=== PATIENT | female | born 1950 | race Caucasian/White ===

== ENCOUNTER 2022-08-16 17:28 | Inpatient (IN) ==
[2022-08-16] MEDS ORDERED: SODIUM CHLORIDE 0.9% 1000ML 1,000 ML IV STA (18:24)
[2022-08-16] MEDS ORDERED: LORazepam 2 MG/1 ML VIAL IV STA (18:26)
--- NOTE | 2022-08-16 18:28 | Emergency Department Note ---
Impression & Plan Acute UTI ADMIT ED Provider Note HPI: The patient is a 72-year-old female who presents emergency department with a chief complaint of rapid weight loss over the past month, nausea, weakness, dizziness, and tremulousness. Patient states that her symptoms have been ongo ing for the past month. She states that she has seen multiple providers previously for this but symptoms have continued. Patient is very anxious appearing on arrival, she states she has chest pain and shortness of breath but states that she "always" has chest pain or shortness of breath for many years. Patient states she does have a history of a thyroidectomy but has been taking her levothyroxine as prescribed. On arrival here to the ED the patient is hemodynamically stable, she is afebrile on presentation, she exhibits pressured speech, she is very anxious appearing, she is saturating well on room air on my initial assessment. ROS: - Per HPI *Outpatient medications and allergy history reviewed. *Pertinent external medical records reviewed. PE: General: Alert, cachectic appearing HEENT: Normocephalic, trachea midline Eyes: Extraocular eye movement is intact, no scleral erythema, bilateral exophthalmos noted Pulmonary: Clear to auscultation bilaterally, no wheezing Cardio: Regular rate and rhythm GI: Abdomen is soft to palpation : No suprapubic tenderness MSK: No evidence of trauma or malformation of the extremities, no edema Skin: No evidence of rash Neuro: Alert, no focal deficits Psychiatric: Cooperative property assessment monitor: (As interpreted by myself): - An order was placed for continuous cardiac monitoring - Patient was noted to be in sinus rhythm with rate of 90 EKG: (As interpreted by myself): Rate: 63 Rhythm: Sinus rhythm Intervals: MT interval 202 ms, otherwise within normal limits ST changes: No ST elevation Time: 1904 Interventions provided in ED: -IV fluid bolus, IV ceftriaxone, IV Ativan Differential Diagnosis: Hypothyroidism, anxiety attack, urinary tract infection, intra-abdominal mass/metastatic disease, acute bacterial pneumonia, acute CHF exacerbation, acute coronary syndrome, amongst other potential pathologies. Medical Decision Making: Shortly after the patient arrived IV was established lab work obtained, patient was maintained on engine monitor, lab work showed no leukocytosis, hemoglobin is normal at 14.8, platelet count also within normal limits, CMP does not show any critical findings, no acute kidney injury, total creatinine kinase level is elevated at 541, high-sensitivity troponin is slightly elevated at 17.5. TSH is also noted to be elevated at 24.7, free T4 is within normal limits. Urinalysis does show evidence of infection with nitrite positive and leukocyte esterase positive. Patient was placed on IV ceftriaxone and blood cultures were ordered. CT imaging of the head shows no acute process, CT imaging of the abdomen pelvis shows evidence of severe right-sided hydronephrosis however no obvious point of obstruction. No kidney stone is noted. Chest x-ray does not show any evidence of acute disease. Patient requested admission and given her lab abnormalities and urinary tract infection as well as CT imaging findings I thought this was reasonable. She was started on IV antibiotics and case was discussed with the on-call hospitalist for [facility], Dr. Aguirre, and the patient was placed for admission in stable condition. Consultants: HospitalistDr. Aguirre Disposition discussion held by myself with: Patient and at bedside Diagnosis: 1. Urinary tract infection, acute 2. Right-sided hydronephrosis on CT image 3. Rhabdomyolysis 4. Rapid weight loss 5. Elevated TSH 6. Elevated high-sensitivity troponin level, mild Disposition: Admission Donell Lofton DO Emergency Medicine Past Med/Surg History Medical History COPD (chronic obstructive pulmonary disease) Hypothyroid Vitamin D deficiency Social History Smoking Status: Never smoker Tobacco Type: Cigarettes Preferred Language: Croatian Feels Safe at Home: Yes Allergies Allergies Allergy/AdvReac Type Severity Reaction Status Date / Time morphine Allergy Unknown shock, Verified 08/16/22 21:19 dspnea Home Meds Home Medications Medication Instructions Recorded Confirmed levothyroxine 75 mcg tablet 75 mcg PO QAM 07/24/22 08/16/22 famotidine 40 mg tablet 40 mg PO HS 08/16/22 08/16/22 omeprazole 20 mg capsule,delayed 40 mg PO QAM 08/16/22 08/16/22 release Previous Rx's Medication Instructions Recorded dicyclomine 10 mg capsule 10 mg PO TID PRN abdominal pain 07/24/22 #20 caps Results & Data (ED) Vital Signs Vital Signs - 24 hr 08/16/22 17:33 08/16/22 20:06 08/16/22 19:24 Temperature 36.5 C Temperature Source Temporal Artery Scan Pulse Rate 63 64 Pulse Rate [Apical] 72 Pulse Rhythm Regular Respiratory Rate 20 18 Respiratory Effort / Characteristics Non-Labored Spontaneous Respiratory Depth Normal Blood Pressure 121/86 Blood Pressure [Right Arm] 152/85 H Blood Pressure Mean 97 Blood Pressure Mean [Right Arm] 107 Pulse Oximetry 98 Oxygen Delivery Method Room Air Sepsis Recent Fever Within 48 Hours No Sepsis New/Unexplained Change in Mental Status No Sepsis Action Taken by Nursing No Action Required 08/16/22 20:41 08/16/22 20:42 08/16/22 22:26 Temperature Temperature Source Pulse Rate 56 L Pulse Rate [Apical] 54 L 76 Pulse Rhythm Respiratory Rate 16 16 18 Respiratory Effort / Characteristics Respiratory Depth Blood Pressure Blood Pressure [Right Arm] 151/93 H 148/105 H Blood Pressure Mean Blood Pressure Mean [Right Arm] 112 119 Pulse Oximetry 99 99 100 Oxygen Delivery Method Room Air Room Air Room Air Sepsis Recent Fever Within 48 Hours Sepsis New/Unexplained Change in Mental Status Sepsis Action Taken by Nursing 08/16/22 23:23 Temperature Temperature Source Pulse Rate Pulse Rate [Apical] 85 Pulse Rhythm Respiratory Rate 16 Respiratory Effort / Characteristics Respiratory Depth Blood Pressure Blood Pressure [Right Arm] 155/104 H Blood Pressure Mean Blood Pressure Mean [Right Arm] 121 Pulse Oximetry 100 Oxygen Delivery Method Room Air Sepsis Recent Fever Within 48 Hours Sepsis New/Unexplained Change in Mental Status Sepsis Action Taken by Nursing Laboratory Data 08/16/22 19:31 08/16/22 19:31 Lab Results 08/16/22 08/16/22 08/16/22 Range/Units 19:31 19:31 19:31 WBC 5.83 (4.8-10.8) K/ul RBC 4.89 (4.20-5.40) M/uL Hgb 14.8 (12.0-16.0) g/dl Hct 42.8 (37.0-47.0) % MCV 87.5 (80.0-100.0) fL MCH 30.3 (25.0-34.0) pg MCHC 34.6 (32.0-36.0) g/dL RDW Std Deviation 42.5 (36.4-46.3) fL RDW Coeff of Minal 13.2 (11.5-14.5) % Plt Count 170 (130-400) K/uL MPV 9.9 (9.4-12.4) fL Immature Gran % (Auto) 0.2 % Neut % (Auto) 80.9 % Lymph % (Auto) 14.1 % [place] % (Auto) 4.6 % Eos % (Auto) 0.0 % Baso % (Auto) 0.2 % Neut # (Auto) 4.72 (1.40-6.50) K/uL Lymph # (Auto) 0.82 L (1.2-3.4) K/uL [place] # (Auto) 0.27 (0.11-0.59) K/uL Eos # (Auto) 0.00 (0-0.50) K/uL Baso # (Auto) 0.01 (0-0.2) K/uL Immature Gran # (Auto) 0.01 (0.01-0.20) K/uL PT 11.5 (9.0-12.0) Seconds INR 1.1 (0.9-1.1) Sodium (136-145) mmol/L Potassium (3.5-5.1) mmol/L Chloride (98-107) mmol/L Carbon Dioxide (21-32) mmol/L Anion Gap (3-11) BUN (6-23) mg/dl Creatinine (0.6-1.2) mg/dl Est Cr Clr Drug Dosing ml/min Est GFR ( Amer) ml/min Est GFR (Non-Af Amer) ml/min BUN/Creatinine Ratio (10-20) Glucose (70-99(Fasting)) mg/dl Lactate (0.4-2.0) mmol/L Calcium (8.6-10.3) mg/dl Total Bilirubin (0.2-1.0) mg/dl AST (13-39) U/L ALT (7-52) U/L Alkaline Phosphatase (34-104) U/L Total Creatine Kinase (26-192) U/L Troponin I High Sens (0-14) pg/ml Total Protein (6.0-8.3) gm/dl Albumin (3.4-5.0) gm/dl Globulin (2.5-4.0) gm/dl Albumin/Globulin Ratio (0.9-2) Lipase (11-82) U/L TSH 24.787 H (0.300-4.500) uIu/ml Free T4 0.92 (0.61-1.60) ng/dl Urine Color Urine Appearance (Clear) Urine pH (4.5-7.5) Ur Specific Backus (1.000-1.030) Urine Protein (Negative) Urine Glucose (UA) (Negative) Urine Ketones (Negative) Urine Blood (Negative) Urine Nitrite (Negative) Urine Bilirubin (Negative) Urine Urobilinogen (Negative) Ur Leukocyte Esterase (Negative) Urine WBC (Auto) (0-5) /hpf Urine RBC (Auto) (0-4) /hpf U Hyaline Cast (Auto) (0-5) /lpf U Epithel Cells (Auto) (0-5) /lpf Urine Bacteria (Auto) (Negative) Urine Crystals Triple Phos Crystals (None Prsent) SARS-CoV-2 (PCR) (Negative) Influenza Type A (PCR) (Neg) Influenza Type B (PCR) (Neg) RSV (RT-PCR) (Neg) 08/16/22 08/16/22 08/16/22 Range/Units 19:31 19:31 19:39 WBC (4.8-10.8) K/ul RBC (4.20-5.40) M/uL Hgb (12.0-16.0) g/dl Hct (37.0-47.0) % MCV (80.0-100.0) fL MCH (25.0-34.0) pg MCHC (32.0-36.0) g/dL RDW Std Deviation (36.4-46.3) fL RDW Coeff of Minal (11.5-14.5) % Plt Count (130-400) K/uL MPV (9.4-12.4) fL Immature Gran % (Auto) % Neut % (Auto) % Lymph % (Auto) % [place] % (Auto) % Eos % (Auto) % Baso % (Auto) % Neut # (Auto) (1.40-6.50) K/uL Lymph # (Auto) (1.2-3.4) K/uL [place] # (Auto) (0.11-0.59) K/uL Eos # (Auto) (0-0.50) K/uL Baso # (Auto) (0-0.2) K/uL Immature Gran # (Auto) (0.01-0.20) K/uL PT (9.0-12.0) Seconds INR (0.9-1.1) Sodium 139 (136-145) mmol/L Potassium 3.8 (3.5-5.1) mmol/L Chloride 103 (98-107) mmol/L Carbon Dioxide 29 (21-32) mmol/L Anion Gap 7 (3-11) BUN 32 H (6-23) mg/dl Creatinine 0.89 (0.6-1.2) mg/dl Est Cr Clr Drug Dosing 37.3 ml/min Est GFR ( Amer) 75.0 ml/min Est GFR (Non-Af Amer) 64.7 ml/min BUN/Creatinine Ratio 36.0 H (10-20) Glucose 72 (70-99(Fasting)) mg/dl Lactate 0.9 (0.4-2.0) mmol/L Calcium 9.1 (8.6-10.3) mg/dl Total Bilirubin 1.5 H (0.2-1.0) mg/dl AST 37 (13-39) U/L ALT 38 (7-52) U/L Alkaline Phosphatase 39 (34-104) U/L Total Creatine Kinase 541 H (26-192) U/L Troponin I High Sens 17.5 H (0-14) pg/ml Total Protein 6.2 (6.0-8.3) gm/dl Albumin 4.0 (3.4-5.0) gm/dl Globulin 2.2 L (2.5-4.0) gm/dl Albumin/Globulin Ratio 1.8 (0.9-2) Lipase 11 (11-82) U/L TSH (0.300-4.500) uIu/ml Free T4 (0.61-1.60) ng/dl Urine Color Yellow Urine Appearance Cloudy A (Clear) Urine pH 5.0 (4.5-7.5) Ur Specific Backus > 1.045 H (1.000-1.030) Urine Protein Trace H (Negative) Urine Glucose (UA) Negative (Negative) Urine Ketones 1+ H (Negative) Urine Blood 2+ H (Negative) Urine Nitrite Positive A (Negative) Urine Bilirubin Negative (Negative) Urine Urobilinogen Negative (Negative) Ur Leukocyte Esterase 1+ H (Negative) Urine WBC (Auto) 10-30 H (0-5) /hpf Urine RBC (Auto) 0-4 (0-4) /hpf U Hyaline Cast (Auto) 5-10 H (0-5) /lpf U Epithel Cells (Auto) 5-10 H (0-5) /lpf Urine Bacteria (Auto) 2+ H (Negative) Urine Crystals Not Reportable Triple Phos Crystals Present A (None Prsent) SARS-CoV-2 (PCR) (Negative) Influenza Type A (PCR) (Neg) Influenza Type B (PCR) (Neg) RSV (RT-PCR) (Neg) 08/16/22 Range/Units 21:55 WBC (4.8-10.8) K/ul RBC (4.20-5.40) M/uL Hgb (12.0-16.0) g/dl Hct (37.0-47.0) % MCV (80.0-100.0) fL MCH (25.0-34.0) pg MCHC (32.0-36.0) g/dL RDW Std Deviation (36.4-46.3) fL RDW Coeff of Minal (11.5-14.5) % Plt Count (130-400) K/uL MPV (9.4-12.4) fL Immature Gran % (Auto) % Neut % (Auto) % Lymph % (Auto) % [place] % (Auto) % Eos % (Auto) % Baso % (Auto) % Neut # (Auto) (1.40-6.50) K/uL Lymph # (Auto) (1.2-3.4) K/uL [place] # (Auto) (0.11-0.59) K/uL Eos # (Auto) (0-0.50) K/uL Baso # (Auto) (0-0.2) K/uL Immature Gran # (Auto) (0.01-0.20) K/uL PT (9.0-12.0) Seconds INR (0.9-1.1) Sodium (136-145) mmol/L Potassium (3.5-5.1) mmol/L Chloride (98-107) mmol/L Carbon Dioxide (21-32) mmol/L Anion Gap (3-11) BUN (6-23) mg/dl Creatinine (0.6-1.2) mg/dl Est Cr Clr Drug Dosing ml/min Est GFR ( Amer) ml/min Est GFR (Non-Af Amer) ml/min BUN/Creatinine Ratio (10-20) Glucose (70-99(Fasting)) mg/dl Lactate (0.4-2.0) mmol/L Calcium (8.6-10.3) mg/dl Total Bilirubin (0.2-1.0) mg/dl AST (13-39) U/L ALT (7-52) U/L Alkaline Phosphatase (34-104) U/L Total Creatine Kinase (26-192) U/L Troponin I High Sens (0-14) pg/ml Total Protein (6.0-8.3) gm/dl Albumin (3.4-5.0) gm/dl Globulin (2.5-4.0) gm/dl Albumin/Globulin Ratio (0.9-2) Lipase (11-82) U/L TSH (0.300-4.500) uIu/ml Free T4 (0.61-1.60) ng/dl Urine Color Urine Appearance (Clear) Urine pH (4.5-7.5) Ur Specific Backus (1.000-1.030) Urine Protein (Negative) Urine Glucose (UA) (Negative) Urine Ketones (Negative) Urine Blood (Negative) Urine Nitrite (Negative) Urine Bilirubin (Negative) Urine Urobilinogen (Negative) Ur Leukocyte Esterase (Negative) Urine WBC (Auto) (0-5) /hpf Urine RBC (Auto) (0-4) /hpf U Hyaline Cast (Auto) (0-5) /lpf U Epithel Cells (Auto) (0-5) /lpf Urine Bacteria (Auto) (Negative) Urine Crystals Triple Phos Crystals (None Prsent) SARS-CoV-2 (PCR) NEGATIVE (Negative) Influenza Type A (PCR) Negative (Neg) Influenza Type B (PCR) Negative (Neg) RSV (RT-PCR) Negative (Neg) Administered Medications Discontinued Medications Sodium Chloride (Nss 1000ml) 1,000 mls @ 999 mls/hr IV .Q1H1M STA Stop: 08/16/22 19:24 Last Infusion: 08/16/22 21:43 Dose: 0 mls/hr Documented By: Admin: 08/16/22 20:36 Dose: 999 mls/hr Documented By: BRANDON Ceftriaxone Sodium 1,000 mg/ (Dextrose) 50 mls @ 100 mls/hr IV NOW STA Stop: 08/16/22 22:13 Last Infusion: 08/16/22 23:21 Dose: 0 mls/hr Documented By: Admin: 08/16/22 22:23 Dose: 100 mls/hr Documented By: BRANDON Sodium Chloride (Nss 1000ml) 1,000 mls @ 999 mls/hr IV .Q1H1M ONE Stop: 08/16/22 22:45 Last Infusion: 08/16/22 23:21 Dose: 0 mls/hr Documented By: Admin: 08/16/22 21:59 Dose: 999 mls/hr Documented By: BRANDON Ioversol (Optiray 320 100ml) 90 ml IV ONCE ONE Stop: 08/16/22 21:35 Last Admin: 08/16/22 21:36 Dose: 90 ml Documented By: PADMINI Levothyroxine Sodium (Levothyroxine Sodium 75 Mcg Tablet) 75 mcg PO ONCE ONE Stop: 08/16/22 21:47 Last Admin: 08/16/22 21:48 Dose: Not Given Documented By: BRANDON Lorazepam (Lorazepam 2 Mg/1 Ml Vial) 0.5 mg IV NOW STA Stop: 08/16/22 18:27 Last Admin: 08/16/22 19:27 Dose: Not Given Documented By: BRANDON Imaging Data Radiologist's Impression: Abdomen/Pelvis CT 08/16/22 18:24 Exam(s): CT ABDOMEN + PELVIS With Contrast IV Amt: 90 ML OPTIRAY 320 EXAM: CT Abdomen and Pelvis With Intravenous Contrast CLINICAL HISTORY: Reason for exam: nausea, weight loss. TECHNIQUE: Axial computed tomography images of the abdomen and pelvis with intravenous contrast. CTDI is 35.37 mGy and DLP is 546.36 mGy-cm. Automated exposure control was utilized for the study. A dose lowering technique was utilized adhering to the principles of ALARA. CONTRAST: Patient received 90 ML OPTIRAY 320 of IV contrast COMPARISON: No relevant prior studies available. FINDINGS: Lung bases: Unremarkable. No mass. No consolidation. ABDOMEN: Liver: Mild periportal edema. Correlate for overhydration (the IVC is distended) versus hepatitis. Gallbladder and bile ducts: Unremarkable. No calcified stones. No ductal dilation. Pancreas: Unremarkable. No mass. No ductal dilation. Spleen: Unremarkable. No splenomegaly. Adrenals: Unremarkable. No mass. Kidneys and ureters: Severe right-sided hydronephrosis. No definite obstruction of the ureter. Consider CT urogram protocol for further evaluation, if clinically indicated. Stomach and bowel: Wall thickening of small bowel in the pelvis, correlate for enteritis. Diverticulosis, without acute diverticulitis. No small bowel obstruction. No free air. PELVIS: Appendix: No findings to suggest acute appendicitis. Bladder: Unremarkable. No mass. Reproductive: Unremarkable as visualized. ABDOMEN and PELVIS: Intraperitoneal space: See above. Bones/joints: Degenerative changes of the spine. No acute fracture. No dislocation. Soft tissues: See above. Vasculature: Atherosclerotic changes of the aorta. Lymph nodes: Unremarkable. No enlarged lymph nodes. IMPRESSION: 1. Mild periportal edema. Correlate for overhydration (the IVC is distended) versus hepatitis. 2. Severe right-sided hydronephrosis. No definite obstruction of the ureter. Consider CT urogram protocol for further evaluation, if clinically indicated. 3. Wall thickening of small bowel in the pelvis, correlate for enteritis. 4. Diverticulosis, without acute diverticulitis. No small bowel obstruction. No free air. Electronically signed by: Yvon Hastings MD 08/16/22 21:59 PM Chest X-Ray 08/16/22 18:25 XR chest 1V portable CLINICAL HISTORY: fatigue, weight loss TECHNIQUE: Single frontal radiograph of the chest was obtained. Comparison: Comparison is made to chest radiograph 08/04/2017 FINDINGS: No lines and tubes are seen. Calcified aortic knob is seen. The lungs are clear. No evidence of pleural effusion or pneumothorax. IMPRESSION: No acute chest disease. ACT 112: Negative or not required by law. Electronically signed by: Trent Woodruff M.D. 08/16/2022 7:[address] 08/16/22 18:26 Exam(s): CT HEAD Without Contrast EXAM: CT Head Without Intravenous Contrast CLINICAL HISTORY: Reason for exam: weakness, dizzy. TECHNIQUE: Axial computed tomography images of the head/brain without intravenous contrast. CTDI is 35.37 mGy and DLP is 546.36 mGy-cm. Automated exposure control was utilized for the study. A dose lowering technique was utilized adhering to the principles of ALARA. COMPARISON: No relevant prior studies available. FINDINGS: No acute intracranial hemorrhage. No midline shift or mass effect. The territorial obrien-white matter differentiation is maintained throughout. Age-related cerebral volume loss. Periventricular and subcortical white matter hypoattenuation, consistent with chronic microangiopathy. The visualized orbits appear grossly unremarkable. The calvarium is intact. The visualized paranasal sinuses and mastoid air cells are grossly clear. IMPRESSION: No acute intracranial hemorrhage, midline shift, or mass effect. Electronically signed by: Yvon Hastings MD 08/16/22 21:55 PM Discharge Plan Visit Data Chief Complaint: Dizziness Stated Complaint: REF BY DOC, DIZZINESS,OFF BALANCE, BLURRED VISION ED Provider: Donell Lofton Discharge Problem: Acute UTI Forms Stand Alone Forms: Counts Include [facility] Prescriptions Prescriptions: No Action famotidine 40 mg tablet 40 mg PO HS omeprazole 20 mg capsule,delayed release(DR/EC) 40 mg PO QAM levothyroxine 75 mcg tablet 75 mcg PO QAM dicyclomine 10 mg capsule 10 mg PO TID PRN (Reason: abdominal pain) Qty: 20 0RF Referrals Referrals: Hayes Maurer DO [Primary Care Provider] -
--- NOTE | 2022-08-16 19:13 | XRay Report ---
XR chest 1V portable CLINICAL HISTORY: fatigue, weight loss TECHNIQUE: Single frontal radiograph of the chest was obtained. Comparison: Comparison is made to chest radiograph 08/04/2017 FINDINGS: No lines and tubes are seen. Calcified aortic knob is seen. The lungs are clear. No evidence of pleur al effusion or pneumothorax. IMPRESSION: No acute chest disease. ACT 112: Negative or not required by law. Electronically signed by: Trent Woodruff M.D. 08/16/2022 7:12 PM
[2022-08-16 19:51] LABS: Basophils # (auto) 0.01 K/uL (0-0.2); Basophils % (auto) 0.2 %; Hematocrit (blood only) 42.8 % (37.0-47.0); Hemoglobin 14.8 g/dl (12.0-16.0); Immature Granulocytes # (auto) 0.01 K/uL (0.01-0.20); Immature Granulocytes % (auto) 0.2 %; Lymphocytes # (auto) 0.82 K/uL (1.2-3.4); Lymphocytes % (auto) 14.1 %; Mean Corpuscular Hemoglobin 30.3 pg (25.0-34.0); Mean Corpuscular Hgb Conc 34.6 g/dL (32.0-36.0); Mean Corpuscular Volume 87.5 fL (80.0-100.0); Mean Platelet Volume 9.9 fL (9.4-12.4); Monocytes # (auto) 0.27 K/uL (0.11-0.59); Monocytes % (auto) 4.6 %; Neutrophils # (auto) 4.72 K/uL (1.40-6.50); Neutrophils % (auto) 80.9 %; Platelet Count 170 K/uL (130-400); RDW Coefficient of Variation 13.2 % (11.5-14.5); RDW Standard Deviation 42.5 fL (36.4-46.3); Red Blood Count 4.89 M/uL (4.20-5.40); White Blood Count 5.83 K/ul (4.8-10.8)
[2022-08-16 20:07] LABS: Appearance Urine Cloudy (Clear); Bacteria Urine Automated 2+ (Negative); Bilirubin Urine Negative (Negative); Blood Urine 2+ (Negative); Color Urine Yellow; Glucose Urine UA Negative (Negative); Ketones Urine 1+ (Negative); Leukocyte Esterase Urine 1+ (Negative); Nitrite Urine Positive (Negative); Protein Urine Trace (Negative); RBC Urine Automated 0-4 /hpf (0-4); Specific Gravity Urine > 1.045 (1.000-1.030); Urobilinogen Urine Negative (Negative)
[2022-08-16 20:08] LABS: Albumin Globulin Ratio 1.8 (0.9-2); Bilirubin,Total 1.5 mg/dl (0.2-1.0); Calcium 9.1 mg/dl (8.6-10.3); Creatinine Clr Calc Pharmacy 37.3 ml/min; Est GFR (Non-African American) 64.7 ml/min; Globulin 2.2 gm/dl (2.5-4.0); Potassium 3.8 mmol/L (3.5-5.1); Total Protein 6.2 gm/dl (6.0-8.3)
[2022-08-16 20:15] LABS: Troponin I High Sensitivity 17.5 pg/ml (0-14)
[2022-08-16 20:21] LABS: INR 1.1 (0.9-1.1); Prothrombin Time 11.5 Seconds (9.0-12.0)
[2022-08-16 20:23] LABS: Thyroid Stimulating Hormone 24.787 uIu/ml (0.300-4.500)
[2022-08-16 20:31] LABS: Triple Phosphate Crystal Urine Present (None Prsent)
[2022-08-16 20:58] LABS: T4 Free Thyroxine 0.92 ng/dl (0.61-1.60)
[2022-08-16] MEDS ORDERED: OPTIRAY 320 100ml IV ONE (21:34)
[2022-08-16] MEDS ORDERED: cefTRIAXone SODIUM 1,000 MG in DEXTROSE 5% AD-VAN 50 ML IV STA (21:44)
[2022-08-16] MEDS ORDERED: SODIUM CHLORIDE 0.9% 1000ML 1,000 ML IV ONE (21:45)
[2022-08-16] MEDS ORDERED: LEVOTHYROXINE SODIUM 75 MCG TABLET PO ONE (21:46)
--- NOTE | 2022-08-16 21:56 | CT Scan Report ---
Exam(s): CT HEAD Without Contrast EXAM: CT Head Without Intravenous Contrast CLINICAL HISTORY: Reason for exam: weakness, dizzy. TECHNIQUE: Axial computed tomography images of the head/brain without intravenous contrast. CTDI is 35.37 mGy and DLP is 546.36 mGy-cm. Automated exposure control was utilized for the study. A dose lowering technique was utilized adhering to the principles of ALARA. COMPARISON: No relevant prior studies available. FINDINGS: No acute intracranial hemorrhage. No midline shift or mass effect. The territorial obrien-white matter differentiation is maintained throughout. Age-related cerebral volume loss. Periventricular and subcortical white matter hypoattenuation, consistent with chronic microangiopathy. The visualized orbits appear grossly unremarkable. The calvarium is intact. The visualized paranasal sinuses and mastoid air cells are grossly clear. IMPRESSION: No acute intracranial hemorrhage, midline shift, or mass effect. Electronically signed by: Yvon Hastings MD 08/16/22 21:55 PM
--- NOTE | 2022-08-16 22:00 | CT Scan Report ---
Exam(s): CT ABDOMEN + PELVIS With Contrast IV Amt: 90 ML OPTIRAY 320 EXAM: CT Abdomen and Pelvis With Intravenous Contrast CLINICAL HISTORY: Reason for exam: nausea, weight loss. TECHNIQUE: Axial computed tomography images of the abdomen and pelvis with intravenous contrast. CTDI is 35.37 mGy and DLP is 546.36 mGy-cm. Automated exposure control was utilized for the study. A dose lowering technique was utilized adhering to the principles of ALARA. CONTRAST: Patient received 90 ML OPTIRAY 320 of IV contrast COMPARISON: No relevant prior studies available. FINDINGS: Lung bases: Unremarkable. No mass. No consolidation. ABDOMEN: Liver: Mild periportal edema. Correlate for overhydration (the IVC is distended) versus hepatitis. Gallbladder and bile ducts: Unremarkable. No calcified stones. No ductal dilation. Pancreas: Unremarkable. No mass. No ductal dilation. Spleen: Unremarkable. No splenomegaly. Adrenals: Unremarkable. No mass. Kidneys and ureters: Severe right-sided hydronephrosis. No definite obstruction of the ureter. Consider CT urogram protocol for further evaluation, if clinically indicated. Stomach and bowel: Wall thickening of small bowel in the pelvis, correlate for enteritis. Diverticulosis, without acute diverticulitis. No small bowel obstruction. No free air. PELVIS: Appendix: No findings to suggest acute appendicitis. Bladder: Unremarkable. No mass. Reproductive: Unremarkable as visualized. ABDOMEN and PELVIS: Intraperitoneal space: See above. Bones/joints: Degenerative changes of the spine. No acute fracture. No dislocation. Soft tissues: See above. Vasculature: Atherosclerotic changes of the aorta. Lymph nodes: Unremarkable. No enlarged lymph nodes. IMPRESSION: 1. Mild periportal edema. Correlate for overhydration (the IVC is distended) versus hepatitis. 2. Severe right-sided hydronephrosis. No definite obstruction of the ureter. Consider CT urogram protocol for further evaluation, if clinically indicated. 3. Wall thickening of small bowel in the pelvis, correlate for enteritis. 4. Diverticulosis, without acute diverticulitis. No small bowel obstruction. No free air. Electronically signed by: Yvon Hastings MD 08/16/22 21:59 PM
[2022-08-16 22:45] LABS: Influenza A virus by PCR Negative (Neg); Influenza B virus by PCR Negative (Neg); RSV by PCR Negative (Neg); SARS CoV2 RNA(COVID-19) Ceph NEGATIVE (Negative)
[2022-08-17] MEDS ORDERED: ACETAMINOPHEN 325 MG TAB PO PRN (00:56)
[2022-08-17] MEDS ORDERED: NITROGLYCERIN SL 0.4 MG/TAB TAB SL PRN (00:56)
[2022-08-17] MEDS ORDERED: DICYCLOMINE HCL 10 MG CAP PO PRN (00:56)
[2022-08-17] MEDS: SODIUM CHLORIDE 0.9% 1000ML 1,000 ML IV SCH ×2 (01:06→10:57)
--- NOTE | 2022-08-17 01:56 | History and Physical Report ---
DATE OF ADMISSION: 08/16/2022. CHIEF COMPLAINT: Dizziness, falls, numbness in the hands and legs. HISTORY OF PRESENT ILLNESS: A 72-year-old female with past medical history significant for hypothyroidism, COPD, pulmonary hypertension, osteoporosis, history of positive colorectal cancer screening using Cologuard test, history of colon polyps, had colonoscopy in 2017 for positive test and at that time it was okay and planned to repeat colonoscopy in 5 years. Comes because the patient says since last 1 month, she is losing lot of weight and she is having poor appetite and numbness in the hands and legs and decreased sensation from the waist down and also she says on and off constipation and diarrhea and when she has diarrhea, she is sometimes having no control, and normal bladder movements, no bladder incontinence. She is feeling dizzy. Because she could not feel much of the feet, so she is falling frequently, sometimes crawls on the steps. As she was not getting better and does not know what is going on, she came to the hospital. She was seen by PCP on 07/28/2022 for abdominal pain and weight loss. ad EGD recently 07/19/22 done, which showed grade III reflux esophagitis and also signs of gastritis. She was given Carafate 1 gram 4 times daily, omeprazole 40 mg p.o. daily. She had CTA abd/pelvis on 08/16/22to rule out SMA syndrome,, the results are not back yet. Also plan for urology consult because of right kidney pelvocaliectasis. The patient says since last 1 week, she did not smoke, denies any alcohol use. She also had CT chest in June and it was unremarkable. The patient is worried about something going on and she wants to come back to normal. Appetite is poor. Denies any headache. The vision is okay. No runny nose, no sore throat. Occasional cough and when she has cough and she brings phlegm, she feels short of breath. Denies any earaches. No nausea, no abdominal pain. Currently resting comfortably. Somewhat upset because of this weight loss and became very thin and frail. Hemodynamically stable. ALLERGIES: MORPHINE, NEOMYCIN. PAST MEDICAL HISTORY: As mentioned above. PAST SURGICAL HISTORY: Colonoscopy with biopsy, EGD, EGD with biopsy, laparoscopy of pelvis, removal of thyroid gland, spinal fusion surgery. MEDICATIONS: The patient is on dicyclomine 10 mg p.o. t.i.d. p.r.n., famotidine 40 mg p.o. at bedtime, levothyroxine 75 mcg p.o. daily, omeprazole 40 mg p.o. daily. FAMILY HISTORY: Significant for paternal aunt has breast cancer; mother had uterine cancer, hypothyroidism, Crohn's disease; father had hypertension; sister has rheumatoid arthritis. SOCIAL HISTORY: . Smokes half pack a day for the last 37 years, says quit about week ago. Denies any alcohol use. No drug use. REVIEW OF SYSTEMS: As per HPI. Rest of the review of systems is negative. PHYSICAL EXAMINATION: GENERAL: The patient is thin and frail, not in acute distress. VITAL SIGNS: Temperature 36.5, pulse 72, respiratory rate 16, blood pressure 144/99, oxygen 97% on room air. HEENT: Pupils equal, round and reactive to light. Oral mucosa moist. NECK: No JVD. No neck masses. CARDIOVASCULAR: S1 and S2 heard. Regular rate and rhythm. No murmur, no gallop. RESPIRATORY SYSTEM: Normal AP diameter. No accessory muscle use. No wheezing or crackles. ABDOMEN: Soft, bowel sounds present, nontender, no distention. CENTRAL NERVOUS SYSTEM: Alert and oriented. Speech is clear. No facial droop. Obeys simple commands. Power 2/5 in upper extremities and 1/5 in lower extremities. Sensation decreased in lower extremities. EXTREMITIES: No edema, no erythema. LABORATORY DATA: WBC 5.8, hemoglobin 14.8, hematocrit 42.8, platelets 170. PT 11.5, INR 1.5. Sodium 139, potassium 3.8, chloride 103, bicarbonate 29, BUN 32, creatinine 0.8, serum glucose 75. Lactate 0.9, calcium 9.1, total bilirubin 1.5, AST 37, ALT 38, alkaline phosphatase 39, total creatine kinase 541. Troponin I high sensitivity 17.5. Lipase 11, TSH 24.8, free T4 of 0.92. Urinalysis positive for nitrite, +1 leukocyte esterase, +2 bacteria. SARS-CoV-2 rapid test negative. Influenza A and B PCR negative. RSV PCR negative. IMAGING DATA: CT of the head without contrast shows no acute findings. Chest x-ray, no acute disease in the chest. CT abdomen and pelvis with IV contrast shows some mild periportal edema. Correlate for overhydration versus hepatitis. Severe right-sided hydronephrosis. Wall thickening of small bowel in the pelvis, correlate for enteritis. Diverticulosis without acute diverticulitis, small bowel obstruction. EKG: Sinus rhythm with marked sinus arrhythmia at a rate of 53, nonspecific T- wave abnormalities. ASSESSMENT AND PLAN: This is a 72-year-old female who presents with ongoing weight loss since last about a month, numbness in the hands and feet and also some decreased sensation from waist down and falling frequently and weight loss. 1. Dizziness: Decreased sensation in the extremities, numbness in the hands and feet and decreased sensation below the waist. Falls frequently. CT of the head is okay. Will get neuro evaluation . PT/OT. Closely monitor in the hospital. 2. Weight loss, poor appetite: Labs look okay. Thyroid function is okay. CT abdomen and pelvis was done at [facility] system just today for rule out of SMA syndrome. Results are not back, will follow the results. Periportal edema on the CT scan done in the ER. Recently EGD was done, which showed grade III esophagitis. On omeprazole. Will consult GI for further recommendations. 3. Urinary tract infection: Placed on Rocephin. Follow the cultures. 4. Mild elevation of troponin, mostly demand ischemia: Follow the repeat labs. 5. Mild elevation of creatine kinase: Started on fluids. Will follow the repeat labs. 6. Hypothyroidism: History of thyroidectomy. On levothyroxine. TSH is higher at 24, but free T4 is normal. 7. History of chronic obstructive pulmonary disease: Tobacco abuse. Says quit smoking about a week ago. Currently stable. It looks like she is getting yearly CT scan of the chest, last one was done in June, which was unremarkable. 8. Deep venous thrombosis prophylaxis: Heparin subcutaneously. DISPOSITION: Closely monitor in the med tele. PT/OT prior to discharge. Social service to help with discharge planning. Job ID: [id number] [facility]
[2022-08-17] MEDS: LEVOTHYROXINE SODIUM 75 MCG TABLET PO SCH (05:58)
[2022-08-17 07:13] LABS: Basophils # (auto) 0.02 K/uL (0-0.2); Basophils % (auto) 0.3 %; Eosinophils # (auto) 0.05 K/uL (0-0.50); Eosinophils % (auto) 0.9 %; Hematocrit (blood only) 40.7 % (37.0-47.0); Hemoglobin 14.3 g/dl (12.0-16.0); Immature Granulocytes # (auto) 0.01 K/uL (0.01-0.20); Immature Granulocytes % (auto) 0.2 %; Lymphocytes # (auto) 1.09 K/uL (1.2-3.4); Lymphocytes % (auto) 18.9 %; Mean Corpuscular Hemoglobin 30.1 pg (25.0-34.0); Mean Corpuscular Hgb Conc 35.1 g/dL (32.0-36.0); Mean Corpuscular Volume 85.7 fL (80.0-100.0); Mean Platelet Volume 9.7 fL (9.4-12.4); Monocytes # (auto) 0.34 K/uL (0.11-0.59); Monocytes % (auto) 5.9 %; Neutrophils # (auto) 4.27 K/uL (1.40-6.50); Neutrophils % (auto) 73.8 %; Platelet Count 167 K/uL (130-400); RDW Standard Deviation 39.9 fL (36.4-46.3); Red Blood Count 4.75 M/uL (4.20-5.40); White Blood Count 5.78 K/ul (4.8-10.8)
[2022-08-17 07:27] LABS: BUN Creatinine Ratio 32.9 (10-20); Calcium 7.9 mg/dl (8.6-10.3); Creatinine Clr Calc Pharmacy 47.5 ml/min; Est GFR (African American) 100.3 ml/min; Est GFR (Non-African American) 86.6 ml/min; Magnesium 1.9 mg/dl (1.7-2.4); Potassium 3.1 mmol/L (3.5-5.1)
[2022-08-17 07:33] LABS: Troponin I High Sensitivity 22.1 pg/ml (0-14)
[2022-08-17] MEDS: HEPARIN SOD 5,000 UNIT/0.5 ML VIAL SQ SCH ×2 (08:28→21:44)
[2022-08-17] MEDS ORDERED: POTASSIUM CHLORIDE CRTAB 20 MEQ TABCR PO STA (08:53)
[2022-08-17] MEDS ORDERED: PANTOprazole 40 MG TAB PO SCH (09:00)
[2022-08-17] MEDS: POTASSIUM CHLORIDE / WTR 10 MEQ/100 ML PLCT IV SCH ×4 (09:31→13:52)
--- NOTE | 2022-08-17 09:47 | Gastrointestinal Consultation ---
Date of Consultation August 17, 2022 Assessment & Plan (1) Generalized weakness: 72 year old female w/ history of COPD, pulmonary HTN and others below admitted with abd pain, weakness, weight loss. Tbili 1.5 w/ normal transaminases, lipase normal and CBC unremarkable. CT w/ mild periportal edema, severe right-sided hydronephrosis, wall thickening of small bowel in the pelvis/enteritis, diverticulosis, without acute diverticulitis Consider repeat TSH, management per primary team Weakness, numbness/tingling, management per primary team Elevated Tbili, periportal edema - Acute hepatitis panel Weight loss, bloating, change in BM - EGD 2022 reviewed - CT 2022 reviewed - OP CTA pending - Recommend colonoscopy - She will consider this - Last colonoscopy 2017 after a positive cologuard - Was not able to tolerate prep - Offers sutab but unable to swallow pills We appreciate assistance in the management of any serological abnormality and corrections to include: hemoglobin >7, INR <2, platelets >50,000, potassium levels >3.5 but <5.3, and sodium levels within 5 points of the reference range prior to endoscopic evaluation. Thank you for allowing us to participate in the care of this patient. Please call with any acute changes, questions or concerns. Please see addendum below with additional recommendation from my supervising physician. Supervising Physician Co-Signing Physician Notes Attending attestation I have seen, examined this patient, and agree with the findings and above by our mid-level provider FARTUN Villarreal, with the following additions: - Adm with neurological c/o. Reynaulds - TSH is dramatically high - Periportal edema non-specific - Recent EGD May with esophagitis - Would eval for rheum/endocrine causes of poor appetite/anorexia - Colonoscopy as oupt for weight loss History of Present Illness Reason for Consultation: weight loss, abnormal CT Requesting Physician: Steve Attending Physician: Aiyana Wilson MD History of Present Illness 72 year old female w/ history of COPD, pulmonary HTN and others below admitted with abd pain, weakness, weight loss - GI asked to evaluate. Pt notes that for about 1-2 months has had some change in BM, constipation, post-prandial bloating/fullness and decreased appetite. This has been associated with progressive weakness, fatigue. Has also had weight loss. Denies any black/bloody BMs. No report of vomiting or previous episodes of hematemesis or coffee ground emesis. She was seen as an OP by GI - had a CTA pending to rule out SMA. Report is still in process. Tmax 117 Current weight 91 CTAP 08/2022: Mild periportal edema. Correlate for overhydration (the IVC is distended) versus hepatitis. Severe right-sided hydronephrosis. No definite obstruction of the ureter. Consider CT urogram protocol for further evaluation, if clinically indicated.. Wall thickening of small bowel in the pelvis, correlate for enteritis. Diverticulosis, without acute diverticulitis. No small bowel obstruction. No free air. CTAP 07/2022: Malpositioned right kidney with pelvocaliectasis. Hydronephrosis is considered less likely. No acute abnormalities. EGD 2022: Sam Grade III reflux esophagitis. - Erythematous mucosa in the stomach. Biopsied. - Normal examined duodenum. Colonoscopy 2018: Non-thrombosed external hemorrhoids found on digital rectal exam. - The examined portion of the ileum was normal. - Moderate diverticulosis in the entire examined colon. - Internal hemorrhoids. - The examination was otherwise normal. - No specimens collected. Cologuard 2018: positive Colonoscopy 2007: Five 2 to 3 mm polyps in the distal sigmoid colon. Resected and retrieved. - No endoscopic evidence for IBD, biopsied - Moderate left sided diverticulosis EGD 2007: Mild duodenitis. - Bilious gastric fluid. Suspiscious for gastroparesis. 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 Biopsied for H Pylori. - Small hiatus hernia. - Normal esophagus. Family history of GI malignancy: mom with colon cancer in her 80's Allergies Allergy/AdvReac Type Severity Reaction Status Date / Time morphine Allergy Unknown shock, Verified 08/16/22 21:19 dspnea Home Medications Medication Instructions Recorded Confirmed Type dicyclomine 10 mg capsule 10 mg PO TID PRN abdominal pain 07/24/22 08/16/22 Rx #20 caps levothyroxine 75 mcg tablet 75 mcg PO QAM 07/24/22 08/16/22 History famotidine 40 mg tablet 40 mg PO HS 08/16/22 08/16/22 History omeprazole 20 mg capsule,delayed 40 mg PO QAM 08/16/22 08/16/22 History release Patient History Medical History COPD (chronic obstructive pulmonary disease) Hypothyroid Vitamin D deficiency Social History Smoking Status: Former smoker Tobacco Type: Cigarettes Cigarettes Per Day: 1 pack a week; Smoking End Date: 2 weeks go; Second Hand Exposure: Yes; Do You Dip or Chew Tobacco: No; Hx Alcohol Use: No Hx Substance Use: No Preferred Language: Cameroonian Communication Ability: Effective 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 Required: No Beliefs That Will Affect Care: None Current Living Situation: Spouse Feels Safe at Home: Yes Safety Concerns: Feels Safe At This Time Assistive Devices: Cane and Glasses Review of Systems Review of Systems: All systems reviewed & are unremarkable except as noted in HPI & below Physical Exam Constitutional: WD/WN, vitals as above Respiratory: normal respiratory effort, lungs clear to auscultation Cardiovascular: Rate/Rhythm: regular rate and regular rhythm Gastrointestinal (Abdomen): Inspection/Auscultation: abdomen normal to inspection and normal bowel sounds Percussion/Palpation: abdomen soft; abdomen nontender, no guarding and abdomen not rigid Skin: no rashes, warm and dry Results & Data Vital Signs (Past 12 Hours) Vital Signs Temp Pulse Pulse Resp BP Pulse Ox O2 Del Method 08/17/22 07:09 36.6 C 67 17 104/69 98 Room Air 08/17/22 07:00 67 08/17/22 00:56 74 08/17/22 03:28 36.7 C 65 16 118/74 98 Room Air 08/17/22 00:50 Room Air 08/17/22 00:50 36.5 C 71 16 167/108 H 98 Room Air 08/17/22 00:00 96 H 16 144/99 H 97 Room Air 08/17/22 00:03 72 08/16/22 23:23 85 16 155/104 H 100 Room Air 08/16/22 22:26 76 18 148/105 H 100 Room Air Laboratory Results 08/17/22 08/17/22 08/17/22 Range/Units 06:21 06:21 06:21 WBC 5.78 (4.8-10.8) K/ul RBC 4.75 (4.20-5.40) M/uL Hgb 14.3 (12.0-16.0) g/dl Hct 40.7 (37.0-47.0) % MCV 85.7 (80.0-100.0) fL MCH 30.1 (25.0-34.0) pg MCHC 35.1 (32.0-36.0) g/dL RDW Std Deviation 39.9 (36.4-46.3) fL RDW Coeff of Minal 13.0 (11.5-14.5) % Plt Count 167 (130-400) K/uL MPV 9.7 (9.4-12.4) fL Immature Gran % (Auto) 0.2 % Neut % (Auto) 73.8 % Lymph % (Auto) 18.9 % [place] % (Auto) 5.9 % Eos % (Auto) 0.9 % Baso % (Auto) 0.3 % Neut # (Auto) 4.27 (1.40-6.50) K/uL Lymph # (Auto) 1.09 L (1.2-3.4) K/uL [place] # (Auto) 0.34 (0.11-0.59) K/uL Eos # (Auto) 0.05 (0-0.50) K/uL Baso # (Auto) 0.02 (0-0.2) K/uL Immature Gran # (Auto) 0.01 (0.01-0.20) K/uL PT (9.0-12.0) Seconds INR (0.9-1.1) Sodium 139 (136-145) mmol/L Potassium 3.1 L (3.5-5.1) mmol/L Chloride 105 (98-107) mmol/L Carbon Dioxide 26 (21-32) mmol/L Anion Gap 8 (3-11) BUN 23 (6-23) mg/dl Creatinine 0.70 (0.6-1.2) mg/dl Est Cr Clr Drug Dosing 47.5 ml/min Est GFR ( Amer) 100.3 ml/min Est GFR (Non-Af Amer) 86.6 ml/min BUN/Creatinine Ratio 32.9 H (10-20) Glucose 57 L (70-99(Fasting)) mg/dl Lactate (0.4-2.0) mmol/L Calcium 7.9 L (8.6-10.3) mg/dl Magnesium 1.9 (1.7-2.4) mg/dl Total Bilirubin (0.2-1.0) mg/dl AST (13-39) U/L ALT (7-52) U/L Alkaline Phosphatase (34-104) U/L Total Creatine Kinase 353 H (26-192) U/L Troponin I High Sens 22.1 H (0-14) pg/ml Total Protein (6.0-8.3) gm/dl Albumin (3.4-5.0) gm/dl Globulin (2.5-4.0) gm/dl Albumin/Globulin Ratio (0.9-2) Lipase (11-82) U/L Vitamin B12 239 (180-914) pg/ml TSH (0.300-4.500) uIu/ml Free T4 (0.61-1.60) ng/dl Urine Color Urine Appearance (Clear) Urine pH (4.5-7.5) Ur Specific [place] (1.000-1.030) Urine Protein (Negative) Urine Glucose (UA) (Negative) Urine Ketones (Negative) Urine Blood (Negative) Urine Nitrite (Negative) Urine Bilirubin (Negative) Urine Urobilinogen (Negative) Ur Leukocyte Esterase (Negative) Urine WBC (Auto) (0-5) /hpf Urine RBC (Auto) (0-4) /hpf U Hyaline Cast (Auto) (0-5) /lpf U Epithel Cells (Auto) (0-5) /lpf Urine Bacteria (Auto) (Negative) Urine Crystals Triple Phos Crystals (None Prsent) SARS-CoV-2 (PCR) (Negative) Influenza Type A (PCR) (Neg) Influenza Type B (PCR) (Neg) RSV (RT-PCR) (Neg) 08/16/22 08/16/22 08/16/22 Range/Units 21:55 19:39 19:31 WBC (4.8-10.8) K/ul RBC (4.20-5.40) M/uL Hgb (12.0-16.0) g/dl Hct (37.0-47.0) % MCV (80.0-100.0) fL MCH (25.0-34.0) pg MCHC (32.0-36.0) g/dL RDW Std Deviation (36.4-46.3) fL RDW Coeff of Minal (11.5-14.5) % Plt Count (130-400) K/uL MPV (9.4-12.4) fL Immature Gran % (Auto) % Neut % (Auto) % Lymph % (Auto) % [place] % (Auto) % Eos % (Auto) % Baso % (Auto) % Neut # (Auto) (1.40-6.50) K/uL Lymph # (Auto) (1.2-3.4) K/uL [place] # (Auto) (0.11-0.59) K/uL Eos # (Auto) (0-0.50) K/uL Baso # (Auto) (0-0.2) K/uL Immature Gran # (Auto) (0.01-0.20) K/uL PT (9.0-12.0) Seconds INR (0.9-1.1) Sodium (136-145) mmol/L Potassium (3.5-5.1) mmol/L Chloride (98-107) mmol/L Carbon Dioxide (21-32) mmol/L Anion Gap (3-11) BUN (6-23) mg/dl Creatinine (0.6-1.2) mg/dl Est Cr Clr Drug Dosing ml/min Est GFR ( Amer) ml/min Est GFR (Non-Af Amer) ml/min BUN/Creatinine Ratio (10-20) Glucose (70-99(Fasting)) mg/dl Lactate 0.9 (0.4-2.0) mmol/L Calcium (8.6-10.3) mg/dl Magnesium (1.7-2.4) mg/dl Total Bilirubin (0.2-1.0) mg/dl AST (13-39) U/L ALT (7-52) U/L Alkaline Phosphatase (34-104) U/L Total Creatine Kinase (26-192) U/L Troponin I High Sens (0-14) pg/ml Total Protein (6.0-8.3) gm/dl Albumin (3.4-5.0) gm/dl Globulin (2.5-4.0) gm/dl Albumin/Globulin Ratio (0.9-2) Lipase (11-82) U/L Vitamin B12 (180-914) pg/ml TSH (0.300-4.500) uIu/ml Free T4 (0.61-1.60) ng/dl Urine Color Yellow Urine Appearance Cloudy A (Clear) Urine pH 5.0 (4.5-7.5) Ur Specific [place] > 1.045 H (1.000-1.030) Urine Protein Trace H (Negative) Urine Glucose (UA) Negative (Negative) Urine Ketones 1+ H (Negative) Urine Blood 2+ H (Negative) Urine Nitrite Positive A (Negative) Urine Bilirubin Negative (Negative) Urine Urobilinogen Negative (Negative) Ur Leukocyte Esterase 1+ H (Negative) Urine WBC (Auto) 10-30 H (0-5) /hpf Urine RBC (Auto) 0-4 (0-4) /hpf U Hyaline Cast (Auto) 5-10 H (0-5) /lpf U Epithel Cells (Auto) 5-10 H (0-5) /lpf Urine Bacteria (Auto) 2+ H (Negative) Urine Crystals Not Reportable Triple Phos Crystals Present A (None Prsent) SARS-CoV-2 (PCR) NEGATIVE (Negative) Influenza Type A (PCR) Negative (Neg) Influenza Type B (PCR) Negative (Neg) RSV (RT-PCR) Negative (Neg) 08/16/22 08/16/22 08/16/22 Range/Units 19:31 19:31 19:31 WBC 5.83 (4.8-10.8) K/ul RBC 4.89 (4.20-5.40) M/uL Hgb 14.8 (12.0-16.0) g/dl Hct 42.8 (37.0-47.0) % MCV 87.5 (80.0-100.0) fL MCH 30.3 (25.0-34.0) pg MCHC 34.6 (32.0-36.0) g/dL RDW Std Deviation 42.5 (36.4-46.3) fL RDW Coeff of Minal 13.2 (11.5-14.5) % Plt Count 170 (130-400) K/uL MPV 9.9 (9.4-12.4) fL Immature Gran % (Auto) 0.2 % Neut % (Auto) 80.9 % Lymph % (Auto) 14.1 % [place] % (Auto) 4.6 % Eos % (Auto) 0.0 % Baso % (Auto) 0.2 % Neut # (Auto) 4.72 (1.40-6.50) K/uL Lymph # (Auto) 0.82 L (1.2-3.4) K/uL [place] # (Auto) 0.27 (0.11-0.59) K/uL Eos # (Auto) 0.00 (0-0.50) K/uL Baso # (Auto) 0.01 (0-0.2) K/uL Immature Gran # (Auto) 0.01 (0.01-0.20) K/uL PT (9.0-12.0) Seconds INR (0.9-1.1) Sodium 139 (136-145) mmol/L Potassium 3.8 (3.5-5.1) mmol/L Chloride 103 (98-107) mmol/L Carbon Dioxide 29 (21-32) mmol/L Anion Gap 7 (3-11) BUN 32 H (6-23) mg/dl Creatinine 0.89 (0.6-1.2) mg/dl Est Cr Clr Drug Dosing 37.3 ml/min Est GFR ( Amer) 75.0 ml/min Est GFR (Non-Af Amer) 64.7 ml/min BUN/Creatinine Ratio 36.0 H (10-20) Glucose 72 (70-99(Fasting)) mg/dl Lactate (0.4-2.0) mmol/L Calcium 9.1 (8.6-10.3) mg/dl Magnesium (1.7-2.4) mg/dl Total Bilirubin 1.5 H (0.2-1.0) mg/dl AST 37 (13-39) U/L ALT 38 (7-52) U/L Alkaline Phosphatase 39 (34-104) U/L Total Creatine Kinase 541 H (26-192) U/L Troponin I High Sens 17.5 H (0-14) pg/ml Total Protein 6.2 (6.0-8.3) gm/dl Albumin 4.0 (3.4-5.0) gm/dl Globulin 2.2 L (2.5-4.0) gm/dl Albumin/Globulin Ratio 1.8 (0.9-2) Lipase 11 (11-82) U/L Vitamin B12 (180-914) pg/ml TSH 24.787 H (0.300-4.500) uIu/ml Free T4 0.92 (0.61-1.60) ng/dl Urine Color Urine Appearance (Clear) Urine pH (4.5-7.5) Ur Specific [place] (1.000-1.030) Urine Protein (Negative) Urine Glucose (UA) (Negative) Urine Ketones (Negative) Urine Blood (Negative) Urine Nitrite (Negative) Urine Bilirubin (Negative) Urine Urobilinogen (Negative) Ur Leukocyte Esterase (Negative) Urine WBC (Auto) (0-5) /hpf Urine RBC (Auto) (0-4) /hpf U Hyaline Cast (Auto) (0-5) /lpf U Epithel Cells (Auto) (0-5) /lpf Urine Bacteria (Auto) (Negative) Urine Crystals Triple Phos Crystals (None Prsent) SARS-CoV-2 (PCR) (Negative) Influenza Type A (PCR) (Neg) Influenza Type B (PCR) (Neg) RSV (RT-PCR) (Neg) 08/16/22 Range/Units 19:31 WBC (4.8-10.8) K/ul RBC (4.20-5.40) M/uL Hgb (12.0-16.0) g/dl Hct (37.0-47.0) % MCV (80.0-100.0) fL MCH (25.0-34.0) pg MCHC (32.0-36.0) g/dL RDW Std Deviation (36.4-46.3) fL RDW Coeff of Minal (11.5-14.5) % Plt Count (130-400) K/uL MPV (9.4-12.4) fL Immature Gran % (Auto) % Neut % (Auto) % Lymph % (Auto) % [place] % (Auto) % Eos % (Auto) % Baso % (Auto) % Neut # (Auto) (1.40-6.50) K/uL Lymph # (Auto) (1.2-3.4) K/uL [place] # (Auto) (0.11-0.59) K/uL Eos # (Auto) (0-0.50) K/uL Baso # (Auto) (0-0.2) K/uL Immature Gran # (Auto) (0.01-0.20) K/uL PT 11.5 (9.0-12.0) Seconds INR 1.1 (0.9-1.1) Sodium (136-145) mmol/L Potassium (3.5-5.1) mmol/L Chloride (98-107) mmol/L Carbon Dioxide (21-32) mmol/L Anion Gap (3-11) BUN (6-23) mg/dl Creatinine (0.6-1.2) mg/dl Est Cr Clr Drug Dosing ml/min Est GFR ( Amer) ml/min Est GFR (Non-Af Amer) ml/min BUN/Creatinine Ratio (10-20) Glucose (70-99(Fasting)) mg/dl Lactate (0.4-2.0) mmol/L Calcium (8.6-10.3) mg/dl Magnesium (1.7-2.4) mg/dl Total Bilirubin (0.2-1.0) mg/dl AST (13-39) U/L ALT (7-52) U/L Alkaline Phosphatase (34-104) U/L Total Creatine Kinase (26-192) U/L Troponin I High Sens (0-14) pg/ml Total Protein (6.0-8.3) gm/dl Albumin (3.4-5.0) gm/dl Globulin (2.5-4.0) gm/dl Albumin/Globulin Ratio (0.9-2) Lipase (11-82) U/L Vitamin B12 (180-914) pg/ml TSH (0.300-4.500) uIu/ml Free T4 (0.61-1.60) ng/dl Urine Color Urine Appearance (Clear) Urine pH (4.5-7.5) Ur Specific [place] (1.000-1.030) Urine Protein (Negative) Urine Glucose (UA) (Negative) Urine Ketones (Negative) Urine Blood (Negative) Urine Nitrite (Negative) Urine Bilirubin (Negative) Urine Urobilinogen (Negative) Ur Leukocyte Esterase (Negative) Urine WBC (Auto) (0-5) /hpf Urine RBC (Auto) (0-4) /hpf U Hyaline Cast (Auto) (0-5) /lpf U Epithel Cells (Auto) (0-5) /lpf Urine Bacteria (Auto) (Negative) Urine Crystals Triple Phos Crystals (None Prsent) SARS-CoV-2 (PCR) (Negative) Influenza Type A (PCR) (Neg) Influenza Type B (PCR) (Neg) RSV (RT-PCR) (Neg)
--- NOTE | 2022-08-17 10:23 | Neurology Consultation ---
Date of Consultation August 17, 2022 Assessment & Plan (1) Vitamin B 12 deficiency: Weakness and loss of sensation with loss of taste and rash is most consistent with B12 deficiency, B12 levels are low <300 which is enough to cause subacute combined degeneration. The differential otherwise includes a paraneoplastic process, GBS, transverse myelitis or other spinal cord pathology though this is less likely given the systemic involvement. I recommend an MRI of the C and T spine to evaluate for SCD. Check MMA, folate and intrinsic factor abs. Supplement B12, Injections if possible, then oral if intrinsic factor ab is negative. -- MRI C and T spine without contrast -- MMA, folate and intrinsic factor ab -- B12 supplementation -- We will continue to follow Telehealth Consultation Telehealth Information Telehealth Information: I performed this visit using a real-time telehealth connection between my location and the patients location ([facility]). After connecting through interactive tele-video, patient was identified by name and date of and/or wristband check.Patient (or authorized healthcare outside dealer sales representative) was informed that this was a telemedicine visit and it was being conducted confidentially over secure lines. My office door was closed and no one else was present in the room with me.Patient (or authorized healthcare outside dealer sales representative) provided consent to proceed with the visit, expressed an understanding of privacy and security of the telemedicine visit, and gave permission to have a hospital outside dealer sales representative in the room in order to assist with the visit and to conduct portions of the visit, as needed. I informed the patient (or authorized healthcare outside dealer sales representative) that I reviewed their record and presented the opportunity for them to ask any questions regarding the visit today. The patient agreed to participate. History of Present Illness Reason for Consultation: weakness Requesting Physician: Dr. Wilson Attending Physician: Aiyana Wilson MD History of Present Illness Kaci Funk is a 72 yo F presenting with weeks of unexplained weight loss, loss of taste, rash, hand and lower extremity weakness causing gait instability, saddle anesthesia and loss of bowel and bladder sensation leading to stool incontinence. The patient reports these symptoms over the last few weeks and believes they are worsening. She denies any symptoms of UTI but notes that she wouldn't be able to feel it due to her numbness. She is concerned primarily over a vascular issue causing lack of blood flow to her extremities. There is no description of recent GI illness but she does complain of abdominal pain. No ascending symptoms, she believes her hands were first to be affected. She denies any injury, no back pain, no headache. From the neck up she feels normal, no vision changes, dizziness or confusion. She has a history of B12 deficiency in the remote past but is no longer taking supplements. She is on public water at home in a new build, no lead exposure. Allergies Allergy/AdvReac Type Severity Reaction Status Date / Time morphine Allergy Unknown shock, Verified 08/16/22 21:19 dspnea Home Medications Medication Instructions Recorded Confirmed Type dicyclomine 10 mg capsule 10 mg PO TID PRN abdominal pain 07/24/22 08/16/22 Rx #20 caps levothyroxine 75 mcg tablet 75 mcg PO QAM 07/24/22 08/16/22 History famotidine 40 mg tablet 40 mg PO HS 08/16/22 08/16/22 History omeprazole 20 mg capsule,delayed 40 mg PO QAM 08/16/22 08/16/22 History release Patient History Medical History COPD (chronic obstructive pulmonary disease) Hypothyroid Vitamin D deficiency Social History Smoking Status: Former smoker Tobacco Type: Cigarettes Cigarettes Per Day: 1 pack a week; Smoking End Date: 2 weeks go; Second Hand Exposure: Yes; Do You Dip or Chew Tobacco: No; Hx Alcohol Use: No Hx Substance Use: No Preferred Language: Wallisian Communication Ability: Effective Plastic Printer Required: No Beliefs That Will Affect Care: None Current Living Situation: Spouse Feels Safe at Home: Yes Safety Concerns: Feels Safe At This Time Assistive Devices: Cane and Glasses Results & Data Vital Signs (Past 12 Hours) Vital Signs Temp Pulse Pulse Resp BP Pulse Ox O2 Del Method 08/17/22 07:09 36.6 C 67 17 104/69 98 Room Air 08/17/22 07:00 67 08/17/22 00:56 74 08/17/22 03:28 36.7 C 65 16 118/74 98 Room Air 08/17/22 00:50 Room Air 08/17/22 00:50 36.5 C 71 16 167/108 H 98 Room Air 08/17/22 00:00 96 H 16 144/99 H 97 Room Air 08/17/22 00:03 72 08/16/22 23:23 85 16 155/104 H 100 Room Air 08/16/22 22:26 76 18 148/105 H 100 Room Air Laboratory Results Abnormal lab results 08/16/22 08/16/22 08/16/22 Range/Units 19:31 19:31 19:31 Lymph # (Auto) 0.82 L (1.2-3.4) K/uL Potassium (3.5-5.1) mmol/L BUN 32 H (6-23) mg/dl BUN/Creatinine Ratio 36.0 H (10-20) Glucose (70-99(Fasting)) mg/dl Calcium (8.6-10.3) mg/dl Total Bilirubin 1.5 H (0.2-1.0) mg/dl Total Creatine Kinase 541 H (26-192) U/L Troponin I High Sens 17.5 H (0-14) pg/ml Globulin 2.2 L (2.5-4.0) gm/dl TSH 24.787 H (0.300-4.500) uIu/ml Urine Appearance (Clear) Ur Specific [place] (1.000-1.030) Urine Protein (Negative) Urine Ketones (Negative) Urine Blood (Negative) Urine Nitrite (Negative) Ur Leukocyte Esterase (Negative) Urine WBC (Auto) (0-5) /hpf U Hyaline Cast (Auto) (0-5) /lpf U Epithel Cells (Auto) (0-5) /lpf Urine Bacteria (Auto) (Negative) Triple Phos Crystals (None Prsent) 08/16/22 08/17/22 08/17/22 Range/Units 19:39 06:21 06:21 Lymph # (Auto) 1.09 L (1.2-3.4) K/uL Potassium 3.1 L (3.5-5.1) mmol/L BUN (6-23) mg/dl BUN/Creatinine Ratio 32.9 H (10-20) Glucose 57 L (70-99(Fasting)) mg/dl Calcium 7.9 L (8.6-10.3) mg/dl Total Bilirubin (0.2-1.0) mg/dl Total Creatine Kinase 353 H (26-192) U/L Troponin I High Sens 22.1 H (0-14) pg/ml Globulin (2.5-4.0) gm/dl TSH (0.300-4.500) uIu/ml Urine Appearance Cloudy A (Clear) Ur Specific [place] > 1.045 H (1.000-1.030) Urine Protein Trace H (Negative) Urine Ketones 1+ H (Negative) Urine Blood 2+ H (Negative) Urine Nitrite Positive A (Negative) Ur Leukocyte Esterase 1+ H (Negative) Urine WBC (Auto) 10-30 H (0-5) /hpf U Hyaline Cast (Auto) 5-10 H (0-5) /lpf U Epithel Cells (Auto) 5-10 H (0-5) /lpf Urine Bacteria (Auto) 2+ H (Negative) Triple Phos Crystals Present A (None Prsent) Diagnostic Findings Abdomen/Pelvis CT 08/16/22 18:24 Exam(s): CT ABDOMEN + PELVIS With Contrast IV Amt: 90 ML OPTIRAY 320 EXAM: CT Abdomen and Pelvis With Intravenous Contrast CLINICAL HISTORY: Reason for exam: nausea, weight loss. TECHNIQUE: Axial computed tomography images of the abdomen and pelvis with intravenous contrast. CTDI is 35.37 mGy and DLP is 546.36 mGy-cm. Automated exposure control was utilized for the study. A dose lowering technique was utilized adhering to the principles of ALARA. CONTRAST: Patient received 90 ML OPTIRAY 320 of IV contrast COMPARISON: No relevant prior studies available. FINDINGS: Lung bases: Unremarkable. No mass. No consolidation. ABDOMEN: Liver: Mild periportal edema. Correlate for overhydration (the IVC is distended) versus hepatitis. Gallbladder and bile ducts: Unremarkable. No calcified stones. No ductal dilation. Pancreas: Unremarkable. No mass. No ductal dilation. Spleen: Unremarkable. No splenomegaly. Adrenals: Unremarkable. No mass. Kidneys and ureters: Severe right-sided hydronephrosis. No definite obstruction of the ureter. Consider CT urogram protocol for further evaluation, if clinically indicated. Stomach and bowel: Wall thickening of small bowel in the pelvis, correlate for enteritis. Diverticulosis, without acute diverticulitis. No small bowel obstruction. No free air. PELVIS: Appendix: No findings to suggest acute appendicitis. Bladder: Unremarkable. No mass. Reproductive: Unremarkable as visualized. ABDOMEN and PELVIS: Intraperitoneal space: See above. Bones/joints: Degenerative changes of the spine. No acute fracture. No dislocation. Soft tissues: See above. Vasculature: Atherosclerotic changes of the aorta. Lymph nodes: Unremarkable. No enlarged lymph nodes. IMPRESSION: 1. Mild periportal edema. Correlate for overhydration (the IVC is distended) versus hepatitis. 2. Severe right-sided hydronephrosis. No definite obstruction of the ureter. Consider CT urogram protocol for further evaluation, if clinically indicated. 3. Wall thickening of small bowel in the pelvis, correlate for enteritis. 4. Diverticulosis, without acute diverticulitis. No small bowel obstruction. No free air. Electronically signed by: Yvon Hastings MD 08/16/22 21:59 PM Chest X-Ray 08/16/22 18:25 XR chest 1V portable CLINICAL HISTORY: fatigue, weight loss TECHNIQUE: Single frontal radiograph of the chest was obtained. Comparison: Comparison is made to chest radiograph 08/04/2017 FINDINGS: No lines and tubes are seen. Calcified aortic knob is seen. The lungs are clear. No evidence of pleural effusion or pneumothorax. IMPRESSION: No acute chest disease. ACT 112: Negative or not required by law. Electronically signed by: Trent Woodruff M.D. 08/16/2022 7:[address] 08/16/22 18:26 Exam(s): CT HEAD Without Contrast EXAM: CT Head Without Intravenous Contrast CLINICAL HISTORY: Reason for exam: weakness, dizzy. TECHNIQUE: Axial computed tomography images of the head/brain without intravenous contrast. CTDI is 35.37 mGy and DLP is 546.36 mGy-cm. Automated exposure control was utilized for the study. A dose lowering technique was utilized adhering to the principles of ALARA. COMPARISON: No relevant prior studies available. FINDINGS: No acute intracranial hemorrhage. No midline shift or mass effect. The territorial obrien-white matter differentiation is maintained throughout. Age-related cerebral volume loss. Periventricular and subcortical white matter hypoattenuation, consistent with chronic microangiopathy. The visualized orbits appear grossly unremarkable. The calvarium is intact. The visualized paranasal sinuses and mastoid air cells are grossly clear. IMPRESSION: No acute intracranial hemorrhage, midline shift, or mass effect. Electronically signed by: Yvon Hastings MD 08/16/22 21:55 PM
[2022-08-17] MEDS ORDERED: CYANOCOBALAMIN 1000 MCG/ML VIAL IM ONE (11:00)
--- NOTE | 2022-08-17 11:33 | Urology Consultation ---
Date of Consultation August 17, 2022 Assessment & Plan (1) Acute UTI: (2) Hydronephrosis, right: Plan 72yo/F admitted with generalized weakness, weight loss, UTI. Urology consulted for severe right sided hydronephrosis. -She is afebrile, hemodynamically stable. -Labs show no leukocytosis and normal renal function. -Urine culture gram-negative bacilli, on IV ceftriaxone. Blood cultures pending. -Voiding spontaneously. Continue to monitor. Bladder scan after next void and as needed. -CT abdomen pelvis reviewed- Severe right-sided hydro with no obvious ureteral obstruction/stones. Right hydro appears similar to prior CT on 07/13 and is possibly chronic in nature. -No plan for intervention at this time as she is stable, no fevers or right flank pain, and has a normal renal function. -If she were to develop fevers or clinically deteriorate, we can consider possible ureteral stent placement. -Continue supportive care and antibiotics. -Follow culture and tailor as culture data becomes available. -Neurology follow for weakness/loss of sensation- ? possible B12 deficiency. -Urology will follow. History of Present Illness Attending Physician: Aiyana Wilson MD History of Present Illness 72-year-old female with a PMHx including hypothyroidism, COPD, pulmonary hypertension, osteoporosis who presented with reports of unexplained weight loss, lower extremity weakness causing gait instability, numbness and loss of bowel and bladder sensation leading to stool incontinence. On arrival, she was afebrile and hemodynamically stable. Labs show no leukocytosis, stable hemoglobin, normal renal function. Urinalysis with 2+ blood, positive nitrite, 1+ LE, 2+ bacteria. Urine culture is preliminary gram-negative bacilli. Blood cultures are pending. She is on IV ceftriaxone. CT abdomen pelvis on arrival demonstrated severe right-sided hydronephrosis with no definite obstruction of the ureter. Urology consulted for severe right-sided hydronephrosis. Patient examined at bedside this AM. Awake, resting in bed on arrival. No acute distress. Notes for approx 1 month she has had weakness, weight loss, decreased appetite, issues with stool incontinence. Denies fevers, chills, nausea, vomiting. She denies abdominal, flank, suprapubic pain. She does report right hip pain with ambulation. Denies hematuria or dysuria. Reports she does feel when her bladder is full and gets the urge to go. Feels she is emptying her bladder well. Denies frequency or hesitancy. Denies urinary incontinence, reports mostly bowel incontinence issues. Denies prior urological history. Has never seen a urologist. Imaging- CT abdomen pelvis 08/16/2022- 1. Mild periportal edema. Correlate for overhydration (the IVC is distended) versus hepatitis. 2. Severe right-sided hydronephrosis. No definite obstruction of the ureter. Consider CT urogram protocol for further evaluation, if clinically indicated. 3. Wall thickening of small bowel in the pelvis, correlate for enteritis. 4. Diverticulosis, without acute diverticulitis. No small bowel obstruction. No free air. CT abdomen pelvis 07/13/22- 1. Malpositioned right kidney with pelvocaliectasis. Hydronephrosis is considered less likely. 2. No acute abnormalities. Allergies Allergy/AdvReac Type Severity Reaction Status Date / Time morphine Allergy Unknown shock, Verified 08/16/22 21:19 dspnea Home Medications Medication Instructions Recorded Confirmed Type dicyclomine 10 mg capsule 10 mg PO TID PRN abdominal pain 07/24/22 08/16/22 Rx #20 caps levothyroxine 75 mcg tablet 75 mcg PO QAM 07/24/22 08/16/22 History famotidine 40 mg tablet 40 mg PO HS 08/16/22 08/16/22 History omeprazole 20 mg capsule,delayed 40 mg PO QAM 08/16/22 08/16/22 History release Patient History Medical History COPD (chronic obstructive pulmonary disease) Hypothyroid Vitamin D deficiency Social History Smoking Status: Former smoker Tobacco Type: Cigarettes Cigarettes Per Day: 1 pack a week; Smoking End Date: 2 weeks go; Second Hand Exposure: Yes; Do You Dip or Chew Tobacco: No; Hx Alcohol Use: No Hx Substance Use: No Preferred Language: Botswanan Communication Ability: Effective Legal Associate Required: No Beliefs That Will Affect Care: None Current Living Situation: Spouse Feels Safe at Home: Yes Safety Concerns: Feels Safe At This Time Assistive Devices: Cane Review of Systems Review of Systems: All systems reviewed & are unremarkable except as noted in HPI & below Physical Exam Constitutional: + thin; no acute distress Neck: normal visual inspection Respiratory: no respiratory distress and no labored breathing Gastrointestinal (Abdomen): Percussion/Palpation: abdomen soft; abdomen nontender Musculoskeletal: Head/Neck/Chest: normocephalic Skin: No visible rashes or lesions to exposed skin areas Neurologic: awake Psychiatric: Orientation: alert and oriented x 3 Genitourinary: no CVA tenderness Results & Data Vital Signs (Past 12 Hours) Vital Signs Temp Pulse Pulse Resp BP Pulse Ox O2 Del Method 08/17/22 07:09 36.6 C 67 17 104/69 98 Room Air 08/17/22 07:00 67 08/17/22 00:56 74 08/17/22 03:28 36.7 C 65 16 118/74 98 Room Air 08/17/22 00:50 Room Air 08/17/22 00:50 36.5 C 71 16 167/108 H 98 Room Air 08/17/22 00:00 96 H 16 144/99 H 97 Room Air 08/17/22 00:03 72 08/16/22 23:23 85 16 155/104 H 100 Room Air PG Care Time/CCT Total # of Minutes Spent Total Time Spent with Patient: Total time spent is greater than 50% in coordination of care (as documented) at patient's floor/unit and/or counseling patient: Coding Level of Care Code 45538 INT INP/OBS CARE 2/55MIN Diagnoses Acute UTI N39.0 Hydronephrosis, right N13.30
--- NOTE | 2022-08-17 12:29 | Electrocardiogram Report ---
Test Reason : Blood Pressure : / mmHG Vent. Rate : 063 BPM Atrial Rate : 063 BPM P-R Int : 202 ms QRS Dur : 094 ms QT Int : 480 ms P-R-T Axes : 083 090 064 degrees QTc Int : 491 ms Sinus rhythm with PACs Rightward axis Poor R wave progression, consider anterior MO vs. lead placement vs. LVH Abnormal ECG When compared with ECG of 24-JUL-2022 00:14, Premature ventricular complexes are no longer Present Nonspecific T wave abnormality, worse in Inferior leads Confirmed by Phi Cash ([id number]) on 08/17/2022 12:29:29 PM Referred By: REFERRED SELF Confirmed By:Rito Cash
--- NOTE | 2022-08-17 15:22 | Hospitalist Progress Note ---
Date of Service August 17, 2022 Assessment & Plan (1) Acute UTI: Plan 72-year-old female with PMH of hypothyroidism, COPD, pulmonary hypertension, osteoporosis, history of colon polyps, colonoscopy in 2018 for positive Cologuard test with a plan to repeat colonoscopy in 5 years presented to the ED due to ongoing several issues since last 1 month including loss of taste sensation/decreased appetite/significant weight loss [from 115 pounds to 90 pounds per patient], numbness in all 4 extremities with decreased sensation and dizziness. She is being managed for the following: Vitamin B12 deficiency Generalized weakness/dizziness Rule out subacute combined degeneration of spinal cord B12 level low normal, loss of sensation with small tongue/loss of taste and rash consistent with vitamin B12 deficiency. Discussed with neurology, ordered MRI of C and T-spine without contrast and ordered MMA/folate/intrinsic factor antibody levels. Ordered IM vitamin B12, will follow-up on intrinsic factor level. We will continue to follow clinically. We will get orthostatic vitals. Continue with PT/OT. Will discontinue home omeprazole for now. Will use Pepcid instead Severe protein calorie malnutrition: Patient with decreased appetite with reported loss of weight from 115 pounds to 90 pounds in 1 month. Dietitian consult, appreciate recommendation. Monitor and replete electrolytes closely. Elevated CPK level: Does not qualify for diagnosis of rhabdomyolysis, already downtrending. Acute UTI: Continue with Rocephin, follow culture. Severe right hydronephrosis: Noted in CT abdomen pelvis, admitting BUN and creatinine WNL. Urology consulted, await recommendation. We will continue treatment of UTI, no CVA tenderness on exam. Likely demand ischemia: Troponin elevated, likely secondary to acute illness. Hypothyroidism: History of thyroidectomy. TSH elevated, T4 WNL, likely secondary to acute illness. Will need repeat TFT in 6-week after resolution of her acute illness. Continue with home dose for now. Other chronic medical conditions: c/w home meds as able. 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 DVT prophylaxis: Heparin subcu Full code Admission and Anticipated Discharge Date Admission Date: August 16, 2022 Subjective Patient seen and examined at bedside as a follow-up of dizziness, generalized weakness, vitamin B12 deficiency, acute UTI, right-sided hydronephrosis. Patient was lying in bed, on room air, NAD, reports being able to eat little better today morning, has moved bowels today, denies any new acute events overnight, denies any headache or chest pain or sore throat or cough. Reports decreased sensation from waist below and bilateral upper extremities. Reports dizziness. Reports loss of appetite as she cannot taste food. Physical Exam Physical Exam: GENERAL: Alert and oriented x3. NAD, on RA. Lean, thin frail appearing HEENT: No pallor, no icterus. Pupils equal, round and reactive to light. Oral mucosa moist. smooth tongue. NECK: No JVD, no neck masses. HEART: S1 and S2 heard. Regular rate and rhythm. No murmur, no gallop. RESPIRATORY SYSTEM: Normal AP diameter. No accessory muscle use. No wheezing, no crackles. ABDOMEN: Soft, bowel sounds present, nontender, no distention. CENTRAL NERVOUS SYSTEM: No facial droop. Speech is clear. Obeys simple commands. Decreased sensation BLE and BUE. Moves extremities. EXTREMITIES: No edema, no erythema seen. Results & Data Results & Data Vital Signs (Past 12 Hours) Vital Signs Temp Pulse Pulse Resp BP Pulse Ox O2 Del Method 08/17/22 11:17 36.7 C 68 20 116/78 97 Room Air 08/17/22 07:09 36.6 C 67 17 104/69 98 Room Air 08/17/22 07:00 67 08/17/22 03:28 36.7 C 65 16 118/74 98 Room Air
--- NOTE | 2022-08-17 17:49 | Magnetic Resonance Report ---
CLINICAL HISTORY: ?subacute degenration of Sp Cord TECHNIQUE: MRI of the cervical spine is performed utilizing various T1 and T2 sequences in the axial and sagittal planes. IV contrast was not administered for this examination. Comparison: None available at the time of this dictation. FINDINGS: Exam is highly limited by patient motion. C2-C3: Unremarkable. C3-C4: Unremarkable. C4-C5: Broad-based posterior disc bulge is seen. There is severe left and mild right neural foraminal stenosis. There is mild canal stenosis. C5-C6: There is degenerative change with moderate to severe right and moderate left neuroforaminal st enosis. There is mild canal stenosis. C6-C7: Broad-based posterior disc bulge is seen with mild bilateral neuroforaminal stenosis. Mild can al stenosis is seen. C7-T1: Unremarkable. The spinal ligaments are intact, without evidence of disruption or abnormal signal intensity. The spi nal cord is normal in signal intensity and there is no evidence of cord edema. There is no evidence o f an extradural, intradural, extramedullary or intramedullary lesion. Visualized soft tissues are nor mal. Visualized brain parenchyma is normal. IMPRESSION: Multilevel degenerative changes are seen with up to mild canal stenosis, moderate to severe right and severe left neuroforaminal stenosis. ACT 112: Negative or not required by law. Electronically signed by: Trent Woodruff M.D. 08/17/2022 5:48 PM
[2022-08-17] MEDS ORDERED: FAMOTIDINE 20 MG TAB PO SCH (21:00)
[2022-08-17] MEDS: FAMOTIDINE 20 MG TAB PO SCH (21:42)
[2022-08-17] MEDS: cefTRIAXone SODIUM 1,000 MG in DEXTROSE 5% AD-VAN 50 ML IV SCH (21:44)
[2022-08-18 00:24] LABS: Adenovirus F 40/41 PCR Not Detected (NotDetected); Astrovirus PCR Not Detected (NotDetected); Campylobacter PCR Not Detected (NotDetected); Cryptosporidium PCR Not Detected (NotDetected); Cyclospora cayetanensis PCR Not Detected (NotDetected); Entamoeba histolytica PCR Not Detected (NotDetected); Enteroaggregative E.coli(EAEC) Not Detected (NotDetected); Enteropathogenic E.coli (EPEC) Not Detected (NotDetected); Enterotoxigenic E.coli (ETEC) Not Detected (NotDetected); Giardia lamblia PCR Not Detected (NotDetected); Plesiomonas shigelloides PCR Not Detected (NotDetected); Rotavirus A PCR Not Detected (NotDetected); Salmonella PCR Not Detected (NotDetected); Sapovirus PCR Not Detected (NotDetected); Shiga-like Toxin E.coli (STEC) Not Detected (NotDetected); Shigella/Enteroinvasive E.coli Not Detected (NotDetected); Vibrio cholerae PCR Not Detected (NotDetected); Vibrio species PCR Not Detected (NotDetected); Yersinia enterocolitica PCR Not Detected (NotDetected)
[2022-08-18 00:29] LABS: Norovirus GI/GII PCR DETECTED (NotDetected)
[2022-08-18] MEDS ORDERED: LOPERAMIDE HCL 2 MG CAP PO SCH (00:41)
[2022-08-18] MEDS ORDERED: LOPERAMIDE HCL 2 MG CAP PO STA (00:41)
[2022-08-18] MEDS ORDERED: Nursing to Pharmacy Communication SCH (03:15)
[2022-08-18] MEDS: D5W AND NSS 1,000 ML IV SCH ×2 (03:15→13:20)
[2022-08-18] MEDS: LEVOTHYROXINE SODIUM 75 MCG TABLET PO SCH ×2 (06:10→06:49)
--- NOTE | 2022-08-18 07:28 | Urology Progress Note ---
Date of Service August 18, 2022 Assessment & Plan (1) Acute UTI: (2) Hydronephrosis, right: Plan 72yo/F admitted with generalized weakness, weight loss, UTI. Urology consulted for severe right sided hydronephrosis. -She is afebrile, hemodynamically stable. -Labs reviewed- WBC 4.70, hemoglobin 13.9, creatinine 0.67. -Urine culture grew E.coli, on IV ceftriaxone. Blood cultures prelim no growth. -Voiding spontaneously. PVR yesterday was 0ml. Continue to monitor. Bladder s can prn. -CT abdomen pelvis reviewed- Severe right-sided hydro with no obvious ureteral obstruction/stones. Right hydro appears similar to prior CT on 07/13 and is possibly chronic. -No plan for intervention as patient remains stable without fevers or flank pain. -Hydronephrosis can be managed as an outpatient as this is likely chronic in nature. -Continue supportive care and antibiotics. -Follow culture and tailor as culture data becomes available. -Will arrange outpatient follow-up with our service. -Urology will sign-off. Please contact us with any further questions, concerns, or changes in patient status. Admission and Anticipated Discharge Date Admission Date: August 16, 2022 Subjective Patient examined at bedside. Awake, standing in room on arrival. No acute distress. Denies fevers, chills, nausea, vomiting. She denies abdominal, flank, suprapubic pain. Voiding without issue. Reports she does feel when her bladder is full and feels urge to go. Denies hematuria or dysuria. Still with loose stools/incontinence issues. Stool + for Norovirus. Review of Systems Constitutional: as per Subjective / HPI Gastrointestinal: as per Subjective / HPI Genitourinary: as per Subjective / HPI Physical Exam Constitutional: + thin; no acute distress Respiratory: no respiratory distress and no labored breathing Skin: No visible rashes or lesions to exposed skin areas Neurologic: awake Psychiatric: Orientation: alert and oriented x 3 Results & Data Vital Signs (Past 12 Hours) Vital Signs Temp Pulse Pulse Resp BP Pulse Ox O2 Del Method 08/18/22 03:07 36.8 C 70 18 91/53 L 97 Room Air 08/18/22 00:51 58 L 08/17/22 22:00 36.9 C 55 L 20 128/77 97 Room Air PG Care Time/CCT Total # of Minutes Spent Total Time Spent with Patient: Total time spent is greater than 50% in coordination of care (as documented) at patient's floor/unit and/or counseling patient: Coding Level of Care Code 34252 SUB INP/OBS CARE 2/35MIN Diagnoses Acute UTI N39.0 Hydronephrosis, right N13.30
[2022-08-18] MEDS: HEPARIN SOD 5,000 UNIT/0.5 ML VIAL SQ SCH ×2 (07:43→20:18)
[2022-08-18] MEDS: FAMOTIDINE 20 MG TAB PO SCH ×2 (07:43→20:18)
[2022-08-18 08:35] LABS: Hematocrit (blood only) 40.3 % (37.0-47.0); Hemoglobin 13.9 g/dl (12.0-16.0); Mean Corpuscular Hemoglobin 30.4 pg (25.0-34.0); Mean Corpuscular Hgb Conc 34.5 g/dL (32.0-36.0); Mean Corpuscular Volume 88.2 fL (80.0-100.0); Mean Platelet Volume 10.2 fL (9.4-12.4); Platelet Count 147 K/uL (130-400); RDW Coefficient of Variation 13.2 % (11.5-14.5); RDW Standard Deviation 42.5 fL (36.4-46.3); Red Blood Count 4.57 M/uL (4.20-5.40)
[2022-08-18 08:57] LABS: BUN Creatinine Ratio 20.9 (10-20); Calcium 7.7 mg/dl (8.6-10.3); Est GFR (African American) 101.8 ml/min; Est GFR (Non-African American) 87.8 ml/min; Magnesium 1.8 mg/dl (1.7-2.4); Phosphorus 1.9 mg/dl (2.5-4.9); Potassium 2.8 mmol/L (3.5-5.1)
--- NOTE | 2022-08-18 09:35 | Magnetic Resonance Report ---
MR thoracic spine wo con CLINICAL HISTORY: ?subacute degenration of Sp Cord TECHNIQUE: Multiplanar sequences through the thoracic spine were obtained, without intravenous contra st. Comparison: None available at the time of this dictation. FINDINGS: The alignment is anatomical. Disks are normal in height and signal. The spinal canal and neural foramina are patent. The spinal ligaments are intact, without evidence of disruption or abnormal signal intensity. The spi nal cord is normal in signal intensity and there is no evidence of cord contusion. There is no eviden ce of an extradural, intradural, extramedullary or intramedullary lesion. Biapical pulmonary scarring is seen. IMPRESSION: No evidence of cord compression, significant neuroforaminal narrowing or ligamentous injury. ACT 112: Negative or not required by law. Electronically signed by: Trent Woodruff M.D. 08/18/2022 9:34 AM
--- NOTE | 2022-08-18 09:47 | Gastroenterology Progress Note ---
Date of Service August 18, 2022 Assessment & Plan (1) Generalized weakness: Plan: 72 year old female w/history of COPD, pulmonary HTN and others below admitted with abd pain, weakness, weight loss. Tbili 1.5 w/ normal transaminases, lipase normal and CBC unremarkable. CT w/ mild periportal edema, severe right-sided hydronephrosis, wall thickening of small bowel in the pelvis/enteritis, diverticulosis, without acute diverticulitis. Has loose stools currently but no longer having abd pain ,n/v. Stool + for norovirus. Other workup including CT, CTA, EGD/colonoscopy were reviewed. - Repeat TSH and consider Endocrinology consult - F/U acute hepatitis panel - EGD recently in 2022 (esophagitis), recommended OP colonoscopy but pt reluctant due to her inability to tolerate oral prep. Can re-visit this plan once acute issues resolved. - R kidney hydronephrosis w ? neurogenic bladder symptoms, numbness below waistline. Urology, Neurology consulted. - Symptomatic management for Norovirus diarrhea, contacts precaution. - Diet as tolerated Admission and Anticipated Discharge Date Admission Date: August 16, 2022 Subjective Pt denies abd pain, n/v. Tolerating solid meals. Has some loose stools but no rectal bleeding. Stool + for Norovirus Review of Systems Review of Systems: All systems reviewed & are unremarkable except as noted in HPI & below Physical Exam Constitutional: + thin, + cachectic, well groomed, cooperative and comfortable Eyes: PERRL, conjunctivae normal, anicteric sclerae ENMT: external ear and nose normal, oropharynx normal Respiratory: normal respiratory effort, lungs clear to auscultation Cardiovascular: RRR, no murmur, no edema Gastrointestinal (Abdomen): normal bowel sounds, soft, nontender, no hepatosplenomegaly Skin: no rashes, warm and dry no jaundice Psychiatric: A+Ox3, euthymic affect Lymphatic: no lymphedema Results & Data Vital Signs (Past 12 Hours) Vital Signs Temp Pulse Pulse Resp BP Pulse Ox O2 Del Method 08/18/22 08:49 36.6 C 73 17 108/66 99 Room Air 08/18/22 03:07 36.8 C 70 18 91/53 L 97 Room Air 08/18/22 00:51 58 L 08/17/22 22:00 36.9 C 55 L 20 128/77 97 Room Air
[2022-08-18] MEDS ORDERED: POTASSIUM CHLORIDE CRTAB 20 MEQ TABCR PO SCH ×2 (10:45→15:30)
[2022-08-18] MEDS: POTASSIUM CHLORIDE / WTR 10 MEQ/100 ML PLCT IV SCH ×4 (10:54→14:31)
[2022-08-18] MEDS ORDERED: POT PHOSPHATE MONOBASIC W/ SOD TAB PO SCH (13:00)
[2022-08-18] MEDS ORDERED: SODIUM PHOSPHATE 3 MMOL/1 ML INFUSION IV STA (14:43)
[2022-08-18] MEDS ORDERED: SODIUM PHOSPHATE 15 MMOL in DEXTROSE 5% 250 ML IV ONE (15:00)
--- NOTE | 2022-08-18 17:15 | Hospitalist Progress Note ---
Date of Service August 18, 2022 Assessment & Plan (1) Acute UTI: Plan 72-year-old female with PMH of hypothyroidism, COPD, pulmonary hypertension, osteoporosis, history of colon polyps, colonoscopy in 2018 for positive Cologuard test with a plan to repeat colonoscopy in 5 years presented to the ED due to ongoing several issues since last 1 month including loss of taste sensation/decreased appetite/significant weight loss [from 115 pounds to 90 pounds per patient], numbness in all 4 extremities with decreased sensation and dizziness. She is being managed for the following: Vitamin B12 deficiency Generalized weakness/dizziness Rule out subacute combined degeneration of spinal cord -not suggestive of demyelination of the posterior column in MRI C- and T-spine, rather with multiple moderate to severe neuroforaminal stenosis which could also contribute to her sensory changes; orthospine consulted, await recs. B12 level low normal, loss of sensation with small tongue/loss of taste and rash consistent with vitamin B12 deficiency -- 1000 mcg im vit b12 daily for a week, then will transition to oral. Discussed with neurology 08/17, ordered MMA/folate/intrinsic factor antibody levels. Ordered IM vitamin B12, will follow-up on intrinsic factor level and other tests. We will continue to follow clinically. Neg orthostatic vitals. Continue with PT/OT. Will discontinue home omeprazole for now. Will use Pepcid instead Severe protein calorie malnutrition: Patient with decreased appetite with reported loss of weight from 115 pounds to 90 pounds in 1 month. Dietitian consult, appreciate recommendation. Monitor and replete electrolytes closely. Diarrhea/Norovirus gastroenteritis: symptomatic mx. Elevated CPK level: Does not qualify for diagnosis of rhabdomyolysis, already downtrending. Acute UTI: Continue with Rocephin, E coli on cx. Severe right hydronephrosis: Noted in CT abdomen pelvis, admitting BUN and creatinine WNL. Urology consulted, await recommendation. We will continue treatment of UTI, no CVA tenderness on exam. Likely demand ischemia: Troponin elevated, likely secondary to acute illness. Hypothyroidism: History of thyroidectomy. TSH elevated, T4 WNL, likely secondary to acute illness. Will need repeat TFT in 6-week after resolution of her acute illness. Continue with home dose for now. Other chronic medical conditions: c/w home meds as able. COPD: Tobacco abuse, reports quitting smoking about a week ago [employer] DEV[employer]. DVT prophylaxis: Heparin subcu Full code pt/ot, cm to assist, expect in next few days. Admission and Anticipated Discharge Date Admission Date: August 16, 2022 Subjective Patient seen and examined at bedside as a follow-up of dizziness, generalized weakness, vitamin B12 deficiency, acute UTI, right-sided hydronephrosis. Patient was walking towards bed, on room air, NAD, reports improving appetite, improving diarrhea, denies any new acute events overnight, denies any headache or chest pain or sore throat or cough. Reports decreased sensation from ble k nee below and b/l feet numbness, orthospine consulted due to abn mri spine. Reports improving dizziness. Physical Exam Physical Exam: GENERAL: Alert and oriented x3. NAD, on RA. Lean, thin frail appearing HEENT: No pallor, no icterus. Pupils equal, round and reactive to light. Oral mucosa moist. smooth tongue. NECK: No JVD, no neck masses. HEART: S1 and S2 heard. Regular rate and rhythm. No murmur, no gallop. RESPIRATORY SYSTEM: Normal AP diameter. No accessory muscle use. No wheezing, no crackles. ABDOMEN: Soft, bowel sounds present, nontender, no distention. CENTRAL NERVOUS SYSTEM: No facial droop. Speech is clear. Obeys simple commands. Decreased sensation BLE and BUE. Moves extremities. EXTREMITIES: No edema, no erythema seen. Results & Data Results & Data Vital Signs (Past 12 Hours) Vital Signs Temp Pulse Pulse Resp BP Pulse Ox O2 Del Method 08/18/22 14:46 84 08/18/22 06:05 68 08/18/22 07:00 Room Air 08/18/22 08:49 36.6 C 73 17 108/66 99 Room Air
[2022-08-18] MEDS: CYANOCOBALAMIN 1000 MCG/ML VIAL IM SCH (19:17)
[2022-08-18] MEDS: cefTRIAXone SODIUM 1,000 MG in DEXTROSE 5% AD-VAN 50 ML IV SCH (23:46)
[2022-08-19] MEDS: LEVOTHYROXINE SODIUM 75 MCG TABLET PO SCH (05:52)
[2022-08-19 07:08] LABS: Hematocrit (blood only) 37.9 % (37.0-47.0); Hemoglobin 13.1 g/dl (12.0-16.0); Mean Corpuscular Hemoglobin 30.4 pg (25.0-34.0); Mean Corpuscular Hgb Conc 34.6 g/dL (32.0-36.0); Mean Corpuscular Volume 87.9 fL (80.0-100.0); Mean Platelet Volume 10.4 fL (9.4-12.4); Platelet Count 140 K/uL (130-400); RDW Coefficient of Variation 13.3 % (11.5-14.5); Red Blood Count 4.31 M/uL (4.20-5.40); White Blood Count 4.28 K/ul (4.8-10.8)
[2022-08-19 07:30] LABS: Calcium 7.6 mg/dl (8.6-10.3); Est GFR (Non-African American) 90.6 ml/min; Magnesium 1.7 mg/dl (1.7-2.4); Phosphorus 2.3 mg/dl (2.5-4.9); Potassium 3.3 mmol/L (3.5-5.1)
[2022-08-19] MEDS ORDERED: POTASSIUM PHOS 3 MMOL/1 ML INFUSION IV STA (08:25)
[2022-08-19] MEDS: POTASSIUM CHLORIDE / WTR 10 MEQ/100 ML PLCT IV SCH ×4 (08:59→13:03)
[2022-08-19] MEDS: CYANOCOBALAMIN 1000 MCG/ML VIAL IM SCH (09:11)
[2022-08-19] MEDS: FAMOTIDINE 20 MG TAB PO SCH ×2 (09:12→19:58)
[2022-08-19] MEDS: HEPARIN SOD 5,000 UNIT/0.5 ML VIAL SQ SCH ×2 (10:04→20:02)
[2022-08-19] MEDS ORDERED: POTASSIUM PHOSPHATE 21 MMOL in SODIUM CHLORIDE 0.9% 500 ML IV ONE (12:30)
--- NOTE | 2022-08-19 13:24 | Hospitalist Progress Note ---
Date of Service August 19, 2022 Assessment & Plan (1) Acute UTI: Plan 72-year-old female with PMH of hypothyroidism, COPD, pulmonary hypertension, osteoporosis, history of colon polyps, colonoscopy in 2018 for positive Cologuard test with a plan to repeat colonoscopy in 5 years presented to the ED due to ongoing several issues since last 1 month including loss of taste sensation/decreased appetite/significant weight loss [from 115 pounds to 90 pounds per patient], numbness in all 4 extremities with decreased sensation and dizziness. She is being managed for the following: Vitamin B12 deficiency Generalized weakness/dizziness Rule out subacute combined degeneration of spinal cord -not suggestive of demyelination of the posterior column in MRI C- and T-spine, rather with multiple moderate to severe neuroforaminal stenosis which could also contribute to her sensory changes; orthospine consulted, await recs. d/w orthospine, will get MRI lumbar spine wo con. B12 level low normal, loss of sensation with small tongue/loss of taste and rash consistent with vitamin B12 deficiency -- 1000 mcg im vit b12 daily for a week, then weekly for a month; oral transition will depend on intrinsic factor antibody test. Discussed with neurology 08/17, ordered MMA/folate/intrinsic factor antibody levels. Ordered IM vitamin B12, will follow-up on intrinsic factor level and other tests. d/w neuro again with new findings on mri c-and t-spine, no new recs. We will continue to follow clinically. Neg orthostatic vitals. improving gait/appetite per pt. Discontinue home omeprazole. Use Pepcid instead. f/u w/ neuro as OP. Severe protein calorie malnutrition: Patient with decreased appetite with reported loss of weight from 115 pounds to 90 pounds in 1 month. Dietitian consult, appreciate recommendation. Monitor and replete electrolytes closely. Improving appetite. Diarrhea/Norovirus gastroenteritis: symptomatic mx. slowly improving. Elevated CPK level: Does not qualify for diagnosis of rhabdomyolysis, already downtrending. Acute UTI: Continue with Rocephin, E coli on cx. pt doesn't like/want pills. Severe right hydronephrosis: Noted in CT abdomen pelvis, admitting BUN and creatinine WNL. Urology EVALED, appreciate recommendation. We will continue treatment of UTI, no CVA tenderness on exam. f/u uro as OP. Likely demand ischemia: Troponin elevated, likely secondary to acute illness. Hypothyroidism: History of thyroidectomy. TSH elevated, T4 WNL, likely secondary to acute illness. Will need repeat TFT in 6-week after resolution of her acute illness. Continue with home dose for now. Other chronic medical conditions: c/w home meds as able. COPD: Tobacco abuse, reports quitting smoking about a week ago [employer]. DVT prophylaxis: Heparin subcu Full code pt/ot, cm to assist, expect in 1-2 days. Admission and Anticipated Discharge Date Admission Date: August 16, 2022 Subjective Patient seen and examined at bedside as a follow-up of dizziness, generalized weakness, vitamin B12 deficiency, acute UTI, right-sided hydronephrosis. Patient was sitting up in bed, on room air, NAD, reports improving appetite - may be little return of taste sensation, improving diarrhea (2 overnight and 3 in am), denies any new acute events overnight, denies any headache or chest pain or sore throat or cough. Reports same decreased sensation from ble knee below and b/l feet numbness. Reports improving dizziness and improving gait/ambulation. Physical Exam Physical Exam: GENERAL: Alert and oriented x3. NAD, on RA. Lean, thin frail appearing HEENT: No pallor, no icterus. Pupils equal, round and reactive to light. Oral mucosa moist. smooth tongue. NECK: No JVD, no neck masses. HEART: S1 and S2 heard. Regular rate and rhythm. No murmur, no gallop. RESPIRATORY SYSTEM: Normal AP diameter. No accessory muscle use. No wheezing, no crackles. ABDOMEN: Soft, bowel sounds present, nontender, no distention. CENTRAL NERVOUS SYSTEM: No facial droop. Speech is clear. Obeys simple commands. Decreased sensation BLE and BUE. Moves extremities. EXTREMITIES: No edema, no erythema seen. Results & Data Results & Data Vital Signs (Past 12 Hours) Vital Signs Temp Pulse Resp BP Pulse Ox O2 Del Method 08/19/22 08:04 36.6 C 65 20 119/68 98 Room Air 08/19/22 03:00 36.8 C 73 20 112/72 97 Room Air
[2022-08-19 14:37] LABS: HBSAG NON-REACTIVE (NON-REACTIVE); Hepatitis A Antibody IgM NON-REACTIVE (NON-REACTIVE); Hepatitis B Core Antibody IgM NON-REACTIVE (NON-REACTIVE)
--- NOTE | 2022-08-19 16:01 | Magnetic Resonance Report ---
MRI OF THE LUMBAR SPINE WITHOUT CONTRAST CLINICAL HISTORY: Bilateral lower extremity numbness and tingling. COMPARISON STUDY: No previous studies for comparison. TECHNIQUE: Utilizing a 1.5 Dorothy magnet and dedicated coil, multiplanar, multiecho imaging of the [facility] spine was performed without IV contrast. FINDINGS: For purposes of numbering on this exam, the L5-S1 disc space is assigned to axial image 13 of 15 of t lower axial sequences. There are postoperative findings consistent with L3-L4 discectomy, posterio r decompression and bilateral pedicle screw fusion. No intracanalicular mass or fluid collection is p resent. The conus terminates at the lower L1 level. Paravertebral soft tissues are unremarkable. Xiomy re right hydronephrosis is noted. This is better depicted on CT of August 16, 2022. There is no lumbar spine fracture. Discogenic changes are noted at multiple levels. There is no marrow replacement. L1-2: There is disc bulge with superimposed central disc protrusion. There is mild to moderate narrow ing of the central canal and moderate narrowing of the right lateral recess. There is mild bilateral neural foraminal stenosis. L2-3: Moderate disc space narrowing is noted. There is disc bulge, eccentric to the left. There is mo derate narrowing of the left lateral recess. No significant central canal narrowing. Neural foramen a re patent. L3-4: Discectomy is noted. There is posterior decompression without recurrent central canal stenosis. The right neural foramen is patent. The left neural foramen is suboptimally assessed due to artifact from the hardware but there is suspected mild left neural foraminal stenosis. L4-5: There is moderate disc space narrowing. There is mild disc bulge. Central canal is patent. Ther e is mild right and mild to moderate left neural foraminal stenosis. L5-S1: Moderate disc space narrowing is noted with disc bulge. There is no central canal stenosis. Mo derate to severe left and moderate right neural foraminal stenosis is present. IMPRESSION: 1. Status post L3-L4 discectomy, posterior decompression and bilateral pedicle screw fusion. 2. Mild to moderate central canal stenosis at L1-L2. Otherwise, patent central canal. 3. Multilevel neural foraminal stenosis, as above. 4. No lumbar spine fractures. No acute process within the lumbar spine. ACT 112: Negative or not required by law. Electronically signed by: Lev Li M.D. 08/19/2022 3:59 PM
[2022-08-19] MEDS: cefTRIAXone SODIUM 1,000 MG in DEXTROSE 5% AD-VAN 50 ML IV SCH (22:49)
[2022-08-20] MEDS: LEVOTHYROXINE SODIUM 75 MCG TABLET PO SCH (05:44)
[2022-08-20 07:16] LABS: Calcium 8.3 mg/dl (8.6-10.3); Creatinine Clr Calc Pharmacy 55.3 ml/min; Est GFR (Non-African American) 90.6 ml/min; Magnesium 1.7 mg/dl (1.7-2.4); Phosphorus 2.7 mg/dl (2.5-4.9); Potassium 4.1 mmol/L (3.5-5.1)
[2022-08-20] MEDS: MAGNESIUM SULFATE / D5W 1 GM/100 ML BAG IV SCH ×2 (08:33→11:03)
[2022-08-20] MEDS: FAMOTIDINE 20 MG TAB PO SCH ×2 (08:34→20:53)
[2022-08-20] MEDS: HEPARIN SOD 5,000 UNIT/0.5 ML VIAL SQ SCH ×2 (08:34→20:54)
[2022-08-20] MEDS: CYANOCOBALAMIN 1000 MCG/ML VIAL IM SCH (08:38)
[2022-08-20] MEDS ORDERED: SODIUM CHLORIDE 0.9% 1000ML 1,000 ML IV SCH (09:00)
[2022-08-20] MEDS: PSYLLIUM or GUAR GUM FIBER POWDER PACKET PO SCH (09:13)
--- NOTE | 2022-08-20 09:18 | Orthopedic Consultation ---
Date of Consultation August 20, 2022 Assessment & Plan (1) Generalized weakness: MRIs of the cervical thoracic lumbar spine available for review. Of most concern would be her cervical spine which demonstrates advanced cervical spondylosis however there is no gross cord compression. Neuroforaminal disease is of varying degrees. Plan at this time there is no indication for surgical invention. I believe the majority of her sensory deficits are nutrition related. I would recommend we see her in the next several months in the office to review her status particular with her cervical spine. There is no surgical indication at this time. History of Present Illness Reason for Consultation: Numbness in the bilateral lower extremities Attending Physician: Aiyana Wilson MD History of Present Illness This is a 72-year-old female well-known to me that presents with marked decline in status. She presents with hypokalemia malnutrition and significant B12 deficiency. She has been improving since her stay and appropriate treatment. She has some numbness in her hands particular on the left as well as the lower extremities. She denies any gross weakness or radicular complaints. Allergies Allergy/AdvReac Type Severity Reaction Status Date / Time morphine Allergy Unknown shock, Verified 08/16/22 21:19 dspnea Home Medications Medication Instructions Recorded Confirmed Type dicyclomine 10 mg capsule 10 mg PO TID PRN abdominal pain 07/24/22 08/16/22 Rx #20 caps levothyroxine 75 mcg tablet 75 mcg PO QAM 07/24/22 08/16/22 History famotidine 40 mg tablet 40 mg PO HS 08/16/22 08/16/22 History omeprazole 20 mg capsule,delayed 40 mg PO QAM 08/16/22 08/16/22 History release Patient History Medical History COPD (chronic obstructive pulmonary disease) Hypothyroid Vitamin D deficiency Social History Smoking Status: Former smoker Tobacco Type: Cigarettes Cigarettes Per Day: 1 pack a week; Smoking End Date: 2 weeks go; Second Hand Exposure: Yes; Do You Dip or Chew Tobacco: No; Hx Alcohol Use: No Hx Substance Use: No Preferred Language: Kazakh Communication Ability: Effective Awning Craftsperson Required: No Beliefs That Will Affect Care: None Current Living Situation: Spouse Feels Safe at Home: Yes Safety Concerns: Feels Safe At This Time Assistive Devices: Cane Physical Exam Physical Exam: On exam she is alert and oriented cooperative exam. Good strength testing upper lower extremities. Sensory deficits appreciated Results & Data Vital Signs (Past 12 Hours) Vital Signs Temp Pulse Pulse Resp BP BP Pulse Ox 08/20/22 03:09 36.8 C 63 18 128/78 97 08/19/22 21:57 66 08/19/22 23:52 36.5 C 71 18 128/80 99 O2 Del Method 08/20/22 03:09 Room Air 08/19/22 21:57 08/19/22 23:52 Room Air
--- NOTE | 2022-08-20 12:24 | Hospitalist Progress Note ---
Date of Service August 20, 2022 Assessment & Plan (1) Acute UTI: Plan 72-year-old female with PMH of hypothyroidism, COPD, pulmonary hypertension, osteoporosis, history of colon polyps, colonoscopy in 2018 for positive Cologuard test with a plan to repeat colonoscopy in 5 years presented to the ED due to ongoing several issues since last 1 month including loss of taste sensation/decreased appetite/significant weight loss [from 115 pounds to 90 pounds per patient], numbness in all 4 extremities with decreased sensation and dizziness. 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 MRI L spine reviewed, d/w orthospine, f/u w/ orthospine in 6months to 1 year for cervical scan findings. B12 level low normal, loss of sensation with small tongue/loss of taste and rash consistent with vitamin B12 deficiency -- 1000 mcg im vit b12 daily for a week, then weekly for a month; oral transition will depend on intrinsic factor antibody test. Discussed with neurology 08/17, ordered MMA/folate/intrinsic factor antibody levels. Ordered IM vitamin B12, will follow-up on intrinsic factor level and o ther tests. d/w neuro again with new findings on mri c-and t-spine, no new recs. We will continue to follow clinically. Neg orthostatic vitals. improving gait/appetite/sensation per pt. Discontinue home omeprazole. Use Pepcid instead. f/u w/ neuro as OP. Severe protein calorie malnutrition: Patient with decreased appetite with reported loss of weight from 115 pounds to 90 pounds in 1 month. Dietitian consult, appreciate recommendation. Encouraging for increase protein intake daily. Monitor and replete electrolytes closely. Improving appetite. Diarrhea/Norovirus gastroenteritis: symptomatic mx. slowly improving. will add psyllium for help form stool and pedialyte solution by bedside, rn communicated. Elevated CPK level: Does not qualify for diagnosis of rhabdomyolysis, already downtrending. Acute UTI: Continue with Rocephin, E coli on cx. pt doesn't like/want pills. Severe right hydronephrosis: Noted in CT abdomen pelvis, admitting BUN and creatinine WNL. Urology EVALED, appreciate recommendation. We will continue treatment of UTI, no CVA tenderness on exam. f/u uro as OP. Likely demand ischemia: Troponin elevated, likely secondary to acute illness. Hypothyroidism: History of thyroidectomy. TSH elevated, T4 WNL, likely secondary to acute illness. Will need repeat TFT in 6-week after resolution of her acute illness. Continue with home dose for now. Other chronic medical conditions: c/w home meds as able. COPD: Tobacco abuse, reports quitting smoking about a week ago [employer]. DVT prophylaxis: Heparin subcu Full code pt/ot, cm to assist, expect in 1-2 days. Admission and Anticipated Discharge Date Admission Date: August 16, 2022 Subjective Patient seen and examined at bedside as a follow-up of dizziness, generalized weakness, vitamin B12 deficiency, acute UTI, right-sided hydronephrosis. Patient was going to her bed from bathroom, was standing in the room for initial part of my bedside exam until I requested her to sit in the bed couple of times. Patient reports being dizzy in the morning which is getting better by the day. Reports having 3 loose stools overnight and 2 in the morning, reports stool forming up but still loose. Patient is having sinus tachycardia, but denies chest pain or feeling of palpitation. Encourage Pedialyte solution by bedside, encouraged increase protein intake in the diet, will give some bolus of normal saline followed by 80 mL an hour of normal saline for total of 2 L for now. Reports improvement in her gait, numbness/tingling/appetite which have been reassuring. Physical Exam Physical Exam: GENERAL: Alert and oriented x3. NAD, on RA. Lean, thin frail appearing HEENT: No pallor, no icterus. Pupils equal, round and reactive to light. Oral mucosa moist. smooth tongue. NECK: No JVD, no neck masses. HEART: S1 and S2 heard. Regular rate and rhythm. No murmur, no gallop. RESPIRATORY SYSTEM: Normal AP diameter. No accessory muscle use. No wheezing, no crackles. ABDOMEN: Soft, bowel sounds present, nontender, no distention. CENTRAL NERVOUS SYSTEM: No facial droop. Speech is clear. Obeys simple commands. Decreased sensation BLE and BUE. Moves extremities. EXTREMITIES: No edema, no erythema seen. Results & Data Results & Data Vital Signs (Past 12 Hours) Vital Signs Temp Pulse Resp BP BP Pulse Ox O2 Del Method 08/20/22 11:41 36.4 C L 64 20 111/72 100 Room Air 08/20/22 03:09 36.8 C 63 18 128/78 97 Room Air
--- NOTE | 2022-08-20 13:33 | Electrocardiogram Report ---
Test Reason : Blood Pressure : / mmHG Vent. Rate : 136 BPM Atrial Rate : 136 BPM P-R Int : 192 ms QRS Dur : 076 ms QT Int : 310 ms P-R-T Axes : 092 080 261 degrees QTc Int : 466 ms Sinus tachycardia Low voltage QRS Septal infarct , age undetermined Abnormal ECG When compared with ECG of 20-AUG-2022 08:18, (unconfirmed) Significant changes have occurred Confirmed by Brayan Simon ([id number]) on 08/20/2022 1:33:23 PM Referred By: REFERRED SELF Confirmed By:Brayan Simon
--- NOTE | 2022-08-20 13:34 | Electrocardiogram Report ---
Test Reason : Blood Pressure : / mmHG Vent. Rate : 073 BPM Atrial Rate : 073 BPM P-R Int : 168 ms QRS Dur : 078 ms QT Int : 376 ms P-R-T Axes : 089 078 094 degrees QTc Int : 414 ms Normal sinus rhythm Low voltage QRS Nonspecific ST and T wave abnormality Abnormal ECG When compared with ECG of 16-AUG-2022 19:04, QT has shortened Confirmed by Brayan Simon ([id number]) on 08/20/2022 1:33:39 PM Referred By: REFERRED SELF Confirmed By:Brayan Simon
[2022-08-20] MEDS ORDERED: SODIUM CHLORIDE 0.9% 1000ML 1,000 ML IV ONE (20:03)
[2022-08-20] MEDS: cefTRIAXone SODIUM 1,000 MG in DEXTROSE 5% AD-VAN 50 ML IV SCH (22:07)
[2022-08-21] MEDS: LEVOTHYROXINE SODIUM 75 MCG TABLET PO SCH (05:22)
[2022-08-21 07:45] LABS: Hematocrit (blood only) 38.5 % (37.0-47.0); Hemoglobin 13.2 g/dl (12.0-16.0); Mean Corpuscular Hemoglobin 30.5 pg (25.0-34.0); Mean Corpuscular Hgb Conc 34.3 g/dL (32.0-36.0); Mean Corpuscular Volume 88.9 fL (80.0-100.0); Mean Platelet Volume 10.3 fL (9.4-12.4); Platelet Count 130 K/uL (130-400); RDW Coefficient of Variation 13.4 % (11.5-14.5); RDW Standard Deviation 43.4 fL (36.4-46.3); Red Blood Count 4.33 M/uL (4.20-5.40); White Blood Count 3.99 K/ul (4.8-10.8)
[2022-08-21 08:01] LABS: Calcium 8.2 mg/dl (8.6-10.3); Magnesium 2.1 mg/dl (1.7-2.4); Potassium 3.9 mmol/L (3.5-5.1)
[2022-08-21 08:07] LABS: BUN Creatinine Ratio 25.8 (10-20); Creatinine Clr Calc Pharmacy 55.3 ml/min; Est GFR (African American) 104.4 ml/min; Est GFR (Non-African American) 90.1 ml/min; Phosphorus 2.7 mg/dl (2.5-4.9)
[2022-08-21] MEDS: FAMOTIDINE 20 MG TAB PO SCH ×2 (09:13→21:01)
[2022-08-21] MEDS: HEPARIN SOD 5,000 UNIT/0.5 ML VIAL SQ SCH ×2 (09:14→21:01)
[2022-08-21] MEDS: CYANOCOBALAMIN 1000 MCG/ML VIAL IM SCH (09:16)
[2022-08-21] MEDS: PSYLLIUM or GUAR GUM FIBER POWDER PACKET PO SCH (09:17)
--- NOTE | 2022-08-21 11:49 | Hospitalist Progress Note ---
Date of Service August 21, 2022 Assessment & Plan (1) Acute UTI: Plan 72-year-old female with PMH of hypothyroidism, COPD, pulmonary hypertension, osteoporosis, history of colon polyps, colonoscopy in 2018 for positive Cologuard test with a plan to repeat colonoscopy in 5 years presented to the ED due to ongoing several issues since last 1 month including loss of taste sensation/decreased appetite/significant weight loss [from 115 pounds to 90 pounds per patient], numbness in all 4 extremities with decreased sensation and dizziness. 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 MRI L spine reviewed, d/w orthospine, f/u w/ orthospine in 6months to 1 year for cervical scan findings. B12 level low normal, loss of sensation with small tongue/loss of taste and rash consistent with vitamin B12 deficiency -- 1000 mcg im vit b12 daily for a week, then weekly for a month; oral transition will depend on intrinsic factor antibody test. Discussed with neurology 08/17, ordered MMA/folate/intrinsic factor antibody levels. Ordered IM vitamin B12, will follow-up on intrinsic factor level and o ther tests. We will continue to follow clinically. Neg orthostatic vitals. improving gait/appetite/sensation per pt. Discontinue home omeprazole. Use Pepcid instead. f/u w/ neuro as OP. Severe protein calorie malnutrition: Patient with decreased appetite with reported loss of weight from 115 pounds to 90 pounds in 1 month. Dietitian consult, appreciate recommendation. Encouraging for increase protein intake daily. Monitor and replete electrolytes closely. Improving appetite. Diarrhea/Norovirus gastroenteritis: symptomatic mx. slowly improving. will add psyllium for help form stool and pedialyte solution by bedside. Elevated CPK level: Does not qualify for diagnosis of rhabdomyolysis, already downtrending. Acute UTI: Continue with Rocephin, E coli on cx. pt doesn't like/want pills. Severe right hydronephrosis: Noted in CT abdomen pelvis, admitting BUN and creatinine WNL. Urology EVALED, appreciate recommendation. We will continue treatment of UTI, no CVA tenderness on exam. f/u uro as OP. Likely demand ischemia: Troponin elevated, likely secondary to acute illness. Hypothyroidism: History of thyroidectomy. TSH elevated, T4 WNL, likely secondary to acute illness. Will need repeat TFT in 6-week after resolution of her acute illness. Continue with home dose for now. Other chronic medical conditions: c/w home meds as able. COPD: Tobacco abuse, reports quitting smoking about a week ago [employer]. DVT prophylaxis: Heparin subcu Full code Dispo: likely bong, will need set up for OP IM vit b12. pt/ot, cm to assist, expect in 1-2 days. Pt's given phone call, left voicemail to call us back Admission and Anticipated Discharge Date Admission Date: August 16, 2022 Subjective Patient seen and examined at bedside as a follow-up of dizziness, generalized weakness, vitamin B12 deficiency, acute UTI, right-sided hydronephrosis. Patient was sitting up in bed, RN at bedside. Patient reports no dizzy today. Reports stool forming up and reports return of taste sensation today and was able to enjoy eating/ate more today. HR has been better. No CP or palpitation. C/w Pedialyte solution by bedside, encouraged increase protein intake in the diet. Reports improvement in her gait, numbness/tingling/appetite which have been reassuring. Today Numb/tingling limited to b/l forefoot. Physical Exam Physical Exam: GENERAL: Alert and oriented x3. NAD, on RA. Lean, thin frail appearing HEENT: No pallor, no icterus. Pupils equal, round and reactive to light. Oral mucosa moist. smooth tongue. NECK: No JVD, no neck masses. HEART: S1 and S2 heard. Regular rate and rhythm. No murmur, no gallop. RESPIRATORY SYSTEM: Normal AP diameter. No accessory muscle use. No wheezing, no crackles. ABDOMEN: Soft, bowel sounds present, nontender, no distention. CENTRAL NERVOUS SYSTEM: No facial droop. Speech is clear. Obeys simple commands. Decreased sensation BLE and BUE. Moves extremities. EXTREMITIES: No edema, no erythema seen. Results & Data Results & Data Vital Signs (Past 12 Hours) Vital Signs Temp Pulse Pulse Resp BP Pulse Ox O2 Del Method 08/21/22 07:47 36.8 C 54 L 20 116/73 96 Room Air 06/18/23 07:32 63 08/21/22 04:17 36.7 C 63 18 129/77 99 Room Air
[2022-08-21] MEDS: cefTRIAXone SODIUM 1,000 MG in DEXTROSE 5% AD-VAN 50 ML IV SCH (21:01)
[2022-08-22] MEDS: LEVOTHYROXINE SODIUM 75 MCG TABLET PO SCH (06:13)
[2022-08-22 07:33] LABS: BUN Creatinine Ratio 20.9 (10-20); Calcium 8.5 mg/dl (8.6-10.3); Creatinine Clr Calc Pharmacy 49.7 ml/min; Est GFR (African American) 101.8 ml/min; Est GFR (Non-African American) 87.8 ml/min; Potassium 3.9 mmol/L (3.5-5.1)
[2022-08-22] MEDS: PSYLLIUM or GUAR GUM FIBER POWDER PACKET PO SCH (09:48)
[2022-08-22] MEDS: CYANOCOBALAMIN 1000 MCG/ML VIAL IM SCH (09:48)
[2022-08-22] MEDS: FAMOTIDINE 20 MG TAB PO SCH (09:48)
[2022-08-22] MEDS: HEPARIN SOD 5,000 UNIT/0.5 ML VIAL SQ SCH (09:48)
--- NOTE | 2022-08-22 11:59 | Discharge Summary ---
Date of Service August 22, 2022 Admission HPI Per Admitting Provider CHIEF COMPLAINT: Dizziness, falls, numbness in the hands and legs. HISTORY OF PRESENT ILLNESS: A 72-year-old female with past medical history significant for hypothyroidism, COPD, pulmonary hypertension, osteoporosis, history of positive colorectal cancer screening using Cologuard test, history of colon polyps, had colonoscopy in 2018 for positive test and at that time it was okay and planned to repeat colonoscopy in 5 years. Comes because the patient says since last 1 month, she is losing lot of weight and she is having poor appetite and numbness in the hands and legs and decreased sensation from the waist down and also she says on and off constipation and diarrhea and when she has diarrhea, she is sometimes having no control, and normal bladder movements, no bladder incontinence. She is feeling dizzy. Because she could not feel much of the feet, so she is falling frequently, sometimes crawls on the steps. As she was not getting better and does not know what is going on, she came to the hospital. She was seen by PCP on 07/28/2022 for abdominal pain and weight loss. ad EGD recently 07/19/22 done, which showed grade III reflux esophagitis and also signs of gastritis. She was given Carafate 1 gram 4 times daily, omeprazole 40 mg p.o. daily. She had CTA abd/pelvis on 08/16/22to rule out SMA syndrome,, the results are not back yet. Also plan for urology consult because of right kidney pelvocaliectasis. The patient says since last 1 week, she did not smoke, denies any alcohol use. She also had CT chest in June and it was unremarkable. The patient is worried about something going on and she wants to come back to normal. Appetite is poor. Denies any headache. The vision is okay. No runny nose, no sore throat. Occasional cough and when she has cough and she brings phlegm, she feels short of breath. Denies any earaches. No nausea, no abdominal pain. Currently resting comfortably. Somewhat upset because of this weight loss and became very thin and frail. Hemodynamically st able. ALLERGIES: MORPHINE, NEOMYCIN. PAST MEDICAL HISTORY: As mentioned above. PAST SURGICAL HISTORY: Colonoscopy with biopsy, EGD, EGD with biopsy, laparoscopy of pelvis, removal of thyroid gland, spinal fusion surgery. MEDICATIONS: The patient is on dicyclomine 10 mg p.o. t.i.d. p.r.n., famotidine 40 mg p.o. at bedtime, levothyroxine 75 mcg p.o. daily, omeprazole 40 mg p.o. daily. FAMILY HISTORY: Significant for paternal aunt has breast cancer; mother had uterine cancer, hypothyroidism, Crohn's disease; father had hypertension; sister has rheumatoid arthritis. SOCIAL HISTORY: . Smokes half pack a day for the last 37 years, says quit about week ago. Denies any alcohol use. No drug use. REVIEW OF SYSTEMS: As per HPI. Rest of the review of systems is negative. Admission Exam Per Admitting Provider GENERAL: The patient is thin and frail, not in acute distress. VITAL SIGNS: Temperature 36.5, pulse 72, respiratory rate 16, blood pressure 144/99, oxygen 97% on room air. HEENT: Pupils equal, round and reactive to light. Oral mucosa moist. NECK: No JVD. No neck masses. CARDIOVASCULAR: S1 and S2 heard. Regular rate and rhythm. No murmur, no gallop. RESPIRATORY SYSTEM: Normal AP diameter. No accessory muscle use. No wheezing or crackles. ABDOMEN: Soft, bowel sounds present, nontender, no distention. CENTRAL NERVOUS SYSTEM: Alert and oriented. Speech is clear. No facial droop. Obeys simple commands. Power 2/5 in upper extremities and 1/5 in lower extremities. Sensation decreased in lower extremities. EXTREMITIES: No edema, no erythema. Principal Diagnosis Vitamin B12 deficiency Generalized weakness/dizziness Severe protein calorie malnutrition Norovirus gastroenteritis Acute UTI Severe right hydronephrosis Demand ischemia Hypothyroidism, history of Discharge Exam GENERAL: Alert and oriented x3. NAD, on RA. Lean, thin frail appearing HEENT: No pallor, no icterus. Pupils equal, round and reactive to light. Oral mucosa moist. smooth tongue. NECK: No JVD, no neck masses. HEART: S1 and S2 heard. Regular rate and rhythm. No murmur, no gallop. RESPIRATORY SYSTEM: Normal AP diameter. No accessory muscle use. No wheezing, no crackles. ABDOMEN: Soft, bowel sounds present, nontender, no distention. CENTRAL NERVOUS SYSTEM: No facial droop. Speech is clear. Obeys simple commands. Decreased sensation b/l toes. Moves extremities. EXTREMITIES: No edema, no erythema seen. Discharge Data Allergies Allergy/AdvReac Type Severity Reaction Status Date / Time morphine Allergy Unknown shock, Verified 08/16/22 21:19 dspnea Consultations 08/16/22 22:28 ED Decision to Admit Stat 08/17/22 05:00 Consult Gastroenterology Routine 08/17/22 08:00 Consult Neurology Routine 08/17/22 08:59 Consult Urology Routine 08/18/22 11:23 Consult Orthopedic Surgery Routine Ordered Studies 08/16/22 18:24 CT abd pelvis IV con only Stat 08/16/22 18:26 CT head/brain wo con Stat 08/17/22 10:21 MR cervical spine wo con Routine MR thoracic spine wo con Routine 08/19/22 12:45 MRI Lumbar Spine [MR lumbar spine wo con] Routine Hospital Course (1) Acute UTI: Plan 72-year-old female with PMH of hypothyroidism, COPD, pulmonary hypertension, osteoporosis, history of colon polyps, colonoscopy in 2018 for positive Cologuard test with a plan to repeat colonoscopy in 5 years presented to the ED due to ongoing several issues since last 1 month including loss of taste sensation/decreased appetite/significant weight loss [from 115 pounds to 90 pounds per patient], numbness in all 4 extremities with decreased sensation and dizziness. She was managed for the following: Vitamin B12 deficiency Generalized weakness/dizziness Rule out subacute combined degeneration of spinal cord - not suggestive of demyelination of the posterior column in MRI C- and T-spine, rather with multiple moderate to severe neuroforaminal stenosis which could also contribute to her sensory changes; orthospine consulted, await recs. MRI L spine reviewed, d/w orthospine, f/u w/ orthospine in 6months to 1 year for cervical scan findings. B12 level low normal, loss of sensation with small tongue/loss of taste and rash consistent with vitamin B12 deficiency -- 1000 mcg im vit b12 daily for a week, then weekly for a month; oral transition will depend on intrinsic factor antibody test. Discussed with neurology 08/17, ordered MMA/folate/intrinsic factor antibody levels. Ordered IM vitamin B12, will follow-up on intrinsic factor level and other tests. Tests pending. We will continue to follow clinically. Neg orthostatic vitals. improving gait/appetite/sensation per pt. Discontinue home omeprazole. Use Pepcid instead. f/u w/ neuro as OP. Severe protein calorie malnutrition: Patient with decreased appetite with reported loss of weight from 115 pounds to 90 pounds in 1 month. Dietitian consult, appreciate recommendation. Encouraging for increase protein intake daily. Monitor and replete electrolytes closely. Improving appetite - pt happy with her current appetite. Diarrhea/Norovirus gastroenteritis: symptomatic mx. formed stool today. can continue use psyllium and pedialyte solution on dc for 1 more week. Elevated CPK level: Does not qualify for diagnosis of rhabdomyolysis, already downtrending. Acute UTI: s/p antibiotic course. Severe right hydronephrosis: Noted in CT abdomen pelvis, admitting BUN and creatinine WNL. Urology EVALED, appreciate recommendation. f/u uro as OP. Likely demand ischemia: Troponin elevated, likely secondary to acute illness. Hypothyroidism: History of thyroidectomy. TSH elevated, T4 WNL, likely secon olamide to acute illness. Will need repeat TFT in 6-week after resolution of her acute illness. Continue with home dose for now. Other chronic medical conditions: c/w home meds as able. COPD: Tobacco abuse, reports quitting smoking about a week ago [employer]. DVT prophylaxis: Heparin subcu Full code Dispo: likely bong, will need set up for OP IM vit b12. Patient is being discharged home with following instruction at the point of discharge: Follow-up with your primary care physician within a week time and likely you will need labs CBC/CMP/magnesium/phosphorus. For your vitamin B12 deficiency, you received 6 doses of IM vitamin B12 while in the hospital, you will need 1 more dose of IM vitamin B12 tomorrow and then every week "IM vitamin B12" for next 4 doses. Follow-up with neurology as an outpatient in 1 to 2 weeks, decision further supplementation route (IM vs PO) on vitamin B12 will depend on the final results on the test that we have already sent here in the hospital which you will need to follow-up with either your neurology office or your PCP office. You will discontinue using omeprazole. You can use Pepcid instead. Encourage protein intake in diet. You completed course of antibiotic for UTI while in hospital. Follow up w/ orthospine in 6months to 1 year for cervical scan findings. For your severe right hydronephrosis, as discussed at the bedside and as evaluated by urology while you are in the hospital, you will need to follow-up with urology as an outpatient. Do so in 1 to 4 weeks time upon discharge. You will need repeat thyroid function test in 6 weeks upon discharge, coordinate with your PCP office. Please make sure that you are able to get your medications today by calling your pharmacy before you leave the hospital so that your treatment continuity is not broken. Home Health Attestation I certify that this patient is under my care and that I, or a physicians customer assistant working with me, had a face to-face encounter that meets the home health [id number] encounter requirements with this patient. The encounter with the patient was in whole, or in part, for the following medical condition, which is the primary reason for home health care (list medical condition): I certify that, based on my findings, the following services are medically necessary home health services: My clinical findings support the need for the above services because: Further, I certify that my clinical findings support that this patient is homebound (i.e. absences from home require considerable and taxing effort and are for medical reasons or sabianist services or infrequently or of short duration when for other reasons) because: Certification for Home Health Services: Based on the above findings, I certify that this patient is confined to the home and needs intermittent group home care, physical therapy and/or speech therapy or continues to need occupational therapy. The patient is under my care, and I have initiated the establishment of the plan of care. This patient will be followed by a physician who will periodically review the plan of care. Total Time Total Time Spent Total Time Spent (In Minutes): 45 Discharge Plan Discharge Items Patient Disposition: Home - Self-Care Reason For Visit: DIZZINESS Discharge Diagnosis: Vitamin B12 deficiency Generalized weakness/dizziness Severe protein calorie malnutrition Norovirus gastroenteritis Acute UTI Severe right hydronephrosis Demand ischemia Hypothyroidism, history of Activity: Resume your previous activity Non-emergency contact: Primary Care Provider Call non-emergency contact if: you have any medication questions, your symptoms worsen and your temperature is above 101 Follow-up/Referrals: Meghan Toussaint CRNP [Nurse Practitioner] - (The Urology office will call you with a follow up appointment.) Hayes Maurer DO [Primary Care Provider] - (Date & Time 08/25/2022 3:00 PM Provider [facility] ) Diet: Regular Diet Texture: Easy to Chew Addtl Attending Provider Instructions: Follow-up with your primary care physician within a week time and likely you will need labs CBC/CMP/magnesium/phosphorus. For your vitamin B12 deficiency, you received 6 doses of IM vitamin B12 while in the hospital, you will need 1 more dose of IM vitamin B12 tomorrow and then every week "IM vitamin B12" for next 4 doses. Follow-up with neurology as an outpatient in 1 to 2 weeks, decision further supplementation route (IM vs PO) on vitamin B12 will depend on the final results on the test that we have already sent here in the hospital which you will need to follow-up with either your neurology office or your PCP office. You will discontinue using omeprazole. You can use Pepcid instead. Encourage protein intake in diet. You completed course of antibiotic for UTI while in hospital. Follow up w/ orthospine in 6months to 1 year for cervical scan findings. For your severe right hydronephrosis, as discussed at the bedside and as evaluated by urology while you are in the hospital, you will need to follow-up with urology as an outpatient. Do so in 1 to 4 weeks time upon discharge. You will need repeat thyroid function test in 6 weeks upon discharge, coordinate with your PCP office. Please make sure that you are able to get your medications today by calling your pharmacy before you leave the hospital so that your treatment continuity is not broken. Pending Studies at Discharge: Yes Stand-Alone Forms: My [facility] NCLC, Smoking Cessation Medications and DC Order Prescriptions: New cyanocobalamin (vitamin B-12) 1,000 mcg/mL Solution 1,000 mcg IM Q7D 5 Days Qty: 5 0RF Continued famotidine 40 mg tablet 40 mg PO HS levothyroxine 75 mcg tablet 75 mcg PO QAM dicyclomine 10 mg capsule 10 mg PO TID PRN (Reason: abdominal pain) Qty: 20 0RF Discontinued omeprazole 20 mg capsule,delayed release(DR/EC) 40 mg PO QAM Discharge Orders: Discharge Order (Routine); Ordered 08/22/22 Ordered By: Aiyana Wilson Admission Data Admit Date/Time: 08/16/22 23:50 Attending Provider: Wilson,Rishikesh Admit Provider: Mane Aguirre Primary Care Provider: Hayes Maurer Other Providers: Mane Aguirre ; Stewart Saldana ; Gunnar Smith ; Joey Amaya ; Serena Quiñones ; Belinda Vegas ; Natalie Banerjee ; Corey Crews ; Natalie Ferrer ; Dipak Gonzalez ; Keith Bui ; Rajeev Noble ; Larisa Boston ; Vi Sheriff ; Bird Richardson ; Mick Ziegler ; Benjamin Bishop ; Ernesto Choi ; Ernesto Thornton ; Osito Juarez
[2022-08-22 21:18] LABS: Intrinsic Factor Blocking Ab Negative (Negative); Methylmalonic Acid 202 nmol/L (87-318)
== END 2022-08-22 17:59 | disposition home or self-care (01) | DRG 640 ==
LOC: ED 17:28 → SUATTDRO 23:50 → 2N 23:50

== ENCOUNTER 2022-09-25 13:01 | Inpatient (IN) ==
--- NOTE | 2022-09-25 13:16 | Emergency Department Note ---
Impression & Plan Acute dehydration, Generalized weakness, Weight loss, abnormal, Tobacco use disorder ED Provider Note NAME: KARISSA KATZ AGE: 72 SEX: F : 1950 ARRIVES VIA: Walk-In INFORMANT: Patient, ED PROVIDER(S): Justice Wiley MD CHIEF COMPLAINT: Near syncope MEDICAL DECISION MAKING: Patient presents with concern for near syncope lightheadedness and dizziness. Patient has had an extensive work-up due to concern for worsening weight loss and weakness. Patient's blood work shows leukopenia and anemia with a normal platelet count. Kidney function with prerenal azotemia and hypocalcemia. Calcium was ordered for replacement. TSH is elevated but free T4 is normal. Patient's Anaplasma smear is not suspicious for Anaplasma. Lyme is negative. Given the patient's symptoms chronic ambulatory dysfunction and weakness I did speak the on-call hospitalist service India Dunham PA-C the patient was admitted by Dr. Walker . Of note the patient did have concerning lower extremity weakness but this has been an ongoing issue and was detailed at length in the patient's discharge summary from August 2022. The patient at that time but also had bowel incontinence. Patient had related at that time that she was crawling in order to get from room to room within her home. Even though the patient did have the symptoms, the patient did not have MRIs that warranted surgical intervention at that time of her prior admission. Additional imaging deferred to the inpatient team at this time. Prior /Outside records reviewed: I did review a discharge summary from Dr. Wilson from August 2022. Known history of hypothyroidism COPD pulmonary hypertension osteoporosis positive colorectal cancer screening history of colon polyps had been seen due to concern for losing weight poor appetite numbness in hands and legs decreased sensation from the waist down. Patient at this time reportedly was having some issues with diarrhea no control but with no significant bladder incontinence. Patient was admitted for generalized weakness vitamin B12 deficiency and the patient did have an MRI of the CT and L-spine. No suggestion of demyelination or posterior column. 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 I did review consultation with spine orthopedic Dr. Juarez did review the patient's cervical thoracic and lumbar spine MRIs. Patient does have some cervical spondylosis but no cord compression at that time. No indication for surgery at that time. Differential diagnosis: Infection, dehydration, metabolic abnormality, hypo/hyperglycemia, electrolyte disturbance, anemia, hypoxia, cardiac sources, intracerebral event, toxicologic, neurologic, as well as other pathologies. Diagnostics, as interpreted by me: ECG: Sinus bradycardia, rate of 50 with prolonged PA first-degree AV block, right axis deviation. No ST elevations T wave version in V2 Cardiac monitoring: An order was placed for continuous cardiac monitoring. The monitor shows a rate of 58 with sinus rhythm. Patient was placed on pulse oximetry Medical decision rules: None Imaging studies: See below I informally reviewed the patient's chest x-ray which does not show obvious pneumothorax. HPI: Patient presents due to concern for near syncope. The patient was lightheaded and dizzy this morning. The patient has had continued incontinence of the bowel decree sensation of the lower extremities and associated weakness. The patient had been seen for this in the past. Patient states that her weight is continue to drop. The patient does have a known history of thyroid replacement. Patient denies any chest pains or shortness of breath. Patient states that she does wear depends that she does have diarrhea as well as bowel incontinence. The patient states that she may have some decrease sensation to the vaginal to the vaginal area but she is able to sense when she is urinating. Patient denies any fevers or chills. Patient is a chronic smoker does complain of a chronic cough. Patient states that it is dry. Patient relates that she has had decreased p.o. intake energy and weight loss. PAST MEDICAL HISTORY: See Below PAST SURGICAL HISTORY: See Below SOCIAL HISTORY: See Below HOME MEDICATIONS: See Below ALLERGIES: See Below VITALS: See Below PHYSICAL EXAMINATION: GENERAL: Very thin in appearance but nontoxic. EYE EXAM: Normal conjunctiva. PERRL, no anisocoria and EOM's grossly intact w/o pain. OROPHARYNX: Moist mucus membranes, grossly normal dentition. NECK: Supple, no nuchal rigidity, no adenopathy, non-tender. No signs of meningismus. FROM of the neck with good chin to chest and neck extension. No stridor. LUNGS: Coarse breath sounds noted. Normal chest wall mechanics. HEART: Bradycardic and regular, no MRG. ABDOMEN: Abdomen soft, non-tender, no masses, no rebound or guarding. BACK: No CVA TTP. SKIN: No rashes and no bruising. UPPER EXTREMITIES: Upper extremities are grossly normal. LOWER EXTREMITIES: Grossly normal, no edema. Decreased strength bilaterally. NEURO EXAM: A&O x3, cranial nerves II-XII grossly intact, normal speech, 2 out of 5 strength bilateral lower extremities, decree sensation bilateral lower extremities Past Med/Surg History Medical History COPD (chronic obstructive pulmonary disease) Hypothyroid Vitamin D deficiency Surgical History Hx of colonoscopy Hx of lumbosacral spine surgery x3 Hx of thyroidectomy Family History Other Breast cancer Social History Smoking Status: Former smoker Tobacco Type: Cigarettes Cigarettes Per Day: 1 pack a week; Second Hand Exposure: Yes; Do You Dip or Chew Tobacco: No; Hx Alcohol Use: No Hx Substance Use: No Preferred Language: Lebanese Communication Ability: Effective Tube Dispatcher Required: No Beliefs That Will Affect Care: None Current Living Situation: Spouse Feels Safe at Home: Yes Assistive Devices: Cane and Glasses Allergies Allergies Allergy/AdvReac Type Severity Reaction Status Date / Time morphine Allergy Unknown shock, Verified 09/25/22 15:37 dspnea Home Meds Home Medications Medication Instructions Recorded Confirmed levothyroxine 75 mcg tablet 75 mcg PO QAM 07/24/22 09/25/22 famotidine 40 mg tablet 40 mg PO HS 08/16/22 09/25/22 oxybutynin chloride 5 mg 5 mg PO QAM 09/25/22 09/25/22 tablet,extended release 24 hr Previous Rx's Medication Instructions Recorded metoprolol succinate 25 mg 12.5 mg PO DAILY #15 tabs 08/22/22 tablet,extended release 24 hr Results & Data (ED) Vital Signs Vital Signs - 24 hr 09/25/22 13:07 09/25/22 13:42 09/25/22 13:43 Temperature 36.0 C L Temperature Source Temporal Artery Scan Pulse Rate 68 Pulse Rate [Left Apical] 50 L Pulse Rate from SpO2 Sensor Pulse Rhythm [Left Apical] Regular Pulse Strength [Left Apical] Normal Respiratory Rate 20 16 Respiratory Effort / Characteristics Non-Labored Non-Labored Spontaneous Respiratory Depth Normal Normal Blood Pressure 93/59 L Blood Pressure [Left Arm] 86/57 L Blood Pressure Mean 70 Blood Pressure Mean [Left Arm] 66 Pulse Oximetry 96 94 96 Oxygen Delivery Method Room Air Room Air Room Air Sepsis Recent Fever Within 48 Hours No Sepsis New/Unexplained Change in Mental Status Yes Sepsis Action Taken by Nursing No Action Required Oxygen Flow Rate - Titration Pulse Oximetry Post Tiitration 09/25/22 14:30 09/25/22 15:00 09/25/22 16:05 Temperature Temperature Source Pulse Rate 53 L Pulse Rate [Left Apical] 50 L Pulse Rate from SpO2 Sensor Pulse Rhythm [Left Apical] Pulse Strength [Left Apical] Respiratory Rate 16 Respiratory Effort / Characteristics Non-Labored Respiratory Depth Normal Blood Pressure Blood Pressure [Left Arm] 98/71 L Blood Pressure Mean Blood Pressure Mean [Left Arm] 80 Pulse Oximetry 98 85 L Oxygen Delivery Method Room Air Room Air Sepsis Recent Fever Within 48 Hours Sepsis New/Unexplained Change in Mental Status Sepsis Action Taken by Nursing Oxygen Flow Rate - Titration 3 Pulse Oximetry Post Tiitration 89 L 09/25/22 14:29 09/25/22 14:30 09/25/22 14:40 Temperature Temperature Source Pulse Rate 51 L 50 L 79 Pulse Rate [Left Apical] Pulse Rate from SpO2 Sensor 48 L 43 L 51 L Pulse Rhythm [Left Apical] Pulse Strength [Left Apical] Respiratory Rate 16 20 17 Respiratory Effort / Characteristics Respiratory Depth Blood Pressure Blood Pressure [Left Arm] Blood Pressure Mean Blood Pressure Mean [Left Arm] Pulse Oximetry 96 96 96 Oxygen Delivery Method Sepsis Recent Fever Within 48 Hours Sepsis New/Unexplained Change in Mental Status Sepsis Action Taken by Nursing Oxygen Flow Rate - Titration Pulse Oximetry Post Tiitration 09/25/22 14:50 09/25/22 15:00 09/25/22 15:00 Temperature Temperature Source Pulse Rate 55 L 50 L Pulse Rate [Left Apical] Pulse Rate from SpO2 Sensor 48 L Pulse Rhythm [Left Apical] Pulse Strength [Left Apical] Respiratory Rate 16 17 19 Respiratory Effort / Characteristics Respiratory Depth Blood Pressure 98/71 L Blood Pressure [Left Arm] Blood Pressure Mean 80 Blood Pressure Mean [Left Arm] Pulse Oximetry 97 98 Oxygen Delivery Method Sepsis Recent Fever Within 48 Hours Sepsis New/Unexplained Change in Mental Status Sepsis Action Taken by Nursing Oxygen Flow Rate - Titration Pulse Oximetry Post Tiitration 09/25/22 15:10 09/25/22 15:20 09/25/22 15:30 Temperature Temperature Source Pulse Rate 52 L 51 L 50 L Pulse Rate [Left Apical] Pulse Rate from SpO2 Sensor 48 L 49 L Pulse Rhythm [Left Apical] Pulse Strength [Left Apical] Respiratory Rate 19 12 12 Respiratory Effort / Characteristics Respiratory Depth Blood Pressure Blood Pressure [Left Arm] Blood Pressure Mean Blood Pressure Mean [Left Arm] Pulse Oximetry 98 98 Oxygen Delivery Method Sepsis Recent Fever Within 48 Hours Sepsis New/Unexplained Change in Mental Status Sepsis Action Taken by Nursing Oxygen Flow Rate - Titration Pulse Oximetry Post Tiitration 09/25/22 15:40 09/25/22 15:50 09/25/22 16:00 Temperature Temperature Source Pulse Rate 49 L 45 L 61 Pulse Rate [Left Apical] Pulse Rate from SpO2 Sensor 49 L 47 L 55 L Pulse Rhythm [Left Apical] Pulse Strength [Left Apical] Respiratory Rate 13 15 17 Respiratory Effort / Characteristics Respiratory Depth Blood Pressure Blood Pressure [Left Arm] Blood Pressure Mean Blood Pressure Mean [Left Arm] Pulse Oximetry 96 96 89 L Oxygen Delivery Method Sepsis Recent Fever Within 48 Hours Sepsis New/Unexplained Change in Mental Status Sepsis Action Taken by Nursing Oxygen Flow Rate - Titration Pulse Oximetry Post Tiitration 09/25/22 16:10 09/25/22 16:20 Temperature Temperature Source Pulse Rate 48 L 58 L Pulse Rate [Left Apical] Pulse Rate from SpO2 Sensor 48 L 56 L Pulse Rhythm [Left Apical] Pulse Strength [Left Apical] Respiratory Rate 13 16 Respiratory Effort / Characteristics Respiratory Depth Blood Pressure Blood Pressure [Left Arm] Blood Pressure Mean Blood Pressure Mean [Left Arm] Pulse Oximetry 92 97 Oxygen Delivery Method Sepsis Recent Fever Within 48 Hours Sepsis New/Unexplained Change in Mental Status Sepsis Action Taken by Nursing Oxygen Flow Rate - Titration Pulse Oximetry Post Tiitration Home Medications Current Medication List: was personally reviewed by me Laboratory Data Attestation: I reviewed the patient's lab results. 09/25/22 14:22 09/25/22 14:22 Lab Results 09/25/22 09/25/22 09/25/22 Range/Units 14:22 14:22 14:22 WBC 3.50 L (4.8-10.8) K/ul RBC 3.73 L (4.20-5.40) M/uL Hgb 11.6 L (12.0-16.0) g/dl Hct 34.4 L (37.0-47.0) % MCV 92.2 (80.0-100.0) fL MCH 31.1 (25.0-34.0) pg MCHC 33.7 (32.0-36.0) g/dL RDW Std Deviation 51.5 H (36.4-46.3) fL RDW Coeff of Minal 15.2 H (11.5-14.5) % Plt Count 188 (130-400) K/uL MPV 9.5 (9.4-12.4) fL Immature Gran % (Auto) 0.0 % Neut % (Auto) 74.3 % Lymph % (Auto) 19.1 % [place] % (Auto) 6.3 % Eos % (Auto) 0.0 % Baso % (Auto) 0.3 % Neut # (Auto) 2.60 (1.40-6.50) K/uL Lymph # (Auto) 0.67 L (1.2-3.4) K/uL [place] # (Auto) 0.22 (0.11-0.59) K/uL Eos # (Auto) 0.00 (0-0.50) K/uL Baso # (Auto) 0.01 (0-0.2) K/uL Immature Gran # (Auto) 0.00 L (0.01-0.20) K/uL Sodium 137 (136-145) mmol/L Potassium 4.1 (3.5-5.1) mmol/L Chloride 107 (98-107) mmol/L Carbon Dioxide 26 (21-32) mmol/L Anion Gap 4 (3-11) BUN 28 H (6-23) mg/dl Creatinine 0.89 (0.6-1.2) mg/dl Est Cr Clr Drug Dosing Not Reportable Est GFR ( Amer) 75.0 ml/min Est GFR (Non-Af Amer) 64.7 ml/min BUN/Creatinine Ratio 31.5 H (10-20) Glucose 101 H (70-99(Fasting)) mg/dl Calcium 7.9 L (8.6-10.3) mg/dl Magnesium 2.4 (1.7-2.4) mg/dl Total Bilirubin 0.8 (0.2-1.0) mg/dl AST 33 (13-39) U/L ALT 30 (7-52) U/L Alkaline Phosphatase 75 (34-104) U/L Total Protein 5.4 L (6.0-8.3) gm/dl Albumin 3.1 L (3.4-5.0) gm/dl Globulin 2.3 L (2.5-4.0) gm/dl Albumin/Globulin Ratio 1.3 (0.9-2) Procalcitonin (0-0.5) ng/ml TSH (0.300-4.500) uIu/ml Free T4 (0.61-1.60) ng/dl Anaplasma Smear See Comment Lyme Disease IgG Ab Negative (Negative) Lyme Disease IgM Ab Negative (Negative) 09/25/22 09/25/22 Range/Units 14:22 14:22 WBC (4.8-10.8) K/ul RBC (4.20-5.40) M/uL Hgb (12.0-16.0) g/dl Hct (37.0-47.0) % MCV (80.0-100.0) fL MCH (25.0-34.0) pg MCHC (32.0-36.0) g/dL RDW Std Deviation (36.4-46.3) fL RDW Coeff of Minal (11.5-14.5) % Plt Count (130-400) K/uL MPV (9.4-12.4) fL Immature Gran % (Auto) % Neut % (Auto) % Lymph % (Auto) % [place] % (Auto) % Eos % (Auto) % Baso % (Auto) % Neut # (Auto) (1.40-6.50) K/uL Lymph # (Auto) (1.2-3.4) K/uL [place] # (Auto) (0.11-0.59) K/uL Eos # (Auto) (0-0.50) K/uL Baso # (Auto) (0-0.2) K/uL Immature Gran # (Auto) (0.01-0.20) K/uL Sodium (136-145) mmol/L Potassium (3.5-5.1) mmol/L Chloride (98-107) mmol/L Carbon Dioxide (21-32) mmol/L Anion Gap (3-11) BUN (6-23) mg/dl Creatinine (0.6-1.2) mg/dl Est Cr Clr Drug Dosing Est GFR ( Amer) ml/min Est GFR (Non-Af Amer) ml/min BUN/Creatinine Ratio (10-20) Glucose (70-99(Fasting)) mg/dl Calcium (8.6-10.3) mg/dl Magnesium (1.7-2.4) mg/dl Total Bilirubin (0.2-1.0) mg/dl AST (13-39) U/L ALT (7-52) U/L Alkaline Phosphatase (34-104) U/L Total Protein (6.0-8.3) gm/dl Albumin (3.4-5.0) gm/dl Globulin (2.5-4.0) gm/dl Albumin/Globulin Ratio (0.9-2) Procalcitonin 0.05 (0-0.5) ng/ml TSH 28.243 H (0.300-4.500) uIu/ml Free T4 0.86 (0.61-1.60) ng/dl Anaplasma Smear Lyme Disease IgG Ab (Negative) Lyme Disease IgM Ab (Negative) Administered Medications Lactated Ringer's (Lr) 1,000 mls @ 80 mls/hr IV .[id number] Stop: 09/26/22 18:44 Last Admin: 09/25/22 18:05 Dose: 80 mls/hr Documented By: SM Discontinued Medications Albuterol (Albut/Ipratrop 3mg/0.5mg Neb 3 Ml Vial) 3 ml NEB NOW STA; Protocol Stop: 09/25/22 17:17 Last Admin: 09/25/22 18:18 Dose: Not Given Documented By: JMAYANK Sodium Chloride (Nss 1000ml) 1,000 mls @ 999 mls/hr IV .[id number] Stop: 09/25/22 14:45 Last Infusion: 09/25/22 16:19 Dose: 0 mls/hr Documented By: Admin: 09/25/22 13:47 Dose: 999 mls/hr Documented By: ROSALES Calcium Gluconate () 1,000 mg in 60 mls @ 240 mls/hr IV NOW STA Stop: 09/25/22 16:04 Last Infusion: 09/25/22 16:19 Dose: 0 mls/hr Documented By: Admin: 09/25/22 15:57 Dose: 240 mls/hr Documented By: LOUISA Imaging Data Radiologist's Impression: Chest X-Ray 09/25/22 13:32 XR chest 1V portable CLINICAL HISTORY: Cough. COMPARISON STUDY: Chest radiograph August 16, 2022. FINDINGS: Lung volumes are normal. Lungs are clear. There is no pneumothorax or pleural effusion. Cardiac size is normal. Mediastinal contours are normal. There is no evidence for pulmonary edema. IMPRESSION: No acute cardiopulmonary findings. No change in appearance of the chest. ACT 112: Negative or not required by law. Electronically signed by: Lev Li M.D. 09/25/2022 2:17 PM Discharge Plan Visit Data Chief Complaint: Syncope (Near Syncope) Stated Complaint: SYNCOPE, BLURRED VISION, REFERRED BY DOCTOR ED Provider: Justice Wiley Discharge Problem: Acute dehydration, Generalized weakness, Weight loss, abnormal, Tobacco use disorder Patient Disposition: Admitted As Inpatient Discharge Instructions Interventions: ED Discharge Assessment Last Done: 09/25/22 17:22
[2022-09-25] MEDS ORDERED: SODIUM CHLORIDE 0.9% 1000ML 1,000 ML IV SCH (13:45)
--- NOTE | 2022-09-25 14:18 | XRay Report ---
XR chest 1V portable CLINICAL HISTORY: Cough. COMPARISON STUDY: Chest radiograph August 16, 2022. FINDINGS: Lung volumes are normal. Lungs are clear. There is no pneumothorax or pleural effusion. Car diac size is normal. Mediastinal contours are normal. There is no evidence for pulmonary edema. IMPRESSION: No acute cardiopulmonary findings. No change in appearance of the chest. ACT 112: Negative or not required by law. Electronically signed by: Lev Li M.D. 09/25/2022 2:17 PM
[2022-09-25 14:42] LABS: Basophils # (auto) 0.01 K/uL (0-0.2); Basophils % (auto) 0.3 %; Hematocrit (blood only) 34.4 % (37.0-47.0); Hemoglobin 11.6 g/dl (12.0-16.0); Lymphocytes # (auto) 0.67 K/uL (1.2-3.4); Lymphocytes % (auto) 19.1 %; Mean Corpuscular Hemoglobin 31.1 pg (25.0-34.0); Mean Corpuscular Hgb Conc 33.7 g/dL (32.0-36.0); Mean Corpuscular Volume 92.2 fL (80.0-100.0); Mean Platelet Volume 9.5 fL (9.4-12.4); Monocytes # (auto) 0.22 K/uL (0.11-0.59); Monocytes % (auto) 6.3 %; Neutrophils % (auto) 74.3 %; Platelet Count 188 K/uL (130-400); RDW Coefficient of Variation 15.2 % (11.5-14.5); RDW Standard Deviation 51.5 fL (36.4-46.3); Red Blood Count 3.73 M/uL (4.20-5.40)
[2022-09-25 14:56] LABS: Alanine Aminotransferase 30 U/L (7-52); Albumin Globulin Ratio 1.3 (0.9-2); Albumin Level 3.1 gm/dl (3.4-5.0); Alkaline Phosphatase 75 U/L (34-104); Anion Gap 4 (3-11); Aspartate Aminotransferase 33 U/L (13-39); BUN Creatinine Ratio 31.5 (10-20); Bilirubin,Total 0.8 mg/dl (0.2-1.0); Blood Urea Nitrogen 28 mg/dl (6-23); Calcium 7.9 mg/dl (8.6-10.3); Carbon Dioxide 26 mmol/L (21-32); Chloride 107 mmol/L (98-107); Est GFR (Non-African American) 64.7 ml/min; Globulin 2.3 gm/dl (2.5-4.0); Glucose 101 mg/dl (70-99(Fasting)); Magnesium 2.4 mg/dl (1.7-2.4); Potassium 4.1 mmol/L (3.5-5.1); Sodium 137 mmol/L (136-145); Total Protein 5.4 gm/dl (6.0-8.3)
[2022-09-25 15:11] LABS: Thyroid Stimulating Hormone 28.243 uIu/ml (0.300-4.500)
[2022-09-25 15:48] LABS: T4 Free Thyroxine 0.86 ng/dl (0.61-1.60)
[2022-09-25] MEDS ORDERED: CALCIUM GLUCONATE 1,000 MG/60 ML BAG IV STA (15:50)
[2022-09-25 15:52] LABS: Lyme Ab IgG w/WB Rflx Negative (Negative); Lyme Ab IgM w/WB Rflx Negative (Negative)
--- NOTE | 2022-09-25 16:15 | History & Physical Report ---
Date of Service September 25, 2022 Assessment & Plan (1) Generalized weakness: (2) Weight loss, abnormal: (3) Hypoxia: Plan This is a 72-year-old female who has a significant past medical history of COPD, history of thyroidectomy and now acquired hypothyroidism, pulmonary hypertension who presents to ED secondary to feeling lightheaded and dizzy. Pt with severe malnutrition, weight continues to decline as she states she is now down to 84lbs. She states she was 115lbs approx 1 month ago. ED weight reveals 50kg, but seems this might be a bit high as she is severely emaciated. Etiology of weightloss is still unclear. She has had CT chest to r/o lung ca, CT a/p does not reveal mass but has been seeing a R severe hydronephrosis for which she is following urology for. Her last colonoscopy was in 2018 and was recommended to follow-up in 5 years. She states that she has not been compliant with mammograms but has not felt any breast lumps. Generally she feels significantly weak, numbness and tingling to hands and feet despite vitamin B12 supplementation and difficulty ambulating due to lower extremity weakness. Generalized weakness Unintentional weight loss Severe protein calorie malnutrition Dizziness Admit to telemetry Consult dietitian Hold current metoprolol as patient was sinus bradycardia in ED in high 40s and 50s, will continue to monitor on telemetry -metoprolol was initiated last admission due to PAT will obtain echocardiogram, orthostatics and carotid doppler in regards to pts b/l LE weakness during last admission underwent C/T/Lspine MRI all were reviewed by Dr. Juarez and felt not etiology of weakness it was felt possibly 2/2 low normal B12 value which was supplemented but pt still with sx and worsening will obtain MRI Brain w and w/o increase levothyroxine and TSH has been uptrending 5 in march, 24 in August and now 28 despite T4. Increase to 88mcg and will need repeat TSH/T4 as OP in 4 weeks may need to consider discussion with endo consider re consulting neuro for formal eval , last was eval by tele stroke depending on MRI findings obtain UA to r/o UTI obtain stool culture - pt reports chronic loose stool COPD with mild exacerbation Tobacco abuse Hypoxia pt with mild hypoxia, wheezing give neb tx x 1 now and QID prn incentive spirometer Prednisone oral 40mg daily x 5 days; Doxycycline 100 mg bid x 7 days. encourage cessation, pt in process of quiting Hypothyroidism 2/2 removal of thyroid TSH 28, low normal free t4 will increase levothyroxine to 88mcg daily, will need repeat at OP Anemia hgb decreased 11.6/34.4 this admission pt denies dark stool obtain iron panel in am. folate/b12 normal last hospital stay Dehydration 2/2 poor intake continue IVF DVT ppx: Sq Heparin BID FULL CODE PCP: Erasto PT was seen and examined in collaboration with Dr. Walker, please see addendum A total of 75 was spent coordinating, documenting, and providing care for this patient excluding time spent in the performance of separately billed services. This included personally viewing all current laboratories and imaging studies, medication reconciliation, outpatient chart review, and discussion with specialists. History of Present Illness Chief Complaint: dizziness/lightheadedness. Primary Care Provider: Hayes Maurer, This is a 72-year-old female who has a significant past medical history of COPD, history of thyroidectomy and now acquired hypothyroidism, pulmonary hypertension who presents to ED secondary to feeling lightheaded and dizzy. Of significance patient was hospitalized 08/16 to 08/22/2022 secondary to dizziness, falls, numbness in hands and legs. She was found to have a vitamin B12 deficiency. She received appropriate vitamin B12 supplementation and her intrinsic antibody test was negative. She was seen and evaluated by neurology who recommended [facility] MRIs orthopedic spine reviewed images and felt a most concerning would be her cervical spine which demonstrated advanced cervical spondylosis however no gross cord compression was seen. It was felt that her sensory deficits or nutrition related. Patient also reported weight loss of 115 pounds to 90 pounds in 1 month. She was treated with appropriate antibiotics for E. coli UTI. She was also found to have severe right hydronephrosis and was seen and evaluated by urology who recommended follow-up as an outpatient. She presents back to hospital today secondary to dizziness and lightheadedness. In regards to patient's severe right hydronephrosis she did have a Lasix emptying study done by urology as an outpatient which shows severe obstruction. It is recommended by urologist that she could undergo cystoscopy with stent placement if symptoms are persistent. Patient did have lung cancer screening CT in June 2022 which recommended to continue routine screenings and was negative. She also underwent CTA abdomen pelvis in July 2022 which was negative, did reveal malpositioned right kidney with pelvocaliectasis. Patient feels she never should have been discharged when she was discharged during her last hospitalization. She is very unhappy with that. She has continued to get weak since her hospitalization and has a continued to lose weight. She states she is now down to 84 pounds from 115 pounds in the last 1 to 2 months. She states she has a very good appetite despite weight loss and does not understand, "where is his weight going?" She does have history of COPD and does admit to increased wheezing. She does have chronic shortness of breath but does not feel it is unchanged. She complains of dizziness and having a, "off balance feeling," whenever walking. She states that she is so weak she tends to have to crawl places. She does not take any protein shakes that she does not like them. She also admits to being incontinent of stool and is currently wearing a depends. She states that she is continent of urine. She denies any burning when she pees, dysuria, increased urgency or frequency with urination, nausea, vomiting or abdominal pain. She denies any fever, chills, sweats, chest pain or hemoptysis. In ED patient was slightly hypoxic requiring 2 L of oxygen via nasal cannula. Chest x-ray was negative for any acute abnor mality. Her TSH was elevated at 28 but free T4.86. Allergies Allergy/AdvReac Type Severity Reaction Status Date / Time morphine Allergy Unknown shock, Verified 09/25/22 15:37 dspnea Home Medications Medication Instructions Recorded Confirmed Type levothyroxine 75 mcg tablet 75 mcg PO QAM 07/24/22 09/25/22 History famotidine 40 mg tablet 40 mg PO HS 08/16/22 09/25/22 History metoprolol succinate 25 mg 12.5 mg PO DAILY #15 tabs 08/22/22 09/25/22 Rx tablet,extended release 24 hr oxybutynin chloride 5 mg 5 mg PO QAM 09/25/22 09/25/22 History tablet,extended release 24 hr Past Med/Surg History Medical History COPD (chronic obstructive pulmonary disease) Hypothyroid Vitamin D deficiency Surgical History Hx of colonoscopy Hx of lumbosacral spine surgery x3 Hx of thyroidectomy Family History Other Breast cancer Social History Smoking Status: Former smoker Tobacco Type: Cigarettes Cigarettes Per Day: 1 pack a week; Second Hand Exposure: Yes; Do You Dip or Chew Tobacco: No; Hx Alcohol Use: No Hx Substance Use: No Preferred Language: Telugu Communication Ability: Effective Hip Hop Dancer Required: No Beliefs That Will Affect Care: None Current Living Situation: Spouse Feels Safe at Home: Yes Assistive Devices: Cane and Glasses Review of Systems Review of Systems: All systems reviewed & are unremarkable except as noted in HPI & below Physical Exam Physical Exam: Constitutional: Thin, cachectic and emaciated F, sunken in face, vitals as above, NAD, sitting up in bed, pleasant, conversing easily Head: Normocephalic, Atraumatic Eyes: PERRL, conjunctivae normal, anicteric sclerae , exopthalmos ENMT: external ear and nose normal, oropharynx normal dry membranes Neck: trachea midline, no thyromegaly scar noted from previous thyroidectomy, normal visual inspection Respiratory: normal respiratory effort, lungs clear to auscultation, bilateral exp wheezing, no rales, rhonchi. Normal insp/exp effort, no accessory muscle use on 2 L of O2 via NC Cardiovascular: RRR, no murmur, no edema Vessels: no JVD or carotid bruit Chest: normal inspection of chest Abdomen:+protuberant abd despite cachectic appearance, normal bowel sounds, soft, nontender, no hepatosplenomegaly Musculoskeletal: no cyanosis or clubbing, strength 2/5 b/l lower ext, patellar reflex +1, strength in upper ext 4/5 Skin: no rashes, warm and dry normal turgor Neurologic: PERRL, EOMI, accommodation nl, no face palsy, no dysarthria CN's II-XI intact bilaterally and moves all extremities Psychiatric: A+Ox3, euthymic affect Lymphatic: no cervical or axillary lymphadenopathy : deferred Results & Data Results & Data Vital Signs (Past 12 Hours) Vital Signs Temp Pulse Pulse Resp BP BP Pulse Ox 09/25/22 16:05 85 L 09/25/22 15:00 50 L 16 98/71 L 98 09/25/22 14:30 53 L 09/25/22 13:43 50 L 16 86/57 L 96 09/25/22 13:42 94 09/25/22 13:07 36.0 C L 68 20 93/59 L 96 O2 Del Method 09/25/22 16:05 Room Air 09/25/22 15:00 Room Air 09/25/22 14:30 09/25/22 13:43 Room Air 09/25/22 13:42 Room Air 09/25/22 13:07 Room Air Diagnostic Findings Chest X-Ray 09/25/22 13:32 XR chest 1V portable CLINICAL HISTORY: Cough. COMPARISON STUDY: Chest radiograph August 16, 2022. FINDINGS: Lung volumes are normal. Lungs are clear. There is no pneumothorax or pleural effusion. Cardiac size is normal. Mediastinal contours are normal. There is no evidence for pulmonary edema. IMPRESSION: No acute cardiopulmonary findings. No change in appearance of the chest. ACT 112: Negative or not required by law. Electronically signed by: Lev Li M.D. 09/25/2022 2:17 PM Medications Administered Medication List Discontinued Medications Sodium Chloride (Nss 1000ml) 1,000 mls @ 999 mls/hr IV .Q1H1M KVNG Stop: 09/25/22 14:45 Last Admin: 09/25/22 13:47 Dose: 999 mls/hr Documented By: ROSALES Calcium Gluconate () 1,000 mg in 60 mls @ 240 mls/hr IV NOW STA Stop: 09/25/22 16:04 Last Admin: 09/25/22 15:57 Dose: 240 mls/hr Documented By: GGG ECG Rate (beats per minute): 56 Rhythm: sinus bradycardia Findings: + PAC and + PVC COVID-19 Results Results COVID-19 Adm Lab Results: RBC 3.73 M/uL (4.20-5.40) L 09/25/22 WBC 3.50 K/ul (4.8-10.8) L 09/25/22 Hgb 11.6 g/dl (12.0-16.0) L 09/25/22 Hct 34.4 % (37.0-47.0) L 09/25/22 Plt Count 188 K/uL (130-400) 09/25/22 Neutrophils (%) (Auto) 74.3 % 09/25/22 Lymphocytes (%) (Auto) 19.1 % 09/25/22 Monocytes # (Auto) 0.22 K/uL (0.11-0.59) 09/25/22 Eosinophils # (Auto) 0.00 K/uL (0-0.50) 09/25/22 Immature Granulocyte % (Auto) 0.0 % 09/25/22 Neutrophils # (Auto) 2.60 K/uL (1.40-6.50) 09/25/22 Lymphocytes # (Auto) 0.67 K/uL (1.2-3.4) L 09/25/22 Monocytes # (Auto) 0.22 K/uL (0.11-0.59) 09/25/22 Eosinophils # (Auto) 0.00 K/uL (0-0.50) 09/25/22 Basophils # (Auto) 0.01 K/uL (0-0.2) 09/25/22 Immature Granulocyte # (Auto) 0.00 K/uL (0.01-0.20) L 09/25 Na 137 mmol/L (136-145) 09/25/22 K 4.1 mmol/L (3.5-5.1) 09/25/22 Cl 107 mmol/L (98-107) 09/25/22 CO2 26 mmol/L (21-32) 09/25/22 Anion Gap 4 (3-11) 09/25/22 BUN 28 mg/dl (6-23) H 09/25/22 Creatinine 0.89 mg/dl (0.6-1.2) 09/25/22 BUN/Creatinine Ratio 31.5 (10-20) H 09/25/22 Glucose Level 101 mg/dl (70-99(Fasting)) H 09/25/22 Ca 7.9 mg/dl (8.6-10.3) L 09/25/22 Total Bilirubin 0.8 mg/dl (0.2-1.0) 09/25/22 AST/SGOT 33 U/L (13-39) 09/25/22 ALT/SGPT 30 U/L (7-52) 09/25/22 Alkaline Phosphatase 75 U/L (34-104) 09/25/22 Total Protein 5.4 gm/dl (6.0-8.3) L 09/25/22 Albumin 3.1 gm/dl (3.4-5.0) L 09/25/22 Globulin 2.3 gm/dl (2.5-4.0) L 09/25/22 Albumin/Globulin Ratio 1.3 (0.9-2) 09/25/22 Procalcitonin 0.05 ng/ml (0-0.5) 09/25/22 SARS-CoV-2, RNA, NAAT NEGATIVE (NEGATIVE) 09/25/22 Chest X-Ray 09/25/22 Code Status & VTE Plan Code Status FULL CODE Supervising Physician Co-Signing Physician Notes Pt seen and examined by myself, Tamia Walker MD on the day of service. Care was coordinated with India Dunham PA-C. Please refer to her note for additional information. 72yoF with severe malnutrition. Appears cachectic, now with fecal incontinence. States she eats, denies Hx of an eating disorder. Denies having recent scopes done for further evaluation. Previously scanned with CT abd/pelvis, chest xray, CT head, MRI c, thoracic and lumbar spine. MRI brain ordered as well as CT chest. GI consult for cachexia, fecal incontinence- celiac disease panel ordered, possible EGD/colonoscopy? Sincerely appreciate recs. Consider other routine screenings: mammogram, Hx of abnormal pap? Nutrition consult. Otherwise as above.
[2022-09-25] MEDS ORDERED: ALBUT/IPRATROP 3MG/0.5MG NEB 3 ML VIAL NEB STA (17:16)
[2022-09-25] MEDS ORDERED: POLYETHYLENE (MIRALAX) 17 GM PACK PO PRN (17:56)
[2022-09-25] MEDS ORDERED: ACETAMINOPHEN 325 MG TAB PO PRN (17:56)
[2022-09-25] MEDS ORDERED: ONDANSETRON INJ 2 MG/ML 2 ML VIAL IV PRN (17:56)
[2022-09-25] MEDS ORDERED: ALUMINUM/MAGNESIUM SUSP 30 ML UDC PO PRN (17:56)
[2022-09-25] MEDS ORDERED: MAGNESIUM HYDROXIDE SUSP 30 ML UDC PO PRN (17:56)
[2022-09-25] MEDS: LACTATED RINGER'S 1,000 ML IV SCH (18:05)
[2022-09-25] MEDS: FAMOTIDINE 40 MG TABLET PO SCH (20:07)
[2022-09-25] MEDS: HEPARIN SOD 5,000 UNIT/0.5 ML VIAL SQ SCH (20:07)
[2022-09-25] MEDS: predniSONE 20 MG TAB PO SCH (20:17)
[2022-09-25] MEDS: DOXYCYCLINE HYCLATE 100 MG CAP PO SCH (20:17)
[2022-09-25 21:37] LABS: Appearance Urine Turbid (Clear); Bacteria Urine Automated 1+ (Negative); Bilirubin Urine Negative (Negative); Blood Urine 2+ (Negative); Color Urine Dark Yellow; Epithelial Cell Urine Auto >30 /lpf (0-5); Glucose Urine UA Negative (Negative); Ketones Urine Trace (Negative); Leukocyte Esterase Urine 3+ (Negative); Nitrite Urine Positive (Negative); Protein Urine 2+ (Negative); RBC Urine Automated 0-4 /hpf (0-4); Specific Gravity Urine 1.018 (1.000-1.030); Urobilinogen Urine Negative (Negative); WBC Urine Automated >30 /hpf (0-5); pH Urine 5.5 (4.5-7.5)
[2022-09-25 22:01] LABS: Cast Urine Automated 0 /lpf (0-5)
[2022-09-25 22:56] LABS: Adenovirus F 40/41 PCR Not Detected (NotDetected); Astrovirus PCR Not Detected (NotDetected); Campylobacter PCR Not Detected (NotDetected); Cryptosporidium PCR Not Detected (NotDetected); Cyclospora cayetanensis PCR Not Detected (NotDetected); Entamoeba histolytica PCR Not Detected (NotDetected); Enteroaggregative E.coli(EAEC) Not Detected (NotDetected); Enteropathogenic E.coli (EPEC) Not Detected (NotDetected); Enterotoxigenic E.coli (ETEC) Not Detected (NotDetected); Giardia lamblia PCR Not Detected (NotDetected); Plesiomonas shigelloides PCR Not Detected (NotDetected); Rotavirus A PCR Not Detected (NotDetected); Salmonella PCR Not Detected (NotDetected); Sapovirus PCR Not Detected (NotDetected); Shiga-like Toxin E.coli (STEC) Not Detected (NotDetected); Shigella/Enteroinvasive E.coli Not Detected (NotDetected); Vibrio cholerae PCR Not Detected (NotDetected); Vibrio species PCR Not Detected (NotDetected); Yersinia enterocolitica PCR Not Detected (NotDetected)
[2022-09-25 22:59] LABS: Norovirus GI/GII PCR DETECTED (NotDetected)
--- NOTE | 2022-09-25 23:21 | CT Scan Report ---
Exam(s): CT CHEST Without Contrast EXAM: CT Chest Without Intravenous Contrast CLINICAL HISTORY: Reason for exam: cough, cachexia. TECHNIQUE: Axial computed tomography images of the chest without intravenous contrast. CTDI is 6.17 mGy and DLP is 214.73 mGy-cm. Automated exposure control was utilized for the study. A dose lowering technique was utilized adhering to the principles of ALARA. COMPARISON: None. FINDINGS: Limitations: Exam is limited due to minimal amount of fat which makes distinction of structures difficult. Lungs: Unremarkable. No mass. No consolidation. Pleural space: Mild biapical pleural thickening with subpleural scarring. Otherwise clear lung parenchyma. No pneumothorax. No significant effusion. Heart: Unremarkable. No significant pericardial effusion. No significant coronary artery calcifications. Normal cardiac size. Bones/joints: Diffuse osteopenia with multilevel degenerative disease of the spine. No acute fracture or subluxation. Soft tissues: There is diffuse decrease in the amount of fat consistent with known cachexia. Vasculature: Calcified atherosclerotic disease of aorta with no aneurysm. Lymph nodes: Unremarkable. No enlarged lymph nodes. IMPRESSION: 1. Biapical pleural thickening with subpleural scarring, otherwise no acute cardiopulmonary disease. 2. No pleural effusion or pneumothorax. Electronically signed by: Nicolette Anaya MD 09/25/22 23:20 PM
[2022-09-25] MEDS ORDERED: GADOBUTROL 7.5ML VIAL IV ONE (23:28)
--- NOTE | 2022-09-26 00:05 | Magnetic Resonance Report ---
Exam(s): MRI HEAD W/WO Contrast IV Amt: 4mL Gadavist given IV EXAM: MR Head Without and With Intravenous Contrast CLINICAL HISTORY: Reason for exam: b/l weakness, significant weight loss. TECHNIQUE: Magnetic resonance images of the head/brain without and with intravenous contrast in multiple planes. CONTRAST: Patient received 4mL Gadavist given IV of IV contrast COMPARISON: CT brain 08/16/2022. FINDINGS: Brain: Mild generalized brain atrophy. Increased signal within the deep periventricular white matter noted on FLAIR and T2 images most compatible with microangiopathic white matter disease. No hemorrhage. No restricted diffusion abnormality to suggest acute stroke. Ventricles: Unremarkable. No ventriculomegaly. Bones/joints: Unremarkable. Soft tissues: Unremarkable. No abnormal enhancement following contrast administration. Sinuses: Unremarkable as visualized. No acute sinusitis. Mastoid air cells: Unremarkable as visualized. No mastoid effusion. Orbits: Unremarkable as visualized. IMPRESSION: 1. Chronic changes as described. No acute stroke or intracranial hemorrhage. 2. No intracranial enhancing lesion. Electronically signed by: Nicolette Anaya MD 09/26/22 00:04 AM
[2022-09-26 05:10] LABS: Basophils # (auto) 0.01 K/uL (0-0.2); Basophils % (auto) 0.3 %; Eosinophils # (auto) 0.02 K/uL (0-0.50); Eosinophils % (auto) 0.5 %; Hemoglobin 10.9 g/dl (12.0-16.0); Immature Granulocytes # (auto) 0.01 K/uL (0.01-0.20); Immature Granulocytes % (auto) 0.3 %; Lymphocytes # (auto) 0.74 K/uL (1.2-3.4); Lymphocytes % (auto) 18.8 %; Mean Corpuscular Hemoglobin 30.2 pg (25.0-34.0); Mean Corpuscular Volume 91.4 fL (80.0-100.0); Mean Platelet Volume 9.3 fL (9.4-12.4); Monocytes # (auto) 0.26 K/uL (0.11-0.59); Monocytes % (auto) 6.6 %; Neutrophils % (auto) 73.5 %; Platelet Count 163 K/uL (130-400); RDW Coefficient of Variation 15.2 % (11.5-14.5); RDW Standard Deviation 50.8 fL (36.4-46.3); Red Blood Count 3.61 M/uL (4.20-5.40); White Blood Count 3.94 K/ul (4.8-10.8)
[2022-09-26 05:43] LABS: Albumin Globulin Ratio 1.5 (0.9-2); Albumin Level 2.8 gm/dl (3.4-5.0); BUN Creatinine Ratio 25.3 (10-20); Bilirubin,Total 0.7 mg/dl (0.2-1.0); Calcium 7.6 mg/dl (8.6-10.3); Creatinine Clr Calc Pharmacy 32.3 ml/min; Est GFR (Non-African American) 56.9 ml/min; Globulin 1.9 gm/dl (2.5-4.0); Magnesium 2.1 mg/dl (1.7-2.4); Potassium 3.7 mmol/L (3.5-5.1); Total Protein 4.7 gm/dl (6.0-8.3)
[2022-09-26 06:00] LABS: Ferritin 132.2 ng/ml (8-388)
[2022-09-26] MEDS ORDERED: LEVOTHYROXINE SODIUM 88 MCG TABLET PO SCH (06:30)
--- NOTE | 2022-09-26 06:45 | Ultrasound Report ---
US carotid doppler BI CLINICAL HISTORY: 72 years-old Female with pre syncope. COMPARISON: Brain MRI and chest CT studies 09/25/2022 TECHNIQUE: Multiple real time sonographic images of the carotid bifurcations were obtained assessing obrien scale, color Doppler and spectral wave form appearance FINDINGS: RIGHT CAROTID: The peak systolic velocity measured within the right ICA is 46 cm/sec. The end diast olic velocity measured 18 cm/sec. The ICA to CCA ratio measured 1.0 which correlates with a stenosis of 0-50%. Mild to moderate atherosclerotic plaque of the carotid bulb. LEFT CAROTID: The peak systolic velocity measurements in the left ICA is 45 cm/sec. The end diastol ic velocity measured 18 cm/sec. The ICA to CCA ratio measured 1.0 which correlates with a stenosis of 0-50%. Mild to moderate atherosclerotic plaque of the carotid bulb. There is normal antegrade vertebral flow bilaterally. In this patient with history of reported prior thyroidectomy, there are multiple circumscribed solid appearing lesions noted within the neck measuring up to 4.3 x 1.6 x 2.7 cm on the right. On the nonco ntrast chest CT, nodules are seen within the tracheoesophageal recess and paratracheal distributions. IMPRESSION: 1. Atherosclerosis without hemodynamically significant stenosis. 2. In this patient with reported history of prior thyroidectomy, circumscribed lesions within the ne ck and mediastinum are suggestive of adenopathy. Correlation with ultrasound-guided FNA recommended. 3. Normal antegrade vertebral flow bilaterally. ACT 112: Negative or not required by law. The above report was generated using voice recognition software. It may contain grammatical, syntax o r spelling errors. Electronically signed by: Patrick Jacobsen M.D. 09/26/2022 6:42 AM
[2022-09-26 07:42] LABS: Estimated Average Glucose 114 mg/dl; Hemoglobin A1C 5.6 % (4.5-5.6)
--- NOTE | 2022-09-26 08:43 | Electrocardiogram Report ---
Test Reason : Blood Pressure : / mmHG Vent. Rate : 050 BPM Atrial Rate : 050 BPM P-R Int : 208 ms QRS Dur : 092 ms QT Int : 470 ms P-R-T Axes : 090 091 087 degrees QTc Int : 428 ms Suspect arm lead reversal, interpretation assumes no reversal Sinus bradycardia Rightward axis Pulmonary disease pattern Old Anteroseptal infarct (cited on or before 20-AUG-2022) Abnormal ECG When compared with ECG of 25-SEP-2022 13:17, Premature ventricular complexes are no longer Present Premature atrial complexes are no longer Present Confirmed by Rajeev Hoffmann ([id number]) on 09/26/2022 8:43:19 AM Referred By: Hayes Maurer Confirmed By:Rajeev Hoffmann
--- NOTE | 2022-09-26 08:43 | Electrocardiogram Report ---
Test Reason : Blood Pressure : / mmHG Vent. Rate : 056 BPM Atrial Rate : 056 BPM P-R Int : 188 ms QRS Dur : 094 ms QT Int : 438 ms P-R-T Axes : 089 092 080 degrees QTc Int : 422 ms Sinus bradycardia with occasional Premature ventricular complexes and Premature atrial complexes Rightward axis Old Anteroseptal infarct (cited on or before 20-AUG-2022) Abnormal ECG When compared with ECG of 20-AUG-2022 08:19, Premature ventricular complexes are now Present Premature atrial complexes are now Present Vent. rate has decreased BY 80 BPM Confirmed by Rajeev Hoffmann ([id number]) on 09/26/2022 8:43:01 AM Referred By: Hayes Maurer Confirmed By:Rajeev Hoffmann
[2022-09-26] MEDS: DOXYCYCLINE HYCLATE 100 MG CAP PO SCH (09:21)
[2022-09-26] MEDS: predniSONE 20 MG TAB PO SCH (09:22)
[2022-09-26] MEDS: HEPARIN SOD 5,000 UNIT/0.5 ML VIAL SQ SCH ×2 (09:22→22:11)
[2022-09-26] MEDS: OXYBUTYNIN CHLORIDE XL 5 MG TABCR PO SCH (09:22)
[2022-09-26] MEDS: LACTATED RINGER'S 1,000 ML IV SCH (09:44)
[2022-09-26] MEDS ORDERED: SODIUM CHLORIDE 0.9% 1000ML 1,000 ML IV SCH (09:45)
[2022-09-26] MEDS: cefTRIAXone SODIUM 1,000 MG in DEXTROSE 5% AD-VAN 50 ML IV SCH (10:06)
--- NOTE | 2022-09-26 12:20 | Gastrointestinal Consultation ---
Date of Consultation September 26, 2022 Assessment & Plan (1) Weight loss, abnormal: (2) Esophagitis: Plan 1. For treatment of esophagitis would add daily PPI and continue daily famotidine. 2. Repeat EGD as previously scheduled. 3. Ordered outpatient colonoscopy. Our schedulers will contact the patient to add colonoscopy date and time. 4. Has outpatient GI follow-up already arranged with Rufina Alvarez NP. Supervising Physician Co-Signing Physician Notes I saw and evaluted the patient, we were consulted to evaluate her for weight loss, + nausea, no emesis. Her GI hx is notable for a recent EGD with Grade 3 esophagitis, last colonsocopy in 2020 with a poor bowel preparation. PE: Thin Delay in expiratory phase consistent with COPD Impresson: patient with unexplained weight loss, egd in recent past with esophagitis. I would recomend use of protonix 40 mg per dya and f/u EGD in October. Given the weight loss and prior poor colonoscopy prep in 2020 a repeat colonoscopy wiht a 2 day bowel prep can be offered at the same time. Her recent CT did show right hydronephrosis, would consider a urology consult if not done in past. Recomendations Protonix 40 mg daily EGD in 4 to 6 week OP colonoscopy with a2 day bowel preparation please call with quesitons History of Present Illness Reason for Consultation: Weight Loss Requesting Physician: Dr. Dunham Attending Physician: Yvan Rodriguez MD History of Present Illness Ms. Kaci Funk is a 72 yr old female pt of Dr. Hayes Maurer w a hx of 72 year old female w a history of COPD, pulmonary HTN who presented to the ED on 09/25 for weakness and was admitted for hypoxia (COPD). GI is consulted for these issues. She was also seen by our GI group recently for similar issues and EGD in July w Grade 3 esophagitis but it does not appear that she has been taking a PPI at home. F/u EGD is arranged. Her most recent colonoscopy for positive Cologuard w findings of mild/mod sigmoid diverticulosis and int/ext hemorrhoids. Allergies Allergy/AdvReac Type Severity Reaction Status Date / Time morphine Allergy Unknown shock, Verified 09/25/22 15:37 dspnea Home Medications Medication Instructions Recorded Confirmed Type levothyroxine 75 mcg tablet 75 mcg PO QAM 07/24/22 09/25/22 History famotidine 40 mg tablet 40 mg PO HS 08/16/22 09/25/22 History metoprolol succinate 25 mg 12.5 mg PO DAILY #15 tabs 08/22/22 09/25/22 Rx tablet,extended release 24 hr oxybutynin chloride 5 mg 5 mg PO QAM 09/25/22 09/25/22 History tablet,extended release 24 hr Patient History Medical History COPD (chronic obstructive pulmonary disease) Hypothyroid Vitamin D deficiency Surgical History Hx of colonoscopy Hx of lumbosacral spine surgery x3 Hx of thyroidectomy Family History Other Breast cancer Social History Smoking Status: Former smoker Tobacco Type: Cigarettes Cigarettes Per Day: 1 pack a week; Second Hand Exposure: Yes; Do You Dip or Chew Tobacco: No; Hx Alcohol Use: No Hx Substance Use: No Preferred Language: Thai Communication Ability: Effective Field Operations Technician Required: No Beliefs That Will Affect Care: None Current Living Situation: Spouse Feels Safe at Home: Yes Assistive Devices: Cane Review of Systems Review of Systems: ROS: Gen:+ weakness; No fevers; + significant weight loss Eyes: No eye redness, or pain, no recent vision changes Resp: No SOB, no cough Cardio: No palpitations/irregular beats, no chest pain GI: Mild/diffuse abd pain at times - not recently. No nausea/vomiting : Denies pain on urination Skin: No jaundice, itching or new rashes Physical Exam Constitutional: + cachectic, cooperative and comfortable Eyes: PERRL, conjunctivae normal, anicteric sclerae ENMT: external ear and nose normal, oropharynx normal Neck: trachea midline, no thyromegaly Respiratory: normal respiratory effort, lungs clear to auscultation Cardiovascular: RRR, no murmur, no edema Gastrointestinal (Abdomen): normal bowel sounds, soft, nontender, no hepatosplenomegaly Musculoskeletal: no cyanosis or clubbing, extremities motor strength 5/5 Skin: no rashes, warm and dry Neurologic: PERRL, EOMI, accommodation nl, no face palsy, no dysarthria Psychiatric: A+Ox3, euthymic affect Lymphatic: no cervical or axillary lymphadenopathy Results & Data Vital Signs (Past 12 Hours) Vital Signs Temp Pulse Pulse Resp BP Pulse Ox O2 Del Method 09/26/22 11:15 36.2 C L 75 20 93/53 L 96 Room Air 09/26/22 11:10 36.2 C L 62 18 81/56 L 92 Room Air 09/26/22 09:25 36.2 C L 61 18 89/59 L 95 Room Air 09/26/22 07:32 Room Air 09/26/22 06:37 47 L 09/26/22 04:22 36.2 C L 50 L 20 109/64 97 Room Air Laboratory Results WBC 3.9, Hb 10.9, HCT 33, PLT S163, NA 138, K3.7, CL 108, CO2 27, BUN 25, CR 0.9 LFTs normal Diagnostic Findings CTAP with IV contrast in August 2022: 1. Mild periportal edema. Correlate for overhydration (the IVC is distended) versus hepatitis. 2. Severe right-sided hydronephrosis. No definite obstruction of the ureter. Consider CT urogram protocol for further evaluation, if clinically indicated. 3. Wall thickening of small bowel in the pelvis, correlate for enteritis. 4. Diverticulosis, without acute diverticulitis. No small bowel obstruction. No free air.
--- NOTE | 2022-09-26 17:02 | Hospitalist Progress Note ---
Date of Service September 26, 2022 Assessment & Plan (1) Generalized weakness: (2) Weight loss, abnormal: (3) Hypoxia: Plan This is a 72-year-old female who has a significant past medical history of COPD, history of thyroidectomy and now acquired hypothyroidism, pulmonary hypertension who presents to ED secondary to feeling lightheaded and dizzy. Pt with severe malnutrition, weight continues to decline as she states she is now down to 84lbs. She states she was 115lbs approx 1 month ago. ED weight reveals 50kg, but seems this might be a bit high as she is severely emaciated. Etiology of weightloss is still unclear. She has had CT chest to r/o lung ca, CT a/p does not reveal mass but has been seeing a R severe hydronephrosis for which she is following urology for. Her last colonoscopy was in 2018 and was recommended to follow-up in 5 years. She states that she has not been compliant with mammograms but has not felt any breast lumps. Generally she feels significantly weak, numbness and tingling to hands and feet despite vitamin B12 supplementation and difficulty ambulating due to lower extremity weakness. Generalized weakness Unintentional weight loss Severe protein calorie malnutrition Dizziness Secondary to severe malnutrition without any evidence of significant GI loss or any hypercatabolic state except has COPD and unknown status of any hidden cancer Consult dietitian-appreciate input and recommendation Mani last admission underwent C/T/Lspine MRI all were reviewed by Dr. Juarez and felt not etiology of weakness MRI of the brain with and without contrast is unremarkable We will get PT and OT evaluation UA was suggestive of infection and she has been started with intravenous antibiotic Urine is growing gram-negative bacilli and sensitivities pending Stool culture is positive for norovirus Appreciate GI input and recommendation for EGD and colonoscopy as an outpatient Bradycardia on presentation Hold current metoprolol as patient was sinus bradycardia in ED in high 40s and 50s, will continue to monitor on telemetry -metoprolol was initiated last admission due to PAT Echocardiogram showed-normal LV wall thickness, LV systolic function and normal, EF of 55 to 60%, LV wall motion is normal, right ventricle is normal in size and function, right atrium is moderately dilated, there is moderate tricuspid regurgitation, dilated inferior vena cava with reduced collapsibility with sniff indicates an elevated right atrial pressure of 15 mmHg and pulmonary hypertension Orthostasis will be recalled Patient denies any cardiac and no neurological symptoms at present COPD with mild exacerbation Tobacco abuse Hypoxia pt with mild hypoxia, wheezing give neb tx x 1 now and QID prn incentive spirometer Prednisone oral 40mg daily x 5 days; Doxycycline 100 mg bid x 7 days. encourage cessation, pt in process of quiting Hypothyroidism 2/2 removal of thyroid TSH 28, low normal free t4 will increase levothyroxine to 88mcg daily, will need repeat at OP THAs recently increased from 78 to 88 mcg We will continue with that dose while she is in the hospital Anemia hgb decreased 11.6/34.4 this admission pt denies dark stool obtain iron panel in am. folate/b12 normal last hospital stay Dehydration 2/2 poor intake continue IVF DVT ppx: Sq Heparin BID FULL CODE PCP: Erasto Admission and Anticipated Discharge Date Admission Date: September 25, 2022 Subjective 09/26/2022 The patient was seen and examined in medical telemetry unit She has been complaining of weakness and tiredness and weight loss She also has bilateral ankle swelling without any shortness of breath Has been tolerating regular diet Review of Systems Review of Systems: All systems reviewed and are unremarkable except as noted below Physical Exam Physical Exam: Sitting on a chair without any acute distress Constitutional: + ill appearing and + thin Eyes: PERRL, conjunctivae normal, anicteric sclerae ENMT: external ear and nose normal, oropharynx normal Neck: trachea midline, no thyromegaly Respiratory: no respiratory distress Auscultation: + diminished lung sounds; no crackles Cardiovascular: Rate/Rhythm: regular rate and regular rhythm Heart Sounds: normal S1 and normal S2; no murmur Extremities: + edema (1+ edema bilaterally confined to the ankles) Gastrointestinal (Abdomen): Inspection/Auscultation: normal bowel sounds; abdomen not distended Percussion/Palpation: abdomen soft; abdomen nontender Musculoskeletal: No acute arthritis involving any joint Neurologic: Alert, awake and oriented x3. Generally weak but no focal sensory or no motor deficit appreciated Lymphatic: no cervical or axillary lymphadenopathy Results & Data Results & Data Vital Signs (Past 12 Hours) Vital Signs Temp Pulse Pulse Resp BP Pulse Ox O2 Del Method 09/26/22 16:01 36.3 C L 63 18 106/63 95 Room Air 09/26/22 14:08 60 09/26/22 11:15 36.2 C L 75 20 93/53 L 96 Room Air 09/26/22 11:10 36.2 C L 62 18 81/56 L 92 Room Air 09/26/22 09:25 36.2 C L 61 18 89/59 L 95 Room Air 09/26/22 07:32 Room Air 09/26/22 06:37 47 L Laboratory Results Short CBC 09/26/22 Range/Units 04:50 WBC 3.94 L (4.8-10.8) K/ul Hgb 10.9 L (12.0-16.0) g/dl Hct 33.0 L (37.0-47.0) % Plt Count 163 (130-400) K/uL BMP 09/26/22 04:50 Sodium 138 Potassium 3.7 Chloride 108 H Carbon Dioxide 27 BUN 25 H Creatinine 0.99 Glucose 83 Calcium 7.6 L Liver Function 09/26/22 Range/Units 04:50 Total Bilirubin 0.7 (0.2-1.0) mg/dl AST 26 (13-39) U/L ALT 26 (7-52) U/L Alkaline Phosphatase 68 (34-104) U/L Albumin 2.8 L (3.4-5.0) gm/dl Urine 09/25/22 Range/Units 21:10 Urine Color Dark Yellow Urine Appearance Turbid A (Clear) Urine pH 5.5 (4.5-7.5) Ur Specific [place] 1.018 (1.000-1.030) Urine Protein 2+ H (Negative) Urine Glucose (UA) Negative (Negative) Medications Administered Current Inpatient Medications Acetaminophen (Acetaminophen 325 Mg Tab) 650 mg PO Q4H PRN PRN Reason: Pain or Fever Stop: 10/25/22 17:55 Al Hydrox/Mg Hydrox/Simethicone (Aluminum/Magnesium Susp 30 Ml Udc) 15 ml PO Q4H PRN PRN Reason: Dyspepsia Stop: 10/25/22 17:55 Albuterol (Albut/Ipratrop 3mg/0.5mg Neb 3 Ml Vial) 3 ml NEB QIDR PRN; Protocol PRN Reason: sob/wheezing Stop: 10/25/22 17:55 Famotidine (Famotidine 40 Mg Tablet) 40 mg PO HS [facility] Stop: 10/25/22 20:59 Last Admin: 09/25/22 20:07 Dose: 40 mg Heparin Sodium (Porcine) (Heparin Sod 5,000 Unit/0.5 Ml Vial) 5,000 units SQ Q12 [facility] Stop: 10/25/22 20:59 Last Admin: 09/26/22 09:22 Dose: 5,000 units Ceftriaxone Sodium 1,000 mg/ (Dextrose) 50 mls @ 100 mls/hr IV Q24H [facility]; Protocol Stop: 10/01/22 09:44 Last Infusion: 09/26/22 10:36 Dose: Infused Sodium Chloride (Nss 1000ml) 1,000 mls @ 80 mls/hr IV .[id number] [facility] Stop: 09/26/22 18:44 Last Admin: 09/26/22 10:06 Dose: 80 mls/hr Levothyroxine Sodium (Levothyroxine Sodium 112 Mcg Tablet) 112 mcg PO DAILYBB [facility] Stop: 10/27/22 06:29 Magnesium Hydroxide (Magnesium Hydroxide Susp 30 Ml Udc) 30 ml PO Q12H PRN PRN Reason: Constipation Stop: 10/25/22 17:55 Ondansetron HCl (Ondansetron Inj 2 Mg/Ml 2 Ml Vial) 4 mg IV Q6H PRN PRN Reason: Nausea Stop: 10/25/22 17:55 Oxybutynin Chloride (Oxybutynin Chloride Xl 5 Mg Tabcr) 5 mg PO QAM [facility] Stop: 10/26/22 08:59 Last Admin: 09/26/22 09:22 Dose: 5 mg Pantoprazole Sodium (Pantoprazole 40 Mg Tab) 40 mg PO QAM [facility] Stop: 10/27/22 08:59 Polyethylene Glycol (Polyethylene (Miralax) 17 Gm Pack) 17 gm PO DAILY PRN PRN Reason: Constipation Stop: 10/25/22 17:55 Prednisone (Prednisone 20 Mg Tab) 40 mg PO DAILY [facility] Stop: 09/29/22 09:01 Last Admin: 09/26/22 09:22 Dose: Not Given
[2022-09-26] MEDS: FAMOTIDINE 40 MG TABLET PO SCH (22:11)
[2022-09-27] MEDS: ALBUT/IPRATROP 3MG/0.5MG NEB 3 ML VIAL NEB PRN ×2 (04:07→23:14)
[2022-09-27] MEDS: LEVOTHYROXINE SODIUM 88 MCG TABLET PO SCH (05:34)
[2022-09-27] MEDS ORDERED: LEVOTHYROXINE SODIUM 112 MCG TABLET PO SCH (06:30)
[2022-09-27 07:52] LABS: Basophils # (auto) 0.04 K/uL (0-0.2); Basophils % (auto) 0.8 %; Eosinophils # (auto) 0.01 K/uL (0-0.50); Eosinophils % (auto) 0.2 %; Hemoglobin 11.2 g/dl (12.0-16.0); Immature Granulocytes # (auto) 0.02 K/uL (0.01-0.20); Immature Granulocytes % (auto) 0.4 %; Lymphocytes # (auto) 0.53 K/uL (1.2-3.4); Lymphocytes % (auto) 10.1 %; Mean Corpuscular Hemoglobin 30.7 pg (25.0-34.0); Mean Corpuscular Hgb Conc 32.9 g/dL (32.0-36.0); Mean Corpuscular Volume 93.2 fL (80.0-100.0); Mean Platelet Volume 9.7 fL (9.4-12.4); Monocytes # (auto) 0.32 K/uL (0.11-0.59); Monocytes % (auto) 6.1 %; Neutrophils # (auto) 4.34 K/uL (1.40-6.50); Neutrophils % (auto) 82.4 %; Platelet Count 161 K/uL (130-400); RDW Coefficient of Variation 15.4 % (11.5-14.5); RDW Standard Deviation 52.7 fL (36.4-46.3); Red Blood Count 3.65 M/uL (4.20-5.40); White Blood Count 5.26 K/ul (4.8-10.8)
[2022-09-27] MEDS: OXYBUTYNIN CHLORIDE XL 5 MG TABCR PO SCH (08:22)
[2022-09-27] MEDS: predniSONE 20 MG TAB PO SCH (08:22)
[2022-09-27] MEDS: PANTOprazole 40 MG TAB PO SCH (08:22)
[2022-09-27] MEDS: HEPARIN SOD 5,000 UNIT/0.5 ML VIAL SQ SCH ×2 (08:22→21:03)
[2022-09-27 08:23] LABS: BUN Creatinine Ratio 27.1 (10-20); Calcium 7.7 mg/dl (8.6-10.3); Creatinine Clr Calc Pharmacy 37.7 ml/min; Est GFR (African American) 79.3 ml/min; Est GFR (Non-African American) 68.5 ml/min; Phosphorus 2.4 mg/dl (2.5-4.9); Potassium 3.5 mmol/L (3.5-5.1)
[2022-09-27] MEDS: cefTRIAXone SODIUM 1,000 MG in DEXTROSE 5% AD-VAN 50 ML IV SCH (08:23)
[2022-09-27] MEDS ORDERED: POTASSIUM PHOS 3 MMOL/1 ML INFUSION IV STA (09:27)
[2022-09-27] MEDS ORDERED: POTASSIUM PHOSPHATE 21 MMOL in SODIUM CHLORIDE 0.9% 500 ML IV ONE (10:00)
[2022-09-27 12:52] LABS: IgA Serum 190 mg/dL (70-320); Tis Trans IgA <1.0 U/mL
--- NOTE | 2022-09-27 14:35 | Hospitalist Progress Note ---
Date of Service September 27, 2022 Assessment & Plan (1) Generalized weakness: (2) Weight loss, abnormal: (3) Hypoxia: Plan This is a 72-year-old female who has a significant past medical history of COPD, history of thyroidectomy and now acquired hypothyroidism, pulmonary hypertension who presents to ED secondary to feeling lightheaded and dizzy. Pt with severe malnutrition, weight continues to decline as she states she is now down to 84lbs. She states she was 115lbs approx 1 month ago. ED weight reveals 50kg, but seems this might be a bit high as she is severely emaciated. Etiology of weightloss is still unclear. She has had CT chest to r/o lung ca, CT a/p does not reveal mass but has been seeing a R severe hydronephrosis for which she is following urology for. Her last colonoscopy was in 2018 and was recommended to follow-up in 5 years. She states that she has not been compliant with mammograms but has not felt any breast lumps. Generally she feels significantly weak, numbness and tingling to hands and feet despite vitamin B12 supplementation and difficulty ambulating due to lower extremity weakness. Generalized weakness Unintentional weight loss Severe protein calorie malnutrition Dizziness Secondary to severe malnutrition without any evidence of significant GI loss or any hypercatabolic state except has COPD and unknown status of any hidden cancer Consult dietitian-appreciate input and recommendation Mani last admission underwent C/T/Lspine MRI all were reviewed by Dr. Juarez and felt not etiology of weakness MRI of the brain with and without contrast is unremarkable We will get PT and OT evaluation Appreciate GI input and recommendation for EGD and colonoscopy as an outpatient Clinically much better today-has been tolerating diet We will get PT and OT evaluation prior to discharge E. coli UTI-pansensitive UA was suggestive of infection and she has been started with intravenous antibiotic Urine is growing gram-E. coli which is pansensitive Stool culture is positive for norovirus Will oral antibiotic to finish the course for 7-10 days Bradycardia on presentation Hold current metoprolol as patient was sinus bradycardia in ED in high 40s and 50s, will continue to monitor on telemetry -metoprolol was initiated last admission due to PAT Echocardiogram showed-normal LV wall thickness, LV systolic function and normal, EF of 55 to 60%, LV wall motion is normal, right ventricle is normal in size and function, right atrium is moderately dilated, there is moderate tricuspid regurgitation, dilated inferior vena cava with reduced collapsibility with sniff indicates an elevated right atrial pressure of 15 mmHg and pulmonary hypertension Orthostasis will be recalled Patient denies any cardiac and no neurological symptoms at present Bradycardia is resolved COPD with mild exacerbation Tobacco abuse Hypoxia pt with mild hypoxia, wheezing give neb tx x 1 now and QID prn incentive spirometer Prednisone oral 40mg daily x 5 days; Doxycycline 100 mg bid x 7 days. encourage cessation, pt in process of quiting No acute distress and or wheezing Hypothyroidism 2/2 removal of thyroid TSH 28, low normal free t4 will increase levothyroxine to 88mcg daily, will need repeat at OP THAs recently increased from 78 to 88 mcg We will continue with that dose while she is in the hospital Continue increasing dose of thyroxine for about 6 weeks before repeat TSH should be done as an outpatient Anemia hgb decreased 11.6/34.4 this admission pt denies dark stool obtain iron panel in am. folate/b12 normal last hospital stay Dehydration 2/2 poor intake continue IVF DVT ppx: Sq Heparin BID FULL CODE PCP: Erasto Likely discharge tomorrow Admission and Anticipated Discharge Date Admission Date: September 25, 2022 Subjective 09/26/2022 The patient was seen and examined in medical telemetry unit She has been complaining of weakness and tiredness and weight loss She also has bilateral ankle swelling without any shortness of breath Has been tolerating regular diet 09/27/2022 The patient was seen and examined in medical telemetry unit She has been out of bed on a chair and has been feeling much better Complains to have lump in the throat likely secondary to globus hystericus Reassured and she will have outpatient EGD Denies any chest pain, palpitation or shortness of breath and no fever and no chills Review of Systems Review of Systems: All systems reviewed and are unremarkable except as noted below Physical Exam Physical Exam: Sitting on a chair without any acute distress Constitutional: + ill appearing and + thin Eyes: PERRL, conjunctivae normal, anicteric sclerae ENMT: external ear and nose normal, oropharynx normal Neck: trachea midline, no thyromegaly Respiratory: no respiratory distress Auscultation: + diminished lung sounds; no crackles Cardiovascular: Rate/Rhythm: regular rate and regular rhythm Heart Sounds: normal S1 and normal S2; no murmur Extremities: + edema (1+ edema bilaterally confined to the ankles) Gastrointestinal (Abdomen): Inspection/Auscultation: normal bowel sounds; abdomen not distended Percussion/Palpation: abdomen soft; abdomen nontender Musculoskeletal: No acute arthritis involving any of the joint Neurologic: Alert, awake and oriented x3. Generally weak but no focal neurodeficit Lymphatic: no cervical or axillary lymphadenopathy Results & Data Results & Data Vital Signs (Past 12 Hours) Vital Signs Temp Pulse Pulse Resp BP BP Pulse Ox 09/27/22 10:38 36.4 C 84 18 98/64 L 96 09/27/22 08:49 93 09/27/22 08:00 63 09/27/22 08:07 36.6 C 79 18 100/62 90 09/27/22 04:16 36.7 C 76 18 94/53 L 91 09/27/22 04:08 68 22 94 O2 Del Method 09/27/22 10:38 Room Air 09/27/22 08:49 Room Air 09/27/22 08:00 09/27/22 08:07 Room Air 09/27/22 04:16 Room Air 09/27/22 04:08 Room Air Laboratory Results Short CBC 09/27/22 Range/Units 07:19 WBC 5.26 (4.8-10.8) K/ul Hgb 11.2 L (12.0-16.0) g/dl Hct 34.0 L (37.0-47.0) % Plt Count 161 (130-400) K/uL BMP 09/27/22 07:19 Sodium 137 Potassium 3.5 Chloride 108 H Carbon Dioxide 24 BUN 23 Creatinine 0.85 Glucose 125 H Calcium 7.7 L Medications Administered Current Inpatient Medications Acetaminophen (Acetaminophen 325 Mg Tab) 650 mg PO Q4H PRN PRN Reason: Pain or Fever Stop: 10/25/22 17:55 Al Hydrox/Mg Hydrox/Simethicone (Aluminum/Magnesium Susp 30 Ml Udc) 15 ml PO Q4H PRN PRN Reason: Dyspepsia Stop: 10/25/22 17:55 Albuterol (Albut/Ipratrop 3mg/0.5mg Neb 3 Ml Vial) 3 ml NEB QIDR PRN; Protocol PRN Reason: sob/wheezing Stop: 10/25/22 17:55 Last Admin: 09/27/22 04:07 Dose: 3 ml Famotidine (Famotidine 40 Mg Tablet) 40 mg PO HS [facility] Stop: 10/25/22 20:59 Last Admin: 09/26/22 22:11 Dose: 40 mg Heparin Sodium (Porcine) (Heparin Sod 5,000 Unit/0.5 Ml Vial) 5,000 units SQ Q12 [facility] Stop: 10/25/22 20:59 Last Admin: 09/27/22 08:22 Dose: Not Given Ceftriaxone Sodium 1,000 mg/ (Dextrose) 50 mls @ 100 mls/hr IV Q24H [facility]; Protocol Stop: 10/01/22 09:44 Last Infusion: 09/27/22 08:55 Dose: Infused Levothyroxine Sodium (Levothyroxine Sodium 88 Mcg Tablet) 88 mcg PO DAILYBB [facility] Stop: 10/27/22 06:29 Last Admin: 09/27/22 05:34 Dose: 88 mcg Magnesium Hydroxide (Magnesium Hydroxide Susp 30 Ml Udc) 30 ml PO Q12H PRN PRN Reason: Constipation Stop: 10/25/22 17:55 Ondansetron HCl (Ondansetron Inj 2 Mg/Ml 2 Ml Vial) 4 mg IV Q6H PRN PRN Reason: Nausea Stop: 10/25/22 17:55 Oxybutynin Chloride (Oxybutynin Chloride Xl 5 Mg Tabcr) 5 mg PO QAM [facility] Stop: 10/26/22 08:59 Last Admin: 09/27/22 08:22 Dose: 5 mg Pantoprazole Sodium (Pantoprazole 40 Mg Tab) 40 mg PO QAM [facility] Stop: 10/27/22 08:59 Last Admin: 09/27/22 08:22 Dose: 40 mg Polyethylene Glycol (Polyethylene (Miralax) 17 Gm Pack) 17 gm PO DAILY PRN PRN Reason: Constipation Stop: 10/25/22 17:55 Prednisone (Prednisone 20 Mg Tab) 40 mg PO DAILY [facility] Stop: 09/29/22 09:01 Last Admin: 09/27/22 08:22 Dose: 40 mg
[2022-09-27] MEDS: FAMOTIDINE 40 MG TABLET PO SCH (21:03)
[2022-09-28] MEDS: LEVOTHYROXINE SODIUM 88 MCG TABLET PO SCH (05:38)
[2022-09-28 06:46] LABS: BUN Creatinine Ratio 27.8 (10-20); Creatinine Clr Calc Pharmacy 49.1 ml/min; Est GFR (Non-African American) 83.7 ml/min; Phosphorus 2.6 mg/dl (2.5-4.9); Potassium 3.7 mmol/L (3.5-5.1)
[2022-09-28] MEDS: predniSONE 20 MG TAB PO SCH (09:00)
[2022-09-28] MEDS: cefTRIAXone SODIUM 1,000 MG in DEXTROSE 5% AD-VAN 50 ML IV SCH (09:16)
[2022-09-28] MEDS: PANTOprazole 40 MG TAB PO SCH (09:19)
[2022-09-28] MEDS: OXYBUTYNIN CHLORIDE XL 5 MG TABCR PO SCH (09:19)
[2022-09-28] MEDS: HEPARIN SOD 5,000 UNIT/0.5 ML VIAL SQ SCH ×2 (09:19→21:50)
--- NOTE | 2022-09-28 16:57 | Hospitalist Progress Note ---
Date of Service September 28, 2022 Assessment & Plan (1) Generalized weakness: (2) Weight loss, abnormal: (3) Hypoxia: Plan This is a 72-year-old female who has a significant past medical history of COPD, history of thyroidectomy and now acquired hypothyroidism, pulmonary hypertension who presents to ED secondary to feeling lightheaded and dizzy. Generalized weakness Unintentional weight loss Severe protein calorie malnutrition Dizziness Secondary to severe malnutrition without any evidence of significant GI loss or any hypercatabolic state except has COPD and unknown status of any hidden cancer Consult dietitian-appreciate input and recommendation Mani last admission underwent C/T/Lspine MRI all were reviewed by Dr. Juarez and felt not etiology of weakness MRI of the brain with and without contrast is unremarkable Appreciate GI input and recommendation for EGD and colonoscopy as an outpatient Clinically much better today-has been tolerating diet E. coli UTI-pansensitive d/c ceftriaxone, switch to keflex. Plan for 7 day course Bradycardia on presentation Hold current metoprolol as patient was sinus bradycardia in ED in high 40s and 50s, will continue to monitor on telemetry -metoprolol was initiated last admission due to PAT Echocardiogram showed-normal LV wall thickness, LV systolic function and normal, EF of 55 to 60%, LV wall motion is normal, right ventricle is normal in size and function, right atrium is moderately dilated, there is moderate tricuspid regurgitation, dilated inferior vena cava with reduced collapsibility with sniff indicates an elevated right atrial pressure of 15 mmHg and pulmonary hypertension Orthostasis will be recalled Patient denies any cardiac and no neurological symptoms at present Bradycardia is resolved Norovirus Diarrhea -stool PCR + norovirus -patient still with diarrhea -supportive care COPD with mild exacerbation Tobacco abuse Hypoxia pt with mild hypoxia, wheezing give neb tx x 1 now and QID prn incentive spirometer Prednisone oral 40mg daily x 5 days; Doxycycline 100 mg bid x 7 days. encourage cessation, pt in process of quiting No acute distress and or wheezing Hypothyroidism 2/2 removal of thyroid TSH 28, low normal free t4 levothyroxine increased to 88mcg daily, will need repeat TSH in 4-6 weeks carotid u/s shows thyroid adenopathy, needs u/s guided FNA--> can be done as outpatient Anemia hgb decreased 11.6/34.4 this admission pt denies dark stool obtain iron panel in am. folate/b12 normal last hospital stay Dehydration 2/2 poor intake continue IVF DVT ppx: Sq Heparin BID FULL CODE PCP: Erasto Admission and Anticipated Discharge Date Admission Date: September 25, 2022 Subjective Still with watery diarrhea Tolerating diet, denies poor oral intake at home and despite normal intake has lost significant weight Review of Systems Review of Systems: as above Physical Exam Physical Exam: thin, cachetic, frail Respiratory: breathing comfortably on room air, no wheezing/rhonchi Cardiovascular: regular rate and rhythm, no murmurs/rubs Gastrointestinal (Abdomen): soft, non tender Musculoskeletal: peripheral muscle wasting, thin, no edema Neurologic: awake, alert, spontaneously moving extremities Results & Data Results & Data Vital Signs (Past 12 Hours) Vital Signs Temp Pulse Pulse Resp BP Pulse Ox O2 Del Method 09/28/22 15:50 87 09/28/22 15:29 36.7 C 80 20 101/67 96 Room Air 09/28/22 10:41 36.3 C L 89 18 107/67 96 Room Air 09/28/22 08:22 36.5 C 66 16 106/70 95 Room Air 09/28/22 07:27 77
[2022-09-28] MEDS: FAMOTIDINE 40 MG TABLET PO SCH (21:50)
[2022-09-29] MEDS: LEVOTHYROXINE SODIUM 88 MCG TABLET PO SCH (05:40)
[2022-09-29] MEDS: OXYBUTYNIN CHLORIDE XL 5 MG TABCR PO SCH (08:07)
[2022-09-29] MEDS: predniSONE 20 MG TAB PO SCH (08:07)
[2022-09-29] MEDS: cephALEXin 500 MG CAP PO SCH ×5 (08:08→21:35)
[2022-09-29] MEDS: PANTOprazole 40 MG TAB PO SCH (08:08)
[2022-09-29] MEDS: HEPARIN SOD 5,000 UNIT/0.5 ML VIAL SQ SCH ×2 (08:09→21:35)
[2022-09-29 10:10] LABS: Hematocrit (blood only) 33.9 % (37.0-47.0); Hemoglobin 11.4 g/dl (12.0-16.0); Mean Corpuscular Hemoglobin 30.6 pg (25.0-34.0); Mean Corpuscular Hgb Conc 33.6 g/dL (32.0-36.0); Mean Corpuscular Volume 91.1 fL (80.0-100.0); Mean Platelet Volume 10.1 fL (9.4-12.4); Platelet Count 166 K/uL (130-400); RDW Coefficient of Variation 15.3 % (11.5-14.5); RDW Standard Deviation 50.6 fL (36.4-46.3); Red Blood Count 3.72 M/uL (4.20-5.40)
[2022-09-29 10:24] LABS: BUN Creatinine Ratio 29.3 (10-20); Creatinine Clr Calc Pharmacy 47.1 ml/min; Est GFR (African American) 92.3 ml/min; Est GFR (Non-African American) 79.6 ml/min; Magnesium 1.9 mg/dl (1.7-2.4); Potassium 3.7 mmol/L (3.5-5.1)
[2022-09-29] MEDS ORDERED: POTASSIUM CHLORIDE CRTAB 20 MEQ TABCR PO STA (12:09)
[2022-09-29] MEDS ORDERED: MAGNESIUM SULFATE / D5W 1 GM/100 ML BAG IV ONE (12:09)
[2022-09-29] MEDS ORDERED: LOPERAMIDE HCL 2 MG CAP PO ONE (12:30)
--- NOTE | 2022-09-29 12:37 | Hospitalist Progress Note ---
Date of Service September 29, 2022 Assessment & Plan (1) Generalized weakness: (2) Weight loss, abnormal: (3) Hypoxia: Plan This is a 72-year-old female who has a significant past medical history of COPD, history of thyroidectomy and now acquired hypothyroidism, pulmonary hypertension who presents to ED secondary to feeling lightheaded and dizzy. Generalized weakness Unintentional weight loss Severe protein calorie malnutrition Dizziness Secondary to severe malnutrition without any evidence of significant GI loss or any hypercatabolic state except has COPD and unknown status of any hidden cancer Consult dietitian-appreciate input and recommendation During last admission underwent C/T/Lspine MRI all were reviewed by Dr. Juarez and felt not etiology of weakness MRI of the brain with and without contrast is unremarkable Appreciate GI input and recommendation for EGD and colonoscopy as an outpatient Clinically much better today-has been tolerating diet E. coli UTI-pansensitive d/c ceftriaxone, switch to keflex. Plan for 7 day course Bradycardia on presentation Hold current metoprolol as patient was sinus bradycardia in ED in high 40s and 50s, will continue to monitor on telemetry -metoprolol was initiated last admission due to PAT Echocardiogram showed-normal LV wall thickness, LV systolic function and normal, EF of 55 to 60%, LV wall motion is normal, right ventricle is normal in size and function, right atrium is moderately dilated, there is moderate tricuspid regurgitation Now patient with what appears to be A fib on telemetry. Will ask for Cardiology consultation Continue to monitor on telemetry Norovirus Diarrhea -stool PCR + norovirus -patient still with diarrhea x 1 week. Will give 1 dose imodium and monitor response -supportive care COPD with mild exacerbation Tobacco abuse Hypoxia pt with mild hypoxia, wheezing. Received nebulizer then QID prn incentive spirometer Prednisone oral 40mg daily x 5 days; Doxycycline 100 mg bid x 7 days. encourage cessation, pt in process of quiting No acute distress and or wheezing currently Hypothyroidism 2/2 removal of thyroid TSH 28, low normal free t4 levothyroxine increased to 88mcg daily, will need repeat TSH in 4-6 weeks carotid u/s shows thyroid adenopathy, needs u/s guided FNA--> can be done as outpatient Anemia hgb decreased 11.6/34.4 this admission pt denies dark stool obtain iron panel in am. folate/b12 normal last hospital stay Dehydration 2/2 poor intake continue IVF DVT ppx: Sq Heparin BID FULL CODE PCP: Erasto Admission and Anticipated Discharge Date Admission Date: September 25, 2022 Subjective Still having diarrhea. About 3 loose watery episodes since last night. This has been going on for at least 1 week Patient is eating, appetite is good On telemetry noted to be going into/out of A fib with HR up to 130s. Noted that her Toprol was held on previously due to bradycardia Review of Systems Review of Systems: as above Physical Exam Physical Exam: Thin, cachetic, no acute distress, seems forgetful Respiratory: breathing comfortably, no wheezing/rhonchi Cardiovascular: Irregular, no murmurs/rubs Gastrointestinal (Abdomen): soft, non tender Musculoskeletal: bilateral feet swelling Neurologic: awake, alert, seems forgetful, spontaneously moving extremities Results & Data Results & Data Vital Signs (Past 12 Hours) Vital Signs Temp Pulse Pulse Resp BP Pulse Ox O2 Del Method 09/29/22 09:50 Room Air 09/29/22 08:00 74 09/29/22 08:30 36.3 C L 76 18 125/71 96 Room Air 09/29/22 03:00 36.8 C 78 18 121/61 97 Room Air
[2022-09-29] MEDS ORDERED: METOPROLOL TARTRATE 25 MG TAB PO ONE (13:30)
--- NOTE | 2022-09-29 15:32 | Cardiology Consultation ---
Date of Consultation September 29, 2022 Assessment & Plan (1) PSVT (paroxysmal supraventricular tachycardia): -EKG dated 08/20/2022, 8:19 AM consistent with supraventricular tachycardia as are the recent brief episodes of tachycardia noted on telemetry. Patient relatively asymptomatic. Although she had been noted to have bradycardia earlier this hospital stay, this has resolved. An echocardiogram performed 09/26/2022 revealed normal LV wall motion and ejection fraction in the range of 55-60% with no echocardiographic evidence of infarct. Moderate tricuspid regurgitation present with pulmonary artery systolic pressure estimated to be 47 mmHg (mildly elevated). Her pulmonary hypertension is likely consistent with her underlying history of lung disease. Recommend cautiously reintroducing beta-jenn with metoprolol tartrate 12.5 mg twice daily. Patient asked about if she needed a "stent "in her neck. Carotid duplex performed this hospital stay revealed atherosclerosis without obstruction. Given multiple complaints, I do not think it is a good time to add statin therapy with regards to risks of the side effects. History of Present Illness Attending Physician: Juan Diego Courtney MD History of Present Illness Kaci Funk is a 72-year-old female seen in cardiology consultation per the request of Dr. Courtney for the evaluation of episodes of narrow complex tachycardia. Patient with several recent hospital evaluations, readmitted on 09/25/2022 with complaints of generalized dizziness and before that had been evaluated for complaints of falls, dizziness, numbness in her hands. During her previous admission. Main concern of occasional episodes of tachycardia and therefore metoprolol succinate 2.5 mg daily was added to her medication regimen. EKG performed 09/25/2022 revealed sinus bradycardia 56 bpm with occasional PVCs and poor R wave progression noted suggestive of an age-indeterminate anteroseptal infarct. Bradycardia persisted at the time repeat EKG on 09/25/2022 at 1842. Her metoprolol was subsequently discontinued. At the time my assessment the patient was restless pacing in her room. Her baseline heart rate was sinus rhythm in the range of 90 to 100 bpm. Possible episodes of narrow complex tachycardia with rates into the 130s to 140s noted on telemetry. Patient with no associated subjective symptoms. Denies recent lightheadedness or dizziness. Allergies Allergy/AdvReac Type Severity Reaction Status Date / Time morphine Allergy Unknown shock, Verified 09/25/22 15:37 dspnea Home Medications Medication Instructions Recorded Confirmed Type levothyroxine 75 mcg tablet 75 mcg PO QAM 07/24/22 09/25/22 History famotidine 40 mg tablet 40 mg PO HS 08/16/22 09/25/22 History metoprolol succinate 25 mg 12.5 mg PO DAILY #15 tabs 08/22/22 09/25/22 Rx tablet,extended release 24 hr oxybutynin chloride 5 mg 5 mg PO QAM 09/25/22 09/25/22 History tablet,extended release 24 hr Patient History Medical History COPD (chronic obstructive pulmonary disease) Hypothyroid Vitamin D deficiency Surgical History Hx of colonoscopy Hx of lumbosacral spine surgery x3 Hx of thyroidectomy Family History Other Breast cancer Social History Smoking Status: Former smoker Tobacco Type: Cigarettes Cigarettes Per Day: 1 pack a week; Second Hand Exposure: Yes; Do You Dip or Chew Tobacco: No; Hx Alcohol Use: No Hx Substance Use: No Preferred Language: Arabic Communication Ability: Effective Catering Staff Member Required: No Beliefs That Will Affect Care: None Current Living Situation: Spouse Feels Safe at Home: Yes Assistive Devices: Cane Physical Exam Constitutional: + cachectic Respiratory: normal respiratory effort, lungs clear to auscultation Cardiovascular: RRR, no murmur, no edema Gastrointestinal (Abdomen): normal bowel sounds, soft, nontender, no hepatosplenomegaly Neurologic: PERRL, EOMI, accommodation nl, no face palsy, no dysarthria Results & Data Vital Signs (Past 12 Hours) Vital Signs Temp Pulse Pulse Resp BP Pulse Ox O2 Del Method 09/29/22 09:50 Room Air 09/29/22 08:00 74 09/29/22 08:30 36.3 C L 76 18 125/71 96 Room Air Laboratory Results EKG 09/19/2022: Supraventricular tachycardia 136 bpm with mild repolarization ch anges
[2022-09-29] MEDS: FAMOTIDINE 40 MG TABLET PO SCH (21:35)
[2022-09-30] MEDS: LOPERAMIDE HCL 2 MG CAP PO PRN ×3 (05:21→12:43)
[2022-09-30] MEDS: LEVOTHYROXINE SODIUM 88 MCG TABLET PO SCH (05:21)
[2022-09-30] MEDS: OXYBUTYNIN CHLORIDE XL 5 MG TABCR PO SCH (08:53)
[2022-09-30] MEDS: cephALEXin 500 MG CAP PO SCH ×4 (08:54→20:27)
[2022-09-30] MEDS: METOPROLOL TARTRATE 25 MG TAB PO SCH ×2 (08:54→20:28)
[2022-09-30] MEDS: PANTOprazole 40 MG TAB PO SCH (08:55)
[2022-09-30] MEDS: HEPARIN SOD 5,000 UNIT/0.5 ML VIAL SQ SCH ×2 (08:55→20:27)
[2022-09-30 09:36] LABS: BUN Creatinine Ratio 33.8 (10-20); Calcium 8.4 mg/dl (8.6-10.3); Creatinine Clr Calc Pharmacy 43.6 ml/min; Est GFR (African American) 85.4 ml/min; Est GFR (Non-African American) 73.7 ml/min; Phosphorus 2.7 mg/dl (2.5-4.9); Potassium 4.2 mmol/L (3.5-5.1)
--- NOTE | 2022-09-30 11:55 | Communication Note ---
Date of Service: September 30, 2022 Telemetry reviewed. For the most part sinus rhythm the 70s noted, occasional episodes of heart rate up into the 140s noted difficult to determine if these are SVT or sinus tachycardia. Although there are some slow heart rates recorded in her vital signs, no significant bradycardia noted. Recommend continued metoprolol tartrate 12.5 mg twice daily.
--- NOTE | 2022-09-30 13:58 | Hospitalist Progress Note ---
Date of Service September 30, 2022 Assessment & Plan (1) Generalized weakness: (2) Weight loss, abnormal: (3) Hypoxia: Plan This is a 72-year-old female who has a significant past medical history of COPD, history of thyroidectomy and now acquired hypothyroidism, pulmonary hypertension who presents to ED secondary to feeling lightheaded and dizzy. Generalized weakness Unintentional weight loss Severe protein calorie malnutrition Dizziness Secondary to severe malnutrition. Will need occult malignancy workup. Upon further questioning, patient reports having had severe diarrhea on/off for past 1 month Consult dietitian-appreciate input and recommendation During last admission underwent C/T/Lspine MRI all were reviewed by Dr. Juarez and felt not etiology of weakness MRI of the brain with and without contrast is unremarkable Appreciate GI input and recommendation for EGD and colonoscopy as an outpatient E. coli UTI-pansensitive d/c ceftriaxone, switch to keflex. Plan for 7 day course Bradycardia on presentation SVT Echocardiogram showed-normal LV wall thickness, LV systolic function and normal, EF of 55 to 60%, LV wall motion is normal, right ventricle is normal in size and function, right atrium is moderately dilated, there is moderate tricuspid regurgitation She takes metoprolol for a history of PAT. On admission was bradycardic with HR down to 50s so BB was held, then HR noted to be up to 130-140s. Initial concern for A fib, telemetry reviewed by Cardiology and felt to be SVT. Metoprolol was restarted. Norovirus Diarrhea -stool PCR + norovirus -patient still with diarrhea x 1 week (initially she said 1 week no upon further questioning, she reports it has been off/on for 1 month) -Not relieved with imodium. Discussed with GI, will try cholestyramine -repeat C diff since she is also on antibiotics for UTI COPD with mild exacerbation Tobacco abuse Hypoxia Stable currently Ongoing smoking cessation counseling Hypothyroidism 2/2 removal of thyroid TSH 28, low normal free t4 levothyroxine increased to 88mcg daily, will need repeat TSH in 4-6 weeks carotid u/s shows thyroid adenopathy, needs u/s guided FNA--> can be done as outpatient Anemia remains stable. Iron studies, B12, folate normal Dehydration 2/2 poor intake Resume IVF DVT ppx: Sq Heparin BID FULL CODE PCP: Erasto Disposition-- Discharge home pending improvement of diarrhea Admission and Anticipated Discharge Date Admission Date: September 25, 2022 Subjective Complains of worsening diarrhea. At least 10 times yesterday. Increased bloating. Beginning to feel weak Review of Systems Review of Systems: as above Physical Exam Physical Exam: thin, cachetic, non toxic ENMT: Mucous membrane dry, no murmurs/rubs/gallops Respiratory: Breathing comfortably on room air, no wheezing/rhonchi Cardiovascular: regular rate and rhythm, no murmurs/rubs Gastrointestinal (Abdomen): +gaseous distension, soft, non tender Musculoskeletal: thin, peripheral muscle wasting Neurologic: awake, alert, spontaneously moving extremities Psychiatric: anxious Results & Data Results & Data Vital Signs (Past 12 Hours) Vital Signs Temp Pulse Pulse Resp BP BP Pulse Ox 09/30/22 12:09 90 09/30/22 11:51 36.3 C L 106 H 16 100/65 98 09/30/22 07:56 36.7 C 113 H 16 101/62 98 09/30/22 04:00 36.8 C 71 18 134/78 99 O2 Del Method 09/30/22 12:09 09/30/22 11:51 Room Air 09/30/22 07:56 Room Air 09/30/22 04:00 Room Air
[2022-09-30] MEDS: SODIUM CHLORIDE 0.9% 1000ML 1,000 ML IV SCH (15:07)
[2022-09-30] MEDS: CHOLESTYRAMINE LIGHT 4 GM PKT PO SCH ×2 (15:28→23:19)
[2022-09-30 22:55] LABS: Cdiff Antigen Positive; Cdiff Toxin A+B Negative Cdiff Toxin (Negative); Cdiff Toxin B Gene (2yr or >) Positive Cdiff Gene (Neg)
[2022-10-01] MEDS: SODIUM CHLORIDE 0.9% 1000ML 1,000 ML IV SCH (03:32)
[2022-10-01] MEDS: LEVOTHYROXINE SODIUM 88 MCG TABLET PO SCH (06:11)
[2022-10-01 06:22] LABS: BUN Creatinine Ratio 34.8 (10-20); Calcium 7.8 mg/dl (8.6-10.3); Creatinine Clr Calc Pharmacy 52.5 ml/min; Est GFR (African American) 102.3 ml/min; Est GFR (Non-African American) 88.3 ml/min; Magnesium 1.9 mg/dl (1.7-2.4); Potassium 3.8 mmol/L (3.5-5.1)
[2022-10-01] MEDS: CHOLESTYRAMINE LIGHT 4 GM PKT PO SCH (09:33)
[2022-10-01] MEDS: METOPROLOL TARTRATE 25 MG TAB PO SCH ×2 (09:34→15:05)
[2022-10-01] MEDS: PANTOprazole 40 MG TAB PO SCH (09:34)
[2022-10-01] MEDS: cephALEXin 500 MG CAP PO SCH ×2 (09:34→13:46)
[2022-10-01] MEDS: HEPARIN SOD 5,000 UNIT/0.5 ML VIAL SQ SCH (09:34)
[2022-10-01] MEDS: OXYBUTYNIN CHLORIDE XL 5 MG TABCR PO SCH (09:34)
--- NOTE | 2022-10-01 14:30 | Discharge Summary ---
Date of Service October 01, 2022 Admission HPI Per Admitting Provider This is a 72-year-old female who has a significant past medical history of COPD, history of thyroidectomy and now acquired hypothyroidism, pulmonary hypertension who presents to ED secondary to feeling lightheaded and dizzy. Of significance patient was hospitalized 08/16 to 08/22/2022 secondary to dizziness, falls, numbness in hands and legs. She was found to have a vitamin B12 deficiency. She received appropriate vitamin B12 supplementation and her intrinsic antibody test was negative. She was seen and evaluated by neurology who recommended [facility] MRIs orthopedic spine reviewed images and felt a most concerning would be her cervical spine which demonstrated advanced cervical spondylosis however no gross cord compression was seen. It was felt that her sensory deficits or nutrition related. Patient also reported weight loss of 115 pounds to 90 pounds in 1 month. She was treated with appropriate antibiotics for E. coli UTI. She was also found to have severe right hydronephrosis and was seen and evaluated by urology who recommended follow-up as an outpatient. She presents back to hospital today secondary to dizziness and lightheadedness. In regards to patient's severe right hydronephrosis she did have a Lasix emptying study done by urology as an outpatient which shows severe obstruction. It is recommended by urologist that she could undergo cystoscopy with stent placement if symptoms are persistent. Patient did have lung cancer screening CT in June 2022 which recommended to continue routine screenings and was negative. She also underwent CTA abdomen pelvis in July 2022 which was negative, did reveal malpositioned right kidney with pelvocaliectasis. Patient feels she never should have been discharged when she was discharged during her last hospitalization. She is very unhappy with that. She has continued to get weak since her hospitalization and has a continued to lose weight. She states she is now down to 84 pounds from 115 pounds in the last 1 to 2 months. She states she has a very good appetite despite weight loss and does not understand, "where is his weight going?" She does have history of COPD and does admit to increased wheezing. She does have chronic shortness of breath but does not feel it is unchanged. She complains of dizziness and having a, "off balance feeling," whenever walking. She states that she is so weak she tends to have to crawl places. She does not take any protein shakes that she does not like them. She also admits to being incontinent of stool and is currently wearing a depends. She states that she is continent of urine. She denies any burning when she pees, dysuria, increased urgency or frequency with urination, nausea, vomiting or abdominal pain. She denies any fever, chills, sweats, chest pain or hemoptysis. In ED patient was slightly hypoxic requiring 2 L of oxygen via nasal cannula. Chest x-ray was negative for any acute abnormality. Her TSH was elevated at 28 but free T4.86. Principal Diagnosis Norovirus Diarrhea Malnutrition, weight loss Hypothyroidism Pansensitive UTI SVT Discharge Exam Thin, cachetic, sitting in chair, calm and comfortable Respiratory Breathing comfortably on room air, no wheezing/rhonchi Cardiovascular Regular rate and rhythm, HR on telemetry is in 80s Gastrointestinal (Abdomen) soft, non tender, non distended Musculoskeletal trace edema bilateral ankles Neurologic awake, alert, spontaneously moving extremities Psychiatric calm, speech not tangential Discharge Data Allergies Allergy/AdvReac Type Severity Reaction Status Date / Time morphine Allergy Unknown shock, Verified 09/25/22 15:37 dspnea Consultations 09/25/22 16:17 ED Decision to Admit Stat 09/25/22 19:22 Consult Gastroenterology Routine 09/29/22 12:28 Consult Cardiology Routine Ordered Studies 09/25/22 17:12 MR brain wo/w con Routine 09/25/22 17:45 US carotid doppler BI Routine 09/25/22 19:31 CT chest without contrast [CT chest diagnostic wo con] Routine Hospital Course (1) Generalized weakness: (2) Weight loss, abnormal: (3) Hypoxia: Plan This is a 72-year-old female who has a significant past medical history of COPD, history of thyroidectomy and now acquired hypothyroidism, pulmonary hypertension who presents to ED secondary to feeling lightheaded and dizzy. Generalized weakness Unintentional weight loss Severe protein calorie malnutrition Dizziness Secondary to severe malnutrition. Will need occult malignancy workup. Upon further questioning, patient reports having had severe diarrhea on/off for the past 1 month Tolerating a regular diet During last admission underwent C/T/Lspine MRI all were reviewed by Dr. Juarez and felt not etiology of weakness MRI of the brain with and without contrast negative for stroke CT chest negative for lung mass (patient with smoking history) Appreciate GI input and recommendation for EGD and colonoscopy as an outpatient Will need to follow up with PCP for mammogram E. coli UTI-pansensitive Received 4 days of IV ceftriaxone and 3 days of Keflex. Finished 7 day course Bradycardia SVT Echocardiogram showed-normal LV wall thickness, LV systolic function and normal, EF of 55 to 60%, LV wall motion is normal, right ventricle is normal in size and function, right atrium is moderately dilated, there is moderate tricuspid regurgitation She takes metoprolol for a history of PAT. On admission was bradycardic with HR down to 50s so metoprolol was held, then HR noted to be up to 130-140s. Initial concern for A fib, telemetry reviewed by Cardiology and felt to be SVT. Metoprolol was restarted at home dose Follow up with Cardiology after discharge Norovirus Diarrhea stool PCR + norovirus Patient reports on/off diarrhea for the past 1 month but worsened in past 1 week Symptoms not improved with imodium but relieved with cholestyramine. Prescription given for cholestyramine BID ( BID scheduled for 3 days then BID as needed, 14 day supply given) Repeat stool studies + C diff gene but negative for toxin. COPD with mild exacerbation now resolved Tobacco abuse Hypoxia resolved Breathing comfortably on room air Ongoing smoking cessation counseling, patient has abstained from smoking in weaks Was previously on Advair but stopped taking it due to cost. She was advised to speak with her PCP about possibly getting prior authorization Prescription for Duoneb nebulizer sent to her pharmacy in event she needs it at home. Hypothyroidism 2/2 removal of thyroid TSH 28, low normal free t4 levothyroxine increased to 88mcg daily, will need repeat TSH in 6 weeks carotid u/s shows thyroid adenopathy, needs u/s guided FNA--> can be done as outpatient Anemia remains stable. Iron studies, B12, folate normal Total Time Total Time Spent Total Time Spent (In Minutes): 35 Discharge Plan Discharge Items Patient Disposition: Home - Self-Care Reason For Visit: PRE SYNCOPE Discharge Diagnosis: Norovirus Diarrhea Malnutrition, weight loss Hypothyroidism Pansensitive UTI SVT Condition on Discharge: Good Activity: Resume your previous activity Non-emergency contact: Primary Care Provider and Traffic Safety Administrator Call non-emergency contact if: you have any medication questions and your symptoms worsen Follow-up/Referrals: Emery Kwan DO [[employer]] - Hayes Maurer DO [Primary Care Provider] - (Date & Time 10/04/2022 11:00 AM Provider FARTUN Mcfarlane Department Family Practice [facility] ) Chris Norwood Jr, MD [Physician] - Diet: Regular Addtl Attending Provider Instructions: Please follow up with your Primary Care doctor for: 1) Routine, age appropriate cancer screening (mammogram, colonoscopy) 2) Repeat TSH in 6 weeks Please establish care with a [employer] (you have SVT which is rapid heart rate, alternated by low heart rate) 1) you were continued on metoprolol XL 12.5mg daily Please follow up with GI for colonoscopy You also were treated for norovirus diarrhea which has been ongoing for some time now. You can take cholestyramine twice a day for the next 2-3 days then twice a day as needed thereafter You were also treated for a UTI here You are at increased risk for C diff colitis if you have antibiotic exposure. You did receive 6 days of antibiotics here for your UTI. You were checked for C diff here and it was negative for active infection Pending Studies at Discharge: No Stand-Alone Forms: My [facility], Smoking Cessation Medications and DC Order Prescriptions: New cholestyramine-aspartame [Prevalite] 4 gram Powder In Packet 4 g PO BID@1000,2200 14 Days Qty: 30 0RF Rx Instructions: BID x 3 days then BID as needed thereafter levothyroxine [Synthroid] 88 mcg Tablet 88 mcg PO DAILYBB 60 Days Qty: 60 0RF pantoprazole 40 mg Tablet,Delayed Release (Dr/Ec) 40 mg PO QAM 30 Days Qty: 30 0RF ipratropium-albuterol 0.5 mg-3 mg(2.5 mg base)/3 mL Solution For Nebulization 3 ml NEB QIDR PRN (Reason: shortness of breath or wheezing) 30 Days Qty: 90 0RF Continued metoprolol succinate 25 mg tablet extended release 24 hr 12.5 mg PO DAILY Qty: 15 0RF oxybutynin chloride 5 mg tablet extended release 24hr 5 mg PO QAM Discontinued famotidine 40 mg tablet 40 mg PO HS levothyroxine 75 mcg tablet 75 mcg PO QAM Discharge Orders: Discharge Order (Routine); Ordered 10/01/22 Ordered By: Juan Diego Courtney Admission Data Admit Date/Time: 09/25/22 16:23 Attending Provider: Juan Diego Courtney Admit Provider: Tamia Walker Primary Care Provider: Hayes Maurer Other Providers: Tamia Walker ; Chris Norwood Jr ; Yvan Rodriguez ; Emery Kwan
== END 2022-10-01 16:08 | disposition home or self-care (01) | DRG 391 ==
LOC: ED 13:01 → SUATTDRO 16:23 → 2N 16:23

== ENCOUNTER 2022-10-12 12:48 | Inpatient (IN) ==
--- NOTE | 2022-10-12 13:43 | Emergency Department Note ---
Impression & Plan Weight loss, abnormal, Acute UTI, Generalized weakness, Leg edema ED Provider Note Provider: Mario Alberto Daly MD DATE OF SERVICE: 10/12/2022 CHIEF COMPLAINT: Weight loss, ongoing diarrhea, dizziness and falls HISTORY OF PRESENT ILLNESS: Patient is a 72-year-old female past history including norovirus, COPD, prior thyroidectomy, pulmonary hypertension presenting here today after referred by her primary doctor's office for evaluation. Patient hospitalized here several times over the past 2 months that has been ongoing issues with diarrhea and weight loss. States she does not have nausea or vomiting has been eating but has just ongoing nonbloody diarrhea. She has been taking home medications including cholestyramine but she still continues significant diarrhea. Reports continued weight loss and now states she has an increase swelling of her lower legs. No fevers reported. States she has been quite weak and falling and unable to leave her house. Having difficulty getting up the steps to her second level of her house. Denies striking her head however significant pain complaints at this time. Denies abdominal pain. Denies any significant injury from the falls. Reports she has ongoing numbness issues with her fingers and toes as well. Denies a history of diabetes. Patient states they told her that she had norovirus recently but it does not seem to be getting better and she is unsure if this is still ongoing. States she has been taking her medications. Patient states that she is not doing well at home particularly when her is at work she feels unsafe. PAST MEDICAL HISTORY: As noted above MEDICATIONS: Reviewed home medication list SOCIAL HISTORY: Lives at home with , history of smoking PHYSICAL EXAM: GENERAL: alert and oriented in no acute distress on stretcher, somewhat cachectic in nature Head: normocephalic and atraumatic EYES: No injection, discharge or icterus. NECK: Trachea midline. ENT: Mucous membranes pink and moist. LUNGS: Airway patent. No retractions or tachypnea HEART: Regular rate and rhythm. No chest wall tenderness ABDOMEN: Soft and non-tender, without guarding or rebound. SKIN: Acyanotic, warm, dry, without rashes EXTREMITIES: Without swelling, tenderness or deformity except for bilateral 2+ edema to the knees to the feet. No significant redness or open wounds noted here NEUROLOGICAL: No aphasia. No facial droop or slurred speech. Patient with some decrease sensation of the bilateral toes and fingertips. EK bpm sinus bradycardia sinus arrhythmia PVC. No acute ST segment elevation or depression with a QTc of 432. Patient's laboratory studies and imaging reviewed. Differential includes Infection, gastrointestinal issue, dehydration, metabolic abnormality, hypo/hyperglycemia, electrolyte disturbance, anemia, hypoxia, cardiac sources, intracerebral event, neurologic, as well as other pathologies. IMPRESSION/MEDICAL DECISION MAKING: Patient with ongoing weight loss and diarrheal illness as well as dizziness and falls. Reviewed prior records is fairly significant amount as well as testing. Patient has had Of which there several different MRIs and CT scans. Has had some evaluation for neuropathy in the past. Recent admission was positive for norovirus and tested negative for the C. difficile toxin. Does not seem hypoxic or in distress upon exam. Fairly benign abdomen without significant tenderness. Seems somewhat cachectic and frail in nature. Will complete a CT abdomen pelvis as it has been several months since this is occurred to see if there is any other findings in the abdomen. Basic blood work and urine samples were ordered in addition to extensive blood cultures, folate and B12 testing, procalcitonin, and TSH. Patient reports at times she seems almost like she is delirious or hallucinating. Will complete a head CT given the falls and has had extensive stroke workup in the past and low suspicion for this given prior multiple evaluations. Blood work here with stable mild anemia. Slight leukopenia. Normal platelet count. No severe electrolyte abnormalities with normal renal function. Slight low calcium but not significantly abnormal. No signs of elevated CK. No signs of troponin elevation or cardiac injury. TSH elevated but free T4 within normal limits. Procalcitonin not significantly elevated. Folate somewhat low. B12 within normal limits. Urinalysis question for infection. Negative Lyme testing. Negative anaplasmosis smear. Negative COVID. Chest x-ray and CT of the head per radiology are reassuring without findings of pneumonia, pleural effusion, pneumothorax, intracranial hemorrhage or mass or evidence of stroke. Some elevated BNP consistent with bit of her leg swelling but does not appear to be in pulmonary edema at this time. CT abdomen pelvis with findings of some actual constipation as well as some body wall edema persistent right-sided hydronephrosis. Question if he now has more of an overflow diarrhea situation given reports of diarrhea and the CT findings. Reviewed in [facility] multiple phone calls has been having with caser as well as providers in the outpatient setting. Again not doing well at home. Question of UTI again today and will send urine for culture. Given a dose of ceftriaxone on review of prior urine cultures. Discussed with her findings. Some component of her diarrhea may be overflow from constipation issues. Discussed with her no clear 100% etiology to explain some of her weakness. Discussed with her options of staying for care if she feels unsafe at home and has been so weak. After long discussion she was agreeable with this at least for several day trial to see if we can improve things for her and if not may just be significantly deconditioned from her hospitalizations. DIAGNOSIS: weakness, acute UTI, failure to thrive, loose stools DISPOSITION: Hospitalist will evaluate Patient was agreeable with this plan. Past Med/Surg History Medical History COPD (chronic obstructive pulmonary disease) Hypothyroid Vitamin D deficiency Surgical History Hx of colonoscopy Hx of lumbosacral spine surgery x3 Hx of thyroidectomy Family History Other Breast cancer Social History Smoking Status: Current some day smoker Tobacco Type: Cigarettes Cigarettes Per Day: 1 pack a week; Second Hand Exposure: Yes; Do You Dip or Chew Tobacco: No; Hx Alcohol Use: No Hx Substance Use: No Preferred Language: Irish Communication Ability: Effective Ccie Required: No Beliefs That Will Affect Care: None Current Living Situation: Spouse Feels Safe at Home: No Assistive Devices: Cane Allergies Allergies Allergy/AdvReac Type Severity Reaction Status Date / Time morphine Allergy Unknown shock, Verified 09/25/22 15:37 dspnea Home Meds Home Medications Medication Instructions Recorded Confirmed oxybutynin chloride 5 mg 5 mg PO QAM 09/25/22 09/25/22 tablet,extended release 24 hr Previous Rx's Medication Instructions Recorded metoprolol succinate 25 mg 12.5 mg PO DAILY #15 tabs 08/22/22 tablet,extended release 24 hr cholestyramine-aspartame 4 gram 4 g PO BID@1000,2200 14 days #30 ea 10/01/22 oral powder for susp in a packet (Prevalite) ipratropium 0.5 mg-albuterol 3 mg 3 ml NEB QIDR PRN shortness of 10/01/22 (2.5 mg base)/3 mL nebulization breath or wheezing 30 days #90 mL soln levothyroxine 88 mcg tablet 88 mcg PO DAILYBB 60 days #60 tabs 10/01/22 (Synthroid) pantoprazole 40 mg tablet,delayed 40 mg PO QAM 30 days #30 tabs 10/01/22 release Results & Data (ED) Vital Signs Vital Signs - 24 hr 10/12/22 13:00 10/12/22 13:29 10/12/22 13:29 Temperature 36.8 C Temperature Source Skin Pulse Rate 58 L Pulse Rate [Apical] 56 L Respiratory Rate 18 20 Blood Pressure 115/72 Blood Pressure [Right Arm] 115/87 Blood Pressure Mean 86 Blood Pressure Mean [Right Arm] 96 Pulse Oximetry 99 98 Oxygen Delivery Method Room Air Room Air Room Air Sepsis Recent Fever Within 48 Hours No Sepsis New/Unexplained Change in Mental Status No Sepsis Action Taken by Nursing No Action Required 10/12/22 14:32 10/12/22 15:00 Temperature Temperature Source Pulse Rate 52 L Pulse Rate [Apical] 57 L Respiratory Rate 18 Blood Pressure Blood Pressure [Right Arm] 121/71 Blood Pressure Mean Blood Pressure Mean [Right Arm] 87 Pulse Oximetry 99 Oxygen Delivery Method Room Air Sepsis Recent Fever Within 48 Hours Sepsis New/Unexplained Change in Mental Status Sepsis Action Taken by Nursing Laboratory Data 10/12/22 13:55 10/12/22 13:55 Lab Results 10/12/22 10/12/22 10/12/22 Range/Units 13:55 13:55 13:55 WBC 3.62 L (4.8-10.8) K/ul RBC 3.44 L (4.20-5.40) M/uL Hgb 10.8 L (12.0-16.0) g/dl Hct 32.1 L (37.0-47.0) % MCV 93.3 (80.0-100.0) fL MCH 31.4 (25.0-34.0) pg MCHC 33.6 (32.0-36.0) g/dL RDW Std Deviation 53.6 H (36.4-46.3) fL RDW Coeff of Minal 15.7 H (11.5-14.5) % Plt Count 230 (130-400) K/uL MPV 9.6 (9.4-12.4) fL Immature Gran % (Auto) 0.3 % Neut % (Auto) 72.6 % Lymph % (Auto) 20.4 % Moore % (Auto) 5.8 % Eos % (Auto) 0.3 % Baso % (Auto) 0.6 % Neut # (Auto) 2.63 (1.40-6.50) K/uL Lymph # (Auto) 0.74 L (1.2-3.4) K/uL Moore # (Auto) 0.21 (0.11-0.59) K/uL Eos # (Auto) 0.01 (0-0.50) K/uL Baso # (Auto) 0.02 (0-0.2) K/uL Immature Gran # (Auto) 0.01 (0.01-0.20) K/uL PT 10.8 (9.0-12.0) Seconds INR 1.0 (0.9-1.1) Sodium 136 (136-145) mmol/L Potassium 3.4 L (3.5-5.1) mmol/L Chloride 105 (98-107) mmol/L Carbon Dioxide 23 (21-32) mmol/L Anion Gap 8 (3-11) BUN 17 (6-23) mg/dl Creatinine 0.65 (0.6-1.2) mg/dl Est Cr Clr Drug Dosing 56.6 ml/min Est GFR ( Amer) 102.8 ml/min Est GFR (Non-Af Amer) 88.7 ml/min BUN/Creatinine Ratio 26.2 H (10-20) Glucose 90 (70-99(Fasting)) mg/dl Lactate (0.4-2.0) mmol/L Calcium 8.1 L (8.6-10.3) mg/dl Magnesium 2.0 (1.7-2.4) mg/dl Total Bilirubin 1.0 (0.2-1.0) mg/dl AST 16 (13-39) U/L ALT 15 (7-52) U/L Alkaline Phosphatase 69 (34-104) U/L Total Creatine Kinase 126 (26-192) U/L Troponin I High Sens 4.5 (0-14) pg/ml B-Natriuretic Peptide (0-100) pg/ml Total Protein 6.0 (6.0-8.3) gm/dl Albumin 3.3 L (3.4-5.0) gm/dl Globulin 2.7 (2.5-4.0) gm/dl Albumin/Globulin Ratio 1.2 (0.9-2) Lipase 14 (11-82) U/L Vitamin B12 (180-914) pg/ml Folate (>5.38) ng/ml Procalcitonin (0-0.5) ng/ml TSH (0.300-4.500) uIu/ml Free T4 (0.61-1.60) ng/dl Urine Color Urine Appearance (Clear) Urine pH (4.5-7.5) Ur Specific [place] (1.000-1.030) Urine Protein (Negative) Urine Glucose (UA) (Negative) Urine Ketones (Negative) Urine Blood (Negative) Urine Nitrite (Negative) Urine Bilirubin (Negative) Urine Urobilinogen (Negative) Ur Leukocyte Esterase (Negative) Urine WBC (Auto) (0-5) /hpf Urine RBC (Auto) (0-4) /hpf U Hyaline Cast (Auto) (0-5) /lpf U Epithel Cells (Auto) (0-5) /lpf Urine Bacteria (Auto) (Negative) Anaplasma Smear See Comment Babesia Smear See Comment Lyme Disease IgG Ab (Negative) Lyme Disease IgM Ab (Negative) SARS-CoV-2, RNA, NAAT (NEGATIVE) 10/12/22 10/12/22 10/12/22 Range/Units 13:55 13:55 13:55 WBC (4.8-10.8) K/ul RBC (4.20-5.40) M/uL Hgb (12.0-16.0) g/dl Hct (37.0-47.0) % MCV (80.0-100.0) fL MCH (25.0-34.0) pg MCHC (32.0-36.0) g/dL RDW Std Deviation (36.4-46.3) fL RDW Coeff of Minal (11.5-14.5) % Plt Count (130-400) K/uL MPV (9.4-12.4) fL Immature Gran % (Auto) % Neut % (Auto) % Lymph % (Auto) % Moore % (Auto) % Eos % (Auto) % Baso % (Auto) % Neut # (Auto) (1.40-6.50) K/uL Lymph # (Auto) (1.2-3.4) K/uL Moore # (Auto) (0.11-0.59) K/uL Eos # (Auto) (0-0.50) K/uL Baso # (Auto) (0-0.2) K/uL Immature Gran # (Auto) (0.01-0.20) K/uL PT (9.0-12.0) Seconds INR (0.9-1.1) Sodium (136-145) mmol/L Potassium (3.5-5.1) mmol/L Chloride (98-107) mmol/L Carbon Dioxide (21-32) mmol/L Anion Gap (3-11) BUN (6-23) mg/dl Creatinine (0.6-1.2) mg/dl Est Cr Clr Drug Dosing ml/min Est GFR ( Amer) ml/min Est GFR (Non-Af Amer) ml/min BUN/Creatinine Ratio (10-20) Glucose (70-99(Fasting)) mg/dl Lactate 2.0 (0.4-2.0) mmol/L Calcium (8.6-10.3) mg/dl Magnesium (1.7-2.4) mg/dl Total Bilirubin (0.2-1.0) mg/dl AST (13-39) U/L ALT (7-52) U/L Alkaline Phosphatase (34-104) U/L Total Creatine Kinase (26-192) U/L Troponin I High Sens (0-14) pg/ml B-Natriuretic Peptide (0-100) pg/ml Total Protein (6.0-8.3) gm/dl Albumin (3.4-5.0) gm/dl Globulin (2.5-4.0) gm/dl Albumin/Globulin Ratio (0.9-2) Lipase (11-82) U/L Vitamin B12 (180-914) pg/ml Folate (>5.38) ng/ml Procalcitonin 0.05 (0-0.5) ng/ml TSH 38.754 H (0.300-4.500) uIu/ml Free T4 0.68 (0.61-1.60) ng/dl Urine Color Urine Appearance (Clear) Urine pH (4.5-7.5) Ur Specific [place] (1.000-1.030) Urine Protein (Negative) Urine Glucose (UA) (Negative) Urine Ketones (Negative) Urine Blood (Negative) Urine Nitrite (Negative) Urine Bilirubin (Negative) Urine Urobilinogen (Negative) Ur Leukocyte Esterase (Negative) Urine WBC (Auto) (0-5) /hpf Urine RBC (Auto) (0-4) /hpf U Hyaline Cast (Auto) (0-5) /lpf U Epithel Cells (Auto) (0-5) /lpf Urine Bacteria (Auto) (Negative) Anaplasma Smear Babesia Smear Lyme Disease IgG Ab Negative (Negative) Lyme Disease IgM Ab Negative (Negative) SARS-CoV-2, RNA, NAAT (NEGATIVE) 10/12/22 10/12/22 10/12/22 Range/Units 13:55 13:55 14:13 WBC (4.8-10.8) K/ul RBC (4.20-5.40) M/uL Hgb (12.0-16.0) g/dl Hct (37.0-47.0) % MCV (80.0-100.0) fL MCH (25.0-34.0) pg MCHC (32.0-36.0) g/dL RDW Std Deviation (36.4-46.3) fL RDW Coeff of Minal (11.5-14.5) % Plt Count (130-400) K/uL MPV (9.4-12.4) fL Immature Gran % (Auto) % Neut % (Auto) % Lymph % (Auto) % Moore % (Auto) % Eos % (Auto) % Baso % (Auto) % Neut # (Auto) (1.40-6.50) K/uL Lymph # (Auto) (1.2-3.4) K/uL Moore # (Auto) (0.11-0.59) K/uL Eos # (Auto) (0-0.50) K/uL Baso # (Auto) (0-0.2) K/uL Immature Gran # (Auto) (0.01-0.20) K/uL PT (9.0-12.0) Seconds INR (0.9-1.1) Sodium (136-145) mmol/L Potassium (3.5-5.1) mmol/L Chloride (98-107) mmol/L Carbon Dioxide (21-32) mmol/L Anion Gap (3-11) BUN (6-23) mg/dl Creatinine (0.6-1.2) mg/dl Est Cr Clr Drug Dosing ml/min Est GFR ( Amer) ml/min Est GFR (Non-Af Amer) ml/min BUN/Creatinine Ratio (10-20) Glucose (70-99(Fasting)) mg/dl Lactate (0.4-2.0) mmol/L Calcium (8.6-10.3) mg/dl Magnesium (1.7-2.4) mg/dl Total Bilirubin (0.2-1.0) mg/dl AST (13-39) U/L ALT (7-52) U/L Alkaline Phosphatase (34-104) U/L Total Creatine Kinase (26-192) U/L Troponin I High Sens (0-14) pg/ml B-Natriuretic Peptide 397 H (0-100) pg/ml Total Protein (6.0-8.3) gm/dl Albumin (3.4-5.0) gm/dl Globulin (2.5-4.0) gm/dl Albumin/Globulin Ratio (0.9-2) Lipase (11-82) U/L Vitamin B12 522 (180-914) pg/ml Folate 4.91 L (>5.38) ng/ml Procalcitonin (0-0.5) ng/ml TSH (0.300-4.500) uIu/ml Free T4 (0.61-1.60) ng/dl Urine Color Yellow Urine Appearance Clear (Clear) Urine pH 5.0 (4.5-7.5) Ur Specific [place] 1.014 (1.000-1.030) Urine Protein Negative (Negative) Urine Glucose (UA) Negative (Negative) Urine Ketones Negative (Negative) Urine Blood Negative (Negative) Urine Nitrite Positive A (Negative) Urine Bilirubin Negative (Negative) Urine Urobilinogen Negative (Negative) Ur Leukocyte Esterase Trace H (Negative) Urine WBC (Auto) 5-10 H (0-5) /hpf Urine RBC (Auto) 0-4 (0-4) /hpf U Hyaline Cast (Auto) 1-5 (0-5) /lpf U Epithel Cells (Auto) 10-20 H (0-5) /lpf Urine Bacteria (Auto) Negative (Negative) Anaplasma Smear Babesia Smear Lyme Disease IgG Ab (Negative) Lyme Disease IgM Ab (Negative) SARS-CoV-2, RNA, NAAT (NEGATIVE) 10/12/22 Range/Units 14:13 WBC (4.8-10.8) K/ul RBC (4.20-5.40) M/uL Hgb (12.0-16.0) g/dl Hct (37.0-47.0) % MCV (80.0-100.0) fL MCH (25.0-34.0) pg MCHC (32.0-36.0) g/dL RDW Std Deviation (36.4-46.3) fL RDW Coeff of Minal (11.5-14.5) % Plt Count (130-400) K/uL MPV (9.4-12.4) fL Immature Gran % (Auto) % Neut % (Auto) % Lymph % (Auto) % Moore % (Auto) % Eos % (Auto) % Baso % (Auto) % Neut # (Auto) (1.40-6.50) K/uL Lymph # (Auto) (1.2-3.4) K/uL Moore # (Auto) (0.11-0.59) K/uL Eos # (Auto) (0-0.50) K/uL Baso # (Auto) (0-0.2) K/uL Immature Gran # (Auto) (0.01-0.20) K/uL PT (9.0-12.0) Seconds INR (0.9-1.1) Sodium (136-145) mmol/L Potassium (3.5-5.1) mmol/L Chloride (98-107) mmol/L Carbon Dioxide (21-32) mmol/L Anion Gap (3-11) BUN (6-23) mg/dl Creatinine (0.6-1.2) mg/dl Est Cr Clr Drug Dosing ml/min Est GFR ( Amer) ml/min Est GFR (Non-Af Amer) ml/min BUN/Creatinine Ratio (10-20) Glucose (70-99(Fasting)) mg/dl Lactate (0.4-2.0) mmol/L Calcium (8.6-10.3) mg/dl Magnesium (1.7-2.4) mg/dl Total Bilirubin (0.2-1.0) mg/dl AST (13-39) U/L ALT (7-52) U/L Alkaline Phosphatase (34-104) U/L Total Creatine Kinase (26-192) U/L Troponin I High Sens (0-14) pg/ml B-Natriuretic Peptide (0-100) pg/ml Total Protein (6.0-8.3) gm/dl Albumin (3.4-5.0) gm/dl Globulin (2.5-4.0) gm/dl Albumin/Globulin Ratio (0.9-2) Lipase (11-82) U/L Vitamin B12 (180-914) pg/ml Folate (>5.38) ng/ml Procalcitonin (0-0.5) ng/ml TSH (0.300-4.500) uIu/ml Free T4 (0.61-1.60) ng/dl Urine Color Urine Appearance (Clear) Urine pH (4.5-7.5) Ur Specific [place] (1.000-1.030) Urine Protein (Negative) Urine Glucose (UA) (Negative) Urine Ketones (Negative) Urine Blood (Negative) Urine Nitrite (Negative) Urine Bilirubin (Negative) Urine Urobilinogen (Negative) Ur Leukocyte Esterase (Negative) Urine WBC (Auto) (0-5) /hpf Urine RBC (Auto) (0-4) /hpf U Hyaline Cast (Auto) (0-5) /lpf U Epithel Cells (Auto) (0-5) /lpf Urine Bacteria (Auto) (Negative) Anaplasma Smear Babesia Smear Lyme Disease IgG Ab (Negative) Lyme Disease IgM Ab (Negative) SARS-CoV-2, RNA, NAAT NEGATIVE (NEGATIVE) Administered Medications Discontinued Medications Ioversol (Optiray 320 100ml) 89 ml IV ONCE ONE Stop: 10/12/22 15:38 Last Admin: 10/12/22 15:38 Dose: 89 ml Documented By: NATHALIE Imaging Data Radiologist's Impression: Chest X-Ray 10/12/22 13:29 SINGLE VIEW CHEST CLINICAL HISTORY: Generalized weakness. FINDINGS: An AP, portable, upright chest radiograph is compared to study dated 09/25/2022. The heart is enlarged noting atherosclerotic calcification of the thoracic aorta. The pulmonary vasculature is noncongested. Mild emphysema and chronic interstitial thickening is similar to previous. There is bibasilar scarring/atelectasis. A nipple shadow projects over the left lung base. No airspace consolidation or large pleural effusion is identified. No pneumothorax is seen. The skeletal structures are osteopenic. The bony thorax is grossly intact. IMPRESSION: No acute cardiopulmonary abnormality. ACT 112: Negative or not required by law. Electronically signed by: Valentin Willard M.D. 10/12/2022 2:[address] 10/12/22 13:29 CT SCAN OF THE BRAIN WITHOUT IV CONTRAST CLINICAL HISTORY: Generalized weakness. Falls. COMPARISON STUDY: CT of the brain dated 08/16/2022. TECHNIQUE: Unenhanced axial CT scan of the brain is performed from the vertex to the skull base. A dose lowering technique was utilized adhering to the principles of ALARA. FINDINGS: Brain parenchyma: There is age-related involutional change noting mild subcortical and periventricular microangiopathic disease. There is no hemorrhage, mass effect, or evidence of acute territorial ischemia by CT criteria. Cantu-white matter differentiation is preserved. No extra-axial fluid collection is seen. Ventricles, sulci, cisterns: Prominent secondary to involutional change. Intracranial vasculature: There is atherosclerotic calcification of the cavernous carotid arteries. Calvarium: Unremarkable. Sinuses and mastoids: The visualized paranasal sinuses are clear. There is a small left mastoid effusion. The right mastoid air cells are well pneumatized. Orbits: The bony orbits are grossly intact. IMPRESSION: There is no hemorrhage, mass effect, or evidence of acute territorial ischemia by CT criteria. ACT 112: Negative or not required by law. Electronically signed by: Valentin Willard M.D. 10/12/2022 3:52 PM Abdomen/Pelvis CT 10/12/22 13:31 CT SCAN OF THE ABDOMEN AND PELVIS WITH IV CONTRAST CLINICAL HISTORY: Weight loss. Diarrhea. COMPARISON STUDY: Abdominal CT dated 08/16/2022. TECHNIQUE: Following the IV administration of 89 cc of Optiray 320, CT scan of the abdomen and pelvis is performed from the lung bases to the proximal femora. Images are reviewed in the axial, sagittal, and coronal planes. IV contrast was administered without complication. A dose lowering technique was utilized adhering to the principles of ALARA. The examination is degraded by patient cachexia, a paucity of intraperitoneal fat,*artifact from metallic spinal hardware. CT DOSE: 990.65 mGy.cm FINDINGS: Lung bases: The heart is enlarged and without pericardial effusion. There are trace pleural effusions with dependent atelectasis. Liver: The contrast-enhanced liver is normal in size, contour, and attenuation. There is no intrahepatic biliary ductal dilatation. The hepatic veins and portal veins are patent. Periportal edema is noted. Gallbladder: Unremarkable. Spleen: Normal in size and attenuation. Pancreas: Grossly unremarkable but not well assessed. Adrenal glands: Unremarkable. Kidneys: The contrast enhanced kidneys are normal in size. Moderate to severe right hydronephrosis is similar to previous. The right ureter is normal in caliber, with no obstructing stone or lesion identified. There is no left-sided hydronephrosis. The kidneys enhance symmetrically. A 5 mm nonobstructing calculus is noted in the left kidney. Abdominal vasculature: The abdominal aorta is normal in course and caliber noting moderate to advanced atherosclerotic calcification. Bowel: There is rectosigmoid fecal retention and moderate constipation. No bowel obstruction is seen. The appendix is well-visualized and normal. There is at least mild colonic diverticulosis without clear CT evidence of acute diverticulitis. Peritoneum: There is edema throughout the mesentery and a small volume of abdominopelvic ascites. Lymphadenopathy: None. Pelvic viscera: The bladder is distended but otherwise normal in appearance. The uterus and adnexa are normal as visualized. Skeletal structures: The skeletal structures are osteopenic. There is moderate to advanced sacral spondylosis with evidence of L3-L4 spinal fusion. No lytic or blastic lesions are seen. Soft tissues: The patient is cachectic. There is body wall edema. IMPRESSION: 1. Rectosigmoid fecal retention and moderate constipation. 2. Cardiomegaly and trace pleural effusions. 3. There is evidence of fluid overload with anasarca of the body wall, mesenteric edema, and a small volume of abdominopelvic ascites. 4. Moderate to severe right-sided hydronephrosis is similar to previous. No obstructing stone or lesion is clearly seen and this likely represents a UPJ type obstruction. 5. Left-sided nephrolithiasis. 6. Additional findings as above. ACT 112: Negative or not required by law. Electronically signed by: Valentin Willard M.D. 10/12/2022 4:15 PM Discharge Plan Visit Data Chief Complaint: Diarrhea Stated Complaint: FALL,DIARRHEA,DEHYDRATED,LOSING WEIGHT ED Provider: Mario Alberto Daly Discharge Problem: Weight loss, abnormal, Acute UTI, Generalized weakness, Leg edema Patient Disposition: Being Evaluated by Hospitalist Forms Stand Alone Forms: My [facility] Prescriptions Prescriptions: No Action metoprolol succinate 25 mg tablet extended release 24 hr 12.5 mg PO DAILY Qty: 15 0RF oxybutynin chloride 5 mg tablet extended release 24hr 5 mg PO QAM cholestyramine-aspartame [Prevalite] 4 gram Powder In Packet 4 g PO BID@1000,2200 14 Days Qty: 30 0RF Rx Instructions: BID x 3 days then BID as needed thereafter levothyroxine [Synthroid] 88 mcg Tablet 88 mcg PO DAILYBB 60 Days Qty: 60 0RF pantoprazole 40 mg Tablet,Delayed Release (Dr/Ec) 40 mg PO QAM 30 Days Qty: 30 0RF ipratropium-albuterol 0.5 mg-3 mg(2.5 mg base)/3 mL Solution For Nebulization 3 ml NEB QIDR PRN (Reason: shortness of breath or wheezing) 30 Days Qty: 90 0RF Referrals Referrals: Hayes Maurer DO [Primary Care Provider] -
--- NOTE | 2022-10-12 14:14 | XRay Report ---
SINGLE VIEW CHEST CLINICAL HISTORY: Generalized weakness. FINDINGS: An AP, portable, upright chest radiograph is compared to study dated 09/25/2022. The heart i s enlarged noting atherosclerotic calcification of the thoracic aorta. The pulmonary vasculature is n oncongested. Mild emphysema and chronic interstitial thickening is similar to previous. There is biba silar scarring/atelectasis. A nipple shadow projects over the left lung base. No airspace consolidati on or large pleural effusion is identified. No pneumothorax is seen. The skeletal structures are oste openic. The bony thorax is grossly intact. IMPRESSION: No acute cardiopulmonary abnormality. ACT 112: Negative or not required by law. Electronically signed by: Valentin Willard M.D. 10/12/2022 2:13 PM
[2022-10-12 14:33] LABS: Basophils # (auto) 0.02 K/uL (0-0.2); Basophils % (auto) 0.6 %; Eosinophils # (auto) 0.01 K/uL (0-0.50); Eosinophils % (auto) 0.3 %; Hematocrit (blood only) 32.1 % (37.0-47.0); Hemoglobin 10.8 g/dl (12.0-16.0); Immature Granulocytes # (auto) 0.01 K/uL (0.01-0.20); Immature Granulocytes % (auto) 0.3 %; Lymphocytes # (auto) 0.74 K/uL (1.2-3.4); Lymphocytes % (auto) 20.4 %; Mean Corpuscular Hemoglobin 31.4 pg (25.0-34.0); Mean Corpuscular Hgb Conc 33.6 g/dL (32.0-36.0); Mean Corpuscular Volume 93.3 fL (80.0-100.0); Mean Platelet Volume 9.6 fL (9.4-12.4); Monocytes # (auto) 0.21 K/uL (0.11-0.59); Monocytes % (auto) 5.8 %; Neutrophils # (auto) 2.63 K/uL (1.40-6.50); Neutrophils % (auto) 72.6 %; Platelet Count 230 K/uL (130-400); RDW Coefficient of Variation 15.7 % (11.5-14.5); RDW Standard Deviation 53.6 fL (36.4-46.3); Red Blood Count 3.44 M/uL (4.20-5.40); White Blood Count 3.62 K/ul (4.8-10.8)
[2022-10-12 14:46] LABS: Albumin Globulin Ratio 1.2 (0.9-2); Albumin Level 3.3 gm/dl (3.4-5.0); BUN Creatinine Ratio 26.2 (10-20); Calcium 8.1 mg/dl (8.6-10.3); Creatinine Clr Calc Pharmacy 56.6 ml/min; Est GFR (African American) 102.8 ml/min; Est GFR (Non-African American) 88.7 ml/min; Globulin 2.7 gm/dl (2.5-4.0); Potassium 3.4 mmol/L (3.5-5.1)
[2022-10-12 14:52] LABS: Troponin I High Sensitivity 4.5 pg/ml (0-14)
[2022-10-12 14:54] LABS: Appearance Urine Clear (Clear); Bacteria Urine Automated Negative (Negative); Bilirubin Urine Negative (Negative); Blood Urine Negative (Negative); Color Urine Yellow; Glucose Urine UA Negative (Negative); Ketones Urine Negative (Negative); Leukocyte Esterase Urine Trace (Negative); Nitrite Urine Positive (Negative); Protein Urine Negative (Negative); RBC Urine Automated 0-4 /hpf (0-4); Specific Gravity Urine 1.014 (1.000-1.030); Urobilinogen Urine Negative (Negative)
[2022-10-12 14:56] LABS: Prothrombin Time 10.8 Seconds (9.0-12.0)
[2022-10-12 15:00] LABS: Thyroid Stimulating Hormone 38.754 uIu/ml (0.300-4.500)
[2022-10-12 15:03] LABS: Procalcitonin 0.05 ng/ml (0-0.5)
[2022-10-12 15:09] LABS: Lyme Ab IgG w/WB Rflx Negative (Negative); Lyme Ab IgM w/WB Rflx Negative (Negative)
[2022-10-12 15:11] LABS: Folate (Folic Acid),Ser orPlas 4.91 ng/ml (>5.38)
[2022-10-12 15:37] LABS: T4 Free Thyroxine 0.68 ng/dl (0.61-1.60)
[2022-10-12] MEDS ORDERED: OPTIRAY 320 100ml IV ONE (15:37)
--- NOTE | 2022-10-12 15:53 | CT Scan Report ---
CT SCAN OF THE BRAIN WITHOUT IV CONTRAST CLINICAL HISTORY: Generalized weakness. Falls. COMPARISON STUDY: CT of the brain dated 08/16/2022. TECHNIQUE: Unenhanced axial CT scan of the brain is performed from the vertex to the skull base. A do se lowering technique was utilized adhering to the principles of ALARA. FINDINGS: Brain parenchyma: There is age-related involutional change noting mild subcortical and periventricula r microangiopathic disease. There is no hemorrhage, mass effect, or evidence of acute territorial isc hemia by CT criteria. Cantu-white matter differentiation is preserved. No extra-axial fluid collection is seen. Ventricles, sulci, cisterns: Prominent secondary to involutional change. Intracranial vasculature: There is atherosclerotic calcification of the cavernous carotid arteries. Calvarium: Unremarkable. Sinuses and mastoids: The visualized paranasal sinuses are clear. There is a small left mastoid effus ion. The right mastoid air cells are well pneumatized. Orbits: The bony orbits are grossly intact. IMPRESSION: There is no hemorrhage, mass effect, or evidence of acute territorial ischemia by CT leticia marques. ACT 112: Negative or not required by law. Electronically signed by: Valentin Willard M.D. 10/12/2022 3:52 PM
--- NOTE | 2022-10-12 16:17 | CT Scan Report ---
CT SCAN OF THE ABDOMEN AND PELVIS WITH IV CONTRAST CLINICAL HISTORY: Weight loss. Diarrhea. COMPARISON STUDY: Abdominal CT dated 08/16/2022. TECHNIQUE: Following the IV administration of 89 cc of Optiray 320, CT scan of the abdomen and pelvi s is performed from the lung bases to the proximal femora. Images are reviewed in the axial, sagittal , and coronal planes. IV contrast was administered without complication. A dose lowering technique wa s utilized adhering to the principles of ALARA. The examination is degraded by patient cachexia, a pa ucity of intraperitoneal fat,*artifact from metallic spinal hardware. CT DOSE: 990.65 mGy.cm FINDINGS: Lung bases: The heart is enlarged and without pericardial effusion. There are trace pleural effusions with dependent atelectasis. Liver: The contrast-enhanced liver is normal in size, contour, and attenuation. There is no intrahepa tic biliary ductal dilatation. The hepatic veins and portal veins are patent. Periportal edema is not ed. Gallbladder: Unremarkable. Spleen: Normal in size and attenuation. Pancreas: Grossly unremarkable but not well assessed. Adrenal glands: Unremarkable. Kidneys: The contrast enhanced kidneys are normal in size. Moderate to severe right hydronephrosis is similar to previous. The right ureter is normal in caliber, with no obstructing stone or lesion iden tified. There is no left-sided hydronephrosis. The kidneys enhance symmetrically. A 5 mm nonobstructi ng calculus is noted in the left kidney. Abdominal vasculature: The abdominal aorta is normal in course and caliber noting moderate to advance d atherosclerotic calcification. Bowel: There is rectosigmoid fecal retention and moderate constipation. No bowel obstruction is seen. The appendix is well-visualized and normal. There is at least mild colonic diverticulosis without c lear CT evidence of acute diverticulitis. Peritoneum: There is edema throughout the mesentery and a small volume of abdominopelvic ascites. Lymphadenopathy: None. Pelvic viscera: The bladder is distended but otherwise normal in appearance. The uterus and adnexa ar e normal as visualized. Skeletal structures: The skeletal structures are osteopenic. There is moderate to advanced sacral spo ndylosis with evidence of L3-L4 spinal fusion. No lytic or blastic lesions are seen. Soft tissues: The patient is cachectic. There is body wall edema. IMPRESSION: 1. Rectosigmoid fecal retention and moderate constipation. 2. Cardiomegaly and trace pleural effusions. 3. There is evidence of fluid overload with anasarca of the body wall, mesenteric edema, and a small volume of abdominopelvic ascites. 4. Moderate to severe right-sided hydronephrosis is similar to previous. No obstructing stone or lesi on is clearly seen and this likely represents a UPJ type obstruction. 5. Left-sided nephrolithiasis. 6. Additional findings as above. ACT 112: Negative or not required by law. Electronically signed by: Valentin Willard M.D. 10/12/2022 4:15 PM
[2022-10-12] MEDS ORDERED: FUROSEMIDE INJ 20 MG/2 ML VIAL IV ONE (16:50)
[2022-10-12] MEDS ORDERED: cefTRIAXone SODIUM 1,000 MG in DEXTROSE 5% AD-VAN 50 ML IV STA (16:50)
--- NOTE | 2022-10-12 18:06 | Electrocardiogram Report ---
Test Reason : Blood Pressure : / mmHG Vent. Rate : 055 BPM Atrial Rate : 055 BPM P-R Int : 176 ms QRS Dur : 104 ms QT Int : 452 ms P-R-T Axes : 088 087 070 degrees QTc Int : 432 ms Sinus bradycardia with sinus arrhythmia with occasional Premature ventricular complexes Cannot rule out Anterior infarct (cited on or before 20-AUG-2022) Abnormal ECG When compared with ECG of 25-SEP-2022 18:42, Premature ventricular complexes are now Present Confirmed by Phi Cash ([id number]) on 10/12/2022 6:06:45 PM Referred By: REFERRED SELF Confirmed By:Rito Cash
--- NOTE | 2022-10-12 18:51 | Communication Note ---
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 She was known to have a UTI in August of this year and then was treated for norovirus recently during a hospital admission. She states that when she went home she felt well and was taking the cholestyramine powder, however, after two days at home started feeling more run down and worse. Workup in the ER today reveals a TSH 38. Per outpatient record review, she was euthyroid in Mar 2022 and was taking Synthroid 75mcg at that time. Her Synthroid was increased to 88mcg during the most recent admission, and she reports compliance with this since that time and takes it by itself in the morning. She underwent a stool test for her diarrhea which was positive for c-diff. This may be related to recent antibiotics given in the hospital two weeks ago. On exam she is cachectic and in NAD. She is mentating clearly. Lungs are CTAB and there is no increased respiratory effort. CV exam reveals S1/2 heard without murmurs, and she has 2+pitting edema in her lower extremities bilaterally. Abdomen is soft NTND. She reports a sensation deficit in her toes x 1 week, otherwise no sensation changes. She has no gross focal neuromuscular deficits. CBC reveals leukopenia 3.62 down from 7.4 on discharge 09/29. H/H is about the same but down from her baseline 13.2/38.5; today she is 10.8/32. K 3.4, BNP 397, albumin 3.3, folate slightly low at 4.9 and B12 is 522. TSH 38.725 and FT4 is 0.68. UA reflects a possible recent infection with no bacteria present. CT a/p reveals hydronephrosis that is unchanged with no obstructing stone or lesion on the right. No L sided hydronephrosis is seen. Fecal retention is noted. CT head and CXR are unremarkable. 1. Generalized weakness and falls 2. C diff infection 3. Symptomatic hypothyroidism 4. Anemia 5. Severe protein calorie malnutrition 6. Severe right sided hydronephrosis 7. Peripheral neuropathy 72 yo F readmitted for failure to thrive picture. Starting treatment for cdiff which includes Dificid per the GI team who had already ordered this as outpatient. Cont Synthroid at the escalated dose of 88mcg PO daily. Fecal retention, fatigue and even decreased sensation in lower extremities may be attributed to this. Iron panel recently checked during last admission and no evidence of iron deficiency. Anemia may also be contributing to her symptoms somewhat. She is scheduled with Urology as outpatient for cystoscopy to further evaluate the hydronephrosis. Agree with nutrition consultation and PT/OT to evaluate. It appears that multiple consecutive infections may be contributing to her overall malaise and possibly contributing to her thyroid abnormalities. Boris, DO
--- NOTE | 2022-10-12 19:30 | History & Physical Report ---
Date of Service October 12, 2022 Assessment & Plan (1) C. difficile diarrhea: Plan: Admit to [facility] Patient presenting from home with reports of ongoing diarrhea, generalized weakness, frequent falls. Recently admitted to [facility] for multiple issues, 1 of which was norovirus diarrhea. Patient reports ongoing diarrhea since arriving home from the hospital, had outpatient C. difficile testing performed today that was positive. Noted positive C. difficile gene on 09/30 with negative toxin. Outpatient study today shows positive toxin. Will start Dificid CT ABD/pelvis shows fecal retention and moderate constipation, hold Colesytramine powder (2) Generalized weakness: Plan: Ongoing for the past several weeks PT/OT consults, may need placement for rehab (3) Reflux esophagitis: Plan: Continue PPI (4) PSVT (paroxysmal supraventricular tachycardia): Plan: Continue beta-jenn (5) Leg edema: Plan: Patient reports ongoing leg edema for the past several weeks CT ABD/pelvis showing fluid overload with anasarca of the body wall, mesenteric edema, and a small volume of abdominopelvic ascites. Echo 09/26/2022-EF 55 to 60%, right atrium moderately dilated, moderate tricuspid regurgitation, mild pulmonary hypertension Received IV Lasix 20 mg in the ED, given ongoing diarrhea and to prevent dehydration, will hold on additional diuretics at this time (6) Postsurgical hypothyroidism: Plan: TSH has been climbing since July 2022 TFTs today show TSH 38.75, free T4 0.68. Recently had levothyroxine dose increased during previous admission. Continue levothyroxine 88 mcg Also had incidental finding of neck adenopathy on carotid Doppler during previous admission, needs outpatient ultrasound-guided FNA. (7) Folate deficiency: Plan: Folate mildly low 4.91, normal vitamin B12 Will start folate replacement (8) Hydronephrosis, right: Plan: Present since August 2022 Lasix emptying study done by urology as an outpatient which shows severe obstruction. It is recommended by urologist that she could undergo cystoscopy with trial stent placement. Scheduled to follow-up with urology next month. DVT PROPHYLAXIS SQ heparin Patient seen and cooperation with Dr. Escalante. I spent a total of 75 minutes coordinating, documenting, and providing care for this patient excluding time spent in the performance of separately billed ser vices. This included personally reviewing all current laboratories and imaging studies, medication reconciliation, outpatient chart review, and discussion with specialists. History of Present Illness Chief Complaint: Generalized weakness, diarrhea Primary Care Provider: Hayes Maurer DO 72-year-old female with PMH COPD, history of thyroidectomy with postsurgical hypothyroidism, pulmonary hypertension, and other problems listed below who presents to the ED for evaluation of generalized weakness and diarrhea. History obtained from the patient and review of outpatient PCP and recent inpatient records. Per prior H&P: Admitted 08/16 to 08/22/2022 secondary to dizziness, falls, numbness in hands and legs. She was found to have a vitamin B12 deficiency. She received appropriate vitamin B12 supplementation and her intrinsic antibody test was negative. She was seen and evaluated by neurology who recommended [facility] MRIs orthopedic spine reviewed images and felt a most concerning would be her cervical spine which demonstrated advanced cervical spondylosis however no gross cord compression was seen. It was felt that her sensory deficits or nutrition related. Patient also reported weight loss of 115 pounds to 90 pounds in 1 month. She was treated with appropriate antibiotics for E. coli UTI. She was also found to have severe right hydronephrosis and was seen and evaluated by urology who recommended follow-up as an outpatient. In regards to patient's severe right hydronephrosis she did have a Lasix emptying study done by urology as an outpatient which shows severe obstruction. It is recommended by urologist that she could undergo cystoscopy with stent placement if symptoms are persistent. Patient did have lung cancer screening CT in June 2022 which recommended to continue routine screenings and was negative. She also underwent CTA abdomen pelvis in July 2022 which was negative, did reveal malpositioned right kidney with pelvocaliectasis. Admitted 09/25/2022 to 10/01/2022 for generalized weakness, severe protein calorie malnutrition, E. coli UTI, SVT, norovirus diarrhea. Patient underwent brain MRI that was negative for acute stroke. Also had CT chest that was negative for lung mass. Patient was evaluated by GI who recommended outpatient EGD and colonoscopy. For E. coli UTI, patient received 4 days of IV ceftriaxone and 3 days of Keflex. Patient was noted to have intermittent episodes of paroxysmal SVT, due to bradycardia on admission, metoprolol was initially held and then resumed without further recurrences of SVT. For norovirus diarrhea, patient symptoms were relieved with Colesytramine. She also had C. difficile testing that was positive for gene but negative for toxin. Patient was also treated for mild COPD exacerbation. TSH was noted to be elevated at 28 with low normal free T4, levothyroxine was increased to 88 mcg daily. Carotid ultrasound incidentally showed thyroid adenopathy and outpatient ultrasound-guided FNA was recommended. Patient presents today stating that her diarrhea returned within a couple of days of returning home. She reports multiple episodes of watery diarrhea per day. She reports that she feels generally weak and has been falling multiple times per day. Sometimes she crawls around her house. She denies abdominal pain, nausea, vomiting. However states that shortly after eating, she has diarrhea. She denies fevers and chills. No chest pain or shortness of breath. Denies lightheadedness, dizziness, diaphoresis, syncopal events. She was noted to have lower extremity edema which she reports has been ongoing for the past several weeks. She denies urinary symptoms. As an outpatient, patient had C. difficile and stool PCR testing. C. difficile toxin returned positive today. In the ED, patient is hemodynamically stable. CT ABD/pelvis is negative for acute or new findings. Patient was given IV ceftriaxone for possible UTI and IV Lasix. Allergies Allergy/AdvReac Type Severity Reaction Status Date / Time morphine Allergy Unknown shock, Verified 10/12/22 17:47 dspnea neomycin Allergy Unknown Verified 10/12/22 18:56 Home Medications Medication Instructions Recorded Confirmed Type metoprolol succinate 25 mg 12.5 mg PO DAILY #15 tabs 08/22/22 10/12/22 Rx tablet,extended release 24 hr oxybutynin chloride 5 mg 5 mg PO QAM 09/25/22 10/12/22 History tablet,extended release 24 hr cholestyramine-aspartame 4 gram 4 g PO BID@1000,2200 14 days #30 ea 10/01/22 10/12/22 Rx oral powder for susp in a packet (Prevalite) ipratropium 0.5 mg-albuterol 3 mg 3 ml NEB QIDR PRN shortness of 10/01/22 10/12/22 Rx (2.5 mg base)/3 mL nebulization breath or wheezing 30 days #90 mL soln levothyroxine 88 mcg tablet 88 mcg PO DAILYBB 60 days #60 tabs 07/29/23 08/09/23 Rx (Synthroid) pantoprazole 40 mg tablet,delayed 40 mg PO QAM 30 days #30 tabs 10/01/22 3 Rx release famotidine 40 mg tablet 40 mg PO HS PRN Heartburn 10/12/22 10/12/22 History Past Med/Surg History Medical History (Updated 10/12/22 @ 19:32 by FARTUN Butler) COPD (chronic obstructive pulmonary disease) Postsurgical hypothyroidism PSVT (paroxysmal supraventricular tachycardia) Reflux esophagitis Vitamin D deficiency Surgical History Hx of colonoscopy Hx of lumbosacral spine surgery x3 Hx of thyroidectomy Family History Other Breast cancer Social History Smoking Status: Current some day smoker Tobacco Type: Cigarettes Cigarettes Per Day: 1 pack a week; Second Hand Exposure: Yes; Do You Dip or Chew Tobacco: No; Hx Alcohol Use: No Hx Substance Use: No Preferred Language: Azeri Communication Ability: Effective Industrial Maintenance Repairer Required: No Beliefs That Will Affect Care: None Current Living Situation: Spouse Feels Safe at Home: No Assistive Devices: Cane Review of Systems Review of Systems: ROS per HPI, all other systems reviewed and negative Physical Exam Constitutional: WD/WN, vitals as above Eyes: PERRL, conjunctivae normal, anicteric sclerae ENMT: external ear and nose normal, oropharynx normal Respiratory: normal respiratory effort, lungs clear to auscultation Cardiovascular: Rate/Rhythm: regular rate and regular rhythm Vessels: normal peripheral pulses Extremities: + edema (+2-3 pitting edema BLE) Gastrointestinal (Abdomen): normal bowel sounds, soft, nontender, no hepatosplenomegaly Musculoskeletal: no cyanosis or clubbing, extremities motor strength 5/5 Skin: no rashes, warm and dry Neurologic: PERRL, EOMI, accommodation nl, no face palsy, no dysarthria Psychiatric: A+Ox3, euthymic affect Results & Data Results & Data Vital Signs (Past 12 Hours) Vital Signs Temp Pulse Pulse Resp BP BP Pulse Ox 10/12/22 17:00 62 12 131/83 100 10/12/22 15:00 57 L 18 121/71 99 10/12/22 14:32 52 L 10/12/22 13:29 10/12/22 13:29 56 L 20 115/87 98 10/12/22 13:00 36.8 C 58 L 18 115/72 99 O2 Del Method 10/12/22 17:00 Room Air 10/12/22 15:00 Room Air 10/12/22 14:32 10/12/22 13:29 Room Air 10/12/22 13:29 Room Air 10/12/22 13:00 Room Air Laboratory Results Short CBC 10/12/22 Range/Units 13:55 WBC 3.62 L (4.8-10.8) K/ul Hgb 10.8 L (12.0-16.0) g/dl Hct 32.1 L (37.0-47.0) % Plt Count 230 (130-400) K/uL BMP 10/12/22 13:55 Sodium 136 Potassium 3.4 L Chloride 105 Carbon Dioxide 23 BUN 17 Creatinine 0.65 Glucose 90 Calcium 8.1 L Cardiac Enzymes 10/12/22 Range/Units 13:55 Total Creatine Kinase 126 (26-192) U/L Liver Function 10/12/22 Range/Units 13:55 Total Bilirubin 1.0 (0.2-1.0) mg/dl AST 16 (13-39) U/L ALT 15 (7-52) U/L Alkaline Phosphatase 69 (34-104) U/L Albumin 3.3 L (3.4-5.0) gm/dl Urine 10/12/22 Range/Units 14:13 Urine Color Yellow Urine Appearance Clear (Clear) Urine pH 5.0 (4.5-7.5) Ur Specific [place] 1.014 (1.000-1.030) Urine Protein Negative (Negative) Urine Glucose (UA) Negative (Negative) Diagnostic Findings Chest X-Ray 10/12/22 13:29 SINGLE VIEW CHEST CLINICAL HISTORY: Generalized weakness. FINDINGS: An AP, portable, upright chest radiograph is compared to study dated 09/25/2022. The heart is enlarged noting atherosclerotic calcification of the thoracic aorta. The pulmonary vasculature is noncongested. Mild emphysema and chronic interstitial thickening is similar to previous. There is bibasilar scarring/atelectasis. A nipple shadow projects over the left lung base. No airspace consolidation or large pleural effusion is identified. No pneumothorax is seen. The skeletal structures are osteopenic. The bony thorax is grossly intact. IMPRESSION: No acute cardiopulmonary abnormality. ACT 112: Negative or not required by law. Electronically signed by: Valentin Willard M.D. 10/12/2022 2:[address] 10/12/22 13:29 CT SCAN OF THE BRAIN WITHOUT IV CONTRAST CLINICAL HISTORY: Generalized weakness. Falls. COMPARISON STUDY: CT of the brain dated 08/16/2022. TECHNIQUE: Unenhanced axial CT scan of the brain is performed from the vertex to the skull base. A dose lowering technique was utilized adhering to the principles of ALARA. FINDINGS: Brain parenchyma: There is age-related involutional change noting mild subcortical and periventricular microangiopathic disease. There is no hemorrhage, mass effect, or evidence of acute territorial ischemia by CT criteria. Cantu-white matter differentiation is preserved. No extra-axial fluid collection is seen. Ventricles, sulci, cisterns: Prominent secondary to involutional change. Intracranial vasculature: There is atherosclerotic calcification of the cavernous carotid arteries. Calvarium: Unremarkable. Sinuses and mastoids: The visualized paranasal sinuses are clear. There is a small left mastoid effusion. The right mastoid air cells are well pneumatized. Orbits: The bony orbits are grossly intact. IMPRESSION: There is no hemorrhage, mass effect, or evidence of acute territorial ischemia by CT criteria. ACT 112: Negative or not required by law. Electronically signed by: Valentin Willard M.D. 10/12/2022 3:52 PM Abdomen/Pelvis CT 10/12/22 13:31 CT SCAN OF THE ABDOMEN AND PELVIS WITH IV CONTRAST CLINICAL HISTORY: Weight loss. Diarrhea. COMPARISON STUDY: Abdominal CT dated 08/16/2022. TECHNIQUE: Following the IV administration of 89 cc of Optiray 320, CT scan of the abdomen and pelvis is performed from the lung bases to the proximal femora. Images are reviewed in the axial, sagittal, and coronal planes. IV contrast was administered without complication. A dose lowering technique was utilized adhering to the principles of ALARA. The examination is degraded by patient cachexia, a paucity of intraperitoneal fat,*artifact from metallic spinal hardware. CT DOSE: 990.65 mGy.cm FINDINGS: Lung bases: The heart is enlarged and without pericardial effusion. There are trace pleural effusions with dependent atelectasis. Liver: The contrast-enhanced liver is normal in size, contour, and attenuation. There is no intrahepatic biliary ductal dilatation. The hepatic veins and portal veins are patent. Periportal edema is noted. Gallbladder: Unremarkable. Spleen: Normal in size and attenuation. Pancreas: Grossly unremarkable but not well assessed. Adrenal glands: Unremarkable. Kidneys: The contrast enhanced kidneys are normal in size. Moderate to severe right hydronephrosis is similar to previous. The right ureter is normal in caliber, with no obstructing stone or lesion identified. There is no left-sided hydronephrosis. The kidneys enhance symmetrically. A 5 mm nonobstructing calculus is noted in the left kidney. Abdominal vasculature: The abdominal aorta is normal in course and caliber noting moderate to advanced atherosclerotic calcification. Bowel: There is rectosigmoid fecal retention and moderate constipation. No bowel obstruction is seen. The appendix is well-visualized and normal. There is at least mild colonic diverticulosis without clear CT evidence of acute diverticulitis. Peritoneum: There is edema throughout the mesentery and a small volume of abdominopelvic ascites. Lymphadenopathy: None. Pelvic viscera: The bladder is distended but otherwise normal in appearance. The uterus and adnexa are normal as visualized. Skeletal structures: The skeletal structures are osteopenic. There is moderate to advanced sacral spondylosis with evidence of L3-L4 spinal fusion. No lytic or blastic lesions are seen. Soft tissues: The patient is cachectic. There is body wall edema. IMPRESSION: 1. Rectosigmoid fecal retention and moderate constipation. 2. Cardiomegaly and trace pleural effusions. 3. There is evidence of fluid overload with anasarca of the body wall, mesenteric edema, and a small volume of abdominopelvic ascites. 4. Moderate to severe right-sided hydronephrosis is similar to previous. No obstructing stone or lesion is clearly seen and this likely represents a UPJ type obstruction. 5. Left-sided nephrolithiasis. 6. Additional findings as above. ACT 112: Negative or not required by law. Electronically signed by: Valentin Willard M.D. 10/12/2022 4:15 PM Code Status & VTE Plan VTE Prophylaxis Plan VTE Prophylaxis will be ordered: Yes Supervising Physician Co-Signing Physician Notes I have seen and examined the patient and have discussed the case with the provider above. I agree with the assessment and plan as stated with the following exceptions. 72 yo F with acquired hypothyroidism s/p thyroidectomy from goiter as a child presents with general malaise, fatigue, weakness and persistent diarrhea. She was known to have a UTI in August of this year and then was treated for norovirus recently during a hospital admission. She states that when she went home she felt well and was taking the cholestyramine powder, however, after two days at home started feeling more run down and worse. Workup in the ER today reveals a TSH 38. Per outpatient record review, she was euthyroid in Mar 2022 and was taking Synthroid 75mcg at that time. Her Synthroid was increased to 88mcg during the most recent admission, and she reports compliance with this since that time and takes it by itself in the morning. She underwent a stool test for her diarrhea which was positive for c-diff. This may be related to recent antibiotics given in the hospital two weeks ago. On exam she is cachectic and in NAD. She is mentating clearly. Lungs are CTAB and there is no increased respiratory effort. CV exam reveals S1/2 heard without murmurs, and she has 2+pitting edema in her lower extremities bilaterally. Abdomen is soft NTND. She reports a sensation deficit in her toes x 1 week, otherwise no sensation devonte nges. She has no gross focal neuromuscular deficits. CBC reveals leukopenia 3.62 down from 7.4 on discharge 09/29. H/H is about the same but down from her baseline 13.2/38.5; today she is 10.8/32. K 3.4, BNP 397, albumin 3.3, folate slightly low at 4.9 and B12 is 522. TSH 38.725 and FT4 is 0.68. UA reflects a possible recent infection with no bacteria present. CT a/p reveals hydronephrosis that is unchanged with no obstructing stone or lesion on the right. No L sided hydronephrosis is seen. Fecal retention is noted. CT head and CXR are unremarkable. 1. Generalized weakness and falls 2. C diff infection 3. Symptomatic hypothyroidism 4. Anemia 5. 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 6. Severe right sided hydronephrosis 7. Peripheral neuropathy 72 yo F readmitted for failure to thrive picture. Symptom have been ongoing for several months now. Worsening thyroid function despite medication compliance and continued GI symptoms suggests malabsorption. Strongly considering protein- losing gastroenteropathy as a cause of her symptoms here given the elevated TSH, the edema, weight loss etc. Differential includes but not limited to IBD, GI malignancy like lymphoma, parasitic infection, SIBO, whipples disease, collagenous colitis, etc. Celiac screening was negative last admission. She clearly has had viral illnesses with the norovirus and now a c diff infection which is contributing here, but this wasn't present at the beginning when she started noting symptoms in Apr of this year. She also notes that "oral pills don't help as much as the IV does" suggesting she may be noting some sort of lack of efficacy possibly from malabsorption herself. She has a normal albumin which seems too high given her degree of weight loss. Agree with Temo per GI team who had already ordered this as outpatient. Cont Synthroid but will start this intravenously at 50mcg daily given her symptomatic hypothyroidism. Fecal retention, fatigue and even decreased sensation in lower extremities may be attributed to this hypothyroidism. Iron panel recently checked during last admission and no evidence of iron deficiency. Anemia may also be contributing to her symptoms somewhat. With no benjamín bleeding, this is another indication for an upper and lower scope to rule out GI malignancy. She is also scheduled with Urology as outpatient for cystoscopy to further evaluate the severe R hydronephrosis. Agree with nutrition consultation and PT/OT to evaluate. DO Boris
[2022-10-12] MEDS ORDERED: ACETAMINOPHEN 325 MG TAB PO PRN (22:27)
[2022-10-12] MEDS ORDERED: FAMOTIDINE 20 MG in SYRINGE 3 ML IV PRN (22:27)
[2022-10-12] MEDS: FIDAXOMICIN 200 MG TAB PO SCH (23:36)
[2022-10-12] MEDS: HEPARIN SOD 5,000 UNIT/0.5 ML VIAL SQ SCH (23:36)
[2022-10-13] MEDS: HEPARIN SOD 5,000 UNIT/0.5 ML VIAL SQ SCH ×3 (06:07→21:19)
[2022-10-13 06:43] LABS: Hematocrit (blood only) 31.2 % (37.0-47.0); Hemoglobin 10.4 g/dl (12.0-16.0); Mean Corpuscular Hgb Conc 33.3 g/dL (32.0-36.0); Mean Corpuscular Volume 93.1 fL (80.0-100.0); Mean Platelet Volume 9.5 fL (9.4-12.4); Platelet Count 214 K/uL (130-400); RDW Coefficient of Variation 15.4 % (11.5-14.5); RDW Standard Deviation 52.9 fL (36.4-46.3); Red Blood Count 3.35 M/uL (4.20-5.40); White Blood Count 3.46 K/ul (4.8-10.8)
[2022-10-13 06:44] LABS: BUN Creatinine Ratio 22.4 (10-20); Calcium 7.8 mg/dl (8.6-10.3); Creatinine Clr Calc Pharmacy 52.2 ml/min; Est GFR (African American) 101.8 ml/min; Est GFR (Non-African American) 87.8 ml/min; Potassium 3.1 mmol/L (3.5-5.1)
[2022-10-13] MEDS: FIDAXOMICIN 200 MG TAB PO SCH ×2 (08:12→21:19)
[2022-10-13] MEDS: LEVOTHYROXINE SODIUM 50 MCG in SYRINGE 0 ML IV SCH (08:12)
[2022-10-13] MEDS: OXYBUTYNIN CHLORIDE XL 5 MG TABCR PO SCH (08:12)
[2022-10-13] MEDS: PANTOprazole 40 MG TAB PO SCH (08:12)
[2022-10-13] MEDS ORDERED: FOLIC ACID 1 MG TAB PO SCH (09:00)
--- NOTE | 2022-10-13 09:10 | Hospitalist Progress Note ---
Date of Service October 13, 2022 Assessment & Plan (1) Generalized weakness: Plan: Ongoing for the past several weeks PT/OT consults, may need placement for rehab (2) C. difficile diarrhea: Plan: Patient presenting from home with reports of ongoing diarrhea, generalized weakness, frequent falls. Recently admitted to [facility] for multiple issues, 1 of which was norovirus diarrhea. Norovirus returned positive on stool studies today again. She also completed a 7 day course of antibiotics recently. Patient reports ongoing diarrhea since arriving home from the hospital, had outpatient C. difficile testing performed that was positive. Noted positive C. difficile gene on 09/30 with negative toxin. Outpatient study today shows positive toxin. Will start Dificid per GI recommendations. CT ABD/pelvis shows fecal retention and moderate constipation, hold Cholestyramine powder (3) Norovirus: Plan: Recurrent positive stool studies with ongoing symptoms. Consult infectious disease for recs. Cont supportive care. (4) Weight loss: Plan: possibly related to malabsorption vs malignancy? she is eating heartily. Consider protein losing enteropathy. Apprec GI reccommendations. In setting of active infection will prefer to defer endoscopies which are scheduled for Nov. (5) Leg edema: Plan: worsening peripheral edema and anasarca on CT abd/pel. Likely related to malabsorption in conjunction with acute GI illnesses. Hypothyroidism may also bee contributing. Echo 09/26/2022-EF 55 to 60%, right atrium moderately dilated, moderate tricuspid regurgitation, mild pulmonary hypertension Received IV Lasix 20 mg in the ED, given ongoing diarrhea and to prevent dehydration, will hold on additional diuretics at this time SCDs placed now. Cont plan as outlined above. (6) Reflux esophagitis: Plan: chronic, stable. Continue PPI (7) PSVT (paroxysmal supraventricular tachycardia): Plan: chronic, stable. Continue beta-jenn (8) Postsurgical hypothyroidism: Plan: TSH has been climbing since July 2022 TFTs today show TSH 38.75, free T4 0.68. Recently had levothyroxine dose increased during previous admission. Continue levothyroxine 88 mcg Also had incidental finding of neck adenopathy on carotid Doppler during previous admission, needs outpatient ultrasound-guided FNA. Cont with Synthroid IV as there is concern for malabssorption (9) Folate deficiency: Plan: Folate mildly low 4.91, normal vitamin B12 Cont folate and B12 replacement (10) Hydronephrosis, right: Plan: Present since August 2022 Lasix emptying study done by urology as an outpatient which shows severe obstruction. It is recommended by urologist that she could undergo cystoscopy with trial stent placement. Scheduled to follow-up with urology next month. DVT PROPHYLAXIS SQ heparin Full Code Dipso-uncertain at this time. I spent a total [id number] coordinating, documenting, and providing care for this patient excluding time spent in the performance of separately billed services Monica Escalante DO [facility]ist Admission and Anticipated Discharge Date Admission Date: October 12, 2022 Subjective 72 yo F with diarrrhea and malaise, positive cdiff infection she is eating today and afebrile 1 episode of diarrhea at all today denies abdominal pain borderline BP norovirus positive again. Review of Systems Review of Systems: All systems were reviewed and negative except as indicated on HPI above. Physical Exam Physical Exam: CONSTITUTIONAL: thin, vitals as above, generally well-appearing, NAD EYES: normal conjunctivae, no scleral icterus, ENT: external ear and nose normal, MMM NECK: trachea midline RESPIRATORY: clear to auscultation bilaterally, no crackles, rales or wheezes, normal respiratory effort CARDIOVASCULAR: regular rate and rhythm, S1 and 2 heard without murmurs, gallops or rubs, no JVD, 2+ peripheral edema bilaterally CHEST: inspection of chest was normal GASTROINTESTINAL: soft, nontender, ND, no guarding MUSCULOSKELETAL: strength 5/5 throughout, head is normocephalic and atraumatic SKIN: warm and dry NEUROLOGIC: CN 2-12 grossly intact, no sensory deficit, normal cognition, normal speech, no tremor PSYCHIATRIC: alert cooperative and oriented to person, place and time. Euthymic mood, makes good eye contact, language grossly intact, recent and remote memory grossly intact. Results & Data Results & Data Vital Signs (Past 12 Hours) Vital Signs Temp Pulse Pulse Resp BP BP Pulse Ox 10/13/22 07:35 36.4 C L 54 L 16 94/61 L 99 10/13/22 00:18 10/12/22 22:37 36.3 C L 54 L 16 95/63 L 100 10/12/22 22:00 48 L 16 96/62 L 100 10/12/22 21:54 53 L 17 99/65 L 100 10/12/22 21:58 48 L 08/09/23 21:30 54 L 17 83/55 L 100 O2 Del Method 10/13/22 07:35 Room Air 10/13/22 00:18 Room Air 10/12/22 22:37 Room Air 10/12/22 22:00 Room Air 10/12/22 21:54 Room Air 10/12/22 21:58 10/12/22 21:30 Room Air Laboratory Results Short CBC 10/12/22 10/13/22 Range/Units 13:55 06:03 WBC 3.62 L 3.46 L (4.8-10.8) K/ul Hgb 10.8 L 10.4 L (12.0-16.0) g/dl Hct 32.1 L 31.2 L (37.0-47.0) % Plt Count 230 214 (130-400) K/uL BMP 10/12/22 10/13/22 13:55 06:03 Sodium 136 137 Potassium 3.4 L 3.1 L Chloride 105 105 Carbon Dioxide 23 26 BUN 17 15 Creatinine 0.65 0.67 Glucose 90 104 H Calcium 8.1 L 7.8 L Cardiac Enzymes 10/12/22 Range/Units 13:55 Total Creatine Kinase 126 (26-192) U/L Liver Function 10/12/22 Range/Units 13:55 Total Bilirubin 1.0 (0.2-1.0) mg/dl AST 16 (13-39) U/L ALT 15 (7-52) U/L Alkaline Phosphatase 69 (34-104) U/L Albumin 3.3 L (3.4-5.0) gm/dl Urine 10/12/22 Range/Units 14:13 Urine Color Yellow Urine Appearance Clear (Clear) Urine pH 5.0 (4.5-7.5) Ur Specific [place] 1.014 (1.000-1.030) Urine Protein Negative (Negative) Urine Glucose (UA) Negative (Negative) Medications Administered Current Inpatient Medications Acetaminophen (Acetaminophen 325 Mg Tab) 650 mg PO Q4H PRN PRN Reason: pain/fever Stop: 11/11/22 22:26 Cyanocobalamin (Cyanocobalamin 1000 Mcg/Ml Vial) 1,000 mcg IM QAM [facility] Stop: 10/18/22 09:01 Fidaxomicin (Fidaxomicin 200 Mg Tab) 200 mg PO BID [facility] Stop: 10/22/22 22:26 Last Admin: 10/13/22 21:19 Dose: 200 mg Heparin Sodium (Porcine) (Heparin Sod 5,000 Unit/0.5 Ml Vial) 5,000 units SQ Q8 [facility] Stop: 11/11/22 22:26 Last Admin: 10/13/22 21:19 Dose: 5,000 units Levothyroxine Sodium 50 mcg/ (Syringe) 2.5 mls @ 2 mls/min IV DAILY@0900 [facility]; Protocol Stop: 11/12/22 08:59 Last Admin: 10/13/22 08:12 Dose: 2 mls/min Folic Acid 1 mg/ Syringe 10 mls @ 5 mls[facility] [place] Stop: 11/13/22 08:59 Famotidine 20 mg/ Syringe 5 mls @ 2.5 mls/min IV Q12H PRN PRN Reason: heartburn Stop: 11/12/22 15:44 Sodium Chloride (Nss 1000ml) 1,000 mls @ 125 mls/hr IV .Q8H [facility] Stop: 10/14/22 08:14 Last Admin: 10/13/22 17:14 Dose: 125 mls/hr Oxybutynin Chloride (Oxybutynin Chloride Xl 5 Mg Tabcr) 5 mg PO [facility] Stop: 11/12/22 08:59 Last Admin: 10/13/22 08:12 Dose: 5 mg Pantoprazole Sodium (Pantoprazole 40 Mg Tab) 40 mg PO [facility] Stop: 11/12/22 08:59 Last Admin: 10/13/22 08:12 Dose: 40 mg Petrolatum (Butt Paste (Zinc Oxide 16%) 171 Appln/57 Gm Jar) 1 appln EXT UD PRN PRN Reason: AFTER EACH BM Stop: 11/12/22 15:44
[2022-10-13] MEDS ORDERED: POTASSIUM CHLORIDE 40 MEQ in SODIUM CHLORIDE 0.9% 1000ML 1,000 ML IV SCH (09:15)
--- NOTE | 2022-10-13 09:22 | Gastrointestinal Consultation ---
Date of Consultation October 13, 2022 Assessment & Plan (1) Weight loss: 72 year old female with history of COPD, s/p thyroidectomy w/ postsurgical hypothyroidism, pulmonary hypertension, admitted for evaluation of generalized weakness, ongoing neurological symptoms, weight loss and diarrhea. - Weight loss - EGD 2022 reviewed - CT 2022 reviewed - OP CTA reviewed - Recommend colonoscopy - Scheduled 01/17/23 - Last colonoscopy 2018 after a positive Cologuard - Diarrhea - There is plan for an OP colonoscopy for biopsies - C.diff gene positive but toxin negative on [place] lab - OP C.diff positive, however, does not quantify toxin vs gene - Repeat C.diff testing - Stool culture is pending - Imaging shows constipation - Repeat KUB tomorrow for evaluation of stool burden - If C.diff is positive would treat with PO ABX - To better evaluate for a protein-losing gastroenteropathy, alpha 1-an titrypsin clearance test would be required to measure a 24-hour stool specimen and serum sample for simultaneous measurement of alpha 1 - Would continue a low fat, high-protein diet as tolerated We appreciate assistance in the management of any serological abnormality and corrections to include: hemoglobin >7, INR <2, platelets >50,000, potassium levels >3.5 but <5.3, and sodium levels within 5 points of the reference range. Thank you for allowing us to participate in the care of this patient. Please call with any acute changes, questions or concerns. Please see addendum below with additional recommendation from my supervising physician. Supervising Physician Co-Signing Physician Notes Attending attestation I have seen, examined this patient, and agree with the findings and above by our mid-level provider FARTUN Villarreal, with the following additions: Has ? c-diff vs colonization, likely real disease, but given recent abx and current, would continue with c-diff treatment wtih vanco or dificid for 7-10 days longer than systemic abx Now noroviurs positive again Supporitve care and diet Check prealbumin, cortisol stim test, and free t3. TSH is increasing so ? adherence, endo opinion would be helpful Consider CVID, stool studies for protein loosing enteropathy Repeat EGD/Colon on this adm or as outpt if well enough to go home History of Present Illness Reason for Consultation: wt loss 2/2 protein losing enteropathy? +cdiff Requesting Physician: [place] Attending Physician: Monica Escalante, DO History of Present Illness 72 year old female with history of COPD, s/p thyroidectomy w/ postsurgical hypothyroidism, pulmonary hypertension, and other problems listed below who presents to the ED for evaluation of generalized weakness and diarrhea. Pt was seen and evaluated, chart reviewed. She has a recent history of admission secondary to dizziness, falls, numbness in hands and legs and was diagnosed with a B12 deficiency.Was referred to neurology and imaging concerning for advanced cervical spondylosis but no gross cord compression. At that time, it was suggested that any sensory deficits were nutrition related. She notes chronic, unchanged GI symptoms. She reports alternating diarrhea/constipation with loose stools 2-3 times daily or rare intermittent formed stools. She denies any black or bloody stools. She reports a great appetite, eating 3 full meals daily but despite this has ongoing weight loss of about 30 lbs. She denies nausea or vomiting but does have some bloating. B12 522 Folae 4.9 TSH 38 TTG IGA <1 C.diff at [facility] 10/12/22: positive C.diff at [facility] 09/30/22: positive gene but negative toxin CTAP 10/2022: Rectosigmoid fecal retention and moderate constipation.Cardiomegaly and trace pleural effusions. There is evidence of fluid overload with anasarca of the body wall, mesenteric edema, and a small volume of abdominopelvic ascites. Moderate to severe right- sided hydronephrosis is similar to previous. No obstructing stone or lesion is clearly seen and this likely represents a UPJ type obstruction.. Left-sided nephrolithiasis.Additional findings as above. CTA 08/16/22: Severe hydronephrosis of the right kidney, which is located in the pelvis. No vascular abnormality to explain the patient's symptoms. CTAP 08/2022: Mild periportal edema. Correlate for overhydration (the IVC is distended) versus hepatitis. Severe right-sided hydronephrosis. No definite obstruction of the ureter. Consider CT urogram protocol for further evaluation, if clinically indicated.. Wall thickening of small bowel in the pelvis, correlate for enteritis. Diverticulosis, without acute diverticulitis. No small bowel obstruction. No free air. CTAP 07/2022:Malpositioned right kidney with pelvocaliectasis. Hydronephrosis is considered less likely. No acute abnormalities. EGD 2022: Sam Grade III reflux esophagitis. - Erythematous mucosa in the stomach. Biopsied. - Normal examined duodenum. Colonoscopy 2018: Non-thrombosed external hemorrhoids found on digital rectal exam. - The examined portion of the ileum was normal. - Moderate diverticulosis in the entire examined colon. - Internal hemorrhoids. - The examination was otherwise normal. - No specimens collected. Cologuard 2018: positive Colonoscopy 2007: Five 2 to 3 mm polyps in the distal sigmoid colon. Resected and retrieved. - No endoscopic evidence for IBD, biopsied - Moderate left sided diverticulosis EGD 2007: Mild duodenitis. - Bilious gastric fluid. Suspiscious for gastroparesis. 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 Biopsied for H Pylori. - Small hiatus hernia. - Normal esophagus. Family history of GI malignancy: mom with colon cancer in her 80's Allergies Allergy/AdvReac Type Severity Reaction Status Date / Time morphine Allergy Unknown shock, Verified 10/12/22 17:47 dspnea neomycin Allergy Unknown Verified 10/12/22 18:56 Home Medications Medication Instructions Recorded Confirmed Type metoprolol succinate 25 mg 12.5 mg PO DAILY #15 tabs 08/22/22 10/12/22 Rx tablet,extended release 24 hr oxybutynin chloride 5 mg 5 mg PO QAM 09/25/22 10/12/22 History tablet,extended release 24 hr cholestyramine-aspartame 4 gram 4 g PO BID@1000,2200 14 days #30 ea 10/01/22 10/12/22 Rx oral powder for susp in a packet (Prevalite) ipratropium 0.5 mg-albuterol 3 mg 3 ml NEB QIDR PRN shortness of 10/01/22 08/0 11/26 Rx (2.5 mg base)/3 mL nebulization breath or wheezing 30 days #90 mL soln levothyroxine 88 mcg tablet 88 mcg PO DAILYBB 60 days #60 tabs 10/01/22 10/12/22 Rx (Synthroid) pantoprazole 40 mg tablet,delayed 40 mg PO QAM 30 days #30 tabs 10/01/22 10/12/22 Rx release famotidine 40 mg tablet 40 mg PO HS PRN Heartburn 10/12/22 10/12/22 History Patient History Medical History (Updated 10/12/22 @ 19:32 by FARTUN Butler) COPD (chronic obstructive pulmonary disease) Postsurgical hypothyroidism PSVT (paroxysmal supraventricular tachycardia) Reflux esophagitis Vitamin D deficiency Surgical History Hx of colonoscopy Hx of lumbosacral spine surgery x3 Hx of thyroidectomy Family History Other Breast cancer Social History Smoking Status: Former smoker Tobacco Type: Cigarettes Cigarettes Per Day: 1 pack a week; Second Hand Exposure: Yes; Do You Dip or Chew Tobacco: No; Hx Alcohol Use: No Hx Substance Use: No Preferred Language: Tajik Communication Ability: Effective 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 Beliefs That Will Affect Care: None Current Living Situation: Spouse Other Information That Helps Us Care for You: No Feels Safe at Home: Yes Safety Concerns: Feels Safe At This Time Assistive Devices: Cane and Glasses Review of Systems Review of Systems: All systems reviewed & are unremarkable except as noted in HPI & below Physical Exam Constitutional: WD/WN, vitals as above Neck: trachea midline Respiratory: normal respiratory effort, lungs clear to auscultation Cardiovascular: Rate/Rhythm: regular rate and regular rhythm Extremities: + edema (+bilateral lower extremities) Gastrointestinal (Abdomen): normal bowel sounds, soft, nontender, no hepatosplenomegaly Skin: no rashes, warm and dry Neurologic: + numbness/tingling reported in bilateral hands and feet Results & Data Vital Signs (Past 12 Hours) Vital Signs Temp Pulse Pulse Resp BP BP Pulse Ox 10/13/22 07:35 36.4 C L 54 L 16 94/61 L 99 10/13/22 00:18 10/12/22 22:37 36.3 C L 54 L 16 95/63 L 100 10/12/22 22:00 48 L 16 96/62 L 100 10/12/22 21:54 53 L 17 99/65 L 100 10/12/22 21:58 48 L 10/12/22 21:30 54 L 17 83/55 L 100 O2 Del Method 10/13/22 07:35 Room Air 10/13/22 00:18 Room Air 10/12/22 22:37 Room Air 10/12/22 22:00 Room Air 10/12/22 21:54 Room Air 10/12/22 21:58 10/12/22 21:30 Room Air Laboratory Results 10/13/22 10/13/22 10/13/22 Range/Units 09:11 06:03 06:03 WBC 3.46 L (4.8-10.8) K/ul RBC 3.35 L (4.20-5.40) M/uL Hgb 10.4 L (12.0-16.0) g/dl Hct 31.2 L (37.0-47.0) % MCV 93.1 (80.0-100.0) fL MCH 31.0 (25.0-34.0) pg MCHC 33.3 (32.0-36.0) g/dL RDW Std Deviation 52.9 H (36.4-46.3) fL RDW Coeff of Minal 15.4 H (11.5-14.5) % Plt Count 214 (130-400) K/uL MPV 9.5 (9.4-12.4) fL Immature Gran % (Auto) % Neut % (Auto) % Lymph % (Auto) % [place] % (Auto) % Eos % (Auto) % Baso % (Auto) % Neut # (Auto) (1.40-6.50) K/uL Lymph # (Auto) (1.2-3.4) K/uL [place] # (Auto) (0.11-0.59) K/uL Eos # (Auto) (0-0.50) K/uL Baso # (Auto) (0-0.2) K/uL Immature Gran # (Auto) (0.01-0.20) K/uL PT (9.0-12.0) Seconds INR (0.9-1.1) Sodium 137 (136-145) mmol/L Potassium 3.1 L (3.5-5.1) mmol/L Chloride 105 (98-107) mmol/L Carbon Dioxide 26 (21-32) mmol/L Anion Gap 6 (3-11) BUN 15 (6-23) mg/dl Creatinine 0.67 (0.6-1.2) mg/dl Est Cr Clr Drug Dosing 52.2 ml/min Est GFR ( Amer) 101.8 ml/min Est GFR (Non-Af Amer) 87.8 ml/min BUN/Creatinine Ratio 22.4 H (10-20) Glucose 104 H (70-99(Fasting)) mg/dl Lactate (0.4-2.0) mmol/L Calcium 7.8 L (8.6-10.3) mg/dl Magnesium (1.7-2.4) mg/dl Total Bilirubin (0.2-1.0) mg/dl AST (13-39) U/L ALT (7-52) U/L Alkaline Phosphatase (34-104) U/L Total Creatine Kinase (26-192) U/L Troponin I High Sens (0-14) pg/ml B-Natriuretic Peptide (0-100) pg/ml Total Protein (6.0-8.3) gm/dl Albumin (3.4-5.0) gm/dl Globulin (2.5-4.0) gm/dl Albumin/Globulin Ratio (0.9-2) Lipase (11-82) U/L Vitamin B12 (180-914) pg/ml Folate (>5.38) ng/ml Procalcitonin (0-0.5) ng/ml TSH (0.300-4.500) uIu/ml Free T4 (0.61-1.60) ng/dl Urine Color Urine Appearance (Clear) Urine pH (4.5-7.5) Ur Specific [place] (1.000-1.030) Urine Protein (Negative) Urine Glucose (UA) (Negative) Urine Ketones (Negative) Urine Blood (Negative) Urine Nitrite (Negative) Urine Bilirubin (Negative) Urine Urobilinogen (Negative) Ur Leukocyte Esterase (Negative) Urine WBC (Auto) (0-5) /hpf Urine RBC (Auto) (0-4) /hpf U Hyaline Cast (Auto) (0-5) /lpf U Epithel Cells (Auto) (0-5) /lpf Urine Bacteria (Auto) (Negative) Stl C. cayetanensis PCR Pending Stool Rotavirus A PCR Pending Stl Adenov F 40/41 PCR Pending Stool Astrovirus (PCR) Pending Stool Campylobacter PCR Pending Stool Cryptosporidium PCR Pending Stl E.coli Shiga Tox PCR Pending Stl Enterotoxigenic E PCR Pending Stool EAEC (PCR) Pending Stl E. histolytica PCR Pending Stool Giardia Lamblia PCR Pending Stool Salmonella PCR Pending Stool Sapovirus (PCR) Pending Stl P. shigelloides PCR Pending Stl Shigella/EIEC PCR Pending St Y.enterocolitica PCR Pending Stool Vibrio (PCR) Pending Stl Vibrio cholerae PCR Pending Stl Norovirus GI/GII PCR Pending Anaplasma Smear Babesia Smear Babesia microti DNA PCR Lyme Disease IgG Ab (Negative) Lyme Disease IgM Ab (Negative) SARS-CoV-2, RNA, NAAT (NEGATIVE) 10/12/22 10/12/22 10/12/22 Range/Units 14:13 14:13 13:55 WBC (4.8-10.8) K/ul RBC (4.20-5.40) M/uL Hgb (12.0-16.0) g/dl Hct (37.0-47.0) % MCV (80.0-100.0) fL MCH (25.0-34.0) pg MCHC (32.0-36.0) g/dL RDW Std Deviation (36.4-46.3) fL RDW Coeff of Minal (11.5-14.5) % Plt Count (130-400) K/uL MPV (9.4-12.4) fL Immature Gran % (Auto) % Neut % (Auto) % Lymph % (Auto) % [place] % (Auto) % Eos % (Auto) % Baso % (Auto) % Neut # (Auto) (1.40-6.50) K/uL Lymph # (Auto) (1.2-3.4) K/uL [place] # (Auto) (0.11-0.59) K/uL Eos # (Auto) (0-0.50) K/uL Baso # (Auto) (0-0.2) K/uL Immature Gran # (Auto) (0.01-0.20) K/uL PT (9.0-12.0) Seconds INR (0.9-1.1) Sodium (136-145) mmol/L Potassium (3.5-5.1) mmol/L Chloride (98-107) mmol/L Carbon Dioxide (21-32) mmol/L Anion Gap (3-11) BUN (6-23) mg/dl Creatinine (0.6-1.2) mg/dl Est Cr Clr Drug Dosing ml/min Est GFR ( Amer) ml/min Est GFR (Non-Af Amer) ml/min BUN/Creatinine Ratio (10-20) Glucose (70-99(Fasting)) mg/dl Lactate (0.4-2.0) mmol/L Calcium (8.6-10.3) mg/dl Magnesium (1.7-2.4) mg/dl Total Bilirubin (0.2-1.0) mg/dl AST (13-39) U/L ALT (7-52) U/L Alkaline Phosphatase (34-104) U/L Total Creatine Kinase (26-192) U/L Troponin I High Sens (0-14) pg/ml B-Natriuretic Peptide (0-100) pg/ml Total Protein (6.0-8.3) gm/dl Albumin (3.4-5.0) gm/dl Globulin (2.5-4.0) gm/dl Albumin/Globulin Ratio (0.9-2) Lipase (11-82) U/L Vitamin B12 522 (180-914) pg/ml Folate 4.91 L (>5.38) ng/ml Procalcitonin (0-0.5) ng/ml TSH (0.300-4.500) uIu/ml Free T4 (0.61-1.60) ng/dl Urine Color Yellow Urine Appearance Clear (Clear) Urine pH 5.0 (4.5-7.5) Ur Specific [place] 1.014 (1.000-1.030) Urine Protein Negative (Negative) Urine Glucose (UA) Negative (Negative) Urine Ketones Negative (Negative) Urine Blood Negative (Negative) Urine Nitrite Positive A (Negative) Urine Bilirubin Negative (Negative) Urine Urobilinogen Negative (Negative) Ur Leukocyte Esterase Trace H (Negative) Urine WBC (Auto) 5-10 H (0-5) /hpf Urine RBC (Auto) 0-4 (0-4) /hpf U Hyaline Cast (Auto) 1-5 (0-5) /lpf U Epithel Cells (Auto) 10-20 H (0-5) /lpf Urine Bacteria (Auto) Negative (Negative) Stl C. cayetanensis PCR Stool Rotavirus A PCR Stl Adenov F 40/41 PCR Stool Astrovirus (PCR) Stool Campylobacter PCR Stool Cryptosporidium PCR Stl E.coli Shiga Tox PCR Stl Enterotoxigenic E PCR Stool EAEC (PCR) Stl E. histolytica PCR Stool Giardia Lamblia PCR Stool Salmonella PCR Stool Sapovirus (PCR) Stl P. shigelloides PCR Stl Shigella/EIEC PCR St Y.enterocolitica PCR Stool Vibrio (PCR) Stl Vibrio cholerae PCR Stl Norovirus GI/GII PCR Anaplasma Smear Babesia Smear Babesia microti DNA PCR Lyme Disease IgG Ab (Negative) Lyme Disease IgM Ab (Negative) SARS-CoV-2, RNA, NAAT NEGATIVE (NEGATIVE) 10/12/22 10/12/22 10/12/22 Range/Units 13:55 13:55 13:55 WBC (4.8-10.8) K/ul RBC (4.20-5.40) M/uL Hgb (12.0-16.0) g/dl Hct (37.0-47.0) % MCV (80.0-100.0) fL MCH (25.0-34.0) pg MCHC (32.0-36.0) g/dL RDW Std Deviation (36.4-46.3) fL RDW Coeff of Minal (11.5-14.5) % Plt Count (130-400) K/uL MPV (9.4-12.4) fL Immature Gran % (Auto) % Neut % (Auto) % Lymph % (Auto) % [place] % (Auto) % Eos % (Auto) % Baso % (Auto) % Neut # (Auto) (1.40-6.50) K/uL Lymph # (Auto) (1.2-3.4) K/uL [place] # (Auto) (0.11-0.59) K/uL Eos # (Auto) (0-0.50) K/uL Baso # (Auto) (0-0.2) K/uL Immature Gran # (Auto) (0.01-0.20) K/uL PT (9.0-12.0) Seconds INR (0.9-1.1) Sodium (136-145) mmol/L Potassium (3.5-5.1) mmol/L Chloride (98-107) mmol/L Carbon Dioxide (21-32) mmol/L Anion Gap (3-11) BUN (6-23) mg/dl Creatinine (0.6-1.2) mg/dl Est Cr Clr Drug Dosing ml/min Est GFR ( Amer) ml/min Est GFR (Non-Af Amer) ml/min BUN/Creatinine Ratio (10-20) Glucose (70-99(Fasting)) mg/dl Lactate (0.4-2.0) mmol/L Calcium (8.6-10.3) mg/dl Magnesium (1.7-2.4) mg/dl Total Bilirubin (0.2-1.0) mg/dl AST (13-39) U/L ALT (7-52) U/L Alkaline Phosphatase (34-104) U/L Total Creatine Kinase (26-192) U/L Troponin I High Sens (0-14) pg/ml B-Natriuretic Peptide 397 H (0-100) pg/ml Total Protein (6.0-8.3) gm/dl Albumin (3.4-5.0) gm/dl Globulin (2.5-4.0) gm/dl Albumin/Globulin Ratio (0.9-2) Lipase (11-82) U/L Vitamin B12 (180-914) pg/ml Folate (>5.38) ng/ml Procalcitonin 0.05 (0-0.5) ng/ml TSH (0.300-4.500) uIu/ml Free T4 (0.61-1.60) ng/dl Urine Color Urine Appearance (Clear) Urine pH (4.5-7.5) Ur Specific [place] (1.000-1.030) Urine Protein (Negative) Urine Glucose (UA) (Negative) Urine Ketones (Negative) Urine Blood (Negative) Urine Nitrite (Negative) Urine Bilirubin (Negative) Urine Urobilinogen (Negative) Ur Leukocyte Esterase (Negative) Urine WBC (Auto) (0-5) /hpf Urine RBC (Auto) (0-4) /hpf U Hyaline Cast (Auto) (0-5) /lpf U Epithel Cells (Auto) (0-5) /lpf Urine Bacteria (Auto) (Negative) Stl C. cayetanensis PCR Stool Rotavirus A PCR Stl Adenov F 40 PCR Stool Astrovirus (PCR) Stool Campylobacter PCR Stool Cryptosporidium PCR Stl E.coli Shiga Tox PCR Stl Enterotoxigenic E PCR Stool EAEC (PCR) Stl E. histolytica PCR Stool Giardia Lamblia PCR Stool Salmonella PCR Stool Sapovirus (PCR) Stl P. shigelloides PCR Stl Shigella/EIEC PCR St Y.enterocolitica PCR Stool Vibrio (PCR) Stl Vibrio cholerae PCR Stl Norovirus GI/GII PCR Anaplasma Smear Babesia Smear Babesia microti DNA PCR Pending Lyme Disease IgG Ab Negative (Negative) Lyme Disease IgM Ab Negative (Negative) SARS-CoV-2, RNA, NAAT (NEGATIVE) 10/12/22 10/12/22 10/12/22 Range/Units 13:55 13:55 13:55 WBC (4.8-10.8) K/ul RBC (4.20-5.40) M/uL Hgb (12.0-16.0) g/dl Hct (37.0-47.0) % MCV (80.0-100.0) fL MCH (25.0-34.0) pg MCHC (32.0-36.0) g/dL RDW Std Deviation (36.4-46.3) fL RDW Coeff of Minal (11.5-14.5) % Plt Count (130-400) K/uL MPV (9.4-12.4) fL Immature Gran % (Auto) % Neut % (Auto) % Lymph % (Auto) % [place] % (Auto) % Eos % (Auto) % Baso % (Auto) % Neut # (Auto) (1.40-6.50) K/uL Lymph # (Auto) (1.2-3.4) K/uL [place] # (Auto) (0.11-0.59) K/uL Eos # (Auto) (0-0.50) K/uL Baso # (Auto) (0-0.2) K/uL Immature Gran # (Auto) (0.01-0.20) K/uL PT (9.0-12.0) Seconds INR (0.9-1.1) Sodium 136 (136-145) mmol/L Potassium 3.4 L (3.5-5.1) mmol/L Chloride 105 (98-107) mmol/L Carbon Dioxide 23 (21-32) mmol/L Anion Gap 8 (3-11) BUN 17 (6-23) mg/dl Creatinine 0.65 (0.6-1.2) mg/dl Est Cr Clr Drug Dosing 56.6 ml/min Est GFR ( Amer) 102.8 ml/min Est GFR (Non-Af Amer) 88.7 ml/min BUN/Creatinine Ratio 26.2 H (10-20) Glucose 90 (70-99(Fasting)) mg/dl Lactate 2.0 (0.4-2.0) mmol/L Calcium 8.1 L (8.6-10.3) mg/dl Magnesium 2.0 (1.7-2.4) mg/dl Total Bilirubin 1.0 (0.2-1.0) mg/dl AST 16 (13-39) U/L ALT 15 (7-52) U/L Alkaline Phosphatase 69 (34-104) U/L Total Creatine Kinase 126 (26-192) U/L Troponin I High Sens 4.5 (0-14) pg/ml B-Natriuretic Peptide (0-100) pg/ml Total Protein 6.0 (6.0-8.3) gm/dl Albumin 3.3 L (3.4-5.0) gm/dl Globulin 2.7 (2.5-4.0) gm/dl Albumin/Globulin Ratio 1.2 (0.9-2) Lipase 14 (11-82) U/L Vitamin B12 (180-914) pg/ml Folate (>5.38) ng/ml Procalcitonin (0-0.5) ng/ml TSH 38.754 H (0.300-4.500) uIu/ml Free T4 0.68 (0.61-1.60) ng/dl Urine Color Urine Appearance (Clear) Urine pH (4.5-7.5) Ur Specific [place] (1.000-1.030) Urine Protein (Negative) Urine Glucose (UA) (Negative) Urine Ketones (Negative) Urine Blood (Negative) Urine Nitrite (Negative) Urine Bilirubin (Negative) Urine Urobilinogen (Negative) Ur Leukocyte Esterase (Negative) Urine WBC (Auto) (0-5) /hpf Urine RBC (Auto) (0-4) /hpf U Hyaline Cast (Auto) (0-5) /lpf U Epithel Cells (Auto) (0-5) /lpf Urine Bacteria (Auto) (Negative) Stl C. cayetanensis PCR Stool Rotavirus A PCR Stl Adenov F PCR Stool Astrovirus (PCR) Stool Campylobacter PCR Stool Cryptosporidium PCR Stl E.coli Shiga Tox PCR Stl Enterotoxigenic E PCR Stool EAEC (PCR) Stl E. histolytica PCR Stool Giardia Lamblia PCR Stool Salmonella PCR Stool Sapovirus (PCR) Stl P. shigelloides PCR Stl Shigella/EIEC PCR St Y.enterocolitica PCR Stool Vibrio (PCR) Stl Vibrio cholerae PCR Stl Norovirus GI/GII PCR Anaplasma Smear Babesia Smear Babesia microti DNA PCR Lyme Disease IgG Ab (Negative) Lyme Disease IgM Ab (Negative) SARS-CoV-2, RNA, NAAT (NEGATIVE) 10/12/22 10/12/22 Range/Units 13:55 13:55 WBC 3.62 L (4.8-10.8) K/ul RBC 3.44 L (4.20-5.40) M/uL Hgb 10.8 L (12.0-16.0) g/dl Hct 32.1 L (37.0-47.0) % MCV 93.3 (80.0-100.0) fL MCH 31.4 (25.0-34.0) pg MCHC 33.6 (32.0-36.0) g/dL RDW Std Deviation 53.6 H (36.4-46.3) fL RDW Coeff of Minal 15.7 H (11.5-14.5) % Plt Count 230 (130-400) K/uL MPV 9.6 (9.4-12.4) fL Immature Gran % (Auto) 0.3 % Neut % (Auto) 72.6 % Lymph % (Auto) 20.4 % [place] % (Auto) 5.8 % Eos % (Auto) 0.3 % Baso % (Auto) 0.6 % Neut # (Auto) 2.63 (1.40-6.50) K/uL Lymph # (Auto) 0.74 L (1.2-3.4) K/uL [place] # (Auto) 0.21 (0.11-0.59) K/uL Eos # (Auto) 0.01 (0-0.50) K/uL Baso # (Auto) 0.02 (0-0.2) K/uL Immature Gran # (Auto) 0.01 (0.01-0.20) K/uL PT 10.8 (9.0-12.0) Seconds INR 1.0 (0.9-1.1) Sodium (136-145) mmol/L Potassium (3.5-5.1) mmol/L Chloride (98-107) mmol/L Carbon Dioxide (21-32) mmol/L Anion Gap (3-11) BUN (6-23) mg/dl Creatinine (0.6-1.2) mg/dl Est Cr Clr Drug Dosing ml/min Est GFR ( Amer) ml/min Est GFR (Non-Af Amer) ml/min BUN/Creatinine Ratio (10-20) Glucose (70-99(Fasting)) mg/dl Lactate (0.4-2.0) mmol/L Calcium (8.6-10.3) mg/dl Magnesium (1.7-2.4) mg/dl Total Bilirubin (0.2-1.0) mg/dl AST (13-39) U/L ALT (7-52) U/L Alkaline Phosphatase (34-104) U/L Total Creatine Kinase (26-192) U/L Troponin I High Sens (0-14) pg/ml B-Natriuretic Peptide (0-100) pg/ml Total Protein (6.0-8.3) gm/dl Albumin (3.4-5.0) gm/dl Globulin (2.5-4.0) gm/dl Albumin/Globulin Ratio (0.9-2) Lipase (11-82) U/L Vitamin B12 (180-914) pg/ml Folate (>5.38) ng/ml Procalcitonin (0-0.5) ng/ml TSH (0.300-4.500) uIu/ml Free T4 (0.61-1.60) ng/dl Urine Color Urine Appearance (Clear) Urine pH (4.5-7.5) Ur Specific [place] (1.000-1.030) Urine Protein (Negative) Urine Glucose (UA) (Negative) Urine Ketones (Negative) Urine Blood (Negative) Urine Nitrite (Negative) Urine Bilirubin (Negative) Urine Urobilinogen (Negative) Ur Leukocyte Esterase (Negative) Urine WBC (Auto) (0-5) /hpf Urine RBC (Auto) (0-4) /hpf U Hyaline Cast (Auto) (0-5) /lpf U Epithel Cells (Auto) (0-5) /lpf Urine Bacteria (Auto) (Negative) Stl C. cayetanensis PCR Stool Rotavirus A PCR Stl Adenov F 40/41 PCR Stool Astrovirus (PCR) Stool Campylobacter PCR Stool Cryptosporidium PCR Stl E.coli Shiga Tox PCR Stl Enterotoxigenic E PCR Stool EAEC (PCR) Stl E. histolytica PCR Stool Giardia Lamblia PCR Stool Salmonella PCR Stool Sapovirus (PCR) Stl P. shigelloides PCR Stl Shigella/EIEC PCR St Y.enterocolitica PCR Stool Vibrio (PCR) Stl Vibrio cholerae PCR Stl Norovirus GI/GII PCR Anaplasma Smear See Comment Babesia Smear See Comment Babesia microti DNA PCR Lyme Disease IgG Ab (Negative) Lyme Disease IgM Ab (Negative) SARS-CoV-2, RNA, NAAT (NEGATIVE)
[2022-10-13 11:10] LABS: Adenovirus F 40/41 PCR Not Detected (NotDetected); Astrovirus PCR Not Detected (NotDetected); Campylobacter PCR Not Detected (NotDetected); Cryptosporidium PCR Not Detected (NotDetected); Cyclospora cayetanensis PCR Not Detected (NotDetected); Entamoeba histolytica PCR Not Detected (NotDetected); Enteroaggregative E.coli(EAEC) Not Detected (NotDetected); Enteropathogenic E.coli (EPEC) Not Detected (NotDetected); Enterotoxigenic E.coli (ETEC) Not Detected (NotDetected); Giardia lamblia PCR Not Detected (NotDetected); Plesiomonas shigelloides PCR Not Detected (NotDetected); Rotavirus A PCR Not Detected (NotDetected); Salmonella PCR Not Detected (NotDetected); Sapovirus PCR Not Detected (NotDetected); Shiga-like Toxin E.coli (STEC) Not Detected (NotDetected); Shigella/Enteroinvasive E.coli Not Detected (NotDetected); Vibrio cholerae PCR Not Detected (NotDetected); Vibrio species PCR Not Detected (NotDetected); Yersinia enterocolitica PCR Not Detected (NotDetected)
[2022-10-13 11:35] LABS: Norovirus GI/GII PCR DETECTED (NotDetected)
[2022-10-13] MEDS ORDERED: FAMOTIDINE 20 MG TAB PO PRN (13:25)
[2022-10-13] MEDS ORDERED: FAMOTIDINE 20 MG in SYRINGE 3 ML IV PRN (15:38)
[2022-10-13] MEDS ORDERED: BUTT PASTE (ZINC OXIDE 16%) 171 APPLN/57 GM JAR EXT PRN (15:45)
[2022-10-13] MEDS ORDERED: SODIUM CHLORIDE 0.9% 1000ML 500 ML IV ONE (16:01)
[2022-10-13] MEDS: SODIUM CHLORIDE 0.9% 1000ML 1,000 ML IV SCH (17:14)
[2022-10-14] MEDS: SODIUM CHLORIDE 0.9% 1000ML 1,000 ML IV SCH (01:22)
[2022-10-14] MEDS: HEPARIN SOD 5,000 UNIT/0.5 ML VIAL SQ SCH ×3 (05:19→20:44)
[2022-10-14 07:54] LABS: Hematocrit (blood only) 30.1 % (37.0-47.0); Hemoglobin 9.9 g/dl (12.0-16.0); Mean Corpuscular Hemoglobin 31.4 pg (25.0-34.0); Mean Corpuscular Hgb Conc 32.9 g/dL (32.0-36.0); Mean Corpuscular Volume 95.6 fL (80.0-100.0); Mean Platelet Volume 9.4 fL (9.4-12.4); Platelet Count 196 K/uL (130-400); RDW Coefficient of Variation 16.2 % (11.5-14.5); RDW Standard Deviation 56.6 fL (36.4-46.3); Red Blood Count 3.15 M/uL (4.20-5.40); White Blood Count 4.53 K/ul (4.8-10.8)
[2022-10-14 08:10] LABS: Calcium 7.3 mg/dl (8.6-10.3); Creatinine Clr Calc Pharmacy 54.7 ml/min; Est GFR (African American) 101.3 ml/min; Est GFR (Non-African American) 87.4 ml/min; Magnesium 1.8 mg/dl (1.7-2.4); Phosphorus 2.1 mg/dl (2.5-4.9); Potassium 3.8 mmol/L (3.5-5.1)
[2022-10-14] MEDS: FIDAXOMICIN 200 MG TAB PO SCH (08:46)
[2022-10-14] MEDS: FOLIC ACID 1 MG in SYRINGE 9.8 ML IV SCH (08:46)
[2022-10-14] MEDS: OXYBUTYNIN CHLORIDE XL 5 MG TABCR PO SCH (08:47)
[2022-10-14] MEDS: PANTOprazole 40 MG TAB PO SCH (08:47)
--- NOTE | 2022-10-14 08:51 | Gastroenterology Progress Note ---
Date of Service October 14, 2022 Assessment & Plan (1) Weight loss: Plan: 72 year old female with history of COPD, s/p thyroidectomy w/ postsurgical hypothyroidism, pulmonary hypertension, admitted for evaluation of generalized weakness, ongoing neurological symptoms, weight loss and diarrhea. - Weight loss - EGD 2022 reviewed - Needs repeat EGD - CT 2022 reviewed - OP CTA reviewed - Recommend colonoscopy - Scheduled 01/17/23 - Last colonoscopy 2018 after a positive Cologuard - Diarrhea - There is plan for an OP colonoscopy for biopsies - C.diff gene positive but toxin negative on [facility] - OP C.diff positive - Stool culture is positive again for norovirus - Would continue with c-diff treatment wtih vanco or dificid for 7-10 days longer than systemic antibiotics if using for UTI - Check prealbumin, cortisol stim test, and free t3 - Consider CVID, stool studies for protein loosing enteropathy - To better evaluate for a protein-losing gastroenteropathy, alpha 1- antitrypsin clearance test would be required to measure a 24-hour stool specimen and serum sample for simultaneous measurement of alpha 1 - Would continue a low fat, high-protein diet as tolerated - Pending clinical course can consider EGD/Colonoscopy this admission We appreciate assistance in the management of any serological abnormality and corrections to include: hemoglobin >7, INR <2, platelets >50,000, potassium levels >3.5 but <5.3, and sodium levels within 5 points of the reference range. Thank you for allowing us to participate in the care of this patient. Please call with any acute changes, questions or concerns. Please see addendum below with additional recommendation from my supervising physician. Admission and Anticipated Discharge Date Admission Date: October 12, 2022 Supervising Physician Co-Signing Physician Notes I saw and evaluated the patient, she has presented a number of times with s imilar complaints of diarrhea, we had made arrangements for endoscopy and colonoscopy as an outpatient however the patient does have some difficulty with bowel preps in the past. Given her recurrent presentation for similar symptoms I wonder if it may be prudent to proceed with the endoscopic evaluation as an inpatient we did offer the patient examinations on Monday however she is unclear if she would like to proceed with that at this time. Bowel preparation recommendation has been given to her internal medicine provider should the patient be inclined to undergo the procedures early next week. If the patient is to have procedure would recommend a 2-day bowel preparation with a liquid diet over the weekend as she has had a poor colon preparation on several occasions in the past. Subjective Pt was seen and evaluated, chart reviewed. Notes she had 2 loose stool since evaluated yesterday. No abd pain, nausea, vomiting. Tolerating PO intake well. Drinks bottled water and city water No well water No raw meats/fish is sick with nausea/vomiting and weight loss Review of Systems Review of Systems: All systems reviewed & are unremarkable except as noted in HPI & below Physical Exam Constitutional: WD/WN, vitals as above Respiratory: normal respiratory effort, lungs clear to auscultation Cardiovascular: Rate/Rhythm: regular rate and regular rhythm Gastrointestinal (Abdomen): normal bowel sounds, soft, nontender, no hepatosplenomegaly Skin: no rashes, warm and dry Results & Data Vital Signs (Past 12 Hours) Vital Signs Temp Pulse Resp BP Pulse Ox O2 Del Method 10/14/22 07:55 36.8 C 70 16 102/62 99 Room Air 10/13/22 23:38 36.5 C 67 18 114/78 100 Room Air Laboratory Results 10/14/22 10/14/22 10/13/22 Range/Units 07:37 07:37 09:11 WBC 4.53 L (4.8-10.8) K/ul RBC 3.15 L (4.20-5.40) M/uL Hgb 9.9 L (12.0-16.0) g/dl Hct 30.1 L (37.0-47.0) % MCV 95.6 (80.0-100.0) fL MCH 31.4 (25.0-34.0) pg MCHC 32.9 (32.0-36.0) g/dL RDW Std Deviation 56.6 H (36.4-46.3) fL RDW Coeff of Minal 16.2 H (11.5-14.5) % Plt Count 196 (130-400) K/uL MPV 9.4 (9.4-12.4) fL Sodium 136 (136-145) mmol/L Potassium 3.8 D (3.5-5.1) mmol/L Chloride 108 H (98-107) mmol/L Carbon Dioxide 26 (21-32) mmol/L Anion Gap 2 L (3-11) BUN 17 (6-23) mg/dl Creatinine 0.68 (0.6-1.2) mg/dl Est Cr Clr Drug Dosing 54.7 ml/min Est GFR ( Amer) 101.3 ml/min Est GFR (Non-Af Amer) 87.4 ml/min BUN/Creatinine Ratio 25.0 H (10-20) Glucose 76 (70-99(Fasting)) mg/dl Calcium 7.3 L (8.6-10.3) mg/dl Phosphorus 2.1 L (2.5-4.9) mg/dl Magnesium 1.8 (1.7-2.4) mg/dl Random Cortisol mcg/dl Stl C. cayetanensis PCR (NotDetected) Stool Rotavirus A PCR (NotDetected) Stl Adenov F 40/41 PCR (NotDetected) Stool Astrovirus (PCR) (NotDetected) Stool Campylobacter PCR (NotDetected) Stl C. diff Tox B Gene Negative Cdiff Gene (Neg) Stool Cryptosporidium PCR (NotDetected) Stl E.coli Shiga Tox PCR (NotDetected) Stl Enterotoxigenic E PCR (NotDetected) Stool EPEC (PCR) (NotDetected) Stool EAEC (PCR) (NotDetected) Stl E. histolytica PCR (NotDetected) Stool Giardia Lamblia PCR (NotDetected) Stool Salmonella PCR (NotDetected) Stool Sapovirus (PCR) (NotDetected) Stl P. shigelloides PCR (NotDetected) Stl Shigella/EIEC PCR (NotDetected) St Y.enterocolitica PCR (NotDetected) Stool Vibrio (PCR) (NotDetected) Stl Vibrio cholerae PCR (NotDetected) Stl Norovirus GI/GII PCR (NotDetected) 10/13/22 10/13/22 Range/Units 09:11 06:03 WBC (4.8-10.8) K/ul RBC (4.20-5.40) M/uL Hgb (12.0-16.0) g/dl Hct (37.0-47.0) % MCV (80.0-100.0) fL MCH (25.0-34.0) pg MCHC (32.0-36.0) g/dL RDW Std Deviation (36.4-46.3) fL RDW Coeff of Minal (11.5-14.5) % Plt Count (130-400) K/uL MPV (9.4-12.4) fL Sodium (136-145) mmol/L Potassium (3.5-5.1) mmol/L Chloride (98-107) mmol/L Carbon Dioxide (21-32) mmol/L Anion Gap (3-11) BUN (6-23) mg/dl Creatinine (0.6-1.2) mg/dl Est Cr Clr Drug Dosing ml/min Est GFR ( Amer) ml/min Est GFR (Non-Af Amer) ml/min BUN/Creatinine Ratio (10-20) Glucose (70-99(Fasting)) mg/dl Calcium (8.6-10.3) mg/dl Phosphorus (2.5-4.9) mg/dl Magnesium (1.7-2.4) mg/dl Random Cortisol 17.21 mcg/dl Stl C. cayetanensis PCR Not Detected (NotDetected) Stool Rotavirus A PCR Not Detected (NotDetected) Stl Adenov F 40/41 PCR Not Detected (NotDetected) Stool Astrovirus (PCR) Not Detected (NotDetected) Stool Campylobacter PCR Not Detected (NotDetected) Stl C. diff Tox B Gene (Neg) Stool Cryptosporidium PCR Not Detected (NotDetected) Stl E.coli Shiga Tox PCR Not Detected (NotDetected) Stl Enterotoxigenic E PCR Not Detected (NotDetected) Stool EPEC (PCR) Not Detected (NotDetected) Stool EAEC (PCR) Not Detected (NotDetected) Stl E. histolytica PCR Not Detected (NotDetected) Stool Giardia Lamblia PCR Not Detected (NotDetected) Stool Salmonella PCR Not Detected (NotDetected) Stool Sapovirus (PCR) Not Detected (NotDetected) Stl P. shigelloides PCR Not Detected (NotDetected) Stl Shigella/EIEC PCR Not Detected (NotDetected) St Y.enterocolitica PCR Not Detected (NotDetected) Stool Vibrio (PCR) Not Detected (NotDetected) Stl Vibrio cholerae PCR Not Detected (NotDetected) Stl Norovirus GI/GII PCR DETECTED A* (NotDetected)
[2022-10-14] MEDS: LEVOTHYROXINE SODIUM 50 MCG in SYRINGE 0 ML IV SCH (09:32)
[2022-10-14] MEDS: CYANOCOBALAMIN 1000 MCG/ML VIAL IM SCH (09:32)
--- NOTE | 2022-10-14 11:49 | Hospitalist Progress Note ---
Date of Service October 14, 2022 Assessment & Plan (1) Generalized weakness: Plan: Ongoing for the past several weeks Per PT and OT she is fine to return home. She appears improved. (2) C. difficile diarrhea: Plan: Patient presenting from home with reports of ongoing diarrhea, generalized weakness, frequent falls. Recently admitted to [facility] for multiple issues, 1 of which was norovirus diarrhe a. Norovirus returned positive on stool studies again. She also completed a 7 day course of antibiotics recently. Patient reports ongoing diarrhea since arriving home from the hospital, had outpatient C. difficile testing performed that was positive. Noted positive C. difficile gene on 09/30 with negative toxin. Outpatient study today shows positive toxin. Will start Dificid per GI recommendations. CT ABD/pelvis shows fecal retention and moderate constipation, hold Cholestyramine powder As this cdiff is clarified to be the initial instance, will switch dificid to vancomycin QID as this is less expensive and just as efficacious. (3) Norovirus: Plan: Recurrent positive stool studies with ongoing symptoms. Consult infectious disease for recs. Cont supportive care. (4) UTI (urinary tract infection): Plan: No UTI symptoms reported with Urine culture returning this morning pansensitive E coli. Possible relationship to this unknown urologic obstruction? Possible carrier after recent ecoli infection that was cleared? Possible drug resistance? Will restart empiric Rocephin at this time and appreciate ID recommendations. If we commit her to a course of abx, will extend the PO vancomycin by 10 days past the last day of abx. Will ask Urology to see her, also, given the ongoing severe hydronephrosis and need for outpatient cystoscopy. (5) Hydronephrosis, right: Plan: Present since August 2022 Lasix emptying study done by urology as an outpatient which shows severe obstruction. It is recommended by urologist that she could undergo cystoscopy with trial stent placement. Scheduled to follow-up with urology next month. (6) Weight loss: Plan: possibly related to malabsorption vs malignancy? she is eating heartily. Consider protein losing enteropathy. Apprec GI recommendations who recommends upper and lower GI scope on Monday. Patient is fearful of the prep but will try this weekend with a clear liquid diet. (7) Leg edema: Plan: worsening peripheral edema and anasarca on CT abd/pel. Likely related to malabsorption in conjunction with acute GI illnesses. Hypothyroidism may also be contributing. Echo 09/26/2022-EF 55 to 60%, right atrium moderately dilated, moderate tricuspid regurgitation, mild pulmonary hypertension Received IV Lasix 20 mg in the ED, given ongoing diarrhea and to prevent dehydration, will hold on additional diuretics at this time SCDs/TEDs placed. Cont plan as outlined above. (8) Reflux esophagitis: Plan: chronic, stable. Continue PPI (9) PSVT (paroxysmal supraventricular tachycardia): Plan: chronic, stable. Continue beta-jenn (10) Postsurgical hypothyroidism: Plan: TSH has been climbing since July 2022 TFTs today show TSH 38.75, free T4 0.68. Recently had levothyroxine dose increased during previous admission. Continue levothyroxine 88 mcg Also had incidental finding of neck adenopathy on carotid Doppler during previous admission, needs outpatient ultrasound-guided FNA. Cont with Synthroid IV as there is concern for malabssorption (11) Folate deficiency: Plan: Folate mildly low 4.91, normal vitamin B12 Cont folate and B12 replacement DVT PROPHYLAXIS SQ heparin Full Code Dispo-uncertain at this time. I spent a total [id number] coordinating, documenting, and providing care for this patient excluding time spent in the performance of separately billed services Monica Escalante DO [facility] Admission and Anticipated Discharge Date Admission Date: October 12, 2022 Subjective 72 yo F with diarrrhea and malaise, positive cdiff infection she is eating today and afebrile 2 episodes diarrhea yesterday and 1 episode loose stool today her rectum is uncomfortable and she is very concerned about completing the GI prep needed for colonoscopy on Monday. denies abdominal pain borderline BP norovirus positive again. ID consultation today Review of Systems Review of Systems: All systems were reviewed and negative except as indicated on HPI above. Physical Exam Physical Exam: CONSTITUTIONAL: thin, vitals as above, generally well-appearing, NAD EYES: normal conjunctivae, no scleral icterus, ENT: external ear and nose normal, MMM NECK: trachea midline RESPIRATORY: clear to auscultation bilaterally, no crackles, rales or wheezes, normal respiratory effort CARDIOVASCULAR: regular rate and rhythm, S1 and 2 heard without murmurs, gallops or rubs, no JVD, 2+ peripheral edema bilaterally, NELIA hose in pain CHEST: inspection of chest was normal GASTROINTESTINAL: soft, nontender, ND, no guarding MUSCULOSKELETAL: strength 5/5 throughout, head is normocephalic and atraumatic SKIN: warm and dry NEUROLOGIC: CN 2-12 grossly intact, no sensory deficit, normal cognition, normal speech, no tremor PSYCHIATRIC: alert cooperative and oriented to person, place and time. Euthymic mood, makes good eye contact, language grossly intact, recent and remote memory grossly intact. Results & Data Results & Data Vital Signs (Past 12 Hours) Vital Signs Temp Pulse Resp BP Pulse Ox O2 Del Method O2 Flow Rate 10/14/22 08:30 Nasal Cannula 2 10/14/22 07:55 36.8 C 70 16 102/62 99 Room Air Laboratory Results Short CBC 10/14/22 Range/Units 07:37 WBC 4.53 L (4.8-10.8) K/ul Hgb 9.9 L (12.0-16.0) g/dl Hct 30.1 L (37.0-47.0) % Plt Count 196 (130-400) K/uL BMP 10/14/22 07:37 Sodium 136 Potassium 3.8 D Chloride 108 H Carbon Dioxide 26 BUN 17 Creatinine 0.68 Glucose 76 Calcium 7.3 L Medications Administered Current Inpatient Medications Acetaminophen (Acetaminophen 325 Mg Tab) 650 mg PO Q4H PRN PRN Reason: pain/fever Stop: 11/11/22 22:26 Cyanocobalamin (Cyanocobalamin 1000 Mcg/Ml Vial) 1,000 mcg IM QAM [facility] Stop: 10/18/22 09:01 Last Admin: 10/14/22 09:32 Dose: 1,000 mcg Fidaxomicin (Fidaxomicin 200 Mg Tab) 200 mg PO BID [facility] Stop: 10/22/22 22:26 Last Admin: 10/14/22 08:46 Dose: 200 mg Heparin Sodium (Porcine) (Heparin Sod 5,000 Unit/0.5 Ml Vial) 5,000 units SQ Q8 [facility] Stop: 11/11/22 22:26 Last Admin: 10/14/22 05:19 Dose: 5,000 units Levothyroxine Sodium 50 mcg/ (Syringe) 2.5 mls @ 1.25 mls/min IV DAILY@0900 [facility]; Protocol Stop: 11/12/22 08:59 Last Admin: 10/14/22 09:32 Dose: 1.25 mls/min Folic Acid 1 mg/ Syringe 10 mls @ 5 mls/min IV QAM [facility] Stop: 11/13/22 08:59 Last Admin: 10/14/22 08:46 Dose: 5 mls/min Famotidine 20 mg/ Syringe 5 mls @ 2.5 mls/min IV Q12H PRN PRN Reason: heartburn Stop: 11/12/22 15:44 Oxybutynin Chloride (Oxybutynin Chloride Xl 5 Mg Tabcr) [facility]: 11/12/22 08:59 Last Admin: 10/14/22 08:47 Dose: 5 mg Pantoprazole Sodium (Pantoprazole 40 Mg Tab) [facility] 11/12/22 08:59 Last Admin: 10/14/22 08:47 Dose: 40 mg Petrolatum (Butt Paste (Zinc Oxide 16%) 171 Appln/57 Gm Jar) 1 appln EXT UD PRN PRN Reason: AFTER EACH BM Stop: 11/12/22 15:44
[2022-10-14] MEDS ORDERED: BUTT PASTE (ZINC OXIDE 16%) 171 APPLN/57 GM JAR EXT PRN (16:50)
[2022-10-14] MEDS ORDERED: cefTRIAXone SODIUM 1,000 MG in DEXTROSE 5% AD-VAN 50 ML IV SCH (17:00)
[2022-10-14] MEDS: VANCOMYCIN HCL 125 MG/2.5ML SOLN PO SCH ×2 (17:44→23:02)
[2022-10-14] MEDS: RASPBERRY SYRUP 5 ML UDP PO SCH ×2 (17:44→23:02)
[2022-10-14] MEDS: BUTT PASTE (ZINC OXIDE 16%) 171 APPLN/57 GM JAR EXT SCH (20:44)
[2022-10-15] MEDS: RASPBERRY SYRUP 5 ML UDP PO SCH ×4 (05:55→23:43)
[2022-10-15] MEDS: HEPARIN SOD 5,000 UNIT/0.5 ML VIAL SQ SCH ×3 (05:55→21:29)
[2022-10-15] MEDS: VANCOMYCIN HCL 125 MG/2.5ML SOLN PO SCH ×4 (05:55→23:44)
[2022-10-15 06:07] LABS: Hematocrit (blood only) 29.5 % (37.0-47.0); Hemoglobin 9.8 g/dl (12.0-16.0); Mean Corpuscular Hemoglobin 31.3 pg (25.0-34.0); Mean Corpuscular Hgb Conc 33.2 g/dL (32.0-36.0); Mean Corpuscular Volume 94.2 fL (80.0-100.0); Mean Platelet Volume 9.8 fL (9.4-12.4); Platelet Count 186 K/uL (130-400); RDW Coefficient of Variation 16.2 % (11.5-14.5); RDW Standard Deviation 56.2 fL (36.4-46.3); Red Blood Count 3.13 M/uL (4.20-5.40); White Blood Count 4.15 K/ul (4.8-10.8)
[2022-10-15 06:27] LABS: BUN Creatinine Ratio 24.7 (10-20); Calcium 7.6 mg/dl (8.6-10.3); Creatinine Clr Calc Pharmacy 52.1 ml/min; Est GFR (African American) 95.4 ml/min; Est GFR (Non-African American) 82.3 ml/min; Magnesium 1.8 mg/dl (1.7-2.4); Phosphorus 2.1 mg/dl (2.5-4.9); Potassium 3.6 mmol/L (3.5-5.1)
[2022-10-15] MEDS ORDERED: LAVAGE SOLUTION 4000ML PO SCH (09:00)
[2022-10-15] MEDS: OXYBUTYNIN CHLORIDE XL 5 MG TABCR PO SCH (09:01)
[2022-10-15] MEDS: PANTOprazole 40 MG TAB PO SCH (09:01)
[2022-10-15] MEDS: FOLIC ACID 1 MG in SYRINGE 9.8 ML IV SCH (09:02)
[2022-10-15] MEDS: CYANOCOBALAMIN 1000 MCG/ML VIAL IM SCH (09:03)
[2022-10-15] MEDS: BUTT PASTE (ZINC OXIDE 16%) 171 APPLN/57 GM JAR EXT SCH ×3 (09:04→21:27)
[2022-10-15] MEDS: LEVOTHYROXINE SODIUM 50 MCG in SYRINGE 0 ML IV SCH (09:18)
--- NOTE | 2022-10-15 10:16 | Hospitalist Progress Note ---
Date of Service October 15, 2022 Assessment & Plan (1) Generalized weakness: Plan: Ongoing for the past several weeks Per PT and OT she is fine to return home. She appears improved. (2) C. difficile diarrhea: Plan: Patient presenting from home with reports of ongoing diarrhea, generalized weakness, frequent falls. Recently admitted to [facility] for multiple issues, 1 of which was norovirus diarrhe a. Norovirus returned positive on stool studies again. She also completed a 7 day course of antibiotics recently. Patient reports ongoing diarrhea since arriving home from the hospital, had outpatient C. difficile testing performed that was positive. Noted positive C. difficile gene on 09/30 with negative toxin. Outpatient study today shows positive toxin. Started with dificid per GI and then transitioned to vancomycin as this is her first occurrence and vancomycin is more affordable with equivalent efficacy. CT ABD/pelvis shows fecal retention and moderate constipation, hold Cholestyramine powder (3) Norovirus: Plan: Recurrent positive stool studies with ongoing symptoms. Per ID this is not an active infection, but it is more likely that she just hasn't cleared the infection. (4) Hydronephrosis, right: Plan: Present since August 2022 Lasix emptying study done by urology as an outpatient which shows severe obstruction. It is recommended by urologist that she could undergo cystoscopy with trial stent placement. Scheduled to follow-up with urology next month. (5) Bacteriuria: Plan: No active infection per ID. Stopped empiric Rocephin that was started yesterday (she received one dose). (6) Weight loss: Plan: possibly related to malabsorption vs malignancy? she is eating heartily. Consider protein losing enteropathy. GI with plans to scope her on Monday as part of the workup. (7) Leg edema: Plan: worsening peripheral edema and anasarca on CT abd/pel. Likely related to malabsorption in conjunction with acute GI illnesses. Hypothyroidism may also be contributing. Echo 09/26/2022-EF 55 to 60%, right atrium moderately dilated, moderate tricuspid regurgitation, mild pulmonary hypertension Received IV Lasix 20 mg in the ED, given ongoing diarrhea and to prevent dehydration, will hold on additional diuretics at this time SCDs/TEDs placed. Cont plan as outlined above. (8) Reflux esophagitis: Plan: chronic, stable. Continue PPI (9) PSVT (paroxysmal supraventricular tachycardia): Plan: chronic, stable. Continue beta-jenn (10) Postsurgical hypothyroidism: Plan: TSH has been climbing since July 2022 TFTs today show TSH 38.75, free T4 0.68. Recently had levothyroxine dose increased during previous admission. Continue levothyroxine 88 mcg Also had incidental finding of neck adenopathy on carotid Doppler during previous admission, needs outpatient ultrasound-guided FNA. Cont with Synthroid IV as there is concern for malabssorption (11) Folate deficiency: Plan: Folate mildly low 4.91, normal vitamin B12 Cont folate and B12 replacement DVT PROPHYLAXIS SQ heparin Full Code Dispo-uncertain at this time. I spent a total [id number] coordinating, documenting, and providing care for this patient excluding time spent in the performance of separately billed services Monica Escalante DO [facility] Admission and Anticipated Discharge Date Admission Date: October 12, 2022 Subjective 72 yo F with diarrrhea and malaise, positive cdiff infection she is having some difficulty tolerating the prep today afebrile ambulating in the hallways without difficulty Continues to prep for scopes on Monday Review of Systems Review of Systems: All systems were reviewed and negative except as indicated on HPI above. Physical Exam Physical Exam: CONSTITUTIONAL: thin, vitals as above, generally well-appearing, NAD EYES: normal conjunctivae, no scleral icterus, ENT: external ear and nose normal, MMM NECK: trachea midline RESPIRATORY: clear to auscultation bilaterally, no crackles, rales or wheezes, normal respiratory effort CARDIOVASCULAR: regular rate and rhythm, S1 and 2 heard without murmurs, gallops or rubs, no JVD, 2+ peripheral edema bilaterally, NELIA hose in pain CHEST: inspection of chest was normal GASTROINTESTINAL: soft, nontender, ND, no guarding MUSCULOSKELETAL: strength 5/5 throughout, head is normocephalic and atraumatic SKIN: warm and dry NEUROLOGIC: CN 2-12 grossly intact, no sensory deficit, normal cognition, normal speech, no tremor PSYCHIATRIC: alert cooperative and oriented to person, place and time. Euthymic mood, makes good eye contact, language grossly intact, recent and remote memory grossly intact. Results & Data Results & Data Vital Signs (Past 12 Hours) Vital Signs Temp Pulse Resp BP Pulse Ox O2 Del Method 10/15/22 08:02 36.3 C L 63 16 97/63 L 98 Room Air Laboratory Results Short CBC 10/15/22 Range/Units 05:30 WBC 4.15 L (4.8-10.8) K/ul Hgb 9.8 L (12.0-16.0) g/dl Hct 29.5 L (37.0-47.0) % Plt Count 186 (130-400) K/uL BMP 10/15/22 05:30 Sodium 138 Potassium 3.6 Chloride 109 H Carbon Dioxide 26 BUN 18 Creatinine 0.73 Glucose 78 Calcium 7.6 L Medications Administered Current Inpatient Medications Acetaminophen (Acetaminophen 325 Mg Tab) 650 mg PO Q4H PRN PRN Reason: pain/fever Stop: 11/11/22 22:26 Cyanocobalamin (Cyanocobalamin 1000 Mcg/Ml Vial) 1,000 mcg IM [facility] Stop: 10/18/22 09:01 Last Admin: 10/15/22 09:03 Dose: 1,000 mcg Heparin Sodium (Porcine) (Heparin Sod 5,000 Unit/0.5 Ml Vial) 5,000 units SQ Q8 [facility] Stop: 11/11/22 22:26 Last Admin: 10/15/22 05:55 Dose: 5,000 units Levothyroxine Sodium 50 mcg/ (Syringe) 2.5 mls @ 1.25 mls/min IV DAILY@0900 [facility]; Protocol Stop: 11/12/22 08:59 Last Admin: 10/15/22 09:18 Dose: 1.25 mls/min Folic Acid 1 mg/ Syringe 10 mls @ 5 mls/min IV [facility] Stop: 11/13/22 08:59 Last Admin: 10/15/22 09:02 Dose: 5 mls/min Famotidine 20 mg/ Syringe 5 mls @ 2.5 mls/min IV Q12H PRN PRN Reason: heartburn Stop: 11/12/22 15:44 Oxybutynin Chloride (Oxybutynin Chloride Xl 5 Mg Tabcr) 5 mg PO [facility] Stop: 11/12/22 08:59 Last Admin: 10/15/22 09:01 Dose: 5 mg Pantoprazole Sodium (Pantoprazole 40 Mg Tab) 40 mg PO [facility] Stop: 11/12/22 08:59 Last Admin: 10/15/22 09:01 Dose: 40 mg Petrolatum (Butt Paste (Zinc Oxide 16%) 171 Appln/57 Gm Jar) 1 appln EXT TID [facility] Stop: 11/13/22 20:59 Last Admin: 10/15/22 09:04 Dose: 1 appln Petrolatum (Butt Paste (Zinc Oxide 16%) 171 Appln/57 Gm Jar) 1 appln EXT PRN PRN PRN Reason: POST BM/PERIRECTAL DISCOMFORT Stop: 11/13/22 16:49 Polyethylene Glycol/Electrolytes (Lavage Solution 4000ml) 8 dose PO UD [facility] Stop: 10/15/22 21:00 Polyethylene Glycol/Electrolytes (Lavage Solution 4000ml) 16 dose PO UD [facility] Stop: 10/16/22 23:59 Raspberry (Raspberry Syrup 5 Ml Udp) 5 ml PO Q6 [facility] Stop: 10/24/22 17:59 Last Admin: 10/15/22 05:55 Dose: 5 ml Vancomycin HCl (Vancomycin Hcl 125 Mg/2.5ml Soln) 125 mg PO Q6 [facility] Stop: 10/24/22 17:59 Last Admin: 10/15/22 05:55 Dose: 125 mg
[2022-10-15] MEDS ORDERED: ALBUT/IPRATROP 3MG/0.5MG NEB 3 ML VIAL NEB PRN (14:24)
[2022-10-16] MEDS: METOCLOPRAMIDE HCL 5 MG TABLET PO SCH ×4 (01:34→16:09)
[2022-10-16] MEDS: RASPBERRY SYRUP 5 ML UDP PO SCH ×4 (05:43→23:09)
[2022-10-16] MEDS: VANCOMYCIN HCL 125 MG/2.5ML SOLN PO SCH ×4 (05:43→23:09)
[2022-10-16] MEDS: HEPARIN SOD 5,000 UNIT/0.5 ML VIAL SQ SCH ×2 (05:43→20:45)
[2022-10-16] MEDS ORDERED: LAVAGE SOLUTION 4000ML PO SCH (06:00)
[2022-10-16 06:17] LABS: BUN Creatinine Ratio 21.6 (10-20); Calcium 8.2 mg/dl (8.6-10.3); Creatinine Clr Calc Pharmacy 75.7 ml/min; Est GFR (African American) 111.3 ml/min; Est GFR (Non-African American) 96.1 ml/min; Magnesium 1.8 mg/dl (1.7-2.4); Phosphorus 2.8 mg/dl (2.5-4.9); Potassium 3.6 mmol/L (3.5-5.1)
[2022-10-16] MEDS: CYANOCOBALAMIN 1000 MCG/ML VIAL IM SCH (09:47)
[2022-10-16] MEDS: METOPROLOL SUCC 25MG EXT REL TAB PO SCH (09:48)
[2022-10-16] MEDS: PANTOprazole 40 MG TAB PO SCH (09:48)
[2022-10-16] MEDS: BUTT PASTE (ZINC OXIDE 16%) 171 APPLN/57 GM JAR EXT SCH ×3 (09:48→20:46)
[2022-10-16] MEDS: OXYBUTYNIN CHLORIDE XL 5 MG TABCR PO SCH (09:48)
--- NOTE | 2022-10-16 09:53 | Hospitalist Progress Note ---
Date of Service October 16, 2022 Assessment & Plan (1) Generalized weakness: Plan: Ongoing for the past several weeks Per PT and OT she is fine to return home. She appears improved. (2) C. difficile diarrhea: Plan: Patient presenting from home with reports of ongoing diarrhea, generalized weakness, frequent falls. Recently admitted to [facility] for multiple issues, 1 of which was norovirus diarrhe a. Norovirus returned positive on stool studies again. She also completed a 7 day course of antibiotics recently. Patient reports ongoing diarrhea since arriving home from the hospital, had outpatient C. difficile testing performed that was positive. Noted positive C. difficile gene on 09/30 with negative toxin. Outpatient study today shows positive toxin. Started with dificid per GI and then transitioned to vancomycin as this is her first occurrence and vancomycin is more affordable with equivalent efficacy. CT ABD/pelvis shows fecal retention and moderate constipation, hold Cholestyramine powder (3) Norovirus: Plan: Recurrent positive stool studies with ongoing symptoms. Per ID this is not an active infection, but it is more likely that she just hasn't cleared the infection. (4) Hydronephrosis, right: Plan: Present since August 2022 Lasix emptying study done by urology as an outpatient which shows severe obstruction. It is recommended by urologist that she could undergo cystoscopy with trial stent placement. Scheduled to follow-up with urology next month. (5) Bacteriuria: Plan: No active infection per ID. Stopped empiric Rocephin that was started yesterday (she received one dose). (6) Weight loss: Plan: possibly related to malabsorption vs malignancy? she is eating heartily. Consider protein losing enteropathy. GI with plans to scope her on Monday as part of the workup. (7) Leg edema: Plan: worsening peripheral edema and anasarca on CT abd/pel. Likely related to malabsorption in conjunction with acute GI illnesses. Hypothyroidism may also be contributing. Echo 09/26/2022-EF 55 to 60%, right atrium moderately dilated, moderate tricuspid regurgitation, mild pulmonary hypertension Received IV Lasix 20 mg in the ED, given ongoing diarrhea and to prevent dehydration, will hold on additional diuretics at this time SCDs/TEDs placed. Cont plan as outlined above. (8) Reflux esophagitis: Plan: chronic, stable. Continue PPI (9) PSVT (paroxysmal supraventricular tachycardia): Plan: chronic, stable. Continue beta-jenn (10) Postsurgical hypothyroidism: Plan: TSH has been climbing since July 2022 TFTs today show TSH 38.75, free T4 0.68. Recently had levothyroxine dose increased during previous admission. Continue levothyroxine 88 mcg Also had incidental finding of neck adenopathy on carotid Doppler during previous admission, needs outpatient ultrasound-guided FNA. Cont with Synthroid IV as there is concern for malabsorption (11) Folate deficiency: Plan: Folate mildly low 4.91, normal vitamin B12 Cont folate and B12 replacement DVT PROPHYLAXIS SQ heparin Full Code Dispo-uncertain at this time. Monica [facility]alante DO [facility] and Anticipated Discharge Date Admission Date: October 12, 2022 Subjective 72 yo F with diarrrhea and malaise, positive cdiff infection she is having some difficulty tolerating the prep today but doing the best she can reports BMs are almost clear wtih flecks of stool stool incontinence noted denies abdominal pain LE edema still present. afebrile. ambulating around the room Review of Systems Review of Systems: All systems were reviewed and negative except as indicated on HPI above. Physical Exam Physical Exam: CONSTITUTIONAL: thin, vitals as above, generally well-appearing, NAD EYES: normal conjunctivae, no scleral icterus, ENT: external ear and nose normal, MMM NECK: trachea midline RESPIRATORY: clear to auscultation bilaterally, no crackles, rales or wheezes, normal respiratory effort CARDIOVASCULAR: regular rate and rhythm, S1 and 2 heard without murmurs, gallops or rubs, no JVD, 2+ peripheral edema bilaterally, NELIA hose in pain CHEST: inspection of chest was normal GASTROINTESTINAL: soft, nontender, ND, no guarding MUSCULOSKELETAL: strength 5/5 throughout, head is normocephalic and atraumatic, ambulating independently in the room. SKIN: warm and dry NEUROLOGIC: CN 2-12 grossly intact, no sensory deficit, normal cognition, normal speech, no tremor PSYCHIATRIC: alert cooperative and oriented to person, place and time. Euthymic mood, makes good eye contact, language grossly intact, recent and remote memory grossly intact. Results & Data Results & Data Vital Signs (Past 12 Hours) Vital Signs Temp Pulse Pulse Resp BP BP Pulse Ox 10/16/22 07:20 36.4 C L 74 18 124/72 99 10/15/22 22:55 36.7 C 71 18 106/70 97 O2 Del Method 10/16/22 07:20 Room Air 10/15/22 22:55 Room Air Laboratory Results [facility] 10/16/22 05:40 Sodium 139 Potassium 3.6 Chloride 104 Carbon Dioxide 30 BUN 11 Creatinine 0.51 L Glucose 69 L Calcium 8.2 L Medications Administered Current Inpatient Medications Acetaminophen (Acetaminophen 325 Mg Tab) 650 mg PO Q4H PRN PRN Reason: pain/fever Stop: 11/11/22 22:26 Albuterol (Albut/Ipratrop 3mg/0.5mg Neb 3 Ml Vial) 3 ml NEB QIDR PRN; Protocol PRN Reason: shortness of breath or wheezing Stop: 11/14/22 14:23 Cyanocobalamin (Cyanocobalamin 1000 Mcg/Ml Vial) 1,000 mcg IM QAM [facility] Stop: 10/18/22 09:01 Last Admin: 10/15/22 09:03 Dose: 1,000 mcg Heparin Sodium (Porcine) (Heparin Sod 5,000 Unit/0.5 Ml Vial) 5,000 units SQ Q8 [facility] Stop: 11/11/22 22:26 Last Admin: 10/16/22 05:43 Dose: 5,000 units Levothyroxine Sodium 50 mcg/ (Syringe) 2.5 mls @ 1.25 mls/min IV DAILY@0900 [facility]; Protocol Stop: 11/12/22 08:59 Last Admin: 10/15/22 09:18 Dose: 1.25 mls/min Folic Acid 1 mg/ Syringe 10 mls @ 5 mls/min IV [place] Stop: 11/13/22 08:59 Last Admin: 10/15/22 09:02 Dose: 5 mls/min Famotidine 20 mg/ Syringe 5 mls @ 2.5 mls/min IV Q12H PRN PRN Reason: heartburn Stop: 11/12/22 15:44 Potassium Chloride/Dextrose/Sod Cl (D5w And 1/2nss + 20meq Kcl) 20 meq in 1,000 mls @ 75 mls/hr IV .[id number] [facility]; Protocol Stop: 11/15/22 09:59 Metoclopramide HCl (Metoclopramide Hcl 5 Mg Tablet) 5 mg PO AC [facility] Stop: 10/16/22 21:00 Last Admin: 10/16/22 07:58 Dose: 5 mg Metoprolol Succinate (Metoprolol Succ 25mg Ext Rel Tab) 12.5 mg PO DAILY [facility] Stop: 11/15/22 08:59 Oxybutynin Chloride (Oxybutynin Chloride Xl 5 Mg Tabcr) 5 mg PO QAM [facility] Stop: 11/12/22 08:59 Last Admin: 10/15/22 09:01 Dose: 5 mg Pantoprazole Sodium (Pantoprazole 40 Mg Tab) 40 mg PO QAM [facility] Stop: 11/12/22 08:59 Last Admin: 10/15/22 09:01 Dose: 40 mg Petrolatum (Butt Paste (Zinc Oxide 16%) 171 Appln/57 Gm Jar) 1 appln EXT TID [facility] Stop: 11/13/22 20:59 Last Admin: 10/15/22 21:27 Dose: 1 appln Petrolatum (Butt Paste (Zinc Oxide 16%) 171 Appln/57 Gm Jar) 1 appln EXT PRN PRN PRN Reason: POST BM/PERIRECTAL DISCOMFORT Stop: 11/13/22 16:49 Polyethylene Glycol/Electrolytes (Lavage Solution 4000ml) 16 dose PO UD KVNG Stop: 10/16/22 23:59 Raspberry (Raspberry Syrup 5 Ml Udp) 5 ml PO Q6 [facility] Stop: 10/24/22 17:59 Last Admin: 10/16/22 05:43 Dose: 5 ml Vancomycin HCl (Vancomycin Hcl 125 Mg/2.5ml Soln) 125 mg PO Q6 [facility] Stop: 10/24/22 17:59 Last Admin: 10/16/22 05:43 Dose: 125 mg
[2022-10-16] MEDS: LEVOTHYROXINE SODIUM 50 MCG in SYRINGE 0 ML IV SCH (11:13)
[2022-10-16] MEDS: FOLIC ACID 1 MG in SYRINGE 9.8 ML IV SCH (11:17)
[2022-10-16] MEDS: D5W AND 1/2NSS + 20MEQ KCL 20 MEQ/1,000 ML BAG IV SCH ×2 (11:17→23:11)
[2022-10-16 20:18] LABS: Babesia microti DNA Not Detected (Not Detected)
[2022-10-17] MEDS: VANCOMYCIN HCL 125 MG/2.5ML SOLN PO SCH ×3 (05:46→20:14)
[2022-10-17] MEDS: RASPBERRY SYRUP 5 ML UDP PO SCH ×3 (05:46→20:14)
[2022-10-17 06:49] LABS: BUN Creatinine Ratio 15.9 (10-20); Calcium 8.3 mg/dl (8.6-10.3); Creatinine Clr Calc Pharmacy 86.9 ml/min; Est GFR (African American) 116.9 ml/min; Est GFR (Non-African American) 100.8 ml/min; Magnesium 1.8 mg/dl (1.7-2.4); Phosphorus 3.2 mg/dl (2.5-4.9); Potassium 3.9 mmol/L (3.5-5.1)
--- NOTE | 2022-10-17 08:04 | Anesthesiology Consultation ---
Date of Service October 17, 2022 Assessment & Plan (1) Encounter for pre-operative examination: Chart Review Chart Review: Acceptable Risk for Surgery, Patient NOT seen in Pre Admission Testing and charge entry clerk initiated Consults Requested none History Surgery Operation Date: 10/17/22 16:30 Proposed Procedures p Colonscopy EGD Dr Hill - Mary Jo Hill MD Height/Weight Height: 5 ft 4 in Weight: 47.636 kg Allergies Allergy/AdvReac Type Severity Reaction Status Date / Time morphine Allergy Unknown shock, Verified 10/12/22 17:47 dspnea neomycin Allergy Unknown Verified 10/12/22 18:56 Medications Home Medications Medication Instructions Recorded Confirmed Last Taken metoprolol succinate 25 mg 12.5 mg PO DAILY #15 tabs 08/22/22 10/12/22 10/12/22 tablet,extended release 24 hr oxybutynin chloride 5 mg 5 mg PO QAM 09/25/22 10/12/22 10/12/22 tablet,extended release 24 hr cholestyramine-aspartame 4 gram 4 g PO BID@1000,2200 14 days #30 ea 10/01/22 10/12/22 10/11/22 oral powder for susp in a packet (Prevalite) ipratropium 0.5 mg-albuterol 3 mg 3 ml NEB QIDR PRN shortness of 10/01/2210/11/22 (2.5 mg base)/3 mL nebulization breath or wheezing 30 days #90 mL soln levothyroxine 88 mcg tablet 88 mcg PO DAILYBB 60 days #60 tabs 10/01/22 10/12/22 10/12/22 (Synthroid) pantoprazole 40 mg tablet,delayed 40 mg PO QAM 30 days #30 tabs 10/01/22 10/12/22 10/12/22 release famotidine 40 mg tablet 40 mg PO HS PRN Heartburn 10/12/22 10/12/22 10/11/22 Active Medications Generic Name Dose Route Start Last Admin Trade Name Freq PRN Reason Stop Dose Admin Cyanocobalamin 1,000 mcg 10/14/22 09:00 10/16/22 09:47 Cyanocobalamin 1000 Mcg/Ml Vial IM 10/18/22 09:01 1,000 mcg QAM KVNG Administration Heparin Sodium (Porcine) 5,000 units 10/16/22 21:00 10/16/22 20:45 Heparin Sod 5,000 Unit/0.5 Ml Vial SQ 11/15/22 20:59 5,000 units Q12 KVNG Administration Levothyroxine Sodium 50 mcg/ 2.5 mls @ 1.25 mls/min 10/13/22 09:00 10/16/22 11:13 Syringe IV 11/12/22 08:59 1.25 mls/min DAILY@0900 KVNG Administration Protocol Folic Acid 1 mg/ Syringe 10 mls @ 5 mls/min 10/14/22 09:00 10/16/22 11:17 IV 11/13/22 08:59 5 mls/min QAM KVNG Administration Potassium Chloride/Dextrose/Sod Cl 20 meq in 1,000 mls @ 75 mls/hr 10/16/22 10:00 10/16/22 23:11 D5w And 1/2nss + 20meq Kcl IV 11/15/22 09:59 75 mls/hr .[id number] KVNG Administration Protocol Metoprolol Succinate 12.5 mg 10/16/22 09:00 10/16/22 09:48 Metoprolol Succ 25mg Ext Rel Tab PO 11/15/22 08:59 12.5 mg DAILY KVNG Administration Oxybutynin Chloride 5 mg 10/13/22 09:00 10/16/22 09:48 Oxybutynin Chloride Xl 5 Mg Tabcr PO 11/12/22 08:59 5 mg QAM KVNG Administration Pantoprazole Sodium 40 mg 10/13/22 09:00 10/16/22 09:48 Pantoprazole 40 Mg Tab PO 11/12/22 08:59 40 mg QAM KVNG Administration Petrolatum 1 appln 10/14/22 21:00 10/16/22 20:46 Butt Paste (Zinc Oxide 16%) 171 Appln/57 Gm Jar EXT 11/13/22 20:59 1 appln TID KVNG Administration Raspberry 5 ml 10/14/22 18:00 10/17/22 05:46 Raspberry Syrup 5 Ml Udp PO 10/24/22 17:59 5 ml Q6 KVNG Administration Vancomycin HCl 125 mg 10/14/22 18:00 10/17/22 05:46 Vancomycin Hcl 125 Mg/2.5ml Soln PO 10/24/22 17:59 125 mg Q6 KVNG Administration Past Medical History Medical History (Updated 10/17/22 @ 08:06 by Phi Tolbert MD) COPD (chronic obstructive pulmonary disease) Encounter for pre-operative examination Postsurgical hypothyroidism PSVT (paroxysmal supraventricular tachycardia) Reflux esophagitis Vitamin D deficiency Past Family History Family History Other Breast cancer Past Surgical History Surgical History Hx of colonoscopy Hx of lumbosacral spine surgery x3 Hx of thyroidectomy Social History Smoking Status: Former smoker tobacco type: cigarettes Smoking cigarettes per day: 1 pack a week Do You Dip or Chew Tobacco: No Hx Alcohol Use: No Hx Substance Use: No substance use type: does not use Physical Exam Vital Signs Last Vital Signs Temp 36.8 C 10/17/22 07:30 Pulse 49 L 10/17/22 07:30 Resp 16 10/17/22 07:30 BP 136/86 10/17/22 07:30 Pulse Ox 99 10/17/22 07:30 O2 Del Method Room Air 10/17/22 07:30 O2 Flow Rate 2 10/14/22 08:30 Testing Laboratory Results 10/15/22 05:30 10/17/22 05:50 PT 10.8 Seconds (9.0-12.0) 10/12/22 13:55 INR 1.0 (0.9-1.1) 10/12/22 13:55 Urine Color Yellow 10/12/22 14:13 Urine Appearance Clear (Clear) 10/12/22 14:13 Urine pH 5.0 (4.5-7.5) 10/12/22 14:13 Ur Specific [place]offey 1.014 (1.000-1.030) 10/12/22 14:13 Urine Protein Negative (Negative) 10/12/22 14:13 Urine Glucose (UA) Negative (Negative) 10/12/22 14:13 Urine Ketones Negative (Negative) 10/12/22 14:13 Urine Nitrite Positive (Negative) A 10/12/22 14:13 Ur Leukocyte Esterase Trace (Negative) H 10/12/22 14:13 Urine WBC (Auto) 5-10 /hpf (0-5) H 10/12/22 14:13 Urine RBC (Auto) 0-4 /hpf (0-4) 10/12/22 14:13 U Hyaline Cast (Auto) 1-5 /lpf (0-5) 10/12/22 14:13 U Epithel Cells (Auto) 10-20 /lpf (0-5) H 10/12/22 14:13 Urine Bacteria (Auto) Negative (Negative) 10/12/22 14:13 10/12/22 13:55 Aerobic Blood Culture - Preliminary Blood No growth in Aerobic bottle after 48 hours. Anaerobic Blood Culture - Preliminary No growth in Anaerobic bottle after 48 hours. 10/12/22 13:50 Aerobic Blood Culture - Preliminary Blood No growth in Aerobic bottle after 48 hours. Anaerobic Blood Culture - Preliminary No growth in Anaerobic bottle after 48 hours. 10/12/22 14:13 Urine Culture - Final Urine,Clean Catch Escherichia coli Electrocardiogram Date: 10/12/22 Test Reason : Blood Pressure : / mmHG Vent. Rate : 055 BPM Atrial Rate : 055 BPM P-R Int : 176 ms QRS Dur : 104 ms QT Int : 452 ms P-R-T Axes : 088 087 070 degrees QTc Int : 432 ms Sinus bradycardia with sinus arrhythmia with occasional Premature ventricular complexes Cannot rule out Anterior infarct (cited on or before 20-AUG-2022) Abnormal ECG When compared with ECG of 25-SEP-2022 18:42, Premature ventricular complexes are now Present Chest X-Ray Date: 10/12/22 SINGLE VIEW CHEST CLINICAL HISTORY: Generalized weakness. FINDINGS: An AP, portable, upright chest radiograph is compared to study dated 09/25/2022. The heart is enlarged noting atherosclerotic calcification of the thoracic aorta. The pulmonary vasculature is noncongested. Mild emphysema and chronic interstitial thickening is similar to previous. There is bibasilar scarring/atelectasis. A nipple shadow projects over the left lung base. No airspace consolidation or large pleural effusion is identified. No pneumothorax is seen. The skeletal structures are osteopenic. The bony thorax is grossly intact. IMPRESSION: No acute cardiopulmonary abnormality. Echocardiogram Date: 09/26/22 EF: 55-60 LV Function: normal RWMA: + none Other Findings: + atrial enlargement (RA mod dilated) Valvular Disease: + pertinent finding (mod TR) mild pulmonary HTN
[2022-10-17] MEDS ORDERED: PROPOFOL IV EMULSION 10 MG/ML 20 ML VIAL IV ONE ×2 (08:19→09:48)
[2022-10-17] MEDS ORDERED: LIDOCAINE 2% 2 ML VIAL/AMP(20MG/ML) INFIL ONE (08:19)
--- NOTE | 2022-10-17 08:44 | History & Physical Report ---
Date of Service October 17, 2022 Assessment & Plan Admission and Anticipated Discharge Date Admission Date: October 12, 2022 History of Present Illness Primary Care Provider: Hayes Maurer DO diarrhea CV: RRR Resp: CTA Abd: soft A/p: diarrhea - EGD/cscopy Allergies Allergy/AdvReac Type Severity Reaction Status Date / Time morphine Allergy Unknown shock, Verified 10/17/22 08:28 dspnea neomycin Allergy Unknown Verified 10/17/22 08:28 Home Medications Medication Instructions Recorded Confirmed Type metoprolol succinate 25 mg 12.5 mg PO DAILY #15 tabs 08/22/22 10/12/22 Rx tablet,extended release 24 hr oxybutynin chloride 5 mg 5 mg PO QAM 09/25/22 10/12/22 History tablet,extended release 24 hr cholestyramine-aspartame 4 gram 4 g PO BID@1000,2200 14 days #30 ea 10/01/22 10/12/22 Rx oral powder for susp in a packet (Prevalite) ipratropium 0.5 mg-albuterol 3 mg 3 ml NEB QIDR PRN shortness of 10/01/22 10/12/22 Rx (2.5 mg base)/3 mL nebulization breath or wheezing 30 days #90 mL soln levothyroxine 88 mcg tablet 88 mcg PO DAILYBB 60 days #60 tabs 10/01/22 10/12/22 Rx (Synthroid) pantoprazole 40 mg tablet,delayed 40 mg PO QAM 30 days #30 tabs 10/01/22 Rx release famotidine 40 mg tablet 40 mg PO HS PRN Heartburn 10/12/22 10/12/22 History Past Med/Surg History Medical History (Updated 10/17/22 @ 08:06 by Phi Tolbert MD) COPD (chronic obstructive pulmonary disease) Encounter for pre-operative examination Postsurgical hypothyroidism PSVT (paroxysmal supraventricular tachycardia) Reflux esophagitis Vitamin D deficiency Surgical History Hx of colonoscopy Hx of lumbosacral spine surgery x3 Hx of thyroidectomy Family History Other Breast cancer Social History Smoking Status: Former smoker Tobacco Type: Cigarettes Cigarettes Per Day: 1 pack a week; Second Hand Exposure: Yes; Do You Dip or Chew Tobacco: No; Hx Alcohol Use: No Hx Substance Use: No Preferred Language: Ukrainian Communication Ability: Effective Exhibits Curator Required: No Beliefs That Will Affect Care: None Current Living Situation: Spouse Other Information That Helps Us Care for You: No Feels Safe at Home: Yes Safety Concerns: Feels Safe At This Time Assistive Devices: Cane Results & Data Results & Data Vital Signs (Past 12 Hours) Vital Signs Temp Pulse Pulse Resp BP Pulse Ox O2 Del Method 10/17/22 08:29 36.5 C 57 L 20 138/97 97 Room Air 10/17/22 08:21 Room Air 10/17/22 07:30 36.8 C 49 L 16 136/86 99 Room Air 10/16/22 23:18 36.3 C L 69 16 121/80 99 Room Air Code Status & VTE Plan VTE Prophylaxis Plan VTE Prophylaxis will be ordered: Yes
[2022-10-17] MEDS ORDERED: ePHEDrine sulfate 50 MG/ML SYR ONE (09:48)
[2022-10-17] MEDS ORDERED: GLYCOPYRROLATE 0.2 MG/ML VIAL ONE (09:48)
--- NOTE | 2022-10-17 09:57 | GI REPORT ---
Patient Name: Kaci Funk Procedure Date: 10/17/2022 8:43 AM Date of : 1950 Admit Type: Inpatient Age: 72 Gender: Female Attending MD: Mary Jo Hill MD, Procedure: Colonoscopy Providers: Mary Jo Hill MD Referring MD: Monica Escalante Do Indications: Chronic diarrhea Medicines: See the Anesthesia note for documentation of the administered medications Complications: No immediate complications. Estimated Blood Loss: Estimated blood loss: none. Procedure: Pre-Anesthesia Assessment: - ASA Grade Assessment: III - A patient with severe systemic disease. After I obtained informed consent, the scope was passed under direct vision. Throughout the procedure, the patient's blood pressure, pulse, and oxygen saturations were monitored continuously. The Colonoscope was introduced through the anus and advanced to the ileocecal valve. The colonoscopy was performed with moderate difficulty due to inadequate bowel prep. The patient tolerated the procedure well. The quality of the bowel preparation was poor. Findings: The perianal and digital rectal examinations were normal. Diverticula seen in sigmoid colon and hepatic flexure. No evidence of colitis or mass, but exam markedly limited by prep quality. Biopsies done throughout the colon. Recommendation: - Discharge patient to floor. Mary Jo Hill M.D. Mary Jo Hill MD 10/17/2022 9:57:08 AM This report has been signed electronically. Note Initiated On: 10/17/2022 8:43 AM Number of Addenda: 0 I attest to the content of the Intraoperative Record and orders documented therein, exceptions below {[id number]}
--- NOTE | 2022-10-17 10:01 | GI REPORT ---
Patient Name: Kaci Funk Procedure Date: 10/17/2022 8:44 AM Date of : 1950 Admit Type: Inpatient Age: 72 Gender: Female Attending MD: Mary Jo Hill MD, Procedure: Upper GI endoscopy Providers: Mary Jo Hill MD Referring MD: Monica Escalante Do Indications: Diarrhea Medicines: See the Anesthesia note for documentation of the administered medications Complications: No immediate complications. Estimated Blood Loss: Estimated blood loss: none. Procedure: Pre-Anesthesia Assessment: - ASA Grade Assessment: III - A patient with severe systemic disease. After obtaining informed consent, the endoscope was passed under direct vision. Throughout the procedure, the patient's blood pressure, pulse, and oxygen saturations were monitored continuously. The Colonoscope was introduced through the mouth, and advanced to the fourth part of duodenum. The upper GI endoscopy was accomplished without difficulty. The patient tolerated the procedure well. Findings: The examined esophagus was normal. The entire examined stomach was normal. Biopsies were taken with a cold forceps for histology. The examined duodenum was normal. Biopsies were obtained with cold forceps for histology. Impression: - Normal esophagus. - Normal stomach. Biopsied. - Normal examined duodenum. - Biopsies were obtained. Recommendation: - Discharge patient to floor. Edu Lerner MD 10/17/2022 10:01:20 AM This report has been signed electronically. Note Initiated On: 10/17/2022 8:44 AM Number of Addenda: 0 I attest to the content of the Intraoperative Record and orders documented therein, exceptions below {[id number]}
[2022-10-17] MEDS: FOLIC ACID 1 MG in SYRINGE 9.8 ML IV SCH (10:34)
--- NOTE | 2022-10-17 10:36 | Hospitalist Progress Note ---
Date of Service October 17, 2022 Assessment & Plan (1) Generalized weakness: Plan: Ongoing for the past several weeks Per PT and OT she is fine to return home. She appears improved and has been ambulating around the hallways over the weekend. (2) C. difficile diarrhea: Plan: Patient presenting from home with reports of ongoing diarrhea, generalized weakness, frequent falls. Recently admitted to [facility] for multiple issues, 1 of which was norovirus diarrhea. Norovirus returned positive on stool studies again. She also completed a 7 day course of antibiotics recently. Patient reports ongoing diarrhea since arriving home from the hospital, had outpatient C. difficile testing performed that was positive. Noted positive C. difficile gene on 09/30 with negative toxin. Outpatient study today shows positive toxin. Started with dificid per GI and then transitioned to vancomycin as this is her first occurrence and vancomycin is more affordable with equivalent efficacy. CT ABD/pelvis shows fecal retention and moderate constipation, hold Cholestyramine powder (3) Norovirus: Plan: Recurrent positive stool studies with ongoing symptoms. Per ID this is not an active infection, but it is more likely that she just hasn't cleared the infection. (4) Hydronephrosis, right: Plan: Present since August 2022 Lasix emptying study done by urology as an outpatient which shows severe obstruction. It is recommended by urologist that she could undergo cystoscopy with trial stent placement. Scheduled to follow-up with urology next month. (5) Bacteriuria: Plan: No active infection per ID. Stopped empiric Rocephin that was started yesterday (she received one dose). (6) Weight loss: Plan: possibly related to malabsorption vs malignancy? she is tolerating PO. No evidence of malabsorption on scope per GI who feels she is just constipated. Multiple biopsies were taken and pending. Stop cholestyramine. May be contribu ting to absorption of her Synthroid medication and contributing to constipation and leg edema and directly. Start [employer]-priced this for over $200 for patient. Consider starting this in next 1-2 weeks if stopping the cholestyramine powder doesn't improve things. (7) Leg edema: Plan: worsening peripheral edema and anasarca on CT abd/pel. Echo 09/26/2022-EF 55 to 60%, right atrium moderately dilated, moderate tricuspid regurgitation, mild pulmonary hypertension Received IV Lasix 20 mg in the ED, given ongoing diarrhea and to prevent dehydration, will hold on additional diuretics at this time SCDs/TEDs placed. Continue treatment for norovirus and Synthroid to achieve euthyroid state prior to further work-up (8) Reflux esophagitis: Plan: chronic, stable. Continue PPI (9) PSVT (paroxysmal supraventricular tachycardia): Plan: chronic, stable. Continue beta-jenn (10) Postsurgical hypothyroidism: Plan: TSH has been climbing since July 2022 TFTs today show TSH 38.75, free T4 0.68. Recently had levothyroxine dose increased during previous admission. Continue levothyroxine 88 mcg Also had incidental finding of neck adenopathy on carotid Doppler during previous admission, needs outpatient ultrasound-guided FNA. Cont with Synthroid IV as there is concern for malabsorption Will repeat TFTs in am (11) Folate deficiency: Plan: Folate mildly low 4.91, normal vitamin B12 Cont folate and B12 replacement DVT PROPHYLAXIS SQ heparin Full Code Dispo-to home in am. I spent a total [id number] coordinating, documenting, and providing care for this patient excluding time spent in the performance of separately billed services Monica Escalante DO [facility] Admission and Anticipated Discharge Date Admission Date: October 12, 2022 Subjective 72 yo F with diarrrhea and malaise, positive cdiff infection underwent endoscopy prep was poor so visualization somewheat limited no evidence of enteropathy or malabsorption no masses EGD normal multiple biopsies taken and pending discussed Linzess and stopping cholestyramine with patient as well as prices for her medications she asked if she could stay another night to have someone take care of her because her is not feeling well she later said she was confused and also that she wasn't sure she would be able to ambulate well she has been ambulating over the weekend, tolerating PO reliably and has not demonstrated any confusion since admission She did have anesthesia this morning, and possibly had an intermittent side e ffect from this. Per RN, patient was eager to return home. When I called and spoke with her, patient was very deferential to me but preferred to stay Will plan for dc in am. Review of Systems Review of Systems: All systems were reviewed and negative except as indicated on HPI above. Physical Exam Physical Exam: CONSTITUTIONAL: thin, vitals as above, generally well-appearing, NAD EYES: normal conjunctivae, no scleral icterus, ENT: external ear and nose normal, she is eating lunch. NECK: trachea midline RESPIRATORY: patient declined CARDIOVASCULAR: pt declined CHEST: pt declined GASTROINTESTINAL: pt declined. MUSCULOSKELETAL: unable to assess as patient declined exam SKIN: warm and dry NEUROLOGIC: CN 2-12 grossly intact, no sensory deficit, normal cognition, normal speech, no tremor PSYCHIATRIC: alert cooperative and oriented to person, place and time. Asking questions appropriately and appears clear. Language intact. Results & Data Results & Data Vital Signs (Past 12 Hours) Vital Signs Temp Pulse Pulse Resp BP BP Pulse Ox 10/17/22 10:32 62 16 128/84 95 10/17/22 10:15 73 16 107/70 100 10/17/22 10:00 72 14 99/65 L 96 10/17/22 09:48 74 12 101/57 L 99 10/17/22 08:29 36.5 C 57 L 20 138/97 97 10/17/22 08:21 10/17/22 07:30 36.8 C 49 L 16 136/86 99 10/16/22 23:18 36.3 C L 69 16 121/80 99 O2 Del Method 10/17/22 10:32 Room Air 10/17/22 10:15 Room Air 10/17/22 10:00 Room Air 10/17/22 09:48 Room Air 10/17/22 08:29 Room Air 10/17/22 08:21 Room Air 10/17/22 07:30 Room Air 10/16/22 23:18 Room Air Laboratory Results [facility] 10/17/22 05:50 Sodium 139 Potassium 3.9 Chloride 104 Carbon Dioxide 32 BUN 7 Creatinine 0.44 L Glucose 65 L Calcium 8.3 L Medications Administered Current Inpatient Medications Acetaminophen (Acetaminophen 325 Mg Tab) 650 mg PO Q4H PRN PRN Reason: pain/fever Stop: 11/11/22 22:26 Albuterol (Albut/Ipratrop 3mg/0.5mg Neb 3 Ml Vial) 3 ml NEB QIDR PRN; Protocol PRN Reason: shortness of breath or wheezing Stop: 11/14/22 14:23 Cyanocobalamin (Cyanocobalamin 1000 Mcg/Ml Vial) 1,000 mcg IM QAM [facility] Stop: 10/18/22 09:01 Last Admin: 10/16/22 09:47 Dose: 1,000 mcg Heparin Sodium (Porcine) (Heparin Sod 5,000 Unit/0.5 Ml Vial) 5,000 units SQ Q12 [facility] Stop: 11/15/22 20:59 Last Admin: 10/16/22 20:45 Dose: 5,000 units Levothyroxine Sodium 50 mcg/ (Syringe) 2.5 mls @ 1.25 mls/min IV DAILY@0900 [facility]; Protocol Stop: 11/12/22 08:59 Last Admin: 10/16/22 11:13 Dose: 1.25 mls/min Folic Acid 1 mg/ Syringe 10 mls @ 5 mls/min IV QAM [facility] Stop: 11/13/22 08:59 Last Admin: 10/16/22 11:17 Dose: 5 mls/min Famotidine 20 mg/ Syringe 5 mls @ 2.5 mls/min IV Q12H PRN PRN Reason: heartburn Stop: 11/12/22 15:44 Potassium Chloride/Dextrose/Sod Cl (D5w And 1/2nss + 20meq Kcl) 20 meq in 1,000 mls @ 75 mls/hr IV .[id number] [facility]; Protocol Stop: 11/15/22 09:59 Last Infusion: 10/17/22 08:20 Dose: 0 mls/hr Metoprolol Succinate (Metoprolol Succ 25mg Ext Rel Tab) 12.5 mg PO DAILY [facility] Stop: 11/15/22 08:59 Last Admin: 10/16/22 09:48 Dose: 12.5 mg Oxybutynin Chloride (Oxybutynin Chloride Xl 5 Mg Tabcr) 5 mg PO [facility] Stop: 11/12/22 08:59 Last Admin: 10/16/22 09:48 Dose: 5 mg Pantoprazole Sodium (Pantoprazole 40 Mg Tab) [facility] Stop: 11/12/22 08:59 Last Admin: 10/16/22 09:48 Dose: 40 mg Petrolatum (Butt Paste (Zinc Oxide 16%) 171 Appln/57 Gm Jar) 1 appln EXT TID [facility] Stop: 11/13/22 20:59 Last Admin: 10/16/22 20:46 Dose: 1 appln Petrolatum (Butt Paste (Zinc Oxide 16%) 171 Appln/57 Gm Jar) 1 appln EXT PRN PRN PRN Reason: POST BM/PERIRECTAL DISCOMFORT Stop: 11/13/22 16:49 Raspberry (Raspberry Syrup 5 Ml Udp) 5 ml PO Q6 [facility] Stop: 10/24/22 17:59 Last Admin: 10/17/22 05:46 Dose: 5 ml Vancomycin HCl (Vancomycin Hcl 125 Mg/2.5ml Soln) 125 mg PO Q6 [facility] Stop: 10/24/22 17:59 Last Admin: 10/17/22 05:46 Dose: 125 mg
[2022-10-17] MEDS: CYANOCOBALAMIN 1000 MCG/ML VIAL IM SCH (10:37)
[2022-10-17] MEDS: HEPARIN SOD 5,000 UNIT/0.5 ML VIAL SQ SCH ×2 (10:37→21:18)
[2022-10-17] MEDS: BUTT PASTE (ZINC OXIDE 16%) 171 APPLN/57 GM JAR EXT SCH ×3 (10:38→21:19)
[2022-10-17] MEDS ORDERED: LINACLOTIDE 145 MCG CAPSULE PO ONE (11:00)
[2022-10-17] MEDS: LEVOTHYROXINE SODIUM 50 MCG in SYRINGE 0 ML IV SCH (11:05)
[2022-10-17] MEDS: METOPROLOL SUCC 25MG EXT REL TAB PO SCH (12:55)
[2022-10-17] MEDS: OXYBUTYNIN CHLORIDE XL 5 MG TABCR PO SCH (12:56)
[2022-10-17] MEDS: PANTOprazole 40 MG TAB PO SCH (12:56)
--- NOTE | 2022-10-17 14:48 | Anesthesiology Progress Note ---
Date of Service October 17, 2022 Anesthesia Post Procedure Vital Signs Vital Signs: Temp Pulse Pulse Resp BP BP Pulse Ox 10/17/22 11:01 64 18 143/84 H 96 10/17/22 10:32 62 16 128/84 95 10/17/22 10:15 73 16 107/70 100 10/17/22 10:00 72 14 99/65 L 96 10/17/22 09:48 74 12 101/57 L 99 10/17/22 08:29 36.5 C 57 L 20 138/97 97 10/17/22 08:21 10/17/22 07:30 36.8 C 49 L 16 136/86 99 10/16/22 23:18 36.3 C L 69 16 121/80 99 10/16/22 15:38 36.3 C L 70 16 100/56 L 99 O2 Del Method 10/17/22 11:01 Room Air 10/17/22 10:32 Room Air 10/17/22 10:15 Room Air 10/17/22 10:00 Room Air 10/17/22 09:48 Room Air 10/17/22 08:29 Room Air 10/17/22 08:21 Room Air 10/17/22 07:30 Room Air 10/16/22 23:18 Room Air 10/16/22 15:38 Room Air Transfer of Care Handoff Completed per policy Notes Mental Status: alert / awake / arousable and participated in evaluation Patient Amnestic to Procedure: Yes Nausea / Vomiting: adequately controlled Pain: adequately controlled Airway Patency, RR, SpO2: stable & adequate BP & HR: stable & adequate Hydration State: stable & adequate Anesthetic Complications: no major complications apparent
[2022-10-17] MEDS: D5W AND 1/2NSS + 20MEQ KCL 20 MEQ/1,000 ML BAG IV SCH (17:30)
[2022-10-18] MEDS: RASPBERRY SYRUP 5 ML UDP PO SCH ×5 (00:15→23:26)
[2022-10-18] MEDS: VANCOMYCIN HCL 125 MG/2.5ML SOLN PO SCH ×5 (00:15→23:26)
[2022-10-18 06:41] LABS: BUN Creatinine Ratio 16.2 (10-20); Calcium 8.2 mg/dl (8.6-10.3); Creatinine Clr Calc Pharmacy 56.2 ml/min; Est GFR (African American) 101.3 ml/min; Est GFR (Non-African American) 87.4 ml/min
[2022-10-18 06:52] LABS: Thyroid Stimulating Hormone 34.236 uIu/ml (0.300-4.500)
[2022-10-18 07:27] LABS: T4 Free Thyroxine 0.63 ng/dl (0.61-1.60)
[2022-10-18] MEDS: LEVOTHYROXINE SODIUM 50 MCG in SYRINGE 0 ML IV SCH (08:31)
[2022-10-18] MEDS: LINACLOTIDE 145 MCG CAPSULE PO SCH (08:33)
[2022-10-18] MEDS: PANTOprazole 40 MG TAB PO SCH (08:33)
[2022-10-18] MEDS: METOPROLOL SUCC 25MG EXT REL TAB PO SCH (08:33)
[2022-10-18] MEDS: OXYBUTYNIN CHLORIDE XL 5 MG TABCR PO SCH (08:33)
[2022-10-18] MEDS: CYANOCOBALAMIN 1000 MCG/ML VIAL IM SCH (08:34)
[2022-10-18] MEDS: HEPARIN SOD 5,000 UNIT/0.5 ML VIAL SQ SCH ×2 (08:36→21:47)
[2022-10-18] MEDS: BUTT PASTE (ZINC OXIDE 16%) 171 APPLN/57 GM JAR EXT SCH ×3 (08:37→21:47)
[2022-10-18] MEDS: FOLIC ACID 1 MG in SYRINGE 9.8 ML IV SCH (10:10)
--- NOTE | 2022-10-18 11:25 | Gastroenterology Progress Note ---
Date of Service October 18, 2022 Assessment & Plan Admission and Anticipated Discharge Date Admission Date: October 12, 2022 Subjective Pt with unremarkable EGD. Cscopy notable for poor prep after 2 day prep, suggesting underlying pt has constipation. Ct a/p this admission also suggests this. I suspect that pt is constipated with overflow diarrhea. Her hypothyroidism may be related to co-administration of cholestyramine with thyroid supplements -- she reports taking cholestyramine after waiting about an hour after taking thyroid supplements. She may have pelvic floor dysfunction as well. Follow up bx for evidence of micro colitis, although this seems less likely. Will begin Linzess 72 mcg Daily, which may be difficult to titrate. Hold cholestyrmaine and anti-diarrheals. Hopefully, constipation will improve with correction of thyroid Results & Data Vital Signs (Past 12 Hours) Vital Signs Temp Pulse Resp BP Pulse Ox O2 Del Method 10/18/22 10:10 36.3 C L 10/18/22 07:27 56 L 16 91/60 L 97 Room Air 10/18/22 00:41 36.4 C L 112/64
[2022-10-18] MEDS ORDERED: SODIUM CHLORIDE 0.9% 1000ML 1,000 ML IV ONE (12:26)
[2022-10-18 17:21] LABS: BUN Creatinine Ratio 15.4 (10-20); Calcium 8.4 mg/dl (8.6-10.3); Est GFR (African American) 73.1 ml/min; Magnesium 1.7 mg/dl (1.7-2.4); Phosphorus 3.6 mg/dl (2.5-4.9); Potassium 4.6 mmol/L (3.5-5.1)
--- NOTE | 2022-10-18 19:28 | Hospitalist Progress Note ---
Date of Service October 18, 2022 Assessment & Plan (1) Generalized weakness: Plan: Ongoing for the past several weeks Per PT and OT she is fine to return home. She appears improved and has been ambulating around the hallways over the weekend. Slightly worse today because of the diarrhea. (2) C. difficile diarrhea: Plan: Patient presenting from home with reports of ongoing diarrhea, generalized weakness, frequent falls. Recently admitted to [facility] for multiple issues, 1 of which was norovirus diarrhea. Norovirus returned positive on stool studies again. She also completed a 7 day course of antibiotics recently. Patient reports ongoing diarrhea since arriving home from the hospital, had outpatient C. difficile testing performed that was positive. Noted positive C. difficile gene on 09/30 with negative toxin. Outpatient study revealed a positive toxin. Started with dificid per GI and then transitioned to vancomycin as this is her first occurrence and vancomycin is more affordable with equivalent efficacy. CT ABD/pelvis shows fecal retention and moderate constipation, hold Cholestyramine powder (3) Norovirus: Plan: Recurrent positive stool studies with ongoing symptoms. Per ID this is not an active infection, but it is more likely that she just hasn't cleared the remnants of virus. (4) Hydronephrosis, right: Plan: Present since August 2022 Lasix emptying study done by urology as an outpatient which shows severe obstruction. It is recommended by urologist that she could undergo cystoscopy with trial stent placement. Scheduled to follow-up with urology next month. (5) Bacteriuria: Plan: No active infection per ID. No indication for antibiotics. (6) Weight loss: Plan: possibly related to malabsorption vs malignancy? she is tolerating PO. No evidence of malabsorption on scope per GI who feels she is just constipated. Multiple biopsies were taken and pending. Stop cholestyramine. May be contributing to absorption of her Synthroid medication and contributing to constipation and leg edema and directly. Start [employer]-priced this for over $200 for patient. Consider starting this in next 1-2 weeks if stopping the cholestyramine powder doesn't improve things. (7) Leg edema: Plan: worsening peripheral edema and anasarca on CT abd/pel. Echo 09/26/2022-EF 55 to 60%, right atrium moderately dilated, moderate tricuspid regurgitation, mild pulmonary hypertension Received IV Lasix 20 mg in the ED, given ongoing diarrhea and to prevent dehydration, will hold on additional diuretics at this time SCDs/TEDs placed. Continue treatment for norovirus and Synthroid to achieve euthyroid state prior to further work-up (8) Reflux esophagitis: Plan: chronic, stable. Continue PPI (9) PSVT (paroxysmal supraventricular tachycardia): Plan: chronic, stable. Continue beta-jenn (10) Postsurgical hypothyroidism: Plan: TSH has been climbing since July 2022 TFTs today show TSH 38.75, free T4 0.68. Recently had levothyroxine dose increased during previous admission. Continue levothyroxine 88 mcg Also had incidental finding of neck adenopathy on carotid Doppler during previous admission, needs outpatient ultrasound-guided FNA. Cont with Synthroid IV as there is concern for malabsorption TSH slightly improved. Switch back to oral Synthroid replacement after discharge. (11) Folate deficiency: Plan: Folate mildly low 4.91, normal vitamin B12 Cont folate and B12 replacement DVT PROPHYLAXIS SQ heparin Full Code Dispo-to home in am. I spent a total [id number] coordinating, documenting, and providing care for this patient excluding time spent in the performance of separately billed services Monica Escalante DO [facility] Admission and Anticipated Discharge Date Admission Date: October 12, 2022 Subjective 72 yo F with diarrrhea and malaise, positive cdiff infection she continues to have significant diarrhea today that is "pouring out" She is eating but hypotensive, BP improved with bolus reports feeling overwhelmed as a result of the diarrhea and doesn't feel well Review of Systems Review of Systems: All systems were reviewed and negative except as indicated on HPI above. Physical Exam Physical Exam: CONSTITUTIONAL: thin, vitals as above, generally well-appearing, NAD EYES: normal conjunctivae, no scleral icterus, ENT: external ear and nose normal, MMM NECK: trachea midline RESPIRATORY: clear to auscultation bilaterally, no crackles, rales or wheezes, normal respiratory effort CARDIOVASCULAR: regular rate and rhythm, S1 and 2 heard without murmurs, gallops or rubs, no JVD, 2+ peripheral edema bilaterally, NELIA hose in place CHEST: inspection of chest was normal GASTROINTESTINAL: soft, nontender, ND, no guarding MUSCULOSKELETAL: strength 5/5 throughout, head is normocephalic and atraumatic, ambulating independently in the room. SKIN: warm and dry NEUROLOGIC: CN 2-12 grossly intact, no sensory deficit, normal cognition, normal speech, no tremor PSYCHIATRIC: alert cooperative and oriented to person, place and time. Euthymic mood, makes good eye contact, language grossly intact, recent and remote memory grossly intact. Results & Data Results & Data Vital Signs (Past 12 Hours) Vital Signs Temp Pulse Pulse Resp BP BP Pulse Ox 10/18/22 14:39 36.3 C L 64 18 124/77 99 10/18/22 10:10 36.3 C L 10/18/22 07:27 56 L 16 91/60 L 97 O2 Del Method 10/18/22 14:39 Room Air 10/18/22 10:10 10/18/22 07:27 Room Air Laboratory Results BMP 10/18/22 10/18/22 05:50 16:49 Sodium 135 L 135 L Potassium 4.0 4.6 Chloride 101 102 Carbon Dioxide 28 28 BUN 11 14 Creatinine 0.68 0.91 Glucose 68 L 82 Calcium 8.2 L 8.4 L Medications Administered Current Inpatient Medications Acetaminophen (Acetaminophen 325 Mg Tab) 650 mg PO Q4H PRN PRN Reason: pain/fever Stop: 11/11/22 22:26 Albuterol (Albut/Ipratrop 3mg/0.5mg Neb 3 Ml Vial) 3 ml NEB QIDR PRN; Protocol PRN Reason: shortness of breath or wheezing Stop: 11/14/22 14:23 Heparin Sodium (Porcine) (Heparin Sod 5,000 Unit/0.5 Ml Vial) 5,000 units SQ Q12 [facility] Stop: 11/15/22 20:59 Last Admin: 10/18/22 08:36 Dose: 5,000 units Levothyroxine Sodium 50 mcg/ (Syringe) 2.5 mls @ 1.25 mls/min IV DAILY@0900 [facility]; Protocol Stop: 11/12/22 08:59 Last Admin: 10/18/22 08:31 Dose: 1.25 mls/min Folic Acid 1 mg/ Syringe 10 mls @ 5 mls/min IV QAM [facility] Stop: 11/13/22 08:59 Last Admin: 10/18/22 10:10 Dose: 5 mls/min Famotidine 20 mg/ Syringe 5 mls @ 2.5 mls/min IV Q12H PRN PRN Reason: heartburn Stop: 11/12/22 15:44 Magnesium Sulfate/Dextrose (Magnesium Sulfate / D5w) 1 gm in 100 mls @ 50 mls/hr IV Q2H [facility] Stop: 10/19/22 01:29 Linaclotide (Linaclotide 145 Mcg Capsule) 145 mcg PO DAILY [facility] Stop: 11/17/22 08:59 Last Admin: 10/18/22 08:33 Dose: 145 mcg Metoprolol Succinate (Metoprolol Succ 25mg Ext Rel Tab) 12.5 mg PO DAILY [facility] Stop: 11/15/22 08:59 Last Admin: 10/18/22 08:33 Dose: 12.5 mg Oxybutynin Chloride (Oxybutynin Chloride Xl 5 Mg Tabcr) 5 mg PO QAM [facility] Stop: 11/12/22 08:59 Last Admin: 10/18/22 08:33 Dose: 5 mg Pantoprazole Sodium (Pantoprazole 40 Mg Tab) 40 mg PO QAM [facility] Stop: 11/12/22 08:59 Last Admin: 10/18/22 08:33 Dose: 40 mg Petrolatum (Butt Paste (Zinc Oxide 16%) 171 Appln/57 Gm Jar) 1 appln EXT TID [facility] Stop: 11/13/22 20:59 Last Admin: 10/18/22 14:02 Dose: 1 appln Petrolatum (Butt Paste (Zinc Oxide 16%) 171 Appln/57 Gm Jar) 1 appln EXT PRN PRN PRN Reason: POST BM/PERIRECTAL DISCOMFORT Stop: 11/13/22 16:49 Raspberry (Raspberry Syrup 5 Ml Udp) 5 ml PO Q6 [facility] Stop: 10/24/22 17:59 Last Admin: 10/18/22 17:09 Dose: 5 ml Vancomycin HCl (Vancomycin Hcl 125 Mg/2.5ml Soln) 125 mg PO Q6 [facility] Stop: 10/24/22 17:59 Last Admin: 10/18/22 17:09 Dose: 125 mg
[2022-10-18] MEDS: MAGNESIUM SULFATE / D5W 1 GM/100 ML BAG IV SCH ×2 (20:09→22:49)
[2022-10-19] MEDS: MAGNESIUM SULFATE / D5W 1 GM/100 ML BAG IV SCH (00:49)
[2022-10-19] MEDS: VANCOMYCIN HCL 125 MG/2.5ML SOLN PO SCH ×3 (06:15→18:14)
[2022-10-19] MEDS: RASPBERRY SYRUP 5 ML UDP PO SCH ×3 (06:15→18:14)
[2022-10-19 07:07] LABS: Hematocrit (blood only) 29.9 % (37.0-47.0); Hemoglobin 9.9 g/dl (12.0-16.0); Mean Corpuscular Hemoglobin 31.4 pg (25.0-34.0); Mean Corpuscular Hgb Conc 33.1 g/dL (32.0-36.0); Mean Corpuscular Volume 94.9 fL (80.0-100.0); Platelet Count 201 K/uL (130-400); RDW Coefficient of Variation 15.9 % (11.5-14.5); RDW Standard Deviation 54.5 fL (36.4-46.3); Red Blood Count 3.15 M/uL (4.20-5.40); White Blood Count 3.22 K/ul (4.8-10.8)
[2022-10-19 07:26] LABS: BUN Creatinine Ratio 23.2 (10-20); Creatinine Clr Calc Pharmacy 55.4 ml/min; Est GFR (African American) 100.8 ml/min; Potassium 3.9 mmol/L (3.5-5.1)
[2022-10-19] MEDS: HEPARIN SOD 5,000 UNIT/0.5 ML VIAL SQ SCH ×2 (09:24→20:36)
[2022-10-19] MEDS: FOLIC ACID 1 MG in SYRINGE 9.8 ML IV SCH (09:25)
[2022-10-19] MEDS: LEVOTHYROXINE SODIUM 50 MCG in SYRINGE 0 ML IV SCH (09:26)
[2022-10-19] MEDS: LINACLOTIDE 145 MCG CAPSULE PO SCH (09:28)
[2022-10-19] MEDS: OXYBUTYNIN CHLORIDE XL 5 MG TABCR PO SCH (09:28)
[2022-10-19] MEDS: BUTT PASTE (ZINC OXIDE 16%) 171 APPLN/57 GM JAR EXT SCH ×3 (09:29→20:36)
[2022-10-19] MEDS: PANTOprazole 40 MG TAB PO SCH (09:29)
--- NOTE | 2022-10-19 18:24 | Hospitalist Progress Note ---
Date of Service October 19, 2022 Assessment & Plan (1) Generalized weakness: Plan: Ongoing for the past several weeks Per PT and OT she is fine to return home. She appears improved and has been ambulating around the hallways over the weekend. Slightly worse today because of the diarrhea. Has been ambulating without much difficulties (2) C. difficile diarrhea: Plan: Patient presenting from home with reports of ongoing diarrhea, generalized weakness, frequent falls. Recently admitted to [facility] for multiple issues, 1 of which was norovirus diarrhea. Norovirus returned positive on stool studies again. She also completed a 7 day course of antibiotics recently. Patient reports ongoing diarrhea since arriving home from the hospital, had outpatient C. difficile testing performed that was positive. Noted positive C. difficile gene on 09/30 with negative toxin. Outpatient study revealed a positive toxin. Started with dificid per GI and then transitioned to vancomycin as this is her first occurrence and vancomycin is more affordable with equivalent efficacy. CT ABD/pelvis shows fecal retention and moderate constipation, hold Cholestyramine powder Continues to have diarrhea and will add Imodium on top of other medications If the diarrhea is better likely discharge tomorrow (3) Norovirus: Plan: Recurrent positive stool studies with ongoing symptoms. Per ID this is not an active infection, but it is more likely that she just hasn't cleared the remnants of virus. (4) Hydronephrosis, right: Plan: Present since August 2022 Lasix emptying study done by urology as an outpatient which shows severe obstruction. It is recommended by urologist that she could undergo cystoscopy with trial stent placement. Scheduled to follow-up with urology next month. (5) Bacteriuria: Plan: No active infection per ID. No indication for antibiotics. (6) Weight loss: Plan: possibly related to malabsorption vs malignancy? she is tolerating PO. No evidence of malabsorption on scope per GI who feels she is just constipated. Multiple biopsies were taken and pending. Stop cholestyramine. May be contributing to absorption of her Synthroid medication and contributing to constipation and leg edema and directly. Start [employer]-priced this for over $200 for patient. Consider starting this in next 1-2 weeks if stopping the cholestyramine powder doesn't improve things. (7) Leg edema: Plan: worsening peripheral edema and anasarca on CT abd/pel. Echo 09/26/2022-EF 55 to 60%, right atrium moderately dilated, moderate tricuspid regurgitation, mild pulmonary hypertension Received IV Lasix 20 mg in the ED, given ongoing diarrhea and to prevent dehyd ration, will hold on additional diuretics at this time SCDs/TEDs placed. Continue treatment for norovirus and Synthroid to achieve euthyroid state prior to further work-up Edema could be secondary to hypoalbuminemia-albumin level noted to be at 3.3 g per DL on 10/12/2022 Advised to eat more (8) Reflux esophagitis: Plan: chronic, stable. Continue PPI (9) PSVT (paroxysmal supraventricular tachycardia): Plan: chronic, stable. Continue beta-jenn (10) Postsurgical hypothyroidism: Plan: TSH has been climbing since July 2022 TFTs today show TSH 38.75, free T4 0.68. Recently had levothyroxine dose increased during previous admission. Continue levothyroxine 88 mcg Also had incidental finding of neck adenopathy on carotid Doppler during previous admission, needs outpatient ultrasound-guided FNA. Cont with Synthroid IV as there is concern for malabsorption TSH slightly improved. Switch back to oral Synthroid replacement after discharge. We will continue the current dose of thyroxine (11) Folate deficiency: Plan: Folate mildly low 4.91, normal vitamin B12 Cont folate and B12 replacement DVT PROPHYLAXIS SQ heparin Full Code Likely discharge tomorrow Admission and Anticipated Discharge Date Admission Date: October 12, 2022 Subjective 10/19/2022 The patient was seen and examined in the medical floor She has been better since this morning but still continues to have diarrhea Has been ambulating without much difficulties She is not yet ready to be discharged today Review of Systems Review of Systems: All systems reviewed and are unremarkable except as noted below Gastrointestinal: Still having diarrhea Physical Exam Physical Exam: Sitting on a chair without any acute distress Constitutional: + ill appearing and + thin Eyes: PERRL, conjunctivae normal, anicteric sclerae ENMT: external ear and nose normal, oropharynx normal Neck: trachea midline, no thyromegaly Respiratory: no respiratory distress Auscultation: lungs clear to auscultation bilaterally Cardiovascular: Rate/Rhythm: regular rate and regular rhythm; not tachycardic Heart Sounds: normal S1 and normal S2; no murmur Extremities: + edema (Bilateral leg edema) Gastrointestinal (Abdomen): Inspection/Auscultation: normal bowel sounds; abdomen not distended Percussion/Palpation: abdomen soft; abdomen nontender Musculoskeletal: No acute arthritis involving any joint Neurologic: normal touch/pain/proprioception and moves all extremities; no focal motor deficits Generally weak and lethargic Results & Data Results & Data Vital Signs (Past 12 Hours) Vital Signs Temp Pulse Resp BP Pulse Ox O2 Del Method 10/19/22 15:36 36.3 C L 66 16 107/69 100 Room Air 10/19/22 08:01 61 16 110/78 99 Room Air 10/19/22 07:54 Room Air Laboratory Results Short CBC 10/19/22 Range/Units 06:22 WBC 3.22 L (4.8-10.8) K/ul Hgb 9.9 L (12.0-16.0) g/dl Hct 29.9 L (37.0-47.0) % Plt Count 201 (130-400) K/uL BMP 10/19/22 06:22 Sodium 136 Potassium 3.9 Chloride 104 Carbon Dioxide 28 BUN 16 Creatinine 0.69 Glucose 74 Calcium 8.0 L Medications Administered Current Inpatient Medications Acetaminophen (Acetaminophen 325 Mg Tab) 650 mg PO Q4H PRN PRN Reason: pain/fever Stop: 11/11/22 22:26 Albuterol (Albut/Ipratrop 3mg/0.5mg Neb 3 Ml Vial) 3 ml NEB QIDR PRN; Protocol PRN Reason: shortness of breath or wheezing Stop: 11/14/22 14:23 Heparin Sodium (Porcine) (Heparin Sod 5,000 Unit/0.5 Ml Vial) 5,000 units SQ Q12 [facility] Stop: 11/15/22 20:59 Last Admin: 10/19/22 09:24 Dose: 5,000 units Levothyroxine Sodium 50 mcg/ (Syringe) 2.5 mls @ 1.25 mls/min IV DAILY@0900 [facility]; Protocol Stop: 11/12/22 08:59 Last Admin: 10/19/22 09:26 Dose: 1.25 mls/min Folic Acid 1 mg/ Syringe 10 mls @ 5 mls/min IV QAM [facility] Stop: 11/13/22 08:59 Last Admin: 10/19/22 09:25 Dose: 5 mls/min Famotidine 20 mg/ Syringe 5 mls @ 2.5 mls/min IV Q12H PRN PRN Reason: heartburn Stop: 11/12/22 15:44 Linaclotide (Linaclotide 145 Mcg Capsule) 145 mcg PO DAILY [facility] Stop: 11/17/22 08:59 Last Admin: 10/19/22 09:28 Dose: 145 mcg Loperamide HCl (Loperamide Hcl 2 Mg Cap) 2 mg PO UD PRN PRN Reason: Diarrhea Stop: 11/18/22 18:12 Metoprolol Succinate (Metoprolol Succ 25mg Ext Rel Tab) 12.5 mg PO DAILY [facility] Stop: 11/15/22 08:59 Last Admin: 10/18/22 08:33 Dose: 12.5 mg Oxybutynin Chloride (Oxybutynin Chloride Xl 5 Mg Tabcr) 5 mg PO QAM [facility] Stop: 11/12/22 08:59 Last Admin: 10/19/22 09:28 Dose: 5 mg Pantoprazole Sodium (Pantoprazole 40 Mg Tab) 40 mg PO QAM [facility] Stop: 11/12/22 08:59 Last Admin: 10/19/22 09:29 Dose: 40 mg Petrolatum (Butt Paste (Zinc Oxide 16%) 171 Appln/57 Gm Jar) 1 appln EXT TID [facility] Stop: 11/13/22 20:59 Last Admin: 10/19/22 14:55 Dose: 1 appln Petrolatum (Butt Paste (Zinc Oxide 16%) 171 Appln/57 Gm Jar) 1 appln EXT PRN PRN PRN Reason: POST BM/PERIRECTAL DISCOMFORT Stop: 11/13/22 16:49 Raspberry (Raspberry Syrup 5 Ml Udp) 5 ml PO Q6 [facility] Stop: 10/24/22 17:59 Last Admin: 10/19/22 18:14 Dose: 5 ml Vancomycin HCl (Vancomycin Hcl 125 Mg/2.5ml Soln) 125 mg PO Q6 [facility] Stop: 10/24/22 17:59 Last Admin: 10/19/22 18:14 Dose: 125 mg
[2022-10-19 19:17] LABS: Ceruloplasmin 22 mg/dL (18-53); Zinc 49 mcg/dL (60-130)
[2022-10-19] MEDS: LOPERAMIDE HCL 2 MG CAP PO PRN (20:35)
[2022-10-20] MEDS: RASPBERRY SYRUP 5 ML UDP PO SCH ×3 (00:41→12:58)
[2022-10-20] MEDS: VANCOMYCIN HCL 125 MG/2.5ML SOLN PO SCH ×3 (00:41→12:58)
[2022-10-20] MEDS: LOPERAMIDE HCL 2 MG CAP PO PRN ×2 (07:39→14:33)
[2022-10-20 07:41] LABS: BUN Creatinine Ratio 30.4 (10-20); Creatinine Clr Calc Pharmacy 56.2 ml/min; Est GFR (African American) 100.8 ml/min; Phosphorus 3.3 mg/dl (2.5-4.9); Potassium 3.8 mmol/L (3.5-5.1)
[2022-10-20] MEDS: PANTOprazole 40 MG TAB PO SCH (08:46)
[2022-10-20] MEDS: LINACLOTIDE 145 MCG CAPSULE PO SCH (08:46)
[2022-10-20] MEDS: OXYBUTYNIN CHLORIDE XL 5 MG TABCR PO SCH (08:46)
[2022-10-20] MEDS: LEVOTHYROXINE SODIUM 50 MCG in SYRINGE 0 ML IV SCH (08:50)
[2022-10-20] MEDS: FOLIC ACID 1 MG in SYRINGE 9.8 ML IV SCH (09:01)
[2022-10-20] MEDS: HEPARIN SOD 5,000 UNIT/0.5 ML VIAL SQ SCH (09:01)
[2022-10-20] MEDS: BUTT PASTE (ZINC OXIDE 16%) 171 APPLN/57 GM JAR EXT SCH ×2 (09:06→15:01)
--- NOTE | 2022-10-20 13:14 | Hospitalist Progress Note ---
Date of Service October 20, 2022 Assessment & Plan (1) Generalized weakness: Plan: Ongoing for the past several weeks Per PT and OT she is fine to return home. She appears improved and has been ambulating around the hallways over the weekend. Slightly worse today because of the diarrhea. Has been ambulating without much difficulties Has been getting better and ambulating in the hallways without any difficulties (2) C. difficile diarrhea: Plan: Patient presenting from home with reports of ongoing diarrhea, generalized weakness, frequent falls. Recently admitted to [facility] for multiple issues, 1 of which was norovirus diarrhea. Norovirus returned positive on stool studies again. She also completed a 7 day course of antibiotics recently. Patient reports ongoing diarrhea since arriving home from the hospital, had outpatient C. difficile testing performed that was positive. Noted positive C. difficile gene on 09/30 with negative toxin. Outpatient study revealed a positive toxin. Started with dificid per GI and then transitioned to vancomycin as this is her first occurrence and vancomycin is more affordable with equivalent efficacy. CT ABD/pelvis shows fecal retention and moderate constipation, hold Cholestyramine powder Continues to have diarrhea and will add Imodium on top of other medications If the diarrhea is better likely discharge tomorrow Will have Imodium as needed as an outpatient to control chronic diarrhea (3) Norovirus: Plan: Recurrent positive stool studies with ongoing symptoms. Per ID this is not an active infection, but it is more likely that she just hasn't cleared the remnants of virus. (4) Hydronephrosis, right: Plan: Present since August 2022 Lasix emptying study done by urology as an outpatient which shows severe obstruction. It is recommended by urologist that she could undergo cystoscopy with trial stent placement. Scheduled to follow-up with urology next month.-We will need to follow-up appointment with urologist (5) Bacteriuria: Plan: No active infection per ID. No indication for antibiotics. (6) Weight loss: Plan: possibly related to malabsorption vs malignancy? she is tolerating PO. No evidence of malabsorption on scope per GI who feels she is just constipated. Multiple biopsies were taken and pending. Stop cholestyramine. May be contributing to absorption of her Synthroid medication and contributing to constipation and leg edema and directly. [employer]-priced this for over $200 for patient. Consider starting this in next 1-2 weeks if stopping the cholestyramine powder doesn't improve things. She has gained about 10 pounds since admission on 9 of this month (7) Leg edema: Plan: worsening peripheral edema and anasarca on CT abd/pel. Echo 09/26/2022-EF 55 to 60%, right atrium moderately dilated, moderate tricuspid regurgitation, mild pulmonary hypertension Received IV Lasix 20 mg in the ED, given ongoing diarrhea and to prevent dehydration, will hold on additional diuretics at this time SCDs/TEDs placed. Continue treatment for norovirus and Synthroid to achieve euthyroid state prior to further work-up Edema could be secondary to hypoalbuminemia-albumin level noted to be at 3.3 g per DL on 10/12/2022 Advised to elevate the legs while sleeping and increase activity/ambulation (8) Reflux esophagitis: Plan: chronic, stable. Continue PPI (9) PSVT (paroxysmal supraventricular tachycardia): Plan: chronic, stable. Continue beta-jenn (10) Postsurgical hypothyroidism: Plan: TSH has been climbing since July 2022 TFTs today show TSH 38.75, free T4 0.68. Recently had levothyroxine dose increased during previous admission. Continue levothyroxine 88 mcg Also had incidental finding of neck adenopathy on carotid Doppler during previous admission, needs outpatient ultrasound-guided FNA. Cont with Synthroid IV as there is concern for malabsorption TSH slightly improved. Switch back to oral Synthroid replacement after discharge. We will continue the current dose of thyroxine Will increase the thyroxine dose to 112 mcg a day (11) Folate deficiency: Plan: Folate mildly low 4.91, normal vitamin B12 Cont folate and B12 replacement DVT PROPHYLAXIS SQ heparin Full Code Likely discharge today Admission and Anticipated Discharge Date Admission Date: October 12, 2022 Subjective 10/19/2022 The patient was seen and examined in the medical floor She has been better since this morning but still continues to have diarrhea Has been ambulating without much difficulties She is not yet ready to be discharged today 10/20/2022 The patient was seen and examined in the medical floor She has been much better today and has had diarrhea once last night She has been ambulating in the hallway without any difficulties She will be discharged home this afternoon Review of Systems Review of Systems: All systems reviewed and are unremarkable except as noted below Gastrointestinal: Still having diarrhea Physical Exam Physical Exam: Sitting on a chair without any acute distress Constitutional: + ill appearing and + thin Eyes: PERRL, conjunctivae normal, anicteric sclerae ENMT: external ear and nose normal, oropharynx normal Neck: trachea midline, no thyromegaly Respiratory: no respiratory distress Auscultation: lungs clear to auscultation bilaterally Cardiovascular: Rate/Rhythm: regular rate and regular rhythm; not tachycardic Heart Sounds: normal S1 and normal S2; no murmur Extremities: + edema (Bilateral leg edema) Gastrointestinal (Abdomen): Inspection/Auscultation: normal bowel sounds; abdomen not distended Percussion/Palpation: abdomen soft; abdomen nontender Neurologic: normal touch/pain/proprioception and moves all extremities; no focal motor deficits Results & Data Results & Data Vital Signs (Past 12 Hours) Vital Signs Temp Pulse Resp BP Pulse Ox O2 Del Method 10/20/22 10:06 Room Air 10/20/22 07:54 36.3 C L 60 16 101/62 97 Room Air Laboratory Results [facility] 10/20/22 06:04 Sodium 137 Potassium 3.8 Chloride 105 Carbon Dioxide 29 BUN 21 Creatinine 0.69 Glucose 94 Calcium 8.0 L Medications Administered Current Inpatient Medications Acetaminophen (Acetaminophen 325 Mg Tab) 650 mg PO Q4H PRN PRN Reason: pain/fever Stop: 11/11/22 22:26 Last Admin: 10/20/22 07:39 Dose: 650 mg Albuterol (Albut/Ipratrop 3mg/0.5mg Neb 3 Ml Vial) 3 ml NEB QIDR PRN; Protocol PRN Reason: shortness of breath or wheezing Stop: 11/14/22 14:23 Heparin Sodium (Porcine) (Heparin Sod 5,000 Unit/0.5 Ml Vial) 5,000 units SQ Q12 [facility] Stop: 11/15/22 20:59 Last Admin: 10/20/22 09:01 Dose: 5,000 units Levothyroxine Sodium 50 mcg/ (Syringe) 2.5 mls @ 1.25 mls/min IV DAILY@0900 [facility]; Protocol Stop: 11/12/22 08:59 Last Admin: 10/20/22 08:50 Dose: 1.25 mls/min Folic Acid 1 mg/ Syringe 10 mls @ 5 mls/min IV QAM [facility] Stop: 11/13/22 08:59 Last Admin: 10/20/22 09:01 Dose: 5 mls/min Famotidine 20 mg/ Syringe 5 mls @ 2.5 mls/min IV Q12H PRN PRN Reason: heartburn Stop: 11/12/22 15:44 Linaclotide (Linaclotide 145 Mcg Capsule) 145 mcg PO DAILY [facility] Stop: 11/17/22 08:59 Last Admin: 10/20/22 08:46 Dose: 145 mcg Loperamide HCl (Loperamide Hcl 2 Mg Cap) 2 mg PO UD PRN PRN Reason: Diarrhea Stop: 11/18/22 18:12 Last Admin: 10/20/22 07:39 Dose: 2 mg Metoprolol Succinate (Metoprolol Succ 25mg Ext Rel Tab) 12.5 mg PO DAILY [facility] Stop: 11/15/22 08:59 Last Admin: 10/18/22 08:33 Dose: 12.5 mg Oxybutynin Chloride (Oxybutynin Chloride Xl 5 Mg Tabcr) 5 mg PO QAM [facility] Stop: 11/12/22 08:59 Last Admin: 10/20/22 08:46 Dose: 5 mg Pantoprazole Sodium (Pantoprazole 40 Mg Tab) 40 mg PO QAM [facility] Stop: 11/12/22 08:59 Last Admin: 10/20/22 08:46 Dose: 40 mg Petrolatum (Butt Paste (Zinc Oxide 16%) 171 Appln/57 Gm Jar) 1 appln EXT TID [facility] Stop: 11/13/22 20:59 Last Admin: 10/20/22 09:06 Dose: Not Given Petrolatum (Butt Paste (Zinc Oxide 16%) 171 Appln/57 Gm Jar) 1 appln EXT PRN PRN PRN Reason: POST BM/PERIRECTAL DISCOMFORT Stop: 11/13/22 16:49 Raspberry (Raspberry Syrup 5 Ml Udp) 5 ml PO Q6 [facility] Stop: 10/24/22 17:59 Last Admin: 10/20/22 12:58 Dose: 5 ml Vancomycin HCl (Vancomycin Hcl 125 Mg/2.5ml Soln) 125 mg PO Q6 [facility] Stop: 10/24/22 17:59 Last Admin: 10/20/22 12:58 Dose: 125 mg
--- NOTE | 2022-10-21 08:30 | Discharge Summary ---
Date of Service October 21, 2022 Admission HPI Per Admitting Provider Chief Complaint: Generalized weakness, diarrhea Primary Care Provider: Hayes Maurer DO 72-year-old female with PMH COPD, history of thyroidectomy with postsurgical hypothyroidism, pulmonary hypertension, and other problems listed below who presents to the ED for evaluation of generalized weakness and diarrhea. History obtained from the patient and review of outpatient PCP and recent inpatient records. Per prior H&P: Admitted 08/16 to 08/22/2022 secondary to dizziness, falls, numbness in hands and legs. She was found to have a vitamin B12 deficiency. She received appropriate vitamin B12 supplementation and her intrinsic antibody test was negative. She was seen and evaluated by neurology who recommended [facility] MRIs orthopedic spine reviewed images and felt a most concerning would be her cervical spine which demonstrated advanced cervical spondylosis however no gross cord compression was seen. It was felt that her sensory deficits or nutrition related. Patient also reported weight loss of 115 pounds to 90 pounds in 1 month. She was treated with appropriate antibiotics for E. coli UTI. She was also found to have severe right hydronephrosis and was seen and evaluated by urology who recommended follow-up as an outpatient. In regards to patient's severe right hydronephrosis she did have a Lasix emptying study done by urology as an outpatient which shows severe obstruction. It is recommended by urologist that she could undergo cystoscopy with stent placement if symptoms are persistent. Patient did have lung cancer screening CT in June 2022 which recommended to continue routine scr eenings and was negative. She also underwent CTA abdomen pelvis in July 2022 which was negative, did reveal malpositioned right kidney with pelvocaliectasis. Admitted 09/25/2022 to 10/01/2022 for generalized weakness, severe protein calorie malnutrition, E. coli UTI, SVT, norovirus diarrhea. Patient underwent brain MRI that was negative for acute stroke. Also had CT chest that was negative for zahraa ng mass. Patient was evaluated by GI who recommended outpatient EGD and colonoscopy. For E. coli UTI, patient received 4 days of IV ceftriaxone and 3 days of Keflex. Patient was noted to have intermittent episodes of paroxysmal SVT, due to bradycardia on admission, metoprolol was initially held and then resumed without further recurrences of SVT. For norovirus diarrhea, patient symptoms were relieved with Colesytramine. She also had C. difficile testing that was positive for gene but negative for toxin. Patient was also treated for mild COPD exacerbation. TSH was noted to be elevated at 28 with low normal free T4, levothyroxine was increased to 88 mcg daily. Carotid ultrasound incidentally showed thyroid adenopathy and outpatient ultrasound-guided FNA was recommended. Patient presents today stating that her diarrhea returned within a couple of days of returning home. She reports multiple episodes of watery diarrhea per day. She reports that she feels generally weak and has been falling multiple times per day. Sometimes she crawls around her house. She denies abdominal pain, nausea, vomiting. However states that shortly after eating, she has diarrhea. She denies fevers and chills. No chest pain or shortness of breath. Denies lightheadedness, dizziness, diaphoresis, syncopal events. She was noted to have lower extremity edema which she reports has been ongoing for the past several weeks. She denies urinary symptoms. As an outpatient, patient had C. difficile and stool PCR testing. C. difficile toxin returned positive today. In the ED, patient is hemodynamically stable. CT ABD/pelvis is negative for acute or new findings. Patient was given IV ceftriaxone for possible UTI and IV Lasix. Admission Exam Per Admitting Provider Constitutional: WD/WN, vitals as above Eyes: PERRL, conjunctivae normal, anicteric sclerae ENMT: external ear and nose normal, oropharynx normal Respiratory: normal respiratory effort, lungs clear to auscultation Cardiovascular: Rate/Rhythm: regular rate and regular rhythm Vessels: normal peripheral pulses Extremities: + edema (+2-3 pitting edema BLE) Gastrointestinal (Abdomen): normal bowel sounds, soft, nontender, no hepatosplenomegaly Musculoskeletal: no cyanosis or clubbing, extremities motor strength 5/5 Skin: no rashes, warm and dry Neurologic: PERRL, EOMI, accommodation nl, no face palsy, no dysarthria Psychiatric: A+Ox3, euthymic affect Principal Diagnosis Generalized weakness, C. difficile diarrhea, right hydronephrosis, postsurgical hypothyroidism, bilateral leg edema, history of PSVT Discharge Exam Sitting on a chair without any acute distress Constitutional + ill appearing and + thin Eyes PERRL, conjunctivae normal, anicteric sclerae ENMT external ear and nose normal, oropharynx normal Neck trachea midline, no thyromegaly Respiratory no respiratory distress Auscultation: lungs clear to auscultation bilaterally Cardiovascular Rate/Rhythm: regular rate and regular rhythm; not tachycardic Heart Sounds: normal S1 and normal S2; no murmur Extremities: + edema (Bilateral leg edema) Gastrointestinal (Abdomen) Inspection/Auscultation: normal bowel sounds; abdomen not distended Percussion/Palpation: abdomen soft; abdomen nontender Neurologic normal touch/pain/proprioception and moves all extremities; no focal motor deficits Discharge Data Allergies Allergy/AdvReac Type Severity Reaction Status Date / Time morphine Allergy Unknown shock, Verified 10/17/22 08:28 dspnea neomycin Allergy Unknown Verified 10/17/22 08:28 Consultations 10/12/22 17:27 ED Decision to Admit Stat 10/12/22 21:15 Consult Gastroenterology Routine 10/13/22 15:38 Consult Infectious Diseases Routine Procedures Performed Operation Date: 10/17/22 16:30 Actual Procedures p EGD Biopsy Cytology - Mary Jo Hill MD s Colonoscopy Biopsy Cytology - Mary Jo Hill MD Ordered Studies 10/12/22 13:29 CT head/brain wo con Stat 10/12/22 13:31 CT abd pelvis IV con only Stat Hospital Course (1) Generalized weakness: Ongoing for the past several weeks Per PT and OT she is fine to return home. She appears improved and has been ambulating around the hallways over the weekend. Slightly worse today because of the diarrhea. Has been ambulating without much difficulties Has been getting better and ambulating in the hallways without any difficulties (2) C. difficile diarrhea: Patient presenting from home with reports of ongoing diarrhea, generalized weakness, frequent falls. Recently admitted to [facility] for multiple issues, 1 of which was norovirus diarrhea. Norovirus returned positive on stool studies again. She also completed a 7 day course of antibiotics recently. Patient reports ongoing diarrhea since arriving home from the hospital, had outpatient C. difficile testing performed that was positive. Noted positive C. difficile gene on 09/30 with negative toxin. Outpatient study revealed a positive toxin. Started with dificid per GI and then transitioned to vancomycin as this is her first occurrence and vancomycin is more affordable with equivalent efficacy. CT ABD/pelvis shows fecal retention and moderate constipation, hold Cholestyramine powder Continues to have diarrhea and will add Imodium on top of other medications If the diarrhea is better likely discharge tomorrow Will have Imodium as needed as an outpatient to control chronic diarrhea (3) Norovirus: Recurrent positive stool studies with ongoing symptoms. Per ID this is not an active infection, but it is more likely that she just hasn't cleared the remnants of virus. (4) Hydronephrosis, right: Present since August 2022 Lasix emptying study done by urology as an outpatient which shows severe obstruction. It is recommended by urologist that she could undergo cystoscopy with trial stent placement. Scheduled to follow-up with urology next month.-We will need to follow-up appointment with urologist (5) Bacteriuria: No active infection per ID. No indication for antibiotics. (6) Weight loss: possibly related to malabsorption vs malignancy? she is tolerating PO. No vinh dence of malabsorption on scope per GI who feels she is just constipated. Multiple biopsies were taken and pending. Stop cholestyramine. May be contributing to absorption of her Synthroid medication and contributing to constipation and leg edema and directly. [employer]-priced this for over $200 for patient. Consider starting this in next 1-2 weeks if stopping the cholestyramine powder doesn't improve things. She has gained about 10 pounds since admission on 9 of this month (7) Leg edema: worsening peripheral edema and anasarca on CT abd/pel. Echo 09/26/2022-EF 55 to 60%, right atrium moderately dilated, moderate tricuspid regurgitation, mild pulmonary hypertension Received IV Lasix 20 mg in the ED, given ongoing diarrhea and to prevent dehydration, will hold on additional diuretics at this time SCDs/TEDs placed. Continue treatment for norovirus and Synthroid to achieve euthyroid state prior to further work-up Edema could be secondary to hypoalbuminemia-albumin level noted to be at 3.3 g per DL on 10/12/2022 Advised to elevate the legs while sleeping and increase activity/ambulation (8) Reflux esophagitis: chronic, stable. Continue PPI (9) PSVT (paroxysmal supraventricular tachycardia): chronic, stable. Continue beta-jenn (10) Postsurgical hypothyroidism: TSH has been climbing since July 2022 TFTs today show TSH 38.75, free T4 0.68. Recently had levothyroxine dose increased during previous admission. Continue levothyroxine 88 mcg Also had incidental finding of neck adenopathy on carotid Doppler during previous admission, needs outpatient ultrasound-guided FNA. Cont with Synthroid IV as there is concern for malabsorption TSH slightly improved. Switch back to oral Synthroid replacement after discharge. We will continue the current dose of thyroxine Will increase the thyroxine dose to 112 mcg a day (11) Folate deficiency: Folate mildly low 4.91, normal vitamin B12 Cont folate and B12 replacement DVT PROPHYLAXIS SQ heparin Full Code Likely discharge today Total Time Total Time Spent Total Time Spent (In Minutes): 40 minutes Discharge Plan Discharge Items Patient Disposition: Home - Self-Care Reason For Visit: WEAKNESS, C. DIFF Discharge Diagnosis: Generalized weakness, C. difficile diarrhea, right hydronephrosis, postsurgical hypothyroidism, bilateral leg edema, history of PSVT Condition on Discharge: Good Activity: Resume your previous activity Non-emergency contact: Primary Care Provider Call non-emergency contact if: you have any medication questions and your symptoms worsen Follow-up/Referrals: Hayes Maurer DO [Primary Care Provider] - (Date & Time 10/24/2022 2:20 PM Provider Hayes Maurer DO Department [facility] ) Diet: Low Fiber Addtl Attending Provider Instructions: Please take precautions to avoid falls Take your medications as advised Try to take [id number] Imodium every time after each loose bowel movement and you can go up to 6 times a day. Try to avoid constipation by taking this medication. Please give appointment with your primary care provider You should get a referral to see urologist as an outpatient through your primary care physician Pending Studies at Discharge: No Stand-Alone Forms: My [facility] [employer], Smoking Cessation Medications and DC Order Prescriptions: New Linzess 145 mcg capsule 145 mcg PO DAILY Qty: 30 0RF vancomycin 125 mg capsule 125 mg PO Q6H Qty: 12 0RF loperamide 2 mg Capsule 2 mg PO UD PRN (Reason: diarrhea) Qty: 30 0RF Rx Instructions: After loose stool every 3 hours as needed up to 6 times a day levothyroxine [Synthroid] 100 mcg tablet 100 mcg PO DAILY Qty: 30 0RF Continued metoprolol succinate 25 mg tablet extended release 24 hr 12.5 mg PO DAILY Qty: 15 0RF oxybutynin chloride 5 mg tablet extended release 24hr 5 mg PO QAM pantoprazole 40 mg Tablet,Delayed Release (Dr/Ec) 40 mg PO QAM 30 Days Qty: 30 0RF ipratropium-albuterol 0.5 mg-3 mg(2.5 mg base)/3 mL Solution For Nebulization 3 ml NEB QIDR PRN (Reason: shortness of breath or wheezing) 30 Days Qty: 90 0RF famotidine 40 mg tablet 40 mg PO HS PRN (Reason: Heartburn) Discontinued levothyroxine [Synthroid] 88 mcg Tablet 88 mcg PO DAILYBB 60 Days Qty: 60 0RF Discharge Orders: Discharge Order (Routine); Ordered 10/20/22 Ordered By: Yvan Rodriguez Admission Data Admit Date/Time: 10/12/22 18:43 Attending Provider: Yvan Rodriguez Admit Provider: Monica Escalante Primary Care Provider: Hayes Maurer Other Providers: Stewart Saldana ; Monica Escalante ; De Osman ; Rah Jackson ; Carlos Harper I. ; Luis Toscano II ; Kerry Oleary ; Donell Weber ; Codey Levy ; Rosio Iyer Other Interventions: Discharge Summary Assessment (RN) Last Done: 10/20/22 17:42
== END 2022-10-20 18:55 | disposition home or self-care (01) | DRG 371 ==
LOC: ED 12:48 → 3E 18:43 → SUATTDRO 18:43 → 3E 22:14

== ENCOUNTER 2022-10-24 10:13 | Inpatient (IN) ==
[2022-10-24 11:32] LABS: Basophils # (auto) 0.02 K/uL (0-0.2); Basophils % (auto) 0.4 %; Eosinophils # (auto) 0.01 K/uL (0-0.50); Eosinophils % (auto) 0.2 %; Hematocrit (blood only) 34.3 % (37.0-47.0); Hemoglobin 10.9 g/dl (12.0-16.0); Immature Granulocytes # (auto) 0.01 K/uL (0.01-0.20); Immature Granulocytes % (auto) 0.2 %; Lymphocytes # (auto) 0.52 K/uL (1.2-3.4); Lymphocytes % (auto) 10.4 %; Mean Corpuscular Hemoglobin 31.5 pg (25.0-34.0); Mean Corpuscular Hgb Conc 31.8 g/dL (32.0-36.0); Mean Corpuscular Volume 99.1 fL (80.0-100.0); Mean Platelet Volume 9.9 fL (9.4-12.4); Monocytes # (auto) 0.39 K/uL (0.11-0.59); Monocytes % (auto) 7.8 %; Neutrophils # (auto) 4.07 K/uL (1.40-6.50); Platelet Count 196 K/uL (130-400); RDW Standard Deviation 61.8 fL (36.4-46.3); Red Blood Count 3.46 M/uL (4.20-5.40); White Blood Count 5.02 K/ul (4.8-10.8)
[2022-10-24 11:53] LABS: Alanine Aminotransferase 43 U/L (7-52); Albumin Globulin Ratio 1.2 (0.9-2); Albumin Level 3.7 gm/dl (3.4-5.0); Alkaline Phosphatase 100 U/L (34-104); Anion Gap 6 (3-11); Aspartate Aminotransferase 30 U/L (13-39); BUN Creatinine Ratio 26.2 (10-20); Bilirubin,Total 1.2 mg/dl (0.2-1.0); Blood Urea Nitrogen 22 mg/dl (6-23); Calcium 8.9 mg/dl (8.6-10.3); Carbon Dioxide 29 mmol/L (21-32); Chloride 105 mmol/L (98-107); Est GFR (African American) 80.5 ml/min; Est GFR (Non-African American) 69.4 ml/min; Glucose 72 mg/dl (70-99(Fasting)); Potassium 3.4 mmol/L (3.5-5.1); Sodium 140 mmol/L (136-145); Total Protein 6.7 gm/dl (6.0-8.3)
--- NOTE | 2022-10-24 12:11 | XRay Report ---
XR chest 1V not portable CLINICAL HISTORY: b/l leg swelling TECHNIQUE: Single frontal radiograph of the chest was obtained. Comparison: Comparison is made to chest radiograph 10/12/2022 FINDINGS: No lines and tubes are seen. Calcified aortic knob is seen. Posterior fixation hardware is seen in th e lumbar spine. The lungs are clear. No evidence of pleural effusion or pneumothorax. IMPRESSION: No acute chest disease. ACT 112: Negative or not required by law. Electronically signed by: Trent Woodruff M.D. 10/24/2022 12:10 PM
[2022-10-24] MEDS ORDERED: SODIUM CHLORIDE 0.9% 500 ML IV ONE (15:01)
--- NOTE | 2022-10-24 15:13 | Emergency Department Note ---
Impression & Plan Weakness, Falling, Extremity edema, Anemia, Hypokalemia, Bradycardia ED Provider Note NAME: KARISSA KATZ AGE: 72 SEX: F : 1950 ARRIVES VIA: Walk-In INFORMANT: [Patient][family] ED PROVIDER(S): [Valentin Garcia MD] CHIEF COMPLAINT: Swelling, falling, weakness HISTORY OF PRESENT ILLNESS: The patient is a 72-year-old female who was discharged from our hospital 3 days ago. She had been in for a C. difficile colitis and pedal edema with weakness. She was improved and discharged. Since discharge, patient's weakness has increased, her edema in the legs has increased, she continues to have multiple diarrhea episodes despite the vancomycin she was prescribed. The patient denies any head injury, she denies any neck pain. No real injury from her falls. No fever, chills, cough or congestion. She is making urine, no urinary burning. PMHx/PSHx: See Below SOCIAL HISTORY: See Below. PHYSICAL EXAM: GENERAL: Patient is in no acute distress. HEENT: No acute trauma, normocephalic atraumatic, mucous membranes moist, no nasal congestion. NECK: No stridor, no adenopathy, no meningismus, trachea is midline. LUNGS: Clear to auscultation bilaterally, no wheeze, no rhonchi, breath sounds equal. HEART: Bradycardic, regular rhythm, no murmurs ABDOMEN: Soft, nontender, bowel sounds positive, no peritonitis. Some abdominal distention noted. EXTREMITIES: No cyanosis. Significant bilateral pedal edema. The left hand and wrist are also edematous. NEUROLOGIC: Oriented x 3, no acute motor or sensory deficits, no focal weakness. SKIN: No rash, no jaundice, no diaphoresis. DIFFERENTIAL DIAGNOSIS: Fluid overload, venous insufficiency, medication reaction, renal or liver failure, anemia, C. difficile colitis, dehydration, among others. EMERGENCY DEPARTMENT COURSE/PROCEDURES: Prior/Outside records reviewed: Recent discharge summary. ECG per my interpretation: Indication was weakness. The ECG shows a sinus bradycardia with a rate of 54. There is a potential old septal infarct. There is no ST elevation, no PVCs. The QTc is 476 Continuous Cardiac Monitoring: An order was placed for continuous cardiac monitoring. The monitor shows a rate of 48 with sinus bradycardia. MEDICAL DECISION MAKING: There is no leukocytosis. The patient is anemic with a hemoglobin of 10.9. This appears baseline looking back at previous testing. Platelet count was normal. No coagulopathy. Potassium was somewhat low at 3.4. No renal failure. The bilirubin was mildly elevated, the remaining liver enzymes were unremarkable. The patient's TSH was high, the T4 though was normal. The patient does state that she has recently had her thyroid medication increased. Chest x-ray per my review showed some chronic change, no pneumonia or pneumothorax. ECG showed a sinus bradycardia, no ischemia or dysrhythmia. On exam, the patient had left upper extremity, bilateral lower extremity edema. The patient presents with increasing weakness, frequent falls and increasing edema. She was notably bradycardic. She was discharged recently from our [facility] and has done poorly since, she is not safe at home, her family cannot care for her in this condition. I did speak with case management, I did consult the on-call hospitalist. Admission is warranted. Further work-up is needed. The patient may require eventual rehab placement. DISPOSITION: Patient's presentation and findings warrant a hospital stay. Past Med/Surg History Medical History COPD (chronic obstructive pulmonary disease) Postsurgical hypothyroidism PSVT (paroxysmal supraventricular tachycardia) Reflux esophagitis Vitamin D deficiency Surgical History Hx of colonoscopy Hx of lumbosacral spine surgery x3 Hx of thyroidectomy Family History Other Breast cancer Social History Smoking Status: Current every day smoker Tobacco Type: Cigarettes Cigarettes Per Day: 1 pack a week; Second Hand Exposure: Yes; Do You Dip or Chew Tobacco: No; Hx Alcohol Use: No Hx Substance Use: No Preferred Language: Azerbaijani Communication Ability: Effective Back Shoe Cutter Required: No Beliefs That Will Affect Care: None Current Living Situation: Spouse Current Living Situation Comment: home Feels Safe at Home: Yes Safety Concerns: Feels Safe At This Time Assistive Devices: Cane Allergies Allergies Allergy/AdvReac Type Severity Reaction Status Date / Time adhesive tape Allergy Unknown Redness of Verified 10/24/22 16:26 Skin morphine Allergy Unknown shock, Verified 10/17/22 08:28 dspnea neomycin Allergy Unknown Unknown Verified 10/24/22 16:26 Home Meds Home Medications Medication Instructions Recorded Confirmed oxybutynin chloride 5 mg 5 mg PO QAM 09/25/22 10/24/22 tablet,extended release 24 hr famotidine 40 mg tablet 40 mg PO HS PRN Heartburn 10/12/22 10/24/22 Previous Rx's Medication Instructions Recorded metoprolol succinate 25 mg 12.5 mg PO DAILY #15 tabs 08/22/22 tablet,extended release 24 hr ipratropium 0.5 mg-albuterol 3 mg 3 ml NEB QIDR PRN shortness of 10/01/22 (2.5 mg base)/3 mL nebulization breath or wheezing 30 days #90 mL soln pantoprazole 40 mg tablet,delayed 40 mg PO QAM 30 days #30 tabs 10/01/22 release linaclotide 145 mcg capsule 145 mcg PO DAILY #30 caps 10/17/22 (Linzess) vancomycin 125 mg capsule 125 mg PO Q6H #12 caps 10/17/22 levothyroxine 100 mcg tablet 100 mcg PO DAILY #30 tabs 10/20/22 (Synthroid) loperamide 2 mg capsule 2 mg PO UD PRN diarrhea #30 caps 10/20/22 Results & Data (ED) Vital Signs Vital Signs - 24 hr 10/24/22 10:23 10/24/22 15:04 Pulse Rate 53 L Pulse Rate [Right Finger] 58 L Respiratory Rate 20 26 H Respiratory Effort / Characteristics Non-Labored Spontaneous Non-Labored Respiratory Depth Normal Normal Respiratory Pattern Regular Blood Pressure 95/58 L Blood Pressure [Left Arm] 116/74 Blood Pressure Mean 70 Blood Pressure Mean [Left Arm] 88 Pulse Oximetry 95 100 Oxygen Delivery Method Room Air Room Air Sepsis Recent Fever Within 48 Hours No Sepsis New/Unexplained Change in Mental Status N/A Sepsis Action Taken by Nursing No Action Required Home Medications Current Medication List: was personally reviewed by me Laboratory Data Attestation: I reviewed the patient's lab results. 10/24/22 11:13 10/24/22 11:13 Lab Results 10/24/22 10/24/22 10/24/22 Range/Units 11:13 11:13 11:13 WBC 5.02 (4.8-10.8) K/ul RBC 3.46 L (4.20-5.40) M/uL Hgb 10.9 L (12.0-16.0) g/dl Hct 34.3 L (37.0-47.0) % MCV 99.1 (80.0-100.0) fL MCH 31.5 (25.0-34.0) pg MCHC 31.8 L (32.0-36.0) g/dL RDW Std Deviation 61.8 H (36.4-46.3) fL RDW Coeff of Minal 17.0 H (11.5-14.5) % Plt Count 196 (130-400) K/uL MPV 9.9 (9.4-12.4) fL Immature Gran % (Auto) 0.2 % Neut % (Auto) 81.0 % Lymph % (Auto) 10.4 % [place] % (Auto) 7.8 % Eos % (Auto) 0.2 % Baso % (Auto) 0.4 % Neut # (Auto) 4.07 (1.40-6.50) K/uL Lymph # (Auto) 0.52 L (1.2-3.4) K/uL [place] # (Auto) 0.39 (0.11-0.59) K/uL Eos # (Auto) 0.01 (0-0.50) K/uL Baso # (Auto) 0.02 (0-0.2) K/uL Immature Gran # (Auto) 0.01 (0.01-0.20) K/uL PT (9.0-12.0) Seconds INR (0.9-1.1) APTT (21.0-31.0) Seconds PTT Ratio Sodium 140 (136-145) mmol/L Potassium 3.4 L (3.5-5.1) mmol/L Chloride 105 (98-107) mmol/L Carbon Dioxide 29 (21-32) mmol/L Anion Gap 6 (3-11) BUN 22 (6-23) mg/dl Creatinine 0.84 (0.6-1.2) mg/dl Est Cr Clr Drug Dosing Not Reportable Est GFR ( Amer) 80.5 ml/min Est GFR (Non-Af Amer) 69.4 ml/min BUN/Creatinine Ratio 26.2 H (10-20) Glucose 72 (70-99(Fasting)) mg/dl Calcium 8.9 (8.6-10.3) mg/dl Magnesium Cancelled 2.3 Total Bilirubin 1.2 H (0.2-1.0) mg/dl AST 30 (13-39) U/L ALT 43 (7-52) U/L Alkaline Phosphatase 100 (34-104) U/L Total Protein 6.7 (6.0-8.3) gm/dl Albumin 3.7 (3.4-5.0) gm/dl Globulin 3.0 (2.5-4.0) gm/dl Albumin/Globulin Ratio 1.2 (0.9-2) TSH (0.300-4.500) uIu/ml Free T4 (0.61-1.60) ng/dl 10/24/22 10/24/22 Range/Units 11:13 15:02 WBC (4.8-10.8) K/ul RBC (4.20-5.40) M/uL Hgb (12.0-16.0) g/dl Hct (37.0-47.0) % MCV (80.0-100.0) fL MCH (25.0-34.0) pg MCHC (32.0-36.0) g/dL RDW Std Deviation (36.4-46.3) fL RDW Coeff of Minal (11.5-14.5) % Plt Count (130-400) K/uL MPV (9.4-12.4) fL Immature Gran % (Auto) % Neut % (Auto) % Lymph % (Auto) % [place] % (Auto) % Eos % (Auto) % Baso % (Auto) % Neut # (Auto) (1.40-6.50) K/uL Lymph # (Auto) (1.2-3.4) K/uL [place] # (Auto) (0.11-0.59) K/uL Eos # (Auto) (0-0.50) K/uL Baso # (Auto) (0-0.2) K/uL Immature Gran # (Auto) (0.01-0.20) K/uL PT 10.7 (9.0-12.0) Seconds INR 1.0 (0.9-1.1) APTT 29.8 (21.0-31.0) Seconds PTT Ratio 1.1 Sodium (136-145) mmol/L Potassium (3.5-5.1) mmol/L Chloride (98-107) mmol/L Carbon Dioxide (21-32) mmol/L Anion Gap (3-11) BUN (6-23) mg/dl Creatinine (0.6-1.2) mg/dl Est Cr Clr Drug Dosing Est GFR ( Amer) ml/min Est GFR (Non-Af Amer) ml/min BUN/Creatinine Ratio (10-20) Glucose (70-99(Fasting)) mg/dl Calcium (8.6-10.3) mg/dl Magnesium Total Bilirubin (0.2-1.0) mg/dl AST (13-39) U/L ALT (7-52) U/L Alkaline Phosphatase (34-104) U/L Total Protein (6.0-8.3) gm/dl Albumin (3.4-5.0) gm/dl Globulin (2.5-4.0) gm/dl Albumin/Globulin Ratio (0.9-2) TSH 32.058 H (0.300-4.500) uIu/ml Free T4 0.85 (0.61-1.60) ng/dl Administered Medications Discontinued Medications Sodium Chloride (Nss 1000ml) 500 mls @ 999 mls/hr IV .Q31M ONE Stop: 10/24/22 15:31 Last Admin: 10/24/22 18:51 Dose: 999 mls/hr Documented By: JESSEE Raspberry (Raspberry Syrup 5 Ml Udp) 5 ml PO ONE STA Stop: 10/24/22 16:29 Last Admin: 10/24/22 18:50 Dose: 5 ml Documented By: JESSEE Vancomycin HCl (Vancomycin Hcl 125 Mg/2.5ml Soln) 125 mg PO NOW STA Stop: 10/24/22 16:32 Last Admin: 10/24/22 18:51 Dose: 125 mg Documented By: JESSEE Imaging Data Radiologist's Impression: Chest X-Ray 10/24/22 10:52 XR chest 1V not portable CLINICAL HISTORY: b/l leg swelling TECHNIQUE: Single frontal radiograph of the chest was obtained. Comparison: Comparison is made to chest radiograph 10/12/2022 FINDINGS: No lines and tubes are seen. Calcified aortic knob is seen. Posterior fixation hardware is seen in the lumbar spine. The lungs are clear. No evidence of pleural effusion or pneumothorax. IMPRESSION: No acute chest disease. ACT 112: Negative or not required by law. Electronically signed by: Trent Woodruff M.D. 10/24/2022 12:10 PM Discharge Plan Visit Data Chief Complaint: Swelling/Edema to Extremity Stated Complaint: UNABLE TO WALK, LEGS AND FEET SWOLLEN, DIARRHEA ED Provider: Valentin Garcia Discharge Problem: Weakness, Falling, Extremity edema, Anemia, Hypokalemia, Bradycardia Patient Disposition: Admitted As Inpatient Condition: Fair Discharge Instructions Interventions: ED Discharge Assessment Last Done: 10/24/22 20:28
--- NOTE | 2022-10-24 15:33 | History & Physical Report ---
Date of Service October 24, 2022 Assessment & Plan (1) Generalized weakness: (2) Weight loss: (3) C. difficile diarrhea: (4) PSVT (paroxysmal supraventricular tachycardia): (5) Bradycardia: (6) Postsurgical hypothyroidism: (7) Leg edema: (8) Hydronephrosis, right: (9) COPD (chronic obstructive pulmonary disease): Plan This is a 72yo F with a PMH of history of B12 deficiency, C. difficile infection, COPD, hypothyroidism, pulmonary hypertension and other medical problems listed below who presents with generalized weakness and recurrent falls at home. Patient with recurrent admissions this summer (fourth since August, most recently admitted 10/12-10/21) for dizziness, generalized weakness, severe protein calorie malnutrition and weight loss of 25 lbs in 1 month as well as R hydronephrosis, ongoing diarrhea and BLE edema. Generalized weakness Frequent falls Ongoing for the past several weeks Seen by PT/OT last admission, felt ok to return home but feels weaker again with ongoing persisent diarrhea, BLE edema Fall precautions, PT/OT again, likely to benefit from rehab Continue folate supplementation Diarrhea Noted positive C. difficile gene on 09/30 with negative toxin. Outpatient study revealed apositive toxin. Completing PO vanco course tomorrow per GI rec last admission(missed dose today) H/o recent norovirus on stool studies but per ID, this is not an active infection, but it is more likely that she just hasn't cleared the remnants of virus KUB with nonobstructive bowel gas pattern. Mild to moderate colonic fecal retention Holding Linzess for now GI consulted Hydronephrosis, right Present since August 2022 Lasix emptying study done by urology as an outpatient which shows severe obstruction It is recommended by urologist that she could undergo cystoscopy with trial stent placement Scheduled to follow-up with urology next month Afebrile, renal function at baseline Weight loss Adequate appetite - thought to possibly be related to malabsorption vs malignancy on previous admission, EGD biopsy unremarkable Cholestyramine was stopped by GI as it may be inhibiting absorption of her Synthroid medication and contributing to constipation and leg edema and directly Started Linzess but patient considered about significant expense of medication Continue folate supplementation BLE edema Worsening peripheral edema and anasarca on CT abd/pelvis over last few weeks Echo 09/26/2022-EF 55 to 60%, right atrium moderately dilated, moderate tricuspid regurgitation, mild pulmonary hypertension Received IV Lasix 20 mg in the ED previous admission, but given ongoing diarrhea, will hold on additional diuretics at this time Place SCDs, obtaining bilateral venous dopplers to evaluate for DVT Postsurgical hypothyroidism Free T4 0.85 within range Continue increased dose of levothyroxine 100mcg Also had incidental finding of neck adenopathy on carotid Doppler during previous admission, needs outpatient ultrasound-guided FNA PSVT (paroxysmal supraventricular tachycardia) Also with history of bradycardia with HR 44 on admission. Hold beta jenn for now, monitor on telemetry Folate deficiency Folate mildly low 4.91, normal vitamin B12 on previous admission Cont replacement DVT Ppx: SQ lovenox Code status: FULL PCP: Erasto Dispo: Admitted to med tele Patient seen in collaboration with Dr. Palmer. Please see addendum. History of Present Illness Chief Complaint: diarrhea, weakness Primary Care Provider: Hayes Maurer DO This is a 72yo F with a PMH of history of B12 deficiency, C. difficile infection, COPD, hypothyroidism, pulmonary hypertension and other medical problems listed below who presents with generalized weakness and recurrent falls at home. Patient with recurrent admissions this summer (fourth since August, most recently admitted 10/12-10/21) for dizziness, generalized weakness, severe protein calorie malnutrition and weight loss of 25 lbs in 1 month as well as R hydronephrosis, ongoing diarrhea and BLE edema. Per chart review: Workup for generalized weakness and lightheadedness: was appropriately treated for B12 deficiency, MRIs of C spine negative for gross cord compression, underwent brain MRI in September that was negative for acute stroke, negative chest CT for lung mass due to malignancy suspicion. For R hydronephrosis present since September, patient underwent a Lasix emptying study done by urology as an outpatient which shows severe obstruction a few months ago.Underwent CTA abdomen pelvis in July 2022 which was negative, did reveal mal positioned right kidney with pelvocaliectasis. Recommended by urologist that to undergo cystoscopy with trial stent placement. Scheduled to follow-up with urology next month. For ongoing diarrhea, found to have c diff positive for toxin on outpatient labs 10/12 but repeat c diff gene positive toxin negative in [place]. Completing treatment for possible c diff tomorrow. Underwent EGD earlier this month with unremarkable biopsy. Colonoscopy notable for poor prep. Evidence of constipation with overflow diarrhea on CT abd/pelvis. Per GI, discontinue cholestyramine and started on Linzess. Previously positive for norovirus on stool culture but no treatment indicated per ID- felt that this is no longer an active infection but still clearing virus in stool. Hopeful improvement of diarrhea once thyroid corrected (TSH elevated, levothyroxine increased to 100mcg on previous admission). Carotid ultrasound incidentally showed thyroid adenopathy and outpatient ultrasound-guided FNA was recommended. For monthlong worsening of lower extremity edema and anasarca on CT, likely related to malabsorption. Hypothyroidism also possibly contributing. Echo from September with preserved EF, R atrium moderately dilated, moderate tricuspid regurgitation, mild pulm HTN. No diuretics continued due to ongoing diarrhea. Since discharge home 3 days ago, patient continues to be profoundly weak with multiple falls. Denies head trauma. Continuing to feel dizzy with lightheadedness. Good appetite and PO intake but profuse diarrhea, ongoing fecal incontinence since. No fever, chills, headache, nausea, vomiting, CP or SOB. Abdominal swelling continues and seems worse, per patient. Always feels bloated. Feels weak and unable to safely remain at home. Continues to smoke 1/4 pack or less a day. Allergies Allergy/AdvReac Type Severity Reaction Status Date / Time adhesive tape Allergy Unknown Redness of Verified 10/24/22 16:26 Skin morphine Allergy Unknown shock, Verified 10/17/22 08:28 dspnea neomycin Allergy Unknown Unknown Verified 10/24/22 16:26 Home Medications Medication Instructions Recorded Confirmed Type metoprolol succinate 25 mg 12.5 mg PO DAILY #15 tabs 08/22/22 10/24/22 Rx tablet,extended release 24 hr oxybutynin chloride 5 mg 5 mg PO QAM 09/25/22 10/24/22 History tablet,extended release 24 hr ipratropium 0.5 mg-albuterol 3 mg 3 ml NEB QIDR PRN shortness of 10/01/22 10/24/22 Rx (2.5 mg base)/3 mL nebulization breath or wheezing 30 days #90 mL soln pantoprazole 40 mg tablet,delayed 40 mg PO QAM 30 days #30 tabs 10/01/22 10/24/22 Rx release famotidine 40 mg tablet 40 mg PO HS PRN Heartburn 10/12/22 10/24/22 History linaclotide 145 mcg capsule 145 mcg PO DAILY #30 caps 10/17/22 10/24/22 Rx (Linzess) vancomycin 125 mg capsule 125 mg PO Q6H #12 caps 10/17/22 10/24/22 Rx levothyroxine 100 mcg tablet 100 mcg PO DAILY #30 tabs 10/20/22 10/24/22 Rx (Synthroid) loperamide 2 mg capsule 2 mg PO UD PRN diarrhea #30 caps 10/20/22 10/24/22 Rx Past Med/Surg History Medical History (Updated 10/24/22 @ 18:07 by Maxine Harper PA-C) COPD (chronic obstructive pulmonary disease) Postsurgical hypothyroidism PSVT (paroxysmal supraventricular tachycardia) Reflux esophagitis Vitamin D deficiency Surgical History Hx of colonoscopy Hx of lumbosacral spine surgery x3 Hx of thyroidectomy Family History Other Breast cancer Social History Smoking Status: Current every day smoker Tobacco Type: Cigarettes Cigarettes Per Day: 1 pack a week; Second Hand Exposure: Yes; Do You Dip or Chew Tobacco: No; Hx Alcohol Use: No Hx Substance Use: No Preferred Language: Irish Communication Ability: Effective Mottler Operator Required: No Beliefs That Will Affect Care: None Current Living Situation: Spouse Feels Safe at Home: Yes Assistive Devices: Cane Review of Systems Review of Systems: At least ten systems reviewed and negative except as noted in the HPI. Physical Exam Physical Exam: Please see Dr. Palmer' addendum for physical exam. Results & Data Results & Data Vital Signs (Past 12 Hours) Vital Signs Pulse Pulse Resp BP BP Pulse Ox O2 Del Method 10/24/22 15:04 58 L 26 H 116/74 100 Room Air 10/24/22 10:23 53 L 20 95/58 L 95 Room Air Laboratory Results Short CBC 10/24/22 Range/Units 11:13 WBC 5.02 (4.8-10.8) K/ul Hgb 10.9 L (12.0-16.0) g/dl Hct 34.3 L (37.0-47.0) % Plt Count 196 (130-400) K/uL BMP 10/24/22 11:13 Sodium 140 Potassium 3.4 L Chloride 105 Carbon Dioxide 29 BUN 22 Creatinine 0.84 Glucose 72 Calcium 8.9 Liver Function 10/24/22 Range/Units 11:13 Total Bilirubin 1.2 H (0.2-1.0) mg/dl AST 30 (13-39) U/L ALT 43 (7-52) U/L Alkaline Phosphatase 100 (34-104) U/L Albumin 3.7 (3.4-5.0) gm/dl Diagnostic Findings Chest X-Ray 10/24/22 10:52 XR chest 1V not portable CLINICAL HISTORY: b/l leg swelling TECHNIQUE: Single frontal radiograph of the chest was obtained. Comparison: Comparison is made to chest radiograph 10/12/2022 FINDINGS: No lines and tubes are seen. Calcified aortic knob is seen. Posterior fixation hardware is seen in the lumbar spine. The lungs are clear. No evidence of pleural effusion or pneumothorax. IMPRESSION: No acute chest disease. ACT 112: Negative or not required by law. Electronically signed by: Trent Woodruff M.D. 10/24/2022 12:10 PM KUB X-Ray 10/24/22 16:21 KUB HISTORY: Acute transabdominal pain with distention abd distention, uropathy in past COMPARISON: CT 10/12/2022 FINDINGS: Nonobstructive bowel gas pattern. Mild to moderate colonic fecal retention. Nephrolithiasis is better seen on the comparison CT study. No ureteral calculi identified. No pneumoperitoneum or pneumatosis. Degenerative and postoperative changes of the lumbar spine. No fracture. IMPRESSION: 1. Nonobstructive bowel gas pattern. 2. Nephrolithiasis better seen on the comparison CT study. No ureteral calculi identified. ACT 112: Negative or not required by law. The above report was generated using voice recognition software. It may contain grammatical, syntax or spelling errors. Electronically signed by: Patrick Jacobsen M.D. 10/24/2022 4:58 PM Code Status & VTE Plan VTE Prophylaxis Plan VTE Prophylaxis will be ordered: Yes Supervising Physician Co-Signing Physician Notes I was present with Good LOPEZ during the history and exam. I discussed the case with Good LOPEZ and agree with the findings and plan as documented in the H&P. In short, Ms. Funk is a 72 year old woman with multiple comorbidities presenting with failure to thrive, persistent diarrhea, progressive lower extremity edema, and falls. Patient has undergone extensive workup for gastric concerns, has urologic evaluation pending for chronic right hydronephrosis, and completed cardiac/pulm evaluation for peripheral edema. Patient is quite cachetic on exam with noted pitting edema to gluteal fold bilaterally. Patient appears to have little insight into medical condition, but after long discussion appears to be willing to participate in possible rehab. Plan for PT/OT eval, GI consulted, noted history of bradycardia (consider consult for tachy-jair? with cardiology in am) monitor on telemetry/hold BB.
[2022-10-24 15:49] LABS: Thyroid Stimulating Hormone 32.058 uIu/ml (0.300-4.500)
[2022-10-24 15:50] LABS: Partial Thromboplastin Ratio 1.1; Partial Thromboplastin Time 29.8 Seconds (21.0-31.0); Prothrombin Time 10.7 Seconds (9.0-12.0)
[2022-10-24 16:24] LABS: T4 Free Thyroxine 0.85 ng/dl (0.61-1.60)
[2022-10-24] MEDS ORDERED: RASPBERRY SYRUP 5 ML UDP PO STA (16:28)
[2022-10-24] MEDS ORDERED: VANCOMYCIN HCL 125 MG/2.5ML SOLN PO STA (16:31)
--- NOTE | 2022-10-24 17:00 | XRay Report ---
KUB HISTORY: Acute transabdominal pain with distention abd distention, uropathy in past COMPARISON: CT 10/12/2022 FINDINGS: Nonobstructive bowel gas pattern. Mild to moderate colonic fecal retention. Nephrolithiasi s is better seen on the comparison CT study. No ureteral calculi identified. No pneumoperitoneum or p neumatosis. Degenerative and postoperative changes of the lumbar spine. No fracture. IMPRESSION: 1. Nonobstructive bowel gas pattern. 2. Nephrolithiasis better seen on the comparison CT study. No ureteral calculi identified. ACT 112: Negative or not required by law. The above report was generated using voice recognition software. It may contain grammatical, syntax o r spelling errors. Electronically signed by: Patrick Jacobsen M.D. 10/24/2022 4:58 PM
[2022-10-24] MEDS ORDERED: LACTATED RINGER'S 500 ML IV ONE (19:35)
[2022-10-24] MEDS ORDERED: ALBUT/IPRATROP 3MG/0.5MG NEB 3 ML VIAL NEB PRN (20:28)
[2022-10-24] MEDS ORDERED: ONDANSETRON INJ 2 MG/ML 2 ML VIAL IV PRN (20:28)
[2022-10-24] MEDS ORDERED: ENOXAPARIN INJ 40 MG/0.4 ML SYR SQ SCH ×2 (20:28→21:30)
[2022-10-24] MEDS ORDERED: POTASSIUM CHLORIDE PWD 20 MEQ PACK PO STA (20:28)
[2022-10-24] MEDS ORDERED: FAMOTIDINE 40 MG TABLET PO PRN (20:28)
[2022-10-24] MEDS ORDERED: Patient's HEIGHT &/or WEIGHT Needed SCH (20:45)
[2022-10-24] MEDS ORDERED: HEPARIN SOD 5,000 UNIT/0.5 ML VIAL SQ ONE (21:30)
[2022-10-24] MEDS: VANCOMYCIN HCL 125 MG/2.5ML SOLN PO SCH (23:30)
[2022-10-25] MEDS: RASPBERRY SYRUP 5 ML UDP PO SCH ×3 (00:10→11:20)
[2022-10-25] MEDS: ACETAMINOPHEN 325 MG TAB PO PRN (04:42)
[2022-10-25] MEDS: LEVOTHYROXINE SODIUM 100 MCG TABLET PO SCH (05:37)
[2022-10-25] MEDS: HEPARIN SOD 5,000 UNIT/0.5 ML VIAL SQ SCH ×3 (05:38→22:08)
[2022-10-25] MEDS: VANCOMYCIN HCL 125 MG/2.5ML SOLN PO SCH ×2 (05:38→11:20)
--- NOTE | 2022-10-25 05:55 | Electrocardiogram Report ---
Test Reason : Blood Pressure : / mmHG Vent. Rate : 054 BPM Atrial Rate : 054 BPM P-R Int : 202 ms QRS Dur : 088 ms QT Int : 502 ms P-R-T Axes : 086 094 067 degrees QTc Int : 476 ms Sinus bradycardia Rightward axis Septal infarct (cited on or before 20-AUG-2022) Abnormal ECG When compared with ECG of 12-OCT-2022 13:49, Premature ventricular complexes are no longer Present Confirmed by Narayan Rivera ([id number]) on 10/25/2022 5:55:04 AM Referred By: Confirmed By:Narayan Rivera
--- NOTE | 2022-10-25 06:57 | Ultrasound Report ---
BILATERAL LOWER EXTREMITY VENOUS DOPPLER HISTORY: Acute pain and swelling of the lower legs. BLE edema, eval for dvt COMPARISON STUDY: None. FINDINGS: Subcutaneous edema. There is normal compressibility, flow, and augmentation within the bila teral lower extremity deep venous systems. IMPRESSION: No DVT within the right or left lower extremity. ACT 112: Negative or not required by law. Electronically signed by: Patrick Jacobsen M.D. 10/25/2022 6:55 AM
[2022-10-25 07:13] LABS: Hematocrit (blood only) 28.1 % (37.0-47.0); Mean Corpuscular Hemoglobin 31.7 pg (25.0-34.0); Mean Corpuscular Volume 98.9 fL (80.0-100.0); Mean Platelet Volume 10.3 fL (9.4-12.4); Platelet Count 161 K/uL (130-400); RDW Coefficient of Variation 17.2 % (11.5-14.5); RDW Standard Deviation 62.7 fL (36.4-46.3); Red Blood Count 2.84 M/uL (4.20-5.40); White Blood Count 3.57 K/ul (4.8-10.8)
[2022-10-25] MEDS: OXYBUTYNIN CHLORIDE XL 5 MG TABCR PO SCH (07:38)
[2022-10-25] MEDS: PANTOprazole 40 MG TAB PO SCH (07:38)
[2022-10-25 08:19] LABS: Albumin Globulin Ratio 1.3 (0.9-2); Albumin Level 2.8 gm/dl (3.4-5.0); BUN Creatinine Ratio 28.6 (10-20); Bilirubin,Total 0.7 mg/dl (0.2-1.0); Calcium 8.1 mg/dl (8.6-10.3); Creatinine Clr Calc Pharmacy 49.1 ml/min; Est GFR (African American) 100.3 ml/min; Est GFR (Non-African American) 86.6 ml/min; Globulin 2.2 gm/dl (2.5-4.0); Potassium 3.9 mmol/L (3.5-5.1)
--- NOTE | 2022-10-25 10:56 | Gastrointestinal Consultation ---
Date of Consultation October 25, 2022 Assessment & Plan (1) Diarrhea: Pt is a 72 yo female seen for diarrhea and abd distension. On exam today, abd soft, non tender, BS present. She reports no BMs since admitted. In the past had hx of Cdiff infection and Norovirus + stools. Seen by ID and not suspected to carrizales ve active Norovirus, but viral shedding in stools may still be going on. She was given 10 days course of Vancomycin for empiric treatment of Cdiff. Abdominal imaging studies had also noted fecal retention and thus overflow diarrhea 2/2 constipation had been suspected. She has had recent EGD and colonoscopy in the last month wo etiology found for her diarrhea. - Diet at tolerated - Repeat stool studies if diarrhea occurs while admitted - Complete Vancomycin course per ID's direction - Defer hypothyroid management (TSH 33) per primary team - Pls recall GI prn Supervising Physician Co-Signing Physician Notes I have personally seen and examined the patient with FARTUN Herring. Her note reflects my exam and findings. I agree with her impression and plan. Colonoscopy with bxs reviewed from last week. Normal colon bxs w/o signs of infection or colitis. Michael Alejandro M.D. History of Present Illness Reason for Consultation: Diarrhea, abd distension Requesting Physician: Dr. Yvan Rodriguez Attending Physician: Dr. Michael Alejandro History of Present Illness Pt is a 72 yo female w PMHx of COPD, hypothyroidism, pulmonary HTN, tobacco abuse, B12 deficiency, Cdiff and Norovirus infections who presented generalized weakness and recurrent falls. GI consulted for diarrhea and abd distension symptoms. Pt reports multiple loose stools prior to admission but no BMs since admission. Denies fever, chills, abd pain, n/v, rectal bleeding. Good appetite, wants liquid diet to be changed to solids. Stool studies results: 09/30/2022: Cdiff gene +, toxin - ([facility]) 10/12/2022: Cdiff + ([facility]) 10/13/2022: Cdiff - ([facility]) Norovirus + stools 08/19, 09/15, 10/13. Pt had been evaluated by ID during last visit and suspected that pt doesn't have active Norovirus infection but rather shedding virus in stools. She was to complete 10 days course of Vancomycin for possible Cdiff infection. Prior EGD and colonoscopy unremarkable study and path wo microscopic colitis or celiac sprue. She does have evidence of fecal retention on prior CT and KUB on admission, also poor prep quality on colonoscopy. Was tried on Linzess but held due to diarrhea. Also tried on Questran in the past, but this also has been dstopped. Allergies Allergy/AdvReac Type Severity Reaction Status Date / Time adhesive tape Allergy Unknown Redness of Verified 10/24/22 16:26 Skin morphine Allergy Unknown shock, Verified 10/17/22 08:28 dspnea neomycin Allergy Unknown Unknown Verified 10/24/22 16:26 Home Medications Medication Instructions Recorded Confirmed Type metoprolol succinate 25 mg 12.5 mg PO DAILY #15 tabs 08/22/22 10/24/22 Rx tablet,extended release 24 hr oxybutynin chloride 5 mg 5 mg PO QAM 09/25/22 10/24/22 History tablet,extended release 24 hr ipratropium 0.5 mg-albuterol 3 mg 3 ml NEB QIDR PRN shortness of 10/01/22 10/24/22 Rx (2.5 mg base)/3 mL nebulization breath or wheezing 30 days #90 mL soln pantoprazole 40 mg tablet,delayed 40 mg PO QAM 30 days #30 tabs 10/01/22 10/24/22 Rx release famotidine 40 mg tablet 40 mg PO HS PRN Heartburn 10/12/22 10/24/22 History linaclotide 145 mcg capsule 145 mcg PO DAILY #30 caps 10/17/22 10/24/22 Rx (Linzess) vancomycin 125 mg capsule 125 mg PO Q6H #12 caps 10/17/22 10/24/22 Rx levothyroxine 100 mcg tablet 100 mcg PO DAILY #30 tabs 10/20/22 10/24/22 Rx (Synthroid) loperamide 2 mg capsule 2 mg PO UD PRN diarrhea #30 caps 10/20/22 10/24/22 Rx Patient History Medical History COPD (chronic obstructive pulmonary disease) Postsurgical hypothyroidism PSVT (paroxysmal supraventricular tachycardia) Reflux esophagitis Vitamin D deficiency Surgical History Hx of colonoscopy Hx of lumbosacral spine surgery x3 Hx of thyroidectomy Family History Other Breast cancer Social History Smoking Status: Current every day smoker Tobacco Type: Cigarettes Cigarettes Per Day: 1 pack a week; Second Hand Exposure: Yes; Do You Dip or Chew Tobacco: No; Hx Alcohol Use: No Hx Substance Use: No Preferred Language: Salvadorean Communication Ability: Effective Balance Truing Inspector Required: No Beliefs That Will Affect Care: None Current Living Situation: Spouse Current Living Situation Comment: home Feels Safe at Home: Yes Safety Concerns: Feels Safe At This Time Assistive Devices: Cane Review of Systems Review of Systems: All systems reviewed & are unremarkable except as noted in HPI & below Physical Exam Constitutional: + thin, well groomed, cooperative and comfortable Eyes: PERRL, conjunctivae normal, anicteric sclerae ENMT: external ear and nose normal, oropharynx normal Respiratory: normal respiratory effort, lungs clear to auscultation Cardiovascular: RRR, no murmur, no edema Gastrointestinal (Abdomen): normal bowel sounds, soft, nontender, no hepatosplenomegaly Skin: no rashes, warm and dry no jaundice Psychiatric: A+Ox3, euthymic affect Lymphatic: no lymphedema Results & Data Vital Signs (Past 12 Hours) Vital Signs Temp Pulse Pulse Resp BP BP Pulse Ox 10/25/22 09:37 51 L 10/25/22 07:44 49 L 18 69/42 L 98 10/24/22 23:09 60 10/25/22 04:02 66 18 85/52 L 97 10/25/22 04:56 36.4 C 10/25/22 00:41 O2 Del Method 10/25/22 09:37 10/25/22 07:44 Room Air 10/24/22 23:09 10/25/22 04:02 Room Air 10/25/22 04:56 10/25/22 00:41 Room Air
[2022-10-25] MEDS: D5NSS + 20MEQ KCL 20 MEQ/1,000 ML BAG IV SCH ×2 (11:19→20:32)
[2022-10-25] MEDS ORDERED: CHERRY SYRUP 5 ML UDP PO SCH (12:00)
--- NOTE | 2022-10-25 16:18 | Hospitalist Progress Note ---
Date of Service October 25, 2022 Assessment & Plan (1) Generalized weakness: (2) Weight loss: (3) C. difficile diarrhea: (4) PSVT (paroxysmal supraventricular tachycardia): (5) Bradycardia: (6) Postsurgical hypothyroidism: (7) Leg edema: (8) Hydronephrosis, right: (9) COPD (chronic obstructive pulmonary disease): Plan This is a 72yo F with a PMH of history of B12 deficiency, C. difficile infection, COPD, hypothyroidism, pulmonary hypertension and other medical problems listed below who presents with generalized weakness and recurrent falls at home. Patient with recurrent admissions this summer (fourth since August, most recently admitted 10/12-10/21) for dizziness, generalized weakness, severe protein calorie malnutrition and weight loss of 25 lbs in 1 month as well as R hydronephrosis, ongoing diarrhea and BLE edema. Generalized weakness Frequent falls Ongoing for the past several weeks Seen by PT/OT last admission, felt ok to return home but feels weaker again with ongoing persisent diarrhea, BLE edema Fall precautions, PT/OT again, likely to benefit from rehab Has had diarrhea and got dizzy with ambulation and it avoid falls No loss of consciousness and no significant injury Has been feeling much better since admission Diarrhea Noted positive C. difficile gene on 09/30 with negative toxin. Outpatient study revealed apositive toxin. Completing PO vanco course tomorrow per GI rec last admission(missed dose today) H/o recent norovirus on stool studies but per ID, this is not an active infection, but it is more likely that she just hasn't cleared the remnants of virus KUB with nonobstructive bowel gas pattern. Mild to moderate colonic fecal retention Holding Linzess for now GI consulted -appreciate input and recommendation Diarrhea seems to be improving Hydronephrosis, right Present since August 2022 Lasix emptying study done by urology as an outpatient which shows severe obstruction It is recommended by urologist that she could undergo cystoscopy with trial sten t placement Scheduled to follow-up with urology next month Afebrile, renal function at baseline Severe protein calorie malnutrition with Weight loss Adequate appetite - thought to possibly be related to malabsorption vs malignancy on previous admission, EGD biopsy unremarkable Cholestyramine was stopped by GI as it may be inhibiting absorption of her Synthroid medication and contributing to constipation and leg edema and directly Started Linzess but patient considered about significant expense of medication Continue folate supplementation Advised to eat and drink more BLE edema Worsening peripheral edema and anasarca on CT abd/pelvis over last few weeks Echo 09/26/2022-EF 55 to 60%, right atrium moderately dilated, moderate tricuspid regurgitation, mild pulmonary hypertension Received IV Lasix 20 mg in the ED previous admission, but given ongoing diarrhea, will hold on additional diuretics at this time Place SCDs, obtaining bilateral venous dopplers to evaluate for DVT -no evidence of deep venous thrombosis Advised to elevating legs while in bed and increase ambulation Postsurgical hypothyroidism Free T4 0.85 within range Continue increased dose of levothyroxine 100mcg Also had incidental finding of neck adenopathy on carotid Doppler during previous admission, needs outpatient ultrasound-guided FNA PSVT (paroxysmal supraventricular tachycardia) Also with history of bradycardia with HR 44 on admission. Hold beta jenn for now, monitor on telemetry Folate deficiency Folate mildly low 4.91, normal vitamin B12 on previous admission Cont replacement DVT Ppx: SQ lovenox Code status: FULL PCP: Erasto Dispo: Admitted to [facility] Admission and Anticipated Discharge Date Admission Date: October 24, 2022 Subjective 10/25/2022 The patient was seen and examined in medical telemetry unit She was admitted with generalized weakness and frequent falls Has had diarrhea before the incidence Denies any symptoms since admission A stroke alert was called this afternoon but that was called off without any evidence of a stroke symptoms Review of Systems Review of Systems: All systems reviewed and are unremarkable except as noted below Physical Exam Physical Exam: Sitting on a chair without any acute distress Constitutional: + ill appearing and + thin Eyes: PERRL, conjunctivae normal, anicteric sclerae ENMT: external ear and nose normal, oropharynx normal Neck: trachea midline, no thyromegaly Respiratory: no respiratory distress Auscultation: + diminished lung sounds; no crackles Cardiovascular: Rate/Rhythm: regular rate and regular rhythm; not tachycardic Heart Sounds: normal S1, normal S2 and + murmur Extremities: + edema (1+ edema bilaterally) Gastrointestinal (Abdomen): Inspection/Auscultation: normal bowel sounds; abdomen not distended Percussion/Palpation: abdomen soft; abdomen nontender Musculoskeletal: No acute arthritis involving any joint Neurologic: normal touch/pain/proprioception and moves all extremities; no focal motor deficits Generally very weak and lethargic Lymphatic: no cervical or axillary lymphadenopathy Results & Data Results & Data Vital Signs (Past 12 Hours) Vital Signs Temp Pulse Pulse Resp BP BP Pulse Ox 10/25/22 15:17 36.4 C L 62 20 102/68 100 10/25/22 15:16 73 10/25/22 12:21 36.3 C L 60 18 83/50 L 99 10/25/22 11:45 10/25/22 09:37 51 L 10/25/22 07:44 49 L 18 69/42 L 98 10/25/22 04:56 36.4 C O2 Del Method 10/25/22 15:17 Room Air 10/25/22 15:16 10/25/22 12:21 Room Air 10/25/22 11:45 Room Air 10/25/22 09:37 10/25/22 07:44 Room Air 10/25/22 04:56 Laboratory Results Short CBC 10/25/22 Range/Units 06:18 WBC 3.57 L (4.8-10.8) K/ul Hgb 9.0 L (12.0-16.0) g/dl Hct 28.1 L (37.0-47.0) % Plt Count 161 (130-400) K/uL BMP 10/25/22 06:18 Sodium 141 Potassium 3.9 Chloride 110 H Carbon Dioxide 27 BUN 20 Creatinine 0.70 Glucose 151 H Calcium 8.1 L Liver Function 10/25/22 Range/Units 06:18 Total Bilirubin 0.7 D (0.2-1.0) mg/dl AST 16 (13-39) U/L ALT 28 (7-52) U/L Alkaline Phosphatase 75 (34-104) U/L Albumin 2.8 L (3.4-5.0) gm/dl Medications Administered Current Inpatient Medications Acetaminophen (Acetaminophen 325 Mg Tab) 650 mg PO Q4H PRN PRN Reason: Pain or Fever Stop: 11/23/22 20:27 Last Admin: 10/25/22 04:42 Dose: 650 mg Albuterol (Albut/Ipratrop 3mg/0.5mg Neb 3 Ml Vial) 3 ml NEB QIDR PRN; Protocol PRN Reason: shortness of breath or wheezing Stop: 11/23/22 20:27 Famotidine (Famotidine 40 Mg Tablet) 40 mg PO HS PRN PRN Reason: Heartburn Stop: 11/23/22 20:27 Heparin Sodium (Porcine) (Heparin Sod 5,000 Unit/0.5 Ml Vial) 5,000 units SQ Q8 [facility] Stop: 11/24/22 05:59 Last Admin: 10/25/22 14:07 Dose: 5,000 units Potassium Chloride/Dextrose/Sod Cl (D5nss + 20meq Kcl) 20 meq in 1,000 mls @ 150 mls/hr IV .Q6H40M [facility]; Protocol Stop: 10/25/22 21:19 Last Admin: 10/25/22 11:19 Dose: 150 mls/hr Levothyroxine Sodium (Levothyroxine Sodium 100 Mcg Tablet) [facility] Stop: 11/24/22 06:29 Last Admin: 10/25/22 05:37 Dose: 100 mcg Ondansetron HCl (Ondansetron Inj 2 Mg/Ml 2 Ml Vial) 4 mg IV Q6H PRN PRN Reason: Nausea Stop: 11/23/22 20:27 Oxybutynin Chloride (Oxybutynin Chloride Xl 5 Mg Tabcr) 5 mg PO [facility] Stop: 11/24/22 08:59 Last Admin: 10/25/22 07:38 Dose: 5 mg Pantoprazole Sodium (Pantoprazole 40 Mg Tab) 40 mg PO [facility] Stop: 11/24/22 08:59 Last Admin: 10/25/22 07:38 Dose: 40 mg
[2022-10-25 16:28] LABS: Basophils # (auto) 0.02 K/uL (0-0.2); Basophils % (auto) 0.5 %; Eosinophils # (auto) 0.04 K/uL (0-0.50); Hematocrit (blood only) 29.9 % (37.0-47.0); Hemoglobin 9.5 g/dl (12.0-16.0); Immature Granulocytes # (auto) 0.02 K/uL (0.01-0.20); Immature Granulocytes % (auto) 0.5 %; Lymphocytes # (auto) 0.74 K/uL (1.2-3.4); Lymphocytes % (auto) 17.9 %; Mean Corpuscular Hemoglobin 31.8 pg (25.0-34.0); Mean Corpuscular Hgb Conc 31.8 g/dL (32.0-36.0); Monocytes # (auto) 0.35 K/uL (0.11-0.59); Monocytes % (auto) 8.5 %; Neutrophils # (auto) 2.96 K/uL (1.40-6.50); Neutrophils % (auto) 71.6 %; Platelet Count 188 K/uL (130-400); RDW Coefficient of Variation 17.4 % (11.5-14.5); RDW Standard Deviation 64.7 fL (36.4-46.3); Red Blood Count 2.99 M/uL (4.20-5.40); White Blood Count 4.13 K/ul (4.8-10.8)
[2022-10-25 16:50] LABS: Albumin Globulin Ratio 1.3 (0.9-2); Albumin Level 3.2 gm/dl (3.4-5.0); BUN Creatinine Ratio 19.4 (10-20); Bilirubin,Total 0.7 mg/dl (0.2-1.0); Calcium 7.9 mg/dl (8.6-10.3); Creatinine Clr Calc Pharmacy 33.4 ml/min; Est GFR (African American) 62.9 ml/min; Est GFR (Non-African American) 54.3 ml/min; Globulin 2.5 gm/dl (2.5-4.0); Magnesium 2.1 mg/dl (1.7-2.4); Total Protein 5.7 gm/dl (6.0-8.3)
--- NOTE | 2022-10-25 18:18 | Electrocardiogram Report ---
Test Reason : Blood Pressure : / mmHG Vent. Rate : 067 BPM Atrial Rate : 067 BPM P-R Int : 202 ms QRS Dur : 092 ms QT Int : 416 ms P-R-T Axes : 089 089 085 degrees QTc Int : 439 ms Poor data quality, interpretation may be adversely affected Normal sinus rhythm Low voltage QRS Borderline ECG When compared with ECG of 24-OCT-2022 11:11, Nonspecific T wave abnormality now evident in Inferior leads Confirmed by Naraayn Rivera ([id number]) on 10/25/2022 6:18:25 PM Referred By: REFERRED SELF Confirmed By:Narayan Rivera
[2022-10-26] MEDS: HEPARIN SOD 5,000 UNIT/0.5 ML VIAL SQ SCH ×3 (06:15→21:12)
[2022-10-26] MEDS: LEVOTHYROXINE SODIUM 100 MCG TABLET PO SCH (06:16)
[2022-10-26 06:30] LABS: Hematocrit (blood only) 28.4 % (37.0-47.0); Hemoglobin 9.1 g/dl (12.0-16.0); Mean Corpuscular Hemoglobin 31.6 pg (25.0-34.0); Mean Corpuscular Volume 98.6 fL (80.0-100.0); Mean Platelet Volume 9.9 fL (9.4-12.4); Platelet Count 171 K/uL (130-400); RDW Coefficient of Variation 17.3 % (11.5-14.5); RDW Standard Deviation 63.7 fL (36.4-46.3); Red Blood Count 2.88 M/uL (4.20-5.40); White Blood Count 3.49 K/ul (4.8-10.8)
[2022-10-26 07:19] LABS: Albumin Globulin Ratio 1.2 (0.9-2); Albumin Level 2.7 gm/dl (3.4-5.0); Bilirubin,Total 0.6 mg/dl (0.2-1.0); Calcium 7.7 mg/dl (8.6-10.3); Creatinine Clr Calc Pharmacy 53.7 ml/min; Est GFR (African American) 103.3 ml/min; Est GFR (Non-African American) 89.2 ml/min; Globulin 2.3 gm/dl (2.5-4.0); Potassium 3.8 mmol/L (3.5-5.1)
[2022-10-26] MEDS: OXYBUTYNIN CHLORIDE XL 5 MG TABCR PO SCH (07:29)
[2022-10-26] MEDS: PANTOprazole 40 MG TAB PO SCH (07:30)
--- NOTE | 2022-10-26 11:53 | XRay Report ---
XR hip LT min 2V CLINICAL HISTORY: R/O Fracture. Left hip pain. COMPARISON STUDY: None. FINDINGS: There is a nondisplaced intertrochanteric fracture within the proximal left femur. No dislo cation. The visualized pelvic bones are intact. Soft tissues are unremarkable. IMPRESSION: Nondisplaced intertrochanteric fracture within the proximal left femur. ACT 112: Negative or not required by law. Electronically signed by: Morris Lal M.D. 10/26/2022 11:52 AM
--- NOTE | 2022-10-26 14:07 | Hospitalist Progress Note ---
Date of Service October 26, 2022 Assessment & Plan (1) Generalized weakness: (2) Weight loss: (3) C. difficile diarrhea: (4) PSVT (paroxysmal supraventricular tachycardia): (5) Bradycardia: (6) Postsurgical hypothyroidism: (7) Leg edema: (8) Hydronephrosis, right: (9) COPD (chronic obstructive pulmonary disease): (10) Fracture of hip, left, closed: Plan This is a 72yo F with a PMH of history of B12 deficiency, C. difficile infection, COPD, hypothyroidism, pulmonary hypertension and other medical problems listed below who presents with generalized weakness and recurrent falls at home. Patient with recurrent admissions this summer (fourth since August, most recently admitted 10/12-10/21) for dizziness, generalized weakness, severe protein calorie malnutrition and weight loss of 25 lbs in 1 month as well as R hydronephrosis, ongoing diarrhea and BLE edema. Generalized weakness Frequent falls Ongoing for the past several weeks Seen by PT/OT last admission, felt ok to return home but feels weaker again with ongoing persisent diarrhea, BLE edema Fall precautions, PT/OT again, likely to benefit from rehab Has had diarrhea and got dizzy with ambulation and it avoid falls No loss of consciousness and no significant injury Has been feeling much better since admission We will get PT and OT evaluation following management of fracture Intertrochanteric fracture of left hip Will consult orthopedic surgeon for further evaluation and management Likely secondary to osteoporosis with recent fall Diarrhea Noted positive C. difficile gene on 09/30 with negative toxin. Outpatient study revealed apositive toxin. Completing PO vanco course tomorrow per GI rec last admission(missed dose today) H/o recent norovirus on stool studies but per ID, this is not an active infection, but it is more likely that she just hasn't cleared the remnants of virus KUB with nonobstructive bowel gas pattern. Mild to moderate colonic fecal retention Holding Linzess for now GI consulted -appreciate input and recommendation Diarrhea seems to be improving Hydronephrosis, right Present since August 2022 Lasix emptying study done by urology as an outpatient which shows severe obstruction It is recommended by urologist that she could undergo cystoscopy with trial stent placement Scheduled to follow-up with urology next month Afebrile, renal function at baseline Severe protein calorie malnutrition with Weight loss Adequate appetite - thought to possibly be related to malabsorption vs malignancy on previous admission, EGD biopsy unremarkable Cholestyramine was stopped by GI as it may be inhibiting absorption of her Synthroid medication and contributing to constipation and leg edema and directly Started Linzess but patient considered about significant expense of medication Continue folate supplementation Advised to eat and drink more Has been eating and drinking reasonably BLE edema Worsening peripheral edema and anasarca on CT abd/pelvis over last few weeks Echo 09/26/2022-EF 55 to 60%, right atrium moderately dilated, moderate tricuspid regurgitation, mild pulmonary hypertension Received IV Lasix 20 mg in the ED previous admission, but given ongoing diarrhea, will hold on additional diuretics at this time Place SCDs, obtaining bilateral venous dopplers to evaluate for DVT -no evidence of deep venous thrombosis Significant edema involving the legs-advised to elevate the legs while in bed and even when sitting down Lasix is not going to be helpful Postsurgical hypothyroidism Free T4 0.85 within range Continue increased dose of levothyroxine 100mcg Also had incidental finding of neck adenopathy on carotid Doppler during previous admission, needs outpatient ultrasound-guided FNA PSVT (paroxysmal supraventricular tachycardia) Also with history of bradycardia with HR 44 on admission. Hold beta jenn for now, monitor on telemetry Folate deficiency Folate mildly low 4.91, normal vitamin B12 on previous admission Cont replacement DVT Ppx: SQ lovenox Code status: FULL PCP: Erasto Dispo: Admitted to [facility] Admission and Anticipated Discharge Date Admission Date: October 24, 2022 Subjective 10/25/2022 The patient was seen and examined in medical telemetry unit She was admitted with generalized weakness and frequent falls Has had diarrhea before the incidence Denies any symptoms since admission A stroke alert was called this afternoon but that was called off without any evidence of a stroke symptoms 10/26/2022 The patient was seen and examined in medical telemetry unit She complains to have pain in the left hip with standing and with walking Has been eating reasonably and denies any other symptoms Review of Systems Review of Systems: All systems reviewed and are unremarkable except as noted below Physical Exam Physical Exam: Sitting on a chair without any acute distress Constitutional: + ill appearing and + thin Eyes: PERRL, conjunctivae normal, anicteric sclerae ENMT: external ear and nose normal, oropharynx normal Neck: trachea midline, no thyromegaly Respiratory: no respiratory distress Auscultation: + diminished lung sounds; no crackles Cardiovascular: Rate/Rhythm: regular rate and regular rhythm; not tachycardic Heart Sounds: normal S1, normal S2 and + murmur Extremities: + edema (1+ edema bilaterally) Gastrointestinal (Abdomen): Inspection/Auscultation: normal bowel sounds; abdomen not distended Percussion/Palpation: abdomen soft; abdomen nontender Musculoskeletal: Movement of the left lower extremity produces significant pain in the left hip Neurologic: normal touch/pain/proprioception and moves all extremities; no focal motor deficits Lymphatic: no cervical or axillary lymphadenopathy Results & Data Results & Data Vital Signs (Past 12 Hours) Vital Signs Temp Pulse Pulse Resp BP Pulse Ox O2 Del Method 10/26/22 12:05 36.3 C L 73 18 103/71 99 Room Air 10/26/22 07:44 36.4 C L 70 20 116/68 97 Room Air 10/26/22 07:22 79 10/26/22 04:29 36.3 C L 66 18 97/57 L 99 Room Air Laboratory Results Short CBC 10/25/22 10/26/22 Range/Units 16:09 05:59 WBC 4.13 L 3.49 L (4.8-10.8) K/ul Hgb 9.5 L 9.1 L (12.0-16.0) g/dl Hct 29.9 L 28.4 L (37.0-47.0) % Plt Count 188 171 (130-400) K/uL [facility] 10/25/22 10/26/22 16:09 05:59 Sodium 142 142 Potassium 4.0 3.8 Chloride 110 H 113 H Carbon Dioxide 27 27 BUN 20 16 Creatinine 1.03 D 0.64 D Glucose 93 79 Calcium 7.9 L 7.7 L Liver Function 10/25/22 10/26/22 Range/Units 16:09 05:59 Total Bilirubin 0.7 0.6 (0.2-1.0) mg/dl AST 19 33 (13-39) U/L ALT 31 37 (7-52) U/L Alkaline Phosphatase 85 83 (34-104) U/L Albumin 3.2 L 2.7 L (3.4-5.0) gm/dl Medications Administered Current Inpatient Medications Acetaminophen (Acetaminophen 325 Mg Tab) 650 mg PO Q4H PRN PRN Reason: Pain or Fever Stop: 11/23/22 20:27 Last Admin: 10/25/22 04:42 Dose: 650 mg Albuterol (Albut/Ipratrop 3mg/0.5mg Neb 3 Ml Vial) 3 ml NEB QIDR PRN; Protocol PRN Reason: shortness of breath or wheezing Stop: 11/23/22 20:27 Famotidine (Famotidine 40 Mg Tablet) 40 mg PO HS PRN PRN Reason: Heartburn Stop: 11/23/22 20:27 Heparin Sodium (Porcine) (Heparin Sod 5,000 Unit/0.5 Ml Vial) 5,000 units SQ Q8 [facility] Stop: 11/24/22 05:59 Last Admin: 10/26/22 13:24 Dose: Not Given Levothyroxine Sodium (Levothyroxine Sodium 100 Mcg Tablet) 100 mcg PO DAILYBB [facility] Stop: 11/24/22 06:29 Last Admin: 10/26/22 06:16 Dose: 100 mcg Ondansetron HCl (Ondansetron Inj 2 Mg/Ml 2 Ml Vial) 4 mg IV Q6H PRN PRN Reason: Nausea Stop: 11/23/22 20:27 Oxybutynin Chloride (Oxybutynin Chloride Xl 5 Mg Tabcr) 5 mg PO QAM [facility] Stop: 11/24/22 08:59 Last Admin: 10/26/22 07:29 Dose: 5 mg Pantoprazole Sodium (Pantoprazole 40 Mg Tab) 40 mg PO QAM [facility] Stop: 11/24/22 08:59 Last Admin: 10/26/22 07:30 Dose: 40 mg
--- NOTE | 2022-10-26 15:55 | Communication Note ---
Date of Service: October 26, 2022 I saw this patient this afternoon for an intertroch fracture of the left hip. She is a patient of Dr. Juarez'jc and consult was for [facility]. I called the floor and asked them to notify [facility] of the consult for further orthopedic management.
--- NOTE | 2022-10-26 18:33 | Orthopedic Consultation ---
Date of Consultation October 26, 2022 Assessment & Plan (1) Fracture of hip, left, closed: Acute left hip fracture history of multiple falls history of low albumin COPD other medical issues which could contribute to increased risk for appropriate healing. Best treatment option is trochanteric femoral nail fixation. She is very light weight and if her bone appears to be reasonably solid she may be able to to do weightbearing after fixation. This will be determined at time of surgery. Recommend keeping n.p.o. and if medically cleared proceed with surgical procedure. Personally I will not be available to perform procedure however this has been communicated to other members of [facility]. History of Present Illness Reason for Consultation: Left hip fracture Attending Physician: Yvan Rodriguez MD Allergies Allergy/AdvReac Type Severity Reaction Status Date / Time adhesive tape Allergy Unknown Redness of Verified 10/24/22 16:26 Skin morphine Allergy Unknown shock, Verified 10/17/22 08:28 dspnea neomycin Allergy Unknown Unknown Verified 10/24/22 16:26 Home Medications Medication Instructions Recorded Confirmed Type metoprolol succinate 25 mg 12.5 mg PO DAILY #15 tabs 08/22/22 10/24/22 Rx tablet,extended release 24 hr oxybutynin chloride 5 mg 5 mg PO QAM 09/25/22 10/24/22 History tablet,extended release 24 hr ipratropium 0.5 mg-albuterol 3 mg 3 ml NEB QIDR PRN shortness of 10/01/22 Rx (2.5 mg base)/3 mL nebulization breath or wheezing 30 days #90 mL soln pantoprazole 40 mg tablet,delayed 40 mg PO QAM 30 days #30 tabs 10/01/22 10/24/22 Rx release famotidine 40 mg tablet 40 mg PO HS PRN Heartburn 10/12/22 10/24/22 History linaclotide 145 mcg capsule 145 mcg PO DAILY #30 caps 10/17/22 10/24/22 Rx (Linzess) vancomycin 125 mg capsule 125 mg PO Q6H #12 caps 10/17/22 10/24/22 Rx levothyroxine 100 mcg tablet 100 mcg PO DAILY #30 tabs 10/20/22 10/24/22 Rx (Synthroid) loperamide 2 mg capsule 2 mg PO UD PRN diarrhea #30 caps 10/20/22 10/24/22 Rx Patient History Medical History COPD (chronic obstructive pulmonary disease) Postsurgical hypothyroidism PSVT (paroxysmal supraventricular tachycardia) Reflux esophagitis Vitamin D deficiency Surgical History Hx of colonoscopy Hx of lumbosacral spine surgery x3 Hx of thyroidectomy Family History Other Breast cancer Social History Smoking Status: Current every day smoker Tobacco Type: Cigarettes Cigarettes Per Day: 1 pack a week; Second Hand Exposure: Yes; Do You Dip or Chew Tobacco: No; Hx Alcohol Use: No Hx Substance Use: No Preferred Language: Moldovan Communication Ability: Effective Windows Security Engineer Required: No Beliefs That Will Affect Care: None Current Living Situation: Spouse Current Living Situation Comment: home Feels Safe at Home: Yes Safety Concerns: Feels Safe At This Time Assistive Devices: Cane Review of Systems Review of Systems: History of recurrent falls and some hip pain prior to fall and generalized weakness and edema of her extremities Physical Exam Physical Exam: Her leg lengths are equal and she has generalized pitting edema in her feet and lower extremities and some in her upper extremities as well in both of her hands. She has left groin pain and pain over the trochanteric region no gross b ruising. Skins intact. Results & Data Vital Signs (Past 12 Hours) Vital Signs Temp Pulse Pulse Resp BP Pulse Ox O2 Del Method 10/26/22 15:51 83 10/26/22 15:43 36.2 C L 69 18 100/49 L 98 Room Air 10/26/22 12:05 36.3 C L 73 18 103/71 99 Room Air 10/26/22 07:44 36.4 C L 70 20 116/68 97 Room Air 10/26/22 07:22 79 Diagnostic Findings X-rays left hip demonstrate a mildly displaced trochanteric fracture of the greater trochanter but there is a nondisplaced intertrochanteric fracture as well.
[2022-10-27] MEDS: HEPARIN SOD 5,000 UNIT/0.5 ML VIAL SQ SCH ×3 (06:01→21:17)
[2022-10-27] MEDS: LEVOTHYROXINE SODIUM 100 MCG TABLET PO SCH (06:06)
[2022-10-27] MEDS: PANTOprazole 40 MG TAB PO SCH (07:34)
[2022-10-27] MEDS: OXYBUTYNIN CHLORIDE XL 5 MG TABCR PO SCH (07:34)
[2022-10-27] MEDS: D5NSS + 20MEQ KCL 20 MEQ/1,000 ML BAG IV SCH (13:11)
--- NOTE | 2022-10-27 16:26 | Hospitalist Progress Note ---
Date of Service October 27, 2022 Assessment & Plan (1) Generalized weakness: (2) Weight loss: (3) C. difficile diarrhea: (4) PSVT (paroxysmal supraventricular tachycardia): (5) Bradycardia: (6) Postsurgical hypothyroidism: (7) Leg edema: (8) Hydronephrosis, right: (9) COPD (chronic obstructive pulmonary disease): (10) Fracture of hip, left, closed: Plan This is a 72yo F with a PMH of history of B12 deficiency, C. difficile infection, COPD, hypothyroidism, pulmonary hypertension and other medical problems listed below who presents with generalized weakness and recurrent falls at home. Patient with recurrent admissions this summer (fourth since August, most recently admitted 10/12-10/21) for dizziness, generalized weakness, severe protein calorie malnutrition and weight loss of 25 lbs in 1 month as well as R hydronephrosis, ongoing diarrhea and BLE edema. Generalized weakness Frequent falls Ongoing for the past several weeks Seen by PT/OT last admission, felt ok to return home but feels weaker again with ongoing persisent diarrhea, BLE edema Fall precautions, PT/OT again, likely to benefit from rehab Has had diarrhea and got dizzy with ambulation and it avoid falls No loss of consciousness and no significant injury Has been feeling much better since admission We will get PT and OT evaluation following management of fracture Intertrochanteric fracture of left hip Will consult orthopedic surgeon for further evaluation and management Likely secondary to osteoporosis with recent fall With left left hip short trochanteric femoral nail placement today by Dr. Scott Management will be as per orthopedic surgeon Diarrhea Noted positive C. difficile gene on 09/30 with negative toxin. Outpatient study revealed apositive toxin. Completing PO vanco course tomorrow per GI rec last admission(missed dose today) H/o recent norovirus on stool studies but per ID, this is not an active infection, but it is more likely that she just hasn't cleared the remnants of virus KUB with nonobstructive bowel gas pattern. Mild to moderate colonic fecal retention Holding Linzess for now GI consulted -appreciate input and recommendation Diarrhea seems to be improving Denies any more diarrhea today Hydronephrosis, right Present since August 2022 Lasix emptying study done by urology as an outpatient which shows severe obstruction It is recommended by urologist that she could undergo cystoscopy with trial stent placement Scheduled to follow-up with urology next month Afebrile, renal function at baseline Severe protein calorie malnutrition with Weight loss Adequate appetite - thought to possibly be related to malabsorption vs malignancy on previous admission, EGD biopsy unremarkable Cholestyramine was stopped by GI as it may be inhibiting absorption of her Synthroid medication and contributing to constipation and leg edema and directly Started Linzess but patient considered about significant expense of medication Continue folate supplementation Advised to eat and drink more Has been eating and drinking reasonably BLE edema Worsening peripheral edema and anasarca on CT abd/pelvis over last few weeks Echo 09/26/2022-EF 55 to 60%, right atrium moderately dilated, moderate tricuspid regurgitation, mild pulmonary hypertension Received IV Lasix 20 mg in the ED previous admission, but given ongoing diarrhea, will hold on additional diuretics at this time Place SCDs, obtaining bilateral venous dopplers to evaluate for DVT -no evidence of deep venous thrombosis Significant edema involving the legs-advised to elevate the legs while in bed and even when sitting down Lasix is not going to be helpful Postsurgical hypothyroidism Free T4 0.85 within range Continue increased dose of levothyroxine 100mcg Also had incidental finding of neck adenopathy on carotid Doppler during previous admission, needs outpatient ultrasound-guided FNA We will continue with replacement therapy PSVT (paroxysmal supraventricular tachycardia) Also with history of bradycardia with HR 44 on admission. Hold beta jenn for now, monitor on telemetry Folate deficiency Folate mildly low 4.91, normal vitamin B12 on previous admission Cont replacement DVT Ppx: SQ lovenox Code status: FULL PCP: Erasto Dispo: Admitted to [facility] Admission and Anticipated Discharge Date Admission Date: October 24, 2022 Subjective 10/25/2022 The patient was seen and examined in medical telemetry unit She was admitted with generalized weakness and frequent falls Has had diarrhea before the incidence Denies any symptoms since admission A stroke alert was called this afternoon but that was called off without any evidence of a stroke symptoms 10/26/2022 The patient was seen and examined in medical telemetry unit She complains to have pain in the left hip with standing and with walking Has been eating reasonably and denies any other symptoms 10/27/2022 The patient was seen and examined in medical telemetry unit She has been waiting to go to the OR to fix the left hip Remains weak and lethargic but denies any other symptoms Her blood pressure was low this morning and she has been getting intravenous fluid Review of Systems Review of Systems: All systems reviewed and are unremarkable except as noted below Physical Exam Physical Exam: Sitting on a chair without any acute distress Constitutional: + ill appearing and + thin Eyes: PERRL, conjunctivae normal, anicteric sclerae ENMT: external ear and nose normal, oropharynx normal Neck: trachea midline, no thyromegaly Respiratory: no respiratory distress Auscultation: + diminished lung sounds; no crackles Cardiovascular: Rate/Rhythm: regular rate and regular rhythm; not tachycardic Heart Sounds: normal S1, normal S2 and + murmur Extremities: + edema (1+ edema bilaterally) Gastrointestinal (Abdomen): Inspection/Auscultation: normal bowel sounds; abdomen not distended Percussion/Palpation: abdomen soft; abdomen nontender Musculoskeletal: Pain in the left hip and pain is worse with movement Neurologic: normal touch/pain/proprioception and moves all extremities; no focal motor deficits Lymphatic: no cervical or axillary lymphadenopathy Results & Data Results & Data Vital Signs (Past 12 Hours) Vital Signs Temp Pulse Pulse Resp BP Pulse Ox O2 Del Method 10/27/22 14:00 71 10/27/22 15:22 36.7 C 71 20 102/65 93 Room Air 10/27/22 12:05 87/59 L 10/27/22 12:00 87/59 L 10/27/22 11:54 36.4 C L 71 20 83/54 L 94 Room Air 10/27/22 07:30 Room Air 10/27/22 08:10 36.3 C L 73 20 91/60 L 92 Room Air 10/27/22 07:00 81 10/27/22 05:02 78 17 95 Room Air Medications Administered Current Inpatient Medications Acetaminophen (Acetaminophen 325 Mg Tab) 650 mg PO Q4H PRN PRN Reason: Pain or Fever Stop: 11/23/22 20:27 Last Admin: 10/25/22 04:42 Dose: 650 mg Albuterol (Albut/Ipratrop 3mg/0.5mg Neb 3 Ml Vial) 3 ml NEB QIDR PRN; Protocol PRN Reason: shortness of breath or wheezing Stop: 11/23/22 20:27 Last Admin: 10/27/22 05:02 Dose: 3 ml Famotidine (Famotidine 40 Mg Tablet) 40 mg PO HS PRN PRN Reason: Heartburn Stop: 11/23/22 20:27 Heparin Sodium (Porcine) (Heparin Sod 5,000 Unit/0.5 Ml Vial) 5,000 units SQ Q8 [facility] Stop: 11/24/22 05:59 Last Admin: 10/27/22 14:41 Dose: Not Given Potassium Chloride/Dextrose/Sod Cl (D5nss + 20meq Kcl) 20 meq in 1,000 mls @ 100 mls/hr IV .Q10H [facility]; Protocol Stop: 10/28/22 18:29 Last Admin: 10/27/22 13:11 Dose: 100 mls/hr Levothyroxine Sodium (Levothyroxine Sodium 100 Mcg Tablet) 100 mcg PO DAILYBB [facility] Stop: 11/24/22 06:29 Last Admin: 10/27/22 06:06 Dose: 100 mcg Ondansetron HCl (Ondansetron Inj 2 Mg/Ml 2 Ml Vial) 4 mg IV Q6H PRN PRN Reason: Nausea Stop: 11/23/22 20:27 Oxybutynin Chloride (Oxybutynin Chloride Xl 5 Mg Tabcr) [facility] [place] [place] Stop: 11/24/22 08:59 Last Admin: 10/27/22 07:34 Dose: 5 mg Pantoprazole Sodium (Pantoprazole 40 Mg Tab) 40 [facility] [place] [place] Stop: 11/24/22 08:59 Last Admin: 10/27/22 07:34 Dose: 40 mg
[2022-10-27] MEDS ORDERED: BUPIVACAINE 0.5 % 5 MG/1 ML MPF 30ML VIAL ONE (16:27)
[2022-10-27] MEDS ORDERED: LIDOCAINE 1% LOCAL 20 ML VIAL ONE (16:28)
[2022-10-27] MEDS ORDERED: ONDANSETRON INJ 2 MG/ML 2 ML VIAL IV PRN (16:54)
[2022-10-27] MEDS ORDERED: ePHEDrine sulfate 50 MG/ML AMP IV PRN (16:54)
[2022-10-27] MEDS ORDERED: ATROPINE SULFATE 0.1 MG/ML 10ML SYR IV PRN (16:54)
[2022-10-27] MEDS ORDERED: fentaNYL citrate PF 100 MCG/2 ML VIAL IV PRN (16:54)
--- NOTE | 2022-10-27 16:54 | Anesthesiology Consultation ---
Date of Service October 27, 2022 Assessment & Plan ASA ASA3 Proposed Anesthesia Anesthesia Type: General Risk / Benefits Reviewed With: PT / POA / Parent / Guardian, Accepts Plan and Informed Consent Obtained History Surgery Operation Date: 10/27/22 11:10 Proposed Procedures p Left Hip Short Trochanteric Femoral Nail - Ernesto Scott M.D. Height/Weight Height: 5 ft 4 in Weight: 42.6 kg Allergies Allergy/AdvReac Type Severity Reaction Status Date / Time adhesive tape Allergy Unknown Redness of Verified 10/24/22 16:26 Skin morphine Allergy Unknown shock, Verified 10/17/22 08:28 dspnea neomycin Allergy Unknown Unknown Verified 10/24/22 16:26 Medications Home Medications Medication Instructions Recorded Confirmed Last Taken metoprolol succinate 25 mg 12.5 mg PO DAILY #15 tabs 08/22/22 10/24/22 10/12/22 tablet,extended release 24 hr oxybutynin chloride 5 mg 5 mg PO QAM 09/25/22 10/24/22 10/12/22 tablet,extended release 24 hr ipratropium 0.5 mg-albuterol 3 mg 3 ml NEB QIDR PRN shortness of 10/01/22 10/24/22 10/11/22 (2.5 mg base)/3 mL nebulization breath or wheezing 30 days #90 mL soln pantoprazole 40 mg tablet,delayed 40 mg PO QAM 30 days #30 tabs 10/01/22 0 10/24/22 10/12/22 release famotidine 40 mg tablet 40 mg PO HS PRN Heartburn 10/12/22 10/24/22 10/11/22 linaclotide 145 mcg capsule 145 mcg PO DAILY #30 caps 10/17/22 10/24/22 Unknown (Linzess) vancomycin 125 mg capsule 125 mg PO Q6H #12 caps 10/17/22 10/24/22 Unknown levothyroxine 100 mcg tablet 100 mcg PO DAILY #30 tabs 10/20/22 10/24/22 Unknown (Synthroid) loperamide 2 mg capsule 2 mg PO UD PRN diarrhea #30 caps 10/20/22 10/24/22 Unknown Active Medications Generic Name Dose Route Start Last Admin Trade Name Freq PRN Reason Stop Dose Admin Acetaminophen 650 mg 10/24/22 20:28 10/25/22 04:42 Acetaminophen 325 Mg Tab PO 11/23/22 20:27 650 mg Q4H PRN Administration Pain or Fever Albuterol 3 ml 10/24/22 20:28 10/27/22 05:02 Albut/Ipratrop 3mg/0.5mg Neb 3 Ml Vial NEB 11/23/22 20:27 3 ml QIDR PRN Administration shortness of breath or wheezing Protocol Heparin Sodium (Porcine) 5,000 units 10/25/22 06:00 10/27/22 14:41 Heparin Sod 5,000 Unit/0.5 Ml Vial SQ 11/24/22 05:59 Not Given Q8 [facility] Potassium Chloride/Dextrose/Sod Cl 20 meq in 1,000 mls @ 100 mls/hr 10/27/22 12:30 10/27/22 13:11 D5nss + 20meq Kcl IV 10/28/22 18:29 100 mls/hr .Q10H [facility] Administration Protocol Levothyroxine Sodium 100 mcg 10/25/22 06:30 10/27/22 06:06 Levothyroxine Sodium 100 Mcg Tablet PO 11/24/22 06:29 100 mcg DAILYBB [facility] Administration Oxybutynin Chloride 5 mg 10/25/22 09:00 10/27/22 07:34 Oxybutynin Chloride Xl 5 Mg Tabcr PO 11/24/22 08:59 5 mg QAM [facility] Administration Pantoprazole Sodium 40 mg 10/25/22 09:00 10/27/22 07:34 Pantoprazole 40 Mg Tab PO 11/24/22 08:59 40 mg QAM [facility] Administration NPO Date Last Intake of Fluids: 10/26/22 Time Last Intake of Fluids: 17:00 Date Last Intake of Solids: 10/26/22 Time Last Intake of Solids: 17:00 Past Medical History Medical History COPD (chronic obstructive pulmonary disease) Postsurgical hypothyroidism PSVT (paroxysmal supraventricular tachycardia) Reflux esophagitis Vitamin D deficiency Exercise / Class Metabolic Activity II 4-5 Yardwork/Stairs/Walk up hill Past Family History Family History Other Breast cancer Past Surgical History Surgical History Hx of colonoscopy Hx of lumbosacral spine surgery x3 Hx of thyroidectomy Past Anesthesia History No Hx of Anesthesia Complications and No Family Hx of Anesthesia Complications History of PONV No Hx of PONV and No Hx of Motion Sickness Social History Smoking Status: Current every day smoker tobacco type: cigarettes Smoking cigarettes per day: 1 pack a week Do You Dip or Chew Tobacco: No Hx Alcohol Use: No Hx Substance Use: No substance use type: does not use Review of Systems denies fever/cough/ colds/ chest pain/ SOB/ JADYN denies JADYN Physical Exam Vital Signs Last Vital Signs Temp 36.9 C 10/27/22 16:47 Pulse 74 10/27/22 16:47 Resp 18 10/27/22 16:47 BP 104/59 L 10/27/22 16:47 Pulse Ox 96 10/27/22 16:47 O2 Del Method Room Air 10/27/22 16:47 ENMT Mouth: no TMJ abnormality and no dentition abnormality Thyromental Distance: > or= 3.5 Finger Breadths Mallampati Class: II Neck neck extension not limited Respiratory normal respiratory effort; no respiratory distress Auscultation: lungs clear to auscultation bilaterally Cardiovascular Rate/Rhythm: regular rate and regular rhythm Neurologic moves all extremities Psychiatric Orientation: alert and oriented x 3 Testing Laboratory Results 10/26/22 05:59 10/26/22 05:59 PT 10.7 Seconds (9.0-12.0) 10/24/22 15:02 INR 1.0 (0.9-1.1) 10/24/22 15:02 APTT 29.8 Seconds (21.0-31.0) 10/24/22 15:02
[2022-10-27] MEDS ORDERED: ceFAZolin 2,000 MG/15 ML IV PUSH IV ONE (17:02)
[2022-10-27] MEDS ORDERED: ceFAZolin 2000MG 2,000 MG/15 ML SYR IV STA (17:03)
--- NOTE | 2022-10-27 17:07 | History & Physical Bridge Note ---
Date of Service October 27, 2022 History & Physical Bridge Note I have examined the patient, reviewed the History & Physical and in the interval since the performance of the History & Physical I have noted the following changes of clinical significance: Patient seen and examined, and x-rays reviewed. She has a nondisplaced intertrochanteric femur fracture. Recommending left hip short cephalomedullary nailing. Risks, benefits, and alternatives of surgery were explained in detail. The surgical procedure, as well as postoperative recovery and rehabilitation, was also explained in detail. Risks include bleeding; infection; damage to surrounding structures such as nerves, blood vessels, and tendons that run in the area; persistent pain or stiffness; nonunion; malunion; hardware failure; painful prominent hardware requiring removal; or need for further surgery. The patient understands all of this and wishes to proceed with surgery. Informed consent was obtained.
[2022-10-27] MEDS ORDERED: PROPOFOL IV EMULSION 10 MG/ML 20 ML VIAL IV ONE (17:08)
[2022-10-27] MEDS ORDERED: fentaNYL citrate PF 100 MCG/2 ML VIAL ONE (17:08)
[2022-10-27] MEDS ORDERED: ONDANSETRON INJ 2 MG/ML 2 ML VIAL ONE (17:08)
[2022-10-27] MEDS ORDERED: SUCCINYLCHOLINE CHLORIDE 20 MG/ML 10 ML VIAL IV ONE (17:08)
[2022-10-27] MEDS ORDERED: LIDOCAINE 2% 2 ML VIAL/AMP(20MG/ML) INFIL ONE (17:08)
[2022-10-27] MEDS ORDERED: ePHEDrine sulfate 50 MG/ML AMP ONE (18:38)
[2022-10-27] MEDS ORDERED: SODIUM CHLORIDE 0.9% PF INJ 10 ML VIAL ONE (18:38)
--- NOTE | 2022-10-27 18:44 | Operative Report ---
Post Operative Report Pre & Post Diagnosis Operation Date: 10/27/22 11:10 Pre-Op Diagnosis: Left hip nondisplaced intertrochanteric femur fracture Post-Op Diagnosis: Left hip nondisplaced intertrochanteric femur fracture I identified the patient and participated in the time-out.: Yes Procedure Operation Date: 10/27/22 11:10 Actual Procedures Left hip short cephalomedullary nailing for nondisplaced intertrochanteric femur fracture (39729) - Ernesto Scott M.D. Surgeon Ernesto Scott MD Steward/Stewardess Second None Estimated Blood Loss 50 Findings Consistent with Post-Op Diagnosis Specimens None Anesthesia Type General Complications none Disposition Disposition: Recovery Room Indications Ms. Funk is a 72-year-old female with persistent left hip pain and difficulty with ambulation after a fall few days ago. History, clinical exam, and imaging were consistent with the above diagnosis. Risks, benefits, and alternatives of surgery were explained in detail. The patient understood all this and wished to proceed. Description of Procedure Implants: Synthes Short (170mm) 130 degree 10mm Trochanteric Fixation Nail, 11mm helical blade, 5mm distal locking screw Patient was identified in the preoperative holding area. Operative extremity was marked. Patient was then brought back to the operating room, and general anesthesia was induced without complication. Appropriate weight-based dose of Ancef was infused intravenously for antibiotic prophylaxis. Patient was then positioned on the fracture table with the traction apparatus. The nonoperative hip was flexed and placed into the well leg evans. Longitudinal traction was applied to the operative hip. Maintenance of fracture reduction was then verified under fluoroscopic imaging. The left hip was then prepped and draped in a standard sterile fashion using Chlorhexidine prep. I first made an incision just proximal to the greater trochanter in line with the femoral shaft axis, and split the fibers of the iliotibial band. I then bluntly palpated down to the greater trochanter and inserted the guidewire down to the tip of the greater trochanter. It was appropriately positioned on AP and lateral images, and then driven into the proximal femur. I then inserted the soft tissue protector down to the tip of the greater trochanter and then passed the entry reamer over top of the guidewire. It was advanced down towards the lesser trochanter to open the proximal femur. I then inserted the Synthes short TFN attached to the targeting arm into the proximal femur. I malleted it down to an appropriate depth for proper trajectory of the helical blade into the femoral head. Once the nail was at an appropriate depth, I then attached the targeting guide for the helical blade onto the targeting arm. Incision was made in line with the guide through the skin and iliotibial band. The guide sleeve was placed against the lateral cortex of the femur. Guidewire was then inserted through the guide and up into the femoral neck and head. I verified proper placement and trajectory under both AP and lateral images. I advanced the guidewire to the subchondral bone in the femoral head and verified proper depth on orthogonal images. I then measured the depth off of the guidewire. The drill for the helical blade was then set at an appropriate level to match the measured length. The drill was then advanced to the set depth. An appropriate length helical blade was selected and malleted into place over the guidewire. I then deployed the set screw proximally to prevent rotation of the helical blade during fracture compression. Fracture compression was then applied using the compression ring on the helical blade targeting sleeve. I then made an incision for the distal locking screw in line with the drill guide through skin and iliotibial band. I then placed the drill sleeve down on the lateral cortex of the femur and drilled through the distal locking hole. Screw length was then measured off of the calibrated drill bit, and an appropriate length was selected and then inserted. The screw length was verified under fluoroscopic imaging. Final fluoroscopic images were then obtained to ensure proper hardware placement, screw length, and fracture reduction. The wounds were then copiously irrigated with sterile saline. I then closed the iliotibial band and deep dermal tissue with #0 Vicryl suture. Subcutaneous tissues closed with 3-0 Vicryl suture, and skin was closed with alyssa. Sterile dressings were then applied with Xeroform, sterile gauze, and foam tape. Drapes were then removed and traction apparatus was disconnected. The patient was awakened from general anesthesia, transferred over to the stretcher, and taken to the Post Anesthesia Care Unit in stable condition. There were no immediate complications from the procedure. I was present and scrubbed for the entire procedure. I attest to the content of the Intraoperative Record and any orders documented therein. Any exceptions are noted below.
--- NOTE | 2022-10-27 18:58 | Fluoroscopy Report ---
FL hip LT 2-3V CLINICAL HISTORY: LT SHORT NAILacute fracture of the left hip COMPARISON STUDY: 10/26/2022 FLUOROSCOPY TIME: 58.1 seconds FLUOROSCOPY IMAGES: 4 EXPOSURE DOSE: 10.33 mGy FINDINGS: Status post placement of an intertrochanteric nail with medullary maximus. Satisfactory alignme nt of the acute left intratrochanteric fracture. Soft tissue edema with subcutaneous emphysema. IMPRESSION: Fluoroscopic assistance as above. ACT 112: Negative or not required by law. Electronically signed by: Patrick Jacobsen M.D. 10/27/2022 6:57 PM
--- NOTE | 2022-10-27 19:20 | Anesthesiology Progress Note ---
Date of Service October 27, 2022 Anesthesia Post Procedure Vital Signs Vital Signs: Temp Pulse Pulse Pulse Resp BP BP 10/27/22 19:10 75 13 125/84 10/27/22 19:00 75 11 L 126/78 10/27/22 18:50 36.2 C L 77 12 123/74 10/27/22 16:47 36.9 C 74 18 104/59 L 10/27/22 14:00 71 10/27/22 15:22 36.7 C 71 20 102/65 10/27/22 12:05 87/59 L 10/27/22 12:00 87/59 L 10/27/22 11:54 36.4 C L 71 20 83/54 L 10/27/22 07:30 10/27/22 08:10 36.3 C L 73 20 91/60 L 10/27/22 07:00 81 10/27/22 05:02 78 17 10/27/22 04:06 36.3 C L 83 20 114/70 10/27/22 01:22 69 10/27/22 00:32 10/27/22 00:28 36.9 C 78 16 101/63 10/26/22 23:39 36.4 C L 91 H 20 90/54 L 10/26/22 19:44 36.4 C L 72 20 115/66 Pulse Ox O2 Del Method O2 Flow Rate 10/27/22 19:10 93 Oxymask 5 10/27/22 19:00 97 Oxymask 5 10/27/22 18:50 98 Oxymask 9 10/27/22 16:47 96 Room Air 10/27/22 14:00 10/27/22 15:22 93 Room Air 10/27/22 12:05 10/27/22 12:00 10/27/22 11:54 94 Room Air 10/27/22 07:30 Room Air 10/27/22 08:10 92 Room Air 10/27/22 07:00 10/27/22 05:02 95 Room Air 10/27/22 04:06 92 Room Air 10/27/22 01:22 10/27/22 00:32 Room Air 10/27/22 00:28 96 Room Air 10/26/22 23:39 92 Room Air 10/26/22 19:44 97 Room Air Pain Intensity Generalized: Pain Intensity: 8 Left Leg: Pain Intensity: 8 Transfer of Care Handoff Completed per policy Notes Mental Status: alert / awake / arousable and participated in evaluation Patient Amnestic to Procedure: Yes Nausea / Vomiting: adequately controlled Pain: adequately controlled Airway Patency, RR, SpO2: stable & adequate BP & HR: stable & adequate Hydration State: stable & adequate Anesthetic Complications: no major complications apparent and Pt Satisfied with anesthetic care
[2022-10-27] MEDS ORDERED: ceFAZolin 2000MG 2,000 MG/15 ML SYR IV ONE (20:32)
[2022-10-27] MEDS: ACETAMINOPHEN 325 MG TAB PO PRN (22:10)
[2022-10-27] MEDS ORDERED: ACETAMINOPHEN 325 MG TAB ONE (22:21)
[2022-10-28 00:02] LABS: Hematocrit (blood only) 31.8 % (37.0-47.0); Hemoglobin 10.2 g/dl (12.0-16.0)
[2022-10-28] MEDS ORDERED: LACTATED RINGER'S 1,000 ML IV ONE ×2 (00:11→06:00)
[2022-10-28 00:16] LABS: Creatinine Clr Calc Pharmacy 56.1 ml/min; Est GFR (Non-African American) 90.6 ml/min; Potassium 4.6 mmol/L (3.5-5.1)
[2022-10-28] MEDS: D5NSS + 20MEQ KCL 20 MEQ/1,000 ML BAG IV SCH (00:33)
[2022-10-28 03:51] LABS: Appearance Urine Clear (Clear); Bacteria Urine Automated Negative (Negative); Bilirubin Urine Negative (Negative); Blood Urine 3+ (Negative); Color Urine Yellow; Epithelial Cell Urine Auto 20-30 /lpf (0-5); Glucose Urine UA Negative (Negative); Ketones Urine Negative (Negative); Leukocyte Esterase Urine Trace (Negative); Nitrite Urine Negative (Negative); Protein Urine Trace (Negative); RBC Urine Automated >30 /hpf (0-4); Specific Gravity Urine 1.023 (1.000-1.030); Urobilinogen Urine Negative (Negative)
[2022-10-28 04:39] LABS: Hematocrit (blood only) 29.3 % (37.0-47.0); Hemoglobin 9.3 g/dl (12.0-16.0); Immature Granulocytes # (auto) 0.01 K/uL (0.01-0.20); Immature Granulocytes % (auto) 0.2 %; Lymphocytes # (auto) 0.33 K/uL (1.20-3.40); Lymphocytes % (auto) 6.7 %; Mean Corpuscular Hemoglobin 32.1 pg (25.0-34.0); Mean Corpuscular Hgb Conc 31.7 g/dL (32.0-36.0); Mean Platelet Volume 10.2 fL (9.4-12.4); Monocytes # (auto) 0.19 K/uL (0.11-0.59); Monocytes % (auto) 3.8 %; Neutrophils # (auto) 4.41 K/uL (1.40-6.50); Neutrophils % (auto) 89.3 %; Platelet Count 168 K/uL (130-400); RDW Coefficient of Variation 17.2 % (11.5-14.5); White Blood Count 4.94 K/ul (4.8-10.8)
[2022-10-28 04:59] LABS: Creatinine Clr Calc Pharmacy 54.3 ml/min; Est GFR (African American) 103.9 ml/min; Est GFR (Non-African American) 89.6 ml/min; Magnesium 1.8 mg/dl (1.7-2.4); Phosphorus 3.9 mg/dl (2.5-4.9); Potassium 4.8 mmol/L (3.5-5.1)
[2022-10-28] MEDS: HEPARIN SOD 5,000 UNIT/0.5 ML VIAL SQ SCH ×3 (05:23→22:58)
[2022-10-28] MEDS: LEVOTHYROXINE SODIUM 100 MCG TABLET PO SCH (05:23)
[2022-10-28] MEDS: ACETAMINOPHEN 325 MG TAB PO PRN (05:23)
--- NOTE | 2022-10-28 06:28 | Communication Note ---
Date of Service: October 28, 2022 Patient tachycardic. Heart rate 130s for about 10 minutes without symptoms as per RN. SBP 90s. 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 Heart rate currently 80s. Patient asymptomatic during episode as per RN. AP Transient tachycardia Sinus tachycardia versus recurrent SVT Beta-jenn held 10/25 secondary to bradycardia. Resume low-dose beta-jenn.
[2022-10-28] MEDS ORDERED: METOPROLOL SUCC 25MG EXT REL TAB PO SCH (06:30)
[2022-10-28] MEDS: MAGNESIUM SULFATE / D5W 1 GM/100 ML BAG IV SCH ×2 (06:43→08:54)
--- NOTE | 2022-10-28 07:09 | XRay Report ---
XR hip LT min 2V HISTORY: 72 years-old Female Postop left femoral ORIF COMPARISON: 2022 TECHNIQUE: 2 views of the left hip FINDINGS: Status post placement of an intertrochanteric nail with medullary maximus fixating an acute intertrochant fabiola fracture which demonstrates satisfactory alignment. Lateral skin alyssa with expected postopera tive soft tissue swelling and deep tissue air. Lumbar spinal fusion hardware. IMPRESSION: Status post ORIF of the acute intertrochanteric fracture. ACT 112: Negative or not required by law. The above report was generated using voice recognition software. It may contain grammatical, syntax o r spelling errors. Electronically signed by: Patrick Jacobsen M.D. 10/28/2022 7:08 AM
[2022-10-28] MEDS: OXYBUTYNIN CHLORIDE XL 5 MG TABCR PO SCH (08:47)
[2022-10-28] MEDS: PANTOprazole 40 MG TAB PO SCH (08:49)
--- NOTE | 2022-10-28 09:21 | Orthopedic Progress Note ---
Date of Service October 28, 2022 Assessment & Plan (1) Fracture of hip, left, closed: Plan: Postop day 1 status post left TFN. PT/OT protocols. Weightbearing as tolerated. DVT prophylaxis-heparin subcu 5000 units every 8 hours. SCDs Pain management as written. DC planning-patient stating that she may consider outpatient PT versus home health depending on how she progresses with her physical therapy. Admission and Anticipated Discharge Date Admission Date: October 24, 2022 Subjective Postop day 1 Patient is sitting up in bed awake and alert. Currently eating her breakfast. Pain is controlled. No complaints at this time. Physical Exam Physical Exam: Distal dressing is intact with mild serous drainage noted. Proximal dressing is clean, dry, and intact. Mild thigh swelling consistent with surgery. Calves are soft nontender. Neurovascular intact. Results & Data Vital Signs (Past 12 Hours) Vital Signs Temp Pulse Pulse Pulse Resp BP BP 10/28/22 07:17 36.6 C 82 20 93/65 L 10/28/22 07:54 86 10/28/22 06:29 135 H 92/56 L 10/28/22 03:27 36.6 C 93 H 18 102/63 10/28/22 02:54 72 10/28/22 01:40 10/28/22 01:18 36.7 C 85 18 91/45 L 10/28/22 00:05 36.4 C L 81 18 92/53 L 10/27/22 22:37 36.2 C L 83 18 94/61 L 10/27/22 22:05 36.2 C L 82 18 108/71 Pulse Ox O2 Del Method O2 Flow Rate 10/28/22 07:17 95 Nasal Cannula 2 10/28/22 07:54 10/28/22 06:29 93 Nasal Cannula 2 10/28/22 03:27 95 Room Air 10/28/22 02:54 10/28/22 01:40 Nasal Cannula 3 10/28/22 01:18 91 Nasal Cannula 3 10/28/22 00:05 94 Nasal Cannula 3 10/27/22 22:37 92 Nasal Cannula 4 10/27/22 22:05 90 Nasal Cannula 2 Laboratory Results Laboratory Results WBC 4.94 K/ul (4.8-10.8) 10/28/22 04:11 RBC 2.90 M/uL (4.20-5.40) L 10/28/22 04:11 Hgb 9.3 g/dl (12.0-16.0) L 10/28/22 04:11 Hct 29.3 % (37.0-47.0) L 10/28/22 04:11 MCV 101.0 fL (80.0-100.0) H 10/28/22 04:11 MCH 32.1 pg (25.0-34.0) 10/28/22 04:11 MCHC 31.7 g/dL (32.0-36.0) L 10/28/22 04:11 RDW Std Deviation 64.0 fL (36.4-46.3) H 10/28/22 04:11 RDW Coeff of Minal 17.2 % (11.5-14.5) H 10/28/22 04:11 Plt Count 168 K/uL (130-400) 10/28/22 04:11 MPV 10.2 fL (9.4-12.4) 10/28/22 04:11 Immature Gran % (Auto) 0.2 % 10/28/22 04:11 Neut % (Auto) 89.3 % 10/28/22 04:11 Lymph % (Auto) 6.7 % 10/28/22 04:11 [place] % (Auto) 3.8 % 10/28/22 04:11 Eos % (Auto) 0.0 % 10/28/22 04:11 Baso % (Auto) 0.0 % 10/28/22 04:11 Neut # (Auto) 4.41 K/uL (1.40-6.50) 10/28/22 04:11 Lymph # (Auto) 0.33 K/uL (1.20-3.40) L 10/28/22 04:11 [place] # (Auto) 0.19 K/uL (0.11-0.59) 10/28/22 04:11 Eos # (Auto) 0.00 K/uL (0.00-0.50) 10/28/22 04:11 Baso # (Auto) 0.00 K/uL (0.00-0.20) 10/28/22 04:11 Immature Gran # (Auto) 0.01 K/uL (0.01-0.20) 10/28/22 04:11 PT 10.7 Seconds (9.0-12.0) 10/24/22 15:02 INR 1.0 (0.9-1.1) 10/24/22 15:02 APTT 29.8 Seconds (21.0-31.0) 10/24/22 15:02 PTT Ratio 1.1 10/24/22 15:02 Sodium 136 mmol/L (136-145) 10/28/22 04:11 Potassium 4.8 mmol/L (3.5-5.1) 10/28/22 04:11 Chloride 103 mmol/L (98-107) 10/28/22 04:11 Carbon Dioxide 27 mmol/L (21-32) 10/28/22 04:11 Anion Gap 6 (3-11) 10/28/22 04:11 BUN 17 mg/dl (6-23) 10/28/22 04:11 Creatinine 0.63 mg/dl (0.6-1.2) 10/28/22 04:11 Est Cr Clr Drug Dosing 54.3 ml/min 10/28/22 04:11 Est GFR ( Amer) 103.9 ml/min 10/28/22 04:11 Est GFR (Non-Af Amer) 89.6 ml/min 10/28/22 04:11 BUN/Creatinine Ratio 27.0 (10-20) H 10/28/22 04:11 Glucose 143 mg/dl (70-99(Fasting)) H 10/28/22 04:11 POC Glucose 109 mg/dl (70-99) H 10/25/22 15:48 Lactate 1.9 mmol/L (0.4-2.0) 10/28/22 04:11 Calcium 8.0 mg/dl (8.6-10.3) L 10/28/22 04:11 Phosphorus 3.9 mg/dl (2.5-4.9) 10/28/22 04:11 Magnesium 1.8 mg/dl (1.7-2.4) 10/28/22 04:11 Total Bilirubin 0.6 mg/dl (0.2-1.0) 10/26/22 05:59 AST 33 U/L (13-39) 10/26/22 05:59 ALT 37 U/L (7-52) 10/26/22 05:59 Alkaline Phosphatase 83 U/L (34-104) 10/26/22 05:59 Total Protein 5.0 gm/dl (6.0-8.3) L 10/26/22 05:59 Albumin 2.7 gm/dl (3.4-5.0) L 10/26/22 05:59 Globulin 2.3 gm/dl (2.5-4.0) L 10/26/22 05:59 Albumin/Globulin Ratio 1.2 (0.9-2) 10/26/22 05:59 TSH 32.058 uIu/ml (0.300-4.500) H 10/24/22 11:13 Free T4 0.85 ng/dl (0.61-1.60) 10/24/22 11:13 Urine Color Yellow 10/28/22 03:26 Urine Appearance Clear (Clear) 10/28/22 03:26 Urine pH 5.0 (4.5-7.5) 10/28/22 03:26 Ur Specific [place] 1.023 (1.000-1.030) 10/28/22 03:26 Urine Protein Trace (Negative) H 10/28/22 03:26 Urine Glucose (UA) Negative (Negative) 10/28/22 03:26 Urine Ketones Negative (Negative) 10/28/22 03:26 Urine Blood 3+ (Negative) H 10/28/22 03:26 Urine Nitrite Negative (Negative) 10/28/22 03:26 Urine Bilirubin Negative (Negative) 10/28/22 03:26 Urine Urobilinogen Negative (Negative) 10/28/22 03:26 Ur Leukocyte Esterase Trace (Negative) H 10/28/22 03:26 Urine WBC (Auto) 5-10 /hpf (0-5) H 10/28/22 03:26 Urine RBC (Auto) >30 /hpf (0-4) H 10/28/22 03:26 U Hyaline Cast (Auto) 1-5 /lpf (0-5) 10/28/22 03:26 U Epithel Cells (Auto) 20-30 /lpf (0-5) H 10/28/22 03:26 Urine Bacteria (Auto) Negative (Negative) 10/28/22 03:26 Impressions Chest X-Ray 10/24/22 10:52 XR chest 1V not portable CLINICAL HISTORY: b/l leg swelling TECHNIQUE: Single frontal radiograph of the chest was obtained. Comparison: Comparison is made to chest radiograph 10/12/2022 FINDINGS: No lines and tubes are seen. Calcified aortic knob is seen. Posterior fixation hardware is seen in the lumbar spine. The lungs are clear. No evidence of pleural effusion or pneumothorax. IMPRESSION: No acute chest disease. ACT 112: Negative or not required by law. Electronically signed by: Trent Woodruff M.D. 10/24/2022 12:10 PM KUB X-Ray 10/24/22 16:21 KUB HISTORY: Acute transabdominal pain with distention abd distention, uropathy in past COMPARISON: CT 10/12/2022 FINDINGS: Nonobstructive bowel gas pattern. Mild to moderate colonic fecal retention. Nephrolithiasis is better seen on the comparison CT study. No uret eral calculi identified. No pneumoperitoneum or pneumatosis. Degenerative and postoperative changes of the lumbar spine. No fracture. IMPRESSION: 1. Nonobstructive bowel gas pattern. 2. Nephrolithiasis better seen on the comparison CT study. No ureteral calculi identified. ACT 112: Negative or not required by law. The above report was generated using voice recognition software. It may contain grammatical, syntax or spelling errors. Electronically signed by: Patrick Jacobsen M.D. 10/24/2022 4:58 PM Venous Doppler Study 10/24/22 16:24 BILATERAL LOWER EXTREMITY VENOUS DOPPLER HISTORY: Acute pain and swelling of the lower legs. BLE edema, eval for dvt COMPARISON STUDY: None. FINDINGS: Subcutaneous edema. There is normal compressibility, flow, and augmentation within the bilateral lower extremity deep venous systems. IMPRESSION: No DVT within the right or left lower extremity. ACT 112: Negative or not required by law. Electronically signed by: Patrick Jacobsen M.D. 10/25/2022 6:55 AM Hip X-Ray 10/27/22 18:49 XR hip LT min 2V HISTORY: 72 years-old Female Postop left femoral ORIF COMPARISON: 2022 TECHNIQUE: 2 views of the left hip FINDINGS: Status post placement of an intertrochanteric nail with medullary maximus fixating an acute intertrochanteric fracture which demonstrates satisfactory alignment. Lateral skin alyssa with expected postoperative soft tissue swelling and deep tissue air. Lumbar spinal fusion hardware. IMPRESSION: Status post ORIF of the acute intertrochanteric fracture. ACT 112: Negative or not required by law. The above report was generated using voice recognition software. It may contain grammatical, syntax or spelling errors. Electronically signed by: Patrick Jacobsen M.D. 10/28/2022 7:08 AM
--- NOTE | 2022-10-28 10:50 | Hospitalist Progress Note ---
Date of Service October 28, 2022 Assessment & Plan (1) Generalized weakness: (2) Weight loss: (3) C. difficile diarrhea: (4) PSVT (paroxysmal supraventricular tachycardia): (5) Bradycardia: (6) Postsurgical hypothyroidism: (7) Leg edema: (8) Hydronephrosis, right: (9) COPD (chronic obstructive pulmonary disease): (10) Fracture of hip, left, closed: Plan This is a 72yo F with a PMH of history of B12 deficiency, C. difficile infection, COPD, hypothyroidism, pulmonary hypertension and other medical problems listed below who presents with generalized weakness and recurrent falls at home. Patient with recurrent admissions this summer (fourth since August, most recently admitted 10/12-10/21) for dizziness, generalized weakness, severe protein calorie malnutrition and weight loss of 25 lbs in 1 month as well as R hydronephrosis, ongoing diarrhea and BLE edema. Intertrochanteric fracture of left hip Likely secondary to osteoporosis with recent fall POD Day #1 s/p L hip short trochanteric femoral nail placement by Dr. Scott on 10/27/22 Appreciate ortho recs-PT/OT, pain control, heparin SQ for DVT prophylaxis Atrial Flutter Episodes noted on the monitor, gets "tingly" Appreciate cardiology recommendations Generalized weakness Frequent falls Ongoing for the past several weeks Seen by PT/OT last admission, felt ok to return home but feels weaker again with ongoing persistent diarrhea, BLE edema Fall precautions, PT/OT again, likely to benefit from rehab Has had diarrhea and got dizzy with ambulation No loss of consciousness and no significant injury Diarrhea Noted positive C. difficile gene on 09/30 with negative toxin. Outpatient study revealed apositive toxin. Completed PO vanco course per GI rec last admission H/o recent norovirus on stool studies but per ID, this is not an active infection KUB with nonobstructive bowel gas pattern. Mild to moderate colonic fecal retention Holding Linzess for now GI consulted -appreciate input and recommendation Diarrhea currently resolved. Hydronephrosis, right Present since August 2022 Lasix emptying study done by urology as an outpatient which shows severe obstruction It is recommended by urologist that she could undergo cystoscopy with trial stent placement Scheduled to follow-up with urology next month Afebrile, renal function at baseline Severe protein calorie malnutrition Weight loss Adequate appetite - thought to possibly be related to malabsorption vs malignancy on previous admission, EGD biopsy unremarkable Cholestyramine was stopped by GI as it may be inhibiting absorption of her Synthroid medication and contributing to constipation and leg edema and directly Continue folate supplementation Nutrition advised use of multivitamin BLE edema Worsening peripheral edema and anasarca on CT abd/pelvis over last few weeks Echo 09/26/2022-EF 55 to 60%, right atrium moderately dilated, moderate tricuspid regurgitation, mild pulmonary hypertension Received IV Lasix 20 mg in the ED previous admission SCDs, bilateral venous dopplers -no evidence of deep venous thrombosis Significant edema involving the legs-advised to elevate the legs while in bed and even when sitting down Postsurgical hypothyroidism Free T4 0.85 within range Continue increased dose of levothyroxine 100mcg Also had incidental finding of neck adenopathy on carotid Doppler during previous admission, needs outpatient ultrasound-guided FNA We will continue with replacement therapy PSVT (paroxysmal supraventricular tachycardia) Also with history of bradycardia with HR 44 on admission. Hold beta jenn for now, monitor on telemetry Folate deficiency Folate mildly low 4.91, normal vitamin B12 on previous admission Cont replacement DVT Ppx: SQ heparin Code status: FULL PCP: Erasto Dispo: Admitted to [facility] tele Admission and Anticipated Discharge Date Admission Date: October 24, 2022 Subjective Pt with episodes of atrial flutter on monitor. States she only feels her arms getting "tingly" but no acute symptoms. Review of Systems Review of Systems: All systems reviewed & are unremarkable except as noted in Subjective Physical Exam Physical Exam: General: Alert, oriented. No acute distress, appears cachectic Psych: Appropriate mood and affect HEENT: NC/AT CV: RRR, Normal s1, s2. Resp: Breath sounds coarse bilaterally Abdomen:Soft Extremities: ++ edema in lower extremities bilaterally. Results & Data Results & Data Vital Signs (Past 12 Hours) Vital Signs Temp Pulse Pulse Pulse Resp BP BP 10/28/22 10:49 80 92/52 L 10/28/22 07:17 36.6 C 82 20 93/65 L 10/28/22 07:54 86 10/28/22 06:29 135 H 92/56 L 10/28/22 03:27 36.6 C 93 H 18 102/63 10/28/22 02:54 72 10/28/22 01:40 10/28/22 01:18 36.7 C 85 18 91/45 L 10/28/22 00:05 36.4 C L 81 18 92/53 L Pulse Ox O2 Del Method O2 Flow Rate 10/28/22 10:49 10/28/22 07:17 95 Nasal Cannula 2 10/28/22 07:54 10/28/22 06:29 93 Nasal Cannula 2 10/28/22 03:27 95 Room Air 10/28/22 02:54 10/28/22 01:40 Nasal Cannula 3 10/28/22 01:18 91 Nasal Cannula 3 10/28/22 00:05 94 Nasal Cannula 3
[2022-10-28] MEDS: METOPROLOL TARTRATE 25 MG TAB PO SCH ×2 (14:24→22:48)
--- NOTE | 2022-10-28 14:34 | Cardiology Consultation ---
Date of Consultation October 28, 2022 Assessment & Plan (1) Atrial flutter, paroxysmal: (2) Extremity edema: (3) Protein malnutrition: (4) Anemia: (5) Diarrhea: (6) Generalized weakness: (7) Postsurgical hypothyroidism: Plan 72-year-old female with recurrent episodes of paroxysmal supraventricular tachycardia, likely atrial flutter with 2-1 conduction although not confirmed by ECG. Dysrhythmia occurring in the postoperative setting. Beta-jenn held since admission and restarted this AM. Volume depleted with borderline hypotension at rest. Recurrent dysrhythmia precipitated by beta-jenn withdrawal, intravascular volume depletion, and postoperative state. Agree with gentle IV hydration. Discontinue metoprolol succinate in favor of metoprolol tartrate 12.5 mg 3 times daily. Continue to monitor telemetry. ECG with recurrent episodes of tachycardia to confirm diagnosis. Patient is not a strong candidate for long-term anticoagulation due to anemia and fall risk.(Admitted with frequent falls and hip fracture) Edema related to severe protein malnutrition. Encourage p.o. intake. Would not add additional furosemide at this time with ongoing hypotension. Reassess electrolytes in a.m. and supplement as indicated. History of Present Illness Reason for Consultation: atrial flutter Requesting Physician: Dr. Walker Attending Physician: Tamia Walker MD History of Present Illness 72-year-old female admitted 10/24/2022 secondary to generalized weakness, weight loss, frequent falls, and C. difficile diarrhea. Nondisplaced left femur intertrochanteric fracture noted per x-ray 10/26/2022. Orthopedic surgery performed 10/27/2022 at 11:10 AM. Intermittent tachycardia noted overnight. Review of telemetry suggests paroxysmal atrial flutter at approximately 150 bpm. Patient notes "tingling of her hands" with episodes of atrial flutter. No syncope or near syncope. Patient reports mild lightheadedness. No chest discomfort or shortness of breath. Chart history of PSVT and bradycardia. Heart rate in the 70s in between episodes of paroxysmal atrial flutter. Per discussion with nursing, patient has not received metoprolol since admission. First dose administered this a.m., 12.5 mg metoprolol succinate. Intermittent diarrhea noted by nursing staff. Patient with history of C. difficile colitis. Echocardiogram performed in September demonstrating preserved LV systolic function with evidence of mild pulmonary hypertension and elevated right atrial pressure. Patient reports lower extremity edema ongoing for several weeks prior to admission. Patient received magnesium supplementation and 1 dose of low-dose beta-jenn this a.m. Borderline hypotensive today. Consuming diet with adequate appetite. Received lactated Ringer's IV as well. Allergies Allergy/AdvReac Type Severity Reaction Status Date / Time adhesive tape Allergy Unknown Redness of Verified 10/24/22 16:26 Skin morphine Allergy Unknown shock, Verified 10/17/22 08:28 dspnea neomycin Allergy Unknown Unknown Verified 10/24/22 16:26 Home Medications Medication Instructions Recorded Confirmed Type metoprolol succinate 25 mg 12.5 mg PO DAILY #15 tabs 08/22/22 10/24/22 Rx tablet,extended release 24 hr oxybutynin chloride 5 mg 5 mg PO QAM 09/25/22 10/24/22 History tablet,extended release 24 hr ipratropium 0.5 mg-albuterol 3 mg 3 ml NEB QIDR PRN shortness of 10/01/22 10/24/22 Rx (2.5 mg base)/3 mL nebulization breath or wheezing 30 days #90 mL soln pantoprazole 40 mg tablet,delayed 40 mg PO QAM 30 days #30 tabs 10/01/22 10/24/22 Rx release famotidine 40 mg tablet 40 mg PO HS PRN Heartburn 10/12/22 10/24/22 History linaclotide 145 mcg capsule 145 mcg PO DAILY #30 caps 10/17/22 10/24/22 Rx (Linzess) vancomycin 125 mg capsule 125 mg PO Q6H #12 caps 10/17/22 10/24/22 Rx levothyroxine 100 mcg tablet 100 mcg PO DAILY #30 tabs 10/20/22 10/24/22 Rx (Synthroid) loperamide 2 mg capsule 2 mg PO UD PRN diarrhea #30 caps 10/20/22 10/24/22 Rx Patient History Medical History COPD (chronic obstructive pulmonary disease) Postsurgical hypothyroidism PSVT (paroxysmal supraventricular tachycardia) Reflux esophagitis Vitamin D deficiency Surgical History Hx of colonoscopy Hx of lumbosacral spine surgery x3 Hx of thyroidectomy Family History Other Breast cancer Social History Smoking Status: Current every day smoker Tobacco Type: Cigarettes Cigarettes Per Day: 1 pack a week; Second Hand Exposure: Yes; Do You Dip or Chew Tobacco: No; Hx Alcohol Use: No Hx Substance Use: No Preferred Language: Turkish Communication Ability: Effective Inward Toll Operator Required: No Beliefs That Will Affect Care: None Current Living Situation: Spouse Current Living Situation Comment: home Feels Safe at Home: Yes Safety Concerns: Feels Safe At This Time Assistive Devices: Cane Review of Systems Review of Systems: All systems reviewed & are unremarkable except as noted in Subjective Physical Exam Constitutional: + ill appearing and + thin; no acute distress Respiratory: no respiratory distress, no labored breathing and no retractions Auscultation: no crackles, no rales, no rhonchi and no wheezes Cardiovascular: Rate/Rhythm: regular rate, regular rhythm and + tachycardic Heart Sounds: normal S1 and normal S2; no murmur Vessels: radial pulses present; no JVD and no carotid bruit Extremities: + edema (2+ bilateral pretibial edema) Gastrointestinal (Abdomen): Inspection/Auscultation: normal bowel sounds; abdomen not distended Percussion/Palpation: abdomen soft; abdomen nontender, no guarding and abdomen not rigid Neurologic: CN's II-XI intact bilaterally and moves all extremities; no focal motor deficits Results & Data Vital Signs (Past 12 Hours) Vital Signs Temp Pulse Pulse Pulse Resp BP Pulse Ox 10/28/22 12:12 10/28/22 10:49 80 92/52 L 10/28/22 07:17 36.6 C 82 20 93/65 L 95 10/28/22 07:54 86 10/28/22 06:29 135 H 92/56 L 93 10/28/22 03:27 36.6 C 93 H 18 102/63 95 10/28/22 02:54 72 O2 Del Method O2 Flow Rate 10/28/22 12:12 Nasal Cannula 2 10/28/22 10:49 10/28/22 07:17 Nasal Cannula 2 10/28/22 07:54 10/28/22 06:29 Nasal Cannula 2 10/28/22 03:27 Room Air 10/28/22 02:54 Laboratory Results CBC 10/27/22 10/28/22 Range/Units 23:32 04:11 WBC 4.94 (4.8-10.8) K/ul RBC 2.90 L (4.20-5.40) M/uL Hgb 10.2 L 9.3 L (12.0-16.0) g/dl Hct 31.8 L 29.3 L (37.0-47.0) % Plt Count 168 (130-400) K/uL Neut # (Auto) 4.41 (1.40-6.50) K/uL Lymph # (Auto) 0.33 L (1.20-3.40) K/uL [place] # (Auto) 0.19 (0.11-0.59) K/uL Eos # (Auto) 0.00 (0.00-0.50) K/uL Baso # (Auto) 0.00 (0.00-0.20) K/uL Comprehensive Metabolic Panel 10/27/22 10/28/22 Range/Units 23:32 04:11 Sodium 136 136 (136-145) mmol/L Potassium 4.6 D 4.8 (3.5-5.1) mmol/L Chloride 103 103 (98-107) mmol/L Carbon Dioxide 27 27 (21-32) mmol/L BUN 14 17 (6-23) mg/dl Creatinine 0.61 0.63 (0.6-1.2) mg/dl Glucose 148 H 143 H (70-99(Fasting)) mg/dl Calcium 8.0 L 8.0 L (8.6-10.3) mg/dl Intake and Output 10/27/22 10/28/22 10/28/22 22:59 06:59 14:59 Intake Total 931.667 / 2251.667 1320.000 / 2251.667 200 / 200 Output Total 350 / 1020 270 / 1020 Balance 581.667 / 2874.629 9351.000 / 1231.667 200 / 200 Intake: IV 331.667 / 5562.251 1231.000 / 1651.667 200 / 200 D5nss + 20Meq KCl 20 meq In 1, 331.667 / 655.000 323.333 / 655.000 000 ml @ 100 mls/hr IV .Q10H KVNG Rx#:[id number] Lactated Ringer's 1,000 ml @ 996.667 / 996.667 200 mls/hr IV .Q5H ONE Rx#: [id number] Magnesium Sulfate / D5w 1 gm In 200 / 200 100 ml @ 50 mls/hr IV Q2H KVNG Rx#:[id number] IV Perioperative 600 / 600 Output: Estimated Blood Loss 50 / 50 Urine Amount (Catheter) 300 / 970 270 / 970 Delcid/Indwelling 300 / 970 270 / 970 Other: Other Intake Source sips Weight 42.6 kg (4) Anemia Anemia type: unspecified type Qualified Code(s): D64.9 - Anemia, unspecified
--- NOTE | 2022-10-28 16:37 | Electrocardiogram Report ---
Test Reason : Blood Pressure : / mmHG Vent. Rate : 089 BPM Atrial Rate : 089 BPM P-R Int : 200 ms QRS Dur : 090 ms QT Int : 340 ms P-R-T Axes : 085 083 160 degrees QTc Int : 413 ms Sinus rhythm with occasional Premature ventricular complexes Low voltage QRS Nonspecific T wave abnormality Abnormal ECG When compared with ECG of 25-OCT-2022 15:55, Premature ventricular complexes are now Present Nonspecific T wave abnormality now evident in Anterolateral leads Confirmed by Narayan Rivera ([id number]) on 10/28/2022 4:37:36 PM Referred By: REFERRED SELF Confirmed By:Narayan Rivera
--- NOTE | 2022-10-28 16:53 | Electrocardiogram Report ---
Test Reason : Blood Pressure : / mmHG Vent. Rate : 094 BPM Atrial Rate : 094 BPM P-R Int : 196 ms QRS Dur : 090 ms QT Int : 324 ms P-R-T Axes : 083 080 091 degrees QTc Int : 405 ms Sinus rhythm with Premature supraventricular complexes and with occasional Premature ventricular comp lexes Low voltage QRS Nonspecific ST and T wave abnormality Abnormal ECG When compared with ECG of 28-OCT-2022 10:13, (unconfirmed) Premature supraventricular complexes are now Present Confirmed by Narayan Rivera ([id number]) on 10/28/2022 4:53:33 PM Referred By: REFERRED SELF Confirmed By:Narayan Rivera
--- NOTE | 2022-10-28 16:53 | Electrocardiogram Report ---
Test Reason : Blood Pressure : / mmHG Vent. Rate : 134 BPM Atrial Rate : 134 BPM P-R Int : 184 ms QRS Dur : 086 ms QT Int : 292 ms P-R-T Axes : 000 -27 164 degrees QTc Int : 436 ms Sinus tachycardia Low voltage QRS Inferior infarct , age undetermined Abnormal ECG When compared with ECG of 28-OCT-2022 13:10, (unconfirmed) Significant changes have occurred Confirmed by Narayan Rivera ([id number]) on 10/28/2022 4:53:53 PM Referred By: REFERRED SELF Confirmed By:Narayan Rivera
[2022-10-28] MEDS ORDERED: ALBUMIN 25% 25 GM/100 ML VIAL IV ONE (19:47)
[2022-10-28 20:49] LABS: Calcium 7.8 mg/dl (8.6-10.3); Creatinine Clr Calc Pharmacy 48.9 ml/min; Est GFR (African American) 100.3 ml/min; Est GFR (Non-African American) 86.6 ml/min; Potassium 4.6 mmol/L (3.5-5.1)
[2022-10-28 22:59] LABS: Hematocrit (blood only) 27.8 % (37.0-47.0); Hemoglobin 8.8 g/dl (12.0-16.0)
[2022-10-28 23:29] LABS: Partial Thromboplastin Time 28.9 Seconds (21.0-31.0)
[2022-10-28 23:36] LABS: Allen Test Pos (Pos); Base Excess ABG 1.7 mEq/L (-9-1.8); HCO3 ABG 27 mmol/L (19-24); Oxygen Saturation ABG 89.3 % (90-95); PCO2 ABG 42 mmHg (35-46); PO2 ABG 56 mmHg (80-95); pH ABG 7.41 (7.35-7.45)
[2022-10-29] MEDS ORDERED: DEXAMETHASONE SOD INJ 4 MG/ML VIAL IV STA ×2 (01:54→23:47)
--- NOTE | 2022-10-29 01:54 | Communication Note ---
Date of Service: October 29, 2022 SBP noted to be 80s overnight as per RN. Patient asymptomatic as per RN. Lactic acid within normal limits. AP Hypotension Noted since last months confinement. Possible adrenal insufficiency hx steroid Rx for COPD exacerbation 08/2022 IV Decadron 1 dose now Check serum ACTH, cortisol levels with a.m. blood work.
[2022-10-29] MEDS ORDERED: dexAMETHasone 4 MG in SYRINGE 0 ML IV ONE (02:00)
[2022-10-29] MEDS: HEPARIN SOD 5,000 UNIT/0.5 ML VIAL SQ SCH ×3 (05:52→20:11)
[2022-10-29] MEDS: LEVOTHYROXINE SODIUM 100 MCG TABLET PO SCH (05:52)
--- NOTE | 2022-10-29 06:41 | Orthopedic Progress Note ---
Date of Service October 29, 2022 Assessment & Plan (1) Fracture of hip, left, closed: Plan: Postop day 2 status post left TFN. PT/OT protocols. Weightbearing as tolerated. DVT prophylaxis-heparin subcu 5000 units every 8 hours. SCDs Pain management as written. ortho to sign off at this time. she will need f/u with Dr Scott team at [facility] [place], for appt. d/c instructions placed in chart. Admission and Anticipated Discharge Date Admission Date: October 24, 2022 Subjective Postop day 2 Patient is laying in bed, just awoke. has no complaints. Pain is controlled. Physical Exam Physical Exam: Vital Signs Temp Pulse Pulse Pulse Resp BP Pulse Ox 10/28/22 22:19 79 10/29/22 03:31 36.6 C 79 16 90/56 L 90 10/28/22 22:00 10/28/22 23:00 36.4 C L 84 20 87/57 L 89 L 10/28/22 19:35 94 10/28/22 19:32 36.4 C L 87 18 84/41 L 88 L 10/28/22 18:15 78 L 10/28/22 18:21 94 10/28/22 14:42 36.5 C 86 20 103/61 92 10/28/22 15:22 84 10/28/22 14:23 87 105/58 L 10/28/22 12:12 10/28/22 10:49 80 92/52 L 10/28/22 07:17 36.6 C 82 20 93/65 L 95 10/28/22 07:54 86 O2 Del Method O2 Flow Rate 10/28/22 22:19 10/29/22 03:31 Nasal Cannula 4 10/28/22 22:00 Nasal Cannula 4 10/28/22 23:00 Nasal Cannula 4 10/28/22 19:35 Nasal Cannula 4 10/28/22 19:32 Nasal Cannula 4 10/28/22 18:15 Room Air 10/28/22 18:21 Nasal Cannula 2 10/28/22 14:42 Nasal Cannula 2 10/28/22 15:22 10/28/22 14:23 10/28/22 12:12 Nasal Cannula 2 10/28/22 10:49 10/28/22 07:17 Nasal Cannula 2 10/28/22 07:54 Intake and Output 10/28/22 10/28/22 10/29/22 14:59 22:59 06:59 Intake Total 200 / 1420 1120 / 1420 100 / 1420 Balance 200 / 1420 1120 / 1420 100 / 1420 Intake: IV 200 / 1300 1000 / 1300 100 / 1300 Albumin 25% 25 gm In 100 ml @ 100 / 100 50 mls/hr IV O NE ONE Rx#: [id number] Lactated Ringe r's 1,000 ml @ 75 1000 / 1000 mls/hr IV .Q13 H20M ONE Rx#: [id number] Magnesium Sulf ate / D5w 1 gm In 200 / 200 100 ml @ 50 ml s/hr IV Q2H KVNG Rx#:[id number] Oral 120 / 120 Other: Other Intake Eryn rce 100% of lunch - Si ps. # Unmeasured Voi ds 4 Weight 42.6 kg 42.4 kg Weight Measureme nt Method Built in [facility] Patient Weight 10/29/22 06:59 Weight 42.4 kg dressings are clean and dry. very minimal serous drainage noted. Calves are soft nontender. Neurovascular intact. Results & Data Vital Signs (Past 12 Hours) Vital Signs Temp Pulse Pulse Resp BP Pulse Ox O2 Del Method 10/28/22 22:19 79 10/29/22 03:31 36.6 C 79 16 90/56 L 90 Nasal Cannula 10/28/22 22:00 Nasal Cannula 10/28/22 23:00 36.4 C L 84 20 87/57 L 89 L Nasal Cannula 10/28/22 19:35 94 Nasal Cannula 10/28/22 19:32 36.4 C L 87 18 84/41 L 88 L Nasal Cannula O2 Flow Rate 10/28/22 22:19 10/29/22 03:31 4 10/28/22 22:00 4 10/28/22 23:00 4 10/28/22 19:35 4 10/28/22 19:32 4
[2022-10-29] MEDS: METOPROLOL TARTRATE 25 MG TAB PO SCH ×2 (08:28→13:58)
[2022-10-29] MEDS: PANTOprazole 40 MG TAB PO SCH (08:39)
[2022-10-29] MEDS: OXYBUTYNIN CHLORIDE XL 5 MG TABCR PO SCH (08:39)
--- NOTE | 2022-10-29 09:56 | XRay Report ---
XR chest 1V portable CLINICAL HISTORY: low o2 COMPARISON STUDY: Chest CT September 25, 2022. Chest radiograph October 24, 2022. FINDINGS: Right paratracheal fullness with leftward deviation of the trachea is noted. Small to moder ate right and small left pleural effusions have developed. Extensive bibasilar opacities have develop ed. There is mild interstitial thickening. IMPRESSION: 1. Right paratracheal fullness, as described above. A follow-up nonemergent chest CT with contrast to exclude lymphadenopathy is recommended. 2. Interval development of small to moderate right and small left pleural effusions with extensive bi basilar opacities which favor pneumonia or aspiration pneumonitis. 3. Interstitial thickening. This may reflect mild pulmonary edema. ACT 112: Positive. There are findings on this exam that require communication between the performing entity and the patient following Patient Test Result Information Act ([place] Act 112) guidelines. Electronically signed by: Lev Li M.D. 10/29/2022 9:54 AM
[2022-10-29 10:46] LABS: Hematocrit (blood only) 29.1 % (37.0-47.0); Hemoglobin 9.2 g/dl (12.0-16.0); Mean Corpuscular Hemoglobin 32.2 pg (25.0-34.0); Mean Corpuscular Hgb Conc 31.6 g/dL (32.0-36.0); Mean Corpuscular Volume 101.7 fL (80.0-100.0); Mean Platelet Volume 10.3 fL (9.4-12.4); Platelet Count 148 K/uL (130-400); RDW Coefficient of Variation 17.1 % (11.5-14.5); RDW Standard Deviation 63.6 fL (36.4-46.3); Red Blood Count 2.86 M/uL (4.20-5.40); White Blood Count 7.62 K/ul (4.8-10.8)
[2022-10-29 10:52] LABS: BUN Creatinine Ratio 29.5 (10-20); Calcium 8.5 mg/dl (8.6-10.3); Creatinine Clr Calc Pharmacy 55.8 ml/min; Est GFR (Non-African American) 90.6 ml/min; Potassium 4.5 mmol/L (3.5-5.1)
[2022-10-29 11:15] LABS: Basophils # (auto) 0.02 K/uL (0.00-0.20); Basophils % (auto) 0.3 %; Immature Granulocytes # (auto) 0.02 K/uL (0.01-0.20); Immature Granulocytes % (auto) 0.3 %; Lymphocytes # (auto) 0.29 K/uL (1.20-3.40); Lymphocytes % (auto) 3.8 %; Monocytes % (auto) 2.6 %; Neutrophils # (auto) 7.09 K/uL (1.40-6.50)
[2022-10-29] MEDS ORDERED: OPTIRAY 320 100ml IV ONE (12:12)
--- NOTE | 2022-10-29 12:56 | CT Scan Report ---
CT OF THE CHEST WITH IV CONTRAST CLINICAL HISTORY: Shortness of breath. Abnormal chest radiograph. COMPARISON STUDY: Chest CT September 25, 2022 and chest radiograph performed earlier today. TECHNIQUE: Following IV administration of 91 mL of Optiray, helical axial images of the chest were o btained. Sagittal and coronal reconstructions were viewed as well as maximal intensity projections o n an independent 3-D workstation. Automated exposure control was utilized for the study. A dose low ering technique was utilized adhering to the principles of ALARA. CT DOSE: 235.87 mGy.cm FINDINGS: Prominent right axillary node on image 54 measures 0.8 x 0.7 cm. A right supraclavicular ly mph node on image 22 of 245 measures 2.2 x 1.8 cm. A high right paratracheal lymph node on image 34 m easures 2 x 1.7 cm. A lower right paratracheal lymph node on image 92 measures 3.5 x 3.2 cm. A right hilar lymph node on image 111 measures 2 x 1.9 cm. Mild cardiomegaly is noted. There is no pericardia l effusion. There is mild dilatation of the central pulmonary arteries. No central pulmonary emboli a re identified. There is no thoracic aortic dissection. No pneumothorax. [id number] bilateral p leural effusions are present, right larger than left. Extensive secretions within the bilateral lower lobe segmental bronchi are noted. There also extensive airspace opacities within the lower lobes, gr eater on the right. Patchy additional airspace opacities within the remainder of the lungs are noted. Interlobular septal thickening is present. No fractures or suspicious lesions within the bony thorax are present. Heterogeneity of the spleen is likely due to phase of enhancement. No lesions within vi sualized portions of the liver. IMPRESSION: 1. Pathologic right supraclavicular, mediastinal and right hilar lymphadenopathy. The findings are hi ghly suggestive of a neoplastic process and differential diagnosis include metastatic disease, centra l lung malignancy and lymphoma. Pulmonary consultation is recommended. 2. Extensive bilateral lower lobe airspace consolidation. The findings may reflect aspiration pneumon ia given secretions within the lower lobe bronchi. Multifocal pneumonia could appear similar. 3. Interlobular septal thickening consistent with interstitial pulmonary edema. Patchy groundglass op acities within the upper lobes may reflect alveolar pulmonary edema. 4. Khmwb-fi-[id number] bilateral pleural effusions. ACT 112: Positive. There are findings on this exam that require communication between the performing entity and the patient following Patient Test Result Information Act ([place] Act 112) guidelines. Electronically signed by: Lev Li M.D. 10/29/2022 12:54 PM
[2022-10-29] MEDS ORDERED: FUROSEMIDE 40 MG/4 ML VIAL IV ONE (15:36)
--- NOTE | 2022-10-29 15:42 | Cardiology Progress Note ---
Date of Service October 29, 2022 Assessment & Plan (1) Atrial flutter, paroxysmal: (2) Extremity edema: (3) Protein malnutrition: (4) Anemia: (5) Diarrhea: (6) Generalized weakness: (7) Postsurgical hypothyroidism: Plan 72-year-old female with recurrent episodes of paroxysmal supraventricular tachycardia, likely atrial flutter with 2-1 conduction although not confirmed by ECG. Dysrhythmia occurring in the postoperative setting. Beta-jenn held since admission and restarted this AM. Volume depleted with borderline hypotension at rest. Recurrent dysrhythmia precipitated by beta-jenn withdrawal, intravascular volume depletion, and postoperative state. Agree with gentle IV hydration. Discontinue metoprolol succinate in favor of metoprolol tartrate 12.5 mg 3 times daily. Continue to monitor telemetry. ECG with recurrent episodes of tachycardia to confirm diagnosis. Patient is not a strong candidate for long-term anticoagulation due to anemia and fall risk.(Admitted with frequent falls and hip fracture) Edema related to severe protein malnutrition. Encourage p.o. intake. Would not add additional furosemide at this time with ongoing hypotension. Reassess electrolytes in a.m. and supplement as indicated. 10/29/2022 Patient examined for episodes of paroxysmal atrial fibrillation. Patient once again not receiving beta-jenn due to relative hypotension. No sustained arrhythmias We will retrial metoprolol succinate at 12.5 mg every afternoon, discontinue metoprolol tartrate Admission and Anticipated Discharge Date Admission Date: October 24, 2022 Subjective Patient seen and examined, chart reviewed. Generally stable but has had relatively low blood pressures past 24 hours. Did not receive metoprolol tartrate due to parameters. Eating and drinking okay. No fevers or chills. Possible notes palpitations at times. Moderate cough Review of Systems Review of Systems: All systems reviewed & are unremarkable except as noted in Subjective Physical Exam Constitutional: + ill appearing, + thin and + cachectic; no acute distress ENMT: external ear and nose normal, oropharynx normal Respiratory: no respiratory distress, no labored breathing and no retractions Auscultation: + rhonchi; no crackles, no rales and no wheezes Cardiovascular: Rate/Rhythm: regular rate and regular rhythm Heart Sounds: normal S1 and normal S2; no murmur Vessels: radial pulses present; no JVD and no carotid bruit Gastrointestinal (Abdomen): Inspection/Auscultation: normal bowel sounds; abdomen not distended Percussion/Palpation: abdomen soft; abdomen nontender, no guarding and abdomen not rigid Neurologic: CN's II-XI intact bilaterally and moves all extremities; no focal motor deficits Results & Data Vital Signs (Past 12 Hours) Vital Signs Temp Pulse Pulse Resp BP BP Pulse Ox 10/29/22 14:41 36.4 C L 77 20 104/62 93 10/29/22 11:52 36.6 C 81 20 97/62 L 100 10/29/22 09:53 10/29/22 08:49 68 10/29/22 07:20 36.7 C 69 20 99/65 L 90 O2 Del Method O2 Flow Rate 10/29/22 14:41 Nasal Cannula 5 10/29/22 11:52 Nasal Cannula 5 10/29/22 09:53 Nasal Cannula 5 10/29/22 08:49 10/29/22 07:20 Nasal Cannula 5 Laboratory Results Laboratory Results - last 24 hr 10/28/22 10/28/22 10/28/22 20:12 20:12 20:12 WBC RBC Hgb Cancelled Hct Cancelled MCV MCH MCHC RDW Std Deviation RDW Coeff of Minal Plt Count MPV Immature Gran % (Auto) Neut % (Auto) Lymph % (Auto) Travis % (Auto) Eos % (Auto) Baso % (Auto) Neut # (Auto) Lymph # (Auto) Travis # (Auto) Eos # (Auto) Baso # (Auto) Immature Gran # (Auto) APTT PTT Ratio ABG pH Cancelled ABG pCO2 Cancelled ABG pO2 Cancelled ABG HCO3 Cancelled ABG O2 Saturation Cancelled ABG Base Excess Cancelled Aniket Test Cancelled Barometric Pressure Cancelled Oxygen Given Cancelled Sodium Potassium Chloride Carbon Dioxide Anion Gap BUN Creatinine Est Cr Clr Drug Dosing Est GFR ( Amer) Est GFR (Non-Af Amer) BUN/Creatinine Ratio Glucose Lactate 1.4 Calcium Random Cortisol ACTH 10/28/22 10/28/22 10/28/22 20:12 20:12 22:26 WBC RBC Hgb 8.8 L Hct 27.8 L MCV MCH MCHC RDW Std Deviation RDW Coeff of Minal Plt Count MPV Immature Gran % (Auto) Neut % (Auto) Lymph % (Auto) Travis % (Auto) Eos % (Auto) Baso % (Auto) Neut # (Auto) Lymph # (Auto) Travis # (Auto) Eos # (Auto) Baso # (Auto) Immature Gran # (Auto) APTT Cancelled PTT Ratio Cancelled ABG pH ABG pCO2 ABG pO2 ABG HCO3 ABG O2 Saturation ABG Base Excess Aniket Test Barometric Pressure Oxygen Given Sodium 133 L Potassium 4.6 Chloride 102 Carbon Dioxide 25 Anion Gap 6 BUN 21 Creatinine 0.70 Est Cr Clr Drug Dosing 48.9 Est GFR ( Amer) 100.3 Est GFR (Non-Af Amer) 86.6 BUN/Creatinine Ratio 30.0 H Glucose 118 H Lactate Calcium 7.8 L Random Cortisol ACTH 10/28/22 10/28/22 10/29/22 22:26 22:35 06:27 WBC RBC Hgb Hct MCV MCH MCHC RDW Std Deviation RDW Coeff of Minal Plt Count MPV Immature Gran % (Auto) Neut % (Auto) Lymph % (Auto) Travis % (Auto) Eos % (Auto) Baso % (Auto) Neut # (Auto) Lymph # (Auto) Travis # (Auto) Eos # (Auto) Baso # (Auto) Immature Gran # (Auto) APTT 28.9 PTT Ratio 1.0 ABG pH 7.41 ABG pCO2 42 ABG pO2 56 L ABG HCO3 27 H ABG O2 Saturation 89.3 L ABG Base Excess 1.7 Aniket Test Pos Barometric Pressure Oxygen Given 5 L Sodium Potassium Chloride Carbon Dioxide Anion Gap BUN Creatinine Est Cr Clr Drug Dosing Est GFR ( Amer) Est GFR (Non-Af Amer) BUN/Creatinine Ratio Glucose Lactate Calcium Random Cortisol 9.58 ACTH 10/29/22 10/29/22 10/29/22 06:27 06:32 06:32 WBC 7.62 RBC 2.86 L Hgb 9.2 L Hct 29.1 L MCV 101.7 H MCH 32.2 MCHC 31.6 L RDW Std Deviation 63.6 H RDW Coeff of Minal 17.1 H Plt Count 148 MPV 10.3 Immature Gran % (Auto) 0.3 Neut % (Auto) 93.0 Lymph % (Auto) 3.8 Travis % (Auto) 2.6 Eos % (Auto) 0.0 Baso % (Auto) 0.3 Neut # (Auto) 7.09 H Lymph # (Auto) 0.29 L Travis # (Auto) 0.20 Eos # (Auto) 0.00 Baso # (Auto) 0.02 Immature Gran # (Auto) 0.02 APTT PTT Ratio ABG pH ABG pCO2 ABG pO2 ABG HCO3 ABG O2 Saturation ABG Base Excess Aniket Test Barometric Pressure Oxygen Given Sodium 135 L Potassium 4.5 Chloride 103 Carbon Dioxide 29 Anion Gap 3 BUN 18 Creatinine 0.61 Est Cr Clr Drug Dosing 55.8 Est GFR ( Amer) 105.0 Est GFR (Non-Af Amer) 90.6 BUN/Creatinine Ratio 29.5 H Glucose 109 H Lactate Calcium 8.5 L Random Cortisol ACTH Pending (4) Anemia Anemia type: unspecified type Qualified Code(s): D64.9 - Anemia, unspecified
--- NOTE | 2022-10-29 15:59 | Hospitalist Progress Note ---
Date of Service October 29, 2022 Assessment & Plan (1) Generalized weakness: (2) Weight loss: (3) C. difficile diarrhea: (4) PSVT (paroxysmal supraventricular tachycardia): (5) Bradycardia: (6) Postsurgical hypothyroidism: (7) Leg edema: (8) Hydronephrosis, right: (9) COPD (chronic obstructive pulmonary disease): (10) Fracture of hip, left, closed: Plan This is a 72yo F with a PMH of history of B12 deficiency, C. difficile infection, COPD, hypothyroidism, pulmonary hypertension and other medical problems listed below who presents with generalized weakness and recurrent falls at home. Patient with recurrent admissions this summer (fourth since August, most recently admitted 10/12-10/21) for dizziness, generalized weakness, severe protein calorie malnutrition and weight loss of 25 lbs in 1 month as well as R hydronephrosis, ongoing diarrhea and BLE edema. SOB/Hypotension Overnight with episodes of persistent hypotension Increasing oxygen requirement Chest XRAY ordered overnight- showed paratracheal fullness, pleural effusions, concern for aspiration pneumonia/pneumonitis, pulm edema. Received fluids and albumin overnight. Chest CT today noting concerning pathological R supraclavicular, mediastinal and R hilar lymphadenopathy concerning for a neoplastic process such as metastasis, central lung malignancy and lymphoma. Also noted concerns for aspiration pneumonia, pulmonary edema and pleural effusions. Pulmonary consult, IV Lasix 40mg ONE given, started on zosyn. Consider pressor support if BPs remain low after lasix. Was started on IV decadron overnight, cortisol level normal, ACTH pending. Intertrochanteric fracture of left hip Likely secondary to osteoporosis with recent fall s/p L hip short trochanteric femoral nail placement by Dr. Scott on 10/27/22 Appreciate ortho recs-PT/OT, pain control, heparin SQ for DVT prophylaxis Generalized weakness Frequent falls Ongoing for the past several weeks Seen by PT/OT last admission, felt ok to return home but feels weaker again with ongoing persistent diarrhea, BLE edema Fall precautions, PT/OT again, likely to benefit from rehab Has had diarrhea and got dizzy with ambulation No loss of consciousness and no significant injury Diarrhea Noted positive C. difficile gene on 09/30 with negative toxin. Outpatient study revealed apositive toxin. Completed PO vanco course per GI rec last admission H/o recent norovirus on stool studies but per ID, this is not an active infection KUB with nonobstructive bowel gas pattern. Mild to moderate colonic fecal retention Holding Linzess for now GI consulted -appreciate input and recommendation Diarrhea currently resolved. Hydronephrosis, right Present since August 2022 Lasix emptying study done by urology as an outpatient which shows severe obstruction It is recommended by urologist that she could undergo cystoscopy with trial stent placement Scheduled to follow-up with urology next month Afebrile, renal function at baseline Severe protein calorie malnutrition Weight loss Adequate appetite - thought to possibly be related to malabsorption vs malignancy on previous admission, EGD biopsy unremarkable Cholestyramine was stopped by GI as it may be inhibiting absorption of her Synthroid medication and contributing to constipation and leg edema and directly Continue folate supplementation Nutrition advised use of multivitamin BLE edema Worsening peripheral edema and anasarca on CT abd/pelvis over last few weeks Echo 09/26/2022-EF 55 to 60%, right atrium moderately dilated, moderate tricuspid regurgitation, mild pulmonary hypertension Received IV Lasix 20 mg in the ED previous admission SCDs, bilateral venous dopplers -no evidence of deep venous thrombosis Significant edema involving the legs-advised to elevate the legs while in bed and even when sitting down Postsurgical hypothyroidism Free T4 0.85 within range Continue increased dose of levothyroxine 100mcg Also had incidental finding of neck adenopathy on carotid Doppler during previous admission, needs outpatient ultrasound-guided FNA We will continue with replacement therapy PSVT (paroxysmal supraventricular tachycardia) Also with history of bradycardia with HR 44 on admission. Hold beta jenn for now, monitor on telemetry Folate deficiency Folate mildly low 4.91, normal vitamin B12 on previous admission Cont replacement DVT Ppx: SQ heparin Code status: FULL PCP: Erasto Dispo: Admitted to [facility] Admission and Anticipated Discharge Date Admission Date: October 24, 2022 Subjective Pt seen this AM. Noted by nursing that she sounded "wet", cough was worsening. Overnight had episodes of hypotension, was started on dexamethasone. States that she has SOB, worse at night. Review of Systems Review of Systems: All systems reviewed & are unremarkable except as noted in Subjective Physical Exam Physical Exam: General: Alert, oriented. No acute distress, appears cachectic Psych: Appropriate mood and affect HEENT: NC/AT CV: RRR, Normal s1, s2. Resp: Breath sounds coarse bilaterally Abdomen:Soft Extremities: ++ edema in lower extremities bilaterally. Results & Data Results & Data Vital Signs (Past 12 Hours) Vital Signs Temp Pulse Pulse Resp BP BP Pulse Ox 10/29/22 15:44 88 10/29/22 14:41 36.4 C L 77 20 104/62 93 10/29/22 11:52 36.6 C 81 20 97/62 L 100 10/29/22 09:53 10/29/22 08:49 68 10/29/22 07:20 36.7 C 69 20 99/65 L 90 O2 Del Method O2 Flow Rate 10/29/22 15:44 10/29/22 14:41 Nasal Cannula 5 10/29/22 11:52 Nasal Cannula 5 10/29/22 09:53 Nasal Cannula 5 10/29/22 08:49 10/29/22 07:20 Nasal Cannula 5
[2022-10-29] MEDS ORDERED: PIPERACILLIN/TAZOBACTAM 4.5 GM in DEXTROSE 5% 100 ML IV ONE (16:00)
--- NOTE | 2022-10-29 16:03 | Pulmonary Consultation ---
Date of Consultation October 29, 2022 Assessment & Plan (1) Acute respiratory failure with hypoxia: (2) Pleural effusion: (3) Multilobar lung infiltrate: (4) Atrial flutter, paroxysmal: (5) Current smoker: (6) Pulmonary hypertension: Plan CT chest 10/29/2022 personally reviewed: Bilateral apical pleural scarring Dense consolidative process bilateral lower lobes Increased interlobular markings bilaterally Secretions in the RBI going into the right lower lobe Significant mediastinal lymphadenopathy right clavicular lymphadenopathy 1.8 cm x 2.2 cm, station 2P lymphadenopathy 1.7 cm x 2 cm Lymphadenopathy was also appreciated on CT chest which was done 09/25/2022 along with right lower lobe secretions 2D echo 09/26/2022: EF 55-60%, RV normal in size and function, moderate TR, PASP 47 mmHg, grade 1 diastolic dysfunction ABG 10/28/2022: 7.41/42/6 on 5 L -- Acute hypoxic respiratory failure with multilobar pneumonia Multifactorial Bilateral lower lobe pneumonia Bilateral pleural effusion -- Mediastinal with supraclavicular lymphadenopathy Likely secondary to underlying malignancy --Bilateral pleural effusion Right > left Continue with diuresis Interlobular thickening could be lymphatic spread versus CHF --Pulmonary hypertension Combination of type I and type II --Current smoker > [id number] smoking history Plan: In/out: +7 L since coming to the hospital Patient will benefit from biopsy of the right supraclavicular lymph node by IR on 10/31/2022. Hold all anticoagulation on 10/30/2022 If they are not able to get the results then EBUS can be considered Strict in and out. Continue with diuretics to keep the patient negative balance O2 supplementation to keep oxygen saturation between 90-92% Flutter valve, hypertonic saline and DuoNebs Recommend nasal MRSA. If positive start vancomycin Recommend MRI of the brain if not already done I would recommend swallow evaluation as well given the secretions in the RBI and left lower lobe Please note the above document was generated using voice recognition software. It may contain grammatical, syntax or spelling errors.Any formal questions or concerns about the content, text or information contained within the body of this dictation should be directly addressed to the provider for clarification. History of Present Illness Attending Physician: Tamia Walker MD History of Present Illness 72-year-old female present to the hospital with fall was found to have intertrochanteric fracture Past medical history: A-fib, protein calorie malnutrition, hypothyroidism s/p thyroidectomy Pulmonary consulted for bilateral pleural effusion and mediastinal lymp hadenopathy At the time of examination patient was on 4 L nasal cannula saturating 95 to 96% Her blood pressure systolic was in the high 90s. She denied any chest pain Shortness of breath is there especially on minimal exertion. Does complain of choking episodes with pills. Denies any other difficulty swallowing Has lost significant weight unintentionally in the last couple of months. Hoarseness of voice was also new started in the last couple of months No dysuria, no diarrhea No headache, no blurry vision Coughing up clear phlegm. Denies any hemoptysis Social history:> [id number] smoking history, currently smoking 5-6 cigarettes on a daily basis. No history of lung cancer in the family Colon cancer in mother Allergies Allergy/AdvReac Type Severity Reaction Status Date / Time adhesive tape Allergy Unknown Redness of Verified 10/24/22 16:26 Skin morphine Allergy Unknown shock, Verified 10/17/22 08:28 dspnea neomycin Allergy Unknown Unknown Verified 10/24/22 16:26 Home Medications Medication Instructions Recorded Confirmed Type metoprolol succinate 25 mg 12.5 mg PO DAILY #15 tabs 08/22/22 10/24/22 Rx tablet,extended release 24 hr oxybutynin chloride 5 mg 5 mg PO QAM 09/25/22 10/24/22 History tablet,extended release 24 hr ipratropium 0.5 mg-albuterol 3 mg 3 ml NEB QIDR PRN shortness of 10/01/22 10/24/22 Rx (2.5 mg base)/3 mL nebulization breath or wheezing 30 days #90 mL soln pantoprazole 40 mg tablet,delayed 40 mg PO QAM 30 days #30 tabs 10/01/22 10/24/22 Rx release famotidine 40 mg tablet 40 mg PO HS PRN Heartburn 10/12/22 10/24/22 History linaclotide 145 mcg capsule 145 mcg PO DAILY #30 caps 10/17/22 10/24/22 Rx (Linzess) vancomycin 125 mg capsule 125 mg PO Q6H #12 caps 10/17/22 10/24/22 Rx levothyroxine 100 mcg tablet 100 mcg PO DAILY #30 tabs 10/20/22 10/24/22 Rx (Synthroid) loperamide 2 mg capsule 2 mg PO UD PRN diarrhea #30 caps 10/20/22 10/24/22 Rx Patient History Medical History COPD (chronic obstructive pulmonary disease) Postsurgical hypothyroidism PSVT (paroxysmal supraventricular tachycardia) Reflux esophagitis Vitamin D deficiency Surgical History Hx of colonoscopy Hx of lumbosacral spine surgery x3 Hx of thyroidectomy Family History Other Breast cancer Social History Smoking Status: Current every day smoker Tobacco Type: Cigarettes Cigarettes Per Day: 1 pack a week; Second Hand Exposure: Yes; Do You Dip or Chew Tobacco: No; Hx Alcohol Use: No Hx Substance Use: No Preferred Language: Kyrgyz Communication Ability: Effective 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: No Beliefs That Will Affect Care: None Current Living Situation: Spouse Current Living Situation Comment: home Feels Safe at Home: Yes Safety Concerns: Feels Safe At This Time Assistive Devices: Cane Review of Systems Review of Systems: All systems reviewed & are unremarkable except as noted in HPI & below Physical Exam Physical Exam: Constitutional: No acute distress HEENT: EOMI, PERRLA, frail-appearing Respiratory system: Decreased air entry bilaterally, no wheeze, rhonchi, positive crackles bilateral lower lobes CVS: S1-S2 positive, no murmurs or gallops Abdomen: Soft, nontender, nondistended, positive bowel sounds x4 Extremities: +2 pulses bilaterally radialis/ dorsalis pedis, no cyanosis +3 pitting edema bilateral lower extremity Neuro: Awake alert oriented x3 Psych: Normal mood and affect G/U: Positive Delcid Skin: no rashes, warm and dry Lymphatic: no cervical or axillary lymphadenopathy Results & Data Results & Data Vital Signs (Past 12 Hours) Vital Signs Temp Pulse Pulse Resp BP BP Pulse Ox 10/29/22 15:44 88 10/29/22 14:41 36.4 C L 77 20 104/62 93 10/29/22 11:52 36.6 C 81 20 97/62 L 100 10/29/22 09:53 10/29/22 08:49 68 10/29/22 07:20 36.7 C 69 20 99/65 L 90 O2 Del Method O2 Flow Rate 10/29/22 15:44 10/29/22 14:41 Nasal Cannula 5 10/29/22 11:52 Nasal Cannula 5 10/29/22 09:53 Nasal Cannula 5 10/29/22 08:49 10/29/22 07:20 Nasal Cannula 5 Laboratory Results 10/29/22 06:32 10/29/22 06:32 PG Care Time/CCT Total # of Minutes Spent Total Time Spent with Patient: Total time spent is greater than 50% in coordination of care (as documented) at patient's floor/unit and/or counseling patient: Coding Level of Care Code 48069 INT INP/OBS CARE 3/75MIN Diagnoses Acute respiratory failure with hypoxia J96.01 Pleural effusion J90 Multilobar lung infiltrate R91.8 Atrial flutter, paroxysmal I48.92 Current smoker F17.200 Pulmonary hypertension I27.20
[2022-10-29] MEDS: VITAMIN B COMPLEX TAB PO SCH (17:06)
[2022-10-29] MEDS: METOPROLOL SUCC 25MG EXT REL TAB PO SCH (20:07)
[2022-10-29] MEDS: FUROSEMIDE 40 MG/4 ML VIAL IV SCH (20:11)
[2022-10-29] MEDS: FORMOTEROL 20 MCG/2 ML VIAL NEB SCH (20:34)
[2022-10-29] MEDS: SODIUM CHLOR 7% 4 ML NEB NEB SCH (20:34)
[2022-10-29] MEDS: BUDESONIDE 0.25 MG/2 ML VIAL (PULMICORT) NEB SCH (20:34)
[2022-10-29] MEDS ORDERED: ALBUMIN 25% 25 GM/100 ML VIAL IV ONE (22:28)
[2022-10-29] MEDS ORDERED: MAGNESIUM SULFATE / D5W 1 GM/100 ML BAG IV SCH (22:30)
--- NOTE | 2022-10-29 22:34 | Communication Note ---
Date of Service: October 29, 2022 10:25 PM Notified by RN of rapid A-fib/flutter, heart rate 1 35-1 40s. SBP 100s as per RN. AP Rapid A-fib borderline BP PCU transfer Digoxin 1 dose now Amiodarone infusion if without improvement. 1110 PM Heart rate 80s after 1 dose digoxin as per RN. 11:45 PM Patient with abnormal breath sounds as per receiving RN upon arrival at PCU. O2 sats 80s on 3 L, RR 14. Patient later noted to have worsening respiratory distress. PPE Chronically ill, underweight, respiratory distress, O2 mask in place Bilateral rhonchi with expiratory wheezes. Chest x-ray as per interpretation bibasilar infiltrates, congestion, effusion right greater than the left AP Worsening hypoxemic respiratory failure Multifactorial COPD exacerbation secondary to possible aspiration pneumonia currently receiving Zosyn CHF, pulmonary hypertension, ongoing diuretic Rx Supplemental O2 baseline ABG Steroid Rx, nebs RTC for COPD exacerbation Continue Zosyn for possible aspiration pneumonia Continue current diuretic regimen
[2022-10-29] MEDS ORDERED: DIGOXIN 250 MCG in SYRINGE 9 ML IV ONE (22:45)
[2022-10-29 22:59] LABS: Magnesium 2.1 mg/dl (1.7-2.4)
[2022-10-29] MEDS ORDERED: XOPENEX/ATROVENT 1.25mg/0.5MG NEB COMBO NEB STA (23:47)
[2022-10-29] MEDS ORDERED: FUROSEMIDE INJ 20 MG/2 ML VIAL IV ONE (23:48)
[2022-10-29] MEDS ORDERED: LEVALBUTEROL 1.25 MG/3 ML NEB NEB STA (23:57)
[2022-10-29] MEDS ORDERED: IPRATROPIUM BROMIDE NEB SOLN 0.02% 2.5 ML VIAL INH STA (23:57)
[2022-10-29] MEDS: FUROSEMIDE INJ 20 MG/2 ML VIAL IV ONE (23:59)
[2022-10-30] MEDS ORDERED: dexAMETHasone 4 MG in SYRINGE 0 ML IV ONE
[2022-10-30] MEDS: FUROSEMIDE INJ 20 MG/2 ML VIAL IV ONE (00:16)
[2022-10-30 00:45] LABS: Allen Test Pos (Pos); Base Excess ABG 11.4 mEq/L (-9-1.8); HCO3 ABG 35 mmol/L (19-24); PCO2 ABG 41 mmHg (35-46); PO2 ABG 55 mmHg (80-95)
[2022-10-30 00:50] LABS: Oxygen Saturation ABG 89.7 % (90-95)
[2022-10-30 00:53] LABS: pH ABG 7.54 (7.35-7.45)
[2022-10-30] MEDS: PIPERACILLIN/TAZOBACTAM 4.5 GM in DEXTROSE 5% 100 ML IV SCH ×3 (02:02→16:59)
[2022-10-30] MEDS: HEPARIN SOD 5,000 UNIT/0.5 ML VIAL SQ SCH ×2 (06:00→16:05)
[2022-10-30] MEDS: LEVOTHYROXINE SODIUM 100 MCG TABLET PO SCH ×2 (06:00→09:12)
[2022-10-30] MEDS ORDERED: LEVALBUTEROL 1.25 MG/3 ML NEB NEB SCH (07:00)
[2022-10-30] MEDS ORDERED: IPRATROPIUM BROMIDE NEB SOLN 0.02% 2.5 ML VIAL INH SCH (07:00)
[2022-10-30] MEDS: FORMOTEROL 20 MCG/2 ML VIAL NEB SCH ×2 (07:01→19:02)
[2022-10-30] MEDS: SODIUM CHLOR 7% 4 ML NEB NEB SCH ×2 (07:02→19:02)
[2022-10-30] MEDS: BUDESONIDE 0.25 MG/2 ML VIAL (PULMICORT) NEB SCH ×2 (07:02→19:02)
[2022-10-30 07:07] LABS: Hematocrit (blood only) 27.3 % (37.0-47.0); Hemoglobin 8.9 g/dl (12.0-16.0); Mean Corpuscular Hemoglobin 31.6 pg (25.0-34.0); Mean Corpuscular Hgb Conc 32.6 g/dL (32.0-36.0); Mean Corpuscular Volume 96.8 fL (80.0-100.0); Mean Platelet Volume 10.3 fL (9.4-12.4); Platelet Count 122 K/uL (130-400); RDW Coefficient of Variation 16.7 % (11.5-14.5); RDW Standard Deviation 59.6 fL (36.4-46.3); Red Blood Count 2.82 M/uL (4.20-5.40); White Blood Count 2.67 K/ul (4.8-10.8)
[2022-10-30 07:09] LABS: Basophils # (auto) 0.01 K/uL (0.00-0.20); Basophils % (auto) 0.4 %; Immature Granulocytes # (auto) 0.01 K/uL (0.01-0.20); Immature Granulocytes % (auto) 0.4 %; Lymphocytes # (auto) 0.15 K/uL (1.20-3.40); Lymphocytes % (auto) 5.6 %; Monocytes # (auto) 0.22 K/uL (0.11-0.59); Monocytes % (auto) 8.2 %; Neutrophils # (auto) 2.28 K/uL (1.40-6.50); Neutrophils % (auto) 85.4 %; Toxic Vacuolation 1+
[2022-10-30 07:12] LABS: Calcium 8.9 mg/dl (8.6-10.3); Potassium 4.3 mmol/L (3.5-5.1)
[2022-10-30 07:17] LABS: BUN Creatinine Ratio 30.1 (10-20); Creatinine Clr Calc Pharmacy 49.3 ml/min; Est GFR (African American) 95.4 ml/min; Est GFR (Non-African American) 82.3 ml/min
--- NOTE | 2022-10-30 07:47 | Hospitalist Progress Note ---
Date of Service October 30, 2022 Assessment & Plan (1) Generalized weakness: (2) Weight loss: (3) C. difficile diarrhea: (4) PSVT (paroxysmal supraventricular tachycardia): (5) Bradycardia: (6) Postsurgical hypothyroidism: (7) Leg edema: (8) Hydronephrosis, right: (9) COPD (chronic obstructive pulmonary disease): (10) Fracture of hip, left, closed: Plan This is a 72yo F with a PMH of history of B12 deficiency, C. difficile infection, COPD, hypothyroidism, pulmonary hypertension and other medical problems listed below who presents with generalized weakness and recurrent falls at home. Patient with recurrent admissions this summer (fourth since August, most recently admitted 10/12-10/21) for dizziness, generalized weakness, severe protein calorie malnutrition and weight loss of 25 lbs in 1 month as well as R hydronephrosis, ongoing diarrhea and BLE edema. Admitted once with recurrent falls at home. S/P L TFN on 10/27/22 with orthopedics. SOB/Hypotension/Pleural Effusions Overnight with episodes of persistent hypotension Increasing oxygen requirement Chest XRAY - showed paratracheal fullness, pleural effusions, concern for aspiration pneumonia/pneumonitis, pulm edema. Chest CT noting concerning pathological R supraclavicular, mediastinal and R hilar lymphadenopathy concerning for a neoplastic process such as metastasis, central lung malignancy and lymphoma. Also noted concerns for aspiration pneumonia, pulmonary edema and pleural effusions. Pulmonary consult- recs appreciated - IV Lasix 40mg, decreased to 20mg daily today, give lasix with albumin -Was started on IV decadron by band instrument repairer, currently on prednisone, cortisol level normal, ACTH pending. Consider switching to hydrocortisone if BP remains low -MRI brain- ordered but holding as pt would not be able to complete due to becoming severely hypotensive whenever she lays down. Pulm/Cirtical care aware but MAP >65 so will defer on ICU admission for pressor support. Continue zosyn for aspiration pneumonia. Pulmonary toilet Atrial Flutter Pt flips in and out on tele One dose of digoxin overnight Appreciate cardiology recs- hold metoprolol based on parameters and consider amiodarone drip if flutter remains persistent Lymphadenopathy Chest CT noting concerning pathological R supraclavicular, mediastinal and R hilar lymphadenopathy concerning for a neoplastic process such as metastasis, central lung malignancy and lymphoma. Appreciate pulmonology recs- "Biopsy of the right supraclavicular lymph node by IR on 10/31/2022." Intertrochanteric fracture of left hip Likely secondary to osteoporosis with recent fall s/p L hip short trochanteric femoral nail placement by Dr. Scott on 10/27/22 Appreciate ortho recs-PT/OT, pain control, heparin SQ for DVT prophylaxis Generalized weakness Frequent falls Ongoing for the past several weeks Seen by PT/OT last admission, felt ok to return home but feels weaker again with ongoing persistent diarrhea, BLE edema Fall precautions, PT/OT again, likely to benefit from rehab Has had diarrhea and got dizzy with ambulation No loss of consciousness and no significant injury Diarrhea Noted positive C. difficile gene on 09/30 with negative toxin. Outpatient study revealed apositive toxin. Completed PO vanco course per GI rec last admission H/o recent norovirus on stool studies but per ID, this is not an active infection KUB with nonobstructive bowel gas pattern. Mild to moderate colonic fecal retention Holding Linzess for now GI previously consulted Diarrhea currently resolved. Hydronephrosis, right Present since August 2022 Lasix emptying study done by urology as an outpatient which shows severe obstruction It is recommended by urologist that she could undergo cystoscopy with trial stent placement Scheduled to follow-up with urology next month Afebrile, renal function at baseline Severe protein calorie malnutrition Weight loss Adequate appetite - thought to possibly be related to malabsorption vs malignancy on previous admission, EGD biopsy unremarkable Cholestyramine was stopped by GI as it may be inhibiting absorption of her Synthroid medication and contributing to constipation and leg edema and directly Continue folate supplementation Nutrition advised use of multivitamin, ordered BLE edema Worsening peripheral edema and anasarca on CT abd/pelvis over last few weeks Echo 09/26/2022-EF 55 to 60%, right atrium moderately dilated, moderate tricuspid regurgitation, mild pulmonary hypertension Received IV Lasix 20 mg in the ED previous admission SCDs, bilateral venous dopplers -no evidence of deep venous thrombosis Significant edema involving the legs-advised to elevate the legs while in bed and even when sitting down Postsurgical hypothyroidism Free T4 0.85 within range Continue increased dose of levothyroxine 100mcg Also had incidental finding of neck adenopathy on carotid Doppler during previous admission, needs outpatient ultrasound-guided FNA We will continue with replacement therapy PSVT (paroxysmal supraventricular tachycardia) Also with history of bradycardia with HR 44 on admission. Hold beta jenn for now, monitor on telemetry Folate deficiency Folate mildly low 4.91, normal vitamin B12 on previous admission Cont replacement DVT Ppx: SQ heparin Code status: FULL PCP: Erasto Dispo: Admitted to [facility] tele Admission and Anticipated Discharge Date Admission Date: October 24, 2022 Subjective Pt seen this AM. States that she "had a night". per band instrument repairer documentation, she had another episode of atrial flutter overnight. Controlled with dose of digoxin. Blood pressures remained low and so metoprolol recommended by cardiology was not given. Review of Systems Review of Systems: All systems reviewed & are unremarkable except as noted in Subjective Physical Exam Physical Exam: General: Alert, oriented. No acute distress, appears cachectic Psych: Appropriate mood and affect HEENT: NC/AT CV: At time of exam regular Resp: Breath sounds coarse bilaterally Abdomen:Soft Extremities: ++ edema in lower extremities bilaterally. Results & Data Results & Data Vital Signs (Past 12 Hours) Vital Signs Temp Pulse Pulse Pulse Resp BP Pulse Ox 10/30/22 07:19 82 10/30/22 07:02 87 20 100 10/29/22 23:55 10/29/22 23:37 82 10/30/22 03:00 36.7 C 92 H 12 98/53 L 97 10/30/22 02:00 91 H 106/78 10/30/22 01:00 88 121/55 L 100 10/30/22 00:15 87 L 10/29/22 23:49 10/30/22 00:15 72 22 79/45 L 10/30/22 00:05 80 26 H 94 10/29/22 20:00 10/29/22 23:48 36.5 C 80 14 95/61 L 90 10/29/22 22:55 36.6 C 142 H 18 101/69 92 10/29/22 22:49 145 H 10/29/22 20:38 79 16 100 O2 Del Method O2 Flow Rate 10/30/22 07:19 10/30/22 07:02 Oxymask 6 10/29/22 23:55 Nasal Cannula 4 10/29/22 23:37 10/30/22 03:00 Oxymask 10/30/22 02:00 10/30/22 01:00 Nasal Cannula 5 10/30/22 00:15 Nasal Cannula 5 10/29/22 23:49 Nasal Cannula 5 10/30/22 00:15 10/30/22 00:05 Nasal Cannula 4 10/29/22 20:00 Nasal Cannula 5 10/29/22 23:48 Nasal Cannula 10/29/22 22:55 Nasal Cannula 3 10/29/22 22:49 10/29/22 20:38 Nasal Cannula 5
--- NOTE | 2022-10-30 07:59 | XRay Report ---
XR chest 1V portable HISTORY: Shortness of breath. COMPARISON: Chest 10/28/2022. FINDINGS: No pneumothorax. Bilateral pleural effusions and bibasilar airspace opacities persist. The heart remains top normal in size. No evidence for pulmonary edema. Mediastinal and right hilar lympha denopathy again noted. IMPRESSION: 1. No significant change in the bilateral lower lobe airspace opacities and bilateral pleural effusio ns. 2. Mediastinal and right hilar lymphadenopathy again noted. ACT 112: Negative or not required by law. Electronically signed by: Morris Lal M.D. 10/30/2022 7:58 AM
[2022-10-30] MEDS ORDERED: XOPENEX/ATROVENT 1.25mg/0.5MG NEB COMBO NEB SCH (09:00)
[2022-10-30] MEDS: predniSONE 20 MG TAB PO SCH (09:02)
[2022-10-30] MEDS: OXYBUTYNIN CHLORIDE XL 5 MG TABCR PO SCH (09:03)
[2022-10-30] MEDS: VITAMIN B COMPLEX TAB PO SCH (09:03)
[2022-10-30] MEDS: PANTOprazole 40 MG TAB PO SCH (09:03)
[2022-10-30] MEDS: FUROSEMIDE 40 MG/4 ML VIAL IV SCH (09:15)
[2022-10-30] MEDS: IPRATROPIUM BROMIDE NEB SOLN 0.02% 2.5 ML VIAL INH SCH ×4 (09:55→19:03)
[2022-10-30] MEDS: LEVALBUTEROL 1.25 MG/3 ML NEB NEB SCH ×4 (09:56→19:03)
[2022-10-30] MEDS ORDERED: ALBUMIN 25% 25 GM/100 ML VIAL IV ONE (10:25)
--- NOTE | 2022-10-30 11:38 | Cardiology Progress Note ---
Date of Service October 30, 2022 Assessment & Plan (1) Atrial flutter, paroxysmal: (2) Extremity edema: (3) Protein malnutrition: (4) Anemia: (5) Diarrhea: (6) Generalized weakness: (7) Postsurgical hypothyroidism: Plan 72-year-old female with recurrent episodes of paroxysmal supraventricular tachycardia, likely atrial flutter with 2-1 conduction although not confirmed by ECG. Dysrhythmia occurring in the postoperative setting. Beta-jenn held since admission and restarted this AM. Volume depleted with borderline hypotension at rest. Recurrent dysrhythmia precipitated by beta-jenn withdrawal, intravascular volume depletion, and postoperative state. Agree with gentle IV hydration. Discontinue metoprolol succinate in favor of metoprolol tartrate 12.5 mg 3 times daily. Continue to monitor telemetry. ECG with recurrent episodes of tachycardia to confirm diagnosis. Patient is not a strong candidate for long-term anticoagulation due to anemia and fall risk.(Admitted with frequent falls and hip fracture) Edema related to severe protein malnutrition. Encourage p.o. intake. Would not add additional furosemide at this time with ongoing hypotension. Reassess electrolytes in a.m. and supplement as indicated. 10/29/2022 Patient examined for episodes of paroxysmal atrial fibrillation. Patient once again not receiving beta-jenn due to relative hypotension. No sustained arrhythmias We will retrial metoprolol succinate at 12.5 mg every afternoon, discontinue metoprolol tartrate 10/30/2022 Once again episode of atrial flutter last evening with slight decrease in blood pressure. Has not been receiving beta-jenn due to hypotension Appreciate pulmonary critical care intervention and plan Hypotension multifactorial received dose, single of Decadron on 10/29/2022 early a.m. with concerns regarding of hypoadrenalism Marked cachexia and hypoalbuminemia present Patient appeared to respond to IV digoxin last evening with atrial flutter We will give oral dose today Agree with use of amiodarone if persistent atrial flutter returns Electrolytes replaced Admission and Anticipated Discharge Date Admission Date: October 24, 2022 Subjective Patient seen and examined, chart and telemetry reviewed. Events of prior evening noted with patient with transient run of atrial flutter last evening. Medication usage has been limited by respiratory concerns and hypotension Received single dose of IV digoxin last evening Currently in sinus rhythm Review of Systems Review of Systems: All systems reviewed & are unremarkable except as noted in Subjective Results & Data Vital Signs (Past 12 Hours) Vital Signs Temp Pulse Pulse Pulse Resp BP Pulse Ox 10/30/22 10:50 80 18 10/30/22 08:20 37.4 C 86 18 92/57 L 95 10/30/22 07:19 82 10/30/22 07:02 87 20 100 10/29/22 23:55 10/29/22 23:37 82 10/30/22 03:00 36.7 C 92 H 12 98/53 L 97 10/30/22 02:00 91 H 106/78 10/30/22 01:00 88 121/55 L 100 10/30/22 00:15 87 L 10/29/22 23:49 10/30/22 00:15 72 22 79/45 L 10/30/22 00:05 80 26 H 94 10/29/22 23:48 36.5 C 80 14 95/61 L 90 O2 Del Method O2 Flow Rate FiO2 10/30/22 10:50 Nasal Cannula 4 98 10/30/22 08:20 Room Air 10/30/22 07:19 10/30/22 07:02 Oxymask 6 10/29/22 23:55 Nasal Cannula 4 10/29/22 23:37 10/30/22 03:00 Oxymask 10/30/22 02:00 10/30/22 01:00 Nasal Cannula 5 10/30/22 00:15 Nasal Cannula 5 10/29/22 23:49 Nasal Cannula 5 10/30/22 00:15 10/30/22 00:05 Nasal Cannula 4 10/29/22 23:48 Nasal Cannula Laboratory Results Laboratory Results - last 24 hr 10/29/22 10/29/22 10/30/22 06:32 17:13 00:31 WBC RBC Hgb Hct MCV MCH MCHC RDW Std Deviation RDW Coeff of Minal Plt Count MPV Immature Gran % (Auto) Neut % (Auto) Lymph % (Auto) Ripley % (Auto) Eos % (Auto) Baso % (Auto) Neut # (Auto) Lymph # (Auto) [place] # (Auto) Eos # (Auto) Baso # (Auto) Immature Gran # (Auto) Toxic Vacuolation ABG pH 7.54 H* ABG pCO2 41 ABG pO2 55 L ABG HCO3 35 H ABG O2 Saturation 89.7 L ABG Base Excess 11.4 H Aniket Test Pos Oxygen Given 4 L Sodium Potassium Chloride Carbon Dioxide Anion Gap BUN Creatinine Est Cr Clr Drug Dosing Est GFR ( Amer) Est GFR (Non-Af Amer) BUN/Creatinine Ratio Glucose Calcium Magnesium 2.1 Nasal Screen MRSA (PCR) Negative 10/30/22 10/30/22 05:51 05:51 WBC 2.67 L RBC 2.82 L Hgb 8.9 L Hct 27.3 L MCV 96.8 MCH 31.6 MCHC 32.6 RDW Std Deviation 59.6 H RDW Coeff of Minal 16.7 H Plt Count 122 L MPV 10.3 Immature Gran % (Auto) 0.4 Neut % (Auto) 85.4 Lymph % (Auto) 5.6 Ripley % (Auto) 8.2 Eos % (Auto) 0.0 Baso % (Auto) 0.4 Neut # (Auto) 2.28 Lymph # (Auto) 0.15 L [place]ipley # (Auto) 0.22 Eos # (Auto) 0.00 Baso # (Auto) 0.01 Immature Gran # (Auto) 0.01 Toxic Vacuolation 1+ ABG pH ABG pCO2 ABG pO2 ABG HCO3 ABG O2 Saturation ABG Base Excess Aniket Test Oxygen Given Sodium 137 Potassium 4.3 Chloride 96 L Carbon Dioxide 33 H Anion Gap 8 BUN 22 Creatinine 0.73 Est Cr Clr Drug Dosing 49.3 Est GFR ( Amer) 95.4 Est GFR (Non-Af Amer) 82.3 BUN/Creatinine Ratio 30.1 H Glucose 98 Calcium 8.9 Magnesium Nasal Screen MRSA (PCR) (4) Anemia Anemia type: unspecified type Qualified Code(s): D64.9 - Anemia, unspecified
[2022-10-30] MEDS ORDERED: FUROSEMIDE 40 MG/4 ML VIAL IV ONE (11:40)
[2022-10-30] MEDS ORDERED: FUROSEMIDE INJ 20 MG/2 ML VIAL IV ONE (11:45)
[2022-10-30] MEDS ORDERED: DIGOXIN 0.125 MG TAB PO ONE (11:46)
--- NOTE | 2022-10-30 11:54 | Pulmonology Progress Note ---
Date of Service October 30, 2022 Assessment & Plan (1) Acute respiratory failure with hypoxia: (2) Pleural effusion: (3) Multilobar lung infiltrate: (4) Atrial flutter, paroxysmal: (5) Current smoker: (6) Pulmonary hypertension: Plan CT chest 10/29/2022 personally reviewed: Bilateral apical pleural scarring Dense consolidative process bilateral lower lobes Increased interlobular markings bilaterally Secretions in the RBI going into the right lower lobe Significant mediastinal lymphadenopathy right clavicular lymphadenopathy 1.8 cm x 2.2 cm, station 2P lymphadenopathy 1.7 cm x 2 cm Lymphadenopathy was also appreciated on CT chest which was done 09/25/2022 along with right lower lobe secretions 2D echo 09/26/2022: EF 55-60%, RV normal in size and function, moderate TR, PASP 47 mmHg, grade 1 diastolic dysfunction ABG 10/28/2022: 7.41/42/6 on 5 L -- Acute hypoxic respiratory failure with multilobar pneumonia Multifactorial Bilateral lower lobe pneumonia Bilateral pleural effusion Nasal MRSA negative -- Mediastinal with supraclavicular lymphadenopathy Likely secondary to underlying malignancy --Bilateral pleural effusion Right > left Continue with diuresis Interlobular thickening could be lymphatic spread versus CHF --Pulmonary hypertension Combination of type I and type II --Current smoker > [id number] smoking history I would recommend swallow evaluation as well given the secretions in the RBI and left lower lobe Plan: In/out: -3.6 L, urine output 4.9 L Strict in and out. Continue with diuretics to keep the patient negative balance I will decrease the dose of Lasix to 20 mg on a daily basis. Give 25% albumin prior to Lasix Biopsy of the right supraclavicular lymph node by IR on 10/31/2022. Case was discussed with Dr. Li, radiologist. Heparin will be hold as of afternoon today Random cortisol was only 9.5 on 10/29/2022. She has been started on prednisone, consideration for hydrocortisone can also be thought of in place of prednisone O2 supplementation to keep oxygen saturation between 90-92% Flutter valve, hypertonic saline and DuoNebs Recommend MRI of the brain if not already done Case was discussed with rental sales agent, hospital as well as RN at bedside Please note the above document was generated using voice recognition software. It may contain grammatical, syntax or spelling errors.Any formal questions or concerns about the content, text or information contained within the body of this dictation should be directly addressed to the provider for clarification. Admission and Anticipated Discharge Date Admission Date: October 24, 2022 Subjective Patient seen and examined at bedside. No acute distress, no adverse events overnight She was saturating 97-98% on room air She desaturates very easily on laying flat. She went into the low 80s when I did that. MAP 67 with systolic blood pressure in the mid 90s. She denied any dizziness, n o nausea vomiting Shortness of breath there on minimal exertion She is n.p.o. for swallow eval Denies any hemoptysis. Review of Systems Review of Systems: All systems reviewed & are unremarkable except as noted in Subjective Physical Exam Physical Exam: Constitutional: No acute distress HEENT: EOMI, PERRLA, frail-appearing Respiratory system: Decreased air entry bilaterally, no wheeze, rhonchi, positive crackles bilateral lower lobes CVS: S1-S2 positive, no murmurs or gallops Abdomen: Soft, nontender, nondistended, positive bowel sounds x4 Extremities: +2 pulses bilaterally radialis/ dorsalis pedis, no cyanosis +3 pitting edema bilateral lower extremity Neuro: Awake alert oriented x3 Psych: Normal mood and affect G/U: Positive [place] Skin: no rashes, warm and dry Lymphatic: no cervical or axillary lymphadenopathy Results & Data Results & Data Vital Signs (Past 12 Hours) Vital Signs Temp Pulse Pulse Pulse Resp BP BP 10/30/22 10:50 80 18 10/30/22 11:40 85 22 93/63 L 10/30/22 08:20 37.4 C 86 18 92/57 L 10/30/22 07:19 82 10/30/22 07:02 87 20 10/29/22 23:55 10/30/22 03:00 36.7 C 92 H 12 98/53 L 10/30/22 02:00 91 H 106/78 10/30/22 01:00 88 121/55 L 10/30/22 00:15 10/30/22 00:15 72 22 79/45 L 10/30/22 00:05 80 26 H Pulse Ox O2 Del Method O2 Flow Rate FiO2 10/30/22 10:50 Nasal Cannula 4 98 10/30/22 11:40 97 Nasal Cannula 4 10/30/22 08:20 95 Room Air 10/30/22 07:19 10/30/22 07:02 100 Oxymask 6 10/29/22 23:55 Nasal Cannula 4 10/30/22 03:00 97 Oxymask 10/30/22 02:00 10/30/22 01:00 100 Nasal Cannula 5 10/30/22 00:15 87 L Nasal Cannula 5 10/30/22 00:15 10/30/22 00:05 94 Nasal Cannula 4 Laboratory Results 10/30/22 05:51 10/30/22 05:51 PG Care Time/CCT Total # of Minutes Spent Total Time Spent with Patient: Total time spent is greater than 50% in coordination of care (as documented) at patient's floor/unit and/or counseling patient: Coding Level of Care Code 29882 SUB INP/OBS CARE 3/50MIN Diagnoses Acute respiratory failure with hypoxia J96.01 Pleural effusion J90 Multilobar lung infiltrate R91.8 Atrial flutter, paroxysmal I48.92 Current smoker F17.200 Pulmonary hypertension I27.20
[2022-10-30] MEDS ORDERED: GADOBUTROL 7.5ML VIAL IV ONE (16:11)
--- NOTE | 2022-10-30 16:36 | Magnetic Resonance Report ---
Brain MRI WITH AND WITHOUT CONTRAST HISTORY: Evaluate for metastatic disease. possible cancer, noted on CT chest unknown primary TECHNIQUE: Multiplanar multisequence MRI of the brain was performed both before and after the intrave nous administration of contrast. COMPARISON STUDY: Head CT 10/12/2022. Brain MRI 09/25/2022. FINDINGS: There is no mass, hematoma, midline shift, or acute infarct. The paranasal sinuses are demetra r. The right mastoid air cells are clear. The ventricles and sulci demonstrate mild age-related invol utional changes. Scattered foci of T2 hyperintensity seen within the periventricular and subcortical white matter are nonspecific but suggestive of mild microvascular ischemic changes. The major vascula r flow voids at the skull base are well-maintained. Trace left mastoid effusion. This remains unchang ed. No abnormal enhancement. IMPRESSION: 1. No significant change compared to the prior study. No acute intracranial abnormality. 2. No evidence for intracranial metastatic disease. ACT 112: Negative or not required by law. Electronically signed by: Morris Lal M.D. 10/30/2022 4:33 PM
[2022-10-30] MEDS: METOPROLOL SUCC 25MG EXT REL TAB PO SCH (20:04)
[2022-10-31] MEDS: PIPERACILLIN/TAZOBACTAM 4.5 GM in DEXTROSE 5% 100 ML IV SCH ×3 (02:05→17:16)
[2022-10-31] MEDS: LEVOTHYROXINE SODIUM 100 MCG TABLET PO SCH (06:07)
--- NOTE | 2022-10-31 07:12 | Hospitalist Progress Note ---
Date of Service October 31, 2022 Assessment & Plan (1) Generalized weakness: (2) Weight loss: (3) C. difficile diarrhea: (4) PSVT (paroxysmal supraventricular tachycardia): (5) Bradycardia: (6) Postsurgical hypothyroidism: (7) Leg edema: (8) Hydronephrosis, right: (9) COPD (chronic obstructive pulmonary disease): (10) Fracture of hip, left, closed: (11) Anemia: Plan This is a 72yo F with a PMH of history of B12 deficiency, C. difficile infection, COPD, hypothyroidism, pulmonary hypertension and other medical problems listed below who presents with generalized weakness and recurrent falls at home. Patient with recurrent admissions this summer (fourth since August, most recently admitted 10/12-10/21) for dizziness, generalized weakness, severe protein calorie malnutrition and weight loss of 25 lbs in 1 month as well as R hydronephrosis, ongoing diarrhea and BLE edema. Admitted once with recurrent falls at home. S/P L TFN on 10/27/22 with orthopedics. SOB/Hypotension/Pleural Effusions Chest XRAY - showed paratracheal fullness, pleural effusions, concern for aspiration pneumonia/pneumonitis, pulm edema. Chest CT noting concerning pathological R supraclavicular, mediastinal and R hilar lymphadenopathy concerning for a neoplastic process such as metastasis, central lung malignancy and lymphoma. Also noted concerns for aspiration pneumonia, pulmonary edema and pleural effusions. - IV Lasix 40mg, decreased to 20mg IV daily -Was started on IV decadron by director medical safety, currently on prednisone, cortisol level normal, ACTH pending. -MRI brain- no evidence of metastatic disease. -Continue zosyn for aspiration pneumonia. -cont Pulmonary toilet efforts -oxygen requirements have improved overnight. Atrial Flutter Pt flips in and out on tele One dose of digoxin overnight with manipulations with betablocker. Cardiology working to avoid amiodarone given side effects. Lopressor IV prn with 2.5mg IV given now. Lymphadenopathy Chest CT noting concerning pathological R supraclavicular, mediastinal and R hilar lymphadenopathy concerning for a neoplastic process such as metastasis, central lung malignancy and lymphoma. Appreciate pulmonology recs- "Biopsy of the right supraclavicular lymph node by IR on 10/31/2022." rescheduled for tomorrow. Intertrochanteric fracture of left hip Likely secondary to osteoporosis with recent fall s/p L hip short trochanteric femoral nail placement by Dr. Scott on 10/27/22 Cont PT/OT, pain appears controlled, heparin SQ for DVT prophylaxis Generalized weakness Frequent falls Ongoing for the past several months Fall precautions, PT/OT again, likely to benefit from rehab Has had diarrhea and getting dizzy with ambulation. No loss of consciousness and no significant injury Cont current treatment. Diarrhea Noted positive C. difficile gene on 09/30 with negative toxin. Outpatient study revealed apositive toxin. Completed PO vanco course per GI rec last admission H/o recent norovirus on stool studies but per ID, this is not an active infection KUB with nonobstructive bowel gas pattern. Mild to moderate colonic fecal retention Holding Linzess for now Diarrhea currently resolved but still with ongoing loose stools. After peripheral discussion with GI, we started once daily vancomycin while on current antibiotic therapy. Hydronephrosis, right Present since August 2022 Lasix emptying study done by urology as an outpatient which shows severe obstruction It is recommended by urologist that she could undergo cystoscopy with trial stent placement Scheduled to follow-up with urology next month Afebrile, renal function at baseline Severe protein calorie malnutrition Weight loss Adequate appetite - thought to possibly be related to malabsorption vs malignancy on previous admission, EGD biopsy unremarkable Cholestyramine was stopped by GI as it may be inhibiting absorption of her Synthroid medication and contributing to constipation and leg edema and directly Continue folate supplementation Nutrition advised use of multivitamin, ordered BLE edema Worsening peripheral edema and anasarca on CT abd/pelvis over last few weeks Echo 09/26/2022-EF 55 to 60%, right atrium moderately dilated, moderate tricuspid regurgitation, mild pulmonary hypertension continues on intravenous furosemide. SCDs, bilateral venous dopplers -no evidence of deep venous thrombosis Significant edema involving the legs-advised to elevate the legs while in bed and even when sitting down This has now resolved. Postsurgical hypothyroidism Free T4 0.85 within range Continue increased dose of levothyroxine 100mcg Also had incidental finding of neck adenopathy on carotid Doppler during previous admission, needs outpatient ultrasound-guided FNA We will continue with replacement therapy PSVT (paroxysmal supraventricular tachycardia) Also with history of bradycardia with HR 44 on admission. Hold beta jenn for now, monitor on telemetry Folate deficiency Folate mildly low 4.91, normal vitamin B12 on previous admission Cont replacement DVT Ppx: SQ heparin Code status: FULL PCP: Erasto Dispo: Cont hospitalization on telemetry. Likely to rehab once medically stable. I spent a total [id number] coordinating, documenting, and providing care for this patient excluding time spent in the performance of separately billed services. I specifically discussed her arrhythmia therapy with the counter person. Monica Escalante DO [facility] Admission and Anticipated Discharge Date Admission Date: October 24, 2022 Subjective 72 yo F with significant weight loss over the last 6 months and two successive hospitalizations for GI infections was admitted for frequent falls with subsequent hip fracture. Hospital stay is complicated by repeat episodes of rapid atrial flutter. scheduled for IR guided bx of enlarged supraclavicular node concerning for malignancy. This could not be performed today and was rescheduled for tomorrow Patient reports feeling somewhat down about how poorly she performed with physical therapy Denies any pain Ongoing soft semiformed stool Cough still present Physical Exam Physical Exam: CONSTITUTIONAL: appears cachectic, vitals as above, generally well-appearing, NAD EYES: normal conjunctivae, no scleral icterus, ENT: external ear and nose normal, MMM NECK: trachea midline RESPIRATORY: clear to auscultation bilaterally, no crackles, rales or wheezes, normal respiratory effort CARDIOVASCULAR: regular rate and rhythm, S1 and 2 heard without murmurs, gallop s or rubs, no JVD, no peripheral edema. CHEST: inspection of chest was normal GASTROINTESTINAL: soft, nontender, ND, no guarding MUSCULOSKELETAL: generalized weakness, head is normocephalic and atraumatic SKIN: warm and dry NEUROLOGIC: CN 2-12 grossly intact, no sensory deficit, normal cognition, normal speech, no tremor PSYCHIATRIC: alert cooperative and oriented to person, place and time. Euthymic mood, makes good eye contact, language grossly intact, recent and remote memory grossly intact. Results & Data Results & Data Vital Signs (Past 12 Hours) Vital Signs Temp Pulse Pulse Resp BP Pulse Ox O2 Del Method 10/31/22 03:00 36.7 C 91 H 16 105/66 94 Nasal Cannula 10/30/22 22:00 97 H 10/30/22 23:00 36.7 C 89 19 94/65 L 95 Nasal Cannula 10/30/22 20:00 Nasal Cannula 10/30/22 20:10 97/57 L Laboratory Results Short CBC 10/31/22 Range/Units 06:29 WBC 4.60 L (4.8-10.8) K/ul Hgb 8.7 L (12.0-16.0) g/dl Hct 27.0 L (37.0-47.0) % Plt Count 174 (130-400) K/uL BMP 10/31/22 06:29 Sodium 136 Potassium 4.4 Chloride 95 L Carbon Dioxide 35 H BUN 20 Creatinine 0.65 Glucose 92 Calcium 8.6 Diagnostic Findings Chest X-Ray 10/31/22 07:00 XR chest 1V portable CLINICAL HISTORY: f/u COMPARISON STUDY: Chest CT October 29, 2022. Chest radiograph October 30, 2022. FINDINGS: There is no pneumothorax. Geowk-tu-[id number] bilateral pleural effusions persist. Extensive bilateral lower lobe airspace opacities have mildly progressed. Mild pulmonary edema is unchanged. IMPRESSION: 1. Progression of extensive bilateral airspace opacities suggestive of pneumonia/aspiration pneumonitis. 2. No significant change in [id number] bilateral pleural effusions with mild interstitial pulmonary edema. ACT 112: Negative or not required by law. Electronically signed by: Lev Li M.D. 10/31/2022 10:59 AM Medications Administered Current Inpatient Medications Acetaminophen (Acetaminophen 325 Mg Tab) 650 mg PO Q4H PRN PRN Reason: Pain or Fever Stop: 11/23/22 20:27 Last Admin: 10/28/22 05:23 Dose: 650 mg Albuterol (Albut/Ipratrop 3mg/0.5mg Neb 3 Ml Vial) 3 ml NEB QIDR PRN; Protocol PRN Reason: shortness of breath or wheezing Stop: 11/23/22 20:27 Last Admin: 10/27/22 05:02 Dose: 3 ml Budesonide (Budesonide 0.25 Mg/2 Ml Vial (Pulmicort)) 0.25 mg NEB BIDR KVNG Stop: 11/28/22 18:59 Last Admin: 10/31/22 07:25 Dose: 0.25 mg Famotidine (Famotidine 40 Mg Tablet) 40 mg PO HS PRN PRN Reason: Heartburn Stop: 11/23/22 20:27 Formoterol Fumarate (Formoterol 20 Mcg/2 Ml Vial) 20 mcg NEB BIDR KVNG Stop: 11/28/22 18:59 Last Admin: 10/31/22 07:25 Dose: 20 mcg Furosemide (Furosemide Inj 20 Mg/2 Ml Vial) 20 mg IV DAILY [facility] Stop: 11/30/22 08:59 Last Admin: 10/31/22 08:30 Dose: 20 mg Heparin Sodium (Porcine) (Heparin Sod 5,000 Unit/0.5 Ml Vial) 5,000 units SQ Q8 [facility] Stop: 11/24/22 05:59 Last Admin: 10/30/22 16:05 Dose: Not Given Piperacillin Sod/Tazobactam (Sod 4.5 gm/ Dextrose) 120 mls @ 30 mls/hr IV Q8H [facility]; Protocol Stop: 11/05/22 21:59 Last Admin: 10/31/22 17:16 Dose: 30 mls/hr Ipratropium [place] (Ipratropium [place] Neb Soln 0.02% 2.5 Ml Vial) 0.5 mg INH QIDR [facility] Stop: 11/29/22 05:49 Last Admin: 10/31/22 15:43 Dose: 0.5 mg Levalbuterol HCl (Levalbuterol 1.25 Mg/3 Ml Neb) 1.25 mg NEB QIDR [facility] Stop: 11/29/22 05:49 Last Admin: 10/31/22 15:43 Dose: 1.25 mg Levothyroxine Sodium (Levothyroxine Sodium 100 Mcg Tablet) 100 mcg PO DAILYBB [facility] Stop: 11/24/22 06:29 Last Admin: 10/31/22 06:07 Dose: 100 mcg Metoprolol Succinate (Metoprolol Succ 25mg Ext Rel Tab) 12.5 mg PO QPM [facility] Stop: 11/28/22 20:59 Last Admin: 10/30/22 20:04 Dose: Not Given Ondansetron HCl (Ondansetron Inj 2 Mg/Ml 2 Ml Vial) 4 mg IV Q6H PRN PRN Reason: Nausea Stop: 11/23/22 20:27 Oxybutynin Chloride (Oxybutynin Chloride Xl 5 Mg Tabcr) 5 mg PO QAM [facility] Stop: 11/24/22 08:59 Last Admin: 10/31/22 08:30 Dose: 5 mg Pantoprazole Sodium (Pantoprazole 40 Mg Tab) 40 mg PO QAM [facility] Stop: 11/24/22 08:59 Last Admin: 10/31/22 08:30 Dose: 40 mg Prednisone (Prednisone 20 Mg Tab) 40 mg PO DAILY [facility] Stop: 11/03/22 08:59 Last Admin: 10/31/22 08:30 Dose: 40 mg Raspberry (Raspberry Syrup 5 Ml Udp) 5 ml PO DAILY [facility] Stop: 11/10/22 12:44 Last Admin: 10/31/22 14:14 Dose: 5 ml Sodium Chloride (Sodium Chlor 7% 4 Ml Neb) 4 ml NEB BIDR [facility] Stop: 11/28/22 18:59 Last Admin: 10/31/22 07:26 Dose: 4 ml Vancomycin HCl (Vancomycin Hcl 125 Mg/2.5ml Soln) 125 mg PO DAILY [facility] Stop: 11/30/22 12:44 Last Admin: 10/31/22 14:14 Dose: 125 mg Vitamin B Complex (Vitamin B Complex Tab) 1 tab PO QAM [facility] Stop: 11/28/22 16:29 Last Admin: 10/31/22 08:30 Dose: 1 tab (11) Anemia Anemia type: unspecified type Qualified Code(s): D64.9 - Anemia, unspecified
[2022-10-31] MEDS: FORMOTEROL 20 MCG/2 ML VIAL NEB SCH ×2 (07:25→19:19)
[2022-10-31] MEDS: BUDESONIDE 0.25 MG/2 ML VIAL (PULMICORT) NEB SCH ×2 (07:25→19:19)
[2022-10-31] MEDS: SODIUM CHLOR 7% 4 ML NEB NEB SCH ×2 (07:26→19:18)
[2022-10-31 08:15] LABS: BUN Creatinine Ratio 30.8 (10-20); Calcium 8.6 mg/dl (8.6-10.3); Creatinine Clr Calc Pharmacy 55.9 ml/min; Est GFR (African American) 102.8 ml/min; Est GFR (Non-African American) 88.7 ml/min; Potassium 4.4 mmol/L (3.5-5.1)
[2022-10-31 08:18] LABS: Basophils # (auto) 0.01 K/uL (0.00-0.20); Basophils % (auto) 0.2 %; Hemoglobin 8.7 g/dl (12.0-16.0); Immature Granulocytes # (auto) 0.01 K/uL (0.01-0.20); Immature Granulocytes % (auto) 0.2 %; Lymphocytes # (auto) 0.51 K/uL (1.20-3.40); Lymphocytes % (auto) 11.1 %; Mean Corpuscular Hgb Conc 32.2 g/dL (32.0-36.0); Mean Corpuscular Volume 99.3 fL (80.0-100.0); Mean Platelet Volume 10.7 fL (9.4-12.4); Monocytes # (auto) 0.32 K/uL (0.11-0.59); Neutrophils # (auto) 3.75 K/uL (1.40-6.50); Neutrophils % (auto) 81.5 %; Platelet Count 174 K/uL (130-400); Polychromasia 1+; RDW Coefficient of Variation 16.8 % (11.5-14.5); Red Blood Count 2.72 M/uL (4.20-5.40)
[2022-10-31] MEDS: IPRATROPIUM BROMIDE NEB SOLN 0.02% 2.5 ML VIAL INH SCH ×4 (08:24→19:19)
[2022-10-31] MEDS: LEVALBUTEROL 1.25 MG/3 ML NEB NEB SCH ×4 (08:24→19:19)
[2022-10-31] MEDS: VITAMIN B COMPLEX TAB PO SCH (08:30)
[2022-10-31] MEDS: predniSONE 20 MG TAB PO SCH (08:30)
[2022-10-31] MEDS: OXYBUTYNIN CHLORIDE XL 5 MG TABCR PO SCH (08:30)
[2022-10-31] MEDS: PANTOprazole 40 MG TAB PO SCH (08:30)
[2022-10-31] MEDS ORDERED: FUROSEMIDE INJ 20 MG/2 ML VIAL IV SCH (09:00)
--- NOTE | 2022-10-31 11:00 | XRay Report ---
XR chest 1V portable CLINICAL HISTORY: f/u COMPARISON STUDY: Chest CT October 29, 2022. Chest radiograph October 30, 2022. FINDINGS: There is no pneumothorax. [id number] bilateral pleural effusions persist. Extensive bilateral lower lobe airspace opacities have mildly progressed. Mild pulmonary edema is unchanged. IMPRESSION: 1. Progression of extensive bilateral airspace opacities suggestive of pneumonia/aspiration pneumonit is. 2. No significant change in [id number] bilateral pleural effusions with mild interstitial pulm onary edema. ACT 112: Negative or not required by law. Electronically signed by: Lev Li M.D. 10/31/2022 10:59 AM
--- NOTE | 2022-10-31 12:18 | Cardiology Progress Note ---
Date of Service October 31, 2022 Assessment & Plan (1) Atrial flutter, paroxysmal: (2) Extremity edema: (3) Protein malnutrition: (4) Anemia: (5) Diarrhea: (6) Generalized weakness: (7) Postsurgical hypothyroidism: Plan 72-year-old female with recurrent episodes of paroxysmal supraventricular tachycardia, likely atrial flutter with 2-1 conduction although not confirmed by ECG. Dysrhythmia occurring in the postoperative setting. Beta-jenn held since admission and restarted this AM. Volume depleted with borderline hypotension at rest. Recurrent dysrhythmia precipitated by beta-jenn withdrawal, intravascular volume depletion, and postoperative state. Agree with gentle IV hydration. Discontinue metoprolol succinate in favor of metoprolol tartrate 12.5 mg 3 times daily. Continue to monitor telemetry. ECG with recurrent episodes of tachycardia to confirm diagnosis. Patient is not a strong candidate for long-term anticoagulation due to anemia and fall risk.(Admitted with frequent falls and hip fracture) Edema related to severe protein malnutrition. Encourage p.o. intake. Would not add additional furosemide at this time with ongoing hypotension. Reassess electrolytes in a.m. and supplement as indicated. 10/29/2022 Patient examined for episodes of paroxysmal atrial fibrillation. Patient once again not receiving beta-jenn due to relative hypotension. No sustained arrhythmias We will retrial metoprolol succinate at 12.5 mg every afternoon, discontinue metoprolol tartrate 10/30/2022 Once again episode of atrial flutter last evening with slight decrease in blood pressure. Has not been receiving beta-jenn due to hypotension Appreciate pulmonary critical care intervention and plan Hypotension multifactorial received dose, single of Decadron on 10/29/2022 early a.m. with concerns regarding of hypoadrenalism Marked cachexia and hypoalbuminemia present Patient appeared to respond to IV digoxin last evening with atrial flutter We will give oral dose today Agree with use of amiodarone if persistent atrial flutter returns Electrolytes replaced 10/31/2022 Brief run of paroxysmal atrial tachycardia last evening. No further arrhythmias. Agree with current plans with diuresis due to volume overload. Blood pressure improved question due to corticosteroids, upright positioning We will continue low-dose digoxin Would ultimately like patient on low-dose beta-jenn once again once blood pressure and hemodynamics allow Admission and Anticipated Discharge Date Admission Date: October 24, 2022 Subjective Patient seen and examined, chart, medications, telemetry reviewed. Patient examined sitting partially upright with oxygenation better. Blood pressures have improved with diuresis, prednisone Brief run of atrial tachycardia last night nonsustained Electrolytes normal Review of Systems Review of Systems: All systems reviewed & are unremarkable except as noted in Subjective Physical Exam Constitutional: + ill appearing, + thin and + cachectic; no acute distress ENMT: external ear and nose normal, oropharynx normal Respiratory: no respiratory distress, no labored breathing and no retractions Auscultation: + rhonchi; no crackles, no rales and no wheezes Cardiovascular: Rate/Rhythm: regular rate and regular rhythm Heart Sounds: normal S1 and normal S2; no murmur Vessels: radial pulses present; no JVD and no carotid bruit Gastrointestinal (Abdomen): Inspection/Auscultation: normal bowel sounds; abdomen not distended Percussion/Palpation: abdomen soft; abdomen nontender, no guarding and abdomen not rigid Neurologic: CN's II-XI intact bilaterally and moves all extremities; no focal motor deficits Results & Data Vital Signs (Past 12 Hours) Vital Signs Temp Pulse Pulse Resp BP Pulse Ox O2 Del Method 10/31/22 11:29 65 14 100 Nasal Cannula 10/31/22 10:52 36.8 C 88 16 108/73 93 Nasal Cannula 10/31/22 09:44 Nasal Cannula 10/31/22 08:06 81 10/31/22 07:28 86 18 85 L Nasal Cannula 10/31/22 07:19 36.7 C 68 16 99/76 L 97 Room Air 10/31/22 03:00 36.7 C 91 H 16 105/66 94 Nasal Cannula O2 Flow Rate 10/31/22 11:29 3 10/31/22 10:52 3 10/31/22 09:44 3 10/31/22 08:06 10/31/22 07:28 3 10/31/22 07:19 10/31/22 03:00 Laboratory Results Laboratory Results - last 24 hr 10/31/22 10/31/22 06:29 06:29 WBC 4.60 L RBC 2.72 L Hgb 8.7 L Hct 27.0 L MCV 99.3 MCH 32.0 MCHC 32.2 RDW Std Deviation 61.0 H RDW Coeff of Minal 16.8 H Plt Count 174 MPV 10.7 Immature Gran % (Auto) 0.2 Neut % (Auto) 81.5 Lymph % (Auto) 11.1 [place] % (Auto) 7.0 Eos % (Auto) 0.0 Baso % (Auto) 0.2 Neut # (Auto) 3.75 Lymph # (Auto) 0.51 L [place] # (Auto) 0.32 Eos # (Auto) 0.00 Baso # (Auto) 0.01 Immature Gran # (Auto) 0.01 Polychromasia 1+ Sodium 136 Potassium 4.4 Chloride 95 L Carbon Dioxide 35 H Anion Gap 6 BUN 20 Creatinine 0.65 Est Cr Clr Drug Dosing 55.9 Est GFR ( Amer) 102.8 Est GFR (Non-Af Amer) 88.7 BUN/Creatinine Ratio 30.8 H Glucose 92 Calcium 8.6 (4) Anemia Anemia type: unspecified type Qualified Code(s): D64.9 - Anemia, unspecified
[2022-10-31] MEDS: RASPBERRY SYRUP 5 ML UDP PO SCH (14:14)
[2022-10-31] MEDS: VANCOMYCIN HCL 125 MG/2.5ML SOLN PO SCH (14:14)
--- NOTE | 2022-10-31 14:16 | Pulmonology Progress Note ---
Date of Service October 31, 2022 Assessment & Plan (1) Acute respiratory failure with hypoxia: (2) Pleural effusion: (3) Multilobar lung infiltrate: (4) Atrial flutter, paroxysmal: (5) Current smoker: (6) Pulmonary hypertension: Plan CT chest 10/29/2022 personally reviewed: Bilateral apical pleural scarring Dense consolidative process bilateral lower lobes Increased interlobular markings bilaterally Secretions in the RBI going into the right lower lobe Significant mediastinal lymphadenopathy right clavicular lymphadenopathy 1.8 cm x 2.2 cm, station 2P lymphadenopathy 1.7 cm x 2 cm Lymphadenopathy was also appreciated on CT chest which was done 09/25/2022 along with right lower lobe secretions 2D echo 09/26/2022: EF 55-60%, RV normal in size and function, moderate TR, PASP 47 mmHg, grade 1 diastolic dysfunction -- Acute hypoxic respiratory failure with multilobar pneumonia Multifactorial Bilateral lower lobe pneumonia Bilateral pleural effusion Nasal MRSA negative -- Mediastinal with supraclavicular lymphadenopathy Likely secondary to underlying malignancy --Bilateral pleural effusion Right > left Continue with diuresis Interlobular thickening could be lymphatic spread versus CHF --Pulmonary hypertension Combination of type I and type II --Current smoker > [id number] smoking history I would recommend swallow evaluation as well given the secretions in the RBI and left lower lobe Plan: Strict in and out. Continue with diuretics to keep the patient negative balance Biopsy of the right supraclavicular lymph node by IR tomorrow. Patient has improved and is off supplemental O2 at this time. O2 supplementation to keep oxygen saturation between 90-92% Flutter valve, hypertonic saline and DuoNebs MRI brain without findings of metastatic spread. Please note the above document was generated using voice recognition software. It may contain grammatical, syntax or spelling errors.Any formal questions or concerns about the content, text or information contained within the body of this dictation should be directly addressed to the provider for clarification. Admission and Anticipated Discharge Date Admission Date: October 24, 2022 Supervising Physician Co-Signing Physician Notes I saw and evaluated the patient with JACKELYN Jauregui, and I agree with his findings and plan as documented in the note. IR to biopsy lymph nodes. I have spent more than 50% of this encounter in counseling and/or coordination of care with patient. Subjective Patient was seen and evaluated at bedside. She reports feeling much better at this time. She is off of her oxygen. She is saturating well on room air. She is anxious to be discharged home. Review of Systems Review of Systems: A complete 10 point review of systems was reviewed with the patient with pertinent positives and negatives as per history of present illness. All else were negative. Physical Exam Physical Exam: VITAL SIGNS - Vital signs and nursing notes were reviewed. GENERAL - 72-year-old female appearing her stated age who is in no acute distress. Communicates well with provider and answers questions appropriately. LUNGS - Auscultation reveals diminished breath sounds without wheezes, rales, or rhonchi appreciated. CARDIAC - RRR with S1/S2. No murmur, rubs, or gallops appreciated. PSYCH - A&Ox3 and cooperates fully with examiner. Pt is very pleasant and interacts well with examiner. Results & Data Results & Data Vital Signs (Past 12 Hours) Vital Signs Temp Pulse Pulse Resp BP Pulse Ox O2 Del Method 10/31/22 11:29 65 14 100 Nasal Cannula 10/31/22 10:52 36.8 C 88 16 108/73 93 Nasal Cannula 10/31/22 09:44 Nasal Cannula 10/31/22 08:06 81 10/31/22 07:28 86 18 85 L Nasal Cannula 10/31/22 07:19 36.7 C 68 16 99/76 L 97 Room Air 10/31/22 03:00 36.7 C 91 H 16 105/66 94 Nasal Cannula O2 Flow Rate 10/31/22 11:29 3 10/31/22 10:52 3 10/31/22 09:44 3 10/31/22 08:06 10/31/22 07:28 3 10/31/22 07:19 10/31/22 03:00 PG Care Time/CCT Total # of Minutes Spent Total Time Spent with Patient: Total time spent is greater than 50% in coordination of care (as documented) at patient's floor/unit and/or counseling patient: Coding Level of Care Code 03962 SUB INP/OBS CARE 2/35MIN Diagnoses Acute respiratory failure with hypoxia J96.01 Pleural effusion J90 Multilobar lung infiltrate R91.8 Atrial flutter, paroxysmal I48.92 Current smoker F17.200 Pulmonary hypertension I27.20
[2022-10-31] MEDS ORDERED: METOPROLOL TARTRATE 1 MG/ML VIAL IV STA (17:22)
[2022-10-31] MEDS ORDERED: DIGOXIN 0.125 MG TAB PO ONE (18:22)
[2022-10-31] MEDS: METOPROLOL SUCC 25MG EXT REL TAB PO SCH (20:28)
[2022-11-01] MEDS: PIPERACILLIN/TAZOBACTAM 4.5 GM in DEXTROSE 5% 100 ML IV SCH ×3 (02:30→17:55)
[2022-11-01] MEDS: LEVOTHYROXINE SODIUM 100 MCG TABLET PO SCH (06:31)
[2022-11-01] MEDS: BUDESONIDE 0.25 MG/2 ML VIAL (PULMICORT) NEB SCH (07:03)
[2022-11-01] MEDS: SODIUM CHLOR 7% 4 ML NEB NEB SCH (07:03)
[2022-11-01] MEDS: FORMOTEROL 20 MCG/2 ML VIAL NEB SCH (07:03)
[2022-11-01] MEDS: VITAMIN B COMPLEX TAB PO SCH (08:02)
[2022-11-01] MEDS: predniSONE 20 MG TAB PO SCH (08:02)
[2022-11-01] MEDS: RASPBERRY SYRUP 5 ML UDP PO SCH (08:02)
[2022-11-01] MEDS: PANTOprazole 40 MG TAB PO SCH (08:02)
[2022-11-01] MEDS: OXYBUTYNIN CHLORIDE XL 5 MG TABCR PO SCH (08:02)
[2022-11-01] MEDS: VANCOMYCIN HCL 125 MG/2.5ML SOLN PO SCH (08:04)
--- NOTE | 2022-11-01 09:46 | Hospitalist Progress Note ---
Date of Service November 01, 2022 Assessment & Plan (1) Generalized weakness: (2) Weight loss: (3) C. difficile diarrhea: (4) PSVT (paroxysmal supraventricular tachycardia): (5) Bradycardia: (6) Postsurgical hypothyroidism: (7) Leg edema: (8) Hydronephrosis, right: (9) COPD (chronic obstructive pulmonary disease): (10) Fracture of hip, left, closed: (11) Anemia: Plan This is a 72yo F with a PMH of history of B12 deficiency, C. difficile infection, COPD, hypothyroidism, pulmonary hypertension and other medical problems listed below who presents with generalized weakness and recurrent falls at home. Patient with recurrent admissions this summer (fourth since August, most recently admitted 10/12-10/21) for dizziness, generalized weakness, severe protein calorie malnutrition and weight loss of 25 lbs in 1 month as well as R hydronephrosis, ongoing diarrhea and BLE edema. Admitted once with recurrent falls at home. S/P L TFN on 10/27/22 with orthopedics. SOB/Hypotension/Pleural Effusions Chest XRAY - showed paratracheal fullness, pleural effusions, concern for aspiration pneumonia/pneumonitis, pulm edema. Chest CT noting concerning pathological R supraclavicular, mediastinal and R hilar lymphadenopathy concerning for a neoplastic process such as metastasis, central lung malignancy and lymphoma. Also noted concerns for aspiration pneumonia, pulmonary edema and pleural effusions. - IV Lasix 40mg, decreased to 20mg IV daily -Was started on IV decadron by media planner, currently on prednisone, cortisol level normal, ACTH pending. -MRI brain- no evidence of metastatic disease. -Continue zosyn for aspiration pneumonia. -cont Pulmonary toilet efforts -oxygen requirements have improved overnight. Atrial Flutter Pt flips in and out on tele One dose of digoxin overnight with manipulations with betablocker. Cardiology working to avoid amiodarone given side effects. Lopressor IV prn with 2.5mg IV given now. Lymphadenopathy Chest CT noting concerning pathological R supraclavicular, mediastinal and R hilar lymphadenopathy concerning for a neoplastic process such as metastasis, central lung malignancy and lymphoma. Appreciate pulmonology recs- "Biopsy of the right supraclavicular lymph node by IR on 10/31/2022." rescheduled for tomorrow. Intertrochanteric fracture of left hip Likely secondary to osteoporosis with recent fall s/p L hip short trochanteric femoral nail placement by Dr. Scott on 10/27/22 Cont PT/OT, pain appears controlled, heparin SQ for DVT prophylaxis Generalized weakness Frequent falls Ongoing for the past several months Fall precautions, PT/OT again, likely to benefit from rehab Has had diarrhea and getting dizzy with ambulation. No loss of consciousness and no significant injury Cont current treatment. Diarrhea Noted positive C. difficile gene on 09/30 with negative toxin. Outpatient study revealed apositive toxin. Completed PO vanco course per GI rec last admission H/o recent norovirus on stool studies but per ID, this is not an active infection KUB with nonobstructive bowel gas pattern. Mild to moderate colonic fecal retention Holding Linzess for now Ongoing loose stools on Zosyn After peripheral discussion with GI, we started once daily vancomycin while on current antibiotic therapy. will plan to continue this for one week past stopping therapy for her pneumonia. Hydronephrosis, right Present since August 2022 Lasix emptying study done by urology as an outpatient which shows severe obstruction It is recommended by urologist that she could undergo cystoscopy with trial stent placement Scheduled to follow-up with urology next month Afebrile, renal function at baseline Severe protein calorie malnutrition Weight loss Adequate appetite - thought to possibly be related to malabsorption vs malignancy on previous admission, EGD biopsy unremarkable Cholestyramine was stopped by GI as it may be inhibiting absorption of her Synthroid medication and contributing to constipation and leg edema and directly Continue folate supplementation Nutrition advised use of multivitamin, ordered BLE edema Worsening peripheral edema and anasarca on CT abd/pelvis over last few weeks Echo 09/26/2022-EF 55 to 60%, right atrium moderately dilated, moderate tricuspid regurgitation, mild pulmonary hypertension continues on intravenous furosemide. SCDs, bilateral venous dopplers -no evidence of deep venous thrombosis Significant edema involving the legs-advised to elevate the legs while in bed and even when sitting down This has now resolved. Postsurgical hypothyroidism Free T4 0.85 within range Continue increased dose of levothyroxine 100mcg Also had incidental finding of neck adenopathy on carotid Doppler during previous admission, needs outpatient ultrasound-guided FNA We will continue with replacement therapy PSVT (paroxysmal supraventricular tachycardia) Also with history of bradycardia with HR 44 on admission. Hold beta jenn for now, monitor on telemetry Folate deficiency Folate mildly low 4.91, normal vitamin B12 on previous admission Cont replacement DVT Ppx: SQ heparin Code status: FULL PCP: Erasto Dispo: Patient is open to rehab but prefers not to go, anxious about the pathology result. Motivated to recover and get better. I spent a total [id number] coordinating, documenting, and providing care for this patient excluding time spent in the performance of separately billed services. I specifically discussed her arrhythmia therapy with the endodontic assistant. Monica Escalante DO [facility] Hospitalist Admission and Anticipated Discharge Date Admission Date: October 24, 2022 Subjective 72 yo F with significant weight loss over the last 6 months and two successive hospitalizations for GI infections was admitted for frequent falls with subsequent hip fracture. Hospital stay is complicated by repeat episodes of rapid atrial flutter. scheduled for IR guided bx of enlarged supraclavicular node concerning for malignancy. performed this afternoon +diarrhea x 5 episodes today, continues on Zosyn, intermittently npo for procedures. at bedside and assists with the history. Review of Systems Review of Systems: All systems reviewed and are unremarkable except as noted below Physical Exam Physical Exam: CONSTITUTIONAL: appears cachectic, vitals as above, generally well-appearing, NAD EYES: normal conjunctivae, no scleral icterus, ENT: external ear and nose normal, MMM NECK: trachea midline RESPIRATORY: clear to auscultation bilaterally, no crackles, rales or wheezes, normal respiratory effort CARDIOVASCULAR: regular rate and rhythm, S1 and 2 heard without murmurs, gallops or rubs, no JVD, no peripheral edema. CHEST: inspection of chest was normal GASTROINTESTINAL: soft, nontender, ND, no guarding MUSCULOSKELETAL: generalized weakness, head is normocephalic and atraumatic SKIN: warm and dry NEUROLOGIC: CN 2-12 grossly intact, no sensory deficit, normal cognition, normal speech, no tremor PSYCHIATRIC: alert cooperative and oriented to person, place and time. Euthymic mood, makes good eye contact, language grossly intact, recent and remote memory grossly intact. Results & Data Results & Data Vital Signs (Past 12 Hours) Vital Signs Temp Pulse Pulse Resp BP Pulse Ox O2 Del Method 11/01/22 07:25 36.8 C 82 18 120/80 97 Room Air 11/01/22 07:39 75 11/01/22 07:03 63 18 93 Nasal Cannula 11/01/22 03:00 36.5 C 75 16 121/74 90 Nasal Cannula 10/31/22 23:19 36.5 C 82 22 113/67 10/31/22 22:05 84 O2 Flow Rate 11/01/22 07:25 11/01/22 07:39 11/01/22 07:03 2 11/01/22 03:00 10/31/22 23:19 10/31/22 22:05 Medications Administered Current Inpatient Medications Acetaminophen (Acetaminophen 325 Mg Tab) 650 mg PO Q4H PRN PRN Reason: Pain or Fever Stop: 11/23/22 20:27 Last Admin: 10/28/22 05:23 Dose: 650 mg Albuterol (Albut/Ipratrop 3mg/0.5mg Neb 3 Ml Vial) 3 ml NEB QIDR PRN; Protocol PRN Reason: shortness of breath or wheezing Stop: 11/23/22 20:27 Last Admin: 10/27/22 05:02 Dose: 3 ml Budesonide (Budesonide 0.25 Mg/2 Ml Vial (Pulmicort)) 0.25 mg NEB BIDR KVNG Stop: 11/28/22 18:59 Last Admin: 11/01/22 07:03 Dose: 0.25 mg Famotidine (Famotidine 40 Mg Tablet) 40 mg PO HS PRN PRN Reason: Heartburn Stop: 11/23/22 20:27 Formoterol Fumarate (Formoterol 20 Mcg/2 Ml Vial) 20 mcg NEB BIDR KV[facility] Stop: 11/28/22 18:59 Last Admin: 11/01/22 07:03 Dose: 20 mcg Furosemide (Furosemide Inj 20 Mg/2 Ml Vial) 20 mg IV DAILY [facility] Stop: 11/30/22 08:59 Last Admin: 10/31/22 08:30 Dose: 20 mg Heparin Sodium (Porcine) (Heparin Sod 5,000 Unit/0.5 Ml Vial) 5,000 units SQ Q8 [facility] Stop: 11/24/22 05:59 Last Admin: 10/30/22 16:05 Dose: Not Given Piperacillin Sod/Tazobactam (Sod 4.5 gm/ Dextrose) 120 mls @ 30 mls/hr IV Q8H KVNG; Protocol Stop: 11/05/22 21:59 Last Admin: 11/01/22 09:34 Dose: 30 mls/hr Ipratropium Elmo (Ipratropium Elmo Neb Soln 0.02% 2.5 Ml Vial) 0.5 mg INH QIDR [facility] Stop: 11/29/22 05:49 Last Admin: 10/31/22 19:19 Dose: Not Given Levalbuterol HCl (Levalbuterol 1.25 Mg/3 Ml Neb) 1.25 mg NEB QIDR [facility] Stop: 11/29/22 05:49 Last Admin: 10/31/22 19:19 Dose: Not Given Levothyroxine Sodium (Levothyroxine Sodium 100 Mcg Tablet) 100 mcg PO DAILYBB [facility] Stop: 11/24/22 06:29 Last Admin: 11/01/22 06:31 Dose: 100 mcg Metoprolol Succinate (Metoprolol Succ 25mg Ext Rel Tab) 12.5 mg PO QPM [facility] Stop: 11/28/22 20:59 Last Admin: 10/31/22 20:28 Dose: Not Given Ondansetron HCl (Ondansetron Inj 2 Mg/Ml 2 Ml Vial) 4 mg IV Q6H PRN PRN Reason: Nausea Stop: 11/23/22 20:27 Oxybutynin Chloride (Oxybutynin Chloride Xl 5 Mg Tabcr) [facility] [place] Stop: 11/24/22 08:59 Last Admin: 11/01/22 08:02 Dose: 5 mg Pantoprazole Sodium (Pantoprazole 40 Mg Tab) 40 mg PO QAM [facility] Stop: 11/24/22 08:59 Last Admin: 11/01/22 08:02 Dose: 40 mg Prednisone (Prednisone 20 Mg Tab) 40 mg PO DAILY [facility] Stop: 11/03/22 08:59 Last Admin: 11/01/22 08:02 Dose: 40 mg Raspberry (Raspberry Syrup 5 Ml Udp) 5 ml PO DAILY [facility] Stop: 11/10/22 12:44 Last Admin: 11/01/22 08:02 Dose: 5 ml Vancomycin HCl (Vancomycin Hcl 125 Mg/2.5ml Soln) 125 mg PO DAILY [facility] Stop: 11/30/22 12:44 Last Admin: 11/01/22 08:04 Dose: 125 mg Vitamin B Complex (Vitamin B Complex Tab) 1 tab PO QAM [facility] Stop: 11/28/22 16:29 Last Admin: 11/01/22 08:02 Dose: 1 tab (11) Anemia Anemia type: unspecified type Qualified Code(s): D64.9 - Anemia, unspecified
--- NOTE | 2022-11-01 11:01 | Pulmonology Progress Note ---
Date of Service November 01, 2022 Assessment & Plan (1) Acute respiratory failure with hypoxia: (2) Pleural effusion: (3) Multilobar lung infiltrate: (4) Atrial flutter, paroxysmal: (5) Current smoker: (6) Pulmonary hypertension: Plan CT chest 10/29/2022 personally reviewed: Bilateral apical pleural scarring Dense consolidative process bilateral lower lobes Increased interlobular markings bilaterally Secretions in the RBI going into the right lower lobe Significant mediastinal lymphadenopathy right clavicular lymphadenopathy 1.8 cm x 2.2 cm, station 2P lymphadenopathy 1.7 cm x 2 cm Lymphadenopathy was also appreciated on CT chest which was done 09/25/2022 along with right lower lobe secretions 2D echo 09/26/2022: EF 55-60%, RV normal in size and function, moderate TR, PASP 47 mmHg, grade 1 diastolic dysfunction -- Acute hypoxic respiratory failure with multilobar pneumonia Multifactorial Bilateral lower lobe pneumonia Bilateral pleural effusion Nasal MRSA negative -- Mediastinal with supraclavicular lymphadenopathy Likely secondary to underlying malignancy --Bilateral pleural effusion Right > left Continue with diuresis Interlobular thickening could be lymphatic spread versus CHF --Pulmonary hypertension Combination of type I and type II --Current smoker > [id number] smoking history I would recommend swallow evaluation as well given the secretions in the RBI and left lower lobe Plan: Strict in and out. Continue with diuretics to keep the patient negative balance Biopsy of the right supraclavicular lymph node by IR scheduled for today. Patient remains off supplemental oxygen at this time. Coarse breath sound without bronchospasm noted on exam. Will remove the patient's hypertonic saline as she reports this is caused her irritation. Additionally, we will change her to an oral Ellipta as she is not profoundly bronchospastic on exam today and she will need a LABA/LAMA inhaler in the outpatient moving forward. Otherwise, the patient is no longer requiring supplemental oxygen. Her inhaled medications have been de-escalated. It is with hopes that her antibiotics can be de-escalated to p.o. moving forward. She is currently pending supraclavicular node biopsy. From a pulmonary standpoint, she is stabilized and can be discharged home on a LABA/LAMA maintenance inhaler with albuterol rescue inhaler. She is welcome to follow-up with pulmonary in the outpatient setting moving forward. O2 supplementation to keep oxygen saturation between 90-92% Flutter valve, hypertonic saline and DuoNebs MRI brain without findings of metastatic spread. Please note the above document was generated using voice recognition software. It may contain grammatical, syntax or spelling errors.Any formal questions or concerns about the content, text or information contained within the body of this dictation should be directly addressed to the provider for clarification. Admission and Anticipated Discharge Date Admission Date: October 24, 2022 Supervising Physician Co-Signing Physician Notes I saw and evaluated the patient with JACKELYN Jauregui, and I agree with his findings and plan as documented in the note. IR to biopsy lymph nodes. Currently on low dose oxygen, no new changes or problems. I have spent more than 50% of this encounter in counseling and/or coordination of care with patient. Subjective Patient was seen and evaluated by myself and attending at bedside. She is awake, alert, and oriented. She reports that she is breathing better at this time. She is anxious and hopeful to have the biopsy performed today. Review of Systems Review of Systems: A complete 10 point review of systems was reviewed with the patient with pertinent positives and negatives as per history of present illness. All else were negative. Physical Exam Physical Exam: VITAL SIGNS - Vital signs and nursing notes were reviewed. GENERAL - 72-year-old female appearing her stated age who is in no acute distress. Communicates well with provider and answers questions appropriately. LUNGS - Auscultation reveals diminished breath sounds without wheezes, rales, or rhonchi appreciated. CARDIAC - RRR with S1/S2. No murmur, rubs, or gallops appreciated. PSYCH - A&Ox3 and cooperates fully with examiner. Pt is very pleasant and intera cts well with examiner. Results & Data Results & Data Vital Signs (Past 12 Hours) Vital Signs Temp Pulse Pulse Resp BP Pulse Ox O2 Del Method 11/01/22 10:24 Room Air 11/01/22 07:25 36.8 C 82 18 120/80 97 Room Air 11/01/22 07:39 75 11/01/22 07:03 63 18 93 Nasal Cannula 11/01/22 03:00 36.5 C 75 16 121/74 90 Nasal Cannula 10/31/22 23:19 36.5 C 82 22 113/67 O2 Flow Rate 11/01/22 10:24 11/01/22 07:25 11/01/22 07:39 11/01/22 07:03 2 11/01/22 03:00 10/31/22 23:19 PG Care Time/CCT Total # of Minutes Spent Total Time Spent with Patient: Total time spent is greater than 50% in coordination of care (as documented) at patient's floor/unit and/or counseling patient: Coding Level of Care Code 71504 SUB INP/OBS CARE 2/35MIN Diagnoses Acute respiratory failure with hypoxia J96.01 Pleural effusion J90 Multilobar lung infiltrate R91.8 Atrial flutter, paroxysmal I48.92 Current smoker F17.200 Pulmonary hypertension I27.20
[2022-11-01] MEDS: LEVALBUTEROL 1.25 MG/3 ML NEB NEB SCH ×2 (11:46→13:43)
[2022-11-01] MEDS: IPRATROPIUM BROMIDE NEB SOLN 0.02% 2.5 ML VIAL INH SCH ×2 (11:46→13:43)
--- NOTE | 2022-11-01 13:31 | Cardiology Progress Note ---
Date of Service November 01, 2022 Assessment & Plan (1) Atrial flutter, paroxysmal: (2) Acute respiratory failure with hypoxia: Plan Paroxysmal atrial tachycardia/flutter intermittently present yesterday now quiet. Patient ordered for metoprolol succinate 12.5 mg every afternoon Should make efforts for patient to receive this medication today No further digoxin Admission and Anticipated Discharge Date Admission Date: October 24, 2022 Subjective Patient seen and examined, chart, medications, telemetry reviewed. Patient feeling improved today with diuresis. Sitting up in bed with better oxygenation Had episodes of paroxysmal atrial tachycardia/flutter yesterday evening. None today Review of Systems Review of Systems: All systems reviewed & are unremarkable except as noted in Subjective Physical Exam Constitutional: no acute distress Eyes: PERRL, conjunctivae normal, anicteric sclerae Neck: trachea midline, no thyromegaly Respiratory: Auscultation: + diminished lung sounds and + rhonchi Cardiovascular: Rate/Rhythm: regular rate and regular rhythm Extremities: + edema Results & Data Vital Signs (Past 12 Hours) Vital Signs Temp Pulse Pulse Resp BP Pulse Ox O2 Del Method 11/01/22 12:00 36.8 C 79 16 117/74 97 Room Air 11/01/22 10:24 Room Air 11/01/22 07:25 36.8 C 82 18 120/80 97 Room Air 11/01/22 07:39 75 11/01/22 07:03 63 18 93 Nasal Cannula 11/01/22 03:00 36.5 C 75 16 121/74 90 Nasal Cannula O2 Flow Rate 11/01/22 12:00 11/01/22 10:24 11/01/22 07:25 11/01/22 07:39 11/01/22 07:03 2 11/01/22 03:00 Laboratory Results Laboratory Results - last 24 hr 11/01/22 05:30 Digoxin 1.2
[2022-11-01 17:12] LABS: Vitamin D 1,25 34 pg/mL (18-72); Vitamin D3,1,25 34 pg/mL
[2022-11-01] MEDS: METOPROLOL SUCC 25MG EXT REL TAB PO SCH (21:42)
[2022-11-02] MEDS: PIPERACILLIN/TAZOBACTAM 4.5 GM in DEXTROSE 5% 100 ML IV SCH ×2 (01:52→09:15)
[2022-11-02] MEDS: LEVOTHYROXINE SODIUM 100 MCG TABLET PO SCH (05:45)
[2022-11-02] MEDS ORDERED: NITROGLYCERIN SL 0.4 MG/TAB TAB SL STA (06:34)
--- NOTE | 2022-11-02 06:35 | Communication Note ---
Date of Service: November 02, 2022
[2022-11-02] MEDS ORDERED: hydrOXYzine HCl 10 MG TAB PO PRN (06:47)
--- NOTE | 2022-11-02 08:18 | Ultrasound Report ---
Ultrasound-guided right supraclavicular lymph node FNA INDICATION: Right supraclavicular lymphadenopathy; lung mass PROCEDURE: Procedure and risks were explained. Informed consent was obtained. A final timeout was com pleted. The right chest and neck were prepped and draped in sterile fashion. 1% buffered lidocaine wa s utilized for skin anesthesia. Utilizing ultrasound guidance, 25-gauge needle was advanced into the 2 cm right supraclavicular lymph node. Ultrasound images were obtained. 2 passes were made and given to the pathologist. The needle w as removed and Band-Aid applied. The patient tolerated the procedure well. IMPRESSION: Right supraclavicular lymph node FNA as above. Performed, dictated, and signed by Norman Wilks PA-C; to be co-signed by Dr. Trent Woodruff. Electronically signed by: Trent Woodruff M.D. 11/02/2022 9:35 PM
[2022-11-02] MEDS ORDERED: UMECLIDINIUM/VILANTEROL 62.5/25MCG 7 PUFFS/INHALER INH SCH (09:00)
[2022-11-02] MEDS: OXYBUTYNIN CHLORIDE XL 5 MG TABCR PO SCH (09:12)
[2022-11-02] MEDS: VITAMIN B COMPLEX TAB PO SCH (09:12)
[2022-11-02] MEDS: predniSONE 20 MG TAB PO SCH (09:12)
[2022-11-02] MEDS: PANTOprazole 40 MG TAB PO SCH (09:12)
[2022-11-02] MEDS ORDERED: METOPROLOL SUCC 25MG EXT REL TAB PO SCH (09:15)
[2022-11-02] MEDS: RASPBERRY SYRUP 5 ML UDP PO SCH (09:23)
[2022-11-02] MEDS: VANCOMYCIN HCL 125 MG/2.5ML SOLN PO SCH (09:23)
[2022-11-02 09:59] LABS: Basophils # (auto) 0.01 K/uL (0.00-0.20); Basophils % (auto) 0.1 %; Eosinophils # (auto) 0.02 K/uL (0.00-0.50); Eosinophils % (auto) 0.3 %; Hematocrit (blood only) 30.1 % (37.0-47.0); Hemoglobin 9.5 g/dl (12.0-16.0); Immature Granulocytes # (auto) 0.08 K/uL (0.01-0.20); Immature Granulocytes % (auto) 1.2 %; Lymphocytes # (auto) 0.84 K/uL (1.20-3.40); Lymphocytes % (auto) 12.5 %; Mean Corpuscular Hemoglobin 31.7 pg (25.0-34.0); Mean Corpuscular Hgb Conc 31.6 g/dL (32.0-36.0); Mean Corpuscular Volume 100.3 fL (80.0-100.0); Mean Platelet Volume 9.9 fL (9.4-12.4); Monocytes # (auto) 0.64 K/uL (0.11-0.59); Monocytes % (auto) 9.5 %; Neutrophils # (auto) 5.13 K/uL (1.40-6.50); Neutrophils % (auto) 76.4 %; Platelet Count 243 K/uL (130-400); RDW Coefficient of Variation 15.6 % (11.5-14.5); RDW Standard Deviation 58.4 fL (36.4-46.3); White Blood Count 6.72 K/ul (4.8-10.8)
--- NOTE | 2022-11-02 10:03 | Cardiology Progress Note ---
Date of Service November 02, 2022 Assessment & Plan (1) Atrial flutter, paroxysmal: (2) Acute respiratory failure with hypoxia: Plan 72-year-old female complex medical history with paroxysmal atrial flutter/atrial tachycardia being driven by underlying medical issues. Patient appears to be slowly improving has manifested better blood pressures and fluid status with IV diuretics, corticosteroids. Still with transient atrial tachycardia and frequent ventricular ectopy We will resume patient's prehospital dosing of metoprolol succinate 12.5 mg daily first dose today. Note multiple doses of this medication have been held in the past discussed with nursing staff No other further recommendation Admission and Anticipated Discharge Date Admission Date: October 24, 2022 Subjective Patient seen and examined, sitting out of bed. Complains of diarrhea and loose stools multiple episodes overnight. No cardiac complaints. Blood pressure and heart rate look good other than frequent ventricular ectopy on telemetry Review of Systems Review of Systems: All systems reviewed & are unremarkable except as noted in Subjective Physical Exam Constitutional: + ill appearing, + thin and + cachectic; no acute distress Eyes: PERRL, conjunctivae normal, anicteric sclerae ENMT: external ear and nose normal, oropharynx normal Neck: trachea midline, no thyromegaly Respiratory: no respiratory distress, no labored breathing and no retractions Auscultation: + diminished lung sounds and + rhonchi; no crackles, no rales and no wheezes Cardiovascular: Rate/Rhythm: regular rate and regular rhythm Heart Sounds: normal S1 and normal S2; no murmur Vessels: radial pulses present; no JVD and no carotid bruit Extremities: + edema Gastrointestinal (Abdomen): Inspection/Auscultation: normal bowel sounds; abdomen not distended Percussion/Palpation: abdomen soft; abdomen nontender, no guarding and abdomen not rigid Neurologic: CN's II-XI intact bilaterally and moves all extremities; no focal motor deficits Results & Data Vital Signs (Past 12 Hours) Vital Signs Temp Pulse Pulse Pulse Pulse Resp BP 11/02/22 09:00 11/02/22 06:46 52 L 18 122/77 11/02/22 04:15 35.9 C L 72 20 126/77 11/01/22 22:15 72 11/01/22 22:54 11/01/22 22:46 36.8 C 63 65 18 122/79 Pulse Ox O2 Del Method O2 Flow Rate 11/02/22 09:00 Nasal Cannula 2 11/02/22 06:46 94 Nasal Cannula 2 11/02/22 04:15 90 Nasal Cannula 2.0 11/01/22 22:15 11/01/22 22:54 95 Nasal Cannula 2 11/01/22 22:46 90 Room Air Laboratory Results Laboratory Results - last 24 hr 10/28/22 11/02/22 11/02/22 04:11 09:26 09:26 WBC 6.72 RBC 3.00 L Hgb 9.5 L Hct 30.1 L MCV 100.3 H MCH 31.7 MCHC 31.6 L RDW Std Deviation 58.4 H RDW Coeff of Minal 15.6 H Plt Count 243 MPV 9.9 Immature Gran % (Auto) 1.2 Neut % (Auto) 76.4 Lymph % (Auto) 12.5 Maury % (Auto) 9.5 Eos % (Auto) 0.3 Baso % (Auto) 0.1 Neut # (Auto) 5.13 Lymph # (Auto) 0.84 L Maury # (Auto) 0.64 H Eos # (Auto) 0.02 Baso # (Auto) 0.01 Immature Gran # (Auto) 0.08 APTT Pending PTT Ratio Pending Sodium Potassium Chloride Carbon Dioxide Anion Gap BUN Creatinine Est Cr Clr Drug Dosing Est GFR ( Amer) Est GFR (Non-Af Amer) BUN/Creatinine Ratio Glucose Calcium Magnesium Troponin I High Sens Vit D 1,25-Dihyd Total 34 1,25 Dihydroxy Vit D2 <8 1,25 Dihydroxy Vit D3 34 11/02/22 09:26 WBC RBC Hgb Hct MCV MCH MCHC RDW Std Deviation RDW Coeff of Minal Plt Count MPV Immature Gran % (Auto) Neut % (Auto) Lymph % (Auto) Maury % (Auto) Eos % (Auto) Baso % (Auto) Neut # (Auto) Lymph # (Auto) Maury # (Auto) Eos # (Auto) Baso # (Auto) Immature Gran # (Auto) APTT PTT Ratio Sodium Pending Potassium Pending Chloride Pending Carbon Dioxide Pending Anion Gap Pending BUN Pending Creatinine Pending Est Cr Clr Drug Dosing Pending Est GFR ( Amer) Pending Est GFR (Non-Af Amer) Pending BUN/Creatinine Ratio Pending Glucose Pending Calcium Pending Magnesium Pending Troponin I High Sens Pending Vit D 1,25-Dihyd Total 1,25 Dihydroxy Vit D2 1,25 Dihydroxy Vit D3
[2022-11-02 10:22] LABS: Partial Thromboplastin Ratio 0.9; Partial Thromboplastin Time 26.1 Seconds (21.0-31.0)
[2022-11-02 10:26] LABS: BUN Creatinine Ratio 49.1 (10-20); Calcium 8.3 mg/dl (8.6-10.3); Creatinine Clr Calc Pharmacy 71.9 ml/min; Est GFR (African American) 109.9 ml/min; Est GFR (Non-African American) 94.9 ml/min; Magnesium 2.2 mg/dl (1.7-2.4); Potassium 3.2 mmol/L (3.5-5.1)
[2022-11-02 10:29] LABS: Troponin I High Sensitivity 8.6 pg/ml (0-14)
--- NOTE | 2022-11-02 10:30 | Hospitalist Progress Note ---
Date of Service November 02, 2022 Assessment & Plan (1) Generalized weakness: (2) Weight loss: (3) C. difficile diarrhea: (4) PSVT (paroxysmal supraventricular tachycardia): (5) Bradycardia: (6) Postsurgical hypothyroidism: (7) Leg edema: (8) Hydronephrosis, right: (9) COPD (chronic obstructive pulmonary disease): (10) Fracture of hip, left, closed: (11) Anemia: Plan This is a 72yo F with a PMH of history of B12 deficiency, C. difficile infection, COPD, hypothyroidism, pulmonary hypertension and other medical problems listed below who presents with generalized weakness and recurrent falls at home. Patient with recurrent admissions this summer (fourth since August, most recently admitted 10/12-10/21) for dizziness, generalized weakness, severe protein calorie malnutrition and weight loss of 25 lbs in 1 month as well as R hydronephrosis, ongoing diarrhea and BLE edema. Admitted once with recurrent falls at home. S/P L TFN on 10/27/22 with orthopedics. SOB/Hypotension/Pleural Effusions Chest XRAY - showed paratracheal fullness, pleural effusions, concern for aspiration pneumonia/pneumonitis, pulm edema. Chest CT noting concerning pathological R supraclavicular, mediastinal and R hilar lymphadenopathy concerning for a neoplastic process such as metastasis, central lung malignancy and lymphoma. Also noted concerns for aspiration pneumonia, pulmonary edema and pleural effusions. - IV Lasix 40mg, decreased to 20mg IV daily -Was started on IV decadron by destaticizer feeder, currently on prednisone, cortisol level normal, ACTH pending. -MRI brain- no evidence of metastatic disease. -Continue zosyn for aspiration pneumonia. -cont Pulmonary toilet efforts -oxygen requirements have improved overnight. Atrial Flutter Pt flips in and out on tele One dose of digoxin overnight with manipulations with betablocker. Cardiology working to avoid amiodarone given side effects. Lopressor IV prn with 2.5mg IV given now. Lymphadenopathy Chest CT noting concerning pathological R supraclavicular, mediastinal and R hilar lymphadenopathy concerning for a neoplastic process such as metastasis, central lung malignancy and lymphoma. Appreciate pulmonology recs- "Biopsy of the right supraclavicular lymph node by IR on 10/31/2022." rescheduled for tomorrow. Intertrochanteric fracture of left hip Likely secondary to osteoporosis with recent fall s/p L hip short trochanteric femoral nail placement by Dr. Scott on 10/27/22 Cont PT/OT, pain appears controlled, heparin SQ for DVT prophylaxis Generalized weakness Frequent falls Ongoing for the past several months Fall precautions, PT/OT again, likely to benefit from rehab Has had diarrhea and getting dizzy with ambulation. No loss of consciousness and no significant injury Cont current treatment. Diarrhea Noted positive C. difficile gene on 09/30 with negative toxin. Outpatient study revealed apositive toxin. Completed PO vanco course per GI rec last admission H/o recent norovirus on stool studies but per ID, this is not an active infection KUB with nonobstructive bowel gas pattern. Mild to moderate colonic fecal retention Holding Linzess for now Ongoing loose stools on Zosyn After peripheral discussion with GI, we started once daily vancomycin while on current antibiotic therapy. will plan to continue this for one week past stopping therapy for her pneumonia. Hydronephrosis, right Present since August 2022 Lasix emptying study done by urology as an outpatient which shows severe obstruction It is recommended by urologist that she could undergo cystoscopy with trial stent placement Scheduled to follow-up with urology next month Afebrile, renal function at baseline Severe protein calorie malnutrition Weight loss Adequate appetite - thought to possibly be related to malabsorption vs malignancy on previous admission, EGD biopsy unremarkable Cholestyramine was stopped by GI as it may be inhibiting absorption of her Synthroid medication and contributing to constipation and leg edema and directly Continue folate supplementation Nutrition advised use of multivitamin, ordered BLE edema Worsening peripheral edema and anasarca on CT abd/pelvis over last few weeks Echo 09/26/2022-EF 55 to 60%, right atrium moderately dilated, moderate tricuspid regurgitation, mild pulmonary hypertension continues on intravenous furosemide. SCDs, bilateral venous dopplers -no evidence of deep venous thrombosis Significant edema involving the legs-advised to elevate the legs while in bed and even when sitting down This has now resolved. Postsurgical hypothyroidism Free T4 0.85 within range Continue increased dose of levothyroxine 100mcg Also had incidental finding of neck adenopathy on carotid Doppler during previous admission, needs outpatient ultrasound-guided FNA We will continue with replacement therapy PSVT (paroxysmal supraventricular tachycardia) Also with history of bradycardia with HR 44 on admission. Hold beta jenn for now, monitor on telemetry Folate deficiency Folate mildly low 4.91, normal vitamin B12 on previous admission Cont replacement DVT Ppx: SQ heparin Code status: FULL PCP: Erasto Dispo: Patient is open to rehab but prefers not to go, anxious about the pathology result. Motivated to recover and get better. I spent a total [id number] coordinating, documenting, and providing care for this patient excluding time spent in the performance of separately billed services. I specifically discussed her arrhythmia therapy with the bellhop captain. Monica Escalante DO [facility] Admission and Anticipated Discharge Date Admission Date: October 24, 2022 Physical Exam Physical Exam: CONSTITUTIONAL: appears cachectic, vitals as above, generally well-appearing, NAD EYES: normal conjunctivae, no scleral icterus, ENT: external ear and nose normal, MMM NECK: trachea midline RESPIRATORY: clear to auscultation bilaterally, no crackles, rales or wheezes, normal respiratory effort CARDIOVASCULAR: regular rate and rhythm, S1 and 2 heard without murmurs, gallops or rubs, no JVD, no peripheral edema. CHEST: inspection of chest was normal GASTROINTESTINAL: soft, nontender, ND, no guarding MUSCULOSKELETAL: generalized weakness, head is normocephalic and atraumatic SKIN: warm and dry NEUROLOGIC: CN 2-12 grossly intact, no sensory deficit, normal cognition, normal speech, no tremor PSYCHIATRIC: alert cooperative and oriented to person, place and time. Euthymic mood, makes good eye contact, language grossly intact, recent and remote memory grossly intact. Results & Data Results & Data Vital Signs (Past 12 Hours) Vital Signs Temp Pulse Pulse Pulse Resp BP Pulse Ox 11/02/22 09:00 11/02/22 06:46 52 L 18 122/77 94 11/02/22 04:15 35.9 C L 72 20 126/77 90 11/01/22 22:54 95 11/01/22 22:46 36.8 C 63 65 18 122/79 90 O2 Del Method O2 Flow Rate 11/02/22 09:00 Nasal Cannula 2 11/02/22 06:46 Nasal Cannula 2 11/02/22 04:15 Nasal Cannula 2.0 11/01/22 22:54 Nasal Cannula 2 11/01/22 22:46 Room Air Laboratory Results Short CBC 11/02/22 Range/Units 09:26 WBC 6.72 (4.8-10.8) K/ul Hgb 9.5 L (12.0-16.0) g/dl Hct 30.1 L (37.0-47.0) % Plt Count 243 (130-400) K/uL BMP 11/02/22 09:26 Sodium 137 Potassium 3.2 L Chloride 97 L Carbon Dioxide 33 H BUN 26 H Creatinine 0.53 L Glucose 54 L Calcium 8.3 L Diagnostic Findings Aspiration 11/01/22 07:00 Ultrasound-guided right supraclavicular lymph node FNA INDICATION: Right supraclavicular lymphadenopathy; lung mass PROCEDURE: Procedure and risks were explained. Informed consent was obtained. A final timeout was completed. The right chest and neck were prepped and draped in sterile fashion. 1% buffered lidocaine was utilized for skin anesthesia. Utilizing ultrasound guidance, 25-gauge needle was advanced into the 2 cm right supraclavicular lymph node. Ultrasound images were obtained. 2 passes were made and given to the pathologist. The needle was removed and Band-Aid applied. The patient tolerated the procedure well. IMPRESSION: Right supraclavicular lymph node FNA as above. Performed, dictated, and signed by Norman Wilks PA-C; to be co-signed by Dr. Trent Woodruff. Medications Administered Current Inpatient Medications Acetaminophen (Acetaminophen 325 Mg Tab) 650 mg PO Q4H PRN PRN Reason: Pain or Fever Stop: 11/23/22 20:27 Last Admin: 10/28/22 05:23 Dose: 650 mg Albuterol (Albut/Ipratrop 3mg/0.5mg Neb 3 Ml Vial) 3 ml NEB QIDR PRN; Protocol PRN Reason: shortness of breath or wheezing Stop: 11/23/22 20:27 Last Admin: 10/27/22 05:02 Dose: 3 ml Famotidine (Famotidine 40 Mg Tablet) 40 mg PO HS PRN PRN Reason: Heartburn Stop: 11/23/22 20:27 Furosemide (Furosemide Inj 20 Mg/2 Ml Vial) 20 mg IV DAILY [facility] Stop: 11/30/22 08:59 Last Admin: 10/31/22 08:30 Dose: 20 mg Heparin Sodium (Porcine) (Heparin Sod 5,000 Unit/0.5 Ml Vial) 5,000 units SQ Q8 [facility] Stop: 11/24/22 05:59 Last Admin: 10/30/22 16:05 Dose: Not Given Hydroxyzine HCl (Hydroxyzine Hcl 10 Mg Tab) 10 mg PO QID PRN PRN Reason: Anxiety Stop: 12/02/22 06:46 Levofloxacin (Levofloxacin 750 Mg Tab) 750 mg PO Q2D@1100 [facility]; Protocol Stop: 11/09/22 10:59 Levothyroxine Sodium (Levothyroxine Sodium 100 Mcg Tablet) 100 mcg PO DAILYBB [facility] Stop: 11/24/22 06:29 Last Admin: 11/02/22 05:45 Dose: 100 mcg Metoprolol Succinate (Metoprolol Succ 25mg Ext Rel Tab) 12.5 mg PO QAM [facility] Stop: 12/02/22 09:14 Last Admin: 11/02/22 09:15 Dose: 12.5 mg Ondansetron HCl (Ondansetron Inj 2 Mg/Ml 2 Ml Vial) 4 mg IV Q6H PRN PRN Reason: Nausea Stop: 11/23/22 20:27 Oxybutynin Chloride (Oxybutynin Chloride Xl 5 Mg Tabcr) 5 mg PO QAM [facility] Stop: 11/24/22 08:59 Last Admin: 11/02/22 09:12 Dose: 5 mg Pantoprazole Sodium (Pantoprazole 40 Mg Tab) 40 mg PO QAM [facility] Stop: 11/24/22 08:59 Last Admin: 11/02/22 09:12 Dose: 40 mg Prednisone (Prednisone 20 Mg Tab) 40 mg PO DAILY [facility] Stop: 11/03/22 08:59 Last Admin: 11/02/22 09:12 Dose: 40 mg Raspberry (Raspberry Syrup 5 Ml Udp) 5 ml PO DAILY [facility] Stop: 11/10/22 12:44 Last Admin: 11/02/22 09:23 Dose: 5 ml Umeclidinium/Vilanterol (Umeclidinium/Vilanterol 62.5/25mcg 7 Puffs/Inhaler) 1 puffs INH DAILY [facility] Stop: 12/02/22 08:59 Last Admin: 11/02/22 09:13 Dose: 1 puffs Vancomycin HCl (Vancomycin Hcl 125 Mg/2.5ml Soln) 125 mg PO DAILY [facility] Stop: 11/30/22 12:44 Last Admin: 11/02/22 09:23 Dose: 125 mg Vitamin B Complex (Vitamin B Complex Tab) 1 tab PO QAM [facility] Stop: 11/28/22 16:29 Last Admin: 11/02/22 09:12 Dose: 1 tab (11) Anemia Anemia type: unspecified type Qualified Code(s): D64.9 - Anemia, unspecified
[2022-11-02] MEDS ORDERED: levoFLOXacin 750 MG TAB PO SCH (11:00)
[2022-11-02] MEDS ORDERED: POTASSIUM CHLORIDE PWD 20 MEQ PACK PO SCH (12:00)
[2022-11-02] MEDS ORDERED: LOPERAMIDE HCL 2 MG CAP PO PRN (12:10)
[2022-11-02] MEDS ORDERED: LOPERAMIDE HCL 2 MG CAP PO STA (12:10)
--- NOTE | 2022-11-02 12:45 | Pulmonology Progress Note ---
Date of Service November 02, 2022 Assessment & Plan (1) Acute respiratory failure with hypoxia: (2) Pleural effusion: (3) Multilobar lung infiltrate: (4) Atrial flutter, paroxysmal: (5) Current smoker: (6) Pulmonary hypertension: Plan CT chest 10/29/2022 personally reviewed: Bilateral apical pleural scarring Dense consolidative process bilateral lower lobes Increased interlobular markings bilaterally Secretions in the RBI going into the right lower lobe Significant mediastinal lymphadenopathy right clavicular lymphadenopathy 1.8 cm x 2.2 cm, station 2P lymphadenopathy 1.7 cm x 2 cm Lymphadenopathy was also appreciated on CT chest which was done 09/25/2022 along with right lower lobe secretions 2D echo 09/26/2022: EF 55-60%, RV normal in size and function, moderate TR, PASP 47 mmHg, grade 1 diastolic dysfunction -- Acute hypoxic respiratory failure with multilobar pneumonia - resolved Multifactorial Bilateral lower lobe pneumonia Bilateral pleural effusion Nasal MRSA negative -- Mediastinal with supraclavicular lymphadenopathy Likely secondary to underlying malignancy --Bilateral pleural effusion Right > left Continue with diuresis Interlobular thickening could be lymphatic spread versus CHF --Pulmonary hypertension Combination of type I and type II --Current smoker > [id number] smoking history I would recommend swallow evaluation as well given the secretions in the RBI and left lower lobe Plan: Strict in and out. Continue with diuretics to keep the patient negative balance Biopsy results pending. Patient remains off supplemental oxygen at this time. Coarse breath sound without bronchospasm noted on exam. Patient doing well on Anoro and PRN inhalers. Otherwise, the patient is no longer requiring supplemental oxygen. Her inhaled medications have been de-escalated. It is with hopes that her antibiotics can be de-escalated to p.o. moving forward. She is currently pending supraclavicular node biopsy. From a pulmonary standpoint, she is stabilized and can be discharged home on a LABA/LAMA maintenance inhaler with albuterol rescue inhaler. She is welcome to follow-up with pulmonary in the outpatient setting moving forward. Pulmonary medicine will sign off at this time. O2 supplementation to keep oxygen saturation between 90-92% Flutter valve, hypertonic saline and DuoNebs MRI brain without findings of metastatic spread. Please note the above document was generated using voice recognition software. It may contain grammatical, syntax or spelling errors.Any formal questions or concerns about the content, text or information contained within the body of this dictation should be directly addressed to the provider for clarification. Admission and Anticipated Discharge Date Admission Date: October 24, 2022 Supervising Physician Co-Signing Physician Notes I saw and evaluated the patient with Jun Jones PA-C, and agree with findings and plan as documented in the note. Supraclavicular Adenopathy-IR biopsy pending COPD-stable I have spent more than 50% of this encounter in counseling and/or coordination of care with patient. Subjective Patient seen and evaluated bedside today. She reports doing well from a pulmonary perspective. She is anxiously awaiting the results of her biopsy. She offers no complaints otherwise. Review of Systems Review of Systems: A complete 10 point review of systems was reviewed with the patient with pertinent positives and negatives as per history of present illness. All else were negative. Physical Exam Physical Exam: VITAL SIGNS - Vital signs and nursing notes were reviewed. GENERAL - 72-year-old female appearing her stated age who is in no acute distress. Communicates well with provider and answers questions appropriately. LUNGS - Auscultation reveals diminished breath sounds without wheezes, rales, or rhonchi appreciated. CARDIAC - RRR with S1/S2. No murmur, rubs, or gallops appreciated. PSYCH - A&Ox3 and cooperates fully with examiner. Pt is very pleasant and interacts well with examiner. Results & Data Results & Data Vital Signs (Past 12 Hours) Vital Signs Temp Pulse Pulse Pulse Resp BP Pulse Ox 11/02/22 11:47 36.5 C 60 19 128/73 93 11/02/22 09:00 11/02/22 06:46 52 L 18 122/77 94 11/02/22 04:15 35.9 C L 72 20 126/77 90 O2 Del Method O2 Flow Rate 11/02/22 11:47 Room Air 11/02/22 09:00 Nasal Cannula 2 11/02/22 06:46 Nasal Cannula 2 11/02/22 04:15 Nasal Cannula 2.0 PG Care Time/CCT Total # of Minutes Spent Total Time Spent with Patient: Total time spent is greater than 50% in coordination of care (as documented) at patient's floor/unit and/or counseling patient: Coding Level of Care Code 84832 SUB INP/OBS CARE 2/35MIN Diagnoses Acute respiratory failure with hypoxia J96.01 Pleural effusion J90 Multilobar lung infiltrate R91.8 Atrial flutter, paroxysmal I48.92 Current smoker F17.200 Pulmonary hypertension I27.20
--- NOTE | 2022-11-02 14:58 | Discharge Summary ---
Discharge Summary Date of Service November 02, 2022 Notes For Next Care Provider Please follow-up on new cancer diagnosis and refer to oncology. Status post TFN for left hip fracture, please assist with follow-up with orthopedics, Dr. Ernesto Scott Paroxysmal atrial flutter, no anticoagulation recommended, continues on metoprolol, smoking cessation strongly advised Repeat TFTs in 6 to 8 weeks Supportive care for diarrhea, consider Linzess therapy per GI for IBS issues Diarrhea ongoing but C. difficile repeat test is negative.-Continue once daily oral vancomycin for 7 days beyond course of antibiotics Please repeat chest imaging in the next 4 to 6 weeks to ensure complete res olution of pleural effusions and multifocal pneumonia secondary to Pseudomonas Medication Changes From Visit Vancomycin 125 mg p.o. daily Levaquin 750 mg p.o. daily Anoro Ellipta inhaled daily Furosemide 20 mg p.o. daily Potassium 10 mill equivalents p.o. daily Admission HPI Per Admitting Provider This is a 72yo F with a PMH of history of B12 deficiency, C. difficile infection, COPD, hypothyroidism, pulmonary hypertension and other medical problems listed below who presents with generalized weakness and recurrent falls at home. Patient with recurrent admissions this summer (fourth since August, most recently admitted 10/12-10/21) for dizziness, generalized weakness, severe protein calorie malnutrition and weight loss of 25 lbs in 1 month as well as R hydronephrosis, ongoing diarrhea and BLE edema. Per chart review: Workup for generalized weakness and lightheadedness: was appropriately treated for B12 deficiency, MRIs of C spine negative for gross cord compression, underwent brain MRI in September that was negative for acute stroke, negative chest CT for lung mass due to malignancy suspicion. For R hydronephrosis present since September, patient underwent a Lasix emptying study done by urology as an outpatient which shows severe obstruction a few months ago.Underwent CTA abdomen pelvis in July 2022 which was negative, did reveal malpositioned right kidney with pelvocaliectasis. Recommended by urologist that to undergo cystoscopy with trial stent placement. Scheduled to follow-up with urology next month. For ongoing diarrhea, found to have c diff positive for toxin on outpatient labs 10/12 but repeat c diff gene positive toxin negative in [place]. Completing treatment for possible c diff tomorrow. Underwent EGD earlier this month with unremarkable biopsy. Colonoscopy notable for poor prep. Evidence of constipation with overflow diarrhea on CT abd/pelvis. Per GI, discontinue cholestyramine and started on Linzess. Previously positive for norovirus on stool culture but no treatment indicated per ID- felt that this is no longer an active infection but still clearing virus in stool. Hopeful improvement of diarrhea once thyroid corrected (TSH elevated, levothyroxine increased to 100mcg on previous admission). 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 For monthlong worsening of lower extremity edema and anasarca on CT, likely related to malabsorption. Hypothyroidism also possibly contributing. Echo from September with preserved EF, R atrium moderately dilated, moderate tricuspid regurgitation, mild pulm HTN. No diuretics continued due to ongoing diarrhea. Since discharge home 3 days ago, patient continues to be profoundly weak with multiple falls. Denies head trauma. Continuing to feel dizzy with lightheadedness. Good appetite and PO intake but profuse diarrhea, ongoing fecal incontinence since. No fever, chills, headache, nausea, vomiting, CP or SOB. Abdominal swelling continues and seems worse, per patient. Always feels bloated. Feels weak and unable to safely remain at home. Continues to smoke 1/4 pack or less a day. Principal Dx & Hospital Course #1 = Principal Diagnosis (1) Carcinoma: (2) Generalized weakness: (3) Weight loss: (4) C. difficile diarrhea: (5) PSVT (paroxysmal supraventricular tachycardia): (6) Bradycardia: (7) Postsurgical hypothyroidism: (8) Leg edema: (9) Hydronephrosis, right: (10) COPD (chronic obstructive pulmonary disease): (11) Fracture of hip, left, closed: (12) Anemia: Plan 72-year-old female recently admitted multiple times for various issues including C. difficile colitis and generalized weakness and malnutrition. She came back again on 10/24 after being discharged on 10/21 reporting worsening generalized weakness and recurrent falls at home. She had been seen by physical and Occupational Therapy and felt to return home during the prior admission but felt weaker again with ongoing persistent diarrhea and worsening lower extremity edema. Diarrhea was tested and was noninfectious. She completed her oral vancomycin course. She notably had a recent history of norovirus and when this recurred and stool studies during the last admission this was considered by infectious disease to be an inactive infection with the positive study evidence of remnants of the virus. She was trialed on Linzess for IBS but this is put on hold with ongoing diarrhea. She also has known right hydronephrosis since August 2022 and LE 6 emptying study done by urology as an outpatient showed severe obstruction. Outpatient cystoscopy with trial stent placement was recommended but she has not yet been an outpatient long enough to undergo this. No urinary symptoms at this time. For her weight loss she underwent an EGD with biopsy that was unremarkable during the last admission. Cholestyramine powder was stopped by GI as this was thought to be inhibiting her absorption of Synthroid contributing to a hypothyroid state and therefore giving her constipation and leg edema. Echocardiogram on 09/26/22 revealed an EF of 55 to 60% with right atrium moderately dilated, moderate tricuspid regurgitation and, mild pulmonary hypertension. She was intermittently given intravenous Lasix during this admission which was intermittently held with ongoing diarrhea and concern for dehydration. Gastroenterology was consulted and did not have any new suggestions. She unfortunately fell prior to admission and developed a left hip fracture which was noted on imaging after reports of pain and ambulatory dysfunction. She underwent a TFN by Ernesto Scott who was on 10/27/2022 without initial complications. She developed transient tachycardia overnight on 10/28, and cardiology was consulted. She was found to have recurrent episodes of paroxysmal supraventricular tachycardia, likely atrial flutter with 2 1 conduction. Dysrhythmia was occurring in the postoperative setting and multifocal pneumonia 2/2 pseudomonas. This was controlled with continued beta- jenn therapy and digoxin. No anticoagulation was recommended given ongoing issue with falls and anemia. Pulmonary consultation was requested with worsening hypoxia secondary to multifocal pneumonia. She notably is a current smoker and smoking cessation was strongly recommended. Lymphadenopathy was appreciated on CT chest which was new and she also had a bilateral pleural effusion. She was continued on intravenous diuretic therapy for pleural effusions and broad-spectrum antibiotics for pneumonia. She was noted to have pulmonary hypertension which was a combination of type I and type II. 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 No clear primary origin is present, these results were disclosed to her prior to discharge and she was sent to [facility] in stable condition with close primary care follow-up recommended. She verbalized understanding of the results. Close oncology follow-up is recommended for consideration of treatment for ongoing malignancy which is likely the cause of her significant weight loss and protein malnutrition. Discharge Exam CONSTITUTIONAL: appears cachectic, vitals as above, generally well-appearing, NAD EYES: normal conjunctivae, no scleral icterus, ENT: external ear and nose normal, MMM NECK: trachea midline RESPIRATORY: clear to auscultation bilaterally, no crackles, rales or wheezes, normal respiratory effort CARDIOVASCULAR: regular rate and rhythm, S1 and 2 heard without murmurs, gallops or rubs, no JVD, no peripheral edema. CHEST: inspection of chest was normal GASTROINTESTINAL: soft, nontender, ND, no guarding MUSCULOSKELETAL: generalized weakness, head is normocephalic and atraumatic SKIN: warm and dry NEUROLOGIC: CN 2-12 grossly intact, no sensory deficit, normal cognition, normal speech, no tremor PSYCHIATRIC: alert cooperative and oriented to person, place and time. Euthymic mood, makes good eye contact, language grossly intact, recent and remote memory grossly intact. Updated Medication List Medication Instructions Recorded Confirmed Type metoprolol succinate 25 mg 12.5 mg PO DAILY #15 tabs 08/22/22 10/24/22 Rx tablet,extended release 24 hr oxybutynin chloride 5 mg 5 mg PO QAM 09/25/22 10/24/22 History tablet,extended release 24 hr ipratropium 0.5 mg-albuterol 3 mg 3 ml NEB QIDR PRN shortness of 10/01/22 10/24/22 Rx (2.5 mg base)/3 mL nebulization breath or wheezing 30 days #90 mL soln pantoprazole 40 mg tablet,delayed 40 mg PO QAM 30 days #30 tabs 10/01/22 10/24/22 Rx release famotidine 40 mg tablet 40 mg PO HS PRN Heartburn 10/12/22 10/24/22 History levothyroxine 100 mcg tablet 100 mcg PO DAILY #30 tabs 10/20/22 10/24/22 Rx (Synthroid) loperamide 2 mg capsule 2 mg PO UD PRN diarrhea #30 caps 10/20/22 10/24/22 Rx furosemide 20 mg tablet 20 mg PO DAILY #30 tabs 11/02/22 Rx levofloxacin 750 mg tablet 750 mg PO DAILY@1100 #7 tabs 11/02/22 Rx potassium chloride 10 mEq 10 meq PO DAILY #30 caps 11/02/22 Rx capsule,extended release umeclidinium 62.5 mcg-vilanterol 1 ea inhalation DAILY #60 ea 11/02/22 Rx 25 mcg/actuation powdr for inhalation (Anoro Ellipta) vancomycin 125 mg capsule 125 mg PO DAILY #14 caps 11/02/22 10/24/22 Rx Hospital Stay Data Consultations 10/24/22 15:13 ED Decision to Admit Stat 10/24/22 16:23 Consult Gastroenterology Routine 10/26/22 12:18 Consult Orthopedic Surgery Routine 10/28/22 10:49 Consult Cardiology Routine 10/29/22 15:34 Consult Pulmonology Routine Procedures Performed Operation Date: 10/27/22 11:10 Actual Procedures p Left Hip Short Trochanteric Femoral Nail(Left) - Ernesto Scott M.D. Diagnostic Imagining Performed 10/24/22 16:24 US venous doppler LE BI Routine 10/27/22 16:30 FL hip LT 2-3V Routine 10/29/22 11:41 CT chest diagnostic w con Urgent 10/30/22 12:09 MRI Brain [MR brain wo/w con] Urgent 11/01/22 07:00 IR FNA lymph node US Routine Pending Results Patient Have Any Pending Studies at Discharge: No Discharge Instructions Given to Patient (Per Discharging Provider) Things to Watch Out For -Go to the Emergency Room if you have sudden onset of chest pain, shortness of breath, or uncontrollable pain. -Call the orthopedics clinic immediately if you have a sudden increase in the amount of wound drainage or the drainage becomes thick, yellow or green, or foul-smelling. -For routine questions regarding your hip surgery, call the orthopedics clinic at [phone] during regular business hours (8am-5pm). For urgent issues after regular business hours, you may call the clinic to be connected to the on-call physician. Dressings -Keep your dressings clean, dry, and in place for 4 days after surgery. After 4 days postoperatively, you may remove the dressing and cover the incisions with new clean dressings. Be sure to wash your hands thoroughly before touching your incisions. Apply a new dressing daily thereafter. -You may begin showering after your first dressing change (4 days after surgery). You may let the water run BRIEFLY over the incisions, but do not soak the incisions in the bathtub or pool for 2 weeks. You may also gently clean the incisions with mild soap and water; pat the incision dry after cleaning-do not rub the incisions. -You may use an antibiotic ointment (Bacitracin, Polysporin) if desired, but this is not necessary. Weight Bearing -You may weight bear as tolerated on your operative leg. Use a walker for support and balance. Followup -You will need to follow-up with Dr. Scott in orthopedic surgery clinic 10- 14 days after surgery. Please call [facility] at [phone] to make an appointment. PLEASE SEE ADDITIONAL MEDICINE DISCHARGE INSTRUCTIONS ON DISCHARGE PAPERWORK. Total Time Total Time Spent Total Time Spent (In Minutes): 60
--- NOTE | 2022-11-06 08:10 | Electrocardiogram Report ---
Test Reason : Blood Pressure : / mmHG Vent. Rate : 060 BPM Atrial Rate : 060 BPM P-R Int : 192 ms QRS Dur : 088 ms QT Int : 422 ms P-R-T Axes : 087 067 070 degrees QTc Int : 422 ms Sinus rhythm with occasional Premature ventricular complexes Low voltage QRS Borderline ECG When compared with ECG of 28-OCT-2022 13:23, Premature ventricular complexes are now Present Vent. rate has decreased BY 74 BPM QRS axis Shifted right Criteria for Inferior infarct are no longer Present ST no longer depressed in Anterolateral leads T wave inversion no longer evident in Anterolateral leads Confirmed by Guillermo Jackson ([id number]) on 11/06/2022 8:09:56 AM Referred By: REFERRED SELF Confirmed By:Guillermo Jackson
== END 2022-11-02 18:02 | DRG 823 ==
LOC: ED 10:13 → SUATTDRO 15:25 → EDINP 15:25 → 2N 20:28 → 2E 10-29 23:38

== ENCOUNTER 2023-02-27 12:43 | Inpatient (IN) ==
--- OUTSIDE RECORDS SUMMARY | 2023-02-27 12:52 | External Medical Summary | Summary of Care ---
Author Name Unknown Organization [facility] Address [address] [place] [address] Phone [phone] Care Team Providers Care It Sales Executive Name Role Phone Hayes Maurer DO Primary Care Provider Reason for Visit * Reason Onset Date Comments Order Request 02/22/2023 Encounter Details Date Type Department Care Team (Late st Contact Info) Description 02/22/2023 Telephone Family Practice [facility] [address] [place] [id number] Hayes Maurer DO [address] [place] [address] Order Request Allergies Active Allergy Reactions Criticality Noted Date Comments Morphine 03/26/1997 Shock, dyspnea Other reaction(s): shock, dspnea Neomycin 04/07/2013 documented as of this encounter (statuses as of 02/22/2023) Medications Medication Sig Dispensed Refills Start Date End Date Status Oxybutynin Chloride ER 5 MG Oral Tablet Extended Release 24 Hour (Ditropan XL) Take 1 Tablet by mouth in the morning. 30 Tablet 6 09/07/2022 Active Metoprolol Succinate ER 25 MG Oral Tablet Extended Release 24 Hour (toPROL XL)Indications:SVT (supraventricular tachycardia) Take 0.5 Tablets by mouth in the morning. 45 Tablet 3 10/06/2022 Active Acetaminophen 500 MG Oral Packet Take by mouth. 0 Active Anoro Ellipta 62.5-25 MCG/ACT Inhalation Aerosol Powder Breath Activated (umeclidinium-vilant saadia) Inhale 1 Puff by mouth. 0 Active Levothyroxine Sodium 100 MCG Oral Tablet (Levoxyl) Take 1 Tablet by mouth in the morning. (at least 30 min prior to breakfast or other meds). 90 Tablet 3 11/17/2022 Active Potassium Chloride ER 10 MEQ Oral Tablet Extended Release Take 1 Tablet by mouth in the morning. 30 Tablet 3 12/16/2022 Active Furosemide 20 MG Oral Tablet (Lasix) Take 1 Tablet by mouth in the morning and 1 Tablet before bedtime. 30 Tablet 5 01/05/2023 Active Ondansetron HCl 8 MG Oral Tablet (Zofran)Indications: Small cell lung cancer (HCC) Take 1 Tablet by mouth every 8 hours as needed for Nausea. 30 Tablet 3 01/06/2023 Active Prochlorperazine Maleate 10 MG Oral Tablet (Compazine)Indicatio ns:Small cell lung cancer (HCC) Take 1 Tablet by mouth every 6 hours as needed for Nausea. 30 Tablet 3 01/06/2023 Active Loratadine 10 MG Oral Tablet (Claritin)Indication s:Small cell lung cancer (HCC) Take 1 tablet daily for 5 days starting the day before udenyca injection (start the last day of chemo) 20 Tablet 0 01/06/2023 Active documented as of this encounter (statuses as of 02/22/2023) Active Problems Problem Noted Date Diagnosed Date Small cell lung cancer 12/30/2022 Encounter for antineoplastic chemotherapy 2022 Medical home patient encounter 10/07/2022 COPD, group B, by GOLD 2017 classification 08/15 Overview: Per COPD GOLD Classification History of colon polyps 09/04/2018 Positive colorectal cancer screening using Colog uard test 11/07/2017 High risk for fracture due to osteoporosis by DE XA scan 11/01/2016 Pulmonary hypertension 01/17/2007 ADVANCE DIRECTIVE INFORMATION 01/05/2006 Overview: Information offered-patient declined. LUMB-LUMBOSAC DISC DEGEN 06/20/2002 Acquired hypothyroidism 07/24/1997 documented as of this encounter (statuses as of 02/22/2023) Resolved Problems Problem Noted Date Diagnosed Date Resolved Date COPD, moderate 07/06/2017 08/18/2022 Overview: Per COPD GOLD Classification Vitamin B 12 deficiency 10/26/201111/05 Vitamin D deficiency 10/25/2011 018 Dermatitis 04/23/2011 11/30/2017 Benign neoplasm of colon 05/22/200704/2018 Overview: 5 2-3 mm polyps- hyperplastic polyps--repeat 3 years Gastritis and gastroduodenitis 04/24/2007 11/30/2017 Overview: mild chronic gastritic inflammation Shortness of breath 2007 03/14/19 09 Chest pain 2007 03/14/2008 Pulmonary hypertension 12/08/200601/09 FAM HX-DIABETES MELLITUS 04/13/200011/2008 Perimenopause 07/24/1997 03/14/2008 documented as of this encounter (statuses as of 02/22/2023) Immunizations Name Administration Dates Next Due COVID-19 mRNA, LNP-s, No Pre serve, 2-Dose Series (Pfizer) 03/04/2021,07/22/2020,07/01/2020 Hepatitis B Vaccine 03/26/1997 Pneumococcal Conjugate Vacc, 13 Valent (Prevnar) 06/14/2016 Pneumococcal Polysaccharide PPV23 (Pneumovax) 08/10/2017 TDAP (age 11 and older)(Adacel) 04/02/2011 documented as of this encounter Social History Tobacco Use Types Packs/Day Years Used Date Smoking Tobacco: Former Cigarettes 0.6 37 Smokeless Tobacco: Never Comments:Pt quit smoking in November 2022. Former: 1/2 per day-started age 35. Alcohol Use Standard Drinks/Week Comments No 0 (1 standard drink = 0.6 oz pur e alcohol) PHQ-2 Answer Date Recorded PHQ Adult Total Score 19 02/08/2023 Hunger Vital Sign Answer Date Recorded Within the past 12 months, y ou worried that your food would run out before you got the money to buy more. Never true 01/25/20 23 Within the past 12 months, t he food you bought just didn't last and you didn't have money to get more. Never true 01/24/2023 Sex and Gender Information Value Date Recorded Sex Assigned at Not on file Gender Identity Not on file Sexual Orientation Not on file Job Start Date Occupation Industry Not on file Not on file Not on file documented as of this encounter Miscellaneous Notes * Telephone Encounter - Zena Harper OSA - 02/22/2023 2:37 PM EST Kaci called from [facility]. Please fax over the Demographics page [phone] * Telephone Encounter - India Wilks RN - 02/22/2023 12:19 PM EST Printed and faxed order with last OV note to [facility] # [phone] * Telephone Encounter - Mirella Ulloa OSA - 02/22/2023 8:10 AM EST An order was requested for this patient. Name of Requesting Provider: Patient Order Requested: a 4-wheel walker with a seat Diagnosis/Reason for Request: Unable to walk due to her feet If order request is for Mammogram: Is the patient having any breast symptoms? N/A Is there a chance of ? N/A Has the patient had any breast problems in the past? NA What location AND department does the patient wish to have their order completed at? [facility] or wherever it's usually sent Fax Number, if applicable: Unknown Call Back Number: [phone]. Please let her know if insurance will cover it. She can't afford itotherwise. If the caller is not a current patient, please advise the patient to call their current PCP to havethe order's prior to being seen in our office. The patient was informed that our providers would not order anything (medication, labs, etc.) prior to being seen. documented in this encounter Plan of Treatment Upcoming Encounters Date Type Department Care Team (Late st Contact Info) Description 02/23/2023 2:30 PM EST Hem/Onc Treatment Hematology/Oncology Treatment, [address] [address] Helene, Chair [address] Hem Onc Scen[address] [place] [address] 03/07/2023 1:30 PM EST Office Visit Urology, [facility] [address] [facility] [place] [place] [address] Sahil Funk MD [address] [place] [address] [place] [address] 03/07/2023 2:40 PM EST Office Visit Podiatry [facility] [address] [facility] [place] [address] Juliana Vogt, [place] [address] [facility] [address] 03/09/2023 4:40 PM EST Office Visit Family Practice [facility] [address] [facility] [place] [place] [address] Hayes Maurer DO [address] [facility] [place] [id number] 03/14/2023 1:00 PM EST Laboratory Laboratory [facility] [place] [address] [place] [id number] Helene, Lab Scen[address] [facility] [place] [address] 03/14/2023 2:00 PM EST Hem/Onc Treatment Hematology/Oncology Treatment, [place] [address] [place], [place] [address] Helene, Chair [address] Hem Onc Scen[address] [place] [address] 03/15/2023 1:15 PM EST Office Visit Hematology/Oncology Scene [place] [address] [place] [address] Héctor Rodriguez MD [address] [place] [address] 03/15/2023 1:45 PM EST Hem/Onc Treatment Hematology/Oncology Treatment, [place] [address] [facility] [address] 03/16/2023 2:00 PM EST Hem/Onc Treatment Hematology/Oncology Treatment, [place] [address] [facility] [address] 05/18/2023 2:20 PM EDT Office Visit Nutrition & Weight Management, [facility] [address] [facility] [place] [address] Wili Leyva MD [address] [facility] [place] [address] Scheduled Procedures Name Priority Associated Diagnoses Date/Ti me COLONOSCOPY FLEXIBLE PROXIMA L DIAGNOSTIC Recall History of colon polyps Special screening for malignant neoplasms, colon Health Maintenance Due Date Last Done Comments Hepatitis B (2 of 3 - 19+ 3-dose series) 04/23/1997 03/26/1997 Zoster Vaccines (1 of 2) 01/10/2000 DXA Scan 10/25/2018 10/25/2016, 10/25/2016 DTaP,Tdap,and Td Vaccines (2 - Td or Tdap) 04/02/2021 04/02/2011 *BISPHONATE OR OTHER ACCEPTABLE MEDICATION NEEDED FOR OSTEOPOROSIS (REFER TO SMARTSET #1146) 08/09/2022 COVID-19 Vaccine ( season) 2022 03/04/2021, 07/22/2020, 07/01/2020 Influenza Vaccine (FLU shot) (#1) 2022 Depression, Most Recent Score >= 10 (will fire each visit until score < 10) 02/09/2023 02/08/2023 O2 ASSESSMENT COMPLETED IN PAST YEAR FOR COPD 07/20/2023 07/19/2022 TSH 12/28/2023 12/27/2022, 10/05, 10/06/2022, Additional history exists Lipid Panel 03/15/2027 03/15/2022, 02/05, 10/01/2019, Additional history exists COLONOSCOPY-EVERY 5 YRS AGES 18-100 10/18/2027 10/17/2022, 10/17/2022, 12/26/2017, Additional history exists VITAMIN D LEVEL ONCE IN A LIFETIME-USE SMARTSET# 32752 Completed 08/02/2011, 04/24/2009, 06/25/2008, Additional history exists Mammogram Discontinued 12/18/2014, 11/05, 12/22/2006, Additional history exists Pneumococcal Vaccine: 65+ Years Completed 08/10/2017, 06/14/2016 Alpha-1 Antitrypsin Completed 03/15/2022 GARDASIL-HPV IMMUNIZATION SERIES Aged Out No longer eligible based on patient's age to complete this topic MENINGOCOCCAL (MENACTRA/MENVEO) Aged Out No longer eligible based on patient's age to complete this topic documented as of this encounter Medical Devices Not on filedocumented as of this encounter Visit Diagnoses Diagnosis Numbness and tingling of foot- Primary Disturbance of skin sensation documented in this encounter Advance Directives Healthcare Agents on File Name Relationship Healthcare Agent Relationshi p Communication Michael Funk Spouse Health Care Repr esentative (appointed verbally by patient or by statute hierarchy) Care Teams It Sales Executive Relationship Specialty Start Date End Date Hayes Maurer DO [address] [place] [address] PCP - General Family Medicine 04/04/19 documented as of this encounter
--- OUTSIDE RECORDS SUMMARY | 2023-02-27 12:52 | External Medical Summary | Summary of Care ---
Author Name Unknown Organization [facility] Address [address] [place] [address] Phone [phone] Care Team Providers Care Electronic Gluing Machine Operator Name Role Phone Hayes Maurer Primary Care Provider Reason for Visit * Reason Comments Medication Administration Udencya * Episode Based Medications (Routine) - Authorized Specialty Diagnoses / Procedures Referred By Johanny t Referred To Contact Diagnoses Encounter for antineoplastic chemotherapy Small cell lung cancer (HCC) Procedures NV CARBOPLATIN INJECTION NV FOSAPREPITANT INJECTION NV ETOPOSIDE 10 MG INJ NV INJECTION, UDENYCA 0.5 MG Héctor Rodriguez MD [address] [place] [address] Anc Hem/Onc [address] [address] Referral ID Status Reason Start Date Expiration Date V isits Requested Visits Authorized [id number] Authorized 12/30/2022 03/05/2099 999 99 Encounter Details Date Type Department Care Team (Latest Contact Info) Description 02/24/2023 4:15 PM EST Immunization/ Injection Hematology/Oncology Treatment, [address] [address] Helene, Chair 1 Hem Onc [address] [address] Encounter for antineoplastic chemotherapy*; Small cell lung cancer (HCC) Allergies Active Allergy Reactions Criticality Noted Date Comments Morphine 03/26/1997 Shock, dyspnea Other reaction(s): shock, dspnea Neomycin 04/07/2013 documented as of this encounter (statuses as of 02/24/2023) Medications Medication Sig Dispensed Refills Start Date [...] as of this encounter (statuses as of 02/24/2023) Active Problems Problem Noted Date Diagnosed Date [...] as of this encounter (statuses as of 02/24/2023) Resolved Problems Problem Noted Date Diagnosed Date [...] as of this encounter (statuses as of 02/24/2023) Immunizations Name Administration Dates Next Due COVID-19 mRNA, LNP-s, No Pre serve, 2-Dose Series (Pfizer) 03/04/2021,07/22/2020,07/01/2020 Pneumococcal Conjugate Vacc, 13 Valent (Prevnar) 06/14/2016 [...] on file documented as of this encounter Nursing Notes * Domitila Shafer LPN - 02/24/2023 4:15 PM EST Pt arrived for Udencya injection. Administered in BRENDA. Pt tolerated well. To return in 3 weeks. Discharged in stable condition. documented in this encounter Plan of Treatment Upcoming Encounters Date Type Department Care Team (Late st Contact Info) Description 03/07/2023 1:30 PM EST Office Visit Urology, [facility] 132 [facility] [place] [address] Sahil Funk MD [address] [address] [place] [address] 03/07/2023 2:40 PM EST Office Visit Podiatry [facility] [address] [place] [address] Juliana Vogt DPM 132 [place] [address] 03/09/2023 4:40 PM EST Office Visit Family Practice [facility] [address] [facility] [place] [address] Hayes Maurer, [address] [place] [address] 03/14/2023 1:00 PM EST Laboratory Laboratory [facility] [address] [facility] [place] [phone] [place], Lab [facility] [address] [facility] [place] [address] 03/14/2023 2:00 PM EST Hem/Onc Treatment Hematology/Oncology Treatment, [place] [address] [place] [address] Helene, Chair 5 Hem On[address] [place] [address] 03/15/2023 1:15 PM EST Office Visit Hematology/Oncology [facility] [address] [place] [address] Héctor Rodriguez MD 200 [facility] [address] 03/15/2023 1:45 PM EST Hem/Onc Treatment Hematology/Oncology Treatment, [address] [address] 03/16/2023 2:00 PM EST Hem/Onc Treatment Hematology/Oncology Treatment, [address] [place] [address] 05/18/2023 2:20 PM EDT Office Visit Nutrition & Weight Management, [facility] 132 [facility] [place] [address] Wili Leyva MD [address] [place] [address] Scheduled Procedures Name Priority Associated Diagnoses [...] (REFER TO SMARTSET #1146) 08/09/2022 COVID-19 Vaccine (4 - season) 2022 03/04/2021, 07/22/2020, 07/01/2020 Influenza Vaccine [...] D LEVEL ONCE IN A LIFETIME-USE SMARTSET# [id number] Completed 08/02/2011, 04/24/2009, 06/25/2008, Additional history exists [...] as of this encounter Visit Diagnoses Diagnosis Encounter for antineoplastic chemotherapy- Primary Small cell lung cancer (HCC) Malignant neoplasm of bronchus and lung, unspecified site documented in this encounter Administered Medications Active Administered Medications - up to 3 most recent administrations Medication Order MAR Action Action Date Dose Rate Site hEParin 100 UNIT/ML Lock Flush inj 500 Units 500 Units (5 mL), IV Lock, PRN Other, IV Flush, Starting on Mon02/24/23 at 1605, Until 02/25/23 at 1604, For 24 hours, Do not flush if lock, PICC, or central line not in place; IV infusing or unable to flush. NSS infusion FOR HYDRATION Intravenous, at 500 mL/hr Administer over 2 Hours, ONCE PRN, 1 dose, Starting on Mon02/24/23 at 1605, Until Discontinued sodium chloride 0.9 % flush central line 10 mL 10 mL, IV Push, PRN Other, IV Flush, Starting on Mon02/24/23 at 1605, Until 02/25/23 at 1604, For 24 hours, Do not flush if lock, PICC, or central line not in place; IV infusing or unable to flush. Inactive Administered Medications - up to 3 most recent administrations Medication Order MAR Action Action Date Dose Rate Site Pegfilgrastim-cbqv (Udenyca) inj 6 mg 6 mg, Subcutaneous, ONCE, On Mon02/24/23 at 1645, For 1 dose Given 02/24/2023 4:08 PM EST 6 mg Arm R ight Upper documented in this encounter Advance Directives Healthcare Agents on File Name Relationship Healthcare Agent Relationshi p Communication Michael Funk Spouse Health Care Repr esentative (appointed verbally by patient or by statute hierarchy) Care Teams Electronic Gluing Machine Operator Relationship Specialty Start Date End Date Hayes Maurer DO 132 [place] [address] PCP - General Family Medicine 04/04/19 documented as of this encounter
--- OUTSIDE RECORDS SUMMARY | 2023-02-27 12:52 | External Medical Summary | Summary of Care ---
Author Name Unknown Organization [facility] Address [address] [place] [address] Phone [phone] Care Team Providers Care Gun Barrel Finisher Name Role Phone Hayes Maurer Primary Care Provider Reason for Visit * Reason Comments Chemotherapy C3D2 Etoposide * Episode Based Medications (Routine) - Authorized Specialty Diagnoses / Procedures Referred By Johanny t Referred To Contact Diagnoses Encounter for antineoplastic chemotherapy Small cell lung cancer (HCC) Procedures MO CARBOPLATIN INJECTION MO FOSAPREPITANT INJECTION MO ETOPOSIDE 10 MG INJ MO INJECTION, UDENYCA 0.5 MG Héctor Rodriguez MD 200 [facility] [place] [address] Anc Hem/Onc [address] [address] Referral ID Status Reason Start Date Expiration Date V isits Requested Visits Authorized [id number] Authorized 12/30/2022 03/05/2099 999 99 Encounter Details Date Type Department Care Team (Latest Contact Info) Description 02/22/2023 2:30 PM EST Hem/Onc Treatment Hematology/Oncolog y Treatment, [address] [address] Helene, Chair 3 Hem On[address] [address] Encounter for antineoplastic chemotherapy*; Small cell lung [...] on file documented as of this encounter Last Filed Vital Signs Vital Sign Reading Time Taken Comments Blood Pressure 134/86 02/22/2023 2:25 PM EST Pulse 115 02/22/2023 2:25 PM EST Temperature 36.5 C (97.7 F) 02/22/2023 2:25 PM ES T Respiratory Rate 18 02/22/2023 2:25 PM EST Oxygen Saturation 96% 02/22/2023 2:25 PM EST Inhaled Oxygen Concentration - - Weight - - Height - - Body Mass Index - - documented in this encounter Nursing Notes * Christine Crouch, RN - 02/22/2023 4:28 PM EST Functional status at today's visit: Restricted in physically strenuous activity but ambulatory and able to carry out work on a light orsedentary nature, e.g. light house work, office work The drug name, dose, infusion volume, rate and route of administration, expiration date and time, appearance and physical integrity of the drug and rate set on the pump and sequencing of drug administration (as applicable) were verified by me and second sign-in RN. Patient was assessed for symptoms or adverse side effects during treatment. Goals: Patient will remain free from injury. Patient will remain free from injury. Possible barriers to meeting goals: use of wheeled walker Stability of the patient: Moderately unstable - medium risk of patient condition declining or worsening Summary regarding today's goals: Met: Pt remained free of injury during treatment Patient tolerated treatment well and was discharged in stable condition. IV site remains intact fortomorrow. No coverage needed today. * Christine Crouch RN - 02/22/2023 2:56 PM EST Chair 5 Pt arrives for C3D2 Etoposide. She states she's doing well, denies any issues since treatment yesterday. IV site remains intact. Safety and Risk for Injury Patient will remain free from injury. Ensure appropriate safety devices are available. Provide and maintain safe environment. documented in this encounter Plan of Treatment Upcoming Encounters Date Type Department Care Team (Late st Contact Info) Description 02/23/2023 2:30 PM EST Hem/Onc Treatment Hematology/Oncology Treatment, [place] [address] [place] [address] Helene, Chair 1 Hem Onc [place] [address] [place] [address] 03/07/2023 1:30 PM EST Office Visit Urology, [facility] 132 [facility] [place] [address] Sahil Funk MD [address] [facility] [address] [place] [address] 03/07/2023 2:40 PM EST Office Visit Podiatry [facility] 132 [facility] [place] [address] Juliana Vogt DPM [facility] [address] 03/09/2023 4:40 PM EST Office Visit Family Practice [facility] [place] [address] Hayes Maurer, [facility] [place] [address] 03/14/2023 1:00 PM EST Laboratory Laboratory [facility] 200 [facility] [place], [place] [phone] [place], Lab [address] [place], [place] [address] 03/14/2023 2:00 PM EST Hem/Onc Treatment Hematology/Oncology Treatment, [place] 200 [facility], [place] [address] Helene, Chair 5 Hem Onc [address] [place], [place] [address] 03/15/2023 1:15 PM EST Office Visit Hematology/Oncology [facility] 200 [facility], [place] [address] Héctor Rodriguez MD 200 [place] [address] 03/15/2023 1:45 PM EST Hem/Onc Treatment Hematology/Oncology Treatment, [address] [place] [address] 03/16/2023 2:00 PM EST Hem/Onc Treatment Hematology/Oncology Treatment, [address] [place] [address] 05/18/2023 2:20 PM EDT Office Visit Nutrition & Weight Management, [facility] [address] [place] [address] Wili Leyva MD [address] [place] [address] Scheduled Procedures Name Priority Associated [...] D LEVEL ONCE IN A LIFETIME-USE SMARTSET# [id number] Completed 08/02/2011, 04/24/2009, 06/25/2008, Additional history exists [...] MAR Action Action Date Dose Rate Site diphenhydrAMINE (Benadryl) inj 50 mg 50 mg, IV Push, ONCE PRN Other, Hypersensitivity Reaction, Starting on Mon02/22/23 at 1424, Until Kendy 02/23/23 at 1423, For 24 hours EPINEPHrine 1 MG/ML inj 0.3 mg 0.3 mg, Intramuscular, ONCE PRN Other, Hypersensitivity Reaction or Anaphylaxis, Starting on Mon02/22/23 at 1424, Until Kendy 02/23/23 at 1423, For 24 hours hEParin 100 UNIT/ML Lock Flush inj 500 Units 500 Units (5 mL), IV Lock, PRN Other, IV Flush, Starting on Mon02/22/23 at 1424, Until Kendy 02/23/23 at 1423, For 24 hours, Do not flush if lock, PICC, or central line not in place; IV infusing or unable to flush. Given 02/22/2023 4:01 PM EST 500 Units Hydrocortisone Sod Suc (PF) (Solu-Cortef) inj 100 mg 100 mg, IV Push, ONCE PRN Other, Hypersensitivity Reaction, Starting on Mon02/22/23 at 1424, Until Kendy 02/23/23 at 1423, For 24 hours LORAzepam (Ativan) tab 0.5 mg 0.5 mg, Oral, ONCE PRN Anxiety, Nausea, Starting on Mon02/22/23 at 1530, Until Discontinued NSS infusion Intravenous, at 50 mL/hr, PRN, Starting on Mon02/22/23 at 1530, Until Discontinued, KVO Start Infusion 02/22/2023 2:35 PM EST 50 mL/hr oxygen GAS Inhalation, OXYGEN, First dose on Mon02/22/23 at 1600, Until Discontinued, Device/Managed by: Low Flow Device, Goal SPO2 (%): 91-95, Starting Device: Nasal Cannula, Initial Flow Rate (LPM): 2, Lowest Support: Nasal Cannula: Flow 0-6 LPM. Titrate up/down by 1 LPM., Higher Support: Non-Rebreather (NRB) Mask: Minimum of 10 LPM. Titrate to maintain bag inflation., Titration Interval: Q2 minutes and as needed., Notify Provider: For sudden DECREASE in resting SPO2 to less than 85% and when escalating delivery device. sodium chloride 0.9 % flush central line 10 mL 10 mL, IV Push, PRN Other, IV Flush, Starting on Mon02/22/23 at 1424, Until Mon02/23/23 at 1423, For 24 hours, Do not flush if lock, PICC, or central line not in place; IV infusing or unable to flush. Given 02/22/2023 4:01 PM EST 10 mL Inactive Administered Medications - up to 3 most recent administrations Medication Order MAR Action Action Date Dose Rate Site etoposide (VEPESID) 100 mg in NSS 500 mL infusion 100 mg (rounded from 99 mg = 75 mg/m2 1.32 m2 Treatment Plan BSA from Recorded weight), IV Piggyback, ONCE, 1 dose, On Mon02/22/23 at 1600, Administer over 60 Minutes, Recommended concentration is less than or equal to 0.4 mg/mL. If concentration is greater than 0.4 mg/mL recommend to administer through 0.22 micron low protein binding filter. Start Infusion 02/22/2023 3:00 PM EST 100 mg 500 mL/hr ondansetron (Zofran) inj 8 mg 8 mg, IV Push, ONCE, On Mon02/22/23 at 1500, For 1 dose Given 02/22/2023 2:45 PM EST 8 mg documented in this encounter Advance Directives Healthcare Agents on File Name Relationship Healthcare Agent Relationshi p Communication Michael Cifuentes [facility] Health Care Repr esentative (appointed verbally by patient or by statute hierarchy) Care Teams Gun Barrel Finisher Relationship Specialty Start Date End Date Hayes Maurer DO [address] [place] [address] PCP - General Family Medicine 04/04/19 documented as of this encounter
--- OUTSIDE RECORDS SUMMARY | 2023-02-27 12:52 | External Medical Summary | Summary of Care ---
Author Name Unknown Organization [facility] Address [address] [place] [address] Phone [phone] Care Team Providers Care Utility Accounts Director Name Role Phone Hayes Maurer Primary Care Provider Reason for Visit * Reason Comments Medication Administration Udencya * Episode Based Medications (Routine) - Authorized Specialty Diagnoses / Procedures Referred By Johanny t Referred To Contact Diagnoses Encounter for antineoplastic chemotherapy Small cell lung cancer (HCC) Procedures NM CARBOPLATIN INJECTION NM FOSAPREPITANT INJECTION NM ETOPOSIDE 10 MG INJ NM INJECTION, UDENYCA 0.5 MG Héctor Rodriguez MD 200 [place] [address] Anc Hem/Onc [address] [address] Referral ID Status Reason Start Date Expiration Date V isits Requested Visits Authorized [id number] Authorized 12/30/2022 03/05/2099 999 99 Encounter Details Date Type Department Care Team (Latest Contact Info) Description 02/24/2023 4:15 PM EST Immunization/ Injection Hematology/Oncology Treatment, [address] [address] Helene, Chair 1 Hem Onc [address] [address] Encounter for antineoplastic chemotherapy*; Small cell lung [...] 03/07/2023 1:30 PM EST Office Visit Urology, [facility] 132 [facility] [place] [address] Sahil Funk MD [address] [address] [place] [address] 03/07/2023 2:40 PM EST Office Visit Podiatry [facility] [address] [place] [address] Juliana Vogt DPM 132 [place] [address] 03/09/2023 4:40 PM EST Office Visit Family Practice [facility] 132 [facility] [place] [address] Hayes Maurer, [address] [place] [address] 03/14/2023 1:00 PM EST Laboratory Laboratory [facility] 200 [facility] [place] [phone] [place], Lab [facility] 200 [facility] [place] [address] 03/14/2023 2:00 PM EST Hem/Onc Treatment Hematology/Oncology Treatment, [place] 200 [place] [address] Helene, Chair 5 Hem Onc [address] [place] [address] 03/15/2023 1:15 PM EST Office Visit Hematology/Oncology [facility] 200 [place] [address] Héctor Rodriguez MD 200 [facility] [address] 03/15/2023 1:45 PM EST Hem/Onc Treatment Hematology/Oncology Treatment, [address] [address] 03/16/2023 2:00 PM EST Hem/Onc Treatment Hematology/Oncology Treatment, [address] [place] [address] 05/18/2023 2:20 PM EDT Office Visit Nutrition & Weight Management, [facility] 132 [facility] [place] [address] Wili Leyva MD [address] [place] [address] Scheduled Procedures Name Priority Associated [...] D LEVEL ONCE IN A LIFETIME-USE SMARTSET# [id number] Completed 08/02/2011, 04/24/2009, 06/25/2008, Additional history exists [...] patient or by statute hierarchy) Care Teams Utility Accounts Director Relationship Specialty Start Date End Date Hayes Maurer DO 132 [place] [address] PCP - General Family Medicine 04/04/19 documented as of this encounter
--- OUTSIDE RECORDS SUMMARY | 2023-02-27 12:52 | External Medical Summary | Summary of Care ---
Author Name Unknown Organization [facility] Address [address] [place] [address] Phone [phone] Care Team Providers Care Electronic Imaging System Operator Name Role Phone Hayes Maurer DO Primary Care Provider Reason for Visit * Reason Onset Date Comments Sheet Metal Operator Documentation 02/23/2023 Encounter Details Date Type Department Care Team (Late st Contact Info) Description 02/23/2023 Telephone Hematology Oncology, [place] [address] [place] [address] Jatin Padgett, TRACI Sheet Metal Operator Documentation Allergies Active Allergy Reactions Criticality Noted Date Comments Morphine 03/26/1997 Shock, dyspnea Other reaction(s): shock, dspnea Neomycin 04/07/2013 documented as of this encounter (statuses as of 02/23/2023) Medications Medication Sig Dispensed Refills Start Date [...] as of this encounter (statuses as of 02/23/2023) Active Problems Problem Noted Date Diagnosed Date [...] as of this encounter (statuses as of 02/23/2023) Resolved Problems Problem Noted Date Diagnosed Date [...] as of this encounter (statuses as of 02/23/2023) Immunizations Name Administration Dates Next Due COVID-19 mRNA, LNP-s, No Pre serve, 2-Dose Series (Perpetuall) 03/04/2021,07/22/2020,07/01/2020 Pneumococcal Conjugate Vacc, 13 Valent (Prevnar) [...] encounter Miscellaneous Notes * Telephone Encounter - Jatin Padgett MSW - 02/23/2023 2:55 PM EST JAVIER spoke with Mrs. Funk and completed the [employer] application for financial assistance. Godfrey securely e-mailed the application and accompanying documentation to Lupe at the [employer]. Services provided include: Care Coordination Lisa/Financial Assistance Follow-up Calls and Visits Giselle Gayle, FLEET OPERATIONS MANAGER, CONSTRUCTION INSPECTOR Portable Irrigation Operator Hematology/Oncology [place] Office: [phone] [place] Office: [phone] E-mail: [email or web address] documented in this encounter Plan of Treatment Upcoming Encounters Date Type Department Care Team (Late st Contact Info) Description 03/07/2023 1:30 PM EST Office Visit Urology, [facility] 132 [facility] [place] [address] Sahil Funk MD [address] [address] [place] [address] 03/07/2023 2:40 PM EST Office Visit Podiatry [facility] 132 [facility] [place] [address] Juliana Vogt DPM [facility] [place] [address] 03/09/2023 4:40 PM EST Office Visit Family Practice [facility] [address] [place] [address] Hayes Maurer DO [address] [place] [address] 03/14/2023 1:00 PM EST Laboratory Laboratory [facility] [address] [place] [phone] [place], Lab [place] [address] [place] [address] 03/14/2023 2:00 PM EST Hem/Onc Treatment Hematology/Oncology Treatment, [place] 200 [place] [address] [place], Chair [address] Hem On[address] [place] [address] 03/15/2023 1:15 PM EST Office Visit Hematology/Oncology [facility] 200 [facility] [place] [address] Héctor Rodriguez MD 200 [facility] [place] [address] 03/15/2023 1:45 PM EST Hem/Onc Treatment Hematology/Oncology Treatment, [place] 200 [facility] [place] [address] 03/16/2023 2:00 PM EST Hem/Onc Treatment Hematology/Oncology Treatment, [address] [place] [address] 05/18/2023 2:20 PM EDT Office Visit Nutrition & Weight Management, [facility] [address] [place] [address] Wili Leyva MD [address] [place] [address] Scheduled Procedures Name Priority Associated Diagnoses Date/Ti me COLONOSCOPY FLEXIBLE PROXIMA L DIAGNOSTIC Recall History of colon polyps Special screening for malignant neoplasms, colon Health Maintenance Due Date Last Done Comments Zoster Vaccines (1 of 2) 1969 Hepatitis B (2 of 3 - 19+ 3-dose series) 04/23/1997 03/26/1997 DXA Scan 10/25/2018 10/25/2016, 10/25/2016 DTaP,Tdap,and Td [...] D LEVEL ONCE IN A LIFETIME-USE SMARTSET# [id number] Completed 08/02/2011, 04/24/2009, 06/25/2008, Additional history exists [...] Not on filedocumented as of this encounter Advance Directives Healthcare Agents on File Name Relationship Healthcare Agent Relationshi p Communication Michael Funk Spouse Health Care Repr esentative (appointed verbally by patient or by statute hierarchy) Care Teams Electronic Imaging System Operator Relationship Specialty Start Date End Date Hayes Maurer DO [address] [place] [address] PCP - General Family Medicine 04/04/19 documented as of this encounter
--- OUTSIDE RECORDS SUMMARY | 2023-02-27 12:52 | External Medical Summary | Summary of Care ---
Author Name Unknown Organization [facility] Address [address] [place] [address] Phone [phone] Care Team Providers Care Customer Care Consultant Name Role Phone Hayes Maurer Primary Care Provider Reason for Visit * Reason Comments Chemotherapy C3D1 Carboplatin, Et oposide * Episode Based Medications (Routine) - Authorized Specialty Diagnoses / Procedures Referred By Contac t Referred To Contact Diagnoses Encounter for antineoplastic chemotherapy Small cell lung cancer (HCC) Procedures MO CARBOPLATIN INJECTION MO FOSAPREPITANT INJECTION MO ETOPOSIDE 10 MG INJ MO INJECTION, UDENYCA 0.5 MG Héctor Rodriguez MD [address] [facility] [address] Anc [facility] [address] [address] Referral ID Status Reason Start Date Expiration Date V isits Requested Visits Authorized [id number] Authorized 12/30/2022 03/05/[phone] Encounter Details Date Type Department Care Team (Latest Contact Info) Description 02/21/2023 1:30 PM EST Hem/Onc Treatment Hematology/Oncolog y Treatment, [address] [address] Helene, Chair 3 Hem Onc [address] [place] [address] Small cell lung cancer (HCC)*; Encounter for antineoplastic chemotherapy; Drug-related hair loss Allergies Active Allergy Reactions Criticality Noted Date [...] mRNA, LNP-s, No Pre serve, 2-Dose Series ([employer]) 03/04/2021,07/22/2020,07/01/2020 Hepatitis B Vaccine 03/26/1997 Pneumococcal Conjugate [...] Sign Reading Time Taken Comments Blood Pressure 95/57 02/21/2023 1:30 PM EST Pulse 63 02/21/2023 1:30 PM EST Temperature 35.7 C (96.3 F) 02/21/2023 1:30 PM ES T Respiratory Rate 16 02/21/2023 1:30 PM EST Oxygen Saturation 93% 02/21/2023 1:30 PM EST Inhaled Oxygen Concentration - - Weight 39.1 kg (86 lb 3.2 oz) 02/21/2023 1:30 PM EST Height - - Body Mass Index 15.15 12/29/2022 1:09 PM EDT documented in this encounter Nursing Notes * Christine Crouch RN - 02/21/2023 4:50 PM EST Functional status at today's visit: Ambulatory and capable of all selfcare but unable to carry out any work activities. Up and about more than 50% of waking hours The drug name, dose, infusion volume, rate and route of administration, expiration date and time, appearance and physical integrity of the drug and rate set on the pump and sequencing of drug administration (as applicable) were verified by me and second sign-in RN. Patient was assessed for symptoms or adverse side effects during treatment. Goals: Patient will remain free from injury. Possible barriers to meeting goals: ambulation with IV pole, use of walker Stability of the patient: Moderately unstable - medium risk of patient condition declining or worsening Summary regarding today's goals: Met: Pt remained free of injury during treatment today. Patient tolerated treatment well and was discharged in stable condition. IV site remains intact fortomorrow. Coverage by Vane Shafer LPN. * Genet Walton, RN - 02/21/2023 3:59 PM EST Chair 10 Pt here for chemo treatment. C/o feeling "tired all the time". Lab attempted x 4 to draw blood workand only able to draw CMP. 3 nurses attempted a total of 5 times to obtain PIV access. On 5th attempt, IV access obtained and CBC drawn from IV site and sent to lab. Chemo agents Carboplatin, Etoposide Appetite "can't taste" Nausea/Vomiting denies Diarrhea "a little bit" Constipation denies Mucositis denies Fatigue yes Bleeding denies Infection denies Rash denies Numbness tingling denies Pain denies Radiation no ABN Labs WNL for treatment Alt in Tx: dose reduction for decreased weight and renal function - seen in infusion room by Jade Gaytan NP. Labs & VS reviewed. Return in 1 day Safety and Risk for Injury Patient will remain free from injury. Ensure appropriate safety devices are available. Provide and maintain safe environment. Paperwork for [employer] provided to patient who signed for return to secondary social studies teacher. documented in this encounter Plan of Treatment Upcoming Encounters Date Type Department Care Team (Late st Contact Info) Description 02/23/2023 2:30 PM EST Hem/Onc Treatment [facility]emat[facility]cology Treatment, [place] [facility] [address] Helene, Chair 1 Hem Onc Scenery [address] [place] [address] 03/07/2023 1:30 PM EST Office Visit Urology, [facility] 132 [facility] [place] [address] Sahil Funk MD 27 [facility] [address] [place] [address] 03/07/2023 2:40 PM EST Office Visit Podiatry [facility] [address] [facility] [place] [address] Juliana Vogt, DPM [address] [facility] [place] [address] 03/09/2023 4:40 PM EST Office Visit Family Practice [facility] [address] [facility] [place] [address] Hayes Maurer DO [address] [facility] [place] [address] 03/14/2023 1:00 PM EST Laboratory Laboratory [facility] [place] 200 [facility] [place] [phone] Helene, Lab [address] [place] [address] 03/14/2023 2:00 PM EST Hem/Onc Treatment Hematology/Oncology [address], [address] [address] Helene, Chair 5 Hem Onc [address] [place] [address] 03/15/2023 1:15 PM EST Office Visit Hematology/Oncology [facility] [place] 200 [facility] [place] [address] Héctor Rodriguez MD 200 [facility] [place] [address] 03/15/2023 1:45 PM EST Hem/Onc Treatment Hematology/Oncology [address], [address] [address] 03/16/2023 2:00 PM EST Hem/Onc Treatment Hematology/Oncology Treatment, [address] [address] 05/18/2023 2:20 PM EDT Office Visit Nutrition & Weight Management, [facility] [address] [place] [address] Wili Leyva MD 100 [address] [facility] [place] [phone] Scheduled Procedures Name Priority Associated Diagnoses [...] TO SMARTSET #1146) 08/09/2022 COVID-19 Vaccine ( - season) 2022 03/04/2021, 07/22/2020, 07/01/2020 Influenza [...] D LEVEL ONCE IN A LIFETIME-USE SMARTSET# 39841 Completed 08/02/2011, 04/24/2009, 06/25/2008, Additional history exists [...] Not on filedocumented as of this encounter Procedures Procedure Name Priority Date/Time Associated Diagnosis Comments DIFFERENTIAL, AUTOMATED STAT 02/21/2023 1:42 PM EST Small cell lung cancer (HCC) CBC STAT 02/21/2023 1:42 PM EST Small cell lung cancer (HCC) CBC STAT 02/21/2023 1:42 PM EST Small cell lung cancer (HCC) DIFFERENTIAL, TECHNOLOGIST REVIEW Routine 02/21/2023 1:42 PM EST Small cell lung cancer (HCC) documented in this encounter Results * (ABNORMAL) DIFFERENTIAL, TECHNOLOGIST REVIEW (02/21/2023 1:42 PM EST) WBC 17.37(H) 4.00 - 10.80 K/uL 02/21/2023 2:10 PM EST [facility] 56-02 Neutrophils % 87.0(H) 40.0 - 75.0 % 02/21/2023 2:10 PM EST [facility] 56-02 Lymphocytes % 10.0(L) 18.0 - 42.0 % 02/21/2023 2:10 PM EST [facility] 56-02 Monocytes % 3.0 1.0 - 11.0 % 02/21/2023 2:10 PM EST [facility] 56-02 Absolute Neutrophils 15.11(H) 1.80 - 7.70 K/uL 02/21/2023 2:10 PM EST [facility] 56-02 Absolute Lymphocytes 1.74 1.00 - 4.80 K/uL 02/21/2023 2:10 PM EST [facility] 56-02 Absolute Monocytes 0.52 0.00 - 1.10 K/uL 02/21/2023 2:10 PM EST [facility] 56-02 nRBCs 02/21/2023 2:10 PM EST [facility] 56 Blood Venous blood specimen / Unknown Venipuncture / Unknown 02/21/2023 1:42 PM EST 02/21/2023 1:45 PM EST Héctor Rodriguez MD LAB BLOOD ORDERABLES Performing Organization Address City/[facility]/ZIP Co de Phone Number [facility] 56 [address] [place] [address] * DIFFERENTIAL, AUTOMATED (02/21/2023 1:42 PM EST) Blood Venous blood specimen / Unknown Venipuncture / Unknown 02/21/2023 1:42 PM EST 02/21/2023 1:45 PM EST Héctor Rodriguez MD LAB BLOOD ORDERABLES Performing Organization Address City/[facility]/ZIP Co de Phone Number [facility] [address] [place] [phone] * (ABNORMAL) CBC (02/21/2023 1:42 PM EST) WBC 17.37(H) 4.00 - 10.80 K/uL 02/21/2023 2:10 PM EST [facility] 56 RBC 3.52 3.85 - 5.15 M/uL 02/21/2023 2:10 PM EST [facility] 56 HGB 10.2(L) 12.0 - 15.3 g/dL 02/21/2023 2:10 PM EST [facility] 56 HCT 32.5(L) 36.0 - 45.2 % 02/21/2023 2:10 PM EST [facility] 56- MCV 92.3 81.5 - 97.5 fL 02/21/2023 2:10 PM EST [facility] 56 MCH 29.0 27.0 - 34.0 pg 02/21/2023 2:10 PM EST [facility] 56 MCHC 31.4 32.0 - 36.0 g/dL 02/21/2023 2:10 PM EST [facility] 56 RDW 14.6 11.5 - 15.5 % 02/21/2023 2:10 PM EST [facility] 56- PLT 218 140 - 400 K/uL 02/21/2023 2:10 PM EST [facility] 56- MPV 9.9 6.6 - 11.1 fL 02/21/2023 2:10 PM EST [facility] 56- Blood Venous blood specimen / Unknown Venipuncture / Unknown 02/21/2023 1:42 PM EST 02/21/2023 1:45 PM EST Héctor Rodriguez MD LAB BLOOD ORDERABLES [facility] [address] [place], [place] [id number] documented in this encounter Visit Diagnoses Diagnosis Small cell lung cancer (HCC)- Primary Malignant neoplasm of bronchus and lung, unspecified site Encounter for antineoplastic chemotherapy Drug-related hair loss Other alopecia documented in this encounter Administered Medications Inactive Administered Medications - up to 3 most recent administrations Medication Order MAR Action Action Date Dose Rate Site CARBOplatin (Paraplatin) 212 mg in D5W 250 mL infusion 212 mg (rounded from 212.4 mg, Target AUC = 4), IV Piggyback, at 500 mL/hr Administer over 30 Minutes, PROTECT FROM LIGHT (Max Creatinine Clearance at 125 ml/min for calculating AUC dose), ONCE, 1 dose, On Mon02/21/23 at 1600 Start Infusion 02/21/2023 3:25 PM EST 212 mg 500 mL/hr etoposide (VEPESID) 100 mg in NSS 500 mL infusion 100 mg (rounded from 99 mg = 75 mg/m2 1.32 m2 Treatment Plan BSA from Recorded weight), IV Piggyback, ONCE, 1 dose, On Mon02/21/23 at 1600, Administer over 60 Minutes, Recommended concentration is less than or equal to 0.4 mg/mL. If concentration is greater than 0.4 mg/mL recommend to administer through 0.22 micron low protein binding filter. Start Infusion 02/21/2023 3:55 PM EST 100 mg 500 mL/hr Fosaprepitant Dimeglumine (Emend) 150 mg, ondansetron (Zofran) 16 mg, dexamethasone sodium phosphate 12 mg in NSS 250 mL Infusion 150 mg, IV Piggyback, ONCE, 1 dose, On Mon02/21/23 at 1530, Administer over 30 Minutes, Give 30 minutes prior to chemotherapy. Infuse over 30 minutes. Start Infusion 02/21/2023 2:30 PM EST 150 mg 500 mL/hr hEParin 100 UNIT/ML Lock Flush inj 500 Units 500 Units (5 mL), IV Lock, PRN Other, IV Flush, Starting on Mon02/21/23 at 1427, Until Mon02/21/23 at 2057, For 24 hours, Do not flush if lock, PICC, or central line not in place; IV infusing or unable to flush. Given 02/21/2023 4:51 PM EST 500 Units NSS infusion Intravenous, at 50 mL/hr, PRN, Starting on Mon02/21/23 at 1530, Until Mon02/21/23 at 2058, KVO Start Infusion 02/21/2023 1:42 PM EST 50 mL/hr sodium chloride 0.9 % flush central line 10 mL 10 mL, IV Push, PRN Other, IV Flush, Starting on Mon02/21/23 at 1427, Until Mon02/21/23 at 2057, For 24 hours, Do not flush if lock, PICC, or central line not in place; IV infusing or unable to flush. Given 02/21/2023 4:51 PM EST 10 mL documented in this encounter Advance Directives Healthcare Agents on File Name Relationship Healthcare Agent Relationshi p Communication Michael Cifuentes [place] Spouse Health Care Repr esentative (appointed verbally by patient or by statute hierarchy) Care Teams Customer Care Consultant Relationship Specialty Start Date End Date Hayes Maurer DO [address] [place] [address] PCP - General Family Medicine 04/04/19 documented as of this encounter
--- OUTSIDE RECORDS SUMMARY | 2023-02-27 12:52 | External Medical Summary | Summary of Care ---
Author Name Unknown Organization [facility] Address [address] [place] [address] Phone [phone] Care Team Providers Care Die Sinker Apprentice Name Role Phone Hayes Maurer DO Primary Care Provider Reason for Visit * Reason Onset Date Comments Order Request 02/22/2023 Encounter Details Date Type Department Care Team (Late st Contact Info) Description 02/22/2023 Telephone Family Practice [facility] [address] [place] [address] Hayes Maurer DO [address] [place] [address] Order Request Allergies Active Allergy Reactions Criticality [...] 02/22/2023 2:37 PM EST Kaci called from [facility]. Please fax over the Demographics page [phone] * Telephone Encounter - India Wilks RN - 02/22/2023 12:19 PM EST Printed and faxed order with last OV note to [facility] # [phone] * Telephone Encounter - Mirella Ulloa OSA [...] wish to have their order completed at? [facility] or wherever it's usually sent Fax Number, if applicable: Unknown Call Back Number: [phone]. Please let her know if insurance will [...] 03/07/2023 1:30 PM EST Office Visit Urology, [address] [place] [address] Sahil Funk MD [address] [place] [address] [place] [address] 03/07/2023 2:40 PM EST Office Visit Podiatry [facility] [address] [place] [address] Juliana Vogt, [place] [address] [facility] [place] [address] 03/09/2023 4:40 PM EST Office Visit Family Practice [facility] [address] [place] [address] Hayes Maurer, [address] [facility] [place] [address] 03/14/2023 1:00 PM EST Laboratory Laboratory [facility] [address] [place] [phone] Helene, Lab [address]ery [address] [place] [address] 03/14/2023 2:00 PM EST [facility] [address] Helene, Chair 5 Hem Onc [facility] [address] [place] [address] 03/15/2023 1:15 PM EST Office Visit Hematology/Oncology [facility] [place] [address] [place] [address] Héctor Rodriguez MD [address] [place] [address] 03/15/2023 1:45 PM EST Hem/Onc Treatment Hematology/Oncology Treatment, [place] 200 [facility] [address] 03/16/2023 2:00 PM EST Hem/Onc Treatment Hematology/Oncology Treatment, [place] [address] [place] [address] 05/18/2023 2:20 PM EDT Office Visit Nutrition & Weight Management, [facility] [address] [place] [address] Wili Leyva MD [address] [facility] [phone] Scheduled Procedures Name Priority Associated Diagnoses [...] D LEVEL ONCE IN A LIFETIME-USE SMARTSET# [id number] Completed 08/02/2011, 04/24/2009, 06/25/2008, Additional history exists [...] patient or by statute hierarchy) Care Teams Die Sinker Apprentice Relationship Specialty Start Date End Date Hayes Maurer DO [address] [place] [address] PCP - General Family Medicine 04/04/19 documented as of this encounter
--- OUTSIDE RECORDS SUMMARY | 2023-02-27 12:52 | External Medical Summary | Summary of Care ---
Author Name Unknown Organization [facility] Address [address] [place] [address] Phone [phone] Care Team Providers Care Insulation Board Calender Operator Name Role Phone Hayes Maurer Primary Care Provider Reason for Visit * Reason Comments Chemotherapy C3D1 Carboplatin, Et oposide * Episode Based Medications (Routine) - Authorized Specialty Diagnoses / Procedures Referred By Contac t Referred To Contact Diagnoses Encounter for antineoplastic chemotherapy Small cell lung cancer (HCC) Procedures [place] CARBOPLATIN INJECTION TX FOSAPREPITANT INJECTION TX ETOPOSIDE 10 MG INJ TX INJECTION, UDENYCA 0.5 MG Héctor Rodriguez MD [address] [place] [address] Anc Hem/Onc [facility] [address] [address] Referral ID Status Reason Start Date Expiration Date V isits Requested Visits Authorized [id number] Authorized 12/30/2022 03/05/[phone] Encounter Details Date Type Department Care Team (Latest Contact Info) Description 02/21/2023 1:30 PM EST Hem/Onc Treatment Hematology/Oncolog y Treatment, [address] [address] Helene, Chair 3 Hem On[address] [place] [address] Small cell lung cancer (HCC)*; Encounter for [...] mRNA, LNP-s, No Pre serve, 2-Dose Series ([employer]) 03/04/2021,07/22/2020,07/01/2020 Hepatitis B Vaccine 03/26/1997 Pneumococcal Conjugate [...] to patient who signed for return to clinical social worker. documented in this encounter Plan of Treatment Upcoming Encounters Date Type Department Care Team (Late st Contact Info) Description 02/22/2023 2:30 PM EST Hem/Onc Treatment Hematology/Oncology [address], [address] [address] Helene, Chair 3 Hem Onc [address] [place] [address] 02/23/2023 2:30 PM EST Hem/Onc Treatment Hematology/Oncology Treatment, [place] 200 [facility] [place] [address] Helene, Chair 1 Hem Onc [address] [place] [address] 03/07/2023 1:30 PM EST Office Visit Urology, [facility] [address] [place] [address] Sahil Funk MD [address] [place] [address] [place] [address] 03/07/2023 2:40 PM EST Office Visit Podiatry [facility] [address] [place] [address] Juliana Vogt, [place] 132 [facility] [place] [address] 03/09/2023 4:40 PM EST Office Visit Family Practice [facility] 132 [place] [address] Hayes Maurer, 132 [facility] [address] 03/14/2023 1:00 PM EST Laboratory Laboratory [facility] [place] [address] [place] [phone] [place], Lab Scenery 200 [facility] [place], [place] [address] 03/14/2023 2:00 PM EST Hem/Onc Treatment Hematology/Oncology Treatment, [place] [address] [place], [place] [address] Helene, Chair 5 Hem Onc [facility] [address] [place] [address] 03/15/2023 1:15 PM EST Office Visit Hematology/Oncology [facility] [place] [address] [place] [address] Héctor Rodriguez MD [address] [place] [address] 03/15/2023 1:45 PM EST Hem/Onc Treatment Hematology/Oncology Treatment, [place] 200 [place] [address] 03/16/2023 2:00 PM EST Hem/Onc Treatment Hematology/Oncology Treatment, [place] 200 [place] [address] 05/18/2023 2:20 PM EDT Office Visit Nutrition & Weight Management, [facility] 132 [facility] [place] [address] Wili Leyva MD [address] [facility] [place] [phone] Scheduled Procedures Name Priority Associated Diagnoses [...] D LEVEL ONCE IN A LIFETIME-USE SMARTSET# [id number] Completed 08/02/2011, 04/24/2009, 06/25/2008, Additional history exists [...] 02/21/2023 2:10 PM EST [facility] 56 Absolute Lymphocytes 1.74 1.00 - 4.80 K/uL 02/21/2023 2:10 PM EST [facility] 56 Absolute Monocytes 0.52 0.00 - 1.10 K/uL 02/21/2023 2:10 PM EST [facility] 56 nRBCs 02/21/2023 2:10 PM EST [facility] 56 Blood Venous blood specimen / Unknown Venipuncture / Unknown 02/21/2023 1:42 PM EST 02/21/2023 1:45 PM EST Héctor Rodriguez MD LAB BLOOD ORDERABLES [facility] [address] [place] [address] * DIFFERENTIAL, AUTOMATED (02/21/2023 1:42 PM EST) Blood Venous blood specimen / Unknown Venipuncture / Unknown 02/21/2023 1:42 PM EST 02/21/2023 1:45 PM EST Héctor Rodriguez MD LAB BLOOD ORDERABLES Performing Organization Address City/State/[facility] Co de Phone Number [facility] [address] [address] * (ABNORMAL) CBC (02/21/2023 1:42 PM EST) WBC 17.37(H) 4.00 - 10.80 K/uL 02/21/2023 2:10 PM EST [facility] RBC 3.52 3.85 - 5.15 M/uL 02/21/2023 2:10 PM EST [facility] 56 HGB 10.2(L) 12.0 - 15.3 g/dL 02/21/2023 2:10 PM EST [facility] 56 HCT 32.5(L) 36.0 - 45.2 % 02/21/2023 2:10 PM EST [facility] 56 MCV 92.3 81.5 - 97.5 fL 02/21/2023 2:10 PM EST [facility] 56 MCH 29.0 27.0 - 34.0 pg 02/21/2023 2:10 PM EST [address] MCHC 31.4 32.0 - 36.0 g/dL 02/21/2023 2:10 PM EST [address] RDW 14.6 11.5 - 15.5 % 02/21/2023 2:10 PM EST [address] PLT 218 140 - 400 K/uL 02/21/2023 2:10 PM EST [address] MPV 9.9 6.6 - 11.1 fL 02/21/2023 2:10 PM EST [facility] 56 Blood Venous blood specimen / Unknown Venipuncture / Unknown 02/21/2023 1:42 PM EST 02/21/2023 1:45 PM EST Héctor Rodriguez MD LAB BLOOD ORDERABLES [address] [place], [place] [phone] documented in this encounter Visit Diagnoses Diagnosis [...] on Mon02/21/23 at 1427, Until Mon02/21/23 at 205, For 24 hours, Do not flush if lock, PICC, or central line not in place; IV infusing or unable to flush. Given 02/21/2023 4:51 PM EST 10 mL documented in this encounter Advance Directives Healthcare Agents on File Name Relationship Healthcare Agent Relationshi p Communication Michael Cifuentes [place] Spouse Health Care Repr esentative (appointed verbally by patient or by statute hierarchy) Care Teams Insulation Board Calender Operator Relationship Specialty Start Date End Date Hayes Maurer DO [address] [place] [address] PCP - General Family Medicine 04/04/19 documented as of this encounter
--- OUTSIDE RECORDS SUMMARY | 2023-02-27 12:52 | External Medical Summary | Summary of Care ---
Author Name Unknown Organization [facility] Address [address] [place] [address] Phone [phone] Care Team Providers Care Ethyl Blender Name Role Phone Hayes Maurer DO Primary Care Provider Reason for Visit * Reason Onset Date Comments Order Request 02/22/2023 Encounter Details Date Type Department Care Team (Late st Contact Info) Description 02/22/2023 Telephone Family Practice [facility] [address] [place] [address] Hayes Maurer DO [address] [place] [address] Order Request Allergies Active Allergy Reactions Criticality [...] 02/22/2023 2:37 PM EST Kaci called from [facility]. Please fax over the Demographics page [phone] * Telephone Encounter - India Wilks RN - 02/22/2023 12:19 PM EST Printed and faxed order with last OV note to [facility] # [phone] * Telephone Encounter - Mirella Ulloa OSA [...] wish to have their order completed at? [facility] or wherever it's usually sent Fax Number, if applicable: Unknown Call Back Number: [phone]. Please let her know if insurance will [...] 03/07/2023 1:30 PM EST Office Visit Urology, [address] [place] [address] Sahil Funk MD [address] [place] [address] [place] [address] 03/07/2023 2:40 PM EST Office Visit Podiatry [facility] [address] [place] [address] Juliana Vogt, [place] [address] [facility] [place] [address] 03/09/2023 4:40 PM EST Office Visit Family Practice [facility] [address] [place] [address] Hayes Maurer, [address] [facility] [place] [address] 03/14/2023 1:00 PM EST Laboratory Laboratory [facility] [address] [place] [phone] Helene, Lab [address]ery [address] [place] [address] 03/14/2023 2:00 PM EST Hem[facility] [address] Helene, Chair 5 Hem Onc [facility] [address] [place] [address] 03/15/2023 1:15 PM EST Office Visit Hematology/Oncology [facility] [place] [address] [place] [address] Héctor Rodriguez MD [address] [place] [address] 03/15/2023 1:45 PM EST Hem/Onc Treatment Hematology/Oncology Treatment, [place] [address] [employer] [facility] [address] 03/16/2023 2:00 PM EST Hem/Onc Treatment Hematology/Oncology Treatment, [place] [address] [place] [address] 05/18/2023 2:20 PM EDT Office Visit Nutrition & Weight Management, [facility] [address] [place] [address] Wili Leyva MD [address] [facility] [address] Scheduled Procedures Name Priority Associated Diagnoses [...] D LEVEL ONCE IN A LIFETIME-USE SMARTSET# [id number] Completed 08/02/2011, 04/24/2009, 06/25/2008, Additional history exists [...] patient or by statute hierarchy) Care Teams Ethyl Blender Relationship Specialty Start Date End Date Hayes Maurer DO [address] [place] [address] PCP - General Family Medicine 04/04/19 documented as of this encounter
--- OUTSIDE RECORDS SUMMARY | 2023-02-27 12:52 | External Medical Summary | Summary of Care ---
Author Name Unknown Organization [facility] Address [address] [place] [address] Phone [phone] Care Team Providers Care Audio Visual Director Name Role Phone Hayes Maurer Primary Care Provider Reason for Visit * Reason Comments Chemotherapy C3D2 Etoposide * Episode Based Medications (Routine) - Authorized Specialty Diagnoses / Procedures Referred By Johanny t Referred To Contact Diagnoses Encounter for antineoplastic chemotherapy Small cell lung cancer (HCC) Procedures AR CARBOPLATIN INJECTION AR FOSAPREPITANT INJECTION AR ETOPOSIDE 10 MG INJ AR INJECTION, UDENYCA 0.5 MG Héctor Rodriguez MD 200 [facility] [place] [address] Anc Hem/Onc [address] [address] Referral ID Status Reason Start Date Expiration Date V isits Requested Visits Authorized [id number] Authorized 12/30/2022 03/05/2099 999 99 Encounter Details Date Type Department Care Team (Latest Contact Info) Description 02/22/2023 2:30 PM EST Hem/Onc Treatment Hematology/Oncolog y Treatment, [address] [address] Helene, Chair 3 Hem Onc [address] [address] Encounter for antineoplastic chemotherapy*; Small cell lung [...] 2:30 PM EST Hem/Onc Treatment Hematology/Oncology Treatment, [place] [address] [place] [address] Helene, Chair 1 Hem Onc [place] [address] [place] [address] 03/07/2023 1:30 PM EST Office Visit Urology, [facility] 132 [facility] [place] [address] Sahil Funk MD [address] [place] [address] [place] [address] 03/07/2023 2:40 PM EST Office Visit Podiatry [facility] 132 [facility] [place] [address] Juliana Vogt DPM [facility] [place] [address] 03/09/2023 4:40 PM EST Office Visit Family Practice [facility] [place] [address] Hayes Maurer DO [address] [place] [address] 03/14/2023 1:00 PM EST Laboratory Laboratory [facility] 200 [facility] [place] [phone] Helene, Lab [address] [place] [address] 03/14/2023 2:00 PM EST Hem/Onc Treatment Hematology/Oncology Treatment, [place] 200 [facility] [place] [address] Helene, Chair 5 Hem Onc [address] [place] [address] 03/15/2023 1:15 PM EST Office Visit Hematology/Oncology [facility] 200 [facility] [place] [address] Héctor Rodriguez MD 200 [place] [address] 03/15/2023 1:45 PM EST Hem/Onc Treatment Hematology/Oncology Treatment, [address] [place] [address] 03/16/2023 2:00 PM EST Hem/Onc Treatment Hematology/Oncology Treatment, [address] [place] [address] 05/18/2023 2:20 PM EDT Office Visit Nutrition & Weight Management, [facility] 132 [facility] [place] [address] Wili Leyva MD [address] [place] [address] Scheduled Procedures Name Priority Associated [...] SMARTSET #[id number]) 08/09/2022 COVID-19 Vaccine (4 - 2022- season) 2022 03/04/2021, 07/22/2020, 07/01/2020 Influenza Vaccine [...] D LEVEL ONCE IN A LIFETIME-USE SMARTSET# [id number] Completed 08/02/2011, 04/24/2009, 06/25/2008, Additional history exists [...] site documented in this encounter Administered Medications Inactive [...] 3:00 PM EST 100 mg 500 mL/hr hEParin 100 UNIT/ML Lock Flush inj 500 Units 500 Units (5 mL), IV Lock, PRN Other, IV Flush, Starting on Mon02/22/23 at 1424, Until Mon02/22/23 at 2030, For 24 hours, Do not flush if lock, PICC, or central line not in place; IV infusing or unable to flush. Given 02/22/2023 4:01 PM EST 500 Units NSS infusion Intravenous, at 50 mL/hr, PRN, Starting on Mon02/22/23 at 1530, Until Mon02/22/23 at 2030, KVO Start Infusion 02/22/2023 2:35 PM EST 50 mL/hr ondansetron (Zofran) inj 8 mg 8 mg, IV Push, ONCE, On Mon02/22/23 at 1500, For 1 dose Given 02/22/2023 2:45 PM EST 8 mg sodium chloride 0.9 % flush central line 10 mL 10 mL, IV Push, PRN Other, IV Flush, Starting on Mon02/22/23 at 1424, Until Mon02/22/23 at 2030, For 24 hours, Do not flush if lock, PICC, or central line not in place; IV infusing or unable to flush. Given 02/22/2023 4:01 PM EST 10 mL documented in this encounter Advance Directives Healthcare Agents on File Name Relationship Healthcare Agent Relationshi p Communication Michael Cifuentes [place] Spouse Health Care Repr esentative (appointed verbally by patient or by statute hierarchy) Care Teams Audio Visual Director Relationship Specialty Start Date End Date Hayes Maurer DO [address] [place] [address] PCP - General Family Medicine 04/04/19 documented as of this encounter
--- OUTSIDE RECORDS SUMMARY | 2023-02-27 12:52 | External Medical Summary | Summary of Care ---
Author Name Unknown Organization [facility] Address [address] [place] [address] Phone [phone] Care Team Providers Care Tree Feller Operator Name Role Phone Hayes Maurer Primary Care Provider Reason for Visit * Reason Comments Chemotherapy Etoposide D3 * Episode Based Medications (Routine) - Authorized Specialty Diagnoses / Procedures Referred By Johanny garcia Referred To Contact Diagnoses Encounter for antineoplastic chemotherapy Small cell lung cancer (HCC) Procedures IN CARBOPLATIN INJECTION IN FOSAPREPITANT INJECTION IN ETOPOSIDE 10 MG INJ IN INJECTION, UDENYCA 0.5 MG Héctor Rodriguez MD 200 [facility] [place] [address] Anc Hem/Onc [address] [address] Referral ID Status Reason Start Date Expiration Date V isits Requested Visits Authorized [id number] Authorized 12/30/2022 03/05/2099 999 99 Encounter Details Date Type Department Care Team (Latest Contact Info) Description 02/23/2023 2:30 PM EST Hem/Onc Treatment Hematology/Oncolog y Treatment, [address] [address] Helene, Chair 1 Hem Onc [address] [place] [address] Encounter for antineoplastic chemotherapy*; Small cell lung [...] MCG/ACT Inhalation Aerosol Powder Breath Activated (umeclidinium-vilant sadaia) Inhale 1 Puff by mouth. 0 Active [...] Sign Reading Time Taken Comments Blood Pressure 121/70 02/23/2023 3:10 PM EST Pulse 89 02/23/2023 3:10 PM EST Temperature 36.2 C (97.1 F) 02/23/2023 3:10 PM ES T Respiratory Rate 18 02/23/2023 3:10 PM EST Oxygen Saturation - - Inhaled Oxygen Concentration - - Weight - - Height - - Body Mass Index - - documented in this encounter Nursing Notes * Elyssa Lord, RN - 02/23/2023 4:11 PM EST Chair 4, Etoposide. Aside from fatigue, pt has no new acute concerns to report since treatment yesterday. PIV assessed for patency; discontinued and new PIV established. NSS infusing. Safety and Risk for Injury Patient will remain free from injury. Ensure appropriate safety devices are available. Provide and maintain safe environment. Functional status at today's visit: Ambulatory and [...] symptoms or adverse side effects during treatment. Pt completed treatment without issues. PIV removed. Goals: Pt will remain free from I njury Possible barriers to meeting goals: pt is a high fall risk Stability of the patient: Moderately unstable - medium risk of patient condition declining or worsening Summary regarding today's goals: Met: Pt remained free from injury during treatment today. Discharged in stable condition. BR assisted. documented in this encounter Plan of Treatment Upcoming Encounters Date Type Department Care Team (Late st Contact Info) Description 03/07/2023 1:30 PM EST Office Visit Urology, [facility] [address] [place] [address] Sahil Funk MD [address] [place] [address] [place] [address] 03/07/2023 2:40 PM EST Office Visit Podiatry [facility] [place] [address] Juliana Vogt DPM [address] [facility] [place] [address] 03/09/2023 4:40 PM EST Office Visit Family Practice [facility] [place] [address] Hayes Maurer DO [address] [facility] [place] [address] 03/14/2023 1:00 PM EST Laboratory Laboratory [facility] [place] [address] [place] [phone] [place], Lab Scen[address] [facility] [place] [address] 03/14/2023 2:00 PM EST Hem/Onc Treatment Hematology/Oncology Treatment, [place] [address] [place] [address] Helene, Chair 5 Hem Onc [place] [address] [place] [address] 03/15/2023 1:15 PM EST [facility] 200 [place] [address] Héctor Rodriguez MD 200 [place] [address] 03/15/2023 1:45 PM EST Hem/Onc Treatment Hematology/Oncology Treatment, [place] [address] [place] [address] 03/16/2023 2:00 PM EST Hem/Onc Treatment Hematology/Oncology Treatment, [place] [address] [place] [address] 05/18/2023 2:20 PM EDT Office Visit Nutrition & Weight Management, [facility] 132 [place] [address] Wili Leyva MD [address] [place] [address] Scheduled Procedures Name Priority Associated [...] D LEVEL ONCE IN A LIFETIME-USE SMARTSET# [id number] Completed 08/02/2011, 04/24/2009, 06/25/2008, Additional history exists [...] ONCE PRN Other, Hypersensitivity Reaction, Starting on Mon02/23/23 at 1500, Until Mon02/24/23 at 1459, For 24 hours EPINEPHrine 1 MG/ML inj 0.3 mg 0.3 mg, Intramuscular, ONCE PRN Other, Hypersensitivity Reaction or Anaphylaxis, Starting on Kendy 02/23/23 at 1500, Until Mon02/24/23 at 1459, For 24 hours hEParin 100 UNIT/ML Lock Flush inj 500 Units 500 Units (5 mL), IV Lock, PRN Other, IV Flush, Starting on Kendy 02/23/23 at 1500, Until Mon02/24/23 at 1459, For 24 hours, Do not flush if lock, PICC, or central line not in place; IV infusing or unable to flush. Hydrocortisone Sod Suc (PF) (Solu-Cortef) inj 100 mg 100 mg, IV Push, ONCE PRN Other, Hypersensitivity Reaction, Starting on Mon02/23/23 at 1500, Until Mon02/24/23 at 1459, For 24 hours LORAzepam (Ativan) tab 0.5 mg 0.5 mg, Oral, ONCE PRN Anxiety, Nausea, Starting on Mon02/23/23 at 1615, Until Discontinued NSS infusion Intravenous, at 50 mL/hr, PRN, Starting on Mon02/23/23 at 1615, Until Discontinued, KVO Start Infusion 02/23/2023 3:05 PM EST 50 mL/hr oxygen GAS Inhalation, OXYGEN, First dose on Mon02/23/23 at 1600, Until Discontinued, Device/Managed by: Low [...] Push, PRN Other, IV Flush, Starting on Mon02/23/23 at 1500, Until Mon02/24/23 at 1459, For 24 hours, Do not flush if [...] weight), IV Piggyback, ONCE, 1 dose, On Mon02/23/23 at 1645, Administer over 60 Minutes, Recommended concentration is less than or equal to 0.4 mg/mL. If concentration is greater than 0.4 mg/mL recommend to administer through 0.22 micron low protein binding filter. Start Infusion 02/23/2023 3:18 PM EST 100 mg 500 mL/hr ondansetron (Zofran) inj 8 mg 8 mg, IV Push, ONCE, On Kendy 02/23/23 at 1545, For 1 dose Given 02/23/2023 3:05 PM EST 8 mg documented in this encounter Advance Directives Healthcare Agents on File Name Relationship Healthcare Agent Relationshi p Communication Michael Funk Spouse Health Care Repr esentative (appointed verbally by patient or by statute hierarchy) Care Teams Tree Feller Operator Relationship Specialty Start Date End Date Hayes Maurer DO [address] [place] [address] PCP - General Family Medicine 04/04/19 documented as of this encounter
--- OUTSIDE RECORDS SUMMARY | 2023-02-27 12:52 | External Medical Summary | Summary of Care ---
Author Name Unknown Organization [facility] Address [address] [place] [address] Phone [phone] Care Team Providers Care Support Services Tech Name Role Phone Hayes Maurer DO Primary Care Provider Reason for Visit * Reason Onset Date Comments Order Request 02/22/2023 Encounter Details Date Type Department Care Team (Late st Contact Info) Description 02/22/[address] [facility] [address] [place] [address] Hayes Maurer DO [address] [place] [address] Order Request Allergies Active Allergy Reactions Criticality [...] encounter Miscellaneous Notes * Telephone Encounter - India Wilks RN - 02/22/2023 12:19 PM EST Printed and faxed order with last OV note to [facility] # [phone] * Telephone Encounter - Mirella Ulloa OSA [...] wish to have their order completed at? [facility] or wherever it's usually sent Fax Number, if applicable: Unknown Call Back Number: [phone]. Please let her know if insurance will [...] 2:30 PM EST Hem/Onc Treatment Hematology/Oncology Treatment, [place] 200 [facility] [address] Helene, Chair 3 Hem Onc [facility] 200 [facility] [place] [address] 02/23/2023 2:30 PM EST Hem/Onc Treatment Hematology/Oncology Treatment, [place] 200 [facility] [place] [address] Helene, Chair 1 Hem Onc [address] [place] [address] 03/07/2023 1:30 PM EST Office Visit Urology, [facility] [address] [facility] [place] [address] Sahil Funk MD [address] [place] [address] [place] [address] 03/07/2023 2:40 PM EST Office Visit Podiatry [facility] [address] [place] [address] Juliana Vogt DPM [facility] [place] [address] 03/09/2023 4:40 PM EST Office Visit Family Practice [facility] [address] [facility] [place] [address] Hayes Maurer DO [facility] [place] [address] 03/14/2023 1:00 PM EST Laboratory Laboratory [facility] [place] [address] [place] [phone] Helene, Lab Scenery 200 [facility] [place] [address] 03/14/2023 2:00 PM EST [facility] [address] [place], [place] [address] Helene, Chair 5 Hem Onc [place] [place] [address] 03/15/2023 1:15 PM EST Office Visit Hematology/Oncology [facility] [place] [address] [place] [address] Héctor Rodriguez MD [address] [place] [address] 03/15/2023 1:45 PM EST Hem/Onc Treatment Hematology/Oncology Treatment, [place] 200 [facility] [place] [address] 03/16/2023 2:00 PM EST Hem/Onc Treatment Hematology/Oncology Treatment, [place] 200 [facility] [place] [address] 05/18/2023 2:20 PM EDT Office Visit Nutrition & Weight Management, [facility] 132 [facility] [place] [address] Wili Leyva MD 100 [address] [facility] [place] [address] Scheduled Procedures Name Priority Associated Diagnoses [...] D LEVEL ONCE IN A LIFETIME-USE SMARTSET# [id number] Completed 08/02/2011, 04/24/2009, 06/25/2008, Additional history exists [...] patient or by statute hierarchy) Care Teams Support Services Tech Relationship Specialty Start Date End Date Hayes Maurer DO 132 [place] [address] PCP - General Family Medicine 04/04/19 documented as of this encounter
--- OUTSIDE RECORDS SUMMARY | 2023-02-27 12:53 | External Medical Summary ---
Author Name Unknown Address Unknown Organization K09[facility] [place] [address] Laboratory Report Ordering Provider Test Date Status PARISH JAIME 02/21/2023 13:42:15 Final Observation Date Value Abnormality Reference (Units ) Status WBC, Total 02/21/2023 13:42:15 17.37 Above high normal 4 .00-10.80 (K/uL) Final RBC 02/21/2023 13:42:15 3.52 3.85-5.15 (M/uL) Final Hemoglobin 02/21/2023 13:42:15 10.2 Below low normal 12 .0-15.3 (g/dL) Final HCT 02/21/2023 13:42:15 32.5 Below low normal 36. 0-45.2 (%) Final MCV 02/21/2023 13:42:15 92.3 81.5-97.5 (fL) Final MCH 02/21/2023 13:42:15 29.0 27.0-34.0 (pg) Final MCHC 02/21/2023 13:42:15 31.4 32.0-36.0 (g/dL) Final RDW 02/21/2023 13:42:15 14.6 11.5-15.5 (%) Final Platelets 02/21/2023 13:42:15 218 140-400 (K /uL) Final MPV 02/21/2023 13:42:15 9.9 6.6-11.1 ( fL) Final Performing Location [facility] [place] [address]
--- OUTSIDE RECORDS SUMMARY | 2023-02-27 12:53 | External Medical Summary | Summary of Care ---
Author Name Unknown Organization [facility] Address [address] [place] [address] Phone [phone] Care Team Providers Care Sales Service Promoter Name Role Phone Hayes Maurer Primary Care Provider Reason for Referral * Social Care (Within 10 days (routine)) - Pending Review Specialty Diagnoses / Procedures Referred By Johanny garcia Referred To Contact Crop Nutrition Scientist Diagnoses Small cell lung cancer (HCC) Héctor Rodriguez MD [address] [place] [address] Referral ID Status Reason Start Date Expiration Date Visits Requested Visits Authorized [id number] Pending Review Specialty Services Required 02/07/[phone] Question Answer Referral Priority Within 10 days (routine) Where should this appointment be scheduled? [facility] Role Wick Tender Referring Reason: Coordinate Cancer Resources Comments Is patient being transitioned from [facility] to Complex Case Management? No Financial concerns, possible food insecurity Reason for Visit * Reason Onset Date Comments Information 02/07/2023 Encounter Details Date Type Department Care Team (Late st Contact Info) Description 02/07/2023 Telephone Hematology/Oncology [facility], [place] [facility] [address] Héctor Rodriguez MD 200 [place] [address] Information Allergies Active Allergy Reactions Criticality Noted Date Comments Morphine 03/26/1997 Shock, dyspnea Other reaction(s): shock, dspnea Neomycin 04/07/2013 documented as of this encounter (statuses as of 02/07/2023) Medications Medication Sig Dispensed Refills Start Date [...] as of this encounter (statuses as of 02/07/2023) Active Problems Problem Noted Date Diagnosed Date [...] as of this encounter (statuses as of 02/07/2023) Resolved Problems Problem Noted Date Diagnosed Date [...] as of this encounter (statuses as of 02/07/2023) Immunizations Name Administration Dates Next Due COVID-19 [...] Answer Date Recorded PHQ Adult Total Score 0 03/15/2022 Hunger Vital Sign Answer Date Recorded Within [...] encounter Miscellaneous Notes * Telephone Encounter - Pili Bucio RN - 02/07/2023 2:14 PM EST Received message from Mary with [facility] hospitalist office. Patient somehow got to their office looking for financial concerns, possible food insecurity. Referral for SW placed. documented in this encounter Plan of Treatment Upcoming Encounters Date Type Department Care Team (Late st Contact Info) Description 02/21/2023 12:30 PM EST Laboratory Laboratory [facility] 200 [facility] [place] [address] Helene, Lab Scenery [address] [facility] [place] [address] 02/21/2023 1:30 PM EST Hem/Onc Treatment Hematology/Oncology Treatment, [place] [facility] [address] Helene, Chair 3 Hem Onc [facility] [address] [place] [address] 02/22/2023 2:30 PM EST Hem/Onc Treatment Hematology/Oncology Treatment, [place] 200 [facility] [address] Helene, Chair 3 Hem Onc Scenery [address] [place] [address] 02/23/2023 2:30 PM EST Hem/Onc Treatment Hematology/Oncology Treatment, [place] 200 [facility], [place] [address] Helene, Chair 1 Hem Onc Scenery [address] [place] [address] 03/07/2023 1:30 PM EST Office Visit Urology, [facility] [address] [facility] [place] [address] Sahil Funk MD [address] [facility] [address] [place] [address] 03/07/2023 2:40 PM EST Office Visit Podiatry [facility] [place] [address] Juliana Vogt DPM [address] [facility] [address] 03/09/2023 4:40 PM EST Office Visit Family Practice [facility] 132 [facility] [place] [address] Hayes Maurer, [address] [facility] [place] [address] 03/14/2023 1:00 PM EST Laboratory Laboratory [facility] [place] [address] [place] [address] Helene Lab Scenery [address] [place] [address] 03/14/2023 2:00 PM EST Hem/Onc Treatment Hematology/Oncology Treatment, [place] 200 [facility], [place] [address] Helene, Chair 1 Hem Onc Scenery [address] [place] [address] 03/15/2023 1:15 PM EST Office Visit Hematology/Oncology [facility] 200 [facility] [place], [place] [address] Héctor Rodriguez MD 200 [facility] [place] [address] 03/15/2023 1:45 PM EST Hem/Onc Treatment Hematology/Oncology Treatment, [place] 200 [place] [address] 03/16/2023 2:00 PM EST Hem/Onc Treatment Hematology/Oncology Treatment, [place] 200 [place] [address] 05/15/2023 3:00 PM EDT Office Visit Nutrition & Weight Management, [facility] [address] [address] Preethi Fletcher PA-C [address] [place] [address] Scheduled Procedures Name Priority Associated Diagnoses Date/Ti me COLONOSCOPY FLEXIBLE PROXIMA L DIAGNOSTIC Recall History of colon polyps Special screening for malignant neoplasms, colon Scheduled Referrals Name Type Priority Associated Diagnoses Orde r Schedule POPULATION HEALTH REFERRAL OP Referral Within 10 days (routine) Small cell lung cancer (HCC) Ordered: 02/07/2023 Health Maintenance Due Date Last Done Comments [...] 07/01/2020 Influenza Vaccine (FLU shot) (#1) 2022 Depression Screening 03/15/2023 03/15/2022 O2 ASSESSMENT COMPLETED IN PAST YEAR FOR COPD 07/20/2023 07/19/2022 TSH 12/28/2023 12/27/2022, 10/05, 10/06/2022, Additional history exists Lipid Panel 03/15/2027 03/15/2022, 12, 10/01/2019, Additional history exists COLONOSCOPY-EVERY 5 YRS AGES 18-100 10/18/2027 10/17/2022, 10/17/2022, 12/26/2017, Additional history exists VITAMIN D LEVEL ONCE IN A LIFETIME-USE SMARTSET# [id number] Completed 08/02/2011, 04/24/2009, 06/25/2008, Additional history exists [...] as of this encounter Visit Diagnoses Diagnosis Small cell lung cancer (HCC)- Primary Malignant neoplasm of bronchus and lung, unspecified site documented in this encounter Advance Directives Healthcare Agents on File Name Relationship Healthcare Agent Relationshi p Communication Michael Cifuentes [place] Spouse Health Care Repr esentative (appointed verbally by patient or by statute hierarchy) Care Teams Sales Service Promoter Relationship Specialty Start Date End Date Hayes Maurer DO [address] [place] [address] PCP - General Family Medicine 04/04/19 documented as of this encounter
--- OUTSIDE RECORDS SUMMARY | 2023-02-27 12:53 | External Medical Summary | Summary of Care ---
Author Name Unknown Organization [facility] Address [address] [place] [address] Phone [phone] Care Team Providers Care Wastewater Treatment Plant Instructor Name Role Phone Hayes Maurer DO Primary Care Provider Reason for Visit * Reason Onset Date Comments School Services Officer Documentation 02/08/2023 Encounter Details Date Type Department Care Team (Late st Contact Info) Description 02/08/2023 Telephone Hematology Oncology, [place] [address] [place] [address] Jatin Padgett, TRACI School Services Officer Documentation Allergies Active Allergy Reactions Criticality Noted Date Comments Morphine 03/26/1997 Shock, dyspnea Other reaction(s): shock, dspnea Neomycin 04/07/2013 documented as of this encounter (statuses as of 02/08/2023) Medications Medication Sig Dispensed Refills Start Date [...] as of this encounter (statuses as of 02/08/2023) Active Problems Problem Noted Date Diagnosed Date [...] as of this encounter (statuses as of 02/08/2023) Resolved Problems Problem Noted Date Diagnosed Date [...] as of this encounter (statuses as of 02/08/2023) Immunizations Name Administration Dates Next Due COVID-19 mRNA, LNP-s, No Pre serve, 2-Dose Series (Picket) 03/04/2021,07/22/2020,07/01/2020 Pneumococcal Conjugate Vacc, 13 Valent (Prevnar) [...] Telephone Encounter - Jatin Padgett MSW - 02/08/2023 3:50 PM EST JAVIER spoke with Mrs. Funk regarding the current needs she had within the home. She reported having difficulties with her health and with her emotional state. Mrs. Funk stated she has been struggling and has anxiety about her treatment/prognosis. She stated she wants her to be able to pickup meals, from a local restaurant, each night, because of her inability to cook. She stated she haslost weight and is worried she is not getting enough to eat. Mrs. Funk went on to say that her continues to work, is not with her during the day, and often does not do well with cooking meals. SW stated he would look into some of the local resources available to her and would work on getting her the [employer] Application to review/fill out. SW provided her with both of his office numbers and encouraged her to call with any other questions or concerns. Services provided include: Care Coordination Lisa/Financial Assistance Community Resource Planning Follow-up Calls and Visits Nutrition Assistance [facility] Giselle Gayle, PHOTOCOMPOSING KEYBOARD OPERATOR, DIRECTOR PUBLIC POLICY Java User Interface Developer Hematology/Oncology [place] Office: [phone] [place] Office: [phone] E-mail: [email or web address] documented in this encounter Plan of Treatment Upcoming Encounters Date Type Department Care Team (Late st Contact Info) Description 02/21/2023 12:30 PM EST Laboratory Laboratory [facility] [place] [address] [place] [address] [facility] [place] [address] 02/21/2023 1:30 PM EST Hem/Onc Treatment Hematology/Oncology Treatment, [address] [place] [address] Helene, Chair 3 Hem On[place] [address] 02/22/2023 2:30 PM EST Hem/Onc Treatment Hematology/Oncology Treatment, [address] [place] [id number] [place], Chair 3 Hem Onc Scenery [address] [place] [address] 02/23/2023 2:30 PM EST Hem/Onc Treatment Hematology/Oncology Treatment, [place] 200 [facility], [place] [address] Helene, Chair 1 Hem Onc Scenery [address] [place] [address] 03/07/2023 1:30 PM EST Office Visit [facility]rology, [facility] [place] [address] Sahil Funk MD [address] [address] [place] [address] 03/07/2023 2:40 PM EST Office Visit Podiatry [facility] [place] [address] Juliana Vogt DPM [address] [facility] [place] [address] 03/09/2023 4:40 PM EST Office Visit Family Practice [facility] [place] [address] Hayes Maurer, [facility] [place] [address] 03/14/2023 1:00 PM EST Laboratory Laboratory Scenery [facility] [address] [place] [address] Helene, Lab Scenery [address] [facility] [place] [address] 03/14/2023 2:00 PM EST Hem/Onc Treatment Hematology/Oncology Treatment, [place] [facility] [place] [address] Helene, Chair 1 Hem Onc Scenery [address] [place] [address] 03/15/2023 1:15 PM EST Office Visit Hematology/Oncology [facility] 200 [facility] [place] [address] Héctor Rodriguez MD 200 [facility] [place] [address] 03/15/2023 1:45 PM EST Hem/Onc Treatment Hematology/Oncology Treatment, [place] 200 [facility] [address] 03/16/2023 2:00 PM EST Hem/Onc Treatment Hematology/Oncology Treatment, [place] 200 [facility] [address] 05/15/2023 3:00 PM EDT Office Visit Nutrition & Weight Management, [facility] [address] [address] Preethi Fletcher PA-C [address] [place] [address] Scheduled Procedures Name Priority Associated Diagnoses Date/Ti [...] (FLU shot) (#1) 2022 Depression Screening 03/15/2023 02/08/2023 O2 ASSESSMENT COMPLETED IN PAST YEAR FOR COPD 07/20/2023 07/19/2022 TSH 12/28/2023 12/27/2022, 10/05, 10/06/2022, Additional history exists Lipid Panel 03/15/2027 03/15/2022, 02/05, 10/01/2019, Additional history exists COLONOSCOPY-EVERY 5 YRS AGES 18-100 10/18/2027 10/17/2022, 10/17/2022, 12/26/2017, Additional history exists VITAMIN D LEVEL ONCE IN A LIFETIME-USE SMARTSET# [id number] Completed 08/02/2011, 04/24/2009, 06/25/2008, Additional history exists [...] Healthcare Agent Relationshi p Communication Michael Cifuentes [place] Spouse Health Care Repr esentative (appointed verbally by patient or by statute hierarchy) Care Teams Wastewater Treatment Plant Instructor Relationship Specialty Start Date End Date Hayes Maurer DO 132 [place] [address] PCP - General Family Medicine 04/04/19 documented as of this encounter
--- OUTSIDE RECORDS SUMMARY | 2023-02-27 12:53 | External Medical Summary | Summary of Care ---
Author Name Unknown Organization [facility] Address [address] [place] [address] Phone [phone] Care Team Providers Care Software Project Lead Name Role Phone Hayes Maurer Primary Care Provider Reason for Visit * Reason Comments Outpatient Testing Encounter Details Date Type Department Care Team (Late st Contact Info) Description 02/21/2023 12:30 PM EST Laboratory Laboratory [facility] [address] [place] [phone] [facility] Scenery [address] [place] [address] Small cell lung cancer (HCC) Allergies Active Allergy Reactions Criticality Noted Date Comments Morphine 03/26/1997 Shock, dyspnea Other reaction(s): shock, dspnea Neomycin 04/07/2013 documented as of this encounter (statuses as of 02/21/2023) Medications Medication Sig Dispensed Refills Start Date [...] as of this encounter (statuses as of 02/21/2023) Active Problems Problem Noted Date Diagnosed Date [...] as of this encounter (statuses as of 02/21/2023) Resolved Problems Problem Noted Date Diagnosed Date [...] as of this encounter (statuses as of 02/21/2023) Immunizations Name Administration Dates Next Due COVID-19 mRNA, LNP-s, No Pre serve, 2-Dose Series (Oh My Green!) 03/04/2021,07/22/2020,07/01/2020 Pneumococcal Conjugate Vacc, 13 Valent (Prevnar) [...] on file documented as of this encounter Plan of Treatment Upcoming Encounters Date Type Department Care Team (Late st Contact Info) Description 02/22/2023 2:30 PM EST Hem/Onc Treatment Hematology/Oncology Treatment, [place] 200 [facility], [place] [address] Helene, Chair 3 Hem Onc Scenery 200 [facility] [place] [address] 02/23/2023 2:30 PM EST Hem/Onc Treatment Hematology/Oncology Treatment, [place] 200 [facility] [address] Helene, Chair 1 Hem Onc Scenery 200 [facility] [place] [address] 03/07/2023 1:30 PM EST Office Visit Urology, [facility] [address] [facility] [place] [address] Sahil Funk MD [address] [facility] [place] [address] 03/07/2023 2:40 PM EST Office Visit Podiatry [facility] [address] [place] [address] Juliana Vogt, [place] [address] [facility] [place] [address] 03/09/2023 4:40 PM EST Office Visit Family Practice [facility] [address] [place] [address] Hayes Maurer, [address] [facility] [place] [address] 03/14/2023 1:00 PM EST Laboratory Laboratory [facility] [place] [address] [place] [phone] Helene, Lab Scenery [address] [facility] [place] [address] 03/14/2023 2:00 PM EST Hem/Onc Treatment Hematology/Oncology Treatment, [place] 200 [facility] [place] [address] Park, Chair 5 [address] On[address] [address] 03/15/2023 1:15 PM EST Office Visit Hematology/Oncology [facility] 200 [facility] [place] [address] Héctor Rodriguez MD 200 [place] [address] 03/15/2023 1:45 PM EST Hem/Onc Treatment Hematology/Oncology Treatment, [place] 200 [place] [address] 03/16/2023 2:00 PM EST Hem/Onc Treatment Hematology/Oncology Treatment, [address] [address] 05/18/2023 2:20 PM EDT Office Visit Nutrition & Weight Management, [facility] 132 [place] [address] Wili Leyva MD [address] [place] [address] Scheduled Orders Name Type Priority Associated Diagnoses Orde r Schedule CBC Lab STAT Small cell lung cancer (HCC) Ordered: 02/21/2023 DIFFERENTIAL, AUTOMATED Lab STAT Small cell lung cancer (HCC) Ordered: 02/21/2023 Scheduled Procedures Name Priority Associated Diagnoses Date/Ti [...] D LEVEL ONCE IN A LIFETIME-USE SMARTSET# [id number] Completed 08/02/2011, 04/24/2009, 06/25/2008, Additional history exists [...] Procedure Name Priority Date/Time Associated Diagnosis Comments COMPREHENSIVE METABOLIC PANEL STAT 02/21/2023 12:47 PM EST Small cell lung cancer (HCC) documented in this encounter Results * (ABNORMAL) COMPREHENSIVE METABOLIC PANEL (02/21/2023 12:47 PM EST) BUN 27(H) 6 - 20 mg/dL 02/21/2023 1:16 PM EST LABORATORY [facility] 56-02 Creatinine 1.1(H) 0.5 - 1.0 mg/dL 02/21/2023 1:16 PM [facility] 56 Estimated Glomerular Filtration Rate 55(L) >=60 mL/min 02/21/2023 1:16 PM [facility] 56 Comment:eGFR is calculated b ased on the CKD-EPI 2020 equation Sodium 136 135 - 146 mmol/L 02/21/2023 1:16 PM [facility] 56 Potassium 4.5 3.5 - 5.1 mmol/L 02/21/2023 1:16 PM [facility] 56 Chloride 99 98 - 107 mmol/L 02/21/2023 1:16 PM [facility] 56 CO2 25 22 - 32 mmol/L 02/21/2023 1:16 PM [facility] 56 Anion Gap 12 7 - 15 mmol/L 02/21/2023 1:16 PM [facility] 56 Glucose 81 70 - 120 mg/dL 02/21/2023 1:16 PM [facility] 56 Albumin 3.3(L) 3.8 - 5.0 g/dL 02/21/2023 1:16 PM [facility] 56 AST 16 10 - 35 U/L 02/21/2023 1:16 PM [facility] 56 Alkaline Phosphatase 165(H) 35 - 130 U/L 02/21/2023 1:16 PM [facility] 56 Bilirubin, Total 0.4 <=1.2 mg/dL 02/21/2023 1:16 PM [facility] 56 Calcium 8.9 8.4 - 10.2 mg/dL 02/21/2023 1:16 PM [facility] 56 Protein 6.6 6.0 - 8.3 g/dL 02/21/2023 1:16 PM [facility] 56 ALT 7(L) 10 - 35 U/L 02/21/2023 1:16 PM [facility] 56 Blood Venous blood specimen / Unknown Venipuncture / Unknown 02/21/2023 12:47 PM EST 02/21/2023 12:47 PM EST Héctor Rodriguez MD LAB BLOOD ORDERABLES LABORATORY [place] [address] [place], [place] [address] documented in this encounter Visit Diagnoses Diagnosis Small cell lung cancer (HCC) Malignant neoplasm of bronchus and lung, unspecified site documented in this encounter Advance Directives Healthcare Agents on File Name Relationship Healthcare Agent Relationshi p Communication Michael Cifuentes [place] Spouse Health Care Repr esentative (appointed verbally by patient or by statute hierarchy) Care Teams Software Project Lead Relationship Specialty Start Date End Date Hayes Maurer DO [address] [place] [address] PCP - General Family Medicine 04/04/19 documented as of this encounter
--- OUTSIDE RECORDS SUMMARY | 2023-02-27 12:53 | External Medical Summary | Summary of Care ---
Author Name Unknown Organization [facility] Address [address] [place] [address] Phone [phone] Care Team Providers Care Packager Hand Name Role Phone Hayes Muarer Primary Care Provider Reason for Visit * Reason Comments Chemotherapy C3D1 Carboplatin, Et oposide * Episode Based Medications (Routine) - Authorized Specialty Diagnoses / Procedures Referred By Contac t Referred To Contact Diagnoses Encounter for antineoplastic chemotherapy Small cell lung cancer (HCC) Procedures UT CARBOPLATIN INJECTION UT FOSAPREPITANT INJECTION UT ETOPOSIDE 10 MG INJ UT INJECTION, UDENYCA 0.5 MG Héctor Rodriguez MD [address] [facility] [place] [id number] [facility] [address] [address] Referral ID Status Reason Start Date Expiration Date V isits Requested Visits Authorized [id number] Authorized 12/30/2022 03/05/2099 [id number] Encounter Details Date Type Department Care Team (Latest Contact Info) Description 02/21/2023 1:30 PM EST Hem/Onc Treatment Hematology/Oncolog y Treatment, [address] [address] Helene, Chair 3 Hem Onc [address] [place] [id number] Small cell lung cancer (HCC)*; Encounter for [...] mRNA, LNP-s, No Pre serve, 2-Dose Series ([employer] 03/04/2021,07/22/2020,07/01/2020 Pneumococcal Conjugate Vacc, 13 Valent (Prevnar) [...] to patient who signed for return to child welfare social worker. documented in this encounter Plan of Treatment Upcoming Encounters Date Type Department Care Team (Late st Contact Info) Description 02/22/2023 2:30 PM EST Hem/Onc Treatment Hematology/[address], [address] [address] Helene, Chair 3 Hem Onc [address] [place] [address] 02/23/2023 2:30 PM EST Hem/Onc Treatment [facility]ematology/Oncology [facility], [place] [facility] [address] Helene, Chair 1 Hem Onc [address] [place] [address] 03/07/2023 1:30 PM EST Office Visit Urology, [facility] [address] [facility] [place] [address] Sahil Funk MD [address] [place] [address] [place] [address] 03/07/2023 2:40 PM EST Office Visit Podiatry [facility] 132 [facility] [place] [address] Juliana Vogt, DPM [facility] [place] [address] 03/09/2023 4:40 PM EST Office Visit Family Practice [facility] 132 [facility] [place] [address] Hayes Maurer DO 132 [facility] [place] [address] 03/14/2023 1:00 PM EST Laboratory Laboratory [facility] [address] [place] [address] [place], Lab [facility] [place] [address] 03/14/2023 2:00 PM EST Hem/Onc Treatment Hematology/Oncology Treatment, [place] [address] [place], [place] [address] Helene, Chair 5 Hem Onc [facility] [place] [address] 03/15/2023 1:15 PM EST Office Visit Hematology/Oncology [facility] [place] [address] [place] [address] Héctor Rodriguez MD [address] [place] [address] 03/15/2023 1:45 PM EST Hem/Onc Treatment Hematology/Oncology Treatment, [place] 200 [place] [address] 03/16/2023 2:00 PM EST Hem/Onc Treatment Hematology/Oncology Treatment, [place] 200 [place] [address] 05/18/2023 2:20 PM EDT Office Visit Nutrition & Weight Management, [facility] [address] [facility] [place] [address] Wili Leyva MD [address] [facility] [address] Scheduled Procedures Name Priority Associated [...] SMARTSET #1146) 08/09/2022 COVID-19 Vaccine ( - 2022- season) 2022 03/04/2021, 07/22/2020, 07/01/2020 [...] D LEVEL ONCE IN A LIFETIME-USE SMARTSET# 80723 Completed 08/02/2011, 04/24/2009, 06/25/2008, Additional history exists [...] - 4.80 K/uL 02/21/2023 2:10 PM EST [facility] 56 Absolute Monocytes 0.52 0.00 - 1.10 K/uL 02/21/2023 2:10 PM EST [facility] 56 nRBCs 02/21/2023 2:10 PM EST [facility] 56 Blood Venous blood specimen / Unknown Venipuncture / Unknown 02/21/2023 1:42 PM EST 02/21/2023 1:45 PM EST Héctor Rodriguez MD LAB BLOOD ORDERABLES [address] [place] [address] * DIFFERENTIAL, AUTOMATED (02/21/2023 1:42 PM EST) Blood Venous blood specimen / Unknown Venipuncture / Unknown 02/21/2023 1:42 PM EST 02/21/2023 1:45 PM EST Héctor Rodriguez MD LAB BLOOD ORDERABLES [facility] [address] [place] [address] * (ABNORMAL) CBC (02/21/2023 1:42 PM EST) WBC 17.37(H) 4.00 - 10.80 K/uL 02/21/2023 2:10 PM EST [facility] 56 RBC 3.52 3.85 - 5.15 M/uL 02/21/2023 2:10 PM EST [facility] 56 HGB 10.2(L) 12.0 - 15.3 g/dL 02/21/2023 2:10 PM EST [facility] 56 HCT 32.5(L) 36.0 - 45.2 % 02/21/2023 2:10 PM EST [facility] 56 MCV 92.3 81.5 - 97.5 fL 02/21/2023 2:10 PM EST [facility] 56 MCH 29.0 27.0 - 34.0 pg 02/21/2023 2:10 PM EST [facility] 56- MCHC 31.4 32.0 - 36.0 g/dL 02/21/2023 2:10 PM EST [facility] 56- RDW 14.6 11.5 - 15.5 % 02/21/2023 2:10 PM EST [facility] 56- PLT 218 140 - 400 K/uL 02/21/2023 2:10 PM EST [facility] 56- MPV 9.9 6.6 - 11.1 fL 02/21/2023 2:10 PM EST [facility] 56- Blood Venous blood specimen / Unknown Venipuncture / Unknown 02/21/2023 1:42 PM EST 02/21/2023 1:45 PM EST Héctor Rodriguez MD LAB BLOOD ORDERABLES [facility] 56- [address] [place] [address] documented in this encounter Visit Diagnoses Diagnosis Small cell lung cancer (HCC)- Primary Malignant neoplasm of bronchus and lung, unspecified site Encounter for antineoplastic chemotherapy Drug-related hair loss Other alopecia documented in this encounter Administered Medications Active Administered Medications - up to 3 most recent administrations Medication Order MAR Action Action Date Dose Rate Site diphenhydrAMINE (Benadryl) inj 50 mg 50 mg, IV Push, ONCE PRN Other, Hypersensitivity Reaction, Starting on Mon02/21/23 at 1427, Until Mon02/22/23 at 1426, For 24 hours EPINEPHrine 1 MG/ML inj 0.3 mg 0.3 mg, Intramuscular, ONCE PRN Other, Hypersensitivity Reaction or Anaphylaxis, Starting on Mon02/21/23 at 1427, Until Mon02/22/23 at 1426, For 24 hours hEParin 100 UNIT/ML Lock Flush inj 500 Units 500 Units (5 mL), IV Lock, PRN Other, IV Flush, Starting on Mon02/21/23 at 1427, Until Mon02/22/23 at 1426, For 24 hours, Do not flush if lock, PICC, or central line not in place; IV infusing or unable to flush. Given 02/21/2023 4:51 PM EST 500 Units Hydrocortisone Sod Suc (PF) (Solu-Cortef) inj 100 mg 100 mg, IV Push, ONCE PRN Other, Hypersensitivity Reaction, Starting on Mon02/21/23 at 1427, Until Mon02/22/23 at 1426, For 24 hours LORAzepam (Ativan) tab 0.5 mg 0.5 mg, Oral, ONCE PRN Anxiety, Nausea, Starting on Mon02/21/23 at 1530, Until Discontinued NSS infusion Intravenous, at 50 mL/hr, PRN, Starting on Mon02/21/23 at 1530, Until Discontinued, KVO Start Infusion 02/21/2023 1:42 PM EST 50 mL/hr oxygen GAS Inhalation, OXYGEN, First dose on Mon02/21/23 at 1600, Until Discontinued, Device/Managed by: Low [...] Flush, Starting on Mon02/21/23 at 1427, Until Mon02/22/23 at 1426, For 24 hours, Do not flush if lock, PICC, or central line not in place; IV infusing or unable to flush. Given 02/21/2023 4:51 PM EST 10 mL Inactive Administered Medications [...] 2:30 PM EST 150 mg 500 mL/hr documented in this encounter Advance Directives Healthcare Agents on File Name Relationship Healthcare Agent Relationshi p Communication Michael Cifuentes [facility] Health Care Repr esentative (appointed verbally by patient or by statute hierarchy) Care Teams Packager Hand Relationship Specialty Start Date End Date Hayes Maurer DO [address] [place] [address] PCP - General Family Medicine 04/04/19 documented as of this encounter
--- OUTSIDE RECORDS SUMMARY | 2023-02-27 12:53 | External Medical Summary | Summary of Care ---
Author Name Unknown Organization [facility] Address [address] [place] [address] Phone [phone] Care Team Providers Care Bar Manager Name Role Phone Hayes Maurer DO Primary Care Provider Reason for Visit * Reason Onset Date Comments In Classroom Tutor Documentation 02/08/2023 Encounter Details Date Type Department Care Team (Late st Contact Info) Description 02/08/2023 Telephone Hematology Oncology, [place] [address] [place] [address] Jatin Padgett, TRACI In Classroom Tutor Documentation Allergies Active Allergy Reactions Criticality Noted [...] mRNA, LNP-s, No Pre serve, 2-Dose Series ([employer]) 03/04/2021,07/22/2020,07/01/2020 Pneumococcal Conjugate Vacc, 13 Valent (Prevnar) [...] Encounter - Jatin Padgett MSW - 02/08/2023 2:35 PM EST SW left a message for Mrs. Funk asking her to call back at her earliest convenience to discuss any needs she has within the home and to review the [employer] financial assistance program. JAVIER left his name, contact number, and office hours for the remainder of the day. Services provided include: Care Coordination Lisa/Financial Assistance Giselle Molina, BILLIARD TABLE ASSEMBLER, JAVA PERFORMANCE ENGINEER Negotiator Sales Hematology/Oncology [place] Office: [phone] [place] Office: [phone] E-mail: [email or web address] documented in this encounter Plan of Treatment Upcoming Encounters Date Type Department Care Team (Late st Contact Info) Description 02/21/2023 12:30 PM EST Laboratory Laboratory [address] [place] [id number] [place], Lab [facility] 200 [facility] [place], [place] [address] 02/21/2023 1:30 PM EST Hem/Onc Treatment Hematology/Oncology Treatment, [address], [place] [address] Helene, Chair 3 Hem Onc [facility] 200 [facility] [place], [place] [address] 02/22/2023 2:30 PM EST Hem/Onc Treatment Hematology/Oncology Treatment, [address], [place] [address] Helene, Chair 3 Hem Onc [place] 200 [facility] [place], [place] [address] 02/23/2023 2:30 PM EST Hem/Onc Treatment Hematology/Oncology Treatment, [address], [place] [address] Helene, Chair 1 Hem Onc [place] 200 [facility] [place], [place] [address] 03/07/2023 1:30 PM EST Office Visit Urology, [facility] [address] [facility] [place] [address] Sahil Funk MD [address] [place] [address] [place] [address] 03/07/2023 2:40 PM EST Office Visit Podiatry [facility] 132 [place] [address] Juliana Vogt, CHIPM [address] [facility] [place] [address] 03/09/2023 4:40 PM EST Office Visit Family Practice [facility] 132 [place] [address] Hayes Maurer DO 132 [place] [address] 03/14/2023 1:00 PM EST Laboratory Laboratory [facility] [address] [place] [phone] [place], Lab [facility] 200 [facility] [place] [address] 03/14/2023 2:00 PM EST [facility] 200 [facility], [place] [address] Helene, Chair 1 Hem Onc [facility] [address] [place] [address] 03/15/2023 1:15 PM EST Office Visit Hematology/Oncology [facility] [place] [address] [place] [address] Héctor Rodriguez MD [address] [place] [address] 03/15/2023 1:45 PM EST Hem/Onc Treatment Hematology/Oncology Treatment, [place] 200 [facility] [address] 03/16/2023 2:00 PM EST Hem/Onc Treatment Hematology/Oncology Treatment, [place] [address] [place] [address] 05/15/2023 3:00 PM EDT Office Visit Nutrition & Weight Management, [facility] [address] [place] [address] Preethi Fletcher PA-C [address] [place] [address] Scheduled Procedures Name Priority Associated Diagnoses Date/Ti [...] D LEVEL ONCE IN A LIFETIME-USE SMARTSET# [id number] Completed 08/02/2011, 04/24/2009, 06/25/2008, Additional history exists [...] Healthcare Agent Relationshi p Communication Michael Cifuentes [place] Spouse Health Care Repr esentative (appointed verbally by patient or by statute hierarchy) Care Teams Bar Manager Relationship Specialty Start Date End Date Hayes Maurer DO [address] [place] [address] PCP - General Family Medicine 04/04/19 documented as of this encounter
--- OUTSIDE RECORDS SUMMARY | 2023-02-27 12:53 | External Medical Summary | Summary of Care ---
Author Name Unknown Organization [facility] Address [address] [place] [address] Phone [phone] Care Team Providers Care Robotic Weld Technician Name Role Phone Hayes aMurer DO Primary Care Provider Reason for Visit * Reason Onset Date Comments Drug Room Operator Documentation 02/07/2023 Encounter Details Date Type Department Care Team (Late st Contact Info) Description 02/07/2023 Telephone Hematology Oncology, [place] [address] [place] [address] [place], [place] [id number] Jatin Padgett MSW Drug Room Operator Documentation Allergies Active Allergy Reactions Criticality [...] mRNA, LNP-s, No Pre serve, 2-Dose Series ([employer]) 03/04/2021,07/22/2020,07/01/2020 Pneumococcal Conjugate Vacc, 13 Valent (Prevnar) [...] Telephone Encounter - Jatin Padgett MSW - 02/07/2023 2:41 PM EST SW received referral from HEM/ONC Ne Narayan regarding possible patient needs. SW will contact the patient to assess SDOH. Services provided include: Care Coordination Community Resource Planning Follow-up Calls and Visits Nutrition Assistance SDOH Giselle Gayle, BUILD ENGINEER, GLOBE CLEANER Wearing Apparel Presser Hematology/Oncology [place] Office: [phone] [place] Office: [phone] E-mail: [email or web address] documented in this encounter Plan of Treatment Upcoming Encounters Date Type Department Care Team (Late st Contact Info) Description 02/21/2023 12:30 PM EST Laboratory Laboratory [facility] [place] [address] [place] [phone] [place], Lab [facility] 200 [facility] [place] [address] 02/21/2023 1:30 PM EST Hem/Onc Treatment Hematology/Oncology Treatment, [place] 200 [facility] [address] Helene, Chair 3 Hem Onc [facility] [address] [place] [address] 02/22/2023 2:30 PM EST Hem/Onc Treatment Hematology/Oncology Treatment, [place] 200 [facility] [address] Helene, Chair 3 Hem Onc [place] 200 [facility] [place] [address] 02/23/2023 2:30 PM EST Hem/Onc Treatment Hematology/Oncology Treatment, [place] 200 [facility] [address] Helene, Chair 1 Hem Onc [place] 200 [facility] [place] [address] 03/07/2023 1:30 PM EST Office Visit Urology, [facility] 132 [facility] [place] [phone] Sahil Funk MD [address] [place] [address] [place] [address] 03/07/2023 2:40 PM EST Office Visit Podiatry [facility] [address] [place] [address] Juliana Vogt DPM [address] [facility] [address] 03/09/2023 4:40 PM EST Office Visit Family Practice [facility] [address] [facility] [place] [address] Hayes Maurer DO [address] [facility] [place] [address] 03/14/2023 1:00 PM EST Laboratory Laboratory [facility] [address] [place] [phone] [place], Lab [facility] [address] [place], [place] [address] 03/14/2023 2:00 PM EST Hem/Onc Treatment Hematology/Oncology Treatment, [place] 200 [facility], [place] [address] Helene, Chair 1 Hem Onc [facility] [address] [place], [place] [address] 03/15/2023 1:15 PM EST Office Visit Hematology/Oncology [facility] [place] [address] [place], [place] [address] Héctor Rodriguez MD [address] [place], [place] [address] 03/15/2023 1:45 PM EST Hem/Onc Treatment Hematology/Oncology Treatment, [place] 200 [facility], [place] [address] 03/16/2023 2:00 PM EST Hem/Onc Treatment Hematology/Oncology Treatment, [place] [address] [place] [address] 05/15/2023 3:00 PM EDT Office Visit Nutrition & Weight Management, [facility] [address] [place] [address] Preethi Fletcher PA-C [address] [place] [address] Scheduled Procedures Name Priority Associated Diagnoses Date/Ti [...] FOR COPD 07/20/2023 07/19/2022 TSH 12/28/2023 12/27/2022, 0803/2022, 10/06/2022, Additional history exists Lipid Panel 03/15/2027 03/15/2022, 02/05, 10/01/2019, Additional history exists COLONOSCOPY-EVERY 5 YRS AGES 18-100 10/18/2027 10/17/2022, 10/17/2022, 12/26/2017, Additional history exists VITAMIN D LEVEL ONCE IN A LIFETIME-USE SMARTSET# [id number] Completed 08/02/2011, 04/24/2009, 06/25/2008, Additional history exists [...] Healthcare Agent Relationshi p Communication Michael Cifuentes [place] Spouse Health Care Repr esentative (appointed verbally by patient or by statute hierarchy) Care Teams Robotic Weld Technician Relationship Specialty Start Date End Date Hayes Maurer DO [address] [place] [address] PCP - General Family Medicine 04/04/19 documented as of this encounter
--- OUTSIDE RECORDS SUMMARY | 2023-02-27 12:53 | External Medical Summary | Summary of Care ---
Author Name Unknown Organization [facility] Address [address] [place] [address] Phone [phone] Care Team Providers Care Marketing Traffic Coordinator Name Role Phone Hayes Maurer Primary Care Provider Reason for Visit * Reason Comments Treatment * Episode Based Medications (Routine) - Authorized Specialty Diagnoses / Procedures Referred By Johanny garcia Referred To Contact Diagnoses Encounter for antineoplastic chemotherapy Small cell lung cancer (HCC) Procedures [place] CARBOPLATIN INJECTION [place] FOSAPREPITANT INJECTION [place] ETOPOSIDE 10 MG INJ MN INJECTION, UDENYCA 0.5 MG Héctor Rodriguez MD 200 [facility] [place] [address] Anc Hem/Onc [facility] Helene [address] [place] [id number] Referral ID Status Reason Start Date Expiration Date V isits Requested Visits Authorized [id number] Authorized 12/30/2022 03/05/2099 999 [id number] Encounter Details Date Type Department Care Team (Latest Contact Info) Description 02/01/2023 1:30 PM EST Hem/Onc Treatment Hematology/Oncolog y Treatment, [address] [address] Helene, Chair 7 Hem Onc [address] [address] Encounter for antineoplastic chemotherapy*; Small cell lung cancer (HCC) Allergies Active Allergy Reactions Criticality Noted Date Comments Morphine 03/26/1997 Shock, dyspnea Other reaction(s): shock, dspnea Neomycin 04/07/2013 documented as of this encounter (statuses as of 02/01/2023) Medications Medication Sig Dispensed Refills Start Date [...] as of this encounter (statuses as of 02/01/2023) Active Problems Problem Noted Date Diagnosed Date [...] as of this encounter (statuses as of 02/01/2023) Resolved Problems Problem Noted Date Diagnosed Date [...] as of this encounter (statuses as of 02/01/2023) Immunizations Name Administration Dates Next Due COVID-19 [...] Sign Reading Time Taken Comments Blood Pressure 114/75 02/01/2023 1:34 PM EST Pulse 84 02/01/2023 1:34 PM EST Temperature 36.3 C (97.3 F) 02/01/2023 1:34 PM ES T Respiratory Rate 18 02/01/2023 1:34 PM EST Oxygen Saturation 98% 02/01/2023 1:34 PM EST Inhaled Oxygen Concentration - - Weight - - Height - - Body Mass Index - - documented in this encounter Nursing Notes * Damaris Pepe RN - 02/01/2023 3:01 PM EST Safety and Risk for Injury Patient will remain free from injury. Ensure appropriate safety devices are available. Provide and maintain safe environment. Functional status at today's visit: Fully active, able to carry on all pre-disease performance without restriction The drug name, dose, infusion volume, rate and route of administration, expiration date and time, appearance and physical integrity of the drug and rate set on the pump and sequencing of drug administration (as applicable) were verified by me and second sign-in RN. Patient was assessed for symptoms or adverse side effects during treatment. Goals: Patient here for day 2 of etoposide. Possible barriers to meeting goals: IV pole Stability of the patient: Moderately stable - low risk of patient condition declining or worsening Summary regarding today's goals: Met: Patient received treatment without any issues. documented in this encounter Plan of Treatment Upcoming Encounters Date Type Department Care Team (Late st Contact Info) Description 02/02/2023 1:30 PM EST Hem/Onc Treatment Hematology/Oncology Treatment, [place] 200 [facility] [place] [address] Helene, Chair 8 Hem Onc Scenery [address] [place] [address] 02/08/2023 1:15 PM EST Imaging [facility] 2nd Floor Cardiology, [place] [address] [place] [address] 02/14/2023 3:00 PM EST Office Visit Neurology [facility] [place] [address] [place] [address] Sandhya Hanley MD [address] [place] [address] 02/21/2023 9:00 AM EST Laboratory Laboratory [facility] [place] [address] [place] [phone] Helene, Lab Scenery [address] [place] [address] 02/21/2023 9:30 AM EST Office Visit Hematology/Oncology [facility] [place] [address] [place] [address] Jade Gaytan CRNP [address] [place], [place] [address] [address] 02/21/2023 10:00 AM EST Hem/Onc Treatment Hematology/Oncology Treatment, [place] 200 [facility] [place] [address] Helene, Chair 3 Hem Onc Scen[address] [place] [address] 02/22/2023 2:30 PM EST Hem/Onc Treatment Hematology/Oncology Treatment, [place] 200 [facility] [place] [address] Helene, Chair 3 Hem Onc Scenery [address] [place] [address] 02/23/2023 2:30 PM EST Hem/Onc Treatment Hematology/Oncology Treatment, [place] [address] [place] [address] Park, Chair 1 Hem Onc Scenery [address] [place] [address] 03/07/2023 1:30 PM EST Office Visit Urology, [facility] [place] [address] Sahil Funk MD [address] [place] [address] [place] [address] 03/07/2023 2:40 PM EST Office Visit Podiatry [facility] 132 [facility] [place] [address] Juliana Vogt, [place] [address] [place] [address] 03/09/2023 4:40 PM EST Office Visit Family Practice [facility] 132 [facility] [place] [address] Hayes Maurer DO [address] [place] [address] 05/15/2023 3:00 PM EDT Office Visit Nutrition & Weight Management, [facility] 132 [facility] [place] [address] Preethi Fletcher PA-C [address] [place] [address] Scheduled Procedures Name Priority Associated Diagnoses Date/Ti [...] D LEVEL ONCE IN A LIFETIME-USE SMARTSET# [id number] Completed 08/02/2011, 04/24/2009, 06/25/2008, Additional history exists [...] ONCE PRN Other, Hypersensitivity Reaction, Starting on Mon02/01/23 at 1329, Until Mon02/02/23 at 1328, For 24 hours EPINEPHrine 1 MG/ML inj 0.3 mg 0.3 mg, Intramuscular, ONCE PRN Other, Hypersensitivity Reaction or Anaphylaxis, Starting on Mon02/01/23 at 1329, Until Kendy 02/02/23 at 1328, For 24 hours Hydrocortisone Sod Suc (PF) (Solu-Cortef) inj 100 mg 100 mg, IV Push, ONCE PRN Other, Hypersensitivity Reaction, Starting on Mon02/01/23 at 1329, Until Kendy 02/02/23 at 1328, For 24 hours NSS infusion Intravenous, at 50 mL/hr, PRN, Starting on Mon02/01/23 at 1430, Until Discontinued, KVO Start Infusion 02/01/2023 1:46 PM EST 50 mL/hr oxygen GAS Inhalation, OXYGEN, First dose on Mon02/01/23 at 1600, Until Discontinued, Device/Managed by: Low [...] than 85% and when escalating delivery device. Inactive Administered Medications - up to 3 most recent administrations Medication Order MAR Action Action Date Dose Rate Site etoposide (VEPESID) 140 mg in NSS 500 mL infusion 140 mg (100 mg/m2 1.4 m2 Treatment Plan BSA from Recorded weight), IV Piggyback, ONCE, 1 dose, On Mon02/01/23 at 1500, Administer over 60 Minutes, Recommended concentration is less than or equal to 0.4 mg/mL. If concentration is greater than 0.4 mg/mL recommend to administer through 0.22 micron low protein binding filter. Start Infusion 02/01/2023 2:03 PM EST 140 mg 500 mL/hr ondansetron (Zofran) inj 8 mg 8 mg, IV Push, ONCE, On Mon02/01/23 at 1400, For 1 dose Given 02/01/2023 1:48 PM EST 8 mg documented in this encounter Advance Directives Healthcare Agents on File Name Relationship Healthcare Agent Relationshi p Communication Michael Funk Spouse Health Care Repr esentative (appointed verbally by patient or by statute hierarchy) Care Teams Marketing Traffic Coordinator Relationship Specialty Start Date End Date Hayes Maurer DO [address] [place] [address] PCP - General Family Medicine 04/04/19 documented as of this encounter
--- OUTSIDE RECORDS SUMMARY | 2023-02-27 12:53 | External Medical Summary | Summary of Care ---
Author Name Unknown Organization [facility] Address [address] [place] [address] Phone [phone] Care Team Providers Care Cad Application Support Specialist Name Role Phone Hayes Maurer DO Primary Care Provider Reason for Visit * Reason Onset Date Comments Drywall Carrier Documentation 02/09/2023 Encounter Details Date Type Department Care Team (Late st Contact Info) Description 02/09/2023 Telephone Hematology Oncology, [place] [address] [place] [address] Jatin Padgett, TRACI Drywall Carrier Documentation Allergies Active Allergy Reactions Criticality Noted Date Comments Morphine 03/26/1997 Shock, dyspnea Other reaction(s): shock, dspnea Neomycin 04/07/2013 documented as of this encounter (statuses as of 02/09/2023) Medications Medication Sig Dispensed Refills Start Date [...] as of this encounter (statuses as of 02/09/2023) Active Problems Problem Noted Date Diagnosed Date [...] as of this encounter (statuses as of 02/09/2023) Resolved Problems Problem Noted Date Diagnosed Date [...] as of this encounter (statuses as of 02/09/2023) Immunizations Name Administration Dates Next Due COVID-19 mRNA, LNP-s, No Pre serve, 2-Dose Series ([employer]) 03/04/2021,07/22/2020,07/01/2020 Pneumococcal Conjugate Vacc, 13 Valent (Prevnar) [...] Telephone Encounter - Jatin Padgett MSW - 02/09/2023 11:12 AM EST SW researched the available meal programs on the [employer] site within the patient's zip code. Unfortunately there were no programs that she would be eligible for, given her specific requests. Services provided include: Care Coordination Community Resource Planning Nutrition Assistance Giselle Gayle, BELT OPERATOR, OPHTHALMOLOGY TECHNICIAN Food And Beverage Outlets Manager Hematology/Oncology [place] Office: [phone] [place] Office: [phone] E-mail: [email or web address] documented in this encounter Plan of Treatment Upcoming Encounters Date Type Department Care Team (Late st Contact Info) Description 02/21/2023 12:30 PM EST Laboratory Laboratory [facility] [place] [address] [place] [phone] Helene, Lab Scenery [address] [place] [address] 02/21/2023 1:30 PM EST Hem/Onc Treatment Hematology/Oncology Treatment, [place] [facility] [address] Helene, Chair 3 Hem Onc Scenery [address] [place] [address] 02/22/2023 2:30 PM EST Hem/Onc Treatment Hematology/Oncology Treatment, [place] [facility] [address] Helene, Chair 3 Hem Onc Scenery [address] [place] [address] 02/23/2023 2:30 PM EST Hem/Onc Treatment Hematology/Oncology Treatment, [place] [facility] [address] Helene, Chair 1 Hem Onc Scenery [address] [place] [address] 03/07/2023 1:30 PM EST Office Visit Urology, [facility] 132 [facility] [place] [phone] Sahil Funk MD [address] [place] [address] [place] [address] 03/07/2023 2:40 PM EST Office Visit Podiatry [facility] [address] [place] [address] Juliana Vogt DPM [address] [place] [place] [address] 03/09/2023 4:40 PM EST Office Visit Family Practice [facility] [address] [place] [address] Hayes Maurer DO [address] [facility] [place] [address] 03/14/2023 1:00 PM EST Laboratory Laboratory [facility] [address] [place] [phone] Helene, Lab [facility] 200 [facility] [place], [place] [address] 03/14/2023 2:00 PM EST Hem/Onc Treatment Hematology/Oncology Treatment, [place] 200 [facility], [place] [address] Helene, Chair [address] [place], [place] [address] 03/15/2023 1:15 PM EST Office Visit Hematology/Oncology [facility] [place] 200 [facility] [place], [place] [address] Héctor Rodriguez MD [address] [place] [address] 03/15/2023 1:45 PM EST Hem/Onc Treatment Hematology/Oncology Treatment, [place] 200 [facility], [place] [address] 03/16/2023 2:00 PM EST Hem/Onc Treatment Hematology/Oncology Treatment, [place] [address] [place] [address] 05/15/2023 3:00 PM EDT Office Visit Nutrition & Weight Management, [facility] [address] [place] [address] Preethi Fletcher PA-C [address] [place] [address] Scheduled Procedures Name Priority Associated Diagnoses Date/Ti [...] D LEVEL ONCE IN A LIFETIME-USE SMARTSET# [id number] Completed 08/02/2011, 04/24/2009, 06/25/2008, Additional history exists [...] Relationship Healthcare Agent Relationshi p Communication Michael Vane Jewell Spouse Health Care Repr esentative (appointed verbally by patient or by statute hierarchy) Care Teams Cad Application Support Specialist Relationship Specialty Start Date End Date Hayes Maurer DO [address] [place] [address] PCP - General Family Medicine 04/04/19 documented as of this encounter
--- OUTSIDE RECORDS SUMMARY | 2023-02-27 12:53 | External Medical Summary ---
Author Name Unknown Address Unknown Organization [facility] [address] [place] [address] Laboratory Report Ordering Provider Test Date Status PARISH JAIME 02/21/2023 12:47:39 Final Observation Date Value Abnormality Reference (Units ) Status BUN 02/21/2023 12:47:39 27 Above high normal 6-20 (mg/dL) Final Creatinine 02/21/2023 12:47:39 1.1 Above high normal 0.5-1.0 (mg/dL) Final Glomerular filtration rate/1.73 sq M.predicted [Volume Rate/Area] in Serum, Plasma or Blood by Creatinine-based formula (CKD-EPI) 02/21/2023 12:47:39 55 Below low normal >=60 (mL/min) Final eGFR is calculated based on the CKD-EPI 2020 equation SODIUM 02/21/2023 12:47:39 136 135-146 (m mol/L) Final Potassium 02/21/2023 12:47:39 4.5 3.5-5.1 (m mol/L) Final Cl 02/21/2023 12:47:39 99 98-107 (mm ol/L) Final CO2 02/21/2023 12:47:39 25 22-32 (mmo l/L) Final Anion gap 02/21/2023 12:47:39 12 7-15 (mmol /L) Final Glucose 02/21/2023 12:47:39 81 70-120 (mg /dL) Final Albumin 02/21/2023 12:47:39 3.3 Below low normal 3.8 -5.0 (g/dL) Final AST (Aspartate aminotransferase) 02/21/2023 12:47:39 16 10-35 (U/L) Fin al Alk Phos 02/21/2023 12:47:39 165 Above high normal 35 -130 (U/L) Final Bilirubin, Total 02/21/2023 12:47:39 0.4 <=1 .2 (mg/dL) Final Calcium 02/21/2023 12:47:39 8.9 8.4-10.2 ( mg/dL) Final Protein 02/21/2023 12:47:39 6.6 6.0-8.3 (g /dL) Final ALT (Alanine aminotransferase) 02/21/2023 12:47:39 7 Below low normal 10-35 (U/L) Final Performing Location [facility] [address] [place] [address]
--- OUTSIDE RECORDS SUMMARY | 2023-02-27 12:53 | External Medical Summary | Summary of Care ---
Author Name Unknown Organization [facility] Address [address] [place] [address] Phone [phone] Care Team Providers Care Corporate Travel Consultant Name Role Phone Hayes Maurer DO Primary Care Provider Reason for Visit * Reason Onset Date Comments Wood Science Professor Documentation 02/09/2023 Returning Call 02/09/2023 Encounter Details Date Type Department Care Team (Late st Contact Info) Description 02/09/2023 Telephone Hematology Oncology, [place] [address] [place] [address] Jatin Padgett MSW Wood Science Professor Documentation; Returning Call Allergies Active Allergy Reactions Criticality Noted Date [...] mRNA, LNP-s, No Pre serve, 2-Dose Series ([employer]) 03/04/2021,07/22/2020,07/01/2020 Hepatitis B Vaccine 03/26/1997 Pneumococcal Conjugate [...] encounter Miscellaneous Notes * Telephone Encounter - Mirna Boston, JADYN - 02/09/2023 1:40 PM EST Pt is returning missed call and asking for a call back * Telephone Encounter - Jatin Padgett MSW - 02/09/2023 11:12 AM EST SW researched the available meal programs on the [facility] site within the patient's zip code. Unfortunately there were no programs that she would be eligible for, given her specific requests. Services provided include: Care Coordination Community Resource Planning Nutrition Assistance Jatin Padgett, Giselle, FISHER EEL, RUBBER MOLD MAKER Therapy Coordinator Hematology/Oncology [place] Office: [phone] [place] Office: [phone] E-mail: [email or web address] documented in this encounter Plan of Treatment Upcoming Encounters Date Type Department Care Team (Late st Contact Info) Description 02/21/2023 12:30 PM EST Laboratory Laboratory [address] [place], [place] [phone] Helene, Lab [facility] 200 [facility] [place] [address] 02/21/2023 1:30 PM EST Hem/Onc Treatment Hematology/Oncology [address], [address] [address] Helene, Chair 3 Hem Onc [facility] 200 [facility] [place] [address] 02/22/2023 2:30 PM EST Hem/Onc Treatment Hematology/Oncology Treatment, [address] [address] Helene, Chair 3 Hem Onc [facility] 200 [facility] [place] [address] 02/23/2023 2:30 PM EST Hem/Onc Treatment Hematology/Oncology Treatment, [address] [address] Helene, Chair 1 Hem Onc Scenery [address] [place] [address] 03/07/2023 1:30 PM EST Office Visit Urology, [facility] [address] [facility] [place] [address] Sahil Funk MD [address] [place] [address] [place] [address] 03/07/2023 2:40 PM EST Office Visit Podiatry [facility] [place] [address] Juliana Vogt DPM [facility] [address] 03/09/2023 4:40 PM EST Office Visit Family Practice [facility] [place] [address] Hayes Maurer DO [address] [facility] [address] 03/14/2023 1:00 PM EST Laboratory Laboratory [facility] [place] [address] [place] [phone] Helene, Lab [facility] [address] [place] [address] 03/14/2023 2:00 PM EST Hem/Onc Treatment Hematology/Oncology Treatment, [place] 200 [facility] [address] Helene, Chair 1 Hem Onc Scenery [address] [place] [address] 03/15/2023 1:15 PM EST Office Visit Hematology/[facility] Helene [place] [address] [place] [address] Héctor Rodriguez MD 200 [place] [address] 03/15/2023 1:45 PM EST Hem/Onc Treatment Hematology/Oncology Treatment, [place] 200 [facility], [place] [address] 03/16/2023 2:00 PM EST Hem/Onc Treatment Hematology/Oncology Treatment, [place] 200 [facility], [place] [address] 05/15/2023 3:00 PM EDT Office Visit Nutrition & Weight Management, [facility] [address] [place] [address] Preethi Fletcher PA-C [address] [place] [address] Scheduled Procedures Name Priority Associated Diagnoses Date/Ti [...] FOR COPD 07/20/2023 07/19/2022 TSH 12/28/2023 12/27/2022, 08/03/2022, 10/06/2022, Additional history exists Lipid Panel 03/15/2027 03/15/2022, 02/05, 10/01/2019, Additional history exists COLONOSCOPY-EVERY 5 YRS AGES 18-100 10/18/2027 10/17/2022, 10/17/2022, 12/26/2017, Additional history exists VITAMIN D LEVEL ONCE IN A LIFETIME-USE SMARTSET# [id number] Completed 08/02/2011, 04/24/2009, 06/25/2008, Additional history exists [...] patient or by statute hierarchy) Care Teams Corporate Travel Consultant Relationship Specialty Start Date End Date Hayes Maurer DO [address] [place] [address] PCP - General Family Medicine 04/04/19 documented as of this encounter
--- OUTSIDE RECORDS SUMMARY | 2023-02-27 12:53 | External Medical Summary | Summary of Care ---
Author Name Unknown Organization [facility] Address [address] [place] [address] Phone [phone] Care Team Providers Care Group Managing Director Name Role Phone Hayes Maurer DO Primary Care Provider Reason for Visit * Reason Onset Date Comments Order Request 02/22/2023 Encounter Details Date Type Department Care Team (Late st Contact Info) Description 02/22/2023 Telephone Family Practice [facility] [address] [place] [address] Hayes Maurer DO [address] [place] [address] Order Request Allergies Active Allergy Reactions Criticality [...] order with last OV note to [facility] # [phone] * Telephone Encounter - Mirella Ulloa OSA [...] Number, if applicable: Unknown Call Back Number: [phone]. Please let her know if insurance will [...] 2:30 PM EST Hem/Onc Treatment Hematology/Oncology Treatment, [place] 200 [facility] [address] Helene, Chair 3 Hem Onc [facility] [place] [address] 02/23/2023 2:30 PM EST Hem/Onc Treatment Hematology/Oncology Treatment, [place] 200 [facility] [place] [address] Helene, Chair 1 Hem Onc Scen[address] [place] [address] 03/07/2023 1:30 PM EST Office Visit Urology, [facility] [address] [facility] [place] [address] Sahil Funk MD [address] [place] [address] [place] [address] 03/07/2023 2:40 PM EST Office Visit Podiatry [facility] [address] [place] [address] Juliana Vogt DPM [facility] [place] [address] 03/09/2023 4:40 PM EST Office Visit Family Practice [facility] [address] [facility] [place] [address] Hayes Maurer DO [facility] [place] [address] 03/14/2023 1:00 PM EST Laboratory Laboratory [facility] [place] [address] [place] [phone] Helene, Lab Scenery 200 [facility] [place] [address] 03/14/2023 2:00 PM EST Hem[facility] [address] [place], [place] [address] Helene, Chair 5 Hem Onc Scenery [address] [place] [address] 03/15/2023 1:15 PM EST Office Visit Hematology/Oncology [facility] [place] [address] [place] [address] Héctor Rodriguez MD [address] [place] [address] 03/15/2023 1:45 PM EST Hem/Onc Treatment Hematology/Oncology Treatment, [place] 200 [facility] [place] [address] 03/16/2023 2:00 PM EST Hem/Onc Treatment Hematology/Oncology Treatment, [place] 200 [facility] [place] [address] 05/18/2023 2:20 PM EDT Office Visit Nutrition & Weight Management, [facility] 132 [facility] [place] [address] Wili Leyva MD [address] [facility] [place] [phone] Scheduled Procedures Name [...] D LEVEL ONCE IN A LIFETIME-USE SMARTSET# [id number] Completed 08/02/2011, 04/24/2009, 06/25/2008, Additional history exists [...] patient or by statute hierarchy) Care Teams Group Managing Director Relationship Specialty Start Date End Date Hayes Maurer DO 132 [place] [address] PCP - General Family Medicine 04/04/19 documented as of this encounter
--- OUTSIDE RECORDS SUMMARY | 2023-02-27 12:53 | External Medical Summary | Summary of Care ---
Author Name Unknown Organization [facility] Address [address] [place] [address] Phone [phone] Care Team Providers Care Charcoal Kiln Burner Name Role Phone Hayes Maurer Primary Care Provider Reason for Visit * Reason Comments Chemotherapy Etoposide D3C2 * Episode Based Medications (Routine) - Authorized Specialty Diagnoses / Procedures Referred By Johanny t Referred To Contact Diagnoses Encounter for antineoplastic chemotherapy Small cell lung cancer (HCC) Procedures DE CARBOPLATIN INJECTION DE FOSAPREPITANT INJECTION DE ETOPOSIDE 10 MG INJ DE INJECTION, UDENYCA 0.5 MG Héctor Rodriguez MD 200 [facility] [place] [address] Anc Hem/Onc [address] [address] Referral ID Status Reason Start Date Expiration Date V isits Requested Visits Authorized [id number] Authorized 12/30/2022 03/05/[phone] Encounter Details Date Type Department Care Team (Latest Contact Info) Description 02/02/2023 1:30 PM EST Hem/Onc Treatment Hematology/Oncolog y Treatment, [address] [address] Helene, Chair 8 Hem Onc [address] [address] Encounter for antineoplastic chemotherapy*; Small cell lung cancer (HCC) Allergies Active Allergy Reactions Criticality Noted Date Comments Morphine 03/26/1997 Shock, dyspnea Other reaction(s): shock, dspnea Neomycin 04/07/2013 documented as of this encounter (statuses as of 02/02/2023) Medications Medication Sig Dispensed Refills Start Date [...] as of this encounter (statuses as of 02/02/2023) Active Problems Problem Noted Date Diagnosed Date [...] as of this encounter (statuses as of 02/02/2023) Resolved Problems Problem Noted Date Diagnosed Date [...] as of this encounter (statuses as of 02/02/2023) Immunizations Name Administration Dates Next Due COVID-19 [...] Sign Reading Time Taken Comments Blood Pressure 98/62 02/02/2023 1:53 PM EST Pulse 75 02/02/2023 1:53 PM EST Temperature 36 C (96.8 F) 02/02/2023 1:53 PM EST Respiratory Rate - - Oxygen Saturation 100% 02/02/2023 1:53 PM EST Inhaled Oxygen Concentration - - Weight - - Height - - Body Mass Index - - documented in this encounter Nursing Notes * Elyssa Lord RN - 02/02/2023 4:43 PM EST Functional status at today's visit: [...] removed. Goals: Pt will remain free from injury. Possible barriers to meeting goals: pt is a high fall risk Stability of the patient: Moderately stable - low risk of patient condition declining or worsening Summary regarding today's goals: Met: Pt remained free from injury during treatment today. Discharged in stable condition. JH, BR, AB, JF assisted. * Elyssa Lord, RN - 02/02/2023 3:10 PM EST Chair 4, Etoposide. 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 Pt stated she did not sleep well. PIV established after several attempts; NSS infusing. Safety and Risk for Injury Patient will remain free from injury. Ensure appropriate safety devices are available. Provide and maintain safe environment. documented in this encounter Plan of Treatment Upcoming Encounters Date Type Department Care Team (Late st Contact Info) Description 02/03/2023 4:15 PM EST Immunization/Injecti on Hematology/Oncology Treatment, [place] [facility] [address] Helene, Chair 1 Hem Onc [facility] 200 [facility] [place] [address] 02/08/2023 1:15 PM EST Imaging [facility] 2nd Floor Cardiology, [place] [address] [place] [address] 02/14/2023 3:00 PM EST Office Visit Neurology [facility] [place] 200 [facility] [place] [address] Sandhya Hanley MD 200 [facility] [place] [address] 02/21/2023 12:30 PM EST Laboratory Laboratory [facility] [place] 200 [facility] [place] [phone] [place], Lab Scenery 200 [facility] [place] [address] 02/21/2023 1:30 PM EST Hem/Onc Treatment Hematology/Oncology Treatment, [place] [address] [facility] [address] Helene, Chair 3 Hem Onc Scenery [address] [place] [address] 02/22/2023 2:30 PM EST Hem/Onc Treatment Hematology/Oncology Treatment, [place] [facility] [place] [address] Helene, Chair 3 Hem Onc Scenery 200 [facility] [place] [address] 02/23/2023 2:30 PM EST Hem/Onc Treatment Hematology/Oncology Treatment, [place] [address] [facility] [address] Helene, Chair 1 Hem Onc Scenery 200 [facility] [place] [address] 03/07/2023 1:30 PM EST Office Visit Urology, [facility] [address] [facility] [place] [address] Sahil Funk MD [address] [place] [address] [place] [address] 03/07/2023 2:40 PM EST Office Visit Podiatry [facility] [address] [facility] [place] [address] Juliana Vogt DPM [address] [facility] [place] [address] 03/09/2023 4:40 PM EST Office Visit Family Practice [facility] [address] [place] [address] Hayes Maurer, [address] [facility] [place] [address] 03/14/2023 1:00 PM EST Laboratory Laboratory [facility] [place] [address] [place] [address] [place], Lab Scenery 200 [facility] [place] [address] 03/14/2023 2:00 PM EST Hem/Onc Treatment Hematology/Oncology Treatment, [place] 200 [place] [address] [place], Chair 1 Hem Onc [facility] 200 [facility] [place] [address] 03/15/2023 1:15 PM EST Office Visit Hematology/Oncology [facility] 200 [facility] [place] [address] Héctor Rodriguez MD 200 [facility] [place] [address] 03/15/2023 1:45 PM EST Hem/Onc Treatment Hematology/Oncology Treatment, [address] [place] [address] 03/16/2023 2:00 PM EST Hem/Onc Treatment Hematology/Oncology Treatment, [address] [place] [address] 05/15/2023 3:00 PM EDT Office Visit Nutrition & Weight Management, [facility] [address] [place] [address] Preethi Fletcher PA-C [address] [place] [address] Scheduled Procedures Name Priority Associated Diagnoses Date/Ti [...] (REFER TO SMARTSET #1146) 08/09/2022 COVID-19 Vaccine (2022-24 season) 2022 03/04/2021, 07/22/2020, 07/01/2020 Influenza Vaccine (FLU shot) (#1) 2022 Depression Screening 03/15/2023 03/15/2022 O2 ASSESSMENT COMPLETED IN PAST YEAR FOR COPD 07/20/2023 07/19/2022 TSH 12/28/2023 12/27/2022, 10/05, 10/06/2022, Additional history exists Lipid Panel 03/15/2027 03/15/2022, 02/05, 10/01/2019, Additional history exists COLONOSCOPY-EVERY 5 YRS AGES 18-100 10/18/2027 10/17/2022, 10/17/2022, 12/26/2017, Additional history exists VITAMIN D LEVEL ONCE IN A LIFETIME-USE SMARTSET# 24750 Completed 08/02/2011, 04/24/2009, 06/25/2008, Additional history exists [...] ONCE PRN Other, Hypersensitivity Reaction, Starting on Kendy 02/02/23 at 1437, Until Mon02/03/23 at 1436, For 24 hours EPINEPHrine 1 MG/ML inj 0.3 mg 0.3 mg, Intramuscular, ONCE PRN Other, Hypersensitivity Reaction or Anaphylaxis, Starting on Kendy 02/02/23 at 1437, Until Mon02/03/23 at 1436, For 24 hours hEParin 100 UNIT/ML Lock Flush inj 500 Units 500 Units (5 mL), IV Lock, PRN Other, IV Flush, Starting on Kendy 02/02/23 at 1437, Until Mon02/03/23 at 1436, For 24 hours, Do not flush if lock, PICC, or central line not in place; IV infusing or unable to flush. Hydrocortisone Sod Suc (PF) (Solu-Cortef) inj 100 mg 100 mg, IV Push, ONCE PRN Other, Hypersensitivity Reaction, Starting on Mon02/02/23 at 1437, Until Mon02/03/23 at 1436, For 24 hours LORAzepam (Ativan) tab 0.5 mg 0.5 mg, Oral, ONCE PRN Anxiety, Nausea, Starting on Mon02/02/23 at 1545, Until Discontinued NSS infusion Intravenous, at 50 mL/hr, PRN, Starting on Mon02/02/23 at 1545, Until Discontinued, KVO Start Infusion 02/02/2023 2:50 PM EST 50 mL/hr oxygen GAS Inhalation, OXYGEN, First dose on Mon02/02/23 at 1600, Until Discontinued, Device/Managed by: Low [...] Push, PRN Other, IV Flush, Starting on Mon02/02/23 at 1437, Until Mon02/03/23 at 1436, For 24 hours, Do not flush if [...] weight), IV Piggyback, ONCE, 1 dose, On Mon02/02/23 at 1615, Administer over 60 Minutes, Recommended concentration is less than or equal to 0.4 mg/mL. If concentration is greater than 0.4 mg/mL recommend to administer through 0.22 micron low protein binding filter. Start Infusion 02/02/2023 3:16 PM EST 140 mg 500 mL/hr ondansetron (Zofran) inj 8 mg 8 mg, IV Push, ONCE, On Kendy 02/02/23 at 1515, For 1 dose Given 02/02/2023 3:03 PM EST 8 mg documented in this encounter Advance Directives Healthcare Agents on File Name Relationship Healthcare Agent [facility] p Communication Michael Cifuentes [place] Spouse Health Care Repr esentative (appointed verbally by patient or by statute hierarchy) Care Teams Charcoal Kiln Burner Relationship Specialty Start Date End Date Hayes Maurer DO [address] [place] [address] PCP - General Family Medicine 04/04/19 documented as of this encounter
--- OUTSIDE RECORDS SUMMARY | 2023-02-27 12:53 | External Medical Summary ---
Author Name Unknown Address Unknown Organization K09:[facility] [place] [address] Laboratory Report Ordering Provider Test Date Status PARISH JAIME 02/21/2023 13:42:15 Final Observation Date Value Abnormality Reference (Units ) Status SYNC LEUKOCYTES IN BLOOD BY AUTOMATED COUNT 02/21/2023 13:42:15 17.37 Above high normal 4.00-10.80 (K/uL) Final Neutrophils/100 leukocytes in Blood by Manual count 02/21/2023 13:42:15 87.0 Above high normal 40.0-75.0 (%) Final Lymphocytes/100 leukocytes in Blood by Manual count 02/21/2023 13:42:15 10.0 Below low normal 18.0-42.0 (%) Final Monocytes/100 leukocytes in Blood by Manual count 02/21/2023 13:42:15 3.0 1.0-11.0 (%) Final Neutrophils [#/volume] in Blood by Manual count 02/21/2023 13:42:15 15.11 Above high normal 1.80-7.70 (K/uL) Final Lymphocytes [#/volume] in Blood by Manual count 02/21/2023 13:42:15 1.74 1.00-4.80 (K/uL) Final Monocytes [#/volume] in Blood by Manual count 02/21/2023 13:42:15 0.52 0.00-1.10 (K/uL) Final Nucleated erythrocytes/100 leukocytes [Ratio] in Blood by Automated count 02/21/2023 13:42:15 Final Performing Location [facility] [place] [address]
--- OUTSIDE RECORDS SUMMARY | 2023-02-27 12:53 | External Medical Summary | Summary of Care ---
Author Name Unknown Organization [facility] Address [address] [place] [address] Phone [phone] Care Team Providers Care Instrumentation And Controls Technician Name Role Phone Hayes Maurer DO Primary Care Provider Reason for Visit * Reason Onset Date Comments Rivet Hole Machine Operator Documentation 02/17/2023 Encounter Details Date Type Department Care Team (Late st Contact Info) Description 02/17/2023 Telephone Hematology Oncology, [place] [address] [place] [address] Jatin Padgett, TRACI Rivet Hole Machine Operator Documentation Allergies Active Allergy Reactions Criticality Noted Date Comments Morphine 03/26/1997 Shock, dyspnea Other reaction(s): shock, dspnea Neomycin 04/07/2013 documented as of this encounter (statuses as of 02/17/2023) Medications Medication Sig Dispensed Refills Start Date [...] as of this encounter (statuses as of 02/17/2023) Active Problems Problem Noted Date Diagnosed Date [...] as of this encounter (statuses as of 02/17/2023) Resolved Problems Problem Noted Date Diagnosed Date [...] as of this encounter (statuses as of 02/17/2023) Immunizations Name Administration Dates Next Due COVID-19 mRNA, LNP-s, No Pre serve, 2-Dose Series ([email or web address]) 03/04/2021,07/22/2020,07/01/2020 Pneumococcal Conjugate Vacc, 13 Valent (Prevnar) [...] Telephone Encounter - Jatin Padgett MSW - 02/17/2023 10:34 AM EST SW spoke with Mrs. Funk and reviewed the possible financial resources available through the [employer]. SW stated he would contact staff at the [facility] to fax over the application for her to review, sign, and have faxed back. SW encouraged her to contact him for any other questions or concerns. Services provided include: Care Coordination Lisa/Financial Assistance Follow-up Calls and Visits Giselle Gayle, ALLIANCE CONSULTANT, OVERHEAD CRANE TECHNICIAN [place] Hematology/Oncology [place] Office: [phone] [place] Office: [phone] E-mail: [email or web address] documented in this encounter Plan of Treatment Upcoming Encounters Date Type Department Care Team (Late st Contact Info) Description 02/21/2023 12:30 PM EST Laboratory Laboratory [facility] [address] [place] [address] [place], Lab [facility] [address] [facility] [place] [address] 02/21/2023 1:30 PM EST Hem/Onc Treatment Hematology/Oncology Treatment, [address], [place] [address] Helene, Chair 3 [facility] [address] [facility] [place], [place] [address] 02/22/2023 2:30 PM EST Hem/Onc Treatment Hematology/Oncology Treatment, [address], [place] [address] Helene, Chair 3 Hem Onc Scenery [address] [place], [place] [address] 02/23/2023 2:30 PM EST Hem/Onc Treatment Hematology/Oncology Treatment, [address], [place] [address] Helene, Chair 1 Hem Onc Scenery [address] [place], [place] [address] 03/07/2023 1:30 PM EST Office Visit Urology, [facility] [address] [address] Sahil Funk MD [address] [place] [address] [place] [address] 03/07/2023 2:40 PM EST Office Visit Podiatry [facility] [address] [facility] [place] [address] Juliana Vogt, DALTON [address] [place] [address] 03/09/2023 4:40 PM EST Office Visit Family Practice [facility] [address] [facility] [place] [address] Hayes Maurer DO [address] [address] 03/14/2023 1:00 PM EST Laboratory Laboratory [facility] [place] [address] [facility] [place] [address] [place], Lab [facility] [address] [facility] [place], [place] [address] 03/14/2023 2:00 PM EST [facility] [address] [place] [address] Helene, Chair 5 Hem Onc [address] [place] [address] 03/15/2023 1:15 PM EST Office Visit Hematology/Oncology [facility] [address] [place] [address] Héctor Rodriguez MD [address] [facility] [place] [address] 03/15/2023 1:45 PM EST Hem/Onc Treatment Hematology/Oncology Treatment, [place] 200 [place] [address] 03/16/2023 2:00 PM EST Hem/Onc Treatment Hematology/Oncology Treatment, [place] [address] [place] [address] 05/18/2023 2:20 PM EDT Office Visit Nutrition & Weight Management, [facility] [place] [address] Wili Leyva MD [address] [facility] [place] [address] Scheduled Procedures Name Priority Associated [...] D LEVEL ONCE IN A LIFETIME-USE SMARTSET# [id number] Completed 08/02/2011, 04/24/2009, 06/25/2008, Additional history exists [...] patient or by statute hierarchy) Care Teams Instrumentation And Controls Technician Relationship Specialty Start Date End Date Hayes Maurer DO [address] [place] [address] PCP - General Family Medicine 04/04/19 documented as of this encounter
--- OUTSIDE RECORDS SUMMARY | 2023-02-27 12:53 | External Medical Summary | Summary of Care ---
Author Name Unknown Organization [facility] Address [address] [place] [address] Phone [phone] Care Team Providers Care Exercise Physiologist Certified Name Role Phone Hayes Maurer DO Primary Care Provider Reason for Visit * Reason Onset Date Comments Industrial Electrical Engineer Documentation 02/08/2023 Encounter Details Date Type Department Care Team (Late st Contact Info) Description 02/08/2023 [facility]phone [facility] [place] [address] [place] [address] Jatin Padgett, TRACI Industrial Electrical Engineer Documentation Allergies Active Allergy Reactions Criticality Noted Date Comments Morphine 03/26/1997 Shock, dyspnea Other reaction(s): shock, dspnea Neomycin 04/07/2013 documented as of this encounter (statuses as of 02/16/2023) Medications Medication Sig Dispensed Refills Start Date [...] as of this encounter (statuses as of 02/16/2023) Active Problems Problem Noted Date Diagnosed Date [...] as of this encounter (statuses as of 02/16/2023) Resolved Problems Problem Noted Date Diagnosed Date [...] as of this encounter (statuses as of 02/16/2023) Immunizations Name Administration Dates Next Due COVID-19 mRNA, LNP-s, No Pre serve, 2-Dose Series ([employer]) 03/04/2021,07/22/2020,07/01/2020 Pneumococcal Conjugate Vacc, 13 Valent (Prevnar) [...] within the home and to review the [employer] financial assistance program. JAVIER left his name, contact number, and office hours for the remainder of the day. Services provided include: Care Coordination Lisa/Financial Assistance Giselle Molina, INDUSTRIAL HEALTH ENGINEER, FIELD CROPS HARVEST MACHINE OPERATOR Teacher Citizenship Hematology/Oncology [place] Office: [phone] [place] Office: [phone] E-mail: [email or web address] documented in this encounter Plan of Treatment Upcoming Encounters Date Type Department Care Team (Late st Contact Info) Description 02/21/2023 12:30 PM EST Laboratory Laboratory [address] [place] [address] [place], Lab [facility] 200 [facility] [place], [place] [address] 02/21/2023 1:30 PM EST Hem/Onc Treatment Hematology/Oncology Treatment, [address], [place] [address] Helene, Chair 3 Hem [facility]c [facility] 200 [facility] [place], [place] [address] 02/22/2023 2:30 PM EST Hem/Onc Treatment Hematology/Oncology Treatment, [address], [place] [address] Helene, Chair 3 Hem Onc Scenery 200 [facility] [place], [place] [address] 02/23/2023 2:30 PM EST Hem/Onc Treatment Hematology/Oncology Treatment, [address], [place] [address] Helene, Chair 1 Hem Onc Scenery 200 [facility] [place], [place] [address] 03/07/2023 1:30 PM EST Office Visit Urology, [facility] [address] [place] [address] Sahil Funk MD [address] [place] [address] [place] [address] 03/07/2023 2:40 PM EST Office Visit Podiatry [facility] 132 [place] [address] Juliana Vogt, CHIPM [address] [place] [address] 03/09/2023 4:40 PM EST Office Visit Family Practice [facility] 132 [place] [address] Hayes Maurer DO 132 [place] [address] 03/14/2023 1:00 PM EST Laboratory Laboratory [facility] [address] [place], [place] [phone] [place], Lab [facility] 200 [facility] [place] [address] 03/14/2023 2:00 PM EST [facility] 200 [facility], [place] [address] Helene, Chair 5 Hem Onc [facility] [address] [place] [address] 03/15/2023 1:15 PM EST Office Visit Hematology/Oncology [facility] [place] [address] [place] [address] Héctor Rodriguez MD 200 [facility] [place] [address] 03/15/2023 1:45 PM EST Hem/Onc Treatment Hematology/Oncology Treatment, [place] [facility] [address] 03/16/2023 2:00 PM EST Hem/Onc Treatment Hematology/Oncology Treatment, [place] [address] [place] [address] 05/15/2023 3:00 PM EDT Office Visit Nutrition & Weight Management, [facility] [address] [place] [address] Preethi Fletcher PA-C [address] [place] [address] Scheduled Procedures Name Priority Associated Diagnoses Date/Ti [...] D LEVEL ONCE IN A LIFETIME-USE SMARTSET# 31554 Completed 08/02/2011, 04/24/2009, 06/25/2008, Additional history exists [...] patient or by statute hierarchy) Care Teams Exercise Physiologist Certified Relationship Specialty Start Date End Date Hayes Maurer DO [address] [place] [address] PCP - General Family Medicine 04/04/19 documented as of this encounter
--- OUTSIDE RECORDS SUMMARY | 2023-02-27 12:53 | External Medical Summary | Summary of Care ---
Author Name Unknown Organization [facility] Address [address] [place] [address] Phone [phone] Care Team Providers Care Glass Smoother Name Role Phone Hayes Maurer Primary Care Provider Reason for Visit * Reason Comments Medication Administration Udenyca * Episode Based Medications (Routine) - Authorized Specialty Diagnoses / Procedures Referred By Johanny t Referred To Contact Diagnoses Encounter for antineoplastic chemotherapy Small cell lung cancer (HCC) Procedures CA CARBOPLATIN INJECTION CA FOSAPREPITANT INJECTION CA ETOPOSIDE 10 MG INJ CA INJECTION, UDENYCA 0.5 MG Héctor Rodriguez MD [address] [place] [address] Anc Hem/Onc [address] [address] Referral ID Status Reason Start Date Expiration Date V isits Requested Visits Authorized [id number] Authorized 12/30/2022 03/05/2099 999 99 Encounter Details Date Type Department Care Team (Latest Contact Info) Description 02/03/2023 4:15 PM EST Immunization/ Injection Hematology/Oncology Treatment, [address] [address] Helene, Chair 1 Hem Onc [address] [place] [address] Encounter for antineoplastic chemotherapy*; Small cell lung cancer (HCC) Allergies Active Allergy Reactions Criticality Noted Date Comments Morphine 03/26/1997 Shock, dyspnea Other reaction(s): shock, dspnea Neomycin 04/07/2013 documented as of this encounter (statuses as of 02/03/2023) Medications Medication Sig Dispensed Refills Start Date [...] as of this encounter (statuses as of 02/03/2023) Active Problems Problem Noted Date Diagnosed Date [...] as of this encounter (statuses as of 02/03/2023) Resolved Problems Problem Noted Date Diagnosed Date [...] as of this encounter (statuses as of 02/03/2023) Immunizations Name Administration Dates Next Due COVID-19 [...] as of this encounter Nursing Notes * Christine Crouch RN - 02/03/2023 4:22 PM EST Chair 7 Pt denies any complaint since treatment yesterday. Udenyca given per order. Discharged in stable condition. documented in this encounter Plan of Treatment Upcoming Encounters Date Type Department Care Team (Late st Contact Info) Description 02/21/2023 12:30 PM EST Laboratory Laboratory [facility] 200 [facility] [place], [place] [address] [place], Lab Scenery [address] [facility] [place], [place] [address] 02/21/2023 1:30 PM EST Hem/Onc Treatment Hematology/Oncology Treatment, [place] 200 [facility], [place] [address] Helene, Chair 3 Hem Onc [facility] [address] [place], [place] [address] 02/22/2023 2:30 PM EST Hem/Onc Treatment Hematology/Oncology Treatment, [place] 200 [facility], [place] [address] Helene, Chair 3 Hem Onc Scenery [address] [place], [place] [address] 02/23/2023 2:30 PM EST Hem/Onc Treatment Hematology/Oncology Treatment, [place] 200 [facility], [place] [address] Helene, Chair 1 Hem Onc Scenery [address] [place], [place] [address] 03/07/2023 1:30 PM EST Office Visit Urology, [facility] [address] [facility] [place] [address] Sahil Funk MD [address] [place] [address] [place] [address] 03/07/2023 2:40 PM EST Office Visit Podiatry [facility] [place] [address] Juliana Vogt DPM [facility] [place] [address] 03/09/2023 4:40 PM EST Office Visit Family Practice [facility] 132 [facility] [place] [address] Hayes [facility]urer DO [facility] [place] [address] 03/14/2023 1:00 PM EST Laboratory [facility] [place] [address] [place] [phone] [place], Lab Scenery [address] [facility] [place], [place] [address] 03/14/2023 2:00 PM EST Hem/Onc Treatment Hematology/Oncology Treatment, [place] 200 [facility], [place] [address] Helene, Chair 1 Hem Onc Scenery [address] [place] [address] 03/15/2023 1:15 PM EST Office Visit Hematology/Oncology [place], [place] 200 [place] [address] Héctor Rodriguez MD [address] [place] [address] 03/15/2023 1:45 PM EST Hem/Onc Treatment Hematology/Oncology Treatment, [place] 200 [place] [address] 03/16/2023 2:00 PM EST Hem/Onc Treatment Hematology/Oncology Treatment, [place] 200 [place] [address] 05/15/2023 3:00 PM EDT Office Visit Nutrition & Weight Management, [facility] [address] [place] [address] Preethi Fletcher PA-C [address] [facility] [address] Scheduled Procedures Name Priority Associated Diagnoses Date/Ti [...] FOR COPD 07/20/2023 07/19/2022 TSH 12/28/2023 12/27/2022, 08/2 03/2022, 10/06/2022, Additional history exists Lipid Panel 03/15/2027 [...] Lock, PRN Other, IV Flush, Starting on Mon02/03/23 at 1606, Until 02/04/23 at 1605, For 24 hours, Do not flush if lock, PICC, or central line not in place; IV infusing or unable to flush. NSS infusion FOR HYDRATION Intravenous, at 500 mL/hr Administer over 2 Hours, ONCE PRN, 1 dose, Starting on Mon02/03/23 at 1606, Until Discontinued sodium chloride 0.9 % flush central line 10 mL 10 mL, IV Push, PRN Other, IV Flush, Starting on Mon02/03/23 at 1606, Until 02/04/23 at 1605, For 24 hours, Do not flush if lock, PICC, or central line not in place; IV infusing or unable to flush. Inactive Administered Medications - up to 3 most recent administrations Medication Order MAR Action Action Date Dose Rate Site Pegfilgrastim-cbqv (Udenyca) inj 6 mg 6 mg, Subcutaneous, ONCE, On Mon02/03/23 at 1645, For 1 dose Given 02/03/2023 4:10 PM EST 6 mg Arm R ight Upper documented in this encounter Advance Directives Healthcare Agents on File Name Relationship Healthcare Agent Relationshi p Communication Michael Cifuentes Funk Spouse Health Care Repr esentative (appointed verbally by patient or by statute hierarchy) Care Teams Glass Smoother Relationship Specialty Start Date End Date Hayes Maurer DO [address] [place] [address] PCP - General Family Medicine 04/04/19 documented as of this encounter
--- OUTSIDE RECORDS SUMMARY | 2023-02-27 12:53 | External Medical Summary | Summary of Care ---
Author Name Unknown Organization [facility] Address [address] [place] [address] Phone [phone] Care Team Providers Care Sharepoint Designer Developer Name Role Phone Hayes Maurer DO Primary Care Provider Reason for Visit * Reason Onset Date Comments Advice 11/02/2022 Encounter Details Date Type Department Care Team (Late st Contact Info) Description 11/02/2022 Telephone Family Practice [facility] [address] [place] [address] Hayes Maurer DO [address] [place] [address] Advice Allergies Active Allergy Reactions Criticality Noted Date Comments Morphine 03/26/1997 Shock, dyspnea Other reaction(s): shock, dspnea Neomycin 04/07/2013 documented as of this encounter (statuses as of 02/01/2023) Medications Medication Sig Dispensed Refills Start Date End Date Status Oxybutynin Chloride ER 5 MG Oral Tablet Extended Release 24 Hour (Ditropan XL) Take 1 Tablet by mouth in the morning. 30 Tablet 6 3 Active Metoprolol Succinate ER 25 MG Oral Tablet Extended Release 24 Hour (toPROL XL)Indications:SVT (supraventricular tachycardia) Take 0.5 Tablets by mouth in the morning. 45 Tablet 3 3 Active Levothyroxine Sodium 88 MCG Oral Tablet (Levoxyl)Indicatio ns:Postoperative hypothyroidism Take 1 Tablet by mouth in the morning. (at least 30 min prior to breakfast or other meds). 90 Tablet 3 3 09/14/20 23 Discontinued Pantoprazole Sodium 40 MG Oral Tablet Delayed Release (Protonix)Indicati ons:Esophagitis Take 1 Tablet by mouth in the morning. 90 Tablet 3 3 12/29/19 23 Discontinued Ipratropium-Albute rol 0.5-2.5 (3) MG/3ML Inhalation Solution (Duoneb)Indication s:COPD, group B, by GOLD 2017 classification ([facility]) Inhale 3 mL via nebulizer every 6 hours as needed for Cough, Shortness of Breath or Wheezing. 360 mL 3 3 12/29/19 23 Discontinued([facility] List Clean Up) Vancomycin HCl 125 MG Oral Capsule (Vancocin) Taper: 125mg by mouth four times daily x 2 weeks, 125mg by mouth twice daily x 1 week, 125mg by mouth daily x 1 week, 125mg by mouth every other day x 2 weeks. 84 Capsule 0 3 12/29/19 23 Discontinued documented as of this encounter (statuses as [...] mRNA, LNP-s, No Pre serve, 2-Dose Series (Messagemind) 03/04/2021,07/22/2020,07/01/2020 Pneumococcal Conjugate Vacc, 13 Valent (Prevnar) 06/14/2016 Pneumococcal Polysaccharide PPV23 (Pneumovax) 08/10/2017 TDAP (age 11 and older)(Adacel) 04/02/2011 documented as of this encounter Social History Tobacco Use Types Packs/Day Years Used Date Smoking Tobacco: Some Days Cigarettes 0.6 37 Smokeless Tobacco: Never Comments:1/2 per day-started age 35 Alcohol Use Standard Drinks/Week Comments No 0 [...] encounter Miscellaneous Notes * Telephone Encounter - Danae Amaya LPN - 11/03/2022 5:38 PM EDT Contacted [facility] to discuss concerns with pt as noted below. [facility] transferred my call to pt, allowed pt's phone to ring multiple times with no answer. * Telephone Encounter - Rekha Longoria OSA - 11/02/2022 5:24 PM EDT Reason for patient's call: requesting to speak to Dr Maurer Patient's has an appointment with Dr Erasto aranda and wants to ask a urgent question he can give answer-- she is being transferred to [facility]-- call her there [phone], ask for her room documented in this encounter Plan of Treatment Upcoming Encounters Date Type Department Care Team (Late st Contact Info) Description 02/02/2023 1:30 PM EST Hem/Onc Treatment Hematology/Oncology Treatment, [place] [address] [place] [address] Helene, Chair 8 Hem Onc [address] [place] [address] 02/08/2023 1:15 PM EST Imaging [facility] 2nd Floor Cardiology, [place] [address] [place] [address] 02/14/2023 3:00 PM EST Office Visit Neurology [facility] [place] [address] [place] [address] Sandhya Hanley MD 200 [facility] [place] [address] 02/21/2023 9:00 AM EST Laboratory Laboratory [facility] [place] [address] [place] [phone] Helene Lab [facility] 200 [facility] [place] [address] 02/21/2023 9:30 AM EST Office Visit Hematology/Oncology [facility] [place] [address] [place] [address] Jade Gaytan CRNP 400 [facility] [place] [address] 02/21/2023 10:00 AM EST Hem/Onc Treatment Hematology/Oncology Treatment, [place] 200 [facility] [place] [address] Helene, Chair 3 Hem Onc Scenery [address] [place] [address] 02/22/2023 2:30 PM EST Hem/Onc Treatment Hematology/Oncology Treatment, [place] 200 [facility] [place] [address] Helene, Chair 3 Hem Onc Scenery [address] [place] [address] 02/23/2023 2:30 PM EST Hem/Onc Treatment Hematology/Oncology Treatment, [place] 200 [facility] [place] [address] Helene, Chair 1 Hem Onc Scenery [address] [place], [place] [address] 03/07/2023 1:30 PM EST Office Visit Urology, [facility] [address] [facility] [place] [address] Sahil Funk MD [address] [address] [place] [address] 03/07/2023 2:40 PM EST Office Visit Podiatry [facility] [address] [facility] [place] [address] Juliana Vogt DPM [facility] [place] [address] 03/09/2023 4:40 PM EST Office Visit [facility] [place] [address] Hayes Maurer, [address] [place] [address] 05/15/2023 3:00 PM EDT Office Visit Nutrition & Weight Management, [facility] [address] [place] [address] Preethi Fletcher PA-C [address] [place] [address] Scheduled Procedures Name Priority Associated Diagnoses Date/Ti [...] D LEVEL ONCE IN A LIFETIME-USE SMARTSET# [id number] Completed 08/02/2011, 04/24/2009, 06/25/2008, Additional history exists [...] Not on filedocumented as of this encounter Additional Health Concerns Infection Onset Date Last Indicated Resolved Time C. difficile 10/12/2022 10/12/2022 11/11/2022 12:1 8 AM EDT documented as of this encounter Advance Directives Healthcare Agents on File Name Relationship Healthcare Agent Relationshi p Communication Michael Funk Spouse Health Care Repr esentative (appointed verbally by patient or by statute hierarchy) Care Teams Sharepoint Designer Developer Relationship Specialty Start Date End Date Hayes Maurer DO [address] [place] [address] PCP - General Family Medicine 04/04/19 documented as of this encounter
--- OUTSIDE RECORDS SUMMARY | 2023-02-27 12:54 | External Medical Summary | Summary of Care ---
Author Name Unknown Organization [facility] Address [address] [place] [address] Phone [phone] Care Team Providers Care Assistant Professor Of Sociology Name Role Phone Hayes Maurer Primary Care Provider Reason for Visit * Reason Comments Chemotherapy C2D1 Carbo/Etoposide * Episode Based Medications (Routine) - Authorized Specialty Diagnoses / Procedures Referred By Contlev t Referred To Contact Diagnoses Encounter for antineoplastic chemotherapy Small cell lung cancer (HCC) Procedures DC CARBOPLATIN INJECTION DC FOSAPREPITANT INJECTION DC ETOPOSIDE 10 MG INJ DC INJECTION, UDENYCA 0.5 MG Héctor Rodriguez MD [address] [place] [address] Anc Hem/Onc Scenery [address] [address] Referral ID Status Reason Start Date Expiration Date V isits Requested Visits Authorized [id number] Authorized 12/30/2022 03/05/2099 999 99 Encounter Details Date Type Department Care Team (Latest Contact Info) Description 01/31/2023 1:30 PM EST Hem/Onc Treatment Hematology/Oncolog y Treatment, [address] [address] Helene, Chair 4 Hem On[address] [place] [address] Encounter for antineoplastic chemotherapy*; Small cell lung cancer (HCC) Allergies Active Allergy Reactions Criticality Noted Date Comments Morphine 03/26/1997 Shock, dyspnea Other reaction(s): shock, dspnea Neomycin 04/07/2013 documented as of this encounter (statuses as of 01/31/2023) Medications Medication Sig Dispensed Refills Start Date [...] as of this encounter (statuses as of 01/31/2023) Active Problems Problem Noted Date Diagnosed Date [...] as of this encounter (statuses as of 01/31/2023) Resolved Problems Problem Noted Date Diagnosed Date [...] as of this encounter (statuses as of 01/31/2023) Immunizations Name Administration Dates Next Due COVID-19 [...] Nursing Notes * Christine Crouch RN - 01/31/2023 4:58 PM EST Functional status at today's visit: [...] treatment. Goals: Patient will remain free from injury Possible barriers to meeting goals: ambulation with IV pole, use of walker Stability of the patient: Moderately unstable - medium risk of patient condition declining or worsening Summary regarding today's goals: Met: Pt remained free of injury during treatment today Patient tolerated treatment well and was discharged in stable condition. Coverage by Vane Shafer LPN. * Christine Crouch RN - 01/31/2023 4:32 PM EST Chair 2 Pt was seen by Dr Rodriguez today, see office notes. Will proceed with treatment. IV started in the right arm by Vane Shafer LPN without difficulty, good blood return noted, flushed with NSS, fluids infusing. Safety and Risk for Injury Patient will remain free from injury. Ensure appropriate safety devices are available. Provide and maintain safe environment. documented in this encounter Plan of Treatment Upcoming Encounters Date Type Department Care Team (Late st Contact Info) Description 02/01/2023 1:30 PM EST Hem/Onc Treatment [facility]ematology[facility]cology Treatment, [place] [facility] [address] Helene, Chair 7 Hem Onc Scenery 200 [facility] [place] [address] 02/02/2023 1:30 PM EST Hem/Onc Treatment Hematology/Oncology Treatment, [place] 200 [facility] [address] [place], Chair 8 [facility] 200 [facility] [place] [address] 02/08/2023 1:15 PM EST Imaging [facility] 2nd Floor Cardiology, [place] [facility] [address] 02/14/2023 3:00 PM EST Office Visit Neurology [facility] [place] [address] [place] [address] Sandhya Hanley MD 200 [facility] [place] [address] 02/21/2023 9:00 AM EST Laboratory Laboratory [facility] Helene [place] [address] [place] [phone] [place], Lab [facility] 200 [facility] [place] [address] 02/21/2023 9:30 AM EST Office Visit Hematology/Oncology [facility] [place] [address] [place] [address] Jade Gaytan CRNP 400 [facility] [place] [address] 02/21/2023 10:00 AM EST Hem/Onc Treatment Hematology/Oncology Treatment, [place] 200 [facility] [place] [address] [place], Chair 3 Hem Onc Scenery 200 [facility] [place], [place] [address] 02/22/2023 11:30 AM EST Hem/Onc Treatment Hematology/Oncology Treatment, [place] 200 [facility] [place] [address] Helene, Chair 3 Hem Onc Scenery 200 [facility] [place], [place] [address] 02/23/2023 11:30 AM EST Hem/Onc Treatment Hematology/Oncology Treatment, [address], [place] [address] 03/07/2023 1:30 PM EST Office Visit Urology, [facility] [address] [place] [address] Sahil Funk MD [address] [place] [address] [place] [address] 03/07/2023 2:40 PM EST Office Visit Podiatry [facility] [address] [place] [address] Juliana Vogt DPM [address] [place] [address] 03/09/2023 4:40 PM EST Office Visit Family Practice [facility] [address] [address] Hayes Maurer, [address] [place] [address] 05/15/2023 3:00 PM EDT Office Visit Nutrition & Weight Management, [facility] [address] [place] [address] Preethi Fletcher PA-C [address] [place] [address] Scheduled Procedures Name Priority Associated Diagnoses Date/Ti [...] D LEVEL ONCE IN A LIFETIME-USE SMARTSET# [id number] Completed 08/02/2011, 04/24/2009, 06/25/2008, Additional history exists [...] ONCE PRN Other, Hypersensitivity Reaction, Starting on Mon01/31/23 at 1421, Until Mon02/01/23 at 1420, For 24 hours EPINEPHrine 1 MG/ML inj 0.3 mg 0.3 mg, Intramuscular, ONCE PRN Other, Hypersensitivity Reaction or Anaphylaxis, Starting on Mon01/31/23 at 1421, Until Mon02/01/23 at 1420, For 24 hours hEParin 100 UNIT/ML Lock Flush inj 500 Units 500 Units (5 mL), IV Lock, PRN Other, IV Flush, Starting on Mon01/31/23 at 1421, Until Mon02/01/23 at 1420, For 24 hours, Do not flush if lock, PICC, or central line not in place; IV infusing or unable to flush. Hydrocortisone Sod Suc (PF) (Solu-Cortef) inj 100 mg 100 mg, IV Push, ONCE PRN Other, Hypersensitivity Reaction, Starting on Mon01/31/23 at 1421, Until Mon02/01/23 at 1420, For 24 hours LORAzepam (Ativan) tab 0.5 mg 0.5 mg, Oral, ONCE PRN Anxiety, Nausea, Starting on Mon01/31/23 at 1530, Until Discontinued NSS infusion Intravenous, at 50 mL/hr, PRN, Starting on Mon01/31/23 at 1530, Until Discontinued, KVO Start Infusion 01/31/2023 2:45 PM EST 50 mL/hr oxygen GAS Inhalation, OXYGEN, First dose on Mon01/31/23 at 1600, Until Discontinued, Device/Managed by: Low [...] Push, PRN Other, IV Flush, Starting on Mon01/31/23 at 1421, Until Mon02/01/23 at 1420, For 24 hours, Do not flush if lock, PICC, or central line not in place; IV infusing or unable to flush. Inactive Administered Medications - up to 3 most recent administrations Medication Order MAR Action Action Date Dose Rate Site CARBOplatin (Paraplatin) 273 mg in D5W 250 mL infusion 273 mg (rounded from 272.8 mg, Target AUC = 4), IV Piggyback, at 500 mL/hr Administer over 30 Minutes, PROTECT FROM LIGHT (Max Creatinine Clearance at 125 ml/min for calculating AUC dose), ONCE, 1 dose, On Mon01/31/23 at 1600 Start Infusion 01/31/2023 3:21 PM EST 273 mg 500 mL/hr etoposide (VEPESID) 140 mg in NSS 500 mL infusion 140 mg (100 mg/m2 1.4 m2 Treatment Plan BSA from Recorded weight), IV Piggyback, ONCE, 1 dose, On Mon01/31/23 at 1600, Administer over 60 Minutes, Recommended concentration is less than or equal to 0.4 mg/mL. If concentration is greater than 0.4 mg/mL recommend to administer through 0.22 micron low protein binding filter. Start Infusion 01/31/2023 3:53 PM EST 140 mg 500 mL/hr Fosaprepitant Dimeglumine (Emend) 150 mg, ondansetron (Zofran) 16 mg, dexamethasone sodium phosphate 12 mg in NSS 250 mL Infusion 150 mg, IV Piggyback, ONCE, 1 dose, On Mon01/31/23 at 1530, Administer over 30 Minutes, Give 30 minutes prior to chemotherapy. Infuse over 30 minutes. Start Infusion 01/31/2023 2:46 PM EST 150 mg 500 mL/hr documented in this encounter Advance Directives Healthcare Agents on File Name Relationship Healthcare Agent Relationshi p Communication Michael Funk [facility] Health Care Repr esentative (appointed verbally by patient or by statute hierarchy) Care Teams Assistant Professor Of Sociology Relationship Specialty Start Date End Date Hayes Maurer DO [address] [place] [address] PCP - General Family Medicine 04/04/19 documented as of this encounter
--- OUTSIDE RECORDS SUMMARY | 2023-02-27 12:54 | External Medical Summary | Summary of Care ---
Author Name Unknown Organization [facility] Address [address] [place] [address] Phone [phone] Care Team Providers Care Food Service Kitchen Supervisor Name Role Phone Hayes Maurer Primary Care Provider Reason for Visit * Reason Comments Outpatient Testing Encounter Details Date Type Department Care Team (Late st Contact Info) Description 01/31/2023 12:30 PM EST Laboratory Laboratory [facility] [address] [place] [phone] [facility] Scenery [address] [place] [address] Small cell lung cancer (HCC) Allergies Active [...] mRNA, LNP-s, No Pre serve, 2-Dose Series ([employer]) 03/04/2021,07/22/2020,07/01/2020 Pneumococcal Conjugate Vacc, 13 Valent (Prevnar) [...] 1:30 PM EST Hem/Onc Treatment Hematology/Oncology Treatment, [place] 200 [facility], [place] [address] Helene, Chair 7 Hem Onc Scenery [address] [place] [address] 02/02/2023 1:30 PM EST Hem/Onc Treatment Hematology/Oncology Treatment, [place] [address] [place] [address] Helene, Chair 8 Hem Onc Scenery [address] [place] [address] 02/08/2023 1:15 PM EST Imaging [facility] 2nd Floor Cardiology, [place] [address] [facility] [place] [address] 02/14/2023 3:00 PM EST Office Visit Neurology [facility] [place] [address] [place] [address] Sandhya Hanley MD [address] [place] [address] 03/07/2023 1:30 PM EST Office Visit Urology, [facility] [address] [facility] [place] [address] Sahil Funk MD 27 [facility] [address] [place] [id number] 03/07/2023 2:40 PM EST Office Visit Podiatry [facility] [address] [facility] [place] [address] Juliana Vogt DPM 132 [facility] [place] [address] 03/09/2023 4:40 PM EST Office Visit Family Practice [facility] 132 [facility] [place] [address] Hayes Maurer, [address] [place] [address] 05/15/2023 3:00 PM EDT Office Visit Nutrition & Weight Management, [facility] [address] [place] [address] Preethi Fletcher PA-C [address] [place] [address] Pending Results Name Type Priority Associated Diagnoses Date /Time CBC WITH WBC DIFFERENTIAL Lab STAT Small cell lung cancer (HCC) 01/31/2023 1:22 PM EST COMPREHENSIVE METABOLIC PANEL Lab STAT Small cell lung cancer (HCC) 01/31/2023 1:22 PM EST CBC Lab STAT Small cell lung cancer (HCC) 01/31/2023 1:22 PM EST DIFFERENTIAL, AUTOMATED Lab STAT Small cell lung cancer (HCC) 01/31/2023 1:22 PM EST Scheduled Procedures Name Priority Associated Diagnoses Date/Ti [...] Additional history exists Lipid Panel 03/15/2027 03/15/2022, 12/, 10/01/2019, Additional history exists COLONOSCOPY-EVERY 5 YRS AGES 18-100 10/18/2027 10/17/2022, 10/17/2022, 12/26/2017, Additional history exists VITAMIN D LEVEL ONCE IN A LIFETIME-USE SMARTSET# [id number] Completed 08/02/2011, 04/24/2009, 06/25/2008, Additional history exists [...] Healthcare Agent Relationshi p Communication Michael Cifuentes [place] Spouse Health Care Repr esentative (appointed verbally by patient or by statute hierarchy) Care Teams Food Service Kitchen Supervisor Relationship Specialty Start Date End Date Hayes Maurer DO [address] [place] [address] PCP - General Family Medicine 04/04/19 documented as of this encounter
--- OUTSIDE RECORDS SUMMARY | 2023-02-27 12:54 | External Medical Summary | Summary of Care ---
Author Name Unknown Organization [facility] Address [address] [place] [address] Phone [phone] Care Team Providers Care Fine Artist Name Role Phone Hayes Maurer DO Primary Care Provider Encounter Details Date Type Department Care Team (Late st Contact Info) Description 01/06/2023 2:15 PM EDT Nurse Only Hematology/Oncology [facility] [address] [place] [address] [place], Nurse Hem Onc [facility] 200 [facility] [place] [address] Allergies Active Allergy Reactions Criticality Noted Date Comments Morphine 03/26/1997 Shock, dyspnea Other reaction(s): shock, dspnea Neomycin 04/07/2013 documented as of this encounter (statuses as of 01/06/2023) Medications Medication Sig Dispensed Refills Start Date [...] before bedtime. 30 Tablet 5 01/05/2023 Active documented as of this encounter (statuses as of 01/06/2023) Active Problems Problem Noted Date Diagnosed Date [...] as of this encounter (statuses as of 01/06/2023) Resolved Problems Problem Noted Date Diagnosed Date [...] as of this encounter (statuses as of 01/06/2023) Immunizations Name Administration Dates Next Due COVID-19 [...] Recorded PHQ Adult Total Score 0 03/15/2022 Sex and Gender Information Value Date Recorded Sex Assigned at Not on file Gender Identity Not on file Sexual Orientation Not on file Job Start Date Occupation Industry Not on file Not on file Not on file documented as of this encounter Plan of Treatment Upcoming Encounters Date Type Department Care Team (Late st Contact Info) Description 01/10/2023 1:00 PM EST Hem/Onc Treatment Hematology/Oncology Treatment, [address], [place] [address] Helene, Chair 6 Hem Onc Scenery [address] [place] [address] [place], [place] [address] 01/11/2023 2:00 PM EST Hem/Onc Treatment Hematology/Oncology Treatment, [address] [place] [address] Helene, Chair 6 Hem Onc Scenery [address] [place] [address] [place] [address] 01/12/2023 2:00 PM EST Hem/Onc Treatment Hematology/Oncology Treatment, [place] 200 [place] [address] Helene, Chair 4 Hem Onc Scenery [address] [facility] [place] [address] 02/08/2023 1:15 PM EST Imaging [facility] 2nd Floor Cardiology, [place] 132 [facility] [place] [address] 02/14/2023 3:00 PM EST Office Visit Neurology [facility] [address] [place] [address] Sandhya Hanley MD [address] [place] [address] 03/07/2023 1:30 PM EST Office Visit Urology, [facility] 132 [facility] [place] [address] Sahil Funk MD 27 [facility] 270 [place] [address] 03/09/2023 4:40 PM EST Office Visit Family Practice [facility] 132 [facility] [place] [address] Hayes Maurer DO [address] [place] [address] 05/15/2023 3:00 PM EDT Office Visit Nutrition & Weight Management, [facility] 132 [facility] [place] [address] [facility]i Fletcher PA-C [facility] [place] [address] Scheduled Procedures Name Priority Associated Diagnoses Date/Ti me COLONOSCOPY FLEXIBLE PROXIMA L DIAGNOSTIC Recall History of colon polyps Special screening for malignant neoplasms, colon Health Maintenance Due Date Last Done Comments Hepatitis B (2 of 3 - 19+ 3-dose series) 04/23/1997 03/26/1997 Zoster Vaccines (1 of 2) 01/10/2000 DXA Scan 10/25/2018 10/25/2016 DTaP,Tdap,and Td Vaccines (2 - Td [...] COLONOSCOPY-EVERY 5 YRS AGES 18-100 10/18/2027 10/17/2022, 12/26/2017, 12/26/2017, Additional history exists VITAMIN D LEVEL ONCE IN A LIFETIME-USE SMARTSET# [id number] Completed 08/02/2011, 04/24/2009, 06/25/2008, Additional history exists [...] Healthcare Agent Relationshi p Communication Michael Cifuentes [place] Spouse Health Care Repr esentative (appointed verbally by patient or by statute hierarchy) Care Teams Fine Artist Relationship Specialty Start Date End Date Hayes Maurer DO [address] [place] [address] PCP - General Family Medicine 04/04/19 documented as of this encounter
--- OUTSIDE RECORDS SUMMARY | 2023-02-27 12:54 | External Medical Summary | Summary of Care ---
Author Name Unknown Organization [facility] Address [address] [place] [address] Phone [phone] Care Team Providers Care New Account Interviewer Name Role Phone Hayes Maurer Primary Care Provider Reason for Visit * Reason Comments Treatment * Episode Based Medications (Routine) - Authorized Specialty Diagnoses / Procedures Referred By Johanny garcia Referred To Contact Diagnoses Encounter for antineoplastic chemotherapy Small cell lung cancer (HCC) Procedures W[place] CARBOPLATIN INJECTION W[place] FOSAPREPITANT INJECTION [place] ETOPOSIDE 10 MG INJ W[place] INJECTION, UDENYCA 0.5 MG Héctor Rodriguez MD 200 [facility] [place] [address] Anc Hem/Onc [address] [address] Referral ID Status Reason Start Date Expiration Date V isits Requested Visits Authorized [id number] Authorized 12/30/2022 03/05/2099 999 99 Encounter Details Date Type Department Care Team (Latest Contact Info) Description 01/12/2023 2:00 PM EST Hem/Onc Treatment Hematology/Oncolog y Treatment, [address] [address] Helene, Chair 4 Hem On[address] [address] Encounter for antineoplastic chemotherapy*; Small cell lung cancer (HCC) Allergies Active Allergy Reactions Criticality Noted Date Comments Morphine 03/26/1997 Shock, dyspnea Other reaction(s): shock, dspnea Neomycin 04/07/2013 documented as of this encounter (statuses as of 01/12/2023) Medications Medication Sig Dispensed Refills Start Date [...] as of this encounter (statuses as of 01/12/2023) Active Problems Problem Noted Date Diagnosed Date [...] as of this encounter (statuses as of 01/12/2023) Resolved Problems Problem Noted Date Diagnosed Date [...] as of this encounter (statuses as of 01/12/2023) Immunizations Name Administration Dates Next Due COVID-19 mRNA, LNP-s, No Pre serve, 2-Dose Series ([employer]) 03/04/2021,07/22/2020,07/01/2020 Pneumococcal Conjugate Vacc, 13 Valent (Prevnar) 06/14/2016 Pneumococcal Polysaccharide PPV23 (Pneumovax) 08/10/2017 TDAP (age 11 and older)(Adacel) 04/02/2011 documented as of this encounter Social History Tobacco Use Types Packs/Day Years Used Date Smoking Tobacco: Former Cigarettes 0.6 37 Smokeless Tobacco: Never Tobacco Cessation:Counseling Given: Not Answered Comments:Pt quit smoking in November 2022. Former: [...] Sign Reading Time Taken Comments Blood Pressure 100/65 01/12/2023 2:09 PM EST Pulse 73 01/12/2023 2:09 PM EST Temperature 36.2 C (97.2 F) 01/12/2023 2:09 PM ES T Respiratory Rate 16 01/12/2023 2:09 PM EST Oxygen Saturation - - Inhaled Oxygen Concentration - - Weight - - Height - - Body Mass Index - - documented in this encounter Nursing Notes * Myriam Dawson RN - 01/12/2023 4:53 PM EST Goals: Patient will remain free from injury. Possible barriers to meeting goals: ambulating with IV pole Stability of the patient: Moderately stable - low risk of patient condition declining or worsening Summary regarding today's goals: Met: pt remained free of harm today Functional status at today's visit: Restricted in [...] symptoms or adverse side effects during treatment. Patient tolerated treatment well without any acute issues or problems. Patient left facility in stable condition and denied any further needs. * Kymberly Eduardo RN - 01/12/2023 4:02 PM EST Safety and Risk for Injury Patient will remain free from injury. Ensure appropriate safety devices are available. Provide and maintain safe environment. Functional status at today's visit: Goals: patient will be free from falls during time in treatment room Possible barriers to meeting goals: s/p IM nail to R Femur, ambulates with min ass X1 AND walker, IV pole and tubing Stability of the patient: Moderately stable - low risk of patient condition declining or worsening Summary regarding today's goals: Met: fall free Ambulatory and capable of all selfcare but [...] symptoms or adverse side effects during treatment. documented in this encounter Plan of Treatment Upcoming Encounters Date Type Department Care Team (Late st Contact Info) Description 01/13/2023 2:00 PM EST Hem/Onc Treatment Hematology/[address] [address] Helene, Chair 3 Hem On[address] [facility] [place] [id number] 01/31/2023 7:45 AM EST Office Visit Hematology/Oncology [facility] [address] [place] [address] Héctor Rodriguez MD 200 [facility] [place] [address] 01/31/2023 12:30 PM EST Laboratory Laboratory [facility] [address] [place] [phone] Helene, Lab [address] [place] [address] 01/31/2023 1:30 PM EST [facility] 200 [facility] [place] [address] Helene, Chair 4 Hem Onc [address] [place] [address] 02/01/2023 1:30 PM EST Hem/Onc Treatment Hematology/Oncology Treatment, [place] 200 [place] [address] Helene, Chair 7 Hem Onc Scenery [address] [place] [address] 02/02/2023 1:30 PM EST Hem/Onc Treatment Hematology/Oncology Treatment, [place] [address] [place], [place] [address] Helene, Chair 5 Hem Onc Scenery [address] [place] [address] 02/08/2023 1:15 PM EST Imaging [facility] 2nd Floor Cardiology, [place] 132 [facility] [place] [address] 02/14/2023 3:00 PM EST Office Visit Neurology [facility] [address] [place] [address] Sandhya Hanley MD [address] [place] [address] 03/07/2023 1:30 PM EST Office Visit Urology, [facility] 132 [facility] [place] [address] Sahil Funk MD [address] [address] [place] [address] 03/09/2023 4:40 PM EST Office Visit Family Practice [facility] 132 [facility] [place] [address] Hayes Maurer DO [address] [place] [address] 05/15/2023 3:00 PM EDT Office Visit Nutrition & Weight Management, [facility] 132 [facility] [place] [address] Preethi Fletcher PA-C [address] [place] [address] Scheduled Procedures Name Priority Associated Diagnoses Date/Ti [...] D LEVEL ONCE IN A LIFETIME-USE SMARTSET# [id number] Completed 08/02/2011, 04/24/2009, 06/25/2008, Additional history exists [...] ONCE PRN Other, Hypersensitivity Reaction, Starting on Mon01/12/23 at 1432, Until Mon01/13/23 at 1431, For 24 hours EPINEPHrine 1 MG/ML inj 0.3 mg 0.3 mg, Intramuscular, ONCE PRN Other, Hypersensitivity Reaction or Anaphylaxis, Starting on Mon01/12/23 at 1432, Until Mon01/13/23 at 1431, For 24 hours Hydrocortisone Sod Suc (PF) (Solu-Cortef) inj 100 mg 100 mg, IV Push, ONCE PRN Other, Hypersensitivity Reaction, Starting on Mon01/12/23 at 1432, Until Mon01/13/23 at 1431, For 24 hours LORAzepam (Ativan) tab 0.5 mg 0.5 mg, Oral, ONCE PRN Anxiety, Nausea, Starting on Mon01/12/23 at 1545, Until Discontinued NSS infusion Intravenous, at 50 mL/hr, PRN, Starting on Mon01/12/23 at 1545, Until Discontinued, KVO Start Infusion 01/12/2023 2:33 PM EST 50 mL/hr oxygen GAS Inhalation, OXYGEN, First dose on Mon01/12/23 at 1600, Until Discontinued, Device/Managed by: Low Flow Device, Goal SPO2 (%): 91-95, Starting Device: Nasal Cannula, Inital Flow Rate (LPM): 2, Lowest Support: Nasal [...] weight), IV Piggyback, ONCE, 1 dose, On Kendy 01/12/23 at 1615, Administer over 60 Minutes, Recommended concentration is less than or equal to 0.4 mg/mL. If concentration is greater than 0.4 mg/mL recommend to administer through 0.22 micron low protein binding filter. Start Infusion 01/12/2023 3:01 PM EST 140 mg 500 mL/hr NSS infusion FOR HYDRATION Intravenous, at 500 mL/hr Administer over 2 Hours, ONCE, 1 dose, On Kendy 01/12/23 at 1600 Start Infusion 01/12/2023 2:30 PM EST 1,000 mL 500 mL/hr ondansetron (Zofran) inj 8 mg 8 mg, IV Push, ONCE, On Kendy 01/12/23 at 1600, For 1 dose Given 01/12/2023 2:30 PM EST 8 mg documented in this encounter Advance Directives Healthcare Agents on File Name Relationship Healthcare Agent Relationshi p Communication Michael Cifuentes [facility] Health Care Repr esentative (appointed verbally by patient or by statute hierarchy) Care Teams New Account Interviewer Relationship Specialty Start Date End Date Hayes Maurer DO [address] [place] [address] PCP - General Family Medicine 04/04/19 documented as of this encounter
--- OUTSIDE RECORDS SUMMARY | 2023-02-27 12:54 | External Medical Summary ---
Author Name Unknown Address Unknown Organization [id number]:[facility] [place] [address] Laboratory Report Ordering Provider Test Date Status PARISH JAIME 01/31/2023 13:22:33 Final Observation Date Value Abnormality Reference (Units ) Status SYNC LEUKOCYTES IN BLOOD BY AUTOMATED COUNT 01/31/2023 13:22:33 18.76 Above high normal 4.00-10.80 (K/uL) Final Neutrophils/100 leukocytes in Blood by Manual count 01/31/2023 13:22:33 91.0 Above high normal 40.0-75.0 (%) Final Lymphocytes/100 leukocytes in Blood by Manual count 01/31/2023 13:22:33 8.0 Below low normal 18.0-42.0 (%) Final Monocytes/100 leukocytes in Blood by Manual count 01/31/2023 13:22:33 1.0 1.0-11.0 (%) Final Neutrophils [#/volume] in Blood by Manual count 01/31/2023 13:22:33 17.07 Above high normal 1.80-7.70 (K/uL) Final Lymphocytes [#/volume] in Blood by Manual count 01/31/2023 13:22:33 1.50 1.00-4.80 (K/uL) Final Monocytes [#/volume] in Blood by Manual count 01/31/2023 13:22:33 0.19 0.00-1.10 (K/uL) Final Nucleated erythrocytes/100 leukocytes [Ratio] in Blood by Automated count 01/31/2023 13:22:33 Final Performing Location [facility] [place] [address]
--- OUTSIDE RECORDS SUMMARY | 2023-02-27 12:54 | External Medical Summary | Summary of Care ---
Author Name Unknown Organization [facility] Address [address] [place] [address] Phone [phone] Care Team Providers Care Pull Socket Assembler Name Role Phone Hayes Maurer DO Primary Care Provider Reason for Visit * Reason Comments Re-Check Encounter Details Date Type Department Care Team (Late st Contact Info) Description 01/31/2023 7:45 AM EST Office Visit Hematology[place] [facility] [place] [address] [facility] [place] [address] Héctor Rodriguez MD [address] [place] [address] Small cell lung cancer (HCC)* Allergies Active Allergy Reactions Criticality Noted Date [...] mRNA, LNP-s, No Pre serve, 2-Dose Series ([employer]) 03/04/2021,07/22/2020,07/01/2020 Pneumococcal Conjugate Vacc, 13 Valent (Prevnar) [...] Sign Reading Time Taken Comments Blood Pressure 104/68 01/31/2023 12:49 PM EST Pulse 103 01/31/2023 12:49 PM EST Temperature - - Respiratory Rate - - Oxygen Saturation 93% 01/31/2023 12:49 PM EST Inhaled Oxygen Concentration - - Weight 40.6 kg (89 lb 8 oz) 01/31/2023 12:49 PM EST Height - - Body Mass Index 15.73 12/29/2022 1:09 PM EDT documented in this encounter Progress Notes * Héctor Rodriguez MD - 01/31/2023 7:45 AM EST KACI KATZ MR # [id number] :1950 73-year-old female, Date of consultation:11/09/2022 DIAGNOSIS: 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 CURRENT TREATMENT: - systemic chemotherapy with carboplatin and etoposide. Carboplatin at AUC of 4 on day 1 Etoposide 100 mg/m daily for 3 days, repeating every 21 days. She is here for cycle 2 chemotherapy. High risk for febrile neutropenia, would like to give her prophylactic Pegfilgrastim to prevent thefebrile neutropenia. DIAGNOSTIC WORKUP: She had been admitted at [facility] for about 4 times in the last few months, reviewed hospital records, she had increasing generalized weakness, dizziness, severe protein calorie malnutrition, 25 lb weight loss, diarrhea. CT scan of the abdomen pelvis (10/12/2022) -moderate to severe right-sided hydronephrosis, no obstructing lesions noted. -left-sided nephrolithiasis. -no liver lesion. No lymphadenopathy. CT scan of the chest (10/30/2019) -right axilla lymph node measuring 0.8 x 0.7 cm Right cervical lymph node measuring 2.2 x 1.8 cm -right paratracheal lymph node measuring 2 x 1.7 cm -right lower paratracheal lymph node measuring 3.5 x 3.2 cm Right hilar lymph node 2.0 x 1.9 cm -extensive bilateral lower lobe airspace consolidation. -interlobular septal thickening. Geta-am-falwxhcq bilateral pleural effusion. 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 - he tumor has two components. The majority represents a small cell carcinoma. The minority represents a non-small cell carcinoma without any definitive adenocarcinoma or squamous cell carcinoma differentiation. Brain MRI --> negative for metastatic disease (10/30/2022). Back pain evaluation: MRI of the cervical spine (08/17/2022 ) -Multilevel degenerative changes are seen with up to mild canal stenosis, moderate to severe right and severe left neuroforaminal stenosis. MRI of the thoracic spine (08/17/2022) - No evidence of cord compression, significant neuroforaminal narrowing or ligamentous injury. MRI of the lumbar spine (08/19/2022). 1. Status post L3-L4 discectomy, posterior decompression and bilateral pedicle screw fusion. 2. Mild to moderate central canal stenosis at L1-L2. Otherwise, patent central canal. 3. Multilevel neural foraminal stenosis, as above. 4. No lumbar spine fractures. No acute process within the lumbar spine. OTHER IMPORTANT HISTORY: - Left hip nondisplaced intertrochanteric femur fracture following a fall. S/P eft hip short cephalomedullary nailing for nondisplaced intertrochanteric femur fracture by Dr. Ernesto Scott on 10/27/2022 at [facility]. -stool for C difficile positive Stool culture also grew norovirus - smokes about 5 cigarettes in a day, now she has discontinued smoking habit. INTERVAL HISTORY: She has come the clinic for the follow-up, ambulating with the help of the walker, She came to clinic by herself Previously palpable right supraclavicular node is no longer palpable, she does complain of some tingling and numbness of both lower extremities, some swelling of the both feet, no increasing nausea or vomiting at this time, current weight is around 89 lb, weight loss by about 10 lb noted. No nauseaor vomiting, no diarrhea, no constipation, currently not on oxygen treatment, no new cardiac or pulmonary symptoms. Back pain present. No abdominal pain or distention. Past Medical History: Diagnosis Date Abnormal Papanicolaou smear of cervix and cervical HPV Abnormal PAP Benign neoplasm of colon 05/22/07 5 2-3 mm polyps- hyperplastic polyps--repeat 3 years DDD (degenerative disc disease), lumbar s/p fusion x 3 Dermatitis Endometriosis Endometriosis Gastritis and gastroduodenitis 04/24/07 mild chronic gastritic inflammation Hyperthyroidism thyroid surgery for goiter Hypothyroidism 1993 Hypothyroidism, Grave's Disease Meniscus degeneration left knee - had surgery ended with staph infection x 3 Osteomyelitis (HCC) left knee Peptic ulcer PUD Past Surgical History: Procedure Laterality Date COLONOSCOPY W/ BIOPSY (RECTUM) 05/22/2007 5 2-3 mm polyps- hyperplastic polyps--repeat 3 years COLONOSCOPY, DIAGNOSTIC (RECTUM) 12/26/2017 diverticulosis, repeat 5 yrs/COLONOSCOPY FLEXIBLE PROXIMAL DIAGNOSTIC performed by Deisi Dent DO at [facility] EGD, FLEXIBLE, DIAGNOSTIC 07/19/2022 abdoul katz grade III reflux esophagitis/erthematous mucosa stomach/biopsies show mild irritationof stomach/ESOPHAGOGASTRODUODENOSCOPY (EGD), FLEXIBLE, TRANSORAL, DIAGNOSTIC performed by Jessica Martinez DO at ENDOSCOPY [facility] EGD, FLEXIBLE, W/BIOPSY 04/24/2007 chronic gastric inflammation LAPAROSCOPY OF PELVIS MAMMOGRAM - BILATERAL 08/25/1999 Negative assessment. REMOVAL OF THYROID GLAND Thyroidectomy SPINAL FUSION, LUMBAR, COMBINED lumbar x 3 US - BREAST(S) 08/25/1999 Extremely dense breasts, no lesion on u/s. Current Outpatient Medications Medication Sig Dispense Refill Oxybutynin Chloride ER 5 MG Oral Tablet Extended Release 24 Hour (Ditropan XL) Take 1 Tablet by mouth in the morning. 30 Tablet 6 Metoprolol Succinate ER 25 MG Oral Tablet Extended Release 24 Hour (toPROL XL) Take 0.5 Tablets by mouth in the morning. 45 Tablet 3 Acetaminophen 500 MG Oral Packet Take by mouth. Anoro Ellipta 62.5-25 MCG/ACT Inhalation Aerosol Powder Breath Activated (umeclidinium-vilanterol) Inhale 1 Puff by mouth. Levothyroxine Sodium 100 MCG Oral Tablet (Levoxyl) Take 1 Tablet by mouth in the morning. (at least30 min prior to breakfast or other meds). 90 Tablet 3 Potassium Chloride ER 10 MEQ Oral Tablet Extended Release Take 1 Tablet by mouth in the morning. 30Tablet 3 Furosemide 20 MG Oral Tablet (Lasix) Take 1 Tablet by mouth in the morning and 1 Tablet before bedtime. 30 Tablet 5 Ondansetron HCl 8 MG Oral Tablet (Zofran) Take 1 Tablet by mouth every 8 hours as needed for Nausea. 30 Tablet 3 Prochlorperazine Maleate 10 MG Oral Tablet (Compazine) Take 1 Tablet by mouth every 6 hours as needed for Nausea. 30 Tablet 3 Loratadine 10 MG Oral Tablet (Claritin) Take 1 tablet daily for 5 days starting the day before udenyca injection (start the last day of chemo) 20 Tablet 0 No current facility-administered medications for this visit. Family History Problem Relation Age of Onset Endocrine Disorder Mother hypothyroidism Cancer Mother uterine Other (crohn's) Mother Hypertension Father Diabetes Father No Past Hx Sister No Past Hx Sister Cancer Aunt (Unspecified) paternal;breast Other (Rheumatoid arthritis) Sister ? SLE Other (crohn's) Other neice Social History Socioeconomic History Marital status: Spouse name: Michael Number of children: 1 Years of education: Not on file Highest education level: Not on file Occupational History Occupation: [employer] 2 Comment: [employer] Tobacco Use Smoking status: Former Packs/day: 0.55 Years: 37.00 Additional pack years: 0.00 Total pack years: 20.35 Types: Cigarettes Smokeless tobacco: Never Tobacco comments: Pt quit smoking in November 2022. Former: 1/2 per day-started age 35. 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; Social Determinants of Health Financial Resource Strain: Not on file Food Insecurity: No Food Insecurity (01/24/2023) Hunger Vital Sign Worried About Running Out of Food in the Last Year: Never true Ran Out of Food in the Last Year: Never true Transportation Needs: Not on file Physical Activity: Not on file Stress: Not on file Social Connections: Not on file Intimate Partner Violence: Not on file Housing Stability: Not on file On Exam: LMP 06/14/1999 BP 104/68 (BP Site: Left Arm, BP Position: Sitting, BP Cuff Size: Pediatric) | Pulse 103 | Wt 40.6 kg (89 lb 8 oz) | LMP 06/14/1999 | SpO2 93% | BMI 15.73 kg/m | BSA 1.35 m Constitutional: Patient is alert, cooperative and oriented x 3. Thin built female, Patient is in noacute distress. HEENT: No icterus, mild pallor, Throat and pharynx normal. Sinuses are non-tender. Neck: Supple and without lymphadenopathy or masses. No JVD. No Palpable supraclavicular lymph nodes. Lungs: Emphysematous chest noted. Cardiovascular: Normal heart sounds, no murmurs.Regular rate and rhythm. Abdomen: Soft, nontender, no hepatomegaly, no splenomegaly. Bowel sounds are normal. Neurological: No gross focal neurological deficit; walks with a normal gait. Extremities: No finger clubbing, No cyanosis. No leg edema. Skin:: No skin rash. SPINE: No spinal or paraspinal tenderness. LABS: Blood workup done on 11/02/2022 at [facility]: -WBC 6700, H&H of 9.5/30, Platelet count 532577 -BUN/Creat: 26/0.53, Calcium 8.3 -normal LFT -stool for norovirus --> positive Blood workup done on 01/31/2023: -BUN/Creat: 21/0.8, Calcium 8.8 -AST 12, ALT less than 5, alkaline phosphatase 142, bilirubin level 0.7 -WBC 18,700, H&H of 11.7/37.5, Platelet count of 302269. IMAGING: PET-CT scan done on 11/21/2022: -1.1 x 1 cm left parotid nodule with SUV 7.5 -right supraclavicular lymph node measuring 2.1 x 4 cm SUV of 14.3 -multiple enlarged mediastinal lymph nodes with right paratracheal lymph node measuring 4.2 x 3.1 cm SUV of 16 New bilateral lower lobe opacities and nodules. -no suspicious finding noted in the abdomen or pelvis. No bone lesions. ASSESSMENT AND PLAN: 72-year-old female, who was admitted at [facility] on few occasions, overall generalized declining health, weight loss, fall, fractured left intertrochanteric femur, S/P surgical intervention for that in October 2022 Imaging study showed enlarged right supraclavicular lymph node, mediastinal lymph nodes, biopsy from the right cervical lymph node showed predominant small cell lung cancer small component of non-small cell lung cancer. Currently she is receiving etoposide and carboplatin chemotherapy, received 1 cycle of chemotherapy, overall tolerated It well, previously palpable right supraclavicular lymph node is no longer palpable. Reviewed blood workup done today, overall stable blood workup noted. Will proceed with 2nd cycle of chemotherapy with etoposide carboplatin as we planned She will receive prophylactic Pegfilgrastim Earlier we talked about combined chemoradiation treatment but the It would be very difficult for her to tolerate the treatment as well as she does not have a good family support other than her . Will continue with the chemotherapy treatment option at this time and the once her clinical condition improves, will consider for radiation treatment. Will see her in 3 weeks before the next cycle. Dr. Héctor Rodriguez Hem/Onc (This note was completed using the dictation program Fluency Direct. As such, there may be misspellings word substitutions, or other variations that should not change the essence of the clinical content of this encounter note. If there is need for further clarification, please direct questions to the provider listed above.) documented in this encounter Nursing Notes * Ray Gonzalez, MED ASSIST - 01/31/2023 12:57 PM EST Chief Complaint Patient presents with Re-Check Patient identified by name and date of . Do you have any concerns about pain management for today's visit? No Living Will or Advance Directive for Health Care as noted on problem list. My [facility] is a way you can talk to your provider online through e-mail. Would you like to sign up? I can activate it for you? ALREADY ACTIVE BP 104/68 (BP Site: Left Arm, BP Position: Sitting, BP Cuff Size: Pediatric) | Pulse 103 | Wt 40.6 kg (89 lb 8 oz) | LMP 06/14/1999 | SpO2 93% | BMI 15.73 kg/m | BSA 1.35 m Patient was instructed to not get up on the exam table/exam chair until directed and assisted by their provider; patient is to remain seated in the chair/ wheelchair/ exam table/ exam chair for fall prevention and safety reasons. Patient is aware to have assistance to step down off exam table/exam chair with personnel. Patient voiced full comprehension of instructions. Patient states that feet are swollen and painful. PT would like to see if she can get fluids today,it helps. documented in this encounter Plan of Treatment Upcoming Encounters Date Type Department Care Team (Late st Contact Info) Description 02/01/2023 1:30 PM EST Hem/Onc Treatment Hematology/Oncology Treatment, [place] [address] [address] Helene, Chair 7 Hem Onc Scenery [address] [facility] [place] [address] 02/02/2023 1:30 PM EST Hem/Onc Treatment Hematology/Oncology Treatment, [place] [address] [address] Helene, Chair 8 Hem Onc [facility] [address] [facility] [place] [address] 02/08/2023 1:15 PM EST Imaging [facility] 2nd Floor [facility], [place] [facility] [address] 02/14/2023 3:00 PM EST Office Visit Neurology [facility] [place] [address] [place] [address] [address] Sandhya Hanley MD [address] [facility] [place] [address] 02/21/2023 9:00 AM EST Laboratory Laboratory [facility] Helene [place] [address] [place] [phone] Helene, Lab [facility] [address] [facility] [place] [address] 02/21/2023 9:30 AM EST Office Visit Hematology/Oncology [facility] [place] [address] [place] [address] Jade Gaytan CRNP [address] [facility] [place] [address] 02/21/2023 10:00 AM EST Hem/Onc Treatment Hematology/Oncology Treatment, [place] [address] [place] [address] Park, Chair 3 Hem Onc Scenery [address] [facility] [place], [place] [address] 02/22/2023 11:30 AM EST Hem/Onc Treatment Hematology/Oncology Treatment, [place] [address] [place] [address] Helene, Chair 3 Hem Onc Scenery [address] [facility] [place] [address] 02/23/2023 11:30 AM EST Hem/Onc Treatment Hematology/Oncology Treatment, [address], [place] [address] 03/07/2023 1:30 PM EST Office Visit Urology, [facility] [address] [place] [address] Sahil Katz MD [address] [place] [address] [place] [address] 03/07/2023 2:40 PM EST Office Visit Podiatry [facility] [address] [place] [address] Juliana Vogt DPM [address] [place] [address] 03/09/2023 4:40 PM EST Office Visit Family Practice [facility] [address] [place] [address] Hayes Maurer, [address] [place] [address] 05/15/2023 3:00 PM EDT Office Visit Nutrition & Weight Management, [facility] [address] [place] [address] Preethi Fletcher PA-C [address] [place] [address] Scheduled Procedures Name Priority Associated Diagnoses Date/Ti [...] D LEVEL ONCE IN A LIFETIME-USE SMARTSET# [id number] Completed 08/02/2011, 04/24/2009, 06/25/2008, Additional history exists [...] Name Relationship Healthcare Agent Relationshi p Communication Michaeldory Katz Spouse Health Care Repr esentative (appointed verbally by patient or by statute hierarchy) Care Teams Pull Socket Assembler Relationship Specialty Start Date End Date Hayes Maurer DO [address] [place] [address] PCP - General Family Medicine 04/04/19 documented as of this encounter"
--- OUTSIDE RECORDS SUMMARY | 2023-02-27 12:54 | External Medical Summary | Summary of Care ---
Author Name Unknown Organization [facility] Address [address] [place] [address] Phone [phone] Care Team Providers Care Technology Program Manager Name Role Phone Hayes Maurer Primary Care Provider Reason for Visit * Reason Comments IV Therapy IV hydration * Episode Based Medications (Routine) - Authorized Specialty Diagnoses / Procedures Referred By Johanny t Referred To Contact Diagnoses Encounter for antineoplastic chemotherapy Small cell lung cancer (HCC) Procedures HI CARBOPLATIN INJECTION HI FOSAPREPITANT INJECTION HI ETOPOSIDE 10 MG INJ HI INJECTION, UDENYCA 0.5 MG Héctor Rodriguez MD [address] [place] [address] Anc Hem/Onc [address] [address] Referral ID Status Reason Start Date Expiration Date V isits Requested Visits Authorized [id number] Authorized 12/30/2022 03/05/2099 999 [id number] Encounter Details Date Type Department Care Team (Latest Contact Info) Description 01/13/2023 2:00 PM EST Hem/Onc Treatment Hematology/Oncolog y Treatment, [address] [address] Helene, Chair 3 Hem Onc [address] [address] Encounter for antineoplastic chemotherapy*; Small cell lung cancer (HCC); Chemotherapy induced nausea and vomiting; Encounter for prevention of neutropenia due to chemotherapy Allergies Active Allergy Reactions Criticality Noted Date Comments Morphine 03/26/1997 Shock, dyspnea Other reaction(s): shock, dspnea Neomycin 04/07/2013 documented as of this encounter (statuses as of 01/13/2023) Medications Medication Sig Dispensed Refills Start Date [...] as of this encounter (statuses as of 01/13/2023) Active Problems Problem Noted Date Diagnosed Date [...] as of this encounter (statuses as of 01/13/2023) Resolved Problems Problem Noted Date Diagnosed Date [...] as of this encounter (statuses as of 01/13/2023) Immunizations Name Administration Dates Next Due COVID-19 mRNA, LNP-s, No Pre serve, 2-Dose Series ([employer]) 03/04/2021,07/22/2020,07/01/2020 Pneumococcal Conjugate Vacc, 13 Valent (Prevnar) [...] Sign Reading Time Taken Comments Blood Pressure 119/77 01/13/2023 2:18 PM EST Pulse 67 01/13/2023 2:18 PM EST Temperature 36.7 C (98.1 F) 01/13/2023 2:18 PM ES T Respiratory Rate 18 01/13/2023 2:18 PM EST Oxygen Saturation - - Inhaled Oxygen Concentration - - Weight - - Height - - Body Mass Index - - documented in this encounter Nursing Notes * Elyssa Lord RN - 01/13/2023 4:21 PM EST Pt completed treatment without issues. IV removed. Goals: Pt will remain free from injury. Possible barriers to meeting goals: pt is a high fall risk Stability of the patient: Moderately stable - low risk of patient condition declining or worsening Summary regarding today's goals: Met: Pt remained free from injury during treatment today. Discharged in stable condition. JF assisted. * Elyssa Lord RN - 01/13/2023 2:18 PM EST Chair 9, hydration + Udenyca. Pt reports fatigue today, and an episode of diarrhea this morning. Ptasked about receiving Zofran IV today as it helped her "feel better" during treatment yesterday. Ptis taking Zofran at home, but stated her last dose was "in the middle of the night." Pt denies vomiting. Per Dr. Rodriguez, administered Zofran 4mg IVP today. PIV assessed for patency; NSS infusing. Safety and Risk for Injury Patient will remain free from injury. Ensure appropriate safety devices are available. Provide and maintain safe environment. documented in this encounter Plan of Treatment Upcoming Encounters Date Type Department Care Team (Late st Contact Info) Description 01/31/2023 7:45 AM EST Office Visit Hematology/Oncology [facility] [address] [place] [address] Héctor Rodriguez MD [address] [place] [address] 01/31/2023 12:30 PM EST Laboratory Laboratory [facility] [place] [address] [place] [phone] Helene, Lab Scenery [address] [facility] [place] [address] 01/31/2023 1:30 PM EST Hem/Onc Treatment [facility] [place] [facility] [address] Helene, Chair 4 Hem Onc Scenery [address] [facility] [place] [address] 02/01/2023 1:30 PM EST Hem/Onc Treatment Hematology/Oncology Treatment, [place] 200 [facility], [place] [address] Helene, Chair 7 Hem Onc Scenery [address] [facility] [place] [address] 02/02/2023 1:30 PM EST Hem/Onc Treatment Hematology/Oncology Treatment, [place] [facility] [address] Helene, Chair 5 Hem Onc Scenery [address] [facility] [place] [address] 02/08/2023 1:15 PM EST Imaging [facility] 2nd Floor Cardiology, [place] 132 [facility] [place] [address] 02/14/2023 3:00 PM EST Office Visit Neurology [facility] [place] [address] [place] [address] Sandhya Hanley MD [address] [place] [address] 03/07/2023 1:30 PM EST Office Visit Urology, [facility] [place] [address] Sahil Funk MD 27 [facility] [address] [place] [address] 03/09/2023 4:40 PM EST Office Visit Family Practice [facility] 132 [place] [address] Hayes Maurer DO [facility] [place] [address] 05/15/2023 3:00 PM EDT Office Visit Nutrition & Weight Management, [facility] 132 [place] [address] Preethi Fletcher PA-C [address] [place] [address] Scheduled Procedures Name Priority Associated Diagnoses Date/Ti [...] D LEVEL ONCE IN A LIFETIME-USE SMARTSET# [id number] Completed 08/02/2011, 04/24/2009, 06/25/2008, Additional history exists [...] neoplasm of bronchus and lung, unspecified site Chemotherapy induced nausea and vomiting Nausea with vomiting Encounter for prevention of neutropenia due to chemotherapy documented in this encounter Administered Medications Active Administered Medications - up to 3 most recent administrations Medication Order MAR Action Action Date Dose Rate Site hEParin 100 UNIT/ML Lock Flush inj 500 Units 500 Units (5 mL), IV Lock, PRN Other, IV Flush, Starting on Mon01/13/23 at 1445, Until 01/14/23 at 1444, For 24 hours, Do not flush if lock, PICC, or central line not in place; IV infusing or unable to flush. sodium chloride 0.9 % flush central line 10 mL 10 mL, IV Push, PRN Other, IV Flush, Starting on Mon01/13/23 at 1445, Until 01/14/23 at 1444, For 24 hours, Do not flush if lock, PICC, or central line not in place; IV infusing or unable to flush. Inactive Administered Medications - up to 3 most recent administrations Medication Order MAR Action Action Date Dose Rate Site NSS infusion FOR HYDRATION Intravenous, at 500 mL/hr Administer over 2 Hours, ONCE, 1 dose, On Mon01/13/23 at 1530 Start Infusion 01/13/2023 2:09 PM EST 1,000 mL 500 mL/hr ondansetron (Zofran) inj 4 mg 4 mg, IV Push, ONCE, On Mon01/13/23 at 1545, For 1 dose Given 01/13/2023 3:10 PM EST 4 mg Pegfilgrastim-cbqv (Udenyca) inj 6 mg 6 mg, Subcutaneous, ONCE, On Mon01/13/23 at 1445, For 1 dose Given 01/13/2023 4:03 PM EST 6 mg Arm Right Upper documented in this encounter Advance Directives Healthcare Agents on File Name Relationship Healthcare Agent Relationshi p Communication Michael Cifuentes [place] Spouse Health Care Repr esentative (appointed verbally by patient or by statute hierarchy) Care Teams Technology Program Manager Relationship Specialty Start Date End Date Hayes Maurer DO [address] [place] [address] PCP - General Family Medicine 04/04/19 documented as of this encounter
--- OUTSIDE RECORDS SUMMARY | 2023-02-27 12:54 | External Medical Summary | Summary of Care ---
Author Name Unknown Organization [facility] Address [address] [place] [address] Phone [phone] Care Team Providers Care Camera Systems Engineer Name Role Phone Hayes Maurer DO Primary Care Provider Encounter Details Date Type Department Care Team (Late st Contact Info) Description 01/07/2023 Orders Only Hematology/Oncology [facility] [address] [place] [address] Héctor Rodriguez MD [address] [place] [address] Small cell lung cancer (HCC)* Allergies Active Allergy Reactions Criticality Noted Date Comments Morphine 03/26/1997 Shock, dyspnea Other reaction(s): shock, dspnea Neomycin 04/07/2013 documented as of this encounter (statuses as of 01/07/2023) Medications Medication Sig Dispensed Refills Start Date [...] as of this encounter (statuses as of 01/07/2023) Active Problems Problem Noted Date Diagnosed Date [...] as of this encounter (statuses as of 01/07/2023) Resolved Problems Problem Noted Date Diagnosed Date [...] as of this encounter (statuses as of 01/07/2023) Immunizations Name Administration Dates Next Due COVID-19 mRNA, LNP-s, No Pre serve, 2-Dose Series ([employer]) 03/04/2021,07/22/2020,07/01/2020 Pneumococcal Conjugate Vacc, 13 Valent (Prevnar) [...] on file documented as of this encounter Progress Notes * Héctor Rodriguez MD - 01/07/2023 10:58 AM EDT Put an alteration of the plan for carboplatin AUC of 4. documented in this encounter Plan of Treatment Upcoming Encounters Date Type Department Care Team (Late st Contact Info) Description 01/10/2023 1:00 PM EST Hem/Onc Treatment Hematology/Oncology Treatment, [place] 200 [facility] [place] [address] Helene, Chair 6 Hem Onc Scenery [address] [place], [place] [address] 01/11/2023 2:00 PM EST Hem/Onc Treatment Hematology/Oncology Treatment, [place] 200 [facility] [place] [address] Helene, Chair 6 Hem Onc Scenery [address] [place], [place] [address] 01/12/2023 2:00 PM EST Hem/Onc Treatment Hematology/Oncology Treatment, [place] 200 [facility] [place] [address] Helene, Chair 4 Hem Onc Scenery [address] [place] [address] 02/08/2023 1:15 PM EST [facility] 132 [facility] [place] [address] 02/14/2023 3:00 PM EST Office Visit Neurology [facility] [address] [place], [place] [address] Sandhya Hanley MD [address] [place] [address] 03/07/2023 1:30 PM EST Office Visit Urology, [facility] 132 [facility] [place] [address] Sahil Funk MD [address] [place] [address] [place] [address] 03/09/2023 4:40 PM EST Office Visit Family Practice [facility] 132 [facility] [place] [address] Hayes Maurer, 132 [facility] [place] [address] 05/15/2023 3:00 PM EDT Office Visit Nutrition & Weight Management, [facility] [address] [address] Preethi Fletcher PA-C [address] [place] [address] Scheduled Procedures Name Priority Associated Diagnoses Date/Ti [...] D LEVEL ONCE IN A LIFETIME-USE SMARTSET# [id number] Completed 08/02/2011, 04/24/2009, 06/25/2008, Additional history exists [...] Healthcare Agent Relationshi p Communication Michael Cifuentes [place] Spouse Health Care Repr esentative (appointed verbally by patient or by statute hierarchy) Care Teams Camera Systems Engineer Relationship Specialty Start Date End Date Hayes Maurer DO [address] [place] [address] PCP - General Family Medicine 04/04/19 documented as of this encounter
--- OUTSIDE RECORDS SUMMARY | 2023-02-27 12:54 | External Medical Summary | Summary of Care ---
Author Name Unknown Organization [facility] Address [address] [place] [address] Phone [phone] Care Team Providers Care Metal Fabricator Apprentice Name Role Phone Hayes Maurer Primary Care Provider Reason for Visit * Reason Comments Chemotherapy Carbo/Etoposide C1D1 * Episode Based Medications (Routine) - Authorized Specialty Diagnoses / Procedures Referred By Johanny t Referred To Contact Diagnoses Encounter for antineoplastic chemotherapy Small cell lung cancer (HCC) Procedures IN CARBOPLATIN INJECTION IN FOSAPREPITANT INJECTION IN ETOPOSIDE 10 MG INJ IN INJECTION, UDENYCA 0.5 MG Héctor Rodriguez MD [address] [place] [address] Anc Hem/Onc Scenery [address] [address] Referral ID Status Reason Start Date Expiration Date V isits Requested Visits Authorized [id number] Authorized 12/30/2022 03/05/2099 999 99 Encounter Details Date Type Department Care Team (Latest Contact Info) Description 01/10/2023 1:00 PM EST Hem/Onc Treatment Hematology/Oncolog y Treatment, [address] [address] Helene, Chair 6 Hem Onc [address] [place] [address] Encounter for antineoplastic chemotherapy*; Small cell lung cancer (HCC) Allergies Active Allergy Reactions Criticality Noted Date Comments Morphine 03/26/1997 Shock, dyspnea Other reaction(s): shock, dspnea Neomycin 04/07/2013 documented as of this encounter (statuses as of 01/10/2023) Medications Medication Sig Dispensed Refills Start Date [...] as of this encounter (statuses as of 01/10/2023) Active Problems Problem Noted Date Diagnosed Date [...] as of this encounter (statuses as of 01/10/2023) Resolved Problems Problem Noted Date Diagnosed Date [...] as of this encounter (statuses as of 01/10/2023) Immunizations Name Administration Dates Next Due COVID-19 [...] Sign Reading Time Taken Comments Blood Pressure 123/72 01/10/2023 1:44 PM EST Pulse 80 01/10/2023 1:44 PM EST Temperature 36.7 C (98.1 F) 01/10/2023 1:44 PM ES T Respiratory Rate 18 01/10/2023 1:44 PM EST Oxygen Saturation 97% 01/10/2023 1:44 PM EST Inhaled Oxygen Concentration - - Weight - - Height - - Body Mass Index - - documented in this encounter Nursing Notes * Elyssa Lord RN - 01/10/2023 4:49 PM EST Functional status at today's visit: [...] symptoms or adverse side effects during treatment. At the completion of carboplatin infusion, pt c/o soreness at IV insertion site. Mild erythema noted, possible flare reaction. IV assessed for patency yielding brisk blood return; no signs of infiltration noted. IV discontinued due to localized erythema; new PIV established for Etoposide infusion. Dr. Rodriguez notified. Continued to monitor. Pt completed treatment without further issues. IV removed. Pt had no c/o pain at initial IV site; symptoms resolved. Goals: pt will remain free from injury. Possible barriers to meeting goals: risk of reaction, pt is a high fall risk Stability of the patient: Moderately stable - low risk of patient condition declining or worsening Summary regarding today's goals: Met: Pt remained free from injury during treatment today. Discharged in stable condition. Goals: Pt will demonstrate understanding. Possible barriers to meeting goals: anxiety re: starting treatment Stability of the patient: Moderately stable - low risk of patient condition declining or worsening Summary regarding today's goals: Met: Information re: treatment process and use of antiemetics reviewed with pt; pt verbalized understanding and asked appropriate questions. No coverage. * Elyssa Lord RN - 01/10/2023 1:45 PM EST Chair 6, Carbo/Etoposide C1D1. Pt ambulates into clinic unassisted with walker. Pt recently had surgery (Nov 2022) s/p hip fracture. Pt reports pain since surgery but states it is improving. At baseline, pt states appetite and energy level are stable. Pt reports recent intermittent diarrhea which she is managing with Imodium. Pt denies recent fevers/infection, bleeding, skin issues and mucositis. Pt reports feeling very anxious re: starting treatment. Reviewed medications/infusion process withpt; offered lorazepam for possible relief of anxiety and nausea. PIV established; NSS infusing. Safety and Risk for Injury Patient will remain free from injury. Ensure appropriate safety devices are available. Provide and maintain safe environment. Knowledge Deficit Patient and Caregiver will demonstrate understanding. Assess current knowledge base. Reinforce education. Teach at level of understanding. documented in this encounter Plan of Treatment Upcoming Encounters Date Type Department Care Team (Late st Contact Info) Description 01/11/2023 2:00 PM EST Hem/Onc Treatment Hematology/Oncology Treatment, [place] 200 [facility] [place] [address] Helene, Chair 6 Hem On[address] [place] [address] 01/12/2023 2:00 PM EST Hem/Onc Treatment Hematology/Oncology Treatment, [place] 200 [facility] [place] [address] Helene, Chair [address] [facility] 200 [facility] [place] [address] 02/08/2023 1:15 PM EST Imaging [facility] 2nd Floor Cardiology, [place] 132 [facility] [place] [address] 02/14/2023 3:00 PM EST Office Visit Neurology [facility] [address] [place] [address] Sandhya Hanley MD 200 [facility] [place] [address] 03/07/2023 1:30 PM EST Office Visit Urology, [facility] 132 [facility] [place] [address] Sahil Funk MD [address] [facility] [address] [place] [address] 03/09/2023 4:40 PM EST Office Visit Family Practice [facility] 132 [facility] [place] [address] Hayes Maurer DO [facility] [place] [address] 05/15/2023 3:00 PM EDT Office Visit Nutrition & Weight Management, [facility] 132 [facility] [place] [address] Preethi Fletcher PA-C [facility] [place] [address] Scheduled Procedures Name Priority Associated Diagnoses Date/Ti [...] D LEVEL ONCE IN A LIFETIME-USE SMARTSET# [id number] Completed 08/02/2011, 04/24/2009, 06/25/2008, Additional history exists [...] ONCE PRN Other, Hypersensitivity Reaction, Starting on Mon01/10/23 at 1325, Until Mon01/11/23 at 1324, For 24 hours EPINEPHrine 1 MG/ML inj 0.3 mg 0.3 mg, Intramuscular, ONCE PRN Other, Hypersensitivity Reaction or Anaphylaxis, Starting on Mon01/10/23 at 1325, Until Mon01/11/23 at 1324, For 24 hours hEParin 100 UNIT/ML Lock Flush inj 500 Units 500 Units (5 mL), IV Lock, PRN Other, IV Flush, Starting on Mon01/10/23 at 1325, Until Mon01/11/23 at 1324, For 24 hours, Do not flush if lock, PICC, or central line not in place; IV infusing or unable to flush. Hydrocortisone Sod Suc (PF) (Solu-Cortef) inj 100 mg 100 mg, IV Push, ONCE PRN Other, Hypersensitivity Reaction, Starting on Mon01/10/23 at 1325, Until Mon01/11/23 at 1324, For 24 hours LORAzepam (Ativan) tab 0.5 mg 0.5 mg, Oral, ONCE PRN Anxiety, Nausea, Starting on Mon01/10/23 at 1430, Until Discontinued Given 01/10/2023 1:38 PM EST 0.5 mg NSS infusion Intravenous, at 50 mL/hr, PRN, Starting on Mon01/10/23 at 1430, Until Discontinued, KVO Start Infusion 01/10/2023 1:30 PM EST 50 mL/hr oxygen GAS Inhalation, OXYGEN, First dose on Mon01/10/23 at 1600, Until Discontinued, Device/Managed by: Low [...] Push, PRN Other, IV Flush, Starting on Mon01/10/23 at 1325, Until Mon01/11/23 at 1324, For 24 hours, Do not flush if lock, PICC, or central line not in place; IV infusing or unable to flush. Inactive Administered Medications - up to 3 most recent administrations Medication Order MAR Action Action Date Dose Rate Site CARBOplatin (Paraplatin) 298 mg in D5W 250 mL infusion 298 mg (rounded from 297.6 mg, Target AUC = 4), IV Piggyback, at 500 mL/hr Administer over 30 Minutes, PROTECT FROM LIGHT (Max Creatinine Clearance at 125 ml/min for calculating AUC dose), ONCE, 1 dose, On Mon01/10/23 at 1500 Start Infusion 01/10/2023 2:15 PM EST 298 mg 500 mL/hr etoposide (VEPESID) 140 mg in NSS 500 mL infusion 140 mg (100 mg/m2 1.4 m2 Treatment Plan BSA from Recorded weight), IV Piggyback, ONCE, 1 dose, On Mon01/10/23 at 1500, Administer over 60 Minutes, Recommended concentration is less than or equal to 0.4 mg/mL. If concentration is greater than 0.4 mg/mL recommend to administer through 0.22 micron low protein binding filter. Start Infusion 01/10/2023 3:10 PM EST 140 mg 500 mL/hr fosaprepitant Dimeglumine (Emend) 150 mg, ondansetron (Zofran) 16 mg, dexamethasone sodium phosphate 12 mg in NSS 250 mL Infusion 150 mg, IV Piggyback, ONCE, 1 dose, On Mon01/10/23 at 1430, Administer over 30 Minutes, Give 30 minutes prior to chemotherapy. Infuse over 30 minutes. Start Infusion 01/10/2023 1:31 PM EST 150 mg 500 mL/hr documented in this encounter Advance Directives Healthcare Agents on File Name Relationship Healthcare Agent Relationshi p Communication Michael Cifuentes [facility] Health Care Repr esentative (appointed verbally by patient or by statute hierarchy) Care Teams Metal Fabricator Apprentice Relationship Specialty Start Date End Date Hayes Maurer DO [address] [place] [address] PCP - General Family Medicine 04/04/19 documented as of this encounter
--- OUTSIDE RECORDS SUMMARY | 2023-02-27 12:54 | External Medical Summary | Summary of Care ---
Author Name Unknown Organization [facility] Address [address] [place] [address] Phone [phone] Care Team Providers Care Ocularist Name Role Phone Hayes Maurer DO Primary Care Provider Reason for Visit * Reason Onset Date Comments Medication Problem 12/15/2022 Encounter Details Date Type Department Care Team (Late st Contact Info) Description 12/15/[address] [facility] [address] [place] [address] Hayes Maurer DO [address] [place] [address] Medication Problem Allergies Active Allergy Reactions Criticality Noted Date Comments Morphine 03/26/1997 Shock, dyspnea Other reaction(s): shock, dspnea Neomycin 04/07/2013 documented as of this encounter (statuses as of 01/12/2023) Medications Medication Sig Dispensed Refills Start Date End Date Status Oxybutynin Chloride ER 5 MG Oral Tablet Extended Release 24 Hour (Ditropan XL) Take 1 Tablet by mouth in the morning. 30 Tablet 6 09/08/19 23 Active Metoprolol Succinate ER 25 MG Oral Tablet Extended Release 24 Hour (toPROL XL)Indications:SVT (supraventricular tachycardia) Take 0.5 Tablets by mouth in the morning. 45 Tablet 3 10/07/19 23 Active Acetaminophen 500 MG Oral Packet Take by mouth. 0 Active Anoro Ellipta 62.5-25 MCG/ACT Inhalation Aerosol Powder Breath Activated (umeclidinium-shantel nterol) Inhale 1 Puff by mouth. 0 Active Levothyroxine Sodium 100 MCG Oral Tablet (Levoxyl) Take 1 Tablet by mouth in the morning. (at least 30 min prior to breakfast or other meds). 90 Tablet 3 11/18/19 Active Potassium Chloride ER 10 MEQ Oral Tablet Extended Release Take 1 Tablet by mouth in the morning. 30 Tablet 3 12/17/19 23 Active Pantoprazole Sodium 40 MG Oral Tablet Delayed Release (Protonix)Indicati ons:Esophagitis Take 1 Tablet by mouth in the morning. 90 Tablet 3 10/07/19 23 023 Discontinued Ipratropium-Albute rol 0.5-2.5 (3) MG/3ML Inhalation Solution (Duoneb)Indication s:COPD, group B, by GOLD 2017 classification (HCC) Inhale 3 mL via nebulizer every 6 hours as needed for Cough, Shortness of Breath or Wheezing. 360 mL 3 10/07/19 23 023 Discontinued(Me dication List Clean Up) Vancomycin HCl 125 MG Oral Capsule (Vancocin) Taper: 125mg by mouth four times daily x 2 weeks, 125mg by mouth twice daily x 1 week, 125mg by mouth daily x 1 week, 125mg by mouth every other day x 2 weeks. 84 Capsule 0 10/14/19 23 023 Discontinued Furosemide 20 MG Oral Tablet (Lasix) Take 1 Tablet by mouth in the morning and 1 Tablet before bedtime. 0 Discontinued(Re fill) Potassium Chloride Alba ER 20 MEQ Oral Tablet Extended Release Take 1 Tablet by mouth in the morning. 0 Discontinued(Me dication List Clean Up) Famotidine 40 MG Oral Tablet (Pepcid) Take 1 Tablet by mouth in the morning. 0 023 Discontinued(Me dication List Clean Up) D5W 5% SOLN 50 mL with hEParin 1000 UNIT/ML SOLN 5,000 Units Infuse intravenously continuous. 0 Discontinued(Me dication List Clean Up) levoFLOXacin 750 MG Oral Tablet (Levaquin) Take 1 Tablet by mouth in the morning. 0 023 Discontinued Ondansetron 4 MG Oral Film (Zuplenz) Take by mouth. 0 023 Discontinued(Me dication List Clean Up) Docusate Sodium 100 MG Oral Capsule (Colace) Take 1 Capsule by mouth in the morning and 1 Capsule before bedtime. 0 023 Discontinued(Me dication List Clean Up) Magnesium Hydroxide 400 MG/5ML Oral Suspension (Milk of Magnesia) Take by mouth daily as needed for Constipation. 0 023 Discontinued(Me dication List Clean Up) Bisacodyl 10 MG Rectal Suppository (Dulcolax) Administer 1 Suppository into the rectum in the morning. 0 023 Discontinued(Me dication List Clean Up) Fleet Enema Rectal Enema Administer into the rectum. 0 023 Discontinued(Me dication List Clean Up) Sennosides 8.6 MG Oral Tablet (Senokot) Take 1 Tablet by mouth in the morning and 1 Tablet before bedtime. 0 Discontinued Polyethylene Glycol 3350 17 GM Oral Packet (MiraLax) Take 1 Packet by mouth in the morning. 0 023 Discontinued(Me dication List Clean Up) Saccharomyces boulardii 250 MG Oral Capsule (Florastor) Take 1 Capsule by mouth in the morning and 1 Capsule before bedtime. 0 023 Discontinued documented as of this encounter (statuses [...] encounter Miscellaneous Notes * Telephone Encounter - Yola Carver CPhT - 01/12/2023 7:51 AM EST pt calling to check on status of potassium. Advised script is at the pharmacy Thank you, Yola Carver CphT Insurance Agent III [facility]) (formerly Telepharmacy) 01/12/2023,7:51 AM * Telephone Encounter - Rocio Dawn OSA - 12/16/2022 2:30 PM EDT Patient has been notified of the message. Patient has no further questions. * Addendum Note - Zeeshan Harman MD - 12/16/2022 2:23 PM EDTAddended by: ZEESHAN HARMAN on: 12/16/2022 02:23 PM Modules accepted: Orders * Telephone Encounter - Zeeshan Harman MD - 12/16/2022 2:22 PM EDT Switched to tab--apparently taking 10mEq daily left message for pt. * Telephone Encounter - Christine Parra LPN - 12/16/2022 1:51 PM EDT Spoke with pt and she needs her Potassium 10 paradise sent to [facility] as she can not swallow the capsules, will send over tablets for pt. When checking on the Potassium it appears she had an increase in the dose back in July and should be on 20 meq daily. Will send to covering provider to determine dose and to send over new script with tablets and not capsules. * Telephone Encounter - Clarice Marin OSA - 12/16/2022 11:56 AM EDT Pt calling very mad. Says she wants to talk to office. Transferring to office. * Telephone Encounter - Kinza Zaragoza multimedia coordinator - 12/15/2022 5:46 PM EDT Pt calling Some dr? order her Potassium Chloride and she can not swallow capsules I called pharmacy to find out what dr order these as they are not on her chart. RX was sent by DR Monica Escalante She can not take capsules Please have our dr write a new rx Potassium Chloride Alba ER 10 meq oral tablets extended Take one tablet every day Please advise pt if you feel she needs this This has to be a white round tablet as she can not swallow large capsules Please advise Thank you for your assistance Kinza Zaragoza Insurance Agent II [facility] ([facility]) (Formerly Telepharmacy) 12/15/2022,5:53 PM documented in this encounter Plan of Treatment Upcoming Encounters Date Type Department Care Team (Late st Contact Info) Description 01/12/2023 2:00 PM EST Hem/Onc Treatment [address]ematology[address] [address] Helene, Chair 4 Hem Onc [place] [address] [facility] [place] [address] 01/31/2023 12:30 PM EST Laboratory Laboratory [facility] [place]ene [place] [address] [place] [address] Helene, Lab [facility] 200 [facility] [place] [address] 01/31/2023 1:30 PM EST Hem/Onc Treatment [facility], [place] [facility] [address] Helene, Chair 4 Hem [facility]c [facility] [address] [facility] [place] [address] 02/01/2023 9:15 AM EST Office Visit Hematology/Oncology [facility] [place] [address] [place] [address] Héctor Rodriguez MD [address] [place] [address] [address] 02/01/2023 9:45 AM EST Hem/Onc Treatment Hematology/Oncology Treatment, [place] 200 [place] [address] Helene, Chair 3 Hem Onc [place] [address] [facility] [place] [address] 02/02/2023 1:30 PM EST Hem/Onc Treatment Hematology/Oncology Treatment, [place] 200 [place] [address] Helene, Chair 5 Hem Onc [place] [address] [facility] [place] [address] 02/08/2023 1:15 PM EST Imaging [facility] 2nd Floor Cardiology, [place] 132 [facility] [place] [address] 02/14/2023 3:00 PM EST Office Visit [facility] [address] [place] [address] Sandhya Hanley MD [address] [place] [address] 03/07/2023 1:30 PM EST Office Visit Urology, [facility] 132 [facility] [place] [address] Sahil Funk MD [address] [place] [address] [place] [address] 03/09/2023 4:40 PM EST Office Visit Family Practice [facility] 132 [facility] [place] [address] Hayes Maurer DO 132 [facility] [place] [address] 05/15/2023 3:00 PM EDT Office Visit Nutrition & Weight Management, [facility] [address] [place] [address] Preethi Fletcher PA-C [address] [place] [address] Scheduled Procedures Name Priority Associated Diagnoses Date/Ti [...] D LEVEL ONCE IN A LIFETIME-USE SMARTSET# [id number] Completed 08/02/2011, 04/24/2009, 06/25/2008, Additional history exists [...] Relationship Healthcare Agent Relationshi p Communication Michaeldory Funk Spouse Health Care Repr esentative (appointed verbally by patient or by statute hierarchy) Care Teams Ocularist Relationship Specialty Start Date End Date Hayes Maurer DO [address] [place] [address] PCP - General Family Medicine 04/04/19 documented as of this encounter
--- OUTSIDE RECORDS SUMMARY | 2023-02-27 12:54 | External Medical Summary | Summary of Care ---
Author Name Unknown Organization [facility] Address [address] [place] [address] Phone [phone] Care Team Providers Care Size Marker Name Role Phone Hayes Maurer DO Primary Care Provider Reason for Referral * Evaluate & Treat - Unlimited Visits (Within 10 days (routine)) - Pending Review Specialty Diagnoses / Procedures Referred By Johanny garcia Referred To Contact Podiatry Diagnoses Numbness and tingling of foot Hayes Maurer DO [address] [place] [address] Referral ID Status Reason Start Date Expiration Date Visits Requested Visits Authorized [id number] Pending Review Specialty Services Required [phone] Question Answer Referral Priority Within 10 days (routine) Where should this appointment be scheduled? External Which condition are you referring this patient for? General Podiatry/Other Reason for Visit * Reason Onset Date Comments Referral 01/18/2023 Podiatry Encounter Details Date Type Department Care Team (Late st Contact Info) Description 01/18/2023 Telephone Family Practice [facility] [address] [place] [address] Hayes Maurer DO [address] [place] [address] Referral (Podiatry ) Allergies Active Allergy Reactions Criticality Noted Date Comments Morphine 03/26/1997 Shock, dyspnea Other reaction(s): shock, dspnea Neomycin 04/07/2013 documented as of this encounter (statuses as of 01/19/2023) Medications Medication Sig Dispensed Refills Start Date [...] as of this encounter (statuses as of 01/19/2023) Active Problems Problem Noted Date Diagnosed Date [...] as of this encounter (statuses as of 01/19/2023) Resolved Problems Problem Noted Date Diagnosed Date [...] as of this encounter (statuses as of 01/19/2023) Immunizations Name Administration Dates Next Due COVID-19 mRNA, LNP-s, No Pre serve, 2-Dose Series ([email or web address]) 03/04/2021,07/22/2020,07/01/2020 Pneumococcal Conjugate Vacc, 13 Valent (Prevnar) [...] encounter Miscellaneous Notes * Telephone Encounter - Ambar Maurer - 01/19/2023 1:12 PM EST Faxed * Telephone Encounter - Hayes Maurer DO - 01/19/2023 1:04 PM EST Signed Thank you * Telephone Encounter - Cheryl York OSA - 01/18/2023 3:42 PM EST Pt is asking for a call to let her know if/ when this is done. She will need this faxed to Dr Moise's office. Pt states she uses a walker so if she does not answer the phone, please leave a message. Thank you! * Telephone Encounter - Cheryl York OSA - 01/18/2023 3:40 PM EST Has the patient been seen for this problem? (Y/N)?: yes If No, an appt needs to be scheduled before a referral will be placed (exception: proceed with referral request if referral request is for a yearly routine appointment with speciality) Patient Name: Kaci Funk Patient Primary care provider: Hayes Maurer, DO Does this need to be an insurance referral (Y/N)?: yes Medicare and [facility] care If Yes, does the insurance referral need to be placed into the [employer] system?no Name of preferred specialist: Dr Moise Type of specialist: podiatry Location of specialist: [facility] Phone #: [phone] Specialist's Fax #: na Reason for visit: Numbness of both feet Date of visit: 02/09/2023 documented in this encounter Plan of Treatment Upcoming Encounters Date Type Department Care Team (Late st Contact Info) Description 01/31/2023 7:45 AM EST Office Visit Hematology/Oncology [facility] [address] [place] [address] Héctor Rodriguez MD [address] [place] [address] 01/31/2023 12:30 PM EST Laboratory Laboratory [facility] [place] [address] [place] [id number] Hel[place], Lab [facility] [address] [facility] [place] [address] 01/31/2023 1:30 PM EST Hem/Onc Treatment Hematology/Oncology Treatment, [place] 200 [facility], [place] [address] Helene, Chair 4 Hem Onc [place] [address] [place] [address] 02/01/2023 1:30 PM EST Hem/Onc Treatment Hematology[facility]Oncology Treatment, [place] [facility] [address] Helene, Chair 7 Hem Onc [place] [address] [place] [address] 02/02/2023 1:30 PM EST Hem/Onc Treatment Hematology/Oncology Treatment, [place] [facility] [address] Helene, Chair 5 Hem Onc [place] [address] [place] [address] 02/08/2023 1:15 PM EST Imaging [facility] 2nd Floor Cardiology, [place] 132 [facility] [place] [address] 02/14/2023 3:00 PM EST Office Visit Neurology [facility] 200 [facility] [address] Sandhya Hanley MD 200 [facility] [place] [address] 03/07/2023 1:30 PM EST Office Visit Urology, [facility] 132 [facility] [place] [address] Sahil Funk MD 27 [facility] [address] [place] [address] 03/09/2023 4:40 PM EST Office Visit Family Practice [facility] 132 [place] [address] Hayes Maurer DO 132 [place] [address] 05/15/2023 3:00 PM EDT Office Visit Nutrition & Weight Management, [facility] 132 [place] [address] Preethi Fletcher PA-C 132 [place] [address] Scheduled Procedures Name Priority Associated Diagnoses Date/Ti me COLONOSCOPY FLEXIBLE PROXIMA L DIAGNOSTIC Recall History of colon polyps Special screening for malignant neoplasms, colon Scheduled Referrals Name Type Priority Associated Diagnoses Orde r Schedule PODIATRY REFERRAL OP Referral Within 10 days (routine) Numbness and tingling of foot Ordered: 01/19/2023 Health Maintenance Due Date Last Done Comments [...] D LEVEL ONCE IN A LIFETIME-USE SMARTSET# [id number] Completed 08/02/2011, 04/24/2009, 06/25/2008, Additional history exists [...] patient or by statute hierarchy) Care Teams Size Marker Relationship Specialty Start Date End Date Hayes Maurer DO [address] [place] [address] PCP - General Family Medicine 04/04/19 documented as of this encounter
--- OUTSIDE RECORDS SUMMARY | 2023-02-27 12:54 | External Medical Summary | Summary of Care ---
Author Name Unknown Organization [facility] Address [address] [place] [address] Phone [phone] Care Team Providers Care Slubber Machine Operator Name Role Phone Hayes Mauerr Primary Care Provider Reason for Visit * Reason Comments Chemotherapy C1/D2 - Etoposide * Episode Based Medications (Routine) - Authorized Specialty Diagnoses / Procedures Referred By Johanny t Referred To Contact Diagnoses Encounter for antineoplastic chemotherapy Small cell lung cancer (HCC) Procedures [place] CARBOPLATIN INJECTION [place] FOSAPREPITANT INJECTION [place] ETOPOSIDE 10 MG INJ [place] INJECTION, UDENYCA 0.5 MG Héctor Rodriguez MD 200 [facility] [place] [address] Anc Hem/Onc [facility] [address] [address] Referral ID Status Reason Start Date Expiration Date V isits Requested Visits Authorized [id number] Authorized 12/30/2022 03/05/2099 [id number] Encounter Details Date Type Department Care Team (Latest Contact Info) Description 01/11/2023 2:00 PM EST Hem/Onc Treatment Hematology/Oncolog y Treatment, [address] [address] Helene, Chair 6 Hem On[address] [place] [address] Encounter for antineoplastic chemotherapy*; Small cell lung cancer (HCC) Allergies Active Allergy Reactions Criticality Noted Date Comments Morphine 03/26/1997 Shock, dyspnea Other reaction(s): shock, dspnea Neomycin 04/07/2013 documented as of this encounter (statuses as of 01/11/2023) Medications Medication Sig Dispensed Refills Start Date [...] as of this encounter (statuses as of 01/11/2023) Active Problems Problem Noted Date Diagnosed Date [...] as of this encounter (statuses as of 01/11/2023) Resolved Problems Problem Noted Date Diagnosed Date [...] as of this encounter (statuses as of 01/11/2023) Immunizations Name Administration Dates Next Due COVID-19 [...] Sign Reading Time Taken Comments Blood Pressure 114/70 01/11/2023 2:05 PM EST Pulse 62 01/11/2023 2:05 PM EST Temperature 36 C (96.8 F) 01/11/2023 2:05 PM EST Respiratory Rate 16 01/11/2023 2:05 PM EST Oxygen Saturation 95% 01/11/2023 2:05 PM EST Inhaled Oxygen Concentration - - Weight - - Height - - Body Mass Index - - documented in this encounter Nursing Notes * Myriam Dawson RN - 01/11/2023 4:55 PM EST Chair 8. IV inserted. Patient overall says she is not feeling too great today -- feeling queasy and having a lot of acid reflux and patient says she is feeling lightheaded. BP WNL. Communicated this with Dr. Rodriguez -- will give 1L NSS over 2 hours today. Patient also expressed shewould rather have IVP Zofran with her treatments as opposed to PO Zofran on her days [address] Rodriguez, this is okay and patient can receive 8 mg IVP Zofran instead on her days 2 and 3. Chemo agents Etoposide, day 2/3 Appetite not great, pt says everything tastes sour and she has had a lot of reflux which makes it worse Nausea/Vomiting queasy today, see above, no vomiting Diarrhea no diarrhea today, last BM yesterday and pt states she had diarrhea/loose stools before her chemo yesterday Constipation no Mucositis no Fatigue more fatigued today, yes Bleeding no Infection no Rash no Numbness tingling no changes Pain no complaints at this time Radiation no ABN Labs WNL for tx, done yesterday, none needed today Alt in Tx: N/A Return in 1 day Safety and Risk for Injury Patient will remain free from injury. Ensure appropriate safety devices are available. Provide and maintain safe environment. About 1 hour into patient's chemo, patient started to c/o feeling a lot worse and her "abdomen being so big." RN assessed abdomen and abdomen appears distended. Patient c/o pain in her abdomen and says this is what it looked like this morning when she woke up and typically her abdomen is flat. Dr. Rodriguez came to treatment chair to assess at this time. Patient continuing to burp up "sour stuff" perpt and having a lot of reflux still. RN educated patient to try taking 20 mg Pepcid per instructions on the drug label is she has this or gets this OTC to hopefully help with the burning/reflux she was having. Patient communicated understanding and this was written down for patient and she took paper home with this medication on it. Per Dr. Rodriguez, LRQ abdominal tenderness with palpation and abdominal distention present -- will monitor tomorrow and see how patient feels but instructed patient that if the pain is worse or she starts feeling worse, to go to ER. Patient communicated understanding. Goals: Patient will remain free from injury. Possible barriers to meeting goals: ambulating with pole Stability of the patient: Moderately stable - low risk of patient condition declining or worsening Summary regarding today's goals: Met: pt remained free of harm today Patient tolerated treatment well without any acute issues or problems. IV left in place for tx tomorrow. Patient left facility in stable condition and denied any further needs. documented in this encounter Plan of Treatment Upcoming Encounters Date Type Department Care Team (Late st Contact Info) Description 01/12/2023 2:00 PM EST Hem/Onc Treatment Hematology/Oncology Treatment, [place] [address] [place] [address] Park, Chair 4 Hem Onc Scenery [address] [place] [address] 01/31/2023 12:30 PM EST Laboratory Laboratory [facility] Trudy Narayan [address] [place] [phone] [place], Lab [facility] 200 [facility] [place] [address] 01/31/2023 1:30 PM EST Hem/Onc Treatment Hematology/Oncology Treatment, [place] 200 [place] [address] Helene, Chair 4 Hem Onc Scenery [address] [place], [place] [address] 02/01/2023 9:15 AM EST Office Visit Hematology/Oncology [facility] [address] [place], [place] [address] Héctor Rodriguez MD [address] [place], [place] [address] 02/01/2023 9:45 AM EST Hem/Onc Treatment Hematology/Oncology Treatment, [place] 200 [facility], [place] [address] Helene, Chair 3 Hem Onc Scenery [address] [place], [place] [address] 02/02/2023 1:30 PM EST Hem/Onc Treatment Hematology/Oncology Treatment, [place] 200 [facility], [place] [address] Helene, Chair 5 Hem Onc Scenery [address] [place], [place] [address] 02/08/2023 1:15 PM EST Imaging [facility] 2nd Floor Cardiology, [place] [facility] [address] 02/14/2023 3:00 PM EST Office Visit Neurology [facility] [address] [place], [place] [address] Sandhya Hanley MD [address] [place], [place] [address] 03/07/2023 1:30 PM EST Office Visit Urology, [facility] [address] [place] [address] Sahil Funk MD [address] [facility] [place] [address] [place] [address] 03/09/2023 4:40 PM EST Office Visit Family Practice [facility] [address] [place] [address] Hayes Maurer DO [address] [place] [address] 05/15/2023 3:00 PM EDT Office Visit Nutrition & Weight Management, [facility] [address] [place] [address] Preethi Fletcher PA-C [address] [place] [address] Scheduled Procedures Name Priority Associated Diagnoses Date/Ti [...] D LEVEL ONCE IN A LIFETIME-USE SMARTSET# [id number] Completed 08/02/2011, 04/24/2009, 06/25/2008, Additional history exists [...] ONCE PRN Other, Hypersensitivity Reaction, Starting on Mon01/11/23 at 1441, Until Kendy 01/12/23 at 1440, For 24 hours EPINEPHrine 1 MG/ML inj 0.3 mg 0.3 mg, Intramuscular, ONCE PRN Other, Hypersensitivity Reaction or Anaphylaxis, Starting on Mon01/11/23 at 1441, Until Kendy 01/12/23 at 1440, For 24 hours hEParin 100 UNIT/ML Lock Flush inj 500 Units 500 Units (5 mL), IV Lock, PRN Other, IV Flush, Starting on Mon01/11/23 at 1441, Until Kendy 01/12/23 at 1440, For 24 hours, Do not flush if lock, PICC, or central line not in place; IV infusing or unable to flush. Given 01/11/2023 4:34 PM EST 500 Units Hydrocortisone Sod Suc (PF) (Solu-Cortef) inj 100 mg 100 mg, IV Push, ONCE PRN Other, Hypersensitivity Reaction, Starting on Mon01/11/23 at 1441, Until Kendy 01/12/23 at 1440, For 24 hours LORAzepam (Ativan) tab 0.5 mg 0.5 mg, Oral, ONCE PRN Anxiety, Nausea, Starting on Mon01/11/23 at 1545, Until Discontinued NSS infusion Intravenous, at 50 mL/hr, PRN, Starting on Mon01/11/23 at 1545, Until Discontinued, KVO Start Infusion 01/11/2023 2:30 PM EST 50 mL/hr oxygen GAS Inhalation, OXYGEN, First dose on Mon01/11/23 at 1600, Until Discontinued, Device/Managed by: Low [...] Push, PRN Other, IV Flush, Starting on Mon01/11/23 at 1441, Until Kendy 01/12/23 at 1440, For 24 hours, Do not flush if lock, PICC, or central line not in place; IV infusing or unable to flush. Given 01/11/2023 4:34 PM EST 10 mL Inactive Administered Medications - up to 3 most recent administrations Medication Order MAR Action Action Date Dose Rate Site etoposide (VEPESID) 140 mg in NSS 500 mL infusion 140 mg (100 mg/m2 1.4 m2 Treatment Plan BSA from Recorded weight), IV Piggyback, ONCE, 1 dose, On Mon01/11/23 at 1615, Administer over 60 Minutes, Recommended concentration is less than or equal to 0.4 mg/mL. If concentration is greater than 0.4 mg/mL recommend to administer through 0.22 micron low protein binding filter. Start Infusion 01/11/2023 3:32 PM EST 140 mg 500 mL/hr NSS infusion FOR HYDRATION Intravenous, at 500 mL/hr Administer over 2 Hours, ONCE, 1 dose, On Mon01/11/23 at 1530 Start Infusion 01/11/2023 2:30 PM EST 1,000 mL 500 mL/hr ondansetron (Zofran) inj 8 mg 8 mg, IV Push, ONCE, On Mon01/11/23 at 1530, For 1 dose Given 01/11/2023 2:48 PM EST 8 mg documented in this encounter Advance Directives Healthcare Agents on File Name Relationship Healthcare Agent Relationshi p Communication Michael Funk Spouse Health Care Repr esentative (appointed verbally by patient or by statute hierarchy) Care Teams Slubber Machine Operator Relationship Specialty Start Date End Date Hayes Maurer DO [address] [place] [address] PCP - General Family Medicine 04/04/19 documented as of this encounter
--- OUTSIDE RECORDS SUMMARY | 2023-02-27 12:54 | External Medical Summary | Summary of Care ---
Author Name Unknown Organization [facility] Address [address] [place] [address] Phone [phone] Care Team Providers Care Plant Protection Guard Name Role Phone Hayes Maurer Primary Care Provider Reason for Visit * Reason Onset Date Comments Medication Refill 01/06/2023 Encounter Details Date Type Department Care Team (Late st Contact Info) Description 01/06/2023 Refill Hematology/Oncology Treatment, [place] [address] [place] [address] Addison Rodriguez MD [address] [place] [address] Small cell lung cancer (HCC)* Allergies Active [...] for Nausea. 30 Tablet 3 01/06/2023 Active documented as of this encounter [...] mRNA, LNP-s, No Pre serve, 2-Dose Series (Bloxr) 03/04/2021,07/22/2020,07/01/2020 Hepatitis B Vaccine 03/26/1997 Pneumococcal Conjugate [...] as of this encounter Miscellaneous Notes * Addendum Note - Pili Bucio RN - 01/06/2023 4:08 PM EDTAddended by: PILI BUCIO on: 01/06/2023 04:08 PM Modules accepted: Orders * Telephone Encounter - Pili Bucio RN - 01/06/2023 4:08 PM EDT Pended claritin * Telephone Encounter - Charlene Lujan LPN - 01/06/2023 3:50 PM EDTSigned Prescriptions: Disp Refills Ondansetron HCl 8 MG Oral Tablet (Zofran) 30 Tab*3 Sig: Take 1 Tablet by mouth every 8 hours as needed for Nausea.Authorizing Provider: ADDISNO RODRIGUEZ Prochlorperazine Maleate 10 MG Oral Tablet*30 Tab*3 Sig: Take 1 Tablet by mouth every 6 hours as needed for Nausea.Authorizing Provider: ADDISON RODRIGUEZ * Telephone Encounter - Addison Rodriguez MD - 01/06/2023 3:47 PM EDT E-prescribed Addison Rodriguez MD Hem/Onc * Telephone Encounter - Pili Bucio RN - 01/06/2023 2:59 PM EDT Pended zofran and compazine. documented in this encounter Plan of Treatment Upcoming Encounters Date Type Department Care Team (Late st Contact Info) Description 01/10/2023 1:00 PM EST Hem/Onc Treatment Hematology/Oncology Treatment, [place] [address] [place] [address] Helene, Chair 6 Hem Onc Scenery [address] [place] [address] 01/11/2023 2:00 PM EST Hem/Onc Treatment Hematology/Oncology Treatment, [place] 200 [place] [address] Park, Chair 6 Hem Onc Scenery 200 [facility] [place] [address] 01/12/2023 2:00 PM EST Hem/Onc Treatment [facility]ology[facility], [place] [facility] [address] Helene, Chair 4 Hem Onc Scenery [address] [place] [address] 02/08/2023 1:15 PM EST Imaging [facility] 2nd Floor Cardiology, [place] [address] [place] [address] 02/14/2023 3:00 PM EST Office Visit Neurology [facility] [address] [place] [address] Sandhya Hanley MD [address] [place] [address] 03/07/2023 1:30 PM EST Office Visit [facility]rology, [facility] [place] [address] Sahil Funk MD [address] [address] [place] [address] 03/09/2023 4:40 PM EST Office Visit Family Practice [facility] [address] [place] [address] Hayes Maurer DO [address] [place] [address] 05/15/2023 3:00 PM EDT Office Visit Nutrition & Weight Management, [facility] [address] [place] [address] Preethi Fletcher PA-C [address] [place] [address] Scheduled Procedures Name Priority Associated Diagnoses Date/Ti [...] FOR COPD 07/20/2023 07/19/2022 TSH 12/28/2023 12/27/2022, /03/2022, 10/06/2022, Additional history exists Lipid Panel 03/15/2027 03/15/2022, 02/05, 10/01/2019, Additional history exists COLONOSCOPY-EVERY 5 YRS AGES 18-100 10/18/2027 10/17/2022, 12/26/2017, 12/26/2017, Additional history exists VITAMIN D LEVEL ONCE IN A LIFETIME-USE SMARTSET# [id number] Completed 08/02/2011, 04/24/2009, 06/25/2008, Additional history exists [...] Healthcare Agent Relationshi p Communication Michael Cifuentes Good Spouse Health Care Repr esentative (appointed verbally by patient or by statute hierarchy) Care Teams Plant Protection Guard Relationship Specialty Start Date End Date Hayes Maurer DO [address] [place] [address] PCP - General Family Medicine 04/04/19 documented as of this encounter
--- OUTSIDE RECORDS SUMMARY | 2023-02-27 12:54 | External Medical Summary ---
Author Name Unknown Address Unknown Organization [facility] [address] [place] [address] Laboratory Report Ordering Provider Test Date Status PARISH JAIME 01/31/2023 13:22:33 Final Observation Date Value Abnormality Reference (Units ) Status BUN 01/31/2023 13:22:33 21 Above high normal 6-20 (mg/dL) Final Creatinine 01/31/2023 13:22:33 0.8 0.5-1.0 (mg/dL) Final Glomerular filtration rate/1.73 sq M.predicted [Volume Rate/Area] in Serum, Plasma or Blood by Creatinine-based formula (CKD-EPI) 01/31/2023 13:22:33 78 >=60 (mL/min) Final eGFR is calculated based on the CKD-EPI 2020 equation SODIUM 01/31/2023 13:22:33 136 135-146 (m mol/L) Final Potassium 01/31/2023 13:22:33 4.2 3.5-5.1 (m mol/L) Final Cl 01/31/2023 13:22:33 96 Below low normal 98- 107 (mmol/L) Final CO2 01/31/2023 13:22:33 30 22-32 (mmo l/L) Final Anion gap 01/31/2023 13:22:33 10 7-15 (mmol /L) Final Glucose 01/31/2023 13:22:33 86 70-120 (mg /dL) Final Albumin 01/31/2023 13:22:33 3.6 Below low normal 3.8 -5.0 (g/dL) Final AST (Aspartate aminotransferase) 01/31/2023 13:22:33 12 10-35 (U/L) Fin al Alk Phos 01/31/2023 13:22:33 142 Above high normal 35 -130 (U/L) Final Bilirubin, Total 01/31/2023 13:22:33 0.7 <=1 .2 (mg/dL) Final Calcium 01/31/2023 13:22:33 8.8 8.4-10.2 ( mg/dL) Final Protein 01/31/2023 13:22:33 6.9 6.0-8.3 (g /dL) Final ALT (Alanine aminotransferase) 01/31/2023 13:22:33 <5 Below low normal 10-35 (U/L) Final Performing Location [facility] [address] [place] [address]
--- OUTSIDE RECORDS SUMMARY | 2023-02-27 12:54 | External Medical Summary | Summary of Care ---
Author Name Unknown Organization [facility] Address [address] [place] [address] Phone [phone] Care Team Providers Care Automatic Drilling Machine Operator Name Role Phone Hayes Maurer DO Primary Care Provider Reason for Visit * Reason Onset Date Comments case management 01/16/2023 Encounter Details Date Type Department Care Team (Late st Contact Info) Description 01/16/2023 Telephone Care Coordination [address] [place], [place] [id number] Cari Wiley, [facility] 200 [facility] [place] [address] case management Allergies Active Allergy Reactions Criticality Noted Date Comments Morphine 03/26/1997 Shock, dyspnea Other reaction(s): shock, dspnea Neomycin 04/07/2013 documented as of this encounter (statuses as of 01/16/2023) Medications Medication Sig Dispensed Refills Start Date [...] as of this encounter (statuses as of 01/16/2023) Active Problems Problem Noted Date Diagnosed Date [...] as of this encounter (statuses as of 01/16/2023) Resolved Problems Problem Noted Date Diagnosed Date [...] as of this encounter (statuses as of 01/16/2023) Immunizations Name Administration Dates Next Due COVID-19 mRNA, LNP-s, No Pre serve, 2-Dose Series (EduSourced) 03/04/2021,07/22/2020,07/01/2020 Pneumococcal Conjugate Vacc, 13 Valent (Prevnar) [...] encounter Miscellaneous Notes * Telephone Encounter - Cari Wiley LPC - 01/16/2023 10:12 AM EST Follow-up Routine Attempted Phone Call First Attempt Call Outcome Left Voicemail/Message Plan To attempt another outreach documented in this encounter Plan of Treatment Upcoming Encounters Date Type Department Care Team (Late st Contact Info) Description 01/31/2023 7:45 AM EST Office Visit Hematology/Oncology [facility] [place] [address] [place] [address] Héctor Rodriguez MD [address] [place] [address] 01/31/2023 12:30 PM EST Laboratory Laboratory [facility] [place] [address] [place] [id number] [place], Lab [facility] [address] [facility] [place] [address] 01/31/2023 1:30 PM EST Hem/Onc Treatment Hematology/Oncology Treatment, [place] 200 [facility] [place], [place] [address] Helene, Chair 4 Hem Onc Scenery [address] [facility] [place] [address] 02/01/2023 1:30 PM EST Hem/Onc Treatment Hematology/Oncology Treatment, [place] 200 [facility], [place] [address] Helene, Chair 7 Hem Onc Scenery [address] [facility] [place], [place] [address] 02/02/2023 1:30 PM EST Hem/Onc Treatment Hematology/Oncology Treatment, [place] 200 [facility] [place], [place] [address] Helene, Chair 5 Hem Onc Scenery [address] [facility] [place], [place] [address] 02/08/2023 1:15 PM EST Imaging [facility] 2nd Floor Cardiology, [place] [address] [facility] [place] [address] 02/14/2023 3:00 PM EST Office Visit Neurology [facility] [place] [address] [place] [address] Sandhya Hanley MD [address] [place] [address] 03/07/2023 1:30 PM EST Office Visit [facility] [place] [address] Sahil Funk MD [address] [place] [address] [place] [address] 03/09/2023 4:40 PM EST Office Visit Family Practice [facility] [place] [address] Hayes Maurer DO [address] [place] [address] 05/15/2023 3:00 PM EDT Office Visit Nutrition & Weight Management, [facility] 132 [facility] [place] [address] Preethi Fletcher PA-C [address] [place] [address] Scheduled Procedures Name Priority Associated Diagnoses Date/Ti [...] D LEVEL ONCE IN A LIFETIME-USE SMARTSET# [id number] Completed 08/02/2011, 04/24/2009, 06/25/2008, Additional history exists [...] patient or by statute hierarchy) Care Teams Automatic Drilling Machine Operator Relationship Specialty Start Date End Date Hayes Maurer DO [address] [place] [address] PCP - General Family Medicine 04/04/19 documented as of this encounter
--- OUTSIDE RECORDS SUMMARY | 2023-02-27 12:54 | External Medical Summary | Summary of Care ---
Author Name Unknown Organization [facility] Address [address] [place] [address] Phone [phone] Care Team Providers Care Metalworking Instructor Name Role Phone Hayes Maurer Primary Care Provider Encounter Details Date Type Department Care Team (Late st Contact Info) Description 12/28/2022 Population Health External Data Unspecified Department Allergies Active Allergy Reactions Criticality Noted Date [...] the morning. 30 Tablet 3 12/16/2022 Active documented as of this encounter (statuses [...] mRNA, LNP-s, No Pre serve, 2-Dose Series (Activaero) 03/04/2021,07/22/2020,07/01/2020 Pneumococcal Conjugate Vacc, 13 Valent (Prevnar) [...] 01/31/2023 7:45 AM EST Office Visit Hematology/Oncology [facility] [place] [address] Héctor Rodriguez MD 200 [facility] [place] [address] 01/31/2023 12:30 PM EST Laboratory Laboratory [facility] [place] 200 [facility] [place] [phone] [place], Lab [facility] 200 [facility] [place], [place] [address] 01/31/2023 1:30 PM EST Hem/Onc Treatment Hematology/[facility]cology Treatment, [place] [facility] [address] [place], Chair 4 Hem [facility] 200 [facility] [place], [place] [address] 02/01/2023 1:30 PM EST Hem/Onc Treatment Hematology/Oncology Treatment, [address] [address] Helene, Chair 7 Hem [facility] 200 [facility] [place] [address] 02/02/2023 1:30 PM EST Hem/Onc Treatment Hematology/Oncology Treatment, [address] [place] [address] Park, Chair 5 Hem Onc Scenery [address] [facility] [place] [address] 02/08/2023 1:15 PM EST Imaging [facility] 2nd Floor Cardiology, [place] [address] [facility] [place] [address] 02/14/2023 3:00 PM EST Office Visit Neurology [facility] [address] [place] [address] Sandhya Hanley MD [address] [place] [address] 03/07/2023 1:30 PM EST Office Visit Urology, [facility] 132 [facility] [place] [address] Sahil Funk MD [address] [place], [place] [address] [address] 03/09/2023 4:40 PM EST Office Visit Family Practice [facility] 132 [facility] [place] [address] Hayes Maurer DO 132 [facility] [place] [address] 05/15/2023 3:00 PM EDT Office Visit Nutrition & Weight Management, [facility] 132 [facility] [place] [address] Preethi Fletcher PA-C 132 [facility] [place] [address] Scheduled Procedures Name Priority Associated Diagnoses Date/Ti [...] D LEVEL ONCE IN A LIFETIME-USE SMARTSET# [id number] Completed 08/02/2011, 04/24/2009, 06/25/2008, Additional history exists [...] patient or by statute hierarchy) Care Teams Metalworking Instructor Relationship Specialty Start Date End Date Hayes Maurer DO [address] [place] [address] PCP - General Family Medicine 04/04/19 documented as of this encounter
--- OUTSIDE RECORDS SUMMARY | 2023-02-27 12:54 | External Medical Summary | Summary of Care ---
Author Name Unknown Organization [facility] Address [address] [place] [address] Phone [phone] Care Team Providers Care Engagement Director Name Role Phone Hayes Maurer DO Primary Care Provider Reason for Visit * Reason Onset Date Comments case management 2023 Encounter Details Date Type Department Care Team (Late st Contact Info) Description 2023 Steam Presser Telephone Family [facility] [address] [facility] [place] [address] India Wilks, RN [address] [place] [address] case management Allergies Active Allergy Reactions Criticality [...] Telephone Encounter - India Wilks RN - 2023 4:45 PM EST CM Progress note S: Spoke with patient. She verbalizes anxiety over upcoming chemo treatments. She is frustrated that she feels alone, her will be dropping her off for treatment and going to work. She worriesif this is "even worth it". She is trying to increase water intake, only one cup of tea a day. She is eating more. Took an imodium. O: Phone call follow up A: alert and oriented P: Provided supportive listening. Reinforced care plan as previously established. Will place [facility] referral for anxiety/support. documented in this encounter Plan of Treatment Upcoming Encounters Date Type Department Care Team (Late st Contact Info) Description 01/10/2023 1:00 PM EST Hem/Onc Treatment Hematology[address] [address] Helene, Chair 6 Hem Onc Scenery 200 [facility] [place] [address] 01/11/2023 2:00 PM EST Hem/Onc Treatment Hematology/[address], [address] [address] Helene, Chair 6 Hem Onc Scenery [address] [place] [address] [place] [address] 01/12/2023 2:00 PM EST Hem/Onc Treatment Hematology/[address]cology [address], [address] [address] Helene, Chair 4 Hem Onc Scenery 200 [facility] [place] [address] 02/08/2023 1:15 PM EST Imaging [facility] 2nd Floor Cardiology, [place] [address] [facility] [place] [address] 02/14/2023 3:00 PM EST Office Visit Neurology [facility] [place] 200 [facility] [place] [address] Sandhya Hanley MD 200 [facility] [place] [address] 03/07/2023 1:30 PM EST Office Visit Urology, [facility] [address] [place] [address] Sahil Funk MD [address] [place] [address] [place] [address] 03/09/2023 4:40 PM EST Office Visit Family Practice [facility] [address] [place] [address] Hayes Maurer DO [address] [place] [address] 05/15/2023 3:00 PM EDT Office Visit Nutrition & Weight Management, [facility] 132 [place] [address] Preethi Fletcher PA-C [address] [place] [address] Scheduled Procedures Name Priority Associated Diagnoses Date/Ti [...] D LEVEL ONCE IN A LIFETIME-USE SMARTSET# [id number] Completed 08/02/2011, 04/24/2009, 06/25/2008, Additional history exists [...] patient or by statute hierarchy) Care Teams Engagement Director Relationship Specialty Start Date End Date Hayes Maurer DO 132 [place] [address] PCP - General Family Medicine 04/04/19 documented as of this encounter
--- OUTSIDE RECORDS SUMMARY | 2023-02-27 12:54 | External Medical Summary | Summary of Care ---
Author Name Unknown Organization [facility] Address [address] [facility] [place] [address] Phone [phone] Care Team Providers Care Glass Cut Off Tender Name Role Phone Hayes Maurer DO Primary Care Provider Encounter Details Date Type Department Care Team (Late st Contact Info) Description 10/06/2022 Population Health External Data Unspecified Department Allergies [...] the morning. 45 Tablet 3 10/06/2022 Active documented as of this encounter (statuses [...] mRNA, LNP-s, No Pre serve, 2-Dose Series ([employer] XII) 03/04/2021,07/22/2020,07/01/2020 Pneumococcal Conjugate Vacc, 13 Valent (Prevnar) [...] 01/31/2023 7:45 AM EST Office Visit Hematology/Oncology [facility] [place] [address] [place] [address] Héctor Rodriguez MD [address] [place] [address] 01/31/2023 12:30 PM EST Laboratory Laboratory [facility] [place] [address] [place] [phone] Helene, Lab Scenery [address] [place] [address] 01/31/2023 1:30 PM EST Hem/Onc Treatment [facility], [place] [facility] [address] Helene, Chair 4 Hem Onc Scenery [address] [place] [address] 02/01/2023 1:30 PM EST Hem/Onc Treatment Hematology/Oncology Treatment, [place] 200 [facility], [place] [address] Helene, Chair 7 Hem Onc Scenery [address] [place] [address] 02/02/2023 1:30 PM EST Hem/Onc Treatment Hematology/Oncology Treatment, [place] 200 [facility], [place] [address] Helene, Chair 5 Hem Onc Scenery [address] [place] [address] 02/08/2023 1:15 PM EST Imaging [facility] 2nd Floor Cardiology, [place] 132 [facility] [place] [address] 02/14/2023 3:00 PM EST Office Visit Neurology [facility] [place] [address] [place] [address] Sandhya Hanley MD 200 [facility] [place] [address] 03/07/2023 1:30 PM EST Office Visit [facility], [facility] [place] [address] Sahil Funk MD 27 [facility] [address] [place] [address] 03/09/2023 4:40 PM EST Office Visit Family Practice [facility] 132 [facility] [place] [address] Hayes Maurer DO [facility] [place] [address] 05/15/2023 3:00 PM EDT Office Visit Nutrition & Weight Management, [facility] 132 [facility] [place] [address] Preethi Fletcher PA-C 132 [place] [address] Scheduled Procedures Name Priority Associated Diagnoses Date/Ti [...] D LEVEL ONCE IN A LIFETIME-USE SMARTSET# [id number] Completed 08/02/2011, 04/24/2009, 06/25/2008, Additional history exists [...] Infection Onset Date Last Indicated Resolved Time Gastrointestinal Rule-Out 10/12/2022 10/12/2022 7:16 PM EDT C. difficile Rule-Out 10/12/2022 10/12/20222022 2:15 PM EDT C. difficile 10/12/2022 10/12/2022 11/11/2022 12:1 8 AM EDT documented as of this encounter Advance Directives Healthcare Agents on File Name Relationship Healthcare Agent Relationshi p Communication Michael Funk Spouse Health Care Repr esentative (appointed verbally by patient or by statute hierarchy) Care Teams Glass Cut Off Tender Relationship Specialty Start Date End Date Hayes Maurer DO [address] [place] [address] PCP - General Family Medicine 04/04/19 documented as of this encounter
--- OUTSIDE RECORDS SUMMARY | 2023-02-27 12:54 | External Medical Summary ---
Author Name Unknown Address Unknown Organization K09:[facility] [place] [address] Laboratory Report Ordering Provider Test Date Status PARISH JAIME 01/31/2023 13:22:33 Final Observation Date Value Abnormality Reference (Units ) Status WBC, Total 01/31/2023 13:22:33 18.76 Above high normal 4 .00-10.80 (K/uL) Final RBC 01/31/2023 13:22:33 4.01 3.85-5.15 (M/uL) Final Hemoglobin 01/31/2023 13:22:33 11.7 Below low normal 12 .0-15.3 (g/dL) Final HCT 01/31/2023 13:22:33 37.5 36.0-45.2 (%) Final MCV 01/31/2023 13:22:33 93.5 81.5-97.5 (fL) Final MCH 01/31/2023 13:22:33 29.2 27.0-34.0 (pg) Final MCHC 01/31/2023 13:22:33 31.2 32.0-36.0 (g/dL) Final RDW 01/31/2023 13:22:33 14.2 11.5-15.5 (%) Final Platelets 01/31/2023 13:22:33 364 140-400 (K /uL) Final MPV 01/31/2023 13:22:33 9.5 6.6-11.1 ( fL) Final Performing Location [facility] [place] [address]
--- OUTSIDE RECORDS SUMMARY | 2023-02-27 12:55 | External Medical Summary | Summary of Care ---
Author Name Unknown Organization [facility] Address [address] [place] [address] Phone [phone] Care Team Providers Care Panama Hat Hydraulic Press Operator Name Role Phone Hayes Maurer Primary Care Provider Reason for Visit * Reason Onset Date Comments Precert Future 12/30/2022 Carbo/ etoposide / udenyca Encounter Details Date Type Department Care Team (Late st Contact Info) Description 12/30/2022 Telephone Hematology/Oncology Treatment, [place] [address] [place] [phone] Héctor Rodriguez MD [address] [place] [address] Precert Future (Carbo/ etoposide/ udenyca) Allergies Active Allergy Reactions Criticality Noted Date [...] Oral Tablet Extended Release 24 Hour (toPROL XL)Indications:SV T (supraventricular tachycardia) Take 0.5 Tablets by mouth in the morning. 45 Tablet 3 10/06/2022 Active Acetaminophen 500 MG Oral Packet Take by mouth. 0 Active Anoro Ellipta 62.5-25 MCG/ACT Inhalation Aerosol Powder Breath Activated (umeclidinium-hamida anterol) Inhale 1 Puff by mouth. 0 Active [...] morning and 1 Tablet before bedtime. 0 01/05/2023 Discontinued (Refill) documented as of this encounter (statuses as [...] Encounter - Pili Bucio RN - 01/06/2023 2:10 PM EDT Scheduling: after nurse visit, if patient wants to schedule she will need - labs today "CBCd, CMP, hep B" 4 day treatment scheduled Day 1: - labs "CBCd, CMP"- can be day prior if patient prefers - 3 hour appt "C1D1 carbo/ etoposide/ udenyca day 4" Day 2: - 2 hour appt "C1D2 etoposide" Day 3: - 2 hour appt "C1D3 etoposide Day 4: - injection appt "udenyca"- this needs to be 24 hours after day 3 treatment appt ends, can either be scheduled now and time adjusted later if needed or scheduled when patient comes in * Telephone Encounter - Pili Bucio RN - 01/02/2023 8:03 AM EDT Referral entered. * Telephone Encounter - Pili Bucio RN - 12/30/2022 10:34 AM EDT Order received for carboplatin/ etoposide/ udenyca. [place] plan built and routed for signature. Waiting for auth. Consent signed 12/29/22. Patient is coming 01/03/23 for nurse education- will need hep B labs. Lab orders still need to be placed. documented in this encounter Plan of Treatment Upcoming Encounters Date Type Department Care Team (Late st Contact Info) Description 01/06/2023 2:15 PM EDT Nurse Only Hematology/Oncology [facility] 200 [facility] [place] [address] Helene, Nurse Hem Onc [address] [address] Arrived 02/08/2023 1:15 PM EST Imaging [facility] 2nd Floor Cardiology, [address] [place] [address] 02/14/2023 3:00 PM EST Office Visit Neurology [facility] 200 [facility] [place] [address] Sandhya Hanley MD 200 [facility] [place] [address] 03/07/2023 1:30 PM EST Office Visit Urology, [facility] 132 [place] [address] Sahil Funk MD 27 [facility] 270 [place] [address] 03/09/2023 4:40 PM EST Office Visit Family Practice [facility] [address] [place] [address] Hayes Maurer DO [address] [place] [address] 05/15/2023 3:00 PM EDT Office Visit Nutrition & Weight Management, [facility] [address] [place] [address] Preethi Fletcher PA-C [address] [place] [address] Scheduled Procedures Name Priority Associated Diagnoses Date/Ti [...] D LEVEL ONCE IN A LIFETIME-USE SMARTSET# [id number] Completed 08/02/2011, 04/24/2009, 06/25/2008, Additional history exists [...] patient or by statute hierarchy) Care Teams Panama Hat Hydraulic Press Operator Relationship Specialty Start Date End Date Hayes Maurer DO [address] [place] [address] PCP - General Family Medicine 04/04/19 documented as of this encounter
--- OUTSIDE RECORDS SUMMARY | 2023-02-27 12:55 | External Medical Summary | Summary of Care ---
Author Name Unknown Organization [facility] Address [address] [place] [address] Phone [phone] Care Team Providers Care Genetic Physician Name Role Phone Hayes Maurer DO Primary Care Provider Reason for Visit * Reason Onset Date Comments Med Request 01/04/2023 Encounter Details Date Type Department Care Team (Late st Contact Info) Description 01/04/2023 Telephone Family Practice [facility] [address] [place] [address] Hayes Maurer DO [address] [place] [address] Med Request Allergies Active Allergy Reactions Criticality Noted Date Comments Morphine 03/26/1997 Shock, dyspnea Other reaction(s): shock, dspnea Neomycin 04/07/2013 documented as of this encounter (statuses as of 01/05/2023) Medications Medication Sig Dispensed Refills Start Date [...] before bedtime. 30 Tablet 5 01/05/2023 Active Furosemide 20 MG Oral Tablet (Lasix) Take 1 Tablet by mouth in the morning and 1 Tablet before bedtime. 0 01/05/2023 Discontinued (Refill) documented as of this encounter (statuses as of 01/05/2023) Active Problems Problem Noted Date Diagnosed Date [...] as of this encounter (statuses as of 01/05/2023) Resolved Problems Problem Noted Date Diagnosed Date [...] as of this encounter (statuses as of 01/05/2023) Immunizations Name Administration Dates Next Due COVID-19 [...] encounter Miscellaneous Notes * Telephone Encounter - Gracy Lozoya MED ASSIST - 01/05/2023 10:14 AM EDT 30 day supply pended. Pending Prescriptions: Disp Refills Furosemide 20 MG Oral Tablet (Lasix) 30 Tab*5 Sig: Take 1 Tablet by mouth in the morning and 1 Tablet before bedtime. 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 ADVANCE DIRECTIVE INFORMATION Pulmonary hypertension (HCC) I27.20 High risk for fracture due to osteoporosis by DEXA scan M81.0 Positive colorectal cancer screening using Cologuard test R19.5 History of colon polyps Z86.010 COPD, group B, by GOLD 2017 classification ([facility]) J44.9 Medical home patient encounter Z00.8 Small cell lung cancer (HCC) C34.90 Encounter for antineoplastic chemotherapy Z51.11 Labs: Lab Results Component Value Date/Time CREATININE - [facility] 0.7 12/27/2022 03:37 PM CREATININE - [facility] 0.8 10/01/2019 04:08 PM CREATININE, RANDOM URINE - [facility] 115 03/15/2022 04:30 PM CREATININE, RANDOM URINE - [facility] 152 10/01/2019 04:17 PM CREATININE-OUTSIDE LAB 0.64 07/05/2022 12:00 AM Lab Results Component Value Date/Time POTASSIUM - [facility] 4.1 12/27/2022 03:37 PM POTASSIUM - [facility] 4.1 10/01/2019 04:08 PM POTASSIUM-OUTSIDE LAB 4.7 07/05/2022 12:00 AM Lab Results Component Value Date/Time TSH - [facility] 0.80 12/27/2022 03:37 PM TSH - [facility] 1.31 10/01/2019 04:08 PM TSH - OUTSIDE LAB 32.058 (A) 10/24/2022 12:00 AM Lab Results Component Value Date/Time LDL CHOLESTEROL (CALCULATED) - [facility] 92 03/15/2022 04:30 PM LDL CHOLESTEROL (CALCULATED) - [facility] 82 03/04/2021 04:16 PM LDL CHOLESTEROL (CALCULATED) - [facility] 84 10/01/2019 04:08 PM LDL CHOLESTEROL (CALCULATED) - [facility] 107 (H) 03/19/2008 12:46 PM LDL CHOLESTEROL (DIRECT MEASURE) - [facility] NOT APPLICABLE 10/01/2019 04:08 PM LDL CHOLESTEROL (DIRECT MEASURE) - [facility] 102 12/18/2014 03:21 PM LDL CHOLESTEROL (DIRECT MEASURE) - [facility] 112 (H) 12/08/2006 03:29 PM Lab Results Component Value Date/Time ALT - [facility] 11 12/27/2022 03:37 PM ALT - [facility] 16 10/01/2019 04:08 PM Hemoglobin AIC Results: Lab Results Component Value Date/Time HEMOGLOBIN A1C - [facility] 5.6 03/15/2022 04:30 PM HEMOGLOBIN A1C - [facility] 5.8 (H) 03/04/2021 04:16 PM HEMOGLOBIN A1C - [facility] 5.7 (H) 10/01/2019 04:08 PM HEMOGLOBIN A1C - [facility] 5.4 07/06/2017 03:02 PM HEMOGLOBIN A1C - [facility] 5.8 03/19/2008 12:46 PM * Telephone Encounter - Lolis Mederos CPhT - 01/04/2023 5:18 PM EDT Pt calling into state her Rx Furosemide 20mg need's to be 30 ds. Thank you, Lolis Mederos Salesperson Handbags [employer] 01/04/2023, 5:19 PM * Telephone Encounter - Chrissy Youngblood CPhT - 01/04/2023 5:04 PM EDT patient calling requesting the following medication below that is listed as "Historical". The following information was provided: Medication Name: Furosmide Strength: 20MG Directions: 1 daily Preferred Quantity: 90 day Previous Prescriber: n/a Preferred Pharmacy: [id number] [id number] [facility] Please review and approve if appropriate. Thank you, Chrissy Youngblood, Salesperson Handbags [facility]) 01/04/2023, 5:05 PM documented in this encounter Plan of Treatment Upcoming Encounters Date Type Department Care Team (Late st Contact Info) Description 01/06/2023 2:15 PM EDT Nurse Only Hematology/Oncology [facility] [place] [address] [place] [address] Helene, Nurse Hem Onc Ne [address] [place] [address] 02/08/2023 1:15 PM EST Imaging [facility] 2nd Floor Cardiology, [place] 132 [facility] [place] [address] 02/14/2023 3:00 PM EST Office Visit Neurology [facility] [address] [place] [address] Sandhya Hanley MD 200 [facility] [place] [address] 03/07/2023 1:30 PM EST Office Visit Urology, [facility] 132 [facility] [place] [address] Sahil Funk MD [address] [facility] [address] [place] [address] 03/09/2023 4:40 PM EST Office Visit Family Practice [facility] 132 [facility] [place] [address] Hayes Maurer DO 132 [facility] [place] [address] 05/15/2023 3:00 PM EDT Office Visit Nutrition & Weight Management, [facility] 132 [facility] [place] [address] Preethi Fletcher PA-C 132 [facility] [place] [address] Scheduled Procedures Name Priority Associated Diagnoses Date/Ti [...] D LEVEL ONCE IN A LIFETIME-USE SMARTSET# [id number] Completed 08/02/2011, 04/24/2009, 06/25/2008, Additional history exists [...] patient or by statute hierarchy) Care Teams Genetic Physician Relationship Specialty Start Date End Date Hayes Maurer DO 132 [place] [address] PCP - General Family Medicine 04/04/19 documented as of this encounter
--- OUTSIDE RECORDS SUMMARY | 2023-02-27 12:55 | External Medical Summary | Summary of Care ---
Author Name Unknown Organization [facility] Address [address] [place] [address] Phone [phone] Care Team Providers Care Fruit Picker Machine Operator Name Role Phone Hayes Maurer DO Primary Care Provider Reason for Referral * Evaluate & Treat - Unlimited Visits (Within 10 days (routine)) - Authorized Specialty Diagnoses / Procedures Referred By Johanny garcia Referred To Contact Neurology Diagnoses Small cell lung cancer (HCC) Neuropathy Héctor Rodriguez MD [address] [facility] [place] [address] Referral ID Status Reason Start Date Expiration Date Visits Requested Visits Authorized [id number] Authorized Specialty Services Required 3 [phone] Question Answer Referral Priority Within 10 days (routine) Where should this appointment be scheduled? [facility] [place] [facility] [place]STIONS Neuromuscular Comments 72-year-old female, a case of small cell lung cancer, for the last few months, she has increasing neuropathy symptoms in the lower extremities. Has not received any kind of chemotherapy so far. Would like to have neurology evaluation Thanks. Dr. Héctor Rodriguez Hem/Onc Reason for Visit * Reason Comments Follow Up Discuss PET Scan Encounter Details Date Type Department Care Team (Late st Contact Info) Description 12/29/2022 1:15 PM EDT Office Visit Hematology/Oncology [facility] [address] [id number] Héctor Rodriguez MD [address] [facility] [place] [address] Small cell lung cancer (HCC)*; Neuropathy Allergies Active Allergy Reactions Criticality Noted Date Comments Morphine 03/26/1997 Shock, dyspnea Other reaction(s): shock, dspnea Neomycin 04/07/2013 documented as of this encounter (statuses as of 12/29/2022) Medications Medication Sig Dispensed Refills Start Date [...] the morning. 45 Tablet 3 10/06/2022 Active Furosemide 20 MG Oral Tablet (Lasix) Take 1 Tablet by mouth in the morning and 1 Tablet before bedtime. 0 Active Acetaminophen 500 MG Oral Packet Take [...] as of this encounter (statuses as of 12/29/2022) Active Problems Problem Noted Date Diagnosed Date Medical home patient encounter 10/07/2022 COPD, group [...] as of this encounter (statuses as of 12/29/2022) Resolved Problems Problem Noted Date Diagnosed Date [...] as of this encounter (statuses as of 12/29/2022) Immunizations Name Administration Dates Next Due COVID-19 [...] Sign Reading Time Taken Comments Blood Pressure 117/70 12/29/2022 1:09 PM EDT Pulse 71 12/29/2022 1:09 PM EDT Temperature 36.6 C (97.9 F) 12/29/2022 1:09 PM ED T Respiratory Rate 16 12/29/2022 1:09 PM EDT Oxygen Saturation 95% 12/29/2022 1:09 PM EDT Inhaled Oxygen Concentration - - Weight 43.7 kg (96 lb 4.8 oz) 12/29/2022 1:09 PM EDT Height 160.7 cm (5' 3.25") 12/29/2022 1:09 PM ED T Body Mass Index 16.92 12/29/2022 1:09 PM EDT documented in this encounter Progress Notes * Héctor Rodriguez MD - 12/29/2022 3:57 PM EDT KACI KATZ MR # [id number] :1950 72-year-old female, Date of consultation:11/09/2022 DIAGNOSIS: 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 CURRENT TREATMENT: Planning for systemic chemotherapy with carboplatin and etoposide. Carboplatin at AUC of 5 on day 1 Etoposide 100 mg/m daily for 3 days, repeating every 21 days. High risk for febrile neutropenia, would like to give her prophylactic Pegfilgrastim to prevent thefebrile neutropenia. DIAGNOSTIC WORKUP: She had been admitted at [facility] for about 4 times in the last [...] lower lobe airspace consolidation. -interlobular septal thickening. Gnpe-xr-ocalwnro bilateral pleural effusion. Right supraclavicular lymph node [...] by Dr. Ernesto Scott on 10/27/2022 at [facility]. -stool for C difficile positive Stool culture also grew norovirus - smokes about 5 cigarettes in a day, now she has discontinued smoking habit. INTERVAL HISTORY: She has come the clinic for the follow-up, ambulating with the help of the walker, accompanied by her in the office. Previously noted leg edema has improved, she says that now she has increasing tingling and numbnessof both lower extremities, had similar symptoms in the upper extremity which has improved to some extent, no nausea no vomiting, fair appetite, current weight around 96 lb. She says that she has stopsmoking recently and improvement of the pulmonary symptoms noted. No increasing coughing or chest pain or tightness. Not on oxygen treatment. Denies any abdominal discomfort. No fever. Past Medical History: Diagnosis Date Abnormal Papanicolaou [...] performed by Deisi Dent DO at [facility] EGD, FLEXIBLE, DIAGNOSTIC 07/19/2022 abdoul katz grade III reflux esophagitis/erthematous mucosa stomach/biopsies show mild irritationof stomach/ESOPHAGOGASTRODUODENOSCOPY (EGD), FLEXIBLE, TRANSORAL, DIAGNOSTIC performed by Jessica Martinez DO at [facility] EGD, FLEXIBLE, W/BIOPSY 04/24/2007 chronic gastric [...] mouth in the morning. 45 Tablet 3 Furosemide 20 MG Oral Tablet (Lasix) Take 1 Tablet by mouth in the morning and 1 Tablet before bedtime. Acetaminophen 500 MG Oral Packet Take by [...] by mouth in the morning. 30Tablet 3 No current facility-administered medications for this visit. 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: [employer] Physical Tobacco Use Smoking status: Former Packs/day: 0.55 [...] Resource Strain: Not on file Food Insecurity: Not on file Transportation Needs: Not on file Physical Activity: Not on file Stress: Not on file Social Connections: Not on file Intimate Partner Violence: Not on file Housing Stability: Not on file On Exam: BP 117/70 (BP Site: Left Arm, BP Position: Sitting, BP Cuff Size: Pediatric) | Pulse 71 | Temp 36.6C (97.9 F) (Oral) | Resp 16 | Ht 1.607 m (5' 3.25") | Wt 43.7 kg (96 lb 4.8 oz) | LMP 06/14/1999 | SpO2 95% | BMI 16.92 kg/m | BSA 1.4 m Constitutional: Patient is alert, cooperative and [...] LABS: Blood workup done on 11/02/2022 at [facility]: -WBC 6700, H&H of 9.5/30, Platelet count [id number] -BUN/Creat: 26/0.53, Calcium 8.3 -normal LFT -stool for norovirus --> positive IMAGING: PET-CT scan done on 11/21/2022: -1.1 [...] PLAN: 72-year-old female, who was admitted at [facility] on few occasions, overall generalized declining health, weight loss, fall, fractured left intertrochanteric femur, S/P surgical intervention for that in October 2022 Imaging study showed enlarged right supraclavicular lymph node, mediastinal lymph nodes, biopsy from the right cervical lymph node showed predominant small cell lung cancer small component of non-small cell lung cancer. History of smoking noted nowadays she smokes 1 pack over 3 days. I reviewed with her and her regarding the follow-up PET-CT scan done about 6 weeks back, she has right supraclavicular lymph node, mediastinal lymphadenopathy, left para-aortic gland nodule which is metabolic active which is new primary versus metastatic disease. We talked about different treatment options that can be considered with systemic chemotherapy versus chemotherapy and radiation treatment for the small cell lung cancer. 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 They also do not have any friends who can help her to bring to the office. After extensive discussion, we could consider for carboplatin and the etoposide chemotherapy for small-cell lung cancer and see how she does. It is possible that she may require hospitalization after the treatment related complications and poor oral intake. We also talked about overall treatment goal which would be palliative and perhaps not curative. We talked about radiation treatment but looking at her overall clinical condition and logistics at home, I do not think she will be able to come for the treatment and also manage toxicity at home. I would like to have neurology evaluation for the neuropathy in the lower extremities. Chemotherapy teaching soon. Dr. Héctor Rodriguez Hem/Onc (This note was completed using the dictation program Fluency Direct. As such, there may be misspellings word substitutions, or other variations that should not change the essence of the clinical content of this encounter note. If there is need for further clarification, please direct questions to the provider listed above.) documented in this encounter Nursing Notes * Ariadna Maurer CMA - 12/29/2022 1:10 PM EDT Patient identifed by name and birthdate Do you have any concerns about pain management for today's visit? Yes Living Will or Advance Directive for Health Care as noted on the problem list. [facility] is a way you can talk to your provider on line through e-mail. Would you like to sign up? I can activate it for you? No Filed Vitals: 12/29/22 1309 BP: 117/70 Pulse: 71 Resp: 16 Temp: 36.6 C (97.9 F) TempSrc: Oral SpO2: 95% Weight: 43.7 kg (96 lb 4.8 oz) Height: 1.607 m (5' 3.25") Patient was instructed to not get up on the exam table/exam chair until directed and assisted by their provider; patient is to remain seated in the chair/ wheelchair/ exam table/ exam chair for fall prevention and safety reasons. Patient is aware to have assistance to step down off exam table/exam chair with personnel. Patient voiced full comprehension of instructions. Distress Score: 5 Physical Problems: Feeling swollen; Pain Other Problems: bilateral foot numbness, pain,and swelling documented in this encounter Plan of Treatment Upcoming Encounters Date Type Department Care Team (Late st Contact Info) Description 01/03/2023 2:15 PM EDT Nurse Only Hematology/Oncology [facility] [place] [address] [place] [address] Helene, Nurse Hem Onc [place] [address] [facility] [place] [address] 02/08/2023 1:15 PM EST Imaging [facility] 2nd Floor Cardiology, [place] [address] [facility] [place] [address] 03/07/2023 1:30 PM EST Office Visit Urology, [facility] [address] [facility] [place] [address] Sahil Katz MD [facility] [address] [address] 03/09/2023 4:40 PM EST Office Visit Family Practice [facility] [address] [facility] [place] [address] Hayes Maurer DO [address] [place] [address] 05/15/2023 3:00 PM EDT Office Visit Nutrition & Weight Management, [facility] [place] [address] Preethi Fletcher PA-C [address] [facility] [place] [address] Scheduled Procedures Name Priority Associated Diagnoses Date/Ti me COLONOSCOPY FLEXIBLE PROXIMA L DIAGNOSTIC Recall History of colon polyps Special screening for malignant neoplasms, colon Scheduled Referrals Name Type Priority Associated Diagnoses Orde r Schedule NEUROLOGY REFERRAL OP Referral Within 10 days (routine) Small cell lung cancer (HCC) Neuropathy Ordered: 12/29/2022 Health Maintenance Due Date Last Done Comments [...] D LEVEL ONCE IN A LIFETIME-USE SMARTSET# [id number] Completed 08/02/2011, 04/24/2009, 06/25/2008, Additional history exists [...] neoplasm of bronchus and lung, unspecified site Neuropathy Mononeuritis of unspecified site documented in this encounter Advance Directives Healthcare Agents on File Name Relationship Healthcare Agent Relationshi p Communication Michael Katz Spouse Health Care Repr esentative (appointed verbally by patient or by statute hierarchy) Care Teams Fruit Picker Machine Operator Relationship Specialty Start Date End Date Hayes Maurer DO [address] [place] [address] PCP - General Family Medicine 04/04/19 documented as of this encounter
--- OUTSIDE RECORDS SUMMARY | 2023-02-27 12:55 | External Medical Summary ---
Author Name Unknown Address Unknown Organization K09:[facility] [place] [address] Laboratory Report Ordering Provider Test Date Status PARISH JAIME 01/06/2023 15:51:18 Final Observation Date Value Abnormality Reference (Units ) Status SYNC LEUKOCYTES IN BLOOD BY AUTOMATED COUNT 01/06/2023 15:51:18 8.27 4.00-10.80 (K/uL) Final Segs 01/06/2023 15:51:18 73.0 40.0-75.0 (%) Final Lymphs % 01/06/2023 15:51:18 16.9 Below low normal 18.0-42.0 (%) Final Monos 01/06/2023 15:51:18 9.4 1.0-11.0 (%) Final Eosinophils 01/06/2023 15:51:18 0.6 0.0-6.0 (%) Final Basos 01/06/2023 15:51:18 0.1 0.0-2.0 (%) Final Absolute Segs 01/06/2023 15:51:18 6.03 1.80-7.70 (K/uL) Final Lymphs, absolute 01/06/2023 15:51:18 1.40 1.00-4.80 (K/ul) Final Monos, Abs 01/06/2023 15:51:18 0.78 0.00-1.10 (K/uL) Final Eos, Abs 01/06/2023 15:51:18 0.05 0.00-0.70 (K/uL) Final Basos, Abs 01/06/2023 15:51:18 0.01 0.00-0.20 (K/uL) Final Performing Location [facility] [place] [address]
--- OUTSIDE RECORDS SUMMARY | 2023-02-27 12:55 | External Medical Summary ---
Author Name Unknown Address Unknown Organization K01:[facility] [address] [place] [address] Laboratory Report Ordering Provider Test Date Status PARISH JAIME 01/06/2023 15:50:00 Final Observation Date Value Abnormality Reference (Units ) Status Hep B surface Ag 01/06/2023 15:50:00 Negative Neg ative Final Performing Location [facility] - [address] [place] [id number]
--- OUTSIDE RECORDS SUMMARY | 2023-02-27 12:55 | External Medical Summary | Summary of Care ---
Author Name Unknown Organization [facility] Address [address] [place] [address] Phone [phone] Care Team Providers Care Funeral Workers Name Role Phone Hayes Maurer Primary Care Provider Reason for Visit * Reason Comments case management Encounter Details Date Type Department Care Team (Late st Contact Info) Description 12/30/2022 Blacksmith Hammer OperatorMechanical Commissioning Engineer [facility] [address] [place] [address] India Wilks, RN [address] [place] [address] Medical home patient encounter* Allergies Active Allergy Reactions Criticality Noted Date Comments Morphine 03/26/1997 Shock, dyspnea Other reaction(s): shock, dspnea Neomycin 04/07/2013 documented as of this encounter (statuses as of 01/02/2023) Medications Medication Sig Dispensed Refills Start Date [...] as of this encounter (statuses as of 01/02/2023) Active Problems Problem Noted Date Diagnosed Date [...] as of this encounter (statuses as of 01/02/2023) Resolved Problems Problem Noted Date Diagnosed Date [...] as of this encounter (statuses as of 01/02/2023) Immunizations Name Administration Dates Next Due COVID-19 [...] as of this encounter Progress Notes * India Wilks RN - 12/30/2022 1:36 PM EDT CM Progress Note Spoke with patient at length regarding her oncology visit. She voices anxiety with upcoming treatment, and that her is still working. She would feel more comfortable if he would be home with her as she goes through treatments. She is fearful that she will feel sick and be home alone. Discussed with her the option of her taking some FMLA from his work. She will bring this up with him. She states " I just wish someone would be able to make him quit his job! He is 76 years old, he has put in his time". She is appreciative of the office's support. She would like Dr. Maurer to review Dr. Meadows notes and see if he feels this is a good plan for her as well. Will discuss with Dr. Maurer. documented in this encounter Plan of Treatment Upcoming Encounters Date Type Department Care Team (Late st Contact Info) Description 01/03/2023 2:15 PM EDT Nurse Only Hematology/Oncology [facility] [address] [place] [address] Helene, Nurse Hem Onc [facility] [address] 02/08/2023 1:15 PM EST Imaging [facility] 2nd Floor Cardiology, [place] [address] [place] [address] 02/14/2023 3:00 PM EST Office Visit Neurology [facility] [address] [facility] [place] [address] Sandhya Hanley MD [address] [facility] [place] [address] 03/07/2023 1:30 PM EST Office Visit Urology, [facility] [address] [facility] [place] [address] Sahil Funk MD [address] [place] [address] [place] [address] 03/09/2023 4:40 PM EST Office Visit Family Practice [facility] [address] [place] [address] Hayes Maurer DO [address] [place] [address] 05/15/2023 3:00 PM EDT Office Visit Nutrition & Weight Management, [facility] [address] [place] [address] Preethi Fletcher PA-C [address] [place] [address] Scheduled Procedures Name Priority Associated Diagnoses Date/Ti [...] D LEVEL ONCE IN A LIFETIME-USE SMARTSET# [id number] Completed 08/02/2011, 04/24/2009, 06/25/2008, Additional history exists [...] as of this encounter Visit Diagnoses Diagnosis Medical home patient encounter- Primary Other specified examination documented in this encounter Advance Directives Healthcare Agents on File Name Relationship Healthcare Agent Relationshi p Communication Michael Funk Spouse Health Care Repr esentative (appointed verbally by patient or by statute hierarchy) Care Teams Funeral Workers Relationship Specialty Start Date End Date Hayes Maurer DO [address] [place] [address] PCP - General Family Medicine 04/04/19 documented as of this encounter
--- OUTSIDE RECORDS SUMMARY | 2023-02-27 12:55 | External Medical Summary | Summary of Care ---
Author Name Unknown Organization [facility] Address [address] [place] [address] Phone [phone] Care Team Providers Care Automatic Chief Name Role Phone Hayes Maurer DO Primary Care Provider Reason for Visit * Reason Onset Date Comments Advice 12/28/2022 Encounter Details Date Type Department Care Team (Late st Contact Info) Description 12/28/2022 Telephone Hematology/Oncology [facility] [place] [address] [place] [address] Héctor Rodriguez MD [address] [place] [address] Advice Allergies Active Allergy Reactions Criticality Noted Date Comments Morphine 03/26/1997 Shock, dyspnea Other reaction(s): shock, dspnea Neomycin 04/07/2013 documented as of this encounter (statuses as of 12/28/2022) Medications Medication Sig Dispensed Refills Start Date [...] as of this encounter (statuses as of 12/28/2022) Active Problems Problem Noted Date Diagnosed Date [...] as of this encounter (statuses as of 12/28/2022) Resolved Problems Problem Noted Date Diagnosed Date [...] as of this encounter (statuses as of 12/28/2022) Immunizations Name Administration Dates Next Due COVID-19 [...] Telephone Encounter - Pili Bucio RN - 12/28/2022 3:30 PM EDT Called patient. Advised her that appt tomorrow is to review scan and so that she and Dr Rodriguez can determine a plan moving forward together. She asked if we would do any tests tomorrow- advised her wewould not, if Dr Rodriguez wanted any further tests he will discuss this with her and we would get themscheduled, but they would not be here. She asked if we would admit her to the hospital- advised that we are not planning to admit her to the hospital. Patient asked repeatedly if chemotherapy would be ordered. Advised her that Dr Rodriguez will review his recommendations with her at the appt. She verbalized understanding. * Telephone Encounter - JADYN Cervantes - 12/28/2022 3:01 PM EDT Pt calling to check on status of this. Asking to speak to someone ksenia. Reminded of 24-48 hour turnaround time states she needs information prior to tomorrows appointment. * Telephone Encounter - Ariadna Maurer CMA - 12/28/2022 1:42 PM EDT Received message from Dr. Maurer's office about this patient was suppose to see Dr. Rodriguez on 12/06 to discuss her PET. Dr. Maurer's office stated she cancelled due to being too scared to come for results so did not come. Asked if we could get her in to discuss PET. Called patient, spoke with Kaci; stated I have opening 1:15pm tomorrow with Dr. Rodriguez then next appt would be about 2 weeks out. She agreed to take this spot BUT would like someone to call her to tell her what to expect at this appointment. I explained it would be to go over the results of the PETbut she wanted more detail. Please call home number; did explain that currently nursing staff are busy and not sure when they could return her call. documented in this encounter Plan of Treatment Upcoming Encounters Date Type Department Care Team (Late st Contact Info) Description 12/29/2022 1:15 PM EDT Office Visit Hematology/Oncology [facility] 200 [facility] [place] [address] Héctor Rodriguez MD [address] [facility] [place] [address] 02/08/2023 1:15 PM EST Imaging [facility] 2nd Floor Cardiology, [place] [address] [facility] [place] [address] 03/07/2023 1:30 PM EST Office Visit Urology, [facility] [address] [facility] [place] [address] Sahil Funk MD 27 [facility] [address] [place] [address] 03/09/2023 4:40 PM EST Office Visit Family Practice [facility] [address] [place] [address] Hayes Maurer DO [address] [place] [address] 05/15/2023 3:00 PM EDT Office Visit Nutrition & Weight Management, [facility] [address] [place] [address] Preethi Fletcher PA-C [address] [place] [address] Scheduled Procedures Name Priority Associated Diagnoses Date/Ti [...] D LEVEL ONCE IN A LIFETIME-USE SMARTSET# [id number] Completed 08/02/2011, 04/24/2009, 06/25/2008, Additional history exists [...] or by statute hierarchy) Care Teams Automatic Chief Relationship Specialty Start Date End Date Hayes Maurer DO [address] [place] [address] PCP - General Family Medicine 04/04/19 documented as of this encounter
--- OUTSIDE RECORDS SUMMARY | 2023-02-27 12:55 | External Medical Summary | Summary of Care ---
Author Name Unknown Organization [facility] Address [address] [place] [address] Phone [phone] Care Team Providers Care Baker Head Name Role Phone Hayes Maurer DO Primary Care Provider Reason for Visit * Reason Onset Date Comments Appointment 12/30/2022 Encounter Details Date Type Department Care Team (Late st Contact Info) Description 12/30/2022 Telephone Hematology/Oncology [facility] Helene [place] [address] [place] [address] Héctor Rodriguez MD [address] [place] [address] Appointment Allergies Active Allergy Reactions Criticality Noted Date Comments Morphine 03/26/1997 Shock, dyspnea Other reaction(s): shock, dspnea Neomycin 04/07/2013 documented as of this encounter (statuses as of 12/30/2022) Medications Medication Sig Dispensed Refills Start Date [...] as of this encounter (statuses as of 12/30/2022) Active Problems Problem Noted Date Diagnosed Date [...] as of this encounter (statuses as of 12/30/2022) Resolved Problems Problem Noted Date Diagnosed Date [...] as of this encounter (statuses as of 12/30/2022) Immunizations Name Administration Dates Next Due COVID-19 [...] encounter Miscellaneous Notes * Telephone Encounter - Kalani Askew OSA - 12/30/2022 7:33 AM EDT Neurology-please contact patient for an appt in regards to 72-year-old female, a case of small cell lung cancer, for the last few months, she has increasing neuropathy symptoms in the lower extremities. Has not received any kind of chemotherapy so far. Wouldlike to have neurology evaluation Thank you documented in this encounter Plan of Treatment Upcoming Encounters Date Type Department Care Team (Late st Contact Info) Description 01/03/2023 2:15 PM EDT Nurse Only Hematology/Oncology [place] [address] [place] [address] Helene Nurse Hem Onc Ne [address] [place] [address] 02/08/2023 1:15 PM EST Imaging [facility] 2nd Floor Cardiology, [place] [address] [facility] [place] [address] 03/07/2023 1:30 PM EST Office Visit Urology, [facility] 132 [facility] [place] [address] Sahil Funk MD [facility] [address] [place] [address] 03/09/2023 4:40 PM EST Office Visit Family Practice [facility] 132 [facility] [place] [address] Hayes Maurer DO 132 [facility] [place] [address] 05/15/2023 3:00 PM EDT Office Visit Nutrition & Weight Management, [facility] 132 [facility] [place] [address] Preethi Fletcher PA-C 132 [facility] [place] [address] Scheduled Procedures Name Priority Associated Diagnoses Date/Ti [...] D LEVEL ONCE IN A LIFETIME-USE SMARTSET# [id number] Completed 08/02/2011, 04/24/2009, 06/25/2008, Additional history exists [...] Healthcare Agent Relationshi p Communication Michael Cifuentes [place] Spouse Health Care Repr esentative (appointed verbally by patient or by statute hierarchy) Care Teams Baker Head Relationship Specialty Start Date End Date Hayes Maurer DO 132 [place] [address] PCP - General Family Medicine 04/04/19 documented as of this encounter
--- OUTSIDE RECORDS SUMMARY | 2023-02-27 12:55 | External Medical Summary | Summary of Care ---
Author Name Unknown Organization [facility] Address [address] [place] [address] Phone [phone] Care Team Providers Care Mortar Mixer Operator Name Role Phone Hayes Maurer DO Primary Care Provider Reason for Visit * Reason Onset Date Comments Appointment 12/30/2022 Encounter Details Date Type Department Care Team (Late st Contact Info) Description 12/30/2022 Telephone Hematology/Oncology [facility] Helene [place] [address] [place] [address] Héctor Rodriguez MD [address] [place] [address] Appointment Allergies Active Allergy Reactions Criticality Noted [...] encounter Miscellaneous Notes * Telephone Encounter - Azul Lindo OSA - 12/30/2022 4:12 PM EDT Pt scheduled * Telephone Encounter - Kalani Askew OSA [...] 01/03/2023 2:15 PM EDT Nurse Only Hematology/Oncology [facility] [address] [place] [address] [place], Nurse Hem Onc [place] 200 [facility] [place]ene [place] [address] 02/08/2023 1:15 PM EST Imaging [facility] 2nd Floor Cardiology, [place] 132 [facility] [place] [address] 02/14/2023 3:00 PM EST Office Visit Neurology [facility] [place] [address] [place] [address] Sandhya Hanley MD [address] [place] [address] 03/07/2023 1:30 PM EST Office Visit Urology, [facility] 132 [facility] [place] [address] Sahil Funk MD [address] [address] [place] [address] 03/09/2023 4:40 PM EST Office Visit Family Practice [facility] 132 [facility] [place] [address] Hayes Maurer DO [address] [place] [address] 05/15/2023 3:00 PM EDT Office Visit Nutrition & Weight Management, [facility] 132 [facility] [place] [address] Preethi Fletcher PA-C 132 [facility] [place] [address] Scheduled Procedures Name Priority Associated Diagnoses Date/Ti [...] D LEVEL ONCE IN A LIFETIME-USE SMARTSET# [id number] Completed 08/02/2011, 04/24/2009, 06/25/2008, Additional history exists [...] patient or by statute hierarchy) Care Teams Mortar Mixer Operator Relationship Specialty Start Date End Date Hayes Maurer DO [address] [place] [address] PCP - General Family Medicine 04/04/19 documented as of this encounter
--- OUTSIDE RECORDS SUMMARY | 2023-02-27 12:55 | External Medical Summary | Summary of Care ---
Author Name Unknown Organization [facility] Address [address] [place] [address] Phone [phone] Care Team Providers Care Bag Liner Name Role Phone Hayes Maurer DO Primary Care Provider Reason for Visit * Reason Onset Date Comments Advice 12/28/2022 Encounter Details Date Type Department Care Team (Late st Contact Info) Description 12/28/2022 Telephone Hematology/Oncology [facility] [place]ene [place] [address] [place] [address] Héctor Rodriguez MD [address] [place] [address] Advice Allergies Active Allergy Reactions Criticality Noted [...] encounter Miscellaneous Notes * Telephone Encounter - Ariadna Maurer CMA [...] 12/29/2022 1:15 PM EDT Office Visit Hematology/Oncology [place], [place] [address] [place] [address] Héctor Rodriguez MD 200 [facility] [place] [address] 02/08/2023 1:15 PM EST Imaging [facility] 2nd Floor Cardiology, [place] [facility] [place] [address] 03/07/2023 1:30 PM EST Office Visit Urology, [facility] 132 [facility] [place] [address] Sahil Funk MD [address] [place] [address] [place] [address] 03/09/2023 4:40 PM EST Office Visit Family Practice [facility] 132 [facility] [place] [address] Hayes Maurer DO [address] [facility] [place] [address] 05/15/2023 3:00 PM EDT Office Visit Nutrition & Weight Management, [facility] 132 [facility] [place] [address] Preethi Fletcher PA-C [facility] [address] Scheduled Procedures Name Priority Associated Diagnoses Date/Ti [...] D LEVEL ONCE IN A LIFETIME-USE SMARTSET# [id number] Completed 08/02/2011, 04/24/2009, 06/25/2008, Additional history exists [...] Healthcare Agent Relationshi p Communication Michael Vane [place] Spouse Health Care Repr esentative (appointed verbally by patient or by statute hierarchy) Care Teams Bag Liner Relationship Specialty Start Date End Date Hayes Maurer DO [address] [place] [address] PCP - General Family Medicine 04/04/19 documented as of this encounter
--- OUTSIDE RECORDS SUMMARY | 2023-02-27 12:55 | External Medical Summary | Summary of Care ---
Author Name Unknown Organization [facility] Address [address] [place] [address] Phone [phone] Care Team Providers Care Experimental Box Tester Name Role Phone Hayes Maurer Primary Care Provider Reason for Visit * Reason Comments case management Encounter Details Date Type Department Care Team (Late st Contact Info) Description 12/28/2022 Home Comfort AdvisorIv Therapy Nurse [facility] [address] [address] India Wilks, RN [address] [place] [address] Medical home patient encounter* Allergies [...] Progress Notes * India Wilks RN - 12/28/2022 3:48 PM EDT CM Progress note S: Spoke with patient. She is very anxious for tomorrow oncology appointment and states, "I'm scared to ". She is repeatedly speaking of the findings on imaging from the hospital that there was possibly pneumonia vs malignancy. She also reports "if it is small can it just be removed". She has loose stools and took one imodium today, she asks if it is ok to take a second dose today. She reports that she no longer is coughing up a lot of mucus, and feels her breathing has improved. O: phone call follow up A: alert, oriented, anxious P: Reinforced the importance of appointment tomorrow, discussed this will be to determine the next course of action/plan. Instructed to take an imodium prior to the appointment to help her feel more comfortable in going. documented in this encounter Plan of Treatment Upcoming Encounters Date Type Department Care Team (Late st Contact Info) Description 01/03/2023 2:15 PM EDT Nurse Only Hematology/Oncology [facility] [address] [place] [address] [place], Nurse Hem Onc [facility] 200 [facility] [place] [address] 02/08/2023 1:15 PM EST Imaging [facility] 2nd Floor Cardiology, [place] 132 [facility] [place] [address] 02/14/2023 3:00 PM EST Office Visit Neurology [facility] 200 [facility] [place] [address] Sandhya Hanley MD 200 [facility] [place] [address] 03/07/2023 1:30 PM EST Office Visit Urology, [facility] 132 [facility] [place] [address] Sahil Funk MD [address] [place] [address] [place] [address] 03/09/2023 4:40 PM EST Office Visit Family Practice [facility] [address] [place] [address] Hayes Maurer DO [address] [place] [address] 05/15/2023 3:00 PM EDT Office Visit Nutrition & Weight Management, [facility] [address] [place] [address] Preethi Fletcher PA-C [address] [place] [address] Scheduled Procedures Name Priority Associated Diagnoses Date/Ti [...] D LEVEL ONCE IN A LIFETIME-USE SMARTSET# [id number] Completed 08/02/2011, 04/24/2009, 06/25/2008, Additional history exists [...] Relationship Healthcare Agent Relationshi p Communication Michael J Funk Spouse Health Care Repr esentative (appointed verbally by patient or by statute hierarchy) Care Teams Experimental Box Tester Relationship Specialty Start Date End Date Hayes Maurer DO [address] [place] [address] PCP - General Family Medicine 04/04/19 documented as of this encounter
--- OUTSIDE RECORDS SUMMARY | 2023-02-27 12:55 | External Medical Summary | Summary of Care ---
Author Name Unknown Organization [facility] Address [address] [place] [address] Phone [phone] Care Team Providers Care Elevator Constructor Name Role Phone Hayes Maurer Primary Care Provider Reason for Visit * Reason Onset Date Comments Precert Future 12/30/2022 Carbo/ etoposide / udenyca Encounter Details Date Type Department Care Team (Late st Contact Info) Description 12/30/2022 Telephone Hematology/Oncology Treatment, [place] [address] [place] [address] Héctor Rodriguez MD [address] [place] [address] Precert Future (Carbo/ etoposide/ udenyca) Allergies Active [...] EDT Order received for carboplatin/ etoposide/ udenyca. [place] plan built and routed for signature. Waiting for auth. Consent signed 12/29/22. Patient is coming 01/03/23 for nurse education- will need hep B labs. Lab orders still need to be placed. documented in this encounter Plan of Treatment Upcoming Encounters Date Type Department Care Team (Late st Contact Info) Description 01/03/2023 2:15 PM EDT Nurse Only Hematology/Oncology [facility] [place] [address] [place], [place] [address] Hel[place], Nurse Hem Onc [facility] 200 [facility] [place] [address] 02/08/2023 1:15 PM EST Imaging [facility] 2nd Floor Cardiology, [place] 132 [facility] [place] [address] 03/07/2023 1:30 PM EST Office Visit Urology, [facility] 132 [facility] [place] [address] Sahil Funk MD [address] [place] 270 [place] [address] 03/09/2023 4:40 PM EST Office Visit Family Practice [facility] 132 [facility] [place] [address] Hayes Maurer DO [address] [place] [address] 05/15/2023 3:00 PM EDT Office Visit Nutrition & Weight Management, [facility] 132 [facility] [place] [address] Preethi Fletcher PA-C 132 [facility] [place] [address] Scheduled Procedures Name Priority Associated Diagnoses Date/Ti [...] D LEVEL ONCE IN A LIFETIME-USE SMARTSET# [id number] Completed 08/02/2011, 04/24/2009, 06/25/2008, Additional history exists [...] patient or by statute hierarchy) Care Teams Elevator Constructor Relationship Specialty Start Date End Date Hayes Maurer DO 132 [place] [address] PCP - General Family Medicine 04/04/19 documented as of this encounter
--- OUTSIDE RECORDS SUMMARY | 2023-02-27 12:55 | External Medical Summary | Summary of Care ---
Author Name Unknown Organization [facility] Address [address] [place] [address] Phone [phone] Care Team Providers Care Distance Education Teacher Name Role Phone Hayes Maurer Primary Care Provider Reason for Visit * Reason Onset Date Comments Medication Refill 01/06/2023 Encounter Details Date Type Department Care Team (Late st Contact Info) Description 01/06/2023 Refill Hematology/Oncology Treatment, [place] [address] [facility] [place] [address] Addison Rodriguez MD 200 [place] [address] Small cell lung cancer (HCC)* Allergies Active [...] mRNA, LNP-s, No Pre serve, 2-Dose Series ([employer]) 03/04/2021,07/22/2020,07/01/2020 Pneumococcal Conjugate Vacc, 13 Valent (Prevnar) [...] encounter Miscellaneous Notes * Telephone Encounter - Charlene LujanAMY - 01/06/2023 3:50 PM EDTSigned Prescriptions: Disp Refills Ondansetron HCl 8 MG Oral Tablet (Zofran) 30 Tab*3 Sig: Take 1 Tablet by mouth every 8 hours as needed for Nausea.Authorizing Provider: ADDISON RODRIGUEZ Prochlorperazine Maleate 10 MG Oral Tablet*30 [...] 1:00 PM EST Hem/Onc Treatment Hematology/Oncology Treatment, [address], [place] [address] Helene, Chair 6 Hem Onc [address] [place] [address], [place] [address] 01/11/2023 2:00 PM EST Hem/Onc Treatment Hematology/Oncology Treatment, [address], [place] [address] Helene, Chair 6 Hem Onc [place] 200 [facility] [place] [address] 01/12/2023 2:00 PM EST Hem/Onc Treatment Hematology/Oncology Treatment, [place] 200 [facility], [place] [address] Helene, Chair 4 Hem Onc [place]enery 200 [facility] [place] [address] 02/08/2023 1:15 PM EST Imaging [facility] 2nd Floor Cardiology, [place] 132 [facility] [place] [address] 02/14/2023 3:00 PM EST Office [facility] [address] [place] [address] Sandhya Hanley MD 200 [facility] [place] [address] 03/07/2023 1:30 PM EST Office Visit Urology, [facility] 132 [facility] [place] [address] Sahil Funk MD [address] [place] 270 [place] [address] 03/09/2023 4:40 PM EST Office Visit Family Practice [facility] 132 [facility] [place] [address] Hayes Maurer DO [facility] [place] [address] 05/15/2023 3:00 PM EDT Office Visit Nutrition & Weight Management, [facility] 132 [facility] [place] [address] Preethi Fletcher, JOHN 132 [facility] [place] [address] Scheduled Procedures Name Priority Associated Diagnoses Date/Ti [...] SMARTSET #[id number]) 08/09/2022 COVID-19 Vaccine (4 - 2023-24 season) 2022 03/04/2021, 07/22/2020, 07/01/2020 Influenza Vaccine (FLU shot) (#1) 2022 Depression Screening 03/15/2023 03/15/2022 O2 ASSESSMENT COMPLETED IN PAST YEAR FOR COPD 07/20/2023 07/19/2022 TSH 12/28/2023 12/27/2022, 10/05, 10/06/2022, Additional history exists Lipid Panel 03/15/2027 03/15/2022, 02/05, 10/01/2019, Additional history exists COLONOSCOPY-EVERY 5 YRS AGES 18-100 10/18/2027 10/17/2022, 12/26/2017, 12/26/2017, Additional history exists VITAMIN D LEVEL ONCE IN A LIFETIME-USE SMARTSET# [id number] Completed 08/02/2011, 04/24/2009, 06/25/2008, Additional history exists [...] Healthcare Agent Relationshi p Communication Michael Cifuentes [place] Spouse Health Care Repr esentative (appointed verbally by patient or by statute hierarchy) Care Teams Distance Education Teacher Relationship Specialty Start Date End Date Hayes Maurer DO 132 [place] [address] PCP - General Family Medicine 04/04/19 documented as of this encounter
--- OUTSIDE RECORDS SUMMARY | 2023-02-27 12:55 | External Medical Summary | Summary of Care ---
Author Name Unknown Organization [facility] Address [address] [place] [address] Phone [phone] Care Team Providers Care Property Insurance Inspector Name Role Phone Hayes Maurer DO Primary Care Provider Reason for Visit * Reason Onset Date Comments Advice 12/28/2022 Encounter Details Date Type Department Care Team (Late st Contact Info) Description 12/28/2022 Telephone Hematology/Oncology [facility] [place] [address] [place] [address] Héctor Rodriguez MD [address] [place] [address] Advice Allergies Active Allergy Reactions Criticality Noted [...] encounter Miscellaneous Notes * Telephone Encounter - JADYN Cervantes - [...] 12/29/2022 1:15 PM EDT Office Visit [facility] 200 [facility] [place] [address] Héctor Rodriguez MD 200 [facility] [place] [address] 02/08/2023 1:15 PM EST Imaging [facility] 2nd Floor Cardiology, [place] 132 [facility] [place] [address] 03/07/2023 1:30 PM EST Office Visit Urology, [facility] 132 [facility] [place] [address] Sahil Funk MD [address] [facility] 270 [place] [address] 03/09/2023 4:40 PM EST Office Visit Family Practice [facility] 132 [facility] [place] [address] Hayes Maurer DO [address] [place] [address] 05/15/2023 3:00 PM EDT Office Visit Nutrition & Weight Management, [facility] [place] [address] Preethi Fletcher PA-C [address] [place] [address] Scheduled Procedures Name Priority Associated Diagnoses Date/Ti [...] D LEVEL ONCE IN A LIFETIME-USE SMARTSET# [id number] Completed 08/02/2011, 04/24/2009, 06/25/2008, Additional history exists [...] patient or by statute hierarchy) Care Teams Property Insurance Inspector Relationship Specialty Start Date End Date Hayes Maurer DO 132 [place] [address] PCP - General Family Medicine 04/04/19 documented as of this encounter
--- OUTSIDE RECORDS SUMMARY | 2023-02-27 12:55 | External Medical Summary | Summary of Care ---
Author Name Unknown Organization [facility] Address [address] [place] [address] Phone [phone] Care Team Providers Care Manager Digital Ad Operations Name Role Phone Hayes Maurer Primary Care Provider Reason for Visit * Reason Onset Date Comments Precert Future 12/30/2022 Carbo/ etoposide / udenyca Encounter Details Date Type Department Care Team (Late st Contact Info) Description 12/30/2022 Telephone Hematology/Oncology Treatment, [place] [address] [place] [address] Héctor Rodriguez MD [address] [place] [address] Precert Future (Carbo/ etoposide/ udenyca) Allergies Active [...] EDT Order received for carboplatin/ etoposide/ udenyca. [place] plan built and routed for signature. Waiting for auth. Consent signed 12/29/22. Patient is coming 01/03/23 for nurse education- will need hep B labs. Lab orders still need to be placed. documented in this encounter Plan of Treatment Upcoming Encounters Date Type Department Care Team (Late st Contact Info) Description 01/03/2023 2:15 PM EDT Nurse Only Hematology/Oncology [facility] [address] [place] [address] [place], Nurse Hem Onc [facility] 200 [facility] [address] 02/08/2023 1:15 PM EST Imaging [facility] 2nd Floor Cardiology, [place] 132 [facility] [place] [address] 02/14/2023 3:00 PM EST Office Visit Neurology [facility] [address] [place] [address] Sandhya Hanley MD [address] [place] [address] 03/07/2023 1:30 PM EST Office Visit Urology, [facility] 132 [facility] [place] [address] Sahil Funk MD [address] [facility] 270 [place] [address] 03/09/2023 4:40 PM EST Office Visit Family Practice [facility] [address] [place] [address] Hayes Maurer DO 132 [facility] [place] [address] 05/15/2023 3:00 PM EDT Office Visit Nutrition & Weight Management, [facility] [place] [address] Preethi Fletcher PA-C [address] [place] [address] Scheduled Procedures Name Priority Associated Diagnoses Date/Ti [...] D LEVEL ONCE IN A LIFETIME-USE SMARTSET# [id number] Completed 08/02/2011, 04/24/2009, 06/25/2008, Additional history exists [...] patient or by statute hierarchy) Care Teams Manager Digital Ad Operations Relationship Specialty Start Date End Date Hayes Maurer DO 132 [place] [address] PCP - General Family Medicine 04/04/19 documented as of this encounter
--- OUTSIDE RECORDS SUMMARY | 2023-02-27 12:55 | External Medical Summary ---
Author Name Unknown Address Unknown Organization K01:[facility] - [facility] [address] [place] [address] Laboratory Report Ordering Provider Test Date Status PARISH JAIME 01/06/2023 15:50:00 Final Observation Date Value Abnormality Reference (Units ) Status Hepatitis B virus core Ab [Presence] in Serum 01/06/2023 15:50:00 Negative Negative Final Performing Location [facility] [place] - [address] [place] [address]
--- OUTSIDE RECORDS SUMMARY | 2023-02-27 12:55 | External Medical Summary ---
Author Name Unknown Address Unknown Organization K09:[facility] [address] [place] [address] Laboratory Report Ordering Provider Test Date Status PARISH JAIME 01/06/2023 15:51:32 Final Observation Date Value Abnormality Reference (Units ) Status BUN 01/06/2023 15:51:32 19 6-20 (mg/dL) Final Creatinine 01/06/2023 15:51:32 0.7 0.5-1.0 (mg/dL) Final Glomerular filtration rate/1.73 sq M.predicted [Volume Rate/Area] in Serum, Plasma or Blood by Creatinine-based formula (CKD-EPI) 01/06/2023 15:51:32 >90 >=60 (mL/min) Final eGFR is calculated based on the CKD-EPI 2020 equation SODIUM 01/06/2023 15:51:32 137 135-146 (m mol/L) Final Potassium 01/06/2023 15:51:32 4.1 3.5-5.1 (m mol/L) Final Cl 01/06/2023 15:51:32 99 98-107 (mm ol/L) Final CO2 01/06/2023 15:51:32 30 22-32 (mmo l/L) Final Anion gap 01/06/2023 15:51:32 8 7-15 (mmol /L) Final Glucose 01/06/2023 15:51:32 92 70-120 (mg /dL) Final Albumin 01/06/2023 15:51:32 4.0 3.8-5.0 (g /dL) Final AST (Aspartate aminotransferase) 01/06/2023 15:51:32 12 10-35 (U/L) Fin al Alk Phos 01/06/2023 15:51:32 108 35-130 (U/ L) Final Bilirubin, Total 01/06/2023 15:51:32 0.4 <=1 .2 (mg/dL) Final Calcium 01/06/2023 15:51:32 9.1 8.4-10.2 ( mg/dL) Final Protein 01/06/2023 15:51:32 7.5 6.0-8.3 (g /dL) Final ALT (Alanine aminotransferase) 01/06/2023 15:51:32 <5 Below low normal 10-35 (U/L) Final Performing Location [facility] [address] [place] [address]
--- OUTSIDE RECORDS SUMMARY | 2023-02-27 12:55 | External Medical Summary | Summary of Care ---
Author Name Unknown Organization [facility] Address [address] [place] [address] Phone [phone] Care Team Providers Care Citrix Consultant Name Role Phone Hayes Maurer DO Primary Care Provider Reason for Visit * Reason Onset Date Comments case management 01/03/2023 Encounter Details Date Type Department Care Team (Late st Contact Info) Description 01/03/2023 Social Services Coordinator Telephone Family [facility] [address] [facility] [place] [address] India Wilks, RN [address] [place] [address] case management Allergies Active Allergy Reactions Criticality Noted Date Comments Morphine 03/26/1997 Shock, dyspnea Other reaction(s): shock, dspnea Neomycin 04/07/2013 documented as of this encounter (statuses as of 01/03/2023) Medications Medication Sig Dispensed Refills Start Date [...] as of this encounter (statuses as of 01/03/2023) Active Problems Problem Noted Date Diagnosed Date [...] as of this encounter (statuses as of 01/03/2023) Resolved Problems Problem Noted Date Diagnosed Date [...] as of this encounter (statuses as of 01/03/2023) Immunizations Name Administration Dates Next Due COVID-19 [...] Telephone Encounter - India Wilks RN - 01/03/2023 10:58 AM EDT CM Progress note S: Spoke with patient. She was disappointment that her hem/onc appointment was cancelled today, shewas hoping to get it over with. She continues to have sensitivity on her scalp. She voiced concern over losing her hair, reporting that Dr. Rodriguez felt she may possibly just have thinning of her hair.She had a normal bowel movement today. She has been using PRN imodium. She did discuss FMLA with her . She "is hoping that isn't needed". O: phone call follow up A: Alert, oriented P: Reinforced care plan as established. documented in this encounter Plan of Treatment Upcoming Encounters Date Type Department Care Team (Late st Contact Info) Description 01/06/2023 2:15 PM EDT Nurse Only Hematology/Oncology [facility] [address] [place] [address] Helene, Nurse Hem Onc [address] [facility] [place] [address] 02/08/2023 1:15 PM EST Imaging [facility] 2nd Floor Cardiology, [place] [address] [facility] [place] [address] 02/14/2023 3:00 PM EST Office Visit Neurology [facility] [place] [address] [place] [address] Sandhya Hanley MD [address] [place] [address] 03/07/2023 1:30 PM EST Office Visit Urology, [facility] [address] [facility] [place] [address] Sahil Funk MD [address] [address] [place] [address] 03/09/2023 4:40 PM EST Office Visit Family Practice [facility] [address] [facility] [place] [address] Hayes Maurer DO [address] [place] [address] 05/15/2023 3:00 PM EDT Office Visit Nutrition & Weight Management, [facility] [address] [facility] [place] [address] Preethi Fletcher PA-C 132 [facility] [place] [address] Scheduled Procedures Name Priority Associated Diagnoses Date/Ti [...] D LEVEL ONCE IN A LIFETIME-USE SMARTSET# 87780 Completed 08/02/2011, 04/24/2009, 06/25/2008, Additional history exists [...] patient or by statute hierarchy) Care Teams Citrix Consultant Relationship Specialty Start Date End Date Hayes Maurer DO [address] [place] [address] PCP - General Family Medicine 04/04/19 documented as of this encounter
--- OUTSIDE RECORDS SUMMARY | 2023-02-27 12:55 | External Medical Summary ---
Author Name Unknown Address Unknown Organization K09:[facility] [place] [address] Laboratory Report Ordering Provider Test Date Status PARISH JAIME 01/06/2023 15:51:18 Final Observation Date Value Abnormality Reference (Units ) Status WBC, Total 01/06/2023 15:51:18 8.27 4.00-10.8 0 (K/uL) Final RBC 01/06/2023 15:51:18 4.10 3.85-5.15 (M/uL) Final Hemoglobin 01/06/2023 15:51:18 12.3 12.0-15.3 (g/dL) Final HCT 01/06/2023 15:51:18 40.0 36.0-45.2 (%) Final MCV 01/06/2023 15:51:18 97.6 81.5-97.5 (fL) Final MCH 01/06/2023 15:51:18 30.0 27.0-34.0 (pg) Final MCHC 01/06/2023 15:51:18 30.8 32.0-36.0 (g/dL) Final RDW 01/06/2023 15:51:18 13.6 11.5-15.5 (%) Final Platelets 01/06/2023 15:51:18 260 140-400 (K /uL) Final MPV 01/06/2023 15:51:18 9.1 6.6-11.1 ( fL) Final Performing Location [facility] [place] [address]
--- OUTSIDE RECORDS SUMMARY | 2023-02-27 12:55 | External Medical Summary | Summary of Care ---
Author Name Unknown Organization [facility] Address [address] [place] [address] Phone [phone] Care Team Providers Care Can Doffer Name Role Phone Haeys Maurer DO Primary Care Provider Reason for Visit * Reason Onset Date Comments Appointment 12/27/2022 Encounter Details Date Type Department Care Team (Late st Contact Info) Description 12/27/[address] [facility] [address] [address] Hayes Maurer DO [address] [place] [address] Appointment Allergies Active Allergy Reactions Criticality Noted [...] morning. 45 Tablet 3 10/07/19 23 Active Furosemide 20 MG Oral Tablet (Lasix) [...] in the morning. 30 Tablet 3 12/17/19 Active Pantoprazole Sodium 40 MG Oral Tablet Delayed Release (Protonix)Indicati ons:Esophagitis Take 1 Tablet by mouth in the morning. 90 Tablet 3 10/07/19 23 023 Discontinued Ipratropium-Albute rol 0.5-2.5 (3) MG/3ML Inhalation Solution (Duoneb)Indication s:COPD, group B, by GOLD 2017 classification (HCC) Inhale 3 mL via nebulizer every 6 hours as needed for Cough, Shortness of Breath or Wheezing. 360 mL 3 10/07/19 Discontinued(Me dication List Clean Up) Vancomycin HCl 125 MG Oral Capsule (Vancocin) Taper: 125mg by mouth four times daily x 2 weeks, 125mg by mouth twice daily x 1 week, 125mg by mouth daily x 1 week, 125mg by mouth every other day x 2 weeks. 84 Capsule 0 10/14/19 23 Discontinued Potassium Chloride Laba ER 20 MEQ Oral Tablet Extended Release Take 1 Tablet by mouth in the morning. 0 Discontinued(Me dication List Clean Up) Famotidine 40 MG Oral Tablet (Pepcid) Take 1 Tablet by mouth in the morning. 0 Discontinued(Me dication List Clean Up) D5W 5% SOLN 50 mL with hEParin 1000 UNIT/ML SOLN 5,000 Units Infuse intravenously continuous. 0 Discontinued(Me dication List Clean Up) Ondansetron 4 MG Oral Film (Zuplenz) Take by mouth. 0 Discontinued(Me dication List Clean Up) Docusate Sodium 100 MG Oral Capsule (Colace) Take 1 Capsule by mouth in the morning and 1 Capsule before bedtime. 0 Discontinued(Me dication List Clean Up) Magnesium Hydroxide [...] morning and 1 Tablet before bedtime. 0 023 Discontinued Polyethylene Glycol 3350 17 GM Oral Packet (MiraLax) Take 1 Packet by mouth in the morning. 0 023 Discontinued(Me dication List Clean Up) Saccharomyces boulardii 250 MG Oral Capsule (Florastor) Take 1 Capsule by mouth in the morning and 1 Capsule before bedtime. 0 023 Discontinued Potassium Chloride ER 10 MEQ Oral Tablet Extended Release Take 1 Tablet by mouth in the morning. 0 11/16/19 23 023 Discontinued(Me dication List Clean Up) documented as of this encounter (statuses as [...] mRNA, LNP-s, No Pre serve, 2-Dose Series ([employer]) 03/04/2021,07/22/2020,07/01/2020 Pneumococcal Conjugate Vacc, 13 Valent (Prevnar) [...] Telephone Encounter - India Wilks RN - 12/27/2022 4:11 PM EDT Patient was seen by PCP, Erasto Scott today. 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 Patient initially felt "what is the point in going", but now She would like to be re-scheduled as soon as possible to discuss diagnosis and possible treatment plan. Her is offon and Monday of this week, but later afternoons work better for their schedule otherwise when possible. Hem/onc scheduling team, Can you please arrange appointment? Thank you documented in this encounter Plan of Treatment Upcoming Encounters Date Type Department Care Team (Late st Contact Info) Description 01/03/2023 2:15 PM EDT Nurse Only Hematology/Oncology [facility] [address] [place] [address] Helene, Nurse Hem Onc [facility] 200 [place] [address] 02/08/2023 1:15 PM EST Imaging [facility] 2nd Floor Cardiology, [place] [address] [place] [address] 03/07/2023 1:30 PM EST Office Visit Urology, [facility] [address] [place] [address] Sahil Funk MD [address] [address] [place] [address] 03/09/2023 4:40 PM EST Office Visit Family Practice [facility] [address] [place] [address] Hayes Maurer DO [address] [place] [address] 05/15/2023 3:00 PM EDT Office Visit Nutrition & Weight Management, [facility] [address] [place] [address] Preethi Fletcher PA-C [address] [place] [address] Scheduled Procedures Name Priority Associated Diagnoses Date/Ti [...] D LEVEL ONCE IN A LIFETIME-USE SMARTSET# [id number] Completed 08/02/2011, 04/24/2009, 06/25/2008, Additional history exists [...] patient or by statute hierarchy) Care Teams Can Doffer Relationship Specialty Start Date End Date Hayes Maurer DO [address] [place] [address] PCP - General Family Medicine 04/04/19 documented as of this encounter
--- OUTSIDE RECORDS SUMMARY | 2023-02-27 12:55 | External Medical Summary | Summary of Care ---
Author Name Unknown Organization [facility] Address [address] [place] [address] Phone [phone] Care Team Providers Care Circulation Worker Name Role Phone Hayes Maurer Primary Care Provider Reason for Visit * Reason Onset Date Comments Precert Future 12/30/2022 Carbo/ etoposide / udenyca Encounter Details Date Type Department Care Team (Late st Contact Info) Description 12/30/2022 Telephone Hematology/Oncology Treatment, [place] [address] [place] [address] Héctor Rodriguez MD [address] [place] [address] Precert Future (Carbo/ etoposide/ udenyca) Allergies Active [...] encounter Miscellaneous Notes * Telephone Encounter - Brandee Pearson OSA - 01/06/2023 2:18 PM EDT Scheduled as requested starting 01/10/23 * Telephone Encounter - Pili Bucio RN [...] EDT Order received for carboplatin/ etoposide/ udenyca. [employer] plan built and routed for signature. Waiting for auth. Consent signed 12/29/22. Patient is coming 01/03/23 for nurse education- will need hep B labs. Lab orders still need to be placed. documented in this encounter Plan of Treatment Upcoming Encounters Date Type Department Care Team (Late st Contact Info) Description 01/06/2023 3:30 PM EDT Laboratory Laboratory [facility] [address] [place] [address] [facility] [address] [facility] [place] [address] 01/10/2023 1:00 PM EST Hem/Onc Treatment [facility]ology[facility] [place] [facility] [address] Helene, Chair [address] [facility] [address] [facility] [place] [address] 01/11/2023 1:00 PM EST Hem/Onc Treatment [facility]ematology[facility] [place] [facility] [address] Helene, Chair 6 Hem Onc [facility] [address] [place] [address] 01/12/2023 1:00 PM EST Hem/Onc Treatment Hematology/Oncology Treatment, [place] [address] [place] [address] Helene, Chair 4 Hem Onc [address] [facility] [place] [address] 02/08/2023 1:15 PM EST Imaging [facility] 2nd Floor Cardiology, [place] [address] [place] [address] 02/14/2023 3:00 PM EST Office Visit Neurology [facility] [place] [address] [place] [address] Sandhya Hanley MD [address] [place] [address] 03/07/2023 1:30 PM EST Office Visit [facility], [facility] [place] [address] Sahil Funk MD [address] [facility] [address] [place] [address] 03/09/2023 4:40 PM EST Office Visit Family Practice [facility] [address] [place] [address] Hayes Maurer, [address] [place] [address] 05/15/2023 3:00 PM EDT Office Visit Nutrition & Weight Management, [facility] [address] [place] [address] Preethi Fletcher PA-C [address] [place] [address] Scheduled Procedures Name Priority Associated Diagnoses Date/Ti [...] D LEVEL ONCE IN A LIFETIME-USE SMARTSET# [id number] Completed 08/02/2011, 04/24/2009, 06/25/2008, Additional history exists [...] patient or by statute hierarchy) Care Teams Circulation Worker Relationship Specialty Start Date End Date Hayes Maurer DO [address] [place] [address] PCP - General Family Medicine 04/04/19 documented as of this encounter
--- OUTSIDE RECORDS SUMMARY | 2023-02-27 12:56 | External Medical Summary | Summary of Care ---
Author Name Unknown Organization [facility] Address [address] [place] [address] Phone [phone] Care Team Providers Care Lithographic Photographer Apprentice Name Role Phone Hayes Maurer DO Primary Care Provider Reason for Visit * Reason Onset Date Comments Medication Problem 12/15/2022 Encounter Details Date Type Department Care Team Description 12/15/2022 Telephone Family Practice [facility] [address] [place] [address] Hayes Maurer DO [address] [place] [address] Medication Problem Allergies Active Allergy Reactions Severity Noted Date Comments Morphine 03/26/1997 Shock, dyspnea Other reaction(s): shock, dspnea Neomycin 04/07/2013 documented as of this encounter (statuses as of 12/16/2022) Medications Medication Sig Dispensed Refills Start Date [...] the morning. 45 Tablet 3 10/06/2022 Active Pantoprazole Sodium 40 MG Oral Tablet Delayed Release (Protonix)Indication s:Esophagitis Take 1 Tablet by mouth in the morning. 90 Tablet 3 10/06/2022 Active Ipratropium-Albutero l 0.5-2.5 (3) MG/3ML Inhalation Solution (Duoneb)Indications: COPD, group B, by GOLD 2017 classification ([facility]) Inhale 3 mL via nebulizer every 6 hours as needed for Cough, Shortness of Breath or Wheezing. 360 mL 3 10/06/2022 Active Vancomycin HCl 125 MG Oral Capsule (Vancocin) Taper: 125mg by mouth four times daily x 2 weeks, 125mg by mouth twice daily x 1 week, 125mg by mouth daily x 1 week, 125mg by mouth every other day x 2 weeks. 84 Capsule 0 10/13/2022 Active Furosemide 20 MG Oral Tablet (Lasix) Take 1 Tablet by mouth in the morning and 1 Tablet before bedtime. 0 Active Potassium Chloride Alba ER 20 MEQ Oral Tablet Extended Release Take 1 Tablet by mouth in the morning. 0 Active Famotidine 40 MG Oral Tablet (Pepcid) Take 1 Tablet by mouth in the morning. 0 Active D5W 5% SOLN 50 mL with hEParin 1000 UNIT/ML SOLN 5,000 Units Infuse intravenously continuous. 0 Active levoFLOXacin 750 MG Oral Tablet (Levaquin) Take 1 Tablet by mouth in the morning. 0 Active Ondansetron 4 MG Oral Film (Zuplenz) Take by mouth. 0 A ctive Docusate Sodium 100 MG Oral Capsule (Colace) Take 1 Capsule by mouth in the morning and 1 Capsule before bedtime. 0 Active Magnesium Hydroxide 400 MG/5ML Oral Suspension (Milk of Magnesia) Take by mouth daily as needed for Constipation. 0 Active Bisacodyl 10 MG Rectal Suppository (Dulcolax) Administer 1 Suppository into the rectum in the morning. 0 Active Fleet Enema Rectal Enema Administer into the rectum. 0 Active Sennosides 8.6 MG Oral Tablet (Senokot) Take 1 Tablet by mouth in the morning and 1 Tablet before bedtime. 0 Active Polyethylene Glycol 3350 17 GM Oral Packet (MiraLax) Take 1 Packet by mouth in the morning. 0 Active Acetaminophen 500 MG Oral Packet Take by mouth. 0 Active Anoro Ellipta 62.5-25 MCG/ACT Inhalation Aerosol Powder Breath Activated (umeclidinium-vilant saadia) Inhale 1 Puff by mouth. 0 Active Saccharomyces boulardii 250 MG Oral Capsule (Florastor) Take 1 Capsule by mouth in the morning and 1 Capsule before bedtime. 0 Active Levothyroxine Sodium 100 MCG Oral Tablet (Levoxyl) Take 1 Tablet by mouth in the morning. (at least 30 min prior to breakfast or other meds). 90 Tablet 3 11/17/2022 Active documented as of this encounter (statuses as of 12/16/2022) Active Problems Problem Noted Date Medical home patient encounter COPD, group B, by GOLD 2017 classificati on 08/15/2022 Overview: Per COPD GOLD Classification History of colon polyps 09/04/2018 Positive colorectal cancer screening usi ng Cologuard test 11/07/2017 High risk for fracture due to osteoporos is by DEXA scan 11/01/2016 Pulmonary hypertension 01/17/2007 ADVANCE DIRECTIVE INFORMATION 01/05/2006 Overview: Information offered-patient declined. LUMB-LUMBOSAC DISC DEGEN 06/20/2002 Acquired hypothyroidism 07/24/1997 documented as of this encounter (statuses as of 12/16/2022) Resolved Problems Problem Noted Date Resolved Date COPD, moderate 07/06/2017 08/18/2022 Overview: Per COPD GOLD Classification Vitamin B 12 deficiency 10/26/2011 12/01/19 18 Vitamin D deficiency 10/25/2011 11/30/2017 Dermatitis 04/23/2011 11/30/2017 Benign neoplasm of colon 05/22/2007 019 Overview: 5 2-3 mm polyps- hyperplastic polyps--repeat 3 years Gastritis and gastroduodenitis 04/24/2007 0 11/30/2017 Overview: mild chronic gastritic inflammation Shortness of breath 2007 03/14/2008 Chest pain 2007 03/14/2008 Pulmonary hypertension 12/08/2006 7 FAM HX-DIABETES MELLITUS 04/13/2000 009 Perimenopause 07/24/1997 03/14/2008 documented as of this encounter (statuses as of 12/16/2022) Immunizations Name Administration Dates Next Due COVID-19 mRNA, LNP-s, No Pre serve, 2-Dose Series ([employer]) 03/04/2021,07/22/2020,07/01/2020 Hepatitis B Vaccine 03/26/1997 Pneumococcal Conjugate [...] drink = 0.6 oz pur e alcohol) Sex Assigned at Date Recorded Not on file Job Start Date Occupation Industry Not on file Not on file Not on file documented as of this encounter Miscellaneous Notes * Telephone Encounter - Christine Parra LPN - 12/16/2022 1:51 PM EDT Spoke with pt and she needs her Potassium 10 paradise sent to [facility] as she can not swallow the capsules, will send over tablets for pt. When checking on the Potassium it appears she had an increase in the dose back in July and should be on 20 meq daily. Will send to covering provider to determine dose and to send over new script with tablets and not capsules. * Telephone Encounter - JADYN Kenny - 12/16/2022 11:56 AM EDT Pt calling very mad. Says she wants to talk to office. Transferring to office. * Telephone Encounter - Kinza Zaragoza, forge shop machine repairer - 12/15/2022 5:46 PM EDT Pt calling [...] Thank you for your assistance Kinza Zaragoza Job Coach/Job Developer II [facility] (Former[facility]) 12/15/2022,5:53 PM documented in this encounter Plan of Treatment Upcoming Encounters Date Type Specialty Care Team Description 02/08/2023 Imaging Radiology 03/07/2023 Office Visit Urology Sahil Funk MD [address] [place] [address] [place] [address] 03/09/2023 Office Visit Family Medicine Hayes Maurer DO [address] [place] [address] Scheduled Procedures Name Priority Associated Diagnoses Date/Ti me COLONOSCOPY FLEXIBLE PROXIMA L DIAGNOSTIC Recall History of colon polyps Special screening for malignant neoplasms, colon Health Maintenance Due Date Last Done Comments DISCUSS TOBACCO CESSATION (REFER TO SMARTSET #0631) 1950 Hepatitis B (2 of 3 - 19+ [...] PAST YEAR FOR COPD 07/20/2023 07/19/2022 TSH 10/25/2023 10/24/2022, 08/05/2022, 03/15/2022, Additional history exists Lipid Panel 03/15/2027 03/15/2022, 02/05, 10/01/2019, Additional history exists COLONOSCOPY-EVERY 5 YRS AGES 18-100 10/18/2027 10/17/2022, 12/26/2017, 12/26/2017, Additional history exists VITAMIN D LEVEL ONCE IN A LIFETIME-USE SMARTSET# [id number] Completed 08/02/2011, 04/24/2009, 06/25/2008, Additional history exists Mammogram Discontinued 12/18/2014, 11/05, 12/22/2006, Additional history exists Pneumococcal Vaccine: 65+ Years Completed 08/10/2017, 06/14/2016 Alpha-1 Antitrypsin Completed 03/15/2022 LUNG CANCER SCREENING - USE SMARTSET [id number] Completed 11/21/2022, 10/29/2022, 06/23/2022, Additional history exists GARDASIL-HPV IMMUNIZATION SERIES Aged Out No longer eligible based on patient's age to complete this topic MENINGOCOCCAL (MENACTRA/MENVEO) Aged Out No longer eligible based on patient's age to complete this topic documented as of this encounter Medical Devices Not on filedocumented as of this encounter Advance Directives Healthcare Agents on File Name Relationship Healthcare Agent Relationshi p Communication Michael Cifuentes Baldwin Spouse Health Care Repr esentative (appointed verbally by patient or by statute hierarchy) Care Teams Lithographic Photographer Apprentice Relationship Specialty Start Date End Date Hayes Maurer DO [address] [place] [address] PCP - General Family Medicine 04/04/19 documented as of this encounter
--- OUTSIDE RECORDS SUMMARY | 2023-02-27 12:56 | External Medical Summary | Summary of Care ---
Author Name Unknown Organization [facility] Address [address] [place] [address] Phone [phone] Care Team Providers Care Classroom Assistant Name Role Phone Hayes Maurer DO Primary Care Provider Reason for Visit * Reason Onset Date Comments Medication Problem 12/15/2022 Encounter Details Date Type Department Care Team Description 12/15/2022 Telephone Family Practice [facility] [address] [place] [address] Hayes Maurer DO [address] [place] [id number] Medication Problem Allergies Active Allergy Reactions Severity [...] COPD, group B, by GOLD 2017 classification ([facility]) Inhale 3 mL via nebulizer every 6 [...] Problem Noted Date Medical home patient encounter 3 COPD, group B, by GOLD 2017 classificati [...] encounter Miscellaneous Notes * Addendum Note - Zeeshan Harman MD [...] Transferring to office. * Telephone Encounter - CON Ashley - 12/15/2022 5:46 PM EDT Pt calling [...] Thank you for your assistance Kinza Zaragoza Named Account Executive II [facility] ([facility]) (Formerly Tele[facility]) 12/15/2022,5:53 PM documented in this encounter Plan of Treatment Upcoming Encounters Date Type Specialty Care Team Description 02/08/2023 Imaging Radiology 03/07/2023 Office Visit Urology Sahil Funk MD [address] [place] [address] [place] [address] 03/09/2023 Office Visit Family Medicine Hayes Maurer DO [address] [place] [address] Scheduled Procedures Name Priority Associated Diagnoses Date/Ti me COLONOSCOPY FLEXIBLE PROXIMA L DIAGNOSTIC Recall History of colon polyps Special screening for malignant neoplasms, colon Health Maintenance Due Date Last Done Comments DISCUSS TOBACCO CESSATION (REFER TO SMARTSET #2972) 1950 Hepatitis B (2 of 3 - [...] D LEVEL ONCE IN A LIFETIME-USE SMARTSET# 90081 Completed 08/02/2011, 04/24/2009, 06/25/2008, Additional history exists Mammogram Discontinued 12/18/2014, 11/05, 12/22/2006, Additional history exists Pneumococcal Vaccine: 65+ Years Completed 08/10/2017, 06/14/2016 Alpha-1 Antitrypsin Completed 03/15/2022 LUNG CANCER SCREENING - USE SMARTSET 24561 Completed 11/21/2022, 10/29/2022, 06/23/2022, Additional history exists [...] patient or by statute hierarchy) Care Teams Classroom Assistant Relationship Specialty Start Date End Date Hayes Maurer DO [address] [place] [address] PCP - General Family Medicine 04/04/19 documented as of this encounter
--- OUTSIDE RECORDS SUMMARY | 2023-02-27 12:56 | External Medical Summary | Summary of Care ---
Author Name Unknown Organization [facility] Address [address] [place] [address] Phone [phone] Care Team Providers Care Project Product Manager Name Role Phone Hayes Maurer DO Primary Care Provider Reason for Referral * Evaluate & Treat - Unlimited Visits (Within 10 days (routine)) - Authorized Specialty Diagnoses / Procedures Referred By Contact Referred To Contact GI NUTRITION/IM / Gastroenterology Diagnoses Generalized weakness Severe protein-calorie malnutrition (HCC) Hyaes Maurer DO [address] [place] [address] Referral ID Status Reason Start Date Expiration Date Visits Requested Visits Authorized [id number] Authorized Specialty Services Required [phone] Question Answer Referral Priority Within 10 days (routine) Where should this appointment be scheduled? [facility] For what condition is the patient being seen? Malnutrition * Evaluate & Treat - Unlimited Visits (Within 3 days (urgent)) - Authorized Specialty Diagnoses / Procedures Referred By Contac t Referred To Contact Personnel Director Diagnoses Malignancy (HCC) Generalized weakness Hayes Maurer DO [address] [place] [address] Referral ID Status Reason Start Date Expiration Date Visits Requested Visits Authorized [id number] Authorized Specialty Services Required [phone] Question Answer Referral Priority Within 3 days (urgent) Where should this appointment be scheduled? [facility] Role Liaison Officer Liaison Officer Referral Reason Frail Elderly, Complex Oncology, High Risk for Readmission Comments Is patient being transitioned from [facility] to Complex Case Management? No Reason for Visit * Reason Comments Hospital Follow-Up Pt here for Hospital f/u. Pt was admitted to [facility] on 10/24/2022 and D/c on 11/02/2022 for dx carcinoma, weakness and c diff.Pt continues to have nerve sensitivity and crusty scalp since having shingles. Continues to have bilateral feet swelling and numbness to feet. Loose stools on/off. Pt continues Lomotil as needed. Encounter Details Date Type Department Care Team (Latest Contact Info) Description 12/27/2022 2:20 PM EDT Office Visit [facility] [address] [place] [address] Hayes Maurer DO [address] [place] [address] Malignancy (HCC)*; Generalized weakness; Severe protein-calorie malnutrition (HCC); Hypothyroidism due to medication; COPD, group B, by GOLD 2017 classification ([facility]); Acquired hypothyroidism Allergies Active Allergy Reactions Criticality Noted Date Comments Morphine 03/26/1997 Shock, dyspnea Other reaction(s): shock, dspnea Neomycin 04/07/2013 documented as of this encounter (statuses as of 12/27/2022) Medications Medication Sig Dispensed Refills Start Date [...] the morning. 45 Tablet 3 3 Active Pantoprazole Sodium 40 MG Oral Tablet Delayed Release (Protonix)Indicati ons:Esophagitis Take 1 Tablet by mouth in the morning. 90 Tablet 3 3 Active Ipratropium-Albute rol 0.5-2.5 (3) MG/3ML Inhalation Solution (Duoneb)Indication s:COPD, group B, by GOLD 2017 classification ([facility]) Inhale 3 mL via nebulizer every 6 hours as needed for Cough, Shortness of Breath or Wheezing. 360 mL 3 3 Active Vancomycin HCl 125 MG Oral Capsule (Vancocin) Taper: 125mg by mouth four times daily x 2 weeks, 125mg by mouth twice daily x 1 week, 125mg by mouth daily x 1 week, 125mg by mouth every other day x 2 weeks. 84 Capsule 0 3 Active Furosemide 20 MG Oral Tablet (Lasix) [...] 5,000 Units Infuse intravenously continuous. 0 Active Ondansetron 4 MG Oral Film (Zuplenz) Take by mouth. 0 Active Docusate Sodium 100 MG Oral Capsule (Colace) [...] or other meds). 90 Tablet 3 3 Active Potassium Chloride ER 10 MEQ Oral Tablet Extended Release Take 1 Tablet by mouth in the morning. 0 3 Active Potassium Chloride ER 10 MEQ Oral Tablet Extended Release Take 1 Tablet by mouth in the morning. 30 Tablet 3 3 Active levoFLOXacin 750 MG Oral Tablet (Levaquin) Take 1 Tablet by mouth in the morning. 0 023 Discontinued documented as of this encounter (statuses as of 12/27/2022) Active Problems Problem Noted Date Diagnosed Date [...] as of this encounter (statuses as of 12/27/2022) Resolved Problems Problem Noted Date Diagnosed Date [...] as of this encounter (statuses as of 12/27/2022) Immunizations Name Administration Dates Next Due COVID-19 [...] Sign Reading Time Taken Comments Blood Pressure 100/58 12/27/2022 2:12 PM EDT Pulse 56 12/27/2022 2:12 PM EDT Temperature 36.3 C (97.3 F) 12/27/2022 2:12 PM ED T Respiratory Rate 16 12/27/2022 2:12 PM EDT Oxygen Saturation 98% 12/27/2022 2:12 PM EDT Inhaled Oxygen Concentration - - Weight 43.2 kg (95 lb 5 oz) 12/27/2022 2:12 PM E DT Height - - Body Mass Index 16.75 11/09/2022 10:04 AM EDT documented in this encounter Progress Notes * Hayes Maurer, DO - 12/27/2022 2:33 PM EDT Images from the original note were not included. Assessment and Plan Malignancy (HCC) Educated patient at length of the importance of good follow up, answering phone, and coming in for visits, mainly her hematology visit which she has not set up yet, no showed, and canceled. website project manager involved and will be helping to set patient up with routine visits and f/u with specialists - hopefully in such a way that we can build on her compliance. Remains confusing to understand all of the variables at play, but I believe that patient is overwhelmed and tends to shut down when feeling this way. - POPULATION HEALTH REFERRAL OP Generalized weakness - POPULATION HEALTH REFERRAL OP - GI NUTRITION REFERRAL OP - CBC WITH WBC DIFFERENTIAL; Future - COMPREHENSIVE METABOLIC PANEL; Future Severe protein-calorie malnutrition (HCC) Ongoing difficulty with eating and multiple confounding variables including recent c diff and now functional diarrhea which she is having trouble managing b/c she is reluctant to take her imodium - GI NUTRITION REFERRAL OP - CBC WITH WBC DIFFERENTIAL; Future - COMPREHENSIVE METABOLIC PANEL; Future Hypothyroidism due to medication - TSH WITH FREE T4 IF INDICATED; Future History of Present Illness Kaci Funk is a 72 year old female that presents for Hospital Follow-Up (Pt here for Hospital f/u. Pt was admitted to [facility] on 10/24/2022 and D/c on 11/02/2022 for dx carcinoma, weakness and c diff./Pt continues to have nerve sensitivity and crusty scalp since having shingles. Continues to have bilateral feet swelling and numbness to feet. Loose stools on/off. Pt continues Lomotil as needed./) Physical Exam Vitals: 12/27/22 1412 Temp: 36.3 C (97.3 F) Pulse: 56 Resp: 16 SpO2: 98% BP: 100/58 Wrap-Up Follow-up: Return in about 3 months (around 03/29/2023). | Check-out note: Please work with patient and case management To schedule her in with hematology 3 month 40 min f/u with [facility] Then 6 month f/u with [facility] 9 month f/u with Time: Total time today was 48 minutes excluding any time spent in the performance of separately billed services. documented in this encounter Plan of Treatment Upcoming Encounters Date Type Department Care Team (Late st Contact Info) Description 02/08/2023 1:15 PM EST Imaging [facility] 2nd Floor Cardiology, [address] [place] [address] 03/07/2023 1:30 PM EST Office Visit [facility], [facility] [address] [facility] [place] [address] [facility] [address] [place] [address] 03/09/2023 4:40 PM EST Office Visit Family Practice [facility] [address] [address] [facility] [place] [address] Hayes Maurer, [address] [place] [address] Pending Results Name Type Priority Associated Diagnoses Date /Time CBC WITH WBC DIFFERENTIAL Lab Routine Generalized weakness Severe protein-calorie malnutrition (HCC) 12/27/2022 3:37 PM EDT COMPREHENSIVE METABOLIC PANEL Lab Routine Generalized weakness Severe protein-calorie malnutrition (HCC) 12/27/2022 3:37 PM EDT TSH WITH FREE T4 IF INDICATED Lab Routine Hypothyroidism due to medication 12/27/2022 3:37 PM EDT Scheduled Orders Name Type Priority Associated Diagnoses Orde r Schedule CBC WITH WBC DIFFERENTIAL Lab Routine Generalized weakness Severe protein-calorie malnutrition (HCC) Expected: 12/27/2022 (Approximate), Expires: 12/28/2023 COMPREHENSIVE METABOLIC PANEL Lab Routine Generalized weakness Severe protein-calorie malnutrition (HCC) Expected: 12/27/2022 (Approximate), Expires: 12/27/2023 TSH WITH FREE T4 IF INDICATED Lab Routine Hypothyroidism due to medication Expected: 12/27/2022 (Approximate), Expires: 12/27/2023 Scheduled Procedures Name Priority Associated Diagnoses Date/Ti me COLONOSCOPY FLEXIBLE PROXIMA L DIAGNOSTIC Recall History of colon polyps Special screening for malignant neoplasms, colon Scheduled Referrals Name Type Priority Associated Diagnoses Orde r Schedule POPULATION HEALTH REFERRAL OP Referral Within 3 days (urgent) Malignancy (HCC) Generalized weakness Ordered: 12/27/2022 GI NUTRITION REFERRAL OP Referral Within 10 days (routine) Generalized weakness Severe protein-calorie malnutrition (HCC) Ordered: 12/27/2022 Health Maintenance Due Date Last Done Comments DISCUSS TOBACCO CESSATION (REFER TO SMARTSET #6226) 1950 Hepatitis B (2 of 3 - [...] D LEVEL ONCE IN A LIFETIME-USE SMARTSET# [id number] Completed 08/02/2011, 04/24/2009, 06/25/2008, Additional history exists Mammogram Discontinued 12/18/2014, 11/05, 12/22/2006, Additional history exists Pneumococcal Vaccine: 65+ Years Completed 08/10/2017, 06/14/2016 Alpha-1 Antitrypsin Completed 03/15/2022 LUNG CANCER SCREENING - USE SMARTSET 12405 Completed 11/21/2022, 10/29/2022, 06/23/2022, Additional history exists GARDASIL-HPV IMMUNIZATION SERIES Aged Out No longer eligible based on patient's age to complete this topic MENINGOCOCCAL (MENACTRA/MENVEO) Aged Out No longer eligible based on patient's age to complete this topic documented as of this encounter Medical Devices Not on filedocumented as of this encounter Visit Diagnoses Diagnosis Malignancy (HCC)- Primary Other malignant neoplasm without specification of site Generalized weakness Other malaise and fatigue Severe protein-calorie malnutrition (HCC) Other severe protein-calorie malnutrition Hypothyroidism due to medication COPD, group B, by GOLD 2017 classification (HCC) Acquired hypothyroidism Unspecified hypothyroidism documented in this encounter Advance Directives Healthcare Agents on File Name Relationship Healthcare Agent Relationshi p Communication Michael Cifuentes Funk Spouse Health Care Repr esentative (appointed verbally by patient or by statute hierarchy) Care Teams Project Product Manager Relationship Specialty Start Date End Date Hayes Maurer DO [address] [place] [address] PCP - General Family Medicine 04/04/19 documented as of this encounter"
--- OUTSIDE RECORDS SUMMARY | 2023-02-27 12:56 | External Medical Summary | Summary of Care ---
Author Name Unknown Organization [facility] Address [address] [place] [address] Phone [phone] Care Team Providers Care Motion Picture Photographer Name Role Phone Hayes Maurer DO Primary Care Provider Reason for Visit * Reason Onset Date Comments Advice 12/01/2022 Pls call to sche dule staple removal Encounter Details Date Type Department Care Team Description 12/01/2022 Telephone Family Practice [facility] [address] [place] [address] Hayes Maurer DO [address] [place] [address] Advice (Pls call to schedule staple removal) Allergies Active Allergy Reactions Severity Noted Date Comments Morphine 03/26/1997 Shock, dyspnea Other reaction(s): shock, dspnea Neomycin 04/07/2013 documented as of this encounter (statuses as of 12/20/2022) Medications Medication Sig Dispensed Refills Start Date [...] COPD, group B, by GOLD 2017 classification ([facility]) Inhale 3 mL via nebulizer every 6 [...] as of this encounter (statuses as of 12/20/2022) Active Problems Problem Noted Date Medical home [...] as of this encounter (statuses as of 12/20/2022) Resolved Problems Problem Noted Date Resolved Date [...] as of this encounter (statuses as of 12/20/2022) Immunizations Name Administration Dates Next Due COVID-19 [...] Telephone Encounter - Danae Amaya LPN - 12/20/2022 4:19 PM EDT Contacted pt to see if she had anything she needed. Pt states she has appointment with Dr. Maurer on 12/27/2022 for ER f/u. Pt states she did have diarrhea today x 2 , took 1 tablet of Immodium today with improvement. Pt states it "depends on what I eat". Pt states she will take out dairy to see if that helps. Contacted [facility] for them to send ER notes to [phone]. Awaiting notes. * Telephone Encounter - Danae Amaya LPN - 12/15/2022 11:44 AM EDT Images from the original note were not included. Left message on pt's answering machine regarding below. Detailed message left for pt that she may return call to our office as we had seen she wanted a call back. See below as pt requesting return phone call from this 9:50 am: Kaci Funk contacted JADYN Villeda [facility] [employer] 9:50 AM Note Pt called back in to let the office know that she forgot to tell Kalani that she quit smoking a couple months ago, when she was in the hospital, and when she gets a chance to return her call. * Telephone Encounter - Danae Amaya LPN - 12/15/2022 11:42 AM EDT December 12, 2022 Me 10:53 AM Note Please see TE on 12/06/2022 for reference: Contacted Dr. Scott's office to see if pt was indeed seen for staple removal. [facility] pt was seen for appointment on 12/07/2022, next appt with them on 01/23/23. Advised to fax office notes with [facility] from 12/07/22 appt to our private nurse fax at [phone]. Awaiting notes. FYI:Received records from [facility]. According to records, pt had L hip surgery on 10/27/[address] [facility] at [facility]. Contacted Dr. Scott's office at [phone], spoke with his nurse for more information. Pt no showed for her post op appt with him on 11/18/2022 as it was scheduled by [facility]. Per Dr. Scott's nurse she will reach out to pt now as there are a couple appointments open for tomorrow with Dr. Scott and will contact pt now to have come in as pt needs to be seen. Pt's 's phone number given to their office as well. Dr. Scott's nurse to return call to Nurse private line number at our office at [phone] to let us know date and time of her appointment. Records placed in scanning. * Telephone Encounter - Kalani Espinoza LPN - 12/12/2022 12:31 PM EDT Per Christine Amaya LPN: Please see TE on 12/06/2022 for reference: Contacted Dr. Scott's office to see if pt was indeed seen for staple removal. [facility] pt was seen for appointment on 12/07/2022, next appt with them on 01/23/23. Advised to fax office notes with [facility] from 12/07/22 appt to our private nurse fax at [phone]. Awaiting notes. * Telephone Encounter - Kalani Espinoza LPN - 12/12/2022 6:46 AM EDT This was an escalated email date 12/09/22. A call was received regarding a patient complaint and/or request to escalate an unresolved telephone encounter: Patient's Name: Kaci Funk Reason for email (document either Patient complaint or unresolved telephone encounter): Unresolved t/e Provider's Name: Kaci Funk Patient's Caller's name (if it's someone else calling on behalf of the patient): Preferred call back number: [phone] Summary: Pt has been calling since 12/01 (f/u 12/02, 12/06 x2) in regard to an appt to schedule stapleremoval. No answer from clinical staff in that time. * Telephone Encounter - India Wilks RN - 12/07/2022 9:21 AM EDT Spoke with Dr. Maurer, records are in chart under scans from October. Patient was s/p TNF nailing forL hip fracture. Recommending call to O to reach out to patient for follow up. She has been closed from case management follow up as she did not answer or return calls/voicemail's left for her. Would re-open if patient would be agreeable to services. I called [facility] who report she had no showed her follow up last month, but has an appointment with their office for this afternoon. Call made to O to report concerns of multiple now shows to appointments and her health status. * Telephone Encounter - Hayes Maurer DO - 12/07/2022 9:03 AM EDT Very helpful thank you! * Telephone Encounter - Danae Amaya LPN - 12/06/2022 4:28 PM EDT FYI:Received records from [facility]. According to records, pt had L hip surgery on 10/27/[address] [facility] at [facility]. Contacted Dr. Scott's office at [phone], spoke with his nurse for more information. Pt no showed for her post op appt with him on 11/18/2022 as it was scheduled by [facility]. Per Dr. Scott's nurse she will reach out to pt now as there are a couple appointments open for tomorrow with Dr. Scott and will contact pt now to have come in as pt needs to be seen. Pt's 's phone number given to their office as well. Dr. Scott's nurse to return call to Nurse private line number at our office at [phone] to let us know date and time of her appointment. Records placed in scanning. * Telephone Encounter - Hayes Maurer DO - 12/06/2022 4:11 PM EDT Noted Await records We do not have topical lidocaine in the office Advise involving India Wilks * Telephone Encounter - Christine Parra LPN - 12/06/2022 3:42 PM EDT Please see ALL messages regarding this pt, still awaiting Records from [facility] on her hospital stay. * Telephone Encounter - JADYN Gaines - 12/06/2022 3:31 PM EDT Pt calling to check status of previous messages. She is needing to schedule a staple removal. Will CC clinic leadership in this regard. Additionally, when scheduling pt, pls let her know if PCPwould be amenable to giving her topical lidocaine prior to staple removal? She is extremely anxiousabout coming in. * Telephone Encounter - JADYN Arce - 12/06/2022 3:12 PM EDT Pt calling in regarding staple removal. Had been transferred to Gen Surg in error, as surgery sounds like it was with [facility]. Pt had no idea who or where her surgery was with and was exasperated at being asked. After questioning a bit further, it was figured out that [facility] was the location. Pt was advised that she likely would need to see [facility]/whoever had put in the alyssa to take them out, but that it also may be done at her PCP's office, that it is unclear due to not having any information about the surgery. Pt repeatedly asking for someone to worm picker the ball and figure this out for her because she has no idea. Pt was advised that Dr. Maurer's office is getting records from [facility] and is intending to call back; also when it was mentioned that she had possibly called earlier today, she said she did not and didn't speak with anyone. Please call pt to advise on what her next steps should be. If an appt is to be scheduled, she is asking for the latest appt in the day possible. * Telephone Encounter - Christine Parra LPN - 12/06/2022 2:33 PM EDT Called [facility] for records to be sent over regarding pt's surgery on leg to determine when alyssa areto be removed. * Telephone Encounter - Isamar Loera, JADYN - 12/06/2022 9:42 AM EDT Pt calling and requesting call regarding staple removal. * Telephone Encounter - JADYN Patiño - 12/02/2022 2:24 PM EDT Pt calling in regarding this. Would like to speak to a nurse regarding this and her recovery time. [phone] * Telephone Encounter - Karina Gamez, JADYN - 12/01/2022 4:16 PM EDT Pt called stating that she has surgery on a leg fracture at [facility]. Pt does not remember the date or surgeons name and would like a call back to discuss staple removal. Thank You! documented in this encounter Plan of Treatment Upcoming Encounters Date Type Specialty Care Team Description 12/27/2022 Office Visit Family Medicine Hayes Maurer DO [address] [place] [address] 02/08/2023 Imaging Radiology 03/07/2023 Office Visit Urology Sahil Funk MD [address] [place] [address] 03/09/2023 Office Visit Family Hayes Matias DO [address] [place] [address] Scheduled Procedures Name Priority Associated Diagnoses Date/Ti me COLONOSCOPY FLEXIBLE PROXIMA L DIAGNOSTIC Recall History of colon polyps Special screening for malignant neoplasms, colon Health Maintenance Due Date Last Done Comments DISCUSS TOBACCO CESSATION (REFER TO SMARTSET #2894) 1950 Hepatitis B (2 of 3 - 19+ 3-dose series) 04/23/1997 03/26/1997 Zoster Vaccines (1 of 2) 01/10/2000 DXA Scan 10/25/2018 10/25/2016 DTaP,Tdap,and Td Vaccines (2 - Td or Tdap) 04/02/2021 04/02/2011 *BISPHONATE OR OTHER ACCEPTABLE MEDICATION NEEDED FOR OSTEOPOROSIS (REFER TO SMARTSET #1146) 08/09/2022 COVID-19 Vaccine (4 - 24 season) 2022 03/04/2021, 07/22/2020, 07/01/2020 Influenza Vaccine (FLU shot) (#1) 2022 Depression Screening 03/15/2023 03/15/2022 O2 ASSESSMENT COMPLETED IN PAST YEAR FOR COPD 07/20/2023 07/19/2022 TSH 10/25/2023 10/24/2022, 08/0 05/2022, 03/15/2022, Additional history exists Lipid Panel 03/15/2027 03/15/2022, 12/3 , 10/01/2019, Additional history exists COLONOSCOPY-EVERY 5 YRS AGES 18-100 10/18/2027 10/17/2022, 12/26/2017, 12/26/2017, Additional history exists VITAMIN D LEVEL ONCE IN A LIFETIME-USE SMARTSET# [id number] Completed 08/02/2011, 04/24/2009, 06/25/2008, Additional history exists Mammogram Discontinued 12/18/2014, 11/05, 12/22/2006, Additional history exists Pneumococcal Vaccine: 65+ Years Completed 08/10/2017, 06/14/2016 Alpha-1 Antitrypsin Completed 03/15/2022 LUNG CANCER SCREENING - USE SMARTSET [id number] Completed 11/21/2022, 10/29/2022, 06/23/2022, Additional history exists [...] Healthcare Agent Relationshi p Communication Michael Vane Funk Spouse Health Care Repr esentative (appointed verbally by patient or by statute hierarchy) Care Teams Motion Picture Photographer Relationship Specialty Start Date End Date Hayes Maurer DO [address] [place] [address] PCP - General Family Medicine 04/04/19 documented as of this encounter
--- OUTSIDE RECORDS SUMMARY | 2023-02-27 12:56 | External Medical Summary | Summary of Care ---
Author Name Unknown Organization [facility] Address [address] [place] [address] Phone [phone] Care Team Providers Care School Bus Driver Name Role Phone Hayes Maurer DO Primary Care Provider Reason for Visit * Reason Onset Date Comments Medication Problem 12/15/2022 Encounter Details Date Type Department Care Team Description 12/15/2022 Telephone Family Practice [facility] [address] [place] [address] Hayes Maurer DO [address] [place] [address] Medication Problem Allergies Active Allergy Reactions Severity [...] COPD, group B, by GOLD 2017 classification ([facility]) Inhale 3 mL via nebulizer [...] Thank you for your assistance Kinza Zaragoza Lift Truck Mechanic II [facility] ([facility]) (Formerly Telepharmacy) 12/15/2022,5:53 PM documented in this encounter Plan of Treatment Upcoming Encounters Date Type Specialty Care Team Description 02/08/2023 Imaging Radiology 03/07/2023 Office Visit Urology Sahil Funk MD [address] [place] [address] 03/09/2023 Office Visit Family Medicine Hayes Maurer DO [address] [place] [address] Scheduled Procedures Name Priority Associated Diagnoses Date/Ti me COLONOSCOPY FLEXIBLE PROXIMA L DIAGNOSTIC Recall History of colon polyps Special screening for malignant neoplasms, colon Health Maintenance Due Date Last Done Comments DISCUSS TOBACCO CESSATION (REFER TO SMARTSET #3710) 1950 Hepatitis B (2 of 3 - [...] D LEVEL ONCE IN A LIFETIME-USE SMARTSET# [id number] Completed 08/02/2011, 04/24/2009, 06/25/2008, Additional history exists Mammogram Discontinued 12/18/2014, 11/05, 12/22/2006, Additional history exists Pneumococcal Vaccine: 65+ Years Completed 08/10/2017, 06/14/2016 Alpha-1 Antitrypsin Completed 03/15/2022 LUNG CANCER SCREENING - USE SMARTSET [id number] Completed 11/21/2022, 10/29/2022, 06/23/2022, Additional history exists [...] patient or by statute hierarchy) Care Teams School Bus Driver Relationship Specialty Start Date End Date Hayes Maurer DO [address] [place] [address] PCP - General Family Medicine 04/04/19 documented as of this encounter
--- OUTSIDE RECORDS SUMMARY | 2023-02-27 12:56 | External Medical Summary | Summary of Care ---
Author Name Unknown Organization [facility] Address [address] [place] [address] Phone [phone] Care Team Providers Care Breeding Technician Name Role Phone Hayes Maurer DO Primary Care Provider Reason for Visit * Reason Onset Date Comments Referral 10/12/2022 Encounter Created in Error 10/12/2022 Encounter Details Date Type Department Care Team Description 10/12/2022 New Patient Triage (PILE FABRIC KNITTER USE ONLY) Cardiology, [facility] [address] [place] [address] Monse Pittman, REFRIGERATED COMPANY DRIVER [address] [place] [address] Referral; Encounter Created in Error Allergies Active Allergy Reactions Severity Noted Date Comments Morphine 03/26/1997 Shock, dyspnea Other reaction(s): shock, dspnea Neomycin 04/07/2013 documented as of this encounter (statuses as of 12/21/2022) Medications Medication Sig Dispensed Refills Start Date [...] Sodium 40 MG Oral Tablet Delayed Release (Protonix)Indications: Esophagitis Take 1 Tablet by mouth in the morning. 90 Tablet 3 10/06/2022 Active Ipratropium-Albuterol 0.5-2.5 (3) MG/3ML Inhalation Solution (Duoneb)Indications:CO PD, group B, by GOLD 2017 classification ([facility]) Inhale 3 mL via nebulizer every 6 hours as needed for Cough, Shortness of Breath or Wheezing. 360 mL 3 10/06/2022 Active documented as of this encounter (statuses as of 12/21/2022) Active Problems Problem Noted Date Medical home [...] as of this encounter (statuses as of 12/21/2022) Resolved Problems Problem Noted Date Resolved Date [...] as of this encounter (statuses as of 12/21/2022) Immunizations Name Administration Dates Next Due COVID-19 [...] as of this encounter Progress Notes * Isabella Noonan LPN - 10/12/2022 1:45 PM EDT error documented in this encounter Plan of Treatment Upcoming Encounters Date Type Specialty Care Team Description 12/27/2022 Office Visit Family Medicine Hyaes Maurer DO [address] [place] [address] 02/08/2023 Imaging Radiology 03/07/2023 [facility] [address] [place] [address] 03/09/2023 Office Visit Family Medicine Hayes Maurer DO [address] [place] [address] Scheduled Procedures Name Priority Associated Diagnoses Date/Ti me COLONOSCOPY FLEXIBLE PROXIMA L DIAGNOSTIC Recall History of colon polyps Special screening for malignant neoplasms, colon Health Maintenance Due Date Last Done Comments DISCUSS TOBACCO CESSATION (REFER TO SMARTSET #3291) 1950 Hepatitis B (2 of 3 - [...] FOR COPD 07/20/2023 07/19/2022 TSH 10/25/2023 10/24/2022, 0805/2022, 03/15/2022, Additional history exists Lipid Panel 03/15/2027 03/15/2022, 02/05, 10/01/2019, Additional history exists COLONOSCOPY-EVERY 5 YRS AGES 18-100 10/18/2027 10/17/2022, 12/26/2017, 12/26/2017, Additional history exists VITAMIN D LEVEL ONCE IN A LIFETIME-USE SMARTSET# [id number] Completed 08/02/2011, 04/24/2009, 06/25/2008, Additional history exists Mammogram Discontinued 12/18/2014, 11/05, 12/22/2006, Additional history exists Pneumococcal Vaccine: 65+ Years Completed 08/10/2017, 06/14/2016 Alpha-1 Antitrypsin Completed 03/15/2022 LUNG CANCER SCREENING - USE SMARTSET 58715 Completed 11/21/2022, 10/29/2022, 06/23/2022, Additional history exists [...] patient or by statute hierarchy) Care Teams Breeding Technician Relationship Specialty Start Date End Date Hayes Maurer DO [address] [place] [address] PCP - General Family Medicine 04/04/19 documented as of this encounter
--- OUTSIDE RECORDS SUMMARY | 2023-02-27 12:56 | External Medical Summary | Summary of Care ---
Author Name Unknown Organization [facility] Address [address] [place] [address] Phone [phone] Care Team Providers Care Developer Trading Systems Name Role Phone Hayes Maurer DO Primary Care Provider Reason for Visit * Reason Onset Date Comments Medication Problem 12/15/2022 Encounter Details Date Type Department Care Team Description 12/15/2022 Telephone Family Practice [facility] [address] [place] [address] Hayes Maurer DO [address] [place] [address] Medication Problem Allergies Active Allergy Reactions Severity [...] B, by GOLD 2017 classification ([facility]) Inhale 3 mL via nebulizer every [...] mRNA, LNP-s, No Pre serve, 2-Dose Series ([employer]) 03/04/2021,07/22/2020,07/01/2020 Pneumococcal Conjugate Vacc, 13 Valent (Prevnar) [...] encounter Miscellaneous Notes * Telephone Encounter - CON Ashley - [...] Thank you for your assistance Kinza Zaragoza Manager Agricultural II [facility] ([facility]) (Formerly Telepharmacy) 12/15/2022,5:53 PM documented in this encounter Plan of Treatment Upcoming Encounters Date Type Specialty Care Team Description 02/08/2023 Imaging Radiology 03/07/2023 Office Visit Urology Sahil Funk MD [address] [place] [address] 03/09/2023 Office Visit Family Medicine Hayes Maurer DO [address] [place] [address] Scheduled Procedures Name Priority Associated Diagnoses Date/Ti me COLONOSCOPY FLEXIBLE PROXIMA L DIAGNOSTIC Recall History of colon polyps Special screening for malignant neoplasms, colon Health Maintenance Due Date Last Done Comments DISCUSS TOBACCO CESSATION (REFER TO SMARTSET #0374) 1950 Hepatitis B (2 of 3 - [...] D LEVEL ONCE IN A LIFETIME-USE SMARTSET# [id number] Completed 08/02/2011, 04/24/2009, 06/25/2008, Additional history exists Mammogram Discontinued 12/18/2014, 11/05, 12/22/2006, Additional history exists Pneumococcal Vaccine: 65+ Years Completed 08/10/2017, 06/14/2016 Alpha-1 Antitrypsin Completed 03/15/2022 LUNG CANCER SCREENING - USE SMARTSET 73184 Completed 11/21/2022, 10/29/2022, 06/23/2022, Additional history exists [...] Healthcare Agent Relationshi p Communication Michael Vane Good Spouse Health Care Repr esentative (appointed verbally by patient or by statute hierarchy) Care Teams Developer Trading Systems Relationship Specialty Start Date End Date Hayes Mauerr DO [address] [place] [address] PCP - General Family Medicine 04/04/19 documented as of this encounter
--- OUTSIDE RECORDS SUMMARY | 2023-02-27 12:56 | External Medical Summary | Summary of Care ---
Author Name Unknown Organization [facility] Address [address] [place] [address] Phone [phone] Care Team Providers Care Creative Arts Therapist Name Role Phone Hayes Maurer DO Primary Care Provider Reason for Visit * Reason Onset Date Comments case management 12/28/2022 Encounter Details Date Type Department Care Team (Late st Contact Info) Description 12/28/2022 Cut Off Worker Telephone Family [facility] [address] [facility] [place] [address] India Wilks, RN [address] [place] [address] case management Allergies Active Allergy [...] Capsule 0 10/14/19 23 Discontinued Potassium Chloride [facility] 20 MEQ Oral [...] mRNA, LNP-s, No Pre serve, 2-Dose Series (GOOD) 03/04/2021,07/22/2020,07/01/2020 Pneumococcal Conjugate Vacc, 13 Valent (Prevnar) [...] Telephone Encounter - India Wilks RN - 12/28/2022 10:50 AM EDT CM Progress note Patients , Don brought pill bottles into clinic to complete med rec. Med list updated. documented in this encounter Plan of Treatment Upcoming Encounters Date Type Department Care Team (Late st Contact Info) Description 02/08/2023 1:15 PM EST Imaging [facility] 2nd Floor Cardiology, [place] [address] [facility] [place] [address] 03/07/2023 1:30 PM EST Office Visit Urology, [facility] [address] [facility] [place] [address] Sahil Funk MD [address] [facility] [address] [place] [address] 03/09/2023 4:40 PM EST Office Visit Family Practice [facility] [place] [address] Hayes Maurer DO [address] [place] [address] 05/15/2023 3:00 PM EDT Office Visit Nutrition & Weight Management, [facility] [place] [address] Preethi Fletcher PA-C [address] [facility] [place] [address] Scheduled Procedures Name Priority Associated Diagnoses Date/Ti [...] D LEVEL ONCE IN A LIFETIME-USE SMARTSET# [id number] Completed 08/02/2011, 04/24/2009, 06/25/2008, Additional history exists [...] patient or by statute hierarchy) Care Teams Creative Arts Therapist Relationship Specialty Start Date End Date Hayes Maurer DO [address] [place] [address] PCP - General Family Medicine 04/04/19 documented as of this encounter
--- OUTSIDE RECORDS SUMMARY | 2023-02-27 12:56 | External Medical Summary | Summary of Care ---
Author Name Unknown Organization [facility] Address [address] [place] [address] Phone [phone] Care Team Providers Care Quality Associate Name Role Phone Hayes Maurer DO Primary Care Provider Reason for Visit * Reason Onset Date Comments Medication Problem 12/15/2022 Encounter Details Date Type Department Care Team Description 12/15/2022 Telephone Family Practice [facility] [address] [place] [address] Hayes Maurer DO [address] [place] [address] Medication Problem Allergies Active Allergy Reactions Severity [...] B, by GOLD 2017 classification ([facility]) Inhale 3 mL via nebulizer every [...] mRNA, LNP-s, No Pre serve, 2-Dose Series ([employer]) 03/04/2021,07/22/2020,07/01/2020 Hepatitis B Vaccine 03/26/1997 Pneumococcal Conjugate [...] Miscellaneous Notes * Telephone Encounter - JADYN Kenny - [...] Thank you for your assistance Kinza Zaragoza Adjustment Examiner II Centralized Clinical Pharmacy Services (CCPS) (Formerly Telepharmacy) 12/15/2022,5:53 PM documented in this encounter Plan of Treatment Upcoming Encounters Date Type Specialty Care Team Description 02/08/2023 Imaging Radiology 03/07/2023 Office Visit Urology Sahil Funk MD [address] [place] [address] 03/09/2023 Office Visit Family Medicine Hayes Maurer, [address] [place] [address] Scheduled Procedures Name Priority Associated Diagnoses Date/Ti me COLONOSCOPY FLEXIBLE PROXIMA L DIAGNOSTIC Recall History of colon polyps Special screening for malignant neoplasms, colon Health Maintenance Due Date Last Done Comments DISCUSS TOBACCO CESSATION (REFER TO SMARTSET #3251) 1950 Hepatitis B (2 of 3 - [...] D LEVEL ONCE IN A LIFETIME-USE SMARTSET# 54181 Completed 08/02/2011, 04/24/2009, 06/25/2008, Additional history exists Mammogram Discontinued 12/18/2014, 11/05, 12/22/2006, Additional history exists Pneumococcal Vaccine: 65+ Years Completed 08/10/2017, 06/14/2016 Alpha-1 Antitrypsin Completed 03/15/2022 LUNG CANCER SCREENING - USE SMARTSET 06648 Completed 11/21/2022, 10/29/2022, 06/23/2022, Additional history exists [...] Healthcare Agent Relationshi p Communication Michael Cifuentes [place] Spouse Health Care Repr esentative (appointed verbally by patient or by statute hierarchy) Care Teams Quality Associate Relationship Specialty Start Date End Date Hayes Maurer DO [address] [place] [address] PCP - General Family Medicine 04/04/19 documented as of this encounter
--- OUTSIDE RECORDS SUMMARY | 2023-02-27 12:56 | External Medical Summary ---
Author Name Unknown Address Unknown Organization [id number][place] [place] [address] [place] [address] Laboratory Report Ordering Provider Test Date Status ARLEEN NAIR 12/27/2022 15:37:26 Final Observation Date Value Abnormality Reference (Units ) Status TSH 12/27/2022 15:37:26 0.80 0.27-4.20 (uIU/mL) Final Performing Location [facility] [place] [address] [place] [address]
--- OUTSIDE RECORDS SUMMARY | 2023-02-27 12:56 | External Medical Summary ---
Author Name Unknown Address Unknown Organization [id number]:[facility] [place] [address] [place] [address] Laboratory Report Ordering Provider Test Date Status ARLEEN NAIR 12/27/2022 15:37:26 Final Observation Date Value Abnormality Reference (Units ) Status SYNC LEUKOCYTES IN BLOOD BY AUTOMATED COUNT 12/27/2022 15:37:26 6.62 4.00-10.80 (K/uL) Final Segs 12/27/2022 15:37:26 67.1 40.0-75.0 (%) Final Lymphs % 12/27/2022 15:37:26 22.2 18.0-42.0 (%) Final Monos 12/27/2022 15:37:26 8.9 1.0-11.0 (%) Final Eosinophils 12/27/2022 15:37:26 1.1 0.0-6.0 (%) Final Basos 12/27/2022 15:37:26 0.5 0.0-2.0 (%) Final Immature Granulocyte, Percent 12/27/2022 15:37:26 0.2 0.0-2.0 (%) Final Absolute Segs 12/27/2022 15:37:26 4.45 1.80-7.70 (K/uL) Final Lymphs, absolute 12/27/2022 15:37:26 1.47 1.00-4.80 (K/ul) Final Monos, Abs 12/27/2022 15:37:26 0.59 0.00-1.10 (K/uL) Final Eos, Abs 12/27/2022 15:37:26 0.07 0.00-0.70 (K/uL) Final Basos, Abs 12/27/2022 15:37:26 0.03 0.00-0.20 (K/uL) Final Immature Granulocytes, Number 12/27/2022 15:37:26 0.01 0.00-0.20 (K/uL) Final Performing Location [facility] [place] [address] [facility] [address]
--- OUTSIDE RECORDS SUMMARY | 2023-02-27 12:56 | External Medical Summary ---
Author Name Unknown Address Unknown Organization [id number]:[facility] [place] [facility] [address] [facility] [address] Laboratory Report Ordering Provider Test Date Status ARLEEN NAIR 12/27/2022 15:37:26 Final Observation Date Value Abnormality Reference (Units ) Status WBC, Total 12/27/2022 15:37:26 6.62 4.00-10.80 (K/uL) Final RBC 12/27/2022 15:37:26 4.04 3.85-5.15 (M/uL) Final Hemoglobin 12/27/2022 15:37:26 12.1 12.0-15.3 (g/dL) Final HCT 12/27/2022 15:37:26 41.2 36.0-45.2 (%) Final MCV 12/27/2022 15:37:26 102.0 81.5-97.5 (fL) Final MCH 12/27/2022 15:37:26 30.0 27.0-34.0 (pg) Final MCHC 12/27/2022 15:37:26 29.4 32.0-36.0 (g/dL) Final RDW 12/27/2022 15:37:26 13.2 11.5-15.5 (%) Final Platelets 12/27/2022 15:37:26 232 140-400 (K/uL) Final MPV 12/27/2022 15:37:26 10.0 6.6-11.1 (fL) Final Nucleated erythrocytes/100 leukocytes [Ratio] in Blood by Automated count 12/27/2022 15:37:26 0 <=0 (/100 WBCs) Final Performing Location [facility] [place] [facility] [address] [facility] [address] [facility] [address]
--- OUTSIDE RECORDS SUMMARY | 2023-02-27 12:56 | External Medical Summary | Summary of Care ---
Author Name Unknown Organization [facility] Address [address] [place] [address] Phone [phone] Care Team Providers Care Family Resource Specialist Name Role Phone Hayes Maurer DO Primary Care Provider Reason for Visit * Reason Comments Outpatient Testing Encounter Details Date Type Department Care Team (Late st Contact Info) Description 12/27/2022 3:50 PM EDT Laboratory Laboratory, [facility] [address] [place] [phone] [facility] [address] [place] [address] Generalized weakness; Severe protein-calorie malnutrition (HCC); Hypothyroidism due to medication Allergies Active Allergy Reactions Criticality Noted Date [...] COPD, group B, by GOLD 2017 classification ([facility]) Inhale 3 mL via nebulizer every [...] MCG/ACT Inhalation Aerosol Powder Breath Activated (umeclidinium-vilant saadai) Inhale 1 Puff by mouth. 0 Active [...] Tablet by mouth in the morning. 0 11/15/2022 Active Potassium Chloride ER 10 MEQ Oral [...] Info) Description 02/08/2023 1:15 PM EST Imaging [facility] 2nd Floor Cardiology, [place] [address] [place] [address] 03/07/2023 1:30 PM EST Office Visit Urology, [facility] [address] [place] [address] Sahil Funk MD [address] [address] [place] [address] 03/09/2023 4:40 PM EST Office Visit Family Practice [facility] [address] [place] [address] Hayes Maurer DO [address] [place] [address] Pending Results Name Type Priority Associated Diagnoses Date /Time CBC WITH WBC DIFFERENTIAL Lab Routine Generalized weakness Severe protein-calorie malnutrition (HCC) 12/27/2022 3:37 PM EDT COMPREHENSIVE METABOLIC PANEL Lab Routine Generalized weakness Severe protein-calorie malnutrition (HCC) 12/27/2022 3:37 PM EDT TSH WITH FREE T4 IF INDICATED Lab Routine Hypothyroidism due to medication 12/27/2022 3:37 PM EDT CBC Lab Routine Generalized weakness Severe protein-calorie malnutrition (HCC) 12/27/2022 3:37 PM EDT DIFFERENTIAL, AUTOMATED Lab Routine Generalized weakness Severe protein-calorie malnutrition (HCC) 12/27/2022 3:37 PM EDT Scheduled Procedures Name Priority Associated Diagnoses Date/Ti me COLONOSCOPY FLEXIBLE PROXIMA L DIAGNOSTIC Recall History of colon polyps Special screening for malignant neoplasms, colon Health Maintenance Due Date Last Done Comments DISCUSS TOBACCO CESSATION (REFER TO SMARTSET #3956) 1950 Hepatitis B (2 of 3 - [...] D LEVEL ONCE IN A LIFETIME-USE SMARTSET# [id number] Completed 08/02/2011, 04/24/2009, 06/25/2008, Additional history exists Mammogram Discontinued 12/18/2014, 11/05, 12/22/2006, Additional history exists Pneumococcal Vaccine: 65+ Years Completed 08/10/2017, 06/14/2016 Alpha-1 Antitrypsin Completed 03/15/2022 LUNG CANCER SCREENING - USE SMARTSET 93996 Completed 11/21/2022, 10/29/2022, 06/23/2022, Additional history exists GARDASIL-HPV IMMUNIZATION SERIES Aged Out No longer eligible based on patient's age to complete this topic MENINGOCOCCAL (MENACTRA/MENVEO) Aged Out No longer eligible based on patient's age to complete this topic documented as of this encounter Medical Devices Not on filedocumented as of this encounter Visit Diagnoses Diagnosis Generalized weakness Other malaise and fatigue Severe protein-calorie malnutrition (HCC) Other severe protein-calorie malnutrition Hypothyroidism due to medication documented in this encounter Advance Directives Healthcare Agents on File Name Relationship Healthcare Agent Relationshi p Communication Michael Cifuentes [place] Spouse Health Care Repr esentative (appointed verbally by patient or by statute hierarchy) Care Teams Family Resource Specialist Relationship Specialty Start Date End Date Hayes Maurer DO [address] [place] [address] PCP - General Family Medicine 04/04/19 documented as of this encounter
--- OUTSIDE RECORDS SUMMARY | 2023-02-27 12:56 | External Medical Summary ---
Author Name Unknown Address Unknown Organization K01:[place] [facility] [facility] [place] [address] [facility] [place] [address] Laboratory Report Ordering Provider Test Date Status ARLEEN NAIR 12/27/2022 15:37:26 Final Observation Date Value Abnormality Reference (Units ) Status BUN 12/27/2022 15:37:26 21 Above high normal 6-20 (mg/dL) Final Creatinine 12/27/2022 15:37:26 0.7 0.5-1.0 (mg/dL) Final Glomerular filtration rate/1.73 sq M.predicted [Volume Rate/Area] in Serum, Plasma or Blood by Creatinine-based formula (CKD-EPI) 12/27/2022 15:37:26 >90 >=60 (mL/min) Final eGFR is calculated based on the CKD-EPI 2020 equation SODIUM 12/27/2022 15:37:26 139 135-146 (m mol/L) Final Potassium 12/27/2022 15:37:26 4.1 3.5-5.1 (m mol/L) Final Cl 12/27/2022 15:37:26 99 98-107 (mm ol/L) Final CO2 12/27/2022 15:37:26 29 22-32 (mmo l/L) Final Anion gap 12/27/2022 15:37:26 11 7-15 (mmol /L) Final Glucose 12/27/2022 15:37:26 86 70-120 (mg /dL) Final Albumin 12/27/2022 15:37:26 4.1 3.8-5.0 (g /dL) Final AST (Aspartate aminotransferase) 12/27/2022 15:37:26 15 10-35 (U/L) Final Alk Phos 12/27/2022 15:37:26 115 35-130 (U/ L) Final Bilirubin, Total 12/27/2022 15:37:26 0.5 <=1 .2 (mg/dL) Final Calcium 12/27/2022 15:37:26 9.0 8.4-10.2 ( mg/dL) Final Protein 12/27/2022 15:37:26 6.8 6.0-8.3 (g /dL) Final ALT (Alanine aminotransferase) 12/27/2022 15:37:26 11 10-35 (U/L) Final Performing Location [facility] [place] [facility] [address] [facility] [address]
--- OUTSIDE RECORDS SUMMARY | 2023-02-27 12:56 | External Medical Summary | Summary of Care ---
Author Name Unknown Organization [facility] Address [address] [place] [address] Phone [phone] Care Team Providers Care Molder Vacuum Name Role Phone Hayes Maurer DO Primary Care Provider Reason for Visit * Reason Onset Date Comments Medication Problem 12/15/2022 Encounter Details Date Type Department Care Team Description 12/15/2022 Telephone Family Practice [facility] [address] [place] [address] Hayes Maurer DO [address] [place] [address] Medication Problem Allergies Active Allergy Reactions Severity [...] B, by GOLD 2017 classification ([facility]) Inhale 3 mL via nebulizer every [...] Miscellaneous Notes * Telephone Encounter - JADYN Mcfarland - 12/16/2022 2:30 PM EDT Patient has [...] needs her Potassium 10 paradise sent to [facility] as she can not swallow the capsules, [...] Thank you for your assistance Kinza Zaragoza Director Of Strategic Programs II Centralized Clinical Pharmacy Services (CCPS) (Formerly Telepharmacy) 12/15/2022,5:53 PM documented in this encounter Plan of Treatment Upcoming Encounters Date Type Specialty Care Team Description 02/08/2023 Imaging Radiology 03/07/2023 Office Visit Urology Sahil Funk MD [address] [place] [address] 03/09/2023 Office Visit Family Medicine Hayes Maurer DO [address] [place] [address] Scheduled Procedures Name Priority Associated Diagnoses Date/Ti me COLONOSCOPY FLEXIBLE PROXIMA L DIAGNOSTIC Recall History of colon polyps Special screening for malignant neoplasms, colon Health Maintenance Due Date Last Done Comments DISCUSS TOBACCO CESSATION (REFER TO SMARTSET #5863) 1950 Hepatitis B (2 of 3 - [...] D LEVEL ONCE IN A LIFETIME-USE SMARTSET# 21619 Completed 08/02/2011, 04/24/2009, 06/25/2008, Additional history exists Mammogram Discontinued 12/18/2014, 11/05, 12/22/2006, Additional history exists Pneumococcal Vaccine: 65+ Years Completed 08/10/2017, 06/14/2016 Alpha-1 Antitrypsin Completed 03/15/2022 LUNG CANCER SCREENING - USE SMARTSET 37507 Completed 11/21/2022, 10/29/2022, 06/23/2022, Additional history exists [...] patient or by statute hierarchy) Care Teams Molder Vacuum Relationship Specialty Start Date End Date Hayes Maurer DO [address] [place] [address] PCP - General Family Medicine 04/04/19 documented as of this encounter
--- OUTSIDE RECORDS SUMMARY | 2023-02-27 12:56 | External Medical Summary | Summary of Care ---
Author Name Unknown Organization [facility] Address [address] [place] [address] Phone [phone] Care Team Providers Care Hotel Room Attendant Name Role Phone Hayes Maurre DO Primary Care Provider Reason for Visit * Reason Comments case management Encounter Details Date Type Department Care Team (Late st Contact Info) Description 12/27/2022 Industrial Economics ProfessorPricing/Signage Team Member [facility] [address] [facility] [place] [address] India Wilks, RN [address] [place] [address] Advanced care planning/counseling discussion* Allergies Active Allergy Reactions Criticality Noted Date [...] COPD, group B, by GOLD 2017 classification ([facility]) Inhale 3 mL via nebulizer [...] Progress Notes * India Wilks RN - 12/27/2022 3:59 PM EDT Industrial Economics Professor Progress Note: Date: 12/27/22 Assigned Patient Tier: 2 Connected with patient and her , Kulwinder via Clinic visit. Verified patient name/. Assessment: Pt. noted the following: She is very tired, but ambulating with her walker. [place] . Does not have any other DME equipment at home. She is anxious and not sleeping, but declining medication treatment at this time. She states she did not initially go to Hem/onc appointment as she felt "what's the point". After discussion about getting more information and treatmentplan in place she would like to pursue this. Messages sent to hem/onc to get rescheduled. She voiced that she does not want treatment that would "make me lose my hair and feel even worse". Advised that she will need to discuss with hem/onc. Patient does show some depression symptoms, but declining any services or needs at this time. She does not have ACP in place, but would want , Don to be her healthcare rep. She was given the combined medical/living will form and booklet. She would choose CPR and mechanical ventilation and artificial nutrition if for a short duration. Did you receive an alert for an annual wellness visit? No Is this call for a hospital, care home or rehab facility discharge to home? No Medication Reconciliation: Medication Reconciliation completed: yes Review of Current goals: Discussed the following patient-centered CM goals with the patient during this discussion: -ADHERENCE: Treatment plan -Status: Not Started . -Appointments: Patient will adhere to scheduled appointments -Status: Not Started . -RESPIRATORY: Patient/caregiver will monitor for exacerbation of respiratory condition and treat accordingly -Status: On Track . COPD Patient: YES Breathing: Breathing at Baseline CHF Patient: NO CM Plan: Reviewed 3 Red Flags with patient. Advised to call CM with any of the following: Red Flag 1: Safety/falls, Red Flag 2: pain, or Red Flag 3: dyspnea Remote Patient Monitoring: At this time, RPM not offered/considered for patient due to patient does not want at this time. Plan for Future Contacts: Plan to follow up within 2 weeks to check progress on the following goals/needs hem onc appointment, pain, weakness. Patient declines home visits or services of any type at this time. Planned contacts from the following parties will occur this week: PCP office visit as additional contacts per workflow. Advancement/Closure Plan: Keep patient at current Tier with reassessment per workflow. Patient provided CM contact information and encouraged to call with any changes in condition. SNP Member? No PCP Notified of enrollment in CM/HM program: Yes Is Provider in agreement with POC? Yes India Wilks RN Outpatient Case Management documented in this encounter Miscellaneous Notes * ACP (Advance Care Planning) - India Wilks RN - 12/28/2022 10:19 AM EDT Patient-centered Communication 12/28/2022 Patient was given ACP booklet and combined medical POA/living will form. She states she would want her , Don to be her decision maker, and she chooses all life sustaining interventions, for a short period stating " I would not want to be on it forever". She states she has to think about things before completing form. Aware to bring a copy back into clinic to be scanned into chart. India J Wilks, RN documented in this encounter Plan of Treatment Upcoming Encounters Date Type Department Care Team (Late st Contact Info) Description 02/08/2023 1:15 PM EST Imaging [facility] 2nd Floor Cardiology, [place] [address] [facility] [place] [address] 03/07/2023 1:30 PM EST Office Visit Urology, [facility] [address] [facility] [place] [address] Sahil Funk MD [address] [place] [address] 03/09/2023 4:40 PM EST Office Visit Family Practice [facility] [address] [facility] [place] [address] Hayes Maurer DO [address] [place] [address] 05/15/2023 3:00 PM EDT Office Visit Nutrition & Weight Management, [facility] [address] [facility] [place] [address] Preethi Fletcher PA-C [address] [facility] [place] [address] Scheduled Procedures Name Priority Associated Diagnoses Date/Ti [...] D LEVEL ONCE IN A LIFETIME-USE SMARTSET# 19564 Completed 08/02/2011, 04/24/2009, 06/25/2008, Additional history exists [...] as of this encounter Visit Diagnoses Diagnosis Advanced care planning/counseling discussion- Primary Other specified counseling documented in this encounter Advance Directives Healthcare Agents on File Name Relationship Healthcare Agent Relationshi p Communication Michael Funk Spouse Health Care Repr esentative (appointed verbally by patient or by statute hierarchy) Care Teams Hotel Room Attendant Relationship Specialty Start Date End Date Hayes Maurer DO [address] [place] [address] PCP - General Family Medicine 04/04/19 documented as of this encounter
--- OUTSIDE RECORDS SUMMARY | 2023-02-27 12:56 | External Medical Summary | Summary of Care ---
Author Name Unknown Organization [facility] Address [address] [place] [address] Phone [phone] Care Team Providers Care Patient Assistant Name Role Phone Hayes Maurer DO Primary Care Provider Reason for Visit * Reason Onset Date Comments Medication Problem 12/15/2022 Encounter Details Date Type Department Care Team Description 12/15/2022 Telephone Family Practice [facility] [address] [place] [address] Hayes Maurer DO [address] [place] [address] Medication Problem Allergies Active Allergy Reactions Severity [...] B, by GOLD 2017 classification ([facility]) Inhale 3 mL via nebulizer every 6 [...] mRNA, LNP-s, No Pre serve, 2-Dose Series ([employer]) 03/04/2021,07/22/2020,07/01/2020 Pneumococcal Conjugate Vacc, 13 Valent (Prevnar) [...] Thank you for your assistance Kinza Zaragoza Professor Of Latin American Studies II Centralized Clinical Pharmacy Services (CCPS) (Formerly Telepharmacy) 12/15/2022,5:53 PM documented in this encounter Plan of Treatment Upcoming Encounters Date Type Specialty Care Team Description 02/08/2023 Imaging Radiology 03/07/2023 Office Visit Urology Sahil Funk MD [address] [place] [address] 03/09/2023 Office Visit Family Medicine Hayes Maurer DO [address] [place] [address] Scheduled Procedures Name Priority Associated Diagnoses Date/Ti me COLONOSCOPY FLEXIBLE PROXIMA L DIAGNOSTIC Recall History of colon polyps Special screening for malignant neoplasms, colon Health Maintenance Due Date Last Done Comments DISCUSS TOBACCO CESSATION (REFER TO SMARTSET #2260) 1950 Hepatitis B (2 of 3 - [...] D LEVEL ONCE IN A LIFETIME-USE SMARTSET# 50407 Completed 08/02/2011, 04/24/2009, 06/25/2008, Additional history exists Mammogram Discontinued 12/18/2014, 11/05, 12/22/2006, Additional history exists Pneumococcal Vaccine: 65+ Years Completed 08/10/2017, 06/14/2016 Alpha-1 Antitrypsin Completed 03/15/2022 LUNG CANCER SCREENING - USE SMARTSET 20279 Completed 11/21/2022, 10/29/2022, 06/23/2022, Additional history exists [...] patient or by statute hierarchy) Care Teams Patient Assistant Relationship Specialty Start Date End Date Hayes Maurer DO [address] [place] [address] PCP - General Family Medicine 04/04/19 documented as of this encounter
--- OUTSIDE RECORDS SUMMARY | 2023-02-27 12:56 | External Medical Summary | Summary of Care ---
Author Name Unknown Organization [facility] Address [address] [place] [address] Phone [phone] Care Team Providers Care Wallpaper Inspector And Shipper Name Role Phone Hayes Maurer DO Primary Care Provider Reason for Visit * Reason Onset Date Comments Appointment 12/17/2022 Encounter Details Date Type Department Care Team Description 12/17/2022 Telephone Family Practice [facility] [address] [place] [address] Hayes Maurer DO [address] [place] [address] Appointment Allergies Active Allergy Reactions Severity Noted Date Comments Morphine 03/26/1997 Shock, dyspnea Other reaction(s): shock, dspnea Neomycin 04/07/2013 documented as of this encounter (statuses as of 12/19/2022) Medications Medication Sig Dispensed Refills Start Date [...] COPD, group B, by GOLD 2017 classification ([facility]) Inhale 3 mL via nebulizer [...] as of this encounter (statuses as of 12/19/2022) Active Problems Problem Noted Date Medical home [...] as of this encounter (statuses as of 12/19/2022) Resolved Problems Problem Noted Date Resolved Date [...] as of this encounter (statuses as of 12/19/2022) Immunizations Name Administration Dates Next Due COVID-19 [...] * Telephone Encounter - Ambar Maurer - 12/19/2022 8:44 AM EDT Appt scheduled with * Telephone Encounter - JADYN Roth - 12/17/2022 4:23 PM EDT No Appointments Available Patient declined appointments?: No What Visit Type is needed? ED Follow-up If Acute Visit Type is needed, were surrounding clinics offered to patient (Yes/No)? N/A Was patient offered appointments with other available providers (Yes/No)? N/A See Call Details? (Yes or No): No Pt called to follow up on appt offer pt states. Pt would like an er follow up with Dr. Maurer. documented in this encounter Plan of Treatment Upcoming Encounters Date Type Specialty Care Team Description 12/27/2022 Office Visit Family Medicine Hayes Maurer, DO [address] [place] [address] 02/08/2023 Imaging Radiology 03/07/2023 Office Visit Urology Sahil Funk MD [address] [place] [address] 03/09/2023 Office Visit Family Medicine Hayes Maurer DO [address] [place] [address] Scheduled Procedures Name Priority Associated Diagnoses Date/Ti [...] D LEVEL ONCE IN A LIFETIME-USE SMARTSET# 90965 Completed 08/02/2011, 04/24/2009, 06/25/2008, Additional history exists Mammogram Discontinued 12/18/2014, 11/05, 12/22/2006, Additional history exists Pneumococcal Vaccine: 65+ Years Completed 08/10/2017, 06/14/2016 Alpha-1 Antitrypsin Completed 03/15/2022 LUNG CANCER SCREENING - USE SMARTSET 16891 Completed 11/21/2022, 10/29/2022, 06/23/2022, Additional history exists [...] patient or by statute hierarchy) Care Teams Wallpaper Inspector And Shipper Relationship Specialty Start Date End Date Hayes Maurer DO [address] [place] [address] PCP - General Family Medicine 04/04/19 documented as of this encounter
--- OUTSIDE RECORDS SUMMARY | 2023-02-27 12:56 | External Medical Summary | Summary of Care ---
Author Name Unknown Organization [facility] Address [address] [place] [address] Phone [phone] Care Team Providers Care Publication Manager Name Role Phone Hayes Maurer DO Primary Care Provider Reason for Visit * Reason Onset Date Comments Follow Up 12/12/2022 Advice 12/12/2022 Med Request 12/12/2022 Encounter Details Date Type Department Care Team Description 12/12/2022 Telephone Family Practice [facility] [address] [place] [id number] Danae Amaya LPN Follow Up; Advice; Med Request Allergies Active Allergy Reactions Severity Noted Date [...] mouth in the morning. 0 11/15/2022 Active documented as of this encounter (statuses [...] mRNA, LNP-s, No Pre serve, 2-Dose Series (Musations) 03/04/2021,07/22/2020,07/01/2020 Pneumococcal Conjugate Vacc, 13 Valent (Prevnar) [...] encounter Miscellaneous Notes * Telephone Encounter - Zeeshan Johnson MD - 12/16/2022 4:53 PM EDT See other encounter. Rx sent. * Telephone Encounter - Christine Parra LPN - 12/16/2022 12:07 PM EDT Pt called in and is needing her Potassium 10 paradise to be changed to tablets rather then capsules, what was sent over at end of October was for capsule and she can not swallow them. [facility] capsule on the order. Pt very upset that this was not addressed yesterday when she spoke with nurse. * Telephone Encounter - JADYN Villeda - 12/15/2022 9:48 AM EDT Pt called back in to let the office know that she forgot to tell Kalani that she quit smoking a couple months ago, when she was in the hospital, and when she gets a chance to return her call. * Telephone Encounter - Kalani Espinoza LPN - 12/15/2022 9:23 AM EDT S/w pt, says that she actually does have a refill of the Valacyclovir and had that refilled. I did explain that what she is experiencing is nerve pain from the shingles, and at this point the anti-viral won't do much. She still wants to take it, because "Don is going to pick it up from the pharmacytoday". Shingles rash is practically dried up according to her . More scabbed/dry now on thescalp, and no lesions anymore on the neck. Pt was informed that if she continues to have pain from the shingles and even after I told her the anti-viral med may not do what to wants it to do, she is to just treat the pain from the nerves at this point. Ok to set up appt if she feels it necessary. Pt states understanding. Requested that when pt calls in, and leaves a message, to give us time to get back to her before calling again. We try to get to her calls ksenia. I asked that if she has several questions, lets try totake care of them in one phone call instead of several different ones. Pt will start PT soon at [facility] for her hip. Again,pt says she wishes she could get back to moving around better, and again I told her that with her age, and recent problem with malnutrition, she needs to understand that it will take her body longer to heal than an average person or someone 20 yrs younger than her. Pt states understanding. * Telephone Encounter - Hayes Maurer DO - 12/14/2022 1:06 PM EDT There is no indication for treatment with anti-virals for longer than 30 days At this point the infection is done with - is she still having pain? Can we set her up with acute appointment with [facility]? * Telephone Encounter - JADYN Gastelum - 12/14/2022 12:53 PM EDT Pt called in again with more questions, states she has not gotten a response. Pt was diagnosed withshingles a month ago in the hospital, pt is almost out of medication , 1 tablet left. and is requesting a refill from pcp. [facility] Pt call back is [phone] valcyclovir * Telephone Encounter - JADYN Chaudhary - 12/12/2022 3:11 PM EDT Patient called back with more questions for nurse is requesting a call back if possible at [phone] Thank You! * Telephone Encounter - Kalani Espinoza LPN - 12/12/2022 2:58 PM EDT Called pt as a follow up. [facility] has ref her to PT for her hip. But she is half way healed, and alyssa came out very well. No complications. Has a f/u ortho appt and also has a future appt with Dr. Maurer. Pt is aware that she can call us anytime for concerns related to this office and if it is a hip related concern, call [facility]. Pt states understanding. Pt was frustrated at the healing process taking so long. I reminded pt that she has had some recentmalnutrition issues lately, then she is also an older adult now, so she will need longer healing time than someone half her age.. Pt states understanding. FYI to Dr. Maurer. * Telephone Encounter - Danae Amaya LPN - 12/12/2022 10:47 AM EDT Please see TE on 12/06/2022 for reference: Contacted Dr. Scott's office to see if pt was indeed seen for staple removal. [facility] states pt was seen for appointment on 12/07/2022, next appt with them on 01/23/23. Advised to fax office notes with [facility] from 12/07/22 appt to our private nurse fax at [phone]. Awaiting notes. FYI:Received records from [facility]. According to records, pt had L hip surgery on 10/27/[address] [facility] at [facility]. Contacted Dr. Scott's office at [phone], spoke with his nurse for more information. [...] private line number at our office at [phone] to let us know date and time of her appointment. Records placed in scanning. documented in this encounter Plan of Treatment Upcoming Encounters Date Type Specialty Care Team Description 02/08/2023 Imaging Radiology 03/07/2023 Office Visit Urology Sahil Funk MD [address] [place] [address] 03/09/2023 Office Visit Family Medicine Hayes Maurer DO [address] [place] [address] Scheduled Procedures Name Priority Associated Diagnoses Date/Ti me COLONOSCOPY FLEXIBLE PROXIMA L DIAGNOSTIC Recall History of colon polyps Special screening for malignant neoplasms, colon Health Maintenance Due Date Last Done Comments DISCUSS TOBACCO CESSATION (REFER TO SMARTSET #9177) 1950 Hepatitis B (2 of 3 - [...] D LEVEL ONCE IN A LIFETIME-USE SMARTSET# [id number] Completed 08/02/2011, 04/24/2009, 06/25/2008, Additional history exists Mammogram Discontinued 12/18/2014, 11/05, 12/22/2006, Additional history exists Pneumococcal Vaccine: 65+ Years Completed 08/10/2017, 06/14/2016 Alpha-1 Antitrypsin Completed 03/15/2022 LUNG CANCER SCREENING - USE SMARTSET 21355 Completed 11/21/2022, 10/29/2022, 06/23/2022, Additional history exists [...] Name Relationship Healthcare Agent Relationshi p Communication Mcihael Funk Spouse Health Care Repr esentative (appointed verbally by patient or by statute hierarchy) Care Teams Publication Manager Relationship Specialty Start Date End Date Hayes Maurer, [address] [place] [address] PCP - General Family Medicine 04/04/19 documented as of this encounter
--- OUTSIDE RECORDS SUMMARY | 2023-02-27 12:57 | External Medical Summary | Summary of Care ---
Author Name Unknown Organization [facility] Address [address] [place] [address] Phone [phone] Care Team Providers Care Cascara Bark Cutter Name Role Phone Hayes Maurer DO Primary Care Provider Reason for Visit * Reason Onset Date Comments Advice 12/01/2022 Pls call to sche dule staple removal Encounter Details Date Type Department Care Team Description 12/01/2022 Telephone Family Practice [facility] [address] [place] [address] Hayes Maurer DO [address] [place] [address] Advice (Pls call to schedule staple removal) Allergies Active Allergy Reactions Severity Noted Date Comments Morphine 03/26/1997 Shock, dyspnea Other reaction(s): shock, dspnea Neomycin 04/07/2013 documented as of this encounter (statuses as of 12/15/2022) Medications Medication Sig Dispensed Refills Start Date [...] COPD, group B, by GOLD 2017 classification ([facility]) Inhale 3 mL via nebulizer every 6 [...] as of this encounter (statuses as of 12/15/2022) Active Problems Problem Noted Date Medical home [...] as of this encounter (statuses as of 12/15/2022) Resolved Problems Problem Noted Date Resolved Date [...] as of this encounter (statuses as of 12/15/2022) Immunizations Name Administration Dates Next Due COVID-19 [...] 12/15/2022 11:42 AM EDT December 12, 2022 Dc 10:53 AM Note Please see TE on 12/06/2022 for reference: Contacted Dr. Scott's office to see if pt was indeed seen for staple removal. [facility] states pt was seen for appointment on 12/07/2022, next appt with them on 01/23/23. Advised to fax office notes with Josh Arce from 12/07/22 appt to our private nurse fax at [phone]. Awaiting notes. FYI:Received records from [facility]. According to records, pt had L hip surgery on 10/27/[address] [facility] at [facility]. Contacted Dr. Scott's office at [phone], spoke with his nurse for more information. [...] private line number at our office at [phone] to let us know date and time of her appointment. Records placed in scanning. * Telephone Encounter - Kalani Espinoza LPN - 12/12/2022 12:31 PM EDT Per Christine Amaya LPN: Please see TE on 12/06/2022 for reference: Contacted Dr. Scott's office to see if pt was indeed seen for staple removal. [facility] states pt was seen for appointment on 12/07/2022, next appt with them on 01/23/23. Advised to fax office notes with Josh Arce from 12/07/22 appt to our private nurse fax at [phone]. Awaiting notes. * Telephone Encounter - Kalani [...] of the patient): Preferred call back number: [phone] Summary: Pt has been calling since 12/01 [...] would be agreeable to services. I called [facility] who report she had no showed [...] 12/06/2022 4:28 PM EDT FYI:Received records from [facility]. According to records, pt had L hip surgery on 10/27/[address] [facility] at [facility]. Contacted Dr. Scott's office at [phone], spoke with his nurse for more information. [...] private line number at our office at [phone] to let us know date and time [...] regarding this pt, still awaiting Records from [facility] on her hospital stay. * Telephone Encounter [...] as surgery sounds like it was with [facility]. Pt had no idea who or where her surgery was with and was exasperated at being asked. After questioning a bit further, it was figured out that [facility] was the location. Pt was advised that she likely would need to see [facility]/whoever had put in the alyssa to take them out, but that it also may be done at her PCP's office, that it is unclear due to not having any information about the surgery. Pt repeatedly asking for someone to pick up worker the ball and figure this out for her because she has no idea. Pt was advised that Dr. Maurer's office is getting records from [facility] and is intending to call back; also [...] LPN - 12/06/2022 2:33 PM EDT Called [facility] for records to be sent over regarding pt's surgery on leg to determine when alyssa areto be removed. * Telephone Encounter - JADYN Conner - 12/06/2022 9:42 AM EDT Pt calling and requesting call regarding staple removal. * Telephone Encounter - JADYN Patiño - 12/02/2022 2:24 PM EDT Pt calling in regarding this. Would like to speak to a nurse regarding this and her recovery time. [phone] * Telephone Encounter - Karina JADYN Gamez - 12/01/2022 4:16 PM EDT Pt called stating that she has surgery on a leg fracture at [facility]. Pt does not remember the date [...] Maurer DO [address] [place] [address] Scheduled Procedures Name Priority Associated Diagnoses Date/Ti me COLONOSCOPY FLEXIBLE PROXIMA L DIAGNOSTIC Recall History of colon polyps Special screening for malignant neoplasms, colon Health Maintenance Due Date Last Done Comments DISCUSS TOBACCO CESSATION (REFER TO SMARTSET #3201) 1950 Hepatitis B (2 of 3 - [...] D LEVEL ONCE IN A LIFETIME-USE SMARTSET# [id number] Completed 08/02/2011, 04/24/2009, 06/25/2008, Additional history exists Mammogram Discontinued 12/18/2014, 11/05, 12/22/2006, Additional history exists Pneumococcal Vaccine: 65+ Years Completed 08/10/2017, 06/14/2016 Alpha-1 Antitrypsin Completed 03/15/2022 LUNG CANCER SCREENING - USE SMARTSET 68567 Completed 11/21/2022, 10/29/2022, 06/23/2022, Additional history exists [...] patient or by statute hierarchy) Care Teams Cascara Bark Cutter Relationship Specialty Start Date End Date Hayes Maurer DO [address] [place] [address] PCP - General Family Medicine 04/04/19 documented as of this encounter
--- OUTSIDE RECORDS SUMMARY | 2023-02-27 12:57 | External Medical Summary | Summary of Care ---
Author Name Unknown Organization [facility] Address [address] [place] [address] Phone [phone] Care Team Providers Care Forming Process Line Worker Name Role Phone Hayes Maurer DO Primary Care Provider Reason for Visit * Reason Onset Date Comments Advice 12/01/2022 Pls call to sche dule staple removal Encounter Details Date Type Department Care Team Description 12/01/2022 Telephone Family Practice [facility] [address] [place] [address] Hayes Maurer DO [address] [place] [address] Advice (Pls call to schedule staple removal) Allergies Active Allergy Reactions Severity Noted Date Comments Morphine 03/26/1997 Shock, dyspnea Other reaction(s): shock, dspnea Neomycin 04/07/2013 documented as of this encounter (statuses as of 12/12/2022) Medications Medication Sig Dispensed Refills Start Date [...] COPD, group B, by GOLD 2017 classification ([facility]) Inhale 3 mL via nebulizer every [...] as of this encounter (statuses as of 12/12/2022) Active Problems Problem Noted Date Medical home [...] as of this encounter (statuses as of 12/12/2022) Resolved Problems Problem Noted Date Resolved Date [...] as of this encounter (statuses as of 12/12/2022) Immunizations Name Administration Dates Next Due COVID-19 [...] Miscellaneous Notes * Telephone Encounter - Kalani Espinoza LPN [...] of the patient): Preferred call back number: [phone] Summary: Pt has been calling since 12/01 (f/u 12/02, 12/06 x2) in regard to an appt to schedule stapleremoval. No answer from clinical staff in that time. * Telephone Encounter - India Wilks RN - 12/07/2022 9:21 AM EDT Spoke with Dr. Maurer, records are in chart under scans from October. Patient was s/p TNF nailing forL hip fracture. Recommending call to [facility] to reach out to patient for follow up. She has been closed from case management follow up as she did not answer or return calls/voicemail's left for her. Would re-open if patient would be agreeable to services. I called [facility] who report she had no showed her follow up last month, but has an appointment with their office for this afternoon. Call made to [facility] to report concerns of multiple now shows to appointments and her health status. * Telephone Encounter - Hayes Maurer DO - 12/07/2022 9:03 AM EDT Very helpful thank you! * Telephone Encounter - Danae Amaya LPN - 12/06/2022 4:28 PM EDT FYI:Received records from [facility]. According to records, pt had L hip surgery on 10/27/[address] [facility] at [facility]. Contacted Dr. Scott's office at [phone], spoke with his nurse for more information. [...] private line number at our office at [phone] to let us know date and time of her appointment. Records placed in scanning. * Telephone Encounter - Hayes Maurer DO - 12/06/2022 4:11 PM EDT Noted Await records We do not have topical lidocaine in the office Advise involving India Wikls * Telephone Encounter - Christine Parra LPN - 12/06/2022 3:42 PM EDT Please see ALL messages regarding this pt, still awaiting Records from [facility] on her hospital stay. * Telephone [...] surgery sounds like it was with [facility]. Pt had no idea who or where her surgery was with and was exasperated at being asked. After questioning a bit further, it was figured out that [facility] was the location. Pt was advised that she likely would need to see [facility]/whoever had put in the alyssa to take them out, but that it also may be done at her PCP's office, that it is unclear due to not having any information about the surgery. Pt repeatedly asking for someone to draft roller picker the ball and figure this out for her because she has no idea. Pt was advised that Dr. Maurer's office is getting records from [facility] and is intending to call back; [...] - 12/06/2022 2:33 PM EDT Called [facility] for records to be sent over regarding pt's surgery on leg to determine when alyssa areto be removed. * Telephone Encounter - JADYN Conner - 12/06/2022 9:42 AM EDT Pt calling and requesting call regarding staple removal. * Telephone Encounter - JADYN Patioñ - 12/02/2022 2:24 PM EDT Pt calling in regarding this. Would like to speak to a nurse regarding this and her recovery time. [phone] * Telephone Encounter - JADYN Stearns - 12/01/2022 4:16 PM EDT Pt called stating that she has surgery on a leg fracture at [facility]. Pt does not remember the date or surgeons name and would like a call back to discuss staple removal. Thank You! documented in this encounter Plan of Treatment Upcoming Encounters Date Type Specialty Care Team Description 02/08/2023 Imaging Radiology 03/07/2023 Office Visit Urology Sahil Funk MD [address] [place] [address] 03/09/2023 Office Visit Family Medicine Hayes Maurer DO [address] [place] [address] Scheduled Procedures Name Priority Associated Diagnoses Date/Ti me COLONOSCOPY FLEXIBLE PROXIMA L DIAGNOSTIC Recall History of colon polyps Special screening for malignant neoplasms, colon Health Maintenance Due Date Last Done Comments DISCUSS TOBACCO CESSATION (REFER TO SMARTSET #1621) 1950 Hepatitis B (2 of 3 - [...] D LEVEL ONCE IN A LIFETIME-USE SMARTSET# 36717 Completed 08/02/2011, 04/24/2009, 06/25/2008, Additional history exists Mammogram Discontinued 12/18/2014, 11/05, 12/22/2006, Additional history exists Pneumococcal Vaccine: 65+ Years Completed 08/10/2017, 06/14/2016 Alpha-1 Antitrypsin Completed 03/15/2022 LUNG CANCER SCREENING - USE SMARTSET 55460 Completed 11/21/2022, 10/29/2022, 06/23/2022, Additional history exists [...] patient or by statute hierarchy) Care Teams Forming Process Line Worker Relationship Specialty Start Date End Date Hayes Maurer DO [address] [place] [address] PCP - General Family Medicine 04/04/19 documented as of this encounter
--- OUTSIDE RECORDS SUMMARY | 2023-02-27 12:57 | External Medical Summary | Summary of Care ---
Author Name Unknown Organization [facility] Address [address] [place] [address] Phone [phone] Care Team Providers Care Supervisor [place] Name Role Phone Hayes Maurer DO Primary Care Provider Encounter Details Date Type Department Care Team Description 12/08/2022 Orders Only [facility] [address] [place] [address] Hayes Maurer DO [address] [place] [address] Allergies Active Allergy Reactions Severity Noted Date [...] COPD, group B, by GOLD 2017 classification ([facility]) Inhale 3 mL via [...] mRNA, LNP-s, No Pre serve, 2-Dose Series ([employer]) 03/04/2021,07/22/2020,07/01/2020 Pneumococcal Conjugate Vacc, 13 Valent (Prevnar) [...] Comments DISCUSS TOBACCO CESSATION (REFER TO SMARTSET #2471) 1950 Hepatitis B (2 of 3 - [...] D LEVEL ONCE IN A LIFETIME-USE SMARTSET# [id number] Completed 08/02/2011, 04/24/2009, 06/25/2008, Additional history exists Mammogram Discontinued 12/18/2014, 11/05, 12/22/2006, Additional history exists Pneumococcal Vaccine: 65+ Years Completed 08/10/2017, 06/14/2016 Alpha-1 Antitrypsin Completed 03/15/2022 LUNG CANCER SCREENING - USE SMARTSET 86216 Completed 11/21/2022, 10/29/2022, 06/23/2022, Additional history exists GARDASIL-HPV IMMUNIZATION SERIES Aged Out No longer eligible based on patient's age to complete this topic MENINGOCOCCAL (MENACTRA/MENVEO) Aged Out No longer eligible based on patient's age to complete this topic documented as of this encounter Medical Devices Not on filedocumented as of this encounter Procedures Procedure Name Priority Date/Time Associated Diagnosis Comments PHOSPHORUS Routine 10/28/2022 TSH Routine 10/24/2022 documented in this encounter Results * PHOSPHORUS (10/28/2022) PHOSPHORUS-OUTS HERB LAB 3.9 2.5 - 4.9 MG/DL OUTSIDE LAB (SEE SCANNED REPORT) Blood Venous blood specimen / Unknown 10/28/2022 History Per Patient LAB BLOOD ORDERABLES OUTSIDE LAB (SEE SCANNED REPORT) * (ABNORMAL) TSH (10/24/2022) TSH - OUTSIDE LAB 32.058(A) 0.300 - 4.500 UIU/ML OUTSIDE LAB (SEE SCANNED REPORT) Blood Venous blood specimen / Unknown 10/24/2022 History Per Patient LAB BLOOD ORDERABLES OUTSIDE LAB (SEE SCANNED REPORT) documented in this encounter Advance Directives Healthcare Agents on File Name Relationship Healthcare Agent Relationshi p Communication Michael Cifuentes [place] Spouse Health Care Repr esentative (appointed verbally by patient or by statute hierarchy) Care Teams Supervisor [place] Relationship Specialty Start Date End Date Hayes Maurer DO [address] [place] [address] PCP - General Family Medicine 04/04/19 documented as of this encounter
--- OUTSIDE RECORDS SUMMARY | 2023-02-27 12:57 | External Medical Summary | Summary of Care ---
Author Name Unknown Organization [facility] Address [address] [place] [address] Phone [phone] Care Team Providers Care Parking Analyst Name Role Phone Hayes Maurer DO Primary Care Provider Reason for Visit * Reason Onset Date Comments Encounter Created in Error 11/19/2022 Encounter Details Date Type Department Care Team Description 11/19/2022 Telephone Family Practice [facility] [address] [place] [address] Hayes Maurer DO [address] [place] [address] Encounter Created in Error Allergies Active Allergy Reactions Severity Noted Date Comments Morphine 03/26/1997 Shock, dyspnea Other reaction(s): shock, dspnea Neomycin 04/07/2013 documented as of this encounter (statuses as of 11/21/2022) Medications Medication Sig Dispensed Refills Start Date End Date Status Oxybutynin Chloride ER 5 MG Oral Tablet Extended Release 24 Hour (Ditropan XL) Take 1 Tablet by mouth in the morning. 30 Tablet 6 09/07/2022 Active Metoprolol Succinate ER 25 MG Oral Tablet Extended Release 24 Hour (toPROL XL)Indications:SVT (supraventricular tachycardia) (HCC) Take 0.5 Tablets by mouth in the morning. 45 Tablet 3 10/06/2022 Active Pantoprazole Sodium 40 MG Oral Tablet Delayed Release (Protonix)Indication s:Esophagitis Take 1 Tablet by mouth in the morning. 90 Tablet 3 10/06/2022 Active Ipratropium-Albutero l 0.5-2.5 (3) MG/3ML Inhalation Solution (Duoneb)Indications: COPD, group B, by GOLD 2017 classification ([facility]) Inhale 3 mL via [...] as of this encounter (statuses as of 11/21/2022) Active Problems Problem Noted Date Medical home [...] as of this encounter (statuses as of 11/21/2022) Resolved Problems Problem Noted Date Resolved Date [...] as of this encounter (statuses as of 11/21/2022) Immunizations Name Administration Dates Next Due COVID-19 mRNA, LNP-s, No Pre serve, 2-Dose Series ([employer]) 03/04/2021,07/22/2020,07/01/2020 Pneumococcal Conjugate Vacc, 13 Valent (Prevnar) [...] Miscellaneous Notes * Telephone Encounter - JADYN Roth - 11/19/2022 1:33 PM EDT Current medication list reviewed. documented in this encounter Plan of Treatment Upcoming Encounters Date Type Specialty Care Team Description 11/25/2022 Office Visit Hematology Oncology Héctor Rodriguez MD [address] [place] [address] 12/13/2022 Office Visit Cardiology Emery Kwan DO [address] [place] [address] 01/17/2023 Hospital Encounter Endoscopy Michael Alejandro MD [address] [place] [address] 01/17/2023 Surgery Endoscopy Michael Alejandro MD [address] [place] [address] COLONOSCOPY FLEXIBLE PROXIMAL DIAGNOSTIC 02/08/2023 Imaging Radiology 03/07/2023 Office Visit Urology Sahil Funk MD [address] [facility] [address] [place] [address] 03/09/2023 Office Visit Family Medicine Hayes Maurer, [address] [place] [address] Scheduled Procedures Name Priority Associated Diagnoses Date/Ti me COLONOSCOPY FLEXIBLE PROXIMAL DIAGNOSTIC Recall History of colon polyps Special screening for malignant neoplasms, colon 01/17/2023 2:30 PM EST Health Maintenance Due Date Last Done Comments DISCUSS TOBACCO CESSATION (REFER TO SMARTSET #8777) 1950 Hepatitis B (2 of 3 - 19+ 3-dose series) 04/23/1997 03/26/1997 Zoster Vaccines (1 of 2) 01/10/2000 DXA Scan 10/25/2018 10/25/2016 DTaP,Tdap,and Td Vaccines (2 - Td or Tdap) 04/02/2021 04/02/2011 COVID-19 Vaccine (4 - Pfizer series) 04/29/2021 03/04/2021, 07/22/2020, 07/01/2020 *BISPHONATE OR OTHER ACCEPTABLE MEDICATION NEEDED FOR OSTEOPOROSIS (REFER TO SMARTSET #1146) 08/09/2022 Influenza Vaccine (FLU shot) (#1) 2022 Depression Screening 03/15/2023 03/15/2022 O2 ASSESSMENT COMPLETED IN PAST YEAR FOR COPD 07/20/2023 07/19/2022 TSH 10/07/2023 10/06/2022, 03/06, 03/04/2021, Additional history exists Lipid Panel 03/15/2027 03/15/2022, 02/05, 10/01/2019, Additional history exists COLONOSCOPY-EVERY 5 YRS AGES 18-100 10/18/2027 10/17/2022, 12/26/2017, 12/26/2017, Additional history exists VITAMIN D LEVEL ONCE IN A LIFETIME-USE SMARTSET# [id number] Completed 08/02/2011, 04/24/2009, 06/25/2008, Additional history exists Mammogram Discontinued 12/18/2014, 11/05, 12/22/2006, Additional history exists Pneumococcal Vaccine: 65+ Years Completed 08/10/2017, 06/14/2016 Alpha-1 Antitrypsin Completed 03/15/2022 LUNG CANCER SCREENING - USE SMARTSET [id number] Completed 11/21/2022, 10/29/2022, 06/23/2022, Additional history exists [...] Healthcare Agent Relationshi p Communication Michael Cifuentes [place] Spouse Health Care Repr esentative (appointed verbally by patient or by statute hierarchy) Care Teams Parking Analyst Relationship Specialty Start Date End Date Hayes Maurer DO [address] [place] [address] PCP - General Family Medicine 04/04/19 documented as of this encounter
--- OUTSIDE RECORDS SUMMARY | 2023-02-27 12:57 | External Medical Summary | Summary of Care ---
Author Name Unknown Organization [facility] Address [address] [place] [address] Phone [phone] Care Team Providers Care Loan Closer Name Role Phone Hayes Maurer DO Primary Care Provider Reason for Visit * Reason Onset Date Comments Appointment 11/25/2022 NO SHOW 11/25/22 Encounter Details Date Type Department Care Team Description 11/25/2022 Telephone Hematology/Oncology Ne Nar[place] 200 [facility] [place] [address] Héctor Rodriguez MD 200 [facility] [place] [address] Appointment (NO SHOW 11/25/22) Allergies Active Allergy Reactions Severity Noted Date Comments Morphine 03/26/1997 Shock, dyspnea Other reaction(s): shock, dspnea Neomycin 04/07/2013 documented as of this encounter (statuses as of 11/25/2022) Medications Medication Sig Dispensed Refills Start Date [...] COPD, group B, by GOLD 2017 classification ([facility]) Inhale 3 mL via nebulizer every 6 [...] Tablet before bedtime. 0 Active Potassium Chloride Abla ER 20 MEQ Oral Tablet Extended Release [...] as of this encounter (statuses as of 11/25/2022) Active Problems Problem Noted Date Medical home [...] as of this encounter (statuses as of 11/25/2022) Resolved Problems Problem Noted Date Resolved Date [...] as of this encounter (statuses as of 11/25/2022) Immunizations Name Administration Dates Next Due COVID-19 mRNA, LNP-s, No Pre serve, 2-Dose Series ([employer]) 03/04/2021,07/22/2020,07/01/2020 Hepatitis B Vaccine 03/26/1997 Pneumococcal Conjugate [...] Miscellaneous Notes * Telephone Encounter - JADYN Espino - 11/25/2022 2:53 PM EDT Called patient, no answer. Left message to call back to schedule. Will call patient again later today/tomorrow. * Telephone Encounter - Ariadna Maruer CMA - 11/25/2022 2:49 PM EDT Patient is a NO SHOW 11/25/22 Please contact patient to rescheduled missed appt for Review of scans documented in this encounter Plan of Treatment Upcoming Encounters Date Type Specialty Care Team Description 12/13/2022 Office Visit Cardiology Emery Kwan DO [address] [place] [address] 01/17/2023 Hospital Encounter Endoscopy Michael Alejandro MD [address] [place] [address] 01/17/2023 Surgery Endoscopy Michael Alejandro MD [address] [place] [address] COLONOSCOPY FLEXIBLE PROXIMAL DIAGNOSTIC 02/08/2023 Imaging Radiology 03/07/2023 Office Visit Urology Sahil Funk MD [address] [place] [address] [place] [address] 03/09/2023 Office Visit Family Medicine Hayes Maurer DO [address] [place] [address] Scheduled Procedures Name Priority Associated Diagnoses Date/Ti me COLONOSCOPY FLEXIBLE PROXIMAL DIAGNOSTIC Recall History of colon polyps Special screening for malignant neoplasms, colon 01/17/2023 2:30 PM EST Health Maintenance Due Date Last Done Comments DISCUSS TOBACCO CESSATION (REFER TO SMARTSET #6091) 1950 Hepatitis B (2 of 3 - [...] D LEVEL ONCE IN A LIFETIME-USE SMARTSET# [id number] Completed 08/02/2011, 04/24/2009, 06/25/2008, Additional history exists Mammogram Discontinued 12/18/2014, 11/05, 12/22/2006, Additional history exists Pneumococcal Vaccine: 65+ Years Completed 08/10/2017, 06/14/2016 Alpha-1 Antitrypsin Completed 03/15/2022 LUNG CANCER SCREENING - USE SMARTSET 46426 Completed 11/21/2022, 10/29/2022, 06/23/2022, Additional history exists [...] patient or by statute hierarchy) Care Teams Loan Closer Relationship Specialty Start Date End Date Hayes Maurer DO [address] [place] [address] PCP - General Family Medicine 04/04/19 documented as of this encounter
--- OUTSIDE RECORDS SUMMARY | 2023-02-27 12:57 | External Medical Summary | Summary of Care ---
Author Name Unknown Organization [facility] Address [address] [place] [address] Phone [phone] Care Team Providers Care Copyman Name Role Phone Hayes Maurer DO Primary Care Provider Reason for Visit * Reason Onset Date Comments Appointment 11/25/2022 NO SHOW 11/25/22 Encounter Details Date Type Department Care Team Description 11/25/2022 Telephone Hematology/Oncology Ne Narayan [place] 200 [facility] [place] [address] Héctor Rodriguez MD [address] [facility] [place] [address] Appointment (NO SHOW 11/25/22) Allergies Active Allergy [...] mRNA, LNP-s, No Pre serve, 2-Dose Series ([employer]) 03/04/2021,07/22/2020,07/01/2020 Hepatitis B Vaccine 03/26/1997 Pneumococcal Conjugate [...] later today/tomorrow. * Telephone Encounter - Ariadna Maurer CMA - 11/25/2022 2:49 PM EDT Patient is a NO SHOW 11/25/22 Please contact patient to rescheduled missed appt for Review of scans documented in this encounter Plan of Treatment Upcoming Encounters Date Type Specialty Care Team Description 12/13/2022 Office Visit Cardiology Emery Kwan DO [address] [place] [address] 01/17/2023 Hospital Encounter Endoscopy Michael Alejandro MD [address] [place] [address] 01/17/2023 Surgery Endoscopy Michael Alejandro MD [address] [place] [address] COLONOSCOPY FLEXIBLE PROXIMAL DIAGNOSTIC 02/08/2023 Imaging Radiology 03/07/2023 Office Visit Urology Sahil Funk MD [address] [place] [address] [place] [address] 03/09/2023 Office Visit Family Medicine Hayes Maurer DO [address] [place] [address] Scheduled Procedures Name Priority Associated Diagnoses Date/Ti me COLONOSCOPY FLEXIBLE PROXIMAL DIAGNOSTIC Recall History of colon polyps Special screening for malignant neoplasms, colon 01/17/2023 2:30 PM EST Health Maintenance Due Date Last Done Comments DISCUSS TOBACCO CESSATION (REFER TO SMARTSET #0161) 1950 Hepatitis B (2 of 3 - [...] D LEVEL ONCE IN A LIFETIME-USE SMARTSET# [id number] Completed 08/02/2011, 04/24/2009, 06/25/2008, Additional history exists Mammogram Discontinued 12/18/2014, 11/05, 12/22/2006, Additional history exists Pneumococcal Vaccine: 65+ Years Completed 08/10/2017, 06/14/2016 Alpha-1 Antitrypsin Completed 03/15/2022 LUNG CANCER SCREENING - USE SMARTSET 43113 Completed 11/21/2022, 10/29/2022, 06/23/2022, Additional history exists [...] patient or by statute hierarchy) Care Teams Copyman Relationship Specialty Start Date End Date Hayes Maurer DO [address] [place] [address] PCP - General Family Medicine 04/04/19 documented as of this encounter
--- OUTSIDE RECORDS SUMMARY | 2023-02-27 12:57 | External Medical Summary | Summary of Care ---
Author Name Unknown Organization [facility] Address [address] [place] [address] Phone [phone] Care Team Providers Care Clinical Laboratory Director Name Role Phone Hayes Maurer DO Primary Care Provider Reason for Visit * Reason Onset Date Comments Appointment 11/25/2022 NO SHOW 11/25/22 Encounter Details Date Type Department Care Team Description 11/25/2022 Telephone Hematology/Oncology Ne Narayan [place] 200 [facility] [place] [address] Héctor Rodriguez MD 200 [facility] [place] [address] Appointment (NO SHOW 11/25/22) Allergies Active Allergy Reactions Severity Noted Date Comments Morphine 03/26/1997 Shock, dyspnea Other reaction(s): shock, dspnea Neomycin 04/07/2013 documented as of this encounter (statuses as of 11/28/2022) Medications Medication Sig Dispensed Refills Start Date [...] as of this encounter (statuses as of 11/28/2022) Active Problems Problem Noted Date Medical home [...] as of this encounter (statuses as of 11/28/2022) Resolved Problems Problem Noted Date Resolved Date [...] as of this encounter (statuses as of 11/28/2022) Immunizations Name Administration Dates Next Due COVID-19 mRNA, LNP-s, No Pre serve, 2-Dose Series ([employer]) 03/04/2021,07/22/2020,07/01/2020 Hepatitis B Vaccine 03/26/1997 Pneumococcal Conjugate [...] * Telephone Encounter - JADYN Espino - 11/28/2022 1:48 PM EDT Called patient, left message to reschedule missed appointment with Dr Rodriguez to review PET scan results. Patient can be scheduled any time with Dr Rodriguez. * Telephone Encounter - JADYN Espino - [...] Team Description 12/13/2022 Office Visit Cardiology Emery Kwan, DO [address] [place] [address] 01/17/2023 Hospital Encounter Endoscopy Michael Alejandro MD [address] [place] [address] 01/17/2023 Surgery Endoscopy Michael Alejandro MD [address] [place] [address] COLONOSCOPY FLEXIBLE PROXIMAL DIAGNOSTIC 02/08/2023 Imaging Radiology 03/07/2023 Office Visit Urology Sahil Funk MD [address] [place] [address] [place] [address] 03/09/2023 Office Visit Family Medicine Hayes Maurer DO [address] [place] [address] Scheduled Procedures Name Priority Associated Diagnoses Date/Ti [...] D LEVEL ONCE IN A LIFETIME-USE SMARTSET# [id number] Completed 08/02/2011, 04/24/2009, 06/25/2008, Additional history exists Mammogram Discontinued 12/18/2014, 11/05, 12/22/2006, Additional history exists Pneumococcal Vaccine: 65+ Years Completed 08/10/2017, 06/14/2016 Alpha-1 Antitrypsin Completed 03/15/2022 LUNG CANCER SCREENING - USE SMARTSET 83423 Completed 11/21/2022, 10/29/2022, 06/23/2022, Additional history exists [...] Healthcare Agent Relationshi p Communication Michael Cifuentes [place] Spouse Health Care Repr esentative (appointed verbally by patient or by statute hierarchy) Care Teams Clinical Laboratory Director Relationship Specialty Start Date End Date Hayes Maurer, [address] [place] [address] PCP - General Family Medicine 04/04/19 documented as of this encounter
--- OUTSIDE RECORDS SUMMARY | 2023-02-27 12:57 | External Medical Summary | Summary of Care ---
Author Name Unknown Organization [facility] Address [address] [place] [address] Phone [phone] Care Team Providers Care Vice Provost Name Role Phone Hayes Maurer DO Primary Care Provider Reason for Referral * Evaluate & Treat - Unlimited Visits (Within 10 days (routine)) - Authorized Specialty Diagnoses / Procedures Referred By Johanny garcia Referred To Contact Physical Therapy / Physical Medicine And Rehab Diagnoses Ambulatory dysfunction Muscular deconditioning Hip pain, unspecified laterality Hayes Maurer DO [address] [place] [address] Referral ID Status Reason Start Date Expiration Date Visits Requested Visits Authorized [id number] Authorized Specialty Services Required 12/12/[phone] Question Answer Referral Priority Within 10 days (routine) Where should this appointment be scheduled? External Comments Anywhere in town that is closest for her from her home Reason for Visit * Reason Onset Date Comments Advice 12/07/2022 Encounter Details Date Type Department Care Team Description 12/07/2022 Telephone Family Practice [facility] [address] [place] [address] Hayes Maurer DO [address] [place] [address] Advice Allergies Active Allergy Reactions Severity Noted Date [...] mRNA, LNP-s, No Pre serve, 2-Dose Series ([employer]) 03/04/2021,07/22/2020,07/01/2020 Pneumococcal Conjugate Vacc, 13 Valent (Prevnar) [...] * Telephone Encounter - Ambar Maurer - 12/12/2022 1:55 PM EDT Faxed to jovanni craig faxed * Telephone Encounter - Hayes Maurer DO - 12/12/2022 1:34 PM EDT Please coordinate PT for patient - closest office to her home if possible * Telephone Encounter - Kalani Espinoza LPN - 12/12/2022 9:37 AM EDT Lives in [place], not sure what would be close to there. We tend to use [facility] a lot across the street from this office. Unsure if she is looking for PT for her hip or deconditioning? There is another encounter out on this pt about her hip alyssa, not sure if Christine was working on trying to reach [facility] about that or if pt had the alyssa out yet. * Telephone Encounter - JADYN Hansen - 12/07/2022 2:35 PM EDT Pt is to do physical therapy, she is asking if there is somewhere close to her home to do this? Please call her back to advise. documented in this encounter Plan of Treatment Upcoming Encounters Date Type Specialty Care Team Description 02/08/2023 Imaging Radiology 03/07/2023 Office Visit Urology Sahil Funk MD [address] [place] [address] [place] [id number] 03/09/2023 Office Visit Family Medicine Hayes Maurer DO [address] [place] [address] Scheduled Procedures Name Priority Associated Diagnoses Date/Ti me COLONOSCOPY FLEXIBLE PROXIMA L DIAGNOSTIC Recall History of colon polyps Special screening for malignant neoplasms, colon Scheduled Referrals Name Type Priority Associated Diagnoses Orde r Schedule PHYSICAL THERAPY REFERRAL OP Referral Within 10 days (routine) Ambulatory dysfunction Muscular deconditioning Hip pain, unspecified laterality Ordered: 12/12/2022 Health Maintenance Due Date Last Done Comments DISCUSS TOBACCO CESSATION (REFER TO SMARTSET #0052) 1950 Hepatitis B (2 of 3 - [...] D LEVEL ONCE IN A LIFETIME-USE SMARTSET# [id number] Completed 08/02/2011, 04/24/2009, 06/25/2008, Additional history exists Mammogram Discontinued 12/18/2014, 11/05, 12/22/2006, Additional history exists Pneumococcal Vaccine: 65+ Years Completed 08/10/2017, 06/14/2016 Alpha-1 Antitrypsin Completed 03/15/2022 LUNG CANCER SCREENING - USE SMARTSET [id number] Completed 11/21/2022, 10/29/2022, 06/23/2022, Additional history exists GARDASIL-HPV IMMUNIZATION SERIES Aged Out No longer eligible based on patient's age to complete this topic MENINGOCOCCAL (MENACTRA/MENVEO) Aged Out No longer eligible based on patient's age to complete this topic documented as of this encounter Medical Devices Not on filedocumented as of this encounter Visit Diagnoses Diagnosis Ambulatory dysfunction- Primary Muscular deconditioning Muscular wasting and disuse atrophy, not elsewhere classified Hip pain, unspecified laterality documented in this encounter Advance Directives Healthcare Agents on File Name Relationship Healthcare Agent Relationshi p Communication Michael [place] Spouse Health Care Repr esentative (appointed verbally by patient or by statute hierarchy) Care Teams Vice Provost Relationship Specialty Start Date End Date Hayes Maurer DO [address] [place] [address] PCP - General Family Medicine 04/04/19 documented as of this encounter
--- OUTSIDE RECORDS SUMMARY | 2023-02-27 12:57 | External Medical Summary | Summary of Care ---
Author Name Unknown Organization [facility] Address [address] [address] Phone [phone] Care Team Providers Care Manager Disaster Recovery Name Role Phone Hayes Maurer Primary Care Provider Encounter Details Date Type Department Care Team Description 10/31/2022 Result Scan Unspecified Department <No scans attached> Allergies Active Allergy Reactions Severity Noted Date Comments Morphine 03/26/1997 Shock, dyspnea Other reaction(s): shock, dspnea Neomycin 04/07/2013 documented as of this encounter (statuses as of 12/08/2022) Medications Medication Sig Dispensed Refills Start Date [...] Sodium 40 MG Oral Tablet Delayed Release (Protonix)Indications :Esophagitis Take 1 Tablet by mouth in the morning. 90 Tablet 3 10/06/2022 Active Ipratropium-Albuterol 0.5-2.5 (3) MG/3ML Inhalation Solution (Duoneb)Indications:C OPD, group B, by GOLD 2017 classification (HCC) [...] 2 weeks. 84 Capsule 0 10/13/2022 Active documented as of this encounter (statuses as of 12/08/2022) Active Problems Problem Noted Date Medical home [...] as of this encounter (statuses as of 12/08/2022) Resolved Problems Problem Noted Date Resolved Date [...] as of this encounter (statuses as of 12/08/2022) Immunizations Name Administration Dates Next Due COVID-19 mRNA, LNP-s, No Pre serve, 2-Dose Series ([employer]) 03/04/2021,07/22/2020,07/01/2020 Pneumococcal Conjugate Vacc, 13 Valent (Prevnar) [...] Encounters Date Type Specialty Care Team Description 01/17/2023 Hospital Encounter Endoscopy Michael Alejandro MD [address] [place] [address] 01/17/2023 Surgery Endoscopy Michael Alejandro MD [address] [place] [address] COLONOSCOPY FLEXIBLE PROXIMAL DIAGNOSTIC 02/08/2023 Imaging Radiology 03/07/2023 Office Visit Urology Sahil Funk MD [address] [place] [id number] 03/09/2023 Office Visit Family Medicine Hayes Maurer DO [address] [place] [address] Scheduled Procedures Name Priority Associated Diagnoses Date/Ti me COLONOSCOPY FLEXIBLE PROXIMAL DIAGNOSTIC Recall History of colon polyps Special screening for malignant neoplasms, colon 01/17/2023 2:30 PM EST Health Maintenance Due Date Last Done Comments DISCUSS TOBACCO CESSATION (REFER TO SMARTSET #5808) 1950 Hepatitis B (2 of 3 - [...] YEAR FOR COPD 07/20/2023 07/19/2022 TSH 10/07/2023 10/24/2022, 0805/2022, 03/15/2022, Additional history exists Lipid Panel 03/15/2027 03/15/2022, 02/05, 10/01/2019, Additional history exists COLONOSCOPY-EVERY 5 YRS AGES 18-100 10/18/2027 10/17/2022, 12/26/2017, 12/26/2017, Additional history exists VITAMIN D LEVEL ONCE IN A LIFETIME-USE SMARTSET# 35974 Completed 08/02/2011, 04/24/2009, 06/25/2008, Additional history exists Mammogram Discontinued 12/18/2014, 11/05, 12/22/2006, Additional history exists Pneumococcal Vaccine: 65+ Years Completed 08/10/2017, 06/14/2016 Alpha-1 Antitrypsin Completed 03/15/2022 LUNG CANCER SCREENING - USE SMARTSET 14442 Completed 11/21/2022, 10/29/2022, 06/23/2022, Additional history exists GARDASIL-HPV IMMUNIZATION SERIES Aged Out No longer eligible based on patient's age to complete this topic MENINGOCOCCAL (MENACTRA/MENVEO) Aged Out No longer eligible based on patient's age to complete this topic documented as of this encounter Medical Devices Not on filedocumented as of this encounter Procedures Procedure Name Priority Date/Time Associated Diagnosis Comments RADIOLOGY SCANNED RESULT 10/31/2022 documented in this encounter Results * RADIOLOGY SCANNED RESULT (10/31/2022) 10/31/2022 No Physician Data Unknown DIAGNOSTIC RAD IOLOGY SERVICES documented in this encounter Additional Health Concerns Infection Onset Date Last Indicated Resolved Time C. difficile 10/12/2022 10/12/2022 11/11/2022 12:1 8 AM EDT documented as of this encounter Advance Directives Healthcare Agents on File Name Relationship Healthcare Agent Relationshi p Communication Michael Vane Funk Spouse Health Care Repr esentative (appointed verbally by patient or by statute hierarchy) Care Teams Manager Disaster Recovery Relationship Specialty Start Date End Date Hayes Maurer DO [address] [place] [address] PCP - General Family Medicine 04/04/19 documented as of this encounter
--- OUTSIDE RECORDS SUMMARY | 2023-02-27 12:57 | External Medical Summary | Summary of Care ---
Author Name Unknown Organization [facility] Address [address] [place] [address] Phone [phone] Care Team Providers Care Electronic Equipment Installer Name Role Phone Hayes Maurer DO Primary Care Provider Reason for Visit * Reason Onset Date Comments Advice 12/01/2022 Pls call to sche dule staple removal Encounter Details Date Type Department Care Team Description 12/01/[address] [facility] [address] [place] [address] Hayes Maurer DO [address] [place] [address] Advice (Pls call to schedule staple removal) [...] COPD, group B, by GOLD 2017 classification ([facility]) Inhale 3 mL via nebulizer [...] of the patient): Preferred call back number: [phone] Summary: Pt has been calling since 12/01 [...] would be agreeable to services. I called [facility] who report she had no showed [...] 12/06/2022 4:28 PM EDT FYI:Received records from [facility]. According to records, pt had L hip surgery on 10/27/[address] [facility] at [facility]. Contacted Dr. Scott's office at [phone], spoke with his nurse for more information. [...] private line number at our office at [phone] to let us know date and time [...] regarding this pt, still awaiting Records from [facility] on her hospital stay. * [...] as surgery sounds like it was with [facility]. Pt had no idea who or where her surgery was with and was exasperated at being asked. After questioning a bit further, it was figured out that [facility] was the location. Pt was advised that she likely would need to see [facility]/whoever had put in the alyssa to take them out, but that it also may be done at her PCP's office, that it is unclear due to not having any information about the surgery. Pt repeatedly asking for someone to continuous pickling line pickler helper the ball and figure this out for her because she has no idea. Pt was advised that Dr. Maurer's office is getting records from [facility] and is intending to call [...] LPN - 12/06/2022 2:33 PM EDT Called [facility] for records to be sent [...] nurse regarding this and her recovery time. [phone] * Telephone Encounter - JADYN Stearns - [...] Endoscopy Michael Alejandro MD [address] [place] [address] 01/17/2023 Surgery Endoscopy Michael Alejandro MD [address] [place] [address] COLONOSCOPY FLEXIBLE PROXIMAL DIAGNOSTIC 02/08/2023 Imaging Radiology 03/07/2023 Office Visit Urology Sahil Funk MD [address] [place] [address] 03/09/2023 Office Visit Family Medicine Hayes Maurer DO [address] [place] [address] Scheduled Procedures Name Priority Associated Diagnoses Date/Ti [...] D LEVEL ONCE IN A LIFETIME-USE SMARTSET# [id number] Completed 08/02/2011, 04/24/2009, 06/25/2008, Additional history exists Mammogram Discontinued 12/18/2014, 11/05, 12/22/2006, Additional history exists Pneumococcal Vaccine: 65+ Years Completed 08/10/2017, 06/14/2016 Alpha-1 Antitrypsin Completed 03/15/2022 LUNG CANCER SCREENING - USE SMARTSET 59910 Completed 11/21/2022, 10/29/2022, 06/23/2022, Additional history exists [...] or by statute hierarchy) Care Teams Electronic Equipment Installer Relationship Specialty Start Date End Date Hayes Maurer DO [address] [place] [address] PCP - General Family Medicine 04/04/19 documented as of this encounter
--- OUTSIDE RECORDS SUMMARY | 2023-02-27 12:57 | External Medical Summary | Summary of Care ---
Author Name Unknown Organization [facility] Address [address] [place] [address] Phone [phone] Care Team Providers Care Flower Picker Name Role Phone Hayes Maurer DO Primary Care Provider Reason for Visit * Reason Onset Date Comments Advice 12/01/2022 Pls call to sche dule staple removal Encounter Details Date Type Department Care Team Description 12/01/2022 Telephone Family Practice [facility] [address] [place] [address] Hayes Maurer DO [address] [place] [address] Advice (Pls call to schedule staple removal) [...] B, by GOLD 2017 classification ([facility]) Inhale 3 mL via nebulizer [...] pt was indeed seen for staple removal. [facility] pt was seen for appointment on 12/07/2022, next appt with them on 01/23/23. Advised to fax office notes with [facility] from 12/07/22 appt to our private nurse fax at [phone]. Awaiting notes. * Telephone Encounter - Kalani [...] of the patient): Preferred call back number: [phone] Summary: Pt has been calling since 12/01 [...] would be agreeable to services. I called [facility] who report she had no showed [...] 10/27/[address] [facility] at [facility]. Contacted Dr. Scott's office at [phone], spoke with his nurse for more information. [...] private line number at our office at [phone] to let us know date and time [...] this pt, still awaiting Records from [facility] on her hospital stay. * Telephone [...] anxiousabout coming in. * Telephone Encounter - India Gupta, JADYN - 12/06/2022 3:12 PM EDT Pt calling in regarding staple removal. Had been transferred to Gen Surg in error, as surgery sounds like it was with [facility]. Pt had no idea who or where her surgery was with and was exasperated at being asked. After questioning a bit further, it was figured out that [facility] was the location. Pt was advised that she likely would need to see [facility]/whoever had put in the alyssa to take them out, but that it also may be done at her PCP's office, that it is unclear due to not having any information about the surgery. Pt repeatedly asking for someone to orange picker the ball and figure this out for her because she has no idea. Pt was advised that Dr. Maurer's office is getting records from [facility] and is intending to call back; [...] - 12/06/2022 2:33 PM EDT Called [facility] for records to be sent over [...] nurse regarding this and her recovery time. [phone] * Telephone Encounter - JADYN Stearns - 12/01/2022 4:16 PM EDT Pt called stating that she has surgery on a leg fracture at [facility]. Pt does not remember the date or [...] DO [address] [place] [address] Scheduled Procedures Name Priority Associated Diagnoses [...] FOR COPD 07/20/2023 07/19/2022 TSH 10/25/2023 10/24/2022, 05/2022, 03/15/2022, Additional history exists Lipid Panel 03/15/2027 03/15/2022, 02/05, 10/01/2019, Additional history exists COLONOSCOPY-EVERY 5 YRS AGES 18-100 10/18/2027 10/17/2022, 12/26/2017, 12/26/2017, Additional history exists VITAMIN D LEVEL ONCE IN A LIFETIME-USE SMARTSET# [id number] Completed 08/02/2011, 04/24/2009, 06/25/2008, Additional history exists Mammogram Discontinued 12/18/2014, 11/05, 12/22/2006, Additional history exists Pneumococcal Vaccine: 65+ Years Completed 08/10/2017, 06/14/2016 Alpha-1 Antitrypsin Completed 03/15/2022 LUNG CANCER SCREENING - USE SMARTSET 96323 Completed 11/21/2022, 10/29/2022, 06/23/2022, Additional history exists [...] patient or by statute hierarchy) Care Teams Flower Picker Relationship Specialty Start Date End Date Hayes Maurer, [address] [place] [address] PCP - General Family Medicine 04/04/19 documented as of this encounter
--- OUTSIDE RECORDS SUMMARY | 2023-02-27 12:57 | External Medical Summary | Summary of Care ---
Author Name Unknown Organization [facility] Address [address] [place] [address] Phone [phone] Care Team Providers Care Cutter Down Name Role Phone Hayes Maurer DO Primary Care Provider Reason for Visit * Reason Onset Date Comments Advice 12/01/2022 Pls call to sche dule staple removal Encounter Details Date Type Department Care Team Description 12/01/2022 Telephone Family Practice [facility] [address] [place] [address] Hayes Maurer DO [address] [place] [address] Advice (Pls call to schedule staple removal) Allergies Active Allergy Reactions Severity Noted Date Comments Morphine 03/26/1997 Shock, dyspnea Other reaction(s): shock, dspnea Neomycin 04/07/2013 documented as of this encounter (statuses as of 12/07/2022) Medications Medication Sig Dispensed Refills Start Date [...] COPD, group B, by GOLD 2017 classification ([facility]) Inhale 3 mL via nebulizer every 6 [...] as of this encounter (statuses as of 12/07/2022) Active Problems Problem Noted Date Medical home [...] as of this encounter (statuses as of 12/07/2022) Resolved Problems Problem Noted Date Resolved Date [...] as of this encounter (statuses as of 12/07/2022) Immunizations Name Administration Dates Next Due COVID-19 [...] would be agreeable to services. I called [facility] who report she had no showed [...] 12/06/2022 4:28 PM EDT FYI:Received records from [facility]. According to records, pt had L hip surgery on 10/27/[address] [facility] at [facility]. Contacted Dr. Scott's office at [phone], spoke with his nurse for more information. [...] private line number at our office at [phone] to let us know date and time of her appointment. Records placed in scanning. * Telephone Encounter - Hayes Maurer DO - 12/06/2022 4:11 PM EDT Noted Await records We do not have topical lidocaine in the office Advise involving nIdia Wilks * Telephone Encounter - Christine Parra LPN - 12/06/2022 3:42 PM EDT Please see ALL messages regarding this pt, still awaiting Records from [facility] on her hospital stay. * Telephone [...] as surgery sounds like it was with [facility]. Pt had no idea who or where her surgery was with and was exasperated at being asked. After questioning a bit further, it was figured out that [facility] was the location. Pt was advised that she likely would need to see [facility]/whoever had put in the alyssa to take them out, but that it also may be done at her PCP's office, that it is unclear due to not having any information about the surgery. Pt repeatedly asking for someone to picker feeder the ball and figure this out for her because she has no idea. Pt was advised that Dr. Maurer's office is getting records from [facility] and is intending to call back; [...] LPN - 12/06/2022 2:33 PM EDT Called [facility] for records to be sent over [...] nurse regarding this and her recovery time. [phone] * Telephone Encounter - Karina JADYN Gamez - 12/01/2022 4:16 PM EDT Pt called stating that she has surgery on a leg fracture at [facility]. Pt does not remember the date or surgeons name and would like a call back to discuss staple removal. Thank You! documented in this encounter Plan of Treatment Upcoming Encounters Date Type Specialty Care Team Description 01/17/2023 Hospital Encounter Endoscopy Michael Alejandro MD [address] [place] [address] 01/17/2023 Surgery Endoscopy Michael Alejandro MD [address] [place] [address] COLONOSCOPY FLEXIBLE PROXIMAL DIAGNOSTIC 02/08/2023 Imaging Radiology 03/07/2023 Office Visit Urology Sahil Funk MD [address] [place] [address] 03/09/2023 Office Visit Family Medicine Hayes Maurer DO [address] [place] [address] Scheduled Procedures Name Priority Associated Diagnoses Date/Ti me COLONOSCOPY FLEXIBLE PROXIMAL DIAGNOSTIC Recall History of colon polyps Special screening for malignant neoplasms, colon 01/17/2023 2:30 PM EST Health Maintenance Due Date Last Done Comments DISCUSS TOBACCO CESSATION (REFER TO SMARTSET #3880) 1950 Hepatitis B (2 of 3 - [...] D LEVEL ONCE IN A LIFETIME-USE SMARTSET# 46741 Completed 08/02/2011, 04/24/2009, 06/25/2008, Additional history exists Mammogram Discontinued 12/18/2014, 11/05, 12/22/2006, Additional history exists Pneumococcal Vaccine: 65+ Years Completed 08/10/2017, 06/14/2016 Alpha-1 Antitrypsin Completed 03/15/2022 LUNG CANCER SCREENING - USE SMARTSET 56119 Completed 11/21/2022, 10/29/2022, 06/23/2022, Additional history exists [...] patient or by statute hierarchy) Care Teams Cutter Down Relationship Specialty Start Date End Date Hayes Maurer DO [address] [place] [address] PCP - General Family Medicine 04/04/19 documented as of this encounter
--- OUTSIDE RECORDS SUMMARY | 2023-02-27 12:57 | External Medical Summary | Summary of Care ---
Author Name Unknown Organization [facility] Address [address] [place] [address] Phone [phone] Care Team Providers Care Lumber Racker Name Role Phone Hayes Maurer Primary Care Provider Reason for Visit * Reason Comments case management [facility] x 3 Encounter Details Date Type Department Care Team Description 11/21/2022 Presales ConsultantAmmonium Sulfate Operator Practice [facility] [address] [place] [address] India Wilks, RN Medical home patient encounter* Allergies Active Allergy Reactions Severity Noted Date [...] COPD, group B, by GOLD 2017 classification ([facility]) Inhale 3 mL via nebulizer every [...] mRNA, LNP-s, No Pre serve, 2-Dose Series ([employer]) 03/04/2021,07/22/2020,07/01/2020 Pneumococcal Conjugate Vacc, 13 Valent (Prevnar) [...] Progress Notes * India Wilks RN - 11/21/2022 10:11 AM EDT Follow-up Post Discharge Attempted Phone Call Third Attempt Call Outcome Left Voicemail/Message Plan To attempt another outreach documented in this encounter Plan of Treatment Upcoming Encounters Date Type Specialty Care Team Description 11/25/2022 Office Visit Hematology Oncology Héctor Rodriguez MD [address] [facility] [place] [address] 12/13/2022 Office Visit Cardiology Emery Kwan DO [address] [place] [address] 01/17/2023 Hospital Encounter Endoscopy Michael Alejandro MD [address] [place] [address] 01/17/2023 Surgery Endoscopy Michael Alejandro MD [address] [place] [address] COLONOSCOPY FLEXIBLE PROXIMAL DIAGNOSTIC 02/08/2023 Imaging Radiology 03/07/2023 Office Visit Urology Sahil Funk MD [address] [place] [address] 03/09/2023 Office Visit Family Medicine Hayes Maurer DO [address] [place] [address] Scheduled Procedures Name Priority Associated Diagnoses Date/Ti me COLONOSCOPY FLEXIBLE PROXIMAL DIAGNOSTIC Recall History of colon polyps Special screening for malignant neoplasms, colon 01/17/2023 2:30 PM EST Health Maintenance Due Date Last Done Comments DISCUSS TOBACCO CESSATION (REFER TO SMARTSET #5841) 1950 Hepatitis B (2 of 3 - [...] D LEVEL ONCE IN A LIFETIME-USE SMARTSET# 56911 Completed 08/02/2011, 04/24/2009, 06/25/2008, Additional history exists Mammogram Discontinued 12/18/2014, 11/05, 12/22/2006, Additional history exists Pneumococcal Vaccine: 65+ Years Completed 08/10/2017, 06/14/2016 Alpha-1 Antitrypsin Completed 03/15/2022 LUNG CANCER SCREENING - USE SMARTSET 03249 Completed 10/29/2022, 06/23/2022, 10/15/2019, Additional history exists GARDASIL-HPV IMMUNIZATION SERIES Aged Out No longer eligible based on patient's age to complete this topic MENINGOCOCCAL (MENACTRA/MENVEO) Aged Out No longer eligible based on patient's age to complete this topic documented as of this encounter Medical Devices Not on filedocumented as of this encounter Visit Diagnoses Diagnosis Medical home patient encounter- Primary Other specified examination History of colon polyps Personal history of colonic polyps Special screening for malignant neoplasms, colon documented in this encounter Advance Directives Healthcare Agents on File Name Relationship Healthcare Agent Relationshi p Communication Michael Cifuentes Funk Spouse Health Care Repr esentative (appointed verbally by patient or by statute hierarchy) Care Teams Lumber Racker Relationship Specialty Start Date End Date Hayes Maurer DO [address] [place] [address] PCP - General Family Medicine 04/04/19 documented as of this encounter
--- OUTSIDE RECORDS SUMMARY | 2023-02-27 12:57 | External Medical Summary | Summary of Care ---
Author Name Unknown Organization [facility] Address [address] [address] Phone [phone] Care Team Providers Care Civil Division Deputy Sheriff Name Role Phone Hayes Maurer Primary Care Provider Encounter Details Date Type Department Care Team Description 10/24/2022 Result Scan Unspecified Department <No scans attached> [...] mRNA, LNP-s, No Pre serve, 2-Dose Series ([employer]) 03/04/2021,07/22/2020,07/01/2020 Pneumococcal Conjugate Vacc, 13 Valent (Prevnar) [...] Alejandro MD [address] [place] [address] 01/17/2023 Surgery Endoscopy Michael Alejandro MD [address] [place] [address] COLONOSCOPY FLEXIBLE PROXIMAL DIAGNOSTIC 02/08/2023 Imaging Radiology 03/07/2023 Office Visit Urology Sahil Funk MD [address] [place] [address] [place] [id number] 03/09/2023 Office Visit Family Medicine Hayes Maurer DO [address] [place] [address] Scheduled Procedures Name Priority Associated Diagnoses Date/Ti me COLONOSCOPY FLEXIBLE PROXIMAL DIAGNOSTIC Recall History of colon polyps Special screening for malignant neoplasms, colon 01/17/2023 2:30 PM EST Health Maintenance Due Date Last Done Comments DISCUSS TOBACCO CESSATION (REFER TO SMARTSET #8232) 1950 Hepatitis B (2 of 3 - [...] FOR COPD 07/20/2023 07/19/2022 TSH 10/07/2023 10/24/2022, 08/05/2022, 03/15/2022, Additional history exists Lipid Panel 03/15/2027 03/15/2022, 02/05, 10/01/2019, Additional history exists COLONOSCOPY-EVERY 5 YRS AGES 18-100 10/18/2027 10/17/2022, 12/26/2017, 12/26/2017, Additional history exists VITAMIN D LEVEL ONCE IN A LIFETIME-USE SMARTSET# [id number] Completed 08/02/2011, 04/24/2009, 06/25/2008, Additional history exists Mammogram Discontinued 12/18/2014, 11/05, 12/22/2006, Additional history exists Pneumococcal Vaccine: 65+ Years Completed 08/10/2017, 06/14/2016 Alpha-1 Antitrypsin Completed 03/15/2022 LUNG CANCER SCREENING - USE SMARTSET [id number] Completed 11/21/2022, 10/29/2022, 06/23/2022, Additional history exists GARDASIL-HPV IMMUNIZATION SERIES Aged Out No longer eligible based on patient's age to complete this topic MENINGOCOCCAL (MENACTRA/MENVEO) Aged Out No longer eligible based on patient's age to complete this topic documented as of this encounter Medical Devices Not on filedocumented as of this encounter Procedures Procedure Name Priority Date/Time Associated Diagnosis Comments RADIOLOGY SCANNED RESULT 10/27/2022 RADIOLOGY SCANNED RESULT 10/27/2022 RADIOLOGY SCANNED RESULT 10/26/2022 RADIOLOGY SCANNED RESULT 10/24/2022 RADIOLOGY SCANNED RESULT 10/24/2022 documented in this encounter Results * RADIOLOGY SCANNED RESULT (10/27/2022) 10/27/2022 No Physician Data Unknown DIAGNOSTIC RAD IOLOGY SERVICES * RADIOLOGY SCANNED RESULT (10/27/2022) 10/27/2022 No Physician Data Unknown DIAGNOSTIC RAD IOLOGY SERVICES * RADIOLOGY SCANNED RESULT (10/26/2022) 10/26/2022 No Physician Data Unknown DIAGNOSTIC RAD IOLOGY SERVICES * RADIOLOGY SCANNED RESULT (10/24/2022) 10/24/2022 No Physician Data Unknown DIAGNOSTIC RAD IOLOGY SERVICES * RADIOLOGY SCANNED RESULT (10/24/2022) 10/24/2022 No Physician Data Unknown DIAGNOSTIC RAD IOLOGY SERVICES documented in this encounter Additional Health Concerns Infection Onset Date Last Indicated Resolved Time C. difficile 10/12/2022 10/12/2022 11/11/2022 12:1 8 AM EDT documented as of this encounter Advance Directives Healthcare Agents on File Name Relationship Healthcare Agent Relationshi p Communication Michael Cifuentes [facility] Care Repr esentative (appointed verbally by patient or by statute hierarchy) Care Teams Civil Division Deputy Sheriff Relationship Specialty Start Date End Date Hayes Maurer DO [address] [place] [address] PCP - General Family Medicine 1/30/20 documented as of this encounter
--- OUTSIDE RECORDS SUMMARY | 2023-02-27 12:57 | External Medical Summary | Summary of Care ---
Author Name Unknown Organization [facility] Address [address] [place] [address] Phone [phone] Care Team Providers Care Bilingual Teacher Name Role Phone Hayes Maurer DO Primary Care Provider Encounter Details Date Type Department Care Team Description 12/08/2022 Orders Only [facility] [address] [place] [address] Hayes Maurer DO [address] [place] [address] Allergies Active Allergy Reactions Severity Noted Date [...] group B, by GOLD 2017 classification ([facility]) Inhale 3 mL via nebulizer [...] mRNA, LNP-s, No Pre serve, 2-Dose Series ([employer]) 03/04/2021,07/22/2020,07/01/2020 Pneumococcal Conjugate Vacc, 13 Valent (Prevnar) [...] Endoscopy Michael Alejandro MD [address] [place] [address] 01/17/2023 Surgery Endoscopy Michael Alejandro MD [address] [place] [address] COLONOSCOPY FLEXIBLE PROXIMAL DIAGNOSTIC 02/08/2023 Imaging Radiology 03/07/2023 Office Visit Urology Sahil Funk MD [address] [place] [address] [place] [phone] 03/09/2023 Office Visit Family Medicine Hayes Maurer DO [address] [place] [address] Scheduled Procedures Name Priority Associated Diagnoses Date/Ti [...] D LEVEL ONCE IN A LIFETIME-USE SMARTSET# [id number] Completed 08/02/2011, 04/24/2009, 06/25/2008, Additional history exists Mammogram Discontinued 12/18/2014, 11/05, 12/22/2006, Additional history exists Pneumococcal Vaccine: 65+ Years Completed 08/10/2017, 06/14/2016 Alpha-1 Antitrypsin Completed 03/15/2022 LUNG CANCER SCREENING - USE SMARTSET 69457 Completed 11/21/2022, 10/29/2022, 06/23/2022, Additional history exists [...] 10/28/2022 History Per Patient LAB BLOOD ORDERABLES Performing Organization Address City/State/[facility] Co de Phone Number OUTSIDE LAB (SEE SCANNED REPORT) * (ABNORMAL) TSH (10/24/2022) TSH - OUTSIDE LAB 32.058(A) 0.300 - 4.500 UIU/ML OUTSIDE LAB (SEE SCANNED REPORT) Blood Venous blood specimen / Unknown 10/24/2022 History Per Patient LAB BLOOD ORDERABLES Performing Organization Address City/[facility] Co de Phone Number OUTSIDE LAB (SEE SCANNED REPORT) documented in this encounter Advance Directives Healthcare Agents on File Name Relationship Healthcare Agent Relationshi p Communication Michael Cifuentes [facility] Health Care Repr esentative (appointed verbally by patient or by statute hierarchy) Care Teams Bilingual Teacher Relationship Specialty Start Date End Date Hayes Maurer DO [address] [place] [address] PCP - General Family Medicine 04/04/19 documented as of this encounter
--- OUTSIDE RECORDS SUMMARY | 2023-02-27 12:57 | External Medical Summary | Summary of Care ---
Author Name Unknown Organization [facility] Address [address] [address] Phone [phone] Care Team Providers Care Manager Inventory Name Role Phone Hayes Maurer Primary Care Provider Encounter Details Date Type Department Care Team Description 11/02/2022 Result Scan Unspecified Department <No scans attached> [...] mRNA, LNP-s, No Pre serve, 2-Dose Series ([employer]) 03/04/2021,07/22/2020,07/01/2020 Pneumococcal Conjugate Vacc, 13 Valent (Prevnar) [...] Alejandro MD [address] [place] [address] 01/17/2023 Surgery Endoscopy Michael Alejandro MD [address] [place] [address] COLONOSCOPY FLEXIBLE PROXIMAL DIAGNOSTIC 02/08/2023 Imaging Radiology 03/07/2023 Office Visit Urology Sahil Funk MD [address] [place] [address] [place] [phone] 03/09/2023 Office Visit Family Medicine Hayes Maurer DO [address] [place] [address] Scheduled Procedures Name Priority Associated Diagnoses Date/Ti me COLONOSCOPY FLEXIBLE PROXIMAL DIAGNOSTIC Recall History of colon polyps Special screening for malignant neoplasms, colon 01/17/2023 2:30 PM EST Health Maintenance Due Date Last Done Comments DISCUSS TOBACCO CESSATION (REFER TO SMARTSET #4356) 1950 Hepatitis B (2 of 3 - [...] D LEVEL ONCE IN A LIFETIME-USE SMARTSET# [id number] Completed 08/02/2011, 04/24/2009, 06/25/2008, Additional history exists Mammogram Discontinued 12/18/2014, 11/05, 12/22/2006, Additional history exists Pneumococcal Vaccine: 65+ Years Completed 08/10/2017, 06/14/2016 Alpha-1 Antitrypsin Completed 03/15/2022 LUNG CANCER SCREENING - USE SMARTSET 87802 Completed 11/21/2022, 10/29/2022, 06/23/2022, Additional history exists GARDASIL-HPV IMMUNIZATION SERIES Aged Out No longer eligible based on patient's age to complete this topic MENINGOCOCCAL (MENACTRA/MENVEO) Aged Out No longer eligible based on patient's age to complete this topic documented as of this encounter Medical Devices Not on filedocumented as of this encounter Procedures Procedure Name Priority Date/Time Associated Diagnosis Comments OUTSIDE LAB RESULTS 11/02/2022 documented in this encounter Results * OUTSIDE LAB RESULTS (11/02/2022) 11/02/2022 No Physician Data Unknown LABORATORY documented in this encounter Additional Health Concerns Infection Onset Date Last Indicated Resolved Time C. difficile 10/12/2022 10/12/2022 11/11/2022 12:1 8 AM EDT documented as of this encounter Advance Directives Healthcare Agents on File Name Relationship Healthcare Agent Relationshi p Communication Michael Cifuentes [facility] Spouse Health Care Repr esentative (appointed verbally by patient or by statute hierarchy) Care Teams Manager Inventory Relationship Specialty Start Date End Date Hayes Maurer DO [address] [place] [address] PCP - General Family Medicine 04/04/19 documented as of this encounter
--- OUTSIDE RECORDS SUMMARY | 2023-02-27 12:57 | External Medical Summary | Summary of Care ---
Author Name Unknown Organization [facility] Address [address] [place] [address] Phone [phone] Care Team Providers Care Paving And Surfacing Labourer Name Role Phone Hayes Maurer DO Primary Care Provider Reason for Referral * Evaluate & Treat - Unlimited Visits (Within 10 days (routine)) - Authorized Specialty Diagnoses / Procedures Referred By Johanny garcia Referred To Contact Physical Therapy / Physical Medicine And Rehab Diagnoses Ambulatory dysfunction Muscular deconditioning Hip pain, unspecified laterality Hayes Maurer DO [address] [place] [address] Referral ID Status Reason Start Date Expiration Date Visits Requested Visits Authorized [id number] Authorized Specialty Services Required 12/12/[phone] Question Answer Referral Priority Within 10 days (routine) Where should this appointment be scheduled? External Comments Anywhere in town that is closest for her from her home Reason for Visit * Reason Onset Date Comments Advice 12/07/2022 Encounter Details Date Type Department Care Team Description 12/07/2022 Telephone Family Practice [facility] [address] [place] [address] Hayes Maurer DO [address] [place] [address] Advice Allergies Active Allergy Reactions Severity Noted [...] mRNA, LNP-s, No Pre serve, 2-Dose Series ([employer]) 03/04/2021,07/22/2020,07/01/2020 Pneumococcal Conjugate Vacc, 13 Valent (Prevnar) [...] - 12/12/2022 9:37 AM EDT Lives in [place], not sure what would be close to [...] [address] [place] [address] [place] [phone] 03/09/2023 Office Visit Family Medicine Hayes Maurer DO [address] [place] [address] Scheduled Procedures Name Priority Associated Diagnoses Date/Ti [...] Comments DISCUSS TOBACCO CESSATION (REFER TO SMARTSET #3132) 1950 Hepatitis B (2 of 3 - [...] D LEVEL ONCE IN A LIFETIME-USE SMARTSET# [id number] Completed 08/02/2011, 04/24/2009, 06/25/2008, Additional history exists Mammogram Discontinued 12/18/2014, 11/05, 12/22/2006, Additional history exists Pneumococcal Vaccine: 65+ Years Completed 08/10/2017, 06/14/2016 Alpha-1 Antitrypsin Completed 03/15/2022 LUNG CANCER SCREENING - USE SMARTSET 06714 Completed 11/21/2022, 10/29/2022, 06/23/2022, Additional history exists [...] patient or by statute hierarchy) Care Teams Paving And Surfacing Labourer Relationship Specialty Start Date End Date Hayes Maurer DO [address] [place] [address] PCP - General Family Medicine 04/04/19 documented as of this encounter
--- OUTSIDE RECORDS SUMMARY | 2023-02-27 12:58 | External Medical Summary ---
Author Name Unknown Address Unknown Organization [facility] [place] [address] Laboratory Report Ordering Provider Test Date Status ARLEEN FIGUEROA 11/10/2022 05:55:00 Final Observation Date Value Abnormality Reference (Units ) Status BUN 11/10/2022 05:55:00 15 6-20 (mg/dL) Final Creatinine 11/10/2022 05:55:00 0.6 0.5-1.0 (mg/dL) Final Glomerular filtration rate/1.73 sq M.predicted [Volume Rate/Area] in Serum, Plasma or Blood by Creatinine-based formula (CKD-EPI) 11/10/2022 05:55:00 >90 >=60 (mL/min) Final eGFR is calculated based on the CKD-EPI 2020 equation SODIUM 11/10/2022 05:55:00 138 135-146 (m mol/L) Final Potassium 11/10/2022 05:55:00 4.5 3.5-5.1 (m mol/L) Final Cl 11/10/2022 05:55:00 102 98-107 (mm ol/L) Final CO2 11/10/2022 05:55:00 24 22-32 (mmo l/L) Final Anion gap 11/10/2022 05:55:00 12 7-15 (mmol /L) Final Glucose 11/10/2022 05:55:00 80 70-120 (mg /dL) Final Calcium 11/10/2022 05:55:00 7.9 Below low normal 8.4 -10.2 (mg/dL) Final Performing Location [facility] [place] [address]
--- OUTSIDE RECORDS SUMMARY | 2023-02-27 12:58 | External Medical Summary | Summary of Care ---
Author Name Unknown Organization [facility] Address [address] [place] [address] Phone [phone] Care Team Providers Care Fabrics And Material Cutter Name Role Phone Hayes Maurer DO Primary Care Provider Encounter Details Date Type Department Care Team Description 11/01/2022 Result Scan Unspecified Department Hayes Maurer DO [address] [place] [address] <No scans attached> Allergies Active Allergy Reactions Severity Noted Date Comments Morphine 03/26/1997 Shock, dyspnea Other reaction(s): shock, dspnea Neomycin 04/07/2013 documented as of this encounter (statuses as of 11/08/2022) Medications Medication Sig Dispensed Refills Start Date End Date Status Oxybutynin Chloride ER 5 MG Oral Tablet Extended Release 24 Hour (Ditropan XL) Take 1 Tablet by mouth in the morning. 30 Tablet 6 09/07/2022 Active Levothyroxine Sodium 88 MCG Oral Tablet (Levoxyl)Indications: Postoperative hypothyroidism Take 1 Tablet by mouth in the morning. (at least 30 min prior to breakfast or other meds). 90 Tablet 3 10/06/2022 Active Metoprolol Succinate ER 25 MG Oral [...] as of this encounter (statuses as of 11/08/2022) Active Problems Problem Noted Date Medical home [...] as of this encounter (statuses as of 11/08/2022) Resolved Problems Problem Noted Date Resolved Date [...] as of this encounter (statuses as of 11/08/2022) Immunizations Name Administration Dates Next Due COVID-19 [...] Encounters Date Type Specialty Care Team Description 11/09/2022 Office Visit Hematology Oncology Héctor Rodriguez MD [address] [place] [address] 11/09/2022 Office Visit Urology Sahil Funk MD [address] [place] [address] [place] [address] 11/17/2022 Office Visit Family Medicine Hayes Maurer, [address] [place] [address] 12/13/2022 Office Visit Cardiology Emery Kwan, [address] [place] [address] 01/17/2023 Hospital Encounter Endoscopy Michael Alejandro MD [address] [place] [address] 01/17/2023 Surgery Endoscopy Michael Alejandro MD [address] [place] [address] COLONOSCOPY FLEXIBLE PROXIMAL DIAGNOSTIC 03/09/2023 Office Visit Family Medicine Erasto Hayes ShermargotDO [address] [place] [address] Scheduled Procedures Name Priority Associated Diagnoses Date/Ti [...] Influenza Vaccine (FLU shot) (#1) 2022 Depression Screening, Annual for Pts 12 and Over 03/15/2023 03/15/2022 O2 ASSESSMENT COMPLETED IN PAST YEAR FOR COPD 07/20/2023 07/19/2022 TSH 10/07/2023 10/06/2022, 03/06, 03/04/2021, Additional history exists Lipid Panel 03/15/2027 03/15/2022, 02/05, 10/01/2019, Additional history exists COLONOSCOPY-EVERY 5 YRS AGES 18-100 10/18/2027 10/17/2022, 12/26/2017, 12/26/2017, Additional history exists VITAMIN D LEVEL ONCE IN A LIFETIME-USE SMARTSET# [id number] Completed 08/02/2011, 04/24/2009, 06/25/2008, Additional history exists Mammogram Discontinued 12/18/2014, 11/05, 12/22/2006, Additional history exists Pneumococcal Vaccine: 65+ Years Completed 08/10/2017, 06/14/2016 Alpha-1 Antitrypsin Completed 03/15/2022 LUNG CANCER SCREENING - USE SMARTSET 07089 Completed 10/29/2022, 06/23/2022, 10/15/2019, Additional history exists GARDASIL-HPV IMMUNIZATION SERIES Aged Out No longer eligible based on patient's age to complete this topic MENINGOCOCCAL (MENACTRA/MENVEO) Aged Out No longer eligible based on patient's age to complete this topic documented as of this encounter Medical Devices Not on filedocumented as of this encounter Procedures Procedure Name Priority Date/Time Associated Diagnosis Comments PATHOLOGY SCANNED RESULT 11/01/2022 documented in this encounter Results * PATHOLOGY SCANNED RESULT (11/01/2022) 11/01/2022 Hayes Maurer DO PATHOLOGY documented in this encounter Additional Health Concerns Infection Onset Date Last Indicated Resolved Time C. difficile 10/12/2022 10/12/2022 documented as of this encounter Advance Directives Healthcare Agents on File Name Relationship Healthcare Agent Relationshi p Communication Michael Funk Spouse Health Care Repr esentative (appointed verbally by patient or by statute hierarchy) Care Teams Fabrics And Material Cutter Relationship Specialty Start Date End Date Hayes Maurer DO [address] [place] [address] PCP - General Family Medicine 04/04/19 documented as of this encounter
--- OUTSIDE RECORDS SUMMARY | 2023-02-27 12:58 | External Medical Summary | Summary of Care ---
Author Name Unknown Organization [facility] Address [address] [place] [address] Phone [phone] Care Team Providers Care Mixing Supervisor Name Role Phone Hayes Maurer Primary Care Provider Reason for Visit * Reason Onset Date Comments NEW PATIENT 11/04/2022 OMEGA SEEN SOONER Encounter Details Date Type Department Care Team Description 11/04/2022 Telephone Hematology/Oncology [place], [place] [address] [place] [address] Mayda Carmona MD [address] [place] [address] NEW PATIENT (OMEGA SEEN SOONER) Allergies Active Allergy Reactions Severity Noted Date Comments Morphine 03/26/1997 Shock, dyspnea Other reaction(s): shock, dspnea Neomycin 04/07/2013 documented as of this encounter (statuses as of 11/04/2022) Medications Medication Sig Dispensed Refills Start Date [...] as of this encounter (statuses as of 11/04/2022) Active Problems Problem Noted Date Medical home [...] as of this encounter (statuses as of 11/04/2022) Resolved Problems Problem Noted Date Resolved Date [...] as of this encounter (statuses as of 11/04/2022) Immunizations Name Administration Dates Next Due COVID-19 [...] Telephone Encounter - Ariadna Maurer CMA - 11/04/2022 1:40 PM EDT Images from the original note were not included. I reviewed 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 The tumor has two components. The majority represents a small cell carcinoma. The minority represents a non-small cell carcinoma without any definitive adenocarcinoma or squamous cell carcinoma differentiation. Please schedule her. Dr. Héctor Rodriguez Hem/Onc Previous Messages ----- Message ----- From: Ariadna Maurer CMA Sent: 11/03/2022 2:41 PM EDT To: Héctor Rodriguez MD, Mayda Carmona MD Subject: New Oncology Good afternoon, Dr. Hayes Maurer referred above patient for enlarged lymph nodes but I could not find any biopsy ofthe lymph nodes. Please review and advise if Dr. Maurer needs to do further work up prior to patient being seen at Oncology Thank you, Ariadna * Telephone Encounter - Ariadna Maurer CMA - 11/04/2022 10:33 AM EDT Called [facility] where patient is residing at this moment after discharge from the hospital. Spoke with Trudy at [facility] who handles appointments and she agreed to bring Kaci on 11/[address] Héctor Rodriguez * Telephone Encounter - JADYN Espino - 11/04/2022 8:29 AM EDT Called patient, unable to leave message. Scheduled new patient appointment 11/09/22 to save the spot.Will continue reaching out. * Telephone Encounter - Pili Bowie RN - 11/04/2022 8:21 AM EDT Received message from Luis Stone- patient was admitted, discharged to [facility]. 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 Small cell component is small dunk but large cell component is not obviously adeno or squamous and may end up "non-small cell, NOS"." This is from pathologist. She is discharging today to [facility](she had hip fx) severe malnutrition, 47.5kg 25#wt loss in 1 month. Can you get her an appt to be seen?" Patient can be reached at [phone]. Scheduling: please call patient to schedule new patient appt for next week. Thanks! documented in this encounter Plan of Treatment Upcoming Encounters Date Type Specialty Care Team Description 11/09/2022 Office Visit Hematology Oncology Héctor Rodriguez MD [address] [facility] [place] [address] 11/09/2022 Office Visit Urology Sahil Funk MD [address] [place] [address] [place] [address] 11/17/2022 Office Visit Family Medicine Hayes Maurer, DO [address] [place] [address] 12/13/2022 Office Visit Cardiology Emery Kwan, DO [address] [place] [address] 01/17/2023 Hospital Encounter Endoscopy Michael Aeljandro MD [address] [place] [address] 01/17/2023 Surgery Endoscopy Michael Alejandro MD [address] [place] [address] COLONOSCOPY FLEXIBLE PROXIMAL DIAGNOSTIC 03/09/2023 Office Visit Family [facility] Hayes Maurer, DO [address] [place] [address] Scheduled Procedures Name Priority Associated Diagnoses Date/Ti me COLONOSCOPY FLEXIBLE PROXIMAL DIAGNOSTIC Recall History of colon polyps Special screening for malignant neoplasms, colon 01/17/2023 2:30 PM EST Health Maintenance Due Date Last Done Comments DISCUSS TOBACCO CESSATION (REFER TO SMARTSET #5585) 1950 Hepatitis B (2 of 3 - [...] D LEVEL ONCE IN A LIFETIME-USE SMARTSET# [id number] Completed 08/02/2011, 04/24/2009, 06/25/2008, Additional history exists Mammogram Discontinued 12/18/2014, 11/05, 12/22/2006, Additional history exists Pneumococcal Vaccine: 65+ Years Completed 08/10/2017, 06/14/2016 Alpha-1 Antitrypsin Completed 03/15/2022 LUNG CANCER SCREENING - USE SMARTSET [id number] Completed 10/29/2022, 06/23/2022, 10/15/2019, Additional history exists [...] patient or by statute hierarchy) Care Teams Mixing Supervisor Relationship Specialty Start Date End Date Hayes Maurer DO [address] [place] [address] PCP - General Family Medicine 04/04/19 documented as of this encounter
--- OUTSIDE RECORDS SUMMARY | 2023-02-27 12:58 | External Medical Summary | Summary of Care ---
Author Name Unknown Organization [facility] Address [address] [place] [address] Phone [phone] Care Team Providers Care Project Management Specialist Name Role Phone Hayes Maurer Primary Care Provider Reason for Visit * Reason Comments case management Encounter Details Date Type Department Care Team Description 11/17/2022 Technical Support RepresentativeSwitchboard Installer [facility] [address] [facility] [place] [address] India Wilks, RN Medical home patient encounter* Allergies Active Allergy Reactions Severity Noted Date Comments Morphine 03/26/1997 Shock, dyspnea Other reaction(s): shock, dspnea Neomycin 04/07/2013 documented as of this encounter (statuses as of 11/17/2022) Medications Medication Sig Dispensed Refills Start Date End Date Status Oxybutynin Chloride ER 5 MG Oral Tablet Extended Release 24 Hour (Ditropan XL) Take 1 Tablet by mouth in the morning. 30 Tablet 6 09/07/2022 Active Metoprolol Succinate ER 25 MG Oral Tablet Extended Release 24 Hour (toPROL XL)Indications:SVT (supraventricular tachycardia) ([facility]) Take 0.5 Tablets by mouth in the morning. 45 Tablet 3 10/06/2022 Active Pantoprazole Sodium 40 MG Oral Tablet Delayed Release (Protonix)Indication s:Esophagitis Take 1 Tablet by mouth in the morning. 90 Tablet 3 10/06/2022 Active Ipratropium-Albutero l 0.5-2.5 (3) MG/3ML Inhalation Solution (Duoneb)Indications: COPD, group B, by GOLD 2017 classification ([facility]) Inhale 3 mL via nebulizer every 6 [...] as of this encounter (statuses as of 11/17/2022) Active Problems Problem Noted Date Medical home [...] as of this encounter (statuses as of 11/17/2022) Resolved Problems Problem Noted Date Resolved Date [...] as of this encounter (statuses as of 11/17/2022) Immunizations Name Administration Dates Next Due COVID-19 mRNA, LNP-s, No Pre serve, 2-Dose Series ([employer] 03/04/2021,07/22/2020,07/01/2020 Pneumococcal Conjugate Vacc, 13 Valent [...] Progress Notes * India Wilks RN - 11/17/2022 3:44 PM EDT Follow-up Post Discharge Attempted Phone Call First Attempt Call Outcome Left Voicemail/Message Plan To attempt another outreach documented in this encounter Plan of Treatment Upcoming Encounters Date Type Specialty Care Team Description 11/21/2022 Imaging Radiology 11/25/2022 Office Visit Hematology Oncology Héctor Rodriguez MD [address] [place] [address] 12/13/2022 Office Visit Cardiology Emery Kwan DO [address] [place] [address] 01/17/2023 Hospital Encounter Endoscopy Michael Alejandro MD [address] [place] [address] 01/17/2023 Surgery Endoscopy Michael Alejandro MD [address] [place] [address] COLONOSCOPY FLEXIBLE PROXIMAL DIAGNOSTIC 02/08/2023 Imaging Radiology 03/07/2023 Office Visit Urology Sahil Funk MD [address] [place] [address] [place] [address] 03/09/2023 Office Visit Family Medicine Hayes Maurer DO [address] [place] [address] Scheduled Procedures Name Priority Associated Diagnoses Date/Ti me COLONOSCOPY FLEXIBLE PROXIMAL DIAGNOSTIC Recall History of colon polyps Special screening for malignant neoplasms, colon 01/17/2023 2:30 PM EST Health Maintenance Due Date Last Done Comments DISCUSS TOBACCO CESSATION (REFER TO SMARTSET #1301) 1950 Hepatitis B (2 of 3 - [...] D LEVEL ONCE IN A LIFETIME-USE SMARTSET# [id number] Completed 08/02/2011, 04/24/2009, 06/25/2008, Additional history exists Mammogram Discontinued 12/18/2014, 11/05, 12/22/2006, Additional history exists Pneumococcal Vaccine: 65+ Years Completed 08/10/2017, 06/14/2016 Alpha-1 Antitrypsin Completed 03/15/2022 LUNG CANCER SCREENING - USE SMARTSET [id number] Completed 10/29/2022, 06/23/2022, 10/15/2019, Additional history exists [...] Healthcare Agent Relationshi p Communication Michael Cifuentes [place] Spouse Health Care Repr esentative (appointed verbally by patient or by statute hierarchy) Care Teams Project Management Specialist Relationship Specialty Start Date End Date Hayes Maurer DO [address] [place] [address] PCP - General Family Medicine 04/04/19 documented as of this encounter
--- OUTSIDE RECORDS SUMMARY | 2023-02-27 12:58 | External Medical Summary | Summary of Care ---
Author Name Unknown Organization [facility] Address [address] [place] [address] Phone [phone] Care Team Providers Care Truck Driver Rubbish Collector Name Role Phone Hayes Maurer DO Primary Care Provider Reason for Referral * Evaluate & Treat - Unlimited Visits (Within 30 days (routine)) - Authorized Specialty Diagnoses / Procedures Referred By Johanny garcia Referred To Contact Hematology/Oncology / Hematology Oncology Diagnoses Malignancy (HCC) Hayes Maurer DO [address] [place] [address] Referral ID Status Reason Start Date Expiration Date Visits Requested Visits Authorized [id number] Authorized Specialty Services Required 11/03/2022 999 999 Question Answer Referral Priority Within 30 days (routine) Reason for Referral Other - Please Comment - enlarged lymph nodes Reason for Visit * Reason Onset Date Comments Referral 11/03/2022 Encounter Details Date Type Department Care Team Description 11/03/2022 Telephone Family Practice [facility] [address] [place] [address] Hayes Maurer DO [address] [place] [address] Referral Allergies Active Allergy Reactions Severity Noted Date Comments Morphine 03/26/1997 Shock, dyspnea Other reaction(s): shock, dspnea Neomycin 04/07/2013 documented as of this encounter (statuses as of 11/03/2022) Medications Medication Sig Dispensed Refills Start Date [...] OPD, group B, by GOLD 2017 classification ([facility]) Inhale 3 mL via nebulizer every [...] as of this encounter (statuses as of 11/03/2022) Active Problems Problem Noted Date Medical home [...] as of this encounter (statuses as of 11/03/2022) Resolved Problems Problem Noted Date Resolved Date [...] as of this encounter (statuses as of 11/03/2022) Immunizations Name Administration Dates Next Due COVID-19 mRNA, LNP-s, No Pre serve, 2-Dose Series ([email or web address]) 03/04/2021,07/22/2020,07/01/2020 Hepatitis B Vaccine 03/26/1997 Pneumococcal Conjugate [...] encounter Miscellaneous Notes * Telephone Encounter - Hayes Maurer DO - 11/03/2022 12:34 PM EDT Signed Thank you * Telephone Encounter - JADYN Gastelum - 11/03/2022 8:17 AM EDT Has the patient been seen for this problem? (Y/N)?: yes If No, an appt needs to be scheduled before a referral will be placed (exception: proceed with referral request if referral request is for a yearly routine appointment with speciality) Patient Name: Kaci Funk Patient Primary care provider: Hayes Maurer, DO Does this need to be an insurance referral (Y/N)?: no If Yes, does the insurance referral need to be placed into the [employer] system? Name of preferred specialist: Dr. Kristine Almaguer Type of specialist: oncology Location of specialist: [facility] Phone #: Specialist's Fax #: - Reason for visit: enlarged lymph nodes Date of visit: - Pt is currently at [facility] [phone] room 213, please call pt whenreferral placed documented in this encounter Plan of Treatment Upcoming Encounters Date Type Specialty Care Team Description 11/09/2022 Office Visit Urology Sahil Funk MD [address] [place] [address] [place] [address] 11/17/2022 Office Visit Family Medicine Hayes Maurer DO [address] [place] [address] 12/13/2022 Office Visit Cardiology Emery Kwan DO [address] [place] [address] 01/17/2023 Hospital Encounter Endoscopy Michael Alejandro MD [address] [place] [address] 01/17/2023 Surgery Endoscopy Michael Alejandro MD [address] [place] [address] COLONOSCOPY FLEXIBLE PROXIMAL DIAGNOSTIC 03/09/2023 Office Visit Family Medicine Erasto Hayes ShermargotDO [address] [place] [address] Scheduled Procedures Name Priority Associated Diagnoses Date/Ti me COLONOSCOPY FLEXIBLE PROXIMAL DIAGNOSTIC Recall History of colon polyps Special screening for malignant neoplasms, colon 01/17/2023 2:30 PM EST Scheduled Referrals Name Type Priority Associated Diagnoses Orde r Schedule HEMATOLOGY/ONCOLOGY REFERRAL OP Referral Within 30 days (routine) Malignancy (HCC) Ordered: 11/03/2022 Health Maintenance Due Date Last Done Comments [...] D LEVEL ONCE IN A LIFETIME-USE SMARTSET# [id number] Completed 08/02/2011, 04/24/2009, 06/25/2008, Additional history exists Mammogram Discontinued 12/18/2014, 11/05, 12/22/2006, Additional history exists Pneumococcal Vaccine: 65+ Years Completed 08/10/2017, 06/14/2016 Alpha-1 Antitrypsin Completed 03/15/2022 LUNG CANCER SCREENING - USE SMARTSET [id number] Completed 10/29/2022, 06/23/2022, 10/15/2019, Additional history exists [...] Other malignant neoplasm without specification of site History of colon polyps Personal history of colonic polyps Special screening for malignant neoplasms, colon documented in this encounter Additional Health Concerns Infection Onset Date Last Indicated Resolved Time C. difficile 10/12/2022 10/12/2022 documented as of this encounter Advance Directives Healthcare Agents on File Name Relationship Healthcare Agent Relationshi p Communication Michael Cifuentes [place] Spouse Health Care Repr esentative (appointed verbally by patient or by statute hierarchy) Care Teams Truck Driver Rubbish Collector Relationship Specialty Start Date End Date Hayes Maurer DO [address] [place] [address] PCP - General Family Medicine 04/04/19 documented as of this encounter
--- OUTSIDE RECORDS SUMMARY | 2023-02-27 12:58 | External Medical Summary | Summary of Care ---
Author Name Unknown Organization [facility] Address [address] [place] [address] Phone [phone] Care Team Providers Care It Business Process Architect Name Role Phone Joanie Maurer DO Primary Care Provider Reason for Referral * Precert (Within 10 days (routine)) - Authorized Specialty Diagnoses / Procedures Referred By Contlev t Referred To Contact Radiology Diagnoses Hydronephrosis, right Procedures NM KIDNEY IMAGING WITH VASCULAR FLOW AND FUNCTION WITH PHARM Sahil Funk MD [address] [place] [address] [place] [address] Referral ID Status Reason Start Date Expiration Date V isits Requested Visits Authorized [id number] Authorized 02/08/2023 999 999 Reason for Visit * Reason Comments Follow Up Encounter Details Date Type Department Care Team Description 11/09/2022 Office Visit Urology, [address] [place] [address] Sahil Funk MD [address] [employer] [place] [address] [place] [address] Hydronephrosis, right*; Urge incontinence Allergies Active Allergy Reactions Severity Noted Date Comments Morphine 03/26/1997 Shock, dyspnea Other reaction(s): shock, dspnea Neomycin 04/07/2013 documented as of this encounter (statuses as of 11/09/2022) Medications Medication Sig Dispensed Refills Start Date End Date Status Oxybutynin Chloride ER 5 MG Oral Tablet Extended Release 24 Hour (Ditropan XL) Take 1 Tablet by mouth in the morning. 30 Tablet 6 09/07/2022 Active Levothyroxine Sodium 88 MCG Oral Tablet (Levoxyl)Indications :Postoperative hypothyroidism Take 1 Tablet by mouth in [...] B, by GOLD 2017 classification ([facility]) Inhale 3 mL via nebulizer every 6 [...] and 1 Capsule before bedtime. 0 Active documented as of this encounter (statuses as of 11/09/2022) Active Problems Problem Noted Date Medical home [...] as of this encounter (statuses as of 11/09/2022) Resolved Problems Problem Noted Date Resolved Date [...] as of this encounter (statuses as of 11/09/2022) Immunizations Name Administration Dates Next Due COVID-19 [...] as of this encounter Progress Notes * Sahil Funk MD - 11/09/2022 3:45 PM EDT Images from the original note were not included. [id number] PCP: JOANIE MAURER [address] [place] [address] [place] [address] [phone] Kaci Funk is a 72 year old female, who presents for short-term follow-up of her history of hydronephrosis. Patient's past notes are reviewed. Stable creatinine value is appreciated. Recent CT from October of 2022 demonstrating persistent right-sided hydronephrosis at the level of the ureteropelvic junction is noted. Since the patient's last visit a diagnosis of lymphatic malignancy, small cell malignancy is noted. Report and biopsy as appreciated from medical oncology as noted below. She iscurrently in rehab - still ongoing due to weakness. Patient notes some decrease of her bowel incontinence. She notes continued irritative voiding symptoms. She notes some weight gain of late. Imagingstudies are personally reviewed with patient. Lasix renal scan is noted. 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 The tumor has two components. The majority represents a small cell carcinoma. The minority represents a non-small cell carcinoma without any definitive adenocarcinoma or squamous cell carcinoma differentiation. Bowel Incontinence: Patient is being seen for incontinence. Patient initially reports urinary incontinence, but on further inquiry notes only bowel incontinence. Problem has been present for a few months. Severity is moderate. Problem is getting worse. Initially reported incontinence is urge incontinence. They are using 3-4 pads a day, mostly for thebowels. They have used no medications for incontinence. Lasix renal scan September 2022: IMPRESSION 1. Delayed clearance of radiotracer from the right renal collecting system is most consistent with high-grade obstruction with decreased function. Collecting system pooling secondary to anti-dependent position of UPJ is less likely based upon the right kidney orientation seen on CT. 2. Split function is 58.2% left and 41.2% right. Creatinine Results: Lab Results Component Value Date/Time CREATININE - [facility] 0.5 11/03/2022 05:45 AM CREATININE - [facility] 0.7 07/28/2022 02:27 PM CREATININE - [facility] 0.8 07/15/2022 03:18 PM CREATININE - [facility] 0.8 10/01/2019 04:08 PM CREATININE - [facility] 0.8 09/18/2018 04:46 PM CREATININE - [facility] 0.7 11/30/2017 05:06 PM CREATININE, RANDOM URINE - [facility] 115 03/15/2022 04:30 PM CREATININE, RANDOM URINE - [facility] 152 10/01/2019 04:17 PM CREATININE, RANDOM URINE - [facility] 148 06/23/1999 12:31 PM CREATININE-[facility] 0.64 07/05/2022 12:00 AM CREATININE-[facility] 0.96 08/04/2017 12:00 AM Current Outpatient Medications Medication Sig Dispense Refill Oxybutynin Chloride ER 5 MG Oral Tablet Extended Release 24 Hour (Ditropan XL) Take 1 Tablet by mouth in the morning. 30 Tablet 6 Levothyroxine Sodium 88 MCG Oral Tablet (Levoxyl) Take 1 Tablet by mouth in the morning. (at least 30 min prior to breakfast or other meds). 90 Tablet 3 Metoprolol Succinate ER 25 MG Oral Tablet Extended Release 24 Hour (toPROL XL) Take 0.5 Tablets by mouth in the morning. 45 Tablet 3 Pantoprazole Sodium 40 MG Oral Tablet Delayed Release (Protonix) Take 1 Tablet by mouth in the morning. 90 Tablet 3 Ipratropium-Albuterol 0.5-2.5 (3) MG/3ML Inhalation Solution (Duoneb) Inhale 3 mL via nebulizer every 6 hours as needed for Cough, Shortness of Breath or Wheezing. 360 mL 3 Vancomycin HCl 125 MG Oral Capsule (Vancocin) Taper: 125mg by mouth four times daily x 2 weeks, 125mg by mouth twice daily x 1 week, 125mg by mouth daily x 1 week, 125mg by mouth every other day x 2 weeks. 84 Capsule 0 Furosemide 20 MG Oral Tablet (Lasix) Take 1 Tablet by mouth in the morning and 1 Tablet before bedtime. Potassium Chloride Alba ER 20 MEQ Oral Tablet Extended Release Take 1 Tablet by mouth in the morning. Famotidine 40 MG Oral Tablet (Pepcid) Take 1 Tablet by mouth in the morning. D5W 5% SOLN 50 mL with hEParin 1000 UNIT/ML SOLN 5,000 Units Infuse intravenously continuous. levoFLOXacin 750 MG Oral Tablet (Levaquin) Take 1 Tablet by mouth in the morning. Ondansetron 4 MG Oral Film (Zuplenz) Take by mouth. Docusate Sodium 100 MG Oral Capsule (Colace) Take 1 Capsule by mouth in the morning and 1 Capsule before bedtime. Magnesium Hydroxide 400 MG/5ML Oral Suspension (Milk of Magnesia) Take by mouth daily as needed forConstipation. Bisacodyl 10 MG Rectal Suppository (Dulcolax) Administer 1 Suppository into the rectum in the morning. Fleet Enema Rectal Enema Administer into the rectum. Sennosides 8.6 MG Oral Tablet (Senokot) Take 1 Tablet by mouth in the morning and 1 Tablet before bedtime. Polyethylene Glycol 3350 17 GM Oral Packet (MiraLax) Take 1 Packet by mouth in the morning. Acetaminophen 500 MG Oral Packet Take by mouth. Anoro Ellipta 62.5-25 MCG/ACT Inhalation Aerosol Powder Breath Activated (umeclidinium-vilanterol) Inhale 1 Puff by mouth. Saccharomyces boulardii 250 MG Oral Capsule (Florastor) Take 1 Capsule by mouth in the morning and 1 Capsule before bedtime. No current facility-administered medications for this visit. Review of patient's allergies indicates: Allergen Reactions Morphine Shock, dyspnea Other reaction(s): shock, dspnea Neomycin Social History: Social History Tobacco Use Smoking status: Some Days Packs/day: 0.55 Years: 37.00 Pack years: 20.35 Types: Cigarettes Smokeless tobacco: Never Tobacco comments: 1/2 per day-started age 35 Substance Use Topics Alcohol use: No Vaping/E-Cigarette Use Vaping/E-Cigarette Use Never User Vaping/E-Cigarette Substances Vaping/E-Cigarette Devices Family History 11 items Mother Endocrine Disorder Cancer crohn's [OTHER] Father Hypertension Diabetes Sister Sister Sister Daughter Sister No Past Hx Sister No Past Hx Aunt (Unspecified) Cancer Sister Rheumatoid arthritis [OTHER] Other crohn's [OTHER] Past Surgical History: Procedure Laterality Date COLONOSCOPY W/ BIOPSY (RECTUM) 05/22/2007 5 2-3 mm polyps- hyperplastic polyps--repeat 3 years COLONOSCOPY, DIAGNOSTIC (RECTUM) 12/26/2017 diverticulosis, repeat 5 yrs/COLONOSCOPY FLEXIBLE PROXIMAL DIAGNOSTIC performed by Deisi Dent DO at ENDOSCOPY [facility] EGD, FLEXIBLE, DIAGNOSTIC 07/19/2022 abdoul funk grade III reflux esophagitis/erthematous mucosa stomach/biopsies show mild irritationof stomach/ESOPHAGOGASTRODUODENOSCOPY (EGD), FLEXIBLE, TRANSORAL, DIAGNOSTIC performed by Jessica Matrinez DO at ENDOSCOPY [facility] EGD, FLEXIBLE, W/BIOPSY 04/24/2007 chronic gastric inflammation LAPAROSCOPY OF PELVIS MAMMOGRAM - BILATERAL 08/25/1999 Negative assessment. REMOVAL OF THYROID GLAND Thyroidectomy SPINAL FUSION, LUMBAR, COMBINED lumbar x 3 US - BREAST(S) 08/25/1999 Extremely dense breasts, no lesion on u/s. 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 Constitutional: General: She is not in acute distress. Appearance: She is not toxic-appearing. Comments: In wheelchair, thin HENT: Head: Normocephalic. Right Ear: External ear normal. Left Ear: External ear normal. Nose: Nose normal. Mouth/Throat: Mouth: Mucous membranes are moist. Eyes: Extraocular Movements: Extraocular movements intact. Pulmonary: Effort: Pulmonary effort is normal. No respiratory distress. Abdominal: General: There is distension (lower abdominal). Palpations: Abdomen is soft. Skin: Coloration: Skin is not pale. Neurological: Motor: Weakness present. Gait: Gait abnormal. Psychiatric: Behavior: Behavior normal. Thought Content: Thought content normal. 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 Findings reviewed with patient. Renal function remains stable globally. Patient seems to be asymptomatic from a UPJ perspective. Ongoing staging evaluation for her malignancy of unclear origin is noted. If renal function seems to be deteriorating, we can consider stent placement more acutely. Otherwise, will try to avoid intervention if at all possible. Will plan on repeat Lasix renal scan in 3 months time to check for changes in drainage/ differential function. Will see back at that time, contact us sooner with any changes in urologic health. Patient vocalizes good understanding of the treatment plan. Above content is personally reviewed. Sahil Funk MD 12:42 PM 11/09/2022 documented in this encounter Nursing Notes * Sharee Tran LPN - 11/09/2022 3:24 PM EDT Pt presents in office for 2 month ret for lasix scan results No urological symptoms documented in this encounter Plan of Treatment Upcoming Encounters Date Type Specialty Care Team Description 11/17/2022 Office Visit Family Medicine Joanie Maurer, [address] [place] [address] 11/21/2022 Imaging Radiology 11/25/2022 Office Visit [facility] [address] [facility] [address] 12/13/2022 Office Visit Cardiology Emery Kwan, DO [address] [place] [address] 01/17/2023 Hospital Encounter Endoscopy Michael Alejandro MD [address] [place] [address] 01/17/2023 Surgery Endoscopy Micahel Alejandro MD [address] [place] [address] COLONOSCOPY FLEXIBLE PROXIMAL DIAGNOSTIC 02/08/2023 Imaging Radiology 03/07/2023 Office Visit Urology Sahil Funk MD [address] [place] [address] [place] [address] 03/09/2023 Office Visit Family Medicine Joanie Maurer DO [address] [place] [address] Scheduled Orders Name Type Priority Associated Diagnoses Orde r Schedule NM KIDNEY IMAGING WITH VASCULAR FLOW AND FUNCTION WITH PHARM Medical Imaging Routine Hydronephrosis, right Expected: 02/08/2023, Expires: 12/10/2023 Scheduled Procedures Name Priority Associated Diagnoses Date/Ti me COLONOSCOPY FLEXIBLE PROXIMAL DIAGNOSTIC Recall History of colon polyps Special screening for malignant neoplasms, colon 01/17/2023 2:30 PM EST Health Maintenance Due Date Last Done Comments DISCUSS TOBACCO CESSATION (REFER TO SMARTSET #7402) 1950 Hepatitis B (2 of 3 - [...] D LEVEL ONCE IN A LIFETIME-USE SMARTSET# [id number] Completed 08/02/2011, 04/24/2009, 06/25/2008, Additional history exists Mammogram Discontinued 12/18/2014, 11/05, 12/22/2006, Additional history exists Pneumococcal Vaccine: 65+ Years Completed 08/10/2017, 06/14/2016 Alpha-1 Antitrypsin Completed 03/15/2022 LUNG CANCER SCREENING - USE SMARTSET [id number] Completed 10/29/2022, 06/23/2022, 10/15/2019, Additional history exists GARDASIL-HPV IMMUNIZATION SERIES Aged Out No longer eligible based on patient's age to complete this topic MENINGOCOCCAL (MENACTRA/MENVEO) Aged Out No longer eligible based on patient's age to complete this topic documented as of this encounter Medical Devices Not on filedocumented as of this encounter Visit Diagnoses Diagnosis Hydronephrosis, right- Primary Hydronephrosis Urge incontinence History of colon polyps Personal history of [...] or by statute hierarchy) Care Teams It Business Process Architect Relationship Specialty Start Date End Date Joanie Maurer DO [address] [place] [address] PCP - General Family Medicine 04/04/19 documented as of this encounter
--- OUTSIDE RECORDS SUMMARY | 2023-02-27 12:58 | External Medical Summary | Summary of Care ---
Author Name Unknown Organization [facility] Address [address] [place] [address] Phone [phone] Care Team Providers Care French Polisher Name Role Phone Hayes Maurer DO Primary Care Provider Reason for Visit * Reason Onset Date Comments Med Request 11/16/2022 Encounter Details Date Type Department Care Team Description 11/16/2022 Telephone Family Practice [facility] [address] [place] [address] Hayes Maurer DO [address] [place] [address] Med Request Allergies Active Allergy Reactions Severity [...] B, by GOLD 2017 classification ([facility]) Inhale 3 mL via nebulizer [...] other meds). 90 Tablet 3 3 Active Levothyroxine Sodium 88 MCG Oral Tablet (Levoxyl)Indicatio ns:Postoperative hypothyroidism Take 1 Tablet by mouth in the morning. (at least 30 min prior to breakfast or other meds). 90 Tablet 3 3 023 Discontinued documented as of this encounter [...] Telephone Encounter - Hayes Maurer DO - 11/17/2022 7:46 AM EDT Refilled medication * Telephone Encounter - Kalani Espinoza LPN - 11/16/2022 3:39 PM EDT We have 88mcg on her med list. Ok to change to 100mcg? * Telephone Encounter - Phuong Hung CPhT - 11/16/2022 3:18 PM EDT Pt is calling requesting refills on Levothyroxine 100 MCG. Pt stating the dose was changed on 10/20 by Jennifer Hurt. Pt stating she is unsure of who that Dr is or where they are from. Pt stating she takes one a day. Pt would like the rx to be sent to [id number] [address] [facility]. Please advise Thank you, Jennifer Hung [employer] [facility] ([facility]) 11/16/2022,3:23 PM documented in this encounter Plan of Treatment Upcoming Encounters Date Type Specialty Care Team Description 11/21/2022 Imaging Radiology 11/25/2022 Office Visit Hematology Oncology Héctor Rodriguez MD [address] [place] [address] 12/13/2022 Office Visit Cardiology Emery Kwan, [address] [place] [address] 01/17/2023 Hospital Encounter Endoscopy Michael Alejandro MD [address] [place] [address] 01/17/2023 Surgery Endoscopy Michael Alejandro MD [address] [place] [address] COLONOSCOPY FLEXIBLE PROXIMAL DIAGNOSTIC 02/08/2023 Imaging Radiology 03/07/2023 Office Visit Urology Sahil Funk MD [address] [place] [address] [place] [id number] 03/09/2023 Office Visit Family Medicine Hayes Maurer DO [address] [place] [address] Scheduled Procedures Name Priority Associated Diagnoses Date/Ti me COLONOSCOPY FLEXIBLE PROXIMAL DIAGNOSTIC Recall History of colon polyps Special screening for malignant neoplasms, colon 01/17/2023 2:30 PM EST Health Maintenance Due Date Last Done Comments DISCUSS TOBACCO CESSATION (REFER TO SMARTSET #2070) 1950 Hepatitis B (2 of 3 - [...] D LEVEL ONCE IN A LIFETIME-USE SMARTSET# [id number] Completed 08/02/2011, 04/24/2009, 06/25/2008, Additional history exists Mammogram Discontinued 12/18/2014, 11/05, 12/22/2006, Additional history exists Pneumococcal Vaccine: 65+ Years Completed 08/10/2017, 06/14/2016 Alpha-1 Antitrypsin Completed 03/15/2022 LUNG CANCER SCREENING - USE SMARTSET 26000 Completed 10/29/2022, 06/23/2022, 10/15/2019, Additional history exists [...] patient or by statute hierarchy) Care Teams French Polisher Relationship Specialty Start Date End Date Hayes Maurer DO [address] [place] [address] PCP - General Family Medicine 04/04/19 documented as of this encounter
--- OUTSIDE RECORDS SUMMARY | 2023-02-27 12:58 | External Medical Summary | Summary of Care ---
Author Name Unknown Organization [facility] Address [address] [place] [address] Phone [phone] Care Team Providers Care Heel Nail Rasper Name Role Phone Hayes Maurer DO Primary Care Provider Reason for Referral * Evaluate & Treat - Unlimited Visits (Within 30 days (routine)) - Authorized Specialty Diagnoses / Procedures Referred By Johanny garcia Referred To Contact Hematology/Oncology / Hematology Oncology Diagnoses Malignancy (HCC) Hayes Maurer DO [address] [place] [address] Referral ID Status Reason Start Date Expiration Date Visits Requested Visits Authorized [id number] Authorized Specialty Services Required 11/03/2022 999 999 Question Answer Referral Priority Within 30 days (routine) Reason for Referral Other - Please Comment - enlarged lymph nodes Reason for Visit * Reason Onset Date Comments Referral 11/03/2022 Encounter Details Date Type Department Care Team Description 11/03/2022 Telephone Family Practice [facility] [address] [place] [address] Hayes Maurer DO [address] [place] [address] Referral Allergies Active Allergy Reactions Severity Noted [...] OPD, group B, by GOLD 2017 classification ([facility]) Inhale 3 mL via nebulizer [...] mRNA, LNP-s, No Pre serve, 2-Dose Series ([employer]) 03/04/2021,07/22/2020,07/01/2020 Hepatitis B Vaccine 03/26/1997 Pneumococcal Conjugate [...] referral need to be placed into the [facility] system? Name of preferred specialist: Dr. Kristine Almaguer Type of specialist: oncology Location of specialist: [facility] Specialist's Phone #: Specialist's Fax #: - Reason for visit: enlarged lymph nodes Date of visit: - Pt is currently at [facility] [phone] room 213, please call pt whenreferral placed documented in this encounter Plan of Treatment Upcoming Encounters Date Type Specialty Care Team Description 11/09/2022 Office Visit Urology Sahil Funk MD [address] [place] [address] [place] [address] 11/17/2022 Office Visit Family Medicine Hayes Maurer DO [address] [place] [address] 12/13/2022 Office Visit Cardiology Emery Kwan DO [address] [place] [address] 01/17/2023 Hospital Encounter Endoscopy Michael Alejandro MD [address] [place] [address] 01/17/2023 Surgery Endoscopy Michael Alejandro MD [address] [place] [address] COLONOSCOPY FLEXIBLE PROXIMAL DIAGNOSTIC 03/09/2023 Office Visit Family Medicine Erasto Hayes ShermargotDO [address] [place] [address] Scheduled Procedures Name Priority Associated Diagnoses Date/Ti [...] D LEVEL ONCE IN A LIFETIME-USE SMARTSET# [id number] Completed 08/02/2011, 04/24/2009, 06/25/2008, Additional history exists Mammogram Discontinued 12/18/2014, 11/05, 12/22/2006, Additional history exists Pneumococcal Vaccine: 65+ Years Completed 08/10/2017, 06/14/2016 Alpha-1 Antitrypsin Completed 03/15/2022 LUNG CANCER SCREENING - USE SMARTSET 06253 Completed 10/29/2022, 06/23/2022, 10/15/2019, Additional history exists [...] patient or by statute hierarchy) Care Teams Heel Nail Rasper Relationship Specialty Start Date End Date Hayes Maurer DO [address] [place] [address] PCP - General Family Medicine 04/04/19 documented as of this encounter
--- OUTSIDE RECORDS SUMMARY | 2023-02-27 12:58 | External Medical Summary | Summary of Care ---
Author Name Unknown Organization [facility] Address [address] [facility] [place] [address] Phone [phone] Care Team Providers Care Torpedo Specialist Name Role Phone Hayes Maurer DO Primary Care Provider Encounter Details Date Type Department Care Team Description 10/12/2022 Result Scan Unspecified Department <No scans attached> [...] Active Levothyroxine Sodium 88 MCG Oral Tablet (Levoxyl)Indications:P ostoperative hypothyroidism Take 1 Tablet by mouth in [...] PD, group B, by GOLD 2017 classification ([facility] [...] mRNA, LNP-s, No Pre serve, 2-Dose Series ([email or web address]) 03/04/2021,07/22/2020,07/01/2020 Pneumococcal Conjugate Vacc, 13 Valent (Prevnar) [...] Visit Hematology Oncology [facility] [address] [facility] [address] 11/09/2022 Office Visit Urology Sahil Funk MD [address] [facility] [address] [place] [address] 11/17/2022 Office Visit Family Hayes Matias, [address] [place] [address] 12/13/2022 Office Visit Cardiology Emery Kwan DO [address] [place] [address] 01/17/2023 Hospital Encounter Endoscopy Michael Alejandro MD [address] [place] [address] 01/17/2023 Surgery Endoscopy Michael Alejandro MD [address] [place] [address] COLONOSCOPY FLEXIBLE PROXIMAL DIAGNOSTIC 03/09/2023 Office Visit Family Hayes Matias, [address] [place] [address] Scheduled Procedures Name Priority Associated Diagnoses Date/Ti me COLONOSCOPY FLEXIBLE PROXIMAL DIAGNOSTIC Recall History of colon polyps Special screening for malignant neoplasms, colon 01/17/2023 2:30 PM EST Health Maintenance Due Date Last Done Comments DISCUSS TOBACCO CESSATION (REFER TO SMARTSET #6398) 1950 Hepatitis B (2 of 3 - [...] D LEVEL ONCE IN A LIFETIME-USE SMARTSET# [id number] Completed 08/02/2011, 04/24/2009, 06/25/2008, Additional history exists Mammogram Discontinued 12/18/2014, 11/05, 12/22/2006, Additional history exists Pneumococcal Vaccine: 65+ Years Completed 08/10/2017, 06/14/2016 Alpha-1 Antitrypsin Completed 03/15/2022 LUNG CANCER SCREENING - USE SMARTSET 99581 Completed 10/29/2022, 06/23/2022, 10/15/2019, Additional history exists GARDASIL-HPV IMMUNIZATION SERIES Aged Out No longer eligible based on patient's age to complete this topic MENINGOCOCCAL (MENACTRA/MENVEO) Aged Out No longer eligible based on patient's age to complete this topic documented as of this encounter Medical Devices Not on filedocumented as of this encounter Procedures Procedure Name Priority Date/Time Associated Diagnosis Comments RADIOLOGY SCANNED RESULT 10/12/2022 documented in this encounter Results * RADIOLOGY SCANNED RESULT (10/12/2022) 10/12/2022 No Physician Data Unknown DIAGNOSTIC RAD IOLOGY SERVICES documented in this encounter Additional Health Concerns Infection Onset Date Last Indicated Resolved Time Gastrointestinal Rule-Out 10/12/2022 10/12/2022 7:16 PM EDT C. difficile Rule-Out 10/12/2022 10/12/20222022 2:15 PM EDT C. difficile 10/12/2022 10/12/2022 documented as of this encounter Advance Directives Healthcare Agents on File Name Relationship Healthcare Agent Relationshi p Communication Michael Cifuentes [place] Spouse Health Care Repr esentative (appointed verbally by patient or by statute hierarchy) Care Teams Torpedo Specialist Relationship Specialty Start Date End Date Hayes Maurer DO [address] [place] [address] PCP - General Family Medicine 04/04/19 documented as of this encounter
--- OUTSIDE RECORDS SUMMARY | 2023-02-27 12:58 | External Medical Summary | Summary of Care ---
Author Name Unknown Organization [facility] Address [address] [place] [address] Phone [phone] Care Team Providers Care Assistant Guest Services Manager Name Role Phone Hayes Maurer Primary Care Provider Reason for Visit * Reason Onset Date Comments Appointment 11/09/2022 Encounter Details Date Type Department Care Team Description 11/09/2022 Telephone Hematology/Oncology [facility] [address] [place] [address] Héctor Rodriguez MD [address] [place] [address] Appointment Allergies Active Allergy Reactions Severity Noted [...] mRNA, LNP-s, No Pre serve, 2-Dose Series ([employer]) 03/04/2021,07/22/2020,07/01/2020 Pneumococcal Conjugate Vacc, 13 Valent (Prevnar) [...] Miscellaneous Notes * Telephone Encounter - JADYN Bah - 11/09/2022 10:49 AM EDT Patient is scheduled for a PET/CT SCAN @ FOR 11/21/22 @ 8:45am. Check at [facility] and sooner appts.Patient was given prep instructions. documented in this encounter Plan of Treatment Upcoming Encounters Date Type Specialty Care Team Description 11/09/2022 Office Visit Urology Sahil Funk MD [address] [place] [address] [place] [address] 11/17/2022 Office Visit Family Medicine Hayes Maurer DO [address] [place] [address] 11/21/2022 Imaging Radiology 11/25/2022 Office Visit Hematology Oncology [facility] [address] [facility] [address] 12/13/2022 Office Visit Cardiology Emery Kwan DO [address] [place] [address] 01/17/2023 Hospital Encounter Endoscopy Michael Alejandro MD [address] [place] [address] 01/17/2023 Surgery Endoscopy Michael Alejandro MD [address] [place] [address] COLONOSCOPY FLEXIBLE PROXIMAL DIAGNOSTIC 03/09/2023 Office Visit Family Medicine Hayes Maurer DO [address] [place] [address] Scheduled Procedures Name Priority Associated Diagnoses Date/Ti [...] D LEVEL ONCE IN A LIFETIME-USE SMARTSET# [id number] Completed 08/02/2011, 04/24/2009, 06/25/2008, Additional history exists Mammogram Discontinued 12/18/2014, 11/05, 12/22/2006, Additional history exists Pneumococcal Vaccine: 65+ Years Completed 08/10/2017, 06/14/2016 Alpha-1 Antitrypsin Completed 03/15/2022 LUNG CANCER SCREENING - USE SMARTSET 75191 Completed 10/29/2022, 06/23/2022, 10/15/2019, Additional history exists [...] or by statute hierarchy) Care Teams Assistant Guest Services Manager Relationship Specialty Start Date End Date Hayes Maurer DO [address] [place] [address] PCP - General Family Medicine 04/04/19 documented as of this encounter
--- OUTSIDE RECORDS SUMMARY | 2023-02-27 12:58 | External Medical Summary | Summary of Care ---
Author Name Unknown Organization [facility] Address [address] [place] [address] Phone [phone] Care Team Providers Care Offset Pressman Name Role Phone Hayes Maurer DO Primary Care Provider Reason for Referral * Evaluate & Treat - Unlimited Visits (Within 30 days (routine)) - Authorized Specialty Diagnoses / Procedures Referred By Johanny garcia Referred To Contact Hematology/Oncology / Hematology Oncology Diagnoses Malignancy (HCC) Hayes Maurer DO [address] [place] [address] Referral ID Status Reason Start Date Expiration Date Visits Requested Visits Authorized [id number] Authorized Specialty Services Required 11/03/2022 999 999 Question Answer Referral Priority Within 30 days (routine) Reason for Referral Other - Please Comment - enlarged lymph nodes Reason for Visit * Reason Onset Date Comments Referral 11/03/2022 Encounter Details Date Type Department Care Team Description 11/03/2022 Telephone Family Practice [facility] [address] [place] [address] Hayes Maurer DO [address] [place] [address] Referral Allergies Active Allergy Reactions Severity Noted [...] mRNA, LNP-s, No Pre serve, 2-Dose Series ([employer]) 03/04/2021,07/22/2020,07/01/2020 Hepatitis B Vaccine 03/26/1997 Pneumococcal Conjugate [...] referral need to be placed into the [employer] system? Name of preferred specialist: Dr. Kristine Almaguer Type of specialist: oncology Location of specialist: [facility] Specialist's Phone #: Specialist's Fax #: - Reason for visit: enlarged lymph nodes Date of visit: - Pt is currently at [facility] [phone] room 213, please call pt whenreferral placed documented in this encounter Plan of Treatment Upcoming Encounters Date Type Specialty Care Team Description 11/09/2022 Office Visit Urology Sahil Funk MD [address] [place] [address] [place] [address] 11/17/2022 Office Visit Family Medicine Hayes Maurer DO [address] [place] [address] 12/13/2022 Office Visit Cardiology Emery Kwan DO [address] [place] [address] 01/17/2023 Hospital Encounter Endoscopy Michael Alejandro MD [address] [place] [address] 01/17/2023 Surgery Endoscopy Michael Alejandro MD [address] [place] [address] COLONOSCOPY FLEXIBLE PROXIMAL DIAGNOSTIC 03/09/2023 Office Visit Family Medicine Erasto Hayes ShermargotDO [address] [place] [address] Scheduled Procedures Name Priority Associated Diagnoses Date/Ti [...] D LEVEL ONCE IN A LIFETIME-USE SMARTSET# [id number] Completed 08/02/2011, 04/24/2009, 06/25/2008, Additional history exists Mammogram Discontinued 12/18/2014, 11/05, 12/22/2006, Additional history exists Pneumococcal Vaccine: 65+ Years Completed 08/10/2017, 06/14/2016 Alpha-1 Antitrypsin Completed 03/15/2022 LUNG CANCER SCREENING - USE SMARTSET 17607 Completed 10/29/2022, 06/23/2022, 10/15/2019, Additional history exists [...] patient or by statute hierarchy) Care Teams Offset Pressman Relationship Specialty Start Date End Date Hayes Maurer DO [address] [place] [address] PCP - General Family Medicine 04/04/19 documented as of this encounter
--- OUTSIDE RECORDS SUMMARY | 2023-02-27 12:58 | External Medical Summary | Summary of Care ---
Author Name Unknown Organization [facility] Address [address] [place] [address] Phone [phone] Care Team Providers Care Software Sales Executive Name Role Phone Hayes Maurer DO Primary Care Provider Encounter Details Date Type Department Care Team Description 11/08/[address] [facility] [address] [place] [address] Hayes Maurer DO [address] [place] [address] Allergies Active Allergy Reactions Severity Noted Date [...] OPD, group B, by GOLD 2017 classification ([facility] [...] Visit Hematology Oncology Héctor Rodriguez MD [address] [place] [address] 11/09/2022 Office Visit Urology Sahil Funk MD [address] [place] [address] [place] [address] 11/17/2022 Office Visit Family Medicine Hayes Maurer, DO [address] [place] [address] 12/13/2022 Office Visit Cardiology Emery Kwan, [address] [place] [address] 01/17/2023 Hospital Encounter Endoscopy Michael Alejandro MD [address] [place] [address] 01/17/2023 Surgery Endoscopy Michael Alejandro MD [address] [place] [address] COLONOSCOPY FLEXIBLE PROXIMAL DIAGNOSTIC 03/09/2023 Office Visit Family Medicine Hayes Maurer DO [address] [place] [address] Scheduled Procedures Name Priority Associated Diagnoses Date/Ti me COLONOSCOPY FLEXIBLE PROXIMAL DIAGNOSTIC Recall History of colon polyps Special screening for malignant neoplasms, colon 01/17/2023 2:30 PM EST Health Maintenance Due Date Last Done Comments DISCUSS TOBACCO CESSATION (REFER TO SMARTSET #8088) 1950 Hepatitis B (2 of 3 - [...] D LEVEL ONCE IN A LIFETIME-USE SMARTSET# 37953 Completed 08/02/2011, 04/24/2009, 06/25/2008, Additional history exists Mammogram Discontinued 12/18/2014, 11/05, 12/22/2006, Additional history exists Pneumococcal Vaccine: 65+ Years Completed 08/10/2017, 06/14/2016 Alpha-1 Antitrypsin Completed 03/15/2022 LUNG CANCER SCREENING - USE SMARTSET 99049 Completed 10/29/2022, 06/23/2022, 10/15/2019, Additional history exists [...] Agents on File Name Relationship Healthcare Agent [facility] Communication Michael Funk Spouse Health Care Repr esentative (appointed verbally by patient or by statute hierarchy) Care Teams Software Sales Executive Relationship Specialty Start Date End Date Hayes Maurer DO [address] [place] [address] PCP - General Family Medicine 04/04/19 documented as of this encounter
--- OUTSIDE RECORDS SUMMARY | 2023-02-27 12:58 | External Medical Summary | Summary of Care ---
Author Name Unknown Organization [facility] Address [address] [place] [address] Phone [phone] Care Team Providers Care Spareribs Trimmer Name Role Phone Hayes Maurer Primary Care Provider Reason for Visit * Reason Onset Date Comments Referral 11/04/2022 Encounter Details Date Type Department Care Team Description 11/04/2022 Telephone Hematology/Oncology Treatment, [place] [address] [place] [address] Mayda Carmona MD [address] [place] [id number] Referral Allergies Active Allergy Reactions Severity Noted [...] original note were not included. I reviewed [facility] records: Lymph node, right supraclavicular, ultrasound-guided aspiration: [...] CMA - 11/04/2022 10:33 AM EDT Called [facility] where patient is residing at this moment after discharge from the hospital. Spoke with Trudy at [facility] who handles appointments and she agreed [...] Luis Stone- patient was admitted, discharged to [facility]. 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 Small cell component is small dunk but large cell component is not obviously adeno or squamous and may end up "non-small cell, NOS"." This is from pathologist. She is discharging today to [facility](she had hip fx) severe malnutrition, 47.5kg 25#wt loss in 1 month. Can you get her an appt to be seen?" Patient can be reached at [phone]. Scheduling: please call patient to schedule new patient appt for next week. Thanks! documented in this encounter Plan of Treatment Upcoming Encounters Date Type Specialty Care Team Description 11/09/2022 Office Visit Hematology Oncology Héctor Rodriguez MD [address] [facility] [place] [address] 11/09/2022 Office Visit Urology Sahil Funk MD [address] [place] [address] [place] [address] 11/17/2022 Office Visit Family Medicine Hayes Maurer, DO [address] [place] [address] 12/13/2022 Office Visit Cardiology Emery Kwan, DO [address] [place] [address] 01/17/2023 Hospital Encounter Endoscopy Michael Alejandro MD [address] [place] [address] 01/17/2023 Surgery Endoscopy Michael Alejandro MD [address] [place] [address] COLONOSCOPY FLEXIBLE PROXIMAL DIAGNOSTIC 03/09/2023 Office Visit Family [facility] Hayes Maurer, DO [address] [place] [address] Scheduled Procedures Name Priority Associated Diagnoses Date/Ti [...] D LEVEL ONCE IN A LIFETIME-USE SMARTSET# [id number] Completed 08/02/2011, 04/24/2009, 06/25/2008, Additional history exists Mammogram Discontinued 12/18/2014, 11/05, 12/22/2006, Additional history exists Pneumococcal Vaccine: 65+ Years Completed 08/10/2017, 06/14/2016 Alpha-1 Antitrypsin Completed 03/15/2022 LUNG CANCER SCREENING - USE SMARTSET 48221 Completed 10/29/2022, 06/23/2022, 10/15/2019, Additional history exists [...] patient or by statute hierarchy) Care Teams Spareribs Trimmer Relationship Specialty Start Date End Date Hayes Maurer DO [address] [place] [address] PCP - General Family Medicine 04/04/19 documented as of this encounter
--- OUTSIDE RECORDS SUMMARY | 2023-02-27 12:58 | External Medical Summary | Summary of Care ---
Author Name Unknown Organization [facility] Address [address] [facility] [address] Phone [phone] Care Team Providers Care Clinic Office Coordinator Name Role Phone Hayes Maurer DO Primary Care Provider Encounter Details Date Type Department Care Team Description 10/30/2022 Result Scan Unspecified Department <No scans attached> [...] OPD, group B, by GOLD 2017 classification ([facility]) Inhale 3 mL via [...] Visit Hematology Oncology Héctor Rodriguez MD [address] [place] [address] 11/09/2022 Office Visit Urology Sahil Funk MD [address] [address] [place] [address] 11/17/2022 Office Visit Family Medicine Hayes Maurer DO [address] [place] [address] 12/13/2022 Office Visit Cardiology Emery Kwan DO [address] [place] [address] 01/17/2023 Hospital Encounter Endoscopy Michael Alejandro MD [address] [place] [address] 01/17/2023 Surgery Endoscopy Michael Alejandro MD [address] [place] [address] COLONOSCOPY FLEXIBLE PROXIMAL DIAGNOSTIC 03/09/2023 Office Visit Family Medicine Hayes Maurer, [address] [place] [address] Scheduled Procedures Name Priority Associated Diagnoses Date/Ti [...] D LEVEL ONCE IN A LIFETIME-USE SMARTSET# 66592 Completed 08/02/2011, 04/24/2009, 06/25/2008, Additional history exists Mammogram Discontinued 12/18/2014, 11/05, 12/22/2006, Additional history exists Pneumococcal Vaccine: 65+ Years Completed 08/10/2017, 06/14/2016 Alpha-1 Antitrypsin Completed 03/15/2022 LUNG CANCER SCREENING - USE SMARTSET [id number] Completed 10/29/2022, 06/23/2022, 10/15/2019, Additional history exists GARDASIL-HPV IMMUNIZATION SERIES Aged Out No longer eligible based on patient's age to complete this topic MENINGOCOCCAL (MENACTRA/MENVEO) Aged Out No longer eligible based on patient's age to complete this topic documented as of this encounter Medical Devices Not on filedocumented as of this encounter Procedures Procedure Name Priority Date/Time Associated Diagnosis Comments RADIOLOGY SCANNED RESULT 10/30/2022 documented in this encounter Results * RADIOLOGY SCANNED RESULT (10/30/2022) 10/30/2022 No Physician Data Unknown DIAGNOSTIC RAD IOLOGY SERVICES documented in this encounter Additional Health Concerns Infection Onset Date Last Indicated Resolved Time C. difficile 10/12/2022 10/12/2022 documented as of this encounter Advance Directives Healthcare Agents on File Name Relationship Healthcare Agent Relationshi p Communication Michael Cifuentes [place] Spouse Health Care Repr esentative (appointed verbally by patient or by statute hierarchy) Care Teams Clinic Office Coordinator Relationship Specialty Start Date End Date Hayes Maurer DO [address] [place] [address] PCP - General Family Medicine 04/04/19 documented as of this encounter
--- OUTSIDE RECORDS SUMMARY | 2023-02-27 12:58 | External Medical Summary | Summary of Care ---
Author Name Unknown Organization [facility] Address [address] [place] [address] Phone [phone] Care Team Providers Care Ramp Boss Name Role Phone Hayes Maurer Primary Care Provider Reason for Visit * Reason Onset Date Comments Referral 11/04/2022 Encounter Details Date Type Department Care Team Description 11/04/2022 Telephone Hematology/Oncology Treatment, [place] [address] [place] [address] Mayda Carmona MD [address] [place] [id number] Referral Allergies Active Allergy Reactions Severity Noted [...] Luis Stone- patient was admitted, discharged to [facility]. 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 Small cell component is small dunk but large cell component is not obviously adeno or squamous and may end up "non-small cell, NOS"." This is from pathologist. She is discharging today to [facility](she had hip fx) severe malnutrition, 47.5kg 25#wt loss in 1 month. Can you get her an appt to be seen?" Patient can be reached at [phone]. Scheduling: please call patient to schedule new patient appt for next week. Thanks! documented in this encounter Plan of Treatment Upcoming Encounters Date Type Specialty Care Team Description 11/09/2022 Office Visit Hematology Oncology Héctor Rodriguez MD [address] [facility] [place] [address] 11/09/2022 Office Visit Urology Sahil Funk MD [address] [place] [address] [place] [address] 11/17/2022 Office Visit Family Medicine Hayes Maurer, [address] [place] [address] 12/13/2022 Office Visit Cardiology Emery Kwan, DO [address] [place] [address] 01/17/2023 Hospital Encounter Endoscopy Michael Alejandro MD [address] [place] [address] 01/17/2023 Surgery Endoscopy Michael Alejandro MD [address] [place] [address] COLONOSCOPY FLEXIBLE PROXIMAL DIAGNOSTIC 03/09/2023 Office Visit Family Medicine Hayse Maurer, [address] [place] [address] Scheduled Procedures Name Priority Associated Diagnoses Date/Ti me COLONOSCOPY FLEXIBLE PROXIMAL DIAGNOSTIC Recall History of colon polyps Special screening for malignant neoplasms, colon 01/17/2023 2:30 PM EST Health Maintenance Due Date Last Done Comments DISCUSS TOBACCO CESSATION (REFER TO SMARTSET #4571) 1950 Hepatitis B (2 of 3 - [...] D LEVEL ONCE IN A LIFETIME-USE SMARTSET# [id number] Completed 08/02/2011, 04/24/2009, 06/25/2008, Additional history exists Mammogram Discontinued 12/18/2014, 11/05, 12/22/2006, Additional history exists Pneumococcal Vaccine: 65+ Years Completed 08/10/2017, 06/14/2016 Alpha-1 Antitrypsin Completed 03/15/2022 LUNG CANCER SCREENING - USE SMARTSET 59263 Completed 10/29/2022, 06/23/2022, 10/15/2019, Additional history exists [...] patient or by statute hierarchy) Care Teams Ramp Boss Relationship Specialty Start Date End Date Hayes Maurer DO [address] [place] [address] PCP - General Family Medicine 04/04/19 documented as of this encounter
--- OUTSIDE RECORDS SUMMARY | 2023-02-27 12:58 | External Medical Summary | Summary of Care ---
Author Name Unknown Organization [facility] Address [address] [place] [address] Phone [phone] Care Team Providers Care Vehicle Return Associate Name Role Phone Hayes Maurer Primary Care Provider Reason for Visit * Reason Onset Date Comments Referral 11/04/2022 Encounter Details Date Type Department Care Team Description 11/04/2022 Telephone Hematology/Oncology Treatment, [place] [address] [place] [address] Mayda Carmona MD [address] [place] [id number] Referral Allergies Active Allergy Reactions Severity Noted [...] Luis Stone- patient was admitted, discharged to [facility]. 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 Small cell component is small dunk but large cell component is not obviously adeno or squamous and may end up "non-small cell, NOS"." This is from pathologist. She is discharging today to [facility](she had hip fx) severe malnutrition, 47.5kg 25#wt loss in 1 month. Can you get her an appt to be seen?" Patient can be reached at [phone]. Scheduling: please call patient to schedule new patient appt for next week. Thanks! documented in this encounter Plan of Treatment Upcoming Encounters Date Type Specialty Care Team Description 11/09/2022 Office Visit Hematology Oncology Héctor Rodriguez MD [address] [facility] [place] [address] 11/09/2022 Office Visit Urology Sahil Funk MD [address] [place] [address] [place] [address] 11/17/2022 Office Visit Family Medicine Hayes Maurer, [address] [place] [address] 12/13/2022 Office Visit Cardiology Emery Kwan, DO [address] [place] [address] 01/17/2023 Hospital Encounter Endoscopy Michael Alejandro MD [address] [place] [address] 01/17/2023 Surgery Endoscopy Michael Alejandro MD [address] [place] [address] COLONOSCOPY FLEXIBLE PROXIMAL DIAGNOSTIC 03/09/2023 Office Visit Family Medicine Hayes Maurer, [address] [place] [address] Scheduled Procedures Name Priority Associated Diagnoses Date/Ti me COLONOSCOPY FLEXIBLE PROXIMAL DIAGNOSTIC Recall History of colon polyps Special screening for malignant neoplasms, colon 01/17/2023 2:30 PM EST Health Maintenance Due Date Last Done Comments DISCUSS TOBACCO CESSATION (REFER TO SMARTSET #9597) 1950 Hepatitis B (2 of 3 - [...] D LEVEL ONCE IN A LIFETIME-USE SMARTSET# [id number] Completed 08/02/2011, 04/24/2009, 06/25/2008, Additional history exists Mammogram Discontinued 12/18/2014, 11/05, 12/22/2006, Additional history exists Pneumococcal Vaccine: 65+ Years Completed 08/10/2017, 06/14/2016 Alpha-1 Antitrypsin Completed 03/15/2022 LUNG CANCER SCREENING - USE SMARTSET 26136 Completed 10/29/2022, 06/23/2022, 10/15/2019, Additional history exists [...] patient or by statute hierarchy) Care Teams Vehicle Return Associate Relationship Specialty Start Date End Date Hayes Maurer DO [address] [place] [address] PCP - General Family Medicine 04/04/19 documented as of this encounter
--- OUTSIDE RECORDS SUMMARY | 2023-02-27 12:58 | External Medical Summary ---
Author Name Unknown Address Unknown Organization K[facility] [place] [place] [address] Laboratory Report Ordering Provider Test Date Status ARLEEN FIGUEROA 11/10/2022 05:55:00 Final Observation Date Value Abnormality Reference (Units ) Status WBC, Total 11/10/2022 05:55:00 10.74 4.00-10.8 0 (K/uL) Final RBC 11/10/2022 05:55:00 2.68 3.85-5.15 (M/uL) Final Hemoglobin 11/10/2022 05:55:00 8.4 Below low normal 12 .0-15.3 (g/dL) Final HCT 11/10/2022 05:55:00 28.2 Below low normal 36. 0-45.2 (%) Final MCV 11/10/2022 05:55:00 105.2 81.5-97.5 (fL) Final MCH 11/10/2022 05:55:00 31.3 27.0-34.0 (pg) Final MCHC 11/10/2022 05:55:00 29.8 32.0-36.0 (g/dL) Final RDW 11/10/2022 05:55:00 16.0 11.5-15.5 (%) Final Platelets 11/10/2022 05:55:00 383 140-400 (K /uL) Final MPV 11/10/2022 05:55:00 9.7 6.6-11.1 ( fL) Final Performing Location [facility] [place] [address]
--- OUTSIDE RECORDS SUMMARY | 2023-02-27 12:58 | External Medical Summary | Summary of Care ---
Author Name Unknown Organization [facility] Address [address] [place] [address] Phone [phone] Care Team Providers Care Tax Investigator Name Role Phone Hayes Maurer DO Primary Care Provider Reason for Visit * Reason Onset Date Comments case management 11/18/2022 [facility] x 2 Encounter Details Date Type Department Care Team Description 11/18/2022 [employer] Telephone Family [address] [place] [address] India Wilks, waste management engineer ([place] x 2) Allergies Active Allergy Reactions Severity Noted Date Comments Morphine 03/26/1997 Shock, dyspnea Other reaction(s): shock, dspnea Neomycin 04/07/2013 documented as of this encounter (statuses as of 11/18/2022) Medications Medication Sig Dispensed Refills Start Date [...] COPD, group B, by GOLD 2017 classification ([facility]) Inhale 3 mL via nebulizer every [...] as of this encounter (statuses as of 11/18/2022) Active Problems Problem Noted Date Medical home [...] as of this encounter (statuses as of 11/18/2022) Resolved Problems Problem Noted Date Resolved Date [...] as of this encounter (statuses as of 11/18/2022) Immunizations Name Administration Dates Next Due COVID-19 mRNA, LNP-s, No Pre serve, 2-Dose Series (Gigalocal) 03/04/2021,07/22/2020,07/01/2020 Pneumococcal Conjugate Vacc, 13 Valent (Prevnar) [...] Telephone Encounter - India Wilks RN - 11/18/2022 9:57 AM EDT Follow-up Post Discharge Attempted Phone Call Second Attempt Call Outcome Left Voicemail/Message Plan To attempt another outreach documented in this encounter Plan of Treatment Upcoming Encounters Date Type Specialty Care Team Description 11/21/2022 Imaging Radiology 11/25/2022 Office Visit Hematology Oncology Héctor Rodriguez MD [address] [place] [address] 12/13/2022 Office Visit Cardiology Emery Kwan DO [address] [place] [address] 01/17/2023 Hospital Encounter Endoscopy Michael Alejandro MD [address] [place] [address] 01/17/2023 Surgery Endoscopy Michael Alejandro MD [address] [place] [address] COLONOSCOPY FLEXIBLE PROXIMAL DIAGNOSTIC 02/08/2023 Imaging Radiology 03/07/2023 Office Visit Urology Sahil Funk MD [address] [place] [address] [place] [address] 03/09/2023 Office Visit Family Medicine Hayes Maurer, [address] [place] [address] Scheduled Procedures Name Priority Associated Diagnoses Date/Ti me COLONOSCOPY FLEXIBLE PROXIMAL DIAGNOSTIC Recall History of colon polyps Special screening for malignant neoplasms, colon 01/17/2023 2:30 PM EST Health Maintenance Due Date Last Done Comments DISCUSS TOBACCO CESSATION (REFER TO SMARTSET #7591) 1950 Hepatitis B (2 of 3 - [...] D LEVEL ONCE IN A LIFETIME-USE SMARTSET# [id number] Completed 08/02/2011, 04/24/2009, 06/25/2008, Additional history exists Mammogram Discontinued 12/18/2014, 11/05, 12/22/2006, Additional history exists Pneumococcal Vaccine: 65+ Years Completed 08/10/2017, 06/14/2016 Alpha-1 Antitrypsin Completed 03/15/2022 LUNG CANCER SCREENING - USE SMARTSET [id number] Completed 10/29/2022, 06/23/2022, 10/15/2019, Additional history exists [...] patient or by statute hierarchy) Care Teams Tax Investigator Relationship Specialty Start Date End Date Hayes Maurer DO [address] [place] [address] PCP - General Family Medicine 04/04/19 documented as of this encounter
--- OUTSIDE RECORDS SUMMARY | 2023-02-27 12:58 | External Medical Summary | Summary of Care ---
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) Procedures PET CT SKULL BASE TO MID-THIGH Héctor Rodriguez MD [address] [place] [address] Referral ID Status Reason Start Date Expiration Date V isits Requested Visits Authorized [id number] Authorized 11/09/2022 999 999 Reason for Visit * Reason Comments Consultation Encounter Details Date Type Department Care Team Description 11/09/2022 Office Visit Hematology/Oncology [place] Trudy Valentine [address] [place] [address] Héctor Rodriguez MD [address] [place] [address] Small cell lung cancer (HCC)*; Secondary and unspecified malignant neoplasm of lymph nodes of head, face and neck (HCC); Metastasis to mediastinal lymph node (HCC) Allergies Active Allergy Reactions Severity Noted Date [...] mRNA, LNP-s, No Pre serve, 2-Dose Series (TrueInsider) 03/04/2021,07/22/2020,07/01/2020 Pneumococcal Conjugate Vacc, 13 Valent (Prevnar) 06/14/2016 Pneumococcal Polysaccharide PPV23 (Pneumovax) 08/10/2017 TDAP (age 11 and older)(Adacel) 04/02/2011 documented as of this encounter Social History Tobacco Use Types Packs/Day Years Used Date Smoking Tobacco: Some Days Cigarettes 0.6 37 Smokeless Tobacco: Never Tobacco Cessation:Ready to Q uit: Not Asked; Counseling Given: Not Answered Comments:1/2 per day-started age 35 Alcohol Use Standard Drinks/Week Comments No 0 (1 standard drink = 0.6 oz pur e alcohol) Sex Assigned at Date Recorded Not on file Job Start Date Occupation Industry Not on file Not on file Not on file documented as of this encounter Last Filed Vital Signs Vital Sign Reading Time Taken Comments Blood Pressure 90/57 11/09/2022 10:04 AM EDT Pulse 78 11/09/2022 10:04 AM EDT Temperature - - Respiratory Rate 16 11/09/2022 10:04 AM EDT Oxygen Saturation 91% 11/09/2022 10:04 AM EDT Inhaled Oxygen Concentration - - Weight 48.1 kg (106 lb) 11/09/2022 10:04 AM EDT Height 160.7 cm (5' 3.25") 11/09/2022 10:04 AM E DT Body Mass Index 18.63 11/09/2022 10:04 AM EDT documented in this encounter Progress Notes * Héctor Rodriguez MD - 11/09/2022 9:45 AM EDT KACI KATZ MR # [id number] :1950 72-year-old female, REASON FOR CONSULTATION: Consultation for Kaci Katz requested by Dr. 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 CURRENT TREATMENT: Planning for PET-CT scan for initial staging. Currently she is at . DIAGNOSTIC WORKUP: She had been admitted at [facility] for about 4 times in the last [...] lower lobe airspace consolidation. -interlobular septal thickening. [id number] bilateral pleural effusion. Right supraclavicular lymph node [...] by Dr. Ernesto Scott on 10/27/2022 at [facility]. -stool for C difficile positive Stool culture also grew norovirus - smokes about 5 cigarettes in a day, now she has discontinued smoking habit. INTERVAL HISTORY: She has come the clinic for the initial evaluation, she came to clinic in the wheelchair, [facility], she came to clinic by herself. She says that her is working at this time. No other family members available at home. She has no children. She has bilateral leg edema, for the last weeks. Lately ambulating with the help of the wheelchair,having physical therapy. No nausea, no vomiting, no increasing headache, chronic cough present. She is oxygen as needed. She is on diuretic for the leg edema. Her lowest weight was around 84 lb, now It is around 106 lb but she has increasing leg edema which is also contributing to her weight gain. No fever. REVIEW OF SYSTEMS: GENERAL: Significant weight loss, feeling weak and tired, no fever, sweats or chills. SKIN: No skin rash, no bruising. HEAD: No new or increasing headache, no dizziness. EYES: No recent change in the vision, no diplopia, EARS: No earache no tinnitus, NOSE: No epistaxis, No nasal discharge or stuffiness, MOUTH: No sores, no dysphagia, no hoarseness of voice, NECK: No lumps, No swelling in thyroid area. No stiffness. PULMONARY: Cough, shortness of breath +, no hemoptysis, no chest pain, No wheezing. CARDIOVASCULAR: No anginal chest pain, no PND, no orthopnea. No palpitation, leg edema. No syncope. GASTROINTESTINAL: No abdominal pain, no nausea or vomiting. No diarrhea, constipation +. No blood in stool or black tarry stools. No abdominal distention. UROLOGIC: No burning urination. No hematuria. MUSCULOSKELETAL: Chronic back pain. HEMATOLOGIC: No anemia, no bleeding disorder, No bruising. No history of blood transfusion. NEUROLOGIC: No seizures, no focal weakness, no speech difficulty, No memory disturbances. No tingling or numbness of the extremities. PSYCHIATRIC: No depression. Some anxiety. No psychosis. Past Medical History: Diagnosis Date Abnormal Papanicolaou [...] performed by Deisi Dent DO at [facility] EGD, FLEXIBLE, DIAGNOSTIC 07/19/2022 abdoul katz grade III reflux esophagitis/erthematous mucosa stomach/biopsies show mild irritationof stomach/ESOPHAGOGASTRODUODENOSCOPY (EGD), FLEXIBLE, TRANSORAL, DIAGNOSTIC performed by Jessica Martinez DO at [facility] EGD, FLEXIBLE, W/BIOPSY 04/24/2007 chronic gastric [...] day x 2 weeks. 84 Capsule 0 No current facility-administered medications for this [...] level: Not on file Occupational History Occupation: [employer] Comment: [employer] Tobacco Use Smoking status: Some Days Packs/day: 0.55 Years: 37.00 Pack years: 20.35 Types: Cigarettes Smokeless tobacco: Never Tobacco comments: 1/2 per day-started age 35 Vaping Use Vaping Use: Never used Substance [...] on file On Exam: LMP 06/14/1999 BP 90/57 (BP Site: Left Arm, BP Position: Sitting, BP Cuff Size: Pediatric) | Pulse 78 | Resp 16 | Ht 1.607 m (5' 3.25") | Wt 48.1 kg (106 lb) | LMP 06/14/1999 | SpO2 91% | BMI 18.63 kg/m | BSA 1.47 m Constitutional: Patient is alert, cooperative and oriented x 3. Well built female, Patient is in noacute distress. [...] LABS: Blood workup done on 11/02/2022 at [facility]: -WBC 6700, H&H of 9.5/30, Platelet count [id number] -BUN/Creat: 26/0.53, Calcium 8.3 -normal LFT -stool for norovirus --> positive IMAGING: Planning for PET-CT scan for further evaluation. ASSESSMENT AND PLAN: 72-year-old female, who was admitted at [facility] on few occasions, overall generalized declining health, weight loss, fall, fractured left intertrochanteric femur, S/P surgical intervention for that in October 2022 Imaging study showed enlarged right supraclavicular lymph node, mediastinal lymph nodes, biopsy from the right cervical lymph node showed predominant small cell lung cancer small component of non-small cell lung cancer. History of smoking noted Significant declining performed status, currently at [facility], having physical therapy, ambulating with the help of the wheelchair, chronic bilateral leg edema present. I reviewed with her regarding the diagnostic workup, reviewed the pathological findings. I would like to get PET-CT scan for initial staging and would like to see her back in the clinic and then will decide about treatment plan Briefly I talked to her about systemic chemotherapy versus combined chemotherapy radiation treatment that can be considered Thanks for the consultation Dr. Héctor Rodriguez Hem/Onc (This note was [...] Nursing Notes * Ariadna Maurer CMA - 11/09/2022 10:09 AM EDT Patient identifed by name and birthdate Do you have any concerns about pain management for today's visit? No Living Will or Advance Directive for Health Care as noted on the problem list. [facility] is a way you can talk to your provider on line through e-mail. Would you like to sign up? I can activate it for you? NO Filed Vitals: 11/09/22 1004 BP: 90/57 Pulse: 78 Resp: 16 SpO2: 91% Weight: 48.1 kg (106 lb) Height: 1.607 m (5' 3.25") Patient was [...] personnel. Patient voiced full comprehension of instructions. documented in this encounter Plan of Treatment Upcoming Encounters Date Type Specialty Care Team Description 11/17/2022 Office Visit Family Medicine Hayes Maurer DO [address] [place] [address] 11/21/2022 Imaging Radiology 11/25/2022 Office Visit Hematology Oncology Héctor Rodriguez MD [address] [facility] [place] [address] 12/13/2022 Office Visit Cardiology Aquiles, Emery J, DO [address] [place] [address] 01/17/2023 Hospital Encounter Endoscopy Michael Alejandro MD [address] [place] [address] 01/17/2023 Surgery Endoscopy Michael Alejandro MD [address] [place] [address] COLONOSCOPY FLEXIBLE PROXIMAL DIAGNOSTIC 02/08/2023 Imaging Radiology 03/07/2023 Office Visit Urology Sahil Katz MD [address] [place] [address] [place] [address] 03/09/2023 Office Visit Family Medicine Hayes Maurer DO [address] [place] [address] Scheduled Orders Name Type Priority Associated Diagnoses Orde r Schedule PET CT SKULL BASE TO MID-THIGH Medical Imaging Routine Small cell lung cancer (HCC) Secondary and unspecified malignant neoplasm of lymph nodes of head, 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) Ordered: 11/09/2022 Scheduled Procedures Name Priority Associated Diagnoses Date/Ti [...] D LEVEL ONCE IN A LIFETIME-USE SMARTSET# [id number] Completed 08/02/2011, 04/24/2009, 06/25/2008, Additional history exists Mammogram Discontinued 12/18/2014, 11/05, 12/22/2006, Additional history exists Pneumococcal Vaccine: 65+ Years Completed 08/10/2017, 06/14/2016 Alpha-1 Antitrypsin Completed 03/15/2022 LUNG CANCER SCREENING - USE SMARTSET 25046 Completed 10/29/2022, 06/23/2022, 10/15/2019, Additional history exists [...] neoplasm of bronchus and lung, unspecified site Secondary and unspecified malignant neoplasm of lymph nodes of head, 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
--- OUTSIDE RECORDS SUMMARY | 2023-02-27 12:58 | External Medical Summary | Summary of Care ---
Author Name Unknown Organization [facility] Address [address] [place] [address] Phone [phone] Care Team Providers Care Executive Pastry Chef Name Role Phone Hayes Maurer Primary Care Provider Reason for Visit * Reason Onset Date Comments Referral 11/04/2022 Encounter Details Date Type Department Care Team Description 11/04/2022 Telephone Hematology/Oncology Treatment, [place] [address] [place] [address] Mayda Carmona MD [address] [place] [id number] Referral Allergies Active Allergy Reactions Severity Noted [...] CMA - 11/04/2022 10:33 AM EDT Called [facility] where patient is residing at this moment after discharge from the hospital. Spoke with Trudy at [facility] who handles appointments and she agreed to [...] Luis Stone- patient was admitted, discharged to [facility]. 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 Small cell component is small dunk but large cell component is not obviously adeno or squamous and may end up "non-small cell, NOS"." This is from pathologist. She is discharging today to [facility](she had hip fx) severe malnutrition, 47.5kg 25#wt loss in 1 month. Can you get her an appt to be seen?" Patient can be reached at [phone]. Scheduling: please call patient to schedule new patient appt for next week. Thanks! documented in this encounter Plan of Treatment Upcoming Encounters Date Type Specialty Care Team Description 11/09/2022 Office Visit Hematology Oncology Héctor Rodriguez MD [address] [place] [address] 11/09/2022 Office Visit Urology Sahil Funk MD [address] [place] [address] [place] [address] 11/17/2022 Office Visit Family Medicine Hayes Maurer DO [address] [place] [address] 12/13/2022 Office Visit Cardiology Emery Kwan, [address] [place] [address] 01/17/2023 Hospital Encounter Endoscopy Michael Alejandro MD [address] [place] [address] 01/17/2023 Surgery Endoscopy Michael Alejandro MD [address] [place] [address] COLONOSCOPY FLEXIBLE PROXIMAL DIAGNOSTIC 03/09/2023 Office Visit Family Medicine Hayes Maurer, [address] [place] [address] Scheduled Procedures Name Priority Associated Diagnoses Date/Ti me COLONOSCOPY FLEXIBLE PROXIMAL DIAGNOSTIC Recall History of colon polyps Special screening for malignant neoplasms, colon 01/17/2023 2:30 PM EST Health Maintenance Due Date Last Done Comments DISCUSS TOBACCO CESSATION (REFER TO SMARTSET #8935) 1950 Hepatitis B (2 of 3 - [...] D LEVEL ONCE IN A LIFETIME-USE SMARTSET# [id number] Completed 08/02/2011, 04/24/2009, 06/25/2008, Additional history exists Mammogram Discontinued 12/18/2014, 11/05, 12/22/2006, Additional history exists Pneumococcal Vaccine: 65+ Years Completed 08/10/2017, 06/14/2016 Alpha-1 Antitrypsin Completed 03/15/2022 LUNG CANCER SCREENING - USE SMARTSET 12834 Completed 10/29/2022, 06/23/2022, 10/15/2019, Additional history exists [...] patient or by statute hierarchy) Care Teams Executive Pastry Chef Relationship Specialty Start Date End Date Hayes Maurer DO [address] [place] [address] PCP - General Family Medicine 04/04/19 documented as of this encounter
--- OUTSIDE RECORDS SUMMARY | 2023-02-27 12:59 | External Medical Summary | Summary of Care ---
Author Name Unknown Organization [facility] Address [address] [place] [address] Phone [phone] Care Team Providers Care Chopping Machine Operator Name Role Phone Hayes Maurer DO Primary Care Provider Reason for Visit * Reason Onset Date Comments Status Check 10/21/2022 Encounter Details Date Type Department Care Team Description 10/21/2022 Telephone Family Practice [facility] [address] [place] [address] Hayes Maurer DO [address] [place] [address] Status Check Allergies Active Allergy Reactions Severity Noted Date Comments Morphine 03/26/1997 Shock, dyspnea Other reaction(s): shock, dspnea Neomycin 04/07/2013 documented as of this encounter (statuses as of 10/21/2022) Medications Medication Sig Dispensed Refills Start Date [...] as of this encounter (statuses as of 10/21/2022) Active Problems Problem Noted Date Medical home [...] as of this encounter (statuses as of 10/21/2022) Resolved Problems Problem Noted Date Resolved Date [...] as of this encounter (statuses as of 10/21/2022) Immunizations Name Administration Dates Next Due COVID-19 [...] encounter Miscellaneous Notes * Telephone Encounter - Toshia Mendoza CPhT - 10/21/2022 10:01 AM EDT Pt calling regarding vancomycin and duoneb. Advised pt both scripts were sent to [facility] and transferred pt to [facility] pharmacy to work issue out on their end as there was nothing needed from office. Thank you, Toshia Mendoza, Tech [employer] [facility] ([facility] (formerly [facility]) 10/21/2022, 10:02 AM * Telephone Encounter - Maylin Chaparro CPhT - 10/21/2022 9:38 AM EDT Pt calling regarding her medications again. Pt is asking the same questions that we had discussed this morning in another note. I had transferred her to our [facility] to discuss the questions that she had this morning. Pt states she still is not understanding. Pt is asking to be transferred to [facility] to discuss the medications with them. Transferred pt to [facility] pharmacy. Thank you, Shweta Poole I [facility] ([facility] (Formerly [facility]) 10/21/2022,9:40 AM . * Telephone Encounter - Rajeev Latif [facility] - 10/21/2022 8:24 AM EDT Patient counseled on Vancocin "125mg by mouth four times daily x 2 weeks, 125mg by mouth twice daily x 1 week, 125mg by mouth daily x 1 week, 125mg by mouth every other day x 2 weeks. " Patient verbalized understanding. Patient repeated back several time to get correct. Reviewed other active meds. Patient agreeable and understanding. Thanks, Rajeev Latif, PharmD Clinical Pharmacist [facility](formerly [facility]) [phone] 10/21/2022, 8:37 AM * Telephone Encounter - Maylin Chaparro CPhT - 10/21/2022 8:13 AM EDT Pt is calling to discuss her medications. Pt would like to go over the recommended times to take the medications and the directions. Mainly she is questioning the directions listed on Vancomycin HCl 125 MG Oral Capsule (Vancocin) with directions stating "Taper: 125mg by mouth four times daily x 2 weeks, 125mg by mouth twice daily x 1 week, 125mg by mouth daily x 1 week, 125mg by mouth every otherday x 2 weeks." Pt would like to know if its more appropriate to take in the AM or PM. Transferringpt to [facility] Rajeev for further directions. Thank you, Shweta Poole I [facility] ([facility]) 10/21/2022,8:22 AM documented in this encounter Plan of Treatment Upcoming Encounters Date Type Specialty Care Team Description 10/24/2022 Office Visit Family Medicine Hayes Maurer, [address] [place] [address] 10/24/2022 Laboratory Laboratory Evy Francis [address] [place] [address] 11/02/2022 Office Visit Gastroenterology Rufina Alvarez CRNP [address] [place] [address] 11/09/2022 Office Visit Urology Sahil Funk MD [address] [place] [address] [place] [address] 12/13/2022 Office Visit Cardiology Emery Kwan, [address] [place] [address] 01/17/2023 Hospital Encounter Endoscopy Michael Alejandro MD [address] [place] [address] 01/17/2023 Surgery Endoscopy Michael Alejandro MD [address] [place] [address] COLONOSCOPY FLEXIBLE PROXIMAL DIAGNOSTIC 03/09/2023 Office Visit Family Medicine Hayes Maurer DO [address] [place] [address] Scheduled Procedures Name Priority Associated Diagnoses Date/Ti me COLONOSCOPY FLEXIBLE PROXIMAL DIAGNOSTIC Recall History of colon polyps Special screening for malignant neoplasms, colon 01/17/2023 2:30 PM EST Health Maintenance Due Date Last Done Comments DISCUSS TOBACCO CESSATION (REFER TO SMARTSET #6403) 1950 Hepatitis B (2 of 3 - [...] D LEVEL ONCE IN A LIFETIME-USE SMARTSET# [id number] Completed 08/02/2011, 04/24/2009, 06/25/2008, Additional history exists Mammogram Discontinued 12/18/2014, 11/05, 12/22/2006, Additional history exists Pneumococcal Vaccine: 65+ Years Completed 08/10/2017, 06/14/2016 Alpha-1 Antitrypsin Completed 03/15/2022 LUNG CANCER SCREENING - USE SMARTSET 29919 Completed 06/23/2022, 10/15/2019, 2018, Additional history exists GARDASIL-HPV IMMUNIZATION SERIES Aged [...] patient or by statute hierarchy) Care Teams Chopping Machine Operator Relationship Specialty Start Date End Date Hayes Maurer DO [address] [place] [address] PCP - General Family Medicine 04/04/19 documented as of this encounter
--- OUTSIDE RECORDS SUMMARY | 2023-02-27 12:59 | External Medical Summary | Summary of Care ---
Author Name Unknown Organization [facility] Address [address] [place] [address] Phone [phone] Care Team Providers Care Crusher Loader Operator Name Role Phone Hayes Maurer Primary Care Provider Reason for Visit * Reason Onset Date Comments case management 10/21/2022 Appointment 10/21/2022 Encounter Details Date Type Department Care Team Description 10/21/2022 Grants Specialist Telephone [address] [address] Abbie Hamilton, RN [address] [place] [address] case management; Appointment Allergies Active Allergy Reactions Severity Noted Date Comments Morphine 03/26/1997 Shock, dyspnea Other reaction(s): shock, dspnea Neomycin 04/07/2013 documented as of this encounter (statuses as of 10/24/2022) Medications Medication Sig Dispensed Refills Start Date [...] as of this encounter (statuses as of 10/24/2022) Active Problems Problem Noted Date Medical home [...] as of this encounter (statuses as of 10/24/2022) Resolved Problems Problem Noted Date Resolved Date [...] as of this encounter (statuses as of 10/24/2022) Immunizations Name Administration Dates Next Due COVID-19 [...] encounter Miscellaneous Notes * Telephone Encounter - Amabr Maurer - 10/24/2022 8:32 AM EDT I called pt and spoke to , he is getting ready now to take her to the hospital since she can't walk. He asked for appt to be cancelled. FYEdward Maurer * Telephone Encounter - Hayes Maurer DO - 10/24/2022 8:30 AM EDT I will do my best to work her in * Telephone Encounter - Ambar Maurer - 10/24/2022 7:[address] Maurer will you be able to see her earlier while she's here for her husbands appt? (See below message) * Telephone Encounter - Abbie Hamilton RN - 10/21/2022 4:34 PM EDT Patient reports she does not have duoneb. Does not understand why she can't pick it up from the pharmacy. CM called [facility] pharmacy, spoke with pharmacist Jacob Jones. Reports Duoneb is on back order, he cannot get it for anybody. They have budesonide, levalbuterol, and they have the ipratropium and albuterol separate for nebulizer use. Would you like to send in a different order for her nebulizer medications? If so, please do so. Thank you. * Telephone Encounter - Abbie Hamilton RN - 10/21/2022 3:59 PM EDT Patient reports she is doing terrible. Having issues with edema of legs and feet. Unable to get compression stockings on properly, as swelling does not go down overnight. Ongoing mushy stools - recent C-diff. Refuses to go back to [facility]. Would be interested in going somewhere for short term rehab. Has to bring her for an ultrasound at 12:30 PM Monday. It will be a hardship to take him home, and have to be back for her appointment by 2:20 PM, with anarrival time of 2:05 PM. She is asking if Dr Maurer could squeeze her in while they are there for spouse's ultrasound? Please. Also reporting she is overdue for her B12 injection. Please advise..... documented in this encounter Plan of Treatment Upcoming Encounters Date Type Specialty Care Team Description 11/02/2022 Office Visit Gastroenterology Rufina Alvarez CRNP [address] [facility] [place] [address] 11/09/2022 Office Visit Urology Sahil Funk MD [address] [place] [address] [place] [address] 12/13/2022 Office Visit Cardiology Emery Kwan DO [address] [place] [address] 01/17/2023 Hospital Encounter Endoscopy Michael Alejandro MD [address] [place] [address] 01/17/2023 Surgery Endoscopy Michael Alejandro MD [address] [place] [address] COLONOSCOPY FLEXIBLE PROXIMAL DIAGNOSTIC 03/09/2023 Office Visit Family Medicine Hayes Maurer DO [address] [place] [address] Scheduled Procedures Name Priority Associated Diagnoses Date/Ti me COLONOSCOPY FLEXIBLE PROXIMAL DIAGNOSTIC Recall History of colon polyps Special screening for malignant neoplasms, colon 01/17/2023 2:30 PM EST Health Maintenance Due Date Last Done Comments DISCUSS TOBACCO CESSATION (REFER TO SMARTSET #0411) 1950 Hepatitis B (2 of 3 - [...] D LEVEL ONCE IN A LIFETIME-USE SMARTSET# [id number] Completed 08/02/2011, 04/24/2009, 06/25/2008, Additional history exists Mammogram Discontinued 12/18/2014, 11/05, 12/22/2006, Additional history exists Pneumococcal Vaccine: 65+ Years Completed 08/10/2017, 06/14/2016 Alpha-1 Antitrypsin Completed 03/15/2022 LUNG CANCER SCREENING - USE SMARTSET [id number] Completed 06/23/2022, 10/15/2019, 2018, Additional history exists [...] patient or by statute hierarchy) Care Teams Crusher Loader Operator Relationship Specialty Start Date End Date Hayes Maurer DO [address] [place] [address] PCP - General Family Medicine 04/04/19 documented as of this encounter
--- OUTSIDE RECORDS SUMMARY | 2023-02-27 12:59 | External Medical Summary | Summary of Care ---
Author Name Unknown Organization [facility] Address [address] [place] [address] Phone [phone] Care Team Providers Care Television Audio Engineer Name Role Phone Hayes Maurer Primary Care Provider Reason for Visit * Reason Onset Date Comments Other 10/12/2022 Encounter Details Date Type Department Care Team Description 10/12/2022 Telephone Gastroenterology, [facility] [address] [place] [address] Rufina Alvarez CRNP [address] [place] [address] Other Allergies Active Allergy Reactions Severity Noted Date Comments Morphine 03/26/1997 Shock, dyspnea Other reaction(s): shock, dspnea Neomycin 04/07/2013 documented as of this encounter (statuses as of 10/31/2022) Medications Medication Sig Dispensed Refills Start Date End Date Status Oxybutynin Chloride ER 5 MG Oral Tablet Extended Release 24 Hour (Ditropan XL) Take 1 Tablet by mouth in the morning. 30 Tablet 6 09/07/2022 Active Levothyroxine Sodium 88 MCG Oral Tablet (Levoxyl)Indication s:Postoperative hypothyroidism Take 1 Tablet by mouth in the morning. (at least 30 min prior to breakfast or other meds). 90 Tablet 3 10/06/2022 Active Metoprolol Succinate ER 25 MG Oral Tablet Extended Release 24 Hour (toPROL XL)Indications:SVT (supraventricular tachycardia) (HCC) Take 0.5 Tablets by mouth in the morning. 45 Tablet 3 10/06/2022 Active Pantoprazole Sodium 40 MG Oral Tablet Delayed Release (Protonix)Indicatio ns:Esophagitis Take 1 Tablet by mouth in the morning. 90 Tablet 3 10/06/2022 Active Ipratropium-Albuter ol 0.5-2.5 (3) MG/3ML Inhalation Solution (Duoneb)Indications :COPD, group B, by GOLD 2017 classification ([facility]) Inhale 3 mL via nebulizer every 6 hours as needed for Cough, Shortness of Breath or Wheezing. 360 mL 3 10/06/2022 Active Fidaxomicin 200 MG Oral Tablet (Dificid) Take 1 Tablet by mouth in the morning and 1 Tablet before bedtime. 20 Tablet 0 10/12/2022 3 Discontinued documented as of this encounter (statuses as of 10/31/2022) Active Problems Problem Noted Date Medical home [...] as of this encounter (statuses as of 10/31/2022) Resolved Problems Problem Noted Date Resolved Date [...] as of this encounter (statuses as of 10/31/2022) Immunizations Name Administration Dates Next Due COVID-19 [...] encounter Miscellaneous Notes * Telephone Encounter - Katiuska Askew RN - 10/31/2022 3:17 PM EDT I called the pharmacy to see if this was filled. It has not been filled and has a $274 co-pay. I left another message for the patient to return my call. * Telephone Encounter - Katiuska Askew RN - 10/27/2022 2:59 PM EDT I left a message for the patient to return my call. * Telephone Encounter - Natalie Valle RN - 10/13/2022 1:03 PM EDT Called and LMOM with call back number * Telephone Encounter - Natalie Valle RN - 10/13/2022 11:21 AM EDT treatment plan Changed to Vancomycin pulse tapered therapy. See alternative TE as well and inform her of this as well when she calls back. * Telephone Encounter - Natalie Valle RN - 10/12/2022 3:12 PM EDT LMOM with call back number. * Telephone Encounter - Natalie Valle RN - 10/12/2022 3:09 PM EDT The results of your stool test reveals that you are positive for C-diff. Clostridium difficile (C. difficile) is a bacterium or germ that normally lives in the stomach and intestines. The bacteria can be harmful if it produces toxins that cause diarrhea and other symptoms. Some people have c. difficile in their intestinal tract but are not sick. A new strain of c. difficile has developed which can make large amounts of toxin that may cause serious illness. C. difficile is spread by stool. Any surface (toilets, handles, bedpans, commode chairs, bedding, and medical equipment) that become contaminated with stool may spread the spores which can liveon these surfaces longer than other bacteria. It can be spread from unwashed hands or from unclean items that are shared. When someone touches the dirty item and then touches his/her mouth, (ingesting it,) he/she could get sick. Patients are at risk for c-diff while taking antibiotics as good germs that protect against infection are destroyed, creating an opportunity for an increase in the c-diff toxin. Elderly patients are also at risk due to lowered immunity. Symptoms may include watery diarrhea, belly pain/tenderness, fever, loss of appetite, nausea. To prevent the spread of C-diff we recommend patients and family members wash their hands well withsoap and water after using the bathroom and before eating. Using paper towels to dry your hands is encouraged as reusing towels may have the potential for recontamination. C-diff spores cannot be killed by alcohol based (antibacterial) hand sanitizers. Please maintain good personal hygiene by showering and wearing clean laundered clothing. If clothes or bed linens become soiled with diarrhea, wash them separately in the washing machine with hot water, detergent, and bleach if fabric compatible.Machine dry if possible. Try to stick to one bathroom within your home and avoid sharing with family members if possible. Clean the bathroom with a diluted bleach solution ( cup of bleach in 1 quart of water.) Be sure to clean and disinfect any object that has been contaminated with stool; faucet handles, flush handles, bedrails, and door knobs. You have been prescribed an antibiotic. (read from MAR) Please remember to take this medication as ordered, with food, and avoid consuming any alcoholic beverages while on antibiotic therapy. Do not use any anti-diarrheal agents (Imodium/Lomotil) unless instructed by your provider. We do not order a test of care stool study unless you remain symptomatic after treatment. Please contact our office if you continue to have symptoms once you have completed your antibiotic course. You may choose to take over the counter pro-biotics capsules/ yogurts, or Kefir smoothies once your antibiotic therapy is completed in attempt to restore the good bacteria in your intestinal tract. Please communicate history of c-diff treatment to any of your health rn homecare that may beprescribing antibiotic therapy in the future. * Telephone Encounter - Natalie Valle RN - 10/12/2022 3:09 PM EDT ----- Message from FARTUN Villaseñor sent at 10/12/2022 2:28 PM EDT ----- Nurses - pls call pt and inform her that Cdiff is positive. This is a recurrence. Plan to treat with Fidaxomicin 200mg BID x 10 day which I send into [facility] @ [facility] Garcia documented in this encounter Plan of Treatment Upcoming Encounters Date Type Specialty Care Team Description 11/02/2022 Office Visit Gastroenterology Rufina Alvarez CRNP [address] [place] [address] 11/09/2022 Office Visit Urology Sahil Funk MD [address] [place] [address] [place] [address] 12/13/2022 Office Visit Cardiology Emery Kwan DO [address] [place] [address] 01/17/2023 Hospital Encounter Endoscopy Michael Alejandro MD [address] [place] [address] 01/17/2023 Surgery Endoscopy Michael Alejandro MD [address] [place] [address] COLONOSCOPY FLEXIBLE PROXIMAL DIAGNOSTIC 03/09/2023 Office Visit Family Medicine Hayes Maurer DO [address] [place] [address] Scheduled Procedures Name Priority Associated Diagnoses Date/Ti [...] D LEVEL ONCE IN A LIFETIME-USE SMARTSET# [id number] Completed 08/02/2011, 04/24/2009, 06/25/2008, Additional history exists Mammogram Discontinued 12/18/2014, 11/05, 12/22/2006, Additional history exists Pneumococcal Vaccine: 65+ Years Completed 08/10/2017, 06/14/2016 Alpha-1 Antitrypsin Completed 03/15/2022 LUNG CANCER SCREENING - USE SMARTSET [id number] Completed 06/23/2022, 10/15/2019, 2018, Additional history exists [...] patient or by statute hierarchy) Care Teams Television Audio Engineer Relationship Specialty Start Date End Date Hayes Maurer DO [address] [place] [address] PCP - General Family Medicine 04/04/19 documented as of this encounter
--- OUTSIDE RECORDS SUMMARY | 2023-02-27 12:59 | External Medical Summary | Summary of Care ---
Author Name Unknown Organization [facility] Address [address] [place] [address] Phone [phone] Care Team Providers Care Medical Massage Therapist Name Role Phone Hayes Maurer Primary Care Provider Encounter Details Date Type Department Care Team Description 10/21/2022 Rehab RnLinux Programmer Medicine [address] [address] Abbie Hamilton, RN [address] [place] [address] Medical home patient encounter*; Hospital discharge follow-up; Generalized weakness; Clostridium difficile diarrhea; Hydronephrosis, right; Post-surgical hypothyroidism; Bilateral leg edema; History of PSVT (paroxysmal supraventricular tachycardia) Allergies Active Allergy Reactions Severity Noted Date [...] as of this encounter Progress Notes * Abbie Hamilton RN - 10/21/2022 4:48 PM EDT Spoke with Tanya Cortez In scheduling. If patient would like to call [facility] weekend clinic in the morning, there are opening, but they cannot be scheduled until tomorrow. CM called patient and informed her there are openings at [facility] tomorrow, Monday, would thathelp her? Patient reports spouse has to work tomorrow, so no, she would not be able to go tomorrow. She would prefer to be seen Monday, just at an earlier time if possible. Encouraged patient to keep hospital follow up appointment on Monday. Told her I had not heard back yet, as to whether they could see her sooner on Monday. * Abbie Hamilton RN - 10/21/2022 4:44 PM EDT Called [facility], spoke with pharmacist, Robert. Reports Duoneb is on back order - he cannot get it for anyone. He has budesonide, levalbuterol, and the ipratropium and albuterol separately - in stock. CM sent message to PCP asking if he would like to order something other than the duoneb? If so, to please send it to [facility]. * Abbie Hamilton RN - 10/21/2022 4:08 PM EDT Rehab Rn Progress Note: Only partial assessment completed, patient not well enough to complete in one call. Date: 10/21/22 Assigned Patient Tier: 2 Connected with patient via telephone. Verified patient name/. Advised patient that call is beingrecorded for quality and training purposes. Assessment: Pt. noted the following: alert, oriented, pleasant. Conversation abbreviated. Raspy voice. Not active with home health. Lives with spouse, Michael. Patient reports she is doing "terrible". Ongoing issues with edema of bilateral lower extremities. Swelling does not go down overnight. Reports she unable to put her compression stockings on this morning, only on her feet? Elevating them as much as possible. "Nothing is working, I am doing everything they told me to do." Stools are no longer diarrhea, they are now mushy. Continues to move several times per day, "worse late at night". Taking imodium. Refuses to go back to the hospital. Confirmed PCP appointment scheduled for Monday - patient doesn't think she will be able to keep it, as spouse has to have an ultrasound at 12:30 PM. She would then have to go home, and come back. Her check in time is 2:05 PM, with an appointment at 2:20 PM. She is asking if she could be see while spouse is there for his ultrasound? Reports she is also overdue for her B12 injection. CM sending message to PCP and scheduling. Reports she would also be willing to go to a [facility] or a SNF rehab for short term rehab if that would be possible. Patient reports she has not been able to cigar packer and picker her nebulizer machine yet, and she can't get the medication for it and doesn't understand why. Reports her just went back to work after having an abdominal aneurysm repair and he is having issues too. He is due to be home soon, and she doesn't have supper ready yet, and its difficult for her to get around in the kitchen - she is anxious and frustrated. CM will call [facility] regarding her duoneb and see what the issue is. Did you receive an alert for an annual wellness visit? No Is this call for a hospital, longterm or rehab facility discharge to home? Yes - patient was inpatient at [facility] from 10/12/22 to 10/20/22. Discharge dx: generalized weakness, C.difficile diarrhea, right hydronephrosis, post surgical hypothyroidism, bilateral leg edema, hx ofPSVT. Medication Reconciliation: Medication Reconciliation completed: no. No discharge summary or discharge med list available in [employer] yet. Patient is mumbling about medications, and cost, and unavailability - not making a lot of sense. Review of Current goals: Discussed the following patient-centered CM goals with the patient during this discussion: -Prevention: Prevent admission/readmission -Status: At Risk - flustered, disorganized. Doesn't have nebulizer or nebulizer medications. No improvement in edema from before she went to the hospital. Did not have a good experience at the hospital and refuses to go back. Unsure she can keep her hospital follow up appointment scheduled for Monday. CM calling pharmacy and sending message to PCP and scheduling. [facility] referral placed. -GI: Patient will have GI issues addressed -Status: On Track - denies diarrhea. Reports stools as mushy, worse late at night. Taking imodium as directed. -COPD: Achieve successful management of COPD -Status: At Risk - has not picked up her nebulizer yet. Unable to get her duoneb from pharmacy and doesn't understand why. COPD Patient: YES Cough: none noted during encounter, Breathing: Breathing at Baseline at present, voice raspy. CHF Patient: NO CM Plan: Reviewed 3 Red Flags with patient. Advised to call CM with any of the following: Red Flag 1: increased shortness of breath/cough, Red Flag 2: ongoing/no improvement in edema/swelling, or Red Flag 3: more than 5 diarrheal stools per day, Rehab Rn will follow-up with PCP/scheduling regarding change to appointment time/day., and Referral to: [facility] for home visit, home safety assessment, bottles out med rec, vital signs, instruct on proper use/cleaning of nebulizer, assess for resource needs.. Remote Patient Monitoring: At this time, RPM not offered/considered for patient due to too much confusion and issues. No indicated need noted at this time Plan for Future Contacts: Plan to follow up early next week to check progress on the following goals/needs - pain managed? Edema/swelling? Picked up nebulizer? Has nebulizer medication? Bowels still mushy? Initiate/continue discussion on Advance Directives. . Planned contacts from the following parties will occur this week: patient was inpatient all week, and has PCP appointment scheduled for Monday, as additional contacts per workflow. Advancement/Closure Plan: Keep patient at current Tier with reassessment per workflow. Patient provided CM contact information and encouraged to call with any changes in condition. SNP Member? No PCP Notified of enrollment in CM/HM program: Yes Is Provider in agreement with POC? Yes Abbie Hamilton RN Outpatient Case Management documented in this encounter Plan of Treatment Upcoming Encounters Date Type Specialty Care Team Description 11/02/2022 Office Visit Gastroenterology Rufina Alvarez CRNP [address] [place] [address] 11/09/2022 Office Visit Urology Sahil Funk MD [address] [place] [address] [place] [address] 12/13/2022 Office Visit Cardiology Emery Kwan DO [address] [place] [address] 01/17/2023 Hospital Encounter Endoscopy Michael Alejandro MD [address] [place] [address] 01/17/2023 Surgery Endoscopy Michael Alejandro MD [address] [place] [address] COLONOSCOPY FLEXIBLE PROXIMAL DIAGNOSTIC 03/09/2023 Office Visit Family Medicine Hayes Maurer DO [address] [place] [address] Scheduled Procedures Name Priority Associated Diagnoses Date/Ti me COLONOSCOPY FLEXIBLE PROXIMAL DIAGNOSTIC Recall History of colon polyps Special screening for malignant neoplasms, colon 01/17/2023 2:30 PM EST Health Maintenance Due Date Last Done Comments DISCUSS TOBACCO CESSATION (REFER TO SMARTSET #3281) 1950 Hepatitis B (2 of 3 - [...] D LEVEL ONCE IN A LIFETIME-USE SMARTSET# [id number] Completed 08/02/2011, 04/24/2009, 06/25/2008, Additional history exists Mammogram Discontinued 12/18/2014, 11/05, 12/22/2006, Additional history exists Pneumococcal Vaccine: 65+ Years Completed 08/10/2017, 06/14/2016 Alpha-1 Antitrypsin Completed 03/15/2022 LUNG CANCER SCREENING - USE SMARTSET [id number] Completed 06/23/2022, 10/15/2019, 2018, Additional history exists GARDASIL-HPV IMMUNIZATION SERIES Aged Out No longer eligible based on patient's age to complete this topic MENINGOCOCCAL (MENACTRA/MENVEO) Aged Out No longer eligible based on patient's age to complete this topic documented as of this encounter Medical Devices Not on filedocumented as of this encounter Visit Diagnoses Diagnosis Medical home patient encounter- Primary Other specified examination Hospital discharge follow-up Other follow-up examination Generalized weakness Other malaise and fatigue Clostridium difficile diarrhea Intestinal infection due to clostridium difficile Hydronephrosis, right Hydronephrosis Post-surgical hypothyroidism Postsurgical hypothyroidism Bilateral leg edema Edema History of PSVT (paroxysmal supraventricular tachycardia) Personal history of other diseases of circulatory system History of colon polyps Personal history of [...] patient or by statute hierarchy) Care Teams Medical Massage Therapist Relationship Specialty Start Date End Date Hayes Maurer DO [address] [place] [address] PCP - General Family Medicine 04/04/19 documented as of this encounter
--- OUTSIDE RECORDS SUMMARY | 2023-02-27 12:59 | External Medical Summary | Summary of Care ---
Author Name Unknown Organization [facility] Address [address] [place] [address] Phone [phone] Care Team Providers Care Mattress Finisher Name Role Phone Hayes Maurer DO Primary Care Provider Reason for Visit * Reason Onset Date Comments Medication Question 10/21/2022 Encounter Details Date Type Department Care Team Description 10/21/2022 Telephone Family Practice [facility] [address] [place] [address] Hayes Maurer DO [address] [place] [address] Medication Question Allergies Active Allergy Reactions Severity Noted Date [...] encounter Miscellaneous Notes * Telephone Encounter - Rajeev Latif RPh - 10/21/2022 8:24 AM EDT Patient counseled [...] PharmD Clinical Pharmacist Centralized Clinical Pharmacy Services(formerly telepharmacy) [phone] 10/21/2022, 8:37 AM * Telephone Encounter - [...] in the AM or PM. Transferringpt to [facility] Rajeev for further directions. Thank you, Shweta Chaparro Welder Fitter Apprentice I Centralized Clinical Pharmacy Services (CCPS) (Formerly Telepharmacy) 10/21/2022,8:22 AM documented in this encounter Plan of Treatment Upcoming Encounters Date Type Specialty Care Team Description 10/24/2022 Office Visit Family Medicine Hayes Maurer DO [address] [place] [address] 10/24/2022 Laboratory Laboratory [facility] [address] [place] [address] 11/02/2022 Office Visit Gastroenterology Rufina Alvarez CRNP [address] [place] [address] 11/09/2022 Office Visit Urology Sahil Funk MD [address] [facility] [address] [place] [address] 12/13/2022 Office Visit Cardiology Emery Kwan DO [address] [place] [address] 01/17/2023 Hospital Encounter Endoscopy Michael Alejandro MD [address] [place] [address] 01/17/2023 Surgery Endoscopy Michael Alejandro MD [address] [place] [address] COLONOSCOPY FLEXIBLE PROXIMAL DIAGNOSTIC 03/09/2023 Office Visit Family Medicine Erasto Hayes ShermargotDO [address] [place] [address] Scheduled Procedures Name Priority Associated Diagnoses Date/Ti me COLONOSCOPY FLEXIBLE PROXIMAL DIAGNOSTIC Recall History of colon polyps Special screening for malignant neoplasms, colon 01/17/2023 2:30 PM EST Health Maintenance Due Date Last Done Comments DISCUSS TOBACCO CESSATION (REFER TO SMARTSET #0931) 1950 Hepatitis B (2 of 3 - [...] D LEVEL ONCE IN A LIFETIME-USE SMARTSET# [id number] Completed 08/02/2011, 04/24/2009, 06/25/2008, Additional history exists Mammogram Discontinued 12/18/2014, 11/05, 12/22/2006, Additional history exists Pneumococcal Vaccine: 65+ Years Completed 08/10/2017, 06/14/2016 Alpha-1 Antitrypsin Completed 03/15/2022 LUNG CANCER SCREENING - USE SMARTSET [id number] Completed 06/23/2022, 10/15/2019, 2018, Additional history exists [...] patient or by statute hierarchy) Care Teams Mattress Finisher Relationship Specialty Start Date End Date Hayes Maurer DO [address] [place] [address] PCP - General Family Medicine 04/04/19 documented as of this encounter
--- OUTSIDE RECORDS SUMMARY | 2023-02-27 12:59 | External Medical Summary | Summary of Care ---
Author Name Unknown Organization [facility] Address [address] [place] [address] Phone [phone] Care Team Providers Care Customer Support Coordinator Name Role Phone Hayes Maurer DO Primary Care Provider Reason for Visit * Reason Onset Date Comments Status Check 10/21/2022 Encounter Details Date Type Department Care Team Description 10/21/2022 Telephone Family Practice [facility] [address] [place] [address] Hayes Maurer DO [address] [place] [address] Status Check Allergies Active Allergy Reactions Severity [...] encounter Miscellaneous Notes * Telephone Encounter - Maylin Chaparro CPhT - 10/21/2022 9:38 AM EDT Pt calling regarding her medications again. Pt is asking the same questions that we had discussed this morning in another note. I had transferred her to our [facility] to discuss the questions that she had this morning. Pt states she still is not understanding. Pt is asking to be transferred to [facility] to discuss the medications with them. Transferred pt to [facility] pharmacy. Thank you, Shweta Chaparro Mission Worker I Centralized Clinical Pharmacy Services (CCPS) (Formerly Telepharmacy) 10/21/2022,9:40 AM . * Telephone Encounter - Rajeev Latif [facility] - 10/21/2022 8:24 AM EDT Patient counseled [...] Clinical Pharmacist Centralized Clinical Pharmacy Services(formerly telepharmacy) [phone] 10/21/2022, 8:37 AM * Telephone Encounter - [...] in the AM or PM. Transferringpt to [facility] Rajeev for further directions. Thank you, Shweta Chaparro Mission Worker I Centralized Clinical Pharmacy Services (CCPS) (Formerly Telepharmacy) 10/21/2022,8:22 AM documented in this encounter Plan of Treatment Upcoming Encounters Date Type Specialty Care Team Description 10/24/2022 Office Visit Family Medicine Hayes Maurer DO [address] [place] [address] 10/24/2022 Laboratory Laboratory Evy Francis [address] [place] [address] 11/02/2022 Office Visit Gastroenterology Rufina Alvarez CRNP [address] [place] [address] 11/09/2022 Office Visit Urology Sahil Funk MD [address] [place] [address] [place] [address] 12/13/2022 Office Visit Cardiology Emery Kwan, DO [address] [place] [address] 01/17/2023 Hospital Encounter Endoscopy Michael Alejandro MD [address] [place] [address] 01/17/2023 Surgery Endoscopy Michael Alejandro MD [address] [place] [address] COLONOSCOPY FLEXIBLE PROXIMAL DIAGNOSTIC 03/09/2023 Office Visit Family Medicine Hayes Maurer, [address] [place] [address] Scheduled Procedures Name Priority Associated Diagnoses Date/Ti me COLONOSCOPY FLEXIBLE PROXIMAL DIAGNOSTIC Recall History of colon polyps Special screening for malignant neoplasms, colon 01/17/2023 2:30 PM EST Health Maintenance Due Date Last Done Comments DISCUSS TOBACCO CESSATION (REFER TO SMARTSET #2991) 1950 Hepatitis B (2 of 3 - [...] D LEVEL ONCE IN A LIFETIME-USE SMARTSET# [id number] Completed 08/02/2011, 04/24/2009, 06/25/2008, Additional history exists Mammogram Discontinued 12/18/2014, 11/05, 12/22/2006, Additional history exists Pneumococcal Vaccine: 65+ Years Completed 08/10/2017, 06/14/2016 Alpha-1 Antitrypsin Completed 03/15/2022 LUNG CANCER SCREENING - USE SMARTSET [id number] Completed 06/23/2022, 10/15/2019, 2018, Additional history exists [...] or by statute hierarchy) Care Teams Customer Support Coordinator Relationship Specialty Start Date End Date Hayes Maurer DO [address] [place] [address] PCP - General Family Medicine 04/04/19 documented as of this encounter
--- OUTSIDE RECORDS SUMMARY | 2023-02-27 12:59 | External Medical Summary ---
Author Name Unknown Address Unknown Organization K09:[facility] [place] [address] Laboratory Report Ordering Provider Test Date Status ARLEEN FIGUEROA 11/03/2022 05:45:00 Final Observation Date Value Abnormality Reference (Units ) Status BUN 11/03/2022 05:45:00 19 6-20 (mg/dL) Final Creatinine 11/03/2022 05:45:00 0.5 0.5-1.0 (mg/dL) Final Glomerular filtration rate/1.73 sq M.predicted [Volume Rate/Area] in Serum, Plasma or Blood by Creatinine-based formula (CKD-EPI) 11/03/2022 05:45:00 >90 >=60 (mL/min) Final eGFR is calculated based on the CKD-EPI 2020 equation SODIUM 11/03/2022 05:45:00 138 135-146 (m mol/L) Final Potassium 11/03/2022 05:45:00 3.9 3.5-5.1 (m mol/L) Final Cl 11/03/2022 05:45:00 100 98-107 (mm ol/L) Final CO2 11/03/2022 05:45:00 27 22-32 (mmo l/L) Final Anion gap 11/03/2022 05:45:00 11 7-15 (mmol /L) Final Glucose 11/03/2022 05:45:00 94 70-120 (mg /dL) Final Calcium 11/03/2022 05:45:00 8.0 Below low normal 8.4 -10.2 (mg/dL) Final Performing Location [facility] [place] [address]
--- OUTSIDE RECORDS SUMMARY | 2023-02-27 12:59 | External Medical Summary | Summary of Care ---
Author Name Unknown Organization [facility] Address [address] [place] [address] Phone [phone] Care Team Providers Care Fire Patroller Name Role Phone Hayes Maurer DO Primary Care Provider Encounter Details Date Type Department Care Team Description 10/17/2022 Orders Only Gastroenterology, [facility] [address] [place] [address] Mary Jo Hill MD [address] [place] [address] Allergies Active Allergy Reactions Severity Noted Date Comments Morphine 03/26/1997 Shock, dyspnea Other reaction(s): shock, dspnea Neomycin 04/07/2013 documented as of this encounter (statuses as of 10/17/2022) Medications Medication Sig Dispensed Refills Start Date [...] OPD, group B, by GOLD 2017 classification ([facility]) Inhale 3 mL via nebulizer [...] as of this encounter (statuses as of 10/17/2022) Active Problems Problem Noted Date Medical home [...] as of this encounter (statuses as of 10/17/2022) Resolved Problems Problem Noted Date Resolved Date [...] as of this encounter (statuses as of 10/17/2022) Immunizations Name Administration Dates Next Due COVID-19 [...] Encounters Date Type Specialty Care Team Description 10/18/2022 Imaging Radiology 10/18/2022 Laboratory Laboratory [facility] [address] [place] [address] 10/18/2022 Office Visit Family Medicine Lalit Wiggins CRNP [address] [place] [address] 10/21/2022 Office Visit Family Medicine Zaira Betancourt CRNP [address] [place] [address] 11/02/2022 Office Visit Gastroenterology Rufina Alvarez CRNP [address] [place] [address] 11/09/2022 Office Visit Urology Sahil Funk MD [address] [place] [address] [place] [address] 12/13/2022 Office Visit Cardiology Emery Kwan, [address] [place] [address] 01/17/2023 Hospital Encounter Endoscopy Michael Alejandro MD [address] [place] [address] 01/17/2023 Surgery Endoscopy Michael Alejandro MD [address] [place] [address] COLONOSCOPY FLEXIBLE PROXIMAL DIAGNOSTIC 03/09/2023 Office Visit Family Medicine Hayes Maurer DO [address] [place] [address] Scheduled Procedures Name Priority Associated Diagnoses Date/Ti [...] 08/09/2022 Influenza Vaccine (FLU shot) (#1) 2022 COLONOSCOPY-EVERY 5 YRS AGES 18-100 12/26/2022 10/17/2022, 12/26/2017, 12/26/2017, Additional history exists Depression Screening, Annual for Pts 12 and Over 03/15/2023 03/15/2022 O2 ASSESSMENT COMPLETED IN PAST YEAR FOR COPD 07/20/2023 07/19/2022 TSH 10/07/2023 10/06/2022, 03/06, 03/04/2021, Additional history exists Lipid Panel 03/15/2027 03/15/2022, 02/05, 10/01/2019, Additional history exists VITAMIN D LEVEL ONCE IN A LIFETIME-USE SMARTSET# [id number] Completed 08/02/2011, 04/24/2009, 06/25/2008, Additional history exists Mammogram Discontinued 12/18/2014, 11/05, 12/22/2006, Additional history exists Pneumococcal Vaccine: 65+ Years Completed 08/10/2017, 06/14/2016 Alpha-1 Antitrypsin Completed 03/15/2022 LUNG CANCER SCREENING - USE SMARTSET 96509 Completed 06/23/2022, 10/15/2019, 2018, Additional history exists GARDASIL-HPV IMMUNIZATION SERIES Aged Out No longer eligible based on patient's age to complete this topic MENINGOCOCCAL (MENACTRA/MENVEO) Aged Out No longer eligible based on patient's age to complete this topic documented as of this encounter Medical Devices Not on filedocumented as of this encounter Procedures Procedure Name Priority Date/Time Associated Diagnosis Comments UPPER GI ENDOSCOPY 10/17/2022 COLONOSCOPY 10/17/2022 documented in this encounter Results * UPPER GI ENDOSCOPY (10/17/2022) 10/17/2022 Mary Jo Hill MD GASTRO UPPER * COLONOSCOPY (10/17/2022) 10/17/2022 Mary Jo Hill MD GASTRO LOWER documented in this encounter Additional Health Concerns Infection Onset Date Last Indicated Resolved Time C. difficile 10/12/2022 10/12/2022 documented as of this encounter Advance Directives Healthcare Agents on File Name Relationship Healthcare Agent Relationshi p Communication Michael Vnae Funk Spouse Health Care Repr esentative (appointed verbally by patient or by statute hierarchy) Care Teams Fire Patroller Relationship Specialty Start Date End Date Hayes Maurer DO [address] [place] [address] PCP - General Family Medicine 04/04/19 documented as of this encounter
--- OUTSIDE RECORDS SUMMARY | 2023-02-27 12:59 | External Medical Summary ---
Author Name Unknown Address Unknown Organization K09:[facility] [place] [address] Laboratory Report Ordering Provider Test Date Status ARLEEN FIGUEROA 11/03/2022 05:45:00 Final Observation Date Value Abnormality Reference (Units ) Status WBC, Total 11/03/2022 05:45:00 7.74 4.00-10.8 0 (K/uL) Final RBC 11/03/2022 05:45:00 2.94 3.85-5.15 (M/uL) Final Hemoglobin 11/03/2022 05:45:00 9.3 Below low normal 12 .0-15.3 (g/dL) Final HCT 11/03/2022 05:45:00 30.3 Below low normal 36. 0-45.2 (%) Final MCV 11/03/2022 05:45:00 103.1 81.5-97.5 (fL) Final MCH 11/03/2022 05:45:00 31.6 27.0-34.0 (pg) Final MCHC 11/03/2022 05:45:00 30.7 32.0-36.0 (g/dL) Final RDW 11/03/2022 05:45:00 15.2 11.5-15.5 (%) Final Platelets 11/03/2022 05:45:00 272 140-400 (K /uL) Final MPV 11/03/2022 05:45:00 10.0 6.6-11.1 ( fL) Final Performing Location [facility] [place] [address]
--- OUTSIDE RECORDS SUMMARY | 2023-02-27 12:59 | External Medical Summary | Summary of Care ---
Author Name Unknown Organization [facility] Address [address] [place] [address] Phone [phone] Care Team Providers Care Side Splitter Name Role Phone Hayes Maurer DO Primary Care Provider Encounter Details Date Type Department Care Team Description 10/17/2022 Result Scan Unspecified Department Mary Jo Hill MD [address] [place] [address] <No scans attached> Allergies Active Allergy Reactions Severity Noted Date Comments Morphine 03/26/1997 Shock, dyspnea Other reaction(s): shock, dspnea Neomycin 04/07/2013 documented as of this encounter (statuses as of 10/19/2022) Medications Medication Sig Dispensed Refills Start Date [...] as of this encounter (statuses as of 10/19/2022) Active Problems Problem Noted Date Medical home [...] as of this encounter (statuses as of 10/19/2022) Resolved Problems Problem Noted Date Resolved Date [...] as of this encounter (statuses as of 10/19/2022) Immunizations Name Administration Dates Next Due COVID-19 [...] Hayes Maurer DO [address] [place] [address] 10/24/2022 Laboratory Laboratory [facility] [address] [place] [address] 11/02/2022 Office Visit Gastroenterology Rufina Alvarez CRNP [address] [place] [address] 11/09/2022 Office Visit Urology Sahil Funk MD [address] [place] [address] [place] [address] 12/13/2022 Office Visit Cardiology Emery Kwan DO [address] [place] [address] 01/17/2023 Hospital Encounter Endoscopy Michael Alejandro MD [address] [place] [address] 01/17/2023 Surgery Endoscopy Michael Alejandro MD [address] [place] [address] COLONOSCOPY FLEXIBLE PROXIMAL DIAGNOSTIC 03/09/2023 Office Visit Family Medicine Hayes Maurer DO [address] [place] [address] Scheduled Procedures Name Priority Associated Diagnoses Date/Ti me COLONOSCOPY FLEXIBLE PROXIMAL DIAGNOSTIC Recall History of colon polyps Special screening for malignant neoplasms, colon 01/17/2023 2:30 PM EST Health Maintenance Due Date Last Done Comments DISCUSS TOBACCO CESSATION (REFER TO SMARTSET #2781) 1950 Hepatitis B (2 of 3 - [...] D LEVEL ONCE IN A LIFETIME-USE SMARTSET# [id number] Completed 08/02/2011, 04/24/2009, 06/25/2008, Additional history exists Mammogram Discontinued 12/18/2014, 11/05, 12/22/2006, Additional history exists Pneumococcal Vaccine: 65+ Years Completed 08/10/2017, 06/14/2016 Alpha-1 Antitrypsin Completed 03/15/2022 LUNG CANCER SCREENING - USE SMARTSET 13394 Completed 06/23/2022, 10/15/2019, 2018, Additional history exists GARDASIL-HPV IMMUNIZATION SERIES Aged Out No longer eligible based on patient's age to complete this topic MENINGOCOCCAL (MENACTRA/MENVEO) Aged Out No longer eligible based on patient's age to complete this topic documented as of this encounter Medical Devices Not on filedocumented as of this encounter Procedures Procedure Name Priority Date/Time Associated Diagnosis Comments PATHOLOGY SCANNED RESULT 10/17/2022 documented in this encounter Results * PATHOLOGY SCANNED RESULT (10/17/2022) 10/17/2022 Mary Jo Hill MD PATHOLOGY documented in this encounter Additional Health Concerns Infection Onset Date Last Indicated Resolved Time C. difficile 10/12/2022 10/12/2022 documented as of this encounter Advance Directives Healthcare Agents on File Name Relationship Healthcare Agent Relationshi p Communication Michael Funk Spouse Health Care Repr esentative (appointed verbally by patient or by statute hierarchy) Care Teams Side Splitter Relationship Specialty Start Date End Date Hayes Maurer DO [address] [place] [address] PCP - General Family Medicine 04/04/19 documented as of this encounter
--- OUTSIDE RECORDS SUMMARY | 2023-02-27 12:59 | External Medical Summary | Summary of Care ---
Author Name Unknown Organization [facility] Address [address] [place] [address] Phone [phone] Care Team Providers Care Oil And Gas Recruiter Name Role Phone Hayes Maurer DO Primary Care Provider Reason for Referral * Evaluate & Treat - Unlimited Visits (Within 3 days (urgent)) - Authorized Specialty Diagnoses / Procedures Referred By Johanny garcia Referred To Contact Dietitian / Nutrition Services Diagnoses Loss of weight Moderate protein-calorie malnutrition (HCC) Hayes Maurer DO [address] [place] [address] Referral ID Status Reason Start Date Expiration Date Visits Requested Visits Authorized [id number] Authorized Specialty Services Required 10/20/2022 999 999 Question Answer Referral Priority Within 3 days (urgent) What condition is the patient being seen for? Disordered Eating Reason for Visit * Reason Onset Date Comments Referral 10/20/2022 Advice 10/20/2022 Encounter Details Date Type Department Care Team Description 10/20/2022 Telephone Family Practice [facility] [address] [place] [address] Hayes Maurer DO [address] [place] [address] Referral; Advice Allergies Active Allergy Reactions Severity Noted Date Comments Morphine 03/26/1997 Shock, dyspnea Other reaction(s): shock, dspnea Neomycin 04/07/2013 documented as of this encounter (statuses as of 10/25/2022) Medications Medication Sig Dispensed Refills Start Date [...] as of this encounter (statuses as of 10/25/2022) Active Problems Problem Noted Date Medical home patient encounter 3 COPD, group B, by GOLD 2017 classificati on 08/15/2022 Overview: Per COPD GOLD Classification History of colon polyps 09/04/2018 Positive colorectal cancer screening i allen Cologuard test 11/07/2017 High risk for fracture due to osteoporos is by DEXA scan 11/01/2016 Pulmonary hypertension 01/17/2007 ADVANCE DIRECTIVE INFORMATION 01/05/2006 Overview: Information offered-patient declined. LUMB-LUMBOSAC DISC DEGEN 06/20/2002 Acquired hypothyroidism 07/24/1997 documented as of this encounter (statuses as of 10/25/2022) Resolved Problems Problem Noted Date Resolved Date [...] as of this encounter (statuses as of 10/25/2022) Immunizations Name Administration Dates Next Due COVID-19 mRNA, LNP-s, No Pre serve, 2-Dose Series (Solarus) 03/04/2021,07/22/2020,07/01/2020 Pneumococcal Conjugate Vacc, 13 Valent (Prevnar) [...] Telephone Encounter - India Wilks RN - 10/25/2022 1:06 PM EDT Patient currently re admitted to [facility]. * Telephone Encounter - Kalani Espinoza LPN - 10/21/2022 6:44 AM EDT I don't know what pt is talking about. Last scripts that were sent to the pharmacy were from GI on 10/13 and all the rest were from 10/06/22 which look like her usual daily meds. Number listed below is for [facility] main number, and I don't know where "[facility]" is? If pt is at [facility], then they will make sure she has the meds she needs while at the hosptial. * Telephone Encounter - JADYN Conner - 10/20/2022 4:40 PM EDT Patient called and said that scripts were never called in, and needs them called in to [facility]. Patient is in [facility]. Room phone number is [phone]. Room 317. [facility] hospital is [phone]. Patient will also need refills put in. * Telephone Encounter - Hayes Maurer DO - 10/20/2022 2:30 PM EDT Just losing weight Her eating has only been disordered because of GI pain related to gastritis and more recently C-diff * Telephone Encounter - Ambar Maurer - 10/20/2022 12:43 PM EDT Urgent referral placed. [facility] does not come up as an option. Please triage and call pt to schedule * Telephone Encounter - Hayes Maurer DO - 10/20/2022 12:32 PM EDT Needs dietary intervention to help gain weight documented in this encounter Plan of Treatment Upcoming Encounters Date Type Specialty Care Team Description 11/02/2022 Office Visit Gastroenterology Rufina Alvarez CRNP [address] [place] [address] 11/09/2022 Office Visit Urology Sahil Funk MD [address] [place] [address] [place] [address] 12/13/2022 Office Visit Cardiology Emery Kwan DO [address] [place] [address] 01/17/2023 Hospital Encounter Endoscopy Michael Alejandro MD [address] [place] [address] 01/17/2023 Surgery Endoscopy Michael Alejandro MD [address] [place] [address] COLONOSCOPY FLEXIBLE PROXIMAL DIAGNOSTIC 03/09/2023 Office Visit Family Medicine Hayes Maurer DO [address] [place] [address] Scheduled Procedures Name Priority Associated Diagnoses Date/Ti me COLONOSCOPY FLEXIBLE PROXIMAL DIAGNOSTIC Recall History of colon polyps Special screening for malignant neoplasms, colon 01/17/2023 2:30 PM EST Scheduled Referrals Name Type Priority Associated Diagnoses Orde r Schedule NUTRITION-CLINICAL DIETITIAN REFERRAL OP Referral Within 3 days (urgent) Loss of weight Moderate protein-calorie malnutrition (HCC) Ordered: 10/20/2022 Health Maintenance Due Date Last Done Comments DISCUSS TOBACCO CESSATION (REFER TO SMARTSET #1850) 1950 Hepatitis B (2 of 3 - [...] D LEVEL ONCE IN A LIFETIME-USE SMARTSET# [id number] Completed 08/02/2011, 04/24/2009, 06/25/2008, Additional history exists Mammogram Discontinued 12/18/2014, 11/05, 12/22/2006, Additional history exists Pneumococcal Vaccine: 65+ Years Completed 08/10/2017, 06/14/2016 Alpha-1 Antitrypsin Completed 03/15/2022 LUNG CANCER SCREENING - USE SMARTSET 85558 Completed 06/23/2022, 10/15/2019, 2018, Additional history exists GARDASIL-HPV IMMUNIZATION SERIES Aged Out No longer eligible based on patient's age to complete this topic MENINGOCOCCAL (MENACTRA/MENVEO) Aged Out No longer eligible based on patient's age to complete this topic documented as of this encounter Medical Devices Not on filedocumented as of this encounter Visit Diagnoses Diagnosis Loss of weight- Primary Moderate protein-calorie malnutrition (HCC) Malnutrition of moderate degree History of colon polyps Personal history of [...] patient or by statute hierarchy) Care Teams Oil And Gas Recruiter Relationship Specialty Start Date End Date Hayes Maurer DO [address] [place] [address] PCP - General Family Medicine 04/04/19 documented as of this encounter
--- OUTSIDE RECORDS SUMMARY | 2023-02-27 12:59 | External Medical Summary | Summary of Care ---
Author Name Unknown Organization [facility] Address [address] [place] [address] Phone [phone] Care Team Providers Care Graphics Artist Name Role Phone Hayes Maurer Primary Care Provider Reason for Visit * Reason Onset Date Comments case management 10/21/2022 [facility] Encounter Details Date Type Department Care Team Description 10/21/2022 [facility] Telephone Family Medicine [address] [address] Abbie Hamilton, RN [address] [place] [address] case management ([facility]) Allergies Active Allergy Reactions Severity Noted Date [...] encounter Miscellaneous Notes * Telephone Encounter - Abbie Hamilton RN - 10/21/2022 2:02 PM EDT Attempted to contact patient for initial KATHREINE assessment. No answer. Left message on answering machine/voicemail requesting call back. Also reminded patient of follow up appointment scheduled for Monday. [facility]. Follow-up Post Discharge Attempted Phone Call First Attempt Call Outcome Left Voicemail/Message Plan To attempt another outreach documented in this encounter Plan of Treatment Upcoming Encounters Date Type Specialty Care Team Description 10/24/2022 Office Visit Family Medicine Hayes Maurer DO [address] [place] [address] 10/24/2022 Laboratory Laboratory Francis, [facility] [address] [place] [address] 11/02/2022 Office Visit Gastroenterology Rufina Alvarez CRNP [address] [place] [address] 11/09/2022 Office Visit Urology Sahil Funk MD [address] [place] [address] [place] [address] 12/13/2022 Office Visit Cardiology Emery Kwan DO [address] [place] [address] 01/17/2023 Hospital Encounter Endoscopy Michael Alejandro MD [address] [place] [address] 01/17/2023 Surgery Endoscopy Michael Alejandro MD [address] [place] [address] COLONOSCOPY FLEXIBLE PROXIMAL DIAGNOSTIC 03/09/2023 Office Visit Family Medicine Hayes Maurer DO [address] [place] [address] Scheduled Procedures Name Priority Associated Diagnoses Date/Ti [...] D LEVEL ONCE IN A LIFETIME-USE SMARTSET# [id number] Completed 08/02/2011, 04/24/2009, 06/25/2008, Additional history exists Mammogram Discontinued 12/18/2014, 11/05, 12/22/2006, Additional history exists Pneumococcal Vaccine: 65+ Years Completed 08/10/2017, 06/14/2016 Alpha-1 Antitrypsin Completed 03/15/2022 LUNG CANCER SCREENING - USE SMARTSET 51513 Completed 06/23/2022, 10/15/2019, 2018, Additional history exists [...] patient or by statute hierarchy) Care Teams Graphics Artist Relationship Specialty Start Date End Date Hayes Maurer DO [address] [place] [address] PCP - General Family Medicine 04/04/19 documented as of this encounter
--- OUTSIDE RECORDS SUMMARY | 2023-02-27 12:59 | External Medical Summary | Summary of Care ---
Author Name Unknown Organization [facility] Address [address] [place] [address] Phone [phone] Care Team Providers Care Master Control Technician Name Role Phone Hayes Maurer Primary Care Provider Reason for Visit * Reason Onset Date Comments Other 10/12/2022 Encounter Details Date Type Department Care Team Description 10/12/2022 Telephone Gastroenterology, [facility] [address] [place] [address] Rufina Alvarez CRNP [address] [place] [address] Other Allergies Active Allergy Reactions Severity Noted Date Comments Morphine 03/26/1997 Shock, dyspnea Other reaction(s): shock, dspnea Neomycin 04/07/2013 documented as of this encounter (statuses as of 10/27/2022) Medications Medication Sig Dispensed Refills Start Date [...] :COPD, group B, by GOLD 2017 classification ([facility]) Inhale 3 mL via nebulizer every 6 hours as needed for Cough, Shortness of Breath or Wheezing. 360 mL 3 10/06/2022 Active Fidaxomicin 200 MG Oral Tablet (Dificid) Take 1 Tablet by mouth in the morning and 1 Tablet before bedtime. 20 Tablet 0 10/12/2022 3 Discontinued documented as of this encounter (statuses as of 10/27/2022) Active Problems Problem Noted Date Medical home [...] as of this encounter (statuses as of 10/27/2022) Resolved Problems Problem Noted Date Resolved Date [...] as of this encounter (statuses as of 10/27/2022) Immunizations Name Administration Dates Next Due COVID-19 [...] c-diff treatment to any of your health toddler caregiver that may beprescribing antibiotic therapy in the future. * Telephone Encounter - Natalie Valle RN - 10/12/2022 3:09 PM EDT ----- Message from FARTUN Villaseñor sent at 10/12/2022 2:28 PM EDT ----- Nurses - pls call pt and inform her that Cdiff is positive. This is a recurrence. Plan to treat with Fidaxomicin 200mg BID x 10 day which I send into [facility] FARTUN Santana documented in this encounter Plan of Treatment Upcoming Encounters Date Type Specialty Care Team Description 11/02/2022 Office Visit Gastroenterology Rufina Alvarez CRNP [address] [place] [address] 11/09/2022 Office Visit Urology Sahil Funk MD [address] [place] [address] [place] [address] 12/13/2022 Office Visit Cardiology Emery Kwan, DO [address] [place] [address] 01/17/2023 Hospital Encounter Endoscopy Michael Alejandro MD [address] [place] [address] 01/17/2023 Surgery Endoscopy Michael Alejandro MD [address] [place] [address] COLONOSCOPY FLEXIBLE PROXIMAL DIAGNOSTIC 03/09/2023 Office Visit Family Medicine Hayes Maurer DO [address] [place] [address] Scheduled Procedures Name Priority Associated Diagnoses Date/Ti me COLONOSCOPY FLEXIBLE PROXIMAL DIAGNOSTIC Recall History of colon polyps Special screening for malignant neoplasms, colon 01/17/2023 2:30 PM EST Health Maintenance Due Date Last Done Comments DISCUSS TOBACCO CESSATION (REFER TO SMARTSET #2211) 1950 Hepatitis B (2 of 3 - [...] D LEVEL ONCE IN A LIFETIME-USE SMARTSET# [id number] Completed 08/02/2011, 04/24/2009, 06/25/2008, Additional history exists Mammogram Discontinued 12/18/2014, 11/05, 12/22/2006, Additional history exists Pneumococcal Vaccine: 65+ Years Completed 08/10/2017, 06/14/2016 Alpha-1 Antitrypsin Completed 03/15/2022 LUNG CANCER SCREENING - USE SMARTSET [id number] Completed 06/23/2022, 10/15/2019, 2018, Additional history exists [...] patient or by statute hierarchy) Care Teams Master Control Technician Relationship Specialty Start Date End Date Hayes Maurer DO [address] [place] [address] PCP - General Family Medicine 04/04/19 documented as of this encounter
--- OUTSIDE RECORDS SUMMARY | 2023-02-27 12:59 | External Medical Summary | Summary of Care ---
Author Name Unknown Organization [facility] Address [address] [place] [address] Phone [phone] Care Team Providers Care Carpenter Assistant Installer Name Role Phone Hayes Maurer Primary Care Provider Reason for Visit * Reason Onset Date Comments Other 10/12/2022 Encounter Details Date Type Department Care Team Description 10/12/2022 Telephone Gastroenterology, [facility] [address] [place] [address] Rufina Alvarez CRNP [address] [place] [address] Other Allergies Active Allergy Reactions Severity Noted [...] :COPD, group B, by GOLD 2017 classification ([facility]) Inhale 3 mL via nebulizer [...] encounter Miscellaneous Notes * Telephone Encounter - Natalie Valle RN - 10/13/2022 1:03 PM EDT Called and LMOM with call back number * Telephone Encounter - Natalie Valle RN - 10/13/2022 11:21 AM EDT treatment plan Changed to Vancomycin pulse tapered therapy. See alternative TE as well and inform her of this as well when she calls back. * Telephone Encounter - Natalie aVlle RN - 10/12/2022 3:12 PM EDT LMOM [...] c-diff treatment to any of your health campground caretaker that may beprescribing antibiotic therapy in the future. * Telephone Encounter - Natalie Valle RN - 10/12/2022 3:09 PM EDT ----- Message from FARTUN Villaseñor sent at 10/12/2022 2:28 PM EDT ----- Nurses - pls call pt and inform her that Cdiff is positive. This is a recurrence. Plan to treat with Fidaxomicin 200mg BID x 10 day which I send into [facility] @ [facility] [place] FARTUN Santana documented in this encounter Plan of Treatment Upcoming Encounters Date Type Specialty Care Team Description 10/24/2022 Office Visit Family Medicine Hayes Maurer DO [address] [place] [address] 10/24/2022 Laboratory Laboratory Evy Francis [address] [place] [address] 11/02/2022 Office Visit Gastroenterology Rufina Alvarez CRNP [address] [place] [address] 11/09/2022 Office Visit Urology Sahil Funk MD [address] [place] [address] [place] [address] 12/13/2022 Office Visit Cardiology Emery Kwan, [address] [place] [address] 01/17/2023 Hospital Encounter Endoscopy Michael Alejandro MD [address] [place] [address] 01/17/2023 Surgery Endoscopy Michael Alejandro MD [address] [place] [address] COLONOSCOPY FLEXIBLE PROXIMAL DIAGNOSTIC 03/09/2023 Office Visit Family Medicine Hayes Maurer, [address] [place] [address] Scheduled Procedures Name Priority Associated Diagnoses Date/Ti me COLONOSCOPY FLEXIBLE PROXIMAL DIAGNOSTIC Recall History of colon polyps Special screening for malignant neoplasms, colon 01/17/2023 2:30 PM EST Health Maintenance Due Date Last Done Comments DISCUSS TOBACCO CESSATION (REFER TO SMARTSET #9761) 1950 Hepatitis B (2 of 3 - [...] D LEVEL ONCE IN A LIFETIME-USE SMARTSET# [id number] Completed 08/02/2011, 04/24/2009, 06/25/2008, Additional history exists Mammogram Discontinued 12/18/2014, 11/05, 12/22/2006, Additional history exists Pneumococcal Vaccine: 65+ Years Completed 08/10/2017, 06/14/2016 Alpha-1 Antitrypsin Completed 03/15/2022 LUNG CANCER SCREENING - USE SMARTSET 48599 Completed 06/23/2022, 10/15/2019, 2018, Additional history exists [...] patient or by statute hierarchy) Care Teams Carpenter Assistant Installer Relationship Specialty Start Date End Date Hayes Maurer DO [address] [place] [address] PCP - General Family Medicine 04/04/19 documented as of this encounter
--- OUTSIDE RECORDS SUMMARY | 2023-02-27 12:59 | External Medical Summary | Summary of Care ---
Author Name Unknown Organization [facility] Address [address] [place] [address] Phone [phone] Care Team Providers Care Mask Inspector Name Role Phone Hayes Maurer DO Primary Care Provider Encounter Details Date Type Department Care Team Description 11/01/2022 Orders Only [facility] [address] [place] [address] Hayes Maurer DO [address] [place] [address] Allergies Active Allergy Reactions Severity Noted Date Comments Morphine 03/26/1997 Shock, dyspnea Other reaction(s): shock, dspnea Neomycin 04/07/2013 documented as of this encounter (statuses as of 11/01/2022) Medications Medication Sig Dispensed Refills Start Date [...] as of this encounter (statuses as of 11/01/2022) Active Problems Problem Noted Date Medical home [...] as of this encounter (statuses as of 11/01/2022) Resolved Problems Problem Noted Date Resolved Date [...] as of this encounter (statuses as of 11/01/2022) Immunizations Name Administration Dates Next Due COVID-19 [...] Alvarez CRNP [address] [place] [address] 11/09/2022 Office Visit Urology Sahil Funk MD [address] [facility] [address] [place] [address] 12/13/2022 Office Visit Cardiology Emery Kwan DO [address] [place] [address] 01/17/2023 Hospital Encounter Endoscopy Michael Alejandro MD [address] [place] [address] 01/17/2023 Surgery Endoscopy Michael Alejandro MD [address] [place] [address] COLONOSCOPY FLEXIBLE PROXIMAL DIAGNOSTIC 03/09/2023 Office Visit Family Medicine Hayes Maurer DO [address] [place] [address] Scheduled Procedures Name Priority Associated Diagnoses Date/Ti [...] D LEVEL ONCE IN A LIFETIME-USE SMARTSET# [id number] Completed 08/02/2011, 04/24/2009, 06/25/2008, Additional history exists Mammogram Discontinued 12/18/2014, 11/05, 12/22/2006, Additional history exists Pneumococcal Vaccine: 65+ Years Completed 08/10/2017, 06/14/2016 Alpha-1 Antitrypsin Completed 03/15/2022 LUNG CANCER SCREENING - USE SMARTSET [id number] Completed 10/29/2022, 06/23/2022, 10/15/2019, Additional history exists GARDASIL-HPV IMMUNIZATION SERIES Aged Out No longer eligible based on patient's age to complete this topic MENINGOCOCCAL (MENACTRA/MENVEO) Aged Out No longer eligible based on patient's age to complete this topic documented as of this encounter Medical Devices Not on filedocumented as of this encounter Procedures Procedure Name Priority Date/Time Associated Diagnosis Comments CT CHEST W CONTRAST Routine 10/29/2022 documented in this encounter Results * CT CHEST W CONTRAST (10/29/2022) Anatomical Region Laterality Modality Chest, Body, Cardio Other 10/29/2022 Tamia Walker MD [address] documented in this encounter Additional Health Concerns Infection Onset Date Last Indicated Resolved Time C. difficile 10/12/2022 10/12/2022 documented as of this encounter Advance Directives Healthcare Agents on File Name Relationship Healthcare Agent Relationshi p Communication Michael Funk Spouse Health Care Repr esentative (appointed verbally by patient or by statute hierarchy) Care Teams Mask Inspector Relationship Specialty Start Date End Date Hayes Maurer DO [address] [place] [address] PCP - General Family Medicine 04/04/19 documented as of this encounter
--- OUTSIDE RECORDS SUMMARY | 2023-02-27 12:59 | External Medical Summary | Summary of Care ---
Author Name Unknown Organization [facility] Address [address] [place] [address] Phone [phone] Care Team Providers Care Saw Grinder Name Role Phone Hayes Maurer DO Primary Care Provider Reason for Referral * Evaluate & Treat - Unlimited Visits (Within 10 days (routine)) - Authorized Specialty Diagnoses / Procedures Referred By Contac t Referred To Contact Otolaryngology Diagnoses Postoperative hypothyroidism Cervical lymphadenopathy Edgar Pack DO [address] [place] [address] Referral ID Status Reason Start Date Expiration Date Visits Requested Visits Authorized [id number] Authorized Specialty Services Required 10/06/[phone] Question Answer Referral Priority Within 10 days (routine) Reason for Referral Thyroid/Parathyroid/Oral Lesions/Head/Neck/Cancer Conditions Specific Condition: Thyroid Has the patient had a Ultrasound Head/Neck and a TSHw/Free T4 in the past 6 months? Yes Comments Thyroid adenopathy * Evaluate & Treat - Unlimited Visits (Within 10 days (routine)) - Authorized Specialty Diagnoses / Procedures Referred By Contact Referred To Contact GI NUTRITION/IM / Gastroenterology Diagnoses Loss of weight Protein-calorie malnutrition, severe (HCC) Edgar Pack DO [address] [place] [address] Referral ID Status Reason Start Date Expiration Date Visits Requested Visits Authorized [id number] Authorized Specialty Services Required 10/06/[phone] Question Answer Referral Priority Within 10 days (routine) For what condition is the patient being seen? Malnutrition Reason for Visit * Reason Onset Date Comments Hospital Follow-Up Pt here for h ospital f/u from 09/25 for norovirus Acute Pt complaints of swelling in bilateral lower extremities since being in the hospital Hospital Follow-Up 10/06/2022 Encounter Details Date Type Department Care Team Description 10/06/2022 Office Visit [facility] [address] [place] [address] Edgar Pack DO [address] [place] [address] Hospital discharge follow-up*; Generalized weakness; Protein-calorie malnutrition, severe (HCC); Loss of weight; Enteritis due to Norovirus; Acute cystitis without hematuria; SVT (supraventricular tachycardia) (HCC); COPD, group B, by GOLD 2017 classification (HCC); Esophagitis; Postoperative hypothyroidism; Cervical lymphadenopathy Allergies Active Allergy Reactions Severity Noted Date [...] or Wheezing. 360 mL 3 10/06/2022 Active Levothyroxine Sodium 75 MCG Oral Tablet (Levoxyl)Indications :Acquired hypothyroidism TAKE 1 TABLET BY MOUTH EVERY DAY AT LEAST 30 MIN BEFORE BREAKFAST OR OTHER MEDICATION 90 Tablet 3 03/15/2022 3 Discontinue d(Medicatio n/Dose Changed) Famotidine 40 MG Oral Tablet (Pepcid) Take 1 Tablet by mouth at bedtime as needed for Heartburn. 30 Tablet 11 08/06/2022 3 Discontinue d(Medicatio n List Clean Up) Metoprolol Tartrate 12.5 MG OR Tablet Take by mouth at bedtime. 0 3 Discontinue d(Medicatio n List Clean Up) Dicyclomine HCl 10 MG Oral Capsule (Bentyl) Take 1 Capsule by mouth 3 times a day as needed for Pain. As needed for abd pain. 0 3 Discontinue d(Medicatio n List Clean Up) Metoprolol Succinate ER 25 MG Oral Tablet Extended Release 24 Hour (toPROL XL) Take 0.5 Tablets by mouth in the morning. 90 Tablet 3 09/08/2022 3 Discontinue d(Refill) Cholestyramine Light 4 GM/DOSE Oral Powder Take by mouth daily as needed for Diarrhea. 0 3 Discontinue d(Medicatio n List Clean Up) documented as of this [...] mRNA, LNP-s, No Pre serve, 2-Dose Series ([employer]) 03/04/2021,07/22/2020,07/01/2020 Pneumococcal Conjugate Vacc, 13 Valent (Prevnar) 06/14/2016 Pneumococcal Polysaccharide PPV23 (Pneumovax) 08/10/2017 TDAP (age 11 and older)(Adacel) 04/02/2011 documented as of this encounter Social History Tobacco Use Types Packs/Day Years Used Date Smoking Tobacco: Some Days Cigarettes 0.6 37 Smokeless Tobacco: Never Tobacco Cessation:Ready to Q uit: No; Counseling Given: No Comments:1/2 per day-started age 35 Alcohol Use Standard Drinks/Week Comments No 0 (1 standard drink = 0.6 oz pur e alcohol) Sex Assigned at Date Recorded Not on file Job Start Date Occupation Industry Not on file Not on file Not on file documented as of this encounter Last Filed Vital Signs Vital Sign Reading Time Taken Comments Blood Pressure 118/54 10/06/2022 3:38 PM EDT Pulse 52 10/06/2022 3:38 PM EDT Temperature 36.3 C (97.4 F) 10/06/2022 3:38 PM ED T Respiratory Rate 16 10/06/2022 3:38 PM EDT Oxygen Saturation 99% 10/06/2022 3:38 PM EDT Inhaled Oxygen Concentration - - Weight 44.5 kg (98 lb) 10/06/2022 3:38 PM EDT Height 160 cm (5' 3") 10/06/2022 3:38 PM EDT Body Mass Index 17.36 10/06/2022 3:38 PM EDT documented in this encounter Patient Instructions * Patient Instructions* Edgar Pack DO - 10/06/2022 4:28 PM EDT Taking Medicine Safely Medicine is given to help treat or prevent illness. But if you don't take it correctly, it might not help. It might even harm you. Your doctor or pharmacist can help you learn the right way to take your medicine. Listed below are some tips to help you take medicine safely. Safety Tips Have a routine for taking each medicine. Make it part of something you do each day, such as brushing your teeth or eating a meal. When you go to the hospital or your doctor's office, bring all your current medicines in their original boxes or bottles. If you can't do that, bring an up-to-date list of your medicines. Do not stop taking a prescription medicine unless your doctor tells you to. Doing so could make your condition worse. Do not share medicines. Let your doctor and pharmacist know of any allergies you have. Taking prescription medicines with alcohol, street drugs, herbs, supplements, or even some lfov-vml-jejzffs medicines can be harmful. Talk to your doctor or pharmacist before using any of these things while taking a prescription medicine. When filling your prescriptions, try using the same pharmacy for all your medicines. If not, let the pharmacist know what medicines you are already on. Keep medicines out of the reach of children and pets. Do not use medicine that has or that doesn't look or smell right. Get rid of it properly. To find out the right way to get rid of medicine: Call your [facility]'s household trash and recycling service and ask if a drug take-back program is available in your community. Call your local pharmacy and ask the right way to get rid of the medicine. Go to http://www.fda.gov/ForConsumers/ConsumerUpdates/nud196885 to learn how to get rid of medicines safely. Using Generic Medicines Medicines have brand names and generic (chemical) names. When a medicine is first made, it is sold only under its brand name. Later, it can be made and sold as a generic. Generic medicines cost less than brand-name medicines and most work just as well. Most people can use the generic medicine instead of the brand-name medicine, unless their doctor says otherwise. 7168-8464 [facility], [address] [place] [address], [place] [address]. All rights reserved. This information is not intended as a substitute for professional medical care. Always follow your healthcare professional's instructions. Coping with Your Diagnosis of a Chronic Health Condition If you have a chronic health condition, you have a problem that may not go away over time. Heart disease, asthma, arthritis, and diabetes are just a few of the chronic conditions that exist. Right now, these conditions have no known cure. But you can take an active role in managing your health. Coping with Your Diagnosis If you've just learned about your health condition, you may be angry, depressed, or afraid. Or you might feel relieved just to know what's wrong. Even if you've known about your health problem for a while, adjusting to it can be hard. But learning about your condition can help you cope. Look for books at your local library. If you have access to a computer, check the Internet. Or contact a group that focuses on your specific problem. Accepting Change Change is hard for most people. Yet right now you may be facing many changes. What you eat or the way you work may change. Your moods, and even your symptoms, might vary from day to day. Although it isn't easy, learning to accept change can help you feel more in control. Taking Control Feeling you have control can make living with your condition easier. Discuss treatment options withyour health care provider. The more you know, the more active you can be in your care. Moving Forward You may wonder whether you will be able to do the things you've always done. That depends on your age, the condition you have, and your goals. To make the most of each day, try to build caring relationships, be active, and eat right. Also, do your best to keep a sense of humor. [employer], [address] [place] [address]. All rights reserved. This information is not intended as a substitute for professional medical care. Always follow your healthcare professional's instructions. Taking an Active Role in Your Medicines Take the time to learn about your medicine. For instance, why are you taking it? What does it do? Work with your doctor or other health care providers to get the answers you need. Talk to your pharmacist about how to take each medicine, and ask for a fact sheet on each one. Ask Questions About Your Medicine What is the name of the medicine? Why do I need to take it? When should I take it? How should I take it: with water? with food? on an empty stomach? How much do I take? What do I do if I miss a dose? What side effects could it cause and which ones should I call the doctor about? Are there any foods or medicines I should avoid while taking this medicine? Keeping track of your medications? Name of medicine: Taken for: Dose: Time(s) to take it: Take an Active Role Fill all your prescriptions at the same pharmacy. This keeps your medicine history in one place. Talk to the pharmacist. Make sure you understand how to take each medicine. Ask for a fact sheet about each one. Tell your doctor and pharmacist about all the prescription and luiy-rzh-tywcswe medicines you take.This includes vitamins and herbal remedies. Tell your doctor and pharmacist if you have any medical conditions or allergies to any medicine or food, or if you are or . Keep a list of all your medicines. Use the sample to the right as a guide for the type of information needed. [employer], [address] [place] [address]. All rights reserved. This information is not intended as a substitute for professional medical care. Always follow your healthcare professional's instructions. documented in this encounter Progress Notes * Edgar Pack DO - 10/06/2022 4:09 PM EDT SUBJECTIVE: Kaci Funk is a 72 year old female. Chief Complaint Patient presents with Hospital Follow-Up Pt here for hospital f/u from 09/25 for norovirus Acute Pt complaints of swelling in bilateral lower extremities since being in the hospital Recent Admission: Patient was recently admitted to [facility]. The date of discharge was 10/01/2022 Discharge report received and reviewed. HPI: Patient is a 72-year-old female with history of COPD, hypothyroidism status post thyroidectomy, and pulmonary hypertension, cervical degenerative disc disease, vitamin B12 deficiency, malnutrition with weight loss, right hydronephrosis. Patient admitted through the ER with complaint of lightheaded and dizzy feeling. Patient had Lasix emptying study done by Urology as outpatient which showed severe obstruction with right side hydronephrosis. Patient was recommended to undergo cystoscopy with stent placement. Patient had CT lung cancer screening June 2019 which was negative. Patient had CT abdomen and pelvis July 2019 which was negative. MRI brain with and without contrast was negative for stroke. CT of chest negative for lung mass. GI consultation recommended outpatient EGD and colonoscopy. Patient advised outpatient mammogram screening. Patient treated for E coli UTI with IV ceftriaxone x4 days and 3 days of Keflex. Patient echocardiogram showing normal EF, right atrium moderately dilated in moderate tricuspid regurgitation. Patient takes metoprolol for history of PAT. Patient had stool PCR positive for norovirus. Patient treated with cholestyramine twice daily. Repeat stool studies positive C diff gene but negative for toxin. TSH 28 with low normal free T4. Levothyroxine was increased 88 mcg daily. Patient denies repeat TSH in 6 weeks. Carotid ultrasound showed thyroid adenopathy. Patient advised ultrasound-guided fine-needle aspiration to be scheduled as outpatient. Patient here with attendance. Review of systems as above Patient Active Problem List Diagnosis Code Acquired hypothyroidism E03.9 LUMB-LUMBOSAC DISC DEGEN M51.37 ADVANCE DIRECTIVE INFORMATION Pulmonary hypertension (HCC) I27.20 High risk for fracture due to osteoporosis by DEXA scan M81.0 Positive colorectal cancer screening using Cologuard test R19.5 History of colon polyps Z86.010 COPD, group B, by GOLD 2017 classification ([facility]) J44.9 Current Outpatient Medications Medication Sig Dispense Refill Levothyroxine Sodium 75 MCG Oral Tablet (Levoxyl) TAKE 1 TABLET BY MOUTH EVERY DAY AT LEAST 30 MIN BEFORE BREAKFAST OR OTHER MEDICATION 90 Tablet 3 Oxybutynin Chloride ER 5 MG Oral Tablet Extended Release 24 Hour (Ditropan XL) Take 1 Tablet by mouth in the morning. 30 Tablet 6 Metoprolol Succinate ER 25 MG Oral Tablet Extended Release 24 Hour (toPROL XL) Take 0.5 Tablets by mouth in the morning. 90 Tablet 3 No current facility-administered medications for this visit. Current and discharge medications have been reconciled. Review of patient's allergies indicates: Allergen Reactions Morphine Shock, dyspnea Other reaction(s): shock, dspnea Neomycin OBJECTIVE: BP 118/54 | Pulse 52 | Temp 36.3 C (97.4 F) | Resp 16 | Ht 1.6 m (5' 3") | Wt 44.5 kg (98 lb) |LMP 06/14/1999 | SpO2 99% | BMI 17.36 kg/m | BSA 1.41 m Review Of Systems: Skin: negative Eyes: negative Ears/Nose/Throat: negative Respiratory: As per HPI Cardiovascular: As per HPI Gastrointestinal: As per HPI Genitourinary: negative Musculoskeletal: pt denies significant joint pain or stiffness Neurologic: negative Psychiatric: negative Hematologic/Lymphatic/Immunologic: negative Endocrine: negative PHYSICAL EXAM: General: alert, healthy, and no distress Head: Normocephalic, No masses, lesions, tenderness or abnormalities Eye Exam: PERRLA, extraocular movements intact, conjunctiva are pink and non- injected, sclera clear Ears: External ears normal, Canals clear, TM's Normal Nose: no mucosal erythema, no mucosal edema, no purulent discharge Oropharynx: no exudate, no erythema, lips, buccal mucosa, and tongue normal, and mucous membranes are moist Neck: supple, no adenopathy, no bruits, thyroid normal size, non-tender, without nodularity Lymph: no palpable lymphadenopathy Heart: regular rate & rhythm, no murmur, and no gallops Lungs: chest symmetric with normal AP diameter, no chest deformities noted, no chest wall tenderness, lungs clear to auscultation Pulses: carotid=2/4 w/o bruits Abdomen: abdomen soft, mild tenderness left lower quadrant, no guarding rebound or rigidity , normal bowel sounds, and no masses or organomegaly Back: back symmetric, no curvature, no costovertebral angle tenderness, range of motion is normal Extremities: less than 2 second capillary refill, no joint deformities, effusion, or inflammation Neuro Exam: alert & oriented x 3 with fluent speech, no focal motor/sensory deficits, gait normal, reflexes normal and symmetric Skin: skin color, texture, turgor are normal, no rashes or significant lesions ASSESSMENT: Hospital discharge follow-up (Primary) - DISCH MED RECON CUR MED LIS Generalized weakness - DISCH MED RECON CUR MED LIS Protein-calorie malnutrition, severe (HCC) - DISCH MED RECON CUR MED LIS - GI NUTRITION REFERRAL OP Loss of weight - DISCH MED RECON CUR MED LIS - GI NUTRITION REFERRAL OP Enteritis due to Norovirus - DISCH MED RECON CUR MED LIS Acute cystitis without hematuria - DISCH MED RECON CUR MED LIS SVT (supraventricular tachycardia) (HCC) - DISCH MED RECON CUR MED LIS - Metoprolol Succinate ER 25 MG Oral Tablet Extended Release 24 Hour (toPROL XL); Take 0.5 Tablets by mouth in the morning. COPD, group B, by GOLD 2017 classification ([facility]) - DISCH MED RECON CUR MED LIS - Ipratropium-Albuterol 0.5-2.5 (3) MG/3ML Inhalation Solution (Duoneb); Inhale 3 mL via nebulizer every 6 hours as needed for Cough, Shortness of Breath or Wheezing. - DURABLE MEDICAL EQUIPMENT Esophagitis - DISCH MED RECON CUR MED LIS - Pantoprazole Sodium 40 MG Oral Tablet Delayed Release (Protonix); Take 1 Tablet by mouth in the morning. Postoperative hypothyroidism - DISCH MED RECON CUR MED LIS - Levothyroxine Sodium 88 MCG Oral Tablet (Levoxyl); Take 1 Tablet by mouth in the morning. (at least 30 min prior to breakfast or other meds). - TSH WITH FREE T4 IF INDICATED; Future; Expected date: 11/20/2022 - OTOLARYNGOLOGY REFERRAL OP Cervical lymphadenopathy - DISCH MED RECON CUR MED LIS - OTOLARYNGOLOGY REFERRAL OP PLAN: Continue present medication(s): Referral(s) to: cardiology, ENT Schedule labs: TSH in 6 weeks Follow up as needed. Edgar Pack DO documented in this encounter Plan of Treatment Upcoming Encounters Date Type Specialty Care Team Description 10/24/2022 Office Visit Family Medicine Hayes Maurer DO [address] [place] [address] 10/24/2022 Laboratory Laboratory Evy Francis [address] [place] [address] 11/02/2022 Office Visit Gastroenterology Rufina Alvarez CRNP [address] [place] [address] 11/09/2022 Office Visit Urology Sahil Funk MD [address] [place] [id number] 12/13/2022 Office Visit Cardiology Emery Kwan DO [address] [place] [address] 01/17/2023 Hospital Encounter Endoscopy Michael Alejandro MD [address] [place] [address] 01/17/2023 Surgery Endoscopy Michael Alejandro MD [address] [place] [address] COLONOSCOPY FLEXIBLE PROXIMAL DIAGNOSTIC 03/09/2023 Office Visit Family Medicine Hayes Maurer DO [address] [place] [address] Scheduled Procedures Name Priority Associated Diagnoses Date/Ti me COLONOSCOPY FLEXIBLE PROXIMAL DIAGNOSTIC Recall History of colon polyps Special screening for malignant neoplasms, colon 01/17/2023 2:30 PM EST Scheduled Referrals Name Type Priority Associated Diagnoses Orde r Schedule GI NUTRITION REFERRAL OP Referral Within 10 days (routine) Loss of weight Protein-calorie malnutrition, severe (HCC) Ordered: 10/06/2022 OTOLARYNGOLOGY REFERRAL OP Referral Within 10 days (routine) Postoperative hypothyroidism Cervical lymphadenopathy Ordered: 10/06/2022 Health Maintenance Due Date Last Done Comments [...] D LEVEL ONCE IN A LIFETIME-USE SMARTSET# [id number] Completed 08/02/2011, 04/24/2009, 06/25/2008, Additional history exists Mammogram Discontinued 12/18/2014, 11/05, 12/22/2006, Additional history exists Pneumococcal Vaccine: 65+ Years Completed 08/10/2017, 06/14/2016 Alpha-1 Antitrypsin Completed 03/15/2022 LUNG CANCER SCREENING - USE SMARTSET [id number] Completed 06/23/2022, 10/15/2019, 2018, Additional history exists GARDASIL-HPV IMMUNIZATION SERIES Aged Out No longer eligible based on patient's age to complete this topic MENINGOCOCCAL (MENACTRA/MENVEO) Aged Out No longer eligible based on patient's age to complete this topic documented as of this encounter Medical Devices Not on filedocumented as of this encounter Results * (ABNORMAL) TSH WITH FREE T4 IF INDICATED (10/06/2022 5:03 PM EDT) TSH 33.00(H) 0.27 - 4.20 uIU/mL 10/06/2022 10:25 PM EDT LABORATORY GM Blood Venous blood specimen / Unknown Venipuncture / Unknown 10/06/2022 5:03 PM EDT 10/06/2022 5:03 PM EDT Edgar Pack DO LAB BLOOD ORDERABLES [facility] [address] [facility] [address] documented in this encounter Visit Diagnoses Diagnosis Hospital discharge follow-up- Primary Other follow-up examination Generalized weakness Other malaise and fatigue Protein-calorie malnutrition, severe (HCC) Other severe protein-calorie malnutrition Loss of weight Enteritis due to Norovirus Enteritis due to [place] virus Acute cystitis without hematuria Acute cystitis SVT (supraventricular tachycardia) (HCC) Other specified cardiac dysrhythmias COPD, group B, by GOLD 2017 classification (HCC) Esophagitis Esophagitis, unspecified Postoperative hypothyroidism Postsurgical hypothyroidism Cervical lymphadenopathy Enlargement of lymph nodes History of colon polyps Personal history of colonic polyps Special screening for malignant neoplasms, colon documented in this encounter Advance Directives Healthcare Agents on File Name Relationship Healthcare Agent Relationshi p Communication Michael Funk Spouse Health Care Repr esentative (appointed verbally by patient or by statute hierarchy) Care Teams Saw Grinder Relationship Specialty Start Date End Date Hayes Maurer DO [address] [place] [address] PCP - General Family Medicine 04/04/19 documented as of this encounter
--- OUTSIDE RECORDS SUMMARY | 2023-02-27 12:59 | External Medical Summary | Summary of Care ---
Author Name Unknown Organization [facility] Address [address] [place] [address] Phone [phone] Care Team Providers Care Radio Technician Name Role Phone Hayes Maurer Primary Care Provider Reason for Visit * Reason Onset Date Comments Other 10/12/2022 Encounter Details Date Type Department Care Team Description 10/12/2022 Telephone Gastroenterology, [facility] [address] [place] [address] Rufina Alvarez CRNP [address] [place] [address] Other Allergies Active Allergy Reactions Severity Noted [...] Telephone Encounter - Natalie Valle RN - 11/03/2022 11:16 AM EDT I spoke with Rufina about this patient. Reports this patient was seen / treated inpatient at [facility]. * Telephone Encounter - Katiuska Askew RN [...] c-diff treatment to any of your health critical care technician that may beprescribing antibiotic therapy in the future. * Telephone Encounter - Natalie Valle RN - 10/12/2022 3:09 PM EDT ----- Message from FARTUN Villaseñor sent at 10/12/2022 2:28 PM EDT ----- Nurses - pls call pt and inform her that Cdiff is positive. This is a recurrence. Plan to treat with Fidaxomicin 200mg BID x 10 day which I send into [facility] @ FARTUN Garcia documented in this encounter Plan of Treatment Upcoming Encounters Date Type Specialty Care Team Description 11/09/2022 Office Visit Urology Sahil Funk MD [address] [place] [address] [place] [address] 11/17/2022 Office Visit Family Medicine Hayes Maurer, [address] [place] [address] 12/13/2022 Office Visit Cardiology Emery Kwan, DO [address] [place] [address] 01/17/2023 Hospital Encounter Endoscopy Michael Alejandro MD [address] [place] [address] 01/17/2023 Surgery Endoscopy Michael Alejandro MD [address] [place] [address] COLONOSCOPY FLEXIBLE PROXIMAL DIAGNOSTIC 03/09/2023 Office Visit Family Medicine Hayes Maurer, [address] [place] [address] Scheduled Procedures Name Priority Associated Diagnoses Date/Ti me COLONOSCOPY FLEXIBLE PROXIMAL DIAGNOSTIC Recall History of colon polyps Special screening for malignant neoplasms, colon 01/17/2023 2:30 PM EST Health Maintenance Due Date Last Done Comments DISCUSS TOBACCO CESSATION (REFER TO SMARTSET #2838) 1950 Hepatitis B (2 of 3 - [...] D LEVEL ONCE IN A LIFETIME-USE SMARTSET# [id number] Completed 08/02/2011, 04/24/2009, 06/25/2008, Additional history exists Mammogram Discontinued 12/18/2014, 11/05, 12/22/2006, Additional history exists Pneumococcal Vaccine: 65+ Years Completed 08/10/2017, 06/14/2016 Alpha-1 Antitrypsin Completed 03/15/2022 LUNG CANCER SCREENING - USE SMARTSET [id number] Completed 10/29/2022, 06/23/2022, 10/15/2019, Additional history exists [...] difficile Rule-Out 10/12/2022 10/12/20222022 2:15 PM EDT COliverio garcia 10/12/2022 10/12/2022 documented as of this encounter Advance Directives Healthcare Agents on File Name Relationship Healthcare Agent Relationshi p Communication Michael Funk Spouse Health Care Repr esentative (appointed verbally by patient or by statute hierarchy) Care Teams Radio Technician Relationship Specialty Start Date End Date Hayes Maurer DO [address] [place] [address] PCP - General Family Medicine 04/04/19 documented as of this encounter
--- OUTSIDE RECORDS SUMMARY | 2023-02-27 12:59 | External Medical Summary | Summary of Care ---
Author Name Unknown Organization [facility] Address [address] [place] [address] Phone [phone] Care Team Providers Care Supervisor Cigar Making Hand Name Role Phone Hayes Maurer Primary Care Provider Reason for Visit * Reason Onset Date Comments Other 10/12/2022 Encounter Details Date Type Department Care Team Description 10/12/2022 Telephone Gastroenterology, [facility] [address] [place] [address] Rufina Alvarez CRNP [address] [place] [address] Other Allergies Active Allergy Reactions Severity Noted [...] c-diff treatment to any of your health overnight caregiver that may beprescribing antibiotic therapy in the future. * Telephone Encounter - Natalie Valle RN - 10/12/2022 3:09 PM EDT ----- Message from FARTUN Villaseñor sent at 10/12/2022 2:28 PM EDT ----- Nurses - pls call pt and inform her that Cdiff is positive. This is a recurrence. Plan to treat with Fidaxomicin 200mg BID x 10 day which I send into [facility] [address] [place] FARTUN Santana documented in this encounter Plan of Treatment Upcoming Encounters Date Type Specialty Care Team Description 11/02/2022 Office Visit Gastroenterology Rufina Alvarez CRNP [address] [place] [address] 11/09/2022 [facility] [address] [place] [address] 12/13/2022 Office Visit Cardiology Emery Kwan DO [address] [place] [address] 01/17/2023 Hospital Encounter Endoscopy Michael Alejandro MD [address] [place] [address] 01/17/2023 Surgery Endoscopy Michael Alejandro MD [address] [place] [address] COLONOSCOPY FLEXIBLE PROXIMAL DIAGNOSTIC 03/09/2023 Office Visit Family Medicine Hayes Maurer DO [address] [place] [address] Scheduled Procedures Name Priority Associated Diagnoses Date/Ti [...] D LEVEL ONCE IN A LIFETIME-USE SMARTSET# [id number] Completed 08/02/2011, 04/24/2009, 06/25/2008, Additional history exists Mammogram Discontinued 12/18/2014, 11/05, 12/22/2006, Additional history exists Pneumococcal Vaccine: 65+ Years Completed 08/10/2017, 06/14/2016 Alpha-1 Antitrypsin Completed 03/15/2022 LUNG CANCER SCREENING - USE SMARTSET 34899 Completed 06/23/2022, 10/15/2019, 2018, Additional history exists [...] or by statute hierarchy) Care Teams Supervisor Cigar Making Hand Relationship Specialty Start Date End Date Hayes Maurer DO [address] [place] [address] PCP - General Family Medicine 04/04/19 documented as of this encounter
--- OUTSIDE RECORDS SUMMARY | 2023-02-27 12:59 | External Medical Summary | Summary of Care ---
Author Name Unknown Organization [facility] Address [address] [place] [address] Phone [phone] Care Team Providers Care Managing Supervisor Name Role Phone Hayes Maurer Primary Care Provider Reason for Visit * Reason Onset Date Comments Other 10/12/2022 Encounter Details Date Type Department Care Team Description 10/12/2022 Telephone Gastroenterology, [facility] [address] [place] [address] Rufina Alvarez CRNP [address] [place] [address] Other Allergies Active Allergy Reactions Severity Noted [...] c-diff treatment to any of your health career services director that may beprescribing antibiotic therapy in the future. * Telephone Encounter - Natalie Valle RN - 10/12/2022 3:09 PM EDT ----- Message from FARTUN Villaseñor sent at 10/12/2022 2:28 PM EDT ----- Nurses - pls call pt and inform her that Cdiff is positive. This is a recurrence. Plan to treat with Fidaxomicin 200mg BID x 10 day which I send into [facility] FARTUN Santana documented in this encounter Plan of Treatment Upcoming Encounters Date Type Specialty Care Team Description 11/02/2022 Office Visit Gastroenterology Rufina Alvarez CRNP [address] [place] [address] 11/09/2022 Office Visit Urology Sahil Funk MD [address] [place] [address] [place] [address] 12/13/2022 Office Visit Cardiology Emery Kwan, DO [address] [place] [address] 01/17/2023 Hospital Encounter Endoscopy Michael Alejandro MD [address] [place] [address] 01/17/2023 Surgery Endoscopy Michael Alejandro MD [address] [place] [address] COLONOSCOPY FLEXIBLE PROXIMAL DIAGNOSTIC 03/09/2023 Office Visit Family Medicine Hayes Maurer DO [address] [place] [address] Scheduled Procedures Name Priority Associated Diagnoses Date/Ti me COLONOSCOPY FLEXIBLE PROXIMAL DIAGNOSTIC Recall History of colon polyps Special screening for malignant neoplasms, colon 01/17/2023 2:30 PM EST Health Maintenance Due Date Last Done Comments DISCUSS TOBACCO CESSATION (REFER TO SMARTSET #8111) 1950 Hepatitis B (2 of 3 - [...] D LEVEL ONCE IN A LIFETIME-USE SMARTSET# [id number] Completed 08/02/2011, 04/24/2009, 06/25/2008, Additional history exists Mammogram Discontinued 12/18/2014, 11/05, 12/22/2006, Additional history exists Pneumococcal Vaccine: 65+ Years Completed 08/10/2017, 06/14/2016 Alpha-1 Antitrypsin Completed 03/15/2022 LUNG CANCER SCREENING - USE SMARTSET 54525 Completed 06/23/2022, 10/15/2019, 2018, Additional history exists [...] patient or by statute hierarchy) Care Teams Managing Supervisor Relationship Specialty Start Date End Date Hayes Maurer DO [address] [place] [address] PCP - General Family Medicine 04/04/19 documented as of this encounter
--- OUTSIDE RECORDS SUMMARY | 2023-02-27 13:00 | External Medical Summary | Summary of Care ---
Author Name Unknown Organization [facility] Address [address] [place] [address] Phone [phone] Care Team Providers Care Store Deli Manager Name Role Phone Hayes Maurer DO Primary Care Provider Reason for Visit * Reason Onset Date Comments Medication Problem 10/13/2022 Dificid Encounter Details Date Type Department Care Team Description 10/13/2022 Telephone Gastroenterology, [facility] [address] [place] [address] Rufina Man CRNP [address] [place] [address] Medication Problem (Dificid) Allergies Active Allergy Reactions Severity Noted Date Comments Morphine 03/26/1997 Shock, dyspnea Other reaction(s): shock, dspnea Neomycin 04/07/2013 documented as of this encounter (statuses as of 10/13/2022) Medications Medication Sig Dispensed Refills Start Date [...] :COPD, group B, by GOLD 2017 classification (HCC) [...] 2 weeks. 84 Capsule 0 10/13/2022 Active Fidaxomicin 200 MG Oral Tablet (Dificid) Take 1 Tablet by mouth in the morning and 1 Tablet before bedtime. 20 Tablet 0 10/12/2022 10/14/19 23 Discontinued documented as of this encounter (statuses as of 10/13/2022) Active Problems Problem Noted Date Medical home [...] as of this encounter (statuses as of 10/13/2022) Resolved Problems Problem Noted Date Resolved Date [...] as of this encounter (statuses as of 10/13/2022) Immunizations Name Administration Dates Next Due COVID-19 mRNA, LNP-s, No Pre serve, 2-Dose Series ([employer]) 03/04/2021,07/22/2020,07/01/2020 Hepatitis B Vaccine 03/26/1997 Pneumococcal Conjugate [...] Encounter - Natalie Valle RN - 10/13/2022 11:19 AM EDT Added to ongoing Telephone encounter . * Addendum Note - FARTUN Villaseñor - 10/13/2022 10:32 AM EDTAddended by: RUFINA MAN on: 10/13/2022 10:32 AM Modules accepted: Orders * Telephone Encounter - FARTUN Villaseñor - 10/13/2022 10:30 AM EDT Will change treatment plan to Vancomycin pulse tapered therapy. FARTUN Santana * Telephone Encounter - Morris Travis RN - 10/13/2022 9:44 AM EDT Rufina, received fax from patients pharmacy. Pt has medicare so medication doesn't require an auth but her copay is $1500. documented in this encounter Plan of Treatment Upcoming Encounters Date Type Specialty Care Team Description 10/18/2022 Imaging Radiology 10/18/2022 Laboratory Laboratory [facility] [address] [place] [address] 10/18/2022 Office Visit Family Medicine Lalit Wiggins CRNP [address] [place] [address] 10/21/2022 Office Visit Family Medicine Zaira Betancourt CRNP [address] [place] [address] 11/02/2022 Office Visit Gastroenterology Rufina Man CRNP [address] [place] [address] 11/09/2022 Office Visit Urology Sahil Funk MD [address] [facility] [address] [place] [address] 12/13/2022 Office Visit Cardiology Emery Kwan, [address] [place] [address] 01/17/2023 Hospital Encounter Endoscopy Michael Alejandro MD [address] [place] [address] 01/17/2023 Surgery Endoscopy Michael Alejandro MD [address] [place] [address] COLONOSCOPY FLEXIBLE PROXIMAL DIAGNOSTIC 03/09/2023 Office Visit Family Medicine Hayes Maurer DO [address] [place] [address] Scheduled Procedures Name Priority Associated Diagnoses Date/Ti me COLONOSCOPY FLEXIBLE PROXIMAL DIAGNOSTIC Recall History of colon polyps Special screening for malignant neoplasms, colon 01/17/2023 2:30 PM EST Health Maintenance Due Date Last Done Comments DISCUSS TOBACCO CESSATION (REFER TO SMARTSET #3419) 1950 Hepatitis B (2 of 3 - [...] 2022 COLONOSCOPY-EVERY 5 YRS AGES 18-100 12/26/2022 12/26/2017, 12/26/2017, 05/22/2007 Depression Screening, Annual for Pts 12 and Over 03/15/2023 03/15/2022 O2 ASSESSMENT COMPLETED IN PAST YEAR FOR COPD 07/20/2023 07/19/2022 TSH 10/07/2023 10/06/2022, 03/06, 03/04/2021, Additional history exists Lipid Panel 03/15/2027 03/15/2022, 02/05, 10/01/2019, Additional history exists VITAMIN D LEVEL ONCE IN A LIFETIME-USE SMARTSET# [id number] Completed 08/02/2011, 04/24/2009, 06/25/2008, Additional history exists Mammogram Discontinued 12/18/2014, 11/05, 12/22/2006, Additional history exists Pneumococcal Vaccine: 65+ Years Completed 08/10/2017, 06/14/2016 Alpha-1 Antitrypsin Completed 03/15/2022 LUNG CANCER SCREENING - USE SMARTSET 23488 Completed 06/23/2022, 10/15/2019, 2018, Additional history exists [...] Healthcare Agent Relationshi p Communication Michael Cifuentes [place] Spouse Health Care Repr esentative (appointed verbally by patient or by statute hierarchy) Care Teams Store Deli Manager Relationship Specialty Start Date End Date Hayes Maurer DO [address] [place] [address] PCP - General Family Medicine 04/04/19 documented as of this encounter
--- OUTSIDE RECORDS SUMMARY | 2023-02-27 13:00 | External Medical Summary | Summary of Care ---
Author Name Unknown Organization [facility] Address [address] [place] [address] Phone [phone] Care Team Providers Care Vaccinator Name Role Phone Hayes Maurer DO Primary Care Provider Reason for Visit * Reason Onset Date Comments Medication Refill 10/08/2022 Encounter Details Date Type Department Care Team Description 10/08/2022 Refill Family Practice [facility] [address] [place] [address] Hayes Maurer DO [address] [place] [address] Allergies Active Allergy Reactions Severity Noted Date Comments Morphine 03/26/1997 Shock, dyspnea Other reaction(s): shock, dspnea Neomycin 04/07/2013 documented as of this encounter (statuses as of 10/08/2022) Medications Medication Sig Dispensed Refills Start Date [...] as of this encounter (statuses as of 10/08/2022) Active Problems Problem Noted Date Medical home [...] as of this encounter (statuses as of 10/08/2022) Resolved Problems Problem Noted Date Resolved Date [...] as of this encounter (statuses as of 10/08/2022) Immunizations Name Administration Dates Next Due COVID-19 [...] * Telephone Encounter - CON Ashley - 10/08/2022 10:19 AM EDT RE Pantoprazole Sodium 40 MG Oral Tablet Delayed Release (Protonix Pt said pharmacy said she picked these up She denies that I told her to speak to the pharmacist and ask for proof - signature If she did pick them up She needs to call insurance for an override Thank you for your assistance Kinza Zaragoza Cashier General II [facility] ([facility] (Former[facility]) 10/08/2022,10:21 AM documented in this encounter Plan of Treatment Upcoming Encounters Date Type Specialty Care Team Description 10/18/2022 Imaging Radiology 10/18/2022 Laboratory Laboratory [facility] [address] [place] [address] 10/18/2022 Office Visit Family Medicine Lalit Wiggins CRNP [address] [place] [address] 10/21/2022 Office Visit Family Medicine Zaira Betancourt CRNP [address] [place] [address] 11/02/2022 Office Visit Gastroenterology Rufina Alvarez CRNP [address] [place] [address] 11/09/2022 Office Visit Urology Sahil Funk MD [address] [place] [address] [place] [address] 12/13/2022 Office Visit Cardiology Emery Kwan, [address] [place] [address] 01/17/2023 Hospital Encounter Endoscopy Michael Alejandro MD [address] [place] [address] 01/17/2023 Surgery Endoscopy Michael Alejandro MD [address] [place] [address] COLONOSCOPY FLEXIBLE PROXIMAL DIAGNOSTIC 03/09/2023 Office Visit Family [facility] Hayes Maurre, [address] [place] [address] Scheduled Procedures Name Priority Associated Diagnoses Date/Ti me COLONOSCOPY FLEXIBLE PROXIMAL DIAGNOSTIC Recall History of colon polyps Special screening for malignant neoplasms, colon 01/17/2023 2:30 PM EST Health Maintenance Due Date Last Done Comments DISCUSS TOBACCO CESSATION (REFER TO SMARTSET #3623) 1950 Hepatitis B (2 of 3 - [...] D LEVEL ONCE IN A LIFETIME-USE SMARTSET# [id number] Completed 08/02/2011, 04/24/2009, 06/25/2008, Additional history exists Mammogram Discontinued 12/18/2014, 11/05, 12/22/2006, Additional history exists Pneumococcal Vaccine: 65+ Years Completed 08/10/2017, 06/14/2016 Alpha-1 Antitrypsin Completed 03/15/2022 LUNG CANCER SCREENING - USE SMARTSET 85278 Completed 06/23/2022, 10/15/2019, 2018, Additional history exists [...] patient or by statute hierarchy) Care Teams Vaccinator Relationship Specialty Start Date End Date Hayes Maurer DO [address] [place] [address] PCP - General Family Medicine 04/04/19 documented as of this encounter
--- OUTSIDE RECORDS SUMMARY | 2023-02-27 13:00 | External Medical Summary | Summary of Care ---
Author Name Unknown Organization [facility] Address [address] [place] [address] Phone [phone] Care Team Providers Care Vat Cleaner Name Role Phone Hayes Maurer Primary Care Provider Reason for Visit * Reason Onset Date Comments Other 10/12/2022 Encounter Details Date Type Department Care Team Description 10/12/2022 Telephone Gastroenterology, [facility] [address] [place] [address] Rufina Alvarez CRNP [address] [place] [address] Other Allergies Active Allergy Reactions Severity Noted [...] :COPD, group B, by GOLD 2017 classification ([facility]) Inhale 3 mL via nebulizer every 6 [...] c-diff treatment to any of your health director of career resources that may beprescribing antibiotic therapy in the [...] send into [facility] FARTUN Santana documented in this encounter Plan of Treatment Upcoming Encounters Date Type Specialty Care Team Description 10/18/2022 Imaging Radiology 10/18/2022 Laboratory Laboratory [facility] [address] [place] [address] 10/18/2022 Office Visit Family Medicine Lalit Wiggins CRNP [address] [place] [address] 10/21/2022 Office Visit Family Medicine Zaira Betancourt CRNP [address] [place] [address] 11/02/2022 Office Visit Gastroenterology Rufina Alvarez CRNP [address] [place] [address] 11/09/2022 Office Visit Urology Sahil Funk MD [address] [place] [address] [place] [address] 12/13/2022 Office Visit Cardiology Emery Kwan, [address] [place] [address] 01/17/2023 Hospital Encounter Endoscopy Michael Alejandro MD [address] [place] [address] 01/17/2023 Surgery Endoscopy Michael Alejandro MD [address] [place] [address] COLONOSCOPY FLEXIBLE PROXIMAL DIAGNOSTIC 03/09/2023 Office Visit Family Medicine Hayes Maurer DO [address] [place] [address] Scheduled Procedures Name Priority Associated Diagnoses Date/Ti me COLONOSCOPY FLEXIBLE PROXIMAL DIAGNOSTIC Recall History of colon polyps Special screening for malignant neoplasms, colon 01/17/2023 2:30 PM EST Health Maintenance Due Date Last Done Comments DISCUSS TOBACCO CESSATION (REFER TO SMARTSET #5141) 1950 Hepatitis B (2 of 3 - [...] D LEVEL ONCE IN A LIFETIME-USE SMARTSET# [id number] Completed 08/02/2011, 04/24/2009, 06/25/2008, Additional history exists Mammogram Discontinued 12/18/2014, 11/05, 12/22/2006, Additional history exists Pneumococcal Vaccine: 65+ Years Completed 08/10/2017, 06/14/2016 Alpha-1 Antitrypsin Completed 03/15/2022 LUNG CANCER SCREENING - USE SMARTSET 14060 Completed 06/23/2022, 10/15/2019, 2018, Additional history exists [...] Healthcare Agent Relationshi p Communication Michael Cifuentes [place] Spouse Health Care Repr esentative (appointed verbally by patient or by statute hierarchy) Care Teams Vat Cleaner Relationship Specialty Start Date End Date Hayes Maurer DO [address] [place] [address] PCP - General Family Medicine 04/04/19 documented as of this encounter
--- OUTSIDE RECORDS SUMMARY | 2023-02-27 13:00 | External Medical Summary ---
Author Name Unknown Address Unknown Organization K01:[facility] - [facility] [address] [place] [address] Laboratory Report Ordering Provider Test Date Status MAGDA RUBY 10/12/2022 07:11:27 Final Observation Date Value Abnormality Reference (Units) Status Source 10/12/2022 07:11:27 Semi-liquid Final Clostridioides difficile toxin and BI-NAP1-027 strain DNA panel - Stool by TEODORO with probe detection 10/12/2022 07:11:27 Positive for C. difficile toxin B gene DNA by PCR (Amplified Probe). Presumptive negative for C. difficile 027-NAP1-B1 strain by PCR (Amplified Probe). Abnormal Negative Final Performing Location [facility] - [address] [place] [address]
--- OUTSIDE RECORDS SUMMARY | 2023-02-27 13:00 | External Medical Summary | Summary of Care ---
Author Name Unknown Organization [facility] Address [address] [place] [address] Phone [phone] Care Team Providers Care Balancing Machine Set Up Worker Name Role Phone Hayes Maurer DO Primary Care Provider Reason for Visit * Reason Onset Date Comments Medication Problem 10/13/2022 Dificid Encounter Details Date Type Department Care Team Description 10/13/2022 Telephone Gastroenterology, [facility] [address] [place] [address] Rufina Man CRNP [address] [place] [address] Medication Problem (Dificid) Allergies Active Allergy Reactions [...] mRNA, LNP-s, No Pre serve, 2-Dose Series ([employer]) 03/04/2021,07/22/2020,07/01/2020 Hepatitis B Vaccine 03/26/1997 Pneumococcal Conjugate [...] encounter Miscellaneous Notes * Addendum Note - FARTUN Villaseñor - [...] [facility] [address] [place] [address] 10/18/2022 Office Visit Family Medicine Lalit Wiggins CRNP [address] [place] [address] 10/21/2022 Office Visit Family Medicine Zaira Betancourt CRNP [address] [place] [address] 11/02/2022 Office Visit Gastroenterology Rufina Man CRNP [address] [place] [address] 11/09/2022 Office Visit Urology Sahil Funk MD [address] [facility] [address] [place] [address] 12/13/2022 Office Visit Cardiology Emery Kwan DO [address] [place] [address] 01/17/2023 Hospital Encounter Endoscopy Michael Alejandro MD [address] [place] [address] 01/17/2023 Surgery Endoscopy Michael Alejandro MD [address] [place] [address] COLONOSCOPY FLEXIBLE PROXIMAL DIAGNOSTIC 03/09/2023 Office Visit Family Medicine Hayes Maurer DO [address] [place] [address] Scheduled Procedures Name Priority Associated Diagnoses Date/Ti [...] D LEVEL ONCE IN A LIFETIME-USE SMARTSET# [id number] Completed 08/02/2011, 04/24/2009, 06/25/2008, Additional history exists Mammogram Discontinued 12/18/2014, 11/05, 12/22/2006, Additional history exists Pneumococcal Vaccine: 65+ Years Completed 08/10/2017, 06/14/2016 Alpha-1 Antitrypsin Completed 03/15/2022 LUNG CANCER SCREENING - USE SMARTSET [id number] Completed 06/23/2022, 10/15/2019, 2018, Additional history exists [...] patient or by statute hierarchy) Care Teams Balancing Machine Set Up Worker Relationship Specialty Start Date End Date Hayes Maurer DO [address] [place] [address] PCP - General Family Medicine 04/04/19 documented as of this encounter
--- OUTSIDE RECORDS SUMMARY | 2023-02-27 13:00 | External Medical Summary | Summary of Care ---
Author Name Unknown Organization [facility] Address [address] [place] [address] Phone [phone] Care Team Providers Care Sr. Vendor Management Associate Name Role Phone Hayes Maurer DO Primary Care Provider Encounter Details Date Type Department Care Team Description 10/12/2022 Orders Only Gastroenterology, [facility] [address] [place] [address] Rufina Alvarez CRNP [address] [place] [address] Allergies Active Allergy Reactions Severity Noted Date Comments Morphine 03/26/1997 Shock, dyspnea Other reaction(s): shock, dspnea Neomycin 04/07/2013 documented as of this encounter (statuses as of 10/12/2022) Medications Medication Sig Dispensed Refills Start Date [...] Tablet before bedtime. 20 Tablet 0 10/12/2022 Active documented as of this encounter (statuses as of 10/12/2022) Active Problems Problem Noted Date Medical home [...] as of this encounter (statuses as of 10/12/2022) Resolved Problems Problem Noted Date Resolved Date [...] as of this encounter (statuses as of 10/12/2022) Immunizations Name Administration Dates Next Due COVID-19 [...] Laboratory Evy Francis [address] [place] [address] 10/18/2022 Office Visit Family Medicine Lalit Wiggins CRNP [address] [place] [address] 10/21/2022 Office Visit Family Medicine Zaira Betancourt CRNP [address] [place] [address] 11/02/2022 Office Visit Gastroenterology Rufina Alvarez CRNP [address] [place] [address] 11/09/2022 Office Visit Urology Sahil Funk MD [address] [place] [address] 12/13/2022 Office Visit Cardiology Emery Kwan, DO [address] [place] [address] 01/17/2023 Hospital Encounter Endoscopy Michael Alejandro MD [address] [place] [address] 01/17/2023 Surgery Endoscopy Michael Alejandro MD [address] [place] [address] COLONOSCOPY FLEXIBLE PROXIMAL DIAGNOSTIC 03/09/2023 Office Visit Family Medicine Hayes Maurer DO [address] [place] [address] Scheduled Procedures Name Priority Associated Diagnoses Date/Ti me COLONOSCOPY FLEXIBLE PROXIMAL DIAGNOSTIC Recall History of colon polyps Special screening for malignant neoplasms, colon 01/17/2023 2:30 PM EST Health Maintenance Due Date Last Done Comments DISCUSS TOBACCO CESSATION (REFER TO SMARTSET #6951) 1950 Hepatitis B (2 of 3 - [...] D LEVEL ONCE IN A LIFETIME-USE SMARTSET# [id number] Completed 08/02/2011, 04/24/2009, 06/25/2008, Additional history exists Mammogram Discontinued 12/18/2014, 11/05, 12/22/2006, Additional history exists Pneumococcal Vaccine: 65+ Years Completed 08/10/2017, 06/14/2016 Alpha-1 Antitrypsin Completed 03/15/2022 LUNG CANCER SCREENING - USE SMARTSET [id number] Completed 06/23/2022, 10/15/2019, 2018, Additional history exists [...] Indicated Resolved Time Gastrointestinal Rule-Out 10/12/2022 10/12/2022 C. difficile Rule-Out 10/12/2022 10/12/20222022 2:15 PM EDT C. difficile 10/12/2022 10/12/2022 documented as of this encounter Advance Directives Healthcare Agents on File Name Relationship Healthcare Agent Relationshi p Communication Michael Funk Spouse Health Care Repr esentative (appointed verbally by patient or by statute hierarchy) Care Teams Sr. Vendor Management Associate Relationship Specialty Start Date End Date Hayes Maurer DO [address] [place] [address] PCP - General Family Medicine 04/04/19 documented as of this encounter
--- OUTSIDE RECORDS SUMMARY | 2023-02-27 13:00 | External Medical Summary | Summary of Care ---
Author Name Unknown Organization [facility] Address [address] [place] [address] Phone [phone] Care Team Providers Care Apparel Cutter Name Role Phone Hayes Maurer Primary Care Provider Reason for Visit * Reason Comments case management Encounter Details Date Type Department Care Team Description 10/06/2022 Training And Development DirectorBobbin Cleaning Machine Operator [facility] [address] [place] [id number] India Wilks, electro mechanical assembler care planning/counseling discussion* Allergies Active Allergy Reactions Severity Noted Date Comments Morphine 03/26/1997 Shock, dyspnea Other reaction(s): shock, dspnea Neomycin 04/07/2013 documented as of this encounter (statuses as of 10/07/2022) Medications Medication Sig Dispensed Refills Start Date [...] as of this encounter (statuses as of 10/07/2022) Active Problems Problem Noted Date Medical home [...] as of this encounter (statuses as of 10/07/2022) Resolved Problems Problem Noted Date Resolved Date [...] as of this encounter (statuses as of 10/07/2022) Immunizations Name Administration Dates Next Due COVID-19 [...] Progress Notes * India Wilks RN - 10/06/2022 4:58 PM EDT CM COMP S: met with patient and her spouse in the clinic. She was given tubi employment case manager to apply to lower extremity edema. She still declines home health, PT or a walker to assist with falls. Appetite is better. Has never had a nebulizer machine in the past. Denies any SDOH needs also negative PHQ-2 screening. Does not have POA in place, but would designate Michael as healthcare commercial sales representative. Was given ACP booklet at appointment. O: KATHERINE week1 A: Alert and oriented P: Reinforce care plan previously established, monitor and report falls with injury, dizzines or weakness, worsening diarrhea. Dyspnea. documented in this encounter Miscellaneous Notes * ACP (Advance Care Planning) - India Wilks RN - 10/07/2022 8:57 AM EDT Patient-centered Communication Patient was given ACP booklet and LW form at office today. Would like her Michael Funk to be healthcare commercial sales representative. Instructed to bring back completed form to be scanned into chart. India Wilks RN documented in this encounter Plan of Treatment Upcoming Encounters Date Type Specialty Care Team Description 10/18/2022 Imaging Radiology 10/18/2022 Laboratory Laboratory Tito Evy Arrington [address] [place] [address] 10/18/2022 Office Visit Family Medicine Lalit Wiggins CRNP [address] [place] [address] 10/21/2022 Office Visit Family Medicine Zaira Betancourt CRNP [address] [place] [address] 11/02/2022 Office Visit Gastroenterology Rufina Alvarez CRNP [address] [place] [address] 11/09/2022 Office Visit Urology Sahil Funk MD [address] [place] [address] 12/13/2022 Office Visit Cardiology Emery Kwan DO [address] [place] [address] 01/17/2023 Hospital Encounter Endoscopy Michael Alejandro MD [address] [place] [address] 01/17/2023 Surgery Endoscopy Michael Alejandro MD [address] [place] [address] COLONOSCOPY FLEXIBLE PROXIMAL DIAGNOSTIC 03/09/2023 Office Visit Family Medicine Hayes Maurer DO [address] [place] [address] Scheduled Procedures Name Priority Associated Diagnoses Date/Ti me COLONOSCOPY FLEXIBLE PROXIMAL DIAGNOSTIC Recall History of colon polyps Special screening for malignant neoplasms, colon 01/17/2023 2:30 PM EST Health Maintenance Due Date Last Done Comments DISCUSS TOBACCO CESSATION (REFER TO SMARTSET #6715) 1950 Hepatitis B (2 of 3 - [...] D LEVEL ONCE IN A LIFETIME-USE SMARTSET# [id number] Completed 08/02/2011, 04/24/2009, 06/25/2008, Additional history exists Mammogram Discontinued 12/18/2014, 11/05, 12/22/2006, Additional history exists Pneumococcal Vaccine: 65+ Years Completed 08/10/2017, 06/14/2016 Alpha-1 Antitrypsin Completed 03/15/2022 LUNG CANCER SCREENING - USE SMARTSET [id number] Completed 06/23/2022, 10/15/2019, 2018, Additional history exists GARDASIL-HPV IMMUNIZATION SERIES Aged Out No longer eligible based on patient's age to complete this topic MENINGOCOCCAL (MENACTRA/MENVEO) Aged Out No longer eligible based on patient's age to complete this topic documented as of this encounter Medical Devices Not on filedocumented as of this encounter Visit Diagnoses Diagnosis Advanced care planning/counseling discussion- Primary Other specified counseling History of colon polyps Personal history of colonic polyps Special screening for malignant neoplasms, colon documented in this encounter Advance Directives Healthcare Agents on File Name Relationship Healthcare Agent Relationshi p Communication Michael Vane Good Spouse Health Care Repr esentative (appointed verbally by patient or by statute hierarchy) Care Teams Apparel Cutter Relationship Specialty Start Date End Date Hayes Maurer DO [address] [place] [address] PCP - General Family Medicine 04/04/19 documented as of this encounter
--- OUTSIDE RECORDS SUMMARY | 2023-02-27 13:00 | External Medical Summary | Summary of Care ---
Author Name Unknown Organization [facility] Address [address] [place] [address] Phone [phone] Care Team Providers Care Paperhanger Contractor Name Role Phone Hayes Maurer DO Primary Care Provider Reason for Visit * Reason Onset Date Comments Advice 10/08/2022 Encounter Details Date Type Department Care Team Description 10/08/[address] [facility] [address] [place] [address] Hayes Maurer DO [address] [place] [address] Advice Allergies Active Allergy Reactions Severity Noted Date Comments Morphine 03/26/1997 Shock, dyspnea Other reaction(s): shock, dspnea Neomycin 04/07/2013 documented as of this encounter (statuses as of 10/10/2022) Medications Medication Sig Dispensed Refills Start Date [...] as of this encounter (statuses as of 10/10/2022) Active Problems Problem Noted Date Medical home [...] as of this encounter (statuses as of 10/10/2022) Resolved Problems Problem Noted Date Resolved Date [...] hypertension 12/08/2006 7 FAM HX-DIABETES MELLITUS 04/13/2000 01/09/2 009 Perimenopause 07/24/1997 03/14/2008 documented as of this encounter (statuses as of 10/10/2022) Immunizations Name Administration Dates Next Due COVID-19 [...] Telephone Encounter - India Wilks RN - 10/10/2022 3:35 PM EDT 1. Follow-up Routine 2. Attempted Phone Call Second Attempt 3. Call Outcome Left Voicemail/Message 4. Plan To attempt another outreach * Telephone Encounter - India Wilks RN - 10/10/2022 8:22 AM EDT [facility] discharge instructions list the patient can use cholestyramine BID PRN for up to 14 days. Attempted to call patient back to discuss. No Answer, LMTRC. * Telephone Encounter - Hayes Maurer DO - 10/08/2022 12:48 PM EDT Certainly agreeable But can we also get input from GI who sees patient? * Telephone Encounter - Garry Waters LPN - 10/08/2022 11:55 AM EDT Provider to address: DO Chriss Reason for Call: Advice Contact: Telephone Call Contact Type: Medication Outcome: Sent to PCP See Note Below Total Time including non face to face (minutes): 5 * Telephone Encounter - JADYN Jefferson - 10/08/2022 9:47 AM EDT Patient prescribed cholestyramine in hospital for diarrhea, worked for a few days but diarrhea has returned, wants to know if she should continue/resume medication. Call back #[phone] documented in this encounter Plan of Treatment Upcoming Encounters Date Type Specialty Care Team Description 10/18/2022 Imaging Radiology 10/18/2022 Laboratory Laboratory [facility], [facility] [address] [place] [address] 10/18/2022 Office Visit Family Medicine Lalit Wiggins CRNP [address] [place] [address] 10/21/2022 Office Visit Family Medicine Zaira Betancourt CRNP [address] [place] [address] 11/02/2022 Office Visit Gastroenterology Rufina Alvarez CRNP [address] [place] [address] 11/09/2022 Office Visit Urology Sahil Funk MD [address] [place] [address] 12/13/2022 Office Visit Cardiology Emery Kwan DO [address] [place] [address] 01/17/2023 Hospital Encounter Endoscopy Michael Alejandro MD [address] [place] [address] 01/17/2023 Surgery Endoscopy Michael Alejandro MD [address] [place] [address] COLONOSCOPY FLEXIBLE PROXIMAL DIAGNOSTIC 03/09/2023 Office Visit Family Medicine Hayes Maurer, DO [address] [place] [address] Scheduled Procedures Name Priority Associated Diagnoses Date/Ti [...] D LEVEL ONCE IN A LIFETIME-USE SMARTSET# [id number] Completed 08/02/2011, 04/24/2009, 06/25/2008, Additional history exists Mammogram Discontinued 12/18/2014, 11/05, 12/22/2006, Additional history exists Pneumococcal Vaccine: 65+ Years Completed 08/10/2017, 06/14/2016 Alpha-1 Antitrypsin Completed 03/15/2022 LUNG CANCER SCREENING - USE SMARTSET [id number] Completed 06/23/2022, 10/15/2019, 2018, Additional history exists [...] patient or by statute hierarchy) Care Teams Paperhanger Contractor Relationship Specialty Start Date End Date Hayes Maurer DO [address] [place] [address] PCP - General Family Medicine 04/04/19 documented as of this encounter
--- OUTSIDE RECORDS SUMMARY | 2023-02-27 13:00 | External Medical Summary | Summary of Care ---
Author Name Unknown Organization [facility] Address [address] [place] [address] Phone [phone] Care Team Providers Care Pot Puncher Name Role Phone Hayes Maurer Primary Care Provider Reason for Visit * Reason Comments case management Encounter Details Date Type Department Care Team Description 10/07/2022 Ambulance AssistantZinc Plate Grainer [facility] [address] [place] [address] India Wilks, RN Medical [...] Progress Notes * India Wilks RN - 10/07/2022 10:31 AM EDT Faxed DME order for nebulizer to [facility]. * India Wilks RN - 10/07/2022 9:12 AM EDT CM Progress note S: patient called in to report that she does not want to do RPM, she will let me know if she later decides that she will try it. Discussed nebulizer, she is worried there will be a large co-pay with the device. Still declining PT/HH services. Discussed upcoming testing, she is concerned that there may be something bad going on with the symptoms she has had. She has had improvement in bowel movements, is keeping adult briefs on had just in case diarrhea returns. Appetite is increasing. O: phone call follow up A: Alert and oriented P: Reinforced care plan as previously established. documented in this encounter Plan of Treatment Upcoming Encounters Date Type Specialty Care Team Description 10/18/2022 Imaging Radiology 10/18/2022 Laboratory Laboratory Evy Francis [address] [facility] [place] [address] 10/18/2022 Office Visit Family Medicine Lalit Wiggins CRNP [address] [place] [address] 10/21/2022 Office Visit Family Medicine Asia ZairaFARTUN Oropeza [address] [place] [address] 11/02/2022 Office Visit Gastroenterology Rufina Alvarez CRNP [address] [place] [address] 11/09/2022 Office Visit Urology Sahil Funk MD [address] [place] [address] 12/13/2022 Office Visit Cardiology Emery Kwan, [address] [place] [address] 01/17/2023 Hospital Encounter Endoscopy Michael Alejandro MD [address] [place] [address] 01/17/2023 Surgery Endoscopy Michael Alejandro MD [address] [place] [address] COLONOSCOPY FLEXIBLE PROXIMAL DIAGNOSTIC 03/09/2023 Office Visit Family Medicine Hayes Maurer DO [address] [place] [address] Scheduled Procedures Name Priority Associated Diagnoses Date/Ti [...] D LEVEL ONCE IN A LIFETIME-USE SMARTSET# [id number] Completed 08/02/2011, 04/24/2009, 06/25/2008, Additional history exists Mammogram Discontinued 12/18/2014, 11/05, 12/22/2006, Additional history exists Pneumococcal Vaccine: 65+ Years Completed 08/10/2017, 06/14/2016 Alpha-1 Antitrypsin Completed 03/15/2022 LUNG CANCER SCREENING - USE SMARTSET [id number] Completed 06/23/2022, 10/15/2019, 2018, Additional history exists [...] patient or by statute hierarchy) Care Teams Pot Puncher Relationship Specialty Start Date End Date Hayes Maurer DO [address] [place] [address] PCP - General Family Medicine 04/04/19 documented as of this encounter
--- OUTSIDE RECORDS SUMMARY | 2023-02-27 13:00 | External Medical Summary | Summary of Care ---
Author Name Unknown Organization [facility] Address [address] [facility] [place] [address] Phone [phone] Care Team Providers Care Appellate Conferee Name Role Phone Hayes Maurer DO Primary Care Provider Encounter Details Date Type Department Care Team Description 10/13/2022 Emergency Telemedicine IP Allergies Active Allergy Reactions Severity Noted Date Comments Morphine 03/26/1997 Shock, dyspnea Other reaction(s): shock, dspnea Neomycin 04/07/2013 documented as of this encounter (statuses as of 10/15/2022) Medications Medication Sig Dispensed Refills Start Date [...] 2017 classification ([facility]) Inhale 3 mL via nebulizer every 6 [...] as of this encounter (statuses as of 10/15/2022) Active Problems Problem Noted Date Medical home [...] as of this encounter (statuses as of 10/15/2022) Resolved Problems Problem Noted Date Resolved Date [...] as of this encounter (statuses as of 10/15/2022) Immunizations Name Administration Dates Next Due COVID-19 [...] on file documented as of this encounter Consult Notes * Rah Jackson MD - 10/14/2022 10:50 AM EDT CONSULT - Infectious Disease TELEHEALTH IP Name: Kaci Funk Location: MAIN IP TELEMEDICINE/Tel* Date: 10/14/2022 Time: 10:51 AM REQUESTING SERVICE: [facility] REASON FOR CONSULT: Telemedicine Consult - Diarrhea with discordant C diff test (pcr positive w/ negative toxin) After connecting through [employer], patient was identified by name and date of and wristband checked. Patient was then informed that this was a Telemedicine visit and that the exam was being conducted confidentially over secure lines. My office door was closed. No one else was in the room with me. Patient acknowledged consent and understanding of privacy and security of the Telemedicine visit, and gave us permission to have the care team leader surgery stay in the room in order to assist with thehistory and to conduct the exam. I informed the patient that I have reviewed their record in [employer] and presented the opportunity for them to ask any questions regarding the visit today. The patient agreed to participate. HPI: Patient is a 72 year old female admitted to the hospital on 10/13/2022. This is a 72 y/o female ("Kaci") w/ hx of COPD, postsurgical hypothyroidism s/p thyroidectomy, PSVT, and pulm HTN, recently hospitalized at [facility] for multiple reasons, one of which included Norovirusdiarrheal illness and given a 7-day course of abx for suspected UTI(?). The patient presented to [facility] on 10/12/22 for ongoing generalized weakness and diarrhea x several weeks w/ weight loss. She was tested positive for C diff pcr as outpatient, w/c was done for ongoing diarrhea. No fever. CT A/P showed fecal retention and moderate constipation. Patient will be prep'ed for colonoscopy +/- biopsy while in hospital. She still feels weak and is still having watery diarrhea: twice today. Her abd feels bloated. No n/v, coughing, cp, sob, f/c, or urinary symptoms. No abx was given for C diff before this admission. No other complaint. ABX Fidaxomicin 200 mg po bid -10/14 Vanco 125 mg po qid ALLERGIES: Morphine and Neomycin PAST MEDICAL HISTORY: Past Medical History: Diagnosis Date Abnormal Papanicolaou [...] Osteomyelitis (HCC) left knee Peptic ulcer PUD PAST SURGICAL HISTORY: Past Surgical History: Procedure Laterality Date COLONOSCOPY W/ BIOPSY (RECTUM) 05/22/2007 5 2-3 mm polyps- hyperplastic polyps--repeat 3 years COLONOSCOPY, DIAGNOSTIC (RECTUM) 12/26/2017 diverticulosis, repeat 5 yrs/COLONOSCOPY FLEXIBLE PROXIMAL DIAGNOSTIC performed by Deisi Dent DO at [facility] EGD, FLEXIBLE, DIAGNOSTIC 07/19/2022 abdoul funk grade III reflux esophagitis/erthematous mucosa stomach/biopsies show mild irritationof stomach/ESOPHAGOGASTRODUODENOSCOPY (EGD), FLEXIBLE, TRANSORAL, DIAGNOSTIC performed by Jessica Martinez DO at [facility] EGD, FLEXIBLE, W/BIOPSY 04/24/2007 chronic gastric inflammation LAPAROSCOPY OF PELVIS MAMMOGRAM - BILATERAL 08/25/1999 Negative assessment. REMOVAL OF THYROID GLAND Thyroidectomy SPINAL FUSION, LUMBAR, COMBINED lumbar x 3 US - BREAST(S) 08/25/1999 Extremely dense breasts, no lesion on u/s. SOCIAL HISTORY: Social History Tobacco Use Smoking status: Some Days Packs/day: 0.55 Years: 37.00 Pack years: 20.35 Types: Cigarettes Smokeless tobacco: Never Tobacco comments: 1/2 per day-started age 35 Vaping Use Vaping Use: Never used Substance Use Topics Alcohol use: No Drug use: No FAMILY HISTORY and FAMILY STATUS: Family History Problem Relation Age of Onset Endocrine Disorder Mother hypothyroidism Cancer Mother uterine Other (crohn's) Mother Hypertension Father Diabetes Father No Past Hx Sister No Past Hx Sister Cancer Aunt (Unspecified) paternal;breast Other (Rheumatoid arthritis) Sister ? SLE Other (crohn's) Other neice Family Status Relation Status Mo Alive Fa Alive Sis Alive RA Sis Alive Sis Alive Herbert Alive Sis (Not Specified) Sis (Not Specified) AUNT (Not Specified) Sis (Not Specified) Other (Not Specified) ROS: As HPI and all others negative PHYSICAL EXAMINATION: Most Recent Vital Signs: BP 102/62 P 70 R 16 T 36.8 C O2 sat 99% on RA Constitutional: no acute distress Neuro: alert, oriented to person, place, and time LABS: Labs reviewed as indicated below: WBC 3.62K ->-> 4.53K H 9.9 Plt 196K K 3.1 -> 3.8 Cr 0.68 LFT unremarkable PCT 0.05 MICROBIOLOGY DATA: GI pathogen panel: positive for norovirus (08/17/22, 09/25/22) C diff (09/30/22): positive C diff toxin B PCR, C diff toxin A+B negative UA (10/12/22): pos nit, trace LE, WBC 5-10, epith 10-20 U cx (10/12): E coli (mckinley S) GI pathogen panel (10/13): positive for Norovirus but negative C diff gene IMAGING: CXR (10/12): No acute cardiopulmonary abnormality. CT head (10/12): There is no hemorrhage, mass effect, or evidence of acute territorial ischemia by CT criteria. CT A/P (10/12): 1. Rectosigmoid fecal retention and moderate constipation 2. Cardiomegaly and trace pleural effusions. 3. There is evidence of fluid overload with anasarca of the body wall, mesenteric edema, and a small volume of abdominopelvic ascites. 4. Moderate to severe right-sided hydronephrosis is similar to previous. No obstructing stone or lesion is clearly seen and this likely represents a UPJ type obstruction. 5. Left-sided nephrolithiasis. IMPRESSION: Chronic diarrhea R/o C diff infection vs colonization Recent Norovirus infection Hx of COPD, postsurgical hypothyroidism s/p thyroidectomy, PSVT, and pulm HTN RECOMMENDATIONS: - I agree w/ treating for suspected active C diff infection w/ either fidaxomicin 200 mg po bid for10 days or vancomycin 125 mg po q6 hours for 10 days. - I agree w/ colonoscopy for further evaluation as there may be an underlying non-infectious process at work. - I do not believe patient as active UTI at this time given lack of pertinent symptoms: positive urine culture may represent colonization - I doubt the patient has active norovirus infection: norovirus shedding may be noted for weeks or longer after actual infection: GI pathogen panel was positive w/ norovirus since 08/17/22. "Positive C diff toxin B PCR, C diff toxin A+B negative" is somewhat challenging to interpret. [facility], [facility] toxin B first. If positive, EIA for A+B toxins and GDH antigen test are done. [facility] normally does not report out the GDH antigen result. The EIA for toxin A+B will turn positive if either toxin A or B or both are present. The idea of doing this two tier testing is to differentiate between colonization and active infection. However, there are increasing concerns about their relative insensitivity (less than issue culture cytoxicity and much less than PCR or toxigenic culture). Therefore, if the patient has clinical presentation suspicious of C diff infection, Iagree w/ treating w/ abx for active C diff infection. More than 50% of this 60-minute visit was spent counseling and coordinating care pertaining to the patient's infection diagnosis, additional work-up, and treatment option(s) as well as potential adverse events of the treatment. documented in this encounter Plan of Treatment Upcoming Encounters Date Type Specialty Care Team Description 10/18/2022 Imaging Radiology 10/18/2022 Laboratory Laboratory Evy Francis [address] [facility] [place] [address] 10/18/2022 Office Visit Family Medicine Lalit Wiggins CRNP [address] [place] [address] 10/21/2022 Office Visit Family Medicine Zaira Betancourt CRNP [address] [place] [address] 11/02/2022 Office Visit Gastroenterology Rufina Alvarez CRNP [address] [place] [address] 11/09/2022 Office Visit Urology Sahil Funk MD [address] [place] [address] [place] [address] 12/13/2022 Office Visit Cardiology Emery Kwan DO [address] [place] [address] 01/17/2023 Hospital Encounter Endoscopy Michael Alejandro MD [address] [place] [address] 01/17/2023 Surgery Endoscopy Michael Alejandro MD [address] [place] [address] COLONOSCOPY FLEXIBLE PROXIMAL DIAGNOSTIC 03/09/2023 Office Visit Family Medicine Hayes Maurer DO [address] [place] [address] Scheduled Procedures Name Priority Associated Diagnoses Date/Ti me COLONOSCOPY FLEXIBLE PROXIMAL DIAGNOSTIC Recall History of colon polyps Special screening for malignant neoplasms, colon 01/17/2023 2:30 PM EST Health Maintenance Due Date Last Done Comments DISCUSS TOBACCO CESSATION (REFER TO SMARTSET #8911) 1950 Hepatitis B (2 of 3 - [...] D LEVEL ONCE IN A LIFETIME-USE SMARTSET# [id number] Completed 08/02/2011, 04/24/2009, 06/25/2008, Additional history exists Mammogram Discontinued 12/18/2014, 11/05, 12/22/2006, Additional history exists Pneumococcal Vaccine: 65+ Years Completed 08/10/2017, 06/14/2016 Alpha-1 Antitrypsin Completed 03/15/2022 LUNG CANCER SCREENING - USE SMARTSET 33639 Completed 06/23/2022, 10/15/2019, 2018, Additional history exists [...] patient or by statute hierarchy) Care Teams Appellate Conferee Relationship Specialty Start Date End Date Hayes Maurer DO [address] [place] [address] PCP - General Family Medicine 04/04/19 documented as of this encounter
--- OUTSIDE RECORDS SUMMARY | 2023-02-27 13:00 | External Medical Summary | Summary of Care ---
Author Name Unknown Organization [facility] Address [address] [place] [address] Phone [phone] Care Team Providers Care Hot Pond Operator Name Role Phone Hayes Maurer DO Primary Care Provider Reason for Visit * Reason Onset Date Comments Medication Problem 10/13/2022 Dificid Encounter Details Date Type Department Care Team Description 10/13/2022 Telephone Gastroenterology, [facility] [address] [place] [address] Rufina Alvarez CRNP [address] [place] [address] Medication Problem (Dificid) Allergies Active Allergy Reactions [...] encounter Miscellaneous Notes * Telephone Encounter - Morris Travis RN - 10/13/2022 9:44 AM EDT Rufina, received fax from patients pharmacy. Pt has medicare so medication doesn't require an auth but her copay is $1500. documented in this encounter Plan of Treatment Upcoming Encounters Date Type Specialty Care Team Description 10/18/2022 Imaging Radiology 10/18/2022 Laboratory Laboratory Francis, [facility] [address] [address] 10/18/2022 Office Visit Family Medicine Lalit Wiggins CRNP [address] [address] 10/21/2022 Office Visit Family Medicine Zaira Betancourt CRNP [address] [place] [address] 11/02/2022 Office Visit Gastroenterology Rufina Alvarez CRNP [address] [place] [address] 11/09/2022 Office Visit Urology Sahil Funk MD [address] [place] [address] [place] [address] 12/13/2022 Office Visit Cardiology Emery Kwan, [address] [place] [address] 01/17/2023 Hospital Encounter Endoscopy Michael Alejandro MD [address] [place] [address] 01/17/2023 Surgery Endoscopy Michael Alejandro MD [address] [place] [address] COLONOSCOPY FLEXIBLE PROXIMAL DIAGNOSTIC 03/09/2023 Office Visit Family Medicine Hayes Maurer DO [address] [place] [address] Scheduled Procedures Name Priority Associated Diagnoses Date/Ti me COLONOSCOPY FLEXIBLE PROXIMAL DIAGNOSTIC Recall History of colon polyps Special screening for malignant neoplasms, colon 01/17/2023 2:30 PM EST Health Maintenance Due Date Last Done Comments DISCUSS TOBACCO CESSATION (REFER TO SMARTSET #7039) 1950 Hepatitis B (2 of 3 - [...] D LEVEL ONCE IN A LIFETIME-USE SMARTSET# [id number] Completed 08/02/2011, 04/24/2009, 06/25/2008, Additional history exists Mammogram Discontinued 12/18/2014, 11/05, 12/22/2006, Additional history exists Pneumococcal Vaccine: 65+ Years Completed 08/10/2017, 06/14/2016 Alpha-1 Antitrypsin Completed 03/15/2022 LUNG CANCER SCREENING - USE SMARTSET 28830 Completed 06/23/2022, 10/15/2019, 2018, Additional history exists [...] patient or by statute hierarchy) Care Teams Hot Pond Operator Relationship Specialty Start Date End Date Hayes Maurer DO [address] [place] [address] PCP - General Family Medicine 04/04/19 documented as of this encounter
--- OUTSIDE RECORDS SUMMARY | 2023-02-27 13:00 | External Medical Summary | Summary of Care ---
Author Name Unknown Organization [facility] Address [address] [place] [address] Phone [phone] Care Team Providers Care Night Shift Manager Name Role Phone Hayes Maurer Primary Care Provider Reason for Visit * Reason Onset Date Comments case management 10/12/2022 Encounter Details Date Type Department Care Team Description 10/12/2022 Business Writer Telephone Family Practice [facility] [address] [facility] [place] [address] India Wilks, wealth management manager Allergies Active Allergy Reactions Severity Noted Date [...] Telephone Encounter - India Wilks RN - 10/12/2022 9:42 AM EDT CM Progress note S: Patient called in with c/o feeling increased weakness and diarrhea. Reports " I feel terrible". States is crawling to the bathroom, and stool "is running out of me". Has had to change clothes several times. States did not sleep last night due to "running to the bathroom". O: phone call follow up A: Alert, oriented P: Discussed with PCP, Patient was instructed to return to the ER for symptoms. She is hesitant butagreeable. Also message sent to nurse scott Barger and Charge nurse Ambar at the ER to notify of our recommendation for ER evaluation for worsening weakness and diarrhea. documented in this encounter Plan of Treatment Upcoming Encounters Date Type Specialty Care Team Description 10/18/2022 Imaging Radiology 10/18/2022 Laboratory Laboratory Evy Francis [address] [place] [address] 10/18/2022 Office Visit Family Medicine Lalit Wiggins CRNP [address] [place] [address] 10/21/2022 Office Visit Family Medicine Zaira Betancourt CRNP [address] [place] [address] 11/02/2022 Office Visit Gastroenterology Rufina Alvarez CRNP [address] [place] [address] 11/09/2022 Office Visit Urology Sahil Funk MD [address] [place] [address] [place] [address] 12/13/2022 Office Visit Cardiology Emery Kwan DO [address] [place] [address] 01/17/2023 Hospital Encounter Endoscopy Michael Alejandro MD [address] [place] [address] 01/17/2023 Surgery Endoscopy Michael Alejandro MD [address] [place] [address] COLONOSCOPY FLEXIBLE PROXIMAL DIAGNOSTIC 03/09/2023 Office Visit Family [facility] Hayes Maurer DO [address] [place] [address] Scheduled Procedures Name Priority Associated Diagnoses Date/Ti me COLONOSCOPY FLEXIBLE PROXIMAL DIAGNOSTIC Recall History of colon polyps Special screening for malignant neoplasms, colon 01/17/2023 2:30 PM EST Health Maintenance Due Date Last Done Comments DISCUSS TOBACCO CESSATION (REFER TO SMARTSET #2865) 1950 Hepatitis B (2 of 3 - [...] D LEVEL ONCE IN A LIFETIME-USE SMARTSET# [id number] Completed 08/02/2011, 04/24/2009, 06/25/2008, Additional history exists Mammogram Discontinued 12/18/2014, 11/05, 12/22/2006, Additional history exists Pneumococcal Vaccine: 65+ Years Completed 08/10/2017, 06/14/2016 Alpha-1 Antitrypsin Completed 03/15/2022 LUNG CANCER SCREENING - USE SMARTSET 65592 Completed 06/23/2022, 10/15/2019, 2018, Additional history exists [...] Rule-Out 10/12/2022 10/12/2022 C. difficile Rule-Out 10/12/2022 10/12/2022 documented as of this encounter Advance Directives Healthcare Agents on File Name Relationship Healthcare Agent Relationshi p Communication Michael Funk Spouse Health Care Repr esentative (appointed verbally by patient or by statute hierarchy) Care Teams Night Shift Manager Relationship Specialty Start Date End Date Hayes Maurer DO [address] [place] [address] PCP - General Family Medicine 04/04/19 documented as of this encounter
--- OUTSIDE RECORDS SUMMARY | 2023-02-27 13:00 | External Medical Summary | Summary of Care ---
Author Name Unknown Organization [facility] Address [address] [place] [address] Phone [phone] Care Team Providers Care Rent And Miscellaneous Remittance Clerk Name Role Phone Hayes Maurer Primary Care Provider Reason for Visit * Reason Onset Date Comments Other 10/12/2022 Encounter Details Date Type Department Care Team Description 10/12/2022 Telephone Gastroenterology, [facility] [address] [place] [address] Rufina Alvarez CRNP [address] [place] [address] Other Allergies Active Allergy Reactions Severity Noted [...] treatment to any of your health career discovery teacher that may beprescribing antibiotic therapy in the future. * Telephone Encounter - Natalie Valle RN - 10/12/2022 3:09 PM EDT ----- Message from FARTUN Villaseñor sent at 10/12/2022 2:28 PM EDT ----- Nurses - pls call pt and inform her that Cdiff is positive. This is a recurrence. Plan to treat with Fidaxomicin 200mg BID x 10 day which I send into [facility] FARTUN Santana documented in this encounter Plan of Treatment Upcoming Encounters Date Type Specialty Care Team Description 10/18/2022 Imaging Radiology 10/18/2022 Laboratory Laboratory Evy Francis [address] [address] 10/18/2022 Office Visit Family Medicine Lalit Wiggins CRNP [address] [place] [address] 10/21/2022 Office Visit Family Medicine Zaira Betancourt CRNP [address] [place] [address] 11/02/2022 Office Visit Gastroenterology Rufina Alvarez CRNP [address] [place] [address] 11/09/2022 Office Visit Urology Sahil Funk MD [address] [facility] [address] [place] [address] 12/13/2022 Office Visit Cardiology Emery Kwan DO [address] [place] [address] 01/17/2023 Hospital Encounter Endoscopy Michael Alejandro MD [address] [place] [address] 01/17/2023 Surgery Endoscopy Michael Alejandro MD [address] [place] [address] COLONOSCOPY FLEXIBLE PROXIMAL DIAGNOSTIC 03/09/2023 Office Visit Family Medicine Hayes Maurer DO [address] [place] [address] Scheduled Procedures Name Priority Associated Diagnoses Date/Ti [...] D LEVEL ONCE IN A LIFETIME-USE SMARTSET# [id number] Completed 08/02/2011, 04/24/2009, 06/25/2008, Additional history exists Mammogram Discontinued 12/18/2014, 11/05, 12/22/2006, Additional history exists Pneumococcal Vaccine: 65+ Years Completed 08/10/2017, 06/14/2016 Alpha-1 Antitrypsin Completed 03/15/2022 LUNG CANCER SCREENING - USE SMARTSET [id number] Completed 06/23/2022, 10/15/2019, 2018, Additional history exists [...] patient or by statute hierarchy) Care Teams Rent And Miscellaneous Remittance Clerk Relationship Specialty Start Date End Date Hayes Maurer DO [address] [place] [address] PCP - General Family Medicine 04/04/19 documented as of this encounter
--- OUTSIDE RECORDS SUMMARY | 2023-02-27 13:00 | External Medical Summary | Summary of Care ---
Author Name Unknown Organization [facility] Address [address] [place] [address] Phone [phone] Care Team Providers Care Driver'S License Reviewing Officer Name Role Phone Hayes Maurer Primary Care Provider Reason for Visit * Reason Comments Outpatient Testing Encounter Details Date Type Department Care Team Description 10/12/2022 Laboratory Laboratory, [facility] [address] [place] [address] [facility] Evy [facility] [address] [facility] [place] [address] Incontinence of feces, unspecified fecal incontinence type; Diarrhea, unspecified type; Severe protein-calorie malnutrition (HCC); Weight loss, non-intentional Allergies Active Allergy Reactions Severity Noted Date [...] Francis, [facility] [address] [place] [address] 10/18/2022 Office Visit Family Medicine Lalit Wiggins CRNP [address] [place] [address] 10/21/2022 Office Visit Family Medicine Zaira Betancourt CRNP [address] [place] [address] 11/02/2022 Office Visit Gastroenterology Rufina Alvarez CRNP [address] [place] [address] 11/09/2022 Office Visit Urology Sahil Funk MD [address] [facility] [place] [address] [place] [address] 12/13/2022 Office Visit Cardiology mEery Kwan, DO [address] [place] [address] 01/17/2023 Hospital Encounter Endoscopy Michael Alejandro MD [address] [place] [address] 01/17/2023 Surgery Endoscopy Michael Alejandro MD [address] [place] [address] COLONOSCOPY FLEXIBLE PROXIMAL DIAGNOSTIC 03/09/2023 Office Visit Family Medicine Hayes Maurer, DO [address] [place] [address] Pending Results Name Type Priority Associated Diagnoses Date /Time GASTROINTESTINAL PATHOGEN PANEL, STOOL Lab Routine Incontinence of feces, unspecified fecal incontinence type Diarrhea, unspecified type 10/12/2022 7:11 AM EDT CLOSTRIDIUM DIFFICILE, PCR Lab Routine Incontinence of feces, unspecified fecal incontinence type 10/12/2022 7:11 AM EDT REGIONAL PARASITE ANTIGEN SCREEN Lab Routine Severe protein-calorie malnutrition (HCC) Weight loss, non-intentional 10/12/2022 7:11 AM EDT GASTROINTESTINAL PATHOGEN PANEL PCR Lab Routine Incontinence of feces, unspecified fecal incontinence type Diarrhea, unspecified type 10/12/2022 7:11 AM EDT GASTROINTESTINAL PATHOGEN PANEL CULTURE Lab Routine Incontinence of feces, unspecified fecal incontinence type Diarrhea, unspecified type 10/12/2022 7:11 AM EDT Scheduled Procedures Name Priority Associated Diagnoses Date/Ti me COLONOSCOPY FLEXIBLE PROXIMAL DIAGNOSTIC Recall History of colon polyps Special screening for malignant neoplasms, colon 01/17/2023 2:30 PM EST Health Maintenance Due Date Last Done Comments DISCUSS TOBACCO CESSATION (REFER TO SMARTSET #5286) 1950 Hepatitis B (2 of 3 - [...] D LEVEL ONCE IN A LIFETIME-USE SMARTSET# [id number] Completed 08/02/2011, 04/24/2009, 06/25/2008, Additional history exists Mammogram Discontinued 12/18/2014, 11/05, 12/22/2006, Additional history exists Pneumococcal Vaccine: 65+ Years Completed 08/10/2017, 06/14/2016 Alpha-1 Antitrypsin Completed 03/15/2022 LUNG CANCER SCREENING - USE SMARTSET [id number] Completed 06/23/2022, 10/15/2019, 2018, Additional history exists GARDASIL-HPV IMMUNIZATION SERIES Aged Out No longer eligible based on patient's age to complete this topic MENINGOCOCCAL (MENACTRA/MENVEO) Aged Out No longer eligible based on patient's age to complete this topic documented as of this encounter Medical Devices Not on filedocumented as of this encounter Visit Diagnoses Diagnosis Incontinence of feces, unspecified fecal incontinence type Diarrhea, unspecified type Severe protein-calorie malnutrition (HCC) Other severe protein-calorie malnutrition Weight loss, non-intentional Loss of weight History of colon polyps Personal history of [...] patient or by statute hierarchy) Care Teams Driver'S License Reviewing Officer Relationship Specialty Start Date End Date Hayes Maurer DO [address] [place] [address] PCP - General Family Medicine 04/04/19 documented as of this encounter
--- OUTSIDE RECORDS SUMMARY | 2023-02-27 13:00 | External Medical Summary ---
Author Name Unknown Address Unknown Organization [id number]:LABORATORY [facility] [place] - [facility] [address] [facility] [address] Laboratory Report Ordering Provider Test Date Status MAGDA RUBY 10/12/2022 07:11:27 Final Observation Date Value Abnormality Reference (Units ) Status Campylobacter sp DNA.diarrheagenic [Presence] in Stool by TEODORO with probe detection 10/12/2022 07:11:27 Negative Negative Final Salmonella sp rpoD gene [Presence] in Stool by TEODORO with probe detection 10/12/2022 07:11:27 Negative Negative Final Shigella species+EIEC invasion plasmid antigen H ipaH gene [Presence] in Stool by TEODORO with probe detection 10/12/2022 07:11:27 Negative Negative Final Vibrio sp DNA [Identifier] in Specimen by TEODORO with probe detection 10/12/2022 07:11:27 Negative Negative Final Yersinia enterocolitica recN gene [Presence] in Stool by TEODORO with probe detection 10/12/2022 07:11:27 Negative Negative Final Escherichia coli Stx1 toxin stx1 gene [Presence] in Stool by TEODORO with probe detection 10/12/2022 07:11:27 Negative Negative Final Escherichia coli Stx2 toxin stx2 gene [Presence] in Stool by TEODORO with probe detection 10/12/2022 07:11:27 Negative Negative Final Norovirus genogroups I and II RNA panel - Stool by TEODORO with probe detection 10/12/2022 07:11:27 Negative Negative Final Rotavirus A RNA [Presence] in Stool by TEODORO with probe detection 10/12/2022 07:11:27 Negative Negative Final Performing Location LABORATORY [place] [address] [facility] [address]
--- OUTSIDE RECORDS SUMMARY | 2023-02-27 13:00 | External Medical Summary ---
Author Name Unknown Address Unknown Organization K01:[facility] [place] [address] [place] [address] Laboratory Report Ordering Provider Test Date Status MAGDA RUBY 10/12/2022 07:11:27 Final Observation Date Value Abnormality Reference (Units) Status Bacteria identified in Unspecified specimen by Culture 10/12/2022 07:11:27 No Aeromonas species or Plesiomonas species isolated. Final Test: Gastrointestinal Patho gen Panel Culture
Specimen Source: Stool
Specimen Type: Stool
Specimen Date: 10/12/2022 7:11 AM
Result Date: 10/14/2022 10:37 AM
Result Status: Final result
Resulting Lab: [facility] [place]
[address]
[place] [address]

CULTURE

No Aeromonas species or Plesiomonas species isolated.

null Performing Location LAB[facility] [place] [address] [facility] [address]
--- OUTSIDE RECORDS SUMMARY | 2023-02-27 13:00 | External Medical Summary ---
Author Name Unknown Address Unknown Organization K01:LABORATORY [facility] [place] - [address] [place] [address] Laboratory Report Ordering Provider Test Date Status JOANIEARLEEN ARNDT 10/12/2022 07:11:27 Final Observation Date Value Abnormality Reference (Units ) Status Cryptosporidium sp Ag [Presence] in Stool by Immunoassay 10/12/2022 07:11:27 Negative Negative Final Negative for Cryptosporidium Antigen. Giardia lamblia Ag [Presence ] in Stool by Immunoassay 10/12/2022 07:11:27 Negative Negative Final Negative for Giardia Specifi c Antigen. Performing Location LABORATORY [facility] [place] - [address] [place] [address]
--- OUTSIDE RECORDS SUMMARY | 2023-02-27 13:00 | External Medical Summary | Summary of Care ---
Author Name Unknown Organization [facility] Address [address] [place] [address] Phone [phone] Care Team Providers Care Gill Net Stringer Name Role Phone Hayes Maurer Primary Care Provider Reason for Visit * Reason Comments Outpatient Testing Encounter Details Date Type Department Care Team Description 10/06/2022 Laboratory Laboratory, [facility] [address] [place] [address] [facility] [address] [facility] [place] [address] Postoperative hypothyroidism Allergies Active Allergy Reactions Severity Noted Date Comments Morphine 03/26/1997 Shock, dyspnea Other reaction(s): shock, dspnea Neomycin 04/07/2013 documented as of this encounter (statuses as of 10/06/2022) Medications Medication Sig Dispensed Refills Start Date [...] as of this encounter (statuses as of 10/06/2022) Active Problems Problem Noted Date COPD, group B, by GOLD 2017 classificati [...] as of this encounter (statuses as of 10/06/2022) Resolved Problems Problem Noted Date Resolved Date [...] as of this encounter (statuses as of 10/06/2022) Immunizations Name Administration Dates Next Due COVID-19 [...] [facility] [address] [place] [address] 10/18/2022 Office Visit Family Medicine Lalit Wiggins CRNP [address] [place] [address] 10/21/2022 Office Visit Family Medicine Zaira Betancourt CRNP [address] [place] [address] 11/02/2022 Office Visit Gastroenterology Rufina Alvarez CRNP [address] [place] [address] 11/09/2022 Office Visit Urology Sahil Funk MD [address] [place] [address] [place] [id number] 12/13/2022 Office Visit Cardiology Emery Kwan, [address] [place] [address] 01/17/2023 Hospital Encounter Endoscopy Michael Alejandro MD [address] [place] [address] 01/17/2023 Surgery Endoscopy Michael Alejandro MD [address] [place] [address] COLONOSCOPY FLEXIBLE PROXIMAL DIAGNOSTIC 03/09/2023 Office Visit Family Medicine Hayes Maurer DO [address] [place] [address] Pending Results Name Type Priority Associated Diagnoses Date /Time TSH WITH FREE T4 IF INDICATED Lab Routine Postoperative hypothyroidism 10/06/2022 5:03 PM EDT Scheduled Procedures Name Priority Associated Diagnoses Date/Ti me COLONOSCOPY FLEXIBLE PROXIMAL DIAGNOSTIC Recall History of colon polyps Special screening for malignant neoplasms, colon 01/17/2023 2:30 PM EST Health Maintenance Due Date Last Done Comments DISCUSS TOBACCO CESSATION (REFER TO SMARTSET #7761) 1950 Hepatitis B (2 of 3 - [...] for Pts 12 and Over 03/15/2023 03/15/2022 TSH 03/15/2023 03/15/2022, 02/05, 10/01/2019, Additional history exists O2 ASSESSMENT COMPLETED IN PAST YEAR FOR COPD 07/20/2023 07/19/2022 Lipid Panel 03/15/2027 03/15/2022, 02/05, 10/01/2019, Additional history exists VITAMIN D LEVEL ONCE IN A LIFETIME-USE SMARTSET# [id number] Completed 08/02/2011, 04/24/2009, 06/25/2008, Additional history exists Mammogram Discontinued 12/18/2014, 11/05, 12/22/2006, Additional history exists Pneumococcal Vaccine: 65+ Years Completed 08/10/2017, 06/14/2016 Alpha-1 Antitrypsin Completed 03/15/2022 LUNG CANCER SCREENING - USE SMARTSET 76712 Completed 06/23/2022, 10/15/2019, 2018, Additional history exists GARDASIL-HPV IMMUNIZATION SERIES Aged Out No longer eligible based on patient's age to complete this topic MENINGOCOCCAL (MENACTRA/MENVEO) Aged Out No longer eligible based on patient's age to complete this topic documented as of this encounter Medical Devices Not on filedocumented as of this encounter Visit Diagnoses Diagnosis Postoperative hypothyroidism Postsurgical hypothyroidism History of colon polyps Personal history of colonic polyps Special screening for malignant neoplasms, colon documented in this encounter Care Teams Gill Net Stringer Relationship Specialty Start Date End Date Hayes Maurer DO [address] [place] [address] PCP - General Family Medicine 04/04/19 documented as of this encounter
--- OUTSIDE RECORDS SUMMARY | 2023-02-27 13:00 | External Medical Summary | Summary of Care ---
Author Name Unknown Organization [facility] Address [address] [place] [address] Phone [phone] Care Team Providers Care Rat Trapper Name Role Phone Hayes Maurer Primary Care Provider Reason for Visit * Reason Onset Date Comments Other 10/12/2022 Encounter Details Date Type Department Care Team Description 10/12/2022 Telephone Gastroenterology, [facility] [address] [place] [address] Rufina Alvarez CRNP [address] [place] [address] Other Allergies Active Allergy Reactions Severity Noted [...] :COPD, group B, by GOLD 2017 classification ([facility]) Inhale 3 mL via nebulizer [...] treatment to any of your health career development coordinator that may beprescribing antibiotic therapy in the future. * Telephone Encounter - Natalie Valle RN - 10/12/2022 3:09 PM EDT ----- Message from FARTUN Villaseñor sent at 10/12/2022 2:28 PM EDT ----- Nurses - pls call pt and inform her that Cdiff is positive. This is a recurrence. Plan to treat with Fidaxomicin 200mg BID x 10 day which I send into [facility] @ . [place] FARTUN Santana documented in this encounter Plan of Treatment Upcoming Encounters Date Type Specialty Care Team Description 10/18/2022 Imaging Radiology 10/18/2022 Laboratory Laboratory Evy Francis [address] [place] [address] 10/18/2022 Office Visit Family Medicine Lalit Wiggins CRNP [address] [place] [address] 10/21/2022 Office Visit Family Medicine Zaira Betancourt CRNP [address] [place] [address] 11/02/2022 Office Visit Gastroenterology Rufina Alvarez CRNP [address] [place] [address] 11/09/2022 Office Visit Urology Sahil Funk MD [address] [place] [address] [place] [id number] 12/13/2022 Office Visit Cardiology Emery Kwan, [address] [place] [address] 01/17/2023 Hospital Encounter Endoscopy Michael Alejandro MD [address] [place] [address] 01/17/2023 Surgery Endoscopy Michael Alejandro MD [address] [place] [address] COLONOSCOPY FLEXIBLE PROXIMAL DIAGNOSTIC 03/09/2023 Office Visit Family Medicine Hayes Maurer, [address] [place] [address] Scheduled Procedures Name Priority Associated Diagnoses Date/Ti [...] D LEVEL ONCE IN A LIFETIME-USE SMARTSET# [id number] Completed 08/02/2011, 04/24/2009, 06/25/2008, Additional history exists Mammogram Discontinued 12/18/2014, 11/05, 12/22/2006, Additional history exists Pneumococcal Vaccine: 65+ Years Completed 08/10/2017, 06/14/2016 Alpha-1 Antitrypsin Completed 03/15/2022 LUNG CANCER SCREENING - USE SMARTSET [id number] Completed 06/23/2022, 10/15/2019, 2018, Additional history exists [...] patient or by statute hierarchy) Care Teams Rat Trapper Relationship Specialty Start Date End Date Hayes Maurer, [address] [place] [address] PCP - General Family Medicine 04/04/19 documented as of this encounter
--- OUTSIDE RECORDS SUMMARY | 2023-02-27 13:00 | External Medical Summary | Summary of Care ---
Author Name Unknown Organization [facility] Address [address] [place] [address] Phone [phone] Care Team Providers Care Lunch Wagon Operator Name Role Phone Hayes Maurer Primary Care Provider Reason for Visit * Reason Comments case management Encounter Details Date Type Department Care Team Description 10/10/2022 [place] [employer] Settlement Processor [facility] [address] [place] [address] [place] [...] Progress Notes * India Wilks RN - 10/10/2022 4:30 PM EDT Cm Progress note S: Spoke with patient at length. She was sleeping for a long period today. Continues to feel weak. Discussed continuing cholestyramine and completing stool testing. She will have her spouse crab picker stool sample containers. She has been eating more, and is finding oatmeal to be easy on her stomach and filling. She is also eating some ice cream in small amount. She reports drinking fluids and applejuice. She is trying put on some weight. Discussed upcoming tests/appotinemtns. O: KATHERINE week 2 follow up A: Alert, oriented but forgetful P: Discussed need for stool testing, continued increase of oral intake as tolerated. She will call [facility] tomorrow regarding order for nebulizer machine. She is concerned for a large co pay/cost. Reinforced care plan as previously established. documented in this encounter Plan of Treatment Upcoming Encounters Date Type Specialty Care Team Description 10/18/2022 Imaging Radiology 10/18/2022 Laboratory Laboratory Evy [facility] [address] [place] [address] 10/18/2022 Office Visit Family Medicine Lalit Wiggins CRNP [address] [place] [address] 10/21/2022 Office Visit Family Medicine Zaira Betancourt CRNP [address] [place] [address] 11/02/2022 Office Visit Gastroenterology Rufina Alvarez CRNP [address] [place] [address] 11/09/2022 Office Visit Urology Sahil Funk MD [address] [place] [address] [place] [address] 12/13/2022 Office Visit Cardiology Emery Kwan DO [address] [place] [address] 01/17/2023 Hospital Encounter Endoscopy Michael Alejandro MD [address] [place] [address] 01/17/2023 Surgery Endoscopy Michael Alejandro MD [address] [place] [address] COLONOSCOPY FLEXIBLE PROXIMAL DIAGNOSTIC 03/09/[address] [facility] Hayes Maurer DO [address] [place] [address] Scheduled Procedures Name Priority Associated Diagnoses Date/Ti me COLONOSCOPY FLEXIBLE PROXIMAL DIAGNOSTIC Recall History of colon polyps Special screening for malignant neoplasms, colon 01/17/2023 2:30 PM EST Health Maintenance Due Date Last Done Comments DISCUSS TOBACCO CESSATION (REFER TO SMARTSET #8706) 1950 Hepatitis B (2 of 3 - [...] D LEVEL ONCE IN A LIFETIME-USE SMARTSET# [id number] Completed 08/02/2011, 04/24/2009, 06/25/2008, Additional history exists Mammogram Discontinued 12/18/2014, 11/05, 12/22/2006, Additional history exists Pneumococcal Vaccine: 65+ Years Completed 08/10/2017, 06/14/2016 Alpha-1 Antitrypsin Completed 03/15/2022 LUNG CANCER SCREENING - USE SMARTSET 92188 Completed 06/23/2022, 10/15/2019, 2018, Additional history exists [...] patient or by statute hierarchy) Care Teams Lunch Wagon Operator Relationship Specialty Start Date End Date Hayes Maurer DO [address] [place] [address] PCP - General Family Medicine 04/04/19 documented as of this encounter
--- OUTSIDE RECORDS SUMMARY | 2023-02-27 13:01 | External Medical Summary | Summary of Care ---
Author Name Unknown Organization [facility] Address [address] [place] [address] Phone [phone] Care Team Providers Care Customer Acquisition Specialist Name Role Phone Hayes Maurer Primary Care Provider Reason for Referral * Evaluate & Treat - Unlimited Visits (Within 10 days (routine)) - Authorized Specialty Diagnoses / Procedures Referred By Johanny t Referred To Contact Cardiovascular Medicine / Cardiology Diagnoses Generalized weakness Pulmonary hypertension (HCC) Reyes Qureshi MD [address] [place] [address] [place] [address] Referral ID Status Reason Start Date Expiration Date Visits Requested Visits Authorized [id number] Authorized Specialty Services Required 10/03/[phone] Question Answer Referral Priority Within 10 days (routine) To which of the following clinics are you referring your patient? General Cardiology Clinic Comments Pt recently hospitalized for dizziness, weakness. Bradycardia noted while in ER. Reason for Visit * Reason Onset Date Comments Advice 10/03/2022 Encounter Details Date Type Department Care Team Description 10/03/[address] [facility] [address] [facility] [place] [address] Reyes Qureshi MD [address] [place] [address] [place] [id number] Advice Allergies Active Allergy Reactions Severity Noted Date Comments Morphine 03/26/1997 Shock, dyspnea Other reaction(s): shock, dspnea Neomycin 04/07/2013 documented as of this encounter (statuses as of 10/03/2022) Medications Medication Sig Dispensed Refills Start Date End Date Status Levothyroxine Sodium 75 MCG Oral Tablet (Levoxyl)Indications: Acquired hypothyroidism TAKE 1 TABLET BY MOUTH EVERY DAY AT LEAST 30 MIN BEFORE BREAKFAST OR OTHER MEDICATION 90 Tablet 3 03/15/2022 Active Famotidine 40 MG Oral Tablet (Pepcid) Take 1 Tablet by mouth at bedtime as needed for Heartburn. 30 Tablet 11 08/06/2022 Active Metoprolol Tartrate 12.5 MG OR Tablet Take by mouth at bedtime. 0 Active Dicyclomine HCl 10 MG Oral Capsule (Bentyl) Take 1 Capsule by mouth 3 times a day as needed for Pain. As needed for abd pain. 0 Active Oxybutynin Chloride ER 5 MG Oral Tablet Extended Release 24 Hour (Ditropan XL) Take 1 Tablet by mouth in the morning. 30 Tablet 6 09/07/2022 Active Metoprolol Succinate ER 25 MG Oral Tablet Extended Release 24 Hour (toPROL XL) Take 0.5 Tablets by mouth in the morning. 90 Tablet 3 09/08/2022 Active documented as of this encounter (statuses as of 10/03/2022) Active Problems Problem Noted Date COPD, group [...] as of this encounter (statuses as of 10/03/2022) Resolved Problems Problem Noted Date Resolved Date [...] as of this encounter (statuses as of 10/03/2022) Immunizations Name Administration Dates Next Due COVID-19 mRNA, LNP-s, No Pre serve, 2-Dose Series ([place] Sunglass) 03/04/2021,07/22/2020,07/01/2020 Hepatitis B Vaccine 03/26/1997 Pneumococcal Conjugate [...] Miscellaneous Notes * Telephone Encounter - JADYN Prather - 10/03/2022 1:42 PM EDT LMOM. Can offer this week with Dr Kwan. * Telephone Encounter - Ambar Maurer - 10/03/2022 12:32 PM EDT No answer/vm Will try later Cardio will call to schedule hospital f/u * Addendum Note - Catie Amaya LPN - 10/03/2022 12:29 PM EDTAddended by: CATIE AMAYA on: 10/03/2022 12:29 PM Modules accepted: Orders * Telephone Encounter - Catie Amaya LPN - 10/03/2022 10:44 AM EDT (FYI) Information given to pt as noted below. Scheduling--Please assist below. Pt states she is in need of rescheduling her hosp f/u,needs appt with [facility] cancelled for 10/04/2022. Pt prefers to see Dr. Maurer for hosp f/u, but will see AIRPORT BAGGAGE SCREENER, but only can do later in the day appointments, Pt declines 11:30 am appt on 10/11/22 as she needs later appt. Pt inquiring if appointment for Cardiology can be placed as well, states she would like to see Dr. Kwan. Recent hospitalization for dizziness, weakness and bradycardia noted in ER. Cardiology referral placed. Pt states she had just fallen a few moments ago. States she was walking to room in house when she fell on her left side on the carpet. Pt denies lacerations or any injuries to body that she is aware of. Pt states "I am fine, I just tripped because my lower legs are swollen and feel like I have stiff boards for my feet.) * Telephone Encounter - Hayes Maurer DO - 10/03/2022 8:28 AM EDT Appears that her heart work up was normal which is reassuring and means her lower extremity swelling is likely most related to vein reflux (normal with aging). While we can try to treat this with medications - this would likely introduce side effects and other problems - so I would likely recommendlight over the counter compression socks and elevation of feet a few times daily for 30-60 min. * Telephone Encounter - Reyes Qureshi MD - 10/03/2022 7:38 AM EDT Kaci called me yesterday wanting to know what to do with her swollen legs and feet. She said they were swollen at [facility]charge from [facility] but no one seemed to care. I asked her why she was in the hospital and she wasn't exactly sure. Something about her heartbeat and having diarrhea. Eventually she said something about Norovirus and losing weight and was she going to get it back. She could tell me she was on metoprolol, Prevalite, oxybutinin. She was not short of breath or having chest pain or fast heartbeat. I asked her is she wanted a water pill but she thought she should wait to talk to PCP on Monday given I don't have access to her records. She was told to go to ER if her sx worsened. documented in this encounter Plan of Treatment Upcoming Encounters Date Type Specialty Care Team Description 10/04/2022 Office Visit Family Medicine Preethi Jones CRNP [address] [place] [address] 10/18/2022 Imaging Radiology 10/18/2022 Laboratory Laboratory [facility], [facility] [address] [place] [address] 10/18/2022 Office Visit Family Medicine Lalit Wiggins CRNP [address] [place] [address] 10/21/2022 Office Visit Family Medicine Zaira Betancourt CRNP [address] [place] [address] 11/02/2022 Office Visit Gastroenterology Rufina Alvarez CRNP [address] [place] [address] 11/09/2022 Office Visit Urology Sahil Funk MD [address] [place] [address] [place] [address] 01/17/2023 Hospital Encounter Endoscopy Michael Alejandro MD [address] [place] [address] 01/17/2023 Surgery Endoscopy Michael Alejandro MD [address] [place] [address] COLONOSCOPY FLEXIBLE PROXIMAL DIAGNOSTIC 03/09/2023 Office Visit Family Medicine Hayes Maurer DO [address] [place] [address] Scheduled Procedures Name Priority Associated Diagnoses Date/Ti me COLONOSCOPY FLEXIBLE PROXIMAL DIAGNOSTIC Recall History of colon polyps Special screening for malignant neoplasms, colon 01/17/2023 2:30 PM EST Scheduled Referrals Name Type Priority Associated Diagnoses Orde r Schedule CARDIOLOGY REFERRAL OP Referral Within 10 days (routine) Generalized weakness Pulmonary hypertension (HCC) Ordered: 10/03/2022 Health Maintenance Due Date Last Done Comments DISCUSS TOBACCO CESSATION (REFER TO SMARTSET #5411) 1950 Hepatitis B (2 of 3 - [...] D LEVEL ONCE IN A LIFETIME-USE SMARTSET# [id number] Completed 08/02/2011, 04/24/2009, 06/25/2008, Additional history exists Mammogram Discontinued 12/18/2014, 11/05, 12/22/2006, Additional history exists Pneumococcal Vaccine: 65+ Years Completed 08/10/2017, 06/14/2016 Alpha-1 Antitrypsin Completed 03/15/2022 LUNG CANCER SCREENING - USE SMARTSET 23888 Completed 06/23/2022, 10/15/2019, 2018, Additional history exists GARDASIL-HPV IMMUNIZATION SERIES Aged Out No longer eligible based on patient's age to complete this topic MENINGOCOCCAL (MENACTRA/MENVEO) Aged Out No longer eligible based on patient's age to complete this topic documented as of this encounter Medical Devices Not on filedocumented as of this encounter Visit Diagnoses Diagnosis Generalized weakness- Primary Other malaise and fatigue Pulmonary hypertension (HCC) Other chronic pulmonary heart diseases History of colon polyps Personal history of colonic polyps Special screening for malignant neoplasms, colon documented in this encounter Care Teams Customer Acquisition Specialist Relationship Specialty Start Date End Date Hayes Maurer DO [address] [place] [address] PCP - General Family Medicine 04/04/19 documented as of this encounter
--- OUTSIDE RECORDS SUMMARY | 2023-02-27 13:01 | External Medical Summary | Summary of Care ---
Author Name Unknown Organization [facility] Address [address] [place] [address] Phone [phone] Care Team Providers Care Internal Medicine Veterinary Technician Name Role Phone Hayes Maurer Primary Care Provider Reason for Referral * Evaluate & Treat - Unlimited Visits (Within 10 days (routine)) - Authorized Specialty Diagnoses / Procedures Referred By Johanny t Referred To Contact Cardiovascular Medicine / Cardiology Diagnoses Generalized weakness Pulmonary hypertension (HCC) Reyes Qureshi MD [address] [place] [address] [place] [address] Referral ID Status Reason Start Date Expiration Date Visits Requested Visits Authorized [id number] Authorized Specialty Services Required 10/03/[phone] Question Answer Referral Priority Within 10 days (routine) To which of the following clinics are you referring your patient? General Cardiology Clinic Comments Pt recently hospitalized for dizziness, weakness. Bradycardia noted while in ER. Reason for Visit * Reason Onset Date Comments Advice 10/03/2022 Encounter Details Date Type Department Care Team Description 10/03/2022 Telephone Family Practice [facility] [address] [facility] [place] [address] Reyes Qureshi MD [address] [place] [address] [place] [id number] Advice Allergies Active Allergy Reactions Severity Noted Date Comments Morphine 03/26/1997 Shock, dyspnea Other reaction(s): shock, dspnea Neomycin 04/07/2013 documented as of this encounter (statuses as of 10/04/2022) Medications Medication Sig Dispensed Refills Start Date [...] as of this encounter (statuses as of 10/04/2022) Active Problems Problem Noted Date COPD, group [...] as of this encounter (statuses as of 10/04/2022) Resolved Problems Problem Noted Date Resolved Date [...] as of this encounter (statuses as of 10/04/2022) Immunizations Name Administration Dates Next Due COVID-19 mRNA, LNP-s, No Pre serve, 2-Dose Series (Numascale) 03/04/2021,07/22/2020,07/01/2020 Hepatitis B Vaccine 03/26/1997 Pneumococcal Conjugate [...] * Telephone Encounter - JADYN Prather - 10/04/2022 8:35 AM EDT No answer, no vm. Second attempt. * Telephone Encounter - Ambar Maurer - 10/04/2022 8:12 AM EDT I talked to pt, she wanted to just cx appt in FP today and keep her appt on 15. She will see cardiology for the hospital f/u-she is going to call them today * Telephone Encounter - Ambar Maurer - 10/03/2022 2:37 PM EDT LM for pt to call back to reschedule hospital f/u * Telephone Encounter - JADYN Prather - [...] of rescheduling her hosp f/u,needs appt with Robert cancelled for 10/04/2022. Pt prefers to see Dr. Maurer for hosp f/u, but will see ADVANCED SOLUTIONS ARCHITECT, but only can do later in the [...] said they were swollen at Discharge from [facility] but no one seemed to care. I [...] Radiology 10/18/2022 Laboratory Laboratory Evy Francis [address] [facility] [place] [address] 10/18/2022 Office Visit Family Medicine Lalit Wiggins CRNP [address] [place] [address] 10/21/2022 Office Visit Family Medicine Zaira Betancourt CRNP [address] [place] [address] 11/02/2022 Office Visit Gastroenterology Rufina Alvarez CRNP [address] [place] [address] 11/09/2022 Office Visit Urology Sahil Funk MD [address] [place] [address] [place] [address] 01/17/2023 Hospital Encounter Endoscopy Michael Alejandro MD [address] [place] [address] 01/17/2023 Surgery Endoscopy Michael Alejandro MD [address] [place] [address] COLONOSCOPY FLEXIBLE PROXIMAL DIAGNOSTIC 03/09/2023 Office Visit Family Medicine Hayes Maurer DO [address] [place] [address] Scheduled Procedures Name Priority Associated Diagnoses Date/Ti [...] Comments DISCUSS TOBACCO CESSATION (REFER TO SMARTSET #9277) 1950 Hepatitis B (2 of 3 - [...] D LEVEL ONCE IN A LIFETIME-USE SMARTSET# [id number] Completed 08/02/2011, 04/24/2009, 06/25/2008, Additional history exists Mammogram Discontinued 12/18/2014, 11/05, 12/22/2006, Additional history exists Pneumococcal Vaccine: 65+ Years Completed 08/10/2017, 06/14/2016 Alpha-1 Antitrypsin Completed 03/15/2022 LUNG CANCER SCREENING - USE SMARTSET [id number] Completed 06/23/2022, 10/15/2019, 2018, Additional history exists [...] colon documented in this encounter Care Teams Internal Medicine Veterinary Technician Relationship Specialty Start Date End Date Hayes Maurer DO [address] [place] [address] PCP - General Family Medicine 04/04/19 documented as of this encounter
--- OUTSIDE RECORDS SUMMARY | 2023-02-27 13:01 | External Medical Summary | Summary of Care ---
Author Name Unknown Organization [facility] Address [address] [place] [address] Phone [phone] Care Team Providers Care Retail Operations Specialist Name Role Phone Hayes Maurer Primary Care Provider Reason for Referral * Evaluate & Treat - Unlimited Visits (Within 10 days (routine)) - Authorized Specialty Diagnoses / Procedures Referred By Johanny t Referred To Contact Cardiovascular Medicine / Cardiology Diagnoses Generalized weakness Pulmonary hypertension (HCC) Reyes Qureshi MD [address] [place] [address] [place] [address] Referral ID Status Reason Start Date Expiration Date Visits Requested Visits Authorized [id number] Authorized Specialty Services Required 10/03/2022 999 999 Question Answer Referral Priority Within 10 days (routine) To which of the following clinics are you referring your patient? General Cardiology Clinic Comments Pt recently hospitalized for dizziness, weakness. Bradycardia noted while in ER. Reason for Visit * Reason Onset Date Comments Advice 10/03/2022 Encounter Details Date Type Department Care Team Description 10/03/2022 Telephone Family Practice [facility] [address] [facility] [place] [address] Reyes Qureshi MD [address] [place] [address] [place] [phone] Advice Allergies Active Allergy Reactions Severity Noted [...] mRNA, LNP-s, No Pre serve, 2-Dose Series (Integrate) 03/04/2021,07/22/2020,07/01/2020 Hepatitis B Vaccine 03/26/1997 Pneumococcal Conjugate [...] Miscellaneous Notes * Telephone Encounter - JADYN Kate - 10/04/2022 12:18 PM EDT Patient called in, she states she has been wearing the compression socks since this morning but they are not helping and she fell again. She states it is from her knees to her feet. She wants to knowif maybe she bought the wrong socks and how she would know which ones to get? Offered to schedule appt but she states she can't walk too much on them. Please advise. * Telephone Encounter - JADYN Prather - 10/04/2022 8:35 AM EDT No answer, no vm. Second attempt. * Telephone Encounter - Ambar Maurer - 10/04/2022 8:12 AM EDT I talked to pt, she wanted to just cx appt in FP today and keep her appt on . She will see cardiology for the hospital [...] of rescheduling her hosp f/u,needs appt with Katieede cancelled for 10/04/2022. Pt prefers to see Dr. Maurer for hosp f/u, but will see CANVASS MANAGER, but only can do later in the [...] said they were swollen at Discharge from [facility] but no one seemed to care. [...] Description 10/18/2022 Imaging Radiology 10/18/2022 Laboratory Laboratory FrancisEvy greene Murphy [address] [place] [address] 10/18/2022 Office Visit Family Medicine Lalit Wiggins CRNP [address] [place] [address] 10/21/2022 Office Visit Family Medicine Zaira Betancourt CRNP [address] [place] [address] 11/02/2022 Office Visit Gastroenterology Rufina Alvarez CRNP [address] [place] [address] 11/09/2022 Office Visit Urology aShil Funk MD [address] [place] [address] [place] [address] 12/13/2022 Office Visit Cardiology Emery Kwan DO [address] [place] [address] 01/17/2023 Hospital Encounter Endoscopy Michael Alejandro MD [address] [place] [address] 01/17/2023 Surgery Endoscopy Michael Alejandro MD [address] [place] [address] COLONOSCOPY FLEXIBLE PROXIMAL DIAGNOSTIC 03/09/2023 Office Visit Family Medicine Hayes Maurer DO [address] [place] [address] Scheduled Procedures Name Priority Associated Diagnoses Date/Ti [...] D LEVEL ONCE IN A LIFETIME-USE SMARTSET# [id number] Completed 08/02/2011, 04/24/2009, 06/25/2008, Additional history exists Mammogram Discontinued 12/18/2014, 11/05, 12/22/2006, Additional history exists Pneumococcal Vaccine: 65+ Years Completed 08/10/2017, 06/14/2016 Alpha-1 Antitrypsin Completed 03/15/2022 LUNG CANCER SCREENING - USE SMARTSET 40125 Completed 06/23/2022, 10/15/2019, 2018, Additional history exists [...] colon documented in this encounter Care Teams Retail Operations Specialist Relationship Specialty Start Date End Date Hayes Maurer DO [address] [place] [address] PCP - General Family Medicine 04/04/19 documented as of this encounter
--- OUTSIDE RECORDS SUMMARY | 2023-02-27 13:01 | External Medical Summary | Summary of Care ---
Author Name Unknown Organization [facility] Address [address] [place] [address] Phone [phone] Care Team Providers Care Plate Grainer Name Role Phone Hayes Maurer DO Primary Care Provider Encounter Details Date Type Department Care Team Description 09/21/2022 Telephone Urology, [facility] [address] [place] [address] Sahil Funk MD [address] [facility] [place] [address] [facility] [address] Allergies Active Allergy Reactions Severity Noted Date [...] mRNA, LNP-s, No Pre serve, 2-Dose Series ([employer]) 03/04/2021,07/22/2020,07/01/2020 Pneumococcal Conjugate Vacc, 13 Valent (Prevnar) [...] encounter Miscellaneous Notes * Telephone Encounter - Preethi Murphy LPN - 09/21/2022 9:[address] Funk Patient would like to have stent placed BENITA, willing to go to [place] with Dr Villalba, but also has a lot questions that I am unable to answer. Are you able to reach out to her today to discuss further? 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 She may benefit from a trial of stent placement to see if this alleviates her symptoms. Patient is scheduled to follow-up in November 2022. Can be added on for earlier cysto, right retrograde and stent placement under sedation if she is continued to have severe symptoms. Thanks, HM documented in this encounter Plan of Treatment Upcoming Encounters Date Type Specialty Care Team Description 10/18/2022 Imaging Radiology 10/18/2022 Laboratory Laboratory Evy Francis [address] [place] [address] 10/18/2022 Office Visit Family Medicine Lalit Wiggins CRNP [address] [place] [address] 10/21/2022 Office Visit Family Medicine Zaira Betancourt CRNP [address] [place] [address] 11/02/2022 Office Visit Gastroenterology Rufina Alvarez CRNP [address] [place] [address] 11/09/2022 Office Visit Urology Sahil Funk MD [address] [place] [address] [place] [address] 12/13/2022 Office Visit Cardiology Emery Kwan DO [address] [place] [address] 01/17/2023 Hospital Encounter Endoscopy Michael Alejandro MD [address] [place] [address] 01/17/2023 Surgery Endoscopy Michael Alejandro MD [address] [place] [address] COLONOSCOPY FLEXIBLE PROXIMAL DIAGNOSTIC 03/09/2023 Office Visit Family Medicine Hayes Maurer DO [address] [place] [address] Scheduled Procedures Name Priority Associated Diagnoses Date/Ti me COLONOSCOPY FLEXIBLE PROXIMAL DIAGNOSTIC Recall History of colon polyps Special screening for malignant neoplasms, colon 01/17/2023 2:30 PM EST Health Maintenance Due Date Last Done Comments DISCUSS TOBACCO CESSATION (REFER TO SMARTSET #9800) 1950 Hepatitis B (2 of 3 - [...] D LEVEL ONCE IN A LIFETIME-USE SMARTSET# [id number] Completed 08/02/2011, 04/24/2009, 06/25/2008, Additional history exists Mammogram Discontinued 12/18/2014, 11/05, 12/22/2006, Additional history exists Pneumococcal Vaccine: 65+ Years Completed 08/10/2017, 06/14/2016 Alpha-1 Antitrypsin Completed 03/15/2022 LUNG CANCER SCREENING - USE SMARTSET 04223 Completed 06/23/2022, 10/15/2019, 2018, Additional history exists GARDASIL-HPV IMMUNIZATION SERIES Aged Out No longer eligible based on patient's age to complete this topic MENINGOCOCCAL (MENACTRA/MENVEO) Aged Out No longer eligible based on patient's age to complete this topic documented as of this encounter Medical Devices Not on filedocumented as of this encounter Care Teams Plate Grainer Relationship Specialty Start Date End Date Hayes Maurer [address] [place] [address] PCP - General Family Medicine 04/04/19 documented as of this encounter
--- OUTSIDE RECORDS SUMMARY | 2023-02-27 13:01 | External Medical Summary | Summary of Care ---
Author Name Unknown Organization [facility] Address [address] [place] [address] Phone [phone] Care Team Providers Care Mental Health Program Manager Name Role Phone Hayes Maurer Primary Care Provider Reason for Referral * Evaluate & Treat - Unlimited Visits (Within 10 days (routine)) - Authorized Specialty Diagnoses / Procedures Referred By Johanny t Referred To Contact Cardiovascular Medicine / Cardiology Diagnoses Generalized weakness Pulmonary hypertension (HCC) Reyes Qureshi MD [address] [place] [address] [place] [address] Referral ID Status Reason Start Date Expiration Date Visits Requested Visits Authorized [id number] Authorized Specialty Services Required 10/03/[phone] Question Answer Referral Priority Within 10 days (routine) To which of the following clinics are you referring your patient? General Cardiology Clinic Comments Pt recently hospitalized for dizziness, weakness. Bradycardia noted while in ER. Reason for Visit * Reason Onset Date Comments Advice 10/03/2022 Encounter Details Date Type Department Care Team Description 10/03/2022 Telephone Family Practice [facility] 132 [facility] [place] [address] Reyes Qureshi MD [address] [place] [address] [place] [phone] Advice Allergies Active Allergy Reactions Severity Noted [...] mRNA, LNP-s, No Pre serve, 2-Dose Series (FaceRig) 03/04/2021,07/22/2020,07/01/2020 Hepatitis B Vaccine 03/26/1997 Pneumococcal Conjugate [...] Telephone Encounter - Kalani Espinoza LPN - 10/04/2022 12:40 PM EDT [place], are you able to discuss this with Kaci? * Telephone Encounter - JADYN Kate - [...] Maurer for hosp f/u, but will see BIOCHEMISTRY PROFESSOR, but only can do later in the [...] said they were swollen at Discharge from [facility] but no one seemed to care. I [...] Imaging Radiology 10/18/2022 Laboratory Laboratory FrancisEvy greene [address] [place] [address] 10/18/2022 Office Visit Family Medicine Lalit Wiggins CRNP [address] [place] [address] 10/21/2022 Office Visit Family Medicine Zaira Betancourt CRNP [address] [place] [address] 11/02/2022 Office Visit Gastroenterology Rufina Alvarez CRNP [address] [place] [address] 11/09/2022 Office Visit Urology Sahil Funk MD [address] [facility] [address] [place] [address] 12/13/2022 Office Visit Cardiology Emery Kwan, [address] [place] [address] 01/17/2023 Hospital Encounter Endoscopy Michael Alejandro MD [address] [place] [address] 01/17/2023 Surgery Endoscopy Michael Alejandro MD [address] [place] [address] COLONOSCOPY FLEXIBLE PROXIMAL DIAGNOSTIC 03/09/2023 Office Visit Family Medicine Hayes aMurer DO [address] [place] [address] Scheduled Procedures Name Priority Associated Diagnoses Date/Ti [...] Comments DISCUSS TOBACCO CESSATION (REFER TO SMARTSET #6711) 1950 Hepatitis B (2 of 3 - [...] and Over 03/15/2023 03/15/2022 TSH 03/15/2023 03/15/2022, 12/3 , 10/01/2019, Additional history exists O2 ASSESSMENT COMPLETED IN PAST YEAR FOR COPD 07/20/2023 07/19/2022 Lipid Panel 03/15/2027 03/15/2022, 12/3 , 10/01/2019, Additional history exists VITAMIN D LEVEL ONCE IN A LIFETIME-USE SMARTSET# [id number] Completed 08/02/2011, 04/24/2009, 06/25/2008, Additional history exists Mammogram Discontinued 12/18/2014, 11/05, 12/22/2006, Additional history exists Pneumococcal Vaccine: 65+ Years Completed 08/10/2017, 06/14/2016 Alpha-1 Antitrypsin Completed 03/15/2022 LUNG CANCER SCREENING - USE SMARTSET 12254 Completed 06/23/2022, 10/15/2019, 2018, Additional history exists [...] colon documented in this encounter Care Teams Mental Health Program Manager Relationship Specialty Start Date End Date Hayes Maurer DO [address] [place] [address] PCP - General Family Medicine 04/04/19 documented as of this encounter
--- OUTSIDE RECORDS SUMMARY | 2023-02-27 13:01 | External Medical Summary | Summary of Care ---
Author Name Unknown Organization [facility] Address [address] [place] [address] Phone [phone] Care Team Providers Care Lesson Instructor Name Role Phone Hayes Maurer Primary Care Provider Reason for Referral * Evaluate & Treat - Unlimited Visits (Within 10 days (routine)) - Authorized Specialty Diagnoses / Procedures Referred By Johanny t Referred To Contact Cardiovascular Medicine / Cardiology Diagnoses Generalized weakness Pulmonary hypertension (HCC) Reyes Qureshi MD [address] [place] [address] [place] [address] Referral ID Status Reason Start Date Expiration Date Visits Requested Visits Authorized [id number] Authorized Specialty Services Required 10/03/[phone] Question Answer Referral Priority Within 10 days (routine) To which of the following clinics are you referring your patient? General Cardiology Clinic Comments Pt recently hospitalized for dizziness, weakness. Bradycardia noted while in ER. Reason for Visit * Reason Onset Date Comments Advice 10/03/2022 Encounter Details Date Type Department Care Team Description 10/03/2022 Telephone Family Practice [facility] [address] [facility] [place] [address] Reyes Qureshi MD [address] [place] [address] [place] [phone] Advice Allergies Active Allergy Reactions Severity Noted [...] mRNA, LNP-s, No Pre serve, 2-Dose Series (A[employer]ade) 03/04/2021,07/22/2020,07/01/2020 Hepatitis B Vaccine 03/26[birth year]1997 Pneumococcal Conjugate [...] Maurer for hosp f/u, but will see AUTOMATIC STEEL TIE ADJUSTER, but only can do later in the [...] said they were swollen at Discharge from [facility] but no one seemed to [...] Encounters Date Type Specialty Care Team Description 10/06/2022 Office Visit Family Medicine Edgar Aceves DO [address] [place] [address] 10/18/2022 Imaging Radiology 10/18/2022 Laboratory Laboratory Francis, [facility] Murphy [address] [place] [address] 10/18/2022 Office Visit Family Medicine Lalit Wiggins CRNP [address] [place] [address] 10/21/2022 Office Visit Family Medicine Zaira Betancourt CRNP [address] [place] [address] 11/02/2022 Office Visit Gastroenterology Rufina Alvarez CRNP [address] [place] [address] 11/09/2022 Office Visit Urology Sahil Funk MD [address] [facility] [address] [place] [address] 12/13/2022 Office Visit Cardiology Emery Kwan, DO [address] [place] [address] 01/17/2023 Hospital Encounter Endoscopy Michael Alejandro MD [address] [place] [address] 01/17/2023 Surgery Endoscopy Michael Alejandro MD [address] [place] [address] COLONOSCOPY FLEXIBLE PROXIMAL DIAGNOSTIC 03/09/2023 Office Visit Family Medicine Hayes Maurer, DO [address] [place] [address] Scheduled Procedures Name Priority Associated Diagnoses Date/Ti [...] D LEVEL ONCE IN A LIFETIME-USE SMARTSET# [id number] Completed 08/02/2011, 04/24/2009, 06/25/2008, Additional history exists Mammogram Discontinued 12/18/2014, 11/05, 12/22/2006, Additional history exists Pneumococcal Vaccine: 65+ Years Completed 08/10/2017, 06/14/2016 Alpha-1 Antitrypsin Completed 03/15/2022 LUNG CANCER SCREENING - USE SMARTSET [id number] Completed 06/23/2022, 10/15/2019, 2018, Additional history exists [...] colon documented in this encounter Care Teams Lesson Instructor Relationship Specialty Start Date End Date Hayes Maurer DO [address] [place] [address] PCP - General Family Medicine 04/04/19 documented as of this encounter
--- OUTSIDE RECORDS SUMMARY | 2023-02-27 13:01 | External Medical Summary ---
Author Name Unknown Address Unknown Organization [facility] - [address] [place] [address] Laboratory Report Ordering Provider Test Date Status JIMI BARTHOLOMEW 10/06/2022 17:03:53 Final Observation Date Value Abnormality Reference (Units ) Status T4, Free 10/06/2022 17:03:53 1.0 0.9-1.7 (n g/dL) Final Performing Location [facility] - [address] [place] [address]
--- OUTSIDE RECORDS SUMMARY | 2023-02-27 13:01 | External Medical Summary | Summary of Care ---
Author Name Unknown Organization [facility] Address [address] [place] [address] Phone [phone] Care Team Providers Care Tax Credit Leasing Consultant Name Role Phone Hayes Maurer Primary Care Provider Reason for Referral * Evaluate & Treat - Unlimited Visits (Within 10 days (routine)) - Authorized Specialty Diagnoses / Procedures Referred By Johanny t Referred To Contact Cardiovascular Medicine / Cardiology Diagnoses Generalized weakness Pulmonary hypertension (HCC) Reyes Qureshi MD [address] [place] [address] [place] [address] Referral ID Status Reason Start Date Expiration Date Visits Requested Visits Authorized [id number] Authorized Specialty Services Required 10/03/2022 999 999 Question Answer Referral Priority Within 10 days (routine) To which of the following clinics are you referring your patient? General Cardiology Clinic Comments Pt recently hospitalized for dizziness, weakness. Bradycardia noted while in ER. Reason for Visit * Reason Onset Date Comments Advice 10/03/2022 Encounter Details Date Type Department Care Team Description 10/03/2022 Telephone Family Practice [facility] [address] [facility] [place] [address] Reyes Qureshi MD [address] [place] [address] [place] [id number] Advice Allergies Active Allergy Reactions Severity Noted [...] mRNA, LNP-s, No Pre serve, 2-Dose Series (Benky[employer] Player) 03/04/2021,07/22/2020,07/01/2020 Hepatitis B Vaccine 03/26/1997 Pneumococcal Conjugate [...] LM for pt to call back to [facility] f/u * Telephone Encounter - JADYN [...] Maurer for hosp f/u, but will see GENERAL INTERNIST AND PHYSICIAN LEADER, but only can do later in the [...] said they were swollen at Discharge from [facility] but no one seemed to care. I [...] Preethi Jones CRNP [address] [place] [address] 10/18/2022 Imaging Radiology 10/18/2022 Laboratory Laboratory [facility], [facility] [address] [place] [address] 10/18/2022 Office Visit Family Medicine Lalit Wiggins CRNP [address] [place] [address] 10/21/2022 Office Visit Family Medicine Zaira Betancourt CRNP [address] [place] [address] 11/02/2022 Office Visit Gastroenterology Rufina Alvarez CRNP [address] [place] [address] 11/09/2022 Office Visit Urology Sahil Funk MD [address] [place] [address] [place] [address] 01/17/2023 Hospital Encounter Endoscopy Michael Alejandro MD [address] [place] [address] 01/17/2023 Surgery Endoscopy Michael Alejandro MD [address] [place] [address] COLONOSCOPY FLEXIBLE PROXIMAL DIAGNOSTIC 03/09/2023 Office Visit Family Medicine Hayes Maurer DO [address] [place] [address] Scheduled Procedures Name Priority Associated Diagnoses Date/Ti [...] D LEVEL ONCE IN A LIFETIME-USE SMARTSET# [id number] Completed 08/02/2011, 04/24/2009, 06/25/2008, Additional history exists Mammogram Discontinued 12/18/2014, 11/05, 12/22/2006, Additional history exists Pneumococcal Vaccine: 65+ Years Completed 08/10/2017, 06/14/2016 Alpha-1 Antitrypsin Completed 03/15/2022 LUNG CANCER SCREENING - USE SMARTSET [id number] Completed 06/23/2022, 10/15/2019, 2018, Additional history exists [...] colon documented in this encounter Care Teams Tax Credit Leasing Consultant Relationship Specialty Start Date End Date Hayes Maurer DO [address] [place] [address] PCP - General Family Medicine 04/04/19 documented as of this encounter
--- OUTSIDE RECORDS SUMMARY | 2023-02-27 13:01 | External Medical Summary | Summary of Care ---
Author Name Unknown Organization [facility] Address [address] [place] [address] Phone [phone] Care Team Providers Care Dianeticist Name Role Phone Hayes Maurer DO Primary Care Provider Reason for Referral * Evaluate & Treat - Unlimited Visits (Within 10 days (routine)) - Authorized Specialty Diagnoses / Procedures Referred By Johanny garcia Referred To Contact Cdl B Driver Diagnoses Medical home patient encounter Hayes Maurer DO [address] [place] [address] Referral ID Status Reason Start Date Expiration Date Visits Requested Visits Authorized [id number] Authorized Specialty Services Required 10/05/2022 1 1 Question Answer Referral Priority Within 10 days (routine) Program Type Case Management Complex Case Management [facility] Device(s) Requested Other (See Comment) Alarm Settings Standard per protocol Comments Primary Cdl B Driver: India Wilks RN Is the patient already enrolled with another [facility] [place]service? (If no, will need to "push the button") No Does the patient have a physical address? (If no, provide physical address if requesting device) Yes Requested Devices/IVR: IVR Post-Discharge Start date: 09/09/22 How many weeks: 4 If want time other than 9am, note time here: Reason for Visit * Reason Comments case management Encounter Details Date Type Department Care Team Description 10/05/2022 Cdl B DriverRetail Bakery Manager Practice [facility] [address] [place] [address] India Wilks RN Medical home patient encounter* Allergies Active [...] 30 Tablet 6 09/07/2022 Active Levothyroxine Sodium 75 MCG Oral Tablet [...] Progress Notes * India Wilks RN - 10/05/2022 11:11 AM EDT Cdl B Driver Progress Note: Date: 10/05/22 Assgned Patient Tier: 2 Connected with patient via phone. Verified patient name/. Advised patient that call is being recorded for quality and training purposes. Assessment: Pt. noted the following: She continues to have extensive bilateral lower leg edema. Also Having dizziness. Had bought some compression stockings, felt this made swelling worse. States "I can't believe the hospital discharged me with my legs looking this way!" She is having ongoing dizziness, has had a few falls at home. Is ambulating with a cane. Has stairs in her home. Declines PT, declines walker. Discussed possible home [facility] bluetooth BP cuff. She would like to further discuss this at her appointment tomorrow. works so she is home alone during the day. Denies wheezing, denies cough,stools are still loose, but improving. Increasing protein intake, Eating and drinking okay. Did you receive an alert for an annual wellness visit? No Is this call for a hospital, fpc or rehab facility discharge to home? Yes [facility] Medication Reconciliation: Medication Reconciliation completed: yes Review of Current goals: Discussed the following patient-centered CM goals with the patient during this discussion: -SAFETY: Prevent falls or injuries -Status: At Risk increased falls reported. -GI: Patient will have GI issues addressed -Status: On Track Has had some improvement with use of prevalite. -: Patient will have issues addressed -Status: On Track symptoms improved. COPD Patient: YES Breathing: Breathing at Baseline CHF Patient: NO CM Plan: Reviewed 3 Red Flags with patient. Advised to call CM with any of the following: Red Flag 1: worsening edmea, SOB, cough, falls/injury Remote Patient Monitoring: [facility] B/P Cuff Offered. Patient Agreeable. Will initiate process to have device sent/installed. patient would like to discuss with her tomorrow. Plan for Future Contacts: Plan to follow up within 1 week to check progress on the following goals/needs recovery from hospitalization. Planned contacts from the following parties will occur this week: PCP office visit as additional contacts per workflow. Advancement/Closure Plan: Keep patient at current Tier with reassessment per workflow. Patient provided CM contact information and encouraged to call with any changes in condition. SNP Member? No PCP Notified of enrollment in CM/HM program: Yes Is Provider in agreement with POC? Yes India Wilks, RN Outpatient Case Management documented in this encounter Plan of Treatment Upcoming Encounters Date Type Specialty Care Team Description 10/18/2022 Imaging Radiology 10/18/2022 Laboratory Laboratory [facility] [address] [place] [address] 10/18/2022 Office Visit Family Medicine Lalit Wiggins CRNP [address] [place] [address] 10/21/2022 Office Visit Family Medicine Zaira Betancourt CRNP [address] [place] [address] 11/02/2022 Office Visit Gastroenterology Rufina Alvarez CRNP [address] [place] [address] 11/09/2022 Office Visit Urology Sahil Funk MD [address] [facility] [address] [place] [address] 12/13/2022 Office Visit Cardiology Emery Kwan DO [address] [place] [address] 01/17/2023 Hospital Encounter Endoscopy Michael Alejandro MD [address] [place] [address] 01/17/2023 Surgery Endoscopy Michael Alejandro MD [address] [place] [address] COLONOSCOPY FLEXIBLE PROXIMAL DIAGNOSTIC 03/09/2023 Office Visit Family Medicine Hayes Maurer, [address] [place] [address] Scheduled Procedures Name Priority Associated Diagnoses Date/Ti me COLONOSCOPY FLEXIBLE PROXIMAL DIAGNOSTIC Recall History of colon polyps Special screening for malignant neoplasms, colon 01/17/2023 2:30 PM EST Scheduled Referrals Name Type Priority Associated Diagnoses Orde r Schedule REMOTE PATIENT MONITORING REFERRAL Referral Within 10 days (routine) Medical home patient encounter Ordered: 10/05/2022 Health Maintenance Due Date Last Done Comments [...] D LEVEL ONCE IN A LIFETIME-USE SMARTSET# [id number] Completed 08/02/2011, 04/24/2009, 06/25/2008, Additional history exists Mammogram Discontinued 12/18/2014, 11/05, 12/22/2006, Additional history exists Pneumococcal Vaccine: 65+ Years Completed 08/10/2017, 06/14/2016 Alpha-1 Antitrypsin Completed 03/15/2022 LUNG CANCER SCREENING - USE SMARTSET [id number] Completed 06/23/2022, 10/15/2019, 2018, Additional history exists [...] colon documented in this encounter Care Teams Dianeticist Relationship Specialty Start Date End Date Hayes Maurer DO [address] [place] [address] PCP - General Family Medicine 04/04/19 documented as of this encounter
--- OUTSIDE RECORDS SUMMARY | 2023-02-27 13:01 | External Medical Summary | Summary of Care ---
Author Name Unknown Organization [facility] Address [address] [place] [address] Phone [phone] Care Team Providers Care Yard General Car Supervisor Name Role Phone Hayes Maurer Primary Care Provider Reason for Referral * Evaluate & Treat - Unlimited Visits (Within 10 days (routine)) - Authorized Specialty Diagnoses / Procedures Referred By Johanny t Referred To Contact Cardiovascular Medicine / Cardiology Diagnoses Generalized weakness Pulmonary hypertension (HCC) Reyes Qureshi MD [address] [place] [address] [place] [address] Referral ID Status Reason Start Date Expiration Date Visits Requested Visits Authorized [id number] Authorized Specialty Services Required 10/03/2022 999 999 Question Answer Referral Priority Within 10 days (routine) To which of the following clinics are you referring your patient? General Cardiology Clinic Comments Pt recently hospitalized for dizziness, weakness. Bradycardia noted while in ER. Reason for Visit * Reason Onset Date Comments Advice 10/03/2022 Encounter Details Date Type Department Care Team Description 10/03/2022 Telephone Family Practice [facility] 132 [facility] [place] [address] Reyes Qureshi MD [address] [place] [address] [place] [id number] Advice Allergies Active Allergy Reactions Severity Noted [...] mRNA, LNP-s, No Pre serve, 2-Dose Series ([employer]) 03/04/2021,07/22/2020,07/01/2020 Hepatitis B Vaccine 03/26/1997 Pneumococcal Conjugate [...] LM [facility] * Telephone Encounter - JADYN Prather - 10/03/2022 1:42 PM EDT LMOM. Can offer this week with Dr Kwan. * Telephone Encounter - Ambar Maurer - 10/03/2022 12:32 PM EDT No answer/vm Will try later Cardio will call to schedule hospital f/u * Addendum Note - Catie York LPN - 10/03/2022 12:29 PM EDTAddended by: CATIE YORK on: 10/03/2022 12:29 PM Modules accepted: Orders * Telephone Encounter - Catie York LPN - 10/03/2022 10:44 AM EDT (FYI) Information given to pt as noted below. Scheduling--Please assist below. Pt states she is in need of rescheduling her hosp f/u,needs appt with [facility] cancelled for 10/04/2022. Pt prefers to see Dr. Maurer for hosp f/u, but will see UNIX SYSTEM ADMINISTRATOR, but only can do later in the [...] other problems - so I would likely recommend light over the counter compression socks and elevation of feet a few times daily for 30-60 min. * Telephone Encounter - Reyes Qureshi MD - 10/03/2022 7:38 AM EDT Kaci called me yesterday wanting to know what to do with her swollen legs and feet. She said they were swollen at Discharge from [facility] but no one seemed to [...] Imaging Radiology 10/18/2022 Laboratory Laboratory Evy Francis [address] [place] [address] 10/18/2022 Office Visit Family Medicine Lalit Wiggins CRNP [address] [place] [address] 10/21/2022 Office Visit Family Medicine Zaira Betancourt CRNP [address] [place] [address] 11/02/2022 Office Visit Gastroenterology Rufina Alvarez CRNP [address] [place] [address] 11/09/2022 Office Visit Urology Sahil Funk MD [address] [place] [address] [place] [id number] 01/17/2023 Hospital Encounter Endoscopy Michael Alejandro MD [address] [place] [address] 01/17/2023 Surgery Endoscopy Michael Alejandro MD [address] [place] [address] COLONOSCOPY FLEXIBLE PROXIMAL DIAGNOSTIC 03/09/2023 Office Visit Family Medicine Hayes Maurer DO [address] [place] [address] Scheduled Procedures Name Priority Associated Diagnoses Date/Ti [...] Comments DISCUSS TOBACCO CESSATION (REFER TO SMARTSET #[id number]) 1950 Hepatitis B (2 of 3 - [...] D LEVEL ONCE IN A LIFETIME-USE SMARTSET# [id number] Completed 08/02/2011, 04/24/2009, 06/25/2008, Additional history exists Mammogram Discontinued 12/18/2014, 11/05, 12/22/2006, Additional history exists Pneumococcal Vaccine: 65+ Years Completed 08/10/2017, 06/14/2016 Alpha-1 Antitrypsin Completed 03/15/2022 LUNG CANCER SCREENING - USE SMARTSET [id number] Completed 06/23/2022, 10/15/2019, 2018, Additional history exists [...] colon documented in this encounter Care Teams Yard General Car Supervisor Relationship Specialty Start Date End Date Hayes Maurer DO [address] [place] [address] PCP - General Family Medicine 04/04/19 documented as of this encounter
--- OUTSIDE RECORDS SUMMARY | 2023-02-27 13:01 | External Medical Summary | Summary of Care ---
Author Name Unknown Organization [facility] Address [address] [place] [address] Phone [phone] Care Team Providers Care Evaporator Supervisor Name Role Phone Hayes Maurer DO Primary Care Provider Reason for Referral * Evaluate & Treat - Unlimited Visits (Within 10 days (routine)) - Authorized Specialty Diagnoses / Procedures Referred By Johanny garcia Referred To Contact Package Liner Diagnoses Medical home patient encounter Hayes Maurer DO [address] [place] [address] Referral ID Status Reason Start Date Expiration Date Visits Requested Visits Authorized [id number] Authorized Specialty Services Required 10/05/2022 1 1 Question Answer Referral Priority Within 10 days (routine) Program Type Case Management Complex Case Management [facility] Health Device(s) Requested Other (See Comment) Alarm Settings Standard per protocol Comments Primary Package Liner: India Wilks RN Is the patient already enrolled with another [facility] device/service? (If no, will need to "push the button") No Does the patient have a physical address? (If no, provide physical address if requesting device) Yes Requested Devices/IVR: IVR Post-Discharge Start date: 09/09/22 How many weeks: 4 If want time other than 9am, note time here: Reason for Visit * Reason Comments case management Encounter Details Date Type Department Care Team Description 10/05/2022 Package LinerMotor Tune Up Specialist Practice [facility] [address] [place] [address] India Wilks RN Medical home patient encounter* Allergies Active Allergy Reactions Severity Noted Date Comments Morphine 03/26/1997 Shock, dyspnea Other reaction(s): shock, dspnea Neomycin 04/07/2013 documented as of this encounter (statuses as of 10/05/2022) Medications Medication Sig Dispensed Refills Start Date [...] the morning. 90 Tablet 3 09/08/2022 Active Cholestyramine Light 4 GM/DOSE Oral Powder (Prevalite) Take by mouth daily as needed for Diarrhea. 0 Active documented as of this encounter (statuses as of 10/05/2022) Active Problems Problem Noted Date COPD, group [...] as of this encounter (statuses as of 10/05/2022) Resolved Problems Problem Noted Date Resolved Date [...] as of this encounter (statuses as of 10/05/2022) Immunizations Name Administration Dates Next Due COVID-19 mRNA, LNP-s, No Pre serve, 2-Dose Series (Symetrica) 03/04/2021,07/22/2020,07/01/2020 Pneumococcal Conjugate Vacc, 13 Valent (Prevnar) [...] Wilks RN - 10/05/2022 11:11 AM EDT Package Liner Progress Note: Date: 10/05/22 Assgned Patient Tier: 2 Connected with patient via phone. Verified patient name/. Advised patient that call is being recorded for quality and training purposes. Assessment: Pt. noted the following: She continues to have extensive bilateral lower leg edema. Having dizziness to BLE. Had bought some compression stockings, felt this made swelling worse. States "I can't believe the hospital discharged me with my legs looking this way!" She is having ongoing dizziness, has had a few falls at home. Is ambulating with a cane. Has stairs in her home. Declines PT, declines walker. Discussed possible home [facility] bluetooth BP cuff. She would like to further discuss this at her appointment tomorrow. works so she is home alone during the day. Denies wheezing, denies cough, stools are still loosed, but improving. Increasing protein intake, Eating and drinking okay. Did you receive an alert for an annual wellness visit? No Is this call for a hospital, custodial or rehab facility discharge to home? Yes [facility] Medication Reconciliation: Medication Reconciliation completed: yes [...] edmea, SOB, cough, falls/injury Remote Patient Monitoring: [facility] B/P Cuff Offered. Patient Agreeable. Will initiate [...] Description 10/06/2022 Office Visit Family Medicine Edgar Aceves, [address] [place] [address] 10/18/2022 Imaging Radiology 10/18/2022 Laboratory Laboratory [facility] [address] [place] [address] 10/18/2022 Office Visit Family Medicine Lalit Wiggins CRNP [address] [place] [address] 10/21/2022 Office Visit Family Medicine Zaira Betancourt CRNP [address] [place] [address] 11/02/2022 Office Visit Gastroenterology Rufina Alvarez CRNP [address] [place] [address] 11/09/2022 Office Visit Urology Sahil Funk MD [address] [facility] [address] [place] [address] 12/13/2022 Office Visit Cardiology Emery Kwan, [address] [place] [address] 01/17/2023 Hospital Encounter Endoscopy Michael Alejandro MD [address] [place] [address] 01/17/2023 Surgery Endoscopy Michael Alejandro MD [address] [place] [address] COLONOSCOPY FLEXIBLE PROXIMAL DIAGNOSTIC 03/09/2023 Office Visit Family Medicine Hayes Maurer DO [address] [place] [address] Scheduled Procedures Name Priority Associated Diagnoses Date/Ti [...] D LEVEL ONCE IN A LIFETIME-USE SMARTSET# [id number] Completed 08/02/2011, 04/24/2009, 06/25/2008, Additional history exists Mammogram Discontinued 12/18/2014, 11/05, 12/22/2006, Additional history exists Pneumococcal Vaccine: 65+ Years Completed 08/10/2017, 06/14/2016 Alpha-1 Antitrypsin Completed 03/15/2022 LUNG CANCER SCREENING - USE SMARTSET [id number] Completed 06/23/2022, 10/15/2019, 2018, Additional history exists [...] colon documented in this encounter Care Teams Evaporator Supervisor Relationship Specialty Start Date End Date Hayes Maurer, [address] [place] [address] PCP - General Family Medicine 04/04/19 documented as of this encounter
--- OUTSIDE RECORDS SUMMARY | 2023-02-27 13:01 | External Medical Summary | Summary of Care ---
Author Name Unknown Organization [facility] Address [address] [place] [address] Phone [phone] Care Team Providers Care Table Top Tile Setter Name Role Phone Hayes Maurer DO Primary Care Provider Reason for Visit * Reason Onset Date Comments Appointment 10/04/2022 Encounter Details Date Type Department Care Team Description 10/04/2022 Telephone Family Practice [facility] [address] [place] [address] Hayes Maurer DO [address] [place] [address] Appointment Allergies Active Allergy Reactions Severity Noted [...] mRNA, LNP-s, No Pre serve, 2-Dose Series (Auto Load [employer]) 03/04/2021,07/22/2020,07/01/2020 Pneumococcal Conjugate Vacc, 13 Valent (Prevnar) [...] Telephone Encounter - Danae Amaya LPN - 10/04/2022 4:01 PM EDT An appointment was made with pt for 10/06/[address] Aceves for Hosp F/u and leg swelling. * Telephone Encounter - JADYN Jarrell - 10/04/2022 1:31 PM EDT No Appointments Available Patient declined appointments?: Yes What Visit Type is needed? Acute If Acute Visit Type is needed, were surrounding clinics offered to patient (Yes/No)? N/A Was patient offered appointments with other available providers (Yes/No)? N/A See Call Details? (Yes or No): No documented in this encounter Plan of Treatment Upcoming Encounters Date Type Specialty Care Team Description 10/06/2022 Office Visit Family Medicine Edgar Aceves DO [address] [place] [address] 10/18/2022 Imaging Radiology 10/18/2022 Laboratory Laboratory [facility] [address] [place] [address] 10/18/2022 Office Visit Family Medicine Lalit Wiggins CRNP [address] [place] [address] 10/21/2022 Office Visit Family Medicine Asia ZairaFARTUN Oropeza [address] [place] [address] 11/02/2022 Office Visit Gastroenterology Rufina Alvarez CRNP [address] [place] [address] 11/09/2022 Office Visit Urology Sahil Funk MD [address] [place] [address] [place] [address] 12/13/2022 Office Visit Cardiology Emery Kwan, [address] [place] [address] 01/17/2023 Hospital Encounter Endoscopy Michael Alejandro MD [address] [place] [address] 01/17/2023 Surgery Endoscopy Michael Alejandro MD [address] [place] [address] COLONOSCOPY FLEXIBLE PROXIMAL DIAGNOSTIC 03/09/2023 Office Visit Family Medicine Hayes Maurer DO [address] [place] [address] Scheduled Procedures Name Priority Associated Diagnoses Date/Ti me COLONOSCOPY FLEXIBLE PROXIMAL DIAGNOSTIC Recall History of colon polyps Special screening for malignant neoplasms, colon 01/17/2023 2:30 PM EST Health Maintenance Due Date Last Done Comments DISCUSS TOBACCO CESSATION (REFER TO SMARTSET #3414) 1950 Hepatitis B (2 of 3 - [...] COPD 07/20/2023 07/19/2022 Lipid Panel 03/15/2027 03/15/2022, 123 , 10/01/2019, Additional history exists VITAMIN D LEVEL ONCE IN A LIFETIME-USE SMARTSET# [id number] Completed 08/02/2011, 04/24/2009, 06/25/2008, Additional history exists Mammogram Discontinued 12/18/2014, 11/05, 12/22/2006, Additional history exists Pneumococcal Vaccine: 65+ Years Completed 08/10/2017, 06/14/2016 Alpha-1 Antitrypsin Completed 03/15/2022 LUNG CANCER SCREENING - USE SMARTSET [id number] Completed 06/23/2022, 10/15/2019, 2018, Additional history exists GARDASIL-HPV IMMUNIZATION SERIES Aged Out No longer eligible based on patient's age to complete this topic MENINGOCOCCAL (MENACTRA/MENVEO) Aged Out No longer eligible based on patient's age to complete this topic documented as of this encounter Medical Devices Not on filedocumented as of this encounter Care Teams Table Top Tile Setter Relationship Specialty Start Date End Date Hayes Maurer DO [address] [place] [address] PCP - General Family Medicine 04/04/19 documented as of this encounter
--- OUTSIDE RECORDS SUMMARY | 2023-02-27 13:01 | External Medical Summary | Summary of Care ---
Author Name Unknown Organization [facility] Address [address] [place] [address] Phone [phone] Care Team Providers Care Wire Rope Fabrication Supervisor Name Role Phone Hayes Maurer Primary Care Provider Reason for Referral * Evaluate & Treat - Unlimited Visits (Within 10 days (routine)) - Authorized Specialty Diagnoses / Procedures Referred By Johanny t Referred To Contact Cardiovascular Medicine / Cardiology Diagnoses Generalized weakness Pulmonary hypertension (HCC) Reyes Qureshi MD [address] [place] [address] [place] [address] Referral ID Status Reason Start Date Expiration Date Visits Requested Visits Authorized [id number] Authorized Specialty Services Required 10/03/2022 999 999 Question Answer Referral Priority Within 10 days (routine) To which of the following clinics are you referring your patient? General Cardiology Clinic Comments Pt recently hospitalized for dizziness, weakness. Bradycardia noted while in ER. Reason for Visit * Reason Onset Date Comments Advice 10/03/2022 Encounter Details Date Type Department Care Team Description 10/03/2022 Telephone Family Practice [facility] 132 [facility] [place] [address] Reyes Qureshi MD [address] [place] [address] [place] [phone] Advice Allergies Active Allergy Reactions Severity Noted [...] mRNA, LNP-s, No Pre serve, 2-Dose Series ([employer]) 03/04/2021,07/22/2020,07/01/2020 Hepatitis B Vaccine 03/26/1997 Pneumococcal [...] Telephone Encounter - India Wilks RN - 10/04/2022 4:17 PM EDT Call placed to patient as she was referred to CM for post discharge. No answer, LMTRC. * Telephone Encounter - Kalani Espinoza LPN [...] Maurer for hosp f/u, but will see [employer], but only can do later in the [...] my feet.) * Telephone Encounter - Hayes Maurer, DO - 10/03/2022 8:28 AM EDT Appears [...] said they were swollen at Discharge from [facility] but no one seemed to care. [...] Edgar Aceves DO [address] [place] [address] 10/18/2022 Imaging Radiology 10/18/2022 Laboratory Laboratory Francis, [facility] [address] [place] [address] 10/18/2022 Office Visit Family Medicine Lalit Wiggins CRNP [address] [place] [address] 10/21/2022 Office Visit Family Medicine Zaira Betancourt CRNP [address] [place] [address] 11/02/2022 Office Visit Gastroenterology Rufina Alvarez CRNP [address] [place] [address] 11/09/2022 Office Visit Urology Sahil Funk MD [address] [place] [address] [place] [address] 12/13/2022 Office Visit Cardiology Emery Kwan, DO [address] [place] [address] 01/17/2023 Hospital Encounter Endoscopy Michael Alejandro MD [address] [place] [address] 01/17/2023 Surgery Endoscopy Michael Alejandro MD [address] [place] [address] COLONOSCOPY FLEXIBLE PROXIMAL DIAGNOSTIC 03/09/2023 Office Visit Family Medicine Hayes Maurer, [address] [place] [address] Scheduled Procedures Name Priority Associated Diagnoses Date/Ti [...] D LEVEL ONCE IN A LIFETIME-USE SMARTSET# [id number] Completed 08/02/2011, 04/24/2009, 06/25/2008, Additional history exists Mammogram Discontinued 12/18/2014, 11/05, 12/22/2006, Additional history exists Pneumococcal Vaccine: 65+ Years Completed 08/10/2017, 06/14/2016 Alpha-1 Antitrypsin Completed 03/15/2022 LUNG CANCER SCREENING - USE SMARTSET [id number] Completed 06/23/2022, 10/15/2019, 2018, Additional history exists [...] colon documented in this encounter Care Teams Wire Rope Fabrication Supervisor Relationship Specialty Start Date End Date Hayes Maurer DO [address] [place] [address] PCP - General Family Medicine 04/04/19 documented as of this encounter
--- OUTSIDE RECORDS SUMMARY | 2023-02-27 13:01 | External Medical Summary | Summary of Care ---
Author Name Unknown Organization [facility] Address [address] [place] [address] Phone [phone] Care Team Providers Care Christmas Tree Contractor Name Role Phone Hayes Maurer Primary Care Provider Reason for Visit * Reason Comments case management Encounter Details Date Type Department Care Team Description 10/04/2022 [employer] Program[employer] [facility] [address] [place] [address] [place] [...] mRNA, LNP-s, No Pre serve, 2-Dose Series ([employer]) 03/04/2021,07/22/2020,07/01/2020 Pneumococcal Conjugate Vacc, 13 Valent (Prevnar) [...] Progress Notes * India Wilks RN - 10/04/2022 9:48 AM EDT 1. Follow-up Post Discharge 2. Attempted Phone Call First Attempt 3. Call Outcome Left Voicemail/Message 4. Plan To attempt another outreach documented in this encounter Plan of Treatment Upcoming Encounters Date Type Specialty Care Team Description 10/18/2022 Imaging Radiology 10/18/2022 Laboratory Laboratory Francis, [facility] [address] [place] [address] 10/18/2022 Office Visit Family Medicine Lalit Wiggins CRNP [address] [place] [address] 10/21/2022 Office Visit Family Medicine Zaira Betancourt CRNP [address] [place] [address] 11/02/2022 Office Visit Gastroenterology Rufina Alvarez CRNP [address] [place] [address] 11/09/2022 Office Visit Urology Sahil Funk MD [address] [address] [place] [id number] 12/13/2022 Office Visit Cardiology Emery wKan, DO [address] [place] [address] 01/17/2023 Hospital Encounter Endoscopy Michael Alejandro MD [address] [place] [address] 01/17/2023 Surgery Endoscopy Michael Alejandro MD [address] [place] [address] COLONOSCOPY FLEXIBLE PROXIMAL DIAGNOSTIC 03/09/2023 Office Visit Family Medicine Hayes Maurer, [address] [place] [address] Scheduled Procedures Name Priority Associated Diagnoses Date/Ti me COLONOSCOPY FLEXIBLE PROXIMAL DIAGNOSTIC Recall History of colon polyps Special screening for malignant neoplasms, colon 01/17/2023 2:30 PM EST Health Maintenance Due Date Last Done Comments DISCUSS TOBACCO CESSATION (REFER TO SMARTSET #6932) 1950 Hepatitis B (2 of 3 - [...] D LEVEL ONCE IN A LIFETIME-USE SMARTSET# [id number] Completed 08/02/2011, 04/24/2009, 06/25/2008, Additional history exists Mammogram Discontinued 12/18/2014, 11/05, 12/22/2006, Additional history exists Pneumococcal Vaccine: 65+ Years Completed 08/10/2017, 06/14/2016 Alpha-1 Antitrypsin Completed 03/15/2022 LUNG CANCER SCREENING - USE SMARTSET 11883 Completed 06/23/2022, 10/15/2019, 2018, Additional history exists [...] colon documented in this encounter Care Teams Christmas Tree Contractor Relationship Specialty Start Date End Date Hayes Maurer DO [address] [place] [address] PCP - General Family Medicine 04/04/19 documented as of this encounter
--- OUTSIDE RECORDS SUMMARY | 2023-02-27 13:01 | External Medical Summary | Summary of Care ---
Author Name Unknown Organization [facility] Address [address] [place] [address] Phone [phone] Care Team Providers Care Management Retail Intern Name Role Phone Hayes Maurer Primary Care Provider Reason for Referral * Evaluate & Treat - Unlimited Visits (Within 10 days (routine)) - Authorized Specialty Diagnoses / Procedures Referred By Johanny t Referred To Contact Cardiovascular Medicine / Cardiology Diagnoses Generalized weakness Pulmonary hypertension (HCC) Reyes Qureshi MD [address] [place] [address] [place] [address] Referral ID Status Reason Start Date Expiration Date Visits Requested Visits Authorized [id number] Authorized Specialty Services Required 10/03/2022 999 999 [...] Team Description 10/03/[address] [facility] 132 [facility] [place] [address] Reyes Qureshi MD [address] [place] [address] [place] [phone] Advice Allergies Active Allergy Reactions Severity Noted [...] mRNA, LNP-s, No Pre serve, 2-Dose Series ([employer]) 03/04/2021,07/22/2020,07/01/2020 Hepatitis B Vaccine 03/26/1997 Pneumococcal Conjugate [...] Telephone Encounter - JADYN Prather - 10/04/2022 4:29 PM EDT I see pt scheduled for 12/13/[address] Kwan. * Telephone Encounter - India Wilks RN [...] 15. She will see cardiology for the [facility] f/u-she is going to call them today * Telephone Encounter - Ambar Maurer - 10/03/2022 2:37 PM EDT LM for pt to call back to [facility] f/u * Telephone Encounter - JADYN [...] Maurer for hosp f/u, but will see SAMPLE [employer]OR MAKER, but only can do later in the [...] they were swollen at Discharge from [facility] but no one seemed to care. I [...] Edgar Aceves DO [address] [place] [address] 10/18/2022 Imaging Radiology 10/18/2022 Laboratory Laboratory Evy Francis [address] [place] [address] 10/18/2022 Office Visit Family Medicine Lalit Wiggins CRNP [address] [place] [address] 10/21/2022 Office Visit Family Medicine Zaira Betancourt CRNP [address] [place] [address] 11/02/2022 Office Visit Gastroenterology Rufina Alvarez CRNP [address] [place] [address] 11/09/2022 Office Visit Urology Sahil Funk MD [address] [place] [address] [place] [id number] 12/13/2022 Office Visit Cardiology Emery Kwan, [address] [place] [address] 01/17/2023 Hospital Encounter Endoscopy Michael Alejandro MD [address] [place] [address] 01/17/2023 Surgery Endoscopy Michael Alejandro MD [address] [place] [address] COLONOSCOPY FLEXIBLE PROXIMAL DIAGNOSTIC 03/09/2023 Office Visit Family [facility] Hayes Maurer DO [address] [place] [address] Scheduled Procedures Name Priority Associated Diagnoses Date/Ti [...] Comments DISCUSS TOBACCO CESSATION (REFER TO SMARTSET #6361) 1950 Hepatitis B (2 of 3 - [...] D LEVEL ONCE IN A LIFETIME-USE SMARTSET# [id number] Completed 08/02/2011, 04/24/2009, 06/25/2008, Additional history exists Mammogram Discontinued 12/18/2014, 11/05, 12/22/2006, Additional history exists Pneumococcal Vaccine: 65+ Years Completed 08/10/2017, 06/14/2016 Alpha-1 Antitrypsin Completed 03/15/2022 LUNG CANCER SCREENING - USE SMARTSET [id number] Completed 06/23/2022, 10/15/2019, 2018, Additional history exists [...] colon documented in this encounter Care Teams Management Retail Intern Relationship Specialty Start Date End Date Hayes Maurer DO [address] [place] [address] PCP - General Family Medicine 04/04/19 documented as of this encounter
--- OUTSIDE RECORDS SUMMARY | 2023-02-27 13:01 | External Medical Summary | Summary of Care ---
Author Name Unknown Organization [facility] Address [address] [place] [address] Phone [phone] Care Team Providers Care Customer Service Coordinator Name Role Phone Hayes Maurer Primary Care Provider Reason for Referral * Evaluate & Treat - Unlimited Visits (Within 10 days (routine)) - Authorized Specialty Diagnoses / Procedures Referred By Johanny t Referred To Contact Cardiovascular Medicine / Cardiology Diagnoses Generalized weakness Pulmonary hypertension (HCC) Reyes Qureshi MD [address] [place] [address] [place] [address] Referral ID Status Reason Start Date Expiration Date Visits Requested Visits Authorized [id number] Authorized Specialty Services Required 10/03/2022 999 999 Question Answer Referral Priority Within 10 days (routine) To which of the following clinics are you referring your patient? General Cardiology Clinic Comments Pt recently hospitalized for dizziness, weakness. Bradycardia noted while in ER. Reason for Visit * Reason Onset Date Comments Advice 10/03/2022 Encounter Details Date Type Department Care Team Description 10/03/2022 Telephone Family Practice [facility] 132 [facility] [place] [address] Reyes Qureshi MD [address] [place] [address] [place] [phone] Advice Allergies Active Allergy Reactions Severity Noted [...] mRNA, LNP-s, No Pre serve, 2-Dose Series ([employer]) 03/04/2021,07/22/2020,07/01/2020 Hepatitis B Vaccine 03/26/1997 Pneumococcal Conjugate [...] 15. She will see cardiology for the [facility] f/u-she is going to call them today * Telephone Encounter - Ambar Maurer - 10/03/2022 2:37 PM EDT LM for pt to call back to [facility] f/u * Telephone Encounter - JADYN [...] Maurer for hosp f/u, but will see [employer], but only can do later in the [...] said they were swollen at Discharge from [facility] but no one seemed to [...] Edgar Aceves DO [address] [place] [address] 10/18/2022 Imaging Radiology 10/18/2022 Laboratory Laboratory Evy Francis [address] [place] [address] 10/18/2022 Office Visit Family Medicine Lalit Wiggins CRNP [address] [place] [address] 10/21/2022 Office Visit Family Medicine Zaira Betancourt CRNP [address] [place] [address] 11/02/2022 Office Visit Gastroenterology Rufina Alvarez CRNP [address] [place] [address] 11/09/2022 Office Visit Urology Sahil Funk MD [address] [place] [address] [place] [id number] 12/13/2022 Office Visit Cardiology Emery Kwan, [address] [place] [address] 01/17/2023 Hospital Encounter Endoscopy Michael Alejandro MD [address] [place] [address] 01/17/2023 Surgery Endoscopy Michael Alejandro MD [address] [place] [address] COLONOSCOPY FLEXIBLE PROXIMAL DIAGNOSTIC 03/09/2023 Office Visit Family [facility] Hayes Maurer DO [address] [place] [address] Scheduled Procedures Name Priority Associated Diagnoses Date/Ti [...] Comments DISCUSS TOBACCO CESSATION (REFER TO SMARTSET #8401) 1950 Hepatitis B (2 of 3 - [...] D LEVEL ONCE IN A LIFETIME-USE SMARTSET# [id number] Completed 08/02/2011, 04/24/2009, 06/25/2008, Additional history exists Mammogram Discontinued 12/18/2014, 11/05, 12/22/2006, Additional history exists Pneumococcal Vaccine: 65+ Years Completed 08/10/2017, 06/14/2016 Alpha-1 Antitrypsin Completed 03/15/2022 LUNG CANCER SCREENING - USE SMARTSET 64450 Completed 06/23/2022, 10/15/2019, 2018, Additional history exists [...] documented in this encounter Care Teams Customer Service Coordinator Relationship Specialty Start Date End Date Hayes Maurer DO [address] [place] [address] PCP - General Family Medicine 04/04/19 documented as of this encounter
--- OUTSIDE RECORDS SUMMARY | 2023-02-27 13:01 | External Medical Summary ---
Author Name Unknown Address Unknown Organization K01:[facility] [place] [address] [place] [address] Laboratory Report Ordering Provider Test Date Status FLORIDAHANNA WOOTENO 10/06/2022 17:03:53 Final Observation Date Value Abnormality Reference (Units ) Status TSH 10/06/2022 17:03:53 33.00 Above high normal 0. 27-4.20 (uIU/mL) Final Performing Location [facility] - [address] [place] [address]
--- OUTSIDE RECORDS SUMMARY | 2023-02-27 13:02 | External Medical Summary | Summary of Care ---
Author Name Unknown Organization [facility] Address [address] [place] [address] Phone [phone] Care Team Providers Care Pallet Repairer Name Role Phone Joanie Maurer DO Primary Care Provider Reason for Referral * Ancillary Services (Within 3 days (urgent)) - Authorized Specialty Diagnoses / Procedures Referred By Johanny garcia Referred To Contact Gastroenterology Diagnoses Special screening for malignant neoplasms, colon Joanie Maurer DO [address] [place] [address] Referral ID Status Reason Start Date Expiration Date Visits Requested Visits Authorized [id number] Authorized Ancillary Services Required 09/22/2022 999 999 Question Answer Referral Priority Within 3 days (urgent) Comments ALERT: Do not order for pediatric patients (18 years or younger). Cancel off screen and order PEDS GASTROENTEROLOGY CONSULT (Type: 1 visit only-Evaluate and Treat) The following Pt. Instructions are available: - Gastro Colonoscopy Prep Instructions [29331] - Gastro Colonoscopy Prep Instructions (Colombian Version) [[id number]] Go to the Pt. Instructions section within the Visit Navigator to access. Colonoscopy ASGE Guidelines: Average risk screening (begin at age 50, 10 year intervals) ADDITIONAL INFORMATION 1. Is the patient on Coumadin? No 2. Is the patient on Pradaxa? No * Evaluate & Treat - Unlimited Visits (Within 3 days (urgent)) - Authorized Specialty Diagnoses / Procedures Referred By Johanny garcia Referred To Contact Psychology Diagnoses Severe protein-calorie malnutrition (HCC) Joanie Maurer DO [address] [place] [address] Referral ID Status Reason Start Date Expiration Date Visits Requested Visits Authorized [id number] Authorized Specialty Services Required 09/22/2022 999 999 Question Answer Referral Priority Within 3 days (urgent) Is this referral for medication management? No Referral To [facility] Reason for Referral: Weight/Eating/Bariatric Surgery Specific Condition? Anorexia/Bulimia/ or AFRID Comments Inability to eat - while there may be some organic component here also think That patient has psych overlay to her symptoms and would benefit from tools to help * Evaluate & Treat - Unlimited Visits (Within 3 days (urgent)) - Authorized Specialty Diagnoses / Procedures Referred By Contact Referred To Contact GI NUTRITION/IM / Gastroenterology Diagnoses Severe protein-calorie malnutrition (HCC) Joanie Maurer DO [address] [place] [address] Referral ID Status Reason Start Date Expiration Date Visits Requested Visits Authorized [id number] Authorized Specialty Services Required 09/22/2022 999 999 Question Answer Referral Priority Within 3 days (urgent) For what condition is the patient being seen? Malnutrition Comments Patient with malnutrition and poor PO intake due to ongoing GI distress - lack of ability to tolerate food Need help with GI-nutrition Reason for Visit * Reason Onset Date Comments Advice 09/21/2022 Status of messag e Encounter Details Date Type Department Care Team Description 09/21/2022 Telephone Family Practice [facility] [address] [address] Joanie Maurer DO [address] [place] [address] Advice (Status of message) Allergies Active Allergy Reactions Severity Noted Date Comments Morphine 03/26/1997 Shock, dyspnea Other reaction(s): shock, dspnea Neomycin 04/07/2013 documented as of this encounter (statuses as of 09/22/2022) Medications Medication Sig Dispensed Refills Start Date [...] as of this encounter (statuses as of 09/22/2022) Active Problems Problem Noted Date COPD, group [...] as of this encounter (statuses as of 09/22/2022) Resolved Problems Problem Noted Date Resolved Date [...] as of this encounter (statuses as of 09/22/2022) Immunizations Name Administration Dates Next Due COVID-19 mRNA, LNP-s, No Pre serve, 2-Dose Series ([employer]) 03/04/2021,07/22/2020,07/01/2020 Hepatitis B Vaccine 03/26/1997 Pneumococcal Conjugate [...] encounter Miscellaneous Notes * Addendum Note - Joanie Maurer DO - 09/22/2022 6:05 PM EDTAddended by: JOANIE MAURER on: 09/22/2022 06:05 PM Modules accepted: Orders * Telephone Encounter - Joanie Maurer DO - 09/22/2022 6:00 PM EDT I would like to get labs and screenings done for patient prior to her next appointment in clinic. This will include screenings to make sure no cancer is seen which could be causing her weight loss: -mammography -labs can be done anytime now -when was her last pap? -need colonoscopy to be performed - she is due and this may help find reason for weight loss * Telephone Encounter - Joanie Maurer DO - 09/22/2022 5:44 PM EDT Please let patient know: Nobody is trying to pass her around We are actually trying to find someone or something that could actually help her. I haven't seen her once in an actual clinic visit for this, I have just been pulled into nursing visits where she has begun to talk about her issues and I have tried to speak with her and weigh in. i'm fine with her not seeing Psychology but I think if there is any way we can get a sooner GI appointment that would be the most helpful thing we could do for her. We need to help her be more proactive in visits over the next 6 months so we can sequentially work through this and try to work up * Telephone Encounter - JADYN Ayala - 09/22/2022 4:08 PM EDT appt added to waitlist * Telephone Encounter - Teresa Cuba LPN - 09/22/2022 3:20 PM EDT Provider to address: Pt is calling. Wants to relay to PCP that she is eating whole big meals. Eats fruit, potatoes and meats. Does not lack an appetite, is still eating. Is taking all of her medication. Is getting dizzy to the point she has to sit down so she does not fall. Feels tired and wiped out. Falls asleep during the, even with just sitting down. Is not vomiting. Has formed stools that have a yellow color to her BM's. Made pt aware of message from PCP. States that she has nothing psychological going on. Feels that she is just getting tossed around and everyone is "throwing stones" at her weight loss. States that she does not want to see psychology. Also states that if she needed it, she would go. Feels that it would be a waste of time. Continues to state that she does not want to go to the ER because all they will do is the same testing over and over again. Please advise. Reason for Call: Advice (Status of message) Contact: Telephone Call Contact Type: Care Coordination Total Time including non face to face (minutes): 20 * Telephone Encounter - JADYN Perera - 09/22/2022 3:13 PM EDT Reason for patient's call: asking to speak to nurse about medical advice Caller was transferred to [place] at the nurse line. * Telephone Encounter - Ambar Maurer - 09/22/2022 1:12 PM EDT Pt is already scheduled with GI and GI nutrition in October. I will send them this message to triagefor sooner appts. Thanks! Nursing, when you call pt please inform pt that psychology referral placed and we can do video in [facility] or she can call local office for in person but she will need to self schedule that. * Telephone Encounter - Joanie Maurer DO - 09/22/2022 1:02 PM EDT During last nurse visit discussed this with the patient at length - Would love sooner GI visit than October Would also love GI Nutrition to eval patient Nothing organic has been found so far regarding her weight loss and inability to eat. To me it seemed like she had a calorie deficit due to avoiding many different foods. Multiple sets of imaging have been performed and have been unable to find a true cause from a physiological standpoint. I think the combination of psychology and GI nutrition may be our best bet here to get her eating more consistently and help evaluate for any other eating related disorders? * Telephone Encounter - JADYN Reyna - 09/21/2022 5:32 PM EDT Patient calling in to check on the status of previous message. Patient Called within 48 hour timeframe. Reminded patient of 48 hour turn-around time. * Telephone Encounter - Zeeshan Johnson MD - 09/21/2022 3:37 PM EDT Declined ER today. Consider direct admin vs ER eval for refeeding, GI Nutrition consult etc Will defer pcp * Telephone Encounter - Chao Sauceda RN - 09/21/2022 3:03 PM EDT Provider to address: Dr. Maurer Reason for Call: Advice Contact: Telephone Call Contact Type: Other: Advice Outcome: Received transferred call from [place] from scheduling. Patient states Dr. Funk called her about stent placement - please see previous messages. Patient states she is having unintentional weight loss, weighs less than 90 lbs, states she is eating and eating and eating but is still losing weight. Patient states she is also losing balance and having extrmem fatigue, also swelling in her feet and ankles. Patient states when going up the steps she practically has to crawl up the steps. Patient states she was at [facility] yesterday for a B12 shot and they had to get her a wheelchair. Patient states she wants to find someone to find out what is going on. Patient states she would likeDr. Maurer to take charge at this point. Patient states she went to the ER 3 times, last time was about 1 month or less. Patient said she would like to get some answers and someone has to help her. Did advise patient three times to go to the ER, but she declined. Patient said they do nothing and then let her go. She said they did admit her once. Patient is aware Dr. Maurer is not in the office at this time, but will be back tomorrow. Please advise. Total Time including non face to face (minutes): 10 * Telephone Encounter - Preethi Murphy LPN - 09/21/2022 2:56 PM EDT Spoke with pt, declining stent at this time. States she has not spoken with PCP or gastro regardingcurrent symptoms. She would like PCP's office to reach out to her about weight loss, fatigue, weakness. Will keep urology follow up as scheduled. Thank you Christine * Telephone Encounter - Sahil Funk MD - 09/21/2022 11:38 AM EDT No, I do not think it is likely placing a stent will improve any of those particular issues. It might modestly improve discomfort and kidney function (no to swelling, weakness, loss of weight, etc.) There is a chance she will feel worse with stent with bladder pressure and kidney discomfort while urinating. Stent can be removed in office, is also being placed to see which symptoms might improve while it is in place. Thanks, HM * Telephone Encounter - Lisa Cortez LPN - 09/21/2022 10:15 AM EDT Reason for Call: Advice Contact: Telephone Call Contact Type: Other: Advice Outcome: Patient states that she is going to have a stent put in her kidney She wants to know if this is going to solve her weakness, loss of weight issues and swelling in herfingers and swelling from her waste down. She states that she is in a bad way. Reviewed message regarding her conversation with Urology nurse earlier today and advised her that the nurse had messaged Dr. Funk to see if he would be able to reach out to her today to discuss herquestions She will call back if Urology is not able to answer her questions or if she has further questions afterwards FYI to Dr. Funk Total Time including non face to face (minutes): 10 * Telephone Encounter - JADYN Yates - 09/21/2022 10:11 AM EDT Reason for patient's call: requesting to speak to nurse regarding stent Caller was transferred to Lisa at the nurse line. documented in this encounter Plan of Treatment Upcoming Encounters Date Type Specialty Care Team Description 10/21/2022 Office Visit Family Medicine Zaira Betancourt CRNP [address] [place] [address] 11/02/2022 Office Visit Gastroenterology Rufina Alvarez CRNP [address] [place] [address] 11/09/2022 Office Visit Urology Sahil Funk MD [address] [facility] [address] [place] [address] 03/09/2023 Office Visit Family Medicine Joanie Maurer DO [address] [place] [address] Scheduled Orders Name Type Priority Associated Diagnoses Orde r Schedule CBC WITH WBC DIFFERENTIAL Lab Routine Severe protein-calorie malnutrition (HCC) Weight loss, non-intentional Expected: 09/22/2022 (Approximate), Expires: 09/23/2023 COMPREHENSIVE METABOLIC PANEL Lab Routine Severe protein-calorie malnutrition (HCC) Weight loss, non-intentional Expected: 09/22/2022 (Approximate), Expires: 09/22/2023 TSH WITH FREE T4 IF INDICATED Lab Routine Severe protein-calorie malnutrition (HCC) Weight loss, non-intentional Expected: 09/22/2022 (Approximate), Expires: 09/22/2023 ERYTHROCYTE SEDIMENTATION RATE (ESR) Lab Routine Severe protein-calorie malnutrition (HCC) Weight loss, non-intentional Expected: 09/22/2022 (Approximate), Expires: 09/22/2023 MAMMOGRAM SCREENING ALEJANDRO BILATERAL Medical Imaging Routine Encounter for screening mammogram for breast cancer Expected: 09/22/2022, Expires: 10/24/2023 REGIONAL PARASITE ANTIGEN SCREEN Lab Routine Severe protein-calorie malnutrition (HCC) Weight loss, non-intentional Expected: 09/22/2022 (Approximate), Expires: 09/22/2023 Scheduled Procedures Name Priority Associated Diagnoses Date/Ti me COLONOSCOPY FLEXIBLE PROXIMAL DIAGNOSTIC Recall History of colon polyps Scheduled Referrals Name Type Priority Associated Diagnoses Orde r Schedule GI NUTRITION REFERRAL OP Referral Within 3 days (urgent) Severe protein-calorie malnutrition (HCC) Ordered: 09/22/2022 ADULT/PEDS PSYCHOLOGY REFERRAL OP Referral Within 3 days (urgent) Severe protein-calorie malnutrition (HCC) Ordered: 09/22/2022 COLONOSCOPY, GI REFERRAL OP Referral Within 3 days (urgent) Special screening for malignant neoplasms, colon Ordered: 09/22/2022 Health Maintenance Due Date Last Done Comments DISCUSS TOBACCO CESSATION (REFER TO SMARTSET #7021) 1950 Hepatitis B (2 of 3 - [...] D LEVEL ONCE IN A LIFETIME-USE SMARTSET# [id number] Completed 08/02/2011, 04/24/2009, 06/25/2008, Additional history exists Mammogram Discontinued 12/18/2014, 11/05, 12/22/2006, Additional history exists Pneumococcal Vaccine: 65+ Years Completed 08/10/2017, 06/14/2016 Alpha-1 Antitrypsin Completed 03/15/2022 LUNG CANCER SCREENING - USE SMARTSET [id number] Completed 06/23/2022, 10/15/2019, 2018, Additional history exists GARDASIL-HPV IMMUNIZATION SERIES Aged Out No longer eligible based on patient's age to complete this topic MENINGOCOCCAL (MENACTRA/MENVEO) Aged Out No longer eligible based on patient's age to complete this topic documented as of this encounter Medical Devices Not on filedocumented as of this encounter Visit Diagnoses Diagnosis Severe protein-calorie malnutrition (HCC)- Primary Other severe protein-calorie malnutrition Weight loss, non-intentional Loss of weight Encounter for screening mammogram for breast cancer Special screening for malignant neoplasms, colon documented in this encounter Care Teams Pallet Repairer Relationship Specialty Start Date End Date Joanie Maurer DO [address] [place] [address] PCP - General Family Medicine 04/04/19 documented as of this encounter
--- OUTSIDE RECORDS SUMMARY | 2023-02-27 13:02 | External Medical Summary | Summary of Care ---
Author Name Unknown Organization [facility] Address [address] [place] [address] Phone [phone] Care Team Providers Care Licensed Midwife Name Role Phone Hayes Maurer Primary Care Provider Reason for Visit * Reason Onset Date Comments Advice 10/03/2022 Encounter Details Date Type Department Care Team Description 10/03/2022 Telephone Family Practice [facility] [address] [place] [address] Reyes Qureshi MD [address] [place] [address] [place] [id number] Advice Allergies Active Allergy Reactions Severity Noted [...] mRNA, LNP-s, No Pre serve, 2-Dose Series ([employer]) 03/04/2021,07/22/2020,07/01/2020 Pneumococcal Conjugate Vacc, 13 Valent (Prevnar) [...] encounter Miscellaneous Notes * Telephone Encounter - Reyes Qureshi MD - 10/03/2022 7:38 AM EDT Kaci called me yesterday wanting to know what to do with her swollen legs and feet. She said they were swollen at Discharge from [facility] but no one seemed to [...] Visit Family Medicine Preethi Jones CRNP [address] [place] [address] 10/18/2022 Imaging Radiology 10/18/2022 Laboratory Laboratory Evy Francis [address] [place] [address] 10/18/2022 Office Visit Family Medicine Lalit Wiggins CRNP [address] [place] [address] 10/21/2022 Office Visit Family Medicine Zaira Betancourt CRNP [address] [place] [address] 11/02/2022 Office Visit Gastroenterology Rufina Alvarez CRNP [address] [place] [address] 11/09/2022 Office Visit Urology Sahil Funk MD [address] [place] [address] [place] [address] 01/17/2023 Hospital Encounter Endoscopy Michael Alejandro MD [address] [place] [address] 01/17/2023 Surgery Endoscopy Michael Alejandro MD [address] [place] [address] COLONOSCOPY FLEXIBLE PROXIMAL DIAGNOSTIC 03/09/2023 Office Visit Family Medicine Hayes Maurer DO [address] [place] [address] Scheduled Procedures Name Priority Associated Diagnoses Date/Ti me COLONOSCOPY FLEXIBLE PROXIMAL DIAGNOSTIC Recall History of colon polyps Special screening for malignant neoplasms, colon 01/17/2023 2:30 PM EST Health Maintenance Due Date Last Done Comments DISCUSS TOBACCO CESSATION (REFER TO SMARTSET #3874) 1950 Hepatitis B (2 of 3 - [...] D LEVEL ONCE IN A LIFETIME-USE SMARTSET# [id number] Completed 08/02/2011, 04/24/2009, 06/25/2008, Additional history exists Mammogram Discontinued 12/18/2014, 11/05, 12/22/2006, Additional history exists Pneumococcal Vaccine: 65+ Years Completed 08/10/2017, 06/14/2016 Alpha-1 Antitrypsin Completed 03/15/2022 LUNG CANCER SCREENING - USE SMARTSET [id number] Completed 06/23/2022, 10/15/2019, 2018, Additional history exists GARDASIL-HPV IMMUNIZATION SERIES Aged Out No longer eligible based on patient's age to complete this topic MENINGOCOCCAL (MENACTRA/MENVEO) Aged Out No longer eligible based on patient's age to complete this topic documented as of this encounter Medical Devices Not on filedocumented as of this encounter Care Teams Licensed Midwife Relationship Specialty Start Date End Date Hayes Maurer DO [address] [place] [address] PCP - General Family Medicine 04/04/19 documented as of this encounter
--- OUTSIDE RECORDS SUMMARY | 2023-02-27 13:02 | External Medical Summary | Summary of Care ---
Author Name Unknown Organization [facility] Address [address] [place] [address] Phone [phone] Care Team Providers Care Director Community Center Name Role Phone Joanie Maurer DO Primary Care Provider Reason for Referral * Ancillary Services (Within 3 days (urgent)) - Authorized Specialty Diagnoses / Procedures Referred By Johanny garcia Referred To Contact Gastroenterology Diagnoses Special screening for malignant neoplasms, colon Joanie Maurer DO [address] [place] [address] Referral ID Status Reason Start Date Expiration Date Visits Requested Visits Authorized [id number] Authorized Ancillary Services Required 09/22/[phone] Question Answer Referral Priority Within 3 days (urgent) Comments ALERT: Do not order for pediatric patients (18 years or younger). Cancel off screen and order PEDS GASTROENTEROLOGY CONSULT (Type: 1 visit only-Evaluate and Treat) The following Pt. Instructions are available: - Gastro Colonoscopy Prep Instructions [[id number]] - Gastro Colonoscopy Prep Instructions (Portuguese Version) [[id number]] Go to the Pt. Instructions section within [...] Severe protein-calorie malnutrition (HCC) Joanie Maurer DO [address] [place] [address] Referral ID Status Reason Start Date Expiration Date Visits Requested Visits Authorized [id number] Authorized Specialty Services Required 09/22/[phone] [...] (HCC) Joanie Maurer DO [address] [address] Referral ID Status Reason Start Date Expiration Date Visits Requested Visits Authorized [id number] Authorized Specialty Services Required 09/22/2022 999 999 [...] Care Team Description 09/21/2022 Telephone Family Practice [facility] [address] [address] Joanie Maurer DO [address] [place] [address] Advice (Status of message) Allergies Active Allergy Reactions Severity Noted Date Comments Morphine 03/26/1997 Shock, dyspnea Other reaction(s): shock, dspnea Neomycin 04/07/2013 documented as of this encounter (statuses as of 09/23/2022) Medications Medication Sig Dispensed Refills Start Date [...] as of this encounter (statuses as of 09/23/2022) Active Problems Problem Noted Date COPD, group [...] as of this encounter (statuses as of 09/23/2022) Resolved Problems Problem Noted Date Resolved Date [...] as of this encounter (statuses as of 09/23/2022) Immunizations Name Administration Dates Next Due COVID-19 mRNA, LNP-s, No Pre serve, 2-Dose Series ([employer]) 03/04/2021,07/22/2020,07/01/2020 Hepatitis B Vaccine 03/26/1997 Pneumococcal [...] encounter Miscellaneous Notes * Telephone Encounter - Vivien Cuba LPN - 09/23/2022 10:09 AM EDT Provider to address: Patient aware and verbalized understanding. Is agreeable with mammogram. Is also agreeable with labs- asks that B12 is ordered. Pt is unsure when last PAP was.- per review, last PAP with [facility] was 02/19/2015. States that she will not be able to drink the prep for the colonoscopy. Does not want to vomit at home or the office and that is what the prep causes for her. Asks if there is a pill form for colonoscopy prep? PAP and labs scheduled 10/18/2022 per pt request. Call was transferred to radiology scheduling to set up mammogram. Please advise. Reason for Call: Advice (Status of message) Contact: Telephone Call Contact Type: Care Coordination Total Time including non face to face (minutes): 30 * Telephone Encounter - Chao Sauceda RN - 09/23/2022 9:48 AM EDT Called, left message for patient to return call to nurse call center. Please inform patient of both of Dr. Maurer's previous messages. * Addendum Note - Joanie Maurer DO [...] added to waitlist * Telephone Encounter - Vivien Cuba LPN - 09/22/2022 3:20 PM EDT [...] about medical advice Caller was transferred to [facility] at the nurse line. * Telephone Encounter - Ambar Maurer - 09/22/2022 1:12 PM EDT Pt is already scheduled with GI and GI nutrition in October. I will send them this message to triagefor sooner appts. Thanks! Nursing, when you call pt please inform pt that psychology referral placed and we [facility] or she can call local office for [...] Other: Advice Outcome: Received transferred call from [place] from scheduling. Patient states Dr. Funk called [...] the steps. Patient states she was at [facility] yesterday for a B12 [...] nurse regarding stent Caller was transferred to [facility] at the nurse line. documented in this encounter Plan of Treatment Upcoming Encounters Date Type Specialty Care Team Description 10/18/2022 Laboratory Laboratory Francis, Lab Murphy [address] [facility] [place] [address] 10/18/2022 Office Visit Family Medicine Lalit Wiggins, F[place]N [address] [place] [address] 10/21/2022 Office Visit Family Medicine Asia Zairasa Durham, FARTUN [address] [place] [address] 11/02/2022 Office Visit Gastroenterology Rufina Alvarez, FARTUN [address] [place], [place] [address] 11/09/2022 Office Visit Urology Sahil Funk MD [address] [place] [address] [place] [address] 03/09/2023 Office Visit Family [facility] Joanie Maurer, [address] [place], [place] [address] Scheduled Orders Name Type Priority Associated Diagnoses [...] D LEVEL ONCE IN A LIFETIME-USE SMARTSET# [id number] Completed 08/02/2011, 04/24/2009, 06/25/2008, Additional history exists Mammogram Discontinued 12/18/2014, 11/05, 12/22/2006, Additional history exists Pneumococcal Vaccine: 65+ Years Completed 08/10/2017, 06/14/2016 Alpha-1 Antitrypsin Completed 03/15/2022 LUNG CANCER SCREENING - USE SMARTSET [id number] Completed 06/23/2022, 10/15/2019, 2018, Additional history exists [...] colon documented in this encounter Care Teams Director Community Center Relationship Specialty Start Date End Date Joanie Maurer DO [address] [place] [address] PCP - General Family Medicine 04/04/19 documented as of this encounter
--- OUTSIDE RECORDS SUMMARY | 2023-02-27 13:02 | External Medical Summary | Summary of Care ---
Author Name Unknown Organization [facility] Address [address] [place] [address] Phone [phone] Care Team Providers Care Supervisor Compounding And Finishing Name Role Phone Hayes Maurer Primary Care Provider Reason for Visit * Reason Onset Date Comments Advice 10/03/2022 Encounter Details Date Type Department Care Team Description 10/03/2022 Telephone Family Practice [facility] [address] [place] [address] Reyes Qureshi MD [address] [place] [address] [place] [id number] Advice Allergies Active Allergy Reactions Severity Noted [...] mRNA, LNP-s, No Pre serve, 2-Dose Series (DanceOn) 03/04/2021,07/22/2020,07/01/2020 Hepatitis B Vaccine 03/26/1997 Pneumococcal Conjugate [...] said they were swollen at Discharge from [facility] but no one seemed to care. [...] Family Medicine Preethi Jones CRNP [address] [place] [address] 10/18/2022 Imaging Radiology 10/18/2022 Laboratory Laboratory [facility], [facility] [address] [place] [address] 10/18/2022 Office Visit Family Medicine Lalit Wiggins CRNP [address] [place] [address] 10/21/2022 Office Visit Family Medicine Zaira Betancourt CRNP [address] [place] [address] 11/02/2022 Office Visit Gastroenterology Rufina Alvarez CRNP [address] [place] [address] 11/09/2022 Office Visit Urology Sahil Funk MD [address] [place] [address] [place] [address] 01/17/2023 Hospital Encounter Endoscopy Michael Alejandro MD [address] [place] [address] 01/17/2023 Surgery Endoscopy Michael Alejandro MD [address] [place] [address] COLONOSCOPY FLEXIBLE PROXIMAL DIAGNOSTIC 03/09/2023 Office Visit Family Medicine Hayes Maurer DO [address] [place] [address] Scheduled Procedures Name Priority Associated Diagnoses Date/Ti me COLONOSCOPY FLEXIBLE PROXIMAL DIAGNOSTIC Recall History of colon polyps Special screening for malignant neoplasms, colon 01/17/2023 2:30 PM EST Health Maintenance Due Date Last Done Comments DISCUSS TOBACCO CESSATION (REFER TO SMARTSET #4465) 1950 Hepatitis B (2 of 3 - [...] D LEVEL ONCE IN A LIFETIME-USE SMARTSET# 51786 Completed 08/02/2011, 04/24/2009, 06/25/2008, Additional history exists Mammogram Discontinued 12/18/2014, 11/05, 12/22/2006, Additional history exists Pneumococcal Vaccine: 65+ Years Completed 08/10/2017, 06/14/2016 Alpha-1 Antitrypsin Completed 03/15/2022 LUNG CANCER SCREENING - USE SMARTSET 13019 Completed 06/23/2022, 10/15/2019, 2018, Additional history exists GARDASIL-HPV IMMUNIZATION SERIES Aged Out No longer eligible based on patient's age to complete this topic MENINGOCOCCAL (MENACTRA/MENVEO) Aged Out No longer eligible based on patient's age to complete this topic documented as of this encounter Medical Devices Not on filedocumented as of this encounter Care Teams Supervisor Compounding And Finishing Relationship Specialty Start Date End Date Hayes Maurer DO [address] [place] [address] PCP - General Family Medicine 04/04/19 documented as of this encounter
--- OUTSIDE RECORDS SUMMARY | 2023-02-27 13:02 | External Medical Summary | Summary of Care ---
Author Name Unknown Organization [facility] Address [address] [place] [address] Phone [phone] Care Team Providers Care Criminalist Technician Name Role Phone Hayes Maurer Primary Care Provider Reason for Visit * Reason Onset Date Comments Appointment 09/13/2022 Advice 09/13/2022 Encounter Details Date Type Department Care Team Description 09/13/2022 Telephone Nephrology, [place] [address] [place], [place] [id number] Services, Count Includes [facility] [address] [place] [address] Appointment; Advice Allergies Active Allergy Reactions Severity Noted Date Comments Morphine 03/26/1997 Shock, dyspnea Other reaction(s): shock, dspnea Neomycin 04/07/2013 documented as of this encounter (statuses as of 09/13/2022) Medications Medication Sig Dispensed Refills Start Date [...] the morning. 90 Tablet 3 09/08/2022 Active Hospital, Clinic, or Other Facility Administered Medication Ordered Dose Route Frequency Start Date End Date Status vitamin b-12 (Cyanocobalamin) inj 1,000 mcgIndications:B12 deficiency 1000 mcg IM QWEEK 08/23/2022 09/20/2022 Active documented as of this encounter (statuses as of 09/13/2022) Active Problems Problem Noted Date COPD, group [...] as of this encounter (statuses as of 09/13/2022) Resolved Problems Problem Noted Date Resolved Date [...] as of this encounter (statuses as of 09/13/2022) Immunizations Name Administration Dates Next Due COVID-19 [...] encounter Miscellaneous Notes * Telephone Encounter - Liilane Diaz LPN - 09/13/2022 1:59 PM EDT Returned patient's call. Patient inquiring what procedure she is having done to her kidney and whatthey are looking for. Patient has hydronephrosis, having a vascular flow and function test to be completed. Explained to patient it is to view the blood and fluid flow to assess for any obstructions or constrictions in the vessels. * Telephone Encounter - JDAYN Echevarria - 09/13/2022 11:04 AM EDT Pt called regarding scheduling an appt but does not want to come in until after her nuclear study test results are in. She has the text next Monday. Pt also swollen from feet to waist and having difficulty getting around. Pt would like to speak to someone regarding some questions and concerns she has from her last visitwith Dr. Wray. Please call pt at [phone] documented in this encounter Plan of Treatment Upcoming Encounters Date Type Specialty Care Team Description 09/20/2022 Imaging Radiology 09/20/2022 Immunization/Injection Ancillary Tito, Nurse Juanito Arrington [address] [place] [address] 10/21/2022 Office Visit Family Medicine Zaira Betancourt CRNP [address] [place] [address] 11/02/2022 Office Visit Gastroenterology Rufina Alvarez CRNP [address] [place] [address] 11/09/2022 Office Visit Urology Sahil Funk MD [address] [place] [address] [place] [id number] 03/09/2023 Office Visit Family Medicine Hayes Maurer DO [address] [place] [address] Scheduled Procedures Name Priority Associated Diagnoses Date/Ti me COLONOSCOPY FLEXIBLE PROXIMAL DIAGNOSTIC Recall History of colon polyps Health Maintenance Due Date Last Done Comments DISCUSS TOBACCO CESSATION (REFER TO SMARTSET #6131) 1950 Hepatitis B (2 of 3 - [...] D LEVEL ONCE IN A LIFETIME-USE SMARTSET# [id number] Completed 08/02/2011, 04/24/2009, 06/25/2008, Additional history exists Mammogram Discontinued 12/18/2014, 11/05, 12/22/2006, Additional history exists Pneumococcal Vaccine: 65+ Years Completed 08/10/2017, 06/14/2016 Alpha-1 Antitrypsin Completed 03/15/2022 LUNG CANCER SCREENING - USE SMARTSET 54632 Completed 06/23/2022, 10/15/2019, 2018, Additional history exists GARDASIL-HPV IMMUNIZATION SERIES Aged Out No longer eligible based on patient's age to complete this topic MENINGOCOCCAL (MENACTRA/MENVEO) Aged Out No longer eligible based on patient's age to complete this topic documented as of this encounter Medical Devices Not on filedocumented as of this encounter Care Teams Criminalist Technician Relationship Specialty Start Date End Date Hayes Maurer DO [address] [place] [address] PCP - General Family Medicine 04/04/19 documented as of this encounter
--- OUTSIDE RECORDS SUMMARY | 2023-02-27 13:02 | External Medical Summary | Summary of Care ---
Author Name Unknown Organization [facility] Address [address] [place] [address] Phone [phone] Care Team Providers Care Oil Well Service Operator Name Role Phone Joanie Maurer DO Primary Care Provider Reason for Referral * Ancillary Services (Within 3 days (urgent)) - Authorized Specialty Diagnoses / Procedures Referred By Johanny garcia Referred To Contact Gastroenterology Diagnoses Special screening for malignant neoplasms, colon Joanie Maurer DO [address] [place] [address] Referral ID Status Reason Start Date Expiration Date Visits Requested Visits Authorized [id number] Authorized Ancillary Services Required 09/22/2022 999 999 Question Answer Referral Priority Within 3 days (urgent) Comments ALERT: Do not order for pediatric patients (18 years or younger). Cancel off screen and order PEDS GASTROENTEROLOGY CONSULT (Type: 1 visit only-Evaluate and Treat) The following Pt. Instructions are available: - Gastro Colonoscopy Prep Instructions [50341] - Gastro Colonoscopy Prep Instructions (Burundian Version) [[id number]] Go to the Pt. Instructions section within [...] Severe protein-calorie malnutrition (HCC) Joanie Maurer DO [address] [place] [address] Referral ID Status Reason Start Date Expiration Date Visits Requested Visits Authorized [id number] Authorized Specialty Services Required 09/22/2022 999 999 [...] (HCC) Joanie Maurer DO [address] [address] Referral ID Status Reason Start Date Expiration Date Visits Requested Visits Authorized [id number] Authorized Specialty Services Required 09/22/2022 999 999 [...] Care Team Description 09/21/2022 Telephone Family Practice [facility] [address] [address] Joanie Mauerr DO [address] [place] [address] Advice (Status of message) Allergies Active Allergy [...] mRNA, LNP-s, No Pre serve, 2-Dose Series (Location) 03/04/2021,07/22/2020,07/01/2020 Hepatitis B Vaccine 03/26/1997 Pneumococcal Conjugate [...] Miscellaneous Notes * Telephone Encounter - JADYN Ayala - 09/23/2022 12:39 PM EDT Spoke to pt, colonoscopy scheduled on 01/17 yasmani flowers Instructions mailed * Telephone Encounter - Ambar Maurer - 09/23/2022 11:47 AM EDT I will send to endoscopy to ask about colonoscopy prep * Telephone Encounter - Teresa Cuba LPN - 09/23/2022 10:09 AM EDT [...] about medical advice Caller was transferred to teresa at the nurse line. * Telephone Encounter - Ambar Maurer - 09/22/2022 1:12 PM EDT Pt is already scheduled with GI and GI nutrition in October. I will send them this message to triagefor sooner appts. Thanks! Nursing, when you call pt please inform pt that psychology referral placed and we can [facility] or she can call local office [...] Other: Advice Outcome: Received transferred call from [place] from scheduling. Patient states Dr. Funk called [...] the steps. Patient states she was at [facility] yesterday for a B12 shot and they [...] (minutes): 10 * Telephone Encounter - JADYN Yaets - 09/21/2022 10:11 AM EDT Reason for patient's call: requesting to speak to nurse regarding stent Caller was transferred to [facility] at the nurse line. documented in this encounter Plan of Treatment Upcoming Encounters Date Type Specialty Care Team Description 10/18/2022 Imaging Radiology 10/18/2022 Laboratory Laboratory Evy Francis [address] [place] [address] 10/18/2022 Office Visit Family Medicine Lalit Wiggins CRNP [address] [place] [address] 10/21/2022 Office Visit Family Medicine Zaira Betancourt CRNP [address] [place] [address] 11/02/2022 Office Visit Gastroenterology Rufina Alvarez CRNP [address] [place] [address] 11/09/2022 Office Visit Urology Sahil Funk MD [address] [place] [address] [place] [address] 01/17/2023 Hospital Encounter Endoscopy Michael Flowers MD [address] [place] [address] 01/17/2023 Surgery Endoscopy Michael Flowers MD [address] [place] [address] COLONOSCOPY FLEXIBLE PROXIMAL DIAGNOSTIC 03/09/2023 Office Visit Family Medicine Joanie Maurer DO [address] [place] [address] Scheduled Orders Name Type Priority Associated Diagnoses [...] Comments DISCUSS TOBACCO CESSATION (REFER TO SMARTSET #1773) 1950 Hepatitis B (2 of 3 - [...] D LEVEL ONCE IN A LIFETIME-USE SMARTSET# [id number] Completed 08/02/2011, 04/24/2009, 06/25/2008, Additional history exists Mammogram Discontinued 12/18/2014, 11/05, 12/22/2006, Additional history exists Pneumococcal Vaccine: 65+ Years Completed 08/10/2017, 06/14/2016 Alpha-1 Antitrypsin Completed 03/15/2022 LUNG CANCER SCREENING - USE SMARTSET 14538 Completed 06/23/2022, 10/15/2019, 2018, Additional history exists [...] cancer Special screening for malignant neoplasms, colon History of colon polyps Personal history of colonic polyps Special screening for malignant neoplasms, colon documented in this encounter Care Teams Oil Well Service Operator Relationship Specialty Start Date End Date Joanie Maurer DO [address] [place] [address] PCP - General Family Medicine 04/04/19 documented as of this encounter
--- OUTSIDE RECORDS SUMMARY | 2023-02-27 13:02 | External Medical Summary | Summary of Care ---
Author Name Unknown Organization [facility] Address [address] [place] [address] Phone [phone] Care Team Providers Care Web Knitter Name Role Phone Hayes Maurer Primary Care Provider Reason for Referral * Evaluate & Treat - Unlimited Visits (Within 10 days (routine)) - Authorized Specialty Diagnoses / Procedures Referred By Johanny t Referred To Contact Cardiovascular Medicine / Cardiology Diagnoses Generalized weakness Pulmonary hypertension (HCC) Reyes Qureshi MD [address] [place] [address] [place] [address] Referral ID Status Reason Start Date Expiration Date Visits Requested Visits Authorized [id number] Authorized Specialty Services Required 10/03/2022 999 999 Question Answer Referral Priority Within 10 days (routine) To which of the following clinics are you referring your patient? General Cardiology Clinic Comments Pt recently hospitalized for dizziness, weakness. Bradycardia noted while in ER. Reason for Visit * Reason Onset Date Comments Advice 10/03/2022 Encounter Details Date Type Department Care Team Description 10/03/2022 Telephone Family Practice [facility] [address] [place] [address] Reyes Qureshi MD [address] [place] [address] [place] [id number] Advice Allergies Active Allergy Reactions Severity Noted [...] mRNA, LNP-s, No Pre serve, 2-Dose Series (Commtimize) 03/04/2021,07/22/2020,07/01/2020 Hepatitis B Vaccine 03/26/1997 Pneumococcal Conjugate [...] schedule hospital f/u * Addendum Note - Danae Amaya LPN - 10/03/2022 12:29 PM EDTAddended by: DANAE AMAYA on: 10/03/2022 12:29 PM Modules accepted: Orders * Telephone Encounter - Danae Amaya LPN - 10/03/2022 10:44 AM EDT (FYI) Information given to pt as noted below. Scheduling--Please assist below. Pt states she is in need of rescheduling her hosp f/u,needs appt with [facility] cancelled for 10/04/2022. Pt prefers to see Dr. Maurer for hosp f/u, but will see DISASTER DIRECTOR, but only can do later in the [...] said they were swollen at Discharge from [facility] but no one seemed to care. I [...] Medicine Preethi Jones CRNP [address] [place] [address] 10/18/2022 Imaging Radiology 10/18/2022 Laboratory Laboratory [facility] [address] [place] [address] 10/18/2022 Office Visit Family Medicine Lalit Wiggins CRNP [address] [place] [address] 10/21/2022 Office Visit Family Medicine Zaira Betancourt CRNP [address] [place] [address] 11/02/2022 Office Visit Gastroenterology Rufina Alvarez CRNP [address] [place] [address] 11/09/2022 Office Visit Urology Sahil Funk MD [address] [place] [address] [place] [address] 01/17/2023 Hospital Encounter Endoscopy Michael Alejandro MD [address] [place] [address] 01/17/2023 Surgery Endoscopy Michael Alejandro MD [address] [place] [address] COLONOSCOPY FLEXIBLE PROXIMAL DIAGNOSTIC 03/09/2023 Office Visit Family Medicine Hayes Maurer DO [address] [place] [address] Scheduled Procedures Name Priority Associated Diagnoses Date/Ti [...] D LEVEL ONCE IN A LIFETIME-USE SMARTSET# [id number] Completed 08/02/2011, 04/24/2009, 06/25/2008, Additional history exists Mammogram Discontinued 12/18/2014, 11/05, 12/22/2006, Additional history exists Pneumococcal Vaccine: 65+ Years Completed 08/10/2017, 06/14/2016 Alpha-1 Antitrypsin Completed 03/15/2022 LUNG CANCER SCREENING - USE SMARTSET 28555 Completed 06/23/2022, 10/15/2019, 2018, Additional history exists [...] colon documented in this encounter Care Teams Web Knitter Relationship Specialty Start Date End Date Hayes Maurer, [address] [place] [address] PCP - General Family Medicine 04/04/19 documented as of this encounter
--- OUTSIDE RECORDS SUMMARY | 2023-02-27 13:02 | External Medical Summary | Summary of Care ---
Author Name Unknown Organization [facility] Address [address] [place] [address] Phone [phone] Care Team Providers Care Coating Operator Name Role Phone Hayes Maurer DO Primary Care Provider Reason for Referral * Evaluate & Treat - Unlimited Visits (Within 3 days (urgent)) - Authorized Specialty Diagnoses / Procedures Referred By Contac t Referred To Contact Psychology Diagnoses Severe protein-calorie malnutrition (HCC) Hayes Maurer DO [address] [place] [address] Referral ID Status Reason Start Date Expiration Date Visits Requested Visits Authorized [id number] Authorized Specialty Services Required 09/22/2022 999 999 [...] / Gastroenterology Diagnoses Severe protein-calorie malnutrition (HCC) Hayes Maurer DO [address] [place] [address] Referral ID Status Reason Start Date Expiration Date Visits Requested Visits Authorized [id number] Authorized Specialty Services Required 09/22/2022 999 999 [...] Department Care Team Description 09/21/2022 Telephone Family [facility] [address] [place] [address] aHyes Maurer, [address] [place] [address] Advice (Status of message) Allergies Active Allergy [...] mRNA, LNP-s, No Pre serve, 2-Dose Series ([employer]) 03/04/2021,07/22/2020,07/01/2020 Pneumococcal Conjugate Vacc, 13 Valent (Prevnar) [...] placed and we [facility] video [facility] or she can call local office for in person but she will need to self schedule that. * Telephone Encounter - Hayes Maurer DO - 09/22/2022 1:02 PM EDT [...] Other: Advice Outcome: Received transferred call from [place] from scheduling. Patient states Dr. Funk called [...] the steps. [facility] and they [...] nurse regarding stent Caller was transferred to [facility] at the nurse line. documented in this encounter Plan of Treatment Upcoming Encounters Date Type Specialty Care Team Description 10/21/2022 Office Visit Family Medicine Zaira Betancourt CRNP [address] [place] [address] 11/02/2022 Office Visit Gastroenterology Rufina Alvarez, FARTUN [address] [place] [address] 11/09/2022 Office Visit Urology Sahil Funk MD [address] [place] [address] [place] [address] 03/09/2023 Office Visit Family Medicine Hayes Maurer DO [address] [place] [address] Scheduled Procedures Name Priority Associated Diagnoses Date/Ti me COLONOSCOPY FLEXIBLE PROXIMAL DIAGNOSTIC Recall History of colon polyps Scheduled Referrals Name Type Priority Associated Diagnoses Orde r Schedule GI NUTRITION REFERRAL OP Referral Within 3 days (urgent) Severe protein-calorie malnutrition (HCC) Ordered: 09/22/2022 ADULT/PEDS PSYCHOLOGY REFERRAL OP Referral Within 3 days (urgent) Severe protein-calorie malnutrition (HCC) Ordered: 09/22/2022 Health Maintenance Due Date Last [...] D LEVEL ONCE IN A LIFETIME-USE SMARTSET# [id number] Completed 08/02/2011, 04/24/2009, 06/25/2008, Additional history exists Mammogram Discontinued 12/18/2014, 11/05, 12/22/2006, Additional history exists Pneumococcal Vaccine: 65+ Years Completed 08/10/2017, 06/14/2016 Alpha-1 Antitrypsin Completed 03/15/2022 LUNG CANCER SCREENING - USE SMARTSET 35431 Completed 06/23/2022, 10/15/2019, 2018, Additional history exists [...] malnutrition (HCC)- Primary Other severe protein-calorie malnutrition documented in this encounter Care Teams Coating Operator Relationship Specialty Start Date End Date Hayes Maurer DO [address] [place] [address] PCP - General Family Medicine 04/04/19 documented as of this encounter
--- OUTSIDE RECORDS SUMMARY | 2023-02-27 13:02 | External Medical Summary | Summary of Care ---
Author Name Unknown Organization [facility] Address [address] [place] [address] Phone [phone] Care Team Providers Care Chemical Laboratory Chief Name Role Phone Joanie Maurer DO Primary Care Provider Reason for Referral * Ancillary Services (Within 3 days (urgent)) - Authorized Specialty Diagnoses / Procedures Referred By Johanny garcia Referred To Contact Gastroenterology Diagnoses Special screening for malignant neoplasms, colon Joanie Maurer DO [address] [place] [address] Referral ID Status Reason Start Date Expiration Date Visits Requested Visits Authorized [id number] Authorized Ancillary Services Required 09/22/2022 999 999 Question Answer Referral Priority Within 3 days (urgent) Comments ALERT: Do not order for pediatric patients (18 years or younger). Cancel off screen and order PEDS GASTROENTEROLOGY CONSULT (Type: 1 visit only-Evaluate and Treat) The following Pt. Instructions are available: - Gastro Colonoscopy Prep Instructions [[id number]] - Gastro Colonoscopy Prep Instructions (Italian Version) [[id number]] Go to the Pt. Instructions section within [...] Severe protein-calorie malnutrition (HCC) Joanie Maurer DO [address] [place] [address] Referral ID Status Reason Start Date Expiration Date Visits Requested Visits Authorized [id number] Authorized Specialty Services Required 09/22/2022 999 999 [...] (HCC) Joanie Maurer DO [address] [address] Referral ID Status Reason Start Date Expiration Date Visits Requested Visits Authorized [id number] Authorized Specialty Services Required 09/22/2022 999 999 [...] Care Team Description 09/21/2022 Telephone Family Practice [facility] [address] [place] [address] Joanie Maurer DO [address] [place] [address] Advice (Status of message) Allergies Active Allergy [...] mRNA, LNP-s, No Pre serve, 2-Dose Series (Hyperpia) 03/04/2021,07/22/2020,07/01/2020 Hepatitis B Vaccine 03/26/1997 Pneumococcal Conjugate [...] encounter Miscellaneous Notes * Telephone Encounter - Chao Sauceda RN [...] placed and we can do video [facility] or she can call local office [...] Other: Advice Outcome: Received transferred call from [place] from scheduling. Patient states Dr. Funk called [...] the steps. Patient states she was at [place] yesterday for a B12 shot and they [...] Zaira Betancourt CRNP [address] [place] [address] 11/02/2022 Office Visit Gastroenterology Rufina Alvarez CRNP [address] [place] [address] 11/09/2022 Office Visit Urology Sahil Funk MD [address] [facility] [address] [place] [address] 03/09/2023 Office Visit Family Medicine Joanie Maurer DO [address] [place] [address] Scheduled Orders Name Type Priority Associated Diagnoses [...] Comments DISCUSS TOBACCO CESSATION (REFER TO SMARTSET #6114) 1950 Hepatitis B (2 of 3 - [...] D LEVEL ONCE IN A LIFETIME-USE SMARTSET# [id number] Completed 08/02/2011, 04/24/2009, 06/25/2008, Additional history exists Mammogram Discontinued 12/18/2014, 11/05, 12/22/2006, Additional history exists Pneumococcal Vaccine: 65+ Years Completed 08/10/2017, 06/14/2016 Alpha-1 Antitrypsin Completed 03/15/2022 LUNG CANCER SCREENING - USE SMARTSET 50889 Completed 06/23/2022, 10/15/2019, 2018, Additional history exists [...] colon documented in this encounter Care Teams Chemical Laboratory Chief Relationship Specialty Start Date End Date Joanie Maurer DO [address] [place] [address] PCP - General Family Medicine 04/04/19 documented as of this encounter
--- OUTSIDE RECORDS SUMMARY | 2023-02-27 13:02 | External Medical Summary | Summary of Care ---
Author Name Unknown Organization [facility] Address [address] [place] [address] Phone [phone] Care Team Providers Care Orthotic Assistant Name Role Phone Hayes Maurer Primary Care Provider Reason for Visit * Reason Onset Date Comments Advice 10/03/2022 Encounter Details Date Type Department Care Team Description 10/03/2022 Telephone Family Practice [facility] [address] [place] [address] Reyes Qureshi MD [address] [place] [address] [place] [id number] Advice Allergies Active Allergy Reactions Severity Noted [...] mRNA, LNP-s, No Pre serve, 2-Dose Series (Reedsy) 03/04/2021,07/22/2020,07/01/2020 Hepatitis B Vaccine 03/26/1997 Pneumococcal Conjugate [...] Amaya LPN - 10/03/2022 10:44 AM EDT Information given to pt as noted below. * Telephone Encounter - Hayes Maurer DO [...] said they were swollen at Discharge from [facility] but no one seemed to care. I [...] Medicine Preethi Jones CRNP [address] [place] [address] 10/18/2022 Imaging Radiology 10/18/2022 Laboratory Laboratory [facility] [address] [place] [address] 10/18/2022 Office Visit Family Medicine Lalit Wiggins CRNP [address] [place] [address] 10/21/2022 Office Visit Family Medicine Zaira Betancourt CRNP [address] [place] [address] 11/02/2022 Office Visit Gastroenterology Rufina Alvarez CRNP [address] [place] [address] 11/09/2022 Office Visit Urology Sahil Funk MD [address] [facility] [address] [place] [address] 01/17/2023 Hospital Encounter Endoscopy Michael Alejandro MD [address] [place] [address] 01/17/2023 Surgery Endoscopy Michael Alejandro MD [address] [place] [address] COLONOSCOPY FLEXIBLE PROXIMAL DIAGNOSTIC 03/09/2023 Office Visit Family Medicine Erasto Hayes ShermargotDO [address] [place] [address] Scheduled Procedures Name Priority Associated Diagnoses Date/Ti [...] D LEVEL ONCE IN A LIFETIME-USE SMARTSET# [id number] Completed 08/02/2011, 04/24/2009, 06/25/2008, Additional history exists Mammogram Discontinued 12/18/2014, 11/05, 12/22/2006, Additional history exists Pneumococcal Vaccine: 65+ Years Completed 08/10/2017, 06/14/2016 Alpha-1 Antitrypsin Completed 03/15/2022 LUNG CANCER SCREENING - USE SMARTSET [id number] Completed 06/23/2022, 10/15/2019, 2018, Additional history exists GARDASIL-HPV IMMUNIZATION SERIES Aged Out No longer eligible based on patient's age to complete this topic MENINGOCOCCAL (MENACTRA/MENVEO) Aged Out No longer eligible based on patient's age to complete this topic documented as of this encounter Medical Devices Not on filedocumented as of this encounter Care Teams Orthotic Assistant Relationship Specialty Start Date End Date Hayes Maurer DO [address] [place] [address] PCP - General Family Medicine 04/04/19 documented as of this encounter
--- OUTSIDE RECORDS SUMMARY | 2023-02-27 13:02 | External Medical Summary | Summary of Care ---
Author Name Unknown Organization [facility] Address [address] [place] [address] Phone [phone] Care Team Providers Care A/C Tech Name Role Phone Hayes Maurer Primary Care Provider Reason for Visit * Reason Onset Date Comments Outpatient Testing 09/26/2022 Encounter Details Date Type Department Care Team Description 09/26/2022 Telephone Gastroenterology, [facility] [address] [place] [address] Bryanna Gaytan CRNP [address] [place] [address] Outpatient Testing Allergies Active Allergy Reactions Severity Noted Date Comments Morphine 03/26/1997 Shock, dyspnea Other reaction(s): shock, dspnea Neomycin 04/07/2013 documented as of this encounter (statuses as of 09/26/2022) Medications Medication Sig Dispensed Refills Start Date [...] as of this encounter (statuses as of 09/26/2022) Active Problems Problem Noted Date COPD, group [...] as of this encounter (statuses as of 09/26/2022) Resolved Problems Problem Noted Date Resolved Date [...] as of this encounter (statuses as of 09/26/2022) Immunizations Name Administration Dates Next Due COVID-19 [...] encounter Miscellaneous Notes * Telephone Encounter - FARTUN Beverly - 09/26/2022 5:09 PM EDT This pt was seen in consult at [facility] for weight loss. Had a recent EGD w esophagitis and it appears that she has a colonoscopy arranged for January. Dr. Dent asks that we change to repeat EGD with a colonoscopy in approx 4-6 wks. I entered EGD order. I don't think you need a new Colonoscopy order. documented in this encounter Plan of Treatment Upcoming Encounters Date Type Specialty Care Team Description 10/18/2022 Imaging Radiology 10/18/2022 Laboratory Laboratory [facility] [address] [place] [address] 10/18/2022 Office Visit Family Medicine Lalit Wiggins CRNP [address] [place] [address] 10/21/2022 Office Visit Family Medicine Zaira Betancourt CRNP [address] [place] [address] 11/02/2022 Office Visit Gastroenterology Rufina Alvarez CRNP [address] [place] [address] 11/09/2022 Office Visit Urology Sahil Funk MD [address] [place] [address] [place] [address] 01/17/2023 Hospital Encounter Endoscopy Michael Alejandro MD [address] [place] [address] 01/17/2023 Surgery Endoscopy Michael Alejandro MD [address] [place] [address] COLONOSCOPY FLEXIBLE PROXIMAL DIAGNOSTIC 03/09/2023 Office Visit Family Medicine Hayes Maurer DO [address] [place] [address] Scheduled Orders Name Type Priority Associated Diagnoses Orde r Schedule EGD, FLEXIBLE, DIAGNOSTIC Procedures Routine Gastroesophageal reflux disease with esophagitis without hemorrhage Ordered: 09/26/2022 Scheduled Procedures Name Priority Associated Diagnoses Date/Ti me COLONOSCOPY FLEXIBLE PROXIMAL DIAGNOSTIC Recall History of colon polyps Special screening for malignant neoplasms, colon 01/17/2023 2:30 PM EST Health Maintenance Due Date Last Done Comments DISCUSS TOBACCO CESSATION (REFER TO SMARTSET #7341) 1950 Hepatitis B (2 of 3 - [...] D LEVEL ONCE IN A LIFETIME-USE SMARTSET# [id number] Completed 08/02/2011, 04/24/2009, 06/25/2008, Additional history exists Mammogram Discontinued 12/18/2014, 11/05, 12/22/2006, Additional history exists Pneumococcal Vaccine: 65+ Years Completed 08/10/2017, 06/14/2016 Alpha-1 Antitrypsin Completed 03/15/2022 LUNG CANCER SCREENING - USE SMARTSET 55411 Completed 06/23/2022, 10/15/2019, 2018, Additional history exists GARDASIL-HPV IMMUNIZATION SERIES Aged Out No longer eligible based on patient's age to complete this topic MENINGOCOCCAL (MENACTRA/MENVEO) Aged Out No longer eligible based on patient's age to complete this topic documented as of this encounter Medical Devices Not on filedocumented as of this encounter Visit Diagnoses Diagnosis Gastroesophageal reflux disease without esophagitis- Primary Esophageal reflux Gastroesophageal reflux disease with esophagitis without hemorrhage History of colon polyps Personal history of colonic polyps Special screening for malignant neoplasms, colon documented in this encounter Care Teams A/C Tech Relationship Specialty Start Date End Date Hayes Maurer DO [address] [place] [address] PCP - General Family Medicine 04/04/19 documented as of this encounter
--- OUTSIDE RECORDS SUMMARY | 2023-02-27 13:02 | External Medical Summary | Summary of Care ---
Author Name Unknown Organization [facility] Address [address] [place] [address] Phone [phone] Care Team Providers Care Wrapper Leaf Inspector Name Role Phone Hayes Maurer Primary Care Provider Reason for Visit * Reason Onset Date Comments Outpatient Testing 09/26/2022 Encounter Details Date Type Department Care Team Description 09/26/2022 Telephone Gastroenterology, [facility] [address] [place] [address] Bryanna Gaytan CRNP [address] [place] [address] Outpatient Testing Allergies Active Allergy Reactions Severity Noted Date Comments Morphine 03/26/1997 Shock, dyspnea Other reaction(s): shock, dspnea Neomycin 04/07/2013 documented as of this encounter (statuses as of 09/27/2022) Medications Medication Sig Dispensed Refills Start Date [...] as of this encounter (statuses as of 09/27/2022) Active Problems Problem Noted Date COPD, group [...] as of this encounter (statuses as of 09/27/2022) Resolved Problems Problem Noted Date Resolved Date [...] as of this encounter (statuses as of 09/27/2022) Immunizations Name Administration Dates Next Due COVID-19 [...] * Telephone Encounter - JADYN Ayala - 09/27/2022 8:02 AM EDT Dup Encounter * Telephone Encounter - FARTUN Beverly - 09/26/2022 5:09 PM EDT This pt was seen in consult at [facility] for weight loss. Had a recent EGD [...] Laboratory Laboratory [facility] [address] [place] [address] 10/18/2022 Office Visit Family Medicine Lalit Wiggins CRNP [address] [place] [address] 10/21/2022 Office Visit Family Medicine Zaira Betancourt CRNP [address] [place] [address] 11/02/2022 Office Visit Gastroenterology Rufina Alvarez CRNP [address] [place] [address] 11/09/2022 Office Visit Urology Sahil Funk MD [address] [place] [address] [place] [address] 01/17/2023 Hospital Encounter Endoscopy Michael Alejandro MD [address] [place] [address] 01/17/2023 Surgery Endoscopy Michael Alejandro MD [address] [place] [address] COLONOSCOPY FLEXIBLE PROXIMAL DIAGNOSTIC 03/09/2023 Office Visit Family Medicine Hayes Maurer DO [address] [place] [address] Scheduled Orders Name Type Priority Associated Diagnoses [...] Comments DISCUSS TOBACCO CESSATION (REFER TO SMARTSET #8807) 1950 Hepatitis B (2 of 3 - [...] D LEVEL ONCE IN A LIFETIME-USE SMARTSET# [id number] Completed 08/02/2011, 04/24/2009, 06/25/2008, Additional history exists Mammogram Discontinued 12/18/2014, 11/05, 12/22/2006, Additional history exists Pneumococcal Vaccine: 65+ Years Completed 08/10/2017, 06/14/2016 Alpha-1 Antitrypsin Completed 03/15/2022 LUNG CANCER SCREENING - USE SMARTSET 18939 Completed 06/23/2022, 10/15/2019, 2018, Additional history exists [...] colon documented in this encounter Care Teams Wrapper Leaf Inspector Relationship Specialty Start Date End Date Hayes Maurer DO [address] [place] [address] PCP - General Family Medicine 04/04/19 documented as of this encounter
--- OUTSIDE RECORDS SUMMARY | 2023-02-27 13:02 | External Medical Summary | Summary of Care ---
Author Name Unknown Organization [facility] Address [address] [place] [address] Phone [phone] Care Team Providers Care Flue Lining Dipper Name Role Phone Hayes Maurer Primary Care Provider Reason for Visit * Reason Comments Nurse Documentation B 12 shot Encounter Details Date Type Department Care Team Description 09/20/2022 Immunization/Injec tion Ancillary [facility] [address] [place] [address] Nurse Tito [facility] Annamarie Arrington [address] [facility] [place] [address] Arrived Allergies Active Allergy Reactions Severity Noted Date Comments Morphine 03/26/1997 Shock, dyspnea Other reaction(s): shock, dspnea Neomycin 04/07/2013 documented as of this encounter (statuses as of 09/20/2022) Medications Medication Sig Dispensed Refills Start Date [...] 1000 mcg IM QWEEK 08/23/2022 09/20/2022 Active Furosemide (Lasix) inj 40 mg 40 mg IV PUSH ONCE 09/20/2022 09/21/2022 Active documented as of this encounter (statuses as of 09/20/2022) Active Problems Problem Noted Date COPD, group [...] as of this encounter (statuses as of 09/20/2022) Resolved Problems Problem Noted Date Resolved Date [...] as of this encounter (statuses as of 09/20/2022) Immunizations Name Administration Dates Next Due COVID-19 [...] as of this encounter Nursing Notes * Ingrid Omalley LPN - 09/20/2022 2:55 PM EDT The patient has been properly identified by confirmation of name and date of . Chief Complaint Patient presents with Nurse Documentation B 12 shot documented in this encounter Plan of Treatment Upcoming Encounters Date Type Specialty Care Team Description 10/21/2022 Office Visit Family Medicine Zaira Betancourt CRNP [address] [place] [address] 11/02/2022 Office Visit Gastroenterology Rufina Alvarez CRNP [address] [place] [address] 11/09/2022 Office Visit Urology Sahil Funk MD [address] [place] [address] [place] [address] 03/09/2023 Office Visit Family Medicine Hayes Maurer, [address] [place] [address] Scheduled Procedures Name Priority Associated Diagnoses Date/Ti me COLONOSCOPY FLEXIBLE PROXIMAL DIAGNOSTIC Recall History of colon polyps Health Maintenance Due Date Last Done Comments DISCUSS TOBACCO CESSATION (REFER TO SMARTSET #6239) 1950 Hepatitis B (2 of 3 - [...] COPD 07/20/2023 07/19/2022 Lipid Panel 03/15/2027 03/15/2022, 12, 10/01/2019, Additional history exists VITAMIN D LEVEL ONCE IN A LIFETIME-USE SMARTSET# [id number] Completed 08/02/2011, 04/24/2009, 06/25/2008, Additional history exists Mammogram Discontinued 12/18/2014, 11/05, 12/22/2006, Additional history exists Pneumococcal Vaccine: 65+ Years Completed 08/10/2017, 06/14/2016 Alpha-1 Antitrypsin Completed 03/15/2022 LUNG CANCER SCREENING - USE SMARTSET 52219 Completed 06/23/2022, 10/15/2019, 2018, Additional history exists GARDASIL-HPV IMMUNIZATION SERIES Aged Out No longer eligible based on patient's age to complete this topic MENINGOCOCCAL (MENACTRA/MENVEO) Aged Out No longer eligible based on patient's age to complete this topic documented as of this encounter Medical Devices Not on filedocumented as of this encounter Administered Medications Active Administered Medications - up to 3 most recent administrations Medication Order MAR Action Action Date Dose Rate Site vitamin b-12 (Cyanocobalamin) inj 1,000 mcg 1,000 mcg, Intramuscular, QWEEK, First dose on Mon08/23/22 at 1700, Last dose on Mon09/13/22 at 1700, For 4 doses Given 09/20/2022 2:56 PM EDT 1,000 mcg Deltoid Left Upper Given 08/25/2022 4:48 PM EDT 1,000 mcg De ltoid Left Upper documented in this encounter Care Teams Flue Lining Dipper Relationship Specialty Start Date End Date Hayes Maurer DO [address] [place] [address] PCP - General Family Medicine 04/04/19 documented as of this encounter
--- OUTSIDE RECORDS SUMMARY | 2023-02-27 13:02 | External Medical Summary | Summary of Care ---
Author Name Unknown Organization [facility] Address [address] [place] [address] Phone [phone] Care Team Providers Care Paper Tube Cutter Name Role Phone Joanie Maurer DO Primary Care Provider Reason for Referral * Ancillary Services (Within 3 days (urgent)) - Authorized Specialty Diagnoses / Procedures Referred By Johanny garcia Referred To Contact Gastroenterology Diagnoses Special screening for malignant neoplasms, colon Joanie Maurer DO [address] [place] [address] Referral ID Status Reason Start Date Expiration Date Visits Requested Visits Authorized [id number] Authorized Ancillary Services Required 09/22/2022 999 999 Question Answer Referral Priority Within 3 days (urgent) Comments ALERT: Do not order for pediatric patients (18 years or younger). Cancel off screen and order PEDS GASTROENTEROLOGY CONSULT (Type: 1 visit only-Evaluate and Treat) The following Pt. Instructions are available: - Gastro Colonoscopy Prep Instructions [75759] - Gastro Colonoscopy Prep Instructions (Faroese Version) [[id number]] Go to the Pt. Instructions section within [...] Severe protein-calorie malnutrition (HCC) Joanie Maurer DO [address] [place] [address] Referral ID Status Reason Start Date Expiration Date Visits Requested Visits Authorized [id number] Authorized Specialty Services Required 09/22/2022 999 999 [...] (HCC) Joanie Maurer DO [address] [place] [address] Referral ID Status Reason Start Date Expiration Date Visits Requested Visits Authorized [id number] Authorized Specialty Services Required 09/22/2022 999 999 [...] Care Team Description 09/21/2022 Telephone Family Practice [facility] [address] [place] [address] Joanie Maurer DO [address] [place] [address] Advice (Status of message) Allergies Active Allergy [...] mRNA, LNP-s, No Pre serve, 2-Dose Series (Contemporary [employer]) 03/04/2021,07/22/2020,07/01/2020 Hepatitis B Vaccine 03/26/1997 Pneumococcal Conjugate [...] about colonoscopy prep * Telephone Encounter - Vivien Cuba LPN - 09/23/2022 10:09 AM EDT Provider to address: Patient aware and verbalized understanding. Is agreeable with mammogram. Is also agreeable with labs- asks that B12 is ordered. Pt is unsure when last PAP was.- per review, last PAP with [facility] was 02/19/2015. States that she will not [...] about medical advice Caller was transferred to [facility] at the nurse line. * Telephone Encounter - Ambar Muarer - 09/22/2022 1:12 PM EDT Pt is already scheduled with [facility] nutrition in October. I will send them this message to triagefor sooner appts. Thanks! Nursing, when you call pt please inform pt that psychology referral placed and we can do video in [facility] or she can call local office for [...] Other: Advice Outcome: Received transferred call from [place] from scheduling. Patient states Dr. Funk called [...] the steps. [facility] and they [...] nurse regarding stent Caller was transferred to [facility] at the nurse line. documented in this encounter Plan of Treatment Upcoming Encounters Date Type Specialty Care Team Description 10/18/2022 Imaging Radiology 10/18/2022 Laboratory Laboratory [facility] [address] [place] [address] 10/18/2022 Office Visit Family Medicine Lalit Wiggins CRNP [address] [place] [address] 10/21/2022 Office Visit Family Medicine Zaira Betancourt, FARTUN [address] [place] [address] 11/02/2022 Office Visit Gastroenterology Rufina Alvarez CRNP [address] [place] [address] 11/09/2022 Office Visit Urology Sahil Funk MD [address] [place] [address] [place] [address] 03/09/2023 Office Visit Family Medicine Joanie Maurer DO [address] [place] [address] Scheduled Orders Name Type Priority Associated Diagnoses [...] Comments DISCUSS TOBACCO CESSATION (REFER TO SMARTSET #6101) 1950 Hepatitis B (2 of 3 - [...] D LEVEL ONCE IN A LIFETIME-USE SMARTSET# [id number] Completed 08/02/2011, 04/24/2009, 06/25/2008, Additional history exists Mammogram Discontinued 12/18/2014, 11/05, 12/22/2006, Additional history exists Pneumococcal Vaccine: 65+ Years Completed 08/10/2017, 06/14/2016 Alpha-1 Antitrypsin Completed 03/15/2022 LUNG CANCER SCREENING - USE SMARTSET 34637 Completed 06/23/2022, 10/15/2019, 2018, Additional history exists [...] colon documented in this encounter Care Teams Paper Tube Cutter Relationship Specialty Start Date End Date Joanie Maurer, [address] [place] [address] PCP - General Family Medicine 04/04/19 documented as of this encounter
--- OUTSIDE RECORDS SUMMARY | 2023-02-27 13:02 | External Medical Summary | Summary of Care ---
Author Name Unknown Organization [facility] Address [address] [place] [address] Phone [phone] Care Team Providers Care Director Economic Name Role Phone Hayes Maurer Primary Care Provider Reason for Referral * Evaluate & Treat - Unlimited Visits (Within 10 days (routine)) - Authorized Specialty Diagnoses / Procedures Referred By Johanny t Referred To Contact Cardiovascular Medicine / Cardiology Diagnoses Generalized weakness Pulmonary hypertension (HCC) Reyes Qureshi MD [address] [place] [address] [place] [address] Referral ID Status Reason Start Date Expiration Date Visits Requested Visits Authorized [id number] Authorized Specialty Services Required 10/03/2022 999 999 Question Answer Referral Priority Within 10 days (routine) To which of the following clinics are you referring your patient? General Cardiology Clinic Comments Pt recently hospitalized for dizziness, weakness. Bradycardia noted while in ER. Reason for Visit * Reason Onset Date Comments Advice 10/03/2022 Encounter Details Date Type Department Care Team Description 10/03/2022 Telephone Family Practice [facility] [address] [facility] [place] [address] Reyes Qureshi MD [address] [place] [address] [place] [id number] Advice Allergies Active Allergy Reactions Severity Noted [...] mRNA, LNP-s, No Pre serve, 2-Dose Series (Broadcast[employer]) 03/04/2021,07/22/2020,07/01/2020 Hepatitis B Vaccine 03/26/1997 Pneumococcal Conjugate [...] PM EDT No answer/vm Will try later * Addendum Note - Danae Amaya LPN [...] Maurer for hosp f/u, but will see SUPERVISOR [employer], but only can do later in the [...] they were swollen at Discharge from [facility] but no one seemed to care. [...] Preethi Jones CRNP [address] [place] [address] 10/18/2022 Imaging Radiology 10/18/2022 Laboratory Laboratory [facility] [address] [place] [address] 10/18/2022 Office Visit Family Medicine Lalit Wiggins CRNP [address] [place] [address] 10/21/2022 Office Visit Family Medicine Zaira Betancourt CRNP [address] [place] [address] 11/02/2022 Office Visit Gastroenterology Rufina Alvarez CRNP [address] [place] [address] 11/09/2022 Office Visit Urology Sahil Funk MD [address] [place] [address] [place] [address] 01/17/2023 Hospital Encounter Endoscopy Michael Alejandro MD [address] [place] [address] 01/17/2023 Surgery Endoscopy Michael Alejandro MD [address] [place] [address] COLONOSCOPY FLEXIBLE PROXIMAL DIAGNOSTIC 03/09/2023 Office Visit Family Medicine Hayes Maurer DO [address] [place] [address] Scheduled Procedures Name Priority Associated Diagnoses Date/Ti [...] D LEVEL ONCE IN A LIFETIME-USE SMARTSET# [id number] Completed 08/02/2011, 04/24/2009, 06/25/2008, Additional history exists Mammogram Discontinued 12/18/2014, 11/05, 12/22/2006, Additional history exists Pneumococcal Vaccine: 65+ Years Completed 08/10/2017, 06/14/2016 Alpha-1 Antitrypsin Completed 03/15/2022 LUNG CANCER SCREENING - USE SMARTSET 47720 Completed 06/23/2022, 10/15/2019, 2018, Additional history exists [...] documented in this encounter Care Teams Director Economic Relationship Specialty Start Date End Date Hayes Maurer DO [address] [place] [address] PCP - General Family Medicine 04/04/19 documented as of this encounter
--- OUTSIDE RECORDS SUMMARY | 2023-02-27 13:02 | External Medical Summary | Summary of Care ---
Author Name Unknown Organization [facility] Address [address] [place] [address] Phone [phone] Care Team Providers Care 2Nd Grade Teacher Name Role Phone Hayes Maurer Primary Care Provider Reason for Referral * Evaluate & Treat - Unlimited Visits (Within 10 days (routine)) - Authorized Specialty Diagnoses / Procedures Referred By Johanny t Referred To Contact Cardiovascular Medicine / Cardiology Diagnoses Generalized weakness Pulmonary hypertension (HCC) Reyes Qureshi MD [address] [place] [address] [place] [address] Referral ID Status Reason Start Date Expiration Date Visits Requested Visits Authorized [id number] Authorized Specialty Services Required 10/03/[phone] Question Answer Referral Priority Within 10 days (routine) To which of the following clinics are you referring your patient? General Cardiology Clinic Comments Pt recently hospitalized for dizziness, weakness. Bradycardia noted while in ER. Reason for Visit * Reason Onset Date Comments Advice 10/03/2022 Encounter Details Date Type Department Care Team Description 10/03/2022 Telephone Family Practice [facility] [address] [facility] [place] [address] Reyes Qureshi MD [address] [place] [address] [place] [id number] Advice Allergies Active Allergy Reactions Severity Noted [...] mRNA, LNP-s, No Pre serve, 2-Dose Series (TixAlert) 03/04/2021,07/22/2020,07/01/2020 Hepatitis B Vaccine 03/26/1997 Pneumococcal Conjugate [...] encounter Miscellaneous Notes * Addendum Note - Catie York LPN - 10/03/2022 12:29 PM EDTAddended by: CATIE YORK on: 10/03/2022 12:29 PM Modules accepted: Orders * Telephone Encounter - Catie York LPN - 10/03/2022 10:44 AM EDT (FYI) Information given to pt as noted below. Scheduling--Please assist below. Pt states she is in need of rescheduling her hosp f/u,needs appt with Robert cuevased for 10/04/2022. Pt prefers to see Dr. Maurer for hosp f/u, but will see [facility], but only can do later in the [...] Jones CRNP [address] [place] [address] 10/18/2022 Imaging Radiology 10/18/2022 Laboratory Laboratory Evy Francis [address] [place] [address] 10/18/2022 Office Visit Family Medicine Lalit Wiggins CRNP [address] [place] [address] 10/21/2022 Office Visit Family Medicine Zaira Betancourt CRNP [address] [place] [address] 11/02/2022 Office Visit Gastroenterology Rufina Alvarez CRNP [address] [place] [address] 11/09/2022 Office Visit Urology Sahil Funk MD [address] [place] [address] [place] [address] 01/17/2023 Hospital Encounter Endoscopy Michael Alejandro MD [address] [place] [address] 01/17/2023 Surgery Endoscopy Michael Alejandro MD [address] [place] [address] COLONOSCOPY FLEXIBLE PROXIMAL DIAGNOSTIC 03/09/2023 Office Visit Family Medicine Hayes Maurer, [address] [place] [address] Scheduled Procedures Name Priority Associated Diagnoses Date/Ti [...] D LEVEL ONCE IN A LIFETIME-USE SMARTSET# 10818 Completed 08/02/2011, 04/24/2009, 06/25/2008, Additional history exists Mammogram Discontinued 12/18/2014, 11/05, 12/22/2006, Additional history exists Pneumococcal Vaccine: 65+ Years Completed 08/10/2017, 06/14/2016 Alpha-1 Antitrypsin Completed 03/15/2022 LUNG CANCER SCREENING - USE SMARTSET 09815 Completed 06/23/2022, 10/15/2019, 2018, Additional history exists [...] colon documented in this encounter Care Teams 2Nd Grade Teacher Relationship Specialty Start Date End Date Hayes Maurer DO [address] [place] [address] PCP - General Family Medicine 04/04/19 documented as of this encounter
--- OUTSIDE RECORDS SUMMARY | 2023-02-27 13:02 | External Medical Summary | Summary of Care ---
Author Name Unknown Organization [facility] Address [address] [place] [address] Phone [phone] Care Team Providers Care Windshield Wiper Repairer Name Role Phone Hayes Maurer Primary Care Provider Reason for Visit * Evaluate & Treat - Unlimited Visits (Within 10 days (routine)) - Authorized Specialty Diagnoses / Procedures Referred By Johanny garcia Referred To Contact Nephrology Diagnoses Hydronephrosis, unspecified hydronephrosis type Rufina Alvarez CRNP [address] [place] [address] Referral ID Status Reason Start Date Expiration Date Visits Requested Visits Authorized [id number] Authorized Specialty Services Required 08/17/[phone] Encounter Details Date Type Department Care Team Description 09/08/2022 Telemedicine Nephrology, [place] [address] [place] [address] Alexa Wray DO [address] [place], [place] [id number] Other hydronephrosis*; Lower leg edema Allergies Active Allergy Reactions Severity Noted Date Comments Morphine 03/26/1997 Shock, dyspnea Other reaction(s): shock, dspnea Neomycin 04/07/2013 documented as of this encounter (statuses as of 09/19/2022) Medications Medication Sig Dispensed Refills Start Date [...] as of this encounter (statuses as of 09/19/2022) Active Problems Problem Noted Date COPD, group [...] as of this encounter (statuses as of 09/19/2022) Resolved Problems Problem Noted Date Resolved Date [...] as of this encounter (statuses as of 09/19/2022) Immunizations Name Administration Dates Next Due COVID-19 mRNA, LNP-s, No Pre serve, 2-Dose Series (Miscota) 03/04/2021,07/22/2020,07/01/2020 Pneumococcal Conjugate Vacc, 13 Valent (Prevnar) [...] as of this encounter Progress Notes * Alexa Wray, - 09/08/2022 8:40 AM EDT Nephrology Telephone Encounter After connecting to the patient via telephone, the patient was identified by name and date of . Patient was then informed that this was a telephone call only visit. The patient agreed to participate. This is an established patient evaluated in my specialty within the past three years no Visit Disposition: new patient Total call duration was 24minutes. Nephrology Clinic Nephrology, [address] [address] 09/08/2022 New patient HPI 72 year old year old female PMHx Past Medical History: Diagnosis Date Abnormal Papanicolaou [...] Osteomyelitis (HCC) left knee Peptic ulcer PUD FARTUN Villaseñor referred for hydro CTA 08/2022- showed severe right hydro of pelvic kidney Severe Right hydro - following with Urology COPD Pulmonary HTN Osteoporosis Hypothyroidism Tobacco use: Saw Urology for severe right hydro, last labs 07/2022 Cr was 0.7, urology has scheduled NM kidney scan on 09/20 for further evaluation. Swelling knees and ankles Losing weight - + diarrhea NSAIDs : no HTN yes Diabetes no Nephrolithiasis no Frequent UTIs no Herbal Supplements no PPI no Family history of CKD/ dialysis no Smoking: yes PAST MEDICAL HISTORY: Past Medical History: Diagnosis [...] Procedure Laterality Date COLONOSCOPY W/ BIOPSY (RECTUM) 05/22/07 5 2-3 mm polyps- hyperplastic polyps--repeat 3 years COLONOSCOPY, DIAGNOSTIC (RECTUM) 12/26/2017 diverticulosis, repeat 5 yrs/COLONOSCOPY FLEXIBLE PROXIMAL DIAGNOSTIC performed by Deisi Dent DO at [facility] EGD, FLEXIBLE, DIAGNOSTIC 07/19/2022 ESOPHAGOGASTRODUODENOSCOPY (EGD), FLEXIBLE, TRANSORAL, DIAGNOSTIC performed by Jessica Martinez DO at [facility] EGD, FLEXIBLE, W/BIOPSY 04/24/07 chronic gastric inflammation LAPAROSCOPY OF PELVIS MAMMOGRAM - BILATERAL 08/25/99 Negative assessment. REMOVAL OF THYROID GLAND Thyroidectomy SPINAL FUSION, LUMBAR, COMBINED lumbar x 3 US - BREAST(S) 08/25/99 Extremely dense breasts, no lesion on u/s. CURRENT MEDICATIONS: Current Outpatient Medications Medication Sig Dispense Refill Levothyroxine Sodium 75 MCG Oral Tablet (Levoxyl) TAKE 1 TABLET BY MOUTH EVERY DAY AT LEAST 30 MIN BEFORE BREAKFAST OR OTHER MEDICATION 90 Tablet 3 Famotidine 40 MG Oral Tablet (Pepcid) Take 1 Tablet by mouth at bedtime as needed for Heartburn. 30 Tablet 11 Metoprolol Tartrate 12.5 MG OR Tablet Take by mouth at bedtime. Dicyclomine HCl 10 MG Oral Capsule (Bentyl) Take 1 Capsule by mouth 3 times a day as needed forPain. As needed for abd pain. Oxybutynin Chloride ER 5 MG Oral Tablet Extended Release 24 Hour (Ditropan XL) Take 1 Tablet bymouth in the morning. 30 Tablet 6 Metoprolol Succinate ER 25 MG Oral Tablet Extended Release 24 Hour (toPROL XL) Take 0.5 Tabletsby mouth in the morning. 90 Tablet 3 Current Facility-Administered Medications Medication Dose Route Frequency Provider Last Rate Last Admin vitamin b-12 (Cyanocobalamin) inj 1,000 mcg 1,000 mcg Intramuscular Q Week Hayes Maurer DO 1,000 mcg at 08/25/22 1648 ALLERGIES: Morphine and Neomycin FAMILY HISTORY: Family History Problem Relation Age of Onset Endocrine Disorder Mother hypothyroidism Cancer Mother uterine Other (crohn's) Mother Hypertension Father Diabetes Father No Past Hx Sister No Past Hx Sister Cancer Aunt (Unspecified) paternal;breast Other (Rheumatoid arthritis) Sister ? SLE Other (crohn's) Other neice SOCIAL HISTORY: Social History Tobacco Use Smoking status: Some Days Packs/day: 0.55 Years: 37.00 Pack years: 20.35 Types: Cigarettes Smokeless tobacco: Never Tobacco comments: 1/2 per day-started age 35 Vaping Use Vaping Use: Never used Substance Use Topics Alcohol use: No Drug use: No REVIEW OF SYSTEMS: Refer to HPI, otherwise negative in detail. PHYSICAL EXAMINATION: LMP 06/14/1999 Labs Creatinine Results: Lab Results Component Value Date/Time CREATININE - [facility] 0.7 07/28/2022 02:27 PM CREATININE - [facility] 0.8 07/15/2022 03:18 PM CREATININE - [facility] 0.8 03/15/2022 04:30 PM CREATININE - [facility] 0.8 10/01/2019 04:08 PM CREATININE - [facility] 0.8 09/18/2018 04:46 PM CREATININE - [facility] 0.7 11/30/2017 05:06 PM CREATININE, RANDOM URINE - [facility] 115 03/15/2022 04:30 PM CREATININE, RANDOM URINE - [facility] 152 10/01/2019 04:17 PM CREATININE, RANDOM URINE - [facility] 148 06/23/1999 12:31 PM CREATININE-OUTSIDE LAB 0.64 07/05/2022 12:00 AM CREATININE-OUTSIDE LAB 0.96 08/04/2017 12:00 AM Hemoglobin Results: Lab Results Component Value Date/Time HGB - [facility] 13.9 07/15/2022 03:18 PM HGB - [facility] 13.8 03/15/2022 04:30 PM HGB - [facility] 14.2 03/04/2021 04:16 PM HGB - [facility] 13.9 10/01/2019 04:08 PM HGB - [facility] 14.7 09/18/2018 04:46 PM HGB - [facility] 14.5 11/30/2017 05:06 PM No results found for: GFR No results found for: PROTCREATRAT Imaging EXAM CTA ABDOMEN W CONTRAST - 08/16/2022 HISTORY loss of weight, abd pain COMPARISON CT abdomen/pelvis dated 2018. TECHNIQUE Oral Contrast: Oral contrast was not administered. IV Contrast: Administered ; Two (arterial and portal venous) phase CT angiogram of the abdomen was performed. Axial, coronal, and sagittal MPR images are provided. 3D, MIP and CPR images are obtained on an independent software. FINDINGS VASCULAR FINDINGS: AORTA: The abdominal aorta is tortuous with moderate scattered atherosclerosis. No stenosis or aneurysm. RENAL ARTERIES: The renal arteries are well opacified and normal in caliber without significant stenosis. Single accessory renal arteries bilaterally. The renal venous drainage is unremarkable. CELIAC ARTERY: Patent. Conventional branching pattern. SUPERIOR MESENTERIC ARTERY: Patent. Conventional branching pattern. INFERIOR MESENTERIC ARTERY: Patent. ILIAC ARTERIES (visualized): The iliac arteries are tortuous in course with scattered atherosclerosis. No stenosis or aneurysm. NONVASCULAR FINDINGS: LOWER CHEST: HEART (visualized): Unremarkable LUNG BASES: Mild dependent atelectasis bilaterally. Scattered linear scarring/atelectasis bilaterally. ABDOMEN/PELVIS: LINES AND DEVICES: Posterior lumbar fusion hardware, which causes artifact and partially limits evaluation of the adjacent structures. LIVER: Small right hepatic simple cyst. BILE DUCTS: No ductal dilation. GALLBLADDER: Unremarkable PANCREAS: Unremarkable SPLEEN: Unremarkable ADRENALS: Unremarkable KIDNEYS/URETERS: Pelvic right kidney. Severe hydronephrosis of the right kidney, increased comparedto 2018. The kidneys enhance contrast symmetrically. Nonobstructive calculus in the left renal lower pole. BOWEL: Visualized portions are normal in caliber. LYMPH NODES: No lymphadenopathy. PERITONEUM/RETROPERITONEUM: Unremarkable ABDOMINAL WALL/SOFT TISSUES: Unremarkable BONES: Status post L3-L4 posterior fusion with associated laminectomy. Polyarticular degenerative changes. IMPRESSION IMPRESSION 1. Severe hydronephrosis of the right kidney, which is located in the pelvis. 2. No vascular abnormality to explain the patient's symptoms A/P Severe Right hydronephrosis Lower leg edema Has severe right hydro - following with Urology- scheduled for NM scan on 09/20. Last labs 07/2022 showed normal Cr however needs updated labs to check kidney function. Weight loss/ diarrhea - continue to follow with pcp/ GI Other hydronephrosis (Primary) - RENAL FUNCTION PANEL; Future; Expected date: 09/22/2022 - ALBUMIN / CREATININE RATIO, URINE; Future; Expected date: 09/22/2022 - PROTEIN/ CREATININE RATIO, URINE; Future; Expected date: 09/22/2022 Lower leg edema - RENAL FUNCTION PANEL; Future; Expected date: 09/22/2022 - ALBUMIN / CREATININE RATIO, URINE; Future; Expected date: 09/22/2022 - PROTEIN/ CREATININE RATIO, URINE; Future; Expected date: 09/22/2022 Follow Up: Return in about 8 weeks (around 11/03/2022). Alexa Wray DO Associate, Nephrology documented in this encounter Plan of Treatment Upcoming Encounters Date Type Specialty Care Team Description 09/20/2022 Imaging Radiology 09/20/2022 Immunization/Injection Ancillary Nurse Juanito Francis [address] [place] [address] 10/21/2022 Office Visit Family Medicine Zaira Betancourt CRNP [address] [place] [address] 11/02/2022 Office Visit Gastroenterology Rufina Alvarez CRNP [address] [place] [address] 11/09/2022 Office Visit Urology Sahil Funk MD [address] [facility] [place] [address] [place] [id number] 03/09/2023 Office Visit Family Medicine Hayes Maurer DO [address] [place] [address] Scheduled Orders Name Type Priority Associated Diagnoses Orde r Schedule RENAL FUNCTION PANEL Lab Routine Other hydronephrosis Lower leg edema Expected: 09/22/2022 (Approximate), Expires: 09/09/2023 ALBUMIN / CREATININE RATIO, URINE Lab Routine Other hydronephrosis Lower leg edema Expected: 09/22/2022 (Approximate), Expires: 09/09/2023 PROTEIN/ CREATININE RATIO, URINE Lab Routine Other hydronephrosis Lower leg edema Expected: 09/22/2022 (Approximate), Expires: 09/09/2023 Scheduled Procedures Name Priority Associated Diagnoses Date/Ti me COLONOSCOPY FLEXIBLE PROXIMAL DIAGNOSTIC Recall History of colon polyps Health Maintenance Due Date Last Done Comments DISCUSS TOBACCO CESSATION (REFER TO SMARTSET #1131) 1950 Hepatitis B (2 of 3 - [...] D LEVEL ONCE IN A LIFETIME-USE SMARTSET# [id number] Completed 08/02/2011, 04/24/2009, 06/25/2008, Additional history exists Mammogram Discontinued 12/18/2014, 11/05, 12/22/2006, Additional history exists Pneumococcal Vaccine: 65+ Years Completed 08/10/2017, 06/14/2016 Alpha-1 Antitrypsin Completed 03/15/2022 LUNG CANCER SCREENING - USE SMARTSET [id number] Completed 06/23/2022, 10/15/2019, 2018, Additional history exists GARDASIL-HPV IMMUNIZATION SERIES Aged Out No longer eligible based on patient's age to complete this topic MENINGOCOCCAL (MENACTRA/MENVEO) Aged Out No longer eligible based on patient's age to complete this topic documented as of this encounter Medical Devices Not on filedocumented as of this encounter Visit Diagnoses Diagnosis Other hydronephrosis- Primary Lower leg edema Edema documented in this encounter Care Teams Windshield Wiper Repairer Relationship Specialty Start Date End Date Hayes Maurer DO [address] [place] [address] PCP - General Family Medicine 04/04/19 documented as of this encounter
--- OUTSIDE RECORDS SUMMARY | 2023-02-27 13:03 | External Medical Summary | Summary of Care ---
Author Name Unknown Organization [facility] Address [address] [place] [address] Phone [phone] Care Team Providers Care Desolderer Name Role Phone Joanie Maurer DO Primary Care Provider Reason for Referral * Precert (Within 10 days (routine)) - Authorized Specialty Diagnoses / Procedures Referred By Johanny t Referred To Contact Radiology Diagnoses Hydronephrosis, right Procedures NM KIDNEY IMAGING WITH VASCULAR FLOW AND FUNCTION WITH PHARM Sahil Funk MD [address] [place] [address] Referral ID Status Reason Start Date Expiration Date V isits Requested Visits Authorized [id number] Authorized 09/07/2022 999 999 Reason for Visit * Reason Comments NEW PATIENT Right Hydronephrosis . * Evaluate & Treat - Unlimited Visits (Within 10 days (routine)) - Authorized Specialty Diagnoses / Procedures Referred By Johanny garcia Referred To Contact Urology Diagnoses Hydronephrosis of right kidney Edgar Aceves DO [address] [place] [address] Referral ID Status Reason Start Date Expiration Date Visits Requested Visits Authorized [id number] Authorized Specialty Services Required 08/27/2022 999 999 Encounter Details Date Type Department Care Team Description 09/07/2022 Telemedicine Urology Tiffani Roque [address] [place] [address] Sahil Funk MD [address] [place] [address] 7, Telemed [facility] Ex Rm [address] [place] [address] Hydronephrosis, right*; Urge incontinence Allergies Active Allergy Reactions Severity Noted Date Comments Morphine 03/26/1997 Shock, dyspnea Other reaction(s): shock, dspnea Neomycin 04/07/2013 documented as of this encounter (statuses as of 09/07/2022) Medications Medication Sig Dispensed Refills Start Date [...] As needed for abd pain. 0 Active Metoprolol Succinate ER 25 MG Oral Tablet Extended Release 24 Hour (toPROL XL) Take 0.5 Tablets by mouth in the morning. 0 08/22/2022 Active Solifenacin Succinate 5 MG Oral Tablet (VESIcare) Take 1 Tablet by mouth in the morning. 30 Tablet 6 09/07/2022 Active Hospital, Clinic, or Other Facility Administered Medication Ordered Dose Route Frequency Start Date End Date Status vitamin b-12 (Cyanocobalamin) inj 1,000 mcgIndications:B12 deficiency 1000 mcg IM QWEEK 08/23/2022 09/20/2022 Active documented as of this encounter (statuses as of 09/07/2022) Active Problems Problem Noted Date COPD, group [...] as of this encounter (statuses as of 09/07/2022) Resolved Problems Problem Noted Date Resolved Date [...] as of this encounter (statuses as of 09/07/2022) Immunizations Name Administration Dates Next Due COVID-19 [...] Progress Notes * Sahil Funk MD - 09/07/2022 10:36 AM EDT [id number] PCP: JOANIE MAURER [address] [place] [address] [phone] Patient location: CLINIC. I was in a different facility from the patient. After connecting through [employer], patient was verified with two unique identifiers. Patient (or authorized legal rental representative) was then informed that this was a Telemedicine visit and being conducted confidentially over secure lines. My office door was closed. No one else was in the room with me. Patient acknowledged consent and understanding of privacy and security of the Telemedicine visit, and gave permission to have a telemedicine presenter stay in the room in order to assist with the history and to conduct the exam as needed. I informed the patient that I have reviewed their record in [employer] and presented the opportunity for them to ask any questions regarding the visit today. The patient agreed to participate. Kaci Funk is a 72 year old female, who presents for evaluation of her R hydronephrosis. Patient's CC is vertigo, weight loss, weakness, use of Depends. She notes incontinence of bowels contributing to use. She feels she has a "circulation problem" and the "blood isn't flowing right." She notesit has been ongoing for a month. Bowel Incontinence: Patient is being seen for incontinence. Patient initially reports urinary incontinence, but on further inquiry notes only bowel incontinence. Problem has been present for a few months. Severity is moderate. Problem is getting worse. Initially reported incontinence is urge incontinence. They are using 3-4 pads a day, mostly for thebowels. They have used no medications for incontinence. CT scan Aug 2022: KIDNEYS/URETERS: Pelvic right kidney. Severe hydronephrosis of the right kidney, increased comparedto 2018. The kidneys enhance contrast symmetrically. Nonobstructive calculus in the left renal lower pole. IMPRESSION 1. Severe hydronephrosis of the right kidney, which is located in the pelvis. 2. No vascular abnormality to explain the patient's symptoms. Creatinine Results: Lab Results Component Value Date/Time [...] needed forPain. As needed for abd pain. Current Facility-Administered Medications Medication Dose Route Frequency Provider Last Rate Last Admin vitamin b-12 (Cyanocobalamin) inj 1,000 mcg 1,000 mcg Intramuscular Q Week Joanie Maurer DO 1,000 mcg at 08/25/22 1648 Review of patient's allergies indicates: Allergen Reactions [...] performed by Deisi Dent DO at [facility] EGD, FLEXIBLE, DIAGNOSTIC 07/19/2022 ESOPHAGOGASTRODUODENOSCOPY (EGD), FLEXIBLE, TRANSORAL, DIAGNOSTIC performed by Jessica Martinez DO at [facility] EGD, FLEXIBLE, W/BIOPSY 04/24/07 chronic gastric [...] Osteomyelitis (HCC) left knee Peptic ulcer PUD Patient Active Problem List Diagnosis Code Acquired hypothyroidism E03.9 LUMB-LUMBOSAC DISC DEGEN M51.37 ADVANCE DIRECTIVE INFORMATION Pulmonary hypertension (HCC) I27.20 High risk for fracture due to osteoporosis by DEXA scan M81.0 Positive colorectal cancer screening using Cologuard test R19.5 History of colon polyps Z86.010 COPD, group B, by GOLD 2017 classification ([facility]) J44.9 Constitutional: (-) fever and (-) chills ENT: (-) stridor Female : (+) see HPI Musculoskeletal: (+) back pain/problems Neurology: (+) loss of balance Psychiatry: (-) negative: no depression or anxiety Physical Exam Nursing note reviewed. Constitutional: General: She is not in acute distress. Appearance: She is not toxic-appearing. Comments: thin HENT: Head: Normocephalic and atraumatic. Right Ear: External ear normal. Left Ear: External ear normal. Nose: Nose normal. Mouth/Throat: Mouth: Mucous membranes are moist. Eyes: Extraocular Movements: Extraocular movements intact. Pulmonary: Effort: Pulmonary effort is normal. No respiratory distress. Abdominal: General: There is no distension. Musculoskeletal: Cervical back: No rigidity. Skin: Coloration: Skin is not pale. Neurological: Motor: Weakness present. Gait: Gait abnormal. Psychiatric: Thought Content: Thought content normal. Impression/Plan: 72 yo female with worsening incontinence, right pelvic kidney, right possible hydronephrosis. 48 minutes spent on patient charting, review of imaging and records and [id number] discussion as well as review of her numerous complaints regarding her health in general, very few of which are related to system. Pathophysiology of pelvic kidney, renal function and GFR measurements are reviewed. I am not convinced of a severe change in the patient's anatomy compared to past imaging in 2018 -will obtain a Lasix renal scan to review differential function and rate of drainage of her right kidney. With a Cr value in the normal range I would doubt clinically significant renal insufficiency as the source of her difficulties. Will see after completion of study to check on rate of renal drainage. Patient is offered a trial of anticholinergics for her irritative urinary and bowel symptoms, accepts. Prescription for low-dose sent to the patient's pharmacy. Patient vocalizes good understanding of the treatment plan. Above content is personally reviewed. Sahil Funk MD 10:36 AM 09/07/2022 documented in this encounter Nursing Notes * ZEKE Case - 09/07/2022 10:41 AM EDT Chief Complaint Patient presents with NEW PATIENT Right Hydronephrosis. Verified patient. No pain, patient is here with her today. documented in this encounter Plan of Treatment Upcoming Encounters Date Type Specialty Care Team Description 09/08/2022 Telemedicine Nephrology Alexa Wray, DO [address] [place] [address] 09/20/2022 Imaging Radiology 10/21/2022 Office Visit Family Medicine Zaira Betancourt CRNP [address] [place] [address] 11/02/2022 Office Visit Gastroenterology Rufina Alvarez CRNP [address] [place] [address] 11/09/2022 Office Visit Urology Sahil Funk MD [address] [place] [address] 03/09/2023 Office Visit Family Medicine Joanie Maurer DO [address] [place] [address] Scheduled Orders Name Type Priority Associated Diagnoses Orde r Schedule NM KIDNEY IMAGING WITH VASCULAR FLOW AND FUNCTION WITH PHARM Medical Imaging Routine Hydronephrosis, right Ordered: 09/07/2022 Scheduled Procedures Name Priority Associated Diagnoses Date/Ti me COLONOSCOPY FLEXIBLE PROXIMAL DIAGNOSTIC Recall History of colon polyps Health Maintenance Due Date Last Done Comments DISCUSS TOBACCO CESSATION (REFER TO SMARTSET #5531) 1950 Hepatitis B (2 of 3 - [...] D LEVEL ONCE IN A LIFETIME-USE SMARTSET# [id number] Completed 08/02/2011, 04/24/2009, 06/25/2008, Additional history exists Mammogram Discontinued 12/18/2014, 11/05, 12/22/2006, Additional history exists Pneumococcal Vaccine: 65+ Years Completed 08/10/2017, 06/14/2016 Alpha-1 Antitrypsin Completed 03/15/2022 LUNG CANCER SCREENING - USE SMARTSET 40330 Completed 06/23/2022, 10/15/2019, 2018, Additional history exists GARDASIL-HPV IMMUNIZATION SERIES Aged Out No longer eligible based on patient's age to complete this topic MENINGOCOCCAL (MENACTRA/MENVEO) Aged Out No longer eligible based on patient's age to complete this topic documented as of this encounter Medical Devices Not on filedocumented as of this encounter Visit Diagnoses Diagnosis Hydronephrosis, right- Primary Hydronephrosis Urge incontinence documented in this encounter Care Teams Desolderer Relationship Specialty Start Date End Date Joanie Maurer DO [address] [place] [address] PCP - General Family Medicine 04/04/19 documented as of this encounter
--- OUTSIDE RECORDS SUMMARY | 2023-02-27 13:03 | External Medical Summary | Summary of Care ---
Author Name Unknown Organization [facility] Address [address] [place] [place] [facility] [place] [address] Phone [phone] Care Team Providers Care Operator Specialist Communications Name Role Phone Hayes Maurer DO Primary Care Provider Reason for Visit * Reason Onset Date Comments Medication Refill 09/08/2022 Encounter Details Date Type Department Care Team Description 09/08/2022 Refill Urology Tiffani Roque [address] [place] [address] Sahil Funk MD [address] [place] [address] Allergies Active Allergy Reactions Severity Noted Date Comments Morphine 03/26/1997 Shock, dyspnea Other reaction(s): shock, dspnea Neomycin 04/07/2013 documented as of this encounter (statuses as of 09/08/2022) Medications Medication Sig Dispensed Refills Start Date [...] as of this encounter (statuses as of 09/08/2022) Active Problems Problem Noted Date COPD, group [...] as of this encounter (statuses as of 09/08/2022) Resolved Problems Problem Noted Date Resolved Date [...] as of this encounter (statuses as of 09/08/2022) Immunizations Name Administration Dates Next Due COVID-19 [...] * Telephone Encounter - CON Ashley - 09/08/2022 9:41 AM EDT Pt calling to request Oxybutynin Chloride ER 5 MG Oral Tablet Extended Release 24 Hour (Ditropan XL)*. Informed pt that RX is available at their pharmacy. Pt verbalized understanding and stated they will check with their pharmacy regarding this medication. Thank you for your assistance Kinza Zaragoza Underground Truck Operator II [facility] ([facility] (Formerly Telepharmacy) 09/08/2022,9:41 AM documented in this encounter Plan of Treatment Upcoming Encounters Date Type Specialty Care Team Description 09/20/2022 Imaging Radiology 10/21/2022 Office Visit Family Medicine Zaira Betancourt CRNP [address] [place] [address] 11/02/2022 Office Visit Gastroenterology Rufina Alvarez CRNP [address] [place] [address] 11/09/2022 Office Visit Urology Sahil Funk MD [address] [place] [address] 03/09/2023 Office Visit Family Medicine Hayes Maurer DO [address] [place] [address] Scheduled Procedures Name Priority Associated Diagnoses Date/Ti [...] D LEVEL ONCE IN A LIFETIME-USE SMARTSET# [id number] Completed 08/02/2011, 04/24/2009, 06/25/2008, Additional history exists Mammogram Discontinued 12/18/2014, 11/05, 12/22/2006, Additional history exists Pneumococcal Vaccine: 65+ Years Completed 08/10/2017, 06/14/2016 Alpha-1 Antitrypsin Completed 03/15/2022 LUNG CANCER SCREENING - USE SMARTSET 43103 Completed 06/23/2022, 10/15/2019, 2018, Additional history exists GARDASIL-HPV IMMUNIZATION SERIES Aged Out No longer eligible based on patient's age to complete this topic MENINGOCOCCAL (MENACTRA/MENVEO) Aged Out No longer eligible based on patient's age to complete this topic documented as of this encounter Medical Devices Not on filedocumented as of this encounter Care Teams Operator Specialist Communications Relationship Specialty Start Date End Date Hayes Maurer DO [address] [place] [address] PCP - General Family Medicine 04/04/19 documented as of this encounter
--- OUTSIDE RECORDS SUMMARY | 2023-02-27 13:03 | External Medical Summary | Summary of Care ---
Author Name Unknown Organization [facility] Address [address] [place] [address] Phone [phone] Care Team Providers Care Bag Machine Operator Helper Name Role Phone Hayes Maurer DO Primary Care Provider Reason for Visit * Reason Onset Date Comments Order Request 09/07/2022 B12 injection Encounter Details Date Type Department Care Team Description 09/07/2022 Telephone Family Practice [facility] [address] [place] [address] Hayes Maurer DO [address] [place] [address] Order Request (B12 injection) Allergies Active Allergy Reactions Severity Noted Date Comments Morphine 03/26/1997 Shock, dyspnea Other reaction(s): shock, dspnea Neomycin 04/07/2013 documented as of this encounter (statuses as of 09/08/2022) Medications Medication Sig Dispensed Refills Start Date End Date Status Levothyroxine Sodium 75 MCG Oral Tablet (Levoxyl)Indications [...] by mouth in the morning. 0 08/22/2022 3 Discontinue d(Refill) Hospital, Clinic, or Other Facility Administered Medication [...] encounter Miscellaneous Notes * Telephone Encounter - Dinah Hill - 09/08/2022 2:41 PM EDT Appt scheduled with patient. * Telephone Encounter - ZEKE Florence - 09/08/2022 2:34 PM EDT Please schedule nurse visit for B12 inj. Order does not until 09/20 * Telephone Encounter - Hayes Maurer DO - 09/08/2022 9:16 AM EDT There is an order in chart from 08/23 that includes 4 injections, one weekly. Is any additional order needed? Would help to clarify this before forwarding. * Telephone Encounter - JADYN Hidalgo - 09/07/2022 6:21 PM EDT Patient calling in to check on the status of previous message. Patient Called within 48 hour timeframe. Reminded patient of 48 hour turn-around time. * Telephone Encounter - JADYN Ace - 09/07/2022 12:26 PM EDT An order was requested for this patient. Name of Requesting Provider: Hayes Maurer Order Requested: B12 injection Diagnosis/Reason for Request: Does the order need to be faxed somewhere? If so, where?: Fax Number, if applicable: Call Back Number: [phone] If the caller is not a current [...] Ancillary Tito, Nurse Juanito Arrington [address] [place] [address] 10/21/2022 Office Visit Family Medicine Zaira Betancourt CRNP [address] [place] [address] 11/02/2022 Office Visit Gastroenterology Rufina Alvarez CRNP [address] [place] [address] 11/09/2022 Office Visit Urology Sahil Funk MD [address] [facility] [address] [place] [id number] 03/09/2023 Office Visit Family Medicine Hayes Maurer DO [address] [place] [address] Scheduled Procedures Name Priority Associated Diagnoses Date/Ti me COLONOSCOPY FLEXIBLE PROXIMAL DIAGNOSTIC Recall History of colon polyps Health Maintenance Due Date Last Done Comments DISCUSS TOBACCO CESSATION (REFER TO SMARTSET #7349) 1950 Hepatitis B (2 of 3 - [...] D LEVEL ONCE IN A LIFETIME-USE SMARTSET# [id number] Completed 08/02/2011, 04/24/2009, 06/25/2008, Additional history exists Mammogram Discontinued 12/18/2014, 11/05, 12/22/2006, Additional history exists Pneumococcal Vaccine: 65+ Years Completed 08/10/2017, 06/14/2016 Alpha-1 Antitrypsin Completed 03/15/2022 LUNG CANCER SCREENING - USE SMARTSET [id number] Completed 06/23/2022, 10/15/2019, 2018, Additional history exists GARDASIL-HPV IMMUNIZATION SERIES Aged Out No longer eligible based on patient's age to complete this topic MENINGOCOCCAL (MENACTRA/MENVEO) Aged Out No longer eligible based on patient's age to complete this topic documented as of this encounter Medical Devices Not on filedocumented as of this encounter Care Teams Bag Machine Operator Helper Relationship Specialty Start Date End Date Hayes Maurer DO [address] [place] [address] PCP - General Family Medicine 04/04/19 documented as of this encounter
--- OUTSIDE RECORDS SUMMARY | 2023-02-27 13:03 | External Medical Summary | Summary of Care ---
Author Name Unknown Organization [facility] Address [address] [place] [address] Phone [phone] Care Team Providers Care Nuclear Process Engineer Name Role Phone Hayes Maurer Primary Care Provider Reason for Visit * Reason Onset Date Comments FYI 08/31/2022 Advice 08/31/2022 Encounter Details Date Type Department Care Team Description 08/31/2022 Telephone [facility] [address] [place] [address] [facility] [address] [place] [id number] FYI; Advice Allergies Active Allergy Reactions Severity Noted Date Comments Morphine 03/26/1997 Shock, dyspnea Other reaction(s): shock, dspnea Neomycin 04/07/2013 documented as of this encounter (statuses as of 08/31/2022) Medications Medication Sig Dispensed Refills Start Date [...] As needed for abd pain. 0 Active Hospital, Clinic, or Other Facility Administered Medication Ordered Dose Route Frequency Start Date End Date Status vitamin b-12 (Cyanocobalamin) inj 1,000 mcgIndications:B12 deficiency 1000 mcg IM QWEEK 08/23/2022 09/20/2022 Active documented as of this encounter (statuses as of 08/31/2022) Active Problems Problem Noted Date COPD, group [...] as of this encounter (statuses as of 08/31/2022) Resolved Problems Problem Noted Date Resolved Date [...] as of this encounter (statuses as of 08/31/2022) Immunizations Name Administration Dates Next Due COVID-19 mRNA, LNP-s, No Pre serve, 2-Dose Series ([place]) 03/04/2021,07/22/2020,07/01/2020 Hepatitis B Vaccine 03/26/1997 Pneumococcal Conjugate [...] Miscellaneous Notes * Telephone Encounter - JADYN Miller - 08/31/2022 10:55 AM EDT Patient scheduled with Dr. Funk on 09/07/22. * Telephone Encounter - Dinah Hill - 08/31/2022 10:21 AM EDT Please assist with scheduling * Telephone Encounter - Hayes Maurer DO - 08/31/2022 9:58 AM EDT Can nephrology work through getting this patient rescheduled since it was their provider who canceled? We have discussed care at length with this patient, her situation is complex and ongoing and difficult to fully understand. Her lack of PO intake due to a list of GERD causing medications seems to have been part of her issue, but unsure why she has hydronephrosis. Needs to see urology and/or nephrology in the next 2 weeks ideally. * Telephone Encounter - Frieda Gonsalves LPN - 08/31/2022 9:17 AM EDT Spoke with patient - she states she has not been feeling well for over a month and has been to the ER and "they don't do anything for me" she states she is "very sick" and needs someone to do something. I suggested she contact her PCP office and/or if she felt it was emergent she could reach out to a local UC or ER. Sending to PCP SHORTY and Dr Kamala ORO * Telephone Encounter - JADYN Garza - 08/31/2022 8:49 AM EDT Called Pt to Reschedule 's appt for today 08/31/22 due to Provider being sick an leaving. Ptstated she is very sick and Call was transferred to Nurse. Was unable to Reschedule Tel/Appt. documented in this encounter Plan of Treatment Upcoming Encounters Date Type Specialty Care Team Description 09/07/2022 Telemedicine Urology Sahil Funk MD [address] [facility] [place] [address] 7, Telemed [facility] Ex Rm [address] [place] [address] 09/08/2022 Telemedicine Nephrology Alexa Wray, DO [address] [place] [address] 10/21/2022 Office Visit Family Medicine Zaira Betancourt CRNP [address] [place] [address] 11/02/2022 Office Visit Gastroenterology Rufina Alvarez CRNP [address] [place] [address] 03/09/2023 Office Visit Family Medicine Hayes Maurer, [address] [place] [address] Scheduled Procedures Name Priority Associated Diagnoses Date/Ti me COLONOSCOPY FLEXIBLE PROXIMAL DIAGNOSTIC Recall History of colon polyps Health Maintenance Due Date Last Done Comments DISCUSS TOBACCO CESSATION (REFER TO SMARTSET #4535) 1950 Hepatitis B (2 of 3 - 19+ 3-dose series) 04/23/1997 03/26/1997 Zoster Vaccines (1 of 2) 01/10/2000 DXA Scan 10/25/2018 10/25/2016 DTaP,Tdap,and Td Vaccines (2 - Td or Tdap) 04/02/2021 04/02/2011 COVID-19 Vaccine (4 - Pfizer series) 04/29/2021 03/04/2021, 07/22/2020, 07/01/2020 *BISPHONATE OR OTHER ACCEPTABLE MEDICATION NEEDED FOR OSTEOPOROSIS (REFER TO SMARTSET #1146) 08/09/2022 Influenza Vaccine (FLU shot) (Season Ended) 2022 COLONOSCOPY-EVERY 5 YRS AGES 18-100 12/26/2022 12/26/2017, 12/26/2017, 05/22/2007 Depression Screening, Annual for Pts 12 and Over 03/15/2023 03/15/2022 TSH 03/15/2023 03/15/2022, 02/05, 10/01/2019, Additional history exists O2 ASSESSMENT COMPLETED IN PAST YEAR FOR COPD 07/20/2023 07/19/2022 Lipid Panel 03/15/2027 03/15/2022, 02/05, 10/01/2019, Additional history exists VITAMIN D LEVEL ONCE IN A LIFETIME-USE SMARTSET# [id number] Completed 08/02/2011, 04/24/2009, 06/25/2008, Additional history exists Mammogram Discontinued 12/18/2014, 11/05, 12/22/2006, Additional history exists Pneumococcal Vaccine: 65+ Years Completed 08/10/2017, 06/14/2016 Alpha-1 Antitrypsin Completed 03/15/2022 LUNG CANCER SCREENING - USE SMARTSET [id number] Completed 06/23/2022, 10/15/2019, 2018, Additional history exists GARDASIL-HPV IMMUNIZATION SERIES Aged Out No longer eligible based on patient's age to complete this topic MENINGOCOCCAL (MENACTRA/MENVEO) Aged Out No longer eligible based on patient's age to complete this topic documented as of this encounter Medical Devices Not on filedocumented as of this encounter Care Teams Nuclear Process Engineer Relationship Specialty Start Date End Date Hayes Maurer DO [address] [place] [address] PCP - General Family Medicine 04/04/19 documented as of this encounter
--- OUTSIDE RECORDS SUMMARY | 2023-02-27 13:03 | External Medical Summary | Summary of Care ---
Author Name Unknown Organization [facility] Address [address] [place] [address] Phone [phone] Care Team Providers Care Barrel Maker Name Role Phone Joanie Maurer Primary Care Provider Encounter Details Date Type Department Care Team Description 09/07/2022 Refill Urology, [facility] [address] [facility] [place] [address] Services, Scheduling [address] [place] [address] Allergies Active Allergy Reactions Severity Noted Date [...] the morning. 90 Tablet 3 09/08/2022 Active Metoprolol Succinate ER 25 MG Oral [...] encounter Miscellaneous Notes * Telephone Encounter - Joanie Maurer DO - 09/08/2022 8:59 AM EDTSigned Prescriptions: Disp Refills Metoprolol Succinate ER 25 MG Oral Tablet *90 Tab*3 Sig: Take 0.5 Tablets by mouth in the morning. Authorizing Provider: JOANIE MAURER * Telephone Encounter - Preethi Murphy LPN - 09/07/2022 2:43 PM EDT Spoke with pt, aware that this needs to be addressed by primary care provider, asked that we send message to them for metoprolol refill. Thank you, Preethi Murphy LPN * Telephone Encounter - Sahil Funk MD - 09/07/2022 2:32 PM EDT No, her metoprolol was not addressed. Would contact prescribing physician. Thanks, HM * Telephone Encounter - Citlalli Land LPN - 09/07/2022 12:47 PM EDT I know this is a cardiac medication and not prescribed by Urology but just wanted to see if you mentioned it at all during your telmed visit with patient today? * Telephone Encounter - JADYN Jaffe - 09/07/2022 12:37 PM EDT Patient called inquiring about a refill on her prescription for Metoprolol Succinate ER 25 MG. Was told to continue this by Dr Funk but her pharmacy has not received new prescription. 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 Would like a call back to confirm when this has been sent to pharmacy. [phone] [id number] [facility] documented in this encounter Plan of Treatment Upcoming Encounters Date Type Specialty Care Team Description 09/20/2022 Imaging Radiology 10/21/2022 Office Visit Family Medicine Zaira Betancourt CRNP [address] [place] [address] 11/02/2022 Office Visit Gastroenterology Rufina Alvarez CRNP [address] [place] [address] 11/09/2022 Office Visit Urology Sahil Funk MD [address] [place] [address] 03/09/2023 Office Visit Family Medicine Joanie Maurer, [address] [place] [address] Scheduled Procedures Name Priority Associated Diagnoses Date/Ti me COLONOSCOPY FLEXIBLE PROXIMAL DIAGNOSTIC Recall History of colon polyps Health Maintenance Due Date Last Done Comments DISCUSS TOBACCO CESSATION (REFER TO SMARTSET #4301) 1950 Hepatitis B (2 of 3 - [...] D LEVEL ONCE IN A LIFETIME-USE SMARTSET# 63649 Completed 08/02/2011, 04/24/2009, 06/25/2008, Additional history exists Mammogram Discontinued 12/18/2014, 11/05, 12/22/2006, Additional history exists Pneumococcal Vaccine: 65+ Years Completed 08/10/2017, 06/14/2016 Alpha-1 Antitrypsin Completed 03/15/2022 LUNG CANCER SCREENING - USE SMARTSET 90943 Completed 06/23/2022, 10/15/2019, 2018, Additional history exists GARDASIL-HPV IMMUNIZATION SERIES Aged Out No longer eligible based on patient's age to complete this topic MENINGOCOCCAL (MENACTRA/MENVEO) Aged Out No longer eligible based on patient's age to complete this topic documented as of this encounter Medical Devices Not on filedocumented as of this encounter Care Teams Barrel Maker Relationship Specialty Start Date End Date Joanie Maurer DO [address] [place] [address] PCP - General Family Medicine 04/04/19 documented as of this encounter
--- OUTSIDE RECORDS SUMMARY | 2023-02-27 13:03 | External Medical Summary | Summary of Care ---
Author Name Unknown Organization [facility] Address [address] [place] [address] Phone [phone] Care Team Providers Care Coating And Baking Operator Name Role Phone Hayes Maurer DO Primary Care Provider Reason for Visit * Reason Onset Date Comments Medication Refill 09/08/2022 Encounter Details Date Type Department Care Team Description 09/07/2022 Refill Family Practice [facility] [address] [place] [address] Hayes Maurer DO [address] [place] [address] Allergies Active Allergy Reactions Severity Noted Date [...] Chest pain 2007 03/14/2008 Pulmonary hypertension 12/08/2006 11/06/200 7 FAM HX-DIABETES MELLITUS 04/13/2000 009 Perimenopause [...] encounter Miscellaneous Notes * Telephone Encounter - Ingrid Omalley LPN - 09/08/2022 8:18 AM EDTPending Prescriptions: Disp Refills Metoprolol Succinate ER 25 MG Oral Tablet *30 Tab*5 Sig: Take 0.5 Tablets by mouth in the morning. * Telephone Encounter - Ingrid Omalley LPN - 09/08/2022 8:18 AM EDT Did you pend patient's preferred pharmacy and medication before forwarding?yes Pharmacy: [id number] [address] [facility] Pending Prescriptions: Disp Refills Metoprolol Succinate ER 25 MG Oral Tablet*30 Tab*5 Sig: Take 0.5 Tablets by mouth in the morning. Last Visit: 08/25/2022 (in office), Visit date not found (telemedicine) Next Visit: 10/21/2022 If no future appointments scheduled, and last appointment is greater than a year ago, please schedule patient for a follow-up appointment Last date the medication was ordered: 08/22/2022 Is this request for a controlled substance?No Urine Drug Screen:No results found for this or any previous visit. Patient Phone Numbers Labs: Lab Results Component Value Date/Time CREAT 0.7 07/28/2022 02:27 PM CREAT 0.64 07/05/2022 12:00 AM CREAT 0.8 10/01/2019 04:08 PM POTASSIUM 3.5 07/28/2022 02:27 PM POTASSIUM 4.7 07/05/2022 12:00 AM POTASSIUM 4.1 10/01/2019 04:08 PM TSH 3.50 03/15/2022 04:30 PM TSH 1.31 10/01/2019 04:08 PM TSH 3.95 06/11/1996 04:37 PM LDLCALC 92 03/15/2022 04:30 PM LDLCALC 84 10/01/2019 04:08 PM LDLDIRECT NOT APPLICABLE 10/01/2019 04:08 PM LDLDIRECT 102 12/18/2014 03:21 PM ALT 10 07/15/2022 03:18 PM ALT 16 10/01/2019 04:08 PM HGBA1C 5.6 03/15/2022 04:30 PM HGBA1C 5.7 (H) 10/01/2019 04:08 PM * Telephone Encounter - Anthony Kaur V, ball mill mixer - 09/07/2022 6:46 PM EDT Pt calling requesting the following medication below that is listed as "Historical". The following information was provided: Medication Name: Metoprolol Succinate Strength: 25mg Directions: QD Preferred Quantity: 90 Previous Prescriber: Hayes Maurer DO Preferred Pharmacy: [id number] Please review and approve if appropriate. Thanks, Anthony Kaur, [employer] Rn [facility] ([facility]) (formerly [facility]). 09/07/2022,6:48 PM documented in this encounter Plan of Treatment Upcoming Encounters Date Type Specialty Care Team Description 09/20/2022 Imaging Radiology 09/20/2022 Immunization/Injection Ancillary Tito, Nurse Juanito Arrington [address] [place] [address] 10/21/2022 Office Visit Family Medicine Zaria Betancourt CRNP [address] [place] [address] 11/02/2022 Office Visit Gastroenterology Rufina Alvarez CRNP [address] [place] [address] 11/09/2022 Office Visit Urology Sahil Funk MD [address] [place] [address] 03/09/2023 Office Visit Family Medicine Hayes Maurer DO [address] [place] [address] Scheduled Procedures Name Priority Associated Diagnoses Date/Ti [...] D LEVEL ONCE IN A LIFETIME-USE SMARTSET# [id number] Completed 08/02/2011, 04/24/2009, 06/25/2008, Additional history exists Mammogram Discontinued 12/18/2014, 11/05, 12/22/2006, Additional history exists Pneumococcal Vaccine: 65+ Years Completed 08/10/2017, 06/14/2016 Alpha-1 Antitrypsin Completed 03/15/2022 LUNG CANCER SCREENING - USE SMARTSET 91033 Completed 06/23/2022, 10/15/2019, 2018, Additional history exists GARDASIL-HPV IMMUNIZATION SERIES Aged Out No longer eligible based on patient's age to complete this topic MENINGOCOCCAL (MENACTRA/MENVEO) Aged Out No longer eligible based on patient's age to complete this topic documented as of this encounter Medical Devices Not on filedocumented as of this encounter Care Teams Coating And Baking Operator Relationship Specialty Start Date End Date Hayes Maurer DO [address] [place] [address] PCP - General Family Medicine 04/04/19 documented as of this encounter
--- OUTSIDE RECORDS SUMMARY | 2023-02-27 13:03 | External Medical Summary | Summary of Care ---
Author Name Unknown Organization [facility] Address [address] [place] [address] Phone [phone] Care Team Providers Care Hotel Registration Clerk Name Role Phone Hayes Maurer DO Primary Care Provider Reason for Visit * Reason Onset Date Comments Medication Refill 09/08/2022 Encounter Details Date Type Department Care Team Description 09/07/2022 Refill Family Practice [facility] [address] [place] [address] Hayes Maurer DO [address] [place] [address] Allergies Active Allergy Reactions Severity Noted Date [...] and medication before forwarding?yes [facility]acy: [id number] [address] [facility] Pending Prescriptions: Disp Refills Metoprolol Succinate ER [...] * Telephone Encounter - Anthony Kaur V, acid pumper - 09/07/2022 6:46 PM EDT Pt calling requesting the following medication below that is listed as "Historical". The following information was provided: Medication Name: Metoprolol Succinate Strength: 25mg Directions: QD Preferred Quantity: 90 Previous Prescriber: Hayes Maurer DO Preferred Pharmacy: E [facility] [id number] Please review and approve if appropriate. Thanks, Anthony Kaur, [employer] Coin Purse Assembler [facility] ([facility]) (formerly [email or web address]). 09/07/2022,6:48 PM documented in this encounter Plan of Treatment Upcoming Encounters Date Type Specialty Care Team Description 09/20/2022 Imaging Radiology 09/20/2022 Immunization/Injection Ancillary Tito, Nurse Juanito Arrington [address] [place] [address] 10/21/2022 Office Visit Family Medicine Zaira Betancourt CRNP [address] [place] [address] 11/02/2022 Office Visit Gastroenterology Rufina Alvarez CRNP [address] [place] [address] 11/09/2022 Office Visit Urology Sahil Funk MD [address] [place] [address] 03/09/2023 Office Visit Family Medicine Hayes Maurer DO [address] [place] [address] Scheduled Procedures Name Priority Associated Diagnoses Date/Ti [...] D LEVEL ONCE IN A LIFETIME-USE SMARTSET# [id number] Completed 08/02/2011, 04/24/2009, 06/25/2008, Additional history exists Mammogram Discontinued 12/18/2014, 11/05, 12/22/2006, Additional history exists Pneumococcal Vaccine: 65+ Years Completed 08/10/2017, 06/14/2016 Alpha-1 Antitrypsin Completed 03/15/2022 LUNG CANCER SCREENING - USE SMARTSET 72404 Completed 06/23/2022, 10/15/2019, 2018, Additional history exists GARDASIL-HPV IMMUNIZATION SERIES Aged Out No longer eligible based on patient's age to complete this topic MENINGOCOCCAL (MENACTRA/MENVEO) Aged Out No longer eligible based on patient's age to complete this topic documented as of this encounter Medical Devices Not on filedocumented as of this encounter Care Teams Hotel Registration Clerk Relationship Specialty Start Date End Date Hayes Maurer DO [address] [place] [address] PCP - General Family Medicine 04/04/19 documented as of this encounter
--- OUTSIDE RECORDS SUMMARY | 2023-02-27 13:03 | External Medical Summary | Summary of Care ---
Author Name Unknown Organization [facility] Address [address] [place] [address] Phone [phone] Care Team Providers Care Charge Lpn Name Role Phone Hayes Maurer DO Primary Care Provider Encounter Details Date Type Department Care Team Description 09/07/2022 Telephone Urology, [facility] [address] [place] [address] Sahil Funk MD [address] [facility] [address] [facility] [place] [address] Allergies Active Allergy Reactions Severity Noted Date Comments Morphine 03/26/1997 Shock, dyspnea Other reaction(s): shock, dspnea Neomycin 04/07/2013 documented as of this encounter (statuses as of 09/07/2022) Medications Medication Sig Dispensed Refills Start Date End Date Status Levothyroxine Sodium 75 MCG Oral Tablet (Levoxyl)Indication s:Acquired hypothyroidism TAKE 1 TABLET BY MOUTH EVERY [...] mouth in the morning. 0 08/22/2022 Active Oxybutynin Chloride ER 5 MG Oral Tablet Extended Release 24 Hour (Ditropan XL) Take 1 Tablet by mouth in the morning. 30 Tablet 6 09/07/2022 Active Solifenacin Succinate 5 MG Oral Tablet (VESIcare) Take 1 Tablet by mouth in the morning. 30 Tablet 6 09/07/2022 09/08/19 23 Discontinued Hospital, Clinic, or Other Facility Administered Medication [...] Encounter - Preethi Murphy LPN - 09/07/2022 2:45 PM EDT Spoke with patient, aware of medication. * Telephone Encounter - Sahil Funk MD - 09/07/2022 12:32 PM EDT Oxybutynin substituted for solifenacin. Thanks, * Telephone Encounter - Preethi Murphy LPN - 09/07/2022 12:15 PM EDT Spoke with patient. Solifenacin not covered by insurance. Is there another medication you recommend? Patient states she is unable to take large pills, needs to be something small. Thank you Christine Ph. [phone] documented in this encounter Plan of Treatment Upcoming Encounters Date Type Specialty Care Team Description 09/08/2022 Telemedicine Nephrology Alexa Wray, DO [address] [facility] [place] [address] 09/20/2022 Imaging Radiology 10/21/2022 Office Visit Family Medicine Zaira Betancourt CRNP [address] [place] [address] 11/02/2022 Office Visit Gastroenterology Rufina Alvarez CRNP [address] [place] [address] 11/09/2022 Office Visit Urology Sahil Funk MD [address] [place] [address] 03/09/2023 Office Visit Family Medicine Hayes Maurer DO [address] [place] [address] Scheduled Procedures Name Priority Associated Diagnoses Date/Ti me COLONOSCOPY FLEXIBLE PROXIMAL DIAGNOSTIC Recall History of colon polyps Health Maintenance Due Date Last Done Comments DISCUSS TOBACCO CESSATION (REFER TO SMARTSET #6461) 1950 Hepatitis B (2 of 3 - [...] D LEVEL ONCE IN A LIFETIME-USE SMARTSET# [id number] Completed 08/02/2011, 04/24/2009, 06/25/2008, Additional history exists Mammogram Discontinued 12/18/2014, 11/05, 12/22/2006, Additional history exists Pneumococcal Vaccine: 65+ Years Completed 08/10/2017, 06/14/2016 Alpha-1 Antitrypsin Completed 03/15/2022 LUNG CANCER SCREENING - USE SMARTSET 31890 Completed 06/23/2022, 10/15/2019, 2018, Additional history exists GARDASIL-HPV IMMUNIZATION SERIES Aged Out No longer eligible based on patient's age to complete this topic MENINGOCOCCAL (MENACTRA/MENVEO) Aged Out No longer eligible based on patient's age to complete this topic documented as of this encounter Medical Devices Not on filedocumented as of this encounter Care Teams Charge Lpn Relationship Specialty Start Date End Date Hayes Maurer DO [address] [place] [address] PCP - General Family Medicine 04/04/19 documented as of this encounter
--- OUTSIDE RECORDS SUMMARY | 2023-02-27 13:03 | External Medical Summary | Summary of Care ---
Author Name Unknown Organization [facility] Address [address] [place] [address] Phone [phone] Care Team Providers Care Painter Supervisor Name Role Phone Hayes Maurer DO Primary Care Provider Reason for Visit * Reason Onset Date Comments Order Request 09/07/2022 B12 injection Encounter Details Date Type Department Care Team Description 09/07/[address] [facility] [address] [place] [address] Hayes Maurer DO [address] [place] [address] Order Request (B12 injection) Allergies Active Allergy [...] Fax Number, if applicable: Call Back Number: [phone] If the caller is not a current [...] Nurse Juanito Arrington [address] [place] [address] 10/21/2022 Office Visit Family Medicine Zaira Betancourt CRNP [address] [place] [address] 11/02/2022 Office Visit Gastroenterology Rufina Alvarez CRNP [address] [place] [address] 11/09/2022 Office Visit Urology Sahil Funk MD [address] [facility] [address] [place] [id number] 03/09/2023 Office Visit Family Medicine Hayes Maurer DO [address] [place] [address] Scheduled Procedures Name Priority Associated Diagnoses Date/Ti me COLONOSCOPY FLEXIBLE PROXIMAL DIAGNOSTIC Recall History of colon polyps Health Maintenance Due Date Last Done Comments DISCUSS TOBACCO CESSATION (REFER TO SMARTSET #9203) 1950 Hepatitis B (2 of 3 - [...] D LEVEL ONCE IN A LIFETIME-USE SMARTSET# 68454 Completed 08/02/2011, 04/24/2009, 06/25/2008, Additional history exists Mammogram Discontinued 12/18/2014, 11/05, 12/22/2006, Additional history exists Pneumococcal Vaccine: 65+ Years Completed 08/10/2017, 06/14/2016 Alpha-1 Antitrypsin Completed 03/15/2022 LUNG CANCER SCREENING - USE SMARTSET 68606 Completed 06/23/2022, 10/15/2019, 2018, Additional history exists GARDASIL-HPV IMMUNIZATION SERIES Aged Out No longer eligible based on patient's age to complete this topic MENINGOCOCCAL (MENACTRA/MENVEO) Aged Out No longer eligible based on patient's age to complete this topic documented as of this encounter Medical Devices Not on filedocumented as of this encounter Care Teams Painter Supervisor Relationship Specialty Start Date End Date Hayes Maurer DO [address] [place] [address] PCP - General Family Medicine 04/04/19 documented as of this encounter
--- NOTE | 2023-02-27 13:37 | XRay Report ---
XR pelvis 1-2V routine CLINICAL HISTORY: pain TECHNIQUE: A single frontal view of the pelvis was obtained. Comparison: Comparison is made to left hip radiograph 10/27/2022 FINDINGS: Left femoral maximus is seen. Degenerative changes are seen in the hip joints and lumbar spine. No soft t issue abnormality is seen. IMPRESSION: Degenerative changes without evidence of acute abnormality. ACT 112: Negative or not required by law. Electronically signed by: Trent Woodruff M.D. 02/27/2023 1:36 PM
--- NOTE | 2023-02-27 13:43 | XRay Report ---
XR shoulder RT min 2V routine CLINICAL HISTORY: deformity TECHNIQUE: 3 views of the right shoulder were obtained. Comparison: None available at the time of this dictation. FINDINGS: There is an acute fracture of the humeral neck with prominent displacement of fracture fragments. Araceli nt spaces are well-preserved. Soft tissue swelling is seen about the shoulder. The visualized portion s of the lungs are clear. IMPRESSION: Acute fracture of the humeral ACT 112: Negative or not required by law. Electronically signed by: Trent Woodruff M.D. 02/27/2023 1:41 PM
--- NOTE | 2023-02-27 13:43 | XRay Report ---
XR elbow RT 2V CLINICAL HISTORY: BRUISING TECHNIQUE: 2 views of the right elbow were obtained. Comparison: None available at the time of this dictation. FINDINGS: There is no evidence of an acute fracture. Joint spaces are well-preserved. The alignment is anatomic . There is no prominence of the anterior or posterior fat pads to suggest an effusion. No soft tissue abnormality is seen. IMPRESSION: No evidence of acute fracture or dislocation. ACT 112: Negative or not required by law. Electronically signed by: Trent Woodruff M.D. 02/27/2023 1:42 PM
[2023-02-27 14:14] LABS: iSTAT Creatinine 1.5 mg/dl (0.6-1.3); iSTAT Hemoglobin 6.1 g/dl (12.0-16.0); iSTAT Ionized Calcium 0.95 mmol/l (1.12-1.32); iSTAT Potassium 3.7 mmol/L (3.3-5.0)
[2023-02-27 14:15] LABS: Calcium 7.3 mg/dl (8.6-10.3); Est GFR (African American) 40.3 ml/min; Est GFR (Non-African American) 34.8 ml/min; Potassium 3.8 mmol/L (3.5-5.1)
--- NOTE | 2023-02-27 14:21 | Emergency Department Note ---
Impression & Plan Sepsis, Fracture of humeral head, right, closed ED Provider Note NAME: KARISSA KATZ AGE: 73 SEX: F : 1950 ARRIVES VIA: Ambulance INFORMANT: Patient, ED PROVIDER(S): Irasema Rodriguez MD CHIEF COMPLAINT: Fall, hypoglycemia, unresponsive HPI: This is a 73-year-old female with history of carcinoma on chemotherapy presenting for fall and unresponsiveness. Reported the patient had fallen multiple times over the past 2 days. Patient was actually seen by EMS yesterday and she refused transport. Otherwise she was found unresponsive today, EMS said her initial glucose was in the 30s/40s. Was given amp of dextrose with improvement into the 200s now. Patient has an obvious right shoulder deformity. Otherwise patient is moaning in pain, unable to significantly provide history at this time. Upon cursory review of her medication list transient blood thinner. Unclear head trauma. She is hypotensive at this time. ROS: See above HPI for pertinent positives & negatives. A total of 10 systems reviewed and were otherwise negative. PAST MEDICAL HISTORY: See Below PAST SURGICAL HISTORY: See Below FAMILY HISTORY: See Below SOCIAL HISTORY: See Below HOME MEDICATIONS: See Below ALLERGIES: See Below VITALS: See Below PHYSICAL EXAMINATION: General: Cachectic, chronically ill-appearing, acutely ill Head: Normocephalic and atraumatic Eyes: Normal inspection, extraocular muscles intact Ear, nose, throat: Normal external exam Neck: Normal range of motion Respiratory: lungs clear to auscultation bilaterally Cardiovascular: Regular rate/rhythm, no murmur GI: soft, nontender, no guarding or rebound Extremities: Large right shoulder/arm ecchymosis, deformity Neuro: The patient awake and alert, appropriately conversive, no focal deficits, symmetric faces Skin: Cool, dry MEDICAL DECISION MAKING: This is a 73-year-old female with history of carcinoma on chemotherapy senting for fall and unresponsiveness. Patient was hypoglycemic, see no significant insulin medication list. No blood thinners noted. At this time patient is considered sepsis, will give 30 cc/kg bolus. Will assess with CT of the head, chest and pelvis. -Patient is critically ill at this time -Consider sepsis with patient's current hypotension, hypothermia, altered mental status -Patient has an obvious humeral fracture -X-ray of the humerus, as interpreted by me, reveals a humeral fracture with significant displacement -Will place patient in sling at this time -Neurovascular intact distally -Patient given 2 L normal saline with moderate improvement in blood pressure however still not adequately perfusing -Will start Levophed at this time for maps below 65 -Broad-spectrum antibiotics given despite no clear source at this time -Lab work returns extremely abnormal with leukocytosis to 57, hemoglobin of 6.5 -Creatinine is elevated at 1.5 -Urinalysis is positive for UTI at this time, consider urosepsis as patient's source at this time -Chest CT also reveals possible opacity concerning for infectious process -CT of the head reveals no traumatic injury -CT of the chest on pelvis revealed no traumatic injury or other process responsible patient's current sepsis -Patient current Levophed support, has had 2+ liters of resuscitation, blood culture sent, will admit to ICU at this time for urosepsis versus sepsis shock from pneumonia -Blood consent signed by as patient is currently too altered to consent Differential diagnosis: Sepsis, hypoglycemia, stroke, hemorrhage ER treatment provided: See below Diagnostics interpreted by me: ECG: ECG independently interpreted by me with sinus bradycardia, rate of 56, normal MT, normal QRS, normal QTc, no ST segment elevations consistent with STEMI criteria, poor quality baseline difficult to interpret Cardiac Monitoring: An order was placed for continuous cardiac monitoring. The monitor shows a rate of 65 with sinus rhythm. Laboratory studies: As stated above and show below. Imaging studies: See below. Critical Care Note: I have personally spent 70 minutes of critical care time in the direct management of this patient. This includes bedside care, interpretation of diagnostic studies, and testing, discussion with consultants, patient, and family members, and other required patient management activities. This 70 minutes is in excess of all separately billable procedures. Past Med/Surg History Medical History (Updated 02/27/23 @ 19:57 by Irasema Rodriguez MD) On antineoplastic chemotherapy Recurrent falls Osteoporosis Small cell lung cancer in adult Pulmonary hypertension Postsurgical hypothyroidism Reflux esophagitis PSVT (paroxysmal supraventricular tachycardia) COPD (chronic obstructive pulmonary disease) Vitamin D deficiency Surgical History Hx of lumbosacral spine surgery x3 Hx of thyroidectomy Hx of colonoscopy Family History Other Breast cancer Social History Smoking Status: Former smoker Tobacco Type: Cigarettes Cigarettes Per Day: 1 pack a week; Smoking End Date: 4 months ago; Second Hand Exposure: Yes; Do You Dip or Chew Tobacco: No; Hx Alcohol Use: No Hx Substance Use: No Preferred Language: [place]an Communication Ability: Effective 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 Beliefs That Will Affect Care: None Current Living Situation: Spouse Current Living Situation Comment: home Feels Safe at Home: Yes Assistive Devices: Glasses Allergies Allergies Allergy/AdvReac Type Severity Reaction Status Date / Time adhesive tape Allergy Unknown Redness of Verified 10/24/22 16:26 Skin morphine Allergy Unknown shock, Verified 10/17/22 08:28 dspnea neomycin Allergy Unknown Unknown Verified 10/24/22 16:26 Home Meds Home Medications Medication Instructions Recorded Confirmed oxybutynin chloride 5 mg 5 mg PO QAM 09/25/22 02/27/23 tablet,extended release 24 hr furosemide 20 mg tablet 20 mg PO BID 02/27/23 02/27/23 Previous Rx's Medication Instructions Recorded metoprolol succinate 25 mg 12.5 mg (1/2 x 25 mg) PO DAILY #15 08/22/22 tablet,extended release 24 hr tabs levothyroxine 100 mcg tablet 100 mcg PO DAILY #30 tabs 10/20/22 (Synthroid) potassium chloride 10 mEq 10 meq PO DAILY #30 caps 11/02/22 capsule,extended release umeclidinium 62.5 mcg-vilanterol 1 ea inhalation DAILY #60 ea 11/02/22 25 mcg/actuation powdr for inhalation (Anoro Ellipta) Results & Data (ED) Vital Signs Vital Signs - 24 hr 02/27/23 12:34 02/27/23 13:02 02/27/23 13:04 Temperature Pulse Rate 58 L 58 L 57 L Pulse Rate from SpO2 Sensor 56 L Respiratory Rate 17 18 Blood Pressure 89/51 L Blood Pressure Mean 63 Pulse Oximetry 100 100 Oxygen Delivery Method Room Air Sepsis Recent Fever Within 48 Hours No Sepsis New/Unexplained Change in Mental Status Yes Sepsis Action Taken by Nursing Physician Notified 02/27/23 13:04 02/27/23 13:04 02/27/23 13:15 Temperature Pulse Rate 54 L 58 L Pulse Rate from SpO2 Sensor 53 L 49 L Respiratory Rate 18 21 Blood Pressure 82/55 L Blood Pressure Mean 61 Pulse Oximetry 100 100 Oxygen Delivery Method Sepsis Recent Fever Within 48 Hours Sepsis New/Unexplained Change in Mental Status Sepsis Action Taken by Nursing 02/27/23 13:19 02/27/23 13:19 02/27/23 13:30 Temperature Pulse Rate 60 67 Pulse Rate from SpO2 Sensor 59 L Respiratory Rate 16 18 Blood Pressure 96/49 L Blood Pressure Mean 68 Pulse Oximetry 100 97 Oxygen Delivery Method Sepsis Recent Fever Within 48 Hours Sepsis New/Unexplained Change in Mental Status Sepsis Action Taken by Nursing 02/27/23 13:36 02/27/23 13:36 02/27/23 13:45 Temperature Pulse Rate 57 L 57 L Pulse Rate from SpO2 Sensor 51 L 56 L Respiratory Rate 21 22 Blood Pressure 100/53 L Blood Pressure Mean 69 Pulse Oximetry 91 100 Oxygen Delivery Method Sepsis Recent Fever Within 48 Hours Sepsis New/Unexplained Change in Mental Status Sepsis Action Taken by Nursing 02/27/23 14:00 02/27/23 14:00 02/27/23 14:35 Temperature Pulse Rate 54 L 75 Pulse Rate from SpO2 Sensor 58 L 53 L Respiratory Rate 18 22 Blood Pressure 98/62 L Blood Pressure Mean 74 Pulse Oximetry 100 90 Oxygen Delivery Method Sepsis Recent Fever Within 48 Hours Sepsis New/Unexplained Change in Mental Status Sepsis Action Taken by Nursing 02/27/23 14:45 02/27/23 14:51 02/27/23 14:51 Temperature Pulse Rate 53 L 52 L Pulse Rate from SpO2 Sensor 51 L 53 L Respiratory Rate 17 13 Blood Pressure 81/40 L Blood Pressure Mean 55 Pulse Oximetry 100 100 Oxygen Delivery Method Sepsis Recent Fever Within 48 Hours Sepsis New/Unexplained Change in Mental Status Sepsis Action Taken by Nursing 02/27/23 15:00 02/27/23 15:01 02/27/23 15:01 Temperature Pulse Rate 61 69 Pulse Rate from SpO2 Sensor 55 L 58 L Respiratory Rate 20 25 H Blood Pressure 99/55 L Blood Pressure Mean 74 Pulse Oximetry 98 100 Oxygen Delivery Method Sepsis Recent Fever Within 48 Hours Sepsis New/Unexplained Change in Mental Status Sepsis Action Taken by Nursing 02/27/23 15:15 02/27/23 15:15 02/27/23 15:30 Temperature 30.7 C L 31.0 C L Pulse Rate 63 64 Pulse Rate from SpO2 Sensor 56 L Respiratory Rate 14 18 Blood Pressure 98/71 L Blood Pressure Mean 84 Pulse Oximetry 100 Oxygen Delivery Method Sepsis Recent Fever Within 48 Hours Sepsis New/Unexplained Change in Mental Status Sepsis Action Taken by Nursing 02/27/23 15:30 02/27/23 15:45 02/27/23 15:47 Temperature 31.0 C L 31.0 C L Pulse Rate 59 L 72 Pulse Rate from SpO2 Sensor 57 L Respiratory Rate 14 26 H Blood Pressure 106/71 Blood Pressure Mean 79 Pulse Oximetry 97 97 Oxygen Delivery Method Sepsis Recent Fever Within 48 Hours Sepsis New/Unexplained Change in Mental Status Sepsis Action Taken by Nursing 02/27/23 15:47 02/27/23 16:00 02/27/23 16:00 Temperature 31.2 C L Pulse Rate 60 Pulse Rate from SpO2 Sensor Respiratory Rate 20 Blood Pressure 99/53 L 90/59 L Blood Pressure Mean 75 62 Pulse Oximetry 100 Oxygen Delivery Method Sepsis Recent Fever Within 48 Hours Sepsis New/Unexplained Change in Mental Status Sepsis Action Taken by Nursing 02/27/23 16:06 02/27/23 16:06 02/27/23 16:14 Temperature 31.2 C L Pulse Rate 53 L Pulse Rate from SpO2 Sensor 49 L Respiratory Rate 14 Blood Pressure 88/52 L 101/60 Blood Pressure Mean 68 66 Pulse Oximetry 100 Oxygen Delivery Method Sepsis Recent Fever Within 48 Hours Sepsis New/Unexplained Change in Mental Status Sepsis Action Taken by Nursing 02/27/23 16:14 02/27/23 16:15 02/27/23 16:19 Temperature 31.3 C L 31.3 C L 31.5 C L Pulse Rate 132 H 56 L Pulse Rate from SpO2 Sensor 52 L 58 L 52 L Respiratory Rate 35 H 15 Blood Pressure Blood Pressure Mean Pulse Oximetry 100 93 100 Oxygen Delivery Method Sepsis Recent Fever Within 48 Hours Sepsis New/Unexplained Change in Mental Status Sepsis Action Taken by Nursing 02/27/23 16:19 02/27/23 16:20 02/27/23 16:20 Temperature 31.4 C L Pulse Rate 54 L Pulse Rate from SpO2 Sensor 53 L Respiratory Rate 15 Blood Pressure 108/66 103/70 Blood Pressure Mean 71 75 Pulse Oximetry 100 Oxygen Delivery Method Sepsis Recent Fever Within 48 Hours Sepsis New/Unexplained Change in Mental Status Sepsis Action Taken by Nursing 02/27/23 16:30 02/27/23 16:31 02/27/23 16:31 Temperature 31.5 C L 31.7 C L Pulse Rate 66 67 Pulse Rate from SpO2 Sensor Respiratory Rate 19 19 Blood Pressure 121/84 Blood Pressure Mean 92 Pulse Oximetry 82 L 95 Oxygen Delivery Method Sepsis Recent Fever Within 48 Hours Sepsis New/Unexplained Change in Mental Status Sepsis Action Taken by Nursing 02/27/23 16:40 02/27/23 16:40 Temperature 31.6 C L Pulse Rate 57 L Pulse Rate from SpO2 Sensor 54 L Respiratory Rate 13 Blood Pressure 112/74 Blood Pressure Mean 82 Pulse Oximetry 100 Oxygen Delivery Method Sepsis Recent Fever Within 48 Hours Sepsis New/Unexplained Change in Mental Status Sepsis Action Taken by Nursing Laboratory Data 02/27/23 13:48 02/27/23 13:48 Lab Results 02/27/23 02/27/23 02/27/23 Range/Units 12:48 13:48 13:55 WBC 57.42 H* (4.8-10.8) K/ul RBC 2.20 L (4.20-5.40) M/uL Hgb 6.5 L* (12.0-16.0) g/dl POC Hgb 6.1 L* (12.0-16.0) g/dl Hct 19.7 L* (37.0-47.0) % POC Hct 18 L* (37-47) % MCV 89.5 (80.0-100.0) fL MCH 29.5 (25.0-34.0) pg MCHC 33.0 (32.0-36.0) g/dL RDW Std Deviation 47.5 H (36.4-46.3) fL RDW Coeff of Minal 14.8 H (11.5-14.5) % Plt Count 127 L (130-400) K/uL MPV 10.7 (9.4-12.4) fL Neutrophils % (Manual) 99 % Monocytes % (Manual) 1 % Neutrophils # (Manual) 56.85 H (1.40-6.50) K/uL Total Absolute Neuts 56.85 H (1.4-6.5) K/uL Monocytes # (Manual) 0.57 (0.11-0.59) K/uL Polychromasia 1+ Basophilic Stippling 1+ Echinocytes 1+ POC Sodium 137 (135-144) mmol/L Sodium 139 (136-145) mmol/L POC Potassium 3.7 (3.3-5.0) mmol/L Potassium 3.8 (3.5-5.1) mmol/L POC Chloride 106 (101-112) mmol/L Chloride 106 (98-107) mmol/L Carbon Dioxide 17 L (21-32) mmol/L POC Total CO2 16 L (24-31) mmol/L Anion Gap 16 H (3-11) POC Anion Gap 20.0 (16-25) mmol/L POC BUN 77 H (7-18) mg/dl BUN 74 H (6-23) mg/dl Creatinine 1.48 H (0.6-1.2) mg/dl POC Creatinine 1.5 H (0.6-1.3) mg/dl Est Cr Clr Drug Dosing 23.0 ml/min Est GFR ( Amer) 40.3 ml/min Est GFR (Non-Af Amer) 34.8 ml/min BUN/Creatinine Ratio 50.0 H (10-20) Glucose 216 H (70-99(Fasting)) mg/dl POC Glucose 288 H (70-99) mg/dl POC Glucose (other) 218 H (70-99) mg/dl Osmolality (280-300) mOsm/kg Lactate (0.4-2.0) mmol/L Calcium 7.3 L (8.6-10.3) mg/dl POC Ioniz Calcium Loki 0.95 L (1.12-1.32) mmol/l Total Bilirubin (0.2-1.0) mg/dl Direct Bilirubin (0-0.2) mg/dl AST (13-39) U/L ALT (7-52) U/L Alkaline Phosphatase (34-104) U/L Total Protein (6.0-8.3) gm/dl Albumin (3.4-5.0) gm/dl Procalcitonin (0-0.5) ng/ml TSH (0.300-4.500) uIu/ml Random Cortisol mcg/dl Urine Color Urine Appearance (Clear) Urine pH (4.5-7.5) Ur Specific [place] (1.000-1.030) Urine Protein (Negative) Urine Glucose (UA) (Negative) Urine Ketones (Negative) Urine Blood (Negative) Urine Nitrite (Negative) Urine Bilirubin (Negative) Urine Urobilinogen (Negative) Ur Leukocyte Esterase (Negative) Urine WBC (Auto) (0-5) /hpf Urine RBC (Auto) (0-4) /hpf U Hyaline Cast (Auto) (0-5) /lpf U Epithel Cells (Auto) (0-5) /lpf Urine Bacteria (Auto) (Negative) Salicylates (3.0-30) mg/dl Acetaminophen (10-30) ug/ml Blood Type Antibody Screen Crossmatch 02/27/23 02/27/23 02/27/23 Range/Units 14:51 14:56 15:04 WBC (4.8-10.8) K/ul RBC (4.20-5.40) M/uL Hgb (12.0-16.0) g/dl POC Hgb (12.0-16.0) g/dl Hct (37.0-47.0) % POC Hct (37-47) % MCV (80.0-100.0) fL MCH (25.0-34.0) pg MCHC (32.0-36.0) g/dL RDW Std Deviation (36.4-46.3) fL RDW Coeff of Minal (11.5-14.5) % Plt Count (130-400) K/uL MPV (9.4-12.4) fL Neutrophils % (Manual) % Monocytes % (Manual) % Neutrophils # (Manual) (1.40-6.50) K/uL Total Absolute Neuts (1.4-6.5) K/uL Monocytes # (Manual) (0.11-0.59) K/uL Polychromasia Basophilic Stippling Echinocytes POC Sodium (135-144) mmol/L Sodium (136-145) mmol/L POC Potassium (3.3-5.0) mmol/L Potassium (3.5-5.1) mmol/L POC Chloride (101-112) mmol/L Chloride (98-107) mmol/L Carbon Dioxide (21-32) mmol/L POC Total CO2 (24-31) mmol/L Anion Gap (3-11) POC Anion Gap (16-25) mmol/L POC BUN (7-18) mg/dl BUN (6-23) mg/dl Creatinine (0.6-1.2) mg/dl POC Creatinine (0.6-1.3) mg/dl Est Cr Clr Drug Dosing ml/min Est GFR ( Amer) ml/min Est GFR (Non-Af Amer) ml/min BUN/Creatinine Ratio (10-20) Glucose (70-99(Fasting)) mg/dl POC Glucose (70-99) mg/dl POC Glucose (other) (70-99) mg/dl Osmolality 320 H (280-300) mOsm/kg Lactate 1.4 (0.4-2.0) mmol/L Calcium (8.6-10.3) mg/dl POC Ioniz Calcium Loki (1.12-1.32) mmol/l Total Bilirubin 0.8 (0.2-1.0) mg/dl Direct Bilirubin 0.2 (0-0.2) mg/dl AST 45 H (13-39) U/L ALT 28 (7-52) U/L Alkaline Phosphatase 162 H (34-104) U/L Total Protein 5.1 L (6.0-8.3) gm/dl Albumin 2.8 L (3.4-5.0) gm/dl Procalcitonin 0.73 H (0-0.5) ng/ml TSH 0.323 (0.300-4.500) uIu/ml Random Cortisol 34.93 mcg/dl Urine Color Yellow Urine Appearance Turbid A (Clear) Urine pH 5.0 (4.5-7.5) Ur Specific [place] 1.016 (1.000-1.030) Urine Protein 1+ H (Negative) Urine Glucose (UA) Negative (Negative) Urine Ketones Trace H (Negative) Urine Blood 2+ H (Negative) Urine Nitrite Positive A (Negative) Urine Bilirubin Negative (Negative) Urine Urobilinogen Negative (Negative) Ur Leukocyte Esterase 2+ H (Negative) Urine WBC (Auto) >30 H (0-5) /hpf Urine RBC (Auto) 5-10 H (0-4) /hpf U Hyaline Cast (Auto) 1-5 (0-5) /lpf U Epithel Cells (Auto) 0-5 (0-5) /lpf Urine Bacteria (Auto) 2+ H (Negative) Salicylates < 3.0 L (3.0-30) mg/dl Acetaminophen < 3 L (10-30) ug/ml Blood Type A Positive Antibody Screen NEGATIVE Crossmatch See Detail Administered Medications Norepinephrine Bitartrate (Levophed/D5w) 4 mg in 250 mls @ 14.513 mls/hr IV .[id number] KVNG; Protocol Stop: 03/29/23 14:59 Last Titration: 02/27/23 19:21 Dose: 0.09 mcg/kg/min, 14.5 mls/hr Documented By: Titration: 02/27/23 19:00 Dose: 0.07 mcg/kg/min, 11.3 mls/hr Documented By: Titration: 02/27/23 18:15 Dose: 0.05 mcg/kg/min, 8.1 mls/hr Documented By: Titration: 02/27/23 16:34 Dose: 0.04 mcg/kg/min, 6.5 mls/hr Documented By: Admin: 02/27/23 16:07 Dose: 0.05 mcg/kg/min, 8.1 mls/hr Documented By: ACC Co-signed By: BRIAN Pantoprazole Sodium 40 mg/ (Syringe) 10 mls @ 5 mls/min IV DAILY@1100 KVNG Stop: 03/29/23 16:59 Last Admin: 02/27/23 18:23 Dose: 5 mls/min Documented By: ACC Acetaminophen (Ofirmev) 1,000 mg in 100 mls @ 400 mls/hr IV Q8H [facility] Stop: 03/02/23 17:14 Last Infusion: 02/27/23 19:20 Dose: Infused Documented By: Admin: 02/27/23 18:23 Dose: 400 mls/hr Documented By: ACC Discontinued Medications Vancomycin HCl 750 mg/ Sodium (Chloride) 515 mls @ 200 mls/hr IV NOW ONE Stop: 02/27/23 17:04 Last Infusion: 02/27/23 18:26 Dose: Infused Documented By: Admin: 02/27/23 15:37 Dose: 200 mls/hr Documented By: ACC Ceftriaxone Sodium (Rocephin) 1,000 mg in 50 mls @ 100 mls/hr IV NOW STA Stop: 02/27/23 14:59 Last Infusion: 02/27/23 16:19 Dose: Infused Documented By: Admin: 02/27/23 15:19 Dose: 100 mls/hr Documented By: ACC Sodium Chloride (Nss) 1,000 mls @ 999 mls/hr IV .Q1H1M ONE Stop: 02/27/23 15:58 Last Infusion: 02/27/23 15:41 Dose: Infused Documented By: Admin: 02/27/23 15:23 Dose: 999 mls/hr Documented By: Infusion: 02/27/23 15:23 Dose: Infused Documented By: Admin: 02/27/23 15:19 Dose: 999 mls/hr Documented By: ACC Sodium Chloride (Nss) 1,000 mls @ 999 mls/hr IV .Q1H1M ONE Stop: 02/27/23 15:58 Last Admin: 02/27/23 16:02 Dose: Not Given Documented By: ACC Calcium Gluconate () 1,000 mg in 60 mls @ 240 mls/hr IV NOW STA Stop: 02/27/23 15:28 Last Infusion: 02/27/23 16:19 Dose: Infused Documented By: Admin: 02/27/23 15:31 Dose: 240 mls/hr Documented By: ACC Ioversol (Optiray 320 500ml) 88 ml IV ONCE ONE Stop: 02/27/23 14:35 Last Admin: 02/27/23 14:34 Dose: 88 ml Documented By: AW Miscellaneous (Stat Iv Infusion Titration Per Protocol) 1 each N/A NOW STA Stop: 02/27/23 14:59 Last Admin: 02/27/23 19:19 Dose: Not Given Documented By: MNM Imaging Data Radiologist's Impression: Shoulder X-Ray 02/27/23 12:54 XR shoulder RT min 2V routine CLINICAL HISTORY: deformity TECHNIQUE: 3 views of the right shoulder were obtained. Comparison: None available at the time of this dictation. FINDINGS: There is an acute fracture of the humeral neck with prominent displacement of fracture fragments. Joint spaces are well-preserved. Soft tissue swelling is seen about the shoulder. The visualized portions of the lungs are clear. IMPRESSION: Acute fracture of the humeral ACT 112: Negative or not required by law. Electronically signed by: Trent Woodruff M.D. 02/27/2023 1:41 PM Elbow X-Ray 02/27/23 13:07 XR elbow RT 2V CLINICAL HISTORY: BRUISING TECHNIQUE: 2 views of the right elbow were obtained. Comparison: None available at the time of this dictation. FINDINGS: There is no evidence of an acute fracture. Joint spaces are well-preserved. The alignment is anatomic. There is no prominence of the anterior or posterior fat pads to suggest an effusion. No soft tissue abnormality is seen. IMPRESSION: No evidence of acute fracture or dislocation. ACT 112: Negative or not required by law. Electronically signed by: Trent Woodruff M.D. 02/27/2023 1:42 PM Pelvis X-Ray 02/27/23 13:10 XR pelvis 1-2V routine CLINICAL HISTORY: pain TECHNIQUE: A single frontal view of the pelvis was obtained. Comparison: Comparison is made to left hip radiograph 10/27/2022 FINDINGS: Left femoral maximus is seen. Degenerative changes are seen in the hip joints and lumbar spine. No soft tissue abnormality is seen. IMPRESSION: Degenerative changes without evidence of acute abnormality. ACT 112: Negative or not required by law. Electronically signed by: Ternt Woodruff M.D. 02/27/2023 1:[address] 02/27/23 13:19 CT OF THE CERVICAL SPINE WITHOUT CONTRAST CLINICAL HISTORY: Fall.. COMPARISON STUDY: MRI of the cervical spine August 17, 2022. TECHNIQUE: Helical axial images of the cervical spine were obtained without IV contrast. Sagittal and coronal reconstructions were viewed. Automated exposure control was utilized for the study. A dose lowering technique was utilized adhering to the principles of ALARA. FINDINGS: Alignment of the cervical spine is anatomic. Vertebral body heights are maintained. No acute cervical spine fracture or subluxation is present. There is no prevertebral edema. Facet joints are intact. There is moderate multilevel facet arthrosis, disc space narrowing and osteophytosis within the cervical spine. Slight anterolisthesis of C4 on C5 and slight retrolisthesis of C5 on C6 is unchanged. Small left mastoid effusion is unchanged since MRI of October 30, 2022. IMPRESSION: No acute cervical spine fracture or subluxation. ACT 112: Negative or not required by law. Electronically signed by: Lev Li M.D. 02/27/2023 2:[address] 02/27/23 13:19 CT OF THE HEAD WITHOUT CONTRAST CLINICAL HISTORY: Fall. Altered mental status. COMPARISON STUDY: Head CT October 12, 2022. MRI of the brain October 30, 2022. TECHNIQUE: Helical axial images of the head were obtained without IV contrast. Automated exposure control was utilized for the study. A dose lowering technique was utilized adhering to the principles of ALARA. FINDINGS: No acute intracranial hemorrhage, midline shift or mass effect is present. The ventricular system is unremarkable. The basal cisterns are patent. No extra-axial collections are present. There are no findings to suggest acute dural sinus thrombosis or acute territorial infarct. There is no calvarial fracture. Small left mastoid effusion is unchanged. IMPRESSION: 1. No acute intracranial findings. 2. No calvarial fracture. ACT 112: Negative or not required by law. Electronically signed by: Lev Li M.D. 02/27/2023 2:34 PM Abdomen/Pelvis CT 02/27/23 13:31 CT OF THE ABDOMEN AND PELVIS WITH CONTRAST CLINICAL HISTORY: Trauma. Sepsis. COMPARISON STUDY: CT of the abdomen and pelvis October 12, 2022. TECHNIQUE: Following IV administration of 88 mL of Optiray, axial images of the abdomen and pelvis were obtained from the lung bases to the proximal femurs. Images were reviewed in the axial, sagittal, and coronal planes. IV contrast was administered without complication. Automated exposure control was utilized for the study. A dose lowering technique was utilized adhering to the principles of ALARA. FINDINGS: Note that the chest CT will be reported separately. No pneumatosis, free air or portal venous gas is present. There is no evidence for traumatic injury to the liver, spleen, adrenal glands, kidneys or pancreas. There is no biliary or pancreatic ductal dilatation. Mild right hydronephrosis has significantly improved when compared to CT of October 12, 2022. There is urothelial thickening of the right collecting system. There are no ureteral calculi. 3 mm left renal calculus is present. There is no left hydronephrosis. There is no evidence for a bowel obstruction. Colonic diverticulosis is present without evidence for acute diverticulitis. There is no free fluid. There is no lymphadenopathy within the abdomen or pelvis. A moderate amount of stool within the rectum is present. No acute lumbar spine fracture. Internal fixation of the proximal left femur is noted. There is an acute to subacute moderately displaced comminuted fracture of the greater trochanter of the right femur. Fracture likely involves approximately 50% of the cross-sectional area of the femur. No extension to the lesser trochanter is noted by CT. IMPRESSION: 1. Acute to subacute comminuted, displaced fracture of the greater trochanter of the right femur. Fracture involves approximately 50% cross-sectional area of the femur. Findings may reflect intertrochanteric extension of the fracture although no definite extension to the lesser trochanter by CT. Orthopedic consultation is recommended. 2. No evidence for traumatic injury to the solid abdominal viscera. 3. No bowel obstruction. No bowel wall thickening. Moderate amount of stool within the rectum. Colonic diverticulosis. No evidence for acute diverticulitis. 4. Mild right hydronephrosis, significantly decreased compared to prior CT. Urothelial thickening which could be correlated with analysis. ACT 112: Negative or not required by law. Electronically signed by: Lev Li M.D. 02/27/2023 3:[address] 02/27/23 13:31 CT OF THE CHEST WITH IV CONTRAST CLINICAL HISTORY: Trauma. Pneumonia. Cancer history. COMPARISON STUDY: Chest CT October 29, 2022.. TECHNIQUE: Following IV administration of 88 mL of Optiray, helical axial images of the chest were obtained. Sagittal and coronal reconstructions were viewed as well as maximal intensity projections on an independent 3-D workstation. Automated exposure control was utilized for the study. A dose lowering technique was utilized adhering to the principles of ALARA. CT DOSE: 1652.05 mGy.cm FINDINGS: There is no evidence for traumatic injury to the thoracic aorta. There is no pericardial effusion. Size of the heart is at the upper limits of normal. No pulmonary emboli are identified. Thoracic lymphadenopathy on CT of October 29, 2022 has resolved. No new sites of lymphadenopathy are present. No pneumothorax or pleural effusion is present. No pulmonary contusion is identified. Mild left lower lobe airspace opacity is present. Airspace opacities shown on prior CT have markedly improved. Several occluded left lower lobe segmental bronchi are present. No acute rib or thoracic spine fracture is noted. There is a acute markedly displaced comminuted right humeral head and neck fracture. Glenohumeral alignment is intact. However, the remaining portion of the shaft of the right humerus is significantly displaced anteriorly. Numerous adjacent bone fragments are present. Small to moderate associated hemorrhage is present. Hyperdense foci favor bone fragments, several of which are intra- articular. No definite active extravasation. Abdomen and pelvis CT will be reported separately. IMPRESSION: 1. Acute significantly comminuted and displaced right humeral head and neck fracture. Glenohumeral alignment intact. However, the humeral shaft is significantly displaced anteriorly. Numerous bone fragments, several of which are intra-articular. Small to moderate adjacent hemorrhage. No definite active extravasation. 2. No additional acute traumatic findings within the chest. 3. Resolution of thoracic lymphadenopathy since CT of October 29, 2022 consistent with a treatment response. 4. Mild left lower lobe airspace opacity with a few excluded segmental bronchi. The findings favor a mild infectious process or aspiration pneumonitis. ACT 112: Negative or not required by law. Electronically signed by: Lev Li M.D. 02/27/2023 2:53 PM Discharge Plan Visit Data Chief Complaint: Fall Stated Complaint: fall, unresponsive, low blood sugar ED Provider: Irasema Rodriguez Discharge Problem: Sepsis, Fracture of humeral head, right, closed Patient Disposition: Admitted As Inpatient Discharge Instructions Interventions: ED Discharge Assessment Last Done: 02/27/23 18:43
[2023-02-27 14:28] LABS: Hematocrit (blood only) 19.7 % (37.0-47.0); Hemoglobin 6.5 g/dl (12.0-16.0); Mean Corpuscular Hemoglobin 29.5 pg (25.0-34.0); Mean Corpuscular Volume 89.5 fL (80.0-100.0); Mean Platelet Volume 10.7 fL (9.4-12.4); Platelet Count 127 K/uL (130-400); RDW Coefficient of Variation 14.8 % (11.5-14.5); RDW Standard Deviation 47.5 fL (36.4-46.3); White Blood Count 57.42 K/ul (4.8-10.8)
[2023-02-27] MEDS ORDERED: cefTRIAXone SODIUM 1,000 MG/50 ML BAG IV STA (14:30)
[2023-02-27] MEDS ORDERED: VANCOMYCIN CONSULT ACTIVE PRN (14:30)
[2023-02-27] MEDS ORDERED: VANCOMYCIN HCL 750 MG in SODIUM CHLORIDE 0.9% 500 ML IV ONE (14:30)
[2023-02-27 14:32] LABS: Basophilic Stippling 1+; Echinocytes 1+; Polychromasia 1+
[2023-02-27] MEDS ORDERED: OPTIRAY 320 500ml IV ONE (14:34)
[2023-02-27 14:36] LABS: ANC (manual) 56.85 K/uL (1.4-6.5); Monocytes # (manual) 0.57 K/uL (0.11-0.59); Monocytes % (manual) 1 %; Neutrophils # (manual) 56.85 K/uL (1.40-6.50); Neutrophils % (manual) 99 %
--- NOTE | 2023-02-27 14:36 | CT Scan Report ---
CT OF THE HEAD WITHOUT CONTRAST CLINICAL HISTORY: Fall. Altered mental status. COMPARISON STUDY: Head CT October 12, 2022. MRI of the brain October 30, 2022. TECHNIQUE: Helical axial images of the head were obtained without IV contrast. Automated exposure con trol was utilized for the study. A dose lowering technique was utilized adhering to the principles o f ALARA. FINDINGS: No acute intracranial hemorrhage, midline shift or mass effect is present. The ventricular system is unremarkable. The basal cisterns are patent. No extra-axial collections are present. There are no findings to suggest acute dural sinus thrombosis or acute territorial infarct. There is no skylar varial fracture. Small left mastoid effusion is unchanged. IMPRESSION: 1. No acute intracranial findings. 2. No calvarial fracture. ACT 112: Negative or not required by law. Electronically signed by: Lev Li M.D. 02/27/2023 2:34 PM
--- NOTE | 2023-02-27 14:44 | CT Scan Report ---
CT OF THE CERVICAL SPINE WITHOUT CONTRAST CLINICAL HISTORY: Fall.. COMPARISON STUDY: MRI of the cervical spine August 17, 2022. TECHNIQUE: Helical axial images of the cervical spine were obtained without IV contrast. Sagittal a nd coronal reconstructions were viewed. Automated exposure control was utilized for the study. A do se lowering technique was utilized adhering to the principles of ALARA. FINDINGS: Alignment of the cervical spine is anatomic. Vertebral body heights are maintained. No acut e cervical spine fracture or subluxation is present. There is no prevertebral edema. Facet joints are intact. There is moderate multilevel facet arthrosis, disc space narrowing and osteophytosis within the cervical spine. Slight anterolisthesis of C4 on C5 and slight retrolisthesis of C5 on C6 is uncha nged. Small left mastoid effusion is unchanged since MRI of October 30, 2022. IMPRESSION: No acute cervical spine fracture or subluxation. ACT 112: Negative or not required by law. Electronically signed by: Lev Li M.D. 02/27/2023 2:42 PM
--- NOTE | 2023-02-27 14:56 | CT Scan Report ---
CT OF THE CHEST WITH IV CONTRAST CLINICAL HISTORY: Trauma. Pneumonia. Cancer history. COMPARISON STUDY: Chest CT October 29, 2022.. TECHNIQUE: Following IV administration of 88 mL of Optiray, helical axial images of the chest were o btained. Sagittal and coronal reconstructions were viewed as well as maximal intensity projections o n an independent 3-D workstation. Automated exposure control was utilized for the study. A dose low ering technique was utilized adhering to the principles of ALARA. CT DOSE: 1652.05 mGy.cm FINDINGS: There is no evidence for traumatic injury to the thoracic aorta. There is no pericardial e ffusion. Size of the heart is at the upper limits of normal. No pulmonary emboli are identified. Thor acic lymphadenopathy on CT of October 29, 2022 has resolved. No new sites of lymphadenopathy are prese nt. No pneumothorax or pleural effusion is present. No pulmonary contusion is identified. Mild left l ower lobe airspace opacity is present. Airspace opacities shown on prior CT have markedly improved. S everal occluded left lower lobe segmental bronchi are present. No acute rib or thoracic spine fractur e is noted. There is a acute markedly displaced comminuted right humeral head and neck fracture. Jose ohumeral alignment is intact. However, the remaining portion of the shaft of the right humerus is sig nificantly displaced anteriorly. Numerous adjacent bone fragments are present. Small to moderate asso ciated hemorrhage is present. Hyperdense foci favor bone fragments, several of which are intra-articu lar. No definite active extravasation. Abdomen and pelvis CT will be reported separately. IMPRESSION: 1. Acute significantly comminuted and displaced right humeral head and neck fracture. Glenohumeral al ignment intact. However, the humeral shaft is significantly displaced anteriorly. Numerous bone fragm ents, several of which are intra-articular. Small to moderate adjacent hemorrhage. No definite active extravasation. 2. No additional acute traumatic findings within the chest. 3. Resolution of thoracic lymphadenopathy since CT of October 29, 2022 consistent with a treatment res ponse. 4. Mild left lower lobe airspace opacity with a few excluded segmental bronchi. The findings favor a mild infectious process or aspiration pneumonitis. ACT 112: Negative or not required by law. Electronically signed by: Lev Li M.D. 02/27/2023 2:53 PM
[2023-02-27] MEDS ORDERED: STAT IV Infusion **Titration per Protocol STA (14:58)
[2023-02-27] MEDS ORDERED: SODIUM CHLORIDE 0.9% 1,000 ML IV ONE (14:58)
--- NOTE | 2023-02-27 15:06 | CT Scan Report ---
CT OF THE ABDOMEN AND PELVIS WITH CONTRAST CLINICAL HISTORY: Trauma. Sepsis. COMPARISON STUDY: CT of the abdomen and pelvis October 12, 2022. TECHNIQUE: Following IV administration of 88 mL of Optiray, axial images of the abdomen and pelvis we re obtained from the lung bases to the proximal femurs. Images were reviewed in the axial, sagittal, and coronal planes. IV contrast was administered without complication. Automated exposure control wa s utilized for the study. A dose lowering technique was utilized adhering to the principles of ALARA . FINDINGS: Note that the chest CT will be reported separately. No pneumatosis, free air or portal veno us gas is present. There is no evidence for traumatic injury to the liver, spleen, adrenal glands, ki dneys or pancreas. There is no biliary or pancreatic ductal dilatation. Mild right hydronephrosis has significantly improved when compared to CT of October 12, 2022. There is urothelial thickening of the right collecting system. There are no ureteral calculi. 3 mm left renal calculus is present. There is no left hydronephrosis. There is no evidence for a bowel obstruction. Colonic diverticulosis is pres ent without evidence for acute diverticulitis. There is no free fluid. There is no lymphadenopathy wi thin the abdomen or pelvis. A moderate amount of stool within the rectum is present. No acute lumbar spine fracture. Internal fixation of the proximal left femur is noted. There is an acute to subacute moderately displaced comminuted fracture of the greater trochanter of the right femur. Fracture likel y involves approximately 50% of the cross-sectional area of the femur. No extension to the lesser tro chanter is noted by CT. IMPRESSION: 1. Acute to subacute comminuted, displaced fracture of the greater trochanter of the right femur. Fra cture involves approximately 50% cross-sectional area of the femur. Findings may reflect intertrochan teric extension of the fracture although no definite extension to the lesser trochanter by CT. Orthop edic consultation is recommended. 2. No evidence for traumatic injury to the solid abdominal viscera. 3. No bowel obstruction. No bowel wall thickening. Moderate amount of stool within the rectum. Coloni c diverticulosis. No evidence for acute diverticulitis. 4. Mild right hydronephrosis, significantly decreased compared to prior CT. Urothelial thickening whi ch could be correlated with analysis. ACT 112: Negative or not required by law. Electronically signed by: Lev Li M.D. 02/27/2023 3:04 PM
[2023-02-27] MEDS ORDERED: CALCIUM GLUCONATE 1,000 MG/60 ML BAG IV STA (15:14)
[2023-02-27] MEDS: SODIUM CHLORIDE 0.9% 1,000 ML IV ONE ×2 (15:19→15:23)
[2023-02-27 15:38] LABS: Appearance Urine Turbid (Clear); Bacteria Urine Automated 2+ (Negative); Bilirubin Urine Negative (Negative); Blood Urine 2+ (Negative); Color Urine Yellow; Epithelial Cell Urine Auto 0-5 /lpf (0-5); Glucose Urine UA Negative (Negative); Ketones Urine Trace (Negative); Leukocyte Esterase Urine 2+ (Negative); Nitrite Urine Positive (Negative); Protein Urine 1+ (Negative); Specific Gravity Urine 1.016 (1.000-1.030); Urobilinogen Urine Negative (Negative); WBC Urine Automated >30 /hpf (0-5)
[2023-02-27] MEDS ORDERED: SODIUM CHLORIDE 0.9% 250 ML IV PRN (15:52)
[2023-02-27] MEDS: NOREPINEPHRINE/D5W 4 MG/250 ML PLCT IV SCH (16:07)
--- NOTE | 2023-02-27 16:17 | Critical Care Consultation ---
Date of Consultation February 27, 2023 Assessment & Plan (1) Current smoker: (2) Shock circulatory: (3) Sepsis due to urinary tract infection: (4) TAMIKO (acute kidney injury): (5) Small cell lung cancer in adult: (6) Acute anemia: (7) Fracture, humerus: (8) Weight loss: (9) Reflux esophagitis: (10) COPD (chronic obstructive pulmonary disease): (11) Bradycardia: (12) Atrial flutter, paroxysmal: (13) Protein malnutrition: Plan Reason Critically Ill: 78-year-old female past medical history of COPD, dyslipidemia, small cell lung cancer currently on chemotherapy presented to the hospital with multiple falls and hypotension. Transferred to the ICU for further care Neuro - [facility] ICU: Negative --Metabolic encephalopathy Likely secondary to sepsis Answering all the questions appropriately CT head negative Calcium 7.3, corrected calcium to albumin within normal limit --Hypothermia TLow 31 Continue with Bear hugger Cardiac - -- Shock Multifactorial Decreased oral intake plus urinary sepsis Patient got total 2 L of fluid in the ER which is greater than 15ml/kg Continue with vasopressor support to keep MAP greater than 65 2D echo 09/26/2022: EF 55-60%, RV normal in size and function, moderate TR, PASP 47 mmHg, grade 1 diastolic dysfunction --Bradycardia Likely from hypothermia Continue with passive warming --History of paroxysmal A-fib On metoprolol at home Not a good candidate for anticoagulation given the frequent falls Respiratory - -- COPD with emphysema On Anoro at home --Pulmonary hypertension Combination of type I and type II --Current smoker > [id number] smoking history GI - -- Follow-up LFTs RENAL/LYTES - -- HAGMA Delta-delta: 1.2, as needed ion gap Lactic acid within normal limit, trace urine ketones, starvation ketosis is a possibility along with elevated BUN Follow up serum osm, urine osm, urine lytes Monitor -- TAMIKO Follow-up urine lites Monitor BUN/creatinine Avoid nephrotoxic medications Strict ins and outs ENDO - --Hypoglycemia Could be secondary to decreased oral intake Continue with D5-1/2 NS -- Hypothyroidism On levothyroxine 100 mcg on a daily basis at home Follow-up TSH and free T4 HEME - -- Normocytic anemia PRBC to be transfused to keep hemoglobin greater than 7 ID - -- Septic shock Source is likely UTI CT chest does not show any clear infiltrate Follow-up procalcitonin and blood culture Musculoskeletal - -- Acute comminuted and displaced right humeral head and neck fracture With surrounding contusion Orthopedic on board --Acute to subacute comminuted displaced fracture of the greater trochanter of the right femur Orthopedic on board --Prophylaxis VTE:IPC GI: Pantoprazole Lines: Peripheral Diet: N.p.o. Plan: Transfuse 1 unit of PRBC Give 125 mill an hour Plasma-Lyte for 5 hours Gradually increase the temperature to at least 36.8 with Марина hugger Follow-up TSH and free T4 Patient also likely has starvation ketosis. I will start the patient on D5 half NS at 50 ML/hour Continue with broad-spectrum antibiotics, follow-up septic workup Follow-up random cortisol. Continue with vasopressor support Overall prognosis of the patient is guarded. Palliative care consult will be ordered. I did try to explain to the patient's regarding the critical condition of the patient and the prognosis but I am not sure if he or the patient understand regarding the prognosis going forward irrespective of the presentation this time in the hospital Case discussed with primary team I have personally spent 63 minutes of critical care time in the direct management of this patient. This is a life/limb threatening event. This includes time spent evaluating patient, direct bedside care, chart review, placing orders, interpretation of diagnostic studies, discussion with consultants, patient, and family members, as well as other required patient management activities. This time is exclusive of all separately billable procedures, and teaching time and separate from and in addition to any other critical care service time. History of Present Illness History of Present Illness 73-year-old female presented to the hospital because of multiple falls and generalized lethargy Past medical history: Small cell lung cancer currently on chemotherapy, COPD, pulmonary hypertension, hypothyroidism ICU consulted for persistent hypotension and hypoglycemia Please make note patient is a poor historian At the time of examination patient's was in the room Patient was somnolent but easily arousable. Her map was in the low 70s while being on Levophed 0.05. She has completed 2 L of normal saline bolus She was able to answer questions appropriately Denied any chest pain, no headache, no nausea vomiting Denies any abdominal pain. Recently she denied any pain in the arm as well which is fracture. Denies any dysuria Social history: > [id number] smoking history Allergies Allergy/AdvReac Type Severity Reaction Status Date / Time adhesive tape Allergy Unknown Redness of Verified 10/24/22 16:26 Skin morphine Allergy Unknown shock, Verified 10/17/22 08:28 dspnea neomycin Allergy Unknown Unknown Verified 10/24/22 16:26 Home Medications Medication Instructions Recorded Confirmed Type metoprolol succinate 25 mg 12.5 mg (1/2 x 25 mg) PO DAILY #15 08/22/22 10/24/22 Rx tablet,extended release 24 hr tabs oxybutynin chloride 5 mg 5 mg PO QAM 09/25/22 10/24/22 History tablet,extended release 24 hr famotidine 40 mg tablet 40 mg PO HS PRN Heartburn 10/12/22 10/24/22 History levothyroxine 100 mcg tablet 100 mcg PO DAILY #30 tabs 10/20/22 10/24/22 Rx (Synthroid) loperamide 2 mg capsule 2 mg PO UD PRN diarrhea #30 caps 10/20/22 10/24/22 Rx furosemide 20 mg tablet 20 mg PO DAILY #30 tabs 11/02/22 Rx levofloxacin 750 mg tablet 750 mg PO DAILY@1100 #7 tabs 11/02/22 Rx potassium chloride 10 mEq 10 meq PO DAILY #30 caps 11/02/22 Rx capsule,extended release umeclidinium 62.5 mcg-vilanterol 1 ea inhalation DAILY #60 ea 11/02/22 Rx 25 mcg/actuation powdr for inhalation (Anoro Ellipta) vancomycin 125 mg capsule 125 mg PO DAILY #14 caps 11/02/22 10/24/22 Rx Patient History Medical History COPD (chronic obstructive pulmonary disease) Postsurgical hypothyroidism PSVT (paroxysmal supraventricular tachycardia) Reflux esophagitis Vitamin D deficiency Surgical History Hx of colonoscopy Hx of lumbosacral spine surgery x3 Hx of thyroidectomy Family History Other Breast cancer Social History Smoking Status: Never smoker Tobacco Type: Cigarettes Cigarettes Per Day: 1 pack a week; Second Hand Exposure: Yes; Do You Dip or Chew Tobacco: No; Hx Alcohol Use: No Hx Substance Use: No Preferred Language: Sudanese Communication Ability: Effective 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 Required: No Beliefs That Will Affect Care: None Current Living Situation: Spouse Current Living Situation Comment: home Feels Safe at Home: Yes Assistive Devices: Cane Review of Systems 2 Review of Systems: All systems reviewed & are unremarkable except as noted in HPI & below Physical Exam 2 Physical Exam: Constitutional: No acute distress, frail-appearing HEENT: EOMI, PERRLA, suprasternal scar on the neck Respiratory system: Good air entry bilaterally, no wheeze, no rhonchi, mild crackles right lower lobe CVS: S1-S2 positive, no murmurs or gallops, bradycardia Abdomen: Soft, nontender, nondistended, positive bowel sounds x4 Extremities: +1 pulses bilaterally radialis/ dorsalis pedis, no cyanosis, no edema Neuro: Somnolent but easily arousable, oriented to self and place Psych: Flat mood and affect G/U: No Delcid Musculoskeletal: Right shoulder bruising with the formation of the right humerus/lateral dislocation superior one third of the shaft, positive tenderness Skin: no rashes, warm and dry Lymphatic: no cervical or axillary lymphadenopathy Results & Data Results & Data Vital Signs (Past 12 Hours) Vital Signs Temp Pulse Resp BP Pulse Ox O2 Del Method 02/27/23 15:47 99/53 L 02/27/23 15:47 31.0 C L 72 26 H 97 02/27/23 15:45 31.0 C L 59 L 14 97 02/27/23 15:30 106/71 02/27/23 15:30 31.0 C L 64 18 02/27/23 15:15 98/71 L 02/27/23 15:15 30.7 C L 63 14 100 02/27/23 15:01 99/55 L 02/27/23 15:01 69 25 H 100 02/27/23 15:00 61 20 98 02/27/23 14:51 52 L 13 100 02/27/23 14:51 81/40 L 02/27/23 14:45 53 L 17 100 02/27/23 14:35 75 22 90 02/27/23 14:00 98/62 L 02/27/23 14:00 54 L 18 100 02/27/23 13:45 57 L 22 100 02/27/23 13:36 100/53 L 02/27/23 13:36 57 L 21 91 02/27/23 13:30 67 18 97 02/27/23 13:19 96/49 L 02/27/23 13:19 60 16 100 02/27/23 13:15 58 L 21 100 02/27/23 13:04 82/55 L 02/27/23 13:04 54 L 18 100 02/27/23 13:04 57 L 02/27/23 13:02 58 L 18 100 02/27/23 12:34 58 L 17 89/51 L 100 Room Air Laboratory Results 02/27/23 13:48 02/27/23 13:48 Coding Level of Care Code 98522 CRITICAL CARE 1ST 30-74M Diagnoses Current smoker F17.200 Shock circulatory R57.9 Sepsis due to urinary tract infection A41.9; N39.0 TAMIKO (acute kidney injury) N17.9 Small cell lung cancer in adult C34.90 Acute anemia D64.9 Fracture, humerus S42.309A Weight loss R63.4 Reflux esophagitis K21.00 COPD (chronic obstructive pulmonary disease) J44.9 Bradycardia R00.1 Atrial flutter, paroxysmal I48.92 Protein malnutrition E46 Time Spent (min) 63
[2023-02-27 16:40] LABS: Albumin Level 2.8 gm/dl (3.4-5.0); Bilirubin Direct 0.2 mg/dl (0-0.2); Bilirubin,Total 0.8 mg/dl (0.2-1.0)
--- NOTE | 2023-02-27 16:45 | History & Physical Report ---
Date of Service February 27, 2023 Assessment & Plan (1) Acute metabolic encephalopathy: (2) Shock circulatory: Plan: Cont hemodynamic support with IVF and norepinephrine. Cont broad spectrum abx pending culture results and clinical improvement. Die Sinker managing. (3) Sepsis due to urinary tract infection: Plan: plan as noted above. (4) Fracture, humerus: Plan: severe fracture of the humerus with intraarticular bone fragments noted on scan. Consult Dr. Scott to see her in am. Cont scheduled APAP and other pain medications. Sling per ortho this evening which is being placed in the ER. (5) Fracture of left hip: Plan: cont supportive care, recommendations per ortho in am. (6) Acute anemia: Plan: Hb 6.5. Uncertain if there is any active bleeding. Likely this is related to chemotherapy. Transfuse 1 unit now and trend H/H. (7) TAMIKO (acute kidney injury): Plan: Cont hemodynamic support and IVF per ICU team. Trend BMP. Hold home diuretics. (8) Small cell lung cancer in adult: Plan: Lung cancer on carboplatin and etoposide with last treatment just a few days ago. Also on pegfilgrastim. WBC today is 57K. Presents in septic shock. Hold all chemotherapeutics at this time. Followup with oncology as outpatient post hospital discharge. (9) Current smoker: Plan: Long history of smoking and per notes, she apparently quit in the last month. (10) Protein malnutrition: Plan: Nutrition consult. Start feeds as soon as able, holding while on pressor support. (11) Generalized weakness: (12) Postsurgical hypothyroidism: Plan: chronic, stable. Cont home levothyroxine. (13) COPD (chronic obstructive pulmonary disease): Plan: chronic, stable. No evidence of exacerbation. Cont home Anoro Ellipta. Cont to avoid smoking. (14) Osteoporosis: Plan: severe and likely the cause of the fractures in the setting of protein malnutrition and chemotherapy. Per PCP (15) On antineoplastic chemotherapy: Plan: DVT prophy-contraindicated in setting of anemia, SCDs ordered. Full Code per prior records, however, would reassess this with the patient or her spouse when available. Dispo- to ICU I spent a total [id number] coordinating, documenting, and providing care for this patient excluding time spent in the performance of separately billed services DO Charles [facility] History of Present Illness Chief Complaint: falls at home Primary Care Provider: Hayes Maurer DO The patient is a frail 73 year old female with multiple admissions in recent months for ongoing weight loss and falls at home, ultimately found to have 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 She was started on systemic chemotherapy with carboplatin and etoposide and per the records, it appears her last chemotherapy was around. She received pegfilgrastim with her cycles, also. She is a COPD patient with a long history of smoking. She has known osteoporosis and was already considered high risk for fracture. Per previous records, she had a left hip nondisplaced intertrochanteric femur fracture following a fall. S/P left hip short cephalomedullary nailing for nondisplaced intertrochanteric femur fracture by Dr. Ernesto Scott on 10/27/2022 at [facility]. She has a h/o cdiff gene positive with stool PCR repeatedly finding norovirus. She was seen by ID who felt this was not an active infection at that time. She was seen by [facility] in early Feb and was noted to be ambulating with a walker and had notably come to the clinic by herself that day. She has a at home, but no other support outside of this. She arrives today in critical condition confused with hypoglycemia in the field, hypothermia, a severely broken right shoulder and right femur after successive falls at home. Per ER physician, EMS found her unresponsive in the field with a glucose in the 30s. She was also seen by EMS yesterday but had refused transport at that time. Spouse is not available to assist with history at this time. Although improved after dextrose administration, the patient herself is confused and cannot give a history. She repeatedly states she needs to use the bathroom even though she has a hawthorne in place and she cannot get up because of a severely fractured right shoulder and fractured right hip. She is not understanding what has happened to her and also denies any pain. I did try contacting her spouse at home but was unable to connect with him. She has a Hb 6.5 and is in shock requiring pressor support with norepinephrine after adequate IVF resuscitation in the ER. She has acute renal failure, with a possible UTI and/or a pneumonia. She was started on broad spectrum antibiotics and transferred to ICU. Dr Canas boiler control technician for orthopedics recommended a sling and swath to immobilize her shoulder which was performed in the ER. He also recommended that we consult Dr. Scott, her previous surgeon, and consider CT scan of her shoulder with 3D reconstruction as he worked on her previously and also performs shoulder arthroplasty, which Dr. Canas doesn't do. Allergies Allergy/AdvReac Type Severity Reaction Status Date / Time adhesive tape Allergy Unknown Redness of Verified 10/24/22 16:26 Skin morphine Allergy Unknown shock, Verified 10/17/22 08:28 dspnea neomycin Allergy Unknown Unknown Verified 10/24/22 16:26 Home Medications Medication Instructions Recorded Confirmed Type metoprolol succinate 25 mg 12.5 mg (1/2 x 25 mg) PO DAILY #15 08/22/22 02/27/23 Rx tablet,extended release 24 hr tabs oxybutynin chloride 5 mg 5 mg PO QAM 09/25/22 02/27/23 History tablet,extended release 24 hr levothyroxine 100 mcg tablet 100 mcg PO DAILY #30 tabs 10/20/22 02/27/23 Rx (Synthroid) potassium chloride 10 mEq 10 meq PO DAILY #30 caps 11/02/22 02/27/23 Rx capsule,extended release umeclidinium 62.5 mcg-vilanterol 1 ea inhalation DAILY #60 ea 11/02/22 02/27/23 Rx 25 mcg/actuation powdr for inhalation (Anoro Ellipta) furosemide 20 mg tablet 20 mg PO BID 02/27/23 02/27/23 History Past Med/Surg History Medical History (Updated 02/27/23 @ 20:29 by Monica Escalante DO) On antineoplastic chemotherapy Recurrent falls Osteoporosis Small cell lung cancer in adult Pulmonary hypertension Postsurgical hypothyroidism Reflux esophagitis PSVT (paroxysmal supraventricular tachycardia) COPD (chronic obstructive pulmonary disease) Vitamin D deficiency Surgical History Hx of lumbosacral spine surgery x3 Hx of thyroidectomy Hx of colonoscopy Family History Other Breast cancer Social History Smoking Status: Former smoker Tobacco Type: Cigarettes Cigarettes Per Day: 1 pack a week; Smoking End Date: 4 months ago; Second Hand Exposure: Yes; Do You Dip or Chew Tobacco: No; Hx Alcohol Use: No Hx Substance Use: No Preferred Language: [place] Communication Ability: Effective Data Virtualization Consultant Required: No Beliefs That Will Affect Care: None Current Living Situation: Spouse Current Living Situation Comment: home Feels Safe at Home: Yes Assistive Devices: Glasses Physical Exam Physical Exam: CONSTITUTIONAL: cachectic appearing, vitals as above, generally ill appearing with dry oral mucous membranes and confusion. EYES: PERRL, normal conjunctivae, no scleral icterus, ENT: external ear and nose normal NECK: trachea midline RESPIRATORY: clear to auscultation bilaterally, no crackles, rales or wheezes, normal respiratory effort CARDIOVASCULAR: regular rate and rhythm, S1 and 2 heard without murmurs, gallops or rubs, no JVD, no peripheral edema CHEST: inspection of chest revealed an erythematous, swollen right shoulder. GASTROINTESTINAL: soft, nontender, ND, no guarding MUSCULOSKELETAL: cannot move right arm with severely broken right shoulder, cannot move right leg wtih R femur fracture, otherwise she is generally weak, head is normocephalic and atraumatic, SKIN: warm and dry NEUROLOGIC: No facial palsy, no dysarthria. CN 2-12 grossly intact, normal cognition, normal speech, no tremor PSYCHIATRIC: alert cooperative but disoriented to date and time. Knew she was in the hospital but didn't know why or why she was on chemotherapy., Unable to given historical details. Results & Data Results & Data Vital Signs (Past 12 Hours) Vital Signs Temp Pulse Resp BP Pulse Ox O2 Del Method 02/27/23 16:20 31.4 C L 54 L 15 100 02/27/23 16:20 103/70 02/27/23 16:19 108/66 02/27/23 16:19 31.5 C L 56 L 15 100 02/27/23 16:15 31.3 C L 132 H 35 H 93 02/27/23 16:14 31.3 C L 100 02/27/23 16:14 101/60 02/27/23 16:06 88/52 L 02/27/23 16:06 31.2 C L 53 L 14 100 02/27/23 16:00 90/59 L 02/27/23 16:00 31.2 C L 60 20 100 02/27/23 15:47 99/53 L 02/27/23 15:47 31.0 C L 72 26 H 97 02/27/23 15:45 31.0 C L 59 L 14 97 02/27/23 15:30 106/71 02/27/23 15:30 31.0 C L 64 18 02/27/23 15:15 98/71 L 02/27/23 15:15 30.7 C L 63 14 100 02/27/23 15:01 99/55 L 02/27/23 15:01 69 25 H 100 02/27/23 15:00 61 20 98 02/27/23 14:51 52 L 13 100 02/27/23 14:51 81/40 L 02/27/23 14:45 53 L 17 100 02/27/23 14:35 75 22 90 02/27/23 14:00 98/62 L 02/27/23 14:00 54 L 18 100 02/27/23 13:45 57 L 22 100 02/27/23 13:36 100/53 L 02/27/23 13:36 57 L 21 91 02/27/23 13:30 67 18 97 02/27/23 13:19 96/49 L 02/27/23 13:19 60 16 100 02/27/23 13:15 58 L 21 100 02/27/23 13:04 82/55 L 02/27/23 13:04 54 L 18 100 02/27/23 13:04 57 L 02/27/23 13:02 58 L 18 100 02/27/23 12:34 58 L 17 89/51 L 100 Room Air Laboratory Results Short CBC 02/27/23 Range/Units 13:48 WBC 57.42 H* (4.8-10.8) K/ul Hgb 6.5 L* (12.0-16.0) g/dl Hct 19.7 L* (37.0-47.0) % Plt Count 127 L (130-400) K/uL BMP 02/27/23 13:48 Sodium 139 Potassium 3.8 Chloride 106 Carbon Dioxide 17 L BUN 74 H Creatinine 1.48 H Glucose 216 H Calcium 7.3 L Liver Function 02/27/23 Range/Units 14:56 Total Bilirubin 0.8 (0.2-1.0) mg/dl Direct Bilirubin 0.2 (0-0.2) mg/dl AST 45 H (13-39) U/L ALT 28 (7-52) U/L Alkaline Phosphatase 162 H (34-104) U/L Albumin 2.8 L (3.4-5.0) gm/dl Urine 02/27/23 Range/Units 15:04 Urine Color Yellow Urine Appearance Turbid A (Clear) Urine pH 5.0 (4.5-7.5) Ur Specific [place] 1.016 (1.000-1.030) Urine Protein 1+ H (Negative) Urine Glucose (UA) Negative (Negative) Diagnostic Findings Shoulder X-Ray 02/27/23 12:54 XR shoulder RT min 2V routine CLINICAL HISTORY: deformity TECHNIQUE: 3 views of the right shoulder were obtained. Comparison: None available at the time of this dictation. FINDINGS: There is an acute fracture of the humeral neck with prominent displacement of fracture fragments. Joint spaces are well-preserved. Soft tissue swelling is seen about the shoulder. The visualized portions of the lungs are clear. IMPRESSION: Acute fracture of the humeral ACT 112: Negative or not required by law. Electronically signed by: Trent Woodruff M.D. 02/27/2023 1:41 PM Elbow X-Ray 02/27/23 13:07 XR elbow RT 2V CLINICAL HISTORY: BRUISING TECHNIQUE: 2 views of the right elbow were obtained. Comparison: None available at the time of this dictation. FINDINGS: There is no evidence of an acute fracture. Joint spaces are well-preserved. The alignment is anatomic. There is no prominence of the anterior or posterior fat pads to suggest an effusion. No soft tissue abnormality is seen. IMPRESSION: No evidence of acute fracture or dislocation. ACT 112: Negative or not required by law. Electronically signed by: Trent Woodruff M.D. 02/27/2023 1:42 PM Pelvis X-Ray 02/27/23 13:10 XR pelvis 1-2V routine CLINICAL HISTORY: pain TECHNIQUE: A single frontal view of the pelvis was obtained. Comparison: Comparison is made to left hip radiograph 10/27/2022 FINDINGS: Left femoral maximus is seen. Degenerative changes are seen in the hip joints and lumbar spine. No soft tissue abnormality is seen. IMPRESSION: Degenerative changes without evidence of acute abnormality. ACT 112: Negative or not required by law. Electronically signed by: Trent Woodruff M.D. 02/27/2023 1:[address] 02/27/23 13:19 CT OF THE CERVICAL SPINE WITHOUT CONTRAST CLINICAL HISTORY: Fall.. COMPARISON STUDY: MRI of the cervical spine August 17, 2022. TECHNIQUE: Helical axial images of the cervical spine were obtained without IV contrast. Sagittal and coronal reconstructions were viewed. Automated exposure control was utilized for the study. A dose lowering technique was utilized adhering to the principles of ALARA. FINDINGS: Alignment of the cervical spine is anatomic. Vertebral body heights are maintained. No acute cervical spine fracture or subluxation is present. There is no prevertebral edema. Facet joints are intact. There is moderate multilevel facet arthrosis, disc space narrowing and osteophytosis within the cervical spine. Slight anterolisthesis of C4 on C5 and slight retrolisthesis of C5 on C6 is unchanged. Small left mastoid effusion is unchanged since MRI of October 30, 2022. IMPRESSION: No acute cervical spine fracture or subluxation. ACT 112: Negative or not required by law. Electronically signed by: Lev Li M.D. 02/27/2023 2:[address] 02/27/23 13:19 CT OF THE HEAD WITHOUT CONTRAST CLINICAL HISTORY: Fall. Altered mental status. COMPARISON STUDY: Head CT October 12, 2022. MRI of the brain October 30, 2022. TECHNIQUE: Helical axial images of the head were obtained without IV contrast. Automated exposure control was utilized for the study. A dose lowering technique was utilized adhering to the principles of ALARA. FINDINGS: No acute intracranial hemorrhage, midline shift or mass effect is present. The ventricular system is unremarkable. The basal cisterns are patent. No extra-axial collections are present. There are no findings to suggest acute dural sinus thrombosis or acute territorial infarct. There is no calvarial fracture. Small left mastoid effusion is unchanged. IMPRESSION: 1. No acute intracranial findings. 2. No calvarial fracture. ACT 112: Negative or not required by law. Electronically signed by: Lev Li M.D. 02/27/2023 2:34 PM Abdomen/Pelvis CT 02/27/23 13:31 CT OF THE ABDOMEN AND PELVIS WITH CONTRAST CLINICAL HISTORY: Trauma. Sepsis. COMPARISON STUDY: CT of the abdomen and pelvis October 12, 2022. TECHNIQUE: Following IV administration of 88 mL of Optiray, axial images of the abdomen and pelvis were obtained from the lung bases to the proximal femurs. Images were reviewed in the axial, sagittal, and coronal planes. IV contrast was administered without complication. Automated exposure control was utilized for the study. A dose lowering technique was utilized adhering to the principles of ALARA. FINDINGS: Note that the chest CT will be reported separately. No pneumatosis, free air or portal venous gas is present. There is no evidence for traumatic injury to the liver, spleen, adrenal glands, kidneys or pancreas. There is no biliary or pancreatic ductal dilatation. Mild right hydronephrosis has significantly improved when compared to CT of October 12, 2022. There is urothelial thickening of the right collecting system. There are no ureteral calculi. 3 mm left renal calculus is present. There is no left hydronephrosis. There is no evidence for a bowel obstruction. Colonic diverticulosis is present without evidence for acute diverticulitis. There is no free fluid. There is no lymphadenopathy within the abdomen or pelvis. A moderate amount of stool within the rectum is present. No acute lumbar spine fracture. Internal fixation of the proximal left femur is noted. There is an acute to subacute moderately displaced comminuted fracture of the greater trochanter of the right femur. Fracture likely involves approximately 50% of the cross-sectional area of the femur. No extension to the lesser trochanter is noted by CT. IMPRESSION: 1. Acute to subacute comminuted, displaced fracture of the greater trochanter of the right femur. Fracture involves approximately 50% cross-sectional area of the femur. Findings may reflect intertrochanteric extension of the fracture although no definite extension to the lesser trochanter by CT. Orthopedic consultation is recommended. 2. No evidence for traumatic injury to the solid abdominal viscera. 3. No bowel obstruction. No bowel wall thickening. Moderate amount of stool w ithin the rectum. Colonic diverticulosis. No evidence for acute diverticulitis. 4. Mild right hydronephrosis, significantly decreased compared to prior CT. Urothelial thickening which could be correlated with analysis. ACT 112: Negative or not required by law. Electronically signed by: Lev Li M.D. 02/27/2023 3:[address] 02/27/23 13:31 CT OF THE CHEST WITH IV CONTRAST CLINICAL HISTORY: Trauma. Pneumonia. Cancer history. COMPARISON STUDY: Chest CT October 29, 2022.. TECHNIQUE: Following IV administration of 88 mL of Optiray, helical axial images of the chest were obtained. Sagittal and coronal reconstructions were viewed as well as maximal intensity projections on an independent 3-D workstation. Automated exposure control was utilized for the study. A dose lowering technique was utilized adhering to the principles of ALARA. CT DOSE: 1652.05 mGy.cm FINDINGS: There is no evidence for traumatic injury to the thoracic aorta. There is no pericardial effusion. Size of the heart is at the upper limits of normal. No pulmonary emboli are identified. Thoracic lymphadenopathy on CT of October 29, 2022 has resolved. No new sites of lymphadenopathy are present. No pneumothorax or pleural effusion is present. No pulmonary contusion is identified. Mild left lower lobe airspace opacity is present. Airspace opacities shown on prior CT have markedly improved. Several occluded left lower lobe segmental bronchi are present. No acute rib or thoracic spine fracture is noted. There is a acute markedly displaced comminuted right humeral head and neck fracture. Glenohumeral alignment is intact. However, the remaining portion of the shaft of the right humerus is significantly displaced anteriorly. Numerous adjacent bone fragments are present. Small to moderate associated hemorrhage is present. Hyperdense foci favor bone fragments, several of which are intra- articular. No definite active extravasation. Abdomen and pelvis CT will be reported separately. IMPRESSION: 1. Acute significantly comminuted and displaced right humeral head and neck fracture. Glenohumeral alignment intact. However, the humeral shaft is significantly displaced anteriorly. Numerous bone fragments, several of which are intra-articular. Small to moderate adjacent hemorrhage. No definite active extravasation. 2. No additional acute traumatic findings within the chest. 3. Resolution of thoracic lymphadenopathy since CT of October 29, 2022 consistent with a treatment response. 4. Mild left lower lobe airspace opacity with a few excluded segmental bronchi. The findings favor a mild infectious process or aspiration pneumonitis. ACT 112: Negative or not required by law. Electronically signed by: Lev Li M.D. 02/27/2023 2:53 PM Code Status & VTE Plan VTE Prophylaxis Plan VTE Prophylaxis will be ordered: Yes
[2023-02-27 16:46] LABS: Total Protein 5.1 gm/dl (6.0-8.3)
[2023-02-27 16:49] LABS: Acetaminophen < 3 ug/ml (10-30); Salicylate < 3.0 mg/dl (3.0-30)
[2023-02-27 17:01] LABS: Thyroid Stimulating Hormone 0.323 uIu/ml (0.300-4.500)
[2023-02-27] MEDS: ACETAMINOPHEN 1,000 MG/100 ML VIAL IV SCH (18:23)
[2023-02-27] MEDS: PANTOprazole 40 MG in SYRINGE 0 ML IV SCH (18:23)
[2023-02-27 19:20] LABS: Calcium 7.5 mg/dl (8.6-10.3); Potassium 4.2 mmol/L (3.5-5.1)
[2023-02-27 19:26] LABS: BUN Creatinine Ratio 54.2 (10-20); Est GFR (African American) 46.7 ml/min; Est GFR (Non-African American) 40.3 ml/min
[2023-02-27] MEDS ORDERED: PLASMA-LYTE A 1,000 ML IV ONE (19:51)
[2023-02-27] MEDS ORDERED: PIPER/TAZO 4.5g in D5W MINI-B 100 ML IV ONE (20:00)
[2023-02-27] MEDS: ICU Protocol for HYPERglycemia SCH (20:56)
[2023-02-27 21:36] LABS: Appearance Urine Turbid (Clear); Bilirubin Urine Negative (Negative); Blood Urine 2+ (Negative); Color Urine Yellow; Epithelial Cell Urine Auto 20-30 /lpf (0-5); Glucose Urine UA Negative (Negative); Ketones Urine Negative (Negative); Leukocyte Esterase Urine 3+ (Negative); Nitrite Urine Positive (Negative); Protein Urine Trace (Negative); Specific Gravity Urine 1.033 (1.000-1.030); Urobilinogen Urine Negative (Negative); WBC Urine Automated >30 /hpf (0-5)
[2023-02-27 21:49] LABS: Potassium Random Urine 29.7 mmol/L
[2023-02-27 21:53] LABS: Bacteria Urine Automated 2+ (Negative); RBC Urine Automated 0-4 /hpf (0-4)
[2023-02-27 21:57] LABS: Amphetamines+Metham, Urine Neg (Neg); Barbiturates, Urine Neg (Neg); Benzodiazepine, Urine Neg (Neg); Cocaine, Urine Neg (Neg); Creatinine Urine Random 31.7 mg/dl; MDMA (Ecstacy), Urine Neg (Neg); Marijuana, Urine Neg (Neg); Methadone, Urine Neg (Neg); Opiate, Urine Neg (Neg); Phencyclidine, Urine Neg (Neg)
[2023-02-27] MEDS ORDERED: PLASMA-LYTE A 1,000 ML IV SCH (22:15)
[2023-02-27] MEDS ORDERED: Nursing to Pharmacy Communication SCH (22:15)
[2023-02-27 23:47] LABS: Hematocrit (blood only) 24.2 % (37.0-47.0); Hemoglobin 8.1 g/dl (12.0-16.0)
[2023-02-28] MEDS ORDERED: DEXTROSE 50% 50 ML SYRINGE IV ONE (00:14)
[2023-02-28] MEDS ORDERED: GLUCOSE 10 TAB/TUBE PO PRN (00:15)
[2023-02-28] MEDS ORDERED: GLUCAGON FOR INJ 1 MG VIAL SQ PRN (00:15)
[2023-02-28] MEDS ORDERED: DEXTROSE 50% 50 ML SYRINGE IV PRN (00:15)
[2023-02-28] MEDS ORDERED: CARBOHYDRATES FOR HYPOGLYCEMIA PO PRN (00:15)
[2023-02-28] MEDS ORDERED: GLUCOSE 40% GEL 15 GM TUBE PO PRN (00:15)
[2023-02-28] MEDS: D5W AND NSS 1,000 ML IV SCH ×3 (00:31→23:43)
[2023-02-28] MEDS: ACETAMINOPHEN 1,000 MG/100 ML VIAL IV SCH (00:46)
[2023-02-28] MEDS ORDERED: VANCOMYCIN HCL 750 MG in SODIUM CHLORIDE 0.9% 250 ML IV SCH (04:00)
[2023-02-28] MEDS ORDERED: VANCOMYCIN HCL 750 MG in SODIUM CHLORIDE 0.9% 500 ML IV ONE (04:00)
[2023-02-28] MEDS: PIPERACILLIN/TAZOBACTAM 4.5 GM in DEXTROSE 5% MINI-B 100 ML IV SCH ×3 (04:32→19:51)
[2023-02-28] MEDS ORDERED: LEVOTHYROXINE SODIUM 100 MCG TABLET PO SCH (06:30)
[2023-02-28] MEDS: ICU Protocol for HYPERglycemia SCH ×4 (07:12→20:09)
--- NOTE | 2023-02-28 07:31 | Critical Care Progress Note ---
Date of Service February 28, 2023 Assessment & Plan (1) Current smoker: (2) Shock circulatory: (3) Sepsis due to urinary tract infection: (4) TAMIKO (acute kidney injury): (5) Small cell lung cancer in adult: (6) Acute anemia: (7) Fracture, humerus: (8) Weight loss: (9) Reflux esophagitis: (10) COPD (chronic obstructive pulmonary disease): (11) Bradycardia: (12) Atrial flutter, paroxysmal: (13) Protein malnutrition: Plan Reason Critically Ill: 78-year-old female past medical history of COPD, dyslipidemia, small cell lung cancer currently on chemotherapy presented to the hospital with multiple falls and hypotension. Transferred to the ICU for further care Neuro - [facility] ICU: Negative --Metabolic encephalopathy Likely secondary to sepsis Answering all the questions appropriately CT head negative Calcium 7.3, corrected calcium to albumin within normal limit --Hypothermia TLow 31 Continue with Bear hugger Cardiac - -- Shock Multifactorial Decreased oral intake plus urinary sepsis Patient got total 2 L of fluid in the ER which is greater than 15ml/kg Random cortisol 35 Continue with vasopressor support to keep MAP greater than 65 2D echo 09/26/2022: EF 55-60%, RV normal in size and function, moderate TR, PASP 47 mmHg, grade 1 diastolic dysfunction --Bradycardia Likely from hypothermia Continue with passive warming --History of paroxysmal A-fib On metoprolol at home Not a good candidate for anticoagulation given the frequent falls Respiratory - -- COPD with emphysema On Anoro at home --Pulmonary hypertension Combination of type I and type II --Current smoker > [id number] smoking history GI - -- Follow-up LFTs RENAL/LYTES - --S/p HAGMA Delta-delta: 1.2, as needed ion gap Lactic acid within normal limit, trace urine ketones, starvation ketosis is a possibility along with elevated BUN Monitor -- TAMIKO Monitor BUN/creatinine Avoid nephrotoxic medications Strict ins and outs ENDO - --Hypoglycemia Could be secondary to decreased oral intake Continue with D5-1/2 NS -- Hypothyroidism On levothyroxine 100 mcg on a daily basis at home TSH 0.32 HEME - -- Normocytic anemia PRBC to be transfused to keep hemoglobin greater than 7 ID - -- Septic shock with gram-negative's in the urine CT chest does not show any clear infiltrate Procalcitonin 0.79 Nasal MRSA negative Random cortisol 35 Musculoskeletal - -- Acute comminuted and displaced right humeral head and neck fracture With surrounding contusion Orthopedic on board --Acute to subacute comminuted displaced fracture of the greater trochanter of the right femur Orthopedic on board --Prophylaxis VTE:IPC GI: Pantoprazole Lines: Peripheral Diet: Clear liquids Plan: In/out: +4 L, urine output 900 mL Patient is currently on 125 mill of D5 NS because she was hypoglycemic overnight. I will decrease it to 100 if the sugars are still well then we will go down to 75. Clear liquid for the patient if she is able to tolerate it Patient's blood pressure is usually on the lower side even on previous admissions. Will try to titrate off the vasopressors while keeping the MAP around 65 Give 50 mcg of IV levothyroxine instead of p.o. right now Is a MRSA negative, vancomycin discontinued Hemoglobin is still on the lower side, repeat H&H later today Potassium being replaced Overall prognosis of the patient is guarded. Palliative care consult has been ordered I have personally spent 40 minutes of critical care time in the direct management of this patient. This is a life/limb threatening event. This includes time spent evaluating patient, direct bedside care, chart review, placing orders, interpretation of diagnostic studies, discussion with consultants, patient, and family members, as well as other required patient management activities. This time is exclusive of all separately billable procedures, and teaching time and separate from and in addition to any other critical care service time. Admission and Anticipated Discharge Date Admission Date: February 27, 2023 Subjective Patient seen and examined at bedside. No acute distress. She was on Levophed 0.05 the time of examination with MAP 69. She was oriented to only self. She was little more confused compared to yesterday when I saw her in the ER Denied any headache, no nausea, no vomiting No chest pain, no abdominal pain Did complain of pain in the right arm Review of Systems 2 Review of Systems: All systems reviewed & are unremarkable except as noted in Subjective Physical Exam 2 Physical Exam: Constitutional: No acute distress, frail-appearing HEENT: EOMI, PERRLA, suprasternal scar on the neck Respiratory system: Good air entry bilaterally, no wheeze, no rhonchi, mild crackles right lower lobe CVS: S1-S2 positive, no murmurs or gallops Abdomen: Soft, nontender, nondistended, positive bowel sounds x4 Extremities: +1 pulses bilaterally radialis/ dorsalis pedis, no cyanosis, no edema Neuro: Somnolent but easily arousable, oriented to self Psych: Flat mood and affect G/U: No Delcid Musculoskeletal: Right shoulder bruising, right arm in sling, positive tenderness Skin: no rashes, warm and dry Lymphatic: no cervical or axillary lymphadenopathy Results & Data Results & Data Vital Signs (Past 12 Hours) Vital Signs Temp Pulse Pulse Resp BP BP Pulse Ox 02/28/23 07:15 36.7 C 67 20 100/53 L 98 02/28/23 06:00 95/60 L 02/28/23 06:00 36.6 C 63 21 98 02/28/23 05:45 97/55 L 02/28/23 05:45 36.7 C 70 15 99 02/28/23 05:00 36.7 C 62 17 98 02/28/23 05:00 99/52 L 02/28/23 04:00 94/46 L 02/28/23 04:00 36.7 C 62 12 98 02/28/23 03:00 92/59 L 02/28/23 03:00 36.6 C 63 15 98 02/28/23 02:30 118/67 02/28/23 02:30 36.4 C L 71 20 97 02/28/23 02:00 97/53 L 02/28/23 02:00 36.2 C L 62 12 98 02/28/23 01:15 35.9 C L 59 L 13 98 02/28/23 01:15 85/45 L 02/28/23 00:00 35.7 C L 69 20 99 02/28/23 00:00 105/64 02/27/23 23:30 35.5 C L 74 24 98 02/27/23 23:30 108/72 02/27/23 23:13 62 02/27/23 23:00 93/59 L 02/27/23 23:00 35.3 C L 71 20 98 02/27/23 22:17 35.2 C L 70 19 109/63 94 02/27/23 21:40 34.7 C L 71 22 99 02/27/23 21:40 73/57 L 02/27/23 21:29 34.6 C L 63 19 95/57 L 98 02/27/23 20:59 34.1 C L 62 18 117/60 98 02/27/23 20:44 34 C L 63 15 85/45 L 99 02/27/23 20:24 33.8 C L 63 13 91/44 L 100 02/27/23 20:07 135/65 02/27/23 20:06 135/65 02/27/23 20:06 33.5 C L 60 13 99 O2 Del Method 02/28/23 07:15 Room Air 02/28/23 06:00 02/28/23 06:00 02/28/23 05:45 02/28/23 05:45 02/28/23 05:00 02/28/23 05:00 02/28/23 04:00 02/28/23 04:00 02/28/23 03:00 02/28/23 03:00 02/28/23 02:30 02/28/23 02:30 02/28/23 02:00 02/28/23 02:00 02/28/23 01:15 02/28/23 01:15 02/28/23 00:00 02/28/23 00:00 02/27/23 23:30 02/27/23 23:30 02/27/23 23:13 02/27/23 23:00 02/27/23 23:00 02/27/23 22:17 02/27/23 21:40 02/27/23 21:40 02/27/23 21:29 02/27/23 20:59 02/27/23 20:44 02/27/23 20:24 02/27/23 20:07 02/27/23 20:06 02/27/23 20:06 Laboratory Results 02/27/23 23:19 02/27/23 17:47 Coding Level of Care Code 57385 CRITICAL CARE 1ST 30-74M Diagnoses Current smoker F17.200 Shock circulatory R57.9 Sepsis due to urinary tract infection A41.9; N39.0 TAMIKO (acute kidney injury) N17.9 Small cell lung cancer in adult C34.90 Acute anemia D64.9 Fracture, humerus S42.309A Weight loss R63.4 Reflux esophagitis K21.00 COPD (chronic obstructive pulmonary disease) J44.9 Bradycardia R00.1 Atrial flutter, paroxysmal I48.92 Protein malnutrition E46
[2023-02-28] MEDS: UMECLIDINIUM/VILANTEROL 62.5/25MCG 7 PUFFS/INHALER INH SCH (08:40)
[2023-02-28 08:50] LABS: Hematocrit (blood only) 21.1 % (37.0-47.0); Hemoglobin 7.3 g/dl (12.0-16.0); Mean Corpuscular Hemoglobin 29.9 pg (25.0-34.0); Mean Corpuscular Hgb Conc 34.6 g/dL (32.0-36.0); Mean Corpuscular Volume 86.5 fL (80.0-100.0); Mean Platelet Volume 10.9 fL (9.4-12.4); Platelet Count 130 K/uL (130-400); RDW Coefficient of Variation 14.2 % (11.5-14.5); RDW Standard Deviation 43.7 fL (36.4-46.3); Red Blood Count 2.44 M/uL (4.20-5.40); White Blood Count 26.04 K/ul (4.8-10.8)
[2023-02-28 09:06] LABS: Albumin Globulin Ratio 1.2 (0.9-2); Albumin Level 2.5 gm/dl (3.4-5.0); BUN Creatinine Ratio 47.2 (10-20); Bilirubin,Total 0.6 mg/dl (0.2-1.0); Creatinine Clr Calc Pharmacy 26.4 ml/min; Est GFR (African American) 49.4 ml/min; Est GFR (Non-African American) 42.6 ml/min; Globulin 2.1 gm/dl (2.5-4.0); Magnesium 2.2 mg/dl (1.7-2.4); Potassium 3.8 mmol/L (3.5-5.1); Total Protein 4.6 gm/dl (6.0-8.3)
[2023-02-28 09:18] LABS: ALC (manual) 0.78 K/uL (1.2-3.4); ANC (manual) 25.26 K/uL (1.4-6.5); Dohle Bodies 1+; Echinocytes 1+; Lymphocytes # (manual) 0.78 K/uL (1.2-3.4); Lymphocytes % (manual) 3 %; Neutrophils # (manual) 25.26 K/uL (1.40-6.50); Neutrophils % (manual) 97 %
[2023-02-28] MEDS ORDERED: LEVOTHYROXINE SODIUM 50 MCG in SYRINGE 0 ML IV SCH (10:00)
--- NOTE | 2023-02-28 10:22 | Electrocardiogram Report ---
Test Reason : Blood Pressure : / mmHG Vent. Rate : 056 BPM Atrial Rate : 056 BPM P-R Int : 198 ms QRS Dur : 084 ms QT Int : 494 ms P-R-T Axes : 077 083 100 degrees QTc Int : 476 ms Sinus bradycardia with marked sinus arrhythmia Otherwise normal ECG When compared with ECG of 02-NOV-2022 06:31, Premature ventricular complexes are no longer Present ST elevation now present in Inferior leads Nonspecific T wave abnormality now evident in Lateral leads QT has lengthened Confirmed by Phi Cash ([id number] on 02/28/2023 10:22:25 AM Referred By: Confirmed By:Rito Cash
[2023-02-28] MEDS: PANTOprazole 40 MG in SYRINGE 0 ML IV SCH (10:24)
--- NOTE | 2023-02-28 10:57 | Hospitalist Progress Note ---
Date of Service February 28, 2023 Assessment & Plan (1) Acute metabolic encephalopathy: (2) Shock circulatory: (3) Sepsis due to urinary tract infection: Plan: Patient presented with falls at home Was reported to be unresponsive with glucose of 30 by EMS Was noted to be in shock on presentation, confused, Hb 6.5, right humeral and right trochanteric fractures UA suggests UTI Being managed for septic shock due to complicated UTI Continue levophed to maintain MAP >65 Will defer vasopressor management to legal specialist Continue zosyn MRSA screen is negative so vanc was discontinued Follow up infectious workup including blood and urine cultures Head CT did not show any acute abnormalities or fractures (4) Fracture of greater trochanter of right femur: (5) Fracture, humerus: Plan: Severe fracture of the right humerus with intraarticular bone fragments noted on scan. Age-related osteoporosis with current pathological fracture, R humerus and R hip Lexy Licona with Dr Pete informed me that Dr Canas spoke with Dr Scott who will see patient later this week Keep patient NWB RLE. Continue sling in RUE for now until Dr Scott evaluates for possible surgery Pain control (6) Acute anemia: Plan: Hb 6.5. s/p 1 PRBC Hb is 7.1 today Monitor. Transfuse PRN to keep Hb >7 (7) TAMIKO (acute kidney injury): Plan: Cont hemodynamic support and IVF per ICU team. Likely from septic shock Hold home diuretics Avoid nephrotoxins and monitor (8) Small cell lung cancer in adult: Plan: Lung cancer on carboplatin and etoposide with last treatment just a few days ago. Also on pegfilgrastim. WBC on admission 57K WBC is 26K today Presents in septic shock. Followup with oncology as outpatient post hospital discharge. (9) Current smoker: Plan: Long history of smoking and per notes, she apparently quit in the last month. (10) Protein malnutrition: Plan: Nutrition consult. (11) Generalized weakness: (12) Postsurgical hypothyroidism: Plan: Cont home levothyroxine. (13) COPD (chronic obstructive pulmonary disease): Plan: Chronic, stable. No evidence of exacerbation. Cont home Anoro Ellipta. (14) Osteoporosis: Plan: Severe and likely the cause of the fractures in the setting of protein malnutrition and chemotherapy. (15) On antineoplastic chemotherapy: Plan: DVT prophy-contraindicated in setting of anemia, SCDs ordered. Full Code per prior records, however, would reassess this with the patient or her spouse when available. Dispo- ICU I spent a total [id number] coordinating, documenting, and providing care for this patient excluding time spent in the performance of separately billed services Admission and Anticipated Discharge Date Admission Date: February 27, 2023 Subjective Patient seen and examined Patient is alert and oriented to person only and very confused. This limits history She denied any complaints initially but later stated she has some pain on RUE Denied chest pain, cough, SOB, abd pain She is low dose levophed Physical Exam Constitutional: + thin; no acute distress Eyes: PERRL, conjunctivae normal, anicteric sclerae ENMT: external ear and nose normal, oropharynx normal Respiratory: normal respiratory effort, lungs clear to auscultation Cardiovascular: Rate/Rhythm: regular rate and regular rhythm S1 S2 Gastrointestinal (Abdomen): normal bowel sounds, soft, nontender, no hepatosplenomegaly Musculoskeletal: RUE in sling Neurologic: PERRL, EOMI, accommodation nl, no face palsy, no dysarthria Oriented to person only Results & Data Results & Data Vital Signs (Past 12 Hours) Vital Signs Temp Pulse Pulse Resp BP BP Pulse Ox 02/28/23 07:15 36.7 C 67 20 100/53 L 98 02/28/23 07:00 63 02/28/23 06:00 95/60 L 02/28/23 06:00 36.6 C 63 21 98 02/28/23 05:45 97/55 L 02/28/23 05:45 36.7 C 70 15 99 02/28/23 05:00 36.7 C 62 17 98 02/28/23 05:00 99/52 L 02/28/23 04:00 94/46 L 02/28/23 04:00 36.7 C 62 12 98 02/28/23 03:00 92/59 L 02/28/23 03:00 36.6 C 63 15 98 02/28/23 02:30 118/67 02/28/23 02:30 36.4 C L 71 20 97 02/28/23 02:00 97/53 L 02/28/23 02:00 36.2 C L 62 12 98 02/28/23 01:15 35.9 C L 59 L 13 98 02/28/23 01:15 85/45 L 02/28/23 00:00 35.7 C L 69 20 99 02/28/23 00:00 105/64 02/27/23 23:30 35.5 C L 74 24 98 02/27/23 23:30 108/72 02/27/23 23:13 62 02/27/23 23:00 93/59 L 02/27/23 23:00 35.3 C L 71 20 98 O2 Del Method 02/28/23 07:15 Room Air 02/28/23 07:00 02/28/23 06:00 02/28/23 06:00 02/28/23 05:45 02/28/23 05:45 02/28/23 05:00 02/28/23 05:00 02/28/23 04:00 02/28/23 04:00 02/28/23 03:00 02/28/23 03:00 02/28/23 02:30 02/28/23 02:30 02/28/23 02:00 02/28/23 02:00 02/28/23 01:15 02/28/23 01:15 02/28/23 00:00 02/28/23 00:00 02/27/23 23:30 02/27/23 23:30 02/27/23 23:13 02/27/23 23:00 02/27/23 23:00 Laboratory Results Abnormal lab results 02/27/23 02/27/23 02/27/23 Range/Units 13:48 14:51 14:56 WBC (4.8-10.8) K/ul RBC (4.20-5.40) M/uL Hgb (12.0-16.0) g/dl Hct (37.0-47.0) % Neutrophils # (Manual) 56.85 H (1.40-6.50) K/uL Total Absolute Neuts 56.85 H (1.4-6.5) K/uL Lymphocytes # (Manual) (1.2-3.4) K/uL Total Abs Lymphocytes (1.2-3.4) K/uL Chloride (98-107) mmol/L Carbon Dioxide (21-32) mmol/L Anion Gap (3-11) BUN (6-23) mg/dl Creatinine (0.6-1.2) mg/dl BUN/Creatinine Ratio (10-20) Glucose (70-99(Fasting)) mg/dl POC Glucose (70-99) mg/dl Osmolality 320 H (280-300) mOsm/kg Calcium (8.6-10.3) mg/dl Phosphorus (2.5-4.9) mg/dl AST 45 H (13-39) U/L Alkaline Phosphatase 162 H (34-104) U/L Total Creatine Kinase (26-192) U/L Total Protein 5.1 L (6.0-8.3) gm/dl Albumin 2.8 L (3.4-5.0) gm/dl Globulin (2.5-4.0) gm/dl Procalcitonin 0.73 H (0-0.5) ng/ml Urine Appearance (Clear) Ur Specific [place] (1.000-1.030) Urine Protein (Negative) Urine Ketones (Negative) Urine Blood (Negative) Urine Nitrite (Negative) Ur Leukocyte Esterase (Negative) Urine WBC (Auto) (0-5) /hpf Urine RBC (Auto) (0-4) /hpf U Epithel Cells (Auto) (0-5) /lpf Urine Bacteria (Auto) (Negative) Urine Osmolality (500-800) mOsm/kg Salicylates < 3.0 L (3.0-30) mg/dl Acetaminophen < 3 L (10-30) ug/ml Crossmatch See Detail 02/27/23 02/27/23 02/27/23 Range/Units 15:04 17:47 19:24 WBC (4.8-10.8) K/ul RBC (4.20-5.40) M/uL Hgb (12.0-16.0) g/dl Hct (37.0-47.0) % Neutrophils # (Manual) (1.40-6.50) K/uL Total Absolute Neuts (1.4-6.5) K/uL Lymphocytes # (Manual) (1.2-3.4) K/uL Total Abs Lymphocytes (1.2-3.4) K/uL Chloride 109 H (98-107) mmol/L Carbon Dioxide 17 L (21-32) mmol/L Anion Gap 14 H (3-11) BUN 71 H (6-23) mg/dl Creatinine 1.31 H (0.6-1.2) mg/dl BUN/Creatinine Ratio 54.2 H (10-20) Glucose 120 H (70-99(Fasting)) mg/dl POC Glucose 104 H (70-99) mg/dl Osmolality (280-300) mOsm/kg Calcium 7.5 L (8.6-10.3) mg/dl Phosphorus (2.5-4.9) mg/dl AST (13-39) U/L Alkaline Phosphatase (34-104) U/L Total Creatine Kinase (26-192) U/L Total Protein (6.0-8.3) gm/dl Albumin (3.4-5.0) gm/dl Globulin (2.5-4.0) gm/dl Procalcitonin (0-0.5) ng/ml Urine Appearance Turbid A (Clear) Ur Specific [place] (1.000-1.030) Urine Protein 1+ H (Negative) Urine Ketones Trace H (Negative) Urine Blood 2+ H (Negative) Urine Nitrite Positive A (Negative) Ur Leukocyte Esterase 2+ H (Negative) Urine WBC (Auto) >30 H (0-5) /hpf Urine RBC (Auto) 5-10 H (0-4) /hpf U Epithel Cells (Auto) (0-5) /lpf Urine Bacteria (Auto) 2+ H (Negative) Urine Osmolality (500-800) mOsm/kg Salicylates (3.0-30) mg/dl Acetaminophen (10-30) ug/ml Crossmatch 02/27/23 02/27/23 02/28/23 Range/Units 23:19 Unknown 00:12 WBC (4.8-10.8) K/ul RBC (4.20-5.40) M/uL Hgb 8.1 L (12.0-16.0) g/dl Hct 24.2 L (37.0-47.0) % Neutrophils # (Manual) (1.40-6.50) K/uL Total Absolute Neuts (1.4-6.5) K/uL Lymphocytes # (Manual) (1.2-3.4) K/uL Total Abs Lymphocytes (1.2-3.4) K/uL Chloride (98-107) mmol/L Carbon Dioxide (21-32) mmol/L Anion Gap (3-11) BUN (6-23) mg/dl Creatinine (0.6-1.2) mg/dl BUN/Creatinine Ratio (10-20) Glucose (70-99(Fasting)) mg/dl POC Glucose 57 L* (70-99) mg/dl Osmolality (280-300) mOsm/kg Calcium (8.6-10.3) mg/dl Phosphorus (2.5-4.9) mg/dl AST (13-39) U/L Alkaline Phosphatase (34-104) U/L Total Creatine Kinase (26-192) U/L Total Protein (6.0-8.3) gm/dl Albumin (3.4-5.0) gm/dl Globulin (2.5-4.0) gm/dl Procalcitonin (0-0.5) ng/ml Urine Appearance Turbid A (Clear) Ur Specific [place] 1.033 H (1.000-1.030) Urine Protein Trace H (Negative) Urine Ketones (Negative) Urine Blood 2+ H (Negative) Urine Nitrite Positive A (Negative) Ur Leukocyte Esterase 3+ H (Negative) Urine WBC (Auto) >30 H (0-5) /hpf Urine RBC (Auto) (0-4) /hpf U Epithel Cells (Auto) 20-30 H (0-5) /lpf Urine Bacteria (Auto) 2+ H (Negative) Urine Osmolality 443 L (500-800) mOsm/kg Salicylates (3.0-30) mg/dl Acetaminophen (10-30) ug/ml Crossmatch 02/28/23 02/28/23 02/28/23 Range/Units 00:18 00:36 05:55 WBC (4.8-10.8) K/ul RBC (4.20-5.40) M/uL Hgb (12.0-16.0) g/dl Hct (37.0-47.0) % Neutrophils # (Manual) (1.40-6.50) K/uL Total Absolute Neuts (1.4-6.5) K/uL Lymphocytes # (Manual) (1.2-3.4) K/uL Total Abs Lymphocytes (1.2-3.4) K/uL Chloride (98-107) mmol/L Carbon Dioxide (21-32) mmol/L Anion Gap (3-11) BUN (6-23) mg/dl Creatinine (0.6-1.2) mg/dl BUN/Creatinine Ratio (10-20) Glucose (70-99(Fasting)) mg/dl POC Glucose 55 L* 250 H 125 H (70-99) mg/dl Osmolality (280-300) mOsm/kg Calcium (8.6-10.3) mg/dl Phosphorus (2.5-4.9) mg/dl AST (13-39) U/L Alkaline Phosphatase (34-104) U/L Total Creatine Kinase (26-192) U/L Total Protein (6.0-8.3) gm/dl Albumin (3.4-5.0) gm/dl Globulin (2.5-4.0) gm/dl Procalcitonin (0-0.5) ng/ml Urine Appearance (Clear) Ur Specific [place] (1.000-1.030) Urine Protein (Negative) Urine Ketones (Negative) Urine Blood (Negative) Urine Nitrite (Negative) Ur Leukocyte Esterase (Negative) Urine WBC (Auto) (0-5) /hpf Urine RBC (Auto) (0-4) /hpf U Epithel Cells (Auto) (0-5) /lpf Urine Bacteria (Auto) (Negative) Urine Osmolality (500-800) mOsm/kg Salicylates (3.0-30) mg/dl Acetaminophen (10-30) ug/ml Crossmatch 02/28/23 02/28/23 02/28/23 Range/Units 08:29 11:07 13:18 WBC 26.04 H D (4.8-10.8) K/ul RBC 2.44 L (4.20-5.40) M/uL Hgb 7.3 L (12.0-16.0) g/dl Hct 21.1 L (37.0-47.0) % Neutrophils # (Manual) 25.26 H (1.40-6.50) K/uL Total Absolute Neuts 25.26 H (1.4-6.5) K/uL Lymphocytes # (Manual) 0.78 L (1.2-3.4) K/uL Total Abs Lymphocytes 0.78 L (1.2-3.4) K/uL Chloride 114 H (98-107) mmol/L Carbon Dioxide 20 L (21-32) mmol/L Anion Gap (3-11) BUN 59 H (6-23) mg/dl Creatinine 1.25 H (0.6-1.2) mg/dl BUN/Creatinine Ratio 47.2 H (10-20) Glucose 121 H (70-99(Fasting)) mg/dl POC Glucose 103 H 121 H (70-99) mg/dl Osmolality (280-300) mOsm/kg Calcium 7.0 L (8.6-10.3) mg/dl Phosphorus 5.0 H (2.5-4.9) mg/dl AST (13-39) U/L Alkaline Phosphatase 132 H (34-104) U/L Total Creatine Kinase 512 H (26-192) U/L Total Protein 4.6 L (6.0-8.3) gm/dl Albumin 2.5 L (3.4-5.0) gm/dl Globulin 2.1 L (2.5-4.0) gm/dl Procalcitonin (0-0.5) ng/ml Urine Appearance (Clear) Ur Specific [place] (1.000-1.030) Urine Protein (Negative) Urine Ketones (Negative) Urine Blood (Negative) Urine Nitrite (Negative) Ur Leukocyte Esterase (Negative) Urine WBC (Auto) (0-5) /hpf Urine RBC (Auto) (0-4) /hpf U Epithel Cells (Auto) (0-5) /lpf Urine Bacteria (Auto) (Negative) Urine Osmolality (500-800) mOsm/kg Salicylates (3.0-30) mg/dl Acetaminophen (10-30) ug/ml Crossmatch
--- NOTE | 2023-02-28 11:04 | Palliative Care Consultation ---
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 She states she would want her , Don to be her decision maker, and she chooses all life sustaining interventions, for a short period stating " I would not want to be on it forever". She states she has to think about things before completing form. Aware to bring a copy back into clinic to be scanned into chart. India Wilks RN (5) Palliative care by specialist: Met with pt. She is intermittently confused, overall more confused than not. 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 She says she is at home alone for the most part and does not have help. Provided overview of Palliative Medicine, a subspecialty that provides specialized medical care for people living with a serious illness by offering a focus on quality of life. Palliative Medicine is often conflated with hospice: I advised patient/family that Palliative and hospice can be partners but we are not the same. It is important to understand the difference so that we may be informed, and not afraid. There is strong evidence supporting the initiation of Palliative Care into the management of this patient with advanced met lung cancer; palliative care, when provided alongside oncologic care, leads to improved QOL, fewer depressive symptoms, better prognosis understanding and longer median survival ely when given the overall poor prognosis and QOL issues at hand. (Marjorie et al. (2010). Early palliative care for patients with metastatic gri-vtbtk-aegs lung cancer. [place] J of Med 363(9), 733-742. Doi: 10.1056/[id number].) We discussed that cancer patients experience significant symptom and psychosocial burden for which the early integration of supportive oncology with palliative medicine (early findings from the research of Margarita) help address a growing need to manage patients comprehensively, with an emphasis on symptom control, nutritional and psychosocial support, and pharmaceutical review. Palliative care consultation in patients with advanced cancer is not only associated with an improvement in the quality of oncology care, but also a reduction in downstream healthcare utilization. In Poncho et al 2017, when the automatic palliative medicine consult was triggered by specific oncology criteria, 30-day readmission rates and use of chemotherapy after discharge declined, whereas hospice referrals and uptake of support services post- discharge increased. Patients with advanced cancer admitted to an acute care hospital often have short life expectancies and high morbidity - for these patients, the integration of palliative care has improved symptom burden, reduced patient and caregiver distress, increased referral to hospice, and improved outcomes. Palliative Medicine works to improve QOL through reduction of symptom burden/more control over their illness, for both the patient and family. Palliative medicine clinicians are board certified, specially-trained and another member of the patient's medical care team. We often provide an extra layer of support because our care is based on the needs of the patient, not the prognosis; as such, it's appropriate at any age/advancing stage of a serious illness and can be provided along with curative treatment. Palliative Medicine clinicians are also trained in advanced communication methodologies, to facilitate complex discussions about advanced illness planning, which are needed to help assure that the treatment choices match the patient's goals, aka delivering Goal Concordant care. Finally, we discussed that hospice is a visiting nurse service that focuses on care delivered at the very end of life for patients with terminal illness, with life expectancy less than 6 month. 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 - her tumor has two components. The majority represents a small cell carcinoma. The minority represents a non-small cell carcinoma without any definitive adenocarcinoma or squamous cell carcinoma differentiation. (7) Shock circulatory: (8) Fracture of humeral head, right, closed: Encounter type: initial encounter Qualified Code(s): S42.291A - Other displaced fracture of upper end of right humerus, initial encounter for closed fracture Plan * Pt is not decisional * I have messaged Dr Rodriguez/oncology to update him and see if he has further reccs; Oncology input is needed to shape a goals of care discussion. * Continue treating what's treatable/fix what's fixable. * She is not safe at home with current support. If PT/OT eval pt and recc home dc would strongly advocate for addition of home health support for ongoing supervision. She has not structured help in daytime. works full times, his ability to care for her remains unclear and I will note that review of EMR-Link indicates she often comes to her cancer clinic appointments alone. * [facility] sleep hygiene and sleep protocol: critically ill patients struggle with changes in their environment: sleep becomes disrupted and there's also sensory deprivation: eyeglasses, hearing aids, usual activities, etc. These deprivations can contribute to ICU related losses including cognitive impairment, PTSD and depression. Promote long blocks of uninterrupted sleep/minimize number of times pt is disrupted, reduce noise, promote natural circadian rhythm (lights on/blinds open in daytime, closed and dimmed at night), manage pain, cluster nursing activities at night, provide quiet times. * She had an ACP [facility] and indicated she would want a trial of life support but not exterminator helper termite/indefinite life support (see above in HPI) * Once we have more input from [facility] oncology, we can try to schedule a more in depth ACP meeting with pt . IF she is generally improving an dc home is planned then please refer to [facility] and they will see her at [facility] with Oncology for same day visit and ongoing follow up. Thank you for allowing us to participate in the ongoing care of this patient. Please don't hesitate to call or page with any additional concerns. Dr. Nevin Brown DNP Director, Palliative Care History of Present Illness Reason for Consultation: Goals of care Attending Physician: Martha De Los Santos MD History of Present Illness Kaci Funk is a frail 73-year-old female who has had multiple admissions in the last few months for ongoing weight loss, falls at home, and has a new small cell lung cancer with non-small cell lung cancer involving the right supraclavicular lymph node and significant mediastinal lymph nadege involvement. She was started on systemic chemotherapy with carboplatin and etoposide. Her last chemotherapy was last week. She received pegfilgrastim with her cycles. She also has COPD with a long history of smoking. She has known osteoporosis and is very high risk for fracture. Prior records indicate a left hip nondisplaced intertrochanteric femur fracture following a fall status post left hip short cephalomedullary nailing for nondisplaced intertrochanteric femur fra cture with Dr. Scott who 10/27/2022 at the [facility]. She had a history of C. difficile gene positive with stool PCR repeatedly finding norovirus. ID was consulted who felt this was not an active infection at that time. She is followed by [facility] oncology at [facility]. Was ambulating with a walker. And had come to clinic by herself at the time of that admission. She has no support apart from her at home. When she presented to the ED on 02/27/2023, she was noted to be hypoglycemic, hypothermic, a severely broken right shoulder and right femur and was reported to have successive falls at home. She was unresponsive in the field. Glucose was noted to be in the 30s. EMS had been called to her house the day previous, 02/26/2023, but she refused transport at that time. In the ED, spouse was not available to assist with history. Dextrose administration did show some improvement in glucose but she remained confused and could not provide history. She is not able to follow commands. Hemoglobin was found to be 6.5. She is in shock requiring pressor support with norepinephrine and continued IV fluid resuscitation in the ER. She has acute renal failure, questionable UTI, possible pneumonia. She was started on broad-spectrum antibiotics and transferred to the ICU. Her shoulder was immobilized in a sling and orthopedic consultation is pending. A CT scan of the right shoulder with 3D reconstruction is being considered. Overall prognosis is noted to be guarded by critical care consultation of 02/27/2023. Palliative medicine was consulted to assist with these sensitive discussions. Critical care did meet with the patient's to review few the overall criticality of the patient's illness and her overall poor prognosis however it was felt that neither patient or her had a clear understanding or acceptance of her prognosis moving forward. She remains a full code. Ortho consult earlier today which notes the following: Fracture of humeral head, right, closed: Right proximal humerus fracture --> Sling with immobilizer strap around body, NWB RUE, Pain control per primary, ICE PRN & recommend consult for Dr Scott for possible surgical intervention for reverse TSA recommended by Dr Canas. Patient would need to be medically optimized for any potential surgery. Right hip greater trochanteric fracture: patient is no c/o any pain currently with her right hip despite CT showing right hip greater troch fracture. Delirium could be contributing to this. She says that she has frequently fallen so could be subacute fracture, would keep her NWB RLE for now [employer] reviewed: 01/31/[address] Rodriguez: DIAGNOSIS: 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 CURRENT TREATMENT: - systemic chemotherapy with carboplatin and etoposide. Carboplatin at AUC of 4 on day 1 Etoposide 100 mg/m daily for 3 days, repeating every 21 days. She is here for cycle 2 chemotherapy. High risk for febrile neutropenia, would like to give her prophylactic Pegfilgrastim to prevent the febrile neutropenia. DIAGNOSTIC WORKUP: She had been admitted at [facility] for about 4 times in the last few months, reviewed hospital records, she had increasing generalized weakness, dizziness, severe protein calorie malnutrition, 25 lb weight loss, diarrhea. CT scan of the abdomen pelvis (10/12/2022) -moderate to severe right-sided hydronephrosis, no obstructing lesions noted. -left-sided nephrolithiasis. -no liver lesion. No lymphadenopathy. CT scan of the chest (10/30/2019) -right axilla lymph node measuring 0.8 x 0.7 cm Right cervical lymph node measuring 2.2 x 1.8 cm -right paratracheal lymph node measuring 2 x 1.7 cm -right lower paratracheal lymph node measuring 3.5 x 3.2 cm Right hilar lymph node 2.0 x 1.9 cm -extensive bilateral lower lobe airspace consolidation. -interlobular septal thickening. Tbfc-[id number] bilateral pleural effusion. 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 - her tumor has two components. The majority represents a small cell carcinoma. The minority represents a non-small cell carcinoma without any definitive adenocarcinoma or squamous cell carcinoma differentiation. Brain MRI > negative for metastatic disease (10/30/2022). Back pain evaluation: MRI of the cervical spine (08/17/2022 ) -Multilevel degenerative changes are seen with up to mild canal stenosis, moderate to severe right and severe left neuroforaminal stenosis. MRI of the thoracic spine (08/17/2022) - No evidence of cord compression, significant neuroforaminal narrowing or ligamentous injury. MRI of the lumbar spine (08/19/2022). 1. Status post L3-L4 discectomy, posterior decompression and bilateral pedicle screw fusion. 2. Mild to moderate central canal stenosis at L1-L2. Otherwise, patent central canal. 3. Multilevel neural foraminal stenosis, as above. 4. No lumbar spine fractures. No acute process within the lumbar spine. OTHER IMPORTANT HISTORY: - Left hip nondisplaced intertrochanteric femur fracture following a fall. S/P eft hip short cephalomedullary nailing for nondisplaced intertrochanteric femur fracture by Dr. Ernesto Scott on 10/27/2022 at [facility]. -stool for C difficile positive/Stool culture also grew norovirus - smokes about 5 cigarettes in a day, now she has discontinued smoking habit. INTERVAL HISTORY: She has come the clinic for the follow-up, ambulating with the help of the walker, she came to clinic by herself . Previously palpable right supraclavicular node is no longer palpable, she does complain of some tingling and numbness of both lower extremities, some swelling of the both feet, no increasing nausea or vomiting at this time, current weight is around 89 lb, weight loss by about 10 lb noted. No nausea or vomiting, no diarrhea, no constipation, currently not on oxygen treatment, no new cardiac or pulmonary symptoms. Back pain present. No abdominal pain or distention. ASSESSMENT AND PLAN: 72-year-old female, who was admitted at [facility] on few occasions, overall generalized declining health, weight loss, fall, fractured left intertrochanteric femur, S/P surgical intervention for that in October 2022 Imaging study showed enlarged right supraclavicular lymph node, mediastinal l ymph nodes, biopsy from the right cervical lymph node showed predominant small cell lung cancer small component of non-small cell lung cancer. Currently she is receiving etoposide and carboplatin chemotherapy, received 1 cycle of chemotherapy, overall tolerated It well, previously palpable right supraclavicular lymph node is no longer palpable. Reviewed blood workup done today, overall stable blood workup noted. Will proceed with 2nd cycle of chemotherapy with etoposide carboplatin as we planned She will receive prophylactic Pegfilgrastim Earlier we talked about combined chemoradiation treatment but the It would be very difficult for her to tolerate the treatment as well as she does not have a good family support other than her . Will continue with the chemotherapy treatment option at this time and the once her clinical condition improves, will consider for radiation treatment. Will see her in 3 weeks before the next cycle. Dr. Héctor Rodriguez Hem/Onc On 12/27/22, She had an ACP appt with care t: ACP (Advance Care Planning) India Wilks RN ([employer])Registered Nurse Patient-centered Nkhvpycubskdy38/25/2023Patient was given ACP booklet and combined medical POA/living will form. She states she would want her , Don to be her decision maker, and she chooses all life sustaining inter ventions, for a short period stating " I would not want to be on it forever". She states she has to think about things before completing form. Aware to bring a copy back into clinic to be scanned into chart. India Wilks RN Progress Notes India Wilks RN ([employer])Registered Nurse [employer] Progress Note:Date: 12/27/22Assigned Patient Tier: 2Connected with patient and her , Don via Clinic visit. Verified patient name/. Assessment:Pt. noted the following: She is very tired, but ambulating with her walker. Lives in two story home with her . Does not have any other DME equipment at home. She is anxious and not sleeping, but declining medication treatment at this time. She states she did not initially go to Hem/onc appointment as she felt "what's the point". After discussion about getting more information and treatment plan in place she would like to pursue this. Messages sent to hem/onc to get rescheduled. She voiced that she does not want treatment that would "make me lose my hair and feel even worse". Advised that she will need to discuss with hem/onc. Patient does show some depression symptoms, but declining any services or needs at this time. She does not have ACP in place, but would want , Don to be her healthcare rep. She was given the combined medical/living will form and booklet. She would choose CPR and mechanical ventilation and artificial nutrition if for a short duration. Did you receive an alert for an annual wellness visit? NoIs this call for a hospital, shelter or rehab facility discharge to home? NoMedication Reconciliation:Medication Reconciliation completed: yesReview of Current goals:Discussed the following patient-centered CM goals with the patient during this discussion: -ADHERENCE: Treatment plan -Status: Not Started . -Appointments: Patient will adhere to scheduled appointments -Status: Not Started . -RESPIRATORY: Patient/caregiver will monitor for exacerbation of respiratory condition and treat accordingly -Status: On Track .COPD Patient: YES Breathing: Breathing at BaselineCHF Patient: NOCM Plan:Reviewed 3 Red Flags with patient. Advised to call CM with any of the following: Red Flag 1: Safety/falls, Red Flag 2: pain, or Red Flag 3: dyspneaRemote Patient Monitoring:At this time, RPM not offered/considered for patient due to patient does not want at this time.Plan for Future Contacts:Plan to follow up within 2 weeks to check progress on the following goals/needs hem onc appointment, pain, weakness. Patient declines home visits or services of any type at this time.Planned contacts from the following parties will occur this week: PCP office visit as additional contacts per workflow.Advancement/Closure Plan:Keep patient at current Tier with reassessment per workflow.Patient provided CM contact information and encouraged to call with any changes in condition. SNP Member? NoPCP Notified of enrollment in CM/HM program: YesIs Provider in agreement with POC? Skylar Wilks RNOutpatient Case Management Allergies Allergy/AdvReac Type Severity Reaction Status Date / Time adhesive tape Allergy Unknown Redness of Verified 10/24/22 16:26 Skin morphine Allergy Unknown shock, Verified 10/17/22 08:28 dspnea neomycin Allergy Unknown Unknown Verified 10/24/22 16:26 Home Medications Medication Instructions Recorded Confirmed Type metoprolol succinate 25 mg 12.5 mg (1/2 x 25 mg) PO DAILY #15 08/22/22 02/27/23 Rx tablet,extended release 24 hr tabs oxybutynin chloride 5 mg 5 mg PO QAM 09/25/22 02/27/23 History tablet,extended release 24 hr levothyroxine 100 mcg tablet 100 mcg PO DAILY #30 tabs 10/20/22 02/27/23 Rx (Synthroid) potassium chloride 10 mEq 10 meq PO DAILY #30 caps 11/02/22 02/27/23 Rx capsule,extended release umeclidinium 62.5 mcg-vilanterol 1 ea inhalation DAILY #60 ea 11/02/22 02/27/23 Rx 25 mcg/actuation powdr for inhalation (Anoro Ellipta) furosemide 20 mg tablet 20 mg PO BID 02/27/23 02/27/23 History Patient History Medical History (Updated 02/28/23 @ 12:15 by Nevin Brown DNP) On antineoplastic chemotherapy Recurrent falls Osteoporosis 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 The majority represents a small cell carcinoma. The minority represents a non-small cell carcinoma without any definitive adenocarcinoma or squamous cell carcinoma differentiation. Pulmonary hypertension Postsurgical hypothyroidism Reflux esophagitis PSVT (paroxysmal supraventricular tachycardia) COPD (chronic obstructive pulmonary disease) Vitamin D deficiency Surgical History Hx of lumbosacral spine surgery x3 Hx of thyroidectomy Hx of colonoscopy Family History Other Breast cancer Social History Smoking Status: Former smoker Tobacco Type: Cigarettes Cigarettes Per Day: 1 pack a week; Smoking End Date: 4 months ago; Second Hand Exposure: Yes; Do You Dip or Chew Tobacco: No; Hx Alcohol Use: No Hx Substance Use: No Preferred Language: Telugu Communication Ability: Effective Aerospace Quality Engineer Required: No Beliefs That Will Affect Care: None Current Living Situation: Spouse Current Living Situation Comment: home Feels Safe at Home: Yes Assistive Devices: Glasses and Walker Review of Systems Review of Systems: All systems reviewed & are unremarkable except as noted in Subjective and Unobtainable due to cognitive status Physical Exam Physical Exam: Frail, cachectic female, critically chronically ill appearing Bitemp wasting NAD at rest in bed +confused but pleasant and interactive Resp effort WAL; dim RLL with faint crackles, few rhonchi, sl cough/sli bronchitic S1S2, no murmur noted Abd scaphoid, BS+ BLE + pulses, no edema Right shoulder with ecchymoses, swelling, warm to touch, +sling; distal fingertips warm, able to use cutlery with left hand, will squeeze when asked with right but limited ROM Skin pale, warm +chemo alopecia Neuro: confused. 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[employer]; She insists Dr Katherine santo/oncology [facility] was here to see her this morning [facility] + Mini Mental: Orientation: 2022/january, does not know date/season is spring/day of week unknown (03/10); Place: her home () Registration: 2 ( apple, dog, house; she repeated dog, house) 3 item recall 03, Spell WORLD backwards - offered [id number] as spelling (0/5); Serial 7's: 99, 37, 0 (0/5) Language: 03/14 (cannot write sentence, could not name pen or watch, could not repeat "no ifs, ands or buts", unable to follow 3 stage command, able to close eye when asked (on repeat), unable to copy design SCORE: 07/03 Results & Data Vital Signs (Past 12 Hours) Vital Signs Temp Pulse Pulse Resp BP BP Pulse Ox 02/28/23 07:15 36.7 C 67 20 100/53 L 98 02/28/23 07:00 63 02/28/23 06:00 95/60 L 02/28/23 06:00 36.6 C 63 21 98 02/28/23 05:45 97/55 L 02/28/23 05:45 36.7 C 70 15 99 02/28/23 05:00 36.7 C 62 17 98 02/28/23 05:00 99/52 L 02/28/23 04:00 94/46 L 02/28/23 04:00 36.7 C 62 12 98 02/28/23 03:00 92/59 L 02/28/23 03:00 36.6 C 63 15 98 02/28/23 02:30 118/67 02/28/23 02:30 36.4 C L 71 20 97 02/28/23 02:00 97/53 L 02/28/23 02:00 36.2 C L 62 12 98 02/28/23 01:15 35.9 C L 59 L 13 98 02/28/23 01:15 85/45 L 02/28/23 00:00 35.7 C L 69 20 99 02/28/23 00:00 105/64 02/27/23 23:30 35.5 C L 74 24 98 02/27/23 23:30 108/72 02/27/23 23:13 62 02/27/23 23:00 93/59 L 02/27/23 23:00 35.3 C L 71 20 98 O2 Del Method 02/28/23 07:15 Room Air 02/28/23 07:00 02/28/23 06:00 02/28/23 06:00 02/28/23 05:45 02/28/23 05:45 02/28/23 05:00 02/28/23 05:00 02/28/23 04:00 02/28/23 04:00 02/28/23 03:00 02/28/23 03:00 02/28/23 02:30 02/28/23 02:30 02/28/23 02:00 02/28/23 02:00 02/28/23 01:15 02/28/23 01:15 02/28/23 00:00 02/28/23 00:00 02/27/23 23:30 02/27/23 23:30 02/27/23 23:13 02/27/23 23:00 02/27/23 23:00 Laboratory Results see HPI/data reviewed Diagnostic Findings see HPI/data reviewed PG Care Time/CCT Total # of Minutes Spent Total Time Spent with Patient: Total time spent is greater than 50% in coordination of care (as documented) at patient's floor/unit and/or counseling patient: I spent 120 minutes overall addressing this complex case: 40 min in medical data review/discussion with referring provider(s) and/or preparation for the visit which included extensive OSH and EMR Link data review 45 min in direct interaction with the patient/exam 00 min in Advance Care Planning/Goals of Care discussions as detailed above in note (must be >16min) 15 min in subsequent review and synthesis of assessment and plan 25 min communicating with other providers regarding the patient's case: Prolonged Care Time Prolonged Care Time: Yes [place] [address] IN/OBS CONSULT LVL 5,80M Patient Type New History Comprehensive Exam Comprehensive Medical Decision Making High Complexity Diagnoses Confusion R41.0 Generalized weakness R53.1 Cancer related pain G89.3 Advanced care planning/counseling discussion Z71.89 Palliative care by specialist Z51.5 Small cell lung cancer in adult C34.90 Shock circulatory R57.9 Closed fracture of head of right humerus, initial encounter S42.291A Encounter type: initial encounter Additional Codes Prolonged Care Time - Prolonged Care Time: Yes ([id number])
[2023-02-28] MEDS: POTASSIUM CHLORIDE / WTR 10 MEQ/100 ML PLCT IV SCH ×2 (11:14→12:12)
--- NOTE | 2023-02-28 11:23 | Orthopedic Consultation ---
Date of Consultation February 28, 2023 Assessment & Plan (1) Fracture of humeral head, right, closed: Right proximal humerus fracture -Plan discussed with Dr Canas -Sling with immobilizer strap around body -NWB RUE -Pain control per primary -ICE PRN -Recommend consult for Dr Scott for possible surgical intervention for reverse TSA recommended by Dr Canas. Patient would need to be medically optimized for any potential surgery. Right hip greater trochanteric fracture -Plan discussed with Dr Canas -Patient is no c/o any pain currently with her right hip despite CT showing right hip greater troch fracture. Delirium could be contributing to this. She says that she has frequently fallen so could be subacute fracture -Will allow patient to weight-bear as tolerated on the right lower extremity for transfers from bed to chair with assistance. She can try using a cane in her left hand as an assistive device since she will not be able to use her right arm to hold onto a walker. -Pain control per primary -DVT phx per primary -ICE prn Supervising Physician Co-Signing Physician Notes I saw and examined the patient, reviewed her imaging findings, reviewed her medical record, and formulated the above plan constituting the substantive portion of the visit. Patient is too sick at present for surgery. However, should she stabilize she could eventually become a candidate for surgery to fix her right shoulder. I spoke with Dr. Blair who with about her. He said he would be able to see the patient later this week and further discuss shoulder surgery as an option. In the interim recommend continued sling immobilization of the right arm. Despite the imaging findings of what appears to be an acute greater trochanter fracture she has really minimal pain and good function. Therefore I think it is in her best interest to get her out of bed to a chair however she will need maximal assistance to prevent falls given that she cannot use her right arm to hold onto the an assistive device such as a walker. Any questions feel free to contact orthopedics. History of Present Illness Reason for Consultation: Right proximal humerus fracture and right greater trochanter fracture Attending Physician: Martha De Los Santos MD History of Present Illness Kaci is a 73 yr old female who presented to ED yesterday after found unresponsive and hypoglycemic. She has sustained multiple previous falls. PMH sig for small cell lung cancer, pulmonary hypertension, COPD, hypothyroidism, PSVT, osteoporosis. She sustained right proximal humerus fracture and right greater trochanter fracture. She had left hip fracture fixed by Dr Scott this past summer which is doing well. She complains of right shoulder pain. She says she does not have any pain in her right hip. She says she got up and went to the bathroom on her own. It does not appear that she is oriented. She frequently called be Yanet and said that I looked like my mom during her visit today. She denies any N/T in her RUE or BLEs. She is not c/o elbow or wrist pain. Allergies Allergy/AdvReac Type Severity Reaction Status Date / Time adhesive tape Allergy Unknown Redness of Verified 10/24/22 16:26 Skin morphine Allergy Unknown shock, Verified 10/17/22 08:28 dspnea neomycin Allergy Unknown Unknown Verified 10/24/22 16:26 Home Medications Medication Instructions Recorded Confirmed Type metoprolol succinate 25 mg 12.5 mg (1/2 x 25 mg) PO DAILY #15 08/22/22 02/27/23 Rx tablet,extended release 24 hr tabs oxybutynin chloride 5 mg 5 mg PO QAM 09/25/22 02/27/23 History tablet,extended release 24 hr levothyroxine 100 mcg tablet 100 mcg PO DAILY #30 tabs 10/20/22 02/27/23 Rx (Synthroid) potassium chloride 10 mEq 10 meq PO DAILY #30 caps 11/02/22 02/27/23 Rx capsule,extended release umeclidinium 62.5 mcg-vilanterol 1 ea inhalation DAILY #60 ea 11/02/22 02/27/23 Rx 25 mcg/actuation powdr for inhalation (Anoro Ellipta) furosemide 20 mg tablet 20 mg PO BID 02/27/23 02/27/23 History Patient History Medical History On antineoplastic chemotherapy Recurrent falls Osteoporosis 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 The majority represents a small cell carcinoma. The minority represents a non-small cell carcinoma without any definitive adenocarcinoma or squamous cell carcinoma differentiation. Pulmonary hypertension Postsurgical hypothyroidism Reflux esophagitis PSVT (paroxysmal supraventricular tachycardia) COPD (chronic obstructive pulmonary disease) Vitamin D deficiency Surgical History Hx of lumbosacral spine surgery x3 Hx of thyroidectomy Hx of colonoscopy Family History Other Breast cancer Social History Smoking Status: Former smoker Tobacco Type: Cigarettes Cigarettes Per Day: 1 pack a week; Smoking End Date: 4 months ago; Second Hand Exposure: Yes; Do You Dip or Chew Tobacco: No; Hx Alcohol Use: No Hx Substance Use: No Preferred Language: Italian Communication Ability: Impaired Coordinator Hotels Required: No Beliefs That Will Affect Care: None Current Living Situation: Spouse Current Living Situation Comment: home Feels Safe at Home: Yes Assistive Devices: Cane Review of Systems Review of Systems: Per HPI Physical Exam Physical Exam: Pt is laying in bed. She does not appear to be oriented. She frequently calls be Yanet and says that I look like my mom. Right upper extremity: She has sling and immobilizer in place that is fitting appropriately. She has extensive, expected swelling and bruising RUE. The fractured portion of her humeral shaft is palpable just below the skin near the deltopectoral interval. However the skin is not tented. She is able to flex and extend her wrist. She can make a fist and move her all of her fingers. 2+ distal radial pulse is present. Sensation in tact distally to light touch. Cap refill < 2 seconds, Skin warm and pink BLE: No pain when palpating over right hip or left hip. Skin is in tact with no swelling or bruising present. SLR in tact bilaterally. No pain with log roll bilaterally. She is is able to do a straight leg raise with no pain. She has full internal and external, flexion BL hips with no pain. Distally neurovascularly intact Results & Data Vital Signs (Past 12 Hours) Vital Signs Temp Pulse Pulse Resp BP BP Pulse Ox 02/28/23 07:15 36.7 C 67 20 100/53 L 98 02/28/23 07:00 63 02/28/23 06:00 95/60 L 02/28/23 06:00 36.6 C 63 21 98 02/28/23 05:45 97/55 L 02/28/23 05:45 36.7 C 70 15 99 02/28/23 05:00 36.7 C 62 17 98 02/28/23 05:00 99/52 L 02/28/23 04:00 94/46 L 02/28/23 04:00 36.7 C 62 12 98 02/28/23 03:00 92/59 L 02/28/23 03:00 36.6 C 63 15 98 02/28/23 02:30 118/67 02/28/23 02:30 36.4 C L 71 20 97 02/28/23 02:00 97/53 L 02/28/23 02:00 36.2 C L 62 12 98 02/28/23 01:15 35.9 C L 59 L 13 98 02/28/23 01:15 85/45 L 02/28/23 00:00 35.7 C L 69 20 99 02/28/23 00:00 105/64 02/27/23 23:30 35.5 C L 74 24 98 02/27/23 23:30 108/72 02/27/23 23:13 62 O2 Del Method 02/28/23 07:15 Room Air 02/28/23 07:00 02/28/23 06:00 02/28/23 06:00 02/28/23 05:45 02/28/23 05:45 02/28/23 05:00 02/28/23 05:00 02/28/23 04:00 02/28/23 04:00 02/28/23 03:00 02/28/23 03:00 02/28/23 02:30 02/28/23 02:30 02/28/23 02:00 02/28/23 02:00 02/28/23 01:15 02/28/23 01:15 02/28/23 00:00 02/28/23 00:00 02/27/23 23:30 02/27/23 23:30 02/27/23 23:[address] OF THE ABDOMEN AND PELVIS WITH CONTRAST IMPRESSION: 1. Acute to subacute comminuted, displaced fracture of the greater trochanter of the right femur. Fracture involves approximately 50% cross-sectional area of the femur. Findings may reflect intertrochanteric extension of the fracture although no definite extension to the lesser trochanter by CT. Orthopedic consultation is recommended. 2. No evidence for traumatic injury to the solid abdominal viscera. 3. No bowel obstruction. No bowel wall thickening. Moderate amount of stool within the rectum. Colonic diverticulosis. No evidence for acute diverticulitis. 4. Mild right hydronephrosis, significantly decreased compared to prior CT. Urothelial thickening which could be correlated with analysis. XR shoulder RT min 2V routine FINDINGS: There is an acute fracture of the humeral neck with prominent displacement of fracture fragments. Joint spaces are well-preserved. Soft tissue swelling is seen about the shoulder. The visualized portions of the lungs are clear.
[2023-02-28] MEDS: ACETAMINOPHEN 1,000 MG/100 ML VIAL IV PRN (12:45)
[2023-02-28 14:37] LABS: Hematocrit (blood only) 23.1 % (37.0-47.0); Hemoglobin 7.8 g/dl (12.0-16.0)
--- NOTE | 2023-02-28 14:48 | Electrocardiogram Report ---
Test Reason : Blood Pressure : / mmHG Vent. Rate : 059 BPM Atrial Rate : 059 BPM P-R Int : 198 ms QRS Dur : 096 ms QT Int : 456 ms P-R-T Axes : 081 089 070 degrees QTc Int : 451 ms Sinus bradycardia with sinus arrhythmia with occasional Premature ventricular complexes Abnormal ECG When compared with ECG of 27-FEB-2023 13:02, Premature ventricular complexes are now Present ST no longer elevated in Inferior leads Nonspecific T wave abnormality no longer evident in Lateral leads Confirmed by Phi Cash ([id number]) on 02/28/2023 2:48:05 PM Referred By: REFERRED SELF Confirmed By:Rito Cash
[2023-02-28] MEDS: NOREPINEPHRINE/D5W 4 MG/250 ML PLCT IV SCH (22:03)
[2023-03-01] MEDS: ACETAMINOPHEN 1,000 MG/100 ML VIAL IV PRN (00:03)
[2023-03-01] MEDS: PIPERACILLIN/TAZOBACTAM 4.5 GM in DEXTROSE 5% MINI-B 100 ML IV SCH (03:26)
[2023-03-01 05:29] LABS: Albumin Globulin Ratio 1.3 (0.9-2); Albumin Level 2.5 gm/dl (3.4-5.0); BUN Creatinine Ratio 39.8 (10-20); Bilirubin,Total 0.6 mg/dl (0.2-1.0); Calcium 7.1 mg/dl (8.6-10.3); Creatinine Clr Calc Pharmacy 38.6 ml/min; Est GFR (African American) 75.5 ml/min; Est GFR (Non-African American) 65.2 ml/min; Magnesium 2.2 mg/dl (1.7-2.4); Phosphorus 2.7 mg/dl (2.5-4.9); Potassium 3.5 mmol/L (3.5-5.1); Total Protein 4.5 gm/dl (6.0-8.3)
[2023-03-01 06:03] LABS: Hematocrit (blood only) 21.5 % (37.0-47.0); Mean Corpuscular Hemoglobin 29.2 pg (25.0-34.0); Mean Corpuscular Hgb Conc 32.6 g/dL (32.0-36.0); Mean Corpuscular Volume 89.6 fL (80.0-100.0); Mean Platelet Volume 10.8 fL (9.4-12.4); Platelet Count 100 K/uL (130-400); RDW Coefficient of Variation 14.7 % (11.5-14.5); RDW Standard Deviation 47.4 fL (36.4-46.3); White Blood Count 15.16 K/ul (4.8-10.8)
[2023-03-01 06:04] LABS: Basophils # (auto) 0.11 K/uL (0.00-0.20); Basophils % (auto) 0.7 %; Dohle Bodies 1+; Eosinophils # (auto) 0.01 K/uL (0.00-0.50); Eosinophils % (auto) 0.1 %; Immature Granulocytes # (auto) 1.52 K/uL (0.01-0.20); Lymphocytes # (auto) 0.58 K/uL (1.20-3.40); Lymphocytes % (auto) 3.8 %; Monocytes # (auto) 0.33 K/uL (0.11-0.59); Monocytes % (auto) 2.2 %; Neutrophils # (auto) 12.61 K/uL (1.40-6.50); Neutrophils % (auto) 83.2 %
--- NOTE | 2023-03-01 07:29 | Critical Care Progress Note ---
Date of Service March 01, 2023 Assessment & Plan (1) Current smoker: (2) Shock circulatory: (3) Sepsis due to urinary tract infection: (4) TAMIKO (acute kidney injury): (5) Small cell lung cancer in adult: (6) Acute anemia: (7) Fracture, humerus: (8) Weight loss: (9) Reflux esophagitis: (10) COPD (chronic obstructive pulmonary disease): (11) Bradycardia: (12) Atrial flutter, paroxysmal: (13) Protein malnutrition: Plan Reason Critically Ill: 78-year-old female past medical history of COPD, dyslipidemia, small cell lung cancer currently on chemotherapy presented to the hospital with multiple falls and hypotension. Transferred to the ICU for further care Neuro - [facility] ICU: Negative --Metabolic encephalopathy --> improving Likely secondary to sepsis Answering all the questions appropriately CT head negative Calcium 7.3, corrected calcium to albumin within normal limit --Hypothermia TLow 31 Continue with Bear hugger Cardiac - -- Shock Multifactorial Decreased oral intake plus urinary sepsis Patient got total 2 L of fluid in the ER which is greater than 15ml/kg Random cortisol 35 Continue with vasopressor support to keep MAP greater than 65 2D echo 09/26/2022: EF 55-60%, RV normal in size and function, moderate TR, PASP 47 mmHg, grade 1 diastolic dysfunction --Bradycardia Likely from hypothermia Continue with passive warming Did have Mobitz type I on 02/28/2023, resolved on its own --History of paroxysmal A-fib On metoprolol at home Not a good candidate for anticoagulation given the frequent falls Respiratory - -- COPD with emphysema On Anoro at home --Pulmonary hypertension Combination of type I and type II --Current smoker > [id number] smoking history GI - -- Follow-up LFTs RENAL/LYTES - --S/p HAGMA Delta-delta: 1.2, as needed ion gap Lactic acid within normal limit, trace urine ketones, starvation ketosis is a possibility along with elevated BUN Monitor -- TAMIKO Monitor BUN/creatinine Avoid nephrotoxic medications Strict ins and outs ENDO - --Hypoglycemia Could be secondary to decreased oral intake Continue with D5-1/2 NS -- Hypothyroidism On levothyroxine 100 mcg on a daily basis at home TSH 0.32 HEME - -- Thrombocytopenia Could be secondary to chemo Continue to trend -- Normocytic anemia PRBC to be transfused to keep hemoglobin greater than 7 S/p 1 unit PRBC on 02/27/2023 ID - -- Septic shock with Citrobacter baraaki Pansensitive, change Zosyn to Rocephin CT chest does not show any clear infiltrate Procalcitonin 0.79 Nasal MRSA negative Random cortisol 35 Musculoskeletal - -- Acute comminuted and displaced right humeral head and neck fracture With surrounding contusion Orthopedic on board --Acute to subacute comminuted displaced fracture of the greater trochanter of the right femur Orthopedic on board --Prophylaxis VTE:IPC GI: Pantoprazole Lines: Peripheral Diet: Clear liquids --> advanced as tolerated Plan: In/out: +1.6 L, urine output 1245, +4.7 L Potassium being replaced Change D5 NS to D5 half NS at 50 mL an hour. Given hemoglobin is 7, will transfuse 1 more unit Patient is usual blood pressure is in the systolic 90s. Blood pressure MAP usually goes down when she is sleeping. Try to wean off vasopressors Zosyn will be changed to cefepime today DC Delcid Patient's blood pressure is usually on the lower side even on previous admissions. Will try to titrate off the vasopressors while keeping the MAP around 65 I have personally spent 33 minutes of critical care time in the direct management of this patient. This is a life/limb threatening event. This includes time spent evaluating patient, direct bedside care, chart review, placing orders, interpretation of diagnostic studies, discussion with consultants, patient, and family members, as well as other required patient management activities. This time is exclusive of all separately billable procedures, and teaching time and separate from and in addition to any other critical care service time. Admission and Anticipated Discharge Date Admission Date: February 27, 2023 Subjective Patient seen and examined at bedside. No acute distress, notable since overnight Patient seems to be more alert today. Answering all the questions appropriately Denied any shortness of breath, no chest pain, no headache, no nausea, no vomiting Does complain of soreness in the right arm and right leg Appetite is poor She was saturating 98% on room air. She was on 0.04 of Levophed but her MAP was in the mid 80s. I discontinued the Levophed when I entered the room. When I exited the room the MAP was still in the high 70s low 80s Patient had 1 bout of type I Mobitz yesterday which resolved on its own. No recurrence of bradycardic episodes Review of Systems 2 Review of Systems: All systems reviewed & are unremarkable except as noted in Subjective Physical Exam 2 Physical Exam: Constitutional: No acute distress, frail-appearing HEENT: EOMI, PERRLA, suprasternal scar on the neck Respiratory system: Good air entry bilaterally, no wheeze, no rhonchi, mild crackles right lower lobe CVS: S1-S2 positive, no murmurs or gallops Abdomen: Soft, nontender, nondistended, positive bowel sounds x4 Extremities: +1 pulses bilaterally radialis/ dorsalis pedis, no cyanosis, no edema Neuro: Somnolent but easily arousable, oriented to self, place and time Psych: Normal mood and affect G/U: Positive Delcid Musculoskeletal: Right shoulder bruising, right arm in sling, positive tenderness Skin: no rashes, warm and dry Lymphatic: no cervical or axillary lymphadenopathy Results & Data Results & Data Vital Signs (Past 12 Hours) Vital Signs Temp Pulse Resp BP Pulse Ox 03/01/23 06:30 36.7 C 68 18 98 03/01/23 06:30 121/69 03/01/23 06:00 123/67 03/01/23 06:00 36.8 C 70 18 96 03/01/23 05:00 36.9 C 65 17 98 03/01/23 05:00 125/66 03/01/23 04:30 37.1 C 72 17 98 03/01/23 04:30 118/67 03/01/23 04:15 37.1 C 69 26 H 97 03/01/23 04:15 106/56 L 03/01/23 04:00 130/65 03/01/23 04:00 37.2 C 74 18 100 03/01/23 03:00 113/54 L 03/01/23 03:00 36.8 C 63 15 96 03/01/23 02:45 36.7 C 66 15 96 03/01/23 02:45 123/63 03/01/23 02:30 36.6 C 70 14 97 03/01/23 02:30 111/56 L 03/01/23 02:00 36.3 C L 67 12 98 03/01/23 02:00 112/63 03/01/23 01:45 36.3 C L 62 16 97 03/01/23 01:45 97/54 L 03/01/23 01:15 145/87 H 03/01/23 01:15 36.1 C L 90 22 99 03/01/23 01:00 36.0 C L 61 19 98 03/01/23 01:00 97/54 L 03/01/23 00:39 35.7 C L 69 16 99 03/01/23 00:39 143/77 H 03/01/23 00:30 120/54 L 03/01/23 00:30 69 25 H 98 03/01/23 00:15 36.5 C 68 18 97 03/01/23 00:00 36.6 C 75 17 97 03/01/23 00:00 139/78 02/28/23 23:45 129/72 02/28/23 23:45 36.6 C 72 26 H 98 02/28/23 23:30 103/55 L 02/28/23 23:30 36.5 C 72 20 97 02/28/23 23:15 113/66 02/28/23 23:15 36.4 C L 75 31 H 97 02/28/23 23:00 36.3 C L 67 22 97 02/28/23 23:00 112/60 02/28/23 22:45 123/65 02/28/23 22:45 36.2 C L 77 22 02/28/23 22:30 36.1 C L 62 17 102/55 L 98 02/28/23 22:17 62 02/28/23 22:00 36.1 C L 62 15 99 02/28/23 22:00 125/69 02/28/23 21:40 36.1 C L 62 18 98 02/28/23 21:40 112/61 02/28/23 21:31 36.1 C L 64 24 97 02/28/23 21:31 111/56 L 02/28/23 21:00 36.0 C L 69 22 98 02/28/23 21:00 120/65 02/28/23 20:15 36.1 C L 69 24 95 02/28/23 20:15 110/66 02/28/23 19:45 36.3 C L 71 22 95 02/28/23 19:45 114/74 02/28/23 19:30 36.4 C L 59 L 28 H 98 02/28/23 19:30 108/63 Laboratory Results 03/01/23 04:36 03/01/23 04:36 Coding Level of Care Code 51330 CRITICAL CARE 1ST 30-74M Diagnoses Current smoker F17.200 Shock circulatory R57.9 Sepsis due to urinary tract infection A41.9; N39.0 TAMIKO (acute kidney injury) N17.9 Small cell lung cancer in adult C34.90 Acute anemia D64.9 Fracture, humerus S42.309A Weight loss R63.4 Reflux esophagitis K21.00 COPD (chronic obstructive pulmonary disease) J44.9 Bradycardia R00.1 Atrial flutter, paroxysmal I48.92 Protein malnutrition E46
[2023-03-01] MEDS: ICU Protocol for HYPERglycemia SCH ×3 (07:37→10:07)
[2023-03-01] MEDS ORDERED: SODIUM CHLORIDE 0.9% 250 ML IV PRN (07:55)
[2023-03-01] MEDS ORDERED: POTASSIUM CHLORIDE 20 MEQ/15 ML UDC PO STA (08:31)
[2023-03-01] MEDS: PANTOprazole 40 MG in SYRINGE 0 ML IV SCH (09:04)
[2023-03-01] MEDS: UMECLIDINIUM/VILANTEROL 62.5/25MCG 7 PUFFS/INHALER INH SCH (09:04)
--- NOTE | 2023-03-01 09:39 | Orthopedic Progress Note ---
Date of Service March 01, 2023 Assessment & Plan (1) Fracture of humeral head, right, closed: Plan: Right proximal humerus fracture -Sling in place with immobilizer strap around body -NWB RUE -Pain control per primary -ICE PRN -Recommend elevation of hand/gentle active wrist/digit ROM as patient tolerates to assist with edema -Recommend consult for Dr Scott for possible surgical intervention for reverse TSA recommended by Dr Canas. Patient would need to be medically optimized for any potential surgery. Right hip greater trochanteric fracture -Patient continues to not c/o any pain currently with her right hip despite CT showing right hip greater troch fracture. Delirium could be contributing to this. She says that she has frequently fallen so could be subacute fracture -Will allow patient to weight-bear as tolerated on the right lower extremity for transfers from bed to chair with assistance. She can try using a cane in her left hand as an assistive device since she will not be able to use her right arm to hold onto a walker. -Pain control per primary -DVT phx per primary -ICE prn Present on Admission?: Yes Admission and Anticipated Discharge Date Admission Date: February 27, 2023 Subjective Patient seen and examined at bedside this am. Nursing, Jessica present. She is receiving one unit of blood. She does not appear to be in any distress. She is alert and answering questions appropriately. She states she is not having pain in the shoulder or hip. she complains of numbness feeling in the right hand. She denies any SOB, CP, dizziness. Review of Systems Review of Systems: Please refer to HPI Physical Exam Physical Exam: General: Patient is alert in bed laying. Answering questions appropriately. Does not appear to be in any distress. Integumentary: Attention to the RUE: she has resolving ecchymosis over the RUE and swelling over the right humerus and hand. Negative for any tenting, open areas over the proximal shoulder. Negative for any necrosis of the skin. Able to palpate the proximal humerus with some tenderness which is expected.Range of motion of the shoulder or elbow was not assessed. She is able to flex and extend digits on the right hand, able to almost close fist,able to abduct/adduct digits, extend and flex wrist, although limited due to edema. She has sensation over the right UE to touch. Negative for any tenderenss over the right groin/lateral hip. She is freely moving the right leg without any grimacing or complaints of pain Results & Data Vital Signs (Past 12 Hours) Vital Signs Temp Pulse Resp BP Pulse Ox O2 Del Method O2 Del Method 03/01/23 09:13 36.6 C 65 16 119/64 98 03/01/23 08:00 Room Air 03/01/23 08:00 36.7 C 62 20 98 Room Air 03/01/23 08:00 Room Air 03/01/23 07:51 36.7 C 72 21 99 03/01/23 07:51 130/69 03/01/23 07:49 132/76 03/01/23 07:49 36.7 C 69 16 98 03/01/23 07:30 36.7 C 61 14 98 03/01/23 07:30 102/56 L 03/01/23 07:00 36.7 C 75 13 95 03/01/23 07:00 118/77 03/01/23 06:30 36.7 C 68 18 98 03/01/23 06:30 121/69 03/01/23 06:00 123/67 03/01/23 06:00 36.8 C 70 18 96 03/01/23 05:00 36.9 C 65 17 98 03/01/23 05:00 125/66 03/01/23 04:30 37.1 C 72 17 98 03/01/23 04:30 118/67 03/01/23 04:15 37.1 C 69 26 H 97 03/01/23 04:15 106/56 L 03/01/23 04:00 130/65 03/01/23 04:00 37.2 C 74 18 100 03/01/23 03:00 113/54 L 03/01/23 03:00 36.8 C 63 15 96 03/01/23 02:45 36.7 C 66 15 96 03/01/23 02:45 123/63 03/01/23 02:30 36.6 C 70 14 97 03/01/23 02:30 111/56 L 03/01/23 02:00 36.3 C L 67 12 98 03/01/23 02:00 112/63 03/01/23 01:45 36.3 C L 62 16 97 03/01/23 01:45 97/54 L 03/01/23 01:15 145/87 H 03/01/23 01:15 36.1 C L 90 22 99 03/01/23 01:00 36.0 C L 61 19 98 03/01/23 01:00 97/54 L 03/01/23 00:39 35.7 C L 69 16 99 03/01/23 00:39 143/77 H 03/01/23 00:30 120/54 L 03/01/23 00:30 69 25 H 98 03/01/23 00:15 36.5 C 68 18 97 03/01/23 00:00 36.6 C 75 17 97 03/01/23 00:00 139/78 02/28/23 23:45 129/72 02/28/23 23:45 36.6 C 72 26 H 98 02/28/23 23:30 103/55 L 02/28/23 23:30 36.5 C 72 20 97 02/28/23 23:15 113/66 02/28/23 23:15 36.4 C L 75 31 H 97 02/28/23 23:00 36.3 C L 67 22 97 02/28/23 23:00 112/60 02/28/23 22:45 123/65 02/28/23 22:45 36.2 C L 77 22 02/28/23 22:30 36.1 C L 62 17 102/55 L 98 02/28/23 22:17 62 02/28/23 22:00 36.1 C L 62 15 99 02/28/23 22:00 125/69 02/28/23 21:40 36.1 C L 62 18 98 02/28/23 21:40 112/61 Laboratory Results 03/01/23 03/01/23 02/28/23 Range/Units 06:26 04:36 23:49 WBC 15.16 H D (4.8-10.8) K/ul RBC 2.40 L (4.20-5.40) M/uL Hgb 7.0 L (12.0-16.0) g/dl Hct 21.5 L (37.0-47.0) % MCV 89.6 (80.0-100.0) fL MCH 29.2 (25.0-34.0) pg MCHC 32.6 (32.0-36.0) g/dL RDW Std Deviation 47.4 H (36.4-46.3) fL RDW Coeff of Minal 14.7 H (11.5-14.5) % Plt Count 100 L (130-400) K/uL MPV 10.8 (9.4-12.4) fL Immature Gran % (Auto) 10.0 % Neut % (Auto) 83.2 % Lymph % (Auto) 3.8 % Schuyler % (Auto) 2.2 % Eos % (Auto) 0.1 % Baso % (Auto) 0.7 % Neut # (Auto) 12.61 H (1.40-6.50) K/uL Lymph # (Auto) 0.58 L (1.20-3.40) K/uL Schuyler # (Auto) 0.33 (0.11-0.59) K/uL Eos # (Auto) 0.01 (0.00-0.50) K/uL Baso # (Auto) 0.11 (0.00-0.20) K/uL Immature Gran # (Auto) 1.52 H (0.01-0.20) K/uL Dohle Bodies 1+ Sodium 146 H (136-145) mmol/L Potassium 3.5 (3.5-5.1) mmol/L Chloride 120 H (98-107) mmol/L Carbon Dioxide 21 (21-32) mmol/L Anion Gap 5 (3-11) BUN 35 H D (6-23) mg/dl Creatinine 0.88 D (0.6-1.2) mg/dl Est Cr Clr Drug Dosing 38.6 ml/min Est GFR ( Amer) 75.5 ml/min Est GFR (Non-Af Amer) 65.2 ml/min BUN/Creatinine Ratio 39.8 H (10-20) Glucose 79 (70-99(Fasting)) mg/dl POC Glucose 97 94 (70-99) mg/dl Calcium 7.1 L (8.6-10.3) mg/dl Phosphorus 2.7 D (2.5-4.9) mg/dl Magnesium 2.2 (1.7-2.4) mg/dl Total Bilirubin 0.6 (0.2-1.0) mg/dl AST 32 (13-39) U/L ALT 25 (7-52) U/L Alkaline Phosphatase 131 H (34-104) U/L Total Creatine Kinase (26-192) U/L Total Protein 4.5 L (6.0-8.3) gm/dl Albumin 2.5 L (3.4-5.0) gm/dl Globulin 2.0 L (2.5-4.0) gm/dl Albumin/Globulin Ratio 1.3 (0.9-2) Blood Type Antibody Screen Crossmatch 02/28/23 02/28/23 02/28/23 Range/Units 19:56 16:15 14:16 WBC (4.8-10.8) K/ul RBC (4.20-5.40) M/uL Hgb 7.8 L (12.0-16.0) g/dl Hct 23.1 L (37.0-47.0) % MCV (80.0-100.0) fL MCH (25.0-34.0) pg MCHC (32.0-36.0) g/dL RDW Std Deviation (36.4-46.3) fL RDW Coeff of Minal (11.5-14.5) % Plt Count (130-400) K/uL MPV (9.4-12.4) fL Immature Gran % (Auto) % Neut % (Auto) % Lymph % (Auto) % Schuyler % (Auto) % Eos % (Auto) % Baso % (Auto) % Neut # (Auto) (1.40-6.50) K/uL Lymph # (Auto) (1.20-3.40) K/uL Schuyler # (Auto) (0.11-0.59) K/uL Eos # (Auto) (0.00-0.50) K/uL Baso # (Auto) (0.00-0.20) K/uL Immature Gran # (Auto) (0.01-0.20) K/uL Dohle Bodies Sodium (136-145) mmol/L Potassium (3.5-5.1) mmol/L Chloride (98-107) mmol/L Carbon Dioxide (21-32) mmol/L Anion Gap (3-11) BUN (6-23) mg/dl Creatinine (0.6-1.2) mg/dl Est Cr Clr Drug Dosing ml/min Est GFR ( Amer) ml/min Est GFR (Non-Af Amer) ml/min BUN/Creatinine Ratio (10-20) Glucose (70-99(Fasting)) mg/dl POC Glucose 116 H 109 H (70-99) mg/dl Calcium (8.6-10.3) mg/dl Phosphorus (2.5-4.9) mg/dl Magnesium (1.7-2.4) mg/dl Total Bilirubin (0.2-1.0) mg/dl AST (13-39) U/L ALT (7-52) U/L Alkaline Phosphatase (34-104) U/L Total Creatine Kinase (26-192) U/L Total Protein (6.0-8.3) gm/dl Albumin (3.4-5.0) gm/dl Globulin (2.5-4.0) gm/dl Albumin/Globulin Ratio (0.9-2) Blood Type Antibody Screen Crossmatch 02/28/23 02/28/23 02/28/23 Range/Units 13:18 11:07 08:29 WBC (4.8-10.8) K/ul RBC (4.20-5.40) M/uL Hgb (12.0-16.0) g/dl Hct (37.0-47.0) % MCV (80.0-100.0) fL MCH (25.0-34.0) pg MCHC (32.0-36.0) g/dL RDW Std Deviation (36.4-46.3) fL RDW Coeff of Minal (11.5-14.5) % Plt Count (130-400) K/uL MPV (9.4-12.4) fL Immature Gran % (Auto) % Neut % (Auto) % Lymph % (Auto) % Schuyler % (Auto) % Eos % (Auto) % Baso % (Auto) % Neut # (Auto) (1.40-6.50) K/uL Lymph # (Auto) (1.20-3.40) K/uL Schuyler # (Auto) (0.11-0.59) K/uL Eos # (Auto) (0.00-0.50) K/uL Baso # (Auto) (0.00-0.20) K/uL Immature Gran # (Auto) (0.01-0.20) K/uL Dohle Bodies Sodium (136-145) mmol/L Potassium (3.5-5.1) mmol/L Chloride (98-107) mmol/L Carbon Dioxide (21-32) mmol/L Anion Gap (3-11) BUN (6-23) mg/dl Creatinine (0.6-1.2) mg/dl Est Cr Clr Drug Dosing ml/min Est GFR ( Amer) ml/min Est GFR (Non-Af Amer) ml/min BUN/Creatinine Ratio (10-20) Glucose (70-99(Fasting)) mg/dl POC Glucose 121 H 103 H (70-99) mg/dl Calcium (8.6-10.3) mg/dl Phosphorus (2.5-4.9) mg/dl Magnesium (1.7-2.4) mg/dl Total Bilirubin (0.2-1.0) mg/dl AST (13-39) U/L ALT (7-52) U/L Alkaline Phosphatase (34-104) U/L Total Creatine Kinase 512 H (26-192) U/L Total Protein (6.0-8.3) gm/dl Albumin (3.4-5.0) gm/dl Globulin (2.5-4.0) gm/dl Albumin/Globulin Ratio (0.9-2) Blood Type Antibody Screen Crossmatch 02/27/23 Range/Units 14:51 WBC (4.8-10.8) K/ul RBC (4.20-5.40) M/uL Hgb (12.0-16.0) g/dl Hct (37.0-47.0) % MCV (80.0-100.0) fL MCH (25.0-34.0) pg MCHC (32.0-36.0) g/dL RDW Std Deviation (36.4-46.3) fL RDW Coeff of Minal (11.5-14.5) % Plt Count (130-400) K/uL MPV (9.4-12.4) fL Immature Gran % (Auto) % Neut % (Auto) % Lymph % (Auto) % Schuyler % (Auto) % Eos % (Auto) % Baso % (Auto) % Neut # (Auto) (1.40-6.50) K/uL Lymph # (Auto) (1.20-3.40) K/uL Schuyler # (Auto) (0.11-0.59) K/uL Eos # (Auto) (0.00-0.50) K/uL Baso # (Auto) (0.00-0.20) K/uL Immature Gran # (Auto) (0.01-0.20) K/uL Dohle Bodies Sodium (136-145) mmol/L Potassium (3.5-5.1) mmol/L Chloride (98-107) mmol/L Carbon Dioxide (21-32) mmol/L Anion Gap (3-11) BUN (6-23) mg/dl Creatinine (0.6-1.2) mg/dl Est Cr Clr Drug Dosing ml/min Est GFR ( Amer) ml/min Est GFR (Non-Af Amer) ml/min BUN/Creatinine Ratio (10-20) Glucose (70-99(Fasting)) mg/dl POC Glucose (70-99) mg/dl Calcium (8.6-10.3) mg/dl Phosphorus (2.5-4.9) mg/dl Magnesium (1.7-2.4) mg/dl Total Bilirubin (0.2-1.0) mg/dl AST (13-39) U/L ALT (7-52) U/L Alkaline Phosphatase (34-104) U/L Total Creatine Kinase (26-192) U/L Total Protein (6.0-8.3) gm/dl Albumin (3.4-5.0) gm/dl Globulin (2.5-4.0) gm/dl Albumin/Globulin Ratio (0.9-2) Blood Type A Positive Antibody Screen NEGATIVE Crossmatch See Detail (1) Fracture of humeral head, right, closed Encounter type: initial encounter Qualified Code(s): S42.291A - Other displaced fracture of upper end of right humerus, initial encounter for closed fracture
[2023-03-01] MEDS: CEFEPIME 2,000 MG in SYRINGE 0 ML IV SCH ×2 (11:07→21:50)
[2023-03-01] MEDS: CALCIUM CARBONATE 1250MG TAB PO SCH (11:15)
[2023-03-01] MEDS: LEVOTHYROXINE SODIUM 100 MCG TABLET PO SCH (11:15)
--- NOTE | 2023-03-01 16:46 | Hospitalist Progress Note ---
Date of Service March 01, 2023 Assessment & Plan (1) Fracture of greater trochanter of right femur: Plan Acute metabolic encephalopathy: Shock circulatory: Sepsis due to urinary tract infection: Patient presented with falls at home Was reported to be unresponsive with glucose of [address] did not show any acute abnormalities or fractures Was noted to be in shock on presentation, confused, Hb 6.5, right humeral and right trochanteric fractures UA s/o UTI. Urine culture reviewed. MRSA screen negative. Being managed for septic shock due to complicated UTI Was admitted to ICU initially, was on Levophed, off of Levophed since morning of 03/01. 02/28 Zosyn changed to cefepime 03/01. Follow up infectious workup including blood and urine cultures Patient back to baseline mentation WBC trending down, pt afebrile. Fracture of greater trochanter of right femur: Fracture, humerus: Severe fracture of the right humerus with intraarticular bone fragments noted on scan. Age-related osteoporosis with current pathological fracture, R humerus and R hip Per prior attending - Lexy Licona with Dr Pete informed me that Dr Canas spoke with Dr Scott who will see patient later this week Keep patient NWB RUE. Continue sling in RUE for now until Dr Scott evaluates for possible surgery Pain control WBAT for RLE per ortho. Acute on chronic anemia: Hemoglobin at baseline around 9. Admitting Hb 6.5. Likely blood loss secondary to acute fracture on background of chronic anemia likely 2/2 chemotherapy. s/p 1 PRBC, hemoglobin 7.0 in the morning. Received another unit PRBC today. Follow-up H&H at 10 PM. Monitor. Transfuse PRN to keep Hb >7 TAMIKO (acute kidney injury): Plan: Cont hemodynamic support and IVF per ICU team. Likely from septic shock Hold home diuretics Avoid nephrotoxins and monitor resolved. Other chronic medical conditions: Small cell lung cancer in adult -on carboplatin and etoposide with last treatment just a few days ago [employer]. Also on pegfilgrastim. WBC on admission at 57 K. Patient presented with septic shock, will hold all chemotherapy medications. Follow-up with oncology as an outpatient upon discharge. Current smoker: Long history of smoking, apparently she quit smoking last month, will follow. Protein malnutrition: Nutrition consult Postsurgical hypothyroidism: Continue home levothyroxine COPD: Chronic, stable. Continue home Anoro Ellipta Osteoporosis: Severe and likely cause of fractures in the setting of protein malnutrition chemotherapy. DVT prophylaxis: Contraindicated in the setting of anemia. SCDs. Full code Dispo: Palliative consult, PT/OT when able, CM to assist with DC planning. To PCU today. Admission and Anticipated Discharge Date Admission Date: February 27, 2023 Subjective Patient was seen and examined at bedside. Patient was lying in bed, on room air, resting comfortably, right upper extremity in sling, denies any pain in the right UE and right LE. Patient tolerated advancement of diet. Discussed with marketing reps sports and entertainment, patient has been off of pressors since morning, hence okay to downgrade to PCU status. Denies any chest pain or shortness of breath or dizziness. Physical Exam Physical Exam: GENERAL: Alert and oriented x3. NAD, on RA. HEENT: No pallor, no icterus. Pupils equal, round and reactive to light. Oral mucosa moist. NECK: No JVD, no neck masses. HEART: S1 and S2 heard. Regular rate and rhythm. No murmur, no gallop. RESPIRATORY SYSTEM: Normal AP diameter. No accessory muscle use. No wheezing, no crackles. ABDOMEN: Soft, bowel sounds present, nontender, no distention. CENTRAL NERVOUS SYSTEM: No facial droop. Speech is clear. Obeys simple commands. Moves extremities. EXTREMITIES: No edema, no erythema seen. RUE in sling. distal neuro vascular status wnl. Results & Data Results & Data Vital Signs (Past 12 Hours) Vital Signs Temp Pulse Resp BP Pulse Ox O2 Del Method O2 Del Method 03/01/23 15:57 68 03/01/23 15:41 36.6 C 68 15 99 03/01/23 15:41 124/82 03/01/23 15:00 36.6 C 71 20 96 03/01/23 14:00 36.6 C 67 15 98 03/01/23 13:28 36.7 C 73 20 98 03/01/23 13:28 113/70 03/01/23 13:00 36.5 C 78 20 91 03/01/23 13:00 128/68 03/01/23 12:00 36.4 C L 71 16 97 03/01/23 12:00 36.4 C L 72 16 124/78 98 03/01/23 11:15 36.4 C L 70 16 120/67 98 03/01/23 10:30 36.5 C 70 18 125/76 99 03/01/23 10:00 36.3 C L 72 16 128/72 97 03/01/23 09:45 36.4 C L 66 16 122/73 98 03/01/23 09:30 36.4 C L 70 14 132/80 100 03/01/23 09:13 36.6 C 65 16 119/64 98 03/01/23 08:00 Room Air 03/01/23 08:00 36.7 C 62 20 98 Room Air 03/01/23 08:00 Room Air 03/01/23 07:51 36.7 C 72 21 99 03/01/23 07:51 130/69 03/01/23 07:49 132/76 03/01/23 07:49 36.7 C 69 16 98 03/01/23 07:30 36.7 C 61 14 98 03/01/23 07:30 102/56 L 03/01/23 07:00 36.7 C 75 13 95 03/01/23 07:00 118/77 03/01/23 06:30 36.7 C 68 18 98 03/01/23 06:30 121/69 03/01/23 06:00 123/67 03/01/23 06:00 36.8 C 70 18 96 03/01/23 05:00 36.9 C 65 17 98 03/01/23 05:00 125/66 03/01/23 04:30 37.1 C 72 17 98 03/01/23 04:30 118/67
--- NOTE | 2023-03-01 18:51 | Orthopedic Consultation ---
Date of Consultation March 01, 2023 Assessment & Plan (1) Closed fracture of right proximal humerus: She has a significantly displaced right proximal humerus fracture. This appears minimally comminuted on x-ray and brief review of CT scan of the chest. I discussed this at length with the patient. She is obviously a very poor surgical candidate given her recent medical events and obvious chronic malnutrition. This puts her at very high risk for intraoperative complications and postoperative surgical site infection. However, given the severe displacement of her fracture, I do think she would benefit from surgical intervention if she is deemed to be medically stable by her medical team. We discussed potential surgical treatment options including ORIF versus reverse total shoulder arthroplasty. I need to get a dedicated CT scan of her right shoulder for better definition of the fracture pattern and determine what her best treatment options would be. Prior to any surgery, she would need to be medically optimized, including improvement in her hemoglobin and hematocrit. She reports that she normally uses a walker for ambulation, and advised her that she cannot weight-bear through this right arm with this injury, and this weightbearing restriction would not be changed with any type of surgical intervention. History of Present Illness Reason for Consultation: Right proximal humerus fracture, consideration for reverse total shoulder arthroplasty Attending Physician: Aiyana Wilson MD History of Present Illness Ms. Funk is a 73-year-old female who was found unresponsive at home. Per review of medical records, she has multiple recent falls, but previously had refused EMS transport. Unknown unknown mechanism of fall or injury to her right shoulder. She does have a history of small cell lung cancer, currently undergoing chemotherapy. She has been admitted to the ICU. Orthopedics was consulted for her right proximal humerus fracture. Dr. Austin asked me to see the patient for her proximal humerus fracture for consideration for reverse total shoulder arthroplasty. Patient is currently responding appropriately to questions, and is awake, alert, and oriented to person, place, and time. She does note however, that she seems to have "lost" several years of her recent memory with this episode. Allergies Allergy/AdvReac Type Severity Reaction Status Date / Time adhesive tape Allergy Unknown Redness of Verified 10/24/22 16:26 Skin morphine Allergy Unknown shock, Verified 10/17/22 08:28 dspnea neomycin Allergy Unknown Unknown Verified 10/24/22 16:26 Home Medications Medication Instructions Recorded Confirmed Type metoprolol succinate 25 mg 12.5 mg (1/2 x 25 mg) PO DAILY #15 08/22/22 02/27/23 Rx tablet,extended release 24 hr tabs oxybutynin chloride 5 mg 5 mg PO QAM 09/25/22 02/27/23 History tablet,extended release 24 hr levothyroxine 100 mcg tablet 100 mcg PO DAILY #30 tabs 10/20/22 02/27/23 Rx (Synthroid) potassium chloride 10 mEq 10 meq PO DAILY #30 caps 11/02/22 02/27/23 Rx capsule,extended release umeclidinium 62.5 mcg-vilanterol 1 ea inhalation DAILY #60 ea 11/02/22 02/27/23 Rx 25 mcg/actuation powdr for inhalation (Anoro Ellipta) furosemide 20 mg tablet 20 mg PO BID 02/27/23 02/27/23 History Patient History Medical History On antineoplastic chemotherapy Recurrent falls Osteoporosis 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 The majority represents a small cell carcinoma. The minority represents a non-small cell carcinoma without any definitive adenocarcinoma or squamous cell carcinoma differentiation. Pulmonary hypertension Postsurgical hypothyroidism Reflux esophagitis PSVT (paroxysmal supraventricular tachycardia) COPD (chronic obstructive pulmonary disease) Vitamin D deficiency Surgical History Hx of lumbosacral spine surgery x3 Hx of thyroidectomy Hx of colonoscopy Family History Other Breast cancer Social History Smoking Status: Former smoker Tobacco Type: Cigarettes Cigarettes Per Day: 1 pack a week; Smoking End Date: 4 months ago; Second Hand Exposure: Yes; Do You Dip or Chew Tobacco: No; Hx Alcohol Use: No Hx Substance Use: No Preferred Language: Tunisian Communication Ability: Impaired Inform[employer] Mdm Developer Required: No Beliefs That Will Affect Care: None Current Living Situation: Spouse Current Living Situation Comment: home Feels Safe at Home: Yes Assistive Devices: Cane Physical Exam Physical Exam: Generalized examination reveals that she is obviously frail and cachectic. She has diffuse alopecia. Examination of the right shoulder reveals moderate swelling and ecchymosis. Motor and sensory function is intact in the median, ulnar, and radial nerve distributions. Sensation is intact in the axillary nerve distribution, but axillary motor function was not tested due to her fracture. Compartments are soft and compressible. Results & Data Vital Signs (Past 12 Hours) Vital Signs Temp Pulse Resp BP Pulse Ox O2 Del Method O2 Del Method 03/01/23 18:00 75 12 03/01/23 17:00 36.8 C 74 19 03/01/23 16:00 36.7 C 76 18 03/01/23 15:57 68 03/01/23 15:41 36.6 C 68 15 99 03/01/23 15:41 124/82 03/01/23 15:00 36.6 C 71 20 96 03/01/23 14:00 36.6 C 67 15 98 03/01/23 13:28 36.7 C 73 20 98 03/01/23 13:28 113/70 03/01/23 13:00 36.5 C 78 20 91 03/01/23 13:00 128/68 03/01/23 12:00 36.4 C L 71 16 97 03/01/23 12:00 36.4 C L 72 16 124/78 98 03/01/23 11:15 36.4 C L 70 16 120/67 98 03/01/23 10:30 36.5 C 70 18 125/76 99 03/01/23 10:00 36.3 C L 72 16 128/72 97 03/01/23 09:45 36.4 C L 66 16 122/73 98 03/01/23 09:30 36.4 C L 70 14 132/80 100 03/01/23 09:13 36.6 C 65 16 119/64 98 03/01/23 08:00 Room Air 03/01/23 08:00 36.7 C 62 20 98 Room Air 03/01/23 08:00 Room Air 03/01/23 07:51 36.7 C 72 21 99 03/01/23 07:51 130/69 03/01/23 07:49 132/76 03/01/23 07:49 36.7 C 69 16 98 03/01/23 07:30 36.7 C 61 14 98 03/01/23 07:30 102/56 L 03/01/23 07:00 36.7 C 75 13 95 03/01/23 07:00 118/77 Laboratory Results Labs: Hgb/Hct 7.0/21.5 Protein 4.5 Albumin 2.5 Diagnostic Findings Previous x-rays of her right shoulder from 02/27/23 were independently interpreted by me. They show fairly severely displaced right proximal humerus fracture. It appears minimally comminuted. (1) Closed fracture of right proximal humerus Encounter type: initial encounter Fracture morphology: other fracture Fracture alignment: displaced Qualified Code(s): S42.291A - Other displaced fracture of upper end of right humerus, initial encounter for closed fracture
--- NOTE | 2023-03-01 21:33 | CT Scan Report ---
Exam(s): CT RIGHT SHOULDER Without Contrast EXAM: CT Right Upper Extremity Without Intravenous Contrast, Shoulder CLINICAL HISTORY: Reason for exam: Right proximal humerus fracture. TECHNIQUE: Axial computed tomography images of the right shoulder without intravenous contrast. CTDI is 21.38 mGy and DLP is 303.67 mGy-cm. Automated exposure control was utilized for the study. A dose lowering technique was utilized adhering to the principles of ALARA. COMPARISON: No relevant prior studies available. FINDINGS: There is a significantly comminuted and displaced fracture of the proximal humerus involving the surgical neck and tuberosities. The humeral shaft fragment is proximally migrated and anteriorly displaced, perched anterior to the humeral head fragment. The humeral head fragment remains in articulation with the glenoid. Multiple fracture fragments are scattered within and adjacent to the joint space. There is a glenohumeral joint hemarthrosis along with significant surrounding soft tissue swelling. IMPRESSION: Significantly comminuted and displaced fracture of the proximal humerus involving the surgical neck and tuberosities. Humeral shaft fragment is proximally migrated and displaced anterior to the humeral head fragment. Humeral head fragment remains in articulation with the glenoid. Comminution of the tuberosity fragments is noted. There is a large hemarthrosis and marked surrounding soft tissue swelling. Electronically signed by: Dimitry Sandoval M.D. 03/01/23 21:32 PM
[2023-03-01 23:13] LABS: Hematocrit (blood only) 27.6 % (37.0-47.0); Hemoglobin 9.3 g/dl (12.0-16.0)
[2023-03-02] MEDS ORDERED: D5W AND 1/2NSS 1,000 ML IV SCH
[2023-03-02] MEDS: ACETAMINOPHEN 1,000 MG/100 ML VIAL IV PRN (06:20)
[2023-03-02] MEDS: LEVOTHYROXINE SODIUM 100 MCG TABLET PO SCH (06:26)
[2023-03-02 07:22] LABS: Albumin Globulin Ratio 1.2 (0.9-2); Albumin Level 2.7 gm/dl (3.4-5.0); BUN Creatinine Ratio 41.5 (10-20); Bilirubin,Total 1.1 mg/dl (0.2-1.0); Calcium 7.8 mg/dl (8.6-10.3); Creatinine Clr Calc Pharmacy 67.3 ml/min; Est GFR (African American) 109.2 ml/min; Est GFR (Non-African American) 94.2 ml/min; Globulin 2.2 gm/dl (2.5-4.0); Potassium 4.6 mmol/L (3.5-5.1); Total Protein 4.9 gm/dl (6.0-8.3)
[2023-03-02] MEDS: CALCIUM CARBONATE 1250MG TAB PO SCH (07:24)
[2023-03-02] MEDS: PANTOprazole 40 MG TAB PO SCH (07:24)
[2023-03-02 07:33] LABS: Basophils # (auto) 0.04 K/uL (0.00-0.20); Basophils % (auto) 0.6 %; Dohle Bodies 2+; Eosinophils # (auto) 0.06 K/uL (0.00-0.50); Eosinophils % (auto) 0.9 %; Hemoglobin 9.4 g/dl (12.0-16.0); Immature Granulocytes # (auto) 0.14 K/uL (0.01-0.20); Immature Granulocytes % (auto) 2.1 %; Lymphocytes % (auto) 10.3 %; Mean Corpuscular Hemoglobin 29.1 pg (25.0-34.0); Mean Corpuscular Hgb Conc 32.4 g/dL (32.0-36.0); Mean Corpuscular Volume 89.8 fL (80.0-100.0); Mean Platelet Volume 10.9 fL (9.4-12.4); Monocytes # (auto) 0.25 K/uL (0.11-0.59); Monocytes % (auto) 3.7 %; Neutrophils # (auto) 5.63 K/uL (1.40-6.50); Neutrophils % (auto) 82.4 %; Platelet Count 77 K/uL (130-400); Polychromasia 1+; RDW Coefficient of Variation 15.8 % (11.5-14.5); RDW Standard Deviation 50.8 fL (36.4-46.3); Red Blood Count 3.23 M/uL (4.20-5.40); White Blood Count 6.82 K/ul (4.8-10.8)
[2023-03-02] MEDS: UMECLIDINIUM/VILANTEROL 62.5/25MCG 7 PUFFS/INHALER INH SCH (07:40)
[2023-03-02] MEDS: CEFEPIME 2,000 MG in SYRINGE 0 ML IV SCH ×2 (09:56→21:51)
[2023-03-02] MEDS: POT PHOSPHATE MONOBASIC W/ SOD TAB PO SCH ×4 (09:57→19:46)
[2023-03-02 14:12] LABS: Uric Acid, Random Urine 16 mg/dL
[2023-03-02 15:31] LABS: Hematocrit (blood only) 30.2 % (37.0-47.0); Hemoglobin 9.6 g/dl (12.0-16.0)
--- NOTE | 2023-03-02 16:57 | Hospitalist Progress Note ---
Date of Service March 02, 2023 Assessment & Plan (1) Fracture of greater trochanter of right femur: Plan Acute metabolic encephalopathy: Shock circulatory: Sepsis due to urinary tract infection: Patient presented with falls at home Was reported to be unresponsive with glucose of [address] did not show any acute abnormalities or fractures Was noted to be in shock on presentation, confused, Hb 6.5, right humeral and right trochanteric fractures UA s/o UTI. Urine culture reviewed. MRSA screen negative. Being managed for septic shock due to complicated UTI -improving, achieved hemodynamic stability. Was admitted to ICU initially, was on Levophed, off of Levophed since morning of 03/01. 02/28 Zosyn changed to cefepime 03/01. Continue with same. Follow up infectious workup including blood and urine cultures -urine culture reviewed, blood culture with no growth so far Patient back to baseline mentation WBC trending down, pt afebrile. Patient medically optimized for her much needed right shoulder surgery, patient is moderate to high risk for sx given her frailty and comorbidities. Fracture of greater trochanter of right femur: Fracture, humerus: Severe fracture of the right humerus with intraarticular bone fragments noted on scan. Age-related osteoporosis with current pathological fracture, R humerus and R hip Per prior attending - Lexy Licona with Dr Pete informed me that Dr Canas spoke with Dr Scott who will see patient later this week Keep patient NWB RUE. Continue sling in RUE for now, Ortho planning for Sx. Pain control WBAT for RLE per ortho. Acute on chronic anemia: Hemoglobin at baseline around 9. Admitting Hb 6.5. Likely blood loss secondary to acute fracture on background of chronic anemia likely 2/2 chemotherapy. s/p 2 PRBC, hemoglobin stable around 9.5 HnH in AM Monitor. Transfuse PRN to keep Hb >7 TAMIKO (acute kidney injury): Plan: Cont hemodynamic support and IVF per ICU team. Likely from septic shock Hold home diuretics Avoid nephrotoxins and monitor resolved. Other chronic medical conditions: Small cell lung cancer in adult -on carboplatin and etoposide with last treatment just a few days ago [employer]. Also on pegfilgrastim. WBC on admission at 57 K. Patient presented with septic shock, will hold all chemotherapy medications. Follow-up with oncology as an outpatient upon discharge. Current smoker: Long history of smoking, apparently she quit smoking last month, will follow. Protein malnutrition: Nutrition consult Postsurgical hypothyroidism: Continue home levothyroxine COPD: Chronic, stable. Continue home Anoro Ellipta Osteoporosis: Severe and likely cause of fractures in the setting of protein malnutrition chemotherapy. DVT prophylaxis: Contraindicated in the setting of anemia. also anticipating ortho sx. SCDs. Full code Dispo: Palliative consult, PT/OT when able, CM to assist with DC planning. Patient's given a phone call 03/02, left voicemail to call us back and ask for Dr. Wilson. Admission and Anticipated Discharge Date Admission Date: February 27, 2023 Subjective Patient was seen and examined at bedside. Patient was sitting up in bed, on room air, resting comfortably, right upper extremity in sling, denies any pain in the right UE and right LE. Patient tolerating diet well. Denies any chest pain or shortness of breath or dizziness. Reports feeling better, hemodynamically stable. Patient reports being able to walk 2 blocks with walker without getting winded or short of breath or chest pain or dizzy prior to arrival. Patient denies any heart attack or stroke or stents in the past. Outpatient chart review with no such history as well. Given patient's frailty secondary to malnutrition secondary to cancer, patient is moderate to high risk for the much needed Right shoulder surgery. Hemoglobin has been stabilized, sepsis secondary to UTI under control, blood culture with no growth for 48 hours, she has achieved hemodynamically stability. Physical Exam Physical Exam: GENERAL: Alert and oriented x3. NAD, on RA. HEENT: No pallor, no icterus. Pupils equal, round and reactive to light. Oral mucosa moist. NECK: No JVD, no neck masses. HEART: S1 and S2 heard. Regular rate and rhythm. No murmur, no gallop. RESPIRATORY SYSTEM: Normal AP diameter. No accessory muscle use. No wheezing, no crackles. ABDOMEN: Soft, bowel sounds present, nontender, no distention. CENTRAL NERVOUS SYSTEM: No facial droop. Speech is clear. Obeys simple commands. Moves extremities. EXTREMITIES: No edema, no erythema seen. RUE in sling. distal neuro vascular status wnl. Results & Data Results & Data Vital Signs (Past 12 Hours) Vital Signs Temp Pulse Pulse Resp BP Pulse Ox O2 Del Method 03/02/23 16:13 36.4 C L 67 18 96/67 L 100 Room Air 03/02/23 15:21 73 03/02/23 10:49 36.6 C 74 14 102/64 100 Room Air 03/02/23 09:42 Room Air 03/02/23 08:00 76 03/02/23 06:59 36.8 C 72 17 97/54 L 98 Room Air
[2023-03-02] MEDS ORDERED: LOPERAMIDE HCL 2 MG CAP PO STA (22:16)
[2023-03-02] MEDS: ACETAMINOPHEN 325 MG TAB PO PRN (22:51)
[2023-03-03] MEDS: LEVOTHYROXINE SODIUM 100 MCG TABLET PO SCH (05:37)
[2023-03-03 07:27] LABS: Hematocrit (blood only) 30.8 % (37.0-47.0); Hemoglobin 10.1 g/dl (12.0-16.0); Mean Corpuscular Hemoglobin 29.2 pg (25.0-34.0); Mean Corpuscular Hgb Conc 32.8 g/dL (32.0-36.0); Mean Platelet Volume 11.5 fL (9.4-12.4); Platelet Count 59 K/uL (130-400); RDW Coefficient of Variation 15.7 % (11.5-14.5); RDW Standard Deviation 50.1 fL (36.4-46.3); Red Blood Count 3.46 M/uL (4.20-5.40); White Blood Count 3.42 K/ul (4.8-10.8)
[2023-03-03 07:43] LABS: Calcium 7.3 mg/dl (8.6-10.3); Magnesium 1.8 mg/dl (1.7-2.4); Potassium 3.1 mmol/L (3.5-5.1)
[2023-03-03 07:49] LABS: BUN Creatinine Ratio 36.4 (10-20); Creatinine Clr Calc Pharmacy 82.9 ml/min; Est GFR (African American) 116.1 ml/min; Est GFR (Non-African American) 100.1 ml/min; Phosphorus 3.1 mg/dl (2.5-4.9)
[2023-03-03] MEDS ORDERED: POTASSIUM CHLORIDE CRTAB 20 MEQ TABCR PO STA (07:51)
[2023-03-03] MEDS: PANTOprazole 40 MG TAB PO SCH (08:08)
[2023-03-03] MEDS: UMECLIDINIUM/VILANTEROL 62.5/25MCG 7 PUFFS/INHALER INH SCH (08:08)
[2023-03-03] MEDS: CALCIUM CARBONATE 1250MG TAB PO SCH (08:08)
[2023-03-03] MEDS: ACETAMINOPHEN 325 MG TAB PO PRN (08:10)
[2023-03-03] MEDS: POTASSIUM CHLORIDE 10 MEQ TABCR PO SCH (08:12)
[2023-03-03] MEDS ORDERED: POTASSIUM CHLORIDE 20 MEQ/15 ML UDC PO STA (09:03)
[2023-03-03] MEDS: CEFEPIME 2,000 MG in SYRINGE 0 ML IV SCH ×2 (09:53→22:40)
--- NOTE | 2023-03-03 16:21 | Hospitalist Progress Note ---
Date of Service March 03, 2023 Assessment & Plan (1) Fracture of greater trochanter of right femur: Plan Acute metabolic encephalopathy: Shock circulatory: Sepsis due to urinary tract infection: Patient presented with falls at home Was reported to be unresponsive with glucose of [address] did not show any acute abnormalities or fractures Was noted to be in shock on presentation, confused, Hb 6.5, right humeral and right trochanteric fractures UA s/o UTI. Urine culture reviewed. MRSA screen negative. Being managed for septic shock due to complicated UTI -improving, achieved hemodynamic stability. Was admitted to ICU initially, was on Levophed, off of Levophed since morning of 03/01. 02/28 Zosyn changed to cefepime 03/01. Continue with same. Follow up infectious workup including blood and urine cultures -urine culture reviewed, blood culture with no growth so far Patient back to baseline mentation WBC trending down, pt afebrile. Patient medically optimized for her much needed right shoulder surgery, patient is moderate to high risk for sx given her frailty and comorbidities. d/w ortho, possible sx on monday. Fracture of greater trochanter of right femur: Fracture, humerus: Severe fracture of the right humerus with intraarticular bone fragments noted on scan. Age-related osteoporosis with current pathological fracture, R humerus and R hip Per prior attending - Lexy Licona with Dr Pete informed me that Dr Canas spoke with Dr Scott who will see patient later this week Keep patient NWB RUE. Continue sling in RUE for now, Ortho planning for Sx. Pain control WBAT for RLE per ortho. Acute on chronic anemia: Hemoglobin at baseline around 9. Admitting Hb 6.5. Likely blood loss secondary to acute fracture on background of chronic anemia likely 2/2 chemotherapy. s/p 2 PRBC, hemoglobin stable around 9.5 HnH in AM Monitor. Transfuse PRN to keep Hb >7 TAMIKO (acute kidney injury): Plan: Cont hemodynamic support and IVF per ICU team. Likely from septic shock Hold home diuretics Avoid nephrotoxins and monitor resolved. Other chronic medical conditions: Small cell lung cancer in adult -on carboplatin and etoposide with last treatment just a few days ago [employer]. Also on pegfilgrastim. WBC on admission at 57 K. Patient presented with septic shock, will hold all chemotherapy medications. Follow-up with oncology as an outpatient upon discharge. Current smoker: Long history of smoking, apparently she quit smoking last month, will follow. Protein malnutrition: Nutrition consult Postsurgical hypothyroidism: Continue home levothyroxine COPD: Chronic, stable. Continue home Anoro Ellipta Osteoporosis: Severe and likely cause of fractures in the setting of protein malnutrition chemotherapy. DVT prophylaxis: Contraindicated in the setting of anemia. also anticipating ortho sx. SCDs. Full code Dispo: Palliative consult, PT/OT when able, CM to assist with DC planning. Patient's given a phone call 03/02, left voicemail to call us back and ask for Dr. Wilson. Admission and Anticipated Discharge Date Admission Date: February 27, 2023 Subjective Patient was seen and examined at bedside. Patient was sitting up in bed, on room air, resting comfortably, right upper extremity in sling, denies any pain in the right UE and right LE. Patient tolerating diet well. Denies any chest pain or shortness of breath or dizziness. Reports feeling better, hemodynamically stable. Of note, Patient reports being able to walk 2 blocks with walker without getting winded or short of breath or chest pain or dizzy prior to arrival. Patient denies any heart attack or stroke or stents in the past. Outpatient chart review with no such history as well. Given patient's frailty secondary to malnutrition secondary to cancer, patient is moderate to high risk for the much needed Right shoulder surgery. Hemoglobin has been stabilized, sepsis secondary to UTI under control, blood culture with no growth for 48 hours, she has achieved hemodynamically stability. Physical Exam Physical Exam: GENERAL: Alert and oriented x3. NAD, on RA. HEENT: No pallor, no icterus. Pupils equal, round and reactive to light. Oral mucosa moist. NECK: No JVD, no neck masses. HEART: S1 and S2 heard. Regular rate and rhythm. No murmur, no gallop. RESPIRATORY SYSTEM: Normal AP diameter. No accessory muscle use. No wheezing, no crackles. ABDOMEN: Soft, bowel sounds present, nontender, no distention. CENTRAL NERVOUS SYSTEM: No facial droop. Speech is clear. Obeys simple commands. Moves extremities. EXTREMITIES: No edema, no erythema seen. RUE in sling. distal neuro vascular status wnl. Results & Data Results & Data Vital Signs (Past 12 Hours) Vital Signs Temp Pulse Pulse Resp BP Pulse Ox Pulse Ox 03/03/23 15:06 82 21 98/61 L 99 03/03/23 11:38 03/03/23 11:31 36.4 C L 72 20 94/47 L 100 03/03/23 08:16 36.4 C L 75 22 111/54 L 99 03/03/23 08:00 67 03/03/23 08:00 95 03/03/23 04:30 36.4 C L 68 18 100/62 96 O2 Del Method O2 Del Method 03/03/23 15:06 Room Air 03/03/23 11:38 Room Air 03/03/23 11:31 Room Air 03/03/23 08:16 Room Air 03/03/23 08:00 03/03/23 08:00 Room Air 03/03/23 04:30 Room Air
--- NOTE | 2023-03-03 16:48 | Orthopedic Progress Note ---
Date of Service March 03, 2023 Assessment & Plan (1) Closed fracture of right proximal humerus: Plan: She has a severely displaced and moderately comminuted right proximal humerus fracture. With the degree of displacement, comminution, and osteoporosis, I th ink that a reverse total shoulder arthroplasty would be a better surgical option rather than ORIF. I do not think that I would be able to get very good screw purchase in the very thin shell of bone in her humeral head with a plate and screw construct. This was explained in detail to the patient, and she eventually agreed to the plan after numerous questions were answered in detail regarding the procedure, postoperative activity restrictions, and recovery times. I did have a very benjamín discussion with her regarding her overall medical condition. She is a very poor, high risk surgical candidate. She is cachectic and malnourished, and this significantly increases her risk of perioperative complications, especially infection. Her hemoglobin and hematocrit are markedly improved from admission after transfusion, now 10.1/30.8, but she will certainly have a fair bit of blood loss during this large surgery without tourniquet control. However, I think she will essentially have no function in her right arm without surgical intervention. She states she is very active in the garden and around the house, and would like to accept the risk and proceed with surgery to increase her function. Will therefore plan for a right reverse total shoulder arthroplasty. Will have to get some implants shipped in from [place], and we will therefore plan for the surgery on Monday, 03/05. NPO after midnight on Monday night. Monitor blood counts to ensure she is optimized for surgery on Monday. Admission and Anticipated Discharge Date Admission Date: February 27, 2023 Subjective Patient resting comfortably. She is sitting in her chair and in no distress. She does endorse aching pain in her right shoulder. Physical Exam Physical Exam: She looks much better than she did 2 days ago. She is interacting and responding to questions appropriately. No change in the appearance or function of her right shoulder. Results & Data Vital Signs (Past 12 Hours) Vital Signs Temp Pulse Pulse Resp BP Pulse Ox Pulse Ox 03/03/23 15:06 82 21 98/61 L 99 03/03/23 11:38 03/03/23 11:31 36.4 C L 72 20 94/47 L 100 03/03/23 08:16 36.4 C L 75 22 111/54 L 99 03/03/23 08:00 67 03/03/23 08:00 95 O2 Del Method O2 Del Method 03/03/23 15:06 Room Air 03/03/23 11:38 Room Air 03/03/23 11:31 Room Air 03/03/23 08:16 Room Air 03/03/23 08:00 03/03/23 08:00 Room Air Diagnostic Findings CT scan of the right shoulder was independently interpreted by me. It shows a severely displaced and moderately comminuted right proximal humerus fracture. The humeral head fracture fragment appears to be spun about 90 degrees. It looks like this is a very thin shell of bone, with numerous tiny comminuted fracture fragments. Bone appears osteoporotic. (1) Closed fracture of right proximal humerus Encounter type: initial encounter Fracture morphology: other fracture Fracture alignment: displaced Qualified Code(s): S42.291A - Other displaced fracture of upper end of right humerus, initial encounter for closed fracture
[2023-03-04] MEDS: LEVOTHYROXINE SODIUM 100 MCG TABLET PO SCH (06:31)
[2023-03-04 07:12] LABS: Hematocrit (blood only) 25.6 % (37.0-47.0); Hemoglobin 8.4 g/dl (12.0-16.0); Mean Corpuscular Hemoglobin 29.5 pg (25.0-34.0); Mean Corpuscular Hgb Conc 32.8 g/dL (32.0-36.0); Mean Corpuscular Volume 89.8 fL (80.0-100.0); Mean Platelet Volume 10.4 fL (9.4-12.4); Platelet Count 43 K/uL (130-400); RDW Coefficient of Variation 15.2 % (11.5-14.5); RDW Standard Deviation 48.9 fL (36.4-46.3); Red Blood Count 2.85 M/uL (4.20-5.40); White Blood Count 2.63 K/ul (4.8-10.8)
[2023-03-04 07:16] LABS: Calcium 7.5 mg/dl (8.6-10.3); Creatinine Clr Calc Pharmacy 80.3 ml/min; Est GFR (African American) 113.6 ml/min; Magnesium 1.7 mg/dl (1.7-2.4); Phosphorus 2.2 mg/dl (2.5-4.9); Potassium 3.7 mmol/L (3.5-5.1)
[2023-03-04] MEDS ORDERED: FUROSEMIDE 20 MG TAB PO ONE (08:06)
[2023-03-04] MEDS: ACETAMINOPHEN 325 MG TAB PO PRN (08:06)
[2023-03-04] MEDS: UMECLIDINIUM/VILANTEROL 62.5/25MCG 7 PUFFS/INHALER INH SCH (08:07)
[2023-03-04] MEDS: POTASSIUM CHLORIDE 10 MEQ TABCR PO SCH (08:08)
[2023-03-04] MEDS: CALCIUM CARBONATE 1250MG TAB PO SCH (08:08)
[2023-03-04] MEDS: PANTOprazole 40 MG TAB PO SCH (08:08)
[2023-03-04] MEDS: METOPROLOL SUCC 25MG EXT REL TAB PO SCH (08:29)
[2023-03-04] MEDS: POT PHOSPHATE MONOBASIC W/ SOD TAB PO SCH ×4 (08:30→21:29)
[2023-03-04] MEDS: CEFEPIME 2,000 MG in SYRINGE 0 ML IV SCH ×2 (08:30→21:32)
[2023-03-04 14:33] LABS: Hematocrit (blood only) 25.4 % (37.0-47.0); Hemoglobin 8.1 g/dl (12.0-16.0)
--- NOTE | 2023-03-04 15:44 | Hospitalist Progress Note ---
Date of Service March 04, 2023 Assessment & Plan (1) Fracture of greater trochanter of right femur: Plan Acute metabolic encephalopathy: Shock circulatory: Sepsis due to urinary tract infection: Patient presented with falls at home Was reported to be unresponsive with glucose of [address] did not show any acute abnormalities or fractures Was noted to be in shock on presentation, confused, Hb 6.5, right humeral and right trochanteric fractures UA s/o UTI. Urine culture reviewed. MRSA screen negative. Being managed for septic shock due to complicated UTI -improving, achieved hemodynamic stability. Was admitted to ICU initially, was on Levophed, off of Levophed since morning of 03/01. 02/28 Zosyn changed to cefepime 03/01. Continue with same. Follow up infectious workup including blood and urine cultures -urine culture reviewed, blood culture with no growth so far Patient back to baseline mentation WBC trending down, pt afebrile. Patient medically optimized for her much needed right shoulder surgery, patient is moderate to high risk for sx given her frailty and comorbidities. d/w ortho, possible sx on monday. NPO midnight. Fracture of greater trochanter of right femur: Fracture, humerus: Severe fracture of the right humerus with intraarticular bone fragments noted on scan. Age-related osteoporosis with current pathological fracture, R humerus and R hip Per prior attending - Lexy Licona with Dr Pete informed me that Dr Canas spoke with Dr Scott who will see patient later this week Keep patient NWB RUE. Continue sling in RUE for now, Ortho planning for Sx. Pain control WBAT for RLE per ortho. Acute on chronic anemia: Hemoglobin at baseline around 9. Admitting Hb 6.5. Likely blood loss secondary to acute fracture on background of chronic anemia likely 2/2 chemotherapy. s/p 2 PRBC, hemoglobin stable around 9.5 HnH in AM Monitor. Transfuse PRN to keep Hb >7 TAMIKO (acute kidney injury): Plan: Cont hemodynamic support and IVF per ICU team. Likely from septic shock Hold home diuretics Avoid nephrotoxins and monitor resolved. Other chronic medical conditions: Small cell lung cancer in adult -on carboplatin and etoposide with last treatment just a few days ago [employer]. Also on pegfilgrastim. WBC on admission at 57 K. Patient presented with septic shock, will hold all chemotherapy medications. Follow-up with oncology as an outpatient upon discharge. Current smoker: Long history of smoking, apparently she quit smoking last month, will follow. Protein malnutrition: Nutrition consult Postsurgical hypothyroidism: Continue home levothyroxine COPD: Chronic, stable. Continue home Anoro Ellipta Osteoporosis: Severe and likely cause of fractures in the setting of protein malnutrition chemotherapy. DVT prophylaxis: Contraindicated in the setting of anemia. also anticipating ortho sx. SCDs. Full code Dispo: Palliative consult, PT/OT when able, CM to assist with DC planning. Patient's given a phone call 03/02, left voicemail to call us back and ask for Dr. Wilson. Admission and Anticipated Discharge Date Admission Date: February 27, 2023 Subjective Patient was seen and examined at bedside. Patient was sitting up in bed, on room air, resting comfortably, right upper extremity in sling, has some pain in rt shoulder. denies any pain in the right LE. Patient tolerating diet well. Denies any chest pain or shortness of breath or dizziness. Reports feeling better, hemodynamically stable. Physical Exam Physical Exam: GENERAL: Alert and oriented x3. NAD, on RA. HEENT: No pallor, no icterus. Pupils equal, round and reactive to light. Oral mucosa moist. NECK: No JVD, no neck masses. HEART: S1 and S2 heard. Regular rate and rhythm. No murmur, no gallop. RESPIRATORY SYSTEM: Normal AP diameter. No accessory muscle use. No wheezing, no crackles. ABDOMEN: Soft, bowel sounds present, nontender, no distention. CENTRAL NERVOUS SYSTEM: No facial droop. Speech is clear. Obeys simple commands. Moves extremities. EXTREMITIES: No edema, no erythema seen. RUE in sling. distal neuro vascular status wnl. Results & Data Results & Data Vital Signs (Past 12 Hours) Vital Signs Temp Pulse Resp BP BP Pulse Ox O2 Del Method 03/04/23 15:34 36.4 C L 76 15 87/52 L 97 Room Air 03/04/23 11:39 36.5 C 79 13 117/69 96 Room Air 03/04/23 08:26 36.5 C 78 18 117/69 96 Room Air 03/04/23 04:21 36.6 C 79 16 122/63 98 Room Air
[2023-03-05] MEDS ORDERED: ceFAZolin 2000MG 2,000 MG/15 ML SYR IV SCH (06:00)
[2023-03-05] MEDS: LEVOTHYROXINE SODIUM 100 MCG TABLET PO SCH (06:46)
[2023-03-05] MEDS ORDERED: ROCURONIUM BROMIDE 10 MG/ML 5 ML VIAL IV ONE (06:54)
[2023-03-05] MEDS ORDERED: PROPOFOL IV EMULSION 10 MG/ML 20 ML VIAL IV ONE (06:54)
[2023-03-05] MEDS ORDERED: ONDANSETRON INJ 2 MG/ML 2 ML VIAL ONE (06:54)
[2023-03-05] MEDS ORDERED: DEXAMETHASONE SOD INJ 4 MG/ML VIAL ONE (06:54)
[2023-03-05] MEDS ORDERED: LIDOCAINE 2% 2 ML VIAL/AMP(20MG/ML) INFIL ONE (06:54)
[2023-03-05] MEDS ORDERED: fentaNYL citrate PF 100 MCG/2 ML VIAL ONE (06:55)
[2023-03-05] MEDS ORDERED: MIDAZOLAM HCL 1 MG/ML 2ML VIAL ONE (06:55)
[2023-03-05] MEDS: CALCIUM CARBONATE 1250MG TAB PO SCH (07:07)
[2023-03-05] MEDS: METOPROLOL SUCC 25MG EXT REL TAB PO SCH (07:07)
[2023-03-05] MEDS: PANTOprazole 40 MG TAB PO SCH (07:07)
[2023-03-05] MEDS: POTASSIUM CHLORIDE 10 MEQ TABCR PO SCH (07:08)
[2023-03-05] MEDS: UMECLIDINIUM/VILANTEROL 62.5/25MCG 7 PUFFS/INHALER INH SCH (07:29)
--- NOTE | 2023-03-05 08:00 | History & Physical Bridge Note ---
Date of Service March 05, 2023 History & Physical Bridge Note I have examined the patient, reviewed the History & Physical and in the interval since the performance of the History & Physical I have noted the following changes of clinical significance: no changes noted Risks, benefits, and alternatives of surgery were explained in detail. The surgical procedure, as well as postoperative recovery and rehabilitation, was also explained in detail. Risks include bleeding; infection; damage to surrounding structures such as nerves, blood vessels, and tendons that run in the area; persistent pain, stiffness, weakness; nonunion; malunion; hardware failure; dislocation; brachial plexus palsy; or need for further surgery. The patient understands all of this and wishes to proceed with surgery. Informed consent was obtained.
[2023-03-05] MEDS ORDERED: ONDANSETRON INJ 2 MG/ML 2 ML VIAL IV PRN ×2 (08:01→12:19)
[2023-03-05] MEDS ORDERED: HYDROmorphone INJ 1 MG/ML SYRINGE IV PRN (08:01)
[2023-03-05] MEDS ORDERED: PROMETHAZINE HCL 6.25 MG in SODIUM CHLORIDE 0.9% 50 ML IV PRN (08:01)
[2023-03-05] MEDS ORDERED: fentaNYL citrate PF 100 MCG/2 ML VIAL IV PRN (08:01)
[2023-03-05] MEDS ORDERED: ATROPINE SULFATE 0.1 MG/ML 10ML SYR IV PRN (08:01)
[2023-03-05] MEDS ORDERED: ePHEDrine sulfate 50 MG/ML AMP IV PRN (08:01)
--- NOTE | 2023-03-05 08:01 | Anesthesiology Consultation ---
Date of Service March 05, 2023 Assessment & Plan Chart Review Chart Review: Acceptable Risk for Surgery and Patient NOT seen in Pre Admission Testing Consults Requested none ASA ASA4 Proposed Anesthesia Anesthesia Type: General Risk / Benefits Reviewed With: PT / POA / Parent / Guardian, Accepts Plan and Informed Consent Obtained History Surgery Operation Date: 03/05/23 07:30 Proposed Procedures p Right Reverse Total Shoulder Arthroplasty - Ernesto Scott M.D. Height/Weight Height: 5 ft 5 in Weight: 47.5 kg Allergies Allergy/AdvReac Type Severity Reaction Status Date / Time adhesive tape Allergy Unknown Redness of Verified 10/24/22 16:26 Skin morphine Allergy Unknown shock, Verified 10/17/22 08:28 dspnea neomycin Allergy Unknown Unknown Verified 10/24/22 16:26 Medications Home Medications Medication Instructions Recorded Confirmed Last Taken metoprolol succinate 25 mg 12.5 mg (1/2 x 25 mg) PO DAILY #15 08/22/22 02/27/23 10/12/22 tablet,extended release 24 hr tabs oxybutynin chloride 5 mg 5 mg PO QAM 09/25/22 02/27/23 10/12/22 tablet,extended release 24 hr levothyroxine 100 mcg tablet 100 mcg PO DAILY #30 tabs 10/20/22 02/27/23 Unknown (Synthroid) potassium chloride 10 mEq 10 meq PO DAILY #30 caps 11/02/22 02/27/23 Unknown capsule,extended release umeclidinium 62.5 mcg-vilanterol 1 ea inhalation DAILY #60 ea 11/02/22 02/27/23 Unknown 25 mcg/actuation powdr for inhalation (Anoro Ellipta) furosemide 20 mg tablet 20 mg PO BID 02/27/23 02/27/23 Unknown Active Medications Generic Name Dose Route Start Last Admin Trade Name Freq PRN Reason Stop Dose Admin Acetaminophen 650 mg 03/02/23 22:17 03/04/23 08:06 Acetaminophen 325 Mg Tab PO 04/01/23 22:16 650 mg Q4H PRN Administration Pain or Fever Calcium Carbonate 1,250 mg 03/01/23 11:00 03/05/23 07:07 Calcium Carbonate 1250mg Tab PO 03/31/23 10:59 Not Given DAILY KVNG Dextrose 25 - 50 ml 02/28/23 00:15 02/28/23 00:20 Dextrose 50% 50 Ml Syringe IV 03/30/23 00:14 50 ml UD PRN Administration Hypoglycemia Protocol Protocol Cefepime HCl 2,000 mg/ Syringe 20 mls @ 5 mls/min 03/01/23 10:00 03/04/23 21:32 IV 03/11/23 09:59 5 mls/min Q12H KVNG Administration Levothyroxine Sodium 100 mcg 03/01/23 11:00 03/05/23 06:46 Levothyroxine Sodium 100 Mcg Tablet PO 03/31/23 10:59 100 mcg DAILYBB KVNG Administration Metoprolol Succinate 12.5 mg 03/04/23 09:00 03/05/23 07:07 Metoprolol Succ 25mg Ext Rel Tab PO 04/03/23 08:59 Not Given DAILY KVNG Pantoprazole Sodium 40 mg 03/02/23 09:00 03/05/23 07:07 Pantoprazole 40 Mg Tab PO 04/01/23 08:59 Not Given DAILY KVNG Potassium Chloride 10 meq 03/03/23 09:00 03/05/23 07:08 Potassium Chloride 10 Meq Tabcr PO 04/02/23 08:59 Not Given DAILY KVNG Umeclidinium/Vilanterol 1 puffs 02/28/23 09:00 03/05/23 07:29 Umeclidinium/Vilanterol 62.5/25mcg 7 Puffs/Inhaler INH 03/30/23 08:59 Not Given DAILY KVNG NPO Date Last Intake of Fluids: 03/05/23 Time Last Intake of Fluids: 06:00 Last Intake of Fluids Comment: "thyroid pill with sips of water" Date Last Intake of Solids: 03/04/23 Time Last Intake of Solids: 18:00 Past Medical History Medical History On antineoplastic chemotherapy Recurrent falls Osteoporosis 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 The majority represents a small cell carcinoma. The minority represents a non-small cell carcinoma without any definitive adenocarcinoma or squamous cell carcinoma differentiation. Pulmonary hypertension Postsurgical hypothyroidism Reflux esophagitis PSVT (paroxysmal supraventricular tachycardia) COPD (chronic obstructive pulmonary disease) Vitamin D deficiency Exercise / Class Metabolic Activity II 4-5 Yardwork/Stairs/Walk up hill Past Family History Family History Other Breast cancer Past Surgical History Surgical History Hx of lumbosacral spine surgery x3 Hx of thyroidectomy Hx of colonoscopy Past Anesthesia History No Hx of Anesthesia Complications and No Family Hx of Anesthesia Complications History of PONV No Hx of PONV and No Hx of Motion Sickness Social History Smoking Status: Former smoker tobacco type: cigarettes Smoking cigarettes per day: 1 pack a week Do You Dip or Chew Tobacco: No Smoking End Date: 4 months ago Hx Alcohol Use: No Hx Substance Use: No substance use type: does not use Physical Exam Vital Signs Last Vital Signs Temp 36.6 C 03/05/23 07:28 Pulse 79 03/05/23 07:28 Resp 16 03/05/23 07:28 BP 135/78 03/05/23 07:28 Pulse Ox 98 03/05/23 07:28 O2 Del Method Room Air 03/05/23 07:28 Constitutional + cachectic ENMT Mouth: + dentures (partials) Thyromental Distance: > or= 3.5 Finger Breadths Mallampati Class: II Neck normal visual inspection Respiratory normal respiratory effort Auscultation: lungs clear to auscultation bilaterally and + diminished lung sounds Cardiovascular Rate/Rhythm: regular rate and regular rhythm Psychiatric Orientation: alert Testing Laboratory Results 03/04/23 14:13 03/04/23 06:36 Urine Color Yellow 02/27/23 Unknown Urine Appearance Turbid (Clear) A 02/27/23 Unknown Urine pH 5.0 (4.5-7.5) 02/27/23 Unknown Ur Specific [place] 1.033 (1.000-1.030) H 02/27/23 Unknown Urine Protein Trace (Negative) H 02/27/23 Unknown Urine Glucose (UA) Negative (Negative) 02/27/23 Unknown Urine Ketones Negative (Negative) 02/27/23 Unknown Urine Nitrite Positive (Negative) A 02/27/23 Unknown Ur Leukocyte Esterase 3+ (Negative) H 02/27/23 Unknown Urine WBC (Auto) >30 /hpf (0-5) H 02/27/23 Unknown Urine RBC (Auto) 0-4 /hpf (0-4) 02/27/23 Unknown U Hyaline Cast (Auto) 1-5 /lpf (0-5) 02/27/23 Unknown U Epithel Cells (Auto) 20-30 /lpf (0-5) H 02/27/23 Unknown Urine Bacteria (Auto) 2+ (Negative) H 02/27/23 Unknown Blood Type A Positive 02/27/23 14:51 Antibody Screen NEGATIVE 02/27/23 14:51 02/27/23 14:51 Aerobic Blood Culture - Final Blood No growth in Aerobic bottle after 5 days. Anaerobic Blood Culture - Final No growth in Anaerobic bottle after 5 days. 02/27/23 14:51 Aerobic Blood Culture - Final Blood No growth in Aerobic bottle after 5 days. Anaerobic Blood Culture - Final No growth in Anaerobic bottle after 5 days. 02/27/23 Unknown Urine Culture - Final Urine,Indwelling Cath Citrobacter braakii 02/27/23 15:04 Urine Culture - Final Urine,Indwelling Cath Citrobacter braakii
[2023-03-05] MEDS ORDERED: LIDOCAINE 1% LOCAL 20 ML VIAL ONE (08:26)
[2023-03-05] MEDS ORDERED: BUPIVACAINE 0.5 % 5 MG/1 ML MPF 30ML VIAL ONE (08:26)
[2023-03-05] MEDS ORDERED: ceFAZolin 330 MG/ML 1 GM VIAL ONE (08:34)
[2023-03-05] MEDS ORDERED: ePHEDrine sulfate 50 MG/5 ML SYR ONE (08:43)
[2023-03-05] MEDS ORDERED: ePHEDrine sulfate 50 MG/ML AMP ONE (08:43)
[2023-03-05] MEDS ORDERED: PHENYLEPHRINE 100MCG/ML 10ML SYR IV ONE (08:43)
[2023-03-05] MEDS ORDERED: TRANEXAMIC ACID / 0.7% NACL 1,000 MG/100 ML BAG IV ONE (09:19)
--- NOTE | 2023-03-05 11:21 | Operative Report ---
Post Operative Report Pre & Post Diagnosis Operation Date: 03/05/23 07:30 Pre-Op Diagnosis: Right shoulder comminuted, severely displaced proximal humerus fracture Post-Op Diagnosis: Right shoulder comminuted, severely displaced proximal humerus fracture I identified the patient and participated in the time-out.: Yes Procedure Operation Date: 03/05/23 07:30 Actual Procedures Right press-fit reverse total shoulder arthroplasty for comminuted proximal humerus fracture ([id number] - 22) - Ernesto Scott M.D. Surgeon Ernesto Scott MD Cable Splicer Assistant Marty Jansen PA-C Estimated Blood Loss 75 Findings Consistent with Post-Op Diagnosis Specimens None Drains None Anesthesia Type General Complications none Disposition Disposition: Recovery Room Indications Ms. Funk is a 73-year-old female who injured her right shoulder during a presumed ground-level fall several days ago; mechanism of injury is unknown as she has no recollection of the event. History, clinical exam, and imaging were consistent with the above diagnosis. Risks, benefits, and alternatives of surgery were explained in detail. The patient understood all this and wished to proceed. Description of Procedure Components Implanted: Tornier Reverse Total Shoulder implants Perform glenoid baseplate: 25mm, 15 degree full wedge with 6.5mm central screw and 5.0mm peripheral screws x 4 Glenosphere: 36mm standard Perform Fracture humeral stem: [id number] with distal cross-locking screw Polyethylene insert: 36mm, + 0 mm thickness, retentive Patient was identified in the preoperative holding area. Operative extremity was marked. Regional blockade was given by the Anesthesia Staff. Patient was then brought back to the operating room, and general anesthesia was induced without complication. Appropriate weight-based dose of Ancef was infused intravenously for antibiotic prophylaxis. The patient was then placed in the beachchair position. Right arm was then prepped and draped in a standard sterile fashion using Chlorhexidine prep. A standard deltopectoral incision was made through the skin and subcutaneous tissue. Immediately noted was severe anterior displacement of the humeral shaft fracture fragment, protruding through and severely disrupting the anterior deltoid. The cephalic vein was identified and retracted medially. Small branches to the deltoid were coagulated as necessary. The biceps tendon was noted to be ruptured at the level of the fracture due to severe fracture displacement. The bicipital grove was palpated proximally and the rotator interval was opened. The proximal portion of the biceps tendon was excised. The comminuted proximal humerus fracture was then inspected. The infraspinatus tendon attached to the greater tuberosity fragment, as well as the subscapularis tendon attached to the lesser tuberosity fragment were identified and mobilized. An osteotome was used longitudinally along the bicipital groove to separate the greater tuberosity fragments from the lesser tuberosity fragments. The remnants of the supraspinatus were excised back to the level of the glenoid rim. The humeral head articular fragment was excised as 1 large fragment; it was completely devoid of soft tissue attachments. Bone graft was obtained from the humeral head fragment for later placement into the humeral stem to aid with healing of the tuberosity fracture fragments. I then placed two #5 FiberWire sutures into each of the greater and lesser tuberosity fracture fragments for mobilization, retraction, and later fixation back to the humeral stem. I then turned my attention to the glenoid. The proximal stump of the biceps tendon was excised, along with the labrum circumferentially around the glenoid. There was some posterior-superior glenoid wear noted, and I therefore decided to use a 15 degree wedge augmented baseplate. The glenoid drill guide was then positioned on the glenoid, and the guidepin was then inserted in an appropriate position. The reamer was then inserted over the guidepin and the glenoid was reamed to an appropriate depth. The central screw hole was drilled, and appropriate length 6.5mm central screw was selected and assembled into the baseplate. The baseplate was then implanted into place by tightening down the central screw. Peripheral 5mm nonlocking screws were placed for additional compression of the baseplate, and then additional locking 5mm peripheral screws were placed to complete fixation of the baseplate. Glenosphere was then impacted and secured to the baseplate. After the glenoid component was complete, I then passed the deep limbs of the FiberWire sutures from the lesser tuberosity and subscapularis through the infraspinatus and around the greater tuberosity. I then opened the humeral canal and sequentially broached to an appropriate size. I set the rotation at 20-25 degrees of retroversion and I used the greater and lesser tuberosity fracture fragments as a guide to the appropriate height for the stem. Trial reduction was carried out to ensure proper soft tissue tension with the selected humeral height. Height alignment guide was then set and saved for final implant positioning. The humeral canal was irrigated and suctioned. Two drill holes were then placed into the lateral cortex of the humeral shaft, and an additional #5 FiberWire suture was placed through these holes for fixation of the tuberosity fragments. Final humeral implant was opened, and the previously obtained bone graft was inserted into the metaphyseal bone graft window in the proximal aspect of the humeral stem. I then impacted the humeral stem in appropriate height and rotation corresponding to the previously set height and alignment guides. Targeting arm was used to drill and insert a distal locking screw for additional rotational control of the stem. The deep limbs of the greater tuberosity FiberWire sutures were then passed around the medial aspect of the stem. I then trialed humeral polyethylene inserts to achieve proper stability of the shoulder. Trial spacer was then removed and the final spacer and polyethylene insert were implanted and secured to the humeral stem. I then reduced the shoulder and took it through full range of motion to ensure good stability and acceptable motion. I then proceeded with fixation of the tuberosity fracture fragments. The greater tuberosity was reduced and secured first, followed by the lesser tuberosity cerclage sutures. I then used the suture in the lateral humeral shaft and passed these through the subscapularis and infraspinatus tendons to provide vertical stability of the tuberosity fragments. I then took the shoulder through range of motion to ensure that the tuberosity fragments moved as a unit with the humeral stem with good fracture reduction and good stability and motion of the shoulder. Wound was then copiously irrigated with sterile saline. Deep fascia was closed with 0 V-lock suture. Subcutaneous tissue was closed with 2-0 V-lock, and skin was closed with 3-0 V-lock. Skin was then sealed with Dermabond. Sterile dressings were then applied with a waterproof silver-impregnated dressing, and the arm was placed into a sling. The patient was awakened from anesthesia and taken to the Post Anesthesia Care Unit in stable condition. There were no immediate complications from the procedure. I was present and scrubbed for the entire procedure, with the exception of final skin closure and dressing application. This was a reverse total shoulder arthroplasty for a severely comminuted and displaced proximal humerus fracture. This was a much more difficult total shoulder replacement than a standard reverse total shoulder arthroplasty. This required removal numerous comminuted fracture fragments, fixation of greater and lesser tuberosity fragments, bone grafting, and cross-locking of the humeral stem. This required an approximately 30% longer incision than a standard shoulder replacement, and about 100% longer time to complete. This procedure therefore qualifies for 22 modifier. Due to the complex nature of the procedure, the entire surgery was performed with the operational assistance of Marty Jansen PA-C. The certified nursing assistant, under direct supervision, was involved in the performance of all aspects of the surgical procedure including hemostasis, tissue incision and retraction, instrument management, patient positioning, and wound closure. I attest to the content of the Intraoperative Record and any orders documented therein. Any exceptions are noted below.
--- NOTE | 2023-03-05 12:13 | XRay Report ---
RIGHT SHOULDER 2 VIEWS CLINICAL HISTORY: Postoperative examination. FINDINGS: 2 portable views of the right shoulder are compared to study dated 02/27/2023. The skeletal structures are osteopenic. A right shoulder arthroplasty is in near anatomic alignment. No acute fra cture is seen. The acromioclavicular joint is maintained. Subcutaneous gas and soft tissue swelling o verlying the right shoulder are expected postsurgical changes. The imaged right lung parenchyma appea rs clear. Surgical clips are seen in the lower neck. IMPRESSION: Expected postsurgical findings status post right shoulder arthroplasty. No acute fracture is seen. Electronically signed by: Valentin Willard M.D. 03/05/2023 12:11 PM
[2023-03-05] MEDS ORDERED: ALUMINUM/MAGNESIUM SUSP 30 ML UDC PO PRN (12:19)
[2023-03-05] MEDS ORDERED: METOCLOPRAMIDE HCL INJ 5 MG/ML 2 ML VIAL IV PRN (12:19)
[2023-03-05] MEDS ORDERED: NALOXONE HCL 0.4 MG/1 ML VIAL/CARP IV PRN (12:19)
[2023-03-05] MEDS ORDERED: bisacodyL 10 MG SUPP PR PRN (12:19)
[2023-03-05] MEDS ORDERED: SODIUM CHLORIDE 0.9% 1,000 ML IV SCH (12:19)
[2023-03-05] MEDS ORDERED: MAGNESIUM HYDROXIDE SUSP 30 ML UDC PO PRN (12:19)
[2023-03-05] MEDS: CEFEPIME 2,000 MG in SYRINGE 0 ML IV SCH ×2 (12:20→21:08)
[2023-03-05] MEDS: oxyCODONE HCL IR 5 MG TAB (IMMEDIATE RELEASE) PO PRN (13:12)
[2023-03-05] MEDS: ACETAMINOPHEN 500 MG TAB PO SCH ×2 (13:12→21:24)
[2023-03-05 14:25] LABS: Hematocrit (blood only) 27.4 % (37.0-47.0); Hemoglobin 8.5 g/dl (12.0-16.0); Mean Corpuscular Hemoglobin 28.9 pg (25.0-34.0); Mean Corpuscular Volume 93.2 fL (80.0-100.0); Mean Platelet Volume 12.2 fL (9.4-12.4); Platelet Count 33 K/uL (130-400); RDW Coefficient of Variation 15.2 % (11.5-14.5); RDW Standard Deviation 51.4 fL (36.4-46.3); Red Blood Count 2.94 M/uL (4.20-5.40); White Blood Count 2.51 K/ul (4.8-10.8)
[2023-03-05 14:45] LABS: BUN Creatinine Ratio 35.6 (10-20); Calcium 7.1 mg/dl (8.6-10.3); Creatinine Clr Calc Pharmacy 83.5 ml/min; Est GFR (African American) 115.2 ml/min; Est GFR (Non-African American) 99.4 ml/min; Magnesium 1.5 mg/dl (1.7-2.4); Phosphorus 3.6 mg/dl (2.5-4.9); Potassium 3.1 mmol/L (3.5-5.1)
[2023-03-05] MEDS: POTASSIUM CHLORIDE CRTAB 20 MEQ TABCR PO SCH ×2 (16:07→19:23)
[2023-03-05] MEDS: ceFAZolin 2000MG 2,000 MG/15 ML SYR IV SCH (16:09)
[2023-03-05] MEDS: HYDROmorphone INJ 1 MG/ML SYRINGE IV PRN (16:12)
[2023-03-05] MEDS: MAGNESIUM SULFATE / D5W 1 GM/100 ML BAG IV SCH ×2 (16:14→18:39)
--- NOTE | 2023-03-05 16:44 | Hospitalist Progress Note ---
Date of Service March 05, 2023 Assessment & Plan (1) Fracture of greater trochanter of right femur: Plan Acute metabolic encephalopathy: Shock circulatory: Sepsis due to urinary tract infection: Patient presented with falls at home Was reported to be unresponsive with glucose of [address] did not show any acute abnormalities or fractures Was noted to be in shock on presentation, confused, Hb 6.5, right humeral and right trochanteric fractures UA s/o UTI. Urine culture reviewed. MRSA screen negative. Being managed for septic shock due to complicated UTI -improving, achieved hemodynamic stability. Was admitted to ICU initially, was on Levophed, off of Levophed since morning of 03/01. 02/28 Zosyn changed to cefepime 03/01. Continue with same. Follow up infectious workup including blood and urine cultures -urine culture reviewed, blood culture with no growth so far Patient back to baseline mentation WBC trending down, pt afebrile. Fracture of greater trochanter of right femur: Fracture, humerus: Severe fracture of the right humerus with intraarticular bone fragments noted on scan. Age-related osteoporosis with current pathological fracture, R humerus and R hip Keep patient NWB RUE. Continue sling in RUE. Status post right reverse TSA 03/05/2023. Pain control WBAT for RLE per ortho. Acute on chronic anemia: Hemoglobin at baseline around 9. Admitting Hb 6.5. Likely blood loss secondary to acute fracture on background of chronic anemia likely 2/2 chemotherapy. s/p 2 PRBC, hemoglobin stable around 9 HnH in AM Monitor. Transfuse PRN to keep Hb >7 TAMIKO (acute kidney injury): Plan: Cont hemodynamic support and IVF per ICU team. Likely from septic shock Hold home diuretics Avoid nephrotoxins and monitor resolved. 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 WBC on admission at 57 K. Patient presented with septic shock, will hold all chemotherapy medications. Follow-up with oncology as an outpatient upon discharge. Current smoker: Long history of smoking, apparently she quit smoking last month, will follow. Protein malnutrition: Nutrition consult Postsurgical hypothyroidism: Continue home levothyroxine COPD: Chronic, stable. Continue home Anoro Ellipta Osteoporosis: Severe and likely cause of fractures in the setting of protein malnutrition chemotherapy. DVT prophylaxis: Contraindicated in the setting of anemia. also anticipating ortho sx. SCDs. Full code Dispo: Palliative consult, PT/OT when able, CM to assist with DC planning. Admission and Anticipated Discharge Date Admission Date: February 27, 2023 Subjective Patient was seen and examined at bedside. Patient was evaluated after right reverse total shoulder arthroplasty. Patient reports pain at operative site. Awaiting pain medication. Patient was lying in bed, on room air, resting comfortably, right upper extremity in sling. Denies any pain in the right LE. Resume diet. Denies any chest pain or shortness of breath or dizziness. Reports feeling better, hemodynamically stable. Physical Exam Physical Exam: GENERAL: Alert and oriented x3. NAD, on RA. HEENT: No pallor, no icterus. Pupils equal, round and reactive to light. Oral mucosa moist. NECK: No JVD, no neck masses. HEART: S1 and S2 heard. Regular rate and rhythm. No murmur, no gallop. RESPIRATORY SYSTEM: Normal AP diameter. No accessory muscle use. No wheezing, no crackles. ABDOMEN: Soft, bowel sounds present, nontender, no distention. CENTRAL NERVOUS SYSTEM: No facial droop. Speech is clear. Obeys simple commands. Moves extremities. EXTREMITIES: No edema, no erythema seen. RUE in sling. distal neuro vascular status wnl. Right shoulder with clean dressing without soakage. Results & Data Results & Data Vital Signs (Past 12 Hours) Vital Signs Temp Pulse Pulse Pulse Resp BP BP 03/05/23 16:18 80 16 121/80 03/05/23 15:00 100/50 L 03/05/23 15:00 67 17 03/05/23 14:51 77 19 03/05/23 14:51 92/63 L 03/05/23 14:49 03/05/23 14:00 80 17 03/05/23 13:49 03/05/23 13:01 76 15 03/05/23 13:01 98/50 L 03/05/23 13:00 73 14 03/05/23 12:47 03/05/23 12:44 03/05/23 12:30 119/52 L 03/05/23 12:30 73 19 03/05/23 12:25 92/57 L 03/05/23 12:25 80 18 03/05/23 12:19 03/05/23 12:13 98/65 L 03/05/23 12:13 03/05/23 12:00 72 18 101/57 L 03/05/23 11:50 72 17 108/67 03/05/23 11:40 75 14 99/63 L 03/05/23 11:30 80 20 94/64 L 03/05/23 11:20 84 19 107/80 03/05/23 11:10 36.2 C L 84 21 99/76 L 03/05/23 11:02 35.6 C L 75 25 H 113/69 03/05/23 07:28 36.6 C 79 16 BP Pulse Ox O2 Del Method O2 Flow Rate 03/05/23 16:18 95 Room Air 03/05/23 15:00 03/05/23 15:00 95 03/05/23 14:51 100 03/05/23 14:51 03/05/23 14:49 Room Air 03/05/23 14:00 95 03/05/23 13:49 Room Air 03/05/23 13:01 03/05/23 13:01 03/05/23 13:00 99 03/05/23 12:47 Room Air 03/05/23 12:44 Room Air 03/05/23 12:30 03/05/23 12:30 95 03/05/23 12:25 03/05/23 12:25 95 03/05/23 12:19 Room Air 03/05/23 12:13 03/05/23 12:13 99 03/05/23 12:00 98 Room Air 0 03/05/23 11:50 97 Room Air 0 03/05/23 11:40 98 Room Air 0 03/05/23 11:30 100 Room Air 0 03/05/23 11:20 100 Oxymask 2 03/05/23 11:10 90 Oxymask 4 03/05/23 11:02 100 Oxymask 6 03/05/23 07:28 135/78 98 Room Air
[2023-03-05] MEDS ORDERED: TRANEXAMIC ACID / 0.7% NACL 1,000 MG/100 ML BAG IV SCH (17:30)
[2023-03-05] MEDS: SENNA 8.6 MG TAB PO SCH (21:24)
[2023-03-05] MEDS: DOCUSATE SODIUM 100 MG CAP PO SCH (21:24)
[2023-03-06] MEDS: ceFAZolin 2000MG 2,000 MG/15 ML SYR IV SCH (02:42)
[2023-03-06] MEDS: LEVOTHYROXINE SODIUM 100 MCG TABLET PO SCH (06:27)
[2023-03-06] MEDS: ACETAMINOPHEN 500 MG TAB PO SCH ×3 (06:27→22:32)
[2023-03-06] MEDS: DOCUSATE SODIUM 100 MG CAP PO SCH ×2 (07:35→21:54)
[2023-03-06 08:23] LABS: BUN Creatinine Ratio 29.8 (10-20); Calcium 7.6 mg/dl (8.6-10.3); Creatinine Clr Calc Pharmacy 79.9 ml/min; Est GFR (African American) 113.6 ml/min; Potassium 4.3 mmol/L (3.5-5.1)
[2023-03-06 08:38] LABS: Basophils # (auto) 0.03 K/uL (0.00-0.20); Basophils % (auto) 0.6 %; Dohle Bodies 2+; Eosinophils # (auto) 0.03 K/uL (0.00-0.50); Eosinophils % (auto) 0.6 %; Hematocrit (blood only) 21.7 % (37.0-47.0); Immature Granulocytes # (auto) 0.05 K/uL (0.01-0.20); Lymphocytes # (auto) 0.67 K/uL (1.20-3.40); Lymphocytes % (auto) 13.5 %; Mean Corpuscular Hgb Conc 32.3 g/dL (32.0-36.0); Neutrophils % (auto) 72.3 %; Platelet Count 43 K/uL (130-400); Polychromasia 1+; RDW Coefficient of Variation 14.9 % (11.5-14.5); RDW Standard Deviation 48.5 fL (36.4-46.3); Red Blood Count 2.41 M/uL (4.20-5.40); White Blood Count 4.98 K/ul (4.8-10.8)
[2023-03-06] MEDS: METOPROLOL SUCC 25MG EXT REL TAB PO SCH (09:20)
[2023-03-06] MEDS: CALCIUM CARBONATE 1250MG TAB PO SCH (09:20)
[2023-03-06] MEDS: ASPIRIN/ALUM/MAGNES/CAL CARB 325 MG TAB PO SCH (09:20)
[2023-03-06] MEDS: UMECLIDINIUM/VILANTEROL 62.5/25MCG 7 PUFFS/INHALER INH SCH (09:21)
[2023-03-06] MEDS: POTASSIUM CHLORIDE 10 MEQ TABCR PO SCH (09:21)
[2023-03-06] MEDS: MULTIVITAMIN TAB PO SCH (09:21)
[2023-03-06] MEDS: PANTOprazole 40 MG TAB PO SCH (09:21)
[2023-03-06] MEDS: CEFEPIME 2,000 MG in SYRINGE 0 ML IV SCH ×2 (09:35→21:53)
--- NOTE | 2023-03-06 11:46 | Orthopedic Progress Note ---
Date of Service March 06, 2023 Assessment & Plan (1) Closed fracture of right proximal humerus: Plan: Postop day #1 status post right reverse total shoulder arthroplasty. The patient will continue the sling of the right upper extremity. PT/OT for gentle range of motion of the right shoulder and gentle pendulum exercises. No active motion of the right shoulder at this time. The patient's hemoglobin was 7.0 this morning. It was difficult to assess any symptoms from the patient's history. I will defer to medicine for transfusion. Discharge planninguncertain at this time. The patient will need to be stable medically. Admission and Anticipated Discharge Date Admission Date: February 27, 2023 Supervising Physician Co-Signing Physician Notes Patient seen and examined. Agree with JACKELYN Jansen's note as above. Currently postoperative day #1 status post right reverse total shoulder arthroplasty for comminuted, displaced proximal humerus fracture. Postoperative x-rays look great. Reverse total shoulder arthroplasty components are in good position, with the shoulder joint located, and no evidence of hardware failure or loosening. Patient certainly seems more confused, delirious, and argumentative than she was preoperatively yesterday, although she continues to be oriented to person, place, and time. Nursing reports that she called 911 from her bed this morning. She is currently going off on nonsensical tangents. Hgb/Hct 7.0/21.7 this morning, and this current delirium could certainly be a combination of postoperative delirium from anesthesia and postoperative anemia. Will defer to medicine for transfusion decision. No pushing, pulling, lifting with right arm. Gentle passive motion only with therapy. Subjective Pain controlled in the right shoulder. No complaints of the right shoulder today. States his sensation is normal within the right hand. She has been in the sling without any issues. Some history difficult because the patient seems to have a little bit of confusion this morning. Physical Exam Constitutional: WD/WN, vitals as above no acute distress Musculoskeletal: Shoulder: + surgical incision (Right: Silverlon dressing in place anterior shoulder incision. C/D/I); no skin erythema, no ecchymosis and no surgical drain present Skin: no rashes, warm and dry Trauma: no evidence of skin trauma Neurologic: normal touch/pain/proprioception Psychiatric: Orientation: alert (But seems to have some confusion today.) Speech: normal rate/rhythm/volume of speech Results & Data Vital Signs (Past 12 Hours) Vital Signs Temp Pulse Pulse Resp BP Pulse Ox O2 Del Method 03/06/23 11:11 36.8 C 94 H 20 101/48 L 97 Room Air 03/06/23 08:27 36.8 C 93 H 19 89/45 L 97 Room Air 03/06/23 07:28 88 03/06/23 02:43 36.9 C 86 16 102/57 L 93 Room Air 03/06/23 00:10 36.7 C 84 20 102/57 L 97 Room Air 03/06/23 00:00 82 Laboratory Results Laboratory Tests 03/06/23 07:43 Hgb 7.0 L Hct 21.7 L Plt Count 43 L Sodium 139 Potassium 4.3 D Chloride 106 BUN 14 Creatinine 0.47 L Diagnostic Findings 2 views of the right shoulder reviewed. There is well aligned reverse total shoulder arthroplasty implants. No evidence of any loosening. (1) Closed fracture of right proximal humerus Encounter type: initial encounter Fracture alignment: displaced Fracture morphology: other fracture Qualified Code(s): S42.291A - Other displaced fracture of upper end of right humerus, initial encounter for closed fracture
[2023-03-06] MEDS ORDERED: SODIUM CHLORIDE 0.9% 250 ML IV PRN (13:09)
[2023-03-06] MEDS ORDERED: ACETAMINOPHEN 325 MG TAB PO ONE (13:09)
--- NOTE | 2023-03-06 13:50 | Hospitalist Progress Note ---
Date of Service March 06, 2023 Assessment & Plan (1) Fracture of greater trochanter of right femur: Plan Acute metabolic encephalopathy: Shock circulatory: Sepsis due to urinary tract infection: Patient presented with falls at home Was reported to be unresponsive with glucose of [address] did not show any acute abnormalities or fractures Was noted to be in shock on presentation, confused, Hb 6.5, right humeral and right trochanteric fractures UA s/o UTI. Urine culture reviewed. MRSA screen negative. Being managed for septic shock due to complicated UTI -improving, achieved hemodynamic stability. Was admitted to ICU initially, was on Levophed, off of Levophed since morning of 03/01. 02/28 Zosyn changed to cefepime 03/01. Continue with same. Follow up infectious workup including blood and urine cultures -urine culture reviewed, blood culture with no growth so far Patient back to baseline mentation --> delirious post op noted 03/06 --> delirium precaution, melatonin HS. Avoid benadryl unless absolutely necessary for allergic reaction. WBC trending down, pt afebrile. Fracture of greater trochanter of right femur: Fracture, humerus: Severe fracture of the right humerus with intraarticular bone fragments noted on scan. Age-related osteoporosis with current pathological fracture, R humerus and R hip Keep patient NWB RUE. Continue sling in RUE. Status post right reverse TSA 03/05/2023. Pain control WBAT for RLE per ortho. Ortho on board, appreciate recs. Acute on chronic anemia: Hemoglobin at baseline around 9. Admitting Hb 6.5. Likely blood loss secondary to acute fracture on background of chronic anemia likely 2/2 chemotherapy. s/p 2 PRBC, hemoglobin stable around 9 --Hb 7.0 post op noted 03/06. Will transfuse 1 more unit, f/u HnH 10 pm and in AM HnH in AM Monitor. Transfuse PRN to keep Hb >7 TAMIKO (acute kidney injury): Plan: Cont hemodynamic support and IVF per ICU team. Likely from septic shock Hold home diuretics Avoid nephrotoxins and monitor resolved. 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 WBC on admission at 57 K. Patient presented with septic shock, will hold all chemotherapy medications. Follow-up with oncology as an outpatient upon discharge. Current smoker: Long history of smoking, apparently she quit smoking last month, will follow. Protein malnutrition: Nutrition consult Postsurgical hypothyroidism: Continue home levothyroxine COPD: Chronic, stable. Continue home Anoro Ellipta Osteoporosis: Severe and likely cause of fractures in the setting of protein malnutrition chemotherapy. DVT prophylaxis: scds. chemoPx when deemed safe per ortho sx. Full code Dispo: Palliative consult, PT/OT when able, CM to assist with DC planning. Admission and Anticipated Discharge Date Admission Date: February 27, 2023 Subjective Patient was seen and examined at bedside. Patient is s/p right reverse total shoulder arthroplasty 03/05/23. Patient reports pain at operative site under control. Pt was delirious overnight. Appears some what confused in AM, was reoriented. Patient was sitting up in bed, on room air, NAD, right upper extremity in sling. Denies any pain in the right LE. Denies any chest pain or shortness of breath or dizziness. Reports feeling better, hemodynamically stable. Delirium precaution, melatonin HS. Physical Exam Physical Exam: GENERAL: Alert and awake, initially confused, easily reoriented. NAD, on RA. HEENT: No pallor, no icterus. Pupils equal, round and reactive to light. Oral mucosa moist. NECK: No JVD, no neck masses. HEART: S1 and S2 heard. Regular rate and rhythm. No murmur, no gallop. RESPIRATORY SYSTEM: Normal AP diameter. No accessory muscle use. No wheezing, no crackles. ABDOMEN: Soft, bowel sounds present, nontender, no distention. CENTRAL NERVOUS SYSTEM: No facial droop. Speech is clear. Obeys simple commands. Moves extremities. EXTREMITIES: No edema, no erythema seen. RUE in sling. distal neuro vascular status wnl. Right shoulder with clean dressing without soakage. Results & Data Results & Data Vital Signs (Past 12 Hours) Vital Signs Temp Pulse Pulse Resp BP Pulse Ox O2 Del Method 03/06/23 11:11 36.8 C 94 H 20 101/48 L 97 Room Air 03/06/23 08:27 36.8 C 93 H 19 89/45 L 97 Room Air 03/06/23 07:28 88 03/06/23 02:43 36.9 C 86 16 102/57 L 93 Room Air
[2023-03-06] MEDS ORDERED: SODIUM CHLORIDE 0.9% 500 ML IV SCH (16:45)
[2023-03-06] MEDS: SENNA 8.6 MG TAB PO SCH (21:54)
[2023-03-06 23:16] LABS: Hemoglobin 7.8 g/dl (12.0-16.0)
[2023-03-07] MEDS: LEVOTHYROXINE SODIUM 100 MCG TABLET PO SCH (06:40)
[2023-03-07] MEDS: ACETAMINOPHEN 500 MG TAB PO SCH ×3 (06:41→22:49)
[2023-03-07 07:20] LABS: Hematocrit (blood only) 26.5 % (37.0-47.0); Hemoglobin 8.5 g/dl (12.0-16.0); Mean Corpuscular Hemoglobin 29.4 pg (25.0-34.0); Mean Corpuscular Hgb Conc 32.1 g/dL (32.0-36.0); Mean Corpuscular Volume 91.7 fL (80.0-100.0); Mean Platelet Volume 11.1 fL (9.4-12.4); Platelet Count 53 K/uL (130-400); RDW Coefficient of Variation 15.1 % (11.5-14.5); RDW Standard Deviation 49.1 fL (36.4-46.3); Red Blood Count 2.89 M/uL (4.20-5.40); White Blood Count 8.27 K/ul (4.8-10.8)
[2023-03-07 07:37] LABS: Calcium 7.6 mg/dl (8.6-10.3); Creatinine Clr Calc Pharmacy 94.7 ml/min; Est GFR (African American) 117.9 ml/min; Est GFR (Non-African American) 101.7 ml/min; Magnesium 1.7 mg/dl (1.7-2.4); Phosphorus 1.9 mg/dl (2.5-4.9); Potassium 3.9 mmol/L (3.5-5.1)
[2023-03-07] MEDS ORDERED: POTASSIUM PHOS 3 MMOL/1 ML INFUSION IV STA (07:50)
--- NOTE | 2023-03-07 07:59 | Orthopedic Progress Note ---
Date of Service March 07, 2023 Assessment & Plan (1) Closed fracture of right proximal humerus: Plan: Postop day #2 status post right reverse total shoulder arthroplasty. The patient will continue the sling of the right upper extremity. PT/OT for gentle range of motion of the right shoulder and gentle pendulum exercises. No active motion of the right shoulder at this time. Improved hemoglobin today. Discharge planninguncertain at this time. The patient will need to be stable medically. Orthopedics sign off at this time. She will follow-up in approximately 2 weeks postop. Discharge instructions were placed in the chart. Admission and Anticipated Discharge Date Admission Date: February 27, 2023 Subjective Patient is doing well. Pain is much better in the right shoulder today. Feels the Tylenol has been helping her pain. Physical Exam Constitutional: WD/WN, vitals as above no acute distress Musculoskeletal: Shoulder: + surgical incision (Right: Silverlon dressing in place anterior shoulder incision. C/D/I); no skin erythema, no ecchymosis and no surgical drain present Skin: no rashes, warm and dry Trauma: no evidence of skin trauma Neurologic: normal touch/pain/proprioception Psychiatric: Orientation: alert and oriented x 3 Speech: normal rate/rhythm/volume of speech Results & Data Vital Signs (Past 12 Hours) Vital Signs Temp Pulse Pulse Resp BP BP Pulse Ox 03/07/23 07:08 78 03/07/23 03:40 133/74 03/07/23 03:14 37.4 C 90 22 91/53 L 92 03/07/23 00:44 105/76 03/06/23 22:49 94 H 03/06/23 22:38 36.6 C 82 20 99/66 L 93 O2 Del Method 03/07/23 07:08 03/07/23 03:40 03/07/23 03:14 Room Air 03/07/23 00:44 03/06/23 22:49 03/06/23 22:38 Room Air Laboratory Results Laboratory Tests 03/07/23 06:52 Hgb 8.5 L Hct 26.5 L Sodium 139 Potassium 3.9 Chloride 106 BUN 13 Creatinine 0.42 L (1) Closed fracture of right proximal humerus Encounter type: initial encounter Fracture morphology: other fracture Fracture alignment: displaced Qualified Code(s): S42.291A - Other displaced fracture of upper end of right humerus, initial encounter for closed fracture
[2023-03-07] MEDS ORDERED: POTASSIUM PHOSPHATE 15 MMOL in SODIUM CHLORIDE 0.9% 250 ML IV ONE (08:30)
[2023-03-07] MEDS: DOCUSATE SODIUM 100 MG CAP PO SCH ×2 (08:35→21:16)
[2023-03-07] MEDS: METOPROLOL SUCC 25MG EXT REL TAB PO SCH (08:35)
[2023-03-07] MEDS: UMECLIDINIUM/VILANTEROL 62.5/25MCG 7 PUFFS/INHALER INH SCH (08:37)
[2023-03-07] MEDS: ASPIRIN/ALUM/MAGNES/CAL CARB 325 MG TAB PO SCH (08:38)
[2023-03-07] MEDS: MULTIVITAMIN TAB PO SCH (08:41)
[2023-03-07] MEDS: CALCIUM CARBONATE 1250MG TAB PO SCH (08:41)
[2023-03-07] MEDS: PANTOprazole 40 MG TAB PO SCH (08:41)
[2023-03-07] MEDS: POTASSIUM CHLORIDE 10 MEQ TABCR PO SCH (08:42)
[2023-03-07] MEDS: CEFEPIME 2,000 MG in SYRINGE 0 ML IV SCH ×2 (08:46→22:54)
[2023-03-07] MEDS: MAGNESIUM SULFATE / D5W 1 GM/100 ML BAG IV SCH ×2 (08:47→10:28)
[2023-03-07] MEDS ORDERED: MAGNESIUM SULFATE / D5W 1 GM/100 ML BAG IV SCH (13:30)
--- NOTE | 2023-03-07 13:32 | Hospitalist Progress Note ---
Date of Service March 07, 2023 Assessment & Plan (1) Fracture of greater trochanter of right femur: Plan Acute metabolic encephalopathy: Shock circulatory: Sepsis due to urinary tract infection: Patient presented with falls at home Was reported to be unresponsive with glucose of [address] did not show any acute abnormalities or fractures Was noted to be in shock on presentation, confused, Hb 6.5, right humeral and right trochanteric fractures UA s/o UTI. Urine culture reviewed. MRSA screen negative. Managed for septic shock due to complicated UTI. Was admitted to ICU initially, was on Levophed, off of Levophed since morning of 03/01. 02/28 Zosyn changed to cefepime 03/01. Continue with same. Follow up infectious workup including blood and urine cultures -urine culture reviewed, blood culture with no growth so far Patient back to baseline mentation --> delirious post op noted 03/06 --> delirium precaution, melatonin HS --> appears resolved today. Avoid benadryl unless absolutely necessary for allergic reaction. WBC wnl, pt afebrile. Fracture of greater trochanter of right femur: Fracture, humerus: Severe fracture of the right humerus with intraarticular bone fragments noted on scan. Age-related osteoporosis with current pathological fracture, R humerus and R hip Keep patient NWB RUE. Continue sling in RUE. Status post right reverse TSA 03/05/2023. Pain control WBAT for RLE per ortho. Ortho on board, appreciate recs. f/u ortho 2 weeks post op. Acute on chronic anemia: Hemoglobin at baseline around 9. Admitting Hb 6.5. Likely blood loss secondary to acute fracture on background of chronic anemia likely 2/2 chemotherapy. s/p 2 PRBC, hemoglobin stable around 9 --Hb 7.0 post op noted 03/06. s/p 1 more unit, f/u HnH stable. HnH in AM Monitor. Transfuse PRN to keep Hb >7 TAMIKO (acute kidney injury): Plan: Cont hemodynamic support and IVF per ICU team. Likely from septic shock Hold home diuretics Avoid nephrotoxins and monitor resolved. 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 WBC on admission at 57 K. Patient presented with septic shock, will hold all chemotherapy medications. Follow-up with oncology as an outpatient upon discharge. Current smoker: Long history of smoking, apparently she quit smoking last month, will follow. Protein malnutrition: Nutrition consult Postsurgical hypothyroidism: Continue home levothyroxine COPD: Chronic, stable. Continue home Anoro Ellipta Osteoporosis: Severe and likely cause of fractures in the setting of protein malnutrition chemotherapy. DVT prophylaxis: scds. chemoPx when deemed safe per ortho sx. Full code Dispo: Palliative consult, PT/OT when able, CM to assist with DC planning. Admission and Anticipated Discharge Date Admission Date: February 27, 2023 Subjective Patient was seen and examined at bedside. Patient is s/p right reverse total shoulder arthroplasty 03/05/23. Patient reports pain at operative site under control w/ pain meds use. Pt feels better today. Patient was sitting up in bed, on room air, NAD, right upper extremity in sling. Denies any pain in the right LE. Denies any chest pain or shortness of breath or dizziness. Reports eating ok. C/w Delirium precaution, melatonin HS. Physical Exam Physical Exam: GENERAL: Alert and awake. NAD, on RA. HEENT: No pallor, no icterus. Pupils equal, round and reactive to light. Oral mucosa moist. NECK: No JVD, no neck masses. HEART: S1 and S2 heard. Regular rate and rhythm. No murmur, no gallop. RESPIRATORY SYSTEM: Normal AP diameter. No accessory muscle use. No wheezing, no crackles. ABDOMEN: Soft, bowel sounds present, nontender, no distention. CENTRAL NERVOUS SYSTEM: No facial droop. Speech is clear. Obeys simple commands. Moves extremities. EXTREMITIES: No edema, no erythema seen. RUE in sling. distal neuro vascular status wnl. Right shoulder with clean dressing without soakage. Results & Data Results & Data Vital Signs (Past 12 Hours) Vital Signs Temp Pulse Pulse Resp BP BP Pulse Ox 03/07/23 10:55 36.6 C 79 25 H 108/59 L 96 03/07/23 08:08 36.6 C 80 21 97/55 L 96 03/07/23 07:08 78 03/07/23 03:40 133/74 03/07/23 03:14 37.4 C 90 22 91/53 L 92 O2 Del Method 03/07/23 10:55 Room Air 03/07/23 08:08 Room Air 03/07/23 07:08 03/07/23 03:40 03/07/23 03:14 Room Air
[2023-03-07] MEDS: SENNA 8.6 MG TAB PO SCH (21:16)
[2023-03-08] MEDS: ACETAMINOPHEN 500 MG TAB PO SCH ×2 (06:27→13:10)
[2023-03-08] MEDS: LEVOTHYROXINE SODIUM 100 MCG TABLET PO SCH (06:27)
[2023-03-08 07:27] LABS: Hematocrit (blood only) 27.9 % (37.0-47.0); Hemoglobin 8.9 g/dl (12.0-16.0); Mean Corpuscular Hemoglobin 29.7 pg (25.0-34.0); Mean Corpuscular Hgb Conc 31.9 g/dL (32.0-36.0); Nucleated RBC # (auto) 0.02 K/uL (0.00-0.12); Nucleated RBC % (auto) 0.2 %; Platelet Count 82 K/uL (130-400); RDW Coefficient of Variation 15.4 % (11.5-14.5); RDW Standard Deviation 50.8 fL (36.4-46.3)
[2023-03-08] MEDS: CALCIUM CARBONATE 1250MG TAB PO SCH (07:49)
[2023-03-08] MEDS: POTASSIUM CHLORIDE 10 MEQ TABCR PO SCH (07:49)
[2023-03-08] MEDS: MULTIVITAMIN TAB PO SCH (07:49)
[2023-03-08] MEDS: ASPIRIN/ALUM/MAGNES/CAL CARB 325 MG TAB PO SCH (07:49)
[2023-03-08 07:50] LABS: BUN Creatinine Ratio 35.9 (10-20); Calcium 7.5 mg/dl (8.6-10.3); Creatinine Clr Calc Pharmacy 101.8 ml/min; Est GFR (African American) 120.8 ml/min; Est GFR (Non-African American) 104.2 ml/min; Phosphorus 2.1 mg/dl (2.5-4.9); Potassium 3.5 mmol/L (3.5-5.1)
[2023-03-08] MEDS: UMECLIDINIUM/VILANTEROL 62.5/25MCG 7 PUFFS/INHALER INH SCH (07:51)
[2023-03-08] MEDS: DOCUSATE SODIUM 100 MG CAP PO SCH ×2 (07:51→20:39)
[2023-03-08] MEDS: PANTOprazole 40 MG TAB PO SCH (07:51)
[2023-03-08] MEDS ORDERED: POTASSIUM CHLORIDE CRTAB 20 MEQ TABCR PO STA (07:59)
[2023-03-08] MEDS: METOPROLOL SUCC 25MG EXT REL TAB PO SCH (09:36)
[2023-03-08] MEDS: CEFEPIME 2,000 MG in SYRINGE 0 ML IV SCH (09:41)
[2023-03-08] MEDS: POT PHOSPHATE MONOBASIC W/ SOD TAB PO SCH ×4 (10:44→20:40)
[2023-03-08 14:21] LABS: Cdiff Toxin B Gene (2yr or >) Positive Cdiff Gene (Neg)
--- NOTE | 2023-03-08 14:32 | Hospitalist Progress Note ---
Date of Service March 08, 2023 Assessment & Plan (1) Fracture of greater trochanter of right femur: Plan Acute metabolic encephalopathy: Shock circulatory: Sepsis due to urinary tract infection: Patient presented with falls at home Was reported to be unresponsive with glucose of [address] did not show any acute abnormalities or fractures Was noted to be in shock on presentation, confused, Hb 6.5, right humeral and right trochanteric fractures UA s/o UTI. Urine culture reviewed. MRSA screen negative. Managed for septic shock due to complicated UTI. Was admitted to ICU initially, was on Levophed, off of Levophed since morning of 03/01. 02/28 Zosyn changed to cefepime 03/01. Continue with same. Follow up infectious workup including blood and urine cultures -urine culture reviewed, blood culture with no growth 5 days Patient back to baseline mentation --> delirious post op noted 03/06 --> delirium precaution, melatonin HS --> appears resolved 03/07. Avoid benadryl unless absolutely necessary for allergic reaction. WBC wnl, pt afebrile. Fracture of greater trochanter of right femur: Fracture, humerus: Severe fracture of the right humerus with intraarticular bone fragments noted on scan. Age-related osteoporosis with current pathological fracture, R humerus and R hip Keep patient NWB RUE. Continue sling in RUE. Status post right reverse TSA 03/05/2023. Pain control WBAT for RLE per ortho. Ortho on board, appreciate recs. f/u ortho 2 weeks post op. Acute on chronic anemia: Hemoglobin at baseline around 9. Admitting Hb 6.5. Likely blood loss secondary to acute fracture on background of chronic anemia likely 2/2 chemotherapy. s/p 2 PRBC, hemoglobin stable around 9 --Hb 7.0 post op noted 03/06. s/p 1 more unit, f/u HnH stable. HnH in AM Monitor. Transfuse PRN to keep Hb >7 TAMIKO (acute kidney injury): Plan: Cont hemodynamic support and IVF per ICU team. Likely from septic shock Hold home diuretics Avoid nephrotoxins and monitor resolved. 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 WBC on admission at 57 K. Patient presented with septic shock, will hold all chemotherapy medications. Follow-up with oncology as an outpatient upon discharge. Current smoker: Long history of smoking, apparently she quit smoking last month, will follow. Protein malnutrition: Nutrition consult Postsurgical hypothyroidism: Continue home levothyroxine COPD: Chronic, stable. Continue home Anoro Ellipta Osteoporosis: Severe and likely cause of fractures in the setting of protein malnutrition chemotherapy. DVT prophylaxis: scds. chemoPx when deemed safe per ortho sx. Full code Dispo: Palliative consult, PT/OT when able, CM to assist with DC planning. Awaiting placement. Admission and Anticipated Discharge Date Admission Date: February 27, 2023 Subjective Patient was seen and examined at bedside. Patient is s/p right reverse total shoulder arthroplasty 03/05/23. Patient reports pain at operative site under control w/ pain meds use. Pt feels better today. Reports RUE swelling getting better. Had diarrhea last evening and night. Will consider for c diff testing if w/ further diarrhea. probiotic added. electr olytes replaced. Patient was sitting up in bed, on room air, NAD, right upper extremity in sling. Denies any pain in the right LE. Denies any chest pain or shortness of breath or dizziness. Reports eating ok. C/w Delirium precaution, melatonin HS. Physical Exam Physical Exam: GENERAL: Alert and awake. NAD, on RA. HEENT: No pallor, no icterus. Pupils equal, round and reactive to light. Oral mucosa moist. NECK: No JVD, no neck masses. HEART: S1 and S2 heard. Regular rate and rhythm. No murmur, no gallop. RESPIRATORY SYSTEM: Normal AP diameter. No accessory muscle use. No wheezing, no crackles. ABDOMEN: Soft, bowel sounds present, nontender, no distention. CENTRAL NERVOUS SYSTEM: No facial droop. Speech is clear. Obeys simple commands. Moves extremities. EXTREMITIES: No edema, no erythema seen. RUE in sling. distal neuro vascular status wnl. Right shoulder with clean dressing without soakage. Results & Data Results & Data Vital Signs (Past 12 Hours) Vital Signs Temp Pulse Pulse Resp BP BP Pulse Ox 03/08/23 11:48 36.7 C 71 14 129/72 03/08/23 08:48 36.7 C 87 22 137/79 03/08/23 08:00 86 03/08/23 03:20 37.2 C 18 132/74 94 O2 Del Method 03/08/23 11:48 03/08/23 08:48 03/08/23 08:00 03/08/23 03:20 Room Air
[2023-03-08 14:51] LABS: Cdiff Antigen Positive
[2023-03-08 14:52] LABS: Cdiff Toxin A+B Positive Cdiff Toxin (Negative)
[2023-03-08] MEDS: ADVANCED PROBIOTIC 1250 MG CAPSULE PO SCH (15:42)
[2023-03-08] MEDS: CHERRY SYRUP 5 ML UDP PO SCH (17:14)
[2023-03-08] MEDS: VANCOMYCIN HCL 125 MG/2.5ML SOLN PO SCH (17:14)
[2023-03-08] MEDS: SENNA 8.6 MG TAB PO SCH (20:41)
[2023-03-08] MEDS: FUROSEMIDE 20 MG TAB PO SCH (22:00)
[2023-03-09] MEDS: ACETAMINOPHEN 500 MG TAB PO SCH ×4 (00:11→21:56)
[2023-03-09] MEDS: VANCOMYCIN HCL 125 MG/2.5ML SOLN PO SCH ×4 (00:30→21:55)
[2023-03-09] MEDS: CHERRY SYRUP 5 ML UDP PO SCH ×4 (00:30→21:55)
[2023-03-09] MEDS: LEVOTHYROXINE SODIUM 100 MCG TABLET PO SCH (06:22)
[2023-03-09 06:36] LABS: Hematocrit (blood only) 25.2 % (37.0-47.0); Hemoglobin 8.3 g/dl (12.0-16.0); Mean Corpuscular Hemoglobin 29.7 pg (25.0-34.0); Mean Corpuscular Hgb Conc 32.9 g/dL (32.0-36.0); Mean Corpuscular Volume 90.3 fL (80.0-100.0); Mean Platelet Volume 10.7 fL (9.4-12.4); Platelet Count 106 K/uL (130-400); RDW Coefficient of Variation 15.4 % (11.5-14.5); RDW Standard Deviation 48.9 fL (36.4-46.3); Red Blood Count 2.79 M/uL (4.20-5.40); White Blood Count 15.63 K/ul (4.8-10.8)
[2023-03-09 07:10] LABS: BUN Creatinine Ratio 39.5 (10-20); Calcium 7.5 mg/dl (8.6-10.3); Creatinine Clr Calc Pharmacy 95.1 ml/min; Est GFR (African American) 116.9 ml/min; Est GFR (Non-African American) 100.9 ml/min; Magnesium 1.8 mg/dl (1.7-2.4); Phosphorus 2.4 mg/dl (2.5-4.9); Potassium 3.3 mmol/L (3.5-5.1)
[2023-03-09] MEDS ORDERED: POTASSIUM PHOS 3 MMOL/1 ML INFUSION IV STA (07:56)
[2023-03-09] MEDS: POTASSIUM CHLORIDE / WTR 10 MEQ/100 ML PLCT IV SCH ×3 (09:02→14:35)
[2023-03-09] MEDS: ASPIRIN/ALUM/MAGNES/CAL CARB 325 MG TAB PO SCH (09:06)
[2023-03-09] MEDS: CALCIUM CARBONATE 1250MG TAB PO SCH (09:07)
[2023-03-09] MEDS: METOPROLOL SUCC 25MG EXT REL TAB PO SCH (09:08)
[2023-03-09] MEDS: MULTIVITAMIN TAB PO SCH (09:10)
[2023-03-09] MEDS: PANTOprazole 40 MG TAB PO SCH (09:11)
[2023-03-09] MEDS: ADVANCED PROBIOTIC 1250 MG CAPSULE PO SCH (09:11)
[2023-03-09] MEDS: UMECLIDINIUM/VILANTEROL 62.5/25MCG 7 PUFFS/INHALER INH SCH (09:11)
[2023-03-09] MEDS: FUROSEMIDE 20 MG TAB PO SCH ×2 (09:12→21:55)
[2023-03-09] MEDS: POTASSIUM CHLORIDE 10 MEQ TABCR PO SCH (09:16)
[2023-03-09] MEDS: DOCUSATE SODIUM 100 MG CAP PO SCH (09:16)
[2023-03-09] MEDS ORDERED: POTASSIUM PHOSPHATE 15 MMOL in SODIUM CHLORIDE 0.9% 250 ML IV ONE (11:00)
--- NOTE | 2023-03-09 15:31 | Hospitalist Progress Note ---
Date of Service March 09, 2023 Assessment & Plan (1) Fracture of greater trochanter of right femur: Plan Acute metabolic encephalopathy: Shock circulatory: Sepsis due to urinary tract infection: Patient presented with falls at home Was reported to be unresponsive with glucose of [address] did not show any acute abnormalities or fractures Was noted to be in shock on presentation, confused, Hb 6.5, right humeral and right trochanteric fractures UA s/o UTI. Urine culture reviewed. MRSA screen negative. Managed for septic shock due to complicated UTI. Was admitted to ICU initially, was on Levophed, off of Levophed since morning of 03/01. Urine culture reviewed. Blood culture with no growth. 02/28 Zosyn changed to cefepime 03/01. Status post antibiotic course. Patient back to baseline mentation --> delirious post op noted 03/06 --> delirium precaution, melatonin HS --> remains mildly confused. Avoid benadryl unless absolutely necessary for allergic reaction. pt afebrile. Fracture of greater trochanter of right femur: Fracture, humerus: Severe fracture of the right humerus with intraarticular bone fragments noted on scan. Age-related osteoporosis with current pathological fracture, R humerus and R hip Keep patient NWB RUE. Continue sling in RUE. Status post right reverse TSA 03/05/2023. Pain control, bowel regimen as appropriate. WBAT for RLE per ortho. Ortho on board, appreciate recs. f/u ortho 2 weeks post op. C. difficile: Patient was having loose stool and tested for C. difficile 03/08, came back positive. P.o. vancomycin started 03/08, monitor frequency/consistency of bowel movement. Maintain contact precaution. Acute on chronic anemia: Hemoglobin at baseline around 9. Admitting Hb 6.5. Likely blood loss secondary to acute fracture on background of chronic anemia likely 2/2 chemotherapy. s/p 2 PRBC, hemoglobin stable around 9 --Hb 7.0 post op noted 03/06. s/p 1 more unit, f/u HnH stable. HnH in AM Monitor. Transfuse PRN to keep Hb >7 TAMIKO (acute kidney injury): Plan: Cont hemodynamic support and IVF per ICU team. Likely from septic shock Hold home diuretics Avoid nephrotoxins and monitor resolved. 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 WBC on admission at 57 K. Patient presented with septic shock, will hold all chemotherapy medications. Follow-up with oncology as an outpatient upon discharge. Current smoker: Long history of smoking, apparently she quit smoking last month, will follow. Protein malnutrition: Nutrition consult Postsurgical hypothyroidism: Continue home levothyroxine COPD: Chronic, stable. Continue home Anoro Ellipta Osteoporosis: Severe and likely cause of fractures in the setting of protein malnutrition chemotherapy. DVT prophylaxis: scds. aspirin. Full code Dispo: Palliative consult, PT/OT when able, CM to assist with DC planning. had c diff, w/ multiple loose stools, await clinical improvement of c diff. Admission and Anticipated Discharge Date Admission Date: February 27, 2023 Subjective Patient was seen and examined at bedside. Patient is s/p right reverse total shoulder arthroplasty 03/05/23. Patient reports pain at operative site under control w/ pain meds use. Pt again appears mildly confused today. Reports RUE swelling getting better. Patient noted to have C. difficile 03/08/2023. Still having loose stools. Multiple. Discussed with RN, patient refusing proper medical care in AM. Appetite is poor today Patient was sitting up in chair, on room air, NAD, right upper extremity in sling. Denies any pain in the right LE. Denies any chest pain or shortness of breath or dizziness. C/w Delirium precaution, melatonin HS. Physical Exam Physical Exam: GENERAL: Alert and awake. NAD, on RA. Appears ill/frail/weak. HEENT: No pallor, no icterus. Pupils equal, round and reactive to light. Oral mucosa moist. NECK: No JVD, no neck masses. HEART: S1 and S2 heard. Regular rate and rhythm. No murmur, no gallop. RESPIRATORY SYSTEM: Normal AP diameter. No accessory muscle use. No wheezing, no crackles. ABDOMEN: Soft, bowel sounds present, nontender, no distention. CENTRAL NERVOUS SYSTEM: No facial droop. Speech is clear. Obeys simple commands. Moves extremities. EXTREMITIES: No edema, no erythema seen. RUE in sling. distal neuro vascular status wnl. Right shoulder with clean dressing without soakage. Results & Data Results & Data Vital Signs (Past 12 Hours) Vital Signs Temp Pulse Resp BP BP Pulse Ox O2 Del Method 03/09/23 11:55 36.6 C 69 12 156/73 H 100 Room Air 03/09/23 07:50 36.6 C 71 21 121/77 94 Room Air 03/09/23 03:44 37.5 C 78 18 114/59 L 93 Room Air
[2023-03-09] MEDS: MELATONIN 3 MG TAB PO PRN (21:55)
[2023-03-10] MEDS: CHERRY SYRUP 5 ML UDP PO SCH ×4 (02:00→17:58)
[2023-03-10] MEDS: VANCOMYCIN HCL 125 MG/2.5ML SOLN PO SCH ×4 (02:00→17:58)
[2023-03-10] MEDS ORDERED: Nursing to Pharmacy Communication SCH (03:00)
[2023-03-10] MEDS: ACETAMINOPHEN 500 MG TAB PO SCH ×3 (05:30→22:26)
[2023-03-10] MEDS: LEVOTHYROXINE SODIUM 100 MCG TABLET PO SCH (05:34)
[2023-03-10 06:15] LABS: Hematocrit (blood only) 25.8 % (37.0-47.0); Hemoglobin 8.2 g/dl (12.0-16.0); Mean Corpuscular Hemoglobin 29.6 pg (25.0-34.0); Mean Corpuscular Hgb Conc 31.8 g/dL (32.0-36.0); Mean Corpuscular Volume 93.1 fL (80.0-100.0); Mean Platelet Volume 10.5 fL (9.4-12.4); Platelet Count 127 K/uL (130-400); RDW Coefficient of Variation 15.8 % (11.5-14.5); RDW Standard Deviation 49.3 fL (36.4-46.3); Red Blood Count 2.77 M/uL (4.20-5.40); White Blood Count 19.83 K/ul (4.8-10.8)
[2023-03-10 06:28] LABS: Calcium 7.3 mg/dl (8.6-10.3); Magnesium 1.6 mg/dl (1.7-2.4); Potassium 3.2 mmol/L (3.5-5.1)
[2023-03-10 06:33] LABS: BUN Creatinine Ratio 30.6 (10-20); Est GFR (Non-African American) 96.7 ml/min; Phosphorus 2.8 mg/dl (2.5-4.9)
[2023-03-10] MEDS: UMECLIDINIUM/VILANTEROL 62.5/25MCG 7 PUFFS/INHALER INH SCH (09:46)
[2023-03-10] MEDS: METOPROLOL SUCC 25MG EXT REL TAB PO SCH (09:47)
[2023-03-10] MEDS: CALCIUM CARBONATE 1250MG TAB PO SCH (09:47)
[2023-03-10] MEDS: ADVANCED PROBIOTIC 1250 MG CAPSULE PO SCH (09:47)
[2023-03-10] MEDS: PANTOprazole 40 MG TAB PO SCH (09:50)
[2023-03-10] MEDS: FUROSEMIDE 20 MG TAB PO SCH ×2 (09:50→20:06)
[2023-03-10] MEDS: ASPIRIN/ALUM/MAGNES/CAL CARB 325 MG TAB PO SCH (09:50)
[2023-03-10] MEDS: POTASSIUM CHLORIDE 10 MEQ TABCR PO SCH (09:50)
[2023-03-10] MEDS: MULTIVITAMIN TAB PO SCH (09:51)
[2023-03-10] MEDS: POTASSIUM CHLORIDE CRTAB 20 MEQ TABCR PO SCH ×2 (11:34→12:43)
[2023-03-10] MEDS: MAGNESIUM SULFATE / D5W 1 GM/100 ML BAG IV SCH ×2 (11:36→12:34)
--- NOTE | 2023-03-10 13:37 | Hospitalist Progress Note ---
Date of Service March 10, 2023 Assessment & Plan (1) Fracture of greater trochanter of right femur: Plan Acute metabolic encephalopathy: Shock circulatory: Sepsis due to urinary tract infection: Patient presented with falls at home Was reported to be unresponsive with glucose of [address] did not show any acute abnormalities or fractures Was noted to be in shock on presentation, confused, Hb 6.5, right humeral and right trochanteric fractures UA s/o UTI. Urine culture reviewed. MRSA screen negative. Managed for septic shock due to complicated UTI. Was admitted to ICU initially, was on Levophed, off of Levophed since morning of 03/01. Urine culture reviewed. Blood culture with no growth. 02/28 Zosyn changed to cefepime 03/01. Status post antibiotic course. Patient back to baseline mentation --> delirious post op noted 03/06 --> delirium precaution, melatonin HS --> appears improved but at high risk of recurrence. Avoid benadryl unless absolutely necessary for allergic reaction. pt afebrile. Fracture of greater trochanter of right femur: Fracture, humerus: Severe fracture of the right humerus with intraarticular bone fragments noted on scan. Age-related osteoporosis with current pathological fracture, R humerus and R hip Keep patient NWB RUE. Continue sling in RUE. Status post right reverse TSA 03/05/2023. Pain control, bowel regimen as appropriate. WBAT for RLE per ortho. Ortho on board, appreciate recs. f/u ortho 2 weeks post op. C. difficile: Patient was having loose stool and tested for C. difficile 03/08, came back positive. P.o. vancomycin started 03/08, monitor frequency/consistency of bowel movement. Maintain contact precaution. Stilly w/ liquidy freq stools; wbc uptrending. If worsening or not improving freq/consistency of stool, consider GI consult. Acute on chronic anemia: Hemoglobin at baseline around 9. Admitting Hb 6.5. Likely blood loss secondary to acute fracture on background of chronic anemia likely 2/2 chemotherapy. s/p 2 PRBC, hemoglobin stable around 9 --Hb 7.0 post op noted 03/06. s/p 1 more unit, f/u HnH stable. HnH in AM Monitor. Transfuse PRN to keep Hb >7 TAMIKO (acute kidney injury): Plan: Cont hemodynamic support and IVF per ICU team. Likely from septic shock Hold home diuretics Avoid nephrotoxins and monitor resolved. 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 WBC on admission at 57 K. Patient presented with septic shock, will hold all chemotherapy medications. Follow-up with oncology as an outpatient upon discharge. Current smoker: Long history of smoking, apparently she quit smoking last month, will follow. Protein malnutrition: Nutrition consult Postsurgical hypothyroidism: Continue home levothyroxine COPD: Chronic, stable. Continue home Anoro Ellipta Osteoporosis: Severe and likely cause of fractures in the setting of protein malnutrition chemotherapy. DVT prophylaxis: scds. aspirin. Full code Dispo: Palliative consult, PT/OT when able, CM to assist with DC planning. had c diff, w/ multiple loose stools, await clinical improvement of c diff. Admission and Anticipated Discharge Date Admission Date: February 27, 2023 Subjective Patient was seen and examined at bedside. Patient is s/p right reverse total shoulder arthroplasty 03/05/23. Patient reports pain at operative site under control w/ pain meds use. Patient is sitting up in chair, alert and awake, oriented today. Does not appear confused. Per RN, patient still with frequent liquidy stool. Patient noted to have C. difficile 03/08/2023. Still having loose stools. Multiple. Reports improving consistency somewhat per patient. Appetite poor in general per RN, dietitian on board. Denies any pain in the right LE. Denies any chest pain or shortness of breath or dizziness. C/w Delirium precaution, melatonin HS. Physical Exam Physical Exam: GENERAL: Alert and awake. NAD, on RA. Appears ill/frail/weak. HEENT: No pallor, no icterus. Pupils equal, round and reactive to light. Oral mucosa moist. NECK: No JVD, no neck masses. HEART: S1 and S2 heard. Regular rate and rhythm. No murmur, no gallop. RESPIRATORY SYSTEM: Normal AP diameter. No accessory muscle use. No wheezing, no crackles. ABDOMEN: Soft, bowel sounds present, nontender, no distention. CENTRAL NERVOUS SYSTEM: No facial droop. Speech is clear. Obeys simple commands. Moves extremities. EXTREMITIES: No edema, no erythema seen. RUE in sling. distal neuro vascular status wnl. Right shoulder with clean dressing without soakage. Results & Data Results & Data Vital Signs (Past 12 Hours) Vital Signs Temp Pulse Pulse Resp BP BP Pulse Ox 03/10/23 12:00 87 17 109/60 100 03/10/23 08:00 68 03/10/23 07:25 36.5 C 114/78 03/10/23 07:00 03/10/23 03:42 36.5 C 79 16 119/82 95 O2 Del Method 03/10/23 12:00 Room Air 03/10/23 08:00 03/10/23 07:25 03/10/23 07:00 Room Air 03/10/23 03:42 Room Air
[2023-03-11] MEDS: VANCOMYCIN HCL 125 MG/2.5ML SOLN PO SCH ×5 (00:02→23:17)
[2023-03-11] MEDS: CHERRY SYRUP 5 ML UDP PO SCH ×5 (05:38→23:17)
[2023-03-11] MEDS: ACETAMINOPHEN 500 MG TAB PO SCH ×3 (05:38→21:03)
[2023-03-11] MEDS: LEVOTHYROXINE SODIUM 100 MCG TABLET PO SCH (05:39)
[2023-03-11 09:25] LABS: Hematocrit (blood only) 27.4 % (37.0-47.0); Hemoglobin 9.1 g/dl (12.0-16.0); Mean Corpuscular Hemoglobin 29.9 pg (25.0-34.0); Mean Corpuscular Hgb Conc 33.2 g/dL (32.0-36.0); Mean Corpuscular Volume 90.1 fL (80.0-100.0); Mean Platelet Volume 10.5 fL (9.4-12.4); Platelet Count 153 K/uL (130-400); RDW Coefficient of Variation 15.9 % (11.5-14.5); Red Blood Count 3.04 M/uL (4.20-5.40); White Blood Count 22.95 K/ul (4.8-10.8)
[2023-03-11 09:32] LABS: BUN Creatinine Ratio 26.8 (10-20); Calcium 7.7 mg/dl (8.6-10.3); Creatinine Clr Calc Pharmacy 75.1 ml/min; Est GFR (African American) 107.2 ml/min; Est GFR (Non-African American) 92.5 ml/min; Magnesium 1.8 mg/dl (1.7-2.4); Phosphorus 2.9 mg/dl (2.5-4.9); Potassium 3.6 mmol/L (3.5-5.1)
[2023-03-11] MEDS: CALCIUM CARBONATE 1250MG TAB PO SCH (10:25)
[2023-03-11] MEDS: PANTOprazole 40 MG TAB PO SCH (10:25)
[2023-03-11] MEDS: POTASSIUM CHLORIDE 10 MEQ TABCR PO SCH (10:25)
[2023-03-11] MEDS: ADVANCED PROBIOTIC 1250 MG CAPSULE PO SCH (10:26)
[2023-03-11] MEDS: METOPROLOL SUCC 25MG EXT REL TAB PO SCH (10:26)
[2023-03-11] MEDS: MULTIVITAMIN TAB PO SCH (10:26)
[2023-03-11] MEDS: FUROSEMIDE 20 MG TAB PO SCH ×2 (10:26→21:02)
[2023-03-11] MEDS: ASPIRIN/ALUM/MAGNES/CAL CARB 325 MG TAB PO SCH (10:27)
[2023-03-11] MEDS: DICYCLOMINE HCL 10 MG CAP PO SCH ×2 (13:36→21:03)
[2023-03-11] MEDS: UMECLIDINIUM/VILANTEROL 62.5/25MCG 7 PUFFS/INHALER INH SCH (13:37)
--- NOTE | 2023-03-11 14:29 | Hospitalist Progress Note ---
Date of Service March 11, 2023 Assessment & Plan (1) Sepsis due to urinary tract infection: Plan: Acute metabolic encephalopathy: Shock circulatory: Sepsis due to urinary tract infection: Patient presented with falls at home Was noted to be in shock on presentation, confused, Hb 6.5, right humeral and right trochanteric fractures UA s/o UTI. Urine culture reviewed. MRSA screen negative. Was reported to be unresponsive with glucose of [address] did not show any acute abnormalities or fractures Managed for septic shock due to complicated UTI. Was admitted to ICU initially, was on Levophed, off of Levophed since morning of 03/01. Urine culture reviewed. Blood culture with no growth. 02/28 Zosyn changed to cefepime 03/01. Status post antibiotic course. Patient back to baseline mentation --> delirious post op noted 03/06 --> delirium precaution, melatonin HS --> appears improved but at high risk of recurrence. Avoid benadryl unless absolutely necessary for allergic reaction. She has been feeling much better but remains weak and lethargic Adriana hemodynamically stable and without any acute symptoms Has had physical therapy evaluation and recommended SNF-patient wants to go to [facility] C. difficile: Patient was having loose stool and tested for C. difficile 03/08, came back positive. P.o. vancomycin started 03/08, monitor frequency/consistency of bowel movement. Maintain contact precaution. Stilly w/ liquidy freq stools; wbc uptrending. If worsening or not improving freq/consistency of stool, consider GI consult. Continues to have ongoing diarrhea Will try Bentyl but no Imodium (2) Shock circulatory: Plan: As above (3) Acute metabolic encephalopathy: Plan: As above and seems to be resolved following treatment (4) Fracture of greater trochanter of right femur: Plan: Fracture of greater trochanter of right femur: No surgical intervention Fracture, humerus: Secondary to fall at home Severe fracture of the right humerus with intraarticular bone fragments noted on scan. Age-related osteoporosis with current pathological fracture, R humerus and R hip Appreciate Ortho input and recommendation Keep patient NWB RUE. Continue sling in RUE. Status post right reverse TSA 03/05/2023. Pain control, bowel regimen as appropriate. WBAT for RLE per ortho. Will have f/u with Ortho ortho 2 weeks post op. Continue with the PT and OT (5) Closed fracture of right proximal humerus: Plan: Status post right reverse total shoulder arthroplasty on 03/05/2023 (6) Recurrent falls: Plan: Multifactorial and mechanical falls (7) TAMIKO (acute kidney injury): Plan: TAMIKO (acute kidney injury): Plan: Cont hemodynamic support and IVF per ICU team. Likely from septic shock Hold home diuretics Avoid nephrotoxins and monitor resolved. 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 WBC on admission at 57 K. Patient presented with septic shock, will hold all chemotherapy medications. Follow-up with oncology as an outpatient upon discharge. No acute issues Remains a smoker (9) Atrial flutter, paroxysmal: Plan: Rate is controlled (10) COPD (chronic obstructive pulmonary disease): Plan: COPD: Chronic, stable. Continue home Anoro Ellipta (11) Postsurgical hypothyroidism: Plan: Continue replacement Plan Acute on chronic anemia: Hemoglobin at baseline around 9. Hb 6.5. Likely blood loss secondary to acute fracture on background of chronic anemia likely 2/2 chemotherapy. s/p 2 PRBC, hemoglobin stable around 9 --Hb 7.0 post op noted 03/06. s/p 1 more unit, f/u HnH stable. HnH in AM Monitor. 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 WBC on admission at 57 K. Patient presented with septic shock, will hold all chemotherapy medications. Follow-up with oncology as an outpatient upon discharge. Current smoker: Long history of smoking, apparently she quit smoking last month, will follow. Protein malnutrition: Nutrition consult Postsurgical hypothyroidism: Continue home levothyroxine COPD: Chronic, stable. Continue home Anoro Ellipta Osteoporosis: Severe and likely cause of fractures in the setting of protein malnutrition chemotherapy. DVT prophylaxis: scds. aspirin. Full code Dispo: Palliative consult, PT/OT when able, CM to assist with DC planning. had c diff, w/ multiple loose stools, await clinical improvement of c diff. Admission and Anticipated Discharge Date Admission Date: February 27, 2023 Subjective 03/11/2023 The patient was seen and examined in telemetry unit She has been pleasantly confused but denies any significant symptoms Complains of pain in the right shoulder and some pain in the legs as well Has been having diarrhea without any abdominal pain, nausea and or vomiting Review of Systems Review of Systems: All systems reviewed and are unremarkable except as noted below Physical Exam Physical Exam: Sitting at the edge of the bed without any acute distress Constitutional: + ill appearing and + thin Eyes: PERRL, conjunctivae normal, anicteric sclerae ENMT: external ear and nose normal, oropharynx normal Neck: trachea midline, no thyromegaly Respiratory: no respiratory distress Auscultation: + diminished lung sounds and + crackles (Occasional crackles at the bases) Cardiovascular: Rate/Rhythm: regular rate and regular rhythm; not tachycardic Heart Sounds: normal S1, normal S2 and + murmur Extremities: + edema (Trace edema bilaterally) Gastrointestinal (Abdomen): Inspection/Auscultation: normal bowel sounds; abdomen not distended Percussion/Palpation: abdomen soft; abdomen nontender Musculoskeletal: Right shoulder pain with movement and right hip movement is painful as well Neurologic: Alert and awake. Remains pleasantly confused. Generally very weak. No focal neurodeficit Lymphatic: no cervical or axillary lymphadenopathy Results & Data Results & Data Vital Signs (Past 12 Hours) Vital Signs Temp Pulse Resp BP BP Pulse Ox O2 Del Method 03/11/23 12:09 36.5 C 78 16 110/56 L 98 Room Air 03/11/23 03:15 36.5 C 69 18 122/76 98 Room Air Laboratory Results Short CBC 03/11/23 Range/Units 08:36 WBC 22.95 H (4.8-10.8) K/ul Hgb 9.1 L (12.0-16.0) g/dl Hct 27.4 L (37.0-47.0) % Plt Count 153 (130-400) K/uL BMP 03/11/23 08:36 Sodium 133 L Potassium 3.6 Chloride 99 Carbon Dioxide 25 BUN 15 Creatinine 0.56 L Glucose 99 Calcium 7.7 L Medications Administered Current Inpatient Medications Acetaminophen (Acetaminophen 500 Mg Tab) 1,000 mg PO Q8 [facility] Stop: 04/04/23 13:59 Last Admin: 03/11/23 13:38 Dose: 1,000 mg Al Hydrox/Mg Hydrox/Simethicone (Aluminum/Magnesium Susp 30 Ml Udc) 15 ml PO Q4H PRN PRN Reason: Heartburn Stop: 04/04/23 12:18 Aspirin Buffered (Aspirin/Alum/Magnes/Edin Carb 325 Mg Tab) 325 mg PO DAILY [facility] Stop: 04/05/23 08:59 Last Admin: 03/11/23 10:27 Dose: 325 mg Bisacodyl (Bisacodyl 10 Mg Supp) 10 mg MA DAILY PRN PRN Reason: Constipation Stop: 04/04/23 12:18 Calcium Carbonate (Calcium Carbonate 1250mg Tab) 1,250 mg PO DAILY [facility] Stop: 03/31/23 10:59 Last Admin: 03/11/23 10:25 Dose: 1,250 mg Price Syrup (Price Syrup 5 Ml Udp) 5 ml PO Q6 [facility] Stop: 03/18/23 17:59 Last Admin: 03/11/23 13:37 Dose: 5 ml Dextrose (Dextrose 50% 50 Ml Syringe) 25 - 50 ml IV UD PRN; Protocol PRN Reason: Hypoglycemia Protocol Stop: 03/30/23 00:14 Last Admin: 02/28/23 00:20 Dose: 50 ml Dicyclomine HCl (Dicyclomine Hcl 10 Mg Cap) 10 mg PO TID [facility]NG Stop: 04/10/23 13:59 Last Admin: 03/11/23 13:36 Dose: 10 mg Diphenhydramine HCl (Diphenhydramine Capsule 25 Mg Cap) 25 mg PO Q8H PRN PRN Reason: Itching Stop: 04/04/23 12:18 Furosemide (Furosemide 20 Mg Tab) 20 mg PO BID [facility]NG Stop: 04/07/23 20:59 Last Admin: 03/11/23 10:26 Dose: 20 mg Glucagon (Glucagon For Inj 1 Mg Vial) 1 mg SQ UD PRN; Protocol PRN Reason: Hypoglycemia Protocol Stop: 03/30/23 00:14 Glucose (Glucose 10 Tab/Tube) 4 - 8 tab PO UD PRN; Protocol PRN Reason: Hypoglycemia Treatment Stop: 03/30/23 00:14 Glucose (Glucose 40% Gel 15 Gm Tube) 15 - 30 gm PO UD PRN; Protocol PRN Reason: Hypoglycemia Protocol Stop: 03/30/23 00:14 Hydromorphone HCl (Hydromorphone Inj 1 Mg/Ml Syringe) 1 mg IV Q4H PRN PRN Reason: Pain Stop: 03/19/23 12:18 Last Admin: 03/05/23 16:12 Dose: 1 mg Ketorolac Tromethamine (Ketorolac Tromethamine 15 Mg/Ml Vial) 15 mg IV Q6H PRN PRN Reason: Breakthrough Pain Lactobacillus Acidophilus (Advanced Probiotic 1250 Mg Capsule) 2 cap PO DAILY [facility] Stop: 04/07/23 14:29 Last Admin: 03/11/23 10:26 Dose: 2 cap Levothyroxine Sodium (Levothyroxine Sodium 100 Mcg Tablet) 100 mcg PO DAILYBB [facility] Stop: 03/31/23 10:59 Last Admin: 03/11/23 05:39 Dose: 100 mcg Magnesium Hydroxide (Magnesium Hydroxide Susp 30 Ml Udc) 30 ml PO Q6H PRN PRN Reason: Constipation Stop: 04/04/23 12:18 Melatonin (Melatonin 3 Mg Tab) 6 mg PO HS PRN PRN Reason: Sleep Stop: 04/05/23 13:40 Last Admin: 03/09/23 21:55 Dose: 6 mg Metoclopramide HCl (Metoclopramide Hcl Inj 5 Mg/Ml 2 Ml Vial) 10 mg IV Q6H PRN PRN Reason: Nausea And Vomiting Stop: 04/04/23 12:18 Metoprolol Succinate (Metoprolol Succ 25mg Ext Rel Tab) 12.5 mg PO DAILY [facility] Stop: 04/03/23 08:59 Last Admin: 03/11/23 10:26 Dose: 12.5 mg Miscellaneous (Carbohydrates For Hypoglycemia ) 15 - 30 gm PO UD PRN PRN Reason: Hypoglycemia Protocol Stop: 03/30/23 00:14 Multivitamins (Multivitamin Tab) 1 tab PO QAM [facility] Stop: 04/05/23 08:59 Last Admin: 03/11/23 10:26 Dose: 1 tab Naloxone HCl (Naloxone Hcl 0.4 Mg/1 Ml Vial/Carp) 0.1 mg IV Q5M PRN PRN Reason: Oversedation/Resp Depression Stop: 04/04/23 12:18 Ondansetron HCl (Ondansetron Inj 2 Mg/Ml 2 Ml Vial) 4 mg IV Q6H PRN PRN Reason: Nausea And Vomiting Stop: 04/04/23 12:18 Oxycodone HCl (Oxycodone Hcl Ir 5 Mg Tab (Immediate Release)) 5 - 10 mg PO Q4H PRN PRN Reason: Pain or Pre PT Stop: 03/19/23 12:18 Last Admin: 03/05/23 13:12 Dose: 5 mg Pantoprazole Sodium (Pantoprazole 40 Mg Tab) 40 mg PO DAILY [facility] Stop: 04/01/23 08:59 Last Admin: 03/11/23 10:25 Dose: 40 mg Potassium Chloride (Potassium Chloride 10 Meq Tabcr) 10 meq PO DAILY [facility] Stop: 04/02/23 08:59 Last Admin: 03/11/23 10:25 Dose: 10 meq Umeclidinium/Vilanterol (Umeclidinium/Vilanterol 62.5/25mcg 7 Puffs/Inhaler) 1 puffs INH DAILY [facility] Stop: 03/30/23 08:59 Last Admin: 03/11/23 13:37 Dose: 1 puffs Vancomycin HCl (Vancomycin Hcl 125 Mg/2.5ml Soln) 125 mg PO Q6 [facility] Stop: 03/18/23 17:59 Last Admin: 03/11/23 13:37 Dose: 125 mg (5) Closed fracture of right proximal humerus Encounter type: initial encounter Fracture morphology: other fracture Fracture alignment: displaced Qualified Code(s): S42.291A - Other displaced fracture of upper end of right humerus, initial encounter for closed fracture
[2023-03-11] MEDS: MELATONIN 3 MG TAB PO PRN (21:02)
[2023-03-12] MEDS ORDERED: LORazepam 0.25 MG in SYRINGE 0.125 ML IV STA (02:13)
[2023-03-12] MEDS ORDERED: SODIUM CHLORIDE 0.9% 500 ML IV SCH ×2 (03:15→23:30)
[2023-03-12] MEDS ORDERED: OLANZapine 10 MG/2.1 ML SDV IM STA (03:15)
[2023-03-12] MEDS: ACETAMINOPHEN 500 MG TAB PO SCH ×2 (06:35→15:53)
[2023-03-12] MEDS: CHERRY SYRUP 5 ML UDP PO SCH ×3 (06:35→18:24)
[2023-03-12] MEDS: VANCOMYCIN HCL 125 MG/2.5ML SOLN PO SCH ×3 (06:35→18:24)
[2023-03-12] MEDS: LEVOTHYROXINE SODIUM 100 MCG TABLET PO SCH (06:35)
[2023-03-12 08:21] LABS: Hemoglobin 9.5 g/dl (12.0-16.0); Mean Corpuscular Hemoglobin 29.9 pg (25.0-34.0); Mean Corpuscular Hgb Conc 32.8 g/dL (32.0-36.0); Mean Corpuscular Volume 91.2 fL (80.0-100.0); Mean Platelet Volume 10.2 fL (9.4-12.4); Nucleated RBC # (auto) 0.03 K/uL (0.00-0.12); Nucleated RBC % (auto) 0.2 %; Platelet Count 180 K/uL (130-400); RDW Standard Deviation 48.9 fL (36.4-46.3); Red Blood Count 3.18 M/uL (4.20-5.40); White Blood Count 19.74 K/ul (4.8-10.8)
[2023-03-12 08:31] LABS: Calcium 7.5 mg/dl (8.6-10.3); Magnesium 1.6 mg/dl (1.7-2.4); Potassium 3.6 mmol/L (3.5-5.1)
[2023-03-12 08:38] LABS: BUN Creatinine Ratio 36.6 (10-20); Creatinine Clr Calc Pharmacy 96.5 ml/min; Est GFR (African American) 118.8 ml/min; Est GFR (Non-African American) 102.5 ml/min; Phosphorus 3.9 mg/dl (2.5-4.9)
[2023-03-12 08:50] LABS: Basophils # (auto) 0.09 K/uL (0.00-0.20); Basophils % (auto) 0.5 %; Echinocytes 2+; Eosinophils # (auto) 0.02 K/uL (0.00-0.50); Eosinophils % (auto) 0.1 %; Immature Granulocytes # (auto) 1.01 K/uL (0.01-0.20); Immature Granulocytes % (auto) 5.1 %; Lymphocytes # (auto) 0.93 K/uL (1.20-3.40); Lymphocytes % (auto) 4.7 %; Monocytes # (auto) 0.63 K/uL (0.11-0.59); Monocytes % (auto) 3.2 %; Neutrophils # (auto) 17.06 K/uL (1.40-6.50); Neutrophils % (auto) 86.4 %; Polychromasia 1+
[2023-03-12 08:51] LABS: Toxic Granulation 2+
[2023-03-12] MEDS: METOPROLOL SUCC 25MG EXT REL TAB PO SCH (09:00)
[2023-03-12] MEDS: ADVANCED PROBIOTIC 1250 MG CAPSULE PO SCH (09:00)
[2023-03-12] MEDS: DICYCLOMINE HCL 10 MG CAP PO SCH ×3 (09:00→20:34)
[2023-03-12] MEDS: FUROSEMIDE 20 MG TAB PO SCH ×2 (09:00→22:03)
[2023-03-12] MEDS: CALCIUM CARBONATE 1250MG TAB PO SCH (09:00)
[2023-03-12] MEDS: ASPIRIN/ALUM/MAGNES/CAL CARB 325 MG TAB PO SCH (09:00)
[2023-03-12] MEDS: UMECLIDINIUM/VILANTEROL 62.5/25MCG 7 PUFFS/INHALER INH SCH (09:00)
[2023-03-12] MEDS: PANTOprazole 40 MG TAB PO SCH (09:00)
[2023-03-12] MEDS: POTASSIUM CHLORIDE 10 MEQ TABCR PO SCH (09:00)
[2023-03-12] MEDS: MULTIVITAMIN TAB PO SCH (09:00)
--- NOTE | 2023-03-12 09:03 | XRay Report ---
XR chest 1V portable HISTORY: Cough. r/o pneumonia COMPARISON: Chest CT 02/27/2023. FINDINGS: No pneumothorax. There is a right shoulder prosthesis. No acute fractures identified. The r ight lung is clear. The heart is normal in size. No evidence for pulmonary edema. Small left retrocar diac density has slightly progressed. IMPRESSION: 1. There is a small left retrocardiac density which has progressed. This may represent atelectasis or a developing pneumonia. 2. Interval placement of a right shoulder prosthesis. ACT 112: Negative or not required by law. Electronically signed by: Morris Lal M.D. 03/12/2023 9:01 AM
--- NOTE | 2023-03-12 12:38 | Hospitalist Progress Note ---
Date of Service March 12, 2023 Assessment & Plan (1) Sepsis due to urinary tract infection: Plan: Acute metabolic encephalopathy: Shock circulatory: Sepsis due to urinary tract infection: Patient presented with falls at home Was noted to be in shock on presentation, confused, Hb 6.5, right humeral and right trochanteric fractures UA s/o UTI. Urine culture reviewed. MRSA screen negative. Was reported to be unresponsive with glucose of [address] did not show any acute abnormalities or fractures Managed for septic shock due to complicated UTI. Was admitted to ICU initially, was on Levophed, off of Levophed since morning of 03/01. Urine culture reviewed. Blood culture with no growth. 02/28 Zosyn changed to cefepime 03/01. Status post antibiotic course. Patient back to baseline mentation --> delirious post op noted 03/06 --> delirium precaution, melatonin HS --> appears improved but at high risk of recurrence. Avoid benadryl unless absolutely necessary for allergic reaction. She has been feeling much better but remains weak and lethargic Adriana hemodynamically stable and without any acute symptoms Has had physical therapy evaluation and recommended SNF-patient wants to go to [facility] Acute confusion with acute metabolic and cephalopathy at presentation Condition was worse last night when she was aggressive and taking out the IV lines She required Ativan and Zyprexa and also restraint for the limbs She was alert awake and oriented during examination but later on it happened again She is back on restraint She will be given Zyprexa ODT for acute symptoms as needed Leukocytosis White count went up to 21,000 Likely secondary to C. difficile colitis infection Chest x-ray did not show any pneumonia Could be secondary to UTI and will check urine culture again Leukocytosis has been improving C. difficile: Patient was having loose stool and tested for C. difficile 03/08, came back positive. P.o. vancomycin started 03/08, monitor frequency/consistency of bowel movement. Maintain contact precaution. Stilly w/ liquidy freq stools; wbc uptrending. If worsening or not improving freq/consistency of stool, consider GI consult. Continues to have ongoing diarrhea Will try Bentyl but no Imodium Still having diarrhea and the white count has been improving (2) Shock circulatory: Plan: As above (3) Acute metabolic encephalopathy: Plan: As above and seems to be resolved following treatment (4) Fracture of greater trochanter of right femur: Plan: Fracture of greater trochanter of right femur: No surgical intervention Fracture, humerus: Secondary to fall at home Severe fracture of the right humerus with intraarticular bone fragments noted on scan. Age-related osteoporosis with current pathological fracture, R humerus and R hi p Appreciate Ortho input and recommendation Keep patient NWB RUE. Continue sling in RUE. Status post right reverse TSA 03/05/2023. Pain control, bowel regimen as appropriate. WBAT for RLE per ortho. Will have f/u with Ortho ortho 2 weeks post op. Continue with the PT and OT (5) Closed fracture of right proximal humerus: Plan: Status post right reverse total shoulder arthroplasty on 03/05/2023 (6) Recurrent falls: Plan: Multifactorial and mechanical falls (7) TAMIKO (acute kidney injury): Plan: TAMIKO (acute kidney injury): Plan: Cont hemodynamic support and IVF per ICU team. Likely from septic shock Hold home diuretics Avoid nephrotoxins and monitor resolved. Creatinine remains at normal range (8) Small cell lung cancer in adult: Plan: Small cell lung cancer in adult -on carboplatin and etoposide with last treatment just a few days ago [employer]. Also on pegfilgrastim. WBC on admission at 57 K. Patient presented with septic shock, will hold all chemotherapy medications. Follow-up with oncology as an outpatient upon discharge. No acute issues Remains a smoker (9) Atrial flutter, paroxysmal: Plan: Rate is controlled (10) COPD (chronic obstructive pulmonary disease): Plan: COPD: Chronic, stable. Continue home Anoro Ellipta (11) Postsurgical hypothyroidism: Plan: Continue replacement Plan Acute on chronic anemia: Hemoglobin at baseline around 9. Hb 6.5. Likely blood loss secondary to acute fracture on background of chronic anemia likely 2/2 chemotherapy. s/p 2 PRBC, hemoglobin stable around 9 --Hb 7.0 post op noted 03/06. s/p 1 more unit, f/u HnH stable. HnH in AM Monitor. Transfuse PRN to keep Hb >7 Other chronic medical conditions: Small cell lung cancer in adult -on carboplatin and etoposide with last treatment just a few days ago [employer]. Also on pegfilgrastim. WBC on admission at 57 K. Patient presented with septic shock, will hold all chemotherapy medi cations. Follow-up with oncology as an outpatient upon discharge. Current smoker: Long history of smoking, apparently she quit smoking last month, will follow. Protein malnutrition: Nutrition consult Postsurgical hypothyroidism: Continue home levothyroxine COPD: Chronic, stable. Continue home Anoro Ellipta Osteoporosis: Severe and likely cause of fractures in the setting of protein malnutrition chemotherapy. DVT prophylaxis: scds. aspirin. Full code Dispo: Palliative consult, PT/OT when able, CM to assist with DC planning. had c diff, w/ multiple loose stools, await clinical improvement of c diff. Admission and Anticipated Discharge Date Admission Date: February 27, 2023 Subjective 03/11/2023 The patient was seen and examined in telemetry unit She has been pleasantly confused but denies any significant symptoms Complains of pain in the right shoulder and some pain in the legs as well Has been having diarrhea without any abdominal pain, nausea and or vomiting 03/12/2023 The patient was seen and examined in telemetry unit She has had acute delirium last evening and required intravenous Ativan and IM Zyprexa and also restraint This morning she has been much better and does not have any acute delirium Her delirium is on and off as per the nursing staff Denies any other significant symptoms except diarrhea Review of Systems Review of Systems: All systems reviewed and are unremarkable except as noted below Physical Exam Physical Exam: Sitting at the edge of the bed without any acute distress Constitutional: + ill appearing and + thin Eyes: PERRL, conjunctivae normal, anicteric sclerae ENMT: external ear and nose normal, oropharynx normal Neck: trachea midline, no thyromegaly Respiratory: no respiratory distress Auscultation: + diminished lung sounds and + crackles (Occasional crackles at the bases) Cardiovascular: Rate/Rhythm: regular rate and regular rhythm; not tachycardic Heart Sounds: normal S1, normal S2 and + murmur Extremities: + edema (Trace edema bilaterally) Gastrointestinal (Abdomen): Inspection/Auscultation: normal bowel sounds; abdomen not distended Percussion/Palpation: abdomen soft; abdomen nontender Musculoskeletal: No acute arthritis involving any of the joint Neurologic: Alert, awake and oriented x 3 during my examination. Generally weak but moving all limbs without any focal neurodeficit Lymphatic: no cervical or axillary lymphadenopathy Results & Data Results & Data Vital Signs (Past 12 Hours) Vital Signs Temp Pulse Resp BP BP Pulse Ox O2 Del Method 03/12/23 11:26 34.4 C L 76 18 105/70 95 Room Air 03/12/23 07:25 75 18 167/81 H 98 Room Air 03/12/23 04:10 108/61 03/12/23 03:53 103/52 L 03/12/23 03:09 36.7 C 66 16 82/57 L 97 Room Air Laboratory Results Short CBC 03/12/23 Range/Units 08:08 WBC 19.74 H (4.8-10.8) K/ul Hgb 9.5 L (12.0-16.0) g/dl Hct 29.0 L (37.0-47.0) % Plt Count 180 (130-400) K/uL BMP 03/12/23 08:08 Sodium 135 L Potassium 3.6 Chloride 102 Carbon Dioxide 26 BUN 15 Creatinine 0.41 L Glucose 71 Calcium 7.5 L Medications Administered Current Inpatient Medications Acetaminophen (Acetaminophen 500 Mg Tab) 1,000 mg PO Q8 KVNG Stop: 04/04/23 13:59 Last Admin: 03/12/23 06:35 Dose: Not Given Al Hydrox/Mg Hydrox/Simethicone (Aluminum/Magnesium Susp 30 Ml Udc) 15 ml PO Q4H PRN PRN Reason: Heartburn Stop: 04/04/23 12:18 Aspirin Buffered (Aspirin/Alum/Magnes/Edin Carb 325 Mg Tab) 325 mg PO DAILY KVNG Stop: 04/05/23 08:59 Last Admin: 03/11/23 10:27 Dose: 325 mg Bisacodyl (Bisacodyl 10 Mg Supp) 10 mg AR DAILY PRN PRN Reason: Constipation Stop: 04/04/23 12:18 Calcium Carbonate (Calcium Carbonate 1250mg Tab) 1,250 mg PO DAILY KVNG Stop: 03/31/23 10:59 Last Admin: 03/11/23 10:25 Dose: 1,250 mg Price Syrup (Price Syrup 5 Ml Udp) 5 ml PO Q6 KVNG Stop: 03/18/23 17:59 Last Admin: 03/12/23 06:35 Dose: Not Given Dextrose (Dextrose 50% 50 Ml Syringe) 25 - 50 ml IV UD PRN; Protocol PRN Reason: Hypoglycemia Protocol Stop: 03/30/23 00:14 Last Admin: 02/28/23 00:20 Dose: 50 ml Dicyclomine HCl (Dicyclomine Hcl 10 Mg Cap) 10 mg PO TID KVNG Stop: 04/10/23 13:59 Last Admin: 03/11/23 21:03 Dose: 10 mg Diphenhydramine HCl (Diphenhydramine Capsule 25 Mg Cap) 25 mg PO Q8H PRN PRN Reason: Itching Stop: 04/04/23 12:18 Furosemide (Furosemide 20 Mg Tab) 20 mg PO BID KVNG Stop: 04/07/23 20:59 Last Admin: 03/11/23 21:02 Dose: 20 mg Glucagon (Glucagon For Inj 1 Mg Vial) 1 mg SQ UD PRN; Protocol PRN Reason: Hypoglycemia Protocol Stop: 03/30/23 00:14 Glucose (Glucose 10 Tab/Tube) 4 - 8 tab PO UD PRN; Protocol PRN Reason: Hypoglycemia Treatment Stop: 03/30/23 00:14 Glucose (Glucose 40% Gel 15 Gm Tube) 15 - 30 gm PO UD PRN; Protocol PRN Reason: Hypoglycemia Protocol Stop: 03/30/23 00:14 Hydromorphone HCl (Hydromorphone Inj 1 Mg/Ml Syringe) 1 mg IV Q4H PRN PRN Reason: Pain Stop: 03/19/23 12:18 Last Admin: 03/05/23 16:12 Dose: 1 mg Ketorolac Tromethamine (Ketorolac Tromethamine 15 Mg/Ml Vial) 15 mg IV Q6H PRN PRN Reason: Breakthrough Pain Lactobacillus Acidophilus (Advanced Probiotic 1250 Mg Capsule) 2 cap PO DAILY KVNG Stop: 04/07/23 14:29 Last Admin: 03/11/23 10:26 Dose: 2 cap Levothyroxine Sodium (Levothyroxine Sodium 100 Mcg Tablet) 100 mcg PO DAILYBB [facility] Stop: 03/31/23 10:59 Last Admin: 03/12/23 06:35 Dose: Not Given Magnesium Hydroxide (Magnesium Hydroxide Susp 30 Ml Udc) 30 ml PO Q6H PRN PRN Reason: Constipation Stop: 04/04/23 12:18 Melatonin (Melatonin 3 Mg Tab) 6 mg PO HS PRN PRN Reason: Sleep Stop: 04/05/23 13:40 Last Admin: 03/11/23 21:02 Dose: 6 mg Metoclopramide HCl (Metoclopramide Hcl Inj 5 Mg/Ml 2 Ml Vial) 10 mg IV Q6H PRN PRN Reason: Nausea And Vomiting Stop: 04/04/23 12:18 Metoprolol Succinate (Metoprolol Succ 25mg Ext Rel Tab) 12.5 mg PO DAILY [facility] Stop: 04/03/23 08:59 Last Admin: 03/11/23 10:26 Dose: 12.5 mg Miscellaneous (Carbohydrates For Hypoglycemia ) 15 - 30 gm PO UD PRN PRN Reason: Hypoglycemia Protocol Stop: 03/30/23 00:14 Multivitamins (Multivitamin Tab) 1 tab PO QAM KVNG Stop: 04/05/23 08:59 Last Admin: 03/11/23 10:26 Dose: 1 tab Naloxone HCl (Naloxone Hcl 0.4 Mg/1 Ml Vial/Carp) 0.1 mg IV Q5M PRN PRN Reason: Oversedation/Resp Depression Stop: 04/04/23 12:18 Ondansetron HCl (Ondansetron Inj 2 Mg/Ml 2 Ml Vial) 4 mg IV Q6H PRN PRN Reason: Nausea And Vomiting Stop: 04/04/23 12:18 Last Admin: 03/12/23 03:33 Dose: 4 mg Oxycodone HCl (Oxycodone Hcl Ir 5 Mg Tab (Immediate Release)) 5 - 10 mg PO Q4H PRN PRN Reason: Pain or Pre PT Stop: 03/19/23 12:18 Last Admin: 03/05/23 13:12 Dose: 5 mg Pantoprazole Sodium (Pantoprazole 40 Mg Tab) 40 mg PO DAILY [facility] Stop: 04/01/23 08:59 Last Admin: 03/11/23 10:25 Dose: 40 mg Potassium Chloride (Potassium Chloride 10 Meq Tabcr) 10 meq PO DAILY [facility] Stop: 04/02/23 08:59 Last Admin: 03/11/23 10:25 Dose: 10 meq Umeclidinium/Vilanterol (Umeclidinium/Vilanterol 62.5/25mcg 7 Puffs/Inhaler) 1 puffs INH DAILY [facility] Stop: 03/30/23 08:59 Last Admin: 03/11/23 13:37 Dose: 1 puffs Vancomycin HCl (Vancomycin Hcl 125 Mg/2.5ml Soln) 125 mg PO Q6 [facility] Stop: 03/18/23 17:59 Last Admin: 03/12/23 06:35 Dose: Not Given (5) Closed fracture of right proximal humerus Encounter type: initial encounter Fracture morphology: other fracture Fracture alignment: displaced Qualified Code(s): S42.291A - Other displaced fracture of upper end of right humerus, initial encounter for closed fracture
[2023-03-12] MEDS: OLANZapine ZYDIS 5 MG ORALLY DIS. TAB PO PRN (17:38)
[2023-03-12] MEDS: diphenhydrAMINE Capsule 25 MG CAP PO PRN (18:21)
[2023-03-12] MEDS: MELATONIN 3 MG TAB PO PRN (22:04)
[2023-03-13] MEDS: ACETAMINOPHEN 500 MG TAB PO SCH ×3 (01:47→14:30)
[2023-03-13] MEDS: CHERRY SYRUP 5 ML UDP PO SCH ×4 (01:48→19:12)
[2023-03-13] MEDS: VANCOMYCIN HCL 125 MG/2.5ML SOLN PO SCH ×4 (01:51→19:12)
[2023-03-13 06:43] LABS: Basophils # (auto) 0.05 K/uL (0.00-0.20); Basophils % (auto) 0.4 %; Eosinophils # (auto) 0.03 K/uL (0.00-0.50); Eosinophils % (auto) 0.2 %; Hemoglobin 8.6 g/dl (12.0-16.0); Immature Granulocytes # (auto) 0.51 K/uL (0.01-0.20); Lymphocytes # (auto) 0.96 K/uL (1.20-3.40); Lymphocytes % (auto) 7.5 %; Mean Corpuscular Hemoglobin 29.6 pg (25.0-34.0); Mean Corpuscular Hgb Conc 31.9 g/dL (32.0-36.0); Mean Corpuscular Volume 92.8 fL (80.0-100.0); Mean Platelet Volume 10.1 fL (9.4-12.4); Monocytes # (auto) 0.26 K/uL (0.11-0.59); Neutrophils # (auto) 11.04 K/uL (1.40-6.50); Neutrophils % (auto) 85.9 %; Nucleated RBC # (auto) 0.02 K/uL (0.00-0.12); Nucleated RBC % (auto) 0.2 %; Platelet Count 176 K/uL (130-400); RDW Coefficient of Variation 16.4 % (11.5-14.5); RDW Standard Deviation 50.1 fL (36.4-46.3); Red Blood Count 2.91 M/uL (4.20-5.40); White Blood Count 12.85 K/ul (4.8-10.8)
[2023-03-13] MEDS: LEVOTHYROXINE SODIUM 100 MCG TABLET PO SCH (06:48)
[2023-03-13 07:09] LABS: Potassium 3.6 mmol/L (3.5-5.1)
[2023-03-13 07:10] LABS: BUN Creatinine Ratio 23.1 (10-20); Calcium 7.1 mg/dl (8.6-10.3); Creatinine Clr Calc Pharmacy 74.2 ml/min; Est GFR (African American) 109.9 ml/min; Est GFR (Non-African American) 94.8 ml/min; Magnesium 1.6 mg/dl (1.7-2.4); Phosphorus 3.7 mg/dl (2.5-4.9)
[2023-03-13] MEDS: ADVANCED PROBIOTIC 1250 MG CAPSULE PO SCH (09:53)
[2023-03-13] MEDS: UMECLIDINIUM/VILANTEROL 62.5/25MCG 7 PUFFS/INHALER INH SCH (09:53)
[2023-03-13] MEDS: MULTIVITAMIN TAB PO SCH (09:54)
[2023-03-13] MEDS: ASPIRIN/ALUM/MAGNES/CAL CARB 325 MG TAB PO SCH (09:57)
[2023-03-13] MEDS: DICYCLOMINE HCL 10 MG CAP PO SCH ×3 (09:58→20:55)
[2023-03-13] MEDS: PANTOprazole 40 MG TAB PO SCH (09:58)
[2023-03-13] MEDS: FUROSEMIDE 20 MG TAB PO SCH ×2 (09:58→20:55)
[2023-03-13] MEDS: METOPROLOL SUCC 25MG EXT REL TAB PO SCH (10:00)
[2023-03-13] MEDS: CALCIUM CARBONATE 1250MG TAB PO SCH (10:03)
[2023-03-13] MEDS: POTASSIUM CHLORIDE 10 MEQ TABCR PO SCH (10:04)
[2023-03-13] MEDS: OLANZapine ZYDIS 5 MG ORALLY DIS. TAB PO PRN ×2 (10:05→14:33)
[2023-03-13] MEDS: oxyCODONE HCL IR 5 MG TAB (IMMEDIATE RELEASE) PO PRN (10:06)
[2023-03-13] MEDS: KETOROLAC TROMETHAMINE 15 MG/ML VIAL IV PRN ×2 (10:07→20:53)
--- NOTE | 2023-03-13 14:02 | Hospitalist Progress Note ---
Date of Service March 13, 2023 Assessment & Plan (1) Sepsis due to urinary tract infection: Plan: Acute metabolic encephalopathy: Shock circulatory: Sepsis due to urinary tract infection: Patient presented with falls at home Was noted to be in shock on presentation, confused, Hb 6.5, right humeral and right trochanteric fractures UA s/o UTI. Urine culture reviewed. MRSA screen negative. Was reported to be unresponsive with glucose of [address] did not show any acute abnormalities or fractures Managed for septic shock due to complicated UTI. Was admitted to ICU initially, was on Levophed, off of Levophed since morning of 03/01. Urine culture reviewed. Blood culture with no growth. 02/28 Zosyn changed to cefepime 03/01. Status post antibiotic course. Patient back to baseline mentation --> delirious post op noted 03/06 --> delirium precaution, melatonin HS --> appears improved but at high risk of recurrence. Avoid benadryl unless absolutely necessary for allergic reaction. She has been feeling much better but remains weak and lethargic Adriana hemodynamically stable and without any acute symptoms Has had physical therapy evaluation and recommended SNF-patient wants to go to [facility] Remains reasonably stable today and is not requiring any more restraint but he still has one-to-one sitter Awaiting placement Acute confusion with acute metabolic and cephalopathy at presentation Condition was worse last night when she was aggressive and taking out the IV lines She required Ativan and Zyprexa and also restraint for the limbs She was alert awake and oriented during examination but later on it happened again She is back on restraint She will be given Zyprexa ODT for acute symptoms as needed No acute delirium remains pleasantly confused Leukocytosis White count went up to 21,000 Likely secondary to C. difficile colitis infection Chest x-ray did not show any pneumonia Could be secondary to UTI and will check urine culture again Leukocytosis has been improving Repeat urine culture has been negative C. difficile: Patient was having loose stool and tested for C. difficile 03/08, came back positive. P.o. vancomycin started 03/08, monitor frequency/consistency of bowel movement. Maintain contact precaution. Stilly w/ liquidy freq stools; wbc uptrending. If worsening or not improving freq/consistency of stool, consider GI consult. Continues to have ongoing diarrhea Will try Bentyl but no Imodium Still having diarrhea and the white count has been improving (2) Shock circulatory: Plan: As above (3) Acute metabolic encephalopathy: Plan: As above and seems to be resolved following treatment (4) Fracture of greater trochanter of right femur: Plan: Fracture of greater trochanter of right femur: No surgical intervention Fracture, humerus: Secondary to fall at home Severe fracture of the right humerus with intraarticular bone fragments noted on scan. Age-related osteoporosis with current pathological fracture, R humerus and R hip Appreciate Ortho input and recommendation Keep patient NWB RUE. Continue sling in RUE. Status post right reverse TSA 03/05/2023. Pain control, bowel regimen as appropriate. WBAT for RLE per ortho. Will have f/u with Ortho ortho 2 weeks post op. Continue with the PT and OT (5) Closed fracture of right proximal humerus: Plan: Status post right reverse total shoulder arthroplasty on 03/05/2023 (6) Recurrent falls: Plan: Multifactorial and mechanical falls (7) TAMIKO (acute kidney injury): Plan: TAMIKO (acute kidney injury): Plan: Cont hemodynamic support and IVF per ICU team. Likely from septic shock Hold home diuretics Avoid nephrotoxins and monitor resolved. Creatinine remains at normal range (8) Small cell lung cancer in adult: Plan: Small cell lung cancer in adult -on carboplatin and etoposide with last saji tment just a few days ago [employer]. Also on pegfilgrastim. WBC on admission at 57 K. Patient presented with septic shock, will hold all chemotherapy medications. Follow-up with oncology as an outpatient upon discharge. No acute issues Remains a smoker (9) Atrial flutter, paroxysmal: Plan: Rate is controlled (10) COPD (chronic obstructive pulmonary disease): Plan: COPD: Chronic, stable. Continue home Anoro Ellipta (11) Postsurgical hypothyroidism: Plan: Continue replacement Plan Acute on chronic anemia: Hemoglobin at baseline around 9. Hb 6.5. Likely blood loss secondary to acute fracture on background of chronic anemia likely 2/2 chemotherapy. s/p 2 PRBC, hemoglobin stable around 9 --Hb 7.0 post op noted 03/06. s/p 1 more unit, f/u HnH stable. HnH in AM Monitor. Transfuse PRN to keep Hb >7 Other chronic medical conditions: Small cell lung cancer in adult -on carboplatin and etoposide with last treatment just a few days ago [employer]. Also on pegfilgrastim. WBC on admission at 57 K. Patient presented with septic shock, will hold all chemotherapy medications. Follow-up with oncology as an outpatient upon discharge. Current smoker: Long history of smoking, apparently she quit smoking last month, will follow. Protein malnutrition: Nutrition consult Postsurgical hypothyroidism: Continue home levothyroxine COPD: Chronic, stable. Continue home Anoro Ellipta Osteoporosis: Severe and likely cause of fractures in the setting of protein malnutrition chemotherapy. DVT prophylaxis: scds. aspirin. Full code Dispo: Palliative consult, PT/OT when able, CM to assist with DC planning. had c diff, w/ multiple loose stools, await clinical improvement of c diff. Will have [facility] palliative medicine evaluation as an outpatient Admission and Anticipated Discharge Date Admission Date: February 27, 2023 Subjective 03/11/2023 The patient was seen and examined in telemetry unit She has been pleasantly confused but denies any significant symptoms Complains of pain in the right shoulder and some pain in the legs as well Has been having diarrhea without any abdominal pain, nausea and or vomiting 03/12/2023 The patient was seen and examined in telemetry unit She has had acute delirium last evening and required intravenous Ativan and IM Zyprexa and also restraint This morning she has been much better and does not have any acute delirium Her delirium is on and off as per the nursing staff Denies any other significant symptoms except diarrhea 03/13/2023 The patient was seen and examined in telemetry unit She is out of bed on a chair and remains pleasantly confused Complains to have some pain in the right elbow Denies any chest pain, palpitation or shortness of breath No nausea no vomiting Review of Systems Review of Systems: All systems reviewed and are unremarkable except as noted below Physical Exam Physical Exam: Sitting at the edge of the bed without any acute distress Constitutional: + ill appearing and + thin Eyes: PERRL, conjunctivae normal, anicteric sclerae ENMT: external ear and nose normal, oropharynx normal Neck: trachea midline, no thyromegaly Respiratory: no respiratory distress Auscultation: + diminished lung sounds and + crackles (Occasional crackles at the bases) Cardiovascular: Rate/Rhythm: regular rate and regular rhythm; not tachycardic Heart Sounds: normal S1, normal S2 and + murmur Extremities: + edema (Trace edema bilaterally) Gastrointestinal (Abdomen): Inspection/Auscultation: normal bowel sounds; abdomen not distended Percussion/Palpation: abdomen soft; abdomen nontender Musculoskeletal: No acute arthritis involving any of the joint Neurologic: Alert and awake. Pleasantly confused Lymphatic: no cervical or axillary lymphadenopathy Results & Data Results & Data Vital Signs (Past 12 Hours) Vital Signs Temp Pulse Resp BP Pulse Ox O2 Del Method 03/13/23 10:54 34.6 C L 67 18 96/50 L 96 Room Air 03/13/23 06:58 36.6 C 72 18 126/70 100 Room Air 03/13/23 03:47 36.4 C L 89 20 107/51 L 93 Room Air Laboratory Results Short CBC 03/13/23 Range/Units 06:24 WBC 12.85 H (4.8-10.8) K/ul Hgb 8.6 L (12.0-16.0) g/dl Hct 27.0 L (37.0-47.0) % Plt Count 176 (130-400) K/uL BMP 03/13/23 06:24 Sodium 139 Potassium 3.6 Chloride 104 Carbon Dioxide 30 BUN 12 Creatinine 0.52 L Glucose 71 Calcium 7.1 L Medications Administered Current Inpatient Medications Acetaminophen (Acetaminophen 500 Mg Tab) 1,000 mg PO Q8 KVNG Stop: 04/04/23 13:59 Last Admin: 03/13/23 06:04 Dose: Not Given Al Hydrox/Mg Hydrox/Simethicone (Aluminum/Magnesium Susp 30 Ml Udc) 15 ml PO Q4H PRN PRN Reason: Heartburn Stop: 04/04/23 12:18 Aspirin Buffered (Aspirin/Alum/Magnes/Edin Carb 325 Mg Tab) 325 mg PO DAILY KVNG Stop: 04/05/23 08:59 Last Admin: 03/13/23 09:57 Dose: 325 mg Bisacodyl (Bisacodyl 10 Mg Supp) 10 mg NE DAILY PRN PRN Reason: Constipation Stop: 04/04/23 12:18 Calcium Carbonate (Calcium Carbonate 1250mg Tab) 1,250 mg PO DAILY KVNG Stop: 03/31/23 10:59 Last Admin: 03/13/23 10:03 Dose: 1,250 mg Price Syrup (Price Syrup 5 Ml Udp) 5 ml PO Q6 KVNG Stop: 03/18/23 17:59 Last Admin: 03/13/23 06:03 Dose: 5 ml Dextrose (Dextrose 50% 50 Ml Syringe) 25 - 50 ml IV UD PRN; Protocol PRN Reason: Hypoglycemia Protocol Stop: 03/30/23 00:14 Last Admin: 02/28/23 00:20 Dose: 50 ml Dicyclomine HCl (Dicyclomine Hcl 10 Mg Cap) 10 mg PO TID [facility] Stop: 04/10/23 13:59 Last Admin: 03/13/23 09:58 Dose: 10 mg Diphenhydramine HCl (Diphenhydramine Capsule 25 Mg Cap) 25 mg PO Q8H PRN PRN Reason: Itching Stop: 04/04/23 12:18 Last Admin: 03/12/23 18:21 Dose: 25 mg Furosemide (Furosemide 20 Mg Tab) 20 mg PO BID [facility] Stop: 04/07/23 20:59 Last Admin: 03/13/23 09:58 Dose: 20 mg Glucagon (Glucagon For Inj 1 Mg Vial) 1 mg SQ UD PRN; Protocol PRN Reason: Hypoglycemia Protocol Stop: 03/30/23 00:14 Glucose (Glucose 10 Tab/Tube) 4 - 8 tab PO UD PRN; Protocol PRN Reason: Hypoglycemia Treatment Stop: 03/30/23 00:14 Glucose (Glucose 40% Gel 15 Gm Tube) 15 - 30 gm PO UD PRN; Protocol PRN Reason: Hypoglycemia Protocol Stop: 03/30/23 00:14 Hydromorphone HCl (Hydromorphone Inj 1 Mg/Ml Syringe) 1 mg IV Q4H PRN PRN Reason: Pain Stop: 03/19/23 12:18 Last Admin: 03/05/23 16:12 Dose: 1 mg Ketorolac Tromethamine (Ketorolac Tromethamine 15 Mg/Ml Vial) 15 mg IV Q6H PRN PRN Reason: Breakthrough Pain Last Admin: 03/13/23 10:07 Dose: 15 mg Lactobacillus Acidophilus (Advanced Probiotic 1250 Mg Capsule) 2 cap PO DAILY [facility] Stop: 04/07/23 14:29 Last Admin: 03/13/23 09:53 Dose: 2 cap Levothyroxine Sodium (Levothyroxine Sodium 100 Mcg Tablet) 100 mcg PO DAILYBB [facility] Stop: 03/31/23 10:59 Last Admin: 03/13/23 06:48 Dose: 100 mcg Magnesium Hydroxide (Magnesium Hydroxide Susp 30 Ml Udc) 30 ml PO Q6H PRN PRN Reason: Constipation Stop: 04/04/23 12:18 Melatonin (Melatonin 3 Mg Tab) 6 mg PO HS PRN PRN Reason: Sleep Stop: 04/05/23 13:40 Last Admin: 03/12/23 22:04 Dose: 6 mg Metoprolol Succinate (Metoprolol Succ 25mg Ext Rel Tab) 12.5 mg PO DAILY KVNG Stop: 04/03/23 08:59 Last Admin: 03/13/23 10:00 Dose: Not Given Miscellaneous (Carbohydrates For Hypoglycemia ) 15 - 30 gm PO UD PRN PRN Reason: Hypoglycemia Protocol Stop: 03/30/23 00:14 Multivitamins (Multivitamin Tab) 1 tab PO QAM [facility]NG Stop: 04/05/23 08:59 Last Admin: 03/13/23 09:54 Dose: 1 tab Naloxone HCl (Naloxone Hcl 0.4 Mg/1 Ml Vial/Carp) 0.1 mg IV Q5M PRN PRN Reason: Oversedation/Resp Depression Stop: 04/04/23 12:18 Olanzapine (Olanzapine Zydis 5 Mg Orally Dis. Tab) 5 mg PO BID PRN PRN Reason: Agitation Stop: 04/11/23 20:59 Last Admin: 03/13/23 10:05 Dose: 5 mg Ondansetron HCl (Ondansetron Inj 2 Mg/Ml 2 Ml Vial) 4 mg IV Q6H PRN PRN Reason: Nausea And Vomiting Stop: 04/04/23 12:18 Last Admin: 03/12/23 03:33 Dose: 4 mg Oxycodone HCl (Oxycodone Hcl Ir 5 Mg Tab (Immediate Release)) 5 - 10 mg PO Q4H PRN PRN Reason: Pain or Pre PT Stop: 03/19/23 12:18 Last Admin: 03/13/23 10:06 Dose: 5 mg Pantoprazole Sodium (Pantoprazole 40 Mg Tab) 40 mg PO DAILY [facility] Stop: 04/01/23 08:59 Last Admin: 03/13/23 09:58 Dose: 40 mg Potassium Chloride (Potassium Chloride 10 Meq Tabcr) 10 meq PO DAILY [facility] Stop: 04/02/23 08:59 Last Admin: 03/13/23 10:04 Dose: 10 meq Umeclidinium/Vilanterol (Umeclidinium/Vilanterol 62.5/25mcg 7 Puffs/Inhaler) 1 puffs INH DAILY [facility] Stop: 03/30/23 08:59 Last Admin: 03/13/23 09:53 Dose: 1 puffs Vancomycin HCl (Vancomycin Hcl 125 Mg/2.5ml Soln) 125 mg PO Q6 [facility] Stop: 03/18/23 17:59 Last Admin: 03/13/23 06:03 Dose: 125 mg (5) Closed fracture of right proximal humerus Encounter type: initial encounter Fracture morphology: other fracture Fracture alignment: displaced Qualified Code(s): S42.291A - Other displaced fracture of upper end of right humerus, initial encounter for closed fracture
[2023-03-13] MEDS: HYDROmorphone INJ 1 MG/ML SYRINGE IV PRN (17:54)
[2023-03-13] MEDS: MELATONIN 3 MG TAB PO PRN (20:53)
[2023-03-13] MEDS: diphenhydrAMINE Capsule 25 MG CAP PO PRN (20:55)
[2023-03-13] MEDS ORDERED: SODIUM CHLORIDE 0.9% 250 ML IV SCH (23:45)
[2023-03-14] MEDS: ACETAMINOPHEN 500 MG TAB PO SCH ×4 (02:37→22:36)
[2023-03-14] MEDS: MAGNESIUM OXIDE 400 MG TAB PO SCH ×3 (02:37→22:35)
[2023-03-14] MEDS: CHERRY SYRUP 5 ML UDP PO SCH ×5 (02:38→22:34)
[2023-03-14] MEDS: VANCOMYCIN HCL 125 MG/2.5ML SOLN PO SCH ×5 (02:38→22:34)
[2023-03-14] MEDS: HYDROmorphone INJ 1 MG/ML SYRINGE IV PRN (02:39)
[2023-03-14] MEDS: LEVOTHYROXINE SODIUM 100 MCG TABLET PO SCH (06:35)
[2023-03-14 07:09] LABS: BUN Creatinine Ratio 23.2 (10-20); Calcium 6.9 mg/dl (8.6-10.3); Creatinine Clr Calc Pharmacy 55.6 ml/min; Est GFR (African American) 100.1 ml/min; Est GFR (Non-African American) 86.4 ml/min; Potassium 3.6 mmol/L (3.5-5.1)
[2023-03-14 07:19] LABS: Basophils # (auto) 0.03 K/uL (0.00-0.20); Basophils % (auto) 0.2 %; Eosinophils # (auto) 0.02 K/uL (0.00-0.50); Eosinophils % (auto) 0.2 %; Hematocrit (blood only) 24.9 % (37.0-47.0); Immature Granulocytes # (auto) 0.51 K/uL (0.01-0.20); Lymphocytes # (auto) 0.99 K/uL (1.20-3.40); Lymphocytes % (auto) 7.8 %; Mean Corpuscular Hemoglobin 29.6 pg (25.0-34.0); Mean Corpuscular Hgb Conc 32.1 g/dL (32.0-36.0); Mean Corpuscular Volume 92.2 fL (80.0-100.0); Mean Platelet Volume 9.9 fL (9.4-12.4); Monocytes # (auto) 0.35 K/uL (0.11-0.59); Monocytes % (auto) 2.8 %; Neutrophils # (auto) 10.73 K/uL (1.40-6.50); Platelet Count 195 K/uL (130-400); RDW Standard Deviation 51.1 fL (36.4-46.3); White Blood Count 12.63 K/ul (4.8-10.8)
[2023-03-14 07:23] LABS: Thyroid Stimulating Hormone 17.524 uIu/ml (0.300-4.500)
[2023-03-14 07:59] LABS: T4 Free Thyroxine 0.82 ng/dl (0.61-1.60)
[2023-03-14] MEDS: CALCIUM CARBONATE 1250MG TAB PO SCH (09:21)
[2023-03-14] MEDS: METOPROLOL SUCC 25MG EXT REL TAB PO SCH (09:21)
[2023-03-14] MEDS: DICYCLOMINE HCL 10 MG CAP PO SCH ×3 (09:21→22:37)
[2023-03-14] MEDS: ASPIRIN/ALUM/MAGNES/CAL CARB 325 MG TAB PO SCH (09:21)
[2023-03-14] MEDS: ADVANCED PROBIOTIC 1250 MG CAPSULE PO SCH (09:21)
[2023-03-14] MEDS: MULTIVITAMIN TAB PO SCH (09:22)
[2023-03-14] MEDS: UMECLIDINIUM/VILANTEROL 62.5/25MCG 7 PUFFS/INHALER INH SCH (09:22)
[2023-03-14] MEDS: FUROSEMIDE 20 MG TAB PO SCH ×2 (09:22→22:38)
[2023-03-14] MEDS: PANTOprazole 40 MG TAB PO SCH (09:22)
[2023-03-14] MEDS: POTASSIUM CHLORIDE 10 MEQ TABCR PO SCH (09:22)
--- NOTE | 2023-03-14 14:17 | Hospitalist Progress Note ---
Date of Service March 14, 2023 Assessment & Plan (1) Sepsis due to urinary tract infection: Plan: Acute metabolic encephalopathy: Shock circulatory: Sepsis due to urinary tract infection: Patient presented with falls at home Was noted to be in shock on presentation, confused, Hb 6.5, right humeral and right trochanteric fractures UA s/o UTI. Urine culture reviewed. MRSA screen negative. Was reported to be unresponsive with glucose of [address] did not show any acute abnormalities or fractures Managed for septic shock due to complicated UTI. Was admitted to ICU initially, was on Levophed, off of Levophed since morning of 03/01. Urine culture reviewed. Blood culture with no growth. 02/28 Zosyn changed to cefepime 03/01. Status post antibiotic course. Patient back to baseline mentation --> delirious post op noted 03/06 --> delirium precaution, melatonin HS --> appears improved but at high risk of recurrence. Avoid benadryl unless absolutely necessary for allergic reaction. She has been feeling much better but remains weak and lethargic Adriana hemodynamically stable and without any acute symptoms Has had physical therapy evaluation and recommended SNF-patient wants to go to [facility] Remains reasonably stable today and is not requiring any more restraint but he still has one-to-one sitter Requiring one-to-one sitter otherwise medically stable Awaiting more physical therapy and placement Acute confusion with acute metabolic and cephalopathy at presentation Condition was worse last night when she was aggressive and taking out the IV lines She required Ativan and Zyprexa and also restraint for the limbs She was alert awake and oriented during examination but later on it happened again She is back on restraint She will be given Zyprexa ODT for acute symptoms as needed Does not require any more restraint Remains on one-to-one sitter which can be taken of with close observation Leukocytosis White count went up to 21,000 Likely secondary to C. difficile colitis infection Chest x-ray did not show any pneumonia Could be secondary to UTI and will check urine culture again Leukocytosis has been improving Repeat urine culture has been negative White count remains mildly elevated at 12.63 and not any worse C. difficile: Patient was having loose stool and tested for C. difficile 03/08, came back positive. P.o. vancomycin started 03/08, monitor frequency/consistency of bowel movement. Maintain contact precaution. Stilly w/ liquidy freq stools; wbc uptrending. If worsening or not improving freq/consistency of stool, consider GI consult. Continues to have ongoing diarrhea Will try Bentyl but no Imodium Diarrhea is improving (2) Shock circulatory: Plan: As above (3) Acute metabolic encephalopathy: Plan: As above and seems to be resolved following treatment (4) Fracture of greater trochanter of right femur: Plan: Fracture of greater trochanter of right femur: No surgical intervention Fracture, humerus: Secondary to fall at home Severe fracture of the right humerus with intraarticular bone fragments noted on scan. Age-related osteoporosis with current pathological fracture, R humerus and R hip Appreciate Ortho input and recommendation Keep patient NWB RUE. Continue sling in RUE. Status post right reverse TSA 03/05/2023. Pain control, bowel regimen as appropriate. WBAT for RLE per ortho. Will have f/u with Ortho ortho 2 weeks post op. Continue with the PT and OT-and awaiting placement (5) Closed fracture of right proximal humerus: Plan: Status post right reverse total shoulder arthroplasty on 03/05/2023 (6) Recurrent falls: Plan: Multifactorial and mechanical falls (7) TAMIKO (acute kidney injury): Plan: TAMIKO (acute kidney injury): Plan: Cont hemodynamic support and IVF per ICU team. Likely from septic shock Hold home diuretics Avoid nephrotoxins and monitor resolved. Creatinine remains at normal range (8) Small cell lung cancer in adult: Plan: Small cell lung cancer in adult -on carboplatin and etoposide with last treatment just a few days ago [facility]. Also on pegfilgrastim. WBC on admission at 57 K. Patient presented with septic shock, will hold all chemotherapy medications. Follow-up with oncology as an outpatient upon discharge. No acute issues Remains a smoker (9) Atrial flutter, paroxysmal: Plan: Rate is controlled (10) COPD (chronic obstructive pulmonary disease): Plan: COPD: Chronic, stable. Continue home Anoro Ellipta (11) Postsurgical hypothyroidism: Plan: Continue replacement Plan Acute on chronic anemia: Hemoglobin at baseline around 9. Hb 6.5. Likely blood loss secondary to acute fracture on background of chronic anemia likely 2/2 chemotherapy. s/p 2 PRBC, hemoglobin stable around 9 --Hb 7.0 post op noted 03/06. s/p 1 more unit, f/u HnH stable. HnH in AM Monitor. Transfuse PRN to keep Hb >7 Other chronic medical conditions: Small cell lung cancer in adult -on carboplatin and etoposide with last treatment just a few days ago [facility]OR[facility]. Also on pegfilgrastim. WBC on admission at 57 K. Patient presented with septic shock, will hold all chemotherapy medications. Follow-up with oncology as an outpatient upon discharge. Current smoker: Long history of smoking, apparently she quit smoking last month, will follow. Protein malnutrition: Nutrition consult Postsurgical hypothyroidism: Continue home levothyroxine COPD: Chronic, stable. Continue home Anoro Ellipta Osteoporosis: Severe and likely cause of fractures in the setting of protein malnutrition chemotherapy. DVT prophylaxis: scds. aspirin. Full code Dispo: Palliative consult, PT/OT when able, CM to assist with DC planning. had c diff, w/ multiple loose stools, await clinical improvement of c diff. Will have [facility] palliative medicine evaluation as an outpatient Admission and Anticipated Discharge Date Admission Date: February 27, 2023 Subjective 03/11/2023 The patient was seen and examined in telemetry unit She has been pleasantly confused but denies any significant symptoms Complains of pain in the right shoulder and some pain in the legs as well Has been having diarrhea without any abdominal pain, nausea and or vomiting 03/12/2023 The patient was seen and examined in telemetry unit She has had acute delirium last evening and required intravenous Ativan and IM Zyprexa and also restraint This morning she has been much better and does not have any acute delirium Her delirium is on and off as per the nursing staff Denies any other significant symptoms except diarrhea 03/13/2023 The patient was seen and examined in telemetry unit She is out of bed on a chair and remains pleasantly confused Complains to have some pain in the right elbow Denies any chest pain, palpitation or shortness of breath No nausea no vomiting 03/14/2023 The patient was seen and examined in telemetry unit She remains pleasantly confused and is still requiring one-to-one sitter Does not require any more restraint Denies any significant symptoms Review of Systems Review of Systems: All systems reviewed and are unremarkable except as noted below Neurologic: Remains pleasantly confused and generally weak Physical Exam Physical Exam: Sitting at the edge of the bed without any acute distress Constitutional: + ill appearing and + thin Eyes: PERRL, conjunctivae normal, anicteric sclerae ENMT: external ear and nose normal, oropharynx normal Neck: trachea midline, no thyromegaly Respiratory: no respiratory distress Auscultation: + diminished lung sounds and + crackles (Occasional crackles at the bases) Cardiovascular: Rate/Rhythm: regular rate and regular rhythm; not tachycardic Heart Sounds: normal S1, normal S2 and + murmur Extremities: + edema (Trace edema bilaterally) Gastrointestinal (Abdomen): Inspection/Auscultation: normal bowel sounds; abdomen not distended Percussion/Palpation: abdomen soft; abdomen nontender Musculoskeletal: Right elbow pain with movement right upper extremity is in a sling Neurologic: Pleasantly confused. Generally very weak Lymphatic: no cervical or axillary lymphadenopathy Results & Data Results & Data Vital Signs (Past 12 Hours) Vital Signs Temp Pulse Pulse Resp BP Pulse Ox O2 Del Method 03/14/23 10:50 36.7 C 104 H 17 101/70 91 Room Air 03/14/23 08:20 Room Air 03/14/23 07:45 110 H 03/14/23 07:00 37.0 C 112 H 16 103/54 L 92 Room Air 03/14/23 02:28 36.5 C 106 H 20 94/59 L 90 Room Air Laboratory Results Short CBC 03/14/23 Range/Units 06:24 WBC 12.63 H (4.8-10.8) K/ul Hgb 8.0 L (12.0-16.0) g/dl Hct 24.9 L (37.0-47.0) % Plt Count 195 (130-400) K/uL BMP 03/14/23 06:24 Sodium 139 Potassium 3.6 Chloride 103 Carbon Dioxide 30 BUN 16 Creatinine 0.69 Glucose 70 Calcium 6.9 L Medications Administered Current Inpatient Medications Acetaminophen (Acetaminophen 500 Mg Tab) 1,000 mg PO Q8 KVNG Stop: 04/04/23 13:59 Last Admin: 03/14/23 13:00 Dose: 1,000 mg Al Hydrox/Mg Hydrox/Simethicone (Aluminum/Magnesium Susp 30 Ml Udc) 15 ml PO Q4H PRN PRN Reason: Heartburn Stop: 04/04/23 12:18 Aspirin Buffered (Aspirin/Alum/Magnes/Edin Carb 325 Mg Tab) 325 mg PO DAILY KVNG Stop: 04/05/23 08:59 Last Admin: 03/14/23 09:21 Dose: 325 mg Bisacodyl (Bisacodyl 10 Mg Supp) 10 mg MA DAILY PRN PRN Reason: Constipation Stop: 04/04/23 12:18 Calcium Carbonate (Calcium Carbonate 1250mg Tab) 1,250 mg PO DAILY KVNG Stop: 03/31/23 10:59 Last Admin: 03/14/23 09:21 Dose: 1,250 mg Pirce Syrup (Price Syrup 5 Ml Udp) 5 ml PO Q6 KVNG Stop: 03/18/23 17:59 Last Admin: 03/14/23 12:59 Dose: 5 ml Dextrose (Dextrose 50% 50 Ml Syringe) 25 - 50 ml IV UD PRN; Protocol PRN Reason: Hypoglycemia Protocol Stop: 03/30/23 00:14 Last Admin: 02/28/23 00:20 Dose: 50 ml Dicyclomine HCl (Dicyclomine Hcl 10 Mg Cap) 10 mg PO TID KVNG Stop: 04/10/23 13:59 Last Admin: 03/14/23 13:01 Dose: 10 mg Diphenhydramine HCl (Diphenhydramine Capsule 25 Mg Cap) 25 mg PO Q8H PRN PRN Reason: Itching Stop: 04/04/23 12:18 Last Admin: 03/13/23 20:55 Dose: 25 mg Furosemide (Furosemide 20 Mg Tab) 20 mg PO BID KVNG Stop: 04/07/23 20:59 Last Admin: 03/14/23 09:22 Dose: 20 mg Glucagon (Glucagon For Inj 1 Mg Vial) 1 mg SQ UD PRN; Protocol PRN Reason: Hypoglycemia Protocol Stop: 03/30/23 00:14 Glucose (Glucose 10 Tab/Tube) 4 - 8 tab PO UD PRN; Protocol PRN Reason: Hypoglycemia Treatment Stop: 03/30/23 00:14 Glucose (Glucose 40% Gel 15 Gm Tube) 15 - 30 gm PO UD PRN; Protocol PRN Reason: Hypoglycemia Protocol Stop: 03/30/23 00:14 Hydromorphone HCl (Hydromorphone Inj 1 Mg/Ml Syringe) 1 mg IV Q4H PRN PRN Reason: Pain Stop: 03/19/23 12:18 Last Admin: 03/14/23 02:39 Dose: 0.5 mg Ketorolac Tromethamine (Ketorolac Tromethamine 15 Mg/Ml Vial) 15 mg IV Q6H PRN PRN Reason: Breakthrough Pain Last Admin: 03/13/23 20:53 Dose: 15 mg Lactobacillus Acidophilus (Advanced Probiotic 1250 Mg Capsule) 2 cap PO DAILY [facility] [place] Stop: 04/07/23 14:29 Last Admin: 03/14/23 09:21 Dose: 2 cap Levothyroxine Sodium (Levothyroxine Sodium 100 Mcg Tablet) 100 mcg PO DAILYBB [facility] [place] Stop: 03/31/23 10:59 Last Admin: 03/14/23 06:35 Dose: 100 mcg Magnesium Hydroxide (Magnesium Hydroxide Susp 30 Ml Udc) 30 ml PO Q6H PRN PRN Reason: Constipation Stop: 04/04/23 12:18 Magnesium Oxide (Magnesium Oxide 400 Mg Tab) 400 mg PO BID [facility] Stop: 04/12/23 20:59 Last Admin: 03/14/23 09:21 Dose: 400 mg Melatonin (Melatonin 3 Mg Tab) 6 mg PO HS PRN PRN Reason: Sleep Stop: 04/05/23 13:40 Last Admin: 03/13/23 20:53 Dose: 6 mg Metoprolol Succinate (Metoprolol Succ 25mg Ext Rel Tab) 12.5 mg PO DAILY [facility] Stop: 04/03/23 08:59 Last Admin: 03/14/23 09:21 Dose: 12.5 mg Miscellaneous (Carbohydrates For Hypoglycemia ) 15 - 30 gm PO UD PRN PRN Reason: Hypoglycemia Protocol Stop: 03/30/23 00:14 Multivitamins (Multivitamin Tab) 1 tab PO QAM [facility] [place] Stop: 04/05/23 08:59 Last Admin: 03/14/23 09:22 Dose: 1 tab Naloxone HCl (Naloxone Hcl 0.4 Mg/1 Ml Vial/Carp) 0.1 mg IV Q5M PRN PRN Reason: Oversedation/Resp Depression Stop: 04/04/23 12:18 Olanzapine (Olanzapine Zydis 5 Mg Orally Dis. Tab) 5 mg PO BID PRN PRN Reason: Agitation Stop: 04/11/23 20:59 Last Admin: 03/13/23 14:33 Dose: 5 mg Ondansetron HCl (Ondansetron Inj 2 Mg/Ml 2 Ml Vial) 4 mg IV Q6H PRN PRN Reason: Nausea And Vomiting Stop: 04/04/23 12:18 Last Admin: 01/07/24 03:33 Dose: 4 mg Oxycodone HCl (Oxycodone Hcl Ir 5 Mg Tab (Immediate Release)) 5 - 10 mg PO Q4H PRN PRN Reason: Pain or Pre PT Stop: 03/19/23 12:18 Last Admin: 03/13/23 10:06 Dose: 5 mg Pantoprazole Sodium (Pantoprazole 40 Mg Tab) 40 mg PO DAILY [facility] Stop: 04/01/23 08:59 Last Admin: 03/14/23 09:22 Dose: 40 mg Potassium Chloride (Potassium Chloride 10 Meq Tabcr) 10 meq PO DAILY [facility] Stop: 04/02/23 08:59 Last Admin: 03/14/23 09:22 Dose: 10 meq Umeclidinium/Vilanterol (Umeclidinium/Vilanterol 62.5/25mcg 7 Puffs/Inhaler) 1 puffs INH DAILY [facility] Stop: 03/30/23 08:59 Last Admin: 03/14/23 09:22 Dose: 1 puffs Vancomycin HCl (Vancomycin Hcl 125 Mg/2.5ml Soln) 125 mg PO Q6 [facility] Stop: 03/18/23 17:59 Last Admin: 03/14/23 12:59 Dose: 125 mg (5) Closed fracture of right proximal humerus Encounter type: initial encounter Fracture morphology: other fracture Fracture alignment: displaced Qualified Code(s): S42.291A - Other displaced fracture of upper end of right humerus, initial encounter for closed fracture
[2023-03-15 06:33] LABS: Hematocrit (blood only) 21.3 % (37.0-47.0); Hemoglobin 6.9 g/dl (12.0-16.0); Mean Corpuscular Hemoglobin 29.9 pg (25.0-34.0); Mean Corpuscular Hgb Conc 32.4 g/dL (32.0-36.0); Mean Corpuscular Volume 92.2 fL (80.0-100.0); Mean Platelet Volume 9.5 fL (9.4-12.4); Platelet Count 171 K/uL (130-400); RDW Standard Deviation 51.7 fL (36.4-46.3); Red Blood Count 2.31 M/uL (4.20-5.40); White Blood Count 11.19 K/ul (4.8-10.8)
[2023-03-15] MEDS: CHERRY SYRUP 5 ML UDP PO SCH ×3 (06:42→17:20)
[2023-03-15] MEDS: LEVOTHYROXINE SODIUM 100 MCG TABLET PO SCH (06:42)
[2023-03-15] MEDS: VANCOMYCIN HCL 125 MG/2.5ML SOLN PO SCH ×3 (06:42→17:20)
[2023-03-15 06:52] LABS: BUN Creatinine Ratio 30.2 (10-20); Calcium 6.7 mg/dl (8.6-10.3); Creatinine Clr Calc Pharmacy 71.3 ml/min; Est GFR (African American) 109.2 ml/min; Est GFR (Non-African American) 94.2 ml/min; Magnesium 1.6 mg/dl (1.7-2.4); Potassium 3.4 mmol/L (3.5-5.1)
[2023-03-15 06:53] LABS: Basophils # (auto) 0.02 K/uL (0.00-0.20); Basophils % (auto) 0.2 %; Eosinophils # (auto) 0.01 K/uL (0.00-0.50); Eosinophils % (auto) 0.1 %; Immature Granulocytes # (auto) 0.48 K/uL (0.01-0.20); Immature Granulocytes % (auto) 4.3 %; Lymphocytes % (auto) 6.3 %; Monocytes % (auto) 3.6 %; Neutrophils # (auto) 9.58 K/uL (1.40-6.50); Neutrophils % (auto) 85.5 %; Polychromasia 1+; Toxic Granulation 1+
[2023-03-15 07:54] LABS: Hematocrit (blood only) 25.4 % (37.0-47.0); Hemoglobin 7.9 g/dl (12.0-16.0)
[2023-03-15] MEDS: FUROSEMIDE 20 MG TAB PO SCH ×2 (09:23→20:36)
[2023-03-15] MEDS: MAGNESIUM OXIDE 400 MG TAB PO SCH ×2 (09:23→20:36)
[2023-03-15] MEDS: ASPIRIN/ALUM/MAGNES/CAL CARB 325 MG TAB PO SCH (09:23)
[2023-03-15] MEDS: DICYCLOMINE HCL 10 MG CAP PO SCH ×3 (09:23→20:36)
[2023-03-15] MEDS: ADVANCED PROBIOTIC 1250 MG CAPSULE PO SCH (09:23)
[2023-03-15] MEDS: METOPROLOL SUCC 25MG EXT REL TAB PO SCH (09:23)
[2023-03-15] MEDS: CALCIUM CARBONATE 1250MG TAB PO SCH (09:23)
[2023-03-15] MEDS: POTASSIUM CHLORIDE 10 MEQ TABCR PO SCH (09:24)
[2023-03-15] MEDS: MULTIVITAMIN TAB PO SCH (09:24)
[2023-03-15] MEDS: UMECLIDINIUM/VILANTEROL 62.5/25MCG 7 PUFFS/INHALER INH SCH (09:24)
[2023-03-15] MEDS: PANTOprazole 40 MG TAB PO SCH (09:24)
[2023-03-15] MEDS: ACETAMINOPHEN 500 MG TAB PO SCH ×2 (14:07→23:52)
--- NOTE | 2023-03-15 14:58 | Hospitalist Progress Note ---
Date of Service March 15, 2023 Assessment & Plan (1) Sepsis due to urinary tract infection: Plan: Per Dr. Rodriguez's notes with addendum: Acute metabolic encephalopathy: Shock circulatory: Sepsis due to urinary tract infection: Patient presented with falls at home Was noted to be in shock on presentation, confused, Hb 6.5, right humeral and right trochanteric fractures UA s/o UTI. Urine culture reviewed. MRSA screen negative. Was reported to be unresponsive with glucose of [address] did not show any acute abnormalities or fractures Managed for septic shock due to complicated UTI. Was admitted to ICU initially, was on Levophed, off of Levophed since morning of 03/01. Urine culture reviewed. Blood culture with no growth. 02/28 Zosyn changed to cefepime 03/01. Status post antibiotic course. Patient back to baseline mentation --> delirious post op noted 03/06 --> delirium precaution, melatonin HS --> appears improved but at high risk of recurrence. Avoid benadryl unless absolutely necessary for allergic reaction. She has been feeling much better but remains weak and lethargic Adriana hemodynamically stable and without any acute symptoms Has had physical therapy evaluation and recommended SNF-patient wants to go to [facility] Remains reasonably stable today and is not requiring any more restraint but he still has one-to-one sitter Requiring one-to-one sitter otherwise medically stable Awaiting more physical therapy and placement 03/15 Mental status much better Did not require Zyprexa yesterday Already completed course of antibiotic Acute confusion with acute metabolic and cephalopathy at presentation Condition was worse last night when she was aggressive and taking out the IV lines She required Ativan and Zyprexa and also restraint for the limbs She was alert awake and oriented during examination but later on it happened again She is back on restraint She will be given Zyprexa ODT for acute symptoms as needed Does not require any more restraint Remains on one-to-one sitter which can be taken of with close observation Leukocytosis White count went up to 21,000 Likely secondary to C. difficile colitis infection Chest x-ray did not show any pneumonia Could be secondary to UTI and will check urine culture again Leukocytosis has been improving Repeat urine culture has been negative White count remains mildly elevated at 12.63 and not any worse 03/15 No overt signs of new infection at this point Continue to monitor C. difficile: Patient was having loose stool and tested for C. difficile 03/08, came back positive. P.o. vancomycin started 03/08, monitor frequency/consistency of bowel movement. Maintain contact precaution. Stilly w/ liquidy freq stools; wbc uptrending. If worsening or not improving freq/consistency of stool, consider GI consult. Continues to have ongoing diarrhea Will try Bentyl but no Imodium Diarrhea is improving 03/15 Diarrhea improving No abdominal pain (2) Shock circulatory: Plan: As above (3) Acute metabolic encephalopathy: Plan: As above and seems to be resolved following treatment (4) Fracture of greater trochanter of right femur: Plan: Fracture of greater trochanter of right femur: No surgical intervention Fracture, humerus: Secondary to fall at home Severe fracture of the right humerus with intraarticular bone fragments noted on scan. Age-related osteoporosis with current pathological fracture, R humerus and R hip Appreciate Ortho input and recommendation Keep patient NWB RUE. Continue sling in RUE. Status post right reverse TSA 03/05/2023. Pain control, bowel regimen as appropriate. WBAT for RLE per ortho. Will have f/u with Ortho ortho 2 weeks post op. Continue with the PT and OT-and awaiting placement (5) Closed fracture of right proximal humerus: Plan: Status post right reverse total shoulder arthroplasty on 03/05/2023 (6) Recurrent falls: Plan: Multifactorial and mechanical falls (7) TAMIKO (acute kidney injury): Plan: TAMIKO (acute kidney injury): Plan: Cont hemodynamic support and IVF per ICU team. Likely from septic shock Hold home diuretics Avoid nephrotoxins and monitor resolved. 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 WBC on admission at 57 K. Patient presented with septic shock, will hold all chemotherapy medications. Follow-up with oncology as an outpatient upon discharge. No acute issues Remains a smoker (9) Atrial flutter, paroxysmal: Plan: Rate is controlled (10) COPD (chronic obstructive pulmonary disease): Plan: COPD: Chronic, stable. Continue home Anoro Ellipta (11) Postsurgical hypothyroidism: Plan: Continue replacement Plan Acute on chronic anemia: Hemoglobin at baseline around 9. Hb 6.5. Likely blood loss secondary to acute fracture on background of chronic anemia likely 2/2 chemotherapy. s/p 2 PRBC, hemoglobin stable around 9 --Hb 7.0 post op noted 03/06. s/p 1 more unit, f/u HnH stable. HnH in AM Monitor. 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 WBC on admission at 57 K. Patient presented with septic shock, will hold all chemotherapy medications. Follow-up with oncology as an outpatient upon discharge. Current smoker: Long history of smoking, apparently she quit smoking last month, will follow. Protein malnutrition: Nutrition consult Postsurgical hypothyroidism: Continue home levothyroxine COPD: Chronic, stable. Continue home Anoro Ellipta Osteoporosis: Severe and likely cause of fractures in the setting of protein malnutrition chemotherapy. DVT prophylaxis: scds. aspirin. Full code Dispo: SNF, anticipate discharge tomorrow Admission and Anticipated Discharge Date Admission Date: February 27, 2023 Subjective Follow-up for septic shock, UTI, right fracture and femur surgery, etc. Seen resting in bed, comfortable, not in distress Oriented x 2, answers all questions appropriately States she feels okay overall Right shoulder pain improving Able to ambulate to the commode Feels fine overall no other new symptoms Review of Systems Review of Systems: all noted and negative except for above Physical Exam Physical Exam: General- oriented x 3, not in distress, speaks in sentences with no effort or accessory muscle use Eyes- anicteric Neck- no JVD Lungs- clear breath sounds bilaterally, no rales/wheezes Heart- normal rate, regular rhythm; no murmurs Abdomen- normal bowel sounds, nondistended, soft, nontender Extremities- Right arm-sling in place next no pretibial edema, no calf tenderness Neuro- alert, oriented x 3; no gross focal neurologic deficits Skin- warm & dry Results & Data Results & Data Vital Signs (Past 12 Hours) Vital Signs Temp Pulse Pulse Resp BP BP Pulse Ox 03/15/23 11:15 36.5 C 86 18 121/84 97 03/15/23 08:16 36.4 C L 103 H 19 120/63 99 03/15/23 08:00 03/15/23 07:29 94 H 03/15/23 03:41 36.7 C 105 H 20 89/55 L 93 O2 Del Method O2 Flow Rate 03/15/23 11:15 Room Air 03/15/23 08:16 Nasal Cannula 3 03/15/23 08:00 Nasal Cannula 2 03/15/23 07:29 03/15/23 03:41 Nasal Cannula 3 all noted and reviewed including below (5) Closed fracture of right proximal humerus Encounter type: initial encounter Fracture morphology: other fracture Fracture alignment: displaced Qualified Code(s): S42.291A - Other displaced fracture of upper end of right humerus, initial encounter for closed fracture
[2023-03-16] MEDS: ACETAMINOPHEN 500 MG TAB PO SCH ×3 (00:08→15:10)
[2023-03-16] MEDS: CHERRY SYRUP 5 ML UDP PO SCH ×3 (00:09→12:34)
[2023-03-16] MEDS: VANCOMYCIN HCL 125 MG/2.5ML SOLN PO SCH ×3 (00:09→12:35)
[2023-03-16] MEDS: LEVOTHYROXINE SODIUM 100 MCG TABLET PO SCH (05:43)
[2023-03-16] MEDS: ADVANCED PROBIOTIC 1250 MG CAPSULE PO SCH (08:55)
[2023-03-16] MEDS: METOPROLOL SUCC 25MG EXT REL TAB PO SCH (08:55)
[2023-03-16] MEDS: UMECLIDINIUM/VILANTEROL 62.5/25MCG 7 PUFFS/INHALER INH SCH (08:55)
[2023-03-16] MEDS: ASPIRIN/ALUM/MAGNES/CAL CARB 325 MG TAB PO SCH (08:56)
[2023-03-16] MEDS: FUROSEMIDE 20 MG TAB PO SCH (08:56)
[2023-03-16] MEDS: MAGNESIUM OXIDE 400 MG TAB PO SCH (08:56)
[2023-03-16] MEDS: CALCIUM CARBONATE 1250MG TAB PO SCH (08:56)
[2023-03-16] MEDS: PANTOprazole 40 MG TAB PO SCH (08:56)
[2023-03-16] MEDS: POTASSIUM CHLORIDE 10 MEQ TABCR PO SCH (08:56)
[2023-03-16] MEDS: MULTIVITAMIN TAB PO SCH (08:57)
[2023-03-16] MEDS: DICYCLOMINE HCL 10 MG CAP PO SCH ×2 (09:57→15:13)
--- NOTE | 2023-03-16 12:26 | Hospitalist Progress Note ---
Date of Service March 16, 2023 Assessment & Plan (1) Sepsis due to urinary tract infection: Plan: Per Dr. Rodriguez's notes with addendum: Acute metabolic encephalopathy: Shock circulatory: Sepsis due to urinary tract infection: Patient presented with falls at home Was noted to be in shock on presentation, confused, Hb 6.5, right humeral and right trochanteric fractures UA s/o UTI. Urine culture reviewed. MRSA screen negative. Was reported to be unresponsive with glucose of [address] did not show any acute abnormalities or fractures Managed for septic shock due to complicated UTI. Was admitted to ICU initially, was on Levophed, off of Levophed since morning of 03/01. Urine culture reviewed. Blood culture with no growth. 02/28 Zosyn changed to cefepime 03/01. Status post antibiotic course. Patient back to baseline mentation --> delirious post op noted 03/06 --> delirium precaution, melatonin HS --> appears improved but at high risk of recurrence. Avoid benadryl unless absolutely necessary for allergic reaction. She has been feeling much better but remains weak and lethargic Adriana hemodynamically stable and without any acute symptoms Has had physical therapy evaluation and recommended SNF-patient wants to go to [facility] Remains reasonably stable today and is not requiring any more restraint but he still has one-to-one sitter Requiring one-to-one sitter otherwise medically stable Awaiting more physical therapy and placement 03/15 Mental status much better Did not require Zyprexa yesterday Already completed course of antibiotic 03/16 stable answers questions appropriately eager to do more PT/OT Acute confusion with acute metabolic and cephalopathy at presentation Condition was worse last night when she was aggressive and taking out the IV lines She required Ativan and Zyprexa and also restraint for the limbs She was alert awake and oriented during examination but later on it happened again She is back on restraint She will be given Zyprexa ODT for acute symptoms as needed Does not require any more restraint Remains on one-to-one sitter which can be taken of with close observation Leukocytosis White count went up to 21,000 Likely secondary to C. difficile colitis infection Chest x-ray did not show any pneumonia Could be secondary to UTI and will check urine culture again Leukocytosis has been improving Repeat urine culture has been negative White count remains mildly elevated at 12.63 and not any worse 03/16 No overt signs of new infection at this point C. difficile: Patient was having loose stool and tested for C. difficile 03/08, came back positive. P.o. vancomycin started 03/08, monitor frequency/consistency of bowel movement. Maintain contact precaution. Stilly w/ liquidy freq stools; wbc uptrending. If worsening or not improving freq/consistency of stool, consider GI consult. Continues to have ongoing diarrhea Will try Bentyl but no Imodium Diarrhea is improving 03/16 Diarrhea resolved No abdominal pain continue Vancomycin 125mg QID x 5 more days to complete 14 day course (2) Shock circulatory: Plan: As above (3) Acute metabolic encephalopathy: Plan: As above and seems to be resolved following treatment (4) Fracture of greater trochanter of right femur: Plan: Fracture of greater trochanter of right femur: No surgical intervention Fracture, humerus: Secondary to fall at home Severe fracture of the right humerus with intraarticular bone fragments noted on scan. Age-related osteoporosis with current pathological fracture, R humerus and R hip Appreciate Ortho input and recommendation Keep patient NWB RUE. Continue sling in RUE. Status post right reverse TSA 03/05/2023. Pain control, bowel regimen as appropriate. WBAT for RLE per ortho. Will have f/u with Ortho ortho 2 weeks post op. Continue with the PT and OT-and awaiting placement (5) Closed fracture of right proximal humerus: Plan: Status post right reverse total shoulder arthroplasty on 03/05/2023 (6) Recurrent falls: Plan: Multifactorial and mechanical falls (7) TAMIKO (acute kidney injury): Plan: TAMIKO (acute kidney injury): Plan: Cont hemodynamic support and IVF per ICU team. Likely from septic shock Held home diuretics Avoid nephrotoxins and monitor resolved. Creatinine remains at normal range -- resume usual Lasix 20mg po BID if BP remains stable, no diarrhea (8) Small cell lung cancer in adult: Plan: Small cell lung cancer in adult -on carboplatin and etoposide with last treatment just a few days ago [employer]. Also on pegfilgrastim. WBC on admission at 57 K. Patient presented with septic shock, will hold all chemotherapy medications. Follow-up with oncology as an outpatient upon discharge. No acute issues Remains a smoker (9) Atrial flutter, paroxysmal: Plan: Rate is controlled (10) COPD (chronic obstructive pulmonary disease): Plan: COPD: Chronic, stable. Continue home Anoro Ellipta (11) Postsurgical hypothyroidism: Plan: Continue replacement Plan Acute on chronic anemia: Hemoglobin at baseline around 9. Hb 6.5. Likely blood loss secondary to acute fracture on background of chronic anemia likely 2/2 chemotherapy. s/p 2 PRBC, hemoglobin stable around 9 --Hb 7.0 post op noted 03/06. s/p 1 more unit, f/u HnH stable. Monitor. Transfuse PRN to keep Hb >7 -- Hg remains stable at 8.0 Other chronic medical conditions: Small cell lung cancer in adult -on carboplatin and etoposide with last treatment just a few days ago [employer]. Also on pegfilgrastim. WBC on admission at 57 K. Patient presented with septic shock, will hold all chemotherapy medications. Follow-up with oncology as an outpatient upon discharge. Current smoker: Long history of smoking, apparently she quit smoking last month, will follow. Protein malnutrition: Nutrition consult Postsurgical hypothyroidism: Continue home levothyroxine COPD: Chronic, stable. Continue home Anoro Ellipta Osteoporosis: Severe and likely cause of fractures in the setting of protein malnutrition chemotherapy. DVT prophylaxis: scds. aspirin. Full code Dispo: SNF ff up with Ortho Dr. Ernesto Scott in 2 weeks Admission and Anticipated Discharge Date Admission Date: February 27, 2023 Subjective ff up for UTI, C diff, etc seen resting in bed, comfortable talking on the phone, asked permission from patient if I can talk to her, she said yes states she feels fine overall no abdominal pain no diarrhea today no chest pain, dyspnea, palpitations, dizziness denies shoulder, LE pain no other symptoms Review of Systems Review of Systems: all noted and negative except for above Physical Exam Physical Exam: General- oriented x 3, not in distress, speaks in sentences with no effort or accessory muscle use Eyes- anicteric Neck- no JVD Lungs- clear breath sounds bilaterally, no rales/wheezes Heart- normal rate, regular rhythm; no murmurs Abdomen- normal bowel sounds, nondistended, soft, nontender Extremities- no pretibial edema, no calf tenderness R arm: sling in place Neuro- alert, oriented x 3; no gross focal neurologic deficits Skin- warm & dry Results & Data Results & Data Vital Signs (Past 12 Hours) Vital Signs Temp Pulse Pulse Resp BP Pulse Ox O2 Del Method 03/16/23 11:27 36.4 C L 64 16 100/63 95 Room Air 03/16/23 09:00 75 03/16/23 07:10 36.4 C L 63 16 116/72 96 Room Air 03/16/23 03:56 36.4 C L 89 16 97/58 L 94 Room Air all noted and reviewed including below (5) Closed fracture of right proximal humerus Encounter type: initial encounter Fracture morphology: other fracture Fracture alignment: displaced Qualified Code(s): S42.291A - Other displaced fracture of upper end of right humerus, initial encounter for closed fracture
--- NOTE | 2023-03-16 12:50 | Discharge Summary ---
Discharge Summary Date of Service March 16, 2023 Notes For Next Care Provider Patient has active lung cancer, will order Lovenox subcutaneous for DVT prophylaxis instead of aspirin Medication Changes From Visit please see assessment and plan below. Admission HPI Per Admitting Provider The patient is a frail 73 year old female with multiple admissions in recent months for ongoing weight loss and falls at home, ultimately found to have 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 She was started on systemic chemotherapy with carboplatin and etoposide and per the records, it appears her last chemotherapy was around. She received pegfilgrastim with her cycles, also. She is a COPD patient with a long history of smoking. She has known osteoporosis and was already considered high risk for fracture. Per previous records, she had a left hip nondisplaced intertrochanteric femur fracture following a fall. S/P left hip short cephalomedullary nailing for nondisplaced intertrochanteric femur fracture by Dr. Ernesto Scott on 10/27/2022 at [facility]. She has a h/o cdiff gene positive with stool PCR repeatedly finding norovirus. She was seen by ID who felt this was not an active infection at that time. She was seen by [facility] in early Feb and was noted to be ambulating with a walker and had notably come to the clinic by herself that day. She has a at home, but no other support outside of this. She arrives today in critical condition confused with hypoglycemia in the field, hypothermia, a severely broken right shoulder and right femur after successive falls at home. Per ER physician, EMS found her unresponsive in the field with a glucose in the 30s. She was also seen by EMS yesterday but had refused transport at that time. Spouse is not available to assist with history at this time. Although improved after dextrose administration, the patient herself is confused and cannot give a history. She repeatedly states she needs to use the bathroom even though she has a hawthorne in place and she cannot get up because of a severely fractured right shoulder and fractured right hip. She is not understanding what has happened to her and also denies any pain. I did try contacting her spouse at home but was unable to connect with him. She has a Hb 6.5 and is in shock requiring pressor support with norepinephrine after adequate IVF resuscitation in the ER. She has acute renal failure, with a possible UTI and/or a pneumonia. She was started on broad spectrum antibiotics and transferred to ICU. Dr Canas on air director for orthopedics recommended a sling and swath to immobilize her shoulder which was performed in the ER. He also recommended that we consult Dr. Scott, her previous surgeon, and consider CT scan of her shoulder with 3D reconstruction as he worked on her previously and also performs shoulder arthroplasty, which Dr. Canas doesn't do. Admission Exam Per Admitting Provider CONSTITUTIONAL: cachectic appearing, vitals as above, generally ill appearing with dry oral mucous membranes and confusion. EYES: PERRL, normal conjunctivae, no scleral icterus, ENT: external ear and nose normal NECK: trachea midline RESPIRATORY: clear to auscultation bilaterally, no crackles, rales or wheezes, normal respiratory effort CARDIOVASCULAR: regular rate and rhythm, S1 and 2 heard without murmurs, gallops or rubs, no JVD, no peripheral edema CHEST: inspection of chest revealed an erythematous, swollen right shoulder. GASTROINTESTINAL: soft, nontender, ND, no guarding MUSCULOSKELETAL: cannot move right arm with severely broken right shoulder, cannot move right leg wtih R femur fracture, otherwise she is generally weak, head is normocephalic and atraumatic, SKIN: warm and dry NEUROLOGIC: No facial palsy, no dysarthria. CN 2-12 grossly intact, normal cognition, normal speech, no tremor PSYCHIATRIC: alert cooperative but disoriented to date and time. Knew she was in the hospital but didn't know why or why she was on chemotherapy., Unable to given historical details. Principal Dx & Hospital Course #1 = Principal Diagnosis (1) Sepsis due to urinary tract infection: Per Dr. Rodriguez's notes with addendum: Acute metabolic encephalopathy: Shock circulatory: Sepsis due to urinary tract infection: Patient presented with falls at home Was noted to be in shock on presentation, confused, Hb 6.5, right humeral and right trochanteric fractures UA s/o UTI. Urine culture reviewed. MRSA screen negative. Was reported to be unresponsive with glucose of [address] did not show any acute abnormalities or fractures Managed for septic shock due to complicated UTI. Was admitted to ICU initially, was on Levophed, weaned off of Levophed. Urine culture reviewed. Blood culture with no growth. 02/28 Zosyn changed to cefepime 03/01. Status post antibiotic course. Patient back to baseline mentation --> delirious post op noted 03/06 --> delirium precaution, melatonin HS --> appears improved but at high risk of recurrence. Avoid benadryl unless absolutely necessary for allergic reaction. She has been feeling much malina Has had physical therapy evaluation and recommended SNF-patient wants to go to [facility] 03/16 Mental status much better Did not require Zyprexa x 2 days Already completed course of antibiotic stable answers questions appropriately eager to do more PT/OT C. difficile: Patient was having loose stool and tested for C. difficile 03/08, came back positive. P.o. vancomycin started 03/08 Diarrhea is improving 03/16 Diarrhea resolved No abdominal pain continue Vancomycin 125mg QID x 5 more days to complete 14 day course (2) Shock circulatory: As above (3) Acute metabolic encephalopathy: As above and seems to be resolved following treatment (4) Fracture of greater trochanter of right femur: Fracture of greater trochanter of right femur: No surgical intervention Fracture, humerus: Secondary to fall at home Severe fracture of the right humerus with intraarticular bone fragments noted on scan. Age-related osteoporosis with current pathological fracture, R humerus and R hip Appreciate Ortho input and recommendation Keep patient NWB RUE. Continue sling in RUE. Status post right reverse TSA 03/05/2023. Pain control, bowel regimen as appropriate. WBAT for RLE per ortho. Will have f/u with Ortho ortho 2 weeks post op. Continue with the PT and OT-and awaiting placement (5) Closed fracture of right proximal humerus: Status post right reverse total shoulder arthroplasty on 03/05/2023 (6) Recurrent falls: Multifactorial and mechanical falls (7) TAMIKO (acute kidney injury): TAMIKO (acute kidney injury): Plan: Cont hemodynamic support and IVF per ICU team. Likely from septic shock Held home diuretics Avoid nephrotoxins and monitor resolved. 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 WBC on admission at 57 K. Patient presented with septic shock, will hold all chemotherapy medications. Follow-up with oncology as an outpatient upon discharge. No acute issues Remains a smoker (9) Atrial flutter, paroxysmal: Rate is controlled (10) COPD (chronic obstructive pulmonary disease): COPD: Chronic, stable. Continue home Anoro Ellipta (11) Postsurgical hypothyroidism: Continue replacement Plan Acute on chronic anemia: Hemoglobin at baseline around 9. Hb 6.5. Likely blood loss secondary to acute fracture on background of chronic anemia likely 2/2 chemotherapy. s/p 2 PRBC, hemoglobin stable around 9 --Hb 7.0 post op noted 03/06. s/p 1 more unit, f/u HnH stable. Monitor. 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 WBC on admission at 57 K. Patient presented with septic shock, will hold all chemotherapy medications. Follow-up with oncology as an outpatient upon discharge. Current smoker: Long history of smoking, apparently she quit smoking last month, will follow. Protein malnutrition: Nutrition consult Postsurgical hypothyroidism: Continue home levothyroxine COPD: Chronic, stable. Continue home Anoro Ellipta Osteoporosis: Severe and likely cause of fractures in the setting of protein malnutrition chemotherapy. DVT prophylaxis: scds. aspirin. Full code Dispo: SNF ff up with Ortho Dr. Ernesto Scott in 2 weeks Discharge Exam General- oriented x 3, not in distress, speaks in sentences with no effort or accessory muscle use Eyes- anicteric Neck- no JVD Lungs- clear breath sounds bilaterally, no rales/wheezes Heart- normal rate, regular rhythm; no murmurs Abdomen- normal bowel sounds, nondistended, soft, nontender Extremities- no pretibial edema, no calf tenderness R arm: sling in place Neuro- alert, oriented x 3; no gross focal neurologic deficits Skin- warm & dry Updated Medication List Medication Instructions Recorded Confirmed Type metoprolol succinate 25 mg 12.5 mg (1/2 x 25 mg) PO DAILY #15 08/22/22 02/27/23 Rx tablet,extended release 24 hr tabs oxybutynin chloride 5 mg 5 mg PO QAM 09/25/22 02/27/23 History tablet,extended release 24 hr levothyroxine 100 mcg tablet 100 mcg PO DAILY #30 tabs 10/20/22 02/27/23 Rx (Synthroid) potassium chloride 10 mEq 10 meq PO DAILY #30 caps 11/02/22 02/27/23 Rx capsule,extended release umeclidinium 62.5 mcg-vilanterol 1 ea inhalation DAILY #60 ea 11/02/22 02/27/23 Rx 25 mcg/actuation powdr for inhalation (Anoro Ellipta) furosemide 20 mg tablet 20 mg PO BID 02/27/23 02/27/23 History L.acidop,casei,lactis,rham-B.lact,mariama 2 cap PO DAILY 30 days #60 caps 03/16/23 Rx 625 mg (10 billion cell) capsule (Advanced Probiotic) acetaminophen 500 mg tablet 1,000 mg (2 x 500 mg) PO Q8 PRN 03/16/23 Rx (Tylenol Extra Strength) pain 7 days #20 tabs aspirin,buffered (calcium 1 tab PO DAILY 14 days #14 tabs 03/16/23 Rx carbonate-magnesium) 325 mg tablet (Tri-Buffered Aspirin) calcium carbonate 500 mg-vitamin 2.5 tab PO DAILY 14 days #35 tabs 03/16/23 Rx D3 15 mcg (600 unit) tablet (Os-Edin 500 + D3) dicyclomine 10 mg capsule 10 mg PO TID PRN Abdominal Pain 7 03/16/23 Rx days #15 caps magnesium oxide 400 mg (241.3 mg 400 mg PO BID 14 days #28 tabs 03/16/23 Rx magnesium) tablet pantoprazole 40 mg tablet,delayed 40 mg PO DAILY 30 days #30 tabs 03/16/23 Rx release vancomycin 125 mg capsule 125 mg PO QID 5 days #20 caps 03/16/23 Rx Hospital Stay Data Consultations 02/27/23 16:07 ED Decision to Admit Stat 02/27/23 16:34 Consult Orthopedic Surgery Routine 02/27/23 19:02 Consult Vaccine Manager Routine 02/28/23 09:35 Consult Palliative Care Routine Procedures Performed Operation Date: 03/05/23 07:30 Actual Procedures p Right Reverse Total Shoulder Arthroplasty(Right) - Ernesto Scott M.D. Diagnostic Imagining Performed Laboratory Results WBC 11.19 K/ul (4.8-10.8) H 03/15/23 06:00 RBC 2.31 M/uL (4.20-5.40) L 03/15/23 06:00 Hgb 7.9 g/dl (12.0-16.0) L 03/15/23 07: POC Hgb 6.1 g/dl (12.0-16.0) L* 02/27/23 13:55 Hct 25.4 % (37.0-47.0) L 03/15/23 07: POC Hct 18 % (37-47) L* 02/27/23 13:55 MCV 92.2 fL (80.0-100.0) 03/15/23 06:00 MCH 29.9 pg (25.0-34.0) 03/15/23 06:00 MCHC 32.4 g/dL (32.0-36.0) 03/15/23 06:00 RDW Std Deviation 51.7 fL (36.4-46.3) H 03/15/23 06:00 RDW Coeff of Minal 17.0 % (11.5-14.5) H 03/15/23 06:00 Plt Count 171 K/uL (130-400) 03/15/23 06:00 MPV 9.5 fL (9.4-12.4) 03/15/23 06:00 Immature Gran % (Auto) 4.3 % 03/15/23 06:00 Neut % (Auto) 85.5 % 03/15/23 06:00 Lymph % (Auto) 6.3 % 03/15/23 06:00 Bay % (Auto) 3.6 % 03/15/23 06:00 Eos % (Auto) 0.1 % 03/15/23 06:00 Baso % (Auto) 0.2 % 03/15/23 06:00 Neut # (Auto) 9.58 K/uL (1.40-6.50) H 03/15/23 06:00 Lymph # (Auto) 0.70 K/uL (1.20-3.40) L 03/15/23 06:00 Bay # (Auto) 0.40 K/uL (0.11-0.59) 03/15/23 06:00 Eos # (Auto) 0.01 K/uL (0.00-0.50) 03/15/23 06:00 Baso # (Auto) 0.02 K/uL (0.00-0.20) 03/15/23 06:00 Immature Gran # (Auto) 0.48 K/uL (0.01-0.20) H 03/15/23 06:00 Absolute Nucleated RBC 0.02 K/uL (0.00-0.12) 03/13/23 06:24 Nucleated RBC % (auto) 0.2 % 03/13/23 06:24 Neutrophils % (Manual) 97 % 02/28/23 08:29 Lymphocytes % (Manual) 3 % 02/28/23 08:29 Monocytes % (Manual) 1 % 02/27/23 13:48 Neutrophils # (Manual) 25.26 K/uL (1.40-6.50) H 02/28/23 08:29 Total Absolute Neuts 25.26 K/uL (1.4-6.5) H 02/28/23 08:29 Lymphocytes # (Manual) 0.78 K/uL (1.2-3.4) L 02/28/23 08:29 Total Abs Lymphocytes 0.78 K/uL (1.2-3.4) L 02/28/23 08:29 Monocytes # (Manual) 0.57 K/uL (0.11-0.59) 02/27/23 13:48 Toxic Granulation 1+ 03/15/23 06:00 Dohle Bodies 2+ 03/06/23 07:43 Polychromasia 1+ 03/15/23 06:00 Basophilic Stippling 1+ 02/27/23 13:48 Echinocytes 2+ 03/12/23 08:08 POC Sodium 137 mmol/L (135-144) 02/27/23 13:55 Sodium 138 mmol/L (136-145) 03/15/23 06:00 POC Potassium 3.7 mmol/L (3.3-5.0) 02/27/23 13:55 Potassium 3.4 mmol/L (3.5-5.1) L 03/15/23 06:00 POC Chloride 106 mmol/L (101-112) 02/27/23 13:55 Chloride 102 mmol/L (98-107) 03/15/23 06:00 Carbon Dioxide 31 mmol/L (21-32) 03/15/23 06:00 POC Total CO2 16 mmol/L (24-31) L 02/27/23 13:55 Anion Gap 5 (3-11) 03/15/23 06:00 POC Anion Gap 20.0 mmol/L (16-25) 02/27/23 13:55 POC BUN 77 mg/dl (7-18) H 02/27/23 13:55 BUN 16 mg/dl (6-23) 03/15/23 06:00 Creatinine 0.53 mg/dl (0.6-1.2) L 03/15/23 06:00 POC Creatinine 1.5 mg/dl (0.6-1.3) H 02/27/23 13:55 Est Cr Clr Drug Dosing 71.3 ml/min 03/15/23 06:00 Est GFR ( Amer) 109.2 ml/min 03/15/23 06:00 Est GFR (Non-Af Amer) 94.2 ml/min 03/15/23 06:00 BUN/Creatinine Ratio 30.2 (10-20) H 03/15/23 06:00 Glucose 68 mg/dl (70-99(Fasting)) L 03/15/23 06:00 POC Glucose 86 mg/dl (70-99) 03/03/23 10:59 POC Glucose (other) 218 mg/dl (70-99) H 02/27/23 13:55 Osmolality 320 mOsm/kg (280-300) H 02/27/23 14:56 Lactate 1.4 mmol/L (0.4-2.0) 02/27/23 14:51 Calcium 6.7 mg/dl (8.6-10.3) L 03/15/23 06:00 POC Ioniz Calcium Loki 0.95 mmol/l (1.12-1.32) L 02/27/23 13:55 Phosphorus 3.0 mg/dl (2.5-4.9) 03/15/23 06:00 Magnesium 1.6 mg/dl (1.7-2.4) L 03/15/23 06:00 Total Bilirubin 1.1 mg/dl (0.2-1.0) H D 03/02/23 06:20 Direct Bilirubin 0.2 mg/dl (0-0.2) 02/27/23 14:56 AST 24 U/L (13-39) 03/02/23 06:20 ALT 24 U/L (7-52) 03/02/23 06:20 Alkaline Phosphatase 133 U/L (34-104) H 03/02/23 06:20 Total Creatine Kinase 512 U/L (26-192) H 02/28/23 08:29 Total Protein 4.9 gm/dl (6.0-8.3) L 03/02/23 06:20 Albumin 2.7 gm/dl (3.4-5.0) L 03/02/23 06:20 Globulin 2.2 gm/dl (2.5-4.0) L 03/02/23 06:20 Albumin/Globulin Ratio 1.2 (0.9-2) 03/02/23 06:20 Procalcitonin 0.41 ng/ml (0-0.5) 03/10/23 08:46 TSH 17.524 uIu/ml (0.300-4.500) H 03/14/23 06:24 Free T4 0.82 ng/dl (0.61-1.60) 03/14/23 06:24 Random Cortisol 34.93 mcg/dl 02/27/23 14:56 Urine Color Yellow 02/27/23 Unknown Urine Appearance Turbid (Clear) A 02/27/23 Unknown Urine pH 5.0 (4.5-7.5) 02/27/23 Unknown Ur Specific [place] 1.033 (1.000-1.030) H 02/27/23 Unknown Urine Protein Trace (Negative) H 02/27/23 Unknown Urine Glucose (UA) Negative (Negative) 02/27/23 Unknown Urine Ketones Negative (Negative) 02/27/23 Unknown Urine Blood 2+ (Negative) H 02/27/23 Unknown Urine Nitrite Positive (Negative) A 02/27/23 Unknown Urine Bilirubin Negative (Negative) 02/27/23 Unknown Urine Urobilinogen Negative (Negative) 02/27/23 Unknown Ur Leukocyte Esterase 3+ (Negative) H 02/27/23 Unknown Urine WBC (Auto) >30 /hpf (0-5) H 02/27/23 Unknown Urine RBC (Auto) 0-4 /hpf (0-4) 02/27/23 Unknown U Hyaline Cast (Auto) 1-5 /lpf (0-5) 02/27/23 Unknown U Epithel Cells (Auto) 20-30 /lpf (0-5) H 02/27/23 Unknown Urine Bacteria (Auto) 2+ (Negative) H 02/27/23 Unknown Urine Osmolality 443 mOsm/kg (500-800) L 02/27/23 Unknown Ur Random Creatinine 31.7 mg/dl 02/27/23 Unknown Ur Random Sodium 67 mmol/L 02/27/23 Unknown Ur Random Sodium Cancelled 02/27/23 Unknown Ur Random Potassium 29.7 mmol/L 02/27/23 Unknown Ur Random Potassium Cancelled 02/27/23 Unknown Ur Random Chloride 50 mmol/L 02/27/23 Unknown Ur Random Chloride Cancelled 02/27/23 Unknown Ur Random Uric Acid 16 mg/dL 02/27/23 Unknown Nasal Screen MRSA (PCR) Negative (Negative) 02/27/23 Unknown Stl C. diff Tox B Gene Positive Cdiff Gene (Neg) H 03/08/23 Unknown Stl C.difficile Tox A&B Positive Cdiff Toxin (Negative) A* 03/08/23 Unknown Salicylates < 3.0 mg/dl (3.0-30) L 02/27/23 14:56 Urine Opiates Screen Neg (Neg) 02/27/23 Unknown Ur Methadone, Qual Neg (Neg) 02/27/23 Unknown Acetaminophen < 3 ug/ml (10-30) L 02/27/23 14:56 Urine Barbiturates Neg (Neg) 02/27/23 Unknown Ur Phencyclidine (PCP) Neg (Neg) 02/27/23 Unknown U Amphetamin/Meth Scrn Neg (Neg) 02/27/23 Unknown MDMA (Ecstasy) Screen Neg (Neg) 02/27/23 Unknown U Benzodiazepines Scrn Neg (Neg) 02/27/23 Unknown Ur Cocaine Metabolite Neg (Neg) 02/27/23 Unknown U Marijuana (THC) Screen Neg (Neg) 02/27/23 Unknown Ethyl Alcohol mg/dL < 10.0 mg/dl (<10.0) 02/27/23 17:47 Blood Type A Positive 03/06/23 13:19 Blood Type Recheck A Positive 02/27/23 18:08 Antibody Screen POSITIVE A 03/06/23 13:19 Antibody Identification Anti-M 03/06/23 13:19 Antibody ID Comment 03/06/23 13:19 Crossmatch See Detail 03/06/23 13:19 Impressions Elbow X-Ray 02/27/23 13:07 XR elbow RT 2V CLINICAL HISTORY: BRUISING TECHNIQUE: 2 views of the right elbow were obtained. Comparison: None available at the time of this dictation. FINDINGS: There is no evidence of an acute fracture. Joint spaces are well-preserved. The alignment is anatomic. There is no prominence of the anterior or posterior fat pads to suggest an effusion. No soft tissue abnormality is seen. IMPRESSION: No evidence of acute fracture or dislocation. ACT 112: Negative or not required by law. Electronically signed by: Trent Woodruff M.D. 02/27/2023 1:42 PM Pelvis X-Ray 02/27/23 13:10 XR pelvis 1-2V routine CLINICAL HISTORY: pain TECHNIQUE: A single frontal view of the pelvis was obtained. Comparison: Comparison is made to left hip radiograph 10/27/2022 FINDINGS: Left femoral maximus is seen. Degenerative changes are seen in the hip joints and lumbar spine. No soft tissue abnormality is seen. IMPRESSION: Degenerative changes without evidence of acute abnormality. ACT 112: Negative or not required by law. Electronically signed by: Trent Woodruff M.D. 02/27/2023 1:[address] 02/27/23 13:19 CT OF THE CERVICAL SPINE WITHOUT CONTRAST CLINICAL HISTORY: Fall.. COMPARISON STUDY: MRI of the cervical spine August 17, 2022. TECHNIQUE: Helical axial images of the cervical spine were obtained without IV contrast. Sagittal and coronal reconstructions were viewed. Automated exposure control was utilized for the study. A dose lowering technique was utilized adhering to the principles of ALARA. FINDINGS: Alignment of the cervical spine is anatomic. Vertebral body heights are maintained. No acute cervical spine fracture or subluxation is present. There is no prevertebral edema. Facet joints are intact. There is moderate multilevel facet arthrosis, disc space narrowing and osteophytosis within the cervical spine. Slight anterolisthesis of C4 on C5 and slight retrolisthesis of C5 on C6 is unchanged. Small left mastoid effusion is unchanged since MRI of October 30, 2022. IMPRESSION: No acute cervical spine fracture or subluxation. ACT 112: Negative or not required by law. Electronically signed by: Lev Li M.D. 02/27/2023 2:[address] 02/27/23 13:19 CT OF THE HEAD WITHOUT CONTRAST CLINICAL HISTORY: Fall. Altered mental status. COMPARISON STUDY: Head CT October 12, 2022. MRI of the brain October 30, 2022. TECHNIQUE: Helical axial images of the head were obtained without IV contrast. Automated exposure control was utilized for the study. A dose lowering technique was utilized adhering to the principles of ALARA. FINDINGS: No acute intracranial hemorrhage, midline shift or mass effect is present. The ventricular system is unremarkable. The basal cisterns are patent. No extra-axial collections are present. There are no findings to suggest acute dural sinus thrombosis or acute territorial infarct. There is no calvarial fracture. Small left mastoid effusion is unchanged. IMPRESSION: 1. No acute intracranial findings. 2. No calvarial fracture. ACT 112: Negative or not required by law. Electronically signed by: Lev Li M.D. 02/27/2023 2:34 PM Abdomen/Pelvis CT 02/27/23 13:31 CT OF THE ABDOMEN AND PELVIS WITH CONTRAST CLINICAL HISTORY: Trauma. Sepsis. COMPARISON STUDY: CT of the abdomen and pelvis October 12, 2022. TECHNIQUE: Following IV administration of 88 mL of Optiray, axial images of the abdomen and pelvis were obtained from the lung bases to the proximal femurs. Images were reviewed in the axial, sagittal, and coronal planes. IV contrast was administered without complication. Automated exposure control was utilized for the study. A dose lowering technique was utilized adhering to the principles of ALARA. FINDINGS: Note that the chest CT will be reported separately. No pneumatosis, free air or portal venous gas is present. There is no evidence for traumatic injury to the liver, spleen, adrenal glands, kidneys or pancreas. There is no biliary or pancreatic ductal dilatation. Mild right hydronephrosis has significantly improved when compared to CT of October 12, 2022. There is urothelial thickening of the right collecting system. There are no ureteral calculi. 3 mm left renal calculus is present. There is no left hydronephrosis. There is no evidence for a bowel obstruction. Colonic diverticulosis is present without evidence for acute diverticulitis. There is no free fluid. There is no lymphadenopathy within the abdomen or pelvis. A moderate amount of stool within the rectum is present. No acute lumbar spine fracture. Internal fixation of the proximal left femur is noted. There is an acute to subacute moderately displaced comminuted fracture of the greater trochanter of the right femur. Fracture likely involves approximately 50% of the cross-sectional area of the femur. No extension to the lesser trochanter is noted by CT. IMPRESSION: 1. Acute to subacute comminuted, displaced fracture of the greater trochanter of the right femur. Fracture involves approximately 50% cross-sectional area of the femur. Findings may reflect intertrochanteric extension of the fracture although no definite extension to the lesser trochanter by CT. Orthopedic consultation is recommended. 2. No evidence for traumatic injury to the solid abdominal viscera. 3. No bowel obstruction. No bowel wall thickening. Moderate amount of stool within the rectum. Colonic diverticulosis. No evidence for acute diverticulitis. 4. Mild right hydronephrosis, significantly decreased compared to prior CT. Urothelial thickening which could be correlated with analysis. ACT 112: Negative or not required by law. Electronically signed by: Lev Li M.D. 02/27/2023 3:[address] 02/27/23 13:31 CT OF THE CHEST WITH IV CONTRAST CLINICAL HISTORY: Trauma. Pneumonia. Cancer history. COMPARISON STUDY: Chest CT October 29, 2022.. TECHNIQUE: Following IV administration of 88 mL of Optiray, helical axial images of the chest were obtained. Sagittal and coronal reconstructions were viewed as well as maximal intensity projections on an independent 3-D workstation. Automated exposure control was utilized for the study. A dose lowering technique was utilized adhering to the principles of ALARA. CT DOSE: 1652.05 mGy.cm FINDINGS: There is no evidence for traumatic injury to the thoracic aorta. There is no pericardial effusion. Size of the heart is at the upper limits of normal. No pulmonary emboli are identified. Thoracic lymphadenopathy on CT of October 29, 2022 has resolved. No new sites of lymphadenopathy are present. No pneumothorax or pleural effusion is present. No pulmonary contusion is identified. Mild left lower lobe airspace opacity is present. Airspace opacities shown on prior CT have markedly improved. Several occluded left lower lobe segmental bronchi are present. No acute rib or thoracic spine fracture is noted. There is a acute markedly displaced comminuted right humeral head and neck fracture. Glenohumeral alignment is intact. However, the remaining portion of the shaft of the right humerus is significantly displaced anteriorly. Numerous adjacent bone fragments are present. Small to moderate associated hemorrhage is present. Hyperdense foci favor bone fragments, several of which are intra- articular. No definite active extravasation. Abdomen and pelvis CT will be reported separately. IMPRESSION: 1. Acute significantly comminuted and displaced right humeral head and neck fracture. Glenohumeral alignment intact. However, the humeral shaft is significantly displaced anteriorly. Numerous bone fragments, several of which are intra-articular. Small to moderate adjacent hemorrhage. No definite active extravasation. 2. No additional acute traumatic findings within the chest. 3. Resolution of thoracic lymphadenopathy since CT of October 29, 2022 consistent with a treatment response. 4. Mild left lower lobe airspace opacity with a few excluded segmental bronchi. The findings favor a mild infectious process or aspiration pneumonitis. ACT 112: Negative or not required by law. Electronically signed by: Lev Li M.D. 02/27/2023 2:[address] 03/01/23 18:51 Exam(s): CT RIGHT SHOULDER Without Contrast EXAM: CT Right Upper Extremity Without Intravenous Contrast, Shoulder CLINICAL HISTORY: Reason for exam: Right proximal humerus fracture. TECHNIQUE: Axial computed tomography images of the right shoulder without intravenous contrast. CTDI is 21.38 mGy and DLP is 303.67 mGy-cm. Automated exposure control was utilized for the study. A dose lowering technique was utilized adhering to the principles of ALARA. COMPARISON: No relevant prior studies available. FINDINGS: There is a significantly comminuted and displaced fracture of the proximal humerus involving the surgical neck and tuberosities. The humeral shaft fragment is proximally migrated and anteriorly displaced, perched anterior to the humeral head fragment. The humeral head fragment remains in articulation with the glenoid. Multiple fracture fragments are scattered within and adjacent to the joint space. There is a glenohumeral joint hemarthrosis along with significant surrounding soft tissue swelling. IMPRESSION: Significantly comminuted and displaced fracture of the proximal humerus involving the surgical neck and tuberosities. Humeral shaft fragment is proximally migrated and displaced anterior to the humeral head fragment. Humeral head fragment remains in articulation with the glenoid. Comminution of the tuberosity fragments is noted. There is a large hemarthrosis and marked surrounding soft tissue swelling. Electronically signed by: Dimitry Sandoval M.D. 03/01/23 21:32 PM Shoulder X-Ray 03/05/23 11:27 RIGHT SHOULDER 2 VIEWS CLINICAL HISTORY: Postoperative examination. FINDINGS: 2 portable views of the right shoulder are compared to study dated 02/27/2023. The skeletal structures are osteopenic. A right shoulder arthroplasty is in near anatomic alignment. No acute fracture is seen. The acromioclavicular joint is maintained. Subcutaneous gas and soft tissue swelling overlying the right shoulder are expected postsurgical changes. The imaged right lung parenchyma appears clear. Surgical clips are seen in the lower neck. IMPRESSION: Expected postsurgical findings status post right shoulder arthroplasty. No acute fracture is seen. Electronically signed by: Valentin Willard M.D. 03/05/2023 12:11 PM Chest X-Ray 03/12/23 07:45 XR chest 1V portable HISTORY: Cough. r/o pneumonia COMPARISON: Chest CT 02/27/2023. FINDINGS: No pneumothorax. There is a right shoulder prosthesis. No acute fractures identified. The right lung is clear. The heart is normal in size. No evidence for pulmonary edema. Small left retrocardiac density has slightly progressed. IMPRESSION: 1. There is a small left retrocardiac density which has progressed. This may represent atelectasis or a developing pneumonia. 2. Interval placement of a right shoulder prosthesis. ACT 112: Negative or not required by law. Electronically signed by: Morris Lal M.D. 03/12/2023 9:01 AM Pending Results Patient Have Any Pending Studies at Discharge: No Discharge Instructions Given to Patient (Per Discharging Provider) Resume usual Lasix if blood pressure remains stable, and diarrhea further results. Repeat basic metabolic profile, Ca, Mg in 3-5 days, then monitor regularly. Please refer to accompanying hospital discharge summary for further details. Total Time Total Time Spent Total Time Spent (In Minutes): >30 minutes
== END 2023-03-16 16:35 | DRG 853 ==
LOC: ED 12:43 → 2E 16:42 → SUATTDRO 16:42 → 2E 18:43 → 1E 02-28 19:00 → 2E 03-01 18:57

== ENCOUNTER 2023-03-20 11:59 | Inpatient (IN) ==
[~2023-03-20 11:59] MED LIST: ETOMIDATE 2 MG/ML 20 ML VIAL IV ONE; fentaNYL citrate PF 100 MCG/2 ML VIAL IV ONE
--- NOTE | 2023-03-20 12:29 | Emergency Department Note ---
Impression & Plan Hypovolemic shock, Hypothermia, Fracture of greater trochanter of right femur, COPD (chronic obstructive pulmonary disease), Acute metabolic encephalopathy ED Provider Note NAME: KARISSA KATZ AGE: 73 SEX: F : 1950 ARRIVES VIA: Ambulance INFORMANT: Patient, ED PROVIDER(S): Justice Wiley MD CHIEF COMPLAINT: Confusion MEDICAL DECISION MAKING: Patient presents in significant distress associated bradycardia and hypothermia. Difficulty with obtaining IV access. Empiric antibiotics IV fluids and additional blood work was ordered. Given difficulty with IV access patient did have a central line that was placed as the patient reportedly was still full code based on her last palliative care consultation and I did attempt to contact the prior but there was no answer. Patient's initial blood work with a white count of 7 hemoglobin of 8. The patient's platelet count is unremarkable. Bear hugger and IV fluid warmer were ordered. The patient was ordered 30 cc/kg bolus as well as antibiotics after discussion with ED pharmacy. The patient's TSH is elevated but free T4 is normal. Troponin not elevated. Initial lactate not elevated. I did speak with the on-call performance improvement director Dr. Barksdale who did come and evaluate the patient. Patient did have [facility] imaging performed given the bruising noted as well as the patient's confusion. CT head is negative. Patient's other imaging studies do show acute right-sided femur fracture. Patient is COVID-positive. The patient was ordered dexamethasone. Patient still suffered from hypotension and bradycardia during her stay and the patient was ordered several doses of atropine and eventually was placed on Levophed. Please refer to the performance improvement director as well as the hospitalist notes for additional care. Patient was admitted to the ICU. Critical Care: I have personally spent 125 minutes of critical care time in direct management of this patient. This includes bedside care, interpretation of diagnostic studies, and testing, discussion with consultants, patient, and family members, and other require inpatient management activities. This 125 minutes is in excess of all separately billable procedures. Procedures: Femoral Central Venous Catheter performed by Dr. Wiley Indication: Hypotension, lack of IV access Catheter Type: 3 lm 7 Frisian Location: Left groin Verbal consent was obtained after the risks and benefits were explained, including but not limited to intra-abdominal injury, vessel injury, bleeding, scarring, infection, pain, and bone/joint/nerve damage. At this time, the risks of the procedure are less than the risks of NOT performing the procedure. A time out was taken and the correct patient and site identified. The patient was placed in the supine position and the skin was prepped in the standard fashion with chlorhexidine and full sterile drapes applied. The proper landmarks were identified with ultrasound, anesthetized with 1% lidocaine without epinephrine, and the needle was inserted through the skin in the standard fashion. The needle was carefully advanced into blood vessel lumen with ultrasound guidance. The guidewire was placed uneventfully. The vessel is dilated and the catheter was placed. It was sutured into position. There was good blood return from all ports. The patient tolerated the procedure well and there were no complications. Discussion w/ other healthcare providers: Dr. Mary performance improvement director [place]ham PA-C and Dr. Guillen inpatient medicine service Prior /Outside records reviewed: I reviewed a discharge summary from Dr. Mg from March 16, 2023. The patient does have a known history of small cell lung cancer that IMEs time right now have been all my kids been sick and I will need to be sick patient has received chemotherapy. The patient does have a known history of COPD. Patient was admitted at that time due to concern for sepsis secondary to UTI metabolic encephalopathy and circulatory shock I did review a palliative care consultation from Nevin Brown from February 28, 2023. She does state that she would want her to be her decision- maker. Differential diagnosis: Dehydration, UTI, pneumonia, metabolic derangment, electrolyte abnormalities, hypovolemia, anemia, cellulitis among others were considered. Diagnostics, as interpreted by me: ECG: None Cardiac monitoring: An order was placed for continuous cardiac monitoring. The monitor shows a rate of 45 with sinus rhythm. Patient was placed on pulse oximetry Medical decision rules: None Imaging studies: I informally interpreted the patient's CT head which does not show obvious ICH with formal report to follow. I informally interpreted the patient's chest x-ray which does show pleural effusions with formal report to follow HPI: Patient presents from [facility] due to concern for increasing combativeness and confusion. Patient was recently transferred there after UTI related sepsis. History is not obtainable from the patient as she is combative trying to bite staff and not following commands. PAST MEDICAL HISTORY: See Below PAST SURGICAL HISTORY: See Below SOCIAL HISTORY: See Below HOME MEDICATIONS: See Below ALLERGIES: See Below VITALS: See Below PHYSICAL EXAMINATION: GENERAL: Moves about the bed opens mouth EYE EXAM: Normal conjunctiva. PERRL, no anisocoria and EOM's grossly intact w/o pain. OROPHARYNX: Dry mucus membranes, grossly normal dentition. NECK: Supple, no nuchal rigidity, no adenopathy, non-tender. No signs of meningismus. FROM of the neck with good chin to chest and neck extension. No stridor. LUNGS: Clear to auscultation. Normal chest wall mechanics. HEART: NSR, no MRG. ABDOMEN: Abdomen soft, non-tender, no masses, no rebound or guarding. BACK: No CVA TTP. SKIN: No rashes and no bruising. UPPER EXTREMITIES: Upper extremities are grossly normal. LOWER EXTREMITIES: Grossly normal, no edema. NEURO EXAM: A&O x3, cranial nerves II-XII grossly intact, normal speech, moves all 4 extremities. Past Med/Surg History Medical History Status epilepticus Aspiration pneumonia Hypothermia Hypovolemic shock On antineoplastic chemotherapy Recurrent falls Osteoporosis 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 The majority represents a small cell carcinoma. The minority represents a non-small cell carcinoma without any definitive adenocarcinoma or squamous cell carcinoma differentiation. 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: No Beliefs That Will Affect Care: None Current Living Situation: Halfway Current Living Situation Comment: [facility] Feels Safe at Home: Yes Assistive Devices: Cane Allergies Allergies Allergy/AdvReac Type Severity Reaction Status Date / Time adhesive tape Allergy Unknown Redness of Verified 10/24/22 16:26 Skin morphine Allergy Unknown shock, Verified 10/17/22 08:28 dspnea neomycin Allergy Unknown Unknown Verified 10/24/22 16:26 Home Meds Home Medications Medication Instructions Recorded Confirmed furosemide 20 mg tablet 20 mg PO BID 02/27/23 03/20/23 acetaminophen 325 mg tablet 650 mg PO UD PRN Fever Or Pain 03/20/23 03/20/23 acetaminophen 500 mg tablet 1,000 mg PO Q8 PRN Fever Or Pain 03/20/23 03/20/23 (Tylenol Extra Strength) enoxaparin 40 mg/0.4 mL 40 mg subcut QAM 03/20/23 03/20/23 subcutaneous syringe (Lovenox) metoprolol succinate 25 mg 12.5 mg PO QAM 03/20/23 03/20/23 tablet,extended release 24 hr umeclidinium 62.5 mcg-vilanterol 1 ea inhalation QAM 03/20/23 03/20/23 25 mcg/actuation powdr for inhalation (Anoro Ellipta) Previous Rx's Medication Instructions Recorded levothyroxine 100 mcg tablet 100 mcg PO DAILY #30 tabs 10/20/22 (Synthroid) potassium chloride 10 mEq 10 meq PO DAILY #30 caps 11/02/22 capsule,extended release L.acidop,casei,lactis,rham-B.lact,mariama 2 cap PO DAILY 30 days #60 caps 03/16/23 625 mg (10 billion cell) capsule (Advanced Probiotic) calcium carbonate 500 mg-vitamin 2.5 tab PO DAILY 14 days #35 tabs 03/16/23 D3 15 mcg (600 unit) tablet (Os-Edin 500 + D3) magnesium oxide 400 mg (241.3 mg 400 mg PO BID 14 days #28 tabs 03/16/23 magnesium) tablet nirmatrelvir 300 mg (150 mg See Rx Instructions PO .COMPLEX 03/16/23 x2)-ritonavir 100 mg tablet,dose #30 ea pack (Paxlovid) pantoprazole 40 mg tablet,delayed 40 mg PO DAILY 30 days #30 tabs 03/16/23 release Results & Data (ED) Vital Signs Vital Signs - 24 hr 03/20/23 12:32 03/20/23 12:39 Temperature 29.3 C L Temperature Source Rectal Pulse Rate 47 L 56 L Respiratory Rate 20 Respiratory Effort / Characteristics Non-Labored Spontaneous Respiratory Depth Normal Pulse Oximetry 100 Oxygen Delivery Method Room Air Sepsis Recent Fever Within 48 Hours Yes Sepsis New/Unexplained Change in Mental Status Yes Sepsis Action Taken by Nursing Physician Notified Home Medications Current Medication List: was personally reviewed by me Laboratory Data Attestation: I reviewed the patient's lab results. 03/22/23 07:47 03/22/23 03:47 Lab Results 03/20/23 03/20/23 03/20/23 Range/Units 12:06 12:31 12:32 WBC 7.52 (4.8-10.8) K/ul RBC 2.71 L (4.20-5.40) M/uL Hgb 8.0 L (12.0-16.0) g/dl Hct 24.6 L (37.0-47.0) % MCV 90.8 (80.0-100.0) fL MCH 29.5 (25.0-34.0) pg MCHC 32.5 (32.0-36.0) g/dL RDW Std Deviation 49.1 H (36.4-46.3) fL RDW Coeff of Minal 16.5 H (11.5-14.5) % Plt Count 136 (130-400) K/uL MPV 9.5 (9.4-12.4) fL Immature Gran % (Auto) 1.2 % Neut % (Auto) 86.9 % Lymph % (Auto) 8.2 % Ballard % (Auto) 3.6 % Eos % (Auto) 0.0 % Baso % (Auto) 0.1 % Neut # (Auto) 6.53 H (1.40-6.50) K/uL Lymph # (Auto) 0.62 L (1.20-3.40) K/uL Ballard # (Auto) 0.27 (0.11-0.59) K/uL Eos # (Auto) 0.00 (0.00-0.50) K/uL Baso # (Auto) 0.01 (0.00-0.20) K/uL Immature Gran # (Auto) 0.09 (0.01-0.20) K/uL PT 14.6 H (9.0-12.0) Seconds INR 1.4 H (0.9-1.1) APTT 62 H (21-31) Seconds PTT Ratio 2.2 VBG pH (7.36-7.41) VBG pCO2 (38-50) mmHg VBG pO2 mmHg VBG HCO3 mmol/L VBG O2 Saturation % VBG Base Excess mEq/L Sodium 138 (136-145) mmol/L Potassium 3.8 (3.5-5.1) mmol/L Chloride 101 (98-107) mmol/L Carbon Dioxide 30 (21-32) mmol/L Anion Gap 7 (3-11) BUN 25 H (6-23) mg/dl Creatinine 0.63 (0.6-1.2) mg/dl Est Cr Clr Drug Dosing 65.8 ml/min Est GFR ( Amer) 103.1 ml/min Est GFR (Non-Af Amer) 89.0 ml/min BUN/Creatinine Ratio 39.7 H (10-20) Glucose 78 (70-99(Fasting)) mg/dl POC Glucose 74 (70-99) mg/dl Lactate 1.2 (0.4-2.0) mmol/L Calcium 7.7 L (8.6-10.3) mg/dl Magnesium 2.4 (1.7-2.4) mg/dl Total Bilirubin 1.3 H (0.2-1.0) mg/dl Direct Bilirubin 0.3 H (0-0.2) mg/dl AST 23 (13-39) U/L ALT 13 (7-52) U/L Alkaline Phosphatase 134 H (34-104) U/L Total Creatine Kinase 127 (26-192) U/L Troponin I High Sens 7.7 (0-14) pg/ml Total Protein 4.9 L (6.0-8.3) gm/dl Albumin 2.2 L (3.4-5.0) gm/dl Procalcitonin 0.09 (0-0.5) ng/ml TSH 10.333 H (0.300-4.500) uIu/ml Free T4 0.96 (0.61-1.60) ng/dl Random Cortisol mcg/dl Urine Color Urine Appearance (Clear) Urine pH (4.5-7.5) Ur Specific [place] (1.000-1.030) Urine Protein (Negative) Urine Glucose (UA) (Negative) Urine Ketones (Negative) Urine Blood (Negative) Urine Nitrite (Negative) Urine Bilirubin (Negative) Urine Urobilinogen (Negative) Ur Leukocyte Esterase (Negative) Urine RBC (0-4) /hpf Urine WBC (0-5) /hpf Ur Epithelial Cells (0-5) /lpf Urine Bacteria (Negative) Hyaline Casts (0-5) /lpf Adenovirus (PCR) (NotDetected) B. pertussis DNA (PCR) (NotDetected) B.parapertussis DNA PCR (NotDetected) C. pneumoniae DNA (PCR) (NotDetected) Coronavirus OC43 (PCR) (NotDetected) Coronavirus HKU1 (PCR) (NotDetected) Coronavirus 229E (PCR) (NotDetected) SARS-CoV-2 (PCR) (NotDetected) Coronavirus NL63 (PCR) (NotDetected) Human Metapneumovir PCR (NotDetected) Influenza Type A (PCR) (NotDetected) Influenza Type B (PCR) (NotDetected) M. pneumoniae (PCR) (NotDetected) Parainfluenza 1 (PCR) (NotDetected) Parainfluenza 2 (PCR) (NotDetected) Parainfluenza 3 (PCR) (NotDetected) Parainfluenza 4 (PCR) (NotDetected) RSV (PCR) (NotDetected) Entero/Rhino (PCR) (NotDetected) 03/20/23 03/20/23 03/20/23 Range/Units 13:27 15:34 15:35 WBC (4.8-10.8) K/ul RBC (4.20-5.40) M/uL Hgb (12.0-16.0) g/dl Hct (37.0-47.0) % MCV (80.0-100.0) fL MCH (25.0-34.0) pg MCHC (32.0-36.0) g/dL RDW Std Deviation (36.4-46.3) fL RDW Coeff of Minal (11.5-14.5) % Plt Count (130-400) K/uL MPV (9.4-12.4) fL Immature Gran % (Auto) % Neut % (Auto) % Lymph % (Auto) % Ballard % (Auto) % Eos % (Auto) % Baso % (Auto) % Neut # (Auto) (1.40-6.50) K/uL Lymph # (Auto) (1.20-3.40) K/uL Ballard # (Auto) (0.11-0.59) K/uL Eos # (Auto) (0.00-0.50) K/uL Baso # (Auto) (0.00-0.20) K/uL Immature Gran # (Auto) (0.01-0.20) K/uL PT (9.0-12.0) Seconds INR (0.9-1.1) APTT (21-31) Seconds PTT Ratio VBG pH 7.31 L (7.36-7.41) VBG pCO2 48 (38-50) mmHg VBG pO2 45 mmHg VBG HCO3 24 mmol/L VBG O2 Saturation 67.0 % VBG Base Excess -2.5 mEq/L Sodium 140 (136-145) mmol/L Potassium 3.1 L (3.5-5.1) mmol/L Chloride 110 H (98-107) mmol/L Carbon Dioxide 24 (21-32) mmol/L Anion Gap 6 (3-11) BUN 21 (6-23) mg/dl Creatinine 0.46 L (0.6-1.2) mg/dl Est Cr Clr Drug Dosing 79.4 ml/min Est GFR ( Amer) 114.4 ml/min Est GFR (Non-Af Amer) 98.7 ml/min BUN/Creatinine Ratio 45.7 H (10-20) Glucose 77 (70-99(Fasting)) mg/dl POC Glucose (70-99) mg/dl Lactate (0.4-2.0) mmol/L Calcium 5.9 L* (8.6-10.3) mg/dl Magnesium (1.7-2.4) mg/dl Total Bilirubin (0.2-1.0) mg/dl Direct Bilirubin (0-0.2) mg/dl AST (13-39) U/L ALT (7-52) U/L Alkaline Phosphatase (34-104) U/L Total Creatine Kinase (26-192) U/L Troponin I High Sens (0-14) pg/ml Total Protein (6.0-8.3) gm/dl Albumin (3.4-5.0) gm/dl Procalcitonin (0-0.5) ng/ml TSH (0.300-4.500) uIu/ml Free T4 (0.61-1.60) ng/dl Random Cortisol 13.09 mcg/dl Urine Color Yellow Urine Appearance Cloudy A (Clear) Urine pH 5.0 (4.5-7.5) Ur Specific [place] 1.016 (1.000-1.030) Urine Protein Negative (Negative) Urine Glucose (UA) Negative (Negative) Urine Ketones Negative (Negative) Urine Blood Trace H (Negative) Urine Nitrite Negative (Negative) Urine Bilirubin Negative (Negative) Urine Urobilinogen Negative (Negative) Ur Leukocyte Esterase 1+ H (Negative) Urine RBC 0-4 (0-4) /hpf Urine WBC 5-10 H (0-5) /hpf Ur Epithelial Cells >30 H (0-5) /lpf Urine Bacteria 1+ H (Negative) Hyaline Casts >30 H (0-5) /lpf Adenovirus (PCR) Not Detected (NotDetected) B. pertussis DNA (PCR) Not Detected (NotDetected) B.parapertussis DNA PCR Not Detected (NotDetected) C. pneumoniae DNA (PCR) Not Detected (NotDetected) Coronavirus OC43 (PCR) Not Detected (NotDetected) Coronavirus HKU1 (PCR) Not Detected (NotDetected) Coronavirus 229E (PCR) Not Detected (NotDetected) SARS-CoV-2 (PCR) DETECTED A* (NotDetected) Coronavirus NL63 (PCR) Not Detected (NotDetected) Human Metapneumovir PCR Not Detected (NotDetected) Influenza Type A (PCR) Not Detected (NotDetected) Influenza Type B (PCR) Not Detected (NotDetected) M. pneumoniae (PCR) Not Detected (NotDetected) Parainfluenza 1 (PCR) Not Detected (NotDetected) Parainfluenza 2 (PCR) Not Detected (NotDetected) Parainfluenza 3 (PCR) Not Detected (NotDetected) Parainfluenza 4 (PCR) Not Detected (NotDetected) RSV (PCR) Not Detected (NotDetected) Entero/Rhino (PCR) Not Detected (NotDetected) Administered Medications Discontinued Medications Atropine Sulfate (Atropine So4 1 Mg/Ml 1ml Vial) Confirm Administered Dose 1 mg .ROUTE .STK-MED ONE Stop: 03/20/23 13:11 Last Admin: 03/20/23 13:11 Dose: 1 mg Documented By: ES Atropine Sulfate (Atropine Sulfate 0.1 Mg/Ml 10ml Syr) 0.5 mg IV NOW STA Stop: 03/20/23 13:23 Last Admin: 03/20/23 13:46 Dose: Not Given Documented By: NA Atropine Sulfate (Atropine Sulfate 0.1 Mg/Ml 5ml Syr) 0.5 mg IV NOW STA Stop: 03/20/23 13:23 Last Admin: 03/20/23 13:45 Dose: Not Given Documented By: NA Atropine Sulfate (Atropine So4 1 Mg/Ml 1ml Vial) 1 mg IV NOW STA Stop: 03/20/23 14:43 Last Admin: 03/20/23 14:52 Dose: 1 mg Documented By: NA Atropine Sulfate (Atropine So4 1 Mg/Ml 1ml Vial) 1 mg IV NOW STA Stop: 03/20/23 14:49 Last Admin: 03/20/23 15:53 Dose: Not Given Documented By: CPB Dexamethasone (Dexamethasone Sod Inj 4 Mg/Ml Vial) 6 mg IV NOW STA Stop: 03/20/23 14:41 Last Admin: 03/20/23 15:29 Dose: 6 mg Documented By: CPB Enoxaparin Sodium (Enoxaparin Inj 40 Mg/0.4 Ml Syr) 40 mg SQ Q24H KVNG Stop: 04/19/23 21:59 Last Admin: 03/21/23 22:38 Dose: 40 mg Documented By: Admin: 03/20/23 21:09 Dose: 40 mg Documented By: CLC Enteral Nutritional Formula (Peptamen 1.5 Edin 1,000 Ml Bag) 1,000 ml OG .See Protocol KVNG; Protocol Stop: 04/20/23 15:14 Last Admin: 03/21/23 15:49 Dose: 1,000 ml Documented By: WRS Etomidate (Etomidate 2 Mg/Ml 20 Ml Vial) 20 mg IV NOW ONE Stop: 03/20/23 17:34 Last Admin: 03/20/23 17:45 Dose: Not Given Documented By: WRS Fentanyl Citrate (Fentanyl Citrate 2,500 Mcg/250 Ml Bag) Confirm Administered Dose 2,500 mcg IV .STK-MED ONE Stop: 03/20/23 17:11 Last Admin: 03/20/23 17:49 Dose: Not Given Documented By: WRS Sodium Chloride (Nss) 500 mls @ 999 mls/hr IV .Q31M KVNG Stop: 03/20/23 13:15 Last Infusion: 03/20/23 13:52 Dose: Infused Documented By: Admin: 03/20/23 13:14 Dose: 999 mls/hr Documented By: ES Sodium Chloride (Nss) 1,000 mls @ 999 mls/hr IV .Q1H1M KVNG Stop: 03/20/23 13:45 Last Infusion: 03/20/23 14:04 Dose: Infused Documented By: Admin: 03/20/23 13:11 Dose: 999 mls/hr Documented By: ES Vancomycin HCl 1,000 mg/ (Sodium Chloride) 520 mls @ 200 mls/hr IV NOW STA Stop: 03/20/23 15:00 Last Infusion: 03/20/23 16:40 Dose: Infused Documented By: Admin: 03/20/23 13:11 Dose: 200 mls/hr Documented By: ES Piperacillin Sod/Tazobactam Sod (Zosyn) 4.5 gm in 100 mls @ 200 mls/hr IV NOW STA Stop: 03/20/23 13:00 Last Infusion: 03/20/23 13:52 Dose: Infused Documented By: Admin: 03/20/23 13:12 Dose: 200 mls/hr Documented By: ES Sodium Chloride (Nss) 1,000 mls @ 999 mls/hr IV .Q1H1M ONE Stop: 03/20/23 14:52 Last Infusion: 03/20/23 16:40 Dose: Infused Documented By: Admin: 03/20/23 14:31 Dose: 999 mls/hr Documented By: NA Norepinephrine Bitartrate (Levophed/D5w) 4 mg in 250 mls @ 5.929 mls/hr IV .Q24H KVNG; Protocol Stop: 04/19/23 14:29 Last Titration: 03/22/23 20:15 Dose: Infused Documented By: Titration: 03/22/23 19:03 Dose: 0.03 mcg/kg/min, 5.9 mls/hr Documented By: Titration: 03/22/23 07:12 Dose: 0.03 mcg/kg/min, 5.9 mls/hr Documented By: CLC Co-signed By: DMB Admin: 03/22/23 00:10 Dose: 0.03 mcg/kg/min, 5.9 mls/hr Documented By: TP Co-signed By: ELS Titration: 03/22/23 00:10 Dose: Infused Documented By: TP Co-signed By: ELS Titration: 03/21/23 18:53 Dose: 0.03 mcg/kg/min, 5.9 mls/hr Documented By: WRS Co-signed By: CLC Admin: 03/21/23 11:57 Dose: Not Given Documented By: Titration: 03/21/23 11:57 Dose: 0.03 mcg/kg/min, 5.9 mls/hr Documented By: Titration: 03/21/23 07:19 Dose: 0.05 mcg/kg/min, 9.9 mls/hr Documented By: Titration: 03/21/23 06:54 Dose: 0.03 mcg/kg/min, 5.9 mls/hr Documented By: CLC Co-signed By: WRS Titration: 03/21/23 06:13 Dose: 0.03 mcg/kg/min, 5.9 mls/hr Documented By: Titration: 03/21/23 06:00 Dose: 0.05 mcg/kg/min, 9.9 mls/hr Documented By: Titration: 03/21/23 03:30 Dose: 0.07 mcg/kg/min, 13.8 mls/hr Documented By: Admin: 03/21/23 02:45 Dose: 0.2 mcg/kg/min, 39.5 mls/hr Documented By: CLC Co-signed By: TP Titration: 03/21/23 02:39 Dose: Infused Documented By: CLC Co-signed By: TP Titration: 03/20/23 22:39 Dose: 0.3 mcg/kg/min, 59.3 mls/hr Documented By: Admin: 03/20/23 22:29 Dose: 0.4 mcg/kg/min, 79.1 mls/hr Documented By: CLC Co-signed By: TP Titration: 03/20/23 22:29 Dose: Infused Documented By: CLC Co-signed By: TP Titration: 03/20/23 19:01 Dose: 0.08 mcg/kg/min, 15.8 mls/hr Documented By: CLC Co-signed By: WRS Titration: 03/20/23 15:53 Dose: 0.08 mcg/kg/min, 15.8 mls/hr Documented By: Titration: 03/20/23 15:36 Dose: 0.06 mcg/kg/min, 11.9 mls/hr Documented By: Titration: 03/20/23 14:52 Dose: 0.08 mcg/kg/min, 15.8 mls/hr Documented By: Admin: 03/20/23 14:32 Dose: 0.05 mcg/kg/min, 9.9 mls/hr Documented By: NA Co-signed By: BANG Dopamine HCl/Dextrose (Dopamine / D5w) 400 mg in 250 mls @ 8.893 mls/hr IV .Q24H KVNG; Protocol Stop: 04/19/23 15:59 Last Titration: 03/20/23 20:16 Dose: Infused Documented By: Titration: 03/20/23 19:01 Dose: 4.5 mcg/kg/min, 8.9 mls/hr Documented By: CLC Co-signed By: WRS Titration: 03/20/23 18:34 Dose: 4.5 mcg/kg/min, 8.9 mls/hr Documented By: Admin: 03/20/23 16:02 Dose: 2.5 mcg/kg/min, 4.9 mls/hr Documented By: PHILLIP Co-signed By: NIYAH Piperacillin Sod/Tazobactam (Sod 4.5 gm/ Dextrose) 100 mls @ 25 mls/hr IV Q8H KVNG; Protocol Stop: 03/27/23 16:59 Last Infusion: 03/22/23 20:12 Dose: Infused Documented By: Admin: 03/22/23 16:21 Dose: 25 mls/hr Documented By: Infusion: 03/22/23 12:25 Dose: Infused Documented By: Admin: 03/22/23 08:15 Dose: 25 mls/hr Documented By: Infusion: 03/22/23 03:53 Dose: Infused Documented By: Admin: 03/21/23 23:35 Dose: 25 mls/hr Documented By: Infusion: 03/21/23 20:26 Dose: Infused Documented By: Admin: 03/21/23 15:52 Dose: 25 mls/hr Documented By: Infusion: 03/21/23 11:50 Dose: Infused Documented By: Admin: 03/21/23 08:18 Dose: 25 mls/hr Documented By: Infusion: 03/21/23 05:46 Dose: Infused Documented By: Admin: 03/21/23 01:42 Dose: 25 mls/hr Documented By: Infusion: 03/20/23 21:28 Dose: Infused Documented By: Admin: 03/20/23 17:28 Dose: 25 mls/hr Documented By: KJL Vancomycin HCl 1,250 mg/ (Sodium Chloride) 275 mls @ 200 mls/hr IV Q18H [facility] Stop: 03/27/23 19:59 Last Infusion: 03/20/23 21:27 Dose: Infused Documented By: Admin: 03/20/23 20:00 Dose: 200 mls/hr Documented By: CLC Fentanyl Citrate (Fentanyl Citrate) 2,500 mcg in 250 mls @ 7.5 mls/hr IV .[id number] [facility]; Protocol Stop: 04/03/23 17:44 Last Titration: 03/22/23 01:43 Dose: Infused Documented By: CLC Co-signed By: TP Titration: 03/21/23 22:34 Dose: 75 mcg/hr, 7.5 mls/hr Documented By: CLC Co-signed By: TP Titration: 03/21/23 18:53 Dose: 50 mcg/hr, 5 mls/hr Documented By: WRMarlon Co-signed By: CLC Titration: 03/21/23 16:21 Dose: 50 mcg/hr, 5 mls/hr Documented By: WRS Co-signed By: NMS Titration: 03/21/23 11:58 Dose: 25 mcg/hr, 2.5 mls/hr Documented By: WRS Co-signed By: AJB Titration: 03/21/23 08:00 Dose: 0 mcg/hr, 0 mls/hr Documented By: ALVINO Co-signed By: NMS Titration: 03/21/23 06:54 Dose: 25 mcg/hr, 2.5 mls/hr Documented By: CLC Co-signed By: WRMarlon Titration: 03/21/23 02:46 Dose: 25 mcg/hr, 2.5 mls/hr Documented By: CLC Co-signed By: TP Titration: 03/20/23 19:01 Dose: 50 mcg/hr, 5 mls/hr Documented By: CLC Co-signed By: WRS Admin: 03/20/23 17:47 Dose: 50 mcg/hr, 5 mls/hr Documented By: ALVINO Co-signed By: ALEXADNRA Calcium Gluconate 1,000 mg/ (Sodium Chloride) 60 mls @ 240 mls/hr IV Q15M KVNG Stop: 03/20/23 18:14 Last Infusion: 03/20/23 18:33 Dose: Infused Documented By: Admin: 03/20/23 18:07 Dose: 240 mls/hr Documented By: Infusion: 03/20/23 18:05 Dose: Infused Documented By: Admin: 03/20/23 17:50 Dose: 240 mls/hr Documented By: ALVINO Dexamethasone 6 mg/ Syringe 1.5 mls @ 1 mls/min IV DAILY KVNG Stop: 04/20/23 08:59 Last Admin: 03/22/23 08:16 Dose: 1 mls/min Documented By: Admin: 03/21/23 08:19 Dose: 1 mls/min Documented By: ALVINO Potassium Chloride (K Nabor / Wtr) 20 meq in 100 mls @ 50 mls/hr IV Q2H KVNG Stop: 03/21/23 02:59 Last Admin: 03/21/23 03:14 Dose: Not Given Documented By: Infusion: 03/21/23 03:04 Dose: Infused Documented By: Admin: 03/21/23 00:57 Dose: 50 mls/hr Documented By: Infusion: 03/21/23 00:56 Dose: Infused Documented By: Admin: 03/20/23 22:56 Dose: 50 mls/hr Documented By: Infusion: 03/20/23 22:56 Dose: Infused Documented By: Admin: 03/20/23 21:06 Dose: 50 mls/hr Documented By: CLC Epinephrine HCl () 4 mg in 254 mls @ 3.52 mls/hr IV .Q24H FORMERLY [facility], [facility]; Protocol Stop: 04/19/23 20:29 Last Titration: 03/22/23 20:15 Dose: Infused Documented By: Titration: 03/22/23 19:03 Dose: 0.05 mcg/kg/min, 8.8 mls/hr Documented By: Titration: 03/22/23 11:57 Dose: 0.05 mcg/kg/min, 8.8 mls/hr Documented By: Titration: 03/22/23 07:12 Dose: 0.06 mcg/kg/min, 10.6 mls/hr Documented By: CLC Co-signed By: DMB Admin: 03/21/23 20:07 Dose: 0.06 mcg/kg/min, 10.6 mls/hr Documented By: CLC Co-signed By: TP Titration: 03/21/23 20:03 Dose: Infused Documented By: CLC Co-signed By: TP Titration: 03/21/23 18:53 Dose: 0.06 mcg/kg/min, 10.6 mls/hr Documented By: WRS Co-signed By: CLC Titration: 03/21/23 14:16 Dose: 0.06 mcg/kg/min, 10.6 mls/hr Documented By: Titration: 03/21/23 14:10 Dose: 0.05 mcg/kg/min, 8.8 mls/hr Documented By: Titration: 03/21/23 13:11 Dose: 0.04 mcg/kg/min, 7 mls/hr Documented By: Titration: 03/21/23 12:55 Dose: 0.05 mcg/kg/min, 8.8 mls/hr Documented By: Titration: 03/21/23 11:52 Dose: 0.06 mcg/kg/min, 10.6 mls/hr Documented By: Titration: 03/21/23 10:56 Dose: 0.07 mcg/kg/min, 12.3 mls/hr Documented By: Titration: 03/21/23 10:29 Dose: 0.08 mcg/kg/min, 14.1 mls/hr Documented By: Titration: 03/21/23 09:09 Dose: 0.09 mcg/kg/min, 15.8 mls/hr Documented By: Titration: 03/21/23 06:54 Dose: 0.1 mcg/kg/min, 17.6 mls/hr Documented By: CLC Co-signed By: WRS Titration: 03/21/23 06:47 Dose: 0.1 mcg/kg/min, 17.6 mls/hr Documented By: Titration: 03/21/23 06:15 Dose: 0.09 mcg/kg/min, 15.8 mls/hr Documented By: Titration: 03/21/23 04:59 Dose: 0.08 mcg/kg/min, 14.1 mls/hr Documented By: Titration: 03/21/23 04:55 Dose: 0.07 mcg/kg/min, 12.3 mls/hr Documented By: Titration: 03/21/23 03:30 Dose: 0.06 mcg/kg/min, 10.6 mls/hr Documented By: Titration: 03/21/23 00:47 Dose: 0.05 mcg/kg/min, 8.8 mls/hr Documented By: Titration: 03/20/23 22:39 Dose: 0.04 mcg/kg/min, 7 mls/hr Documented By: Titration: 03/20/23 21:30 Dose: 0.03 mcg/kg/min, 5.3 mls/hr Documented By: Admin: 03/20/23 20:23 Dose: 0.02 mcg/kg/min, 3.5 mls/hr Documented By: TP Co-signed By: CLC Lactated Ringer's (Lr) 500 mls @ 999 mls/hr IV .Q31M ONE Stop: 03/21/23 00:04 Last Infusion: 03/21/23 00:08 Dose: Infused Documented By: Admin: 03/20/23 23:37 Dose: 999 mls/hr Documented By: CLC Magnesium Sulfate/Dextrose (Magnesium Sulfate / D5w) 1 gm in 100 mls @ 50 mls/hr IV Q2H KVNG Stop: 03/21/23 06:29 Last Infusion: 03/21/23 06:37 Dose: Infused Documented By: Admin: 03/21/23 04:50 Dose: 50 mls/hr Documented By: Infusion: 03/21/23 04:50 Dose: Infused Documented By: Admin: 03/21/23 03:06 Dose: 50 mls/hr Documented By: CLC Lactated Ringer's (Lr) 500 mls @ 999 mls/hr IV .Q31M ONE Stop: 03/21/23 03:19 Last Infusion: 03/21/23 03:40 Dose: Infused Documented By: Admin: 03/21/23 03:06 Dose: 999 mls/hr Documented By: CLC Calcium Gluconate 1,000 mg/ (Sodium Chloride) 60 mls @ 240 mls/hr IV NOW ONE Stop: 03/21/23 04:14 Last Infusion: 03/21/23 04:50 Dose: Infused Documented By: Admin: 03/21/23 03:59 Dose: 240 mls/hr Documented By: TP Calcium Gluconate 1,000 mg/ (Sodium Chloride) 60 mls @ 240 mls/hr IV Q15M [facility] Stop: 03/21/23 10:29 Last Infusion: 03/21/23 10:27 Dose: Infused Documented By: Admin: 03/21/23 10:11 Dose: 240 mls/hr Documented By: Infusion: 03/21/23 10:11 Dose: Infused Documented By: Admin: 03/21/23 10:01 Dose: 240 mls/hr Documented By: ALVINO Sodium Chloride (Nss) 500 mls @ 500 mls/hr IV .Q1H ONE Stop: 03/21/23 10:59 Last Infusion: 03/21/23 10:57 Dose: Infused Documented By: Admin: 03/21/23 10:01 Dose: 500 mls/hr Documented By: ALVINO Pantoprazole Sodium 40 mg/ (Syringe) 10 mls @ 5 mls/min IV DAILY@1100 KVNG Stop: 04/20/23 10:59 Last Admin: 03/22/23 11:20 Dose: 5 mls/min Documented By: Admin: 03/21/23 10:13 Dose: 5 mls/min Documented By: ALVINO Propofol (Diprivan) 1,000 mg in 100 mls @ 6.036 mls/hr IV .[id number] KVNG; Protocol Stop: 03/24/23 23:14 Last Titration: 03/22/23 20:15 Dose: Infused Documented By: Titration: 03/22/23 19:03 Dose: 20 mcg/kg/min, 6 mls/hr Documented By: Admin: 03/22/23 15:48 Dose: 20 mcg/kg/min, 6 mls/hr Documented By: WS Co-signed By: DMB Titration: 03/22/23 15:48 Dose: Infused Documented By: WS Co-signed By: DMB Titration: 03/22/23 07:12 Dose: 20 mcg/kg/min, 6 mls/hr Documented By: CLC Co-signed By: DMB Admin: 03/21/23 23:30 Dose: 20 mcg/kg/min, 6 mls/hr Documented By: TP Co-signed By: KERI Lorazepam 2 mg/ Syringe 2 mls @ 2 mls/min IV ONCE ONE; Protocol Stop: 03/21/23 23:21 Last Admin: 03/21/23 23:30 Dose: 2 mls/min Documented By: TP Levetiracetam 2,000 mg/ Sodium (Chloride) 270 mls @ 999 mls/hr IV NOW STA Stop: 03/21/23 23:29 Last Infusion: 03/21/23 23:56 Dose: Infused Documented By: Admin: 03/21/23 23:29 Dose: 999 mls/hr Documented By: TP Levetiracetam 1,500 mg/ Sodium (Chloride) 115 mls @ 440 mls/hr IV BID KVNG Stop: 04/21/23 08:59 Last Infusion: 03/22/23 08:45 Dose: Infused Documented By: Admin: 03/22/23 08:16 Dose: 440 mls/hr Documented By: WS Midazolam HCl (Versed) 125 mg in 250 mls @ 2 mls/hr IV .Q96H KVNG; Protocol Stop: 04/20/23 23:44 Last Titration: 03/22/23 20:12 Dose: Infused Documented By: CLC Co-signed By: ELS Titration: 03/22/23 19:03 Dose: 1 mg/hr, 2 mls/hr Documented By: WS Co-signed By: CLC Titration: 03/22/23 07:12 Dose: 1 mg/hr, 2 mls/hr Documented By: CLC Co-signed By: BENTLEY Admin: 03/22/23 00:10 Dose: 1 mg/hr, 2 mls/hr Documented By: DIXON Co-signed By: KADE Calcium Gluconate 1,000 mg/ (Sodium Chloride) 60 mls @ 240 mls/hr IV Q15M KVNG Stop: 03/22/23 09:29 Last Infusion: 03/22/23 10:46 Dose: Infused Documented By: Admin: 03/22/23 10:08 Dose: 240 mls/hr Documented By: Infusion: 03/22/23 09:42 Dose: Infused Documented By: Admin: 03/22/23 09:27 Dose: 240 mls/hr Documented By: LESLYE Valproic Acid 2,000 mg/ (Dextrose) 120 mls @ 720 mls/hr IV NOW STA Stop: 03/22/23 12:41 Last Infusion: 03/22/23 13:26 Dose: Infused Documented By: Admin: 03/22/23 12:57 Dose: 720 mls/hr Documented By: BENTLEY Hydromorphone HCl (Dilaudid/Nss) 100 mg in 100 mls @ 0.2 mls/hr IV .Q96H KVNG; Protocol Stop: 04/05/23 19:59 Last Admin: 03/22/23 20:23 Dose: 0.2 mg/hr, 0.2 mls/hr Documented By: DIXON Co-signed By: KERI Insulin Aspart (Insulin Aspart Per Unit Charge) 0 units SC Q6 KVNG; Protocol Stop: 04/20/23 02:59 Last Admin: 03/21/23 06:12 Dose: 1 units Documented By: KERI Co-signed By: DIXON Admin: 03/21/23 03:08 Dose: 3 units Documented By: KERI Co-signed By: DIXON Insulin Aspart (Insulin Aspart Per Unit Charge) 0 units SC Q4 KVNG; Protocol Stop: 04/20/23 07:59 Last Admin: 03/22/23 16:06 Dose: Not Given Documented By: Admin: 03/22/23 11:37 Dose: 1 units Documented By: LESLYE Co-signed By: BENTLEY Admin: 03/22/23 08:15 Dose: 1 units Documented By: LESLYE Co-signed By: BENTLEY Admin: 03/22/23 04:34 Dose: Not Given Documented By: Admin: 03/21/23 23:55 Dose: Not Given Documented By: TP Co-signed By: KADE Admin: 03/21/23 20:56 Dose: Not Given Documented By: Admin: 03/21/23 16:17 Dose: Not Given Documented By: Admin: 03/21/23 11:38 Dose: Not Given Documented By: Admin: 03/21/23 08:17 Dose: 1 units Documented By: ALVINO Co-signed By: ELVIRA Levothyroxine Sodium (Levothyroxine Sodium 100 Mcg Tablet) 100 mcg PO DAILYBB KVNG Stop: 04/21/23 06:29 Last Admin: 03/22/23 06:28 Dose: 100 mcg Documented By: KERI Levothyroxine Sodium (Levothyroxine Sodium 100 Mcg Tablet) 100 mcg PO .EXTRA DOSE ONE Stop: 03/21/23 10:01 Last Admin: 03/21/23 10:12 Dose: 100 mcg Documented By: ALVINO Lorazepam (Lorazepam 1 Mg/1 Ml Syr Ed Inj Use) Confirm Administered Dose 1 mg .ROUTE .STK-MED ONE Stop: 03/20/23 13:01 Last Admin: 03/20/23 13:03 Dose: 0.5 mg Documented By: PEET Deleon ([facility] Electrolyte Replacement Protocol) 1 each N/A BID@06,18 KVNG; Protocol Stop: 03/27/23 17:59 Last Admin: 03/22/23 18:37 Dose: Not Given Documented By: Admin: 03/22/23 07:34 Dose: Not Given Documented By: Admin: 03/21/23 18:49 Dose: Not Given Documented By: Admin: 03/21/23 06:17 Dose: Not Given Documented By: Admin: 03/20/23 18:50 Dose: 1 each Documented By: ALVINO Dleeon ([facility] Protocol For Hyperglycemia) 1 each N/A ACHS KVNG Stop: 03/22/23 16:37 Last Admin: 03/21/23 07:19 Dose: Not Given Documented By: Admin: 03/20/23 21:46 Dose: Not Given Documented By: Admin: 03/20/23 17:54 Dose: Not Given Documented By: ALVINO Miscellaneous (Rapid Sequence Induction Bag) Confirm Administered Dose 1 each N/A .STK-MED ONE Stop: 03/20/23 16:51 Last Admin: 03/20/23 17:49 Dose: 1 each Documented By: ALVINO Sterile Water (Tube Feeding Water Flush) 125 ml OG Q4H KVNG Stop: 04/20/23 15:59 Last Admin: 03/22/23 16:07 Dose: 125 ml Documented By: Admin: 03/22/23 11:35 Dose: 125 ml Documented By: Admin: 03/22/23 08:17 Dose: 125 ml Documented By: Admin: 03/22/23 04:41 Dose: 125 ml Documented By: Admin: 03/21/23 23:31 Dose: 125 ml Documented By: Admin: 03/21/23 20:25 Dose: 125 ml Documented By: Admin: 03/21/23 15:50 Dose: 125 ml Documented By: ALVINO Imaging Data Radiologist's Impression: Abdomen/Pelvis CT 03/20/23 12:31 CT abd pelvis wo con CLINICAL HISTORY: fall, contusion to L flank TECHNIQUE: Helical axial images of the abdomen and pelvis were obtained. Automated dose lowering techniques and/or adjustment according to patient size were utilized for this exam. This exam was performed without intravenous contrast. CT DOSE: 1766.25 mGy.cm COMPARISON: Comparison is made to CT abdomen pelvis 523 FINDINGS: Lower chest: No acute abnormality. Liver: Portal venous gas is seen. Gallbladder and biliary tree: No calcified gallstones. Normal caliber wall. No intra- or extrahepatic biliary ductal dilation. Pancreas: Unremarkable, no focal lesions. Spleen: Unremarkable. Adrenals: Unremarkable. Kidneys and ureters: Nonobstructive stones are seen. Right collecting system prominence is similar in appearance to prior exam. Bladder: Delcid catheter is seen. Reproductive organs: Unremarkable. Bowel: The appendix is normal. Lymph nodes Retroperitoneal: Unremarkable. Pelvic: Unremarkable. Mesenteric: Unremarkable. Peritoneum: Trace free fluid in the pelvis is likely physiologic. Vessels: Atherosclerotic calcifications are seen. Left femoral venous catheter is seen. Abdominal wall: Unremarkable. Bones: There is an acute fracture of the right femur involving the greater trochanter. Posterior fixation hardware is seen in the lumbar spine spanning L3- L4. Left femoral hardware is seen. IMPRESSION: 1. Right greater trochanter fracture. The femoral neck and shaft appear grossly intact. 2. Portal venous gas may be secondary to venous injections patient with a left femoral venous catheter. 3. Additional findings as above. ACT 112: Negative or not required by law. Electronically signed by: Trent Woodruff M.D. 03/20/2023 3:[address] 03/20/23 12:[address] DOSE: HISTORY: Fall. Neck pain. TECHNIQUE: Multiaxial CT images of the cervical spine were performed and reformatted in the sagittal and coronal plane without the use of contrast. A dose lowering technique was utilized adhering to the principles of ALARA. COMPARISON: Cervical spine CT 02/27/2023. FINDINGS: Fluid levels within the left maxillary sinus and sphenoid sinus are better appreciated on the same day head CT. There is a small left mastoid effusion also noted. Biapical nodular densities persist and favor scarring. There is progressive interlobular septal thickening suggestive of pulmonary edema. No pneumothorax. The thyroid gland appears surgically absent. Moderate to severe disc space narrowing at C5-C6 and C6-C7. Moderate disc space narrowing at C4-C5 with 2 mm of anterolisthesis. This is likely due to the long-standing degenerative change. Prevertebral soft tissues and the C1-C2 interval are intact. IMPRESSION: No fractures within the cervical spine. Additional findings as described above. ACT 112: Negative or not required by law. Electronically signed by: Morris Lal M.D. 03/20/2023 3:[address] 03/20/23 12:31 CT chest diagnostic wo con CLINICAL HISTORY: fall TECHNIQUE: Multidetector row helical CT of the chest was performed. Coronal and sagittal reformations were obtained. Automated dose lowering techniques and/or adjustment according to patient size were utilized for this exam. Comparison: Comparison is made to CT chest 02/27/2023 FINDINGS: Lungs and pleura: Small bilateral pleural effusions are seen. Airspace opacities and bronchial wall thickening are noted in the bilateral lower lungs. Heart and pericardium: Heart size is normal. No pericardial effusion. Vessels: Gas is noted in the right atrium and pulmonary trunk. Mediastinum and jeane: Subcentimeter lymph nodes are seen. Chest wall and lower neck: Subcentimeter axillary lymph nodes noted. Abdomen: For findings below the diaphragm, please refer to CT of the abdomen dated the same. Bones: Degenerative changes in the thoracic spine. IMPRESSION: 1. Bilateral pleural effusions and airspace opacities may represent atelectasis, pneumonia, and/or aspiration. 2. Prominent gas is in the portal vein and pulmonary trunk and right atrium. This may represent venous injection. ACT 112: Negative or not required by law. Electronically signed by: Trent Woodruff M.D. 03/21/2023 6:18 AM Chest X-Ray 03/20/23 12:31 XR chest 1V portable HISTORY: 73 years-old Female Sepsis acute sepsis COMPARISON: Chest CT of same day TECHNIQUE: AP view of the chest. FINDINGS: Cardiac silhouette is enlarged. Pulmonary vascular congestion with small pleural effusions and patchy bibasilar consolidation. No pneumothorax. Atherosclerosis of the aorta. A burst right shoulder arthroplasty. Partially imaged lumbar spinal fusion hardware. IMPRESSION: 1. Cardiomegaly with pulmonary vascular congestion and small pleural effusions. 2. Patchy bibasilar consolidation suggestive of aspiration pneumonitis versus pneumonia. ACT 112: Negative or not required by law. The above report was generated using voice recognition software. It may contain grammatical, syntax or spelling errors. Electronically signed by: Patrick Jacobsen M.D. 03/20/2023 4:[address] 03/20/23 12:31 CT head/brain wo con CLINICAL HISTORY: 73 years-old Female with AMS. Acutely altered mental status TECHNIQUE: Multiple axial CT images of the head were obtained without contrast. A dose lowering technique was utilized adhering to the principles of ALARA. COMPARISON: 02/27/2023 FINDINGS: Mildly motion degraded exam. No acute intracranial hemorrhage, midline shift, intracranial mass, hydrocephalus, territorial ischemia or abnormal extra-axial collection. Involutional changes with suggestion of mild chronic microvascular ischemic disease. The calvarium is intact. Small left mastoid effusion. Moderate mucosal thickening of the ethmoid air cells, left maxillary and sphenoid sinuses with maxillary and sphenoid air fluid levels. Unremarkable soft tissues and orbits. IMPRESSION: No acute intracranial abnormality. ACT 112: Negative or not required by law. The above report was generated using voice recognition software. It may contain grammatical, syntax or spelling errors. Electronically signed by: Patrick Jacobsen M.D. 03/20/2023 3:13 PM Discharge Plan Visit Data Chief Complaint: Illness Stated Complaint: AMS ED Provider: Justice Wiley Discharge Problem: Hypovolemic shock, Hypothermia, Fracture of greater trochanter of right femur, COPD (chronic obstructive pulmonary disease), Acute metabolic encephalopathy Patient Disposition: Admitted As Inpatient Discharge Instructions Interventions: ED Discharge Assessment Last Done: 03/20/23 16:39 Discharge Problem: Hypothermia Qualifiers: Encounter type: initial encounter Qualified Code(s): T68.XXXA - Hypothermia, initial encounter Fracture of greater trochanter of right femur Qualifiers: Encounter type: initial encounter Fracture type: closed COPD (chronic obstructive pulmonary disease) Qualifiers: COPD type: unspecified COPD Qualified Code(s): J44.9 - Chronic obstructive pulmonary disease, unspecified
[2023-03-20] MEDS ORDERED: VANCOMYCIN CONSULT ACTIVE PRN (12:31)
[2023-03-20] MEDS ORDERED: VANCOMYCIN HCL 1,000 MG in SODIUM CHLORIDE 0.9% 500 ML IV STA (12:31)
[2023-03-20] MEDS ORDERED: PIPERACILLIN/TAZOBACTAM 4.5 GM/100 ML BAG IV STA (12:31)
[2023-03-20] MEDS ORDERED: SODIUM CHLORIDE 0.9% 500 ML IV SCH (12:45)
[2023-03-20] MEDS ORDERED: SODIUM CHLORIDE 0.9% 1,000 ML IV SCH (12:45)
[2023-03-20] MEDS ORDERED: LORazepam 1 MG/1 ML SYR ED Inj Use ONE (13:00)
[2023-03-20] MEDS ORDERED: ATROPINE SO4 1 MG/ML 1ML VIAL ONE (13:10)
[2023-03-20] MEDS ORDERED: ATROPINE SULFATE 0.1 MG/ML 5ML SYR IV STA (13:22)
[2023-03-20] MEDS ORDERED: ATROPINE SULFATE 0.1 MG/ML 10ML SYR IV STA (13:22)
[2023-03-20 13:36] LABS: Basophils # (auto) 0.01 K/uL (0.00-0.20); Basophils % (auto) 0.1 %; Hematocrit (blood only) 24.6 % (37.0-47.0); Immature Granulocytes # (auto) 0.09 K/uL (0.01-0.20); Immature Granulocytes % (auto) 1.2 %; Lymphocytes # (auto) 0.62 K/uL (1.20-3.40); Lymphocytes % (auto) 8.2 %; Mean Corpuscular Hemoglobin 29.5 pg (25.0-34.0); Mean Corpuscular Hgb Conc 32.5 g/dL (32.0-36.0); Mean Corpuscular Volume 90.8 fL (80.0-100.0); Mean Platelet Volume 9.5 fL (9.4-12.4); Monocytes # (auto) 0.27 K/uL (0.11-0.59); Monocytes % (auto) 3.6 %; Neutrophils # (auto) 6.53 K/uL (1.40-6.50); Neutrophils % (auto) 86.9 %; Platelet Count 136 K/uL (130-400); RDW Coefficient of Variation 16.5 % (11.5-14.5); RDW Standard Deviation 49.1 fL (36.4-46.3); Red Blood Count 2.71 M/uL (4.20-5.40); White Blood Count 7.52 K/ul (4.8-10.8)
[2023-03-20 13:52] LABS: Albumin Level 2.2 gm/dl (3.4-5.0); BUN Creatinine Ratio 39.7 (10-20); Bilirubin Direct 0.3 mg/dl (0-0.2); Bilirubin,Total 1.3 mg/dl (0.2-1.0); Calcium 7.7 mg/dl (8.6-10.3); Creatinine Clr Calc Pharmacy 65.8 ml/min; Est GFR (African American) 103.1 ml/min; Magnesium 2.4 mg/dl (1.7-2.4); Potassium 3.8 mmol/L (3.5-5.1); Total Protein 4.9 gm/dl (6.0-8.3)
[2023-03-20] MEDS ORDERED: SODIUM CHLORIDE 0.9% 1,000 ML IV ONE (13:52)
[2023-03-20 13:54] LABS: Troponin I High Sensitivity 7.7 pg/ml (0-14)
[2023-03-20 14:04] LABS: Appearance Urine Cloudy (Clear); Bilirubin Urine Negative (Negative); Blood Urine Trace (Negative); Color Urine Yellow; Glucose Urine UA Negative (Negative); Ketones Urine Negative (Negative); Leukocyte Esterase Urine 1+ (Negative); Nitrite Urine Negative (Negative); Protein Urine Negative (Negative); Specific Gravity Urine 1.016 (1.000-1.030); Urobilinogen Urine Negative (Negative)
[2023-03-20 14:07] LABS: INR 1.4 (0.9-1.1); Partial Thromboplastin Ratio 2.2; Partial Thromboplastin Time 62 Seconds (21-31); Prothrombin Time 14.6 Seconds (9.0-12.0)
[2023-03-20 14:16] LABS: Epithelial Cell Urine >30 /lpf (0-5); RBC Urine 0-4 /hpf (0-4)
[2023-03-20 14:17] LABS: Hyaline Casts Urine >30 /lpf (0-5)
[2023-03-20 14:19] LABS: Bacteria Urine 1+ (Negative)
[2023-03-20 14:28] LABS: Adenovirus PCR Not Detected (NotDetected); Bordetella parapertussis PCR Not Detected (NotDetected); Bordetella pertussis PCR Not Detected (NotDetected); Chlamydia pneumoniae PCR Not Detected (NotDetected); Coronavirus 229E PCR Not Detected (NotDetected); Coronavirus HKU1 PCR Not Detected (NotDetected); Coronavirus NL63 PCR Not Detected (NotDetected); Coronavirus OC43PCR Not Detected (NotDetected); Human Metapneumovirus PCR Not Detected (NotDetected); Influenza A PCR Not Detected (NotDetected); Influenza B PCR Not Detected (NotDetected); Mycoplasma pneumoniae PCR Not Detected (NotDetected); Parainfluenza Virus 1 PCR Not Detected (NotDetected); Parainfluenza Virus 2 PCR Not Detected (NotDetected); Parainfluenza Virus 3 PCR Not Detected (NotDetected); Parainfluenza Virus 4 PCR Not Detected (NotDetected); Respiratory Syncytial VirusPCR Not Detected (NotDetected); Rhinovirus/Enterovirus PCR Not Detected (NotDetected)
[2023-03-20] MEDS: Standard Conc; 4mg in 250mL IV SCH ×2 (14:32→22:29)
[2023-03-20] MEDS ORDERED: DEXAMETHASONE SOD INJ 4 MG/ML VIAL IV STA (14:40)
[2023-03-20 14:41] LABS: Coronavirus CoV-2 (COVID19)PCR DETECTED (NotDetected)
[2023-03-20] MEDS ORDERED: ATROPINE SO4 1 MG/ML 1ML VIAL IV STA ×2 (14:42→14:48)
--- NOTE | 2023-03-20 15:15 | CT Scan Report ---
CT head/brain wo con CLINICAL HISTORY: 73 years-old Female with AMS. Acutely altered mental status TECHNIQUE: Multiple axial CT images of the head were obtained without contrast. A dose lowering tech nique was utilized adhering to the principles of ALARA. COMPARISON: 02/27/2023 FINDINGS: Mildly motion degraded exam. No acute intracranial hemorrhage, midline shift, intracranial mass, hydr ocephalus, territorial ischemia or abnormal extra-axial collection. Involutional changes with suggest ion of mild chronic microvascular ischemic disease. The calvarium is intact. Small left mastoid effusion. Moderate mucosal thickening of the ethmoid air cells, left maxillary and sphenoid sinuses with maxillary and sphenoid air fluid levels. Unremarkabl e soft tissues and orbits. IMPRESSION: No acute intracranial abnormality. ACT 112: Negative or not required by law. The above report was generated using voice recognition software. It may contain grammatical, syntax o r spelling errors. Electronically signed by: Patrick Jacobsen M.D. 03/20/2023 3:13 PM
--- NOTE | 2023-03-20 15:43 | CT Scan Report ---
CERVICAL SPINE CT CT DOSE: HISTORY: Fall. Neck pain. TECHNIQUE: Multiaxial CT images of the cervical spine were performed and reformatted in the sagittal and coronal plane without the use of contrast. A dose lowering technique was utilized adhering to e principles of ALARA. COMPARISON: Cervical spine CT 02/27/2023. FINDINGS: Fluid levels within the left maxillary sinus and sphenoid sinus are better appreciated on t he same day head CT. There is a small left mastoid effusion also noted. Biapical nodular densities pe rsist and favor scarring. There is progressive interlobular septal thickening suggestive of pulmonary edema. No pneumothorax. The thyroid gland appears surgically absent. Moderate to severe disc space n arrowing at C5-C6 and C6-C7. Moderate disc space narrowing at C4-C5 with 2 mm of anterolisthesis. Thi s is likely due to the long-standing degenerative change. Prevertebral soft tissues and the C1-C2 int erval are intact. IMPRESSION: No fractures within the cervical spine. Additional findings as described above. ACT 112: Negative or not required by law. Electronically signed by: Morris Lal M.D. 03/20/2023 3:41 PM
[2023-03-20 15:47] LABS: Base Excess VBG -2.5 mEq/L; HCO3 VBG 24 mmol/L; PCO2 VBG 48 mmHg (38-50); PO2 VBG 45 mmHg; pH VBG 7.31 (7.36-7.41)
[2023-03-20 15:49] LABS: Thyroid Stimulating Hormone 10.333 uIu/ml (0.300-4.500)
--- NOTE | 2023-03-20 15:51 | CT Scan Report ---
CT abd pelvis wo con CLINICAL HISTORY: fall, contusion to L flank TECHNIQUE: Helical axial images of the abdomen and pelvis were obtained. Automated dose lowering tech niques and/or adjustment according to patient size were utilized for this exam. This exam was perfor med without intravenous contrast. CT DOSE: 1766.25 mGy.cm COMPARISON: Comparison is made to CT abdomen pelvis 523 FINDINGS: Lower chest: No acute abnormality. Liver: Portal venous gas is seen. Gallbladder and biliary tree: No calcified gallstones. Normal caliber wall. No intra- or extrahepatic biliary ductal dilation. Pancreas: Unremarkable, no focal lesions. Spleen: Unremarkable. Adrenals: Unremarkable. Kidneys and ureters: Nonobstructive stones are seen. Right collecting system prominence is similar in appearance to prior exam. Bladder: Delcid catheter is seen. Reproductive organs: Unremarkable. Bowel: The appendix is normal. Lymph nodes Retroperitoneal: Unremarkable. Pelvic: Unremarkable. Mesenteric: Unremarkable. Peritoneum: Trace free fluid in the pelvis is likely physiologic. Vessels: Atherosclerotic calcifications are seen. Left femoral venous catheter is seen. Abdominal wall: Unremarkable. Bones: There is an acute fracture of the right femur involving the greater trochanter. Posterior fixa tion hardware is seen in the lumbar spine spanning L3-L4. Left femoral hardware is seen. IMPRESSION: 1. Right greater trochanter fracture. The femoral neck and shaft appear grossly intact. 2. Portal venous gas may be secondary to venous injections patient with a left femoral venous cathet er. 3. Additional findings as above. ACT 112: Negative or not required by law. Electronically signed by: Trent Woodruff M.D. 03/20/2023 3:50 PM
[2023-03-20] MEDS ORDERED: DOPAMINE / D5W 400 MG/250 ML BRADYCARDIA IV SCH (16:00)
--- NOTE | 2023-03-20 16:14 | XRay Report ---
XR chest 1V portable HISTORY: 73 years-old Female Sepsis acute sepsis COMPARISON: Chest CT of same day TECHNIQUE: AP view of the chest. FINDINGS: Cardiac silhouette is enlarged. Pulmonary vascular congestion with small pleural effusions and patchy bibasilar consolidation. No pneumothorax. Atherosclerosis of the aorta. A burst right shoulder arthr oplasty. Partially imaged lumbar spinal fusion hardware. IMPRESSION: 1. Cardiomegaly with pulmonary vascular congestion and small pleural effusions. 2. Patchy bibasilar consolidation suggestive of aspiration pneumonitis versus pneumonia. ACT 112: Negative or not required by law. The above report was generated using voice recognition software. It may contain grammatical, syntax o r spelling errors. Electronically signed by: Patrick Jacobsen M.D. 03/20/2023 4:12 PM
[2023-03-20 16:25] LABS: T4 Free Thyroxine 0.96 ng/dl (0.61-1.60)
--- NOTE | 2023-03-20 16:25 | Critical Care Consultation ---
Date of Consultation March 20, 2023 Assessment & Plan (1) Hypovolemic shock: (2) Shock circulatory: (3) Hypothermia: (4) Bradycardia: (5) Acute metabolic encephalopathy: (6) Aspiration pneumonia: (7) Small cell lung cancer in adult: Plan 73-year-old female with a history of metastatic small cell lung cancer, recent hospital discharge due to complicated UTI, weight loss and postsurgical hypothyroidism presenting to the ER with acute encephalopathy and profound hypotension, bradycardia and hypothermia. Neurologic: Patient currently profoundly encephalopathic due to shock state and hypothermia. CT head without acute neurological findings. May need to proceed with MRI brain and EEG if encephalopathy is prolonged. May also need to consider lumbar puncture. Avoid sedatives at this time. Patient appears to be protecting her airway, but threshold for intubation is low at this time. Pulmonary: Patient had worsening encephalopathy and worsening acidosis on ABG. Patient was emergently intubated with a 7.5 endotracheal tube. She does have evidence of aspiration pneumonia on CT chest. Will proceed with lung protective ventilation strategy. Cardiovascular: Patient with circulatory shock at this time which is somewhat undifferentiated. Suspect an element of sepsis and hypovolemia. Bradycardia likely due to underlying hypothermia. TSH actually improved compared to prior TSH values. Will hold on IV levothyroxine at this time. Continue Levophed. Dopamine added as well to maintain heart rates greater than 70. MAP greater than 65 mmHg preferred. Gastrointestinal: N.p.o. at this time. CT abdomen pelvis without acute findings. LFTs largely unremarkable except for mild elevation of alkaline phosphatase and total bilirubin. Renal: Urine output adequate at this time. Received 3 L of crystalloid boluses in the ER. Follow electrolytes closely especially in light of patient's hypothermia. Infectious disease: Urine cultures and blood cultures pending. She grew Citrobacter on her last urine culture which was pansensitive. Continue vancomycin and Zosyn at this time. Patient is COVID-19 positive. Her first positive in our system was 03/16/2023. Her CT scan is not consistent with COVID viral pneumonia. Dexamethasone at this time is reasonable which may also help with any relative adrenal insufficiency. Would hold on remdesivir at this time as unlikely to be of benefit and also known to cause bradycardia. Hematologic: Patient with anemia of chronic disease which appears stable. Endocrine: Patient with evidence of hypothyroidism based on TSH. Patient unable to take p.o. by tomorrow, will need to start IV levothyroxine. Patient receiving dexamethasone in the ER which should help with relative adrenal insufficiency. Orthopedics: Patient with recent trochanteric fracture and humeral fracture. She underwent a right reverse total shoulder arthroplasty last admission. Lines and tubes: Left central line in the femoral vein placed 03/20/2023 by the ER. Temp sensing Delcid catheter in place. Left radial arterial line placed 03/20/2023. VTE prophylaxis: SCDs CODE STATUS: Patient was listed as full code on hospital discharge from 03/16/2023. Family at bedside: updated outside the room. He indicates that her wishes would be to be a full code. He recalls a palliative care discussion during her recent admission and would still prefer that she remain a full code at this time. Disposition: ICU I have personally spent 63 minutes of critical care time in the direct management of this patient. This is a life/limb threatening event. This includes time spent evaluating patient, direct bedside care, chart review, placing orders, interpretation of diagnostic studies, discussion with consultants, patient, and family members, as well as other required patient management activities. This time is exclusive of all separately billable procedures, and teaching time and separate from and in addition to any other critical care service time. Thank you for allowing us to participate in the care of this patient. History of Present Illness Reason for Consultation: Hypothermia, bradycardia and hypotension History of Present Illness Little to no history is obtainable from the patient and she is currently profoundly encephalopathic. History obtained from discussion with the ER physician, bedside RN and review of chart. Patient presented from [facility] care due to increasing confusion and combative behavior. Apparently when she arrived to the ER, she was trying to bite staff and not following any commands. Of note, she was discharged from the hospital 03/16/2023 for severe sepsis secondary to UTI, C. difficile, closed fracture of the right proximal humerus status post total shoulder arthroplasty, TAMIKO and COVID-19 infection. She presents today to the ER profoundly hypotensive with systolics in the 60s. A left femoral central line was placed by the ER staff. The patient was placed on Levophed and is currently on 0.06 mics per kilogram per hour. She also received a dose of atropine in the ER. Labs generally have been unremarkable. EKG has revealed sinus bradycardia with heart rates in the 40s and a prolonged QTc. VBG revealed mild respiratory acidosis. pH 7.31, pCO2 48 and serum bicarbonate 24. Thus far, she has received about 3 L of crystalloids. She is currently receiving vancomycin. She received a dose of Zosyn earlier. Head CT completed in the ER revealed a small mastoid effusion. Moderate mucosal thickening of the ethmoid air cells, left maxillary and sphenoid sinuses with maxillary and sphenoid air-fluid levels. No acute intracranial abnormality. CT cervical spine without evidence of fractures. Chest x-ray per my review revealed a right lower lobe infiltrate and prominent interstitial markings bilaterally. Lung tillman appear hyperinflated. CT chest per my review revealed mild emphysematous change. Groundglass opacities noted in the right upper lobe abutting the fissure and right lower lobe nodular densities noted consistent with aspiration pneumonitis. CT abdomen and pelvis revealed right greater trochanter fracture, portal gas in the venous circulation. 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 She is status postchemotherapy and follows with oncology at [facility]. She also has severe osteoporosis, surgically resected thyroid on levothyroxine therapy, COPD, paroxysmal supraventricular tachycardia and anemia of chronic disease. Allergies Allergy/AdvReac Type Severity Reaction Status Date / Time adhesive tape Allergy Unknown Redness of Verified 10/24/22 16:26 Skin morphine Allergy Unknown shock, Verified 10/17/22 08:28 dspnea neomycin Allergy Unknown Unknown Verified 10/24/22 16:26 Home Medications Medication Instructions Recorded Confirmed Type levothyroxine 100 mcg tablet 100 mcg PO DAILY #30 tabs 10/20/22 03/20/23 Rx (Synthroid) potassium chloride 10 mEq 10 meq PO DAILY #30 caps 11/02/22 03/20/23 Rx capsule,extended release furosemide 20 mg tablet 20 mg PO BID 02/27/23 03/20/23 History L.acidop,casei,lactis,rham-B.lact,mariama 2 cap PO DAILY 30 days #60 caps 03/16/23 03/20/23 Rx 625 mg (10 billion cell) capsule (Advanced Probiotic) calcium carbonate 500 mg-vitamin 2.5 tab PO DAILY 14 days #35 tabs 03/16/23 03/20/23 Rx D3 15 mcg (600 unit) tablet (Os-Edin 500 + D3) dicyclomine 10 mg capsule 10 mg PO TID PRN Abdominal Pain 7 03/16/23 03/20/23 Rx days #15 caps magnesium oxide 400 mg (241.3 mg 400 mg PO BID 14 days #28 tabs 03/16/23 03/20/23 Rx magnesium) tablet nirmatrelvir 300 mg (150 mg See Rx Instructions PO .COMPLEX 03/16/23 03/20/23 Rx x2)-ritonavir 100 mg tablet,dose #30 ea pack (Paxlovid) pantoprazole 40 mg tablet,delayed 40 mg PO DAILY 30 days #30 tabs 03/16/23 03/20/23 Rx release vancomycin 125 mg capsule 125 mg PO QID 5 days #20 caps 03/16/23 03/20/23 Rx acetaminophen 325 mg tablet 650 mg PO UD PRN Fever Or Pain 03/20/23 03/20/23 History acetaminophen 500 mg tablet 1,000 mg PO Q8 PRN Fever Or Pain 03/20/23 03/20/23 History (Tylenol Extra Strength) enoxaparin 40 mg/0.4 mL 40 mg subcut QAM 03/20/23 03/20/23 History subcutaneous syringe (Lovenox) metoprolol succinate 25 mg 12.5 mg PO QAM 03/20/23 03/20/23 History tablet,extended release 24 hr umeclidinium 62.5 mcg-vilanterol 1 ea inhalation QAM 03/20/23 03/20/23 History 25 mcg/actuation powdr for inhalation (Anoro Ellipta) Patient History Medical History (Updated 03/20/23 @ 16:14 by Tobias Walker MD) Aspiration pneumonia Hypothermia Hypovolemic shock On antineoplastic chemotherapy Recurrent falls Osteoporosis 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 The majority represents a small cell carcinoma. The minority represents a non-small cell carcinoma without any definitive adenocarcinoma or squamous cell carcinoma differentiation. 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 She is in severe distress. Eyes: Pupils are equal round and reactive to light. Conjunctivae are normal. Anicteric sclera. Ears nose, mouth and throat: Mallampati class 2. Normal posterior oropharynx. Uvula is midline. Neck: Trachea is midline. Visual inspection is normal. Respiratory: Clear to auscultation bilaterally. No use of accessory muscles. No significant clubbing noted. Cardiovascular: Bradycardic. No murmurs. No edema. Gastrointestinal: Normal bowel sounds, soft, nontender and nondistended. No hepatosplenomegaly noted. Musculoskeletal: No cyanosis. Patient is able to move all extremities. Strength is 5 out of 5 in the upper and lower extremities. Skin: No rashes, warm dry and intact. Neurologic: Obtunded. Withdraws from painful stimuli such as nailbed pressure and sternal rub. Psychiatric: Obtunded. Results & Data Results & Data Vital Signs (Past 12 Hours) Vital Signs Temp Pulse Pulse Resp BP Pulse Ox O2 Del Method 03/20/23 15:11 30.3 C L 52 L 17 107/64 91 Room Air 03/20/23 15:00 30.3 C L 53 L 20 94/66 L 100 Nasal Cannula 03/20/23 14:40 30.4 C L 46 L 17 67/44 L 93 Room Air 03/20/23 14:28 30.2 C L 45 L 17 61/44 L 93 Room Air 03/20/23 14:20 30.0 C L 47 L 16 61/39 L 91 Room Air 03/20/23 13:55 95 Room Air 03/20/23 13:43 50 L 14 82/47 L 98 Room Air 03/20/23 13:42 98 Room Air 03/20/23 13:40 82/54 L 03/20/23 13:30 28.5 C L 03/20/23 13:10 33 L 03/20/23 12:39 56 L 03/20/23 12:32 29.3 C L 47 L 20 100 Room Air O2 Flow Rate 03/20/23 15:11 03/20/23 15:00 2 03/20/23 14:40 03/20/23 14:28 03/20/23 14:20 03/20/23 13:55 03/20/23 13:43 03/20/23 13:42 03/20/23 13:40 03/20/23 13:30 03/20/23 13:10 03/20/23 12:39 03/20/23 12:32 Coding Level of Care Code 90273 CRITICAL CARE 1ST 30-74M Diagnoses Hypovolemic shock R57.1 Shock circulatory R57.9 Hypothermia T68.XXXA Bradycardia R00.1 Acute metabolic encephalopathy G93.41 Aspiration pneumonia J69.0 Small cell lung cancer in adult C34.90
[2023-03-20 16:35] LABS: Base Excess ABG -3.6 mEq/L (-9-1.8); HCO3 ABG 24 mmol/L (19-24); Oxygen Saturation ABG 91.7 % (90-95); PCO2 ABG 54 mmHg (35-46); PO2 ABG 81 mmHg (80-95); pH ABG 7.26 (7.35-7.45)
[2023-03-20 16:36] LABS: Allen Test Pos (Pos)
[2023-03-20] MEDS ORDERED: RAPID SEQUENCE INDUCTION BAG ONE (16:50)
--- NOTE | 2023-03-20 16:52 | History & Physical Report ---
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 Circulatory shock Aspiration pneumonia Hypothermia Bradycardia Acute metabolic encephalopathy Admitted to intensive care unit Autom[employer] Service Director Dr. Walker consulted - discussed with printing machine mechanic regarding pt and pt to be placed on dopamine gtt continue nor epi and dopamine continue IV Vanco/Zosyn for aspiration pneumonitis Fluids per ICU --CT head: w/o acute neurologic finding Defer to printing machine mechanic regarding airway, possible need for intubation if pt further deteriorates may need MRI, EEG if continues, also consider lumbar puncture per ICU blood and urine culture pending previous urine culture citrobacter which was pansensitive NPO COVID-19 Positive tested positive upon discharge on 03/16 will continue with IV dexamethasone per ICU which may help with adrenal insufficiency will hold on remdesivir for now CXR no evidence of viral pneumonia Acute on chronic anemia Baseline hemoglobin around 9 Required 2 units PRBC during most recent hospitalization, blood loss felt likely secondary to acute fracture Hemoglobin stable at 8 although patient likely volume depleted Follow repeat labs Recent right humerus fracture, age-related osteoporosis with current pathologic fracture status post right reverse TSA on 03/05/2023 -NWB Recent fracture of greater trochanter of right femur, again age-related osteoporosis with current pathologic fracture - WBAT Small Cell Lung Ca On carboplatin and etoposide supplied as well as pegfilgrastim Last treatment was prior to recent hospitalization in February Post surgical hypothyroidism TSH mildly elevated, T4 normal will need to consider IV levothyroxine due to NPO status Lines: L central Fem Vein; Arterial Line : Delcid - temp sensing FULL CODE: Attempted to contact Pt , number in chart, no answer, will re attempt Pt was seen and examined in collaboration with Dr. Guillen, please see addendum A total of 97 minutes was spent coordinating, documenting, and providing care for this patient excluding time spent in the performance of separately billed services. This included personally viewing all current laboratories and imaging studies, medication reconciliation, outpatient chart review, and discussion with specialists. History of Present Illness Chief Complaint: Referred from [facility] due to freq falls, worsened mental status Primary Care Provider: [facility] This is a 73-year-old female who has a significant past medical history of small cell lung cancer with non-small cell cancer involving the right supraclavicular node, COPD, osteoporosis, hypothyroidism who presents to ED from [facility] secondary to frequent falls and confusion. Of significance patient was recently hospitalized 02/27 to 03/16/2023 secondary to metabolic encephalopathy, circulatory shock, septic shock in setting of UTI, symptomatic anemia with a hemoglobin of 6.5 status post 2 units PRBC and TAMIKO admitted to ICU on Levophed, and IV Zosyn. On admission patient was found to have a right femur fracture as well as a right humeral fracture. She underwent reverse total shoulder arthroplasty on 03/05/2023. She is nonweightbearing to the right upper extremity. Her right greater trochanteric fracture at this time was deemed as a subacute and she was made weightbearing as tolerated. She did not undergo surgical fixation for this. Her hospital stay was complicated with C. difficile and when she was placed on oral Vanco on 03/08. Also upon discharge she incidentally tested positive for COVID-19. She has been to rehab for 4 days now and was sent back today due to frequent falls and increased confusion. Unable to obtain ROS from patient as she is obtunded. History obtained from ED providers. Discussed case with critical care provider at bedside. patient arrived to ER she was trying to bite staff and was not following any commands. Upon arrival patient was found to be hypothermic, hypotensive and bradycardic. Her hypotension did not respond to fluid boluses and therefore she was started on nor epi. She had a left femoral central line placed. So far she has received IV vancomycin and IV Zosyn. Lab work notable for a mild respiratory acidosis but otherwise a CBC and CMP generally unremarkable. Her hemoglobin is stable at 8. Her procalcitonin is negative. Urine suspicious for UTI. Chest x-ray per my review reveals a right lower lobe consolidation. Chest CT also evidence of aspiration pneumonitis. Her TSH was mildly elevated but improved from previous but T4 is normal. Allergies Allergy/AdvReac Type Severity Reaction Status Date / Time adhesive tape Allergy Unknown Redness of Verified 10/24/22 16:26 Skin morphine Allergy Unknown shock, Verified 10/17/22 08:28 dspnea neomycin Allergy Unknown Unknown Verified 10/24/22 16:26 Home Medications Medication Instructions Recorded Confirmed Type levothyroxine 100 mcg tablet 100 mcg PO DAILY #30 tabs 10/20/22 03/20/23 Rx (Synthroid) potassium chloride 10 mEq 10 meq PO DAILY #30 caps 11/02/22 03/20/23 Rx capsule,extended release furosemide 20 mg tablet 20 mg PO BID 02/27/23 03/20/23 History L.acidop,casei,lactis,rham-B.lact,mariama 2 cap PO DAILY 30 days #60 caps 03/16/23 03/20/23 Rx 625 mg (10 billion cell) capsule (Advanced Probiotic) calcium carbonate 500 mg-vitamin 2.5 tab PO DAILY 14 days #35 tabs 03/16/23 03/20/23 Rx D3 15 mcg (600 unit) tablet (Os-Edni 500 + D3) dicyclomine 10 mg capsule 10 mg PO TID PRN Abdominal Pain 7 03/16/23 03/20/23 Rx days #15 caps magnesium oxide 400 mg (241.3 mg 400 mg PO BID 14 days #28 tabs 03/16/23 03/20/23 Rx magnesium) tablet nirmatrelvir 300 mg (150 mg See Rx Instructions PO .COMPLEX 03/16/23 03/20/23 Rx x2)-ritonavir 100 mg tablet,dose #30 ea pack (Paxlovid) pantoprazole 40 mg tablet,delayed 40 mg PO DAILY 30 days #30 tabs 03/16/23 03/20/23 Rx release vancomycin 125 mg capsule 125 mg PO QID 5 days #20 caps 03/16/23 03/20/23 Rx acetaminophen 325 mg tablet 650 mg PO UD PRN Fever Or Pain 03/20/23 03/20/23 History acetaminophen 500 mg tablet 1,000 mg PO Q8 PRN Fever Or Pain 03/20/23 03/20/23 History (Tylenol Extra Strength) enoxaparin 40 mg/0.4 mL 40 mg subcut QAM 03/20/23 03/20/23 History subcutaneous syringe (Lovenox) metoprolol succinate 25 mg 12.5 mg PO QAM 03/20/23 03/20/23 History tablet,extended release 24 hr umeclidinium 62.5 mcg-vilanterol 1 ea inhalation QAM 03/20/23 03/20/23 History 25 mcg/actuation powdr for inhalation (Anoro Ellipta) Past Med/Surg History Medical History Aspiration pneumonia Hypothermia Hypovolemic shock On antineoplastic chemotherapy Recurrent falls Osteoporosis 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 The majority represents a small cell carcinoma. The minority represents a non-small cell carcinoma without any definitive adenocarcinoma or squamous cell carcinoma differentiation. Pulmonary hypertension Postsurgical hypothyroidism Reflux esophagitis PSVT (paroxysmal supraventricular tachycardia) COPD (chronic obstructive pulmonary disease) Vitamin D deficiency Surgical History Hx of lumbosacral spine surgery x3 Hx of thyroidectomy Hx of colonoscopy Family History Other Breast cancer Social History Smoking Status: Former smoker Tobacco Type: Cigarettes Cigarettes Per Day: 1 pack a week; Smoking End Date: 4 months ago; Second Hand Exposure: No; Do You Dip or Chew Tobacco: No; Tobacco Cessation Education Requested by Patient: No Hx Alcohol Use: No Hx Substance Use: No Preferred Language: Israeli Communication Ability: Impaired Radiology Interventional Physician Required: No Beliefs That Will Affect Care: None Current Living Situation: Detention Current Living Situation Comment: [facility] Other Information That Helps Us Care for You: No Feels Safe at Home: Yes Safety Concerns: Feels Safe At This Time Assistive Devices: Glasses and Walker Review of Systems Review of Systems: All systems reviewed & are unremarkable except as noted in HPI & below Physical Exam Physical Exam: Constitutional: WD/WN, Critically ill F, obtunded, GCS 5, vitals as above Head: Normocephalic, Atraumatic Eyes: pupils dilated, minimally reactive, conjunctivae normal, anicteric sclerae ENMT: external ear and nose normal, oropharynx normal dry membranes, Mouth in open position Neck: trachea midline, no thyromegaly normal visual inspection Respiratory: normal respiratory effort, b/l crackles heard throughout, R > L, . On O2 via NC. Normal insp/exp effort, no accessory muscle use Cardiovascular: bradycardic rate, reg rhythm, no murmur, +1 ankle edema Vessels: no JVD or carotid bruit Chest: normal inspection of chest Abdomen: normal bowel sounds, soft, nontender Musculoskeletal: L femoral line, R should NVI, with bruising ecchymosis, incision well healed, central area that is crusted over/healing Skin: no rashes, warm and dry normal turgor Neurologic: unable to assess due to mental status Psychiatric: Not alert, withdrawals to painful stimuli, euthymic affect Lymphatic: no cervical or axillary lymphadenopathy : deferred Results & Data Results & Data Vital Signs (Past 12 Hours) Vital Signs Temp Pulse Pulse Resp BP Pulse Ox O2 Del Method 03/20/23 16:28 30.8 C L 73 20 114/67 91 Nasal Cannula 03/20/23 15:44 30.5 C L 54 L 22 84/59 L 94 Nasal Cannula 03/20/23 15:11 30.3 C L 52 L 17 107/64 91 Room Air 03/20/23 15:00 30.3 C L 53 L 20 94/66 L 100 Nasal Cannula 03/20/23 14:40 30.4 C L 46 L 17 67/44 L 93 Room Air 03/20/23 14:28 30.2 C L 45 L 17 61/44 L 93 Room Air 03/20/23 14:20 30.0 C L 47 L 16 61/39 L 91 Room Air 03/20/23 13:55 95 Room Air 03/20/23 13:43 50 L 14 82/47 L 98 Room Air 03/20/23 13:42 98 Room Air 03/20/23 13:40 82/54 L 03/20/23 13:30 28.5 C L 03/20/23 13:10 33 L 03/20/23 12:39 56 L 03/20/23 12:32 29.3 C L 47 L 20 100 Room Air O2 Flow Rate 03/20/23 16:28 2 03/20/23 15:44 2 03/20/23 15:11 03/20/23 15:00 2 03/20/23 14:40 03/20/23 14:28 03/20/23 14:20 03/20/23 13:55 03/20/23 13:43 03/20/23 13:42 03/20/23 13:40 03/20/23 13:30 03/20/23 13:10 03/20/23 12:39 03/20/23 12:32 Laboratory Results I have independently reviewed and interpreted patient's admitting labs including CBC, CMP, PTT, PT/INR, mag, ABG, TSH, lactic acid, procal, UA, Resp Biofire and troponin. Diagnostic Findings Abdomen/Pelvis CT 03/20/23 12:31 CT abd pelvis wo con CLINICAL HISTORY: fall, contusion to L flank TECHNIQUE: Helical axial images of the abdomen and pelvis were obtained. Automated dose lowering techniques and/or adjustment according to patient size were utilized for this exam. This exam was performed without intravenous contrast. CT DOSE: 1766.25 mGy.cm COMPARISON: Comparison is made to CT abdomen pelvis 523 FINDINGS: Lower chest: No acute abnormality. Liver: Portal venous gas is seen. Gallbladder and biliary tree: No calcified gallstones. Normal caliber wall. No intra- or extrahepatic biliary ductal dilation. Pancreas: Unremarkable, no focal lesions. Spleen: Unremarkable. Adrenals: Unremarkable. Kidneys and ureters: Nonobstructive stones are seen. Right collecting system prominence is similar in appearance to prior exam. Bladder: Delcid catheter is seen. Reproductive organs: Unremarkable. Bowel: The appendix is normal. Lymph nodes Retroperitoneal: Unremarkable. Pelvic: Unremarkable. Mesenteric: Unremarkable. Peritoneum: Trace free fluid in the pelvis is likely physiologic. Vessels: Atherosclerotic calcifications are seen. Left femoral venous catheter is seen. Abdominal wall: Unremarkable. Bones: There is an acute fracture of the right femur involving the greater trochanter. Posterior fixation hardware is seen in the lumbar spine spanning L3- L4. Left femoral hardware is seen. IMPRESSION: 1. Right greater trochanter fracture. The femoral neck and shaft appear grossly intact. 2. Portal venous gas may be secondary to venous injections patient with a left femoral venous catheter. 3. Additional findings as above. ACT 112: Negative or not required by law. Electronically signed by: Trent Woodruff M.D. 03/20/2023 3:[address] 03/20/23 12:[address] DOSE: HISTORY: Fall. Neck pain. TECHNIQUE: Multiaxial CT images of the cervical spine were performed and reformatted in the sagittal and coronal plane without the use of contrast. A dose lowering technique was utilized adhering to the principles of ALARA. COMPARISON: Cervical spine CT 02/27/2023. FINDINGS: Fluid levels within the left maxillary sinus and sphenoid sinus are better appreciated on the same day head CT. There is a small left mastoid effusion also noted. Biapical nodular densities persist and favor scarring. There is progressive interlobular septal thickening suggestive of pulmonary edema. No pneumothorax. The thyroid gland appears surgically absent. Moderate to severe disc space narrowing at C5-C6 and C6-C7. Moderate disc space narrowing at C4-C5 with 2 mm of anterolisthesis. This is likely due to the long-standing degenerative change. Prevertebral soft tissues and the C1-C2 interval are intact. IMPRESSION: No fractures within the cervical spine. Additional findings as described above. ACT 112: Negative or not required by law. Electronically signed by: Morris Lal M.D. 03/20/2023 3:41 PM Chest X-Ray 03/20/23 12:31 XR chest 1V portable HISTORY: 73 years-old Female Sepsis acute sepsis COMPARISON: Chest CT of same day TECHNIQUE: AP view of the chest. FINDINGS: Cardiac silhouette is enlarged. Pulmonary vascular congestion with small pleural effusions and patchy bibasilar consolidation. No pneumothorax. Atherosclerosis of the aorta. A burst right shoulder arthroplasty. Partially imaged lumbar spinal fusion hardware. IMPRESSION: 1. Cardiomegaly with pulmonary vascular congestion and small pleural effusions. 2. Patchy bibasilar consolidation suggestive of aspiration pneumonitis versus pneumonia. ACT 112: Negative or not required by law. The above report was generated using voice recognition software. It may contain grammatical, syntax or spelling errors. Electronically signed by: Patrick Jacobsen M.D. 03/20/2023 4:[address] 03/20/23 12:31 CT head/brain wo con CLINICAL HISTORY: 73 years-old Female with AMS. Acutely altered mental status TECHNIQUE: Multiple axial CT images of the head were obtained without contrast. A dose lowering technique was utilized adhering to the principles of ALARA. COMPARISON: 02/27/2023 FINDINGS: Mildly motion degraded exam. No acute intracranial hemorrhage, midline shift, intracranial mass, hydrocephalus, territorial ischemia or abnormal extra-axial collection. Involutional changes with suggestion of mild chronic microvascular ischemic disease. The calvarium is intact. Small left mastoid effusion. Moderate mucosal thickening of the ethmoid air cells, left maxillary and sphenoid sinuses with maxillary and sphenoid air fluid levels. Unremarkable soft tissues and orbits. IMPRESSION: No acute intracranial abnormality. ACT 112: Negative or not required by law. The above report was generated using voice recognition software. It may contain grammatical, syntax or spelling errors. Electronically signed by: Patrick Jacobsen M.D. 03/20/2023 3:13 PM Medications Administered Medication List Norepinephrine Bitartrate (Levophed/D5w) 4 mg in 250 mls @ 15.81 mls/hr IV .[id number] [facility]; Protocol Stop: 04/19/23 14:29 Last Titration: 03/20/23 15:53 Dose: 0.08 mcg/kg/min, 15.8 mls/hr Documented By: Titration: 03/20/23 15:36 Dose: 0.06 mcg/kg/min, 11.9 mls/hr Documented By: Titration: 03/20/23 14:52 Dose: 0.08 mcg/kg/min, 15.8 mls/hr Documented By: Admin: 03/20/23 14:32 Dose: 0.05 mcg/kg/min, 9.9 mls/hr Documented By: NA Co-signed By: BANG Dopamine HCl/Dextrose (Dopamine / D5w) 400 mg in 250 mls @ 4.941 mls/hr IV .Q24H [facility]; Protocol Stop: 04/19/23 15:59 Last Admin: 03/20/23 16:02 Dose: 2.5 mcg/kg/min, 4.9 mls/hr Documented By: PHILLIP Co-signed By: NIYAH Discontinued Medications Atropine Sulfate (Atropine So4 1 Mg/Ml 1ml Vial) Confirm Administered Dose 1 mg .ROUTE .STK-MED ONE Stop: 03/20/23 13:11 Last Admin: 03/20/23 13:11 Dose: 1 mg Documented By: PETE Atropine Sulfate (Atropine Sulfate 0.1 Mg/Ml 10ml Syr) 0.5 mg IV NOW STA Stop: 03/20/23 13:23 Last Admin: 03/20/23 13:46 Dose: Not Given Documented By: NA Atropine Sulfate (Atropine Sulfate 0.1 Mg/Ml 5ml Syr) 0.5 mg IV NOW STA Stop: 03/20/23 13:23 Last Admin: 03/20/23 13:45 Dose: Not Given Documented By: NA Atropine Sulfate (Atropine So4 1 Mg/Ml 1ml Vial) 1 mg IV NOW STA Stop: 03/20/23 14:43 Last Admin: 03/20/23 14:52 Dose: 1 mg Documented By: NA Atropine Sulfate (Atropine So4 1 Mg/Ml 1ml Vial) 1 mg IV NOW STA Stop: 03/20/23 14:49 Last Admin: 03/20/23 15:53 Dose: Not Given Documented By: CPB Dexamethasone (Dexamethasone Sod Inj 4 Mg/Ml Vial) 6 mg IV NOW STA Stop: 03/20/23 14:41 Last Admin: 03/20/23 15:29 Dose: 6 mg Documented By: CPB Sodium Chloride (Nss) 500 mls @ 999 mls/hr IV .Q31M [facility] Stop: 03/20/23 13:15 Last Infusion: 03/20/23 13:52 Dose: Infused Documented By: Admin: 03/20/23 13:14 Dose: 999 mls/hr Documented By: ES Sodium Chloride (Nss) 1,000 mls @ 999 mls/hr IV .Q1H1M [facility] Stop: 03/20/23 13:45 Last Infusion: 03/20/23 14:04 Dose: Infused Documented By: Admin: 03/20/23 13:11 Dose: 999 mls/hr Documented By: ES Vancomycin HCl 1,000 mg/ (Sodium Chloride) 520 mls @ 200 mls/hr IV NOW STA Stop: 03/20/23 15:00 Last Infusion: 03/20/23 16:40 Dose: Infused Documented By: Admin: 03/20/23 13:11 Dose: 200 mls/hr Documented By: ES Piperacillin Sod/Tazobactam Sod (Zosyn) 4.5 gm in 100 mls @ 200 mls/hr IV NOW STA Stop: 03/20/23 13:00 Last Infusion: 03/20/23 13:52 Dose: Infused Documented By: Admin: 03/20/23 13:12 Dose: 200 mls/hr Documented By: ES Sodium Chloride (Nss) 1,000 mls @ 999 mls/hr IV .Q1H1M ONE Stop: 03/20/23 14:52 Last Infusion: 03/20/23 16:40 Dose: Infused Documented By: Admin: 03/20/23 14:31 Dose: 999 mls/hr Documented By: NA Lorazepam (Lorazepam 1 Mg/1 Ml Syr Ed Inj Use) Confirm Administered Dose 1 mg .ROUTE .STK-MED ONE Stop: 03/20/23 13:01 Last Admin: 03/20/23 13:03 Dose: 0.5 mg Documented By: ES ECG Rate (beats per minute): 49 Rhythm: sinus bradycardia Additional Comments: sinus jair 49bpm, prolonged qtc 540ms COVID-19 Results Results COVID-19 Adm Lab Results: RBC 2.71 M/uL (4.20-5.40) L 03/20/23 WBC 7.52 K/ul (4.8-10.8) 03/20/23 Hgb 8.0 g/dl (12.0-16.0) L 03/20/23 Hct 24.6 % (37.0-47.0) L 03/20/23 Plt Count 136 K/uL (130-400) 03/20/23 Neutrophils (%) (Auto) 86.9 % 03/20/23 Lymphocytes (%) (Auto) 8.2 % 03/20/23 Monocytes # (Auto) 0.27 K/uL (0.11-0.59) 03/20/23 Eosinophils # (Auto) 0.00 K/uL (0.00-0.50) 03/20/23 Immature Granulocyte % (Auto) 1.2 % 03/20/23 Neutrophils # (Auto) 6.53 K/uL (1.40-6.50) H 03/20/23 Lymphocytes # (Auto) 0.62 K/uL (1.20-3.40) L 03/20/23 Monocytes # (Auto) 0.27 K/uL (0.11-0.59) 03/20/23 Eosinophils # (Auto) 0.00 K/uL (0.00-0.50) 03/20/23 Basophils # (Auto) 0.01 K/uL (0.00-0.20) 03/20/23 Immature Granulocyte # (Auto) 0.09 K/uL (0.01-0.20) 4 Na 140 mmol/L (136-145) 03/20/23 K 3.1 mmol/L (3.5-5.1) L 03/20/23 Cl 110 mmol/L (98-107) H 03/20/23 CO2 24 mmol/L (21-32) 03/20/23 Anion Gap 6 (3-11) 03/20/23 BUN 21 mg/dl (6-23) 03/20/23 Creatinine 0.46 mg/dl (0.6-1.2) L 03/20/23 BUN/Creatinine Ratio 45.7 (10-20) H 03/20/23 Glucose Level 77 mg/dl (70-99(Fasting)) 03/20/23 Ca 5.9 mg/dl (8.6-10.3) L* 03/20/23 Total Bilirubin 1.3 mg/dl (0.2-1.0) H 03/20/23 Direct Bilirubin 0.3 mg/dl (0-0.2) H 03/20/23 AST/SGOT 23 U/L (13-39) 03/20/23 ALT/SGPT 13 U/L (7-52) 03/20/23 Alkaline Phosphatase 134 U/L (34-104) H 03/20/23 Total Protein 4.9 gm/dl (6.0-8.3) L 03/20/23 Albumin 2.2 gm/dl (3.4-5.0) L 03/20/23 Total CK 127 U/L (26-192) 03/20/23 Procalcitonin 0.09 ng/ml (0-0.5) 03/20/23 Fibrinogen Pending 03/20/23 PTT 62 Seconds (21-31) H 03/20/23 INR 1.4 (0.9-1.1) H 03/20/23 Adenovirus (PCR) Not Detected (NotDetected) 03/20/23 B. parapertussis DNA (PCR) Not Detected (NotDetected) 03/06 07/27 B. pertussis DNA (PCR) Not Detected (NotDetected) 03/20/23 C. pneumoniae DNA (PCR) Not Detected (NotDetected) 4 Coronavirus Type OC43 (PCR) Not Detected (NotDetected) Coronavirus Type HKU1 (PCR) Not Detected (NotDetected) Coronavirus Type 229E (PCR) Not Detected (NotDetected) COVID-19 PCR DETECTED (NotDetected) A* 03/20/23 Coronavirus Type NL63 (PCR) Not Detected (NotDetected) Human Metapneumovirus (PCR) Not Detected (NotDetected) Influenza Virus Type A (PCR) Not Detected (NotDetected) Influenza Virus Type B (PCR) Not Detected (NotDetected) M. pneumoniae (PCR) Not Detected (NotDetected) 03/20/23 Parainfluenza Type 1 (PCR) Not Detected (NotDetected) 03/06 07/27 Parainfluenza Type 2 (PCR) Not Detected (NotDetected) 03/06 07/27 Parainfluenza Type 3 (PCR) Not Detected (NotDetected) 03/06 07/27 Parainfluenza Type 4 (PCR) Not Detected (NotDetected) 03/06 07/27 RSV (PCR) Not Detected (NotDetected) 03/20/23 Enterovirus/Rhinovirus (PCR) Not Detected (NotDetected) Sample Site Art Line 03/20/23 POC pH 7.44 (7.35-7.45) 03/20/23 POC pCO2 32 mmHg (35-46) L 03/20/23 POC pO2 170 mmHg (80-95) H 03/20/23 POC HCO3 22 paradise/L (19-24) 03/20/23 POC Total CO2 23 mmol/L (24-31) L 03/20/23 POC Base Excess -2.0 paradise/L (-9-1.8) 03/20/23 ABG pH 7.26 (7.35-7.45) L 03/20/23 ABG pCO2 54 mmHg (35-46) H 03/20/23 ABG pO2 81 mmHg (80-95) 03/20/23 ABG HCO3 24 mmol/L (19-24) 03/20/23 ABG O2 Saturation 91.7 % (90-95) 03/20/23 ABG Base Excess -3.6 mEq/L (-9-1.8) 03/20/23 Ox Delivery Device Ventilator 03/20/23 POC O2 Rate 20 03/20/23 Minute Ventilation 8.3 03/20/23 Tidal Volume 400 03/20/23 PEEP 5 03/20/[address] 03/20/23 Chest X-Ray 03/20/23 Code Status & VTE Plan Code Status FULL CODE VTE Prophylaxis Plan VTE Prophylaxis will be ordered: Yes Supervising Physician Co-Signing Physician Notes discussed with Physician speech correction assistant about plan of care condition critical needing ICU care
[2023-03-20] MEDS ORDERED: fentaNYL citrate 2,500 MCG/250 ML BAG IV ONE (17:10)
--- OUTSIDE RECORDS SUMMARY | 2023-03-20 17:19 | External Medical Summary | Summary of Care ---
Author Name Unknown Organization [facility] Address [address] [place] [address] Phone [phone] Care Team Providers Care Advance Agent Name Role Phone Hayes Maurer DO Primary Care Provider Reason for Visit * Reason Onset Date Comments Advice 03/15/2023 Dr. Rodriguez Encounter Details Date Type Department Care Team (Late st Contact Info) Description 03/15/2023 Telephone Hematology/Oncology [facility] [place] [address] [place] [address] Héctor Rodriguez MD [address] [place] [address] Advice (Dr. Rodriguez) Allergies Active Allergy Reactions Criticality Noted Date Comments Morphine 03/26/1997 Shock, dyspnea Other reaction(s): shock, dspnea Neomycin 04/07/2013 documented as of this encounter (statuses as of 03/20/2023) Medications Medication Sig Dispensed Refills Start Date [...] as of this encounter (statuses as of 03/20/2023) Active Problems Problem Noted Date Diagnosed Date [...] as of this encounter (statuses as of 03/20/2023) Resolved Problems Problem Noted Date Diagnosed Date [...] as of this encounter (statuses as of 03/20/2023) Immunizations Name Administration Dates Next Due COVID-19 [...] encounter Miscellaneous Notes * Telephone Encounter - Ray Gonzalez MED ASSIST - 03/20/2023 9:35 AM EST Called and left message for Pt to call back so we can schedule her appt. * Telephone Encounter - Héctor Rodriguez MD - 03/20/2023 8:39 AM EST I think we should see her in the clinic in the next 2 to 3 weeks. * Telephone Encounter - Morris Travis RN - 03/17/2023 8:[address] Flori chang, patient currently at rehab after breaking her shoulder. Received last treatment of Carbo/Etop + Udenyca 02/22-02/24 * Telephone Encounter - Jessica Pruett OSA - 03/17/2023 7:58 AM EST We received a call from Michael. He wanted to let the office know that Kaci has been discharged from the hospital and is currently at [facility]. He is still unsure when she will be released from the rehab so he will call to re schedule her appointments with our office once he knows more. If you do need to speak with him in regards to any of this Michael can be reached at [phone]. Thank you! * Telephone Encounter - Pili Bucio RN - 03/16/2023 9:19 AM EST Left message for patients that appts this week were cancelled, asked that he call back whenpatient is discharged so that we can discuss with Dr Rodriguez and get her scheduled to see him. Advised he can call with any further questions. * Telephone Encounter - Morris Travis RN - 03/15/2023 2:40 PM EST Called patients back. No answer, LMOM with return #. * Telephone Encounter - Indira Mac OSA - 03/15/2023 8:17 AM EST Spouse Michael is calling, patient has been in the hospital since , she shattered her shoulder. He states she will be going to rehab\ but isnt sure when. He wasn't sure what to do about chemo Please advise. documented in this encounter Plan of Treatment Upcoming Encounters Date Type Department Care Team (Late st Contact Info) Description 05/18/2023 2:20 PM EDT Office Visit Nutrition & Weight Management, [facility] [address] [place] [address] Wili Leyva MD [address] [place] [address] Scheduled Procedures Name Priority Associated [...] D LEVEL ONCE IN A LIFETIME-USE SMARTSET# [id number] Completed 08/02/2011, 04/24/2009, 06/25/2008, Additional history exists [...] patient or by statute hierarchy) Care Teams Advance Agent Relationship Specialty Start Date End Date Hayes Maurer DO [address] [place] [address] PCP - General Family Medicine 04/04/19 documented as of this encounter
--- OUTSIDE RECORDS SUMMARY | 2023-03-20 17:19 | External Medical Summary | Summary of Care ---
Author Name Unknown Organization [facility] Address [address] [place] [address] Phone [phone] Care Team Providers Care Confectionery Laboratory Manager Name Role Phone Hayes Maurer DO Primary Care Provider Reason for Visit * Reason Onset Date Comments Advice 03/15/2023 Dr. Rodriguez Encounter Details Date Type Department Care Team (Late st Contact Info) Description 03/15/2023 Telephone Hematology/Oncology [facility] [place] [address] [place] [address] Héctor Rodriguez MD [address] [place] [address] Advice (Dr. Rodriguez) Allergies Active Allergy Reactions [...] encounter Miscellaneous Notes * Telephone Encounter - Héctor Rodriguez MD [...] from the hospital and is currently at [facility]. He is still unsure when she will be released from the rehab so he will call to re schedule her appointments with our office once he knows more. If you do need to speak with him in regards to any of this Michael can be reached at [phone]. Thank you! * Telephone Encounter - Pili [...] EDT Office Visit Nutrition & Weight Management, [facility] 132 [facility] [place] [address] Wili Leyva MD [address] [...] D LEVEL ONCE IN A LIFETIME-USE SMARTSET# [id number] Completed 08/02/2011, 04/24/2009, 06/25/2008, Additional history exists [...] patient or by statute hierarchy) Care Teams Confectionery Laboratory Manager Relationship Specialty Start Date End Date Hayes Maurer DO [address] [place] [address] PCP - General Family Medicine 04/04/19 documented as of this encounter
--- OUTSIDE RECORDS SUMMARY | 2023-03-20 17:19 | External Medical Summary | Summary of Care ---
Author Name Unknown Organization [facility] Address [address] [place] [address] Phone [phone] Care Team Providers Care Psychiatric Nurse Name Role Phone Hayes Maurer DO Primary Care Provider Reason for Visit * Reason Onset Date Comments Advice 03/15/2023 Dr. Rodriguez Encounter Details Date Type Department Care Team (Late st Contact Info) Description 03/15/2023 Telephone Hematology/Oncology [facility] [place] [address] [place] [address] Héctor Rodriguez MD [address] [place] [address] Advice (Dr. Rodriguez) Allergies Active Allergy Reactions Criticality Noted Date Comments Morphine 03/26/1997 Shock, dyspnea Other reaction(s): shock, dspnea Neomycin 04/07/2013 documented as of this encounter (statuses as of 03/17/2023) Medications Medication Sig Dispensed Refills Start Date [...] as of this encounter (statuses as of 03/17/2023) Active Problems Problem Noted Date Diagnosed Date [...] as of this encounter (statuses as of 03/17/2023) Resolved Problems Problem Noted Date Diagnosed Date [...] as of this encounter (statuses as of 03/17/2023) Immunizations Name Administration Dates Next Due COVID-19 [...] Miscellaneous Notes * Telephone Encounter - Morris Travis, ROMARIO - 03/17/2023 8:[address] Flori chang, patient currently at rehab after breaking her shoulder. Received last treatment of Carbo/Etop + Udenyca 02/22-02/24 * Telephone Encounter - Jessica Pruett, JADYN - 03/17/2023 7:58 AM EST We received a call from Michael. He wanted to let the office know that Kaci has been discharged from the hospital and is currently at [facility]. He is still unsure when she will be released from the rehab so he will call to re schedule her appointments with our office once he knows more. If you do need to speak with him in regards to any of this Michael can be reached at [phone]. Thank you! * Telephone Encounter - Pili [...] Office Visit Nutrition & Weight Management, [facility] 132 [facility] [place] [address] Wili Leyva MD [address] [facility] [place] [address] Scheduled Procedures Name Priority [...] D LEVEL ONCE IN A LIFETIME-USE SMARTSET# [id number] Completed 08/02/2011, 04/24/2009, 06/25/2008, Additional history exists [...] Healthcare Agent Relationshi p Communication Michael Cifuentes Pax Spouse Health Care Repr esentative (appointed verbally by patient or by statute hierarchy) Care Teams Psychiatric Nurse Relationship Specialty Start Date End Date Hayes Maurer DO [address] [place] [address] PCP - General Family Medicine 04/04/19 documented as of this encounter
--- OUTSIDE RECORDS SUMMARY | 2023-03-20 17:19 | External Medical Summary | Summary of Care ---
Author Name Unknown Organization [facility] Address [address] [place] [address] Phone [phone] Care Team Providers Care Land Use Planner Name Role Phone Hayes Maurer DO Primary Care Provider Reason for Visit * Reason Onset Date Comments Advice 03/15/2023 Dr. Rodriguez Encounter Details Date Type Department Care Team (Late st Contact Info) Description 03/15/2023 Telephone Hematology/Oncology [facility] [place] [address] [place] [address] Héctor Rodriguez MD [address] [place] [address] Advice (Dr. Rodriguez) Allergies Active Allergy Reactions [...] encounter Miscellaneous Notes * Telephone Encounter - Jessica Pruett OSA - 03/17/2023 7:58 AM EST We received a call from Michael. He wanted to let the office know that Kaci has been discharged from the hospital and is currently at [facility]. He is still unsure when she will be released from the rehab so he will call to re schedule her appointments with our office once he knows more. If you do need to speak with him in regards to any of this Michael can be reached at [phone]. Thank you! * Telephone Encounter - Pili [...] EDT Office Visit Nutrition & Weight Management, [facility] [address] [place] [address] Wili Leyva MD [address] [facility] [place] [address] Scheduled Procedures Name Priority Associated Diagnoses [...] D LEVEL ONCE IN A LIFETIME-USE SMARTSET# [id number] Completed 08/02/2011, 04/24/2009, 06/25/2008, Additional history exists [...] patient or by statute hierarchy) Care Teams Land Use Planner Relationship Specialty Start Date End Date Hayes Maurer DO [address] [place] [address] PCP - General Family Medicine 04/04/19 documented as of this encounter
--- OUTSIDE RECORDS SUMMARY | 2023-03-20 17:20 | External Medical Summary | Summary of Care ---
Author Name Unknown Organization [facility] Address [address] [place] [address] Phone [phone] Care Team Providers Care Power Line Lineman Name Role Phone Hayes Maurer DO Primary Care Provider Reason for Visit * Reason Onset Date Comments Order Request 02/22/2023 Encounter Details Date Type Department Care Team (Late st Contact Info) Description 02/22/2023 Telephone Family Practice [facility] [address] [place] [address] Hayes Maurer DO [address] [place] [address] Order Request Allergies Active Allergy Reactions Criticality Noted Date Comments Morphine 03/26/1997 Shock, dyspnea Other reaction(s): shock, dspnea Neomycin 04/07/2013 documented as of this encounter (statuses as of 03/01/2023) Medications Medication Sig Dispensed Refills Start Date [...] as of this encounter (statuses as of 03/01/2023) Active Problems Problem Noted Date Diagnosed Date [...] as of this encounter (statuses as of 03/01/2023) Resolved Problems Problem Noted Date Diagnosed Date [...] as of this encounter (statuses as of 03/01/2023) Immunizations Name Administration Dates Next Due COVID-19 [...] Telephone Encounter - India Wilks RN - 03/01/2023 8:38 AM EST faxed * Telephone Encounter - Zena Harper OSA - 02/22/2023 2:37 PM EST Kaci called from [facility]. Please fax over the Demographics page [phone] * Telephone Encounter - India Wilks RN - 02/22/2023 12:19 PM EST Printed and faxed order with last OV note to [facility] # [phone] * Telephone Encounter - Mirella Ulloa OSA [...] wish to have their order completed at? [facility] or wherever it's usually sent Fax Number, if applicable: Unknown Call Back Number: [phone]. Please let her know if insurance will cover it. She [facility]. If the caller is not a current [...] 03/07/2023 1:30 PM EST Office Visit Urology, [facility] [address] [facility] [place] [address] Sahil Funk MD [address] [place] [address] [place] [address] 03/07/2023 2:40 PM EST Office Visit [facility]ry [facility] [place] [address] Juliana Vogt DPM 132 [facility] [place] [address] 03/09/2023 4:40 PM EST Office Visit Family Practice [facility] [place] [address] Hayes Maurer DO [facility] [place] [address] 03/14/2023 1:00 PM EST Laboratory Laboratory [facility] [place] [address] [place] [id number] Helene, Lab Scen[address] 200 [facility] [place] [address] 03/14/2023 2:00 PM EST Hem/Onc Treatment Hematology/Oncology Treatment, [place] [address] [place] [address] Helene, Chair 5 Hem Onc [facility] [address] [place] [address] 03/15/2023 1:15 PM EST Office Visit Hematology/Oncology [facility] [place] [address] [place] [address] Héctor Rodriguez MD [address] [place] [address] 03/15/2023 1:45 PM EST Hem/Onc Treatment Hematology/Oncology Treatment, [place] [address] [place] [address] 03/16/2023 2:00 PM EST Hem/Onc Treatment Hematology/Oncology Treatment, [place] [address] [facility] [place] [address] 05/18/2023 2:20 PM EDT Office Visit Nutrition & Weight Management, [facility] 132 [facility] [place] [address] Wili Leyva MD [address] [facility] [place] [address] Scheduled Procedures Name Priority Associated [...] D LEVEL ONCE IN A LIFETIME-USE SMARTSET# [id number] Completed 08/02/2011, 04/24/2009, 06/25/2008, Additional history exists [...] Agents on File Name Relationship Healthcare Agent [facility] Michael Funk Spouse Health Care Repr esentative (appointed verbally by patient or by statute hierarchy) Care Teams Power Line Lineman Relationship Specialty Start Date End Date Hayes Maurer DO [address] [place] [address] PCP - General Family Medicine 04/04/19 documented as of this encounter
--- OUTSIDE RECORDS SUMMARY | 2023-03-20 17:20 | External Medical Summary | Summary of Care ---
Author Name Unknown Organization [facility] Address [address] [place] [address] Phone [phone] Care Team Providers Care Cloth Weaver Name Role Phone Hayes Maurer DO Primary Care Provider Reason for Visit * Reason Onset Date Comments Advice 03/15/2023 Encounter Details Date Type Department Care Team (Late st Contact Info) Description 03/15/2023 Telephone Hematology/Oncology [facility] [place] [address] [place] [address] Héctor Rodriguez MD [address] [place] [address] Advice Allergies Active Allergy Reactions Criticality Noted Date Comments Morphine 03/26/1997 Shock, dyspnea Other reaction(s): shock, dspnea Neomycin 04/07/2013 documented as of this encounter (statuses as of 03/15/2023) Medications Medication Sig Dispensed Refills Start Date [...] as of this encounter (statuses as of 03/15/2023) Active Problems Problem Noted Date Diagnosed Date [...] as of this encounter (statuses as of 03/15/2023) Resolved Problems Problem Noted Date Diagnosed Date [...] as of this encounter (statuses as of 03/15/2023) Immunizations Name Administration Dates Next Due COVID-19 mRNA, LNP-s, No Pre serve, 2-Dose Series ([employer]kia) 03/04/2021,07/22/2020,07/01/2020 Pneumococcal Conjugate Vacc, 13 Valent (Prevnar) [...] Office Visit Nutrition & Weight Management, [facility] 132 [facility] [place] [address] Wili Leyva MD [address] [place] [address] Scheduled Procedures Name Priority Associated [...] D LEVEL ONCE IN A LIFETIME-USE SMARTSET# [id number] Completed 08/02/2011, 04/24/2009, 06/25/2008, Additional history exists [...] patient or by statute hierarchy) Care Teams Cloth Weaver Relationship Specialty Start Date End Date Hayes Maurer DO [address] [place] [address] PCP - General Family Medicine 04/04/19 documented as of this encounter
--- OUTSIDE RECORDS SUMMARY | 2023-03-20 17:20 | External Medical Summary | Summary of Care ---
Author Name Unknown Organization [facility] Address [address] [place] [address] Phone [phone] Care Team Providers Care Senior Product Engineer Name Role Phone Hayes Maurer DO Primary Care Provider Reason for Visit * Reason Onset Date Comments Advice 03/15/2023 Encounter Details Date Type Department Care Team (Late st Contact Info) Description 03/15/2023 Telephone Hematology/Oncology [facility] [place] [address] [place] [address] Héctor Rodriguez MD [address] [place] [address] Advice Allergies Active Allergy Reactions Criticality Noted Date Comments Morphine 03/26/1997 Shock, dyspnea Other reaction(s): shock, dspnea Neomycin 04/07/2013 documented as of this encounter (statuses as of 03/16/2023) Medications Medication Sig Dispensed Refills Start Date [...] as of this encounter (statuses as of 03/16/2023) Active Problems Problem Noted Date Diagnosed Date [...] as of this encounter (statuses as of 03/16/2023) Resolved Problems Problem Noted Date Diagnosed Date [...] as of this encounter (statuses as of 03/16/2023) Immunizations Name Administration Dates Next Due COVID-19 mRNA, LNP-s, No Pre serve, 2-Dose Series ([employer]) 03/04/2021,07/22/2020,07/01/2020 Hepatitis B Vaccine 03/26/1997 Pneumococcal Conjugate [...] EDT Office Visit Nutrition & Weight Management, [facility] 132 [facility] [place] [address] Wili Leyva MD [address] [facility] [place] [address] Scheduled Procedures Name Priority [...] D LEVEL ONCE IN A LIFETIME-USE SMARTSET# [id number] Completed 08/02/2011, 04/24/2009, 06/25/2008, Additional history exists [...] patient or by statute hierarchy) Care Teams Senior Product Engineer Relationship Specialty Start Date End Date Hayes Maurer DO [address] [place] [address] PCP - General Family Medicine 04/04/19 documented as of this encounter
--- OUTSIDE RECORDS SUMMARY | 2023-03-20 17:20 | External Medical Summary | Summary of Care ---
Author Name Unknown Organization [facility] Address [address] [place] [address] Phone [phone] Care Team Providers Care Mold Clamper Name Role Phone Hayes Maurer DO Primary Care Provider Reason for Visit * Reason Onset Date Comments Advice 02/28/2023 FYI 02/28/2023 Encounter Details Date Type Department Care Team (Late st Contact Info) Description 02/28/2023 Telephone Family Practice [facility] [address] [place] [address] Hayes Maurer DO [address] [place] [address] Advice; Allergies Active Allergy Reactions Criticality Noted Date [...] mRNA, LNP-s, No Pre serve, 2-Dose Series ([employer]) 03/04/2021,07/22/2020,07/01/2020 Pneumococcal Conjugate Vacc, 13 Valent (Prevnar) [...] Encounter - India Wilks RN - 03/01/2023 1:24 PM EST [facility] Chart reviewed, patient remains admitted at this time. [facility] note states palliative consulted at this time. Note from todays CM in [facility]: Patient's confusion improved today and was able to confirm baseline information. She lives with Kulwinder william, in a 2 story home. She uses a cane as needed. States she is looking into a rollator but is frustrated that her insurance will not cover it because she has purchased ambulatory equipmentwithin the last 5 years. Explained that that is standard for all insurances. No home oxygen or active services. Patient plans to return home at discharge. PT/OT pending. Patient had a rehab stay at [facility] in October of this year. States she is not at all interested in rehab or home health services even if recommended. She repeatedly said, "I'm not going to be bothered with that" even after encouragement bya friend visiting at bedside. CM will continue to follow. * Telephone Encounter - Hayes Maurer DO - 03/01/2023 11:42 AM EST Can we reach out to and see how she's doing? * Telephone Encounter - Rekha Longoria OSA - 02/28/2023 7:21 AM EST calling, patient is in [facility] fractured right shoulder. Had 2 ICU doctors see her yesterday, states she is pretty bad. documented in this encounter Plan of Treatment Upcoming Encounters Date Type Department Care Team (Late st Contact Info) Description 03/07/2023 1:30 PM EST Office Visit Urology, [address] [place] [address] Sahil Funk MD [address] [place] [address] [place] [address] 03/07/2023 2:40 PM EST Office Visit Podiatry [facility] [address] [facility] [place] [address] Juliana Vogt DPM [address] [place] [address] 03/09/2023 4:40 PM EST Office Visit Family Practice [facility] [address] [facility] [place] [address] Hayes Maurer DO [address] [facility] [place] [address] 03/14/2023 1:00 PM EST Laboratory Laboratory [facility] 200 [facility] [place] [phone] [facility], Lab [address] [place], [place] [address] 03/14/2023 2:00 PM EST Hem/Onc Treatment Hematology/Oncology Treatment, [place] 200 [facility], [place] [address] Helene, Chair 5 Hem Onc [address] [place], [place] [address] 03/15/2023 1:15 PM EST Office Visit Hematology/Oncology [facility] 200 [facility] [place], [place] [address] Héctor Rodriguez MD 200 [facility] [place] [address] 03/15/2023 1:45 PM EST Hem/Onc Treatment Hematology/Oncology Treatment, [place] 200 [facility], [place] [address] 03/16/2023 2:00 PM EST Hem/Onc Treatment Hematology/Oncology Treatment, [place] [address] [place] [address] 05/18/2023 2:20 PM EDT Office Visit Nutrition & Weight Management, [facility] [place] [address] Wili Leyva MD [address] [employer] [facility] [place] [address] Scheduled Procedures Name Priority [...] D LEVEL ONCE IN A LIFETIME-USE SMARTSET# [id number] Completed 08/02/2011, 04/24/2009, 06/25/2008, Additional history exists [...] Healthcare Agent Relationshi p Communication Michael Cifuentes Loving Spouse Health Care Repr esentative (appointed verbally by patient or by statute hierarchy) Care Teams Mold Clamper Relationship Specialty Start Date End Date Hayes Maurer DO [address] [place] [address] PCP - General Family Medicine 04/04/19 documented as of this encounter
[2023-03-20] MEDS: PIPERACILLIN/TAZOBACTAM 4.5 GM in DEXTROSE 5% MINI-B 100 ML IV SCH (17:28)
[2023-03-20] MEDS ORDERED: PIPERACILLIN/TAZOBACTAM 4.5 GM in DEXTROSE 5% MINI-B 100 ML IV SCH (17:30)
--- NOTE | 2023-03-20 17:31 | Procedure Note ---
Procedure Note Date of Service March 20, 2023 Supervising Physician Co-Signing Physician Notes INTUBATION PROCEDURE NOTE: Dr. Tobias Walker A time-out was completed verifying correct patient, procedure, site, positioning. Patient was evaluated and required intubation for airway protection. Sedative agent used: 20 mg of time Paralysis agent used: None Emergent consent was implied given patients rapidly declining clinical status and need for airway protection. Number of attempts: 1 Grade view: Not applicable The patient was prepared in the appropriate fashion. Sedation was achieved utilizing 20 mg of etomidate. The patient was easily ventilated using [id number] to achieve adequate oxygenation. A 7.5 Indian endotracheal tube was placed under GlideScope guidance to 23 cm at the lip. The stylette was removed and balloon was inflated with 10mL of air. Appropriate Colorimetric change was appreciated. Bilateral breath sounds were heard without air sounds in the abdomen. Post Intubation Chest X-ray ordered. Patient tolerated the procedure well and there were no immediate complications. Coding CPT Codes Resuscitation - Resuscitation: 00591 Endotracheal Intubation, emergency ([id number]) [facility] [place] Procedure Codes (Charges) Resuscitation Resuscitation: 46003 Endotracheal Intubation, emergency
[2023-03-20] MEDS ORDERED: STAT IV/IM STA (17:33)
[2023-03-20] MEDS ORDERED: STAT IV Infusion **Titration per Protocol STA ×2 (17:33→20:16)
[2023-03-20] MEDS ORDERED: ETOMIDATE 2 MG/ML 20 ML VIAL IV ONE (17:33)
[2023-03-20] MEDS ORDERED: fentaNYL BOLUS from BAG IV PRN (17:33)
--- NOTE | 2023-03-20 17:33 | Procedure Note ---
Procedure Note Date of Service March 20, 2023 Note ARTERIAL LINE PROCEDURE NOTE: Procedure: Arterial Line Placement Indication: Monitoring on Pressors Anesthesia: Continuous fentanyl infusion Consent was signed and placed on the chart prior to procedure. Indication, risks, and benefits were explained at length. A time-out was completed verifying correct patient, procedure, site, positioning, and implant(s) or special equipment if applicable. Patients left wrist was prepped and draped in the usual sterile fashion. Ultrasound guidance was used to aid needle placement. A 20g Arrow arterial line was introduced into the radial artery. Catheter was threaded, and the needle was removed with appropriate blood return. Good waveform was observed. The patient tolerated the procedure well. Blood Loss: Minimal Complications: None Coding CPT Codes Tubes, Drains, and Vasc Access - Tubes, Drains, and Vasc Access: [id number] Ultrasound Guidance For Vascular ([id number]) Tubes, Drains, and Vasc Access - Tubes, Drains, and Vasc Access: [id number] Arterial Cath/Cannulation Sampling/Monitoring/Transfusion ([id number]) [facility] [place] Procedure Codes (Charges) Tubes, Drains, and Vasc Access Procedure 1: Tubes, Drains, and Vasc Access: [id number] Ultrasound Guidance For Vascular Procedure 2: Tubes, Drains, and Vasc Access: [id number] Arterial Cath/Cannulation Sampling/Monitoring/Transfusion
[2023-03-20] MEDS ORDERED: fentaNYL citrate 2,500 MCG/250 ML BAG IV SCH (17:45)
[2023-03-20 17:49] LABS: iSTAT Art Bld Gas pCO2 Correct 24 mmHg (35-46); iSTAT Art Bld Gas pH Corrected 7.536 (7.35-7.45); iSTAT Arterial Blood Gas HCO3 22 meg/L (19-24); iSTAT Arterial Blood Gas pCO2 32 mmHg (35-46); iSTAT Arterial Blood Gas pH 7.44 (7.35-7.45); iSTAT Arterial Blood Gas pO2 170 mmHg (80-95); iSTAT Arterial Blood Gas pO2 C 139; iSTAT Carbon Dioxide 23 mmol/L (24-31); iSTAT FiO2 60 %; iSTAT Hematocrit 23 % (37-47); iSTAT Hemoglobin 7.8 g/dl (12.0-16.0); iSTAT Potassium 3.4 mmol/L (3.3-5.0); iSTAT Site Art Line; iSTAT Sodium 138 mmol/L (135-144)
[2023-03-20] MEDS: CALCIUM GLUCONATE 10% 1,000 MG in SODIUM CHLOR 0.9% MINI-B 50 ML IV SCH ×2 (17:50→18:07)
[2023-03-20] MEDS: ICU Protocol for HYPERglycemia SCH ×2 (17:54→21:46)
[2023-03-20 18:16] LABS: BUN Creatinine Ratio 45.7 (10-20); Calcium 5.9 mg/dl (8.6-10.3); Creatinine Clr Calc Pharmacy 79.4 ml/min; Est GFR (African American) 114.4 ml/min; Est GFR (Non-African American) 98.7 ml/min; Potassium 3.1 mmol/L (3.5-5.1)
[2023-03-20] MEDS: ICU ELECTROLYTE REPLACEMENT PROTOCOL SCH (18:50)
--- NOTE | 2023-03-20 19:03 | XRay Report ---
XR chest 1V portable HISTORY: s/p intubation COMPARISON: Chest 03/20/2023. FINDINGS: Endotracheal tube terminates 3.2 cm from the drake. No pneumothorax. There is a small left pleural effusion. Patchy bibasilar densities which have progressed in the interval. The heart is nor mal in size. There are calcifications within the aortic knob. There is mild pulmonary vascular conges tion without overt edema. There is a right shoulder prosthesis. IMPRESSION: 1. The endotracheal tube terminates 3.2 cm from the drake. 2. Patchy bibasilar densities have slightly progressed. This could be due to an aspiration pneumonia. ACT 112: Negative or not required by law. Electronically signed by: Morris Lal M.D. 03/20/2023 7:02 PM
[2023-03-20] MEDS ORDERED: VANCOMYCIN HCL 1,250 MG in SODIUM CHLORIDE 0.9% 250 ML IV SCH (20:00)
--- NOTE | 2023-03-20 20:06 | Pharmacy Report ---
Pharmacy PK ABX Note - Date of Service March 20, 2023 - Assessment and Plan Assessment 73 year old F receiving Vanc/Zosyn for treatment of pulmonary infection. Pertinent microbiologic data includes: urine culture and BC x 2. Day # 1 of antimicrobial therapy. Plan Vancomycin * Loading dose: 1000mg IV x 1 * Maintenance dose: 1250mg IV every 18 hours * Regimen is predicted to achieve target AUC/JAROD of 400-600 mg/L.hr * Random level to be assessed 03/21/23 Pharmacy will continue to follow and will adjust dose/frequency as necessary. Thank you. Pharmacy has transitioned to AUC monitoring for vancomycin. AUC/JAROD is the preferred PK/PD target and is associated with decreased risk of nephrotoxicity compared to traditional trough targets.
[2023-03-20] MEDS: EPINEPHrine/NSS 4 MG/254 ML BAG IV SCH (20:23)
[2023-03-20 20:27] LABS: Acetaminophen < 3 ug/ml (10-30); Salicylate < 3.0 mg/dl (3.0-30)
[2023-03-20 20:46] LABS: Fibrinogen 327 mg/dl (184-400)
[2023-03-20] MEDS: POTASSIUM CHLORIDE / WTR 20 MEQ/100 ML PLCT IV SCH ×2 (21:06→22:56)
[2023-03-20] MEDS: ENOXAPARIN INJ 40 MG/0.4 ML SYR SQ SCH (21:09)
[2023-03-20] MEDS ORDERED: LACTATED RINGER'S 500 ML IV ONE (23:34)
[2023-03-21] MEDS: POTASSIUM CHLORIDE / WTR 20 MEQ/100 ML PLCT IV SCH ×2 (00:57→03:14)
[2023-03-21] MEDS: PIPERACILLIN/TAZOBACTAM 4.5 GM in DEXTROSE 5% MINI-B 100 ML IV SCH ×4 (01:42→23:35)
[2023-03-21] MEDS ORDERED: ACETAMINOPHEN 325 MG TAB PO PRN (02:18)
[2023-03-21 02:24] LABS: BUN Creatinine Ratio 33.8 (10-20); Calcium 6.7 mg/dl (8.6-10.3); Creatinine Clr Calc Pharmacy 53.7 ml/min; Est GFR (African American) 100.6 ml/min; Est GFR (Non-African American) 86.8 ml/min; Magnesium 1.8 mg/dl (1.7-2.4); Potassium 4.7 mmol/L (3.5-5.1)
[2023-03-21] MEDS ORDERED: DEXTROSE 50% 50 ML SYRINGE IV PRN (02:28)
[2023-03-21] MEDS ORDERED: CARBOHYDRATES FOR HYPOGLYCEMIA PO PRN (02:28)
[2023-03-21] MEDS ORDERED: GLUCOSE 10 TAB/TUBE PO PRN (02:28)
[2023-03-21] MEDS ORDERED: PHARMACY GLYCEMIC MGMT CONSULT PRN (02:28)
[2023-03-21] MEDS ORDERED: GLUCOSE 40% GEL 15 GM TUBE PO PRN (02:28)
[2023-03-21] MEDS ORDERED: GLUCAGON FOR INJ 1 MG VIAL SQ PRN (02:28)
[2023-03-21] MEDS: Standard Conc; 4mg in 250mL IV SCH ×2 (02:45→11:57)
[2023-03-21] MEDS ORDERED: LACTATED RINGER'S 500 ML IV ONE (02:49)
[2023-03-21] MEDS: MAGNESIUM SULFATE / D5W 1 GM/100 ML BAG IV SCH ×2 (03:06→04:50)
[2023-03-21] MEDS: INSULIN ASPART PER UNIT CHARGE SC SCH ×7 (03:08→23:55)
[2023-03-21 03:41] LABS: iSTAT Art Bld Gas pCO2 Correct 29 mmHg (35-46); iSTAT Art Bld Gas pH Corrected 7.421 (7.35-7.45); iSTAT Arterial Blood Gas HCO3 19 meg/L (19-24); iSTAT Arterial Blood Gas pCO2 28 mmHg (35-46); iSTAT Arterial Blood Gas pH 7.43 (7.35-7.45); iSTAT Arterial Blood Gas pO2 133 mmHg (80-95); iSTAT Arterial Blood Gas pO2 C 136; iSTAT Carbon Dioxide 20 mmol/L (24-31); iSTAT FiO2 40 %; iSTAT Hematocrit 20 % (37-47); iSTAT Hemoglobin 6.8 g/dl (12.0-16.0); iSTAT Potassium 5.2 mmol/L (3.3-5.0); iSTAT Site Art Line; iSTAT Sodium 134 mmol/L (135-144)
[2023-03-21] MEDS ORDERED: STAT IV/IM STA ×2 (03:45→09:40)
[2023-03-21] MEDS ORDERED: CALCIUM GLUCONATE 10% 1,000 MG in SODIUM CHLOR 0.9% MINI-B 50 ML IV ONE (04:00)
[2023-03-21 04:29] LABS: BUN Creatinine Ratio 28.9 (10-20); Calcium 6.5 mg/dl (8.6-10.3); Est GFR (African American) 81.1 ml/min; Phosphorus 5.7 mg/dl (2.5-4.9); Potassium 5.3 mmol/L (3.5-5.1)
[2023-03-21 04:31] LABS: Hemoglobin 7.7 g/dl (12.0-16.0); Mean Corpuscular Hemoglobin 29.7 pg (25.0-34.0); Mean Corpuscular Hgb Conc 32.1 g/dL (32.0-36.0); Mean Corpuscular Volume 92.7 fL (80.0-100.0); Mean Platelet Volume 9.8 fL (9.4-12.4); Platelet Count 301 K/uL (130-400); RDW Coefficient of Variation 17.9 % (11.5-14.5); Red Blood Count 2.59 M/uL (4.20-5.40); White Blood Count 9.38 K/ul (4.8-10.8)
[2023-03-21 06:06] LABS: Basophils # (auto) 0.01 K/uL (0.00-0.20); Basophils % (auto) 0.1 %; Immature Granulocytes # (auto) 0.11 K/uL (0.01-0.20); Immature Granulocytes % (auto) 1.2 %; Lymphocytes # (auto) 0.51 K/uL (1.20-3.40); Lymphocytes % (auto) 5.4 %; Monocytes # (auto) 0.03 K/uL (0.11-0.59); Monocytes % (auto) 0.3 %; Neutrophils # (auto) 8.72 K/uL (1.40-6.50)
[2023-03-21] MEDS: ICU ELECTROLYTE REPLACEMENT PROTOCOL SCH ×2 (06:17→18:49)
--- NOTE | 2023-03-21 06:20 | CT Scan Report ---
CT chest diagnostic wo con CLINICAL HISTORY: fall TECHNIQUE: Multidetector row helical CT of the chest was performed. Coronal and sagittal reformations were obtained. Automated dose lowering techniques and/or adjustment according to patient size were u tilized for this exam. Comparison: Comparison is made to CT chest 02/27/2023 FINDINGS: Lungs and pleura: Small bilateral pleural effusions are seen. Airspace opacities and bronchial wall t hickening are noted in the bilateral lower lungs. Heart and pericardium: Heart size is normal. No pericardial effusion. Vessels: Gas is noted in the right atrium and pulmonary trunk. Mediastinum and jeane: Subcentimeter lymph nodes are seen. Chest wall and lower neck: Subcentimeter axillary lymph nodes noted. Abdomen: For findings below the diaphragm, please refer to CT of the abdomen dated the same. Bones: Degenerative changes in the thoracic spine. IMPRESSION: 1. Bilateral pleural effusions and airspace opacities may represent atelectasis, pneumonia, and/or a spiration. 2. Prominent gas is in the portal vein and pulmonary trunk and right atrium. This may represent veno us injection. ACT 112: Negative or not required by law. Electronically signed by: Trent Woodruff M.D. 03/21/2023 6:18 AM
--- NOTE | 2023-03-21 06:20 | Electrocardiogram Report ---
Test Reason : Blood Pressure : / mmHG Vent. Rate : 049 BPM Atrial Rate : 049 BPM P-R Int : 216 ms QRS Dur : 092 ms QT Int : 598 ms P-R-T Axes : 085 081 065 degrees QTc Int : 540 ms Sinus bradycardia with sinus arrhythmia with 1st degree A-V block Low voltage QRS Cannot rule out Anterior infarct , age undetermined Prolonged QT Abnormal ECG When compared with ECG of 28-FEB-2023 14:30, Premature ventricular complexes are no longer Present QT has lengthened Confirmed by Guillermo Jackson ([id number]) on 03/21/2023 6:19:31 AM Referred By: Confirmed By:Guillermo Jackson
--- NOTE | 2023-03-21 06:22 | Ultrasound Report ---
US venous doppler LE BI CLINICAL HISTORY: Shock, rule out DVT TECHNIQUE: Bilateral lower extremity real-time compression venous ultrasound with Color Doppler imagi ng. Utilizing real-time ultrasonic imaging multiple real time high-resolution ultrasonic images with compression and noncompression maneuvers of the deep venous system in addition to color doppler imagi ng were performed from the common femoral vein through the proximal calf veins. COMPARISON: Comparison is made to lower extremity Doppler ultrasound 10/25/2022 FINDINGS/IMPRESSION: Exam is limited by patient motion. Left common femoral vein is not visualized due to bandaging from a rterial line. Currently there is normal compressibility of the deep venous system from the common fem oral vein through the proximal calf veins. No superficial venous thrombosis is identified. ACT 112: Negative or not required by law. Electronically signed by: Trent Woodruff M.D. 03/21/2023 6:20 AM
--- NOTE | 2023-03-21 06:26 | Ultrasound Report ---
US venous doppler UE RT CLINICAL HISTORY: Recent surgery, edema, rule out DVT PROCEDURE: Right upper extremity real-time compression venous ultrasound with Duplex and color Dopple r imaging. Comparison: Comparison is made to CT chest 03/20/2023 FINDINGS/IMPRESSION: No definite deep venous thrombus. Nonspecific thickening of the vein law throughout. Incidentally n oted are hypodensities in the supraclavicular/suprasternal regions may represent lymph nodes. These a re not well evaluated on prior CT due to noncontrast technique. ACT 112: Negative or not required by law. Electronically signed by: Trent Woodruff M.D. 03/21/2023 6:24 AM
[2023-03-21] MEDS: ICU Protocol for HYPERglycemia SCH (07:19)
[2023-03-21] MEDS: dexAMETHasone 6 MG in SYRINGE 0 ML IV SCH (08:19)
--- NOTE | 2023-03-21 08:24 | Critical Care Progress Note ---
Date of Service March 21, 2023 Assessment & Plan (1) Hypovolemic shock: (2) Shock circulatory: (3) Hypothermia: (4) Bradycardia: (5) Acute metabolic encephalopathy: (6) Aspiration pneumonia: (7) Small cell lung cancer in adult: Plan 73-year-old female with a history of metastatic small cell lung cancer, recent hospital discharge due to complicated UTI, weight loss and postsurgical hypothyroidism presenting to the ER with acute encephalopathy and profound hypotension, bradycardia and hypothermia. Neurologic: Patient with profound encephalopathy and myoclonic jerking activity. Will obtain EEG to evaluate for underlying seizure. CT head without acute neurological findings. Currently intubated for airway protection. She passed her spontaneous awakening trial and is currently on a sedation vacation. Pulmonary: Intubated 03/20/2023 due to inability to protect airway. She has evidence of aspiration pneumonia. Sputum cultures pending. Continue lung protective ventilation strategy. She is currently on a spontaneous breathing trial. Cardiovascular: Patient with circulatory shock at this time which is somewhat undifferentiated. Suspect an element of sepsis and hypovolemia. Bradycardia was likely due to underlying hypothermia. I suspect the overarching issue is failure to thrive in the context of advanced malignancy and declining performance status. TSH actually improved compared to prior TSH values. Currently on low-dose of norepinephrine and Levophed. Bradycardia is improving. Will obtain echocardiogram. Troponin on admission was negative. She had junctional rhythms last night when she was rewarming from hypothermia. Echo 09/26/2022 with an EF of 55 to 60%. Moderate tricuspid regurgitation. Mild pulmonary hypertension was present with pulmonary artery systolic pressure of 47. Suspect an element of chronic hypotension. Gastrointestinal: N.p.o. at this time. CT abdomen pelvis without acute findings. LFTs largely unremarkable except for mild elevation of alkaline phosphatase and total bilirubin. Repeat LFTs today and ammonia Renal: Urine output adequate at this time. Creatinine jumped up from 0.68-0.83. Replace electrolytes per protocol. She is profoundly hypocalcemic. Phosphorus mildly elevated 5.7. Potassium elevated to 5.3. Repeat BMP now. Infectious disease: Urine cultures and blood cultures pending. She grew Citrobacter on her last urine culture which was pansensitive. MRSA screen was negative. Discontinue vancomycin and continue Zosyn. Patient is COVID-19 positive. Her first positive in our system was 03/16/2023. Her CT scan is not consistent with COVID viral pneumonia. She may have an element of aspiration pneumonia. Dexamethasone at this time is reasonable which may also help with any relative adrenal insufficiency. Would hold on remdesivir at this time as unlikely to be of benefit and also known to cause bradycardia. Procalcitonin on admission was 0.09. Repeat procalcitonin today. Hematologic: Patient with anemia of chronic disease which appears stable. Endocrine: Patient with evidence of hypothyroidism based on TSH. Patient unable to take p.o. by tomorrow, will need to start IV levothyroxine. Patient on dexamethasone. Orthopedics: Patient with recent trochanteric fracture and humeral fracture. She underwent a right reverse total shoulder arthroplasty last admission. Lines and tubes: Left central line in the femoral vein placed 03/20/2023 by the ER. Temp sensing Delcid catheter in place. Left radial arterial line placed 03/20/2023. VTE prophylaxis: SCDs CODE STATUS: Patient was listed as full code on hospital discharge from 03/16/2023. indicates that he would want her to be a full code. Will consult palliative care given the patient's grave prognosis and overall poor performance status. Family at bedside: updated outside the room on 03/20/2023. He indicates that her wishes would be to be a full code. He recalls a palliative care discussion during her recent admission and would still prefer that she remain a full code at this time. Disposition: ICU I have personally spent 51 minutes of critical care time in the direct management of this patient. This is a life/limb threatening event. This includes time spent evaluating patient, direct bedside care, chart review, placing orders, interpretation of diagnostic studies, discussion with consultants, patient, and family members, as well as other required patient management activities. This time is exclusive of all separately billable procedures, and teaching time and separate from and in addition to any other critical care service time. Thank you for allowing us to participate in the care of this patient. Admission and Anticipated Discharge Date Admission Date: March 20, 2023 Subjective Patient seen and examined. She remains intubated and on low-dose fentanyl. She is also on epinephrine and norepinephrine drips. She minimally follows com mands. She frequently has myoclonic jerks. Sedation was stopped and she is currently on a spontaneous breathing trial. Her respirations remain very low and she is breathing anywhere from 6-8 times per minute. Tidal volumes appear adequate at approximately 1 L/breath. She had junctional rhythms overnight and the dopamine was discontinued in favor of epinephrine. Review of Systems Review of Systems: Unobtainable due to endotracheal tube and Unobtainable due to reduced consciousness Physical Exam Physical Exam: Constitutional: Patient appears elderly and frail. She is in severe distress. Eyes: Pupils are equal round and reactive to light. Conjunctivae are normal. Anicteric sclera. Ears nose, mouth and throat: Intubated and sedated. Neck: Trachea is midline. Visual inspection is normal. Respiratory: Mildly diminished at the bases. Rhonchi noted bilaterally. Cardiovascular: Regular rate and rhythm. No murmurs. No edema. Gastrointestinal: Normal bowel sounds, soft, nontender and nondistended. No hepatosplenomegaly noted. Musculoskeletal: No cyanosis. Patient is able to move all extremities. Strength is 5 out of 5 in the upper and lower extremities. Skin: No rashes, warm dry and intact. Neurologic: Frequent myoclonic jerks. Does follow commands intermittently such as squeezing fingers with bilateral hands. Psychiatric: Difficult to assess. Appears mildly anxious. Results & Data Results & Data Vital Signs (Past 12 Hours) Vital Signs Temp Pulse Resp BP Pulse Ox O2 Del Method FiO2 03/21/23 07:45 74 20 96 30 03/21/23 07:15 37.0 C 75 15 100 03/21/23 07:06 37.0 C 82 21 97/48 L 100 Mechanical Vent 40 03/21/23 07:00 Mechanical Vent 40 03/21/23 07:00 37.0 C 72 16 98 Mechanical Vent 40 03/21/23 07:00 37.0 C 03/21/23 07:00 40 03/21/23 06:45 37.0 C 75 16 98 Mechanical Vent 40 03/21/23 06:00 37.0 C 99 H 15 98 40 03/21/23 05:28 36.9 C 79 15 99 40 03/21/23 05:00 37.0 C 78 17 100 40 03/21/23 04:00 37.5 C 82 18 93 40 03/21/23 04:00 40 03/21/23 03:32 80 19 100 40 03/21/23 03:28 37.5 C 77 15 100 03/21/23 03:28 87/51 L 03/21/23 03:00 37.8 C H 84 15 100 40 03/21/23 02:28 89/51 L 03/21/23 02:28 38.0 C H 83 15 100 03/21/23 02:00 38.1 C H 80 15 100 40 03/21/23 01:28 37.8 C H 82 15 100 03/21/23 01:28 88/51 L 03/21/23 01:00 37.5 C 85 16 100 40 03/21/23 00:28 37.1 C 81 16 100 03/21/23 00:28 81/50 L 03/21/23 00:00 36.8 C 80 16 100 40 03/21/23 00:00 84 03/21/23 00:00 40 03/20/23 23:28 36.5 C 85 16 100 03/20/23 23:28 92/57 L 03/20/23 23:00 36.1 C L 82 16 100 40 03/20/23 22:35 76 16 100 40 03/20/23 22:28 35.7 C L 75 16 100 03/20/23 22:28 88/56 L 03/20/23 22:26 35.6 C L 74 16 100 03/20/23 22:26 96/55 L 03/20/23 22:00 35.2 C L 97 H 16 100 40 03/20/23 21:28 92/60 L 03/20/23 21:28 34.7 C L 80 16 100 03/20/23 21:00 34.2 C L 72 16 100 03/20/23 20:29 33.7 C L 59 L 16 100 03/20/23 20:29 97/60 L Coding Level of Care Code 20220 CRITICAL CARE 1ST 30-74M Diagnoses Hypovolemic shock R57.1 Shock circulatory R57.9 Hypothermia T68.XXXA Bradycardia R00.1 Acute metabolic encephalopathy G93.41 Aspiration pneumonia J69.0 Small cell lung cancer in adult C34.90
[2023-03-21] MEDS ORDERED: DEXAMETHASONE SOD INJ 4 MG/ML VIAL IV SCH (09:00)
[2023-03-21 09:03] LABS: Amphetamines+Metham, Urine Neg (Neg); Barbiturates, Urine Neg (Neg); Benzodiazepine, Urine Neg (Neg); Cocaine, Urine Neg (Neg); MDMA (Ecstacy), Urine Neg (Neg); Marijuana, Urine Neg (Neg); Methadone, Urine Neg (Neg); Opiate, Urine Neg (Neg); Phencyclidine, Urine Neg (Neg)
[2023-03-21 09:15] LABS: Albumin Level 2.1 gm/dl (3.4-5.0); BUN Creatinine Ratio 26.6 (10-20); Bilirubin Direct 0.2 mg/dl (0-0.2); Bilirubin,Total 0.7 mg/dl (0.2-1.0); Calcium 6.9 mg/dl (8.6-10.3); Creatinine Clr Calc Pharmacy 42.3 ml/min; Est GFR (African American) 69.8 ml/min; Est GFR (Non-African American) 60.2 ml/min; Potassium 5.2 mmol/L (3.5-5.1); Total Protein 4.9 gm/dl (6.0-8.3)
[2023-03-21] MEDS ORDERED: SODIUM CHLORIDE 0.9% 500 ML IV ONE (10:00)
[2023-03-21] MEDS ORDERED: LEVOTHYROXINE SODIUM 100 MCG TABLET PO ONE (10:00)
[2023-03-21] MEDS: CALCIUM GLUCONATE 10% 1,000 MG in SODIUM CHLOR 0.9% MINI-B 50 ML IV SCH ×2 (10:01→10:11)
[2023-03-21] MEDS: PANTOprazole 40 MG in SYRINGE DAILY IV SCH (10:13)
--- NOTE | 2023-03-21 11:02 | XRay Report ---
XR chest 1V portable HISTORY: 73 years-old Female OG tube placement acute respiratory failure COMPARISON: 03/20/2023 TECHNIQUE: AP view of the chest FINDINGS: Cardiomediastinal and hilar silhouettes are within normal limits. Endotracheal tube overlies the midl ine, 2 cm superior to the level of the drake. Enteric tube courses below the diaphragm with distal t ip outside the field of view. An indeterminate catheter projects over the left neck. No pneumothorax. Probable trace pleural effusions with mild bibasilar densities. Pulmonary vascular congestion. Verse d right shoulder arthroplasty. No acute fracture identified. IMPRESSION: 1. Endotracheal and enteric tube positioning as above. 2. Persistent bibasilar opacities with trace pleural effusions. ACT 112: Negative or not required by law. The above report was generated using voice recognition software. It may contain grammatical, syntax o r spelling errors. Electronically signed by: Patrick Jacobsen M.D. 03/21/2023 11:01 AM
--- NOTE | 2023-03-21 11:53 | Pharmacy Report ---
Pharmacy Glycemic Short Note 2 - Date of Service March 21, 2023 - Glycemic Short BSG Results (Last 24 hours): 03/20/23 03/20/23 03/20/23 12:06 12:31 15:35 Glucose 78 77 POC Glucose 74 POC Glucose (other) 03/20/23 03/20/23 03/20/23 17:25 21:05 23:58 Glucose 263 H POC Glucose 95 POC Glucose (other) 123 H 03/21/23 03/21/23 03/21/23 03:04 03:36 05:56 Glucose 253 H POC Glucose POC Glucose (other) 263 H 201 H 03/21/23 08:43 Glucose 152 H POC Glucose POC Glucose (other) OUTPATIENT ANTIDIABETIC REGIMEN: * N/A, no prior dx of DM * A1c 5.6% 09/26/22 ASSESSMENT: * Patient admitted to ICU for encephalopathy, hypotension, bradycardia, hypothermia, concern for pulm infxn * Patient is now intubated, sedated, receiving IV steroids as well as two pressors (epi, norepi). Stress induced hyperglycemia observed overnight. * Trickle tube feeds likely to begin today * Will continue Novolog SQ Q 4 hrs utilizing moderate-severe stress level dosing based upon weight. Will not provide basal insulin at this time. PLAN FOR INPATIENT GLYCEMIC CONTROL: * Basal insulin * None * Bolus insulin * NovoLog per scale Q 4 hrs * Goal Range: Low 120 mg/dL - High 150 mg/dL * Correction Factor: 40 mg/dL/unit * Nutritional / Prandial insulin per carb ratio of 1 unit per 15 grams CHO consumed
--- NOTE | 2023-03-21 12:00 | Communication Note ---
Date of Service: March 21, [address] Conde and I attempted to call pt's Kulwinder at the listed home number. There was no answer and we left a message on his answering machine requesting a call back. Thank you for allowing us to participate in the ongoing care of this patient. Please don't hesitate to call or page with any additional concerns. Dr. Nevin Brown DNP Director, Palliative Care
--- NOTE | 2023-03-21 12:10 | Palliative Care Consultation ---
Date of Consultation March 21, 2023 Assessment & Plan (1) Advanced care planning/counseling discussion: Pt is non-commutative, unable to make decisions. Attempted to call pts and left message to return call. Pt is currently full code and per report stated yesterday that he would want everything done. Discussion with pts oncologist, Dr. Rodriguez who noted she has SCLC s/p 3 cycles chemo and should have responded on latest CT but now without treatment is likely to progress. With current decline in PS, acute sepsis issues and deconditioning, she is not a candidate for chemo unless PS improves. He noted that no further treatment for cancer would be offered at this time due to pts functional status and given the overall critical nature of her illness, may be transitioning to an end of life process. Dr Rodriguez was in agreement for a transition to comfort care if no improvement in the next day or so with aggressive tx. (2) Palliative care by specialist: (3) Dyspnea: Intubated currently. Appears comfortable. unable to tolerate CPAP trial - developed apnea Dyspnea type: acute respiratory distress Qualified Code(s): R06.03 - Acute respiratory distress (4) Generalized weakness: Secondary to lung cancer and multiple recent admissions., +recurrent falls (5) Aspiration pneumonia: - currently on Zosyn, management per primary team Aspiration pneumonia type: unspecified Laterality: unspecified laterality Lung location: unspecified part of lung Qualified Code(s): J69.0 - Pneumonitis due to inhalation of food and vomit (6) Hypovolemic shock: - intubated and requiring vasopressor. Management per ICU Plan * Dr Conde and I called pt Don to attempt to have a GOC and ACP discussion. He does not have a cell phone. 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 He was not at home when we called. We left a message on the answering machine requesting a call back. * Oncology ([facility] / Dr. Rodriguez) is not offering more chemo at this time given dramatic decline in PS and overall debility * Pt was evaluated and seen by me together with Dr Conde, family med resident. * Prognosis overall is very poor. Thank you for allowing us to participate in the ongoing care of this patient. Please don't hesitate to call or page with any additional concerns. Dr. Nevin Brown DNP Director, Palliative Care History of Present Illness Requesting Physician: Dr. Walker Attending Physician: Nick Mg MD History of Present Illness Kaci Funk is well know to palliative med form prior admission. 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 Was recently admitted from 02/27/23 through 03/16/2023 for septic shock secondary to UTI, anemia requiring 2 units PRBC, right femur fracture and right humeral head fracture. This admission was complicated by worsening confusion and she did not have decisional capacity. was not easy to reach and does not have a cell phone. She was admitted the ICU and required vasopressors. She was dc to SNF 03/16/23 and still did not regain decisional capacity at the time of dc. Upon presentation to the ED she was found to be bradycardic, hypotensive, hypothermic, with acute encephalopathy. Was intubated and put on pressors. Also found to be COVID+. Currently being treated with antibiotics for concern of aspiration pneumonia. Pt seen at bedside this morning. Intubated in the ICU. Not currently on sedation. Able to open eyes, but otherwise not responsive to commands. Is having myoclonic jerks, which worsen when agitated/stimulated but otherwise appears comfortable. No meaningful HPI was able to be obtained from pt. There is no family present. Allergies Allergy/AdvReac Type Severity Reaction Status Date / Time adhesive tape Allergy Unknown Redness of Verified 10/24/22 16:26 Skin morphine Allergy Unknown shock, Verified 10/17/22 08:28 dspnea neomycin Allergy Unknown Unknown Verified 10/24/22 16:26 Home Medications Medication Instructions Recorded Confirmed Type levothyroxine 100 mcg tablet 100 mcg PO DAILY #30 tabs 10/20/22 03/20/23 Rx (Synthroid) potassium chloride 10 mEq 10 meq PO DAILY #30 caps 11/02/22 03/20/23 Rx capsule,extended release furosemide 20 mg tablet 20 mg PO BID 02/27/23 03/20/23 History L.acidop,casei,lactis,rham-B.lact,mariama 2 cap PO DAILY 30 days #60 caps 03/16/23 03/20/23 Rx 625 mg (10 billion cell) capsule (Advanced Probiotic) calcium carbonate 500 mg-vitamin 2.5 tab PO DAILY 14 days #35 tabs 03/16/23 03/20/23 Rx D3 15 mcg (600 unit) tablet (Os-Edin 500 + D3) dicyclomine 10 mg capsule 10 mg PO TID PRN Abdominal Pain 7 03/16/23 03/20/23 Rx days #15 caps magnesium oxide 400 mg (241.3 mg 400 mg PO BID 14 days #28 tabs 03/16/23 03/20/23 Rx magnesium) tablet nirmatrelvir 300 mg (150 mg See Rx Instructions PO .COMPLEX 03/16/23 03/20/23 Rx x2)-ritonavir 100 mg tablet,dose #30 ea pack (Paxlovid) pantoprazole 40 mg tablet,delayed 40 mg PO DAILY 30 days #30 tabs 03/16/23 03/20/23 Rx release vancomycin 125 mg capsule 125 mg PO QID 5 days #20 caps 03/16/23 03/20/23 Rx acetaminophen 325 mg tablet 650 mg PO UD PRN Fever Or Pain 03/20/23 03/20/23 History acetaminophen 500 mg tablet 1,000 mg PO Q8 PRN Fever Or Pain 03/20/23 03/20/23 History (Tylenol Extra Strength) enoxaparin 40 mg/0.4 mL 40 mg subcut QAM 03/20/23 03/20/23 History subcutaneous syringe (Lovenox) metoprolol succinate 25 mg 12.5 mg PO QAM 03/20/23 03/20/23 History tablet,extended release 24 hr umeclidinium 62.5 mcg-vilanterol 1 ea inhalation QAM 03/20/23 03/20/23 History 25 mcg/actuation powdr for inhalation (Anoro Ellipta) Patient History Medical History Aspiration pneumonia Hypothermia Hypovolemic shock On antineoplastic chemotherapy Recurrent falls Osteoporosis 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 The majority represents a small cell carcinoma. The minority represents a non-small cell carcinoma without any definitive adenocarcinoma or squamous cell carcinoma differentiation. Pulmonary hypertension Postsurgical hypothyroidism Reflux esophagitis PSVT (paroxysmal supraventricular tachycardia) COPD (chronic obstructive pulmonary disease) Vitamin D deficiency Surgical History Hx of lumbosacral spine surgery x3 Hx of thyroidectomy Hx of colonoscopy Family History Other Breast cancer Social History Smoking Status: Former smoker Tobacco Type: Cigarettes Cigarettes Per Day: 1 pack a week; Smoking End Date: 4 months ago; Second Hand Exposure: No; Do You Dip or Chew Tobacco: No; Tobacco Cessation Education Requested by Patient: No Hx Alcohol Use: No Hx Substance Use: No Preferred Language: [place] Communication Ability: Impaired Gis Instructor Required: No Beliefs That Will Affect Care: None Current Living Situation: Residential Current Living Situation Comment: [facility] Other Information That Helps Us Care for You: No Feels Safe at Home: Yes Safety Concerns: Feels Safe At This Time Assistive Devices: Cane Review of Systems Review of Systems: Pt is intubated, no meaningful ROS able to be obtained. Physical Exam Physical Exam: Constitutional: agitated when name is called or physically examined, will startle awake and try to move herself forward, cachetic and frail appearing HEENT: bitemp wasting, perrla, no conjunctival injection CV: regular rhythm, no murmur appreciated, extremities well-perfused, +1 pitting edema UE B/L Resp: diminished breath sounds, +rhonchi in bases, intubated GI: soft, scaphoid, nondistended, nontender, BS normoactive MSK: no gross deformities appreciated, +muscular deconditioning Skin: pale, warm, dry, + petechial rash LE B/L ; ecchymoses and bruising RUE Neuro: no focal neurologic deficit appreciated +myoclonic jerks unable to assess [facility], pt cannot answer questions, 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 reference 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 instruction 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/squeeze hands when asked Results & Data Vital Signs (Past 12 Hours) Vital Signs Temp Pulse Resp BP Pulse Ox O2 Del Method FiO2 03/21/23 11:29 36.5 C 84 16 95/61 L 95 Mechanical Vent 03/21/23 11:14 36.5 C 85 28 H 125/77 97 Mechanical Vent 03/21/23 10:59 36.5 C 69 16 100/57 L 95 Mechanical Vent 03/21/23 10:44 36.5 C 82 24 108/66 98 Mechanical Vent 03/21/23 10:29 36.6 C 86 16 124/63 98 Mechanical Vent 03/21/23 10:15 36.7 C 80 16 100 Mechanical Vent 03/21/23 10:15 88 24 95 03/21/23 10:14 36.7 C 85 25 H 114/62 100 Mechanical Vent 03/21/23 10:07 36.8 C 75 17 96/59 L 95 Mechanical Vent 03/21/23 10:00 36.7 C 87 17 132/70 97 Mechanical Vent 03/21/23 09:45 36.8 C 84 20 103/77 91 Mechanical Vent 03/21/23 09:44 36.9 C 80 23 79/45 L 95 Mechanical Vent 03/21/23 09:29 36.9 C 76 12 83/49 L 97 CPAP, Mechanical Vent 03/21/23 09:14 36.9 C 76 7 L 92/55 L 100 CPAP, Mechanical Vent 03/21/23 09:00 36.9 C 77 9 L 98 CPAP, Mechanical Vent 03/21/23 08:59 36.9 C 81 10 L 103/55 L 98 CPAP, Mechanical Vent 03/21/23 08:45 36.9 C 81 8 L 99 CPAP, Mechanical Vent 03/21/23 08:44 36.9 C 78 12 88/57 L 99 CPAP, Mechanical Vent 03/21/23 08:30 36.9 C 81 5 L 98 CPAP, Mechanical Vent 03/21/23 08:29 36.9 C 77 9 L 97/59 L 99 CPAP, Mechanical Vent 03/21/23 08:14 36.9 C 79 8 L 98/53 L 99 CPAP, Mechanical Vent 03/21/23 08:00 Mechanical Vent 03/21/23 07:59 36.9 C 100 H 13 90/74 L 96 Mechanical Vent 03/21/23 07:45 37.0 C 74 15 96 Mechanical Vent 03/21/23 07:45 74 20 96 03/21/23 07:30 36.9 C 72 16 99 Mechanical Vent 03/21/23 07:28 37.0 C 77 16 83/62 L 100 Mechanical Vent 40 03/21/23 07:15 37.0 C 75 15 100 03/21/23 07:06 37.0 C 82 21 97/48 L 100 Mechanical Vent 40 03/21/23 07:00 Mechanical Vent 40 03/21/23 07:00 37.0 C 72 16 98 Mechanical Vent 40 03/21/23 07:00 37.0 C 03/21/23 07:00 40 03/21/23 06:45 37.0 C 75 16 98 Mechanical Vent 40 03/21/23 06:00 37.0 C 99 H 15 98 40 03/21/23 05:28 36.9 C 79 15 99 40 03/21/23 05:00 37.0 C 78 17 100 40 03/21/23 04:00 37.5 C 82 18 93 40 03/21/23 04:00 40 03/21/23 03:32 80 19 100 40 03/21/23 03:28 37.5 C 77 15 100 03/21/23 03:28 87/51 L 03/21/23 03:00 37.8 C H 84 15 100 40 03/21/23 02:28 89/51 L 03/21/23 02:28 38.0 C H 83 15 100 03/21/23 02:00 38.1 C H 80 15 100 40 03/21/23 01:28 37.8 C H 82 15 100 03/21/23 01:28 88/51 L 03/21/23 01:00 37.5 C 85 16 100 40 03/21/23 00:28 37.1 C 81 16 100 03/21/23 00:28 81/50 L Laboratory Results data reviewed Diagnostic Findings data reviewed
--- NOTE | 2023-03-21 12:59 | Palliative Care Consultation ---
Date of Consultation March 21, 2023 Assessment & Plan (1) Altered mental status: (2) Generalized weakness: (3) Palliative care by specialist: (4) Cancer related pain: (5) Acute metabolic encephalopathy: (6) Advanced care planning/counseling discussion: Plan Date of Consultation March 21, 2023 Assessment & Plan (1) Advanced care planning/counseling discussion: Pt is non-commutative, unable to make decisions. Attempted to call pts and left message to return call. Pt is currently full code and per report stated yesterday that he would want everything done. Discussion with pts oncologist, Dr. Rodriguez who noted she has SCLC s/p 3 cycles chemo and should have responded on latest CT but now without treatment is likely to progress. With current decline in PS, acute sepsis issues and deconditioning, she is not a candidate for chemo unless PS improves. He noted that no further treatment for cancer would be offered at this time due to pts functional status and given the overall critical nature of her illness, may be transitioning to an end of life process. Dr Rodriguez was in agreement for a transition to comfort care if no improvement in the next day or so with aggressive tx. (2) Palliative care by specialist: (3) Dyspnea: Intubated currently. Appears comfortable. unable to tolerate CPAP trial - developed apnea Dyspnea type: acute respiratory distress Qualified Code(s): R06.03 - Acute respiratory distress (4) Generalized weakness: Secondary to lung cancer and multiple recent admissions., +recurrent falls (5) Aspiration pneumonia: - currently on Zosyn, management per primary team Aspiration pneumonia type: unspecified Laterality: unspecified laterality Lung location: unspecified part of lung Qualified Code(s): J69.0 - Pneumonitis due to inhalation of food and vomit (6) Hypovolemic shock: - intubated and requiring vasopressor. Management per ICU Plan * Dr Conde and I called pt Don to attempt to have a GOC and ACP discussion. He does not have a cell phone. 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 He was not at home when we called. We left a message on the answering machine requesting a call back. * Oncology ([facility] / Dr. Rodriguez) is not offering more chemo at this time given dramatic decline in PS and overall debility * Pt was evaluated and seen by me together with Dr Conde, family med resident. * Prognosis overall is very poor. Thank you for allowing us to participate in the ongoing care of this patient. Please don't hesitate to call or page with any additional concerns. Dr. Nevin Brown [facility] Director, Palliative Care History of Present Illness Requesting Physician: Dr. Walker Attending Physician: Nick Mg MD History of Present Illness Kaci Funk is well know to palliative med form prior admission. 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 Was re cently admitted from 02/27/23 through 03/16/2023 for septic shock secondary to UTI, anemia requiring 2 units PRBC, right femur fracture and right humeral head fracture. This admission was complicated by worsening confusion and she did not have decisional capacity. was not easy to reach and does not have a cell phone. She was admitted the ICU and required vasopressors. She was dc to SNF 03/16/23 and still did not regain decisional capacity at the time of dc. Upon presentation to the ED she was found to be bradycardic, hypotensive, hypothermic, with acute encephalopathy. Was intubated and put on pressors. Also found to be COVID+. Currently being treated with antibiotics for concern of aspiration pneumonia. Pt seen at bedside this morning. Intubated in the ICU. Not currently on tom tion. Able to open eyes, but otherwise not responsive to commands. Is having myoclonic jerks, which worsen when agitated/stimulated but otherwise appears comfortable. No meaningful HPI was able to be obtained from pt. There is no family present. Allergies Allergy/AdvReac Type Severity Reaction Status Date / Time adhesive tape Allergy Unknown Redness of Verified 10/24/22 16:26 Skin morphine Allergy Unknown shock, Verified 10/17/22 08:28 dspnea neomycin Allergy Unknown Unknown Verified 10/24/22 16:26 Home Medications Medication Instructions Recorded Confirmed Type levothyroxine 100 mcg tablet 100 mcg PO DAILY #30 tabs 10/20/22 03/20/23 Rx (Synthroid) potassium chloride 10 mEq 10 meq PO DAILY #30 caps 11/02/22 03/20/23 Rx capsule,extended release furosemide 20 mg tablet 20 mg PO BID 02/27/23 03/20/23 History L.acidop,casei,lactis,rham-B.lact,mariama 2 cap PO DAILY 30 days #60 caps 03/16/23 03/20/23 Rx 625 mg (10 billion cell) capsule (Advanced Probiotic) calcium carbonate 500 mg-vitamin 2.5 tab PO DAILY 14 days #35 tabs 03/16/23 03/20/23 Rx D3 15 mcg (600 unit) tablet (Os-Edin 500 + D3) dicyclomine 10 mg capsule 10 mg PO TID PRN Abdominal Pain 7 03/16/23 03/20/23 Rx days #15 caps magnesium oxide 400 mg (241.3 mg 400 mg PO BID 14 days #28 tabs 03/16/23 03/20/23 Rx magnesium) tablet nirmatrelvir 300 mg (150 mg See Rx Instructions PO .COMPLEX 03/16/23 03/20/23 Rx x2)-ritonavir 100 mg tablet,dose #30 ea pack (Paxlovid) pantoprazole 40 mg tablet,delayed 40 mg PO DAILY 30 days #30 tabs 03/16/23 03/20/23 Rx release vancomycin 125 mg capsule 125 mg PO QID 5 days #20 caps 03/16/23 03/20/23 Rx acetaminophen 325 mg tablet 650 mg PO UD PRN Fever Or Pain 03/20/23 03/20/23 History acetaminophen 500 mg tablet 1,000 mg PO Q8 PRN Fever Or Pain 03/20/23 03/20/23 History (Tylenol Extra Strength) enoxaparin 40 mg/0.4 mL 40 mg subcut QAM 03/20/23 03/20/23 History subcutaneous syringe (Lovenox) metoprolol succinate 25 mg 12.5 mg PO QAM 03/20/23 03/20/23 History tablet,extended release 24 hr umeclidinium 62.5 mcg-vilanterol 1 ea inhalation QAM 03/20/23 03/20/23 History 25 mcg/actuation powdr for inhalation (Anoro Ellipta) Patient History Medical History Aspiration pneumonia Hypothermia Hypovolemic shock On antineoplastic chemotherapy Recurrent falls Osteoporosis 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 The majority represents a small cell carcinoma. The minority represents a non-small cell carcinoma without any definitive adenocarcinoma or squamous cell carcinoma differentiation.Pulmonary hypertension Postsurgical hypothyroidism Reflux esophagitis PSVT (paroxysmal supraventricular tachycardia) COPD (chronic obstructive pulmonary disease) Vitamin D deficiency Surgical History Hx of lumbosacral spine surgery x3Hx of thyroidectomy Hx of colonoscopy Family History Other Breast cancer Social History Smoking Status: Former smoker Tobacco Type: Cigarettes Cigarettes Per Day: 1 pack a week; Smoking End Date: 4 months ago; Second Hand Exposure: No; Do You Dip or Chew Tobacco: No; Tobacco Cessation Education Requested by Patient: No Hx Alcohol Use: No Hx Substance Use: No Preferred Language: Israeli Communication Ability: Impaired Porcelain Finisher Required: No Beliefs That Will Affect Care: None Current Living Situation: Intermediate Current Living Situation Comment: [facility] Other Information That Helps Us Care for You: No Feels Safe at Home: Yes Safety Concerns: Feels Safe At This Time Assistive Devices: Cane Review of Systems Review of Systems: Pt is intubated, no meaningful ROS able to be obtained. Physical Exam Physical Exam: Constitutional: agitated when name is called or physically examined, will startl e awake and try to move herself forward, cachetic and frail appearing HEENT: bitemp wasting, perrla, no conjunctival injection CV: regular rhythm, no murmur appreciated, extremities well-perfused, +1 pitting edema UE B/L Resp: diminished breath sounds, +rhonchi in bases, intubated GI: soft, scaphoid, nondistended, nontender, BS normoactive MSK: no gross deformities appreciated, +muscular deconditioning Skin: pale, warm, dry, + petechial rash LE B/L ; ecchymoses and bruising RUE Neuro: no focal neurologic deficit appreciated +myoclonic jerksunable to assess [facility], pt cannot answer questions, 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 when asked Results & Data Vital Signs (Past 12 Hours) Vital Signs Temp Pulse Resp BP Pulse Ox O2 Del Method FiO2 03/21/23 11:29 36.5 C 84 16 95/61 L 95 Mechanical Vent 03/21/23 11:14 36.5 C 85 28 H 125/77 97 Mechanical Vent 03/21/23 10:59 36.5 C 69 16 100/57 L 95 Mechanical Vent 03/21/23 10:44 36.5 C 82 24 108/66 98 Mechanical Vent 30 03/21/23 10:29 36.6 C 86 16 124/63 98 Mechanical Vent 30 03/21/23 10:15 36.7 C 80 16 100 Mechanical Vent 30 03/21/23 10:15 88 24 95 03/21/23 10:14 36.7 C 85 25 H 114/62 100 Mechanical Vent 30 03/21/23 10:07 36.8 C 75 17 96/59 L 95 Mechanical Vent 03/21/23 10:00 36.7 C 87 17 132/70 97 Mechanical Vent 03/21/23 09:45 36.8 C 84 20 103/77 91 Mechanical Vent 03/21/23 09:44 36.9 C 80 23 79/45 L 95 Mechanical Vent 03/21/23 09:29 36.9 C 76 12 83/49 L 97 CPAP, Mechanical Vent 03/21/23 09:14 36.9 C 76 7 L 92/55 L 100 CPAP, Mechanical Vent 03/21/23 09:00 36.9 C 77 9 L 98 CPAP, Mechanical Vent 03/21/23 08:59 36.9 C 81 10 L 103/55 L 98 CPAP, Mechanical Vent 03/21/23 08:45 36.9 C 81 8 L 99 CPAP, Mechanical Vent 03/21/23 08:44 36.9 C 78 12 88/57 L 99 CPAP, Mechanical Vent 03/21/23 08:30 36.9 C 81 5 L 98 CPAP, Mechanical Vent 03/21/23 08:29 36.9 C 77 9 L 97/59 L 99 CPAP, Mechanical Vent 30 03/21/23 08:14 36.9 C 79 8 L 98/53 L 99 CPAP, Mechanical Vent 03/21/23 08:00 Mechanical Vent 03/21/23 07:59 36.9 C 100 H 13 90/74 L 96 Mechanical Vent 30 03/21/23 07:45 37.0 C 74 15 96 Mechanical Vent 30 03/21/23 07:45 74 20 96 30 03/21/23 07:30 36.9 C 72 16 99 Mechanical Vent 40 03/21/23 07:28 37.0 C 77 16 83/62 L 100 Mechanical Vent 40 03/21/23 07:15 37.0 C 75 15 100 03/21/23 07:06 37.0 C 82 21 97/48 L 100 Mechanical Vent 40 03/21/23 07:00 Mechanical Vent 40 03/21/23 07:00 37.0 C 72 16 98 Mechanical Vent 40 03/21/23 07:00 37.0 C 03/21/23 07:00 40 03/21/23 06:45 37.0 C 75 16 98 Mechanical Vent 40 03/21/23 06:00 37.0 C 99 H 15 98 40 03/21/23 05:28 36.9 C 79 15 99 40 03/21/23 05:00 37.0 C 78 17 100 40 03/21/23 04:00 37.5 C 82 18 93 40 03/21/23 04:00 40 03/21/23 03:32 80 19 100 40 03/21/23 03:28 37.5 C 77 15 100 03/21/23 03:28 87/51 L 03/21/23 03:00 37.8 C H 84 15 100 40 03/21/23 02:28 89/51 L 03/21/23 02:28 38.0 C H 83 15 100 03/21/23 02:00 38.1 C H 80 15 100 40 03/21/23 01:28 37.8 C H 82 15 100 03/21/23 01:28 88/51 L 03/21/23 01:00 37.5 C 85 16 100 40 03/21/23 00:28 37.1 C 81 16 100 03/21/23 00:28 81/50 L Laboratory Results data reviewed Diagnostic Findings data reviewed History of Present Illness Attending Physician: Nick Mg MD History of Present Illness Kaci is known to pall med from prior admission Allergies Allergy/AdvReac Type Severity Reaction Status Date / Time adhesive tape Allergy Unknown Redness of Verified 10/24/22 16:26 Skin morphine Allergy Unknown shock, Verified 10/17/22 08:28 dspnea neomycin Allergy Unknown Unknown Verified 10/24/22 16:26 Home Medications Medication Instructions Recorded Confirmed Type levothyroxine 100 mcg tablet 100 mcg PO DAILY #30 tabs 10/20/22 03/20/23 Rx (Synthroid) potassium chloride 10 mEq 10 meq PO DAILY #30 caps 11/02/22 03/20/23 Rx capsule,extended release furosemide 20 mg tablet 20 mg PO BID 02/27/23 03/20/23 History L.acidop,casei,lactis,rham-B.lact,mariama 2 cap PO DAILY 30 days #60 caps 03/16/23 03/20/23 Rx 625 mg (10 billion cell) capsule (Advanced Probiotic) calcium carbonate 500 mg-vitamin 2.5 tab PO DAILY 14 days #35 tabs 03/16/23 03/20/23 Rx D3 15 mcg (600 unit) tablet (Os-Edin 500 + D3) dicyclomine 10 mg capsule 10 mg PO TID PRN Abdominal Pain 7 03/16/23 03/20/23 Rx days #15 caps magnesium oxide 400 mg (241.3 mg 400 mg PO BID 14 days #28 tabs 03/16/23 03/20/23 Rx magnesium) tablet nirmatrelvir 300 mg (150 mg See Rx Instructions PO .COMPLEX 03/16/23 03/20/23 Rx x2)-ritonavir 100 mg tablet,dose #30 ea pack (Paxlovid) pantoprazole 40 mg tablet,delayed 40 mg PO DAILY 30 days #30 tabs 03/16/23 03/20/23 Rx release vancomycin 125 mg capsule 125 mg PO QID 5 days #20 caps 03/16/23 03/20/23 Rx acetaminophen 325 mg tablet 650 mg PO UD PRN Fever Or Pain 03/20/23 03/20/23 History acetaminophen 500 mg tablet 1,000 mg PO Q8 PRN Fever Or Pain 03/20/23 03/20/23 History (Tylenol Extra Strength) enoxaparin 40 mg/0.4 mL 40 mg subcut QAM 03/20/23 03/20/23 History subcutaneous syringe (Lovenox) metoprolol succinate 25 mg 12.5 mg PO QAM 03/20/23 03/20/23 History tablet,extended release 24 hr umeclidinium 62.5 mcg-vilanterol 1 ea inhalation QAM 03/20/23 03/20/23 History 25 mcg/actuation powdr for inhalation (Anoro Ellipta) Patient History Medical History Aspiration pneumonia Hypothermia Hypovolemic shock On antineoplastic chemotherapy Recurrent falls Osteoporosis 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 The majority represents a small cell carcinoma. The minority represents a non-small cell carcinoma without any definitive adenocarcinoma or squamous cell carcinoma differentiation. Pulmonary hypertension Postsurgical hypothyroidism Reflux esophagitis PSVT (paroxysmal supraventricular tachycardia) COPD (chronic obstructive pulmonary disease) Vitamin D deficiency Surgical History Hx of lumbosacral spine surgery x3 Hx of thyroidectomy Hx of colonoscopy Family History Other Breast cancer Social History Smoking Status: Former smoker Tobacco Type: Cigarettes Cigarettes Per Day: 1 pack a week; Smoking End Date: 4 months ago; Second Hand Exposure: No; Do You Dip or Chew Tobacco: No; Tobacco Cessation Education Requested by Patient: No Hx Alcohol Use: No Hx Substance Use: No Preferred Language: Israeli Communication Ability: Impaired Porcelain Finisher Required: No Beliefs That Will Affect Care: None Current Living Situation: Intermediate Current Living Situation Comment: [facility] Other Information That Helps Us Care for You: No Feels Safe at Home: Yes Safety Concerns: Feels Safe At This Time Assistive Devices: Cane Results & Data Vital Signs (Past 12 Hours) Vital Signs Temp Pulse Resp BP Pulse Ox O2 Del Method FiO2 03/21/23 12:29 36.0 C L 79 16 100/54 L 97 Mechanical Vent 03/21/23 12:16 36.1 C L 73 16 100/59 L 96 Mechanical Vent 03/21/23 12:00 30 03/21/23 11:59 36.2 C L 73 17 103/71 97 03/21/23 11:55 36.2 C L 88 17 100/61 97 Mechanical Vent 03/21/23 11:44 36.0 C L 82 17 132/108 H 98 Mechanical Vent 03/21/23 11:29 36.5 C 84 16 95/61 L 95 Mechanical Vent 03/21/23 11:14 36.5 C 85 28 H 125/77 97 Mechanical Vent 03/21/23 10:59 36.5 C 69 16 100/57 L 95 Mechanical Vent 03/21/23 10:44 36.5 C 82 24 108/66 98 Mechanical Vent 03/21/23 10:29 36.6 C 86 16 124/63 98 Mechanical Vent 03/21/23 10:15 36.7 C 80 16 100 Mechanical Vent 03/21/23 10:15 88 24 95 03/21/23 10:14 36.7 C 85 25 H 114/62 100 Mechanical Vent 03/21/23 10:07 36.8 C 75 17 96/59 L 95 Mechanical Vent 03/21/23 10:00 36.7 C 87 17 132/70 97 Mechanical Vent 03/21/23 09:45 36.8 C 84 20 103/77 91 Mechanical Vent 03/21/23 09:44 36.9 C 80 23 79/45 L 95 Mechanical Vent 03/21/23 09:29 36.9 C 76 12 83/49 L 97 CPAP, Mechanical Vent 03/21/23 09:14 36.9 C 76 7 L 92/55 L 100 CPAP, Mechanical Vent 03/21/23 09:00 36.9 C 77 9 L 98 CPAP, Mechanical Vent 03/21/23 08:59 36.9 C 81 10 L 103/55 L 98 CPAP, Mechanical Vent 03/21/23 08:45 36.9 C 81 8 L 99 CPAP, Mechanical Vent 03/21/23 08:44 36.9 C 78 12 88/57 L 99 CPAP, Mechanical Vent 03/21/23 08:30 36.9 C 81 5 L 98 CPAP, Mechanical Vent 03/21/23 08:29 36.9 C 77 9 L 97/59 L 99 CPAP, Mechanical Vent 03/21/23 08:14 36.9 C 79 8 L 98/53 L 99 CPAP, Mechanical Vent 03/21/23 08:00 Mechanical Vent 03/21/23 07:59 36.9 C 100 H 13 90/74 L 96 Mechanical Vent 30 03/21/23 07:45 37.0 C 74 15 96 Mechanical Vent 30 03/21/23 07:45 74 20 96 30 03/21/23 07:30 36.9 C 72 16 99 Mechanical Vent 40 03/21/23 07:28 37.0 C 77 16 83/62 L 100 Mechanical Vent 40 03/21/23 07:15 37.0 C 75 15 100 03/21/23 07:06 37.0 C 82 21 97/48 L 100 Mechanical Vent 40 03/21/23 07:00 Mechanical Vent 40 03/21/23 07:00 37.0 C 72 16 98 Mechanical Vent 40 03/21/23 07:00 37.0 C 03/21/23 07:00 40 03/21/23 06:45 37.0 C 75 16 98 Mechanical Vent 40 03/21/23 06:00 37.0 C 99 H 15 98 40 03/21/23 05:28 36.9 C 79 15 99 40 03/21/23 05:00 37.0 C 78 17 100 40 03/21/23 04:00 37.5 C 82 18 93 40 03/21/23 04:00 40 03/21/23 03:32 80 19 100 40 03/21/23 03:28 37.5 C 77 15 100 03/21/23 03:28 87/51 L 03/21/23 03:00 37.8 C H 84 15 100 40 03/21/23 02:28 89/51 L 03/21/23 02:28 38.0 C H 83 15 100 03/21/23 02:00 38.1 C H 80 15 100 40 03/21/23 01:28 37.8 C H 82 15 100 03/21/23 01:28 88/51 L 03/21/23 01:00 37.5 C 85 16 100 40 PG Care Time/CCT Total # of Minutes Spent Total Time Spent: 75 Total Time Spent with Patient: Total time spent is greater than 50% in coordination of care (as documented) at patient's floor/unit and/or counseling patient: [place] [address] IN/OBS CONSULT LVL 5,80M Patient Type New History Comprehensive Exam Comprehensive Medical Decision Making High Complexity Diagnoses Altered mental status R41.82 Generalized weakness R53.1 Palliative care by specialist Z51.5 Cancer related pain G89.3 Acute metabolic encephalopathy G93.41 Advanced care planning/counseling discussion Z71.89
--- NOTE | 2023-03-21 14:33 | Hospitalist Progress Note ---
Date of Service March 21, 2023 Assessment & Plan (1) Aspiration pneumonia: (2) Hypovolemic shock: (3) Hypothermia: (4) Bradycardia: (5) Acute metabolic encephalopathy: (6) Small cell lung cancer in adult: Plan Per admitting service notes with addendum: This is a critically ill 73-year-old female who has a significant past medical history of small cell lung cancer with non-small cell cancer involving the right supraclavicular node, COPD, osteoporosis, hypothyroidism who presents to ED from [facility] secondary to frequent falls and confusion and combative behavior. Circulatory shock Aspiration pneumonia Hypothermia Bradycardia Acute metabolic encephalopathy Admitted to intensive care unit Emergency Department Technician Dr. Walker consulted - discussed with excel expert regarding pt and pt to be placed on dopamine gtt continue nor epi and dopamine continue IV Vanco/Zosyn for aspiration pneumonitis Fluids per ICU --CT head: w/o acute neurologic finding Defer to excel expert regarding airway, possible need for intubation if pt further deteriorates may need MRI, EEG if continues, also consider lumbar puncture per ICU blood and urine culture pending previous urine culture citrobacter which was pansensitive NPO Remains intubated, sedated Remains on Levophed Follow-up cultures Continue IV Zosyn day #2 Continue IV dexamethasone 6 mg Ventilator management per excel expert COVID-19 Positive tested positive upon discharge on 03/16 will continue with IV dexamethasone per ICU which may help with adrenal insufficiency CXR no evidence of viral pneumonia Acute on chronic anemia Baseline hemoglobin around 9 Required 2 units PRBC during most recent hospitalization, blood loss felt likely secondary to acute fracture Hemoglobin stable at 8 although patient likely volume depleted Follow repeat labs Recent right humerus fracture, age-related osteoporosis with current pathologic fracture status post right reverse TSA on 03/05/2023 -NWB Recent fracture of greater trochanter of right femur, again age-related osteoporosis with current pathologic fracture - WBAT Small Cell Lung Ca On carboplatin and etoposide supplied as well as pegfilgrastim Last treatment was prior to recent hospitalization in February Post surgical hypothyroidism TSH mildly elevated, T4 normal FULL CODE: Admission and Anticipated Discharge Date Admission Date: March 20, 2023 Subjective Follow-up for septic shock, etc. Patient remains intubated, sedated Unsuccessful ventilator weaning trial today Remains on Levophed Seen at the bedside No signs of distress, pain No other issues per hybrid corn breeder of Systems Review of Systems: all noted and negative except for above Physical Exam Physical Exam: General-sedated, intubated not in distress Eyes- anicteric Neck- no JVD Lungs-mild rhonchi at the bases Heart- normal rate, regular rhythm; no murmurs Abdomen- normal bowel sounds, nondistended, soft, nontender Extremities- no pretibial edema, no calf tenderness Neuro-sedated Skin- warm & dry Results & Data Results & Data Vital Signs (Past 12 Hours) Vital Signs Temp Pulse Resp BP Pulse Ox O2 Del Method FiO2 03/21/23 12:59 36.3 C L 73 16 99/56 L 96 Mechanical Vent 30 03/21/23 12:50 36.3 C L 72 16 98/66 L 96 Mechanical Vent 30 03/21/23 12:44 36.0 C L 73 16 105/63 96 Mechanical Vent 30 03/21/23 12:29 36.0 C L 79 16 100/54 L 97 Mechanical Vent 30 03/21/23 12:16 36.1 C L 73 16 100/59 L 96 Mechanical Vent 03/21/23 12:00 30 03/21/23 11:59 36.2 C L 73 17 103/71 97 03/21/23 11:55 36.2 C L 88 17 100/61 97 Mechanical Vent 03/21/23 11:44 36.0 C L 82 17 132/108 H 98 Mechanical Vent 03/21/23 11:29 36.5 C 84 16 95/61 L 95 Mechanical Vent 03/21/23 11:14 36.5 C 85 28 H 125/77 97 Mechanical Vent 03/21/23 10:59 36.5 C 69 16 100/57 L 95 Mechanical Vent 03/21/23 10:44 36.5 C 82 24 108/66 98 Mechanical Vent 30 03/21/23 10:29 36.6 C 86 16 124/63 98 Mechanical Vent 03/21/23 10:15 36.7 C 80 16 100 Mechanical Vent 30 03/21/23 10:15 88 24 95 03/21/23 10:14 36.7 C 85 25 H 114/62 100 Mechanical Vent 30 03/21/23 10:07 36.8 C 75 17 96/59 L 95 Mechanical Vent 03/21/23 10:00 36.7 C 87 17 132/70 97 Mechanical Vent 30 03/21/23 09:45 36.8 C 84 20 103/77 91 Mechanical Vent 30 03/21/23 09:44 36.9 C 80 23 79/45 L 95 Mechanical Vent 30 03/21/23 09:29 36.9 C 76 12 83/49 L 97 CPAP, Mechanical Vent 30 03/21/23 09:14 36.9 C 76 7 L 92/55 L 100 CPAP, Mechanical Vent 30 03/21/23 09:00 36.9 C 77 9 L 98 CPAP, Mechanical Vent 30 03/21/23 08:59 36.9 C 81 10 L 103/55 L 98 CPAP, Mechanical Vent 30 03/21/23 08:45 36.9 C 81 8 L 99 CPAP, Mechanical Vent 30 03/21/23 08:44 36.9 C 78 12 88/57 L 99 CPAP, Mechanical Vent 30 03/21/23 08:30 36.9 C 81 5 L 98 CPAP, Mechanical Vent 30 03/21/23 08:29 36.9 C 77 9 L 97/59 L 99 CPAP, Mechanical Vent 30 03/21/23 08:14 36.9 C 79 8 L 98/53 L 99 CPAP, Mechanical Vent 30 03/21/23 08:00 Mechanical Vent 30 03/21/23 07:59 36.9 C 100 H 13 90/74 L 96 Mechanical Vent 30 03/21/23 07:45 37.0 C 74 15 96 Mechanical Vent 30 03/21/23 07:45 74 20 96 30 03/21/23 07:30 36.9 C 72 16 99 Mechanical Vent 40 03/21/23 07:28 37.0 C 77 16 83/62 L 100 Mechanical Vent 40 03/21/23 07:15 37.0 C 75 15 100 03/21/23 07:06 37.0 C 82 21 97/48 L 100 Mechanical Vent 40 03/21/23 07:00 Mechanical Vent 40 03/21/23 07:00 37.0 C 72 16 98 Mechanical Vent 40 03/21/23 07:00 37.0 C 03/21/23 07:00 40 03/21/23 06:45 37.0 C 75 16 98 Mechanical Vent 40 03/21/23 06:00 37.0 C 99 H 15 98 40 03/21/23 05:28 36.9 C 79 15 99 40 03/21/23 05:00 37.0 C 78 17 100 40 03/21/23 04:00 37.5 C 82 18 93 40 03/21/23 04:00 40 03/21/23 03:32 80 19 100 40 03/21/23 03:28 37.5 C 77 15 100 03/21/23 03:28 87/51 L 03/21/23 03:00 37.8 C H 84 15 100 40 all noted and reviewed including below (1) Aspiration pneumonia Aspiration pneumonia type: unspecified Laterality: unspecified laterality Lung location: unspecified part of lung Qualified Code(s): J69.0 - Pneumonitis due to inhalation of food and vomit
[2023-03-21] MEDS ORDERED: PEPTAMEN 1.5 CAL 1,000 ML BAG OG SCH (15:15)
[2023-03-21] MEDS: TUBE FEEDING WATER FLUSH OG SCH ×3 (15:50→23:31)
[2023-03-21] MEDS ORDERED: VANCOMYCIN HCL 1,250 MG in SODIUM CHLORIDE 0.9% 250 ML IV SCH (20:00)
[2023-03-21] MEDS: EPINEPHrine/NSS 4 MG/254 ML BAG IV SCH (20:07)
[2023-03-21] MEDS: ENOXAPARIN INJ 40 MG/0.4 ML SYR SQ SCH (22:38)
--- NOTE | 2023-03-21 22:51 | Electroencephalogram ---
EEG Procedure Note Date of Service March 21, 2023 Start / End Times Start Time: 11:36 End Time: 11:[address] Aaron Collado History A 73 year olf female with altered mental status and mycolonic jerks. EEG performed for evaluation of epileptiform activity. Home Medication List Medication Instructions Recorded Confirmed Type levothyroxine 100 mcg tablet 100 mcg PO DAILY #30 tabs 10/20/22 03/20/23 Rx (Synthroid) potassium chloride 10 mEq 10 meq PO DAILY #30 caps 11/02/22 03/20/23 Rx capsule,extended release furosemide 20 mg tablet 20 mg PO BID 02/27/23 03/20/23 History L.acidop,casei,lactis,rham-B.lact,mariama 2 cap PO DAILY 30 days #60 caps 03/16/23 03/20/23 Rx 625 mg (10 billion cell) capsule (Advanced Probiotic) calcium carbonate 500 mg-vitamin 2.5 tab PO DAILY 14 days #35 tabs 03/16/23 03/20/23 Rx D3 15 mcg (600 unit) tablet (Os-Edin 500 + D3) dicyclomine 10 mg capsule 10 mg PO TID PRN Abdominal Pain 7 03/16/23 03/20/23 Rx days #15 caps magnesium oxide 400 mg (241.3 mg 400 mg PO BID 14 days #28 tabs 03/16/23 03/20/23 Rx magnesium) tablet nirmatrelvir 300 mg (150 mg See Rx Instructions PO .COMPLEX 03/16/23 03/20/23 Rx x2)-ritonavir 100 mg tablet,dose #30 ea pack (Paxlovid) pantoprazole 40 mg tablet,delayed 40 mg PO DAILY 30 days #30 tabs 03/16/23 03/20/23 Rx release vancomycin 125 mg capsule 125 mg PO QID 5 days #20 caps 03/16/23 03/20/23 Rx acetaminophen 325 mg tablet 650 mg PO UD PRN Fever Or Pain 03/20/23 03/20/23 History acetaminophen 500 mg tablet 1,000 mg PO Q8 PRN Fever Or Pain 03/20/23 03/20/23 History (Tylenol Extra Strength) enoxaparin 40 mg/0.4 mL 40 mg subcut QAM 03/20/23 03/20/23 History subcutaneous syringe (Lovenox) metoprolol succinate 25 mg 12.5 mg PO QAM 03/20/23 03/20/23 History tablet,extended release 24 hr umeclidinium 62.5 mcg-vilanterol 1 ea inhalation QA 03/20/23 03/20/23 History 25 mcg/actuation powdr for inhalation (Anoro Ellipta) Inpatient Medication List Enoxaparin Sodium (Enoxaparin Inj 40 Mg/0.4 Ml Syr) 40 mg SQ Q24H [facility] Stop: 04/19/23 21:59 Last Admin: 03/21/23 22:38 Dose: 40 mg Documented By: Admin: 03/20/23 21:09 Dose: 40 mg Documented By: CLC Enteral Nutritional Formula (Peptamen 1.5 Edin 1,000 Ml Bag) 1,000 ml OG .See Protocol [facility]; Protocol Stop: 04/20/23 15:14 Last Admin: 03/21/23 15:49 Dose: 1,000 ml Documented By: ALVINO Norepinephrine Bitartrate (Levophed/D5w) 4 mg in 250 mls @ 5.929 mls/hr IV .Q24H [facility]; Protocol Stop: 04/19/23 14:29 Last Titration: 03/21/23 18:53 Dose: 0.03 mcg/kg/min, 5.9 mls/hr Documented By: ALVINO Co-signed By: KERI Admin: 03/21/23 11:57 Dose: Not Given Documented By: Titration: 03/21/23 11:57 Dose: 0.03 mcg/kg/min, 5.9 mls/hr Documented By: Titration: 03/21/23 07:19 Dose: 0.05 mcg/kg/min, 9.9 mls/hr Documented By: Titration: 03/21/23 06:54 Dose: 0.03 mcg/kg/min, 5.9 mls/hr Documented By: KERI Co-signed By: WRS Titration: 03/21/23 06:13 Dose: 0.03 mcg/kg/min, 5.9 mls/hr Documented By: Titration: 03/21/23 06:00 Dose: 0.05 mcg/kg/min, 9.9 mls/hr Documented By: Titration: 03/21/23 03:30 Dose: 0.07 mcg/kg/min, 13.8 mls/hr Documented By: Admin: 03/21/23 02:45 Dose: 0.2 mcg/kg/min, 39.5 mls/hr Documented By: CLC Co-signed By: TP Titration: 03/21/23 02:39 Dose: Infused Documented By: CLC Co-signed By: TP Titration: 03/20/23 22:39 Dose: 0.3 mcg/kg/min, 59.3 mls/hr Documented By: Admin: 03/20/23 22:29 Dose: 0.4 mcg/kg/min, 79.1 mls/hr Documented By: CLC Co-signed By: TP Titration: 03/20/23 22:29 Dose: Infused Documented By: CLC Co-signed By: TP Titration: 03/20/23 19:01 Dose: 0.08 mcg/kg/min, 15.8 mls/hr Documented By: CLC Co-signed By: WRS Titration: 03/20/23 15:53 Dose: 0.08 mcg/kg/min, 15.8 mls/hr Documented By: Titration: 03/20/23 15:36 Dose: 0.06 mcg/kg/min, 11.9 mls/hr Documented By: Titration: 03/20/23 14:52 Dose: 0.08 mcg/kg/min, 15.8 mls/hr Documented By: Admin: 03/20/23 14:32 Dose: 0.05 mcg/kg/min, 9.9 mls/hr Documented By: NA Co-signed By: MT Piperacillin Sod/Tazobactam (Sod 4.5 gm/ Dextrose) 100 mls @ 25 mls/hr IV Q8H [facility]; Protocol Stop: 03/27/23 16:59 Last Infusion: 03/21/23 20:26 Dose: Infused Documented By: Admin: 03/21/23 15:52 Dose: 25 mls/hr Documented By: Infusion: 03/21/23 11:50 Dose: Infused Documented By: Admin: 03/21/23 08:18 Dose: 25 mls/hr Documented By: Infusion: 03/21/23 05:46 Dose: Infused Documented By: Admin: 03/21/23 01:42 Dose: 25 mls/hr Documented By: Infusion: 03/20/23 21:28 Dose: Infused Documented By: Admin: 03/20/23 17:28 Dose: 25 mls/hr Documented By: MIGEL Fentanyl Citrate (Fentanyl Citrate) 2,500 mcg in 250 mls @ 5 mls/hr IV .Q50H [facility]; Protocol Stop: 04/03/23 17:44 Last Titration: 03/21/23 22:34 Dose: 75 mcg/hr, 7.5 mls/hr Documented By: CLC Co-signed By: TP Titration: 03/21/23 18:53 Dose: 50 mcg/hr, 5 mls/hr Documented By: WRS Co-signed By: CLC Titration: 03/21/23 16:21 Dose: 50 mcg/hr, 5 mls/hr Documented By: WRS Co-signed By: NMS Titration: 03/21/23 11:58 Dose: 25 mcg/hr, 2.5 mls/hr Documented By: WRS Co-signed By: AJB Titration: 03/21/23 08:00 Dose: 0 mcg/hr, 0 mls/hr Documented By: WRS Co-signed By: NMS Titration: 03/21/23 06:54 Dose: 25 mcg/hr, 2.5 mls/hr Documented By: CLC Co-signed By: WRS Titration: 03/21/23 02:46 Dose: 25 mcg/hr, 2.5 mls/hr Documented By: CLC Co-signed By: TP Titration: 03/20/23 19:01 Dose: 50 mcg/hr, 5 mls/hr Documented By: CLC Co-signed By: WRS Admin: 03/20/23 17:47 Dose: 50 mcg/hr, 5 mls/hr Documented By: WRS Co-signed By: ALEXANDRA Dexamethasone 6 mg/ Syringe 1.5 mls @ 1 mls/min IV DAILY [facility] Stop: 04/20/23 08:59 Last Admin: 03/21/23 08:19 Dose: 1 mls/min Documented By: ALVINO Epinephrine HCl () 4 mg in 254 mls @ 3.52 mls/hr IV .Q24H [facility]; Protocol Stop: 04/19/23 20:29 Last Admin: 03/21/23 20:07 Dose: 0.06 mcg/kg/min, 10.6 mls/hr Documented By: CLC Co-signed By: TP Titration: 03/21/23 20:03 Dose: Infused Documented By: CLC Co-signed By: TP Titration: 03/21/23 18:53 Dose: 0.06 mcg/kg/min, 10.6 mls/hr Documented By: WRS Co-signed By: CLC Titration: 03/21/23 14:16 Dose: 0.06 mcg/kg/min, 10.6 mls/hr Documented By: Titration: 03/21/23 14:10 Dose: 0.05 mcg/kg/min, 8.8 mls/hr Documented By: Titration: 03/21/23 13:11 Dose: 0.04 mcg/kg/min, 7 mls/hr Documented By: Titration: 03/21/23 12:55 Dose: 0.05 mcg/kg/min, 8.8 mls/hr Documented By: Titration: 03/21/23 11:52 Dose: 0.06 mcg/kg/min, 10.6 mls/hr Documented By: Titration: 03/21/23 10:56 Dose: 0.07 mcg/kg/min, 12.3 mls/hr Documented By: Titration: 03/21/23 10:29 Dose: 0.08 mcg/kg/min, 14.1 mls/hr Documented By: Titration: 03/21/23 09:09 Dose: 0.09 mcg/kg/min, 15.8 mls/hr Documented By: Titration: 03/21/23 06:54 Dose: 0.1 mcg/kg/min, 17.6 mls/hr Documented By: CLC Co-signed By: WRS Titration: 03/21/23 06:47 Dose: 0.1 mcg/kg/min, 17.6 mls/hr Documented By: Titration: 03/21/23 06:15 Dose: 0.09 mcg/kg/min, 15.8 mls/hr Documented By: Titration: 03/21/23 04:59 Dose: 0.08 mcg/kg/min, 14.1 mls/hr Documented By: Titration: 03/21/23 04:55 Dose: 0.07 mcg/kg/min, 12.3 mls/hr Documented By: Titration: 03/21/23 03:30 Dose: 0.06 mcg/kg/min, 10.6 mls/hr Documented By: Titration: 03/21/23 00:47 Dose: 0.05 mcg/kg/min, 8.8 mls/hr Documented By: Titration: 03/20/23 22:39 Dose: 0.04 mcg/kg/min, 7 mls/hr Documented By: Titration: 03/20/23 21:30 Dose: 0.03 mcg/kg/min, 5.3 mls/hr Documented By: Admin: 03/20/23 20:23 Dose: 0.02 mcg/kg/min, 3.5 mls/hr Documented By: TP Co-signed By: KERI Pantoprazole Sodium 40 mg/ (Syringe) 10 mls @ 5 mls/min IV DAILY@1100 [facility] Stop: 04/20/23 10:59 Last Admin: 03/21/23 10:13 Dose: 5 mls/min Documented By: ALVINO Insulin Aspart (Insulin Aspart Per Unit Charge) 0 units SC Q4 [facility]; Protocol Stop: 04/20/23 07:59 Last Admin: 03/21/23 20:56 Dose: Not Given Documented By: Admin: 03/21/23 16:17 Dose: Not Given Documented By: Admin: 03/21/23 11:38 Dose: Not Given Documented By: Admin: 03/21/23 08:17 Dose: 1 units Documented By: ALVINO Co-signed By: ELVIRA Miscellaneous (Icu Electrolyte Replacement Protocol) 1 each N/A BID@18 [facility]; Protocol Stop: 03/27/23 17:59 Last Admin: 03/21/23 18:49 Dose: Not Given Documented By: Admin: 03/21/23 06:17 Dose: Not Given Documented By: Admin: 03/20/23 18:50 Dose: 1 each Documented By: ALVINO Sterile Water (Tube Feeding Water Flush) 125 ml OG Q4H [facility] Stop: 04/20/23 15:59 Last Admin: 03/21/23 20:25 Dose: 125 ml Documented By: Admin: 03/21/23 15:50 Dose: 125 ml Documented By: ALVINO Discontinued Medications Atropine Sulfate (Atropine So4 1 Mg/Ml 1ml Vial) Confirm Administered Dose 1 mg .ROUTE .STK-MED ONE Stop: 03/20/23 13:11 Last Admin: 03/20/23 13:11 Dose: 1 mg Documented By: ES Atropine Sulfate (Atropine Sulfate 0.1 Mg/Ml 10ml Syr) 0.5 mg IV NOW STA Stop: 03/20/23 13:23 Last Admin: 03/20/23 13:46 Dose: Not Given Documented By: NA Atropine Sulfate (Atropine Sulfate 0.1 Mg/Ml 5ml Syr) 0.5 mg IV NOW STA Stop: 03/20/23 13:23 Last Admin: 03/20/23 13:45 Dose: Not Given Documented By: NA Atropine Sulfate (Atropine So4 1 Mg/Ml 1ml Vial) 1 mg IV NOW STA Stop: 03/20/23 14:43 Last Admin: 03/20/23 14:52 Dose: 1 mg Documented By: NA Atropine Sulfate (Atropine So4 1 Mg/Ml 1ml Vial) 1 mg IV NOW STA Stop: 03/20/23 14:49 Last Admin: 03/20/23 15:53 Dose: Not Given Documented By: CPB Dexamethasone (Dexamethasone Sod Inj 4 Mg/Ml Vial) 6 mg IV NOW STA Stop: 03/20/23 14:41 Last Admin: 03/20/23 15:29 Dose: 6 mg Documented By: CPB Etomidate (Etomidate 2 Mg/Ml 20 Ml Vial) 20 mg IV NOW ONE Stop: 03/20/23 17:34 Last Admin: 03/20/23 17:45 Dose: Not Given Documented By: WRS Fentanyl Citrate (Fentanyl Citrate 2,500 Mcg/250 Ml Bag) Confirm Administered Dose 2,500 mcg IV .STK-MED ONE Stop: 03/20/23 17:11 Last Admin: 03/20/23 17:49 Dose: Not Given Documented By: WRS Sodium Chloride (Nss) 500 mls @ 999 mls/hr IV .Q31M [facility] Stop: 03/20/23 13:15 Last Infusion: 03/20/23 13:52 Dose: Infused Documented By: Admin: 03/20/23 13:14 Dose: 999 mls/hr Documented By: ES Sodium Chloride (Nss) 1,000 mls @ 999 mls/hr IV .Q1H1M [facility] Stop: 03/20/23 13:45 Last Infusion: 03/20/23 14:04 Dose: Infused Documented By: Admin: 03/20/23 13:11 Dose: 999 mls/hr Documented By: ES Vancomycin HCl 1,000 mg/ (Sodium Chloride) 520 mls @ 200 mls/hr IV NOW STA Stop: 03/20/23 15:00 Last Infusion: 03/20/23 16:40 Dose: Infused Documented By: Admin: 03/20/23 13:11 Dose: 200 mls/hr Documented By: ES Piperacillin Sod/Tazobactam Sod (Zosyn) 4.5 gm in 100 mls @ 200 mls/hr IV NOW STA Stop: 03/20/23 13:00 Last Infusion: 03/20/23 13:52 Dose: Infused Documented By: Admin: 03/20/23 13:12 Dose: 200 mls/hr Documented By: ES Sodium Chloride (Nss) 1,000 mls @ 999 mls/hr IV .Q1H1M ONE Stop: 03/20/23 14:52 Last Infusion: 03/20/23 16:40 Dose: Infused Documented By: Admin: 03/20/23 14:31 Dose: 999 mls/hr Documented By: NA Dopamine HCl/Dextrose (Dopamine / D5w) 400 mg in 250 mls @ 8.893 mls/hr IV .Q24H [facility]; Protocol Stop: 04/19/23 15:59 Last Titration: 03/20/23 20:16 Dose: Infused Documented By: Titration: 03/20/23 19:01 Dose: 4.5 mcg/kg/min, 8.9 mls/hr Documented By: CLC Co-signed By: WRS Titration: 03/20/23 18:34 Dose: 4.5 mcg/kg/min, 8.9 mls/hr Documented By: Admin: 03/20/23 16:02 Dose: 2.5 mcg/kg/min, 4.9 mls/hr Documented By: PHILLIPL(2) Co-signed By: NIYAH Vancomycin HCl 1,250 mg/ (Sodium Chloride) 275 mls @ 200 mls/hr IV Q18H [facility] Stop: 03/27/23 19:59 Last Infusion: 03/20/23 21:27 Dose: Infused Documented By: Admin: 03/20/23 20:00 Dose: 200 mls/hr Documented By: CLC Calcium Gluconate 1,000 mg/ (Sodium Chloride) 60 mls @ 240 mls/hr IV Q15M [facility] Stop: 03/20/23 18:14 Last Infusion: 03/20/23 18:33 Dose: Infused Documented By: Admin: 03/20/23 18:07 Dose: 240 mls/hr Documented By: Infusion: 03/20/23 18:05 Dose: Infused Documented By: Admin: 03/20/23 17:50 Dose: 240 mls/hr Documented By: WRS Potassium Chloride (K Nabor / Wtr) 20 meq in 100 mls @ 50 mls/hr IV Q2H [facility] Stop: 03/21/23 02:59 Last Admin: 03/21/23 03:14 Dose: Not Given Documented By: Infusion: 03/21/23 03:04 Dose: Infused Documented By: Admin: 03/21/23 00:57 Dose: 50 mls/hr Documented By: Infusion: 03/21/23 00:56 Dose: Infused Documented By: Admin: 03/20/23 22:56 Dose: 50 mls/hr Documented By: Infusion: 03/20/23 22:56 Dose: Infused Documented By: Admin: 03/20/23 21:06 Dose: 50 mls/hr Documented By: CLC Lactated Ringer's (Lr) 500 mls @ 999 mls/hr IV .Q31M ONE Stop: 03/21/23 00:04 Last Infusion: 03/21/23 00:08 Dose: Infused Documented By: Admin: 03/20/23 23:37 Dose: 999 mls/hr Documented By: CLC Magnesium Sulfate/Dextrose (Magnesium Sulfate / D5w) 1 gm in 100 mls @ 50 mls/hr IV Q2H [facility] Stop: 03/21/23 06:29 Last Infusion: 03/21/23 06:37 Dose: Infused Documented By: Admin: 03/21/23 04:50 Dose: 50 mls/hr Documented By: Infusion: 03/21/23 04:50 Dose: Infused Documented By: Admin: 03/21/23 03:06 Dose: 50 mls/hr Documented By: CLC Lactated Ringer's (Lr) 500 mls @ 999 mls/hr IV .Q31M ONE Stop: 03/21/23 03:19 Last Infusion: 03/21/23 03:40 Dose: Infused Documented By: Admin: 03/21/23 03:06 Dose: 999 mls/hr Documented By: KERI Calcium Gluconate 1,000 mg/ (Sodium Chloride) 60 mls @ 240 mls/hr IV NOW ONE Stop: 03/21/23 04:14 Last Infusion: 03/21/23 04:50 Dose: Infused Documented By: Admin: 03/21/23 03:59 Dose: 240 mls/hr Documented By: TP Calcium Gluconate 1,000 mg/ (Sodium Chloride) 60 mls @ 240 mls/hr IV Q15M [facility] Stop: 03/21/23 10:29 Last Infusion: 03/21/23 10:27 Dose: Infused Documented By: Admin: 03/21/23 10:11 Dose: 240 mls/hr Documented By: Infusion: 03/21/23 10:11 Dose: Infused Documented By: Admin: 03/21/23 10:01 Dose: 240 mls/hr Documented By: ALVINO Sodium Chloride (Nss) 500 mls @ 500 mls/hr IV .Q1H ONE Stop: 03/21/23 10:59 Last Infusion: 03/21/23 10:57 Dose: Infused Documented By: Admin: 03/21/23 10:01 Dose: 500 mls/hr Documented By: ALVINO Insulin Aspart (Insulin Aspart Per Unit Charge) 0 units SC Q6 [facility]; Protocol Stop: 04/20/23 02:59 Last Admin: 03/21/23 06:12 Dose: 1 units Documented By: KERI Co-signed By: TP Admin: 03/21/23 03:08 Dose: 3 units Documented By: KERI Co-signed By: DIXON Levothyroxine Sodium (Levothyroxine Sodium 100 Mcg Tablet) 100 mcg PO .EXTRA DOSE ONE Stop: 03/21/23 10:01 Last Admin: 03/21/23 10:12 Dose: 100 mcg Documented By: ALVINO Lorazepam (Lorazepam 1 Mg/1 Ml Syr Ed Inj Use) Confirm Administered Dose 1 mg .ROUTE .STK-MED ONE Stop: 03/20/23 13:01 Last Admin: 03/20/23 13:03 Dose: 0.5 mg Documented By: PETE Miscellaneous (Icu Protocol For Hyperglycemia) 1 each N/A ACHS [facility] Stop: 03/22/23 16:37 Last Admin: 03/21/23 07:19 Dose: Not Given Documented By: Admin: 03/20/23 21:46 Dose: Not Given Documented By: Admin: 03/20/23 17:54 Dose: Not Given Documented By: ALVINO Miscellaneous (Rapid Sequence Induction Bag) Confirm Administered Dose 1 each N/A .STK-MED ONE Stop: 03/20/23 16:51 Last Admin: 03/20/23 17:49 Dose: 1 each Documented By: ALVINO Description This is a 21 electrode EEG with a single channel dedicated to limited EKG. The electrodes were placed in accordance with the International 10-20 system. REPORT: At the onset of the EEG the patient is in an altered mental state. The background is disorganized with prominent generalized period epileptiform discharges with frequent jerking movements on video. The background is continuous with loss of the normal anterior to posterior gradient. Instead consisting of generalized theta delta activity which is sharply contoured at times. Interpretation IMPRESSION: This is an abnormal routine EEG due to 1. Very frequent or nearly continuous generalized periodic epileptiform discharges (GPED's) consistent or suggestive of myoclonic status epilepticus, 2. Generalized background slowing suggestive of a non specific encephalopathy. Findings discussed with Dr. Ceferino Floyd via telephone at 10:50 PM. Discussed with FARTUN Childers via telephone at 10:54 PM.
[2023-03-21] MEDS ORDERED: PROPOFOL BOLUS FROM BAG IV PRN (23:13)
[2023-03-21] MEDS ORDERED: STAT IV Infusion **Titration per Protocol STA ×2 (23:13→23:40)
[2023-03-21] MEDS ORDERED: LORazepam 2 MG in SYRINGE 1 ML IV ONE (23:20)
[2023-03-21] MEDS: propofoL 1,000 MG/100 ML VIAL IV SCH (23:30)
[2023-03-21] MEDS ORDERED: MIDAZOLAM BOLUS FROM BAG IV PRN (23:40)
[2023-03-21] MEDS ORDERED: MIDAZOLAM HCL 125 MG/250 ML BAG IV SCH (23:45)
--- NOTE | 2023-03-21 23:51 | Communication Note ---
Date of Service: March 21, 2023 This evening I was notified by Dr. Slater with [facility] neurology that the patient had myoclonic status on EEG. Per EEG report, patient has disorganized with prominent generalized. Epileptiform discharges with frequent jerking movements. On bedside exam patient has continued to have myoclonic jerks, and with suspect ongoing seizure activity. Patient was switched to propofol and Versed drips and was loaded with Keppra. I did speak with the patient's regarding transfer to tertiary center and continuous EEG. Pros and cons of transfer were discussed in depth, and at this time the patient's would like the patient to remain here at [facility] for ongoing treatment. Of note, we did discuss the patient's prognosis and transition to comfort measures was also considered but at this time he would like to proceed with medical management. As of now, patient will remain here at [facility] and will attempt to manage seizure activity to the best of our ability without ability to obtain continuous EEG as it is not offered at this facility. Neurology consulted, and did receive recommendations from which were much appreciated. Will obtain daily EEG to monitor for ongoing seizure activity for now. Previous CT head was negative for acute intracranial findings. Patient's states that he has a doctor's appointment here at [facility] at 1130 tomorrow and will begin afterwards, and would likely benefit from further discussion regarding patient's prognosis and goals of care. Will continue with current management in the ICU for now. Patient's prognosis remains guarded. CRITICAL CARE TIME - I have personally spent 30 minutes of critical care time in the direct management of this patient. This is a life/limb threatening event. This includes time spent evaluating patient, direct bedside care, chart review, placing orders, interpretation of diagnostic studies, discussion with consultants, patient, and family members, as well as other required patient management activities. This time is exclusive of all separately billable procedures, and teaching time and separate from and in addition to any other critical care service time. Coding Level of Care Code 73319 CRITICAL CARE EA ADD 30M
[2023-03-22] MEDS: Standard Conc; 4mg in 250mL IV SCH (00:10)
[2023-03-22 03:10] LABS: iSTAT Allen Test Pass; iSTAT Art Bld Gas pCO2 Correct 30 mmHg (35-46); iSTAT Arterial Blood Gas HCO3 21 meg/L (19-24); iSTAT Arterial Blood Gas pCO2 31 mmHg (35-46); iSTAT Arterial Blood Gas pH 7.45 (7.35-7.45); iSTAT Arterial Blood Gas pO2 76 mmHg (80-95); iSTAT Arterial Blood Gas pO2 C 73; iSTAT Carbon Dioxide 22 mmol/L (24-31); iSTAT FiO2 30 %; iSTAT Hematocrit 18 % (37-47); iSTAT Hemoglobin 6.1 g/dl (12.0-16.0); iSTAT Potassium 4.7 mmol/L (3.3-5.0); iSTAT Site Art Line; iSTAT Sodium 138 mmol/L (135-144)
[2023-03-22 04:26] LABS: BUN Creatinine Ratio 22.7 (10-20); Calcium 6.8 mg/dl (8.6-10.3); Est GFR (African American) 67.2 ml/min; Est GFR (Non-African American) 57.9 ml/min; Magnesium 2.5 mg/dl (1.7-2.4); Phosphorus 4.8 mg/dl (2.5-4.9); Potassium 4.9 mmol/L (3.5-5.1)
[2023-03-22] MEDS: INSULIN ASPART PER UNIT CHARGE SC SCH ×4 (04:34→16:06)
[2023-03-22] MEDS: TUBE FEEDING WATER FLUSH OG SCH ×4 (04:41→16:07)
--- NOTE | 2023-03-22 06:15 | Electrocardiogram Report ---
Test Reason : Blood Pressure : / mmHG Vent. Rate : 087 BPM Atrial Rate : 087 BPM P-R Int : 158 ms QRS Dur : 074 ms QT Int : 392 ms P-R-T Axes : 087 065 066 degrees QTc Int : 471 ms Sinus rhythm with frequent Premature ventricular complexes and PACs Low voltage QRS Cannot rule out Anterior infarct (cited on or before 20-MAR-2023) Septal infarct Nonspecific T wave abnormality Abnormal ECG When compared with ECG of 20-MAR-2023 13:38, Premature ventricular complexes are now Present Premature atrial complexes are now Present NV interval has decreased Vent. rate has increased BY 38 BPM QT has shortened Confirmed by Guillermo Jackson ([id number]) on 03/22/2023 6:14:56 AM Referred By: [facility] Confirmed By:Guillermo Jackson
[2023-03-22] MEDS ORDERED: LEVOTHYROXINE SODIUM 100 MCG TABLET PO SCH (06:30)
[2023-03-22 07:16] LABS: Hemoglobin 6.6 g/dl (12.0-16.0); Mean Corpuscular Hemoglobin 29.7 pg (25.0-34.0); Mean Corpuscular Hgb Conc 31.4 g/dL (32.0-36.0); Mean Corpuscular Volume 94.6 fL (80.0-100.0); Mean Platelet Volume 9.6 fL (9.4-12.4); Platelet Count 286 K/uL (130-400); RDW Coefficient of Variation 18.8 % (11.5-14.5); RDW Standard Deviation 53.6 fL (36.4-46.3); Red Blood Count 2.22 M/uL (4.20-5.40); White Blood Count 15.05 K/ul (4.8-10.8)
[2023-03-22 07:25] LABS: Basophils # (auto) 0.02 K/uL (0.00-0.20); Basophils % (auto) 0.1 %; Immature Granulocytes # (auto) 0.15 K/uL (0.01-0.20); Lymphocytes # (auto) 0.77 K/uL (1.20-3.40); Lymphocytes % (auto) 5.1 %; Monocytes # (auto) 0.19 K/uL (0.11-0.59); Monocytes % (auto) 1.3 %; Neutrophils # (auto) 13.92 K/uL (1.40-6.50); Neutrophils % (auto) 92.5 %; RBC Morphology Unremarkable
[2023-03-22] MEDS: ICU ELECTROLYTE REPLACEMENT PROTOCOL SCH ×2 (07:34→18:37)
[2023-03-22 08:05] LABS: Hematocrit (blood only) 21.9 % (37.0-47.0); Hemoglobin 6.9 g/dl (12.0-16.0); Mean Corpuscular Hemoglobin 29.7 pg (25.0-34.0); Mean Corpuscular Hgb Conc 31.5 g/dL (32.0-36.0); Mean Corpuscular Volume 94.4 fL (80.0-100.0); Mean Platelet Volume 9.3 fL (9.4-12.4); Platelet Count 269 K/uL (130-400); RDW Coefficient of Variation 18.7 % (11.5-14.5); RDW Standard Deviation 53.1 fL (36.4-46.3); Red Blood Count 2.32 M/uL (4.20-5.40); White Blood Count 13.74 K/ul (4.8-10.8)
[2023-03-22] MEDS: PIPERACILLIN/TAZOBACTAM 4.5 GM in DEXTROSE 5% MINI-B 100 ML IV SCH ×2 (08:15→16:21)
[2023-03-22] MEDS: dexAMETHasone 6 MG in SYRINGE 0 ML IV SCH (08:16)
[2023-03-22] MEDS ORDERED: STAT IV/IM STA (08:53)
[2023-03-22] MEDS ORDERED: levETIRAcetam 1,500 MG in 0.9 % SODIUM CHLORIDE 100 ML IV SCH (09:00)
--- NOTE | 2023-03-22 09:02 | Critical Care Progress Note ---
Date of Service March 22, 2023 Assessment & Plan (1) Status epilepticus: (2) Hypovolemic shock: (3) Shock circulatory: (4) Hypothermia: (5) Bradycardia: (6) Acute metabolic encephalopathy: (7) Aspiration pneumonia: (8) Small cell lung cancer in adult: Plan 73-year-old female with a history of metastatic small cell lung cancer, recent hospital discharge due to complicated UTI, weight loss and postsurgical hypothyroidism presenting to the ER with acute encephalopathy and profound hypotension, bradycardia and hypothermia. Neurologic: EEG 03/21/2023 consistent with status epilepticus. Patient was loaded with Keppra yesterday evening. She was also started on Versed and propofol infusions for burst suppression. Transferred to a tertiary center with continuous EEG was discussed with the who declined transfer at this time. Neurology consulted and recommending daily EEGs while the patient is here. No further signs of myoclonic jerking activity this morning. 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 Further brain imaging may be required along with lumbar puncture. Will defer to neurology. Overall prognosis is quite poor. Pulmonary: Intubated 03/20/2023 due to inability to protect airway. She has evidence of aspiration pneumonia. Sputum cultures pending. Continue lung protective ventilation strategy. Currently requiring minimal ventilator settings. Cardiovascular: Patient with circulatory shock at this time which is somewhat undifferentiated. Suspect an element of sepsis and hypovolemia. Bradycardia was likely due to underlying hypothermia. I suspect the overarching issue is failure to thrive in the context of advanced malignancy and declining performance status. TSH actually improved compared to prior TSH values. Currently on low-dose of norepinephrine and epinephrine. Bradycardia is improving. Echo this admission unremarkable. Troponin on admission was negative. Gastrointestinal: N.p.o. at this time. CT abdomen pelvis without acute findings. LFTs and ammonia unremarkable. Continue with trophic tube feeds. Continue pantoprazole for GI prophylaxis. Renal: Urine output adequate at this time. Patient with continued rise of creatinine although still within normal limits. Replace electrolytes per protocol. She is profoundly hypocalcemic. Phosphorus mildly elevated 5.7. Infectious disease: Urine cultures and blood cultures pending. She grew Citrobacter on her last urine culture which was pansensitive. MRSA screen was negative. Continue Zosyn. Patient is COVID-19 positive. Her first positive in our system was 03/16/2023. Her CT scan is not consistent with COVID viral pneumonia. She may have an element of aspiration pneumonia. Dexamethasone at this time is reasonable which may also help with any relative adrenal insufficiency. Would hold on remdesivir at this time as unlikely to be of benefit and also known to cause bradycardia. Procalcitonin on admission was 0.09. Repeat procalcitonin 03/21/2023 was 0.49. Hematologic: Patient with anemia of chronic disease secondary to malignancy and history of chemotherapy. Hemoglobin dropped to 6.9. Patient's is currently unreachable via phone for consent of blood transfusion. Will transfuse if emergency situation. Endocrine: Patient with evidence of hypothyroidism based on TSH. Continue p.o. levothyroxine and dexamethasone. Orthopedics: Patient with recent trochanteric fracture and humeral fracture. She underwent a right reverse total shoulder arthroplasty last admission. Lines and tubes: Left central line in the femoral vein placed 03/20/2023 by the ER. Temp sensing Delcid catheter in place. Left radial arterial line placed 03/20/2023. VTE prophylaxis: SCDs CODE STATUS: Patient was listed as full code on hospital discharge from 03/16/2023. indicates that he would want her to be a full code. Will consult palliative care given the patient's grave prognosis and overall poor performance status. Family at bedside: updated outside the room on 03/20/2023. He indicates that her wishes would be to be a full code. He recalls a palliative care discussion during her recent admission and would still prefer that she remain a full code at this time. Palliative care consulted and attempting to reach . Disposition: ICU I have personally spent 56 minutes of critical care time in the direct management of this patient. This is a life/limb threatening event. This includes time spent evaluating patient, direct bedside care, chart review, placing orders, interpretation of diagnostic studies, discussion with consultants, patient, and family members, as well as other required patient management activities. This time is exclusive of all separately billable procedures, and teaching time and separate from and in addition to any other critical care service time. Thank you for allowing us to participate in the care of this patient. Admission and Anticipated Discharge Date Admission Date: March 20, 2023 Review of Systems Review of Systems: Unobtainable due to endotracheal tube and Unobtainable due to reduced consciousness Physical Exam Physical Exam: Constitutional: Patient appears elderly and frail. She is in severe distress. Eyes: Pupils are equal round and reactive to light. Conjunctivae are normal. Anicteric sclera. Ears nose, mouth and throat: Intubated and sedated. Neck: Trachea is midline. Visual inspection is normal. Respiratory: Mildly diminished at the bases. Rhonchi noted bilaterally. Cardiovascular: Regular rate and rhythm. No murmurs. No edema. Gastrointestinal: Normal bowel sounds, soft, nontender and nondistended. No hepatosplenomegaly noted. Musculoskeletal: No cyanosis. Patient is able to move all extremities. Strength is 5 out of 5 in the upper and lower extremities. Skin: No rashes, warm dry and intact. Neurologic: Heavily sedated. Psychiatric: Obtunded. Results & Data Results & Data Vital Signs (Past 12 Hours) Vital Signs Temp Pulse Resp BP Pulse Ox O2 Del Method FiO2 03/22/23 08:29 30 03/22/23 08:00 Mechanical Vent 30 03/22/23 07:13 59 L 16 99 30 03/22/23 06:00 35.7 C L 58 L 16 98 30 03/22/23 05:59 95/56 L 03/22/23 05:59 35.7 C L 59 L 16 98 03/22/23 05:44 93/53 L 03/22/23 05:44 35.8 C L 60 16 98 03/22/23 05:29 35.8 C L 63 16 98 03/22/23 05:29 94/54 L 03/22/23 05:14 99/51 L 03/22/23 05:14 35.9 C L 64 16 98 03/22/23 05:00 35.9 C L 67 16 98 30 03/22/23 04:59 35.9 C L 63 16 98 03/22/23 04:59 96/59 L 03/22/23 04:44 99/52 L 03/22/23 04:44 36.0 C L 66 16 98 03/22/23 04:29 36.0 C L 66 16 98 03/22/23 04:29 95/55 L 03/22/23 04:14 91/54 L 03/22/23 04:14 36.1 C L 65 16 98 03/22/23 04:00 36.1 C L 60 16 98 30 03/22/23 04:00 30 03/22/23 03:59 93/49 L 03/22/23 03:59 36.1 C L 60 16 98 03/22/23 03:44 93/56 L 03/22/23 03:44 36.2 C L 63 16 98 03/22/23 03:39 68 16 97 30 03/22/23 03:29 93/50 L 03/22/23 03:29 36.3 C L 60 16 98 03/22/23 03:14 36.3 C L 60 16 98 03/22/23 03:14 92/48 L 03/22/23 03:00 36.4 C L 68 16 98 30 03/22/23 02:59 36.4 C L 62 16 98 03/22/23 02:59 91/52 L 03/22/23 02:44 91/51 L 03/22/23 02:44 36.4 C L 68 16 98 03/22/23 02:29 92/50 L 03/22/23 02:29 36.5 C 63 16 98 03/22/23 02:14 89/48 L 03/22/23 02:14 36.5 C 65 16 98 03/22/23 02:00 36.6 C 65 16 98 30 03/22/23 01:59 98/44 L 03/22/23 01:59 36.6 C 65 16 98 03/22/23 01:44 92/51 L 03/22/23 01:44 36.6 C 66 16 98 03/22/23 01:29 89/51 L 03/22/23 01:29 36.7 C 64 16 98 03/22/23 01:14 95/53 L 03/22/23 01:14 36.8 C 66 16 98 03/22/23 01:00 36.9 C 64 16 98 30 03/22/23 00:59 88/45 L 03/22/23 00:59 36.9 C 60 16 98 03/22/23 00:44 90/47 L 03/22/23 00:44 36.9 C 65 16 98 03/22/23 00:00 30 03/22/23 00:00 62 03/21/23 23:08 95 H 24 95 30 03/21/23 23:00 37.6 C H 78 16 97 30 03/21/23 22:59 89/48 L 03/21/23 22:59 37.6 C H 77 16 97 03/21/23 22:44 37.7 C H 77 16 97 03/21/23 22:44 91/49 L 03/21/23 22:31 123/65 03/21/23 22:31 37.6 C H 112 H 17 95 03/21/23 22:14 97/49 L 03/21/23 22:14 37.7 C H 83 16 97 03/21/23 22:00 37.7 C H 160 H 16 97 30 03/21/23 21:59 90/66 L 03/21/23 21:59 37.7 C H 124 H 15 97 03/21/23 21:44 97/53 L 03/21/23 21:44 37.7 C H 80 16 96 03/21/23 21:29 93/47 L 03/21/23 21:29 37.8 C H 79 13 96 03/21/23 21:16 37.7 C H 126 H 15 96 03/21/23 21:16 83/68 L 03/21/23 21:00 37.7 C H 81 16 96 30 03/21/23 20:59 99/52 L 03/21/23 20:59 37.7 C H 83 13 96 Coding Level of Care Code 81509 CRITICAL CARE 1ST 30-74M Diagnoses Status epilepticus G40.901 Hypovolemic shock R57.1 Shock circulatory R57.9 Hypothermia T68.XXXA Bradycardia R00.1 Acute metabolic encephalopathy G93.41 Aspiration pneumonia, unspecified aspiration pneumonia type, unspecified laterality, unspecified part of lung J69.0 Aspiration pneumonia type: unspecified Laterality: unspecified laterality Lung location: unspecified part of lung Small cell lung cancer in adult C34.90 Time Spent (min) 56 (7) Aspiration pneumonia Aspiration pneumonia type: unspecified Laterality: unspecified laterality Lung location: unspecified part of lung Qualified Code(s): J69.0 - Pneumonitis due to inhalation of food and vomit
[2023-03-22] MEDS: CALCIUM GLUCONATE 10% 1,000 MG in SODIUM CHLOR 0.9% MINI-B 50 ML IV SCH ×2 (09:27→10:08)
--- NOTE | 2023-03-22 10:15 | Electroencephalogram ---
EEG Procedure Note Date of Service March 22, 2023 Start / End Times Start Time: 06:23 End Time: 06:43 Referring Physician FARTUN Day History A 73 year old female with status epilepticus. EEG performed for evaluation of epileptiform activity. Home Medication List Medication Instructions Recorded Confirmed Type levothyroxine 100 mcg tablet 100 mcg PO DAILY #30 tabs 10/20/22 03/20/23 Rx (Synthroid) potassium chloride 10 mEq 10 meq PO DAILY #30 caps 11/02/22 03/20/23 Rx capsule,extended release furosemide 20 mg tablet 20 mg PO BID 02/27/23 03/20/23 History L.acidop,casei,lactis,rham-B.lact,mariama 2 cap PO DAILY 30 days #60 caps 03/16/23 03/20/23 Rx 625 mg (10 billion cell) capsule (Advanced Probiotic) calcium carbonate 500 mg-vitamin 2.5 tab PO DAILY 14 days #35 tabs 03/16/23 03/20/23 Rx D3 15 mcg (600 unit) tablet (Os-Edin 500 + D3) dicyclomine 10 mg capsule 10 mg PO TID PRN Abdominal Pain 7 03/16/23 03/20/23 Rx days #15 caps magnesium oxide 400 mg (241.3 mg 400 mg PO BID 14 days #28 tabs 03/16/23 03/20/23 Rx magnesium) tablet nirmatrelvir 300 mg (150 mg See Rx Instructions PO .COMPLEX 03/16/23 03/20/23 Rx x2)-ritonavir 100 mg tablet,dose #30 ea pack (Paxlovid) pantoprazole 40 mg tablet,delayed 40 mg PO DAILY 30 days #30 tabs 03/16/23 03/20/23 Rx release vancomycin 125 mg capsule 125 mg PO QID 5 days #20 caps 03/16/23 03/20/23 Rx acetaminophen 325 mg tablet 650 mg PO UD PRN Fever Or Pain 03/20/23 03/20/23 History acetaminophen 500 mg tablet 1,000 mg PO Q8 PRN Fever Or Pain 03/20/23 03/20/23 History (Tylenol Extra Strength) enoxaparin 40 mg/0.4 mL 40 mg subcut QAM 03/20/23 03/20/23 History subcutaneous syringe (Lovenox) metoprolol succinate 25 mg 12.5 mg PO QAM 03/20/23 03/20/23 History tablet,extended release 24 hr umeclidinium 62.5 mcg-vilanterol 1 ea inhalation QA 03/20/23 03/20/23 History 25 mcg/actuation powdr for inhalation (Anoro Ellipta) Inpatient Medication List Enteral Nutritional Formula (Peptamen 1.5 Edin 1,000 Ml Bag) 1,000 ml OG .See Protocol [facility]; Protocol Stop: 04/20/23 15:14 Last Admin: 03/21/23 15:49 Dose: 1,000 ml Documented By: WRS Norepinephrine Bitartrate (Levophed/D5w) 4 mg in 250 mls @ 5.929 mls/hr IV .Q24H [facility]; Protocol Stop: 04/19/23 14:29 Last Titration: 03/22/23 07:12 Dose: 0.03 mcg/kg/min, 5.9 mls/hr Documented By: CLC Co-signed By: DMB Admin: 03/22/23 00:10 Dose: 0.03 mcg/kg/min, 5.9 mls/hr Documented By: TP Co-signed By: ELS Titration: 03/22/23 00:10 Dose: Infused Documented By: TP Co-signed By: ELS Titration: 03/21/23 18:53 Dose: 0.03 mcg/kg/min, 5.9 mls/hr Documented By: WRS Co-signed By: CLC Admin: 03/21/23 11:57 Dose: Not Given Documented By: Titration: 03/21/23 11:57 Dose: 0.03 mcg/kg/min, 5.9 mls/hr Documented By: Titration: 03/21/23 07:19 Dose: 0.05 mcg/kg/min, 9.9 mls/hr Documented By: Titration: 03/21/23 06:54 Dose: 0.03 mcg/kg/min, 5.9 mls/hr Documented By: CLC Co-signed By: WRS Titration: 03/21/23 06:13 Dose: 0.03 mcg/kg/min, 5.9 mls/hr Documented By: Titration: 03/21/23 06:00 Dose: 0.05 mcg/kg/min, 9.9 mls/hr Documented By: Titration: 03/21/23 03:30 Dose: 0.07 mcg/kg/min, 13.8 mls/hr Documented By: Admin: 03/21/23 02:45 Dose: 0.2 mcg/kg/min, 39.5 mls/hr Documented By: CLC Co-signed By: TP Titration: 03/21/23 02:39 Dose: Infused Documented By: CLC Co-signed By: TP Titration: 03/20/23 22:39 Dose: 0.3 mcg/kg/min, 59.3 mls/hr Documented By: Admin: 03/20/23 22:29 Dose: 0.4 mcg/kg/min, 79.1 mls/hr Documented By: CLC Co-signed By: TP Titration: 03/20/23 22:29 Dose: Infused Documented By: CLC Co-signed By: TP Titration: 03/20/23 19:01 Dose: 0.08 mcg/kg/min, 15.8 mls/hr Documented By: CLC Co-signed By: WRS Titration: 03/20/23 15:53 Dose: 0.08 mcg/kg/min, 15.8 mls/hr Documented By: Titration: 03/20/23 15:36 Dose: 0.06 mcg/kg/min, 11.9 mls/hr Documented By: Titration: 03/20/23 14:52 Dose: 0.08 mcg/kg/min, 15.8 mls/hr Documented By: Admin: 03/20/23 14:32 Dose: 0.05 mcg/kg/min, 9.9 mls/hr Documented By: NA Co-signed By: BANG Piperacillin Sod/Tazobactam (Sod 4.5 gm/ Dextrose) 100 mls @ 25 mls/hr IV Q8H [facility]; Protocol Stop: 03/27/23 16:59 Last Admin: 03/22/23 08:15 Dose: 25 mls/hr Documented By: Infusion: 03/22/23 03:53 Dose: Infused Documented By: Admin: 03/21/23 23:35 Dose: 25 mls/hr Documented By: Infusion: 03/21/23 20:26 Dose: Infused Documented By: Admin: 03/21/23 15:52 Dose: 25 mls/hr Documented By: Infusion: 03/21/23 11:50 Dose: Infused Documented By: Admin: 03/21/23 08:18 Dose: 25 mls/hr Documented By: Infusion: 03/21/23 05:46 Dose: Infused Documented By: Admin: 03/21/23 01:42 Dose: 25 mls/hr Documented By: Infusion: 03/20/23 21:28 Dose: Infused Documented By: Admin: 03/20/23 17:28 Dose: 25 mls/hr Documented By: MIGEL Dexamethasone 6 mg/ Syringe 1.5 mls @ 1 mls/min IV DAILY [facility] Stop: 04/20/23 08:59 Last Admin: 03/22/23 08:16 Dose: 1 mls/min Documented By: Admin: 03/21/23 08:19 Dose: 1 mls/min Documented By: ALVINO Epinephrine HCl () 4 mg in 254 mls @ 3.52 mls/hr IV .Q24H [facility]; Protocol Stop: 04/19/23 20:29 Last Titration: 03/22/23 07:12 Dose: 0.06 mcg/kg/min, 10.6 mls/hr Documented By: CLC Co-signed By: DMB Admin: 03/21/23 20:07 Dose: 0.06 mcg/kg/min, 10.6 mls/hr Documented By: CLC Co-signed By: TP Titration: 03/21/23 20:03 Dose: Infused Documented By: CLC Co-signed By: TP Titration: 03/21/23 18:53 Dose: 0.06 mcg/kg/min, 10.6 mls/hr Documented By: WRS Co-signed By: CLC Titration: 03/21/23 14:16 Dose: 0.06 mcg/kg/min, 10.6 mls/hr Documented By: Titration: 03/21/23 14:10 Dose: 0.05 mcg/kg/min, 8.8 mls/hr Documented By: Titration: 03/21/23 13:11 Dose: 0.04 mcg/kg/min, 7 mls/hr Documented By: Titration: 03/21/23 12:55 Dose: 0.05 mcg/kg/min, 8.8 mls/hr Documented By: Titration: 03/21/23 11:52 Dose: 0.06 mcg/kg/min, 10.6 mls/hr Documented By: Titration: 03/21/23 10:56 Dose: 0.07 mcg/kg/min, 12.3 mls/hr Documented By: Titration: 03/21/23 10:29 Dose: 0.08 mcg/kg/min, 14.1 mls/hr Documented By: Titration: 03/21/23 09:09 Dose: 0.09 mcg/kg/min, 15.8 mls/hr Documented By: Titration: 03/21/23 06:54 Dose: 0.1 mcg/kg/min, 17.6 mls/hr Documented By: CLC Co-signed By: WRS Titration: 03/21/23 06:47 Dose: 0.1 mcg/kg/min, 17.6 mls/hr Documented By: Titration: 03/21/23 06:15 Dose: 0.09 mcg/kg/min, 15.8 mls/hr Documented By: Titration: 03/21/23 04:59 Dose: 0.08 mcg/kg/min, 14.1 mls/hr Documented By: Titration: 03/21/23 04:55 Dose: 0.07 mcg/kg/min, 12.3 mls/hr Documented By: Titration: 03/21/23 03:30 Dose: 0.06 mcg/kg/min, 10.6 mls/hr Documented By: Titration: 03/21/23 00:47 Dose: 0.05 mcg/kg/min, 8.8 mls/hr Documented By: Titration: 03/20/23 22:39 Dose: 0.04 mcg/kg/min, 7 mls/hr Documented By: Titration: 03/20/23 21:30 Dose: 0.03 mcg/kg/min, 5.3 mls/hr Documented By: Admin: 03/20/23 20:23 Dose: 0.02 mcg/kg/min, 3.5 mls/hr Documented By: TP Co-signed By: CLC Pantoprazole Sodium 40 mg/ (Syringe) 10 mls @ 5 mls/min IV DAILY@1100 [facility] Stop: 04/20/23 10:59 Last Admin: 03/21/23 10:13 Dose: 5 mls/min Documented By: ALVINO Propofol (Diprivan) 1,000 mg in 100 mls @ 6.036 mls/hr IV .[id number] [facility]; Protocol Stop: 03/24/23 23:14 Last Titration: 03/22/23 07:12 Dose: 20 mcg/kg/min, 6 mls/hr Documented By: KERI Co-signed By: BENTLEY Admin: 03/21/23 23:30 Dose: 20 mcg/kg/min, 6 mls/hr Documented By: TP Co-signed By: KERI Midazolam HCl (Versed) 125 mg in 250 mls @ 2 mls/hr IV .Q96H [facility]; Protocol Stop: 04/20/23 23:44 Last Titration: 03/22/23 07:12 Dose: 1 mg/hr, 2 mls/hr Documented By: KERI Co-signed By: BENTLEY Admin: 03/22/23 00:10 Dose: 1 mg/hr, 2 mls/hr Documented By: TP Co-signed By: KADE Insulin Aspart (Insulin Aspart Per Unit Charge) 0 units SC Q4 [facility]; Protocol Stop: 04/20/23 07:59 Last Admin: 03/22/23 08:15 Dose: 1 units Documented By: LESLYE Co-signed By: BENTLEY Admin: 03/22/23 04:34 Dose: Not Given Documented By: Admin: 03/21/23 23:55 Dose: Not Given Documented By: TP Co-signed By: KADE Admin: 03/21/23 20:56 Dose: Not Given Documented By: Admin: 03/21/23 16:17 Dose: Not Given Documented By: Admin: 03/21/23 11:38 Dose: Not Given Documented By: Admin: 03/21/23 08:17 Dose: 1 units Documented By: ALVINO Co-signed By: ELVIRA Levothyroxine Sodium (Levothyroxine Sodium 100 Mcg Tablet) 100 mcg PO DAILYBB [facility] Stop: 04/21/23 06:29 Last Admin: 03/22/23 06:28 Dose: 100 mcg Documented By: KERI Miscellaneous (Icu Electrolyte Replacement Protocol) 1 each N/A BID@06,18 [facility]; Protocol Stop: 03/27/23 17:59 Last Admin: 03/22/23 07:34 Dose: Not Given Documented By: Admin: 03/21/23 18:49 Dose: Not Given Documented By: Admin: 03/21/23 06:17 Dose: Not Given Documented By: Admin: 03/20/23 18:50 Dose: 1 each Documented By: ALVINO Sterile Water (Tube Feeding Water Flush) 125 ml OG Q4H [facility] Stop: 04/20/23 15:59 Last Admin: 03/22/23 08:17 Dose: 125 ml Documented By: Admin: 03/22/23 04:41 Dose: 125 ml Documented By: Admin: 03/21/23 23:31 Dose: 125 ml Documented By: Admin: 03/21/23 20:25 Dose: 125 ml Documented By: Admin: 03/21/23 15:50 Dose: 125 ml Documented By: ALVINO Discontinued Medications Atropine Sulfate (Atropine So4 1 Mg/Ml 1ml Vial) Confirm Administered Dose 1 mg .ROUTE .STK-MED ONE Stop: 03/20/23 13:11 Last Admin: 03/20/23 13:11 Dose: 1 mg Documented By: ES Atropine Sulfate (Atropine Sulfate 0.1 Mg/Ml 10ml Syr) 0.5 mg IV NOW STA Stop: 03/20/23 13:23 Last Admin: 03/20/23 13:46 Dose: Not Given Documented By: NA Atropine Sulfate (Atropine Sulfate 0.1 Mg/Ml 5ml Syr) 0.5 mg IV NOW STA Stop: 03/20/23 13:23 Last Admin: 03/20/23 13:45 Dose: Not Given Documented By: NA Atropine Sulfate (Atropine So4 1 Mg/Ml 1ml Vial) 1 mg IV NOW STA Stop: 03/20/23 14:43 Last Admin: 03/20/23 14:52 Dose: 1 mg Documented By: NA Atropine Sulfate (Atropine So4 1 Mg/Ml 1ml Vial) 1 mg IV NOW STA Stop: 03/20/23 14:49 Last Admin: 03/20/23 15:53 Dose: Not Given Documented By: CPB Dexamethasone (Dexamethasone Sod Inj 4 Mg/Ml Vial) 6 mg IV NOW STA Stop: 03/20/23 14:41 Last Admin: 03/20/23 15:29 Dose: 6 mg Documented By: CPB Enoxaparin Sodium (Enoxaparin Inj 40 Mg/0.4 Ml Syr) 40 mg SQ Q24H [facility] Stop: 04/19/23 21:59 Last Admin: 03/21/23 22:38 Dose: 40 mg Documented By: Admin: 03/20/23 21:09 Dose: 40 mg Documented By: CLC Etomidate (Etomidate 2 Mg/Ml 20 Ml Vial) 20 mg IV NOW ONE Stop: 03/20/23 17:34 Last Admin: 03/20/23 17:45 Dose: Not Given Documented By: WRS Fentanyl Citrate (Fentanyl Citrate 2,500 Mcg/250 Ml Bag) Confirm Administered Dose 2,500 mcg IV .STK-MED ONE Stop: 03/20/23 17:11 Last Admin: 03/20/23 17:49 Dose: Not Given Documented By: WRS Sodium Chloride (Nss) 500 mls @ 999 mls/hr IV .Q31M [facility] Stop: 03/20/23 13:15 Last Infusion: 03/20/23 13:52 Dose: Infused Documented By: Admin: 03/20/23 13:14 Dose: 999 mls/hr Documented By: ES Sodium Chloride (Nss) 1,000 mls @ 999 mls/hr IV .Q1H1M [facility] Stop: 03/20/23 13:45 Last Infusion: 03/20/23 14:04 Dose: Infused Documented By: Admin: 03/20/23 13:11 Dose: 999 mls/hr Documented By: ES Vancomycin HCl 1,000 mg/ (Sodium Chloride) 520 mls @ 200 mls/hr IV NOW STA Stop: 03/20/23 15:00 Last Infusion: 03/20/23 16:40 Dose: Infused Documented By: Admin: 03/20/23 13:11 Dose: 200 mls/hr Documented By: ES Piperacillin Sod/Tazobactam Sod (Zosyn) 4.5 gm in 100 mls @ 200 mls/hr IV NOW STA Stop: 03/20/23 13:00 Last Infusion: 03/20/23 13:52 Dose: Infused Documented By: Admin: 03/20/23 13:12 Dose: 200 mls/hr Documented By: ES Sodium Chloride (Nss) 1,000 mls @ 999 mls/hr IV .Q1H1M ONE Stop: 03/20/23 14:52 Last Infusion: 03/20/23 16:40 Dose: Infused Documented By: Admin: 03/20/23 14:31 Dose: 999 mls/hr Documented By: NA Dopamine HCl/Dextrose (Dopamine / D5w) 400 mg in 250 mls @ 8.893 mls/hr IV .Q24H [facility]; Protocol Stop: 04/19/23 15:59 Last Titration: 03/20/23 20:16 Dose: Infused Documented By: Titration: 03/20/23 19:01 Dose: 4.5 mcg/kg/min, 8.9 mls/hr Documented By: CLC Co-signed By: WRS Titration: 03/20/23 18:34 Dose: 4.5 mcg/kg/min, 8.9 mls/hr Documented By: Admin: 03/20/23 16:02 Dose: 2.5 mcg/kg/min, 4.9 mls/hr Documented By: MIGEL(2) Co-signed By: NIYAH Vancomycin HCl 1,250 mg/ (Sodium Chloride) 275 mls @ 200 mls/hr IV Q18H [facility] Stop: 03/27/23 19:59 Last Infusion: 03/20/23 21:27 Dose: Infused Documented By: Admin: 03/20/23 20:00 Dose: 200 mls/hr Documented By: CLC Fentanyl Citrate (Fentanyl Citrate) 2,500 mcg in 250 mls @ 7.5 mls/hr IV .[id number] [facility]; Protocol Stop: 04/03/23 17:44 Last Titration: 03/22/23 01:43 Dose: Infused Documented By: CLC Co-signed By: TP Titration: 03/21/23 22:34 Dose: 75 mcg/hr, 7.5 mls/hr Documented By: CLC Co-signed By: TP Titration: 03/21/23 18:53 Dose: 50 mcg/hr, 5 mls/hr Documented By: WRS Co-signed By: CLC Titration: 03/21/23 16:21 Dose: 50 mcg/hr, 5 mls/hr Documented By: WRS Co-signed By: NMS Titration: 03/21/23 11:58 Dose: 25 mcg/hr, 2.5 mls/hr Documented By: WRS Co-signed By: AJB Titration: 03/21/23 08:00 Dose: 0 mcg/hr, 0 mls/hr Documented By: WRS Co-signed By: NMS Titration: 03/21/23 06:54 Dose: 25 mcg/hr, 2.5 mls/hr Documented By: CLC Co-signed By: WRS Titration: 03/21/23 02:46 Dose: 25 mcg/hr, 2.5 mls/hr Documented By: CLC Co-signed By: TP Titration: 03/20/23 19:01 Dose: 50 mcg/hr, 5 mls/hr Documented By: CLC Co-signed By: WRS Admin: 03/20/23 17:47 Dose: 50 mcg/hr, 5 mls/hr Documented By: WRS Co-signed By: ALEXANDRA Calcium Gluconate 1,000 mg/ (Sodium Chloride) 60 mls @ 240 mls/hr IV Q15M [facility] Stop: 03/20/23 18:14 Last Infusion: 03/20/23 18:33 Dose: Infused Documented By: Admin: 03/20/23 18:07 Dose: 240 mls/hr Documented By: Infusion: 03/20/23 18:05 Dose: Infused Documented By: Admin: 03/20/23 17:50 Dose: 240 mls/hr Documented By: ALVINO Potassium Chloride (K Nabor / Wtr) 20 meq in 100 mls @ 50 mls/hr IV Q2H [facility] Stop: 03/21/23 02:59 Last Admin: 03/21/23 03:14 Dose: Not Given Documented By: Infusion: 03/21/23 03:04 Dose: Infused Documented By: Admin: 03/21/23 00:57 Dose: 50 mls/hr Documented By: Infusion: 03/21/23 00:56 Dose: Infused Documented By: Admin: 03/20/23 22:56 Dose: 50 mls/hr Documented By: Infusion: 03/20/23 22:56 Dose: Infused Documented By: Admin: 03/20/23 21:06 Dose: 50 mls/hr Documented By: CLC Lactated Ringer's (Lr) 500 mls @ 999 mls/hr IV .Q31M ONE Stop: 03/21/23 00:04 Last Infusion: 03/21/23 00:08 Dose: Infused Documented By: Admin: 03/20/23 23:37 Dose: 999 mls/hr Documented By: CLC Magnesium Sulfate/Dextrose (Magnesium Sulfate / D5w) 1 gm in 100 mls @ 50 mls/ hr IV Q2H [facility] Stop: 03/21/23 06:29 Last Infusion: 03/21/23 06:37 Dose: Infused Documented By: Admin: 03/21/23 04:50 Dose: 50 mls/hr Documented By: Infusion: 03/21/23 04:50 Dose: Infused Documented By: Admin: 03/21/23 03:06 Dose: 50 mls/hr Documented By: CLC Lactated Ringer's (Lr) 500 mls @ 999 mls/hr IV .Q31M ONE Stop: 03/21/23 03:19 Last Infusion: 03/21/23 03:40 Dose: Infused Documented By: Admin: 03/21/23 03:06 Dose: 999 mls/hr Documented By: KERI Calcium Gluconate 1,000 mg/ (Sodium Chloride) 60 mls @ 240 mls/hr IV NOW ONE Stop: 03/21/23 04:14 Last Infusion: 03/21/23 04:50 Dose: Infused Documented By: Admin: 03/21/23 03:59 Dose: 240 mls/hr Documented By: TP Calcium Gluconate 1,000 mg/ (Sodium Chloride) 60 mls @ 240 mls/hr IV Q15M [facility] Stop: 03/21/23 10:29 Last Infusion: 03/21/23 10:27 Dose: Infused Documented By: Admin: 03/21/23 10:11 Dose: 240 mls/hr Documented By: Infusion: 03/21/23 10:11 Dose: Infused Documented By: Admin: 03/21/23 10:01 Dose: 240 mls/hr Documented By: ALVINO Sodium Chloride (Nss) 500 mls @ 500 mls/hr IV .Q1H ONE Stop: 03/21/23 10:59 Last Infusion: 03/21/23 10:57 Dose: Infused Documented By: Admin: 03/21/23 10:01 Dose: 500 mls/hr Documented By: ALVINO Lorazepam 2 mg/ Syringe 2 mls @ 2 mls/min IV ONCE ONE; Protocol Stop: 03/21/23 23:21 Last Admin: 03/21/23 23:30 Dose: 2 mls/min Documented By: DIXON Levetiracetam 2,000 mg/ Sodium (Chloride) 270 mls @ 999 mls/hr IV NOW STA Stop: 03/21/23 23:29 Last Infusion: 03/21/23 23:56 Dose: Infused Documented By: Admin: 03/21/23 23:29 Dose: 999 mls/hr Documented By: DIXON Levetiracetam 1,500 mg/ Sodium (Chloride) 115 mls @ 440 mls/hr IV BID [facility] Stop: 04/21/23 08:59 Last Infusion: 03/22/23 08:45 Dose: Infused Documented By: Admin: 03/22/23 08:16 Dose: 440 mls/hr Documented By: LESLYE Calcium Gluconate 1,000 mg/ (Sodium Chloride) 60 mls @ 240 mls/hr IV Q15M [facility] Stop: 03/22/23 09:29 Last Admin: 03/22/23 10:08 Dose: 240 mls/hr Documented By: Infusion: 03/22/23 09:42 Dose: Infused Documented By: Admin: 03/22/23 09:27 Dose: 240 mls/hr Documented By: LESLYE Insulin Aspart (Insulin Aspart Per Unit Charge) 0 units SC Q6 [facility]; Protocol Stop: 04/20/23 02:59 Last Admin: 03/21/23 06:12 Dose: 1 units Documented By: KERI Co-signed By: DIXON Admin: 03/21/23 03:08 Dose: 3 units Documented By: KERI Co-signed By: DIXON Levothyroxine Sodium (Levothyroxine Sodium 100 Mcg Tablet) 100 mcg PO .EXTRA DOSE ONE Stop: 03/21/23 10:01 Last Admin: 03/21/23 10:12 Dose: 100 mcg Documented By: ALVINO Lorazepam (Lorazepam 1 Mg/1 Ml Syr Ed Inj Use) Confirm Administered Dose 1 mg .ROUTE .STK-MED ONE Stop: 03/20/23 13:01 Last Admin: 03/20/23 13:03 Dose: 0.5 mg Documented By: PETE Miscellaneous (Icu Protocol For Hyperglycemia) 1 each N/A ACHS [facility] Stop: 03/22/23 16:37 Last Admin: 03/21/23 07:19 Dose: Not Given Documented By: Admin: 03/20/23 21:46 Dose: Not Given Documented By: Admin: 03/20/23 17:54 Dose: Not Given Documented By: ALVINO Miscellaneous (Rapid Sequence Induction Bag) Confirm Administered Dose 1 each N/A .STK-MED ONE Stop: 03/20/23 16:51 Last Admin: 03/20/23 17:49 Dose: 1 each Documented By: ALVINO Description This is a 21 electrode EEG with a single channel dedicated to limited EKG. The electrodes were placed in accordance with the International 10-20 system. REPORT: At the onset of the EEG the patient is altered. The background is continuous but disorganized consisting of an admixture of theta delta activity. No epileptiform activity is seen. 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 This is markedly improved since the EEG performed yesterday (03/21/2023). No epileptiform activity is seen.
[2023-03-22] MEDS: PANTOprazole 40 MG in SYRINGE DAILY IV SCH (11:20)
--- NOTE | 2023-03-22 11:39 | Neurology Consultation ---
Date of Consultation March 22, 2023 Assessment & Plan (1) Status epilepticus: Her exam is poor however the patient is under sedation The patient was loaded with Keppra 2000 mg yesterday Is now on 1500 mg twice daily, recommend to continue with concerns about her renal functions Load with Depakote 40 mg/kg, and start Depakote 500 mg twice daily. Check a level in 2 days MRI with and without contrast (due to carcinomatosis versus mets)Right thank you) Consider sedation windows starting tomorrow Goals of care to be discussed with family. Daily EEGs given the lack of LTM and refusal to transfer to a tertiary care center Telehealth Consultation Telehealth Information Telehealth Information: I performed this visit using a real-time telehealth connection between my location and the patients location ([facility]). After connecting through interactive tele-video, patient was identified by name and date of and/or wristband check.Patient (or authorized healthcare repres entative) was informed that this was a telemedicine visit and it was being conducted confidentially over secure lines. My office door was closed and no one else was present in the room with me.Patient (or authorized healthcare client account representative) provided consent to proceed with the visit, expressed an understanding of privacy and security of the telemedicine visit, and gave permission to have a hospital client account representative in the room in order to assist with the visit and to conduct portions of the visit, as needed. I informed the patient (or authorized healthcare client account representative) that I reviewed their record and presented the opportunity for them to ask any questions regarding the visit today. The patient was intubated and sedated she was evaluated with the help of the nurse History of Present Illness Reason for Consultation: Status epilepticus Requesting Physician: Kirby Henriquez MD Attending Physician: jade Walker History of Present Illness Kaci Funk is a 73-year-old female with a history of metastatic small cell lung cancer, recent hospital discharge due to complicated UTI, weight loss and postsurgical hypothyroidism presenting to the ER with acute encephalopathy and profound hypotension, bradycardia and hypothermia. She had worsening mentation EEG 03/21/2023 consistent with status epilepticus. Patient was loaded with Keppra yesterday evening. She was also started on Versed and propofol infusions for burst suppression. The refused transfer to a tertiary center with continuous EEGwho declined transfer at this time. Neurology consulted and recommending daily EEGs while the patient is here. No further signs of myoclonic jerking activity this morning. 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 Intubated 03/20/2023 due to inability to protect airway. She has evidence of aspiration pneumonia. Sputum cultures pending. Continue lung protective ventilation strategy. Currently requiring minimal ventilator settings. Allergies Allergy/AdvReac Type Severity Reaction Status Date / Time adhesive tape Allergy Unknown Redness of Verified 10/24/22 16:26 Skin morphine Allergy Unknown shock, Verified 10/17/22 08:28 dspnea neomycin Allergy Unknown Unknown Verified 10/24/22 16:26 Home Medications Medication Instructions Recorded Confirmed Type levothyroxine 100 mcg tablet 100 mcg PO DAILY #30 tabs 10/20/22 03/20/23 Rx (Synthroid) potassium chloride 10 mEq 10 meq PO DAILY #30 caps 11/02/22 03/20/23 Rx capsule,extended release furosemide 20 mg tablet 20 mg PO BID 02/27/23 03/20/23 History L.acidop,casei,lactis,rham-B.lact,mariama 2 cap PO DAILY 30 days #60 caps 03/16/23 03/20/23 Rx 625 mg (10 billion cell) capsule (Advanced Probiotic) calcium carbonate 500 mg-vitamin 2.5 tab PO DAILY 14 days #35 tabs 03/16/23 03/20/23 Rx D3 15 mcg (600 unit) tablet (Os-Edin 500 + D3) dicyclomine 10 mg capsule 10 mg PO TID PRN Abdominal Pain 7 03/16/23 03/20/23 Rx days #15 caps magnesium oxide 400 mg (241.3 mg 400 mg PO BID 14 days #28 tabs 03/16/23 03/20/23 Rx magnesium) tablet nirmatrelvir 300 mg (150 mg See Rx Instructions PO .COMPLEX 03/16/23 03/20/23 Rx x2)-ritonavir 100 mg tablet,dose #30 ea pack (Paxlovid) pantoprazole 40 mg tablet,delayed 40 mg PO DAILY 30 days #30 tabs 03/16/23 03/20/23 Rx release vancomycin 125 mg capsule 125 mg PO QID 5 days #20 caps 03/16/23 03/20/23 Rx acetaminophen 325 mg tablet 650 mg PO UD PRN Fever Or Pain 03/20/23 03/20/23 History acetaminophen 500 mg tablet 1,000 mg PO Q8 PRN Fever Or Pain 03/20/23 03/20/23 History (Tylenol Extra Strength) enoxaparin 40 mg/0.4 mL 40 mg subcut QAM 03/20/23 03/20/23 History subcutaneous syringe (Lovenox) metoprolol succinate 25 mg 12.5 mg PO QAM 03/20/23 03/20/23 History tablet,extended release 24 hr umeclidinium 62.5 mcg-vilanterol 1 ea inhalation QAM 03/20/23 03/20/23 History 25 mcg/actuation powdr for inhalation (Anoro Ellipta) Patient History Medical History (Updated 03/22/23 @ 08:56 by Tobias Walker MD) Status epilepticus Aspiration pneumonia Hypothermia Hypovolemic shock On antineoplastic chemotherapy Recurrent falls Osteoporosis 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 The majority represents a small cell carcinoma. The minority represents a non-small cell carcinoma without any definitive adenocarcinoma or squamous cell carcinoma differentiation. Pulmonary hypertension Postsurgical hypothyroidism Reflux esophagitis PSVT (paroxysmal supraventricular tachycardia) COPD (chronic obstructive pulmonary disease) Vitamin D deficiency Surgical History Hx of lumbosacral spine surgery x3 Hx of thyroidectomy Hx of colonoscopy Family History Other Breast cancer Social History Smoking Status: Former smoker Tobacco Type: Cigarettes Cigarettes Per Day: 1 pack a week; Smoking End Date: 4 months ago; Second Hand Exposure: No; Do You Dip or Chew Tobacco: No; Tobacco Cessation Education Requested by Patient: No Hx Alcohol Use: No Hx Substance Use: No Preferred Language: [place] Communication Ability: Impaired 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 Results & Data Vital Signs (Past 12 Hours) Vital Signs Temp Pulse Resp BP Pulse Ox O2 Del Method FiO2 03/22/23 11:32 81 16 98 30 03/22/23 10:00 36.6 C 79 16 98 03/22/23 09:59 36.6 C 70 16 98 03/22/23 09:59 101/60 03/22/23 09:45 36.4 C L 69 16 98 03/22/23 09:44 107/59 L 03/22/23 09:44 36.4 C L 70 16 98 03/22/23 09:30 36.2 C L 69 16 98 03/22/23 09:29 103/59 L 03/22/23 09:29 36.1 C L 70 16 98 03/22/23 09:15 35.9 C L 65 17 98 03/22/23 09:14 104/53 L 03/22/23 09:14 35.9 C L 68 16 98 03/22/23 09:00 35.7 C L 70 17 98 03/22/23 08:59 102/59 L 03/22/23 08:59 35.7 C L 68 16 98 03/22/23 08:45 35.5 C L 67 17 99 03/22/23 08:44 35.5 C L 68 16 99 03/22/23 08:44 108/68 03/22/23 08:30 Mechanical Vent 03/22/23 08:30 35.4 C L 60 17 99 03/22/23 08:29 119/63 03/22/23 08:29 35.3 C L 68 16 99 03/22/23 08:29 30 03/22/23 08:15 35.3 C L 63 17 99 03/22/23 08:14 107/64 03/22/23 08:14 35.3 C L 66 16 99 03/22/23 08:00 35.2 C L 56 L 16 98 03/22/23 08:00 Mechanical Vent 30 03/22/23 07:59 35.3 C L 54 L 16 98 03/22/23 07:59 112/62 03/22/23 07:45 35.3 C L 61 16 98 03/22/23 07:44 113/56 L 03/22/23 07:44 35.3 C L 55 L 16 99 03/22/23 07:30 35.4 C L 66 16 99 03/22/23 07:29 111/60 03/22/23 07:29 35.4 C L 66 16 99 03/22/23 07:15 35.4 C L 54 L 16 99 03/22/23 07:14 112/60 03/22/23 07:14 35.4 C L 55 L 16 99 03/22/23 07:13 59 L 16 99 30 03/22/23 07:00 35.5 C L 55 L 16 99 03/22/23 06:59 108/54 L 03/22/23 06:59 35.5 C L 55 L 16 99 03/22/23 06:45 35.6 C L 56 L 16 99 03/22/23 06:44 107/59 L 03/22/23 06:44 35.6 C L 57 L 16 99 03/22/23 06:30 35.6 C L 68 16 99 03/22/23 06:29 35.6 C L 63 16 98 03/22/23 06:29 104/53 L 03/22/23 06:15 35.7 C L 54 L 16 98 03/22/23 06:14 104/59 L 03/22/23 06:14 35.7 C L 64 16 98 03/22/23 06:00 35.7 C L 58 L 16 98 30 03/22/23 05:59 95/56 L 03/22/23 05:59 35.7 C L 59 L 16 98 03/22/23 05:44 93/53 L 03/22/23 05:44 35.8 C L 60 16 98 03/22/23 05:29 35.8 C L 63 16 98 03/22/23 05:29 94/54 L 03/22/23 05:14 99/51 L 03/22/23 05:14 35.9 C L 64 16 98 03/22/23 05:00 35.9 C L 67 16 98 30 03/22/23 04:59 35.9 C L 63 16 98 03/22/23 04:59 96/59 L 03/22/23 04:44 99/52 L 03/22/23 04:44 36.0 C L 66 16 98 03/22/23 04:29 36.0 C L 66 16 98 03/22/23 04:29 95/55 L 03/22/23 04:14 91/54 L 03/22/23 04:14 36.1 C L 65 16 98 03/22/23 04:00 36.1 C L 60 16 98 30 03/22/23 04:00 30 03/22/23 03:59 93/49 L 03/22/23 03:59 36.1 C L 60 16 98 03/22/23 03:44 93/56 L 03/22/23 03:44 36.2 C L 63 16 98 03/22/23 03:39 68 16 97 30 03/22/23 03:29 93/50 L 03/22/23 03:29 36.3 C L 60 16 98 03/22/23 03:14 36.3 C L 60 16 98 03/22/23 03:14 92/48 L 03/22/23 03:00 36.4 C L 68 16 98 30 03/22/23 02:59 36.4 C L 62 16 98 03/22/23 02:59 91/52 L 03/22/23 02:44 91/51 L 03/22/23 02:44 36.4 C L 68 16 98 03/22/23 02:29 92/50 L 03/22/23 02:29 36.5 C 63 16 98 03/22/23 02:14 89/48 L 03/22/23 02:14 36.5 C 65 16 98 03/22/23 02:00 36.6 C 65 16 98 30 03/22/23 01:59 98/44 L 03/22/23 01:59 36.6 C 65 16 98 03/22/23 01:44 92/51 L 03/22/23 01:44 36.6 C 66 16 98 03/22/23 01:29 89/51 L 03/22/23 01:29 36.7 C 64 16 98 03/22/23 01:14 95/53 L 03/22/23 01:14 36.8 C 66 16 98 03/22/23 01:00 36.9 C 64 16 98 30 03/22/23 00:59 88/45 L 03/22/23 00:59 36.9 C 60 16 98 03/22/23 00:44 90/47 L 03/22/23 00:44 36.9 C 65 16 98 03/22/23 00:00 30 03/22/23 00:00 62 Laboratory Results Abnormal lab results 03/21/23 03/21/23 03/21/23 Range/Units 16:18 20:17 23:44 WBC (4.8-10.8) K/ul RBC (4.20-5.40) M/uL Hgb (12.0-16.0) g/dl POC Hgb (12.0-16.0) g/dl Hct (37.0-47.0) % POC Hct (37-47) % MCHC (32.0-36.0) g/dL RDW Std Deviation (36.4-46.3) fL RDW Coeff of Minal (11.5-14.5) % MPV (9.4-12.4) fL Neut # (Auto) (1.40-6.50) K/uL Lymph # (Auto) (1.20-3.40) K/uL POC pCO2 (35-46) mmHg POC pO2 (80-95) mmHg POC Total CO2 (24-31) mmol/L ABG pH (Temp Correct) (7.35-7.45) ABG pCO2 (Temp Corrct (35-46) mmHg POC ABG O2 Sat (90-95) % Chloride (98-107) mmol/L BUN/Creatinine Ratio (10-20) Glucose (70-99(Fasting)) mg/dl POC Glucose (other) 136 H 147 H 122 H (70-99) mg/dl Calcium (8.6-10.3) mg/dl Magnesium (1.7-2.4) mg/dl 03/22/23 03/22/23 03/22/23 Range/Units 02:57 03:47 03:48 WBC 15.05 H (4.8-10.8) K/ul RBC 2.22 L (4.20-5.40) M/uL Hgb 6.6 L* (12.0-16.0) g/dl POC Hgb 6.1 L* (12.0-16.0) g/dl Hct 21.0 L (37.0-47.0) % POC Hct 18 L* (37-47) % MCHC 31.4 L (32.0-36.0) g/dL RDW Std Deviation 53.6 H (36.4-46.3) fL RDW Coeff of Minal 18.8 H (11.5-14.5) % MPV (9.4-12.4) fL Neut # (Auto) 13.92 H (1.40-6.50) K/uL Lymph # (Auto) 0.77 L (1.20-3.40) K/uL POC pCO2 31 L (35-46) mmHg POC pO2 76 L (80-95) mmHg POC Total CO2 22 L (24-31) mmol/L ABG pH (Temp Correct) 7.460 H (7.35-7.45) ABG pCO2 (Temp Corrct 30 L (35-46) mmHg POC ABG O2 Sat 96.0 H (90-95) % Chloride 108 H (98-107) mmol/L BUN/Creatinine Ratio 22.7 H (10-20) Glucose 142 H (70-99(Fasting)) mg/dl POC Glucose (other) (70-99) mg/dl Calcium 6.8 L (8.6-10.3) mg/dl Magnesium 2.5 H (1.7-2.4) mg/dl 03/22/23 03/22/23 03/22/23 Range/Units 07:47 07:54 11:35 WBC 13.74 H (4.8-10.8) K/ul RBC 2.32 L (4.20-5.40) M/uL Hgb 6.9 L* (12.0-16.0) g/dl POC Hgb (12.0-16.0) g/dl Hct 21.9 L (37.0-47.0) % POC Hct (37-47) % MCHC 31.5 L (32.0-36.0) g/dL RDW Std Deviation 53.1 H (36.4-46.3) fL RDW Coeff of Minal 18.7 H (11.5-14.5) % MPV 9.3 L (9.4-12.4) fL Neut # (Auto) (1.40-6.50) K/uL Lymph # (Auto) (1.20-3.40) K/uL POC pCO2 (35-46) mmHg POC pO2 (80-95) mmHg POC Total CO2 (24-31) mmol/L ABG pH (Temp Correct) (7.35-7.45) ABG pCO2 (Temp Corrct (35-46) mmHg POC ABG O2 Sat (90-95) % Chloride (98-107) mmol/L BUN/Creatinine Ratio (10-20) Glucose (70-99(Fasting)) mg/dl POC Glucose (other) 156 H 156 H (70-99) mg/dl Calcium (8.6-10.3) mg/dl Magnesium (1.7-2.4) mg/dl Diagnostic Findings CT head/brain wo con CLINICAL HISTORY: 73 years-old Female with AMS. Acutely altered mental status TECHNIQUE: Multiple axial CT images of the head were obtained without contrast. A dose lowering technique was utilized adhering to the principles of ALARA. COMPARISON: 02/27/2023 FINDINGS: Mildly motion degraded exam. No acute intracranial hemorrhage, midline shift, intracranial mass, hydrocephalus, territorial ischemia or abnormal extra-axial collection. Involutional changes with suggestion of mild chronic microvascular ischemic disease. The calvarium is intact. Small left mastoid effusion. Moderate mucosal thickening of the ethmoid air cells, left maxillary and sphenoid sinuses with maxillary and sphenoid air fluid levels. Unremarkable soft tissues and orbits. IMPRESSION: No acute intracranial abnormality. ACT 112: Negative or not required by law. The above report was generated using voice recognition software. It may contain grammatical, syntax or spelling errors. Medications Administered Active Medications Generic Name Dose Route Start Last Admin Trade Name Freq PRN Reason Stop Dose Admin Enteral Nutritional Formula 1,000 ml 03/21/23 15:15 03/21/23 15:49 Peptamen 1.5 Edin 1,000 Ml Bag OG 04/20/23 15:14 1,000 ml .See Protocol KVNG Administration Protocol Norepinephrine Bitartrate 4 mg in 250 mls @ 5.929 mls/hr 03/20/23 14:30 03/22/23 07:12 Levophed/D5w IV 04/19/23 14:29 0.03 mcg/kg/min .Q24H KVNG 5.9 mls/hr Titration Protocol 0.03 MCG/KG/MIN Piperacillin Sod/Tazobactam 100 mls @ 25 mls/hr 03/20/23 17:00 03/22/23 08:15 Sod 4.5 gm/ Dextrose IV 03/27/23 16:59 25 mls/hr Q8H KVNG Administration Protocol Dexamethasone 6 mg/ Syringe 1.5 mls @ 1 mls/min 03/21/23 09:00 03/22/23 08:16 IV 04/20/23 08:59 1 mls/min DAILY KVNG Administration Epinephrine HCl 4 mg in 254 mls @ 3.52 mls/hr 03/20/23 20:30 03/22/23 07:12 IV 04/19/23 20:29 0.06 mcg/kg/min .Q24H KVNG 10.6 mls/hr Titration Protocol 0.02 MCG/KG/MIN Pantoprazole Sodium 40 mg/ 10 mls @ 5 mls/min 03/21/23 11:00 03/22/23 11:20 Syringe IV 04/20/23 10:59 5 mls/min DAILY@1100 KVNG Administration Propofol 1,000 mg in 100 mls @ 6.036 mls/hr 03/21/23 23:15 03/22/23 07:12 Diprivan IV 03/24/23 23:14 20 mcg/kg/min .[id number] KVNG 6 mls/hr Titration Protocol 20 MCG/KG/MIN Midazolam HCl 125 mg in 250 mls @ 2 mls/hr 03/21/23 23:45 03/22/23 07:12 Versed IV 04/20/23 23:44 1 mg/hr .Q96H KVNG 2 mls/hr Titration Protocol 1 MG/HR Insulin Aspart 0 units 03/21/23 08:00 03/22/23 11:37 Insulin Aspart Per Unit Charge SC 04/20/23 07:59 1 units Q4 KVNG Administration Protocol Levothyroxine Sodium 100 mcg 03/22/23 06:30 03/22/23 06:28 Levothyroxine Sodium 100 Mcg Tablet PO 04/21/23 06:29 100 mcg DAILYBB KVNG Administration Miscellaneous 1 each 03/20/23 18:03/22/23 07:34 Icu Electrolyte Replacement Protocol N/A 03/27/23 17:59 Not Given BID@06,18 [facility] Protocol Sterile Water 125 ml 03/21/23 16:00 03/22/23 11:35 Tube Feeding Water Flush OG 04/20/23 15:59 125 ml Q4H [facility] Administration Home Medications Medication Instructions Recorded Confirmed Last Taken levothyroxine 100 mcg tablet 100 mcg PO DAILY #30 tabs 10/20/22 03/20/23 03/20/23 (Synthroid) potassium chloride 10 mEq 10 meq PO DAILY #30 caps 11/02/22 03/20/23 03/20/23 capsule,extended release furosemide 20 mg tablet 20 mg PO BID 02/27/23 03/20/23 03/20/23 08:30 L.acidop,casei,lactis,rham-B.lact,mariama 2 cap PO DAILY 30 days #60 caps 03/16/23 03/20/23 03/20/23 625 mg (10 billion cell) capsule (Advanced Probiotic) calcium carbonate 500 mg-vitamin 2.5 tab PO DAILY 14 days #35 tabs 03/16/23 03/20/23 03/20/23 D3 15 mcg (600 unit) tablet (Os-Edin 500 + D3) dicyclomine 10 mg capsule 10 mg PO TID PRN Abdominal Pain 7 03/16/23 03/20/23 Unknown days #15 caps magnesium oxide 400 mg (241.3 mg 400 mg PO BID 14 days #28 tabs 03/16/23 03/20/23 03/20/23 magnesium) tablet nirmatrelvir 300 mg (150 mg See Rx Instructions PO .COMPLEX 03/16/23 03/20/23 03/20/23 08:30 x2)-ritonavir 100 mg tablet,dose #30 ea pack (Paxlovid) pantoprazole 40 mg tablet,delayed 40 mg PO DAILY 30 days #30 tabs 03/16/23 03/20/23 03/20/23 release vancomycin 125 mg capsule 125 mg PO QID 5 days #20 caps 03/16/23 03/20/23 03/20/23 08:30 acetaminophen 325 mg tablet 650 mg PO UD PRN Fever Or Pain 03/20/23 03/20/23 Unknown acetaminophen 500 mg tablet 1,000 mg PO Q8 PRN Fever Or Pain 03/20/23 03/20/23 Unknown (Tylenol Extra Strength) enoxaparin 40 mg/0.4 mL 40 mg subcut QA 03/20/23 03/20/23 03/20/23 subcutaneous syringe (Lovenox) metoprolol succinate 25 mg 12.5 mg PO QA 03/20/23 03/20/23 03/20/23 tablet,extended release 24 hr umeclidinium 62.5 mcg-vilanterol 1 ea inhalation [facility] 03/20/23 03/20/23 Unknown 25 mcg/actuation powdr for inhalation (Anoro Ellipta)
[2023-03-22] MEDS ORDERED: VALPROATE SOD 2,000 MG in DEXTROSE 5% 100 ML IV STA (12:32)
--- NOTE | 2023-03-22 13:14 | Communication Note ---
Date of Service: March 22, 2023 I had a lengthy discussion with the patient's regarding his 's condition and overall prognosis. He indicates that she would not want to suffer further. I broached the topic of transferring the patient to a tertiary care center for continuous EEG monitoring and further neurology services. He relates that he understands that the patient's condition is progressively getting worse and that she may not have much longer left to live. He is going to talk to a family friend about the possibility of compassionately extubating later today an d get back to us via phone after 5 PM. We also broached the topic of CODE STATUS and he indicated that he would want his to be a DNR in the event of the cardiac arrest. The CODE STATUS has been changed to reflect these wishes.
[2023-03-22] MEDS: propofoL 1,000 MG/100 ML VIAL IV SCH (15:48)
--- NOTE | 2023-03-22 18:50 | Hospitalist Progress Note ---
Date of Service March 22, 2023 Assessment & Plan (1) Aspiration pneumonia: (2) Hypovolemic shock: (3) Hypothermia: (4) Bradycardia: (5) Acute metabolic encephalopathy: (6) Small cell lung cancer in adult: Plan Pt is a critically ill 73 yo female who has a significant past medical history of small cell lung cancer with non-small cell cancer involving the right supraclavicular node, COPD, osteoporosis, hypothyroidism who presents to ED from [facility] secondary to frequent falls and confusion and combative behavior. Circulatory shock Aspiration pneumonia Hypothermia Bradycardia Acute metabolic encephalopathy Admitted to intensive care unit [facility] Operational Test Dr. Walker consulted - initially on dopamine gtt Currently continued nor epi and dopamine Per informatics nurse - Pt with circulatory shock at this time which is somewhat undifferentiated. Suspect an element of sepsis and hypovolemia. Bradycardia was likely due to underlying hypothermia. I suspect the overarching issue is failure to thrive in the context of advanced malignancy and declining performance status. Initially on IV Vanco/Zosyn for aspiration pneumonitis - currently on V zosyn Fluids per ICU --CT head: w/o acute neurologic finding Pt intubated, sedated Ventilator management per informatics nurse blood , urine , sputum culture pending previous urine culture citrobacter which was pansensitive Per informatics nurse- Her CT scan is not consistent with COVID viral pneumonia. She may have an element of aspiration pneumonia. May need MRI, also consider lumbar puncture per ICU EEG (03/21) -consistent with status epilepticus, ICU discussed with neurology and family, family did not wish to transfer to tertiary center. ICU further discussed with neurology, which recommended MRI of brain, the family again declined. Patient's prognosis is very poor, palliative medicine also consulted. She was loaded with Keppra, started on Versed and propofol infusion for burst suppression, per ICU note. 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 Neurology also recommended depakote, poss. transfer to tertiary center for cont. eeg, mri brain, as above. Unfortunately pt's prognosis remains very poor. COVID-19 Positive tested positive upon discharge on 03/16 - continue with IV dexamethasone per ICU which may help with adrenal insufficiency CXR no evidence of viral pneumonia Acute on chronic anemia Baseline hemoglobin around 9 Required 2 units PRBC during most recent hospitalization, blood loss felt likely secondary to acute fracture Hemoglobin stable at 8 although patient likely volume depleted -> Hgb down to 6.9 Follow repeat labs Recent right humerus fracture, age-related osteoporosis with current pathologic fracture status post right reverse TSA on 03/05/2023 -NWB Recent fracture of greater trochanter of right femur, again age-related osteoporosis with current pathologic fracture - WBAT Small Cell Lung Ca On carboplatin and etoposide supplied as well as pegfilgrastim Last treatment was prior to recent hospitalization in February Post surgical hypothyroidism TSH mildly elevated, T4 normal CODE status - DNR/DNI - discussed w/ family and ICU team. Palliative medicine also consulted. Per Dr. Walker's note - pt's is considering the possibility of compassionately extubating the pt later today. Admission and Anticipated Discharge Date Admission Date: March 20, 2023 Subjective Follow-up for septic shock, etc. Patient remains intubated, sedated Remains on Levophed, epi No signs of distress, pain seen w/ RN at the bedside Overnight patient had EEG, and noted to be in status epilepticus. Per report, discussion was held with family, and they did not wish to transfer to tertiary center. Neurology was consulted, and also recommended MRI of brain, which again the family declined. Patient was loaded with keppra, started on versed and propofol - per ICU/ neurology. Review of Systems Review of Systems: Unobtainable due to cognitive status and Unobtainable due to endotracheal tube Physical Exam Physical Exam: General-sedated, i ntubated not in di stress Eyes- ani cteric Neck- no J VD Lungs- +mild b /l rhonchi Heart - normal rate, reg ular rhythm; no mu rmurs Abdomen- no rmal bowel sounds, nondistended, sof t Extremities- no pretibial edema Neuro-sedated Ski n- warm & dry Results & Data Results & Data Vital Signs (Past 12 Hours) Vital Signs Temp Pulse Resp BP Pulse Ox O2 Del Method FiO2 03/22/23 18:00 36.8 C 66 16 98 03/22/23 17:45 36.8 C 71 16 99 03/22/23 17:30 36.8 C 66 16 99 03/22/23 17:29 98/54 L 03/22/23 17:29 36.8 C 65 16 99 03/22/23 17:15 36.9 C 64 16 99 03/22/23 17:00 36.9 C 72 16 99 03/22/23 16:45 37.0 C 66 17 99 03/22/23 16:30 37.0 C 62 17 99 03/22/23 16:29 97/56 L 03/22/23 16:29 37.0 C 70 16 99 03/22/23 16:15 37.1 C 67 17 98 03/22/23 16:14 96/53 L 03/22/23 16:14 37.1 C 64 16 98 03/22/23 16:00 37.1 C 67 17 98 03/22/23 16:00 30 03/22/23 15:59 37.1 C 65 16 99 03/22/23 15:59 97/50 L 03/22/23 15:45 37.1 C 64 17 98 03/22/23 15:44 95/54 L 03/22/23 15:44 37.1 C 65 16 98 03/22/23 15:30 37.2 C 70 17 98 03/22/23 15:29 91/53 L 03/22/23 15:29 37.2 C 66 16 98 03/22/23 15:24 66 16 98 30 03/22/23 15:15 37.2 C 68 17 98 03/22/23 15:14 37.2 C 70 16 98 03/22/23 15:14 98/56 L 03/22/23 15:00 37.2 C 74 17 98 03/22/23 14:59 96/55 L 03/22/23 14:59 37.2 C 67 16 98 03/22/23 14:52 69 03/22/23 14:45 37.3 C 78 17 98 03/22/23 14:44 103/50 L 03/22/23 14:44 37.3 C 68 16 98 03/22/23 14:30 37.3 C 66 17 99 03/22/23 14:29 97/50 L 03/22/23 14:29 37.3 C 66 16 99 03/22/23 14:15 37.3 C 70 17 98 03/22/23 14:14 90/51 L 03/22/23 14:14 37.3 C 72 16 98 03/22/23 14:00 37.3 C 71 17 98 03/22/23 13:59 37.3 C 71 16 98 01/17/24 13:59 89/44 L 03/22/23 13:45 37.4 C 72 17 99 03/22/23 13:44 92/51 L 03/22/23 13:44 37.4 C 71 16 99 03/22/23 13:30 37.4 C 72 17 99 03/22/23 13:29 92/56 L 03/22/23 13:29 37.4 C 72 16 99 03/22/23 13:15 37.5 C 75 17 99 03/22/23 13:14 92/51 L 03/22/23 13:14 37.5 C 69 16 99 03/22/23 13:00 37.6 C H 72 17 99 03/22/23 12:59 101/53 L 03/22/23 12:59 37.6 C H 71 17 99 03/22/23 12:45 37.6 C H 73 14 99 03/22/23 12:44 93/53 L 03/22/23 12:44 37.6 C H 68 18 99 03/22/23 12:30 37.6 C H 72 14 99 03/22/23 12:29 37.6 C H 75 16 99 03/22/23 12:29 91/52 L 03/22/23 12:15 37.7 C H 78 16 98 03/22/23 12:14 98/59 L 03/22/23 12:14 37.7 C H 85 16 98 03/22/23 12:00 37.7 C H 72 16 98 03/22/23 12:00 30 03/22/23 11:59 37.7 C H 74 16 98 03/22/23 11:59 94/54 L 03/22/23 11:45 37.7 C H 74 16 98 03/22/23 11:44 94/51 L 03/22/23 11:44 37.7 C H 75 16 98 03/22/23 11:32 81 16 98 30 03/22/23 11:30 37.7 C H 74 16 98 03/22/23 11:29 95/53 L 03/22/23 11:29 37.7 C H 74 16 98 03/22/23 11:15 37.5 C 78 16 98 03/22/23 11:14 92/55 L 03/22/23 10:00 36.6 C 79 16 98 03/22/23 09:59 36.6 C 70 16 98 03/22/23 09:59 101/60 03/22/23 09:45 36.4 C L 69 16 98 03/22/23 09:44 107/59 L 03/22/23 09:44 36.4 C L 70 16 98 03/22/23 09:30 36.2 C L 69 16 98 03/22/23 09:29 103/59 L 03/22/23 09:29 36.1 C L 70 16 98 03/22/23 09:15 35.9 C L 65 17 98 03/22/23 09:14 104/53 L 03/22/23 09:14 35.9 C L 68 16 98 03/22/23 09:00 35.7 C L 70 17 98 03/22/23 08:59 102/59 L 03/22/23 08:59 35.7 C L 68 16 98 03/22/23 08:49 64 03/22/23 08:45 35.5 C L 67 17 99 03/22/23 08:44 35.5 C L 68 16 99 03/22/23 08:44 108/68 03/22/23 08:30 Mechanical Vent 30 03/22/23 08:30 35.4 C L 60 17 99 03/22/23 08:29 119/63 03/22/23 08:29 35.3 C L 68 16 99 03/22/23 08:29 30 03/22/23 08:15 35.3 C L 63 17 99 03/22/23 08:14 107/64 03/22/23 08:14 35.3 C L 66 16 99 03/22/23 08:00 35.2 C L 56 L 16 98 03/22/23 08:00 Mechanical Vent 30 03/22/23 07:59 35.3 C L 54 L 16 98 03/22/23 07:59 112/62 03/22/23 07:45 35.3 C L 61 16 98 03/22/23 07:44 113/56 L 03/22/23 07:44 35.3 C L 55 L 16 99 03/22/23 07:30 35.4 C L 66 16 99 03/22/23 07:29 111/60 03/22/23 07:29 35.4 C L 66 16 99 03/22/23 07:15 35.4 C L 54 L 16 99 03/22/23 07:14 112/60 03/22/23 07:14 35.4 C L 55 L 16 99 03/22/23 07:13 59 L 16 99 30 03/22/23 07:00 35.5 C L 55 L 16 99 03/22/23 06:59 108/54 L 03/22/23 06:59 35.5 C L 55 L 16 99 Laboratory Results 03/22/23 03/22/23 03/22/23 Range/Units 16:07 11:35 10:03 WBC (4.8-10.8) K/ul RBC (4.20-5.40) M/uL Hgb (12.0-16.0) g/dl POC Hgb (12.0-16.0) g/dl Hct (37.0-47.0) % POC Hct (37-47) % MCV (80.0-100.0) fL MCH (25.0-34.0) pg MCHC (32.0-36.0) g/dL RDW Std Deviation (36.4-46.3) fL RDW Coeff of Minal (11.5-14.5) % Plt Count (130-400) K/uL MPV (9.4-12.4) fL Immature Gran % (Auto) % Neut % (Auto) % Lymph % (Auto) % [place] % (Auto) % Eos % (Auto) % Baso % (Auto) % Neut # (Auto) (1.40-6.50) K/uL Lymph # (Auto) (1.20-3.40) K/uL [place] # (Auto) (0.11-0.59) K/uL Eos # (Auto) (0.00-0.50) K/uL Baso # (Auto) (0.00-0.20) K/uL Immature Gran # (Auto) (0.01-0.20) K/uL RBC Morphology Sample Site POC pH (7.35-7.45) POC pCO2 (35-46) mmHg POC pO2 (80-95) mmHg POC HCO3 (19-24) paradise/L POC Total CO2 (24-31) mmol/L POC Base Excess (-9-1.8) paradise/L ABG pH (Temp Correct) (7.35-7.45) ABG pCO2 (Temp Corrct (35-46) mmHg POC ABG pO2 at Pt Temp POC ABG O2 Sat (90-95) % Aniket Test O2 Delivery Device POC O2 Rate POC FiO2 % Tidal Volume PEEP POC Sodium (135-144) mmol/L Sodium (136-145) mmol/L POC Potassium (3.3-5.0) mmol/L Potassium (3.5-5.1) mmol/L Chloride (98-107) mmol/L Carbon Dioxide (21-32) mmol/L Anion Gap (3-11) BUN (6-23) mg/dl Creatinine (0.6-1.2) mg/dl Est Cr Clr Drug Dosing ml/min Est GFR ( Amer) ml/min Est GFR (Non-Af Amer) ml/min BUN/Creatinine Ratio (10-20) Glucose (70-99(Fasting)) mg/dl POC Glucose (other) 132 H 156 H (70-99) mg/dl Lactate (0.4-2.0) mmol/L Calcium (8.6-10.3) mg/dl Ionized Calcium 1.17 (1.12-1.32) mmol/L Phosphorus (2.5-4.9) mg/dl Magnesium (1.7-2.4) mg/dl PTH Intact 48.7 (12.0-88.0) pg/ml 03/22/23 03/22/23 03/22/23 Range/Units 07:54 07:47 03:48 WBC 13.74 H 15.05 H (4.8-10.8) K/ul RBC 2.32 L 2.22 L (4.20-5.40) M/uL Hgb 6.9 L* 6.6 L* (12.0-16.0) g/dl POC Hgb (12.0-16.0) g/dl Hct 21.9 L 21.0 L (37.0-47.0) % POC Hct (37-47) % MCV 94.4 94.6 (80.0-100.0) fL MCH 29.7 29.7 (25.0-34.0) pg MCHC 31.5 L 31.4 L (32.0-36.0) g/dL RDW Std Deviation 53.1 H 53.6 H (36.4-46.3) fL RDW Coeff of Minal 18.7 H 18.8 H (11.5-14.5) % Plt Count 269 286 (130-400) K/uL MPV 9.3 L 9.6 (9.4-12.4) fL Immature Gran % (Auto) 1.0 % Neut % (Auto) 92.5 % Lymph % (Auto) 5.1 % [place] % (Auto) 1.3 % Eos % (Auto) 0.0 % Baso % (Auto) 0.1 % Neut # (Auto) 13.92 H (1.40-6.50) K/uL Lymph # (Auto) 0.77 L (1.20-3.40) K/uL [place] # (Auto) 0.19 (0.11-0.59) K/uL Eos # (Auto) 0.00 (0.00-0.50) K/uL Baso # (Auto) 0.02 (0.00-0.20) K/uL Immature Gran # (Auto) 0.15 (0.01-0.20) K/uL RBC Morphology Unremarkable Sample Site POC pH (7.35-7.45) POC pCO2 (35-46) mmHg POC pO2 (80-95) mmHg POC HCO3 (19-24) paradise/L POC Total CO2 (24-31) mmol/L POC Base Excess (-9-1.8) paradise/L ABG pH (Temp Correct) (7.35-7.45) ABG pCO2 (Temp Corrct (35-46) mmHg POC ABG pO2 at Pt Temp POC ABG O2 Sat (90-95) % Aniket Test O2 Delivery Device POC O2 Rate POC FiO2 % Tidal Volume PEEP POC Sodium (135-144) mmol/L Sodium (136-145) mmol/L POC Potassium (3.3-5.0) mmol/L Potassium (3.5-5.1) mmol/L Chloride (98-107) mmol/L Carbon Dioxide (21-32) mmol/L Anion Gap (3-11) BUN (6-23) mg/dl Creatinine (0.6-1.2) mg/dl Est Cr Clr Drug Dosing ml/min Est GFR ( Amer) ml/min Est GFR (Non-Af Amer) ml/min BUN/Creatinine Ratio (10-20) Glucose (70-99(Fasting)) mg/dl POC Glucose (other) 156 H (70-99) mg/dl Lactate (0.4-2.0) mmol/L Calcium (8.6-10.3) mg/dl Ionized Calcium (1.12-1.32) mmol/L Phosphorus (2.5-4.9) mg/dl Magnesium (1.7-2.4) mg/dl PTH Intact (12.0-88.0) pg/ml 03/22/23 03/22/23 03/21/23 Range/Units 03:47 02:57 23:44 WBC (4.8-10.8) K/ul RBC (4.20-5.40) M/uL Hgb (12.0-16.0) g/dl POC Hgb 6.1 L* (12.0-16.0) g/dl Hct (37.0-47.0) % POC Hct 18 L* (37-47) % MCV (80.0-100.0) fL MCH (25.0-34.0) pg MCHC (32.0-36.0) g/dL RDW Std Deviation (36.4-46.3) fL RDW Coeff of Minal (11.5-14.5) % Plt Count (130-400) K/uL MPV (9.4-12.4) fL Immature Gran % (Auto) % Neut % (Auto) % Lymph % (Auto) % [place] % (Auto) % Eos % (Auto) % Baso % (Auto) % Neut # (Auto) (1.40-6.50) K/uL Lymph # (Auto) (1.20-3.40) K/uL [place] # (Auto) (0.11-0.59) K/uL Eos # (Auto) (0.00-0.50) K/uL Baso # (Auto) (0.00-0.20) K/uL Immature Gran # (Auto) (0.01-0.20) K/uL RBC Morphology Sample Site Art Line POC pH 7.45 (7.35-7.45) POC pCO2 31 L (35-46) mmHg POC pO2 76 L (80-95) mmHg POC HCO3 21 (19-24) paradise/L POC Total CO2 22 L (24-31) mmol/L POC Base Excess -3.0 (-9-1.8) paradise/L ABG pH (Temp Correct) 7.460 H (7.35-7.45) ABG pCO2 (Temp Corrct 30 L (35-46) mmHg POC ABG pO2 at Pt Temp 73 POC ABG O2 Sat 96.0 H (90-95) % Aniket Test Pass O2 Delivery Device Ventilator POC O2 Rate 16 POC FiO2 30 % Tidal Volume 370 PEEP 5 POC Sodium 138 (135-144) mmol/L Sodium 138 (136-145) mmol/L POC Potassium 4.7 (3.3-5.0) mmol/L Potassium 4.9 (3.5-5.1) mmol/L Chloride 108 H (98-107) mmol/L Carbon Dioxide 23 (21-32) mmol/L Anion Gap 7 (3-11) BUN 22 (6-23) mg/dl Creatinine 0.97 (0.6-1.2) mg/dl Est Cr Clr Drug Dosing 41.0 ml/min Est GFR ( Amer) 67.2 ml/min Est GFR (Non-Af Amer) 57.9 ml/min BUN/Creatinine Ratio 22.7 H (10-20) Glucose 142 H (70-99(Fasting)) mg/dl POC Glucose (other) 122 H (70-99) mg/dl Lactate (0.4-2.0) mmol/L Calcium 6.8 L (8.6-10.3) mg/dl Ionized Calcium (1.12-1.32) mmol/L Phosphorus 4.8 (2.5-4.9) mg/dl Magnesium 2.5 H (1.7-2.4) mg/dl PTH Intact (12.0-88.0) pg/ml 03/21/23 03/21/23 Range/Units 23:13 20:17 WBC (4.8-10.8) K/ul RBC (4.20-5.40) M/uL Hgb (12.0-16.0) g/dl POC Hgb (12.0-16.0) g/dl Hct (37.0-47.0) % POC Hct (37-47) % MCV (80.0-100.0) fL MCH (25.0-34.0) pg MCHC (32.0-36.0) g/dL RDW Std Deviation (36.4-46.3) fL RDW Coeff of Minal (11.5-14.5) % Plt Count (130-400) K/uL MPV (9.4-12.4) fL Immature Gran % (Auto) % Neut % (Auto) % Lymph % (Auto) % [place] % (Auto) % Eos % (Auto) % Baso % (Auto) % Neut # (Auto) (1.40-6.50) K/uL Lymph # (Auto) (1.20-3.40) K/uL [place] # (Auto) (0.11-0.59) K/uL Eos # (Auto) (0.00-0.50) K/uL Baso # (Auto) (0.00-0.20) K/uL Immature Gran # (Auto) (0.01-0.20) K/uL RBC Morphology Sample Site POC pH (7.35-7.45) POC pCO2 (35-46) mmHg POC pO2 (80-95) mmHg POC HCO3 (19-24) paradise/L POC Total CO2 (24-31) mmol/L POC Base Excess (-9-1.8) paradise/L ABG pH (Temp Correct) (7.35-7.45) ABG pCO2 (Temp Corrct (35-46) mmHg POC ABG pO2 at Pt Temp POC ABG O2 Sat (90-95) % Aniket Test O2 Delivery Device POC O2 Rate POC FiO2 % Tidal Volume PEEP POC Sodium (135-144) mmol/L Sodium (136-145) mmol/L POC Potassium (3.3-5.0) mmol/L Potassium (3.5-5.1) mmol/L Chloride (98-107) mmol/L Carbon Dioxide (21-32) mmol/L Anion Gap (3-11) BUN (6-23) mg/dl Creatinine (0.6-1.2) mg/dl Est Cr Clr Drug Dosing ml/min Est GFR ( Amer) ml/min Est GFR (Non-Af Amer) ml/min BUN/Creatinine Ratio (10-20) Glucose (70-99(Fasting)) mg/dl POC Glucose (other) 147 H (70-99) mg/dl Lactate 0.7 (0.4-2.0) mmol/L Calcium (8.6-10.3) mg/dl Ionized Calcium (1.12-1.32) mmol/L Phosphorus (2.5-4.9) mg/dl Magnesium (1.7-2.4) mg/dl PTH Intact (12.0-88.0) pg/ml Medications Administered Current Inpatient Medications Acetaminophen (Acetaminophen 325 Mg Tab) 650 mg PO Q4H PRN PRN Reason: Fever Stop: 04/20/23 02:17 Dextrose (Dextrose 50% 50 Ml Syringe) 25 - 50 ml IV UD PRN; Protocol PRN Reason: Hypoglycemia Protocol Stop: 04/20/23 02:27 Enteral Nutritional Formula (Peptamen 1.5 Edin 1,000 Ml Bag) 1,000 ml OG .See Protocol [facility]; Protocol Stop: 04/20/23 15:14 Last Admin: 03/21/23 15:49 Dose: 1,000 ml Glucagon (Glucagon For Inj 1 Mg Vial) 1 mg SQ UD PRN; Protocol PRN Reason: Hypoglycemia Protocol Stop: 04/20/23 02:27 Glucose (Glucose 10 Tab/Tube) 4 - 8 tab PO UD PRN; Protocol PRN Reason: Hypoglycemia Treatment Stop: 04/20/23 02:27 Glucose (Glucose 40% Gel 15 Gm Tube) 15 - 30 gm PO UD PRN; Protocol PRN Reason: Hypoglycemia Protocol Stop: 04/20/23 02:27 Heparin Sodium (Beef Lung) (Heparin 10 Unit/Ml 5 Ml Flush) 5 ml FLUSH PRN PRN PRN Reason: Flush Stop: 04/20/23 01:15 Norepinephrine Bitartrate (Levophed/D5w) 4 mg in 250 mls @ 5.929 mls/hr IV .Q24H [facility]; Protocol Stop: 04/19/23 14:29 Last Titration: 03/22/23 07:12 Dose: 0.03 mcg/kg/min, 5.9 mls/hr Piperacillin Sod/Tazobactam (Sod 4.5 gm/ Dextrose) 100 mls @ 25 mls/hr IV Q8H [facility]; Protocol Stop: 03/27/23 16:59 Last Admin: 03/22/23 16:21 Dose: 25 mls/hr Dexamethasone 6 mg/ Syringe 1.5 mls @ 1 mls/min IV DAILY [facility] Stop: 04/20/23 08:59 Last Admin: 03/22/23 08:16 Dose: 1 mls/min Epinephrine HCl () 4 mg in 254 mls @ 3.52 mls/hr IV .Q24H [facility]; Protocol Stop: 04/19/23 20:29 Last Titration: 03/22/23 11:57 Dose: 0.05 mcg/kg/min, 8.8 mls/hr Pantoprazole Sodium 40 mg/ (Syringe) 10 mls @ 5 mls/min IV DAILY@1100 [facility] Stop: 04/20/23 10:59 Last Admin: 03/22/23 11:20 Dose: 5 mls/min Propofol (Diprivan) 1,000 mg in 100 mls @ 6.036 mls/hr IV .[id number] [facility]; Protocol Stop: 03/24/23 23:14 Last Admin: 03/22/23 15:48 Dose: 20 mcg/kg/min, 6 mls/hr Midazolam HCl (Versed) 125 mg in 250 mls @ 2 mls/hr IV .Q96H [facility]; Protocol Stop: 04/20/23 23:44 Last Titration: 03/22/23 07:12 Dose: 1 mg/hr, 2 mls/hr Levetiracetam 1,500 mg/ Sodium (Chloride) 115 mls @ 420 mls/hr IV Q12H [facility] Stop: 04/21/23 20:59 Valproic Acid 500 mg/ Dextrose 55 mls @ 55 mls/hr IV Q12H [facility] Stop: 04/22/23 00:00 Insulin Aspart (Insulin Aspart Per Unit Charge) 0 units SC Q4 [facility]; Protocol Stop: 04/20/23 07:59 Last Admin: 03/22/23 16:06 Dose: Not Given Levothyroxine Sodium (Levothyroxine Sodium 100 Mcg Tablet) 100 mcg PO DAILYBB [facility] Stop: 04/21/23 06:29 Last Admin: 03/22/23 06:28 Dose: 100 mcg Midazolam HCl (Midazolam Bolus From Bag) 2 mg IV Q60M PRN PRN Reason: Seizure activity Stop: 04/20/23 23:39 Miscellaneous (Icu Electrolyte Replacement Protocol) 1 each N/A BID@06,18 [facility]; Protocol Stop: 03/27/23 17:59 Last Admin: 03/22/23 18:37 Dose: Not Given Miscellaneous (Carbohydrates For Hypoglycemia ) 15 - 30 gm PO UD PRN PRN Reason: Hypoglycemia Protocol Stop: 04/20/23 02:27 Miscellaneous Information (Pharmacy Glycemic Mgmt Consult) 1 each N/A UD PRN PRN Reason: Consult Stop: 04/20/23 02:27 Propofol (Propofol Bolus From Bag) 20 mg IV Q5M PRN PRN Reason: Seizure activity Stop: 03/24/23 23:12 Sterile Water (Tube Feeding Water Flush) 125 ml OG Q4H [facility] Stop: 04/20/23 15:59 Last Admin: 03/22/23 16:07 Dose: 125 ml (1) Aspiration pneumonia Aspiration pneumonia type: unspecified Laterality: unspecified laterality Lung location: unspecified part of lung Qualified Code(s): J69.0 - Pneumonitis due to inhalation of food and vomit
[2023-03-22] MEDS ORDERED: ONDANSETRON INJ 2 MG/ML 2 ML VIAL IV PRN (19:46)
[2023-03-22] MEDS ORDERED: LORazepam 0.5 MG TAB PO PRN (19:46)
[2023-03-22] MEDS ORDERED: LORazepam 0.5 MG in SYRINGE 0.25 ML IV PRN (19:46)
[2023-03-22] MEDS ORDERED: ONDANSETRON 4 MG OD TAB SL PRN (19:46)
[2023-03-22] MEDS ORDERED: HYDROmorphone BOLUS from BAG IV PRN (19:46)
[2023-03-22] MEDS ORDERED: HYDROmorphone/NSS 100 MG/100 ML BAG IV SCH (20:00)
--- NOTE | 2023-03-22 20:17 | Communication Note ---
Date of Service: March 22, 2023 Was informed by the patient's nurse that the had called and wanted to discuss withdrawal of care with the provider. I did contact the patient's , Michael Funk, who has previously spoken with Dr. Melaar earlier today about the patient's prognosis. Mr. Funk states that due to her poor prognosis and unlikeliness of meaningful recovery, he would like to proceed with withdrawal of care and transition to comfort measures. He would like to be notified when she passes. At this time we will proceed with palliative extubation with assistance of analgesics to ensure comfort. Coding Level of Care Code None
[2023-03-22] MEDS ORDERED: MINI B IV SCH (21:00)
[2023-03-22] MEDS ORDERED: SODIUM CHLOR 0.9% IV SCH (21:00)
[2023-03-22] MEDS ORDERED: levETIRAcetam 500 MG in SODIUM CHLOR 0.9% MINI-B 100 ML IV SCH (21:00)
[2023-03-22] MEDS ORDERED: LEVETIRACETAM IV SCH (21:00)
[2023-03-22] MEDS ORDERED: levETIRAcetam 750 MG in 0.9 % SODIUM CHLORIDE 100 ML IV SCH (21:00)
--- NOTE | 2023-03-22 21:13 | Death Pronouncement Note ---
Date of Service March 22, 2023 Pronouncement Note Admission Date Admission Date: March 20, 2023 PRONOUNCEMENT NOTE - Date: 03/22/2023 Time: 2104 I was contacted by nursing staff regarding the patients declining status and concerns for imminent demise. In short, patient was admitted with septic shock and respiratory failure and was mechanically ventilated. She had developed status epilepticus on this admission. She had underlying diagnosis of metastatic lung cancer, and was being followed with palliative care. This evening, patient's elected to transition the patient to comfort measures only. Following palliative extubation, patient soon . Assessment: I presented to the patients room for evaluation. Upon assessment, the patient was found to be in a terminal state. Pupils were fixed and dilated without response. No palpable pulses appreciated. No spontaneous breaths noted. Heart sounds were absent. No response to painful stimuli. Time of : 2104 as pronounced by myself. Patient's family notified via phone. No family at bedside at time of . Patients primary service was contacted and made aware of patient demise. Pronouncement section of the Certificate was filled out and signed by mys elf. Cause of : Primary -septic shock Secondary - aspiration pneumonia Contributing Causes of -status epilepticus, aspiration pneumonia, small cell lung cancer Please feel free to contact me with any questions regarding the above-mentioned course. Contributing Factors (1) Aspiration pneumonia: (2) Hypovolemic shock: (3) Hypothermia: (4) Bradycardia: (5) Acute metabolic encephalopathy: (6) Small cell lung cancer in adult: Additional Data Attending physician: Kirby Henriquez MD Coding Level of Care Code None Diagnoses Aspiration pneumonia, unspecified aspiration pneumonia type, unspecified laterality, unspecified part of lung J69.0 Aspiration pneumonia type: unspecified Laterality: unspecified laterality Lung location: unspecified part of lung Hypovolemic shock R57.1 Hypothermia T68.XXXA Bradycardia R00.1 Acute metabolic encephalopathy G93.41 Small cell lung cancer in adult C34.90
[2023-03-23] MEDS ORDERED: VALPROATE SOD 500 MG in DEXTROSE 5% 50 ML IV SCH
--- NOTE | 2023-03-23 18:49 | Discharge Summary ---
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 Of significance patient was recently hospitalized 02/27 to 03/16/2023 secondary to metabolic encephalopathy, circulatory shock, septic shock in setting of UTI, symptomatic anemia with a hemoglobin of 6.5 status post 2 units PRBC and TAMIKO admitted to ICU on Levophed, and IV Zosyn. On admission patient was found to have a right femur fracture as well as a right humeral fracture. She underwent reverse total shoulder arthroplasty on 03/05/2023. She is nonweightbearing to the right upper extremity. Her right greater trochanteric fracture at this time was deemed as a subacute and she was made weightbearing as tolerated. She did not undergo surgical fixation for this. Her hospital stay was complicated with C. difficile and when she was placed on oral Vanco on 03/08. Also upon discharge she incidentally tested positive for COVID-19. She has been to rehab for 4 days now and was sent back today due to frequent falls and increased confusion. Unable to obtain ROS from patient as she is obtunded. History obtained from ED providers. Discussed case with critical care provider at bedside. patient arrived to ER she was trying to bite staff and was not following any commands. Upon arrival patient was found to be hypothermic, hypotensive and bradycardic. Her hypotension did not respond to fluid boluses and therefore she was started on nor epi. She had a left femoral central line placed. So far she has received IV vancomycin and IV Zosyn. Lab work notable for a mild respiratory acidosis but otherwise a CBC and CMP generally unremarkable. Her hemoglobin is stable at 8. Her procalcitonin is negative. Urine suspicious for UTI. Chest x-ray per my review reveals a right lower lobe consolidation. Chest CT also ev idence of aspiration pneumonitis. Her TSH was mildly elevated but improved from previous but T4 is normal. Admission Exam Per Admitting Provider Constitutional: WD/WN, Critically ill F, obtunded, GCS 5, vitals as above Head: Normocephalic, Atraumatic Eyes: pupils dilated, minimally reactive, conjunctivae normal, anicteric sclerae ENMT: external ear and nose normal, oropharynx normal dry membranes, Mouth in open position Neck: trachea midline, no thyromegaly normal visual inspection Respiratory: normal respiratory effort, b/l crackles heard throughout, R > L, . On O2 via NC. Normal insp/exp effort, no accessory muscle use Cardiovascular: bradycardic rate, reg rhythm, no murmur, +1 ankle edema Vessels: no JVD or carotid bruit Chest: normal inspection of chest Abdomen: normal bowel sounds, soft, nontender Musculoskeletal: L femoral line, R should NVI, with bruising ecchymosis, incision well healed, central area that is crusted over/healing Skin: no rashes, warm and dry normal turgor Neurologic: unable to assess due to mental status Psychiatric: Not alert, withdrawals to painful stimuli, euthymic affect Lymphatic: no cervical or axillary lymphadenopathy : deferred Discharge Exam Pupils were fixed and dilated without response. No palpable pulses appreciated. No spontaneous breaths noted. Heart sounds were absent. No response to painful stimuli. Time of : 21:05 Pronounced by Kushal Bello. Discharge Data Allergies Allergy/AdvReac Type Severity Reaction Status Date / Time adhesive tape Allergy Unknown Redness of Verified 10/24/22 16:26 Skin morphine Allergy Unknown shock, Verified 10/17/22 08:28 dspnea neomycin Allergy Unknown Unknown Verified 10/24/22 16:26 Consultations 03/20/23 15:53 Consult Ophthalmic Surgeon Stat ED Decision to Admit Stat 03/21/23 08:22 Consult Palliative Care Routine 03/21/23 23:35 Consult Neurology Routine Ordered Studies 03/20/23 12:31 CT abd pelvis wo con Stat FINDINGS: Lower chest: No acute abnormality. Liver: Portal venous gas is seen. Gallbladder and biliary tree: No calcified gallstones. Normal caliber wall. No intra- or extrahepatic biliary ductal dilation. Pancreas: Unremarkable, no focal lesions. Spleen: Unremarkable. Adrenals: Unremarkable. Kidneys and ureters: Nonobstructive stones are seen. Right collecting system prominence is similar in appearance to prior exam. Bladder: Delcid catheter is seen. Reproductive organs: Unremarkable. Bowel: The appendix is normal. Lymph nodes Retroperitoneal: Unremarkable. Pelvic: Unremarkable. Mesenteric: Unremarkable. Peritoneum: Trace free fluid in the pelvis is likely physiologic. Vessels: Atherosclerotic calcifications are seen. Left femoral venous catheter is seen. Abdominal wall: Unremarkable. Bones: There is an acute fracture of the right femur involving the greater t rochanter. Posterior fixation hardware is seen in the lumbar spine spanning L3- L4. Left femoral hardware is seen. IMPRESSION: 1. Right greater trochanter fracture. The femoral neck and shaft appear grossly intact. 2. Portal venous gas may be secondary to venous injections patient with a left femoral venous catheter. 3. Additional findings as above. CT cervical spine wo con Stat FINDINGS: Fluid levels within the left maxillary sinus and sphenoid sinus are better appreciated on the same day head CT. There is a small left mastoid effusion also noted. Biapical nodular densities persist and favor scarring. There is progressive interlobular septal thickening suggestive of pulmonary edema. No pneumothorax. The thyroid gland appears surgically absent. Moderate to severe disc space narrowing at C5-C6 and C6-C7. Moderate disc space narrowing at C4-C5 with 2 mm of anterolisthesis. This is likely due to the long-standing degenerative change. Prevertebral soft tissues and the C1-C2 interval are intact. IMPRESSION: No fractures within the cervical spine. Additional findings as described above. CT chest diagnostic wo con Stat FINDINGS: Lungs and pleura: Small bilateral pleural effusions are seen. Airspace opacities and bronchial wall thickening are noted in the bilateral lower lungs. Heart and pericardium: Heart size is normal. No pericardial effusion. Vessels: Gas is noted in the right atrium and pulmonary trunk. Mediastinum and jeane: Subcentimeter lymph nodes are seen. Chest wall and lower neck: Subcentimeter axillary lymph nodes noted. Abdomen: For findings below the diaphragm, please refer to CT of the abdomen dated the same. Bones: Degenerative changes in the thoracic spine. IMPRESSION: 1. Bilateral pleural effusions and airspace opacities may represent atelectasis, pneumonia, and/or aspiration. 2. Prominent gas is in the portal vein and pulmonary trunk and right atrium. This may represent venous injection. CT head/brain wo con Stat FINDINGS: Mildly motion degraded exam. No acute intracranial hemorrhage, midline shift, intracranial mass, hydrocephalus, territorial ischemia or abnormal extra-axial collection. Involutional changes with suggestion of mild chronic microvascular ischemic disease. The calvarium is intact. Small left mastoid effusion. Moderate mucosal thickening of the ethmoid air cells, left maxillary and sphenoid sinuses with maxillary and sphenoid air fluid levels. Unremarkable soft tissues and orbits. IMPRESSION: No acute intracranial abnormality. 03/21/23 02:46 US venous doppler LE BI Urgent US venous doppler UE RT Urgent Hospital Course (1) Aspiration pneumonia: (2) Hypovolemic shock: (3) Hypothermia: (4) Bradycardia: (5) Acute metabolic encephalopathy: (6) Small cell lung cancer in adult: Plan Pt is a critically ill 73 yo female who has a significant past medical history of small cell lung cancer with non-small cell cancer involving the right supraclavicular node, COPD, osteoporosis, hypothyroidism who presents to ED from [facility] secondary to frequent falls and confusion and combative behavior. Circulatory shock Aspiration pneumonia Hypothermia Bradycardia Acute metabolic encephalopathy Admitted to intensive care unit Ophthalmic Surgeon Dr. Walker consulted - initially on dopamine gtt Currently continued nor epi and dopamine Per tubing oiler - Pt with circulatory shock at this time which is somewhat undifferentiated. Suspect an element of sepsis and hypovolemia. Bradycardia was likely due to underlying hypothermia. I suspect the overarching issue is failure to thrive in the context of advanced malignancy and declining performance status. Initially on IV Vanco/Zosyn for aspiration pneumonitis - currently on V zosyn Fluids per ICU --CT head: w/o acute neurologic finding Pt intubated, sedated Ventilator management per tubing oiler blood , urine , sputum culture pending previous urine culture citrobacter which was pansensitive Per tubing oiler- Her CT scan is not consistent with COVID viral pneumonia. She may have an element of aspiration pneumonia. May need MRI, also consider lumbar puncture per ICU EEG (03/21) -consistent with status epilepticus, ICU discussed with neurology and family, family did not wish to transfer to tertiary center. ICU further discussed with neurology, which recommended MRI of brain, the family again declined. Patient's prognosis is very poor, palliative medicine also consulted. She was loaded with Keppra, started on Versed and propofol infusion for burst suppression, per ICU note. 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 Neurology also recommended depcorazonte, poss. transfer to tertiary center for cont. eeg, mri brain, as above. Unfortunately pt's prognosis remains very poor. COVID-19 Positive tested positive upon discharge on 03/16 - continue with IV dexamethasone per ICU which may help with adrenal insufficiency CXR no evidence of viral pneumonia Acute on chronic anemia Baseline hemoglobin around 9 Required 2 units PRBC during most recent hospitalization, blood loss felt likely secondary to acute fracture Hemoglobin stable at 8 although patient likely volume depleted -> Hgb down to 6.9 Follow repeat labs Recent right humerus fracture, age-related osteoporosis with current pathologic fracture status post right reverse TSA on 03/05/2023 -NWB Recent fracture of greater trochanter of right femur, again age-related osteoporosis with current pathologic fracture - WBAT Small Cell Lung Ca On carboplatin and etoposide supplied as well as pegfilgrastim Last treatment was prior to recent hospitalization in February Post surgical hypothyroidism TSH mildly elevated, T4 normal CODE status - DNR/DNI - discussed w/ family and ICU team. Palliative medicine also consulted. Per Dr. Walker's note - pt's is considering the possibility of compassionately extubating the pt later today. Discharge Plan Discharge Items Patient Disposition: Other Date/Time: 03/22/23 21:05
--- NOTE | 2023-03-24 06:43 | Electrocardiogram Report ---
Test Reason : Blood Pressure : / mmHG Vent. Rate : 086 BPM Atrial Rate : 086 BPM P-R Int : 162 ms QRS Dur : 078 ms QT Int : 424 ms P-R-T Axes : 084 064 086 degrees QTc Int : 508 ms Sinus rhythm with Fusion complexes Low voltage QRS Cannot rule out Anterior infarct (cited on or before 20-MAR-2023) Prolonged QT Abnormal ECG When compared with ECG of 20-Mar-2023 20:05, Premature atrial complexes are no longer Present Confirmed by Guillermo Jackson ([id number]) on 03/24/2023 6:43:45 AM Referred By: [facility] Confirmed By:Guillermo Jackson
--- NOTE | 2023-03-24 21:33 | Electrocardiogram Report ---
Test Reason : Blood Pressure : / mmHG Vent. Rate : 062 BPM Atrial Rate : 062 BPM P-R Int : 208 ms QRS Dur : 082 ms QT Int : 450 ms P-R-T Axes : 084 054 050 degrees QTc Int : 456 ms Sinus rhythm with sinus arrhythmia with occasional Premature ventricular complexes Low voltage QRS Cannot rule out Anterior infarct (cited on or before 20-MAR-2023) Abnormal ECG When compared with ECG of 21-MAR-2023 06:04, Premature ventricular complexes are now Present Confirmed by Guillermo Jackson ([id number]) on 03/24/2023 9:32:36 PM Referred By: [facility] Confirmed By:Guillermo Jackson
== END 2023-03-22 22:22 | disposition expired | DRG 208 ==
LOC: ED 11:59 → SUATTDRO 16:01 → 1E 16:01